=== PATIENT | male | born 1955 | race Caucasian/White ===

== ENCOUNTER 2017-10-30 14:24 | Emergency (ER) | payer MEDICAID, SELFPAY ==
[2017-10-30 14:25] VITALS: BP 147/99; PULSE 78; PULSE 83; RESP 16; TEMP 36.6; O2SAT 98; O2SAT 99; BMI 27.6
--- NOTE | 2017-10-30 14:42 | RAD_ITS ---
STUDY: X-RAY CHEST REASON FOR EXAM: Male, 62 years old. Palpitations TECHNIQUE: Single AP portable view of the chest. COMPARISON: June 13, 2013 FINDINGS: Pacemaker device on the left is stable The lungs are clear and hyper expanded. There is no demonstrated pleural abnormality. Normal size heart. Normal mediastinum and mady. Normal visualized pulmonary arteries. Normal visualized aortic arch and descending thoracic aorta. There are diffuse degenerative changes of the visualized thoracic spine. Normal visualized ribs, clavicles, and shoulders. There is no demonstrated abnormality of the visualized soft tissue structures of the upper abdomen. RAD/Chest 1 View (Portable) IMPRESSION: Degenerative changes, as described above. No demonstrated acute cardiopulmonary process. Electronically Signed: Rodriguez Damon MD at 15:33 EST , Service support ,
--- NOTE | 2017-10-30 14:42 | EKG12_ITS ---
Test Reason : PACER Blood Pressure : / mmHG Vent. Rate : 079 BPM Atrial Rate : 079 BPM P-R Int : 166 ms QRS Dur : 106 ms QT Int : 368 ms P-R-T Axes : 068 043 013 degrees QTc Int : 421 ms Normal sinus rhythm Normal ECG Confirmed by GISSLELE JEFFERSON, VALERIE ([id number]), newspaper or periodical editor YING PAULINO ([id number]) on 11/05/2017 3:58:20 PM Referred By: Luis Nielson Confirmed By:VALERIE PITTS MD
[2017-10-30] MEDS: 0.9% Normal Saline 1,000 ML 150 ML IV (15:00)
--- NOTE | 2017-10-30 15:00 | ED.RN ---
ICD BEING INTERROGATED CURRENTLY. 1500 Fany SUNG RN
[2017-10-30 15:08] LABS: Absolute Lymphocyte Count 1.31 X10^3/ul (0.83-4.51); Absolute Neutrophil Count 4.6 X10^3/uL (2.0-7.7); Basophil# 0.01 X10^3/uL; Basophil% 0.2 % (0-1); Eosinophil# 0.08 X10^3/uL; Eosinophils% 1.2 % (0-5); Hematocrit 47.5 % (40-54); Hemoglobin 16.9 g/dl (13.0-16.5); Lymphocyte # 1.31 X10^3/ul (4.0); Lymphocyte % 19.7 % (19-41); Mean Corp Hgb Conc 35.6 g/gl (32-36); Mean Corpuscular Hgb 34.4 pg (27.0-32.0); Mean Corpuscular Volume 96.7 fL (80-94); Mean Platelet Vol. 10.5 fl (6.2-12.0); Monocyte# 0.69 X10^3/uL; Monocyte% 10.4 % (0-10); Neutrophil # 4.56 X10^3/uL (2.7-7.7); Neutrophil % 68.3 % (47-70); POSITIVE COUNT NO; POSITIVE DIFFERENTIAL NO; POSITIVE MORPHOLOGY NO; Platelet Count 163 K/mm3 (150-450); RBC Distribution Width CV 13.8 % (11.6-14.6); Red Blood Count 4.91 M/mm3 (4.6-6.2); White Blood Count 6.7 K/mm3 (4.4-11.0)
[2017-10-30 15:23] LABS: Anion Gap 9 (5-15); BUN 17 mg/dL (7-18); BUN/Creat Ratio 20.2 RATIO (10-20); Chloride 104 mmol/L (98-107); Creatinine, Serum 0.84 mg/dL (0.70-1.30); EST Glomerular Filtration Rate 98 mL/min (>60); Est Glom Filt Rate - Afr Amer 119 mL/min (>60); Estimated Creatinine Clearance 107.37 ml/min; Glucose 123 mg/dL (70-110); Potassium 3.9 mmol/L (3.5-5.1); Sodium Level 138 mmol/L (136-145)
[2017-10-30 15:47] VITALS: BP 135/94; PULSE 87; RESP 16; O2SAT 98
--- NOTE | 2017-10-30 15:51 | ED.VISSUMM ---
- ER Visit Summary Date of Service: 10/30/17 Chief Complaint: [Fibrillator discharge] History of Present Illness: The patient is a 62 M [presents to the emergency department with complaint of his defibrillator discharging. Patient states he had his first episode 3 days ago on . Patient has had about 4 5 episodes of being shocked since noon today. Patient states that prior to going to bed last night he heard a buzzing sound from his pacer/defibrillator as is typical when the battery is low. Patient is not sure what kind of pacer defibrillator he has. Patient did not bring his card with him. Patient denies any chest pain or shortness of breath. He denies any recent illness.] Physical Examination: [HEENT-PERRLA, EOMI. Cranial nerves II through XII grossly intact. TMs clear. Mucous membranes moist. No adenopathy. Cardiovascular-regular rate and rhythm without murmur or ectopy Lungs-clear to auscultation, chest wall stable without crepitus or subcu emphysema Abdomen-normoactive bowel sounds, soft, nontender, no rebound or rigidity, no peritoneal signs. Extremities-intact ?4, normal range of motion, normal pulses, atraumatic] Test Results: [EKG obtained on arrival shows sinus rhythm with a ventricular rate of 79 bpm with no acute ST segment changes. CBC with differential was normal. Chemistries unremarkable. Troponin was less than 0.02. Chest x-ray showed nothing acute. Emergency Department Course and Treatment: [After initial evaluation the patient I immediately spoke with Dr. Glynn was covering for Dr. Nielson. Dr. Glynn sent a nurse down to interrogate the patient's pacer defibrillator. I was told to have the patient transferred to another facility where they have career development counselor available to further evaluate and treat patient. I was asked to start patient on an amiodarone bolus and drip.] Treatment Plan: [I discussed initially case with [facility] who stated that they did not have any ICU beds available and they had 9 patients waiting for a bed there therefore they would not be able to help me. Patient requested to go to [facility]. I discussed case with Dr. Weaver who accepted transfer patient.] Disposition: [Transfer to [facility]] Impression: [Ventricular tachycardia] This note was generated with [employer] dictation software. It may contain incorrect words, spelling, and punctuation that were not noted in review of the chart prior to signing ED Disposition - Plan for ED Patient: Chief Complaint: Chest Other Referrals: Shay Del Rosario III, MD [Primary Care Provider] -
--- NOTE | 2017-10-30 15:54 | ED.DCSUM_ITS ---
- ER Visit Summary Date of Service: 10/30/17 Chief Complaint: [Fibrillator discharge] History of Present Illness: The patient is a 62 M [presents to the emergency department with complaint of his defibrillator discharging. Patient states he had his first episode 3 days ago on . Patient has had about 4 5 episodes of being shocked since noon today. Patient states that prior to going to bed last night he heard a buzzing sound from his pacer/defibrillator as is typical when the battery is low. Patient is not sure what kind of pacer defibrillator he has. Patient did not bring his card with him. Patient denies any chest pain or shortness of breath. He denies any recent illness.] Physical Examination: [HEENT-PERRLA, EOMI. Cranial nerves II through XII grossly intact. TMs clear. Mucous membranes moist. No adenopathy. Cardiovascular-regular rate and rhythm without murmur or ectopy Lungs-clear to auscultation, chest wall stable without crepitus or subcu emphysema Abdomen-normoactive bowel sounds, soft, nontender, no rebound or rigidity, no peritoneal signs. Extremities-intact ?4, normal range of motion, normal pulses, atraumatic] Test Results: [EKG obtained on arrival shows sinus rhythm with a ventricular rate of 79 bpm with no acute ST segment changes. CBC with differential was normal. Chemistries unremarkable. Troponin was less than 0.02. Chest x-ray showed nothing acute. Emergency Department Course and Treatment: [After initial evaluation the patient I immediately spoke with Dr. Glynn was covering for Dr. Nielson. Dr. Glynn sent a nurse down to interrogate the patient's pacer defibrillator. I was told to have the patient transferred to another facility where they have supervisor spinning available to further evaluate and treat patient. I was asked to start patient on an amiodarone bolus and drip.] Treatment Plan: [I discussed initially case with [facility] who stated that they did not have any ICU beds available and they had 9 patients waiting for a bed there therefore they would not be able to help me. Patient requested to go to [facility]. I discussed case with Dr. Weaver who accepted transfer patient.] Disposition: [Transfer to [facility]] Impression: [Ventricular tachycardia] This note was generated with [employer] dictation software. It may contain incorrect words, spelling, and punctuation that were not noted in review of the chart prior to signing ED Disposition - Plan for ED Patient: Chief Complaint: Chest Other Referrals: Shay Del Rosario III, MD [Primary Care Provider] -
[2017-10-30 16:03] VITALS: BP 136/69; PULSE 79; RESP 13; O2SAT 98
[2017-10-30 16:27] VITALS: BP 132/86; PULSE 83; RESP 22; O2SAT 97
== END 2017-10-30 16:35 | disposition short-term general hospital (02) ==
PROVIDERS: Emergency Provider Emergency Medicine; Family Provider Family Medicine; PCP Family Medicine
DX: I47.2 Ventricular tachycardia (principal); Z95.810 Presence of automatic (implantable) cardiac defibrillator; I25.10 Atherosclerotic heart disease of native coronary artery without angina pectoris; I10 Essential (primary) hypertension; E78.00 Pure hypercholesterolemia, unspecified; I25.5 Ischemic cardiomyopathy; Z95.5 Presence of coronary angioplasty implant and graft; Z79.82 Long term (current) use of aspirin; Z79.899 Other long term (current) drug therapy; Z72.0 Tobacco use
CPT/HCPCS: 71010; 80048; 83735; 84484; 85025; 93005; 96374; 99285; J7030; A4216

== ENCOUNTER 2017-11-07 17:15 | Emergency (ER) | payer MEDICAID, SELFPAY ==
[2017-11-07 17:16] VITALS: BP 145/89; PULSE 66; RESP 19; TEMP 36.7; O2SAT 99; BMI 27.1
--- NOTE | 2017-11-07 17:27 | RAD_ITS ---
STUDY: X-RAY CHEST REASON FOR EXAM: Male, 62 years old. Recently replaced pacemaker/defibrillator firing with increased heart rate. TECHNIQUE: AP portable view of the chest on 2 films. COMPARISON: AP portable upright chest x-ray on 2 films October 30, 2017. FINDINGS: A new generator for the single lead cardiac pacemaker/AICD is seen in the left infraclavicular tissues. Grossly the lead is continuous, again extending to the right heart. The lungs are clear and deeply expanded. There is no demonstrated pleural abnormality. Normal size heart. Normal mediastinum and mady. Normal visualized pulmonary arteries. There is stable mild atherosclerotic calcification of the aortic arch. There are stable degenerative changes of the visualized thoracic spine. 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 There is no demonstrated abnormality of the visualized soft tissue structures of the upper abdomen. RAD/Chest 1 View (Portable) IMPRESSION: New cardiac pacer/AICD generator in the left infraclavicular tissues appears connected to the uninterrupted lead that again extends to the right heart. No acute infiltrate or CHF. Electronically Signed: Derrick Masterson MD at 18:17 EST , Service support ,
--- NOTE | 2017-11-07 17:27 | EKG12_ITS ---
Test Reason : Blood Pressure : / mmHG Vent. Rate : 065 BPM Atrial Rate : 065 BPM P-R Int : 196 ms QRS Dur : 108 ms QT Int : 414 ms P-R-T Axes : 071 057 022 degrees QTc Int : 430 ms Normal sinus rhythm Normal ECG Confirmed by LINDA JEFFERSON, BELLA ([id number]), editor school photograph YING PAULINO ([id number]) on 11/10/2017 2:42:48 PM Referred By: ZO/TREASURE Confirmed By:BELLA MCKEON MD
[2017-11-07 17:44] LABS: Absolute Lymphocyte Count 1.61 X10^3/ul (0.83-4.51); Absolute Neutrophil Count 5.7 X10^3/uL (2.0-7.7); Basophil# 0.02 X10^3/uL; Basophil% 0.2 % (0-1); Eosinophil# 0.04 X10^3/uL; Eosinophils% 0.5 % (0-5); Hematocrit 48.2 % (40-54); Hemoglobin 16.8 g/dl (13.0-16.5); Lymphocyte # 1.61 X10^3/ul (4.0); Lymphocyte % 18.3 % (19-41); Mean Corp Hgb Conc 34.9 g/gl (32-36); Mean Corpuscular Hgb 34.3 pg (27.0-32.0); Mean Corpuscular Volume 98.4 fL (80-94); Monocyte# 1.36 X10^3/uL; Monocyte% 15.5 % (0-10); Neutrophil # 5.74 X10^3/uL (2.7-7.7); Neutrophil % 65.2 % (47-70); Platelet Count 238 K/mm3 (150-450); RBC Distribution Width CV 13.8 % (11.6-14.6); RBC Distribution Width SD 49.4 fl (35.1-43.9); White Blood Count 8.8 K/mm3 (4.4-11.0)
[2017-11-07 17:47] LABS: POSITIVE COUNT NO; POSITIVE DIFFERENTIAL NO; POSITIVE MORPHOLOGY NO
[2017-11-07] MEDS: 0.9% Normal Saline 1,000 ML 150 ML IV (17:56)
[2017-11-07 18:10] LABS: Anion Gap 8 (5-15); BUN 16 mg/dL (7-18); BUN/Creat Ratio 16.6 RATIO (10-20); Calcium,Total 9.2 mg/dL (8.5-10.1); Chloride 104 mmol/L (98-107); Creatinine, Serum 0.96 mg/dL (0.70-1.30); EST Glomerular Filtration Rate 84 mL/min (>60); Est Glom Filt Rate - Afr Amer 102 mL/min (>60); Estimated Creatinine Clearance 93.95 ml/min; Glucose 118 mg/dL (70-110); Magnesium 2.4 mg/dL (1.8-2.4); Potassium 3.8 mmol/L (3.5-5.1); Sodium Level 139 mmol/L (136-145)
--- NOTE | 2017-11-07 18:14 | ED.VISSUMM ---
- ER Visit Summary Date of Service: 11/07/17 Chief Complaint: Defibrillator firing History of Present Illness: The patient is a 62 M who was seen on October 30 for his defibrillator firing. At that time evaluation revealed that he was at the end of battery life and was having runs of V. tach. He was sent [facility]. Patient states his entire pacemaker was changed out and he was sent home on November 01. He states he had a pacer override his tachycardia on November 01. He then was shocked on November 03 and multiple times on November 04. He states he has been shocked multiple times today. Patient was supposed to see Dr. Nielson in the office today but had to cancel. He is scheduled to see him next week. Physical Examination: Vital signs are unremarkable. Head neck examination is normal. Heart is regular rate and rhythm. Lungs are clear. He has bruising to the left upper chest from his recent pacemaker change. Abdomen is soft nontender. Test Results: EKG is sinus at 65 with no sign of acute ischemia. CBC reveals a hemoglobin of 16.8, but otherwise normal. Chemistry studies are normal. Magnesium is normal. Troponin is negative. Portable chest x-ray reveals pacer line to be intact. Lungs are clear. Emergency Department Course and Treatment: Patient was ordered for an annual bolus and drip here. He is remained in sinus rhythm. I spoke with Dr. Arellano, on-call for Dr. Neilson. He advised the patient needs to go back to [facility] where the EP doctor is available. [place] is on page at this time. Treatment Plan: [] Disposition: Transfer Impression: 1. Defibrillator firing This note was generated with [employer] dictation software. It may contain incorrect words, spelling, and punctuation that were not noted in review of the chart prior to signing ED Disposition - Plan for ED Patient: Chief Complaint: Chest Other Referrals: Shay Del Rosario III, MD [Primary Care Provider] -
[2017-11-07 18:15] VITALS: BP 122/74; PULSE 78; RESP 20; O2SAT 98
[2017-11-07 18:18] LABS: International Normalized Ratio 1.1
[2017-11-07 18:19] LABS: Partial Thromboplast Time 28.8 Seconds (24.1-36.2)
[2017-11-07 19:00] VITALS: BP 120/69; PULSE 66; RESP 15; O2SAT 96
[2017-11-07 19:51] VITALS: BP 125/83; PULSE 69; RESP 18; O2SAT 96
[2017-11-07 20:06] VITALS: BP 118/74; PULSE 70; RESP 18; O2SAT 94
--- NOTE | 2017-11-07 20:06 | ED.RN ---
REPORT TO [facility]. PT SKIN P/W/D, RESP EVEN AND UNLABORED, PT A&O X 3, NO DISTRESS NOTED.
--- NOTE | 2017-11-07 20:07 | ED.RN ---
Addendum entered by oLida Chapa 11/07/17 20:08: HIREN OCCURRED AT 1935 Original Note: PT HAD 13 BEAT RUN OF HIREN, DR. PATHAK AWARE AND STATES TO INCREASE AMIODARONE TO 1 MG/MIN.
== END 2017-11-07 20:21 | disposition short-term general hospital (02) ==
PROVIDERS: Emergency Provider Emergency Medicine; Family Provider Family Medicine; PCP Family Medicine
DX: Z45.02 Encounter for adjustment and management of automatic implantable cardiac defibrillator (principal); I25.10 Atherosclerotic heart disease of native coronary artery without angina pectoris; I10 Essential (primary) hypertension; E78.00 Pure hypercholesterolemia, unspecified; I47.2 Ventricular tachycardia; I25.5 Ischemic cardiomyopathy; Z79.899 Other long term (current) drug therapy; Z72.0 Tobacco use
CPT/HCPCS: 71045; 80048; 83735; 84484; 85025; 85610; 85730; 93005; 96361; 96365; 96374; 96376; 99285; A4216

== ENCOUNTER → 2018-02-19 12:27 | Outpatient (CLI) | payer MEDICAID, SELFPAY ==
[2018-02-19 13:17] LABS: AST(SGOT) 27 U/L (15-37); Alanine Aminotransfer ALT/SGPT 28 U/L (16-61); Albumin, Serum 3.6 g/dL (3.2-5.0); Alkaline Phosphatase 95 U/L (45-117); Bilirubin, Direct 0.11 mg/dL (0.00-0.30); Cholesterol 180 mg/dL (200); Globulin 3.8 g/dL (2.2-4.2); High Density Lipoprotein 54 mg/dL; Protein, Total 7.4 g/dL (6.4-8.2); Triglycerides 106 mg/dL; Very Low Density Lipoprotein 21 mg/dL (5-40)
== END ==
PROVIDERS: Family Provider Family Medicine; PCP Family Medicine; Visit Provider Internal Medicine Cardiovascular Disease
DX: E78.5 Hyperlipidemia, unspecified (principal)
CPT/HCPCS: 36415; 80061; 80076

== ENCOUNTER → 2018-12-22 12:26 | Outpatient (CLI) | payer MEDICAID, SELFPAY ==
[2018-12-22 13:16] LABS: AST(SGOT) 77 U/L (15-37); Alanine Aminotransfer ALT/SGPT 123 U/L (16-61); Albumin, Serum 3.9 g/dL (3.2-5.0); Alkaline Phosphatase 87 U/L (45-117); Bilirubin, Direct 0.17 mg/dL (0.00-0.30); Cholesterol 148 mg/dL (200); Globulin 3.5 g/dL (2.2-4.2); High Density Lipoprotein 45 mg/dL; Protein, Total 7.4 g/dL (6.4-8.2); Triglycerides 99 mg/dL; Very Low Density Lipoprotein 20 mg/dL (5-40)
== END ==
PROVIDERS: Nurse Practitioner Family; Family Provider Family Medicine; PCP Family Medicine; Referring Provider Internal Medicine Cardiovascular Disease; Visit Provider Internal Medicine Cardiovascular Disease
DX: E78.5 Hyperlipidemia, unspecified (principal)
CPT/HCPCS: 36415; 80061; 80076

== ENCOUNTER → 2019-01-07 12:48 | Outpatient (CLI) | payer MEDICAID, SELFPAY ==
[2018-12-31 13:34] VITALS: BMI 29.2
--- NOTE | 2019-01-08 11:44 | PFT ---
INTRODUCTION: The patient is a 63-year-old male that presents for pulmonary function studies secondary to a diagnosis of amiodarone use. Respiratory therapy reports good patient effort. Bronchodilators were used during testing. INTERPRETATION: Forced expiration spirometry demonstrates the presence of a mild large airways obstructive ventilatory defect. There was no significant response to aerosolized bronchodilators, based upon strict ATS criteria. Spirograms are of fair quality and do not plateau indicating slow emptying of the lungs. Body plethysmography was performed and reveals an elevated RV to 135% of predicted, indicative of underlying air trapping. Diffusing capacity by single breath CO is within normal limits at 79% of predicted. IMPRESSION: Irreversible mild large airways obstructive ventilatory defect with associated air trapping.
== END ==
PROVIDERS: Family Provider Family Medicine; PCP Family Medicine; Referring Provider Internal Medicine Cardiovascular Disease; Visit Provider Internal Medicine Cardiovascular Disease
DX: I25.10 Atherosclerotic heart disease of native coronary artery without angina pectoris (principal); I25.5 Ischemic cardiomyopathy; I47.2 Ventricular tachycardia; Z95.810 Presence of automatic (implantable) cardiac defibrillator
CPT/HCPCS: 94060; 94726; 94729

== ENCOUNTER → 2019-01-20 12:08 | Outpatient (CLI) | payer MEDICAID, SELFPAY ==
[2018-12-31 13:34] VITALS: BMI 29.2
--- NOTE | 2019-01-20 12:09 | STEWCON_ITS ---
Reason For Study: CAD Stress Results Protocol: Dobutamine Stress Echo Maximum Predicted HR: 158 bpm Target HR: 134 bpm % Maximum Predicted HR: 83 % DurationHeart Rate Stage (mm:ss) (bpm) BP Comment Baseline 65 140/80No Chest Pain; Definity 0.7 ML Given DSE 10 MCG 3:17 71 133/89No Chest Pain DSE 20 MCG 3:00 93 142/64No Chest Pain DSE 30 MCG 3:00 102 132/61No Chest Pain; Atropine 0.25 MG IVP DSE 40 MCG 4:28 131 105/55No Chest Pain; Atropine 0.75 MG IVP Recovery 82 119/63No Chest Pain Stress Duration: 13:45 mm:ss Maximum Stress HR: 131 bpm METS: 1 Baseline Echocardiogram Findings The estimated ejection fraction is 45 %. Stress Echo Wall motion Data Resting WM Intermediate WM Stress WM Resting Wall Motion Wall Motion Stress Basal inferoseptal: Severely Anterio-Basal: Severely Hypokinetic. hypokinetic. Mid-Posterior: Severely Basal anteroseptal: Severely Hypokinetic. Hypokinetic. EKG Data Normal intervals are noted. The patient was titrated from 10 mcg to a maximum of 40 mcg of dobutamine during the stress. The maximum heart rate attained was 134 beats per minute. This was 84% of maximum predicted heart rate. During dobutamine infusion, there were no ST or T wave changes noted to suggest ischemia. No clinical angina was noted. Interpretation Summary The estimated ejection fraction is 45 %. Abnormal, adequate, dobutamine echocardiogram. Positive for ischemia by echocardiographic criteria. Patient had baseline inferior posterior hypokinesis which gave way to significant anterior and anteroseptal hypokinesis at peak infusion. No anginal symptoms noted. Rare PVCs noted. Appropriate blood pressure response to dobutamine. Final LVEF of 35%. Poor echo windows requiring Definity agent may make interpretation suboptimal. Test terminated due to the attainment of target heart rate. No complications. The study was technically difficult. Contrast injection was performed. Ordering Physician: Luis Nielson Referring Physician: Shay Del Rosario III Performed By: Caron Casper, OMER, RVT
--- NOTE | 2019-01-20 14:07 | RAD_ITS ---
STUDY: X-RAY CHEST REASON FOR EXAM: Male, 63 years old. Coronary artery disease TECHNIQUE: PA and lateral views of the chest. COMPARISON: 11/07/2017 chest x-ray FINDINGS: There is a left-sided pacer with the lead overlying the heart. The lungs are clear and expanded. There is no demonstrated pleural abnormality. Normal size heart. Normal mediastinum and mady. Normal visualized pulmonary arteries. Normal visualized aortic arch and descending thoracic aorta. There are diffuse degenerative changes of the visualized thoracic spine. Normal visualized ribs, clavicles, and shoulders. There is no demonstrated abnormality of the visualized soft tissue structures of the upper abdomen. RAD/Chest PA and Lateral IMPRESSION: Degenerative changes, as described above. No demonstrated acute cardiopulmonary process. Left-sided pacer defibrillator. Electronically Signed: Reanna Mullins MD at 15:03 EDT Tel , Service support ,
[2019-01-20 14:56] LABS: Hematocrit 48.5 % (40-54); Hemoglobin 16.6 g/dl (13.0-16.5); Mean Corp Hgb Conc 34.2 g/gl (32-36); Mean Corpuscular Hgb 34.7 pg (27.0-32.0); Mean Corpuscular Volume 101.5 fL (80-94); Mean Platelet Vol. 10.6 fl (6.2-12.0); Platelet Count 217 K/mm3 (150-450); RBC Distribution Width CV 13.3 % (11.6-14.6); RBC Distribution Width SD 49.2 fl (35.1-43.9); Red Blood Count 4.78 M/mm3 (4.6-6.2); White Blood Count 7.8 K/mm3 (4.4-11.0)
[2019-01-20 14:57] LABS: International Normalized Ratio 1.2; Prothrombin Time (Protime)PT. 14.5 SECONDS (11.7-14.9)
[2019-01-20 14:58] LABS: Partial Thromboplast Time 29.6 Seconds (24.1-36.2)
[2019-01-20 15:09] LABS: Anion Gap 4 (5-15); BUN 22 mg/dL (7-18); BUN/Creat Ratio 24.2 RATIO (10-20); Calcium,Total 8.7 mg/dL (8.5-10.1); Chloride 107 mmol/L (98-107); Creatinine, Serum 0.91 mg/dL (0.70-1.30); EST Glomerular Filtration Rate 89 mL/min (>60); Est Glom Filt Rate - Afr Amer 108 mL/min (>60); Glucose 105 mg/dL (74-106); Potassium 3.9 mmol/L (3.5-5.1); Sodium Level 139 mmol/L (136-145)
[2019-01-20 15:11] LABS: Scan Indicated on CBC? Y/N NO
== END ==
PROVIDERS: Internal Medicine Cardiovascular Disease; Family Provider Family Medicine; PCP Family Medicine; Referring Provider Internal Medicine Cardiovascular Disease; Visit Provider Internal Medicine Cardiovascular Disease
DX: I25.10 Atherosclerotic heart disease of native coronary artery without angina pectoris (principal); I25.5 Ischemic cardiomyopathy; I47.2 Ventricular tachycardia; Z95.810 Presence of automatic (implantable) cardiac defibrillator; Z95.5 Presence of coronary angioplasty implant and graft
CPT/HCPCS: 36415; 71046; 80048; 85027; 85610; 85730; 93017; 93350; J7040; Q9957; A4216; C8928

== ENCOUNTER 2019-01-21 07:40 | Day surgery (SDC) | payer MEDICAID, SELFPAY ==
[2018-12-31 13:34] VITALS: BMI 29.2
[2019-01-20 15:47] VITALS: BMI 29.2
--- NOTE | 2019-01-21 10:27 | CL.D_ITS ---
Patient Name: FRANCIS MORTON Study Date: 01/21/2019 Performing: Luis Nielson MD Ht: 74.01 inches 188 cm : 1955 Wt: 227.08 lbs 103 kg Age: 63 Gender: male BSA: 2.29 PROCEDURE(S) PERFORMED [id number]/LV CLINICAL PROFILE AND INDICATIONS Indications: Stable Known CAD, LV Dysfunction Heart Failure: NYHA Class: 1, Newly Diagnosed: No, Heart Failure Type: Systolic Stress/Imaging Stress Echocardiogram: Yes Result: Positive Low RiskStress Echocardiogram: Positiv e Low Risk Angina Classification Anginal Classification w/in 2 Weeks: No symptoms CAD Presentations: No Sxs, no angina. Other: Dyspnea on exertion Comorbidities/Risk Factors: Hypertension Dyslipidemia Prior CHF Prior [place] Prior PCI CONCLUSIONS Double vessel CAD of the distal RCA ISR and mid LAD at bifurcation of large DIAG#1 branch. RECOMMENDATIONS Management as per referring Hay Farmer Will obtain old film from [place] from 2 years ago to see if LAD lesion has worsened. Apparently pt underwent FFR of this portion of LAD and was found to be 0.81 so no intervention was performed. He h as had no AICD discharges since his cath at [place]. Intervention of this lesion is at moderate risk of the stent covering over DIAG, as well as eccentric calcium in proximal LAD sequeing into mid LAD lesion. I believe we could place the stent at the os tium of the mid LAD with minimal encroachment into DIAG, but pt has no anginal symptoms or change in his exercise capacity. I will obtain old films from [place] to compare mid LAD stenosis; if it appears to be worse, then augusta l return for elective PCI of LAD with double wires. Manual sheath removal. Consier PCI of distal RCA for ISR. Continue lifelong asa/plavix. DESCRIPTION OF PROCEDURE The patient arrived to the procedure lab. The risks and benefits of the procedure as well as a full d escription of our services here and current unavailability of surgical backup were fully explained to the patient and/or their significant other prior to the catheterization. The Timeout was completed, verifying the correct patient and procedure. The patient's procedural site was prepped and draped in the usual fashion. Local anesthetic was given subcutaneously to right groin region with Lidocaine 2%. Using a modified Seldinger technique, arterial access was obtained via the right femoral artery, a 4 Fr sheath was inserted Left Coronary Artery selective angiography was performed in multiple views us ing a 4 Fr. JL5 catheter. Right Coronary Artery selective angiography was then performed in multiple views using a 4 Fr. 3DRC catheter. Left Ventriculography was performed in [place] projection using a 4 Fr . Pigtail catheter. LV to AO pullback pressures were then recorded.The arterial sheath was pulled and manual compression applied until hemostasis is achieved. CORONARY ANGIOGRAPHY DOMINANCE: Right Dominant LEFT HEART ASSESSMENT Left Ventricular Ejection Fraction: by LV Gram 45 % Inferior Basal Akinesis. Anterior Hypokinesis - Mild Depressed Left Ventricular systolic function LVEDP: 14 mmHg Elevated Left Ventricular End Diastolic Pressure LEFT MAIN: Angiographically normal LEFT ANTERIOR DECENDING ARTERY: PROX LAD: Moderate calcification MID LAD: 65 % Stenosis, 50 % Stenosis CIRCUMFLEX ARTERY: Mild luminal irregularities less than 30% MID CIRC: Moderate calcification RIGHT CORONARY ARTERY: PROX RCA: Mild luminal irregularities less than 30% DISTAL RCA: Instent restenosis 75 % COMPLICATIONS No Complications PROCEDURE MEDICATIONS Versed 1 mg IV Oxygen: 2 L/min via nasal cannula Benadryl 25 mg IV @ 01/21/2019 09:36:08 Solu-cortef 100 mg IV 01/21/2019 09:36:20 SUMMARY OF HEMODYNAMIC DATA Time AIR REST ECG 08:12:05 AO 154/78 (108) SA 09:48:09 LV 138/-2, 15 09:55:39 LV 141/-8, 15 09:55:46 LVp 139/-10, 14 09:55:56 AOp 138/69 (98) 09:56:01 Signed By Luis Nielson MD On 01/21/2019 10:26:15 Luis Nielson MD
[2019-01-21 11:06] LABS: AST(SGOT) 46 U/L (15-37); Alanine Aminotransfer ALT/SGPT 84 U/L (16-61); Albumin, Serum 3.6 g/dL (3.2-5.0); Alkaline Phosphatase 80 U/L (45-117); Cholesterol 147 mg/dL (200); Globulin 3.1 g/dL (2.2-4.2); High Density Lipoprotein 40 mg/dL; Protein, Total 6.7 g/dL (6.4-8.2); Triglycerides 82 mg/dL; Very Low Density Lipoprotein 16 mg/dL (5-40)
== END 2019-01-21 14:45 | disposition home or self-care (01) ==
LOC: CLSP 07:41
PROVIDERS: Family Provider Family Medicine; PCP Family Medicine; Referring Provider Internal Medicine Cardiovascular Disease; Visit Provider Internal Medicine Cardiovascular Disease
DX: T82.858A Stenosis of other vascular prosthetic devices, implants and grafts, initial encounter (principal); Y84.9 Medical procedure, unspecified as the cause of abnormal reaction of the patient, or of later complication, without mention of misadventure at the time of the procedure; I25.5 Ischemic cardiomyopathy; E78.5 Hyperlipidemia, unspecified; I47.2 Ventricular tachycardia; I25.10 Atherosclerotic heart disease of native coronary artery without angina pectoris; I25.2 Old myocardial infarction; F17.200 Nicotine dependence, unspecified, uncomplicated; Z79.899 Other long term (current) drug therapy; Z95.810 Presence of automatic (implantable) cardiac defibrillator; Z79.82 Long term (current) use of aspirin; Z95.5 Presence of coronary angioplasty implant and graft
CPT/HCPCS: 80061; 80076; 93458; 99152; 99153; J7040; Q9967; C1769; C1894

== ENCOUNTER → 2019-02-12 10:47 | Outpatient (CLI) | payer MEDICAID, SELFPAY ==
[2019-01-20 15:47] VITALS: BMI 29.2
[2019-02-12 12:16] LABS: AST(SGOT) 44 U/L (15-37); Alanine Aminotransfer ALT/SGPT 75 U/L (16-61); Albumin, Serum 3.6 g/dL (3.2-5.0); Alkaline Phosphatase 77 U/L (45-117); Globulin 3.6 g/dL (2.2-4.2); Protein, Total 7.2 g/dL (6.4-8.2)
== END ==
PROVIDERS: Family Provider Family Medicine; PCP Family Medicine; Referring Provider Internal Medicine Cardiovascular Disease; Visit Provider Internal Medicine Cardiovascular Disease
DX: R94.5 Abnormal results of liver function studies (principal)
CPT/HCPCS: 36415; 80076

== ENCOUNTER 2019-02-17 08:08 | Day surgery (SDC) | payer MEDICAID, SELFPAY ==
[2019-01-20 15:47] VITALS: BMI 29.2
[2019-02-16 09:36] VITALS: BMI 29.2
[2019-02-17] VITALS (41 sets, daily range): BP systolic 104–155; BP diastolic 39–86; PULSE 61–78; RESP 15–23; TEMP 36.4–36.6; O2SAT 91–97; BMI 30.8; BMI 29.2
--- NOTE | 2019-02-17 08:59 | PCM.HP.BLA ---
Problem List (1) Atherosclerotic heart disease of [place] coronary artery without angina pectoris Status: Chronic Qualifiers: [place] vs. transplanted heart: [place] heart Qualified Code(s): I25.10 - Atherosclerotic heart disease of [place] coronary artery without angina pectoris Comment: 12/28/1999 distal RCA was thrombectomized and stent placed; 04/01/2000 PTCA of distal RCA and ostium of the PDA for in-stent stenosis. [facility] 11/2005. (2) Benign hypertension Status: Chronic (3) History of coronary artery stent placement Status: Chronic Comment: 12/28/1999 distal RCA was thrombectomized and stent placed; 04/01/2000 PTCA of distal RCA and ostium of the PDA for in-stent stenosis. (4) Hyperlipidemia Status: Chronic (5) Ischemic cardiomyopathy Status: Chronic (6) Presence of automatic (implantable) cardiac defibrillator Status: Chronic Comment: ICD Implant: 11/2005; ICD generator replacement 08/23/2010 History and Physical Date of Admission: 02/17/19 Details: Details: Details: FRANCIS MORTON, is a 64 M who presents today to undergo stenting to his LAD. He was in our office in Dec Underwent a dobutamine stress echocardiogram which was Positive by ischemia per echocardiographic criteria. He underwent a heart catheterization on January 21, 2019 which demonstrated double vessel CAD of the right coronary ISR and mid LAD bifurcation of the diagonal [address] Nielson wanted to obtain his old heart catheterization films from [place] that was 2 years ago to see if his LAD lesion had worsened. Films were compared, he is scheduled to undergo stenting of his LAD today. Patient does have a history of coronary artery disease, ischemic cardiomyopathy, inducible ventricular tachycardia with recent VT storm and ICD placement, hypertension and hyperlipidemia. Patient was in the emergency room on October 30, 2017 for a VT storm. He was transferred to [facility] where he underwent heart catheterization and ICD placement. He was discharged home on amiodarone at 400 mg twice a day and has since decreased this to 200 mg twice a day. He was then readmitted to the hospital on November 07 for ICD firing. He was transferred again to [facility]. They did not make any changes in his medications. Patient does not have any chest discomfort. He does not have any worsening shortness of breath. He does occasionally have lightheadedness dizziness. He does not have any lower extremity edema. He has not had any discharges from his device. Intake Vital Signs See documentation from the heart catheterization. Allergies ezetimibe [From Zetia] Adverse Reaction (Severe, Verified 12/24/18 15:22) Myalgias Iodine and Iodide Containing Produc Adverse Reaction (Severe, Verified 12/24/18 15:22) Rash Guewbpj-Byn-Ttw Reductase Inhibitor Adverse Reaction (Severe, Verified 12/24/18 15:22) Elevated Liver Enzymes Medications aspirin 81 mg tablet,delayed release 81 mg PO QDAY 10/14/17 [History Confirmed 12/31/18] nitroglycerin 0.4 mg sublingual tablet 0.4 mg SUBLINGUAL Q5M PRN #25 tab 05/08/18 [Rx Confirmed 12/31/18] pravastatin 20 mg tablet 20 mg PO QHS #90 tab 08/10/18 [Rx Confirmed 12/31/18] metoprolol succinate ER 50 mg tablet,extended release 24 hr 50 mg PO ONCE #90 tab 11/11/18 [Rx Confirmed 12/31/18] amiodarone 200 mg tablet 200 mg PO DAILY #90 tab 11/26/18 [Rx Confirmed 12/31/18] lisinopril 20 mg tablet 20 mg PO QDAY #90 tab 12/31/18 [Rx Confirmed 12/31/18] REPLACED BY [facility] Medical History Hyperlipidemia (Chronic) Atherosclerotic heart disease of [place] coronary artery without angina pectoris (Chronic) Ischemic cardiomyopathy (Chronic) Ventricular tachycardia (Chronic) Premature heartbeats (Chronic) Benign hypertension (Chronic) Tobacco user (Chronic) History of alcoholism (Chronic) History of echocardiogram (Chronic 04/03/17) History of stress test (Chronic 02/16/10) Surgical History Presence of automatic (implantable) cardiac defibrillator (Chronic 10/31/17) History of coronary artery stent placement (Chronic) History of left heart catheterization (LHC) (Chronic) Hx of knee surgery (Chronic) Family History Grandmother Myocardial infarction Grandfather Myocardial infarction Social History Smoking Status: Current every day smoker how long ago did patient quit smokin11/2017 alcohol intake: current alcohol intake frequency: a few times a week Alcohol type: beer substance use type: does not use caffeine: No what type of physical activity do you participate in: bicycling frequency: 1-2 times per week duration: < 15 minutes/day seatbelt use: always do you feel safe at home: Yes ROS Const Const: Positive for other (Feels well. Liver enzymes are up again.); negative for fatigue, weakness, body ache, fever(s), headache(s), chills, frequent falls, night sweats, daytime sleepiness, difficulty sleeping, excessive sweating, weight gain, weight loss, increased appetite, poor appetite or anorexia Eyes Eyes: Negative for blind spots, loss of peripheral vision, transient loss of vision, blurry vision, change in vision, double vision, floaters, tunnel vision or other ENT ENT: Negative for headache(s), dizziness, hearing loss, tinnitus, Nosebleed/epistaxis, balance problems, post nasal drip, lip swelling, tongue swelling, bleeding gums, hoarseness, neck pain, dry mouth or other Cardio Chest Pain: No Palpitations: No Edema: None Muscle aches with walking: None Resp Respiratory: Negative for SOB with activity, SOB at rest, SOB orthopnea\SOB lying down, Cough, Coughing up blood/hemoptysis, chest congestion, pain on inspiration, snoring, stridor, wheezing, crackles, paroxysmal nocturnal dyspnea or other GI GI: Negative nausea, vomiting, heartburn, constipation, belching, bloating, cramping, vomiting blood/hematemesis, bright, red blood in stools, black,tarry stools, loose stools, Difficulty Swallowing or other : Negative for hematuria, frequent nighttime urination/ nocturia, erectile dysfunction or abnormal vaginal bleeding Musc Musc: Negative for muscle aches/ myalgia, muscle weakness, joint pain or balance problems Skin Skin: Negative redness, non-healing lesions, rash, unusual bruising, skin ulcer, wounds, jaundice or other Neuro Neuro: Negative for dizziness, lightheadedness, near syncope, syncope, orthostatic symptoms, frequent falls, headache(s), weakness, confusion, memory loss, restless legs, blurry vision, double vision, vertigo, seizures, lack of coordination or other Flaco Hematologic/Lymphatic: Negative for easy bleeding, easy bruising, enlarged lymph nodes or other Endo Endo: Negative for fatigue, cold intolerance, heat intolerance, excessive sweating, flushing, increased thirst/drinking, increased hunger, hair loss, hair growth or other Psych Psych: Negative for anxiety, depression, thoughts of harming anyone, thoughts of harming yourself, visual hallucinations, panic attacks or audible hallucinations Allergy Allergy/Immunology: Negative for throat swelling, Negative for tongue swelling, Negative for hives, Negative for rash, Negative for lip swelling Cardiology Exam Const Appearance: cooperative, healthy appearing and no acute distress Nutritional Appearance: well nourished Orientation: alert, oriented x3 and oriented to person Head Head: normal to inspection, normocephalic and atraumatic Nose: external nose normal Face and Sinus: face symmetric Mouth: oral mucosae normal Eyes General: appearance normal, both eyes and all related structures Eyelids: eyelids normal Conjunctivae: conjunctivae normal Pupils: PERRL and normal by confrontation EOM: EOM intact bilaterally Neck Neck: normal visual inspection and full ROM Carotids: normal carotid upstroke Chest Chest inspection: normal inspection of the chest Auscultation: Bilateral: Clear to Auscultation Cardio Palpation: normal PMI Rate: regular rate Rhythm: regular rhythm Heart sounds: S1 normal and S2 normal GI GI: normal to inspection, no hepatosplenomegaly and bowel sounds present Neuro General: alert, awake, oriented x3, CN's II-XI intact bilaterally and moves all extremities Skin Skin: no rashes or lesions noted Extremities Pulses: Normal: Right Femoral Pulse, Left Femoral Pulse, Right Dorsalis Pedis Pulse, Left Dorsalis Pedis Pulse, Right Posterior Tibial Pulse, Left Posterior Tibial Pulse, Right Radial Pulse, Left Radial Pulse Lower Extremity Edema: None: Bilateral Psych Psychological: normal affect Assessment & Plan 1. Coronary artery disease: Patient is in the process of undergoing a heart catheterization for stenting of his LAD today. To remain on aggressive medical management. He will need to remain on his Plavix. He will follow-up accordingly in the office after discharge from the hospital. 2. Ischemic cardiomyopathy: Patient does not have any symptoms of congestive heart failure. He will continue on his beta-lilliana, TANIYA inhibitor. We will continue to monitor by echocardiograms as deemed appropriate. 3. Ventricular tachycardia: Patient has not had any further discharges from his device. He will continue with his amiodarone. We will need to continue to monitor his thyroid, hepatic functions closely in addition to his pulmonary function test and chest x-rays. 4. ICD placement: Patient will continue to follow with regular ICD interrogations. 5. Hyperlipidemia: Patient will continue with current low-dose statin. His lipids will continue to be monitored.
--- NOTE | 2019-02-17 09:09 | HP.PCM_ITS ---
Problem List (1) Atherosclerotic heart disease of [place] coronary artery without angina pectoris Status: Chronic Qualifiers: [place] vs. transplanted heart: [place] heart Qualified Code(s): I25.10 - Atherosclerotic heart disease of [place] coronary artery without angina pectoris Comment: 12/28/1999 distal RCA was thrombectomized and stent placed; 04/01/2000 PTCA of distal RCA and ostium of the PDA for in-stent stenosis. [facility] 11/2005. (2) Benign hypertension Status: Chronic (3) History of coronary artery stent placement Status: Chronic Comment: 12/28/1999 distal RCA was thrombectomized and stent placed; 04/01/2000 PTCA of distal RCA and ostium of the PDA for in-stent stenosis. (4) Hyperlipidemia Status: Chronic (5) Ischemic cardiomyopathy Status: Chronic (6) Presence of automatic (implantable) cardiac defibrillator Status: Chronic Comment: ICD Implant: 11/2005; ICD generator replacement 08/23/2010 History and Physical Date of Admission: 02/17/19 Details: Details: Details: FRANCIS MORTON, is a 64 M who presents today to undergo stenting to his LAD. He was in our office in Dec Underwent a dobutamine stress echocardiogram which was Positive by ischemia per echocardiographic criteria. He underwent a heart catheterization on January 21, 2019 which demonstrated double vessel CAD of the right coronary ISR and mid LAD bifurcation of the diagonal [address] Nielson wanted to obtain his old heart catheterization films from [place] that was 2 years ago to see if his LAD lesion had worsened. Films were compared, he is scheduled to undergo stenting of his LAD today. Patient does have a history of coronary artery disease, ischemic cardiomyopathy, inducible ventricular tachycardia with recent VT storm and ICD placement, hypertension and hyperlipidemia. Patient was in the emergency room on October 30, 2017 for a VT storm. He was transferred to [facility] where he underwent heart catheterization and ICD placement. He was discharged home on amiodarone at 400 mg twice a day and has since decreased this to 200 mg twice a day. He was then readmitted to the hospital on November 07 for ICD firing. He was transferred again to [facility]. They did not make any changes in his medications. Patient does not have any chest discomfort. He does not have any worsening shortness of breath. He does occasionally have lightheadedness dizziness. He does not have any lower extremity edema. He has not had any discharges from his device. Intake Vital Signs See documentation from the heart catheterization. Allergies ezetimibe [From Zetia] Adverse Reaction (Severe, Verified 12/24/18 15:22) Myalgias Iodine and Iodide Containing Produc Adverse Reaction (Severe, Verified 12/24/18 15:22) Rash Yrjwput-Kyg-Ysq Reductase Inhibitor Adverse Reaction (Severe, Verified 12/24/18 15:22) Elevated Liver Enzymes Medications aspirin 81 mg tablet,delayed release 81 mg PO QDAY 10/14/17 [History Confirmed 12/31/18] nitroglycerin 0.4 mg sublingual tablet 0.4 mg SUBLINGUAL Q5M PRN #25 tab 05/08/18 [Rx Confirmed 12/31/18] pravastatin 20 mg tablet 20 mg PO QHS #90 tab 08/10/18 [Rx Confirmed 12/31/18] metoprolol succinate ER 50 mg tablet,extended release 24 hr 50 mg PO ONCE #90 tab 11/11/18 [Rx Confirmed 12/31/18] amiodarone 200 mg tablet 200 mg PO DAILY #90 tab 11/26/18 [Rx Confirmed 12/31/18] lisinopril 20 mg tablet 20 mg PO QDAY #90 tab 12/31/18 [Rx Confirmed 12/31/18] [facility] Medical History Hyperlipidemia (Chronic) Atherosclerotic heart disease of [place] coronary artery without angina pectoris (Chronic) Ischemic cardiomyopathy (Chronic) Ventricular tachycardia (Chronic) Premature heartbeats (Chronic) Benign hypertension (Chronic) Tobacco user (Chronic) History of alcoholism (Chronic) History of echocardiogram (Chronic 04/03/17) History of stress test (Chronic 02/16/10) Surgical History Presence of automatic (implantable) cardiac defibrillator (Chronic 10/31/17) History of coronary artery stent placement (Chronic) History of left heart catheterization (LHC) (Chronic) Hx of knee surgery (Chronic) Family History Grandmother Myocardial infarction Grandfather Myocardial infarction Social History Smoking Status: Current every day smoker how long ago did patient quit smokin11/2017 alcohol intake: current alcohol intake frequency: a few times a week Alcohol type: beer substance use type: does not use caffeine: No what type of physical activity do you participate in: bicycling frequency: 1-2 times per week duration: < 15 minutes/day seatbelt use: always do you feel safe at home: Yes ROS Const Const: Positive for other (Feels well. Liver enzymes are up again.); negative for fatigue, weakness, body ache, fever(s), headache(s), chills, frequent falls, night sweats, daytime sleepiness, difficulty sleeping, excessive sweating, weight gain, weight loss, increased appetite, poor appetite or anorexia Eyes Eyes: Negative for blind spots, loss of peripheral vision, transient loss of vision, blurry vision, change in vision, double vision, floaters, tunnel vision or other ENT ENT: Negative for headache(s), dizziness, hearing loss, tinnitus, Nosebleed/epistaxis, balance problems, post nasal drip, lip swelling, tongue swelling, bleeding gums, hoarseness, neck pain, dry mouth or other Cardio Chest Pain: No Palpitations: No Edema: None Muscle aches with walking: None Resp Respiratory: Negative for SOB with activity, SOB at rest, SOB orthopnea\SOB lying down, Cough, Coughing up blood/hemoptysis, chest congestion, pain on inspiration, snoring, stridor, wheezing, crackles, paroxysmal nocturnal dyspnea or other GI GI: Negative nausea, vomiting, heartburn, constipation, belching, bloating, cramping, vomiting blood/hematemesis, bright, red blood in stools, black,tarry stools, loose stools, Difficulty Swallowing or other : Negative for hematuria, frequent nighttime urination/ nocturia, erectile dysfunction or abnormal vaginal bleeding Musc Musc: Negative for muscle aches/ myalgia, muscle weakness, joint pain or balance problems Skin Skin: Negative redness, non-healing lesions, rash, unusual bruising, skin ulcer, wounds, jaundice or other Neuro Neuro: Negative for dizziness, lightheadedness, near syncope, syncope, orthostatic symptoms, frequent falls, headache(s), weakness, confusion, memory loss, restless legs, blurry vision, double vision, vertigo, seizures, lack of coordination or other Flaco Hematologic/Lymphatic: Negative for easy bleeding, easy bruising, enlarged lymph nodes or other Endo Endo: Negative for fatigue, cold intolerance, heat intolerance, excessive sweating, flushing, increased thirst/drinking, increased hunger, hair loss, hair growth or other Psych Psych: Negative for anxiety, depression, thoughts of harming anyone, thoughts of harming yourself, visual hallucinations, panic attacks or audible hallucinations Allergy Allergy/Immunology: Negative for throat swelling, Negative for tongue swelling, Negative for hives, Negative for rash, Negative for lip swelling Cardiology Exam Const Appearance: cooperative, healthy appearing and no acute distress Nutritional Appearance: well nourished Orientation: alert, oriented x3 and oriented to person Head Head: normal to inspection, normocephalic and atraumatic Nose: external nose normal Face and Sinus: face symmetric Mouth: oral mucosae normal Eyes General: appearance normal, both eyes and all related structures Eyelids: eyelids normal Conjunctivae: conjunctivae normal Pupils: PERRL and normal by confrontation EOM: EOM intact bilaterally Neck Neck: normal visual inspection and full ROM Carotids: normal carotid upstroke Chest Chest inspection: normal inspection of the chest Auscultation: Bilateral: Clear to Auscultation Cardio Palpation: normal PMI Rate: regular rate Rhythm: regular rhythm Heart sounds: S1 normal and S2 normal GI GI: normal to inspection, no hepatosplenomegaly and bowel sounds present Neuro General: alert, awake, oriented x3, CN's II-XI intact bilaterally and moves all extremities Skin Skin: no rashes or lesions noted Extremities Pulses: Normal: Right Femoral Pulse, Left Femoral Pulse, Right Dorsalis Pedis Pulse, Left Dorsalis Pedis Pulse, Right Posterior Tibial Pulse, Left Posterior Tibial Pulse, Right Radial Pulse, Left Radial Pulse Lower Extremity Edema: None: Bilateral Psych Psychological: normal affect Assessment & Plan 1. Coronary artery disease: Patient is in the process of undergoing a heart catheterization for stenting of his LAD today. To remain on aggressive medical management. He will need to remain on his Plavix. He will follow-up accordingly in the office after discharge from the hospital. 2. Ischemic cardiomyopathy: Patient does not have any symptoms of congestive heart failure. He will continue on his beta-lilliana, TANIYA inhibitor. We will continue to monitor by echocardiograms as deemed appropriate. 3. Ventricular tachycardia: Patient has not had any further discharges from his device. He will continue with his amiodarone. We will need to continue to monitor his thyroid, hepatic functions closely in addition to his pulmonary function test and chest x-rays. 4. ICD placement: Patient will continue to follow with regular ICD interrogati ons. 5. Hyperlipidemia: Patient will continue with current low-dose statin. His lipids will continue to be monitored.
--- NOTE | 2019-02-17 11:55 | CL.I_ITS ---
Patient Name: FRANCIS MORTON Study Date: 02/17/2019 Performing: Luis Nielson MD Ht: 74.01 inches 188 cm : 1955 Wt: 227.08 lbs 103 kg Age: 64 Gender: male BSA: 2.29 PROCEDURE(S) PERFORMED [id number] W OR WO PTCA, SINGLE CORONARY ARTERY [id number], EACH ADD'L CORONARY ART, SAME MAJOR CLINICAL PROFILE AND CO-MORBIDITIES Indications: Stable Known CAD, LV Dysfunction, Cardiomyopathy Heart Failure: NYHA Class: 2, Newly Diagnosed: No, Heart Failure Type: Systolic Stress/Imaging Date: 01/20/2019 Stress Echocardiogram: Positive Intermediate Risk Angina Classification Anginal Classification w/in 2 Weeks: CCS III CAD Presentations: Unstable angina. Other: Dyspnea on exertion. Comorbidities/Risk Factors: Hypertension Dyslipidemia Prior PR Prior PCI CONCLUSIONS Successful PTCA/DEMETRIO to Mid LAD with a 3.0 x 28 Promus Synergy, post dilated in middle stent with a 3. 0 x 12 NC Balloon; 75%-->0%, no dissection. Successful PTCA/DEMETRIO Mid LAD across bifurcation of DIAG#1 and telescoped into mid LAD stent with a 4.0 x 28 Promus Synergy, post dilated in the proximal LAD with a 4.0 x 8 and a 4.5 x 8 NC Balloon; 855-- >0%, no dissection. Successful PCI with PTCA to the ostial DIAG #1 through struts of LAD stent with a 2.5 x 8 Ballloon; 7 0%-->30%, no dissection. NO additional stenting needed or attempted. RECOMMENDATIONS Highly recommend quitting all tobacco products Follow up with primary personnel arbitrator Risk factor modification ASA Indefinitley Plavix for at least 12 months Routine post interventional care Refer for Outpatient Cardiac Rehab Manual sheath removal per protocol Follow up with Dr. Nielson Successful Mynx Closure of RFA. Increase Lisinopril to 20mg po bid. repeat echo after cardiac rehab. DESCRIPTION OF PROCEDURE The patient arrived to the procedure lab. The risks and benefits of the procedure as well as a full d escription of our services here and current unavailability of surgical backup were fully explained to the patient and/or their significant other prior to the catheterization. The Timeout was completed, verifying the correct patient and procedure. The patient's procedural site was prepped and draped in the usual fashion. Local anesthetic was given subcutaneously to right groin region with Lidocaine 2%. Using a modified Seldinger technique, arterial access was obtained via the right femoral artery, a 6 Fr sheath was inserted.. EBU 3.75 Guide catheter was inserted and engaged into the LCA. BMW Reddell (1) Guide wire was a dvanced to the LAD. BMW Reddell (2) Guide wire was advanced to the 1st Diagonal. Synergy 3.0 x 28 D rug Eluting stent was inserted. Drug Eluting stent was advanced across the lesion in the LAD, mid. An giogram performed post stent deployment. Synergy 4.0 x 28 Drug Eluting stent was inserted. Drug Eluti ng stent was advanced across the lesion in the LAD, mid. Angiogram performed pre stent deployment. An giogram performed post stent deployment. NC Emerge 4.0 x 8 Balloon catheter was inserted. Balloon cat heter was advanced across lesion in the LAD, mid. Angiogram performed post balloon dilatation. Angiog vicenta performed post balloon dilatation. Angiogram performed post balloon dilatation. NC Emerge 4.5 x 8 Balloon catheter was inserted. Balloon catheter was advanced across lesion in the LAD, mid. Angiogra m performed pre balloon dilatation. Angiogram performed post balloon dilatation. BMW Reddell Wire (1) Guide wire was repositioned to the 1st Diagonal BMW Reddell (2) Guide wire was r epositioned to the LAD Emerge 2.5 x 8 Balloon catheter was inserted. Balloon catheter was advanced ac ross lesion in the first diagonal, ostial. Angiogram performed pre balloon dilatation. PTCA balloon i nflated at 8 atms for 60 secs. Angiogram performed post balloon dilatation. NC Emerge 3.0 x 12 Balloo n catheter was inserted. Balloon catheter was advanced across lesion in the LAD, mid. Angiogram perfo rmed post balloon dilatation. Contrast was injected through the sheath and the Right Iliac and Femora l artery were assessed for possible closure device. The arterial sheath was pulled and a Mynx closure device was deployed for hemostasis INTERVENTION INFORMATION LESION SITE: LAD (Mid) Lesion Complexity: High/C, lesion at bifurcation: Yes, thrombus present: No, lesion length: 56 mm, cu lprit lesion: Yes Pre Stenosis: 85 % Pre intervention LIZBET flow: 3 PROCEDURE: Drug Eluting Stent with pre and post dilatation Post Stenosis: 0 % Post intervention LIZBET flow: 3 Lesion Devices: Bautista .014 BMW Reddell Straight 190cm Bautista .014 BMW Reddell Straight 190cm Medtronic 6 Fr EBU3.75 100cm Guide Catheter Diaz Sci Synergy MR DEMETRIO 3.00x28 Diaz Sci Synergy MR DEMETRIO 4.00x28 Diaz Sci NC EMERGE MR 4.00x08 BALLOON Diaz Sci NC EMERGE MR 4.50x08 BALLOON Diaz Sci NC EMERGE MR 3.00x12 BALLOON LESION SITE: 1st Diagonal (Ostial) Lesion Complexity: Non-High/Non-C, lesion at bifurcation: Yes, thrombus present: No, lesion length: 8 mm, culprit lesion: No Pre Stenosis: 70 % Pre intervention LIZBET flow: 3 PROCEDURE: Balloon Angioplasty Post Stenosis: 30 % Post intervention LIZBET flow: 3 Lesion Devices: Diaz Sci EMERGE MR 2.50x08 BALLOON COMPLICATIONS No Complications PROCEDURE MEDICATIONS Versed 1 mg IV Oxygen: 2 L/min via nasal cannula Benadryl 25 mg IV @ 02/17/2019 10:37:18 Heparin 6000 unit(s) IV 02/17/2019 10:48:28 Nitro 200 mcg IC 02/17/2019 10:51:09 Nitro 200 mcg IC 02/17/2019 10:51:09 Nitro 200 mcg IC 02/17/2019 11:11:03 Nitro 200 mcg IC 02/17/2019 11:17:04 Nitro glycerin 25mg / 250ml D5W @ 5 mcg/min IV started 02/17/2019 11:27:44 Nitro 300 mcg IC 02/17/2019 11:30:38 Solu-cortef 100 mg IV 02/17/2019 10:37:24 IV Bolus: .9 NaCl 900ml total 02/17/2019 10:51:51 SUMMARY OF HEMODYNAMIC DATA Time AIR REST ECG 08:48:23 AO 153/81 (109) SA 10:50:32 AO 173/81 (113) 11:29:29 AO 166/79 (110) 11:30:40 Signed By Luis Nielson MD On 02/17/2019 11:54:35 Luis Nielson MD
[2019-02-17 12:00] LABS: ACT Activated Clotting Time 175 sec (74-137)
[2019-02-17] MEDS: 0.9% Normal Saline 1,000 ML 150 ML IV (12:00)
--- NOTE | 2019-02-17 12:00 | EKG12_ITS ---
Test Reason : AM EKG Blood Pressure : / mmHG Vent. Rate : 059 BPM Atrial Rate : 059 BPM P-R Int : 192 ms QRS Dur : 116 ms QT Int : 468 ms P-R-T Axes : 059 044 060 degrees QTc Int : 463 ms Sinus bradycardia Otherwise normal ECG Confirmed by LINDA JEFFERSON, BELLA ([id number]), market editor SUSAN BLACKMAN ([id number]) on 02/22/2019 10:51:31 AM Referred By: Luis Nielson Confirmed By:BELLA MCKEON MD
[2019-02-17] MEDS: Nitroglycerin Infusion 250 ML 3 MG CONT INF (12:29)
[2019-02-17] MEDS: Clopidogrel Bisulfate 75 MG Tablet 300 MG PO (13:10)
--- NOTE | 2019-02-17 13:15 | CRPHASE1 ---
Patient Communication PHII Cardiac Rehab Discussed with Patient:: Yes Guide to Cardiac Rehab Given to Patient:: Yes Cardiac Rehab Facility Choice List Given to Patient:: Yes - [facility] Choice Program [facility] CR PHII:: Communication Given to CR, Refer to [facility] Choice Program Other:: Communication Given to CR, With permission faxed order and referral information Refer Phase II Cardiac Rehab:: Yes Sessions:: 36 sessions - 3 days/wk, 12 weeks Risk Factors/Lifestyle Smoking Status: Former smoker Hx Hypertension: Yes - on meds Hx Dyslipidemia: Yes Height: 1.88 m Weight:: 103.419 kg BMI: 29.2 ETOH: Yes Caffeine: Yes Substance Abuse: No Risk Factor for Sedentary Lifestyle: Lowest Risk Family History: Family History (Last Reviewed 12/31/18 @ 13:34 by Simona Whipple) Grandmother Myocardial infarction Grandfather Myocardial infarction Family History: Heart Disease Past Cardiac Illness: Arrhythmias - Vtach Issues Affecting Care:: None Knowledge of Condition:: Yes Hospital Course Pain Intensity: 0 Cardiac Cath Date:: 02/17/19 Medical/Surgical History ID:: No Angina:: No Pulmonary:: No Diabetes:: No Diabetes Type II:: No Hypertension:: Yes Dyslipidemia:: Yes Discharge/Home/Social Eval Discharge Disposition: Home Marital Status: Cardiac Rehabilitation Info Cardiac Rehabilitation Program Information: Cardiac Rehabilitation is important for patients like you who are recovering from a heart problem. Cardiac rehabilitation programs are recognized as integral to the continued care of the patient with coronary heart disease. The cardiac rehabilitation program is designed to optimize a patient's physical, psychological, and social functioning. Health healthcare corporate account director work in cardiac rehabilitation programs and assist you with getting the treatments you need to get stronger and healthier - like exercise, healthy eating habits, and medications. Cardiac rehabilitation has been show to help people with heart problems live longer and have better life enjoyment than people who do not go to cardiac rehabilitation. Please contact the Cardiac Rehabilitation Program at [facility] at in two weeks if you have not heard from them.
--- NOTE | 2019-02-17 13:19 | CRPHASE1_ITS ---
Patient Communication PHII Cardiac Rehab Discussed with Patient:: Yes Guide to Cardiac Rehab Given to Patient:: Yes Cardiac Rehab Facility Choice List Given to Patient:: Yes - [facility] Choice Program [facility] CR PHII:: Communication Given to CR, Refer to [facility] Choice Program Other:: Communication Given to CR, With permission faxed order and referral information Refer Phase II Cardiac Rehab:: Yes Sessions:: 36 sessions - 3 days/wk, 12 weeks Risk Factors/Lifestyle Smoking Status: Former smoker Hx Hypertension: Yes - on meds Hx Dyslipidemia: Yes Height: 1.88 m Weight:: 103.419 kg BMI: 29.2 ETOH: Yes Caffeine: Yes Substance Abuse: No Risk Factor for Sedentary Lifestyle: Lowest Risk Family History: Family History (Last Reviewed 12/31/18 @ 13:34 by Simona Whipple) Grandmother Myocardial infarction Grandfather Myocardial infarction Family History: Heart Disease Past Cardiac Illness: Arrhythmias - Vtach Issues Affecting Care:: None Knowledge of Condition:: Yes Hospital Course Pain Intensity: 0 Cardiac Cath Date:: 02/17/19 Medical/Surgical History HI:: No Angina:: No Pulmonary:: No Diabetes:: No Diabetes Type II:: No Hypertension:: Yes Dyslipidemia:: Yes Discharge/Home/Social Eval Discharge Disposition: Home Marital Status: Cardiac Rehabilitation Info Cardiac Rehabilitation Program Information: Cardiac Rehabilitation is important for patients like you who are recovering from a heart problem. Cardiac rehabilitation programs are recognized as integral to the continued care of the patient with coronary heart disease. The cardiac rehabilitation program is designed to optimize a patient's physical, psychological, and social functioning. Health healthcare science specialist work in cardiac rehabilitation programs and assist you with getting the treatments you need to get stronger and healthier - like exercise, healthy eating habits, and medications. Cardiac rehabilitation has been show to help people with heart problems live longer and have better life enjoyment than people who do not go to cardiac rehabilitation. Please contact the Cardiac Rehabilitation Program at [facility] at in two weeks if you have not heard from them.
--- NOTE | 2019-02-17 13:20 | CRPH1.INSTRU ---
General Education CAD and cardiac anatomy and function:: Patient communicates acknowledgment Explanation of diagnoses and procedures:: Patient communicates acknowledgment Antiplatelet therapy: Patient communicates acknowledgment Smoking Patient Nicotine/Smoking Risk Factors Are:: Non-smoker Dyslipidemia Recommendations Include:: Lipid profile not available Overweight/Obesity Patient Overweight/Obesity Risk Factors Are:: Overweight = 26-29 Hypertension Recommendations Include:: Maintain BP <130/85, Moderation of ETOH Hypertension:: Patient communicates acknowledgment Heart Disease Heart Disease Response Code:: Patient communicates acknowledgment Diabetes Patient Diabetes Risk Factors Are:: No documented hx of diabetes Metabolic Syndrome Recommendations Include:: Does not meet criteria Metabolic Syndrome Response Code:: Patient communicates acknowledgment Sedentary Recommendations Include:: Benefits of regular exercise Sedentary Response Code:: Patient communicates acknowledgment - a kayfer Stress Patient Stress Risk Factors Are:: Patient denies stress as a risk factor
[2019-02-17] MEDS: Lisinopril 20 MG Tablet PO (22:00)
[2019-02-17] MEDS: Pravastatin 20 MG Tablet PO (22:00)
[2019-02-18] VITALS (9 sets, daily range): BP systolic 129–163; BP diastolic 71–82; PULSE 60–79; RESP 13–19; TEMP 36.4–36.7; O2SAT 94–97
[2019-02-18 04:52] LABS: Hematocrit 41.3 % (40-54); Hemoglobin 14.3 g/dl (13.0-16.5); Mean Corp Hgb Conc 34.6 g/gl (32-36); Mean Corpuscular Hgb 33.8 pg (27.0-32.0); Mean Corpuscular Volume 97.6 fL (80-94); Mean Platelet Vol. 10.5 fl (6.2-12.0); Platelet Count 189 K/mm3 (150-450); RBC Distribution Width CV 13.5 % (11.6-14.6); RBC Distribution Width SD 47.1 fl (35.1-43.9); Red Blood Count 4.23 M/mm3 (4.6-6.2); White Blood Count 8.7 K/mm3 (4.4-11.0)
[2019-02-18 05:03] LABS: Anion Gap 6 (5-15); BUN 19 mg/dL (7-18); BUN/Creat Ratio 24.9 RATIO (10-20); Calcium,Total 8.1 mg/dL (8.5-10.1); Chloride 111 mmol/L (98-107); Creatinine, Serum 0.76 mg/dL (0.70-1.30); EST Glomerular Filtration Rate 110 mL/min (>60); Est Glom Filt Rate - Afr Amer 133 mL/min (>60); Estimated Creatinine Clearance 115.67 ml/min; Glucose 87 mg/dL (74-106); Potassium 3.7 mmol/L (3.5-5.1); Sodium Level 143 mmol/L (136-145)
[2019-02-18 05:06] LABS: Scan Indicated on CBC? Y/N NO
--- NOTE | 2019-02-18 06:49 | PCM.DC.CCA ---
Discharge Diet: Low fat/ Low Cholesterol Discharge Activity: Return to Normal Activity May shower in (days): 1 - No tub baths for 5 days May resume sexual activity in: 1-2 weeks Lifting Restrictions: Do not lift anything greater than 10 pounds for 3 days Call your doctor if your incision/area has: Continuous Slow Oozing, Sudden Increased Bleeding, Increased Pain/ Swelling, Increased Redness, Foul Smelling Discharge, Swelling at the incision site Call your doctor if you observe: Fever of 101 or Higher, Shortness of breath, Chest pain Remove Dressing in (days):: 1 Cleanse incision/area with: Soap & Water Additional Instructions: He will continue with aspirin therapy. He will remain on Plavix therapy for at least one year. If anyone asks you to stop your Plavix please call the [facility] Office first at [phone]. Your blood pressure medication, Lisinopril, has been increased to 20 mg p.o. twice daily. A prescription for the increased dosage has been sent to [facility] in [place]. You are scheduled for an office follow-up appointment on 03/05/2019 at 9:30 AM with Dayanna Physician Cupola Tapper. If you have any further questions or concerns please call the [place] [facility] Office at [phone]. Allergies/Adverse Reactions: Allergies ezetimibe [From Zetia] Adverse Reaction (Severe, Verified 12/24/18 15:22) Myalgias Iodine and Iodide Containing Produc Adverse Reaction (Severe, Verified 12/24/18 15:22) Rash Aiejaoh-Cge-Odj Reductase Inhibitor Adverse Reaction (Severe, Verified 12/24/18 15:22) Elevated Liver Enzymes Medications to take at Discharge aspirin 81 mg tablet,delayed release 81 mg PO QDAY 10/14/17 nitroglycerin 0.4 mg sublingual tablet 0.4 mg SUBLINGUAL Q5M PRN #25 tab 05/08/18 pravastatin 20 mg tablet 20 mg PO QHS #90 tab 08/10/18 metoprolol succinate ER 50 mg tablet,extended release 24 hr 50 mg PO ONCE #90 tab 11/11/18 amiodarone 200 mg tablet 200 mg PO DAILY #90 tab 11/26/18 clopidogrel 75 mg tablet 75 mg PO .COMPLEX #30 tab 01/20/19 lisinopril 20 mg tablet 20 mg PO BID #180 tab 02/18/19 Orders to be completed after discharge: Phase II, Outpatient Cardiac Rehab Location: None Selected Primary Care Physician: Shay Del Rosario III, MD [Primary Care Provider] - Test Results: Test results from this visit will be discussed in further detail at your follow-up appointment, if applicable. Cardiac Rehabilitation Info Cardiac Rehabilitation Program Information: Cardiac Rehabilitation is important for patients like you who are recovering from a heart problem. Cardiac rehabilitation programs are recognized as integral to the continued care of the patient with coronary heart disease. The cardiac rehabilitation program is designed to optimize a patient's physical, psychological, and social functioning. Health patient care assistant work in cardiac rehabilitation programs and assist you with getting the treatments you need to get stronger and healthier - like exercise, healthy eating habits, and medications. Cardiac rehabilitation has been show to help people with heart problems live longer and have better life enjoyment than people who do not go to cardiac rehabilitation. Please contact the Cardiac Rehabilitation Program at [facility] at in two weeks if you have not heard from them.
--- NOTE | 2019-02-18 06:54 | DCINST_ITS ---
Discharge Diet: Low fat/ Low Cholesterol Discharge Activity: Return to Normal Activity May shower in (days): 1 - No tub baths for 5 days May resume sexual activity in: 1-2 weeks Lifting Restrictions: Do not lift anything greater than 10 pounds for 3 days Call your doctor if your incision/area has: Continuous Slow Oozing, Sudden Increased Bleeding, Increased Pain/ Swelling, Increased Redness, Foul Smelling Discharge, Swelling at the incision site Call your doctor if you observe: Fever of 101 or Higher, Shortness of breath, Chest pain Remove Dressing in (days):: 1 Cleanse incision/area with: Soap & Water Additional Instructions: He will continue with aspirin therapy. He will remain on Plavix therapy for at least one year. If anyone asks you to stop your Plavix please call the [facility] Office first at [phone]. Your blood pressure medication, Lisinopril, has been increased to 20 mg p.o. twice daily. A prescription for the increased dosage has been sent to [facility] in [place]. You are scheduled for an office follow-up appointment on 03/05/2019 at 9:30 AM with Dayanna Physician Key Punch Operator. If you have any further questions or concerns please call the [place] [facility] Office at [phone]. Allergies/Adverse Reactions: Allergies ezetimibe [From Zetia] Adverse Reaction (Severe, Verified 12/24/18 15:22) Myalgias Iodine and Iodide Containing Produc Adverse Reaction (Severe, Verified 12/24/18 15:22) Rash Fralqlj-Ycn-Ycp Reductase Inhibitor Adverse Reaction (Severe, Verified 12/24/18 15:22) Elevated Liver Enzymes Medications to take at Discharge aspirin 81 mg tablet,delayed release 81 mg PO QDAY 10/14/17 nitroglycerin 0.4 mg sublingual tablet 0.4 mg SUBLINGUAL Q5M PRN #25 tab 05/08/18 pravastatin 20 mg tablet 20 mg PO QHS #90 tab 08/10/18 metoprolol succinate ER 50 mg tablet,extended release 24 hr 50 mg PO ONCE #90 ta b 11/11/18 amiodarone 200 mg tablet 200 mg PO DAILY #90 tab 11/26/18 clopidogrel 75 mg tablet 75 mg PO .COMPLEX #30 tab 01/20/19 lisinopril 20 mg tablet 20 mg PO BID #180 tab 02/18/19 Orders to be completed after discharge: Phase II, Outpatient Cardiac Rehab Location: None Selected Primary Care Physician: Shay Del Rosario III, MD [Primary Care Provider] - Test Results: Test results from this visit will be discussed in further detail at your follow- up appointment, if applicable. Cardiac Rehabilitation Info Cardiac Rehabilitation Program Information: Cardiac Rehabilitation is important for patients like you who are recovering from a heart problem. Cardiac rehabilitation programs are recognized as integral to the continued care of the patient with coronary heart disease. The cardiac rehabilitation program is designed to optimize a patient's physical, psychological, and social functioning. Health respiratory care specialist work in cardiac rehabilitation programs and assist you with getting the treatments you need to get stronger and healthier - like exercise, healthy eating habits, and medications. Cardiac rehabilitation has been show to help people with heart problems live longer and have better life enjoyment than people who do not go to cardiac rehabilitation. Please contact the Cardiac Rehabilitation Program at [facility] at in two weeks if you have not heard from them.
[2019-02-18] MEDS: Metoprolol(XL)Succ 50 MG Tablet PO (07:56)
[2019-02-18] MEDS: Clopidogrel Bisulfate 75 MG Tablet PO (07:56)
[2019-02-18] MEDS: Amiodarone 200 MG Tablet PO (07:56)
[2019-02-18] MEDS: Aspirin E.C. 81 MG Tablet PO (07:56)
[2019-02-18] MEDS: Lisinopril 20 MG Tablet PO (07:57)
--- NOTE | 2019-02-18 10:00 | EKG12_ITS ---
Test Reason : POST PCI Blood Pressure : / mmHG Vent. Rate : 062 BPM Atrial Rate : 062 BPM P-R Int : 206 ms QRS Dur : 116 ms QT Int : 456 ms P-R-T Axes : 066 060 083 degrees QTc Int : 462 ms Normal sinus rhythm Nonspecific T wave abnormality Prolonged QT Abnormal ECG Confirmed by LINDA JEFFERSON, BELLA ([id number]), map editor SUSAN BLACKMAN ([id number]) on 02/22/2019 10:53:08 AM Referred By: Luis Nielson Confirmed By:BELLA MCKEON MD
--- NOTE | 2019-02-18 10:15 | PCM.PN.CARD ---
Subjectve: Patient doing very well this morning, no 24-hour events. Did not sleep very well. Denies any chest pain. Right groin is clean/dry/intact, telemetry negative. EKG shows normal sinus rhythm, old inferior wall myocardial infarction, no acute changes. Objective: Vital Signs Temp Pulse Resp BP Pulse Ox 98.1 F 73 16 163/82 H 97 02/18/19 07:43 02/18/19 07:56 02/18/19 07:43 02/18/19 07:56 02/18/19 07:43 Oxygen Delivery Method Room Air Weight: 229 lb 11.547 oz Body Mass Index (BMI) 30.8 Intake and Output for Last 24 Hours 02/16/19 02/17/19 02/18/19 23:59 23:59 23:59 Intake Total 2614 / 2614 350 / 350 Output Total 900 / 900 425 / 425 Balance 1714 / 1714 -75 / -75 General: Awake, Alert, Oriented x 3 HEENT: PERRL, EOMI, Sclera Non Icteric Neck: Supple, Good ROM, No Lymph Node Enlargement Lungs: Clear to auscultation Cardiovascular: Regular Rhythm, Normal S1, Normal S2, No Murmurs, No Rubs, No Gallops Vascular: No Carotid Bruits, Normal Femoral Pulses, Normal Radial Pulses, Normal Dorsalis Pedal Pulse, Normal Posterior Tibial Pulses Abdomen: Bowel Sounds Present, Soft, Non Tender, No HSM, No Organomegaly Extremities: No Cyanosis, No Clubbing, No edema Neurological: No Focal Motor or Sensory Deficit 02/18/19 04:32: Sodium 143, Potassium 3.7, Chloride 111 H, Carbon Dioxide 26.0, Anion Gap 6, BUN 19 H, Creatinine 0.76, Est GFR (MDRD) Af Amer 133, Est GFR (MDRD) Non-Af 110, BUN/Creatinine Ratio 24.9 H, Glucose 87, Calcium 8.1 L 02/18/19 04:32: WBC 8.7, RBC 4.23 L, Hgb 14.3, Hct 41.3, MCV 97.6 H, MCH 33.8 H, MCHC 34.6, RDW 13.5, RDW Differential 47.1 H, Plt Count 189, MPV 10.5 Rhythm: EKG: ECHO: Stress Test: Cardiac Cath: PCI: CT Surgery: Holter monitor: EPS: PPM: CXR: Chest CT Scan: Medical Necessity - Tobacco Use Smoking Status: Former smoker Assessment/Plan 1. Coronary artery disease: No exertional anginal symptoms overnight. Telemetry negative. Episodes of hypertension will be addressed with increasing lisinopril to 20 mg p.o. twice daily. Patient will continue baby aspirin, Plavix, Toprol. He will be engaged in cardiac rehab once his groin is healed in 2 weeks time. He will follow up with Donnell in the office in 2 weeks followed by me in several weeks time. Once he is completed cardiac rehab we will reecho him to determine if his LV function has improved with a combination of coronary intervention, cardiac rehab, and antihypertensive medications. 2. Hyperlipidemia: Continue Pravachol therapy. 3. Patient will be discharged home today. Follow-up with Dr. Nielson. Code Visit Inpatient E&M: 76322 Subs Hosp L2
== END 2019-02-18 10:14 | disposition home or self-care (01) ==
LOC: CLSP 08:09 → ICU 12:00
PROVIDERS: Family Provider Family Medicine; PCP Family Medicine; Referring Provider Internal Medicine Cardiovascular Disease; Visit Provider Internal Medicine Cardiovascular Disease
DX: I25.10 Atherosclerotic heart disease of native coronary artery without angina pectoris (principal); I10 Essential (primary) hypertension; E78.5 Hyperlipidemia, unspecified; I25.5 Ischemic cardiomyopathy; I25.2 Old myocardial infarction; Z95.810 Presence of automatic (implantable) cardiac defibrillator; Z95.5 Presence of coronary angioplasty implant and graft; Z79.82 Long term (current) use of aspirin; Z79.899 Other long term (current) drug therapy; Z87.891 Personal history of nicotine dependence
CPT/HCPCS: 80048; 85027; 85347; 92921; 92928; 93005; 97802; 99152; 99153; C1760; J7030; J7040; Q9967; C1725; C1769; C1874; C1887; C9600

== ENCOUNTER → 2019-04-21 | Outpatient (CLI) | payer MEDICAID, SELFPAY ==
[2019-02-17 13:19] VITALS: BMI 29.2
[2019-04-21 09:11] VITALS: BMI 30.8
[2019-04-21 14:49] LABS: Anion Gap 9 (5-15); BUN 21 mg/dL (7-18); BUN/Creat Ratio 15.6 RATIO (10-20); Calcium,Total 8.9 mg/dL (8.5-10.1); Chloride 91 mmol/L (98-107); Creatinine, Serum 1.35 mg/dL (0.70-1.30); EST Glomerular Filtration Rate 57 mL/min (>60); Est Glom Filt Rate - Afr Amer 69 mL/min (>60); Glucose 109 mg/dL (74-106); Potassium 4.6 mmol/L (3.5-5.1); Sodium Level 128 mmol/L (136-145)
== END | disposition home or self-care (01) ==
PROVIDERS: Family Provider Family Medicine; PCP Family Medicine; Referring Provider Physician Assistant Medical; Visit Provider Physician Assistant Medical
DX: I10 Essential (primary) hypertension (principal)
CPT/HCPCS: 36415; 80048

== ENCOUNTER 2019-05-14 15:33 | Emergency (ER) | payer MEDICAID, SELFPAY ==
[2019-02-17 13:19] VITALS: BMI 29.2
[2019-04-21 14:14] VITALS: BMI 28.8
[2019-05-14 15:33] VITALS: BP 117/72; PULSE 85; RESP 16; TEMP 36.8; O2SAT 94; BMI 28.0
--- NOTE | 2019-05-14 15:36 | CT_ITS ---
STUDY: CT BRAIN WITHOUT CONTRAST REASON FOR EXAM: Male, 64 years old. Trauma RADIATION DOSAGE (If Supplied By Facility): CTDIvol = ( 60.81 ) mGy, DLP = ( 1112.69 ) mGycm TECHNIQUE: Transaxial CT imaging of the brain was performed without administration of intravenous contrast material. Individualized dose optimization techniques were used for this CT. COMPARISON: No relevant priors. FINDINGS: Brain parenchyma is without focal lesions, mass effect, acute intracranial hemorrhage, extra parenchymal fluid collections, hydrocephalus or herniation. The skull is intact. There is left supraorbital forehead facial laceration. Orbital contents are normal. Orbits are intact without fractures. CT/Brain/Head without Contrast IMPRESSION: 1. Normal CT brain. No intracranial trauma. 2. Left supraorbital laceration. Electronically Signed: Lilo Rodgers, at 16:19 EDT Tel , Service support ,
--- NOTE | 2019-05-14 15:55 | ED.DCSUM_ITS ---
- ER Visit Summary Date of Service: 05/14/19 Chief Complaint: Facial injury History of Present Illness: The patient is a 64 M who presents the emergency department following a fall in which he struck his face on concrete. He notes a left eyebrow laceration. He is on aspirin and Plavix for coronary artery disease/PCI therapy. There is no loss of consciousness. He denies other injury Physical Examination: Afebrile vital signs stable Gen: Well-nourished well-developed Head: Normocephalic he is able to wrinkle his forehead bilaterally. Sensation preserved. A 4 cm flap laceration to the left eyebrow region Eyes: Perrl EOMI. There is no hyphema. No subconjunctival hemorrhage. No eyelid injury. ENT: TMs clear no rhinorrhea moist mucous membranes Neck: Supple no lymphadenopathy no JVD nontender CVS: Regular rate rhythm no murmurs normal S1-S2 Respiratory: No distress clear to auscultation bilaterally chest nontender Abdomen: Soft nontender nondistended normal bowel sounds no masses Back: Nontender Extremity: Nontender no edema Skin: Normal color no rash Neuro: alert orientated ?3 CN II-XII intact normal strength sensation Psych: Normal affect normal mood Test Results: CT of the brain was obtained. Negative for intracranial hemorrhage or fracture Emergency Department Course and Treatment: Tetanus is updated with Adacel. Wound was locally anesthetized using 1% lidocaine. Wound edges split into m ultiple branches. Some form of JAREK and sent home off and a Y some of are filet- like and some are more deep orientated wound edges were approximated using a total of 7 simple interrupted 5-0 Ethilon sutures. Dressing will be applied. Stitches will need to be removed in 7 days. Impression: 1. 4 cm complex facial laceration with repair 2. Tetanus update This note was generated with [employer] dictation software. It may contain incorrect words, spelling, and punctuation that were not noted in review of the chart prior to signing ED Disposition - Plan for ED Patient: Disposition: Home or Assisted Living Instructions: LACERATION, Face (Suture or Tape) Referrals: Shay Del Rosario III, MD [Primary Care Provider] - 7 Days for suture removal
[2019-05-14] MEDS: Diphth,Pertuss(Acell),Tet Vac 0.5 ML Vial IM (16:36)
== END 2019-05-14 16:52 | disposition home or self-care (01) ==
PROVIDERS: Emergency Provider Emergency Medicine; Family Provider Family Medicine; PCP Family Medicine
DX: S01.112A Laceration without foreign body of left eyelid and periocular area, initial encounter (principal); R40.2410 Glasgow coma scale score 13-15, unspecified time; W19.XXXA Unspecified fall, initial encounter; Y93.9 Activity, unspecified; Y92.9 Unspecified place or not applicable; Z23 Encounter for immunization; I25.10 Atherosclerotic heart disease of native coronary artery without angina pectoris; J44.9 Chronic obstructive pulmonary disease, unspecified; I10 Essential (primary) hypertension; E78.00 Pure hypercholesterolemia, unspecified; Z79.82 Long term (current) use of aspirin; Z79.899 Other long term (current) drug therapy; Z72.0 Tobacco use
CPT/HCPCS: 12013; 70450; 90715; 99283

== ENCOUNTER → 2019-05-27 | Outpatient (CLI) | payer MEDICAID, SELFPAY ==
[2019-02-17 13:19] VITALS: BMI 29.2
[2019-04-21 14:14] VITALS: BMI 28.8
[2019-05-14 15:33] VITALS: BMI 28.0
--- NOTE | 2019-05-27 13:31 | CT_ITS ---
STUDY: LOW DOSE CT LUNG CANCER SCREENING REASON FOR EXAM: Male, 64 years old. Smoked one pack per day x39 years, quit 16 months ago RADIATION DOSAGE (If Supplied By Facility): CTDIvol = ( 4.02 ) mGy, DLP = ( 165.57 ) mGycm TECHNIQUE: No contrast was administered. Low dose technique was utilized (average mAS-38 and kVp 120). 1.25 mm axial source images with a slice interval of 1.25-mm were reconstructed in lung windows. 2.5 mm axial source images with a slice interval of 2.5-mm were reconstructed in lung windows. 5.0 mm axial source images with a slice interval of 5.0-mm were reconstructed in soft tissue windows. Nodule measured using lung windows on PACS and/or independent workstation with automated measurement of minimum and maximum diameter. Nodule measurement reported as average diameter rounded to the nearest whole number. Growth is defined as an increase ins size of greater than 1.5 mm. COMPARISON: None. NODULES: Lung windows show a 6 mm noncalcified nodule in the lateral aspect of the right middle lobe best seen on axial image 193. No other suspicious noncalcified mass or nodule noted. No organized infiltrate or effusion. There is underlying emphysema. Emphysema: Present Endobronchial lesion: None Aorta: No demonstrated aneurysm Pacer leads noted along the base of the heart Pulmonary artery: Unremarkable Mediastinal nodes: No suspicious adenopathy CT/Low Dose CT Lung Screening IMPRESSION: Lung-RADS category 4A - Screening at 3 months wiht LDCT or evaluation with PET/CT may be used. IMPORTANT NOTES FOR USE: ACR Lung-RADS Version 1.0 Assessment Categories Release Date: February 28, 2014 Category: Coded 0-4 bases on nodule(s) with highest degree of suspicion. Negative screen is defined as categories 1 and 2; a positive screen is defined as categories 3 and 4. Category 3 and 4A nodules that are unchanged on interval CT should be coded as category 2, and individuals returned to screening in 12 months. Category 4X: Category 3 or 4 nodules with additional imaging findings that increase the suspicion of lung cancer, such as spiculation, GGN that doubles in size in 1 year, enlarged lymph notes, etc. Category Modifiers: S (significant finding unrelated to lung cancer) and C (prior history of treated lung cancer) may be added to the 0-4 Lung-RADS Electronically Signed: Derrick Graham MD at 14:11 EDT , Service support ,
== END | disposition home or self-care (01) ==
LOC: CT 13:30
PROVIDERS: Family Provider Family Medicine; PCP Family Medicine; Referring Provider Nurse Practitioner Acute Care
DX: Z72.0 Tobacco use (principal)
CPT/HCPCS: G0297

== ENCOUNTER 2019-06-20 12:09 | Emergency (ER) | payer MEDICAID, SELFPAY ==
[2019-02-17 13:19] VITALS: BMI 29.2
[2019-06-20 12:16] VITALS: BP 100/58; PULSE 73; RESP 21; TEMP 36.9; O2SAT 95; BMI 29.1
--- NOTE | 2019-06-20 12:59 | EKG12_ITS ---
Test Reason : DYSRHYTHMIA Blood Pressure : / mmHG Vent. Rate : 074 BPM Atrial Rate : 074 BPM P-R Int : 186 ms QRS Dur : 118 ms QT Int : 468 ms P-R-T Axes : 050 039 088 degrees QTc Int : 519 ms Normal sinus rhythm Inferior infarct , age undetermined Prolonged QT Abnormal ECG Confirmed by GISSELLE JEFFERSON, VALERIE ([id number]), map editor SUSAN BLACKMAN ([id number]) on 06/22/2019 1:28:44 PM Referred By: Confirmed By:VALERIE PITTS MD
--- NOTE | 2019-06-20 13:02 | ED.VISSUMM ---
- ER Visit Summary Date of Service: 06/20/19 Chief Complaint: Weakness and near syncope History of Present Illness: The patient is a 64 M who presents the emergency department with weakness. Patient states that his are . The house is in her name. He has been staying there and she is in a [place] [facility]. The water was shut off. He has not been eating and drinking as he should. He was drinking alcohol last night. He woke up at 630 this morning felt fine to stay in bed. Lateral after 10 he went to get up and started feeling poorly. He felt lightheaded and weak. A friend came to get him to take him to her place to shower and on the up the stairs felt lightheaded and felt like he might pass out. EMS notes that the patient's blood pressure was low at 88/60. Blood sugar was 88. He was diaphoretic for EMS. Physical Examination: Afebrile vital signs are stable Gen: Well-nourished well-developed Head: Normocephalic atraumatic Eyes: Perrl EOMI ENT: TMs clear no rhinorrhea moist mucous membranes Neck: Supple no lymphadenopathy no JVD nontender CVS: Regular rate rhythm no murmurs normal S1-S2 Respiratory: No distress clear to auscultation bilaterally chest nontender Abdomen: Soft nontender nondistended normal bowel sounds no masses Back: Nontender Extremity: Nontender no edema Skin: Normal color no rash Neuro: alert orientated ?3 CN II-XII intact normal strength sensation reflexes gait cerebellar Psych: Normal affect normal mood Test Results: EKG sinus rhythm at a rate of 74. White count 10.6. Sodium 124. Troponin negative. Emergency Department Course and Treatment: After 2 L of IV fluids the patient is feeling better. His hypotension has resolved. His sodium of 124 is probably due to alcohol. The patient was encouraged to hydrate better. Unfortunately I do not have social work available to me today to help him with some of his suicidal issues. Impression: 1. Orthostatic hypotension 2. Dehydration 3. Hyponatremia This note was generated with [employer] dictation software. It may contain incorrect words, spelling, and punctuation that were not noted in review of the chart prior to signing ED Disposition - Plan for ED Patient: Disposition: Home or Assisted Living Instructions: DEHYDRATION (6y-Adult) Referrals: Shay Del Rosario III, MD [Primary Care Provider] - 3-5 Days
[2019-06-20 13:08] LABS: Absolute Neutrophil Count 8.5 X10^3/uL (2.0-7.7); Basophil# 0.03 X10^3/uL; Basophil% 0.3 % (0-1); Eosinophil# 0.08 X10^3/uL; Eosinophils% 0.8 % (0-5); Hematocrit 42.2 % (40-54); Hemoglobin 15.7 g/dL (13.0-16.5); Lymphocyte % 8.5 % (19-41); Mean Corp Hgb Conc 37.2 g/dL (32-36); Mean Corpuscular Hgb 36.8 pg (27.0-32.0); Mean Corpuscular Volume 98.8 fL (80-94); Mean Platelet Vol. 9.3 fl (6.2-12.0); Monocyte# 1.05 X10^3/uL; Monocyte% 9.9 % (0-10); NRBC Flagged by Analyzer 0 % (0-5); Neutrophil # 8.48 X10^3/uL (2.7-7.7); Platelet Count 231 K/mm3 (150-450); RBC Distribution Width CV 13.5 % (11.6-14.6); RBC Distribution Width SD 48.8 fl (35.1-43.9); Red Blood Count 4.27 M/mm3 (4.6-6.2); White Blood Count 10.6 K/mm3 (4.4-11.0)
[2019-06-20] MEDS: 0.9% Normal Saline 1,000 ML 1000 ML IV ×2 (13:18→13:33)
[2019-06-20 13:23] LABS: Anion Gap 15 (5-15); BUN 15 mg/dL (7-18); BUN/Creat Ratio 13.4 RATIO (10-20); Calcium,Total 8.7 mg/dL (8.5-10.1); Chloride 89 mmol/L (98-107); Creatinine, Serum 1.12 mg/dL (0.70-1.30); EST Glomerular Filtration Rate 70 mL/min (>60); Est Glom Filt Rate - Afr Amer 85 mL/min (>60); Estimated Creatinine Clearance 78.49 ml/min; Glucose 102 mg/dL (74-106); Potassium 3.7 mmol/L (3.5-5.1); Sodium Level 124 mmol/L (136-145)
[2019-06-20 13:47] VITALS: BP 115/73; BP 119/71; BP 139/78; PULSE 71; PULSE 77; PULSE 79
[2019-06-20 14:07] VITALS: BP 142/54; PULSE 84; RESP 18
== END 2019-06-20 14:22 | disposition home or self-care (01) ==
PROVIDERS: Emergency Provider Emergency Medicine; Family Provider Family Medicine; PCP Family Medicine
DX: I95.1 Orthostatic hypotension (principal); E86.0 Dehydration; E87.1 Hypo-osmolality and hyponatremia; I25.10 Atherosclerotic heart disease of native coronary artery without angina pectoris; J44.9 Chronic obstructive pulmonary disease, unspecified; I10 Essential (primary) hypertension; E78.00 Pure hypercholesterolemia, unspecified; Z95.810 Presence of automatic (implantable) cardiac defibrillator; Z79.82 Long term (current) use of aspirin; Z79.899 Other long term (current) drug therapy; F10.99 Alcohol use, unspecified with unspecified alcohol-induced disorder; Z72.0 Tobacco use
CPT/HCPCS: 80048; 84484; 85025; 93005; 96360; 99285; J7030

== ENCOUNTER 2019-07-23 14:41 | Emergency (ER) | payer MEDICAID, SELFPAY ==
[2019-02-17 13:19] VITALS: BMI 29.2
[2019-07-23 14:42] VITALS: BP 152/76; PULSE 80; RESP 16; TEMP 36.4; O2SAT 97; BMI 28.8
--- NOTE | 2019-07-23 15:46 | ED.VIS.GEN ---
History of Present Illness Chief Complaint: General Illness Narrative: Patient presenting for evaluation secondary to hiccups. Patient states that over the course of the last 36 hours he has had reasonably persistent hiccups. He states that they are not associated with any sort of abdominal pain, recent illness such as nausea vomiting diarrhea cough or sore throat. Patient states that he is tried multiple remedies at home that have not alleviated this. Patient states he is never had any prior similar episodes in the past. Patient's only medications are cardiovascular medications. Patient reports that he went to the urgent care and they recommended that he come to the emergency department. Past Medical History - Allergies and Home Meds Allergies/Adverse Reactions: Allergies ezetimibe [From Zetia] Adverse Reaction (Severe, Verified 07/23/19 14:42) Myalgias Iodine and Iodide Containing Produc Adverse Reaction (Severe, Verified 07/23/19 14:42) Rash Vnqkxcd-Oiw-Sss Reductase Inhibitor Adverse Reaction (Severe, Verified 07/23/19 14:42) Elevated Liver Enzymes Primary Care Physician: Shay Del Rosario III, MD [Primary Care Provider] - Past Medical History: - - Coronary artery disease, alcoholism Surgical History: angioplasty, pacemaker implantation Smoking Status: Former smoker Review of Systems All systems negative except as indicated Respiratory: Reports: - - Hiccups Physical Exam Vital Signs/Narrative: Vital Signs Temp Pulse Resp BP Pulse Ox 07/23/19 14:42 97.5 F L 80 16 152/76 H 97 General: Well nourished, Well developed, No Acute Distress Head: Normocephalic, Atraumatic Eyes: Perrl, EOMI ENT: - - Patient has evidence of oral thrush Neck: Supple, Nontender Cardiovascular: Regular rate, Regular rhythm, No murmurs Respiratory: No distress, CTA bilaterally, Chest nontender, - - Frequent hiccups Abdomen: Soft, Nontender, Nondistended, Normal bowel sounds Back: Nontender, Normal Inspection Extremities: Nontender, No edema Skin: Normal color, No rash Neurological: Alert, Oriented x3, Cranial nerves II-XII grossly intact, Normal Strength, Normal Sensation Psychological: Normal affect, Normal Mood Diagnostic/Tx/Re-eval Chest X-Ray - ED: 2 View, Read by ED Physician, - - Upright 2 view chest x-ray shows pacemaker in place, no evidence of discrete infiltrate, no evidence of air underneath the diaphragm. There is hyperinflation consistent with COPD. - Medical Decision Making Patient presented secondary to intractable hiccups. He has benign abdomen but I did consider the possibility of air under the diaphragm so x-ray was obtained which was found to be negative. Patient had evidence of some oral thrush on physical exam, he will be given nystatin. For the patient's hiccups will be given a course of Thorazine. He will follow-up with primary care. ED Disposition - Plan for ED Patient: Disposition: Home or Assisted Living Diagnosis: Intractable hiccups, Oral thrush Instructions: Hiccups, Oral Thrush Prescriptions: Chlorpromazine HCl 25 mg PO TID #15 tab Prescription Printed Nystatin 500,000U/5ML [Mycostatin] 2 ml PO 4X/DAY #100 ml Prescription Printed Referrals: Shay Del Rosario III, MD [Primary Care Provider] - 3-5 Days
--- NOTE | 2019-07-23 15:50 | RAD_ITS ---
STUDY: X-RAY CHEST REASON FOR EXAM: Male, 64 years old. Chest pain TECHNIQUE: Frontal view of the chest COMPARISON: X-ray chest January 20, 2019 FINDINGS: Left chest pacemaker is present. The lungs are clear. There are no pleural effusions. There is no pneumothorax. The heart is normal in size. The visualized osseous structures are within normal limits. RAD/Chest 1 View IMPRESSION: No acute thoracic pathology. Electronically Signed: Zhao Johnson, at 16:06 EDT Tel , Service support ,
[2019-07-23] MEDS: NYSTATIN 500,000 UNIT/5 ML UDC 500000 UNIT PO (16:14)
[2019-07-23] MEDS: ChlorproMAZINE 25 MG Tablet PO (16:14)
== END 2019-07-23 16:18 | disposition home or self-care (01) ==
PROVIDERS: Emergency Provider Emergency Medicine; Family Provider Family Medicine; PCP Family Medicine
DX: R06.6 Hiccough (principal); B37.0 Candidal stomatitis; I25.10 Atherosclerotic heart disease of native coronary artery without angina pectoris; Z95.0 Presence of cardiac pacemaker; Z79.82 Long term (current) use of aspirin; Z79.899 Other long term (current) drug therapy; F10.20 Alcohol dependence, uncomplicated; Z87.891 Personal history of nicotine dependence
CPT/HCPCS: 71045; 99283

== ENCOUNTER 2019-11-20 14:21 | Inpatient (IN) | payer MEDICAID, SELFPAY ==
[2019-02-17 13:19] VITALS: BMI 29.2
[2019-11-20] VITALS (8 sets, daily range): BP systolic 117–126; BP diastolic 60–82; PULSE 77–81; RESP 16–18; TEMP 35.9–36.4; O2SAT 93–95; BMI 26.5; BMI 25.9; BMI 26.6
--- NOTE | 2019-11-20 14:33 | EKG12_ITS ---
Test Reason : FALL Blood Pressure : / mmHG Vent. Rate : 078 BPM Atrial Rate : 078 BPM P-R Int : 204 ms QRS Dur : 128 ms QT Int : 464 ms P-R-T Axes : 072 063 090 degrees QTc Int : 528 ms Normal sinus rhythm Non-specific intra-ventricular conduction block Possible Inferior infarct (cited on or before 20-JUN-2019) Abnormal ECG Confirmed by GISSELLE JEFFERSON, VALERIE ([id number]), publishing editor ASPEN MARTI ([id number]) on 11/23/2019 9:59:00 AM Referred By: Shay Del Rosario Confirmed By:VALERIE PITTS MD
--- NOTE | 2019-11-20 14:33 | CT_ITS ---
STUDY: CT BRAIN WITHOUT CONTRAST REASON FOR EXAM: Male, 64 years old. Weakness, fell off couch. Hx hypertension. RADIATION DOSAGE (If Supplied By Facility): CTDIvol = ( 44.99 ) mGy, DLP = ( 880.47 ) mGycm TECHNIQUE: Transaxial CT imaging of the brain was performed without administration of intravenous contrast material. Individualized dose optimization techniques were used for this CT. COMPARISON: May 14, 2019 FINDINGS: Normal soft tissue structures. Normal calvarium. There is mild cerebral atrophy with widening of the extra-axial spaces and ventricular dilatation. Normal white matter tracts of the cerebral hemispheres. Normal basal ganglia and thalami. Normal brainstem. There is mild cerebellar atrophy. There is no intracranial hemorrhage. There are no findings of an acute ischemic infarction. There is trace opacification of the ethmoid, sphenoid and visualized left maxillary sinus consistent with a history of sinusitis. CT/Brain/Head without Contrast IMPRESSION: Chronic involutional changes of the brain. Electronically Signed: Aileen Hernandez MD at 15:51 EST Tel , Service support ,
[2019-11-20] MEDS: 0.9% Normal Saline 1,000 ML 1000 ML IV ×2 (14:58→15:59)
[2019-11-20 15:00] LABS: Hematocrit 48.8 % (40-54); Hemoglobin 17.9 g/dL (13.0-16.5); Mean Corp Hgb Conc 36.7 g/dL (32-36); Mean Corpuscular Hgb 37.7 pg (27.0-32.0); Mean Corpuscular Volume 102.7 fL (80-94); Mean Platelet Vol. 9.6 fl (6.2-12.0); POSITIVE COUNT YES; POSITIVE MORPHOLOGY YES; Platelet Count 269 K/mm3 (150-450); RBC Distribution Width CV 14.6 % (11.6-14.6); RBC Distribution Width SD 55.5 fl (35.1-43.9); Red Blood Count 4.75 M/mm3 (4.6-6.2); White Blood Count 11.9 K/mm3 (4.4-11.0)
[2019-11-20 15:00] LABS: Mucous, Urine 0 SEEN /hpf (<or=2+)
--- NOTE | 2019-11-20 15:02 | NURSING ---
NEEDS REDRAW PTPPT
[2019-11-20 15:04] LABS: Differential Indicated MANUAL DIFF
[2019-11-20 15:04] LABS: Color, Urine Yellow (Yellow); Glucose, Dipstick Normal (Normal); Ketone-Dipstick 5 mg/dl (Negative); Leukocyte Esterase-Dipstick 500 /ul (Negative); Nitrite-Dipstick Positive (Negative); Occult Blood-Urine 50 /ul (Negative); Protein-Dipstick 15 mg/dl (Negative); Specific Gravity, Urine 1.015 (1.002-1.030); Urine Bilirubin Dipstick Negative (Negative); Urine Clarity Sl. Cloudy (Clear); Urine Urobilinogen Normal (Normal)
[2019-11-20 15:13] LABS: ALB/GLOB Ratio 0.7 RATIO (0.9-2.4); AST(SGOT) 180 U/L (15-37); Alanine Aminotransfer ALT/SGPT 176 U/L (16-61); Albumin, Serum 3.4 g/dL (3.2-5.0); Alkaline Phosphatase 202 U/L (45-117); Anion Gap 11 (5-15); BUN 65 mg/dL (7-18); BUN/Creat Ratio 40.4 RATIO (10-20); Calcium,Total 10.2 mg/dL (8.5-10.1); Chloride 80 mmol/L (98-107); Creatinine, Serum 1.61 mg/dL (0.70-1.30); EST Glomerular Filtration Rate 46 mL/min (>60); Est Glom Filt Rate - Afr Amer 56 mL/min (>60); Globulin 4.8 g/dL (2.2-4.2); Glucose 121 mg/dL (74-106); Magnesium 3.3 mg/dL (1.6-2.6); Potassium 3.4 mmol/L (3.5-5.1); Protein, Total 8.2 g/dL (6.4-8.2); Sodium Level 122 mmol/L (136-145)
[2019-11-20 15:16] LABS: Alcohol, Blood (Medical)-Serum < 3.0 mg/dL
[2019-11-20 15:17] LABS: Bacteria 3+ /hpf (None Seen); Red Blood Cells-Urine 5-10 SEEN /hpf (0-5); Squamous Epithelial Cells - UA 0-5 SEEN /hpf (0-5); White Blood Cells 25-50 SEEN /hpf (0-5)
[2019-11-20 15:19] LABS: CPK Total, Creatine Kinase 290 U/L (39-308); Lymphocyte 17 % (19-41); Metamyelocyte 1 % (0-1); Monocyte 9 % (0-10); Neutrophil-Band 1 % (0-5); Neutrophil-Segmented 72 % (47-70); Total Cells Counted 100 (MANUAL DIFF)
[2019-11-20 15:20] LABS: Platelet Estimate ADEQUATE (ADEQ); Reactive Lymphocyte 1+; Red Cell Morphology NORM C+C NORMAL (NORM C&C)
[2019-11-20 15:21] LABS: Absolute Lymphocyte Count 2.02 X10^3/uL (0.83-4.51); Absolute Neutrophil Count 8.7 X10^3/uL (2.0-7.7)
--- NOTE | 2019-11-20 15:24 | ED.DCSUM_ITS ---
History of Present Illness Chief Complaint: Fall Narrative: Patient presenting secondary to generalized weakness. Patient states that 4 days ago he was sitting on the couch and slumped off of the couch on the floor. Patient states he did not injure himself with that happen, but states he was so weak that he could not get up. Patient reports that he has been laying on the floor for the last 4 days. He tells me that he would not allow his to call the ambulance because I am stubborn. Patient states that he is feeling generally weak and felt that he was just unable to move so he laid on the ground. Patient denies any preceding chest pain. He does endorse that he had a mild cough. Denies any fevers nausea or vomiting. He reports that he has been having 1 loose stool per day over the course of the last 4 days while laying on the floor. He denies any abdominal pain or urinary signs or symptoms. Past Medical History - Allergies and Home Meds Allergies/Adverse Reactions: Allergies ezetimibe [From Zetia] Adverse Reaction (Severe, Verified 11/20/19 14:47) Myalgias Iodine and Iodide Containing Produc Adverse Reaction (Severe, Verified 11/20/19 14:47) Rash Hdxdtss-Tcw-Qgm Reductase Inhibitor Adverse Reaction (Severe, Verified 11/20/19 14:47) Elevated Liver Enzymes Primary Care Physician: Shay Del Rosario III, MD [Primary Care Provider] - Past Medical History: - - Coronary artery disease Surgical History: angioplasty, pacemaker implantation Smoking Status: Former smoker - Family History Maternal Family History: Family History (Last Reviewed 09/27/19 @ 18:22 by Simona Whipple) Grandmother Myocardial infarction Grandfather Myocardial infarction Review of Systems All systems negative except as indicated General: Reports: Malaise Eyes: Denies: Visual changes - bilaterally, Diplopia ENT: Denies: Rhinorrhea, Sore throat Cardiovascular: Denies: Chest pain, Palpitations Respiratory: Denies: Dyspnea, Cough, Dyspnea on exertion Gastrointestinal: Reports: Diarrhea Genitourinary: Denies: Dysuria, Hematuria, Frequency Musculoskeletal: Denies: Back pain, Extremity Pain Skin: Denies: Rash, Wounds Neurological: Reports: Weakness Physical Exam Vital Signs/Narrative: Vital Signs Temp Pulse Resp BP Pulse Ox 11/20/19 14:34 96.7 F L 81 16 121/82 H 94 11/20/19 14:23 96.7 F L 81 16 121/82 H 94 Inital Vital Signs reviewed: Yes General: - - Well-developed male unkempt, smells of urine Head: Normocephalic, Atraumatic Eyes: Perrl, EOMI ENT: Dry mucous membranes Neck: Supple, Nontender Cardiovascular: Regular rate, Regular rhythm, No murmurs Respiratory: No distress, CTA bilaterally, Chest nontender Abdomen: Soft, Nontender, Nondistended, Normal bowel sounds Extremities: No edema, - - Bruising of the knees bilaterally with normal range of motion and minimal tenderness to palpation. Neurological: Alert, Oriented x3, - - 4 out of 5 strength of the lower extremities bilaterally with +1 patellar reflexes. Psychological: Normal affect Diagnostic/Tx/Re-eval - EKG Initial EKG Interpretation: - - Sinus rhythm at 78 with a prolonged AK interval of 208. Inferior Q waves are noted. Nonspecific intraventricular block is noted. No evidence of acute ischemia or arrhythmia. - Medical Decision Making Patient presented secondary to generalized weakness. Broad work-up was obtained. EKG demonstrates no signs of ischemia. CBC was not significantly remarkable. Chemistry shows evidence of the patient having dehydration, and evidence of his chronic hyponatremia with a sodium of 122. Mild transaminitis was noted. Patient's urine was noted to be infected, patient had a culture obtained and he was given Rocephin. He was given fluid resuscitation. CT of the brain demonstrates evidence of chronic involutional changes. Chest x-ray shows some mild rotation by my personal review, but no evidence of infiltrates. Given the fact that the patient has been in ambulatory for 4 days and laying in his own urine and has a UTI I believe he requires admission. Patient will be admitted under the hospitalist. ED Disposition - Plan for ED Patient: Disposition: [facility] Diagnosis: Urinary tract infection, Dehydration, Declining functional status
[2019-11-20 15:30] LABS: Lactic Acid 2.1 mmol/L (0.4-1.9)
--- NOTE | 2019-11-20 15:30 | RAD_ITS ---
STUDY: X-RAY CHEST REASON FOR EXAM: Male, 64 years old. PT FELL FOUR DAYS AGO AND HAS BEEN ON GROUND EVER SINCE, C/O WEAKNESS TECHNIQUE: 2 frontal images of the chest were obtained. COMPARISON: July 23, 2019 FINDINGS: There is no new focal consolidation. There is a grossly stable cardiac pacer device in place. Normal size heart. Normal mediastinum and mady. Normal visualized pulmonary arteries. Normal visualized aortic arch and descending thoracic aorta. Normal visualized thoracic spine. There is a stable right healed posterior rib fracture. There is no demonstrated abnormality of the visualized soft tissue structures of the upper abdomen. RAD/Chest 1 View (Portable) IMPRESSION: No acute cardiopulmonary process. Electronically Signed: Aileen Hernandez MD at 16:14 EST Tel , Service support ,
--- NOTE | 2019-11-20 15:49 | HP.PCM_ITS ---
History of Present Illness Date of Admission: 11/20/19 Chief Complaint: weakness, mechanical fall The patient is a 64 year old M with an extensive past medical history as outlined which includes CAD status post stents and chronic alcoholism. He was admitted through the ED on 11/20/2019 with a complaint of mechanical fall 4 days prior to admission. Patient states he was getting off the couch and his legs just gave way and he slid to the ground. He denies any lightheadedness or dizziness or loss of consciousness. He denies any palpitations, fever or chills, cough, chest pain, abdominal pain or vomiting or nausea. He did admit to diarrhea which he states occurred about once daily. Patient was unable to get off the ground and refused to allow his to call the squad to help him. He therefore lay on the ground for 4 days drinking only Gatorade and water water and by his until today he said he could not take it anymore so he asked his to call the squad. In the ED, vitals were stable with blood pressure of 121/82, temperature of 97.5 and pulse rate of 81 as well as respiratory rate of 16. He was saturating at 94% on room air. Labs were significant for sodium of 122 with potassium of 3.4 and chloride of 80. Creatinine was 1.61. BUN was 65 and lactic acid was elevated at 2.1 with mild elevation in calcium at 10.2. Total bilirubin was 1.4 with elevation of AST and ALT as well as ALP. Initial troponin was negative. CBC showed WBC of 11.9 with hemoglobin of 17.9 and plate lets of 269. CPK was not elevated and was only 290. CT of the brain without contrast showed chronic involutional changes of the brain. EKG showed normal sinus rhythm with no acute ST changes. UA showed 3+ bacteria he has been admitted to be managed for debility due to mechanical falls, lactic acidosis and UTI. [] Past Medical History Past Medical History (Chronic Problems): Chronic Problems (Last Reviewed 09/27/19 @ 18:21 by Simona Whipple) Dyspnea (Chronic) Stage 1 mild COPD by GOLD classification (Chronic) FEV1 87% of predicted History of left heart catheterization (LHC) (Chronic 01/21/19) Will obtain old film from [place] from 2 years ago to see if LAD lesion has worsened. Apparently pt underwent FFR of this portion of LAD and was found to be 0.81 so no intervention was performed. He has had no AICD discharges since his cath at [place]. Intervention of this lesion is at moderate risk of the stent covering over DIAG, as well as eccentric calcium in proximal LAD sequeing into mid LAD lesion. I believe we could place the stent at the ostium of the mid LAD with minimal encroachment into DIAG, but pt has no anginal symptoms or change in his exercise capacity. I will obtain old films from [place] to compare mid LAD stenosis; if it appears to be worse, then will return for elective PCI of LAD with double wires. Hyperlipidemia (Chronic) Atherosclerotic heart disease of [place] coronary artery without angina pectoris (Chronic) 12/28/1999 distal RCA was thrombectomized and stent placed; 04/01/2000 PTCA of distal RCA and ostium of the PDA for in-stent stenosis. [facility] 11/2005. Ischemic cardiomyopathy (Chronic) Ventricular tachycardia (Chronic) 10/30/17 tsfer to [facility] with [place] storm Premature heartbeats (Chronic) Presence of automatic (implantable) cardiac defibrillator (Chronic 10/31/17) ICD Implant: 11/2005; ICD generator replacement 08/23/2010 History of coronary artery stent placement (Chronic 02/17/19) 12/28/1999 distal RCA was thrombectomized and stent placed; 04/01/2000 PTCA of distal RCA and ostium of the PDA for in-stent stenosis. Successful PTCA/DEMETRIO to Mid LAD with a 3.0 x 28 Promus Synergy, post dilated in middle stent with a 3.0 x 12 NC Balloon; 75%-->0%, no dissection. Successful PTCA/DEMETRIO Mid LAD across bifurcation of DIAG#1 and telescoped into mid LAD stent with a 4.0 x 28 Promus Synergy, post dilated in the proximal LAD with a 4.0 x 8 and a 4.5 x 8 NC Balloon; 855-->0%, no dissection. 02/17/2019 Successful PCI with PTCA to the ostial DIAG #1 through struts of LAD stent with a 2.5 x 8 Ballloon; 70%-->30%, no dissection. NO additional stenting needed or attempted. Benign hypertension (Chronic) Tobacco user (Chronic) History of alcoholism (Chronic) Medical History: Medical History (Last Reviewed 09/27/19 @ 18:21 by Simona Whipple) Hyperlipidemia (Chronic) E78.5 Atherosclerotic heart disease of [place] coronary artery without angina pectoris (Chronic) I25.10 12/28/1999 distal RCA was thrombectomized and stent placed; 04/01/2000 PTCA of distal RCA and ostium of the PDA for in-stent stenosis. [facility] 11/2005. Ischemic cardiomyopathy (Chronic) I25.5 Ventricular tachycardia (Chronic) I47.2 10/30/17 tsfer to [facility] with [place] storm Premature heartbeats (Chronic) I49.40 Benign hypertension (Chronic) I10 Tobacco user (Chronic) Z72.0 History of alcoholism (Chronic) F10.21 History of echocardiogram Onset Date: 04/03/17 Z92.89 EF 40-45% History of stress test Onset Date: 02/16/10 Z92.89 Allergies ezetimibe [From Zetia] Adverse Reaction (Severe, Verified 11/20/19 14:47) Myalgias Iodine and Iodide Containing Produc Adverse Reaction (Severe, Verified 11/20/19 14:47) Rash Hclbmyv-Cvu-Kbr Reductase Inhibitor Adverse Reaction (Severe, Verified 11/20/19 14:47) Elevated Liver Enzymes Home Medications: Ambulatory Orders Medication Instructions Recorded aspirin 81 mg tablet,delayed 81 mg PO QDAY 10/14/17 release nitroglycerin 0.4 mg sublingual 0.4 mg SUBLINGUAL Q5M PRN #25 tab 05/08/18 tablet Amiodarone HCl 200 mg PO DAILY 11/20/19 Clopidogrel Bisulfate [Clopidogrel] 75 mg PO DAILY 11/20/19 Lisinopril 20 mg PO BID 11/20/19 Metoprolol Succinate [Toprol Xl] 50 mg PO ONCE 11/20/19 Surgical History: Surgical History (Last Reviewed 09/27/19 @ 18:22 by Simona Whipple) History of left heart catheterization (LHC) (Chronic) Onset Date: 01/21/19 Z98.890 Will obtain old film from [place] from 2 years ago to see if LAD lesion has worsened. Apparently pt underwent FFR of this portion of LAD and was found to be 0.81 so no intervention was performed. He has had no AICD discharges since his cath at [place]. Intervention of this lesion is at moderate risk of the stent covering over DIAG, as well as eccentric calcium in proximal LAD sequeing into mid LAD lesion. I believe we could place the stent at the ostium of the mid LAD with minimal encroachment into DIAG, but pt has no anginal symptoms or change in his exercise capacity. I will obtain old films from [place] to compare mid LAD stenosis; if it appears to be worse, then will return for elective PCI of LAD with double wires. Presence of automatic (implantable) cardiac defibrillator (Chronic) Onset Date: 10/31/17 Z95.810 ICD Implant: 11/2005; ICD generator replacement 08/23/2010 History of coronary artery stent placement (Chronic) Onset Date: 02/17/19 Z95.5 12/28/1999 distal RCA was thrombectomized and stent placed; 04/01/2000 PTCA of distal RCA and ostium of the PDA for in-stent stenosis. Successful PTCA/DEMETRIO to Mid LAD with a 3.0 x 28 Promus Synergy, post dilated in middle stent with a 3.0 x 12 NC Balloon; 75%-->0%, no dissection. Successful PTCA/DEMETRIO Mid LAD across bifurcation of DIAG#1 and telescoped into mid LAD stent with a 4.0 x 28 Promus Synergy, post dilated in the proximal LAD with a 4.0 x 8 and a 4.5 x 8 NC Balloon; 855-->0%, no dissection. 02/17/2019 Successful PCI with PTCA to the ostial DIAG #1 through struts of LAD stent with a 2.5 x 8 Ballloon; 70%-->30%, no dissection. NO additional stenting needed or attempted. Hx of knee surgery Z98.890 Surgical History: angioplasty, pacemaker implantation Lives: Spouse/ Significant Other Smoking Status: Former smoker Alcohol: Occasional - drinks ~ 5 beers when he does drink Drugs: None - *Family History Maternal Family History: Family History (Last Reviewed 09/27/19 @ 18:22 by Simona Whipple) Grandmother Myocardial infarction Grandfather Myocardial infarction Review of Systems Constitutional: Reports: Malaise, Weakness, Fatigue. Denies: Anorexia, Chills, Fever Eyes: Denies: Blurred vision HEENT: Denies: Head Aches, Sinus Congestion, Sinus Drainage Cardiovascular: Denies: Chest Pain, Chest Pressure, Chest Tightness, Heaviness, Light Headedness, Orthopnea, Palpitations Respiratory: Denies: Cough, Shortness of Breath, Shortness of breath at rest, Shortness of breath upon exertion, Sputum production Gastrointestinal: Denies: Abdominal Pain, Nausea, Vomiting Genitourinary: Reports: Frequency. Denies: Dysuria, Incontinence, Urgency Musculoskeletal: Denies: Joint Pain, Joint Tenderness Skin: Denies: Rash, Wounds Neurological: Denies: Numbness, Tingling, Focal weakness Psychiatric: Denies: Anxiety, Depression, Homicidal Ideations, Suicidal Ideations Hematologic/ Lymphatic: Denies: Easy Bruising, Easy Bleeding VTE Information - Inpt Only VTE Present on Admission: No VTE Pharm Prophylaxis ordered?: Yes Patient Problems: Active and Suspected Problems (Last Reviewed 09/27/19 @ 18:21 by Simona Whipple) Urinary tract infection (Acute) Dehydration (Acute) Declining functional status (Acute) - Physical Exam Vitals/I&O's: Vital Signs Temp Pulse Resp BP Pulse Ox 96.7 F L 81 16 121/82 H 94 11/20/19 14:34 11/20/19 14:34 11/20/19 14:34 11/20/19 14:34 11/20/19 14:34 Oxygen Delivery Method Room Air Weight: 206 lb 12.697 oz Body Mass Index (BMI) 26.5 General: Alert, Oriented x3, Cooperative, Lethargic HEENT: Atraumatic, PERRLA, EOMI, Normocephalic, - - mild tinge of jaundice on sclera Oral: Dry Mucosa Neck: Supple, No JVD, Negative Carotid Bruits Lungs: - - has coarse crackles in right mid and lower lung jacob, no wheezing. On room air Cardiovascular: Regular rate, Regular Rhythm, Normal S1, Normal S2, No murmurs Abdomen: Bowel Sounds Present, Soft, Non Tender, Non-Distended, No Hepato- splenomegaly Extremities: No clubbing, No cyanosis, No edema, Capillary Refill Less than 3 Seconds Skin: No rashes, No breakdown Musculoskeletal: No Tenderness to Palpation of Joints or Extremities Lymphatic: No Cervical, Supraclavicular, or Inguinal Adenopathy Neurological: Cranial nerves II-XII grossly intact, Neuro grossly intact, Motor Exam 5/5 strength throughout Psych/Mental Status: Flat Affect, Alert and oriented to time, place, person, mood and affect Laboratory Results 11/20/19 14:45: WBC 11.9 H, RBC 4.75, Hgb 17.9 H, Hct 48.8, MCV 102.7 H, MCH 37.7 H, MCHC 36.7 H, RDW Std Deviation 55.5 H, RDW Coeff of Yoli 14.6, Plt Count 269, MPV 9.6, Neut % (Auto) Not Reportable, Absolute Neuts (auto) 8.7 H, Absolute Lymphs (auto) 2.02, Total Counted 100, Neutrophils % (Manual) 72 H, Band Neutrophils % 1, Lymphocytes % (Manual) 17 L, Monocytes % (Manual) 9, Metamyelocytes % 1, Diff Path Review May foll, Reactive Lymphocytes 1+, Platelet Estimate ADEQUATE, RBC Morphology NORM C+C 11/20/19 14:45: PT Cancelled, INR Cancelled, APTT Cancelled 11/20/19 14:45: Sodium 122 L, Potassium 3.4 L, Chloride 80 L, Carbon Dioxide 31.0, Anion Gap 11, BUN 65 H, Creatinine 1.61 H, Estim Creat Clear Calc 54.60, Est GFR (MDRD) Af Amer 56 L, Est GFR (MDRD) Non-Af 46 L, BUN/Creatinine Ratio 40.4 H, Glucose 121 H, Calcium 10.2 H, Magnesium 3.3 H, Total Bilirubin 1.40 H, AST 180 H, ALT 176 H, Alkaline Phosphatase 202 H, Troponin I < 0.015, Total Protein 8.2, Albumin 3.4, Globulin 4.8 H, Albumin/Globulin Ratio 0.7 L 11/20/19 14:45: Ethyl Alcohol < 3.0 11/20/19 14:45: Lactic Acid 2.1 H* 11/20/19 14:45: Total Creatine Kinase 290 11/20/19 14:50: Urine Color Yellow, Urine Clarity Sl. Cloudy, Urine pH 6.0, Ur Specific Tyler 1.015, Urine Protein 15 H, Urine Glucose (UA) Normal, Urine Ketones 5 H, Urine Occult Blood 50 H, Urine Nitrite Positive H, Urine Bilirubin Negative, Urine Urobilinogen Normal, Ur Leukocyte Esterase 500 H, Urine RBC 5-10 SEEN, Urine WBC 25-50 SEEN, Ur Squamous Epith Cells 0-5 SEEN, Urine Bacteria 3+, Urine Mucus 0 SEEN 11/20/19 15:26: PT Pending, INR Pending, APTT Pending Diagnostic Data Brain CT 11/20/19 14:33 IMPRESSION: Chronic involutional changes of the brain. Electronically Signed: Aileen Hernandez MD at 15:51 EST Tel , Service support , Current Medications Sodium Chloride () 1,000 mls @ 1,000 mls/hr IV .Q1H JENNIFER Stop: 11/20/19 16:34 Ceftriaxone Sodium (Rocephin) 1 gm in 50 mls @ 100 mls/hr IV X1 ONE Stop: 11/20/19 15:51 Assessment/Plan All Active Problems (Last Reviewed 09/27/19 @ 18:21 by Simona Whipple) Urinary tract infection (Acute) Dehydration (Acute) Declining functional status (Acute) 4-year-old male admitted with a complaint of mechanical fall. 1. Debility due to UTI and mechanical falls * Admit to PCU with telemetry. * UA shows 3+ bacteria. CBC shows WBC of 11.9. * Lactic acid is 2.1 which is likely due to dehydration. * Order urine cultures and blood cultures * he had a few crackles in right mid and lower lung jacob, but CXR showed no acute cardiopulmonary process. * I independently reviewed CXR and saw no evidence of infiltrate or any acute cardiopulmonary process. Crackles may be due to atelectasis from lying down for so long * Started on IV ceftriaxone in the ED. Will continue. * Hydrated with IV fluid normal saline at 150 cc/h. * PT OT consult. * Fall precautions. * 2. Mechanical falls * Likely due to UTI. Also dehydrated. Fall precautions. PT OT consults. * 3. Lactic acidosis: likely due to dehydration from decreased intake. lactic acid is 2.1. Will hydrate and monitor 4. UTI: as under 1. 5. Raoul on CKD: Cr is 1.61,baseline is ~ 0.76. Likely pre-renal, from decreased intake. hydrate and monitor 6. Acute on chronic hyponatremia * Sodium is 122. Sodium in April 2019 was 128 in June 2019 was 124. This is likely due to chronic alcohol use. Will hydrate very gently hydrate 30. * 7. Hypokalemia: Potassium is 3.4. Will replace and monitor. 8. Elevated liver enzymes: * Total bilirubin is 1.4 with AST/ALT of 184/1 7 6 and ALP of 202. * This is acute. * Likely due to chronic alcohol disease though dehydration may also play a role. Will trend and monitor. 9. CAD s/p stents: On aspirin, Plavix and statin as well as metoprolol. 10. A. fib: Rate and rhythm controlled. On amiodarone and metoprolol. 11. Hypertension: On metoprolol and lisinopril. 12. Ischemic cardiomyopathy * s/p ICD in place due to history of ventricular tachycardia * stable * DVT prophylaxis: SCDs. CODE STATUS: Full code * Patient counseled extensively about different types of CODE STATUS including full code, DNR CCA and DNR CCA. Patient elects to be full code. Total [id number]-bj-[id number] time 17 minutes. * Code Visit Inpatient E&M: 99521 Init Hosp L3 Procedures: 78227 Advncd Care Plan 30 Min
--- NOTE | 2019-11-20 15:50 | NURSING ---
DR NORBERTO SHANE
--- NOTE | 2019-11-20 15:55 | NURSING ---
PCU UTI, DEHYDRATION, LACTIC ACIDOSIS KORAM
[2019-11-20] MEDS: Ceftriaxone 1 GM/50 ML BAG IV ×2 (15:57→21:59)
[2019-11-20 15:59] LABS: International Normalized Ratio 1.1; Prothrombin Time (Protime)PT. 14.4 SECONDS (11.7-14.9)
[2019-11-20] MEDS: 0.9% Normal Saline 1,000 ML 150 ML IV (17:37)
[2019-11-20] MEDS: Enoxaparin 40 MG/0.4 ML Syringe SC (17:49)
[2019-11-20 18:51] LABS: Reflex Lactate? Y
[2019-11-20 20:03] LABS: Lactic Acid 1.9 mmol/L (0.4-1.9)
[2019-11-20] MEDS: Acetaminophen 325 MG Tablet 650 MG PO (20:04)
[2019-11-20 20:44] LABS: Phosphorus 4.4 mg/dL (2.5-4.9)
--- NOTE | 2019-11-20 21:57 | NURSING ---
Pt. states it has been a couple weeks since he drank beer. Pt. states he drinks 4-5 beers at a time when he drinks.Pt. states he does not drink alcohol.
[2019-11-20] MEDS: MELATONIN 3 MG TABLET PO (21:59)
[2019-11-21] VITALS (10 sets, daily range): BP systolic 123–130; BP diastolic 67–75; PULSE 76–93; RESP 16–18; TEMP 36.3–36.6; O2SAT 95–97
[2019-11-21] MEDS: 0.9% Normal Saline 1,000 ML 150 ML IV (00:18)
[2019-11-21] MEDS: Enoxaparin 40 MG/0.4 ML Syringe SC (06:15)
[2019-11-21 07:18] LABS: Hematocrit 38.9 % (40-54); Hemoglobin 14.4 g/dL (13.0-16.5); Mean Corpuscular Hgb 38.7 pg (27.0-32.0); Mean Corpuscular Volume 104.6 fL (80-94); Mean Platelet Vol. 9.2 fl (6.2-12.0); POSITIVE COUNT YES; POSITIVE MORPHOLOGY YES; Platelet Count 223 K/mm3 (150-450); RBC Distribution Width CV 14.6 % (11.6-14.6); Red Blood Count 3.72 M/mm3 (4.6-6.2); White Blood Count 10.7 K/mm3 (4.4-11.0)
[2019-11-21 07:40] LABS: Differential Indicated MANUAL DIFF
[2019-11-21 07:46] LABS: ALB/GLOB Ratio 0.7 RATIO (0.9-2.4); AST(SGOT) 106 U/L (15-37); Alanine Aminotransfer ALT/SGPT 110 U/L (16-61); Albumin, Serum 2.4 g/dL (3.2-5.0); Alkaline Phosphatase 138 U/L (45-117); Anion Gap 9 (5-15); BUN 40 mg/dL (7-18); BUN/Creat Ratio 44.1 RATIO (10-20); Calcium,Total 8.5 mg/dL (8.5-10.1); Chloride 95 mmol/L (98-107); Creatinine, Serum 0.91 mg/dL (0.70-1.30); EST Glomerular Filtration Rate 90 mL/min (>60); Est Glom Filt Rate - Afr Amer 108 mL/min (>60); Globulin 3.4 g/dL (2.2-4.2); Glucose 116 mg/dL (74-106); Potassium 3.3 mmol/L (3.5-5.1); Protein, Total 5.8 g/dL (6.4-8.2); Sodium Level 131 mmol/L (136-145)
[2019-11-21 07:58] LABS: Eosinophil 1 % (0-5); Lymphocyte 9 % (19-41); Monocyte 10 % (0-10); Neutrophil-Band 1 % (0-5); Neutrophil-Segmented 79 % (47-70); Total Cells Counted 100 (MANUAL DIFF)
[2019-11-21 07:59] LABS: Platelet Estimate ADEQUATE (ADEQ); Red Cell Morphology NORM C+C NORMAL (NORM C&C)
[2019-11-21 08:00] LABS: Absolute Lymphocyte Count 0.96 X10^3/uL (0.83-4.51); Absolute Neutrophil Count 8.6 X10^3/uL (2.0-7.7)
--- NOTE | 2019-11-21 08:01 | PN_ITS ---
Patient Problems: Active and Suspected Problems (Last Reviewed 09/27/19 @ 18:21 by Simona Whipple) Urinary tract infection (Acute) Dehydration (Acute) Declining functional status (Acute) Reason for Visit: The patient was admitted after a fall that happened 4 days prior to admission. Patient has generalized weakness, lethargy and UTI Vitals/I&O's: Vital Signs Temp Pulse Resp BP Pulse Ox 97.3 F L 78 18 123/68 H 96 11/21/19 03:55 11/21/19 06:51 11/21/19 03:55 11/21/19 03:55 11/21/19 03:55 Oxygen Delivery Method Room Air Weight: 202 lb 9.677 oz Body Mass Index (BMI) 25.9 Intake and Output for Last 24 Hours 11/19/19 11/20/19 11/21/19 23:59 23:59 23:59 Intake Total 2530 / 2530 2049 / 2049 Output Total 425 / 425 100 / 100 Balance 2104 / 2104 1949 / 1949 General: Oriented x3, Cooperative, Lethargic HEENT: Atraumatic, PERRLA, EOMI, Normocephalic Neck: Supple, No JVD, Negative Carotid Bruits Lungs: Clear to auscultation, No rhonchi, No wheeze, No rales, Diminished - Patient does not have deep inspiratory effort. Cardiovascular: Regular rate, Regular Rhythm, Normal S1, Normal S2, No murmurs, - - Telemetry reviewed. Patient was bradycardic last night heart rate between 45 to 55/min. Multiple PVCs. Currently in 68/min, sinus rhythm Abdomen: Bowel Sounds Present, Soft, Non Tender, Non-Distended, - - Chronic urinary incontinence Extremities: No edema, Capillary Refill Less than 3 Seconds Skin: - - Mild bruise over lower extremity Musculoskeletal: No Tenderness to Palpation of Joints or Extremities, Arthritic Changes Neurological: Cranial nerves II-XII grossly intact Psych/Mental Status: Normal Affect, Appropriate Laboratory Results 11/20/19 14:45: WBC 11.9 H, RBC 4.75, Hgb 17.9 H, Hct 48.8, MCV 102.7 H, MCH 37.7 H, MCHC 36.7 H, RDW Std Deviation 55.5 H, RDW Coeff of Yoli 14.6, Plt Count 269, MPV 9.6, Neut % (Auto) Not Reportable, Absolute Neuts (auto) 8.7 H, Absolute Lymphs (auto) 2.02, Total Counted 100, Neutrophils % (Manual) 72 H, Band Neutrophils % 1, Lymphocytes % (Manual) 17 L, Monocytes % (Manual) 9, Metamyelocytes % 1, Diff Path Review May foll, Reactive Lymphocytes 1+, Platelet Estimate ADEQUATE, RBC Morphology NORM C+C 11/20/19 14:45: PT Cancelled, INR Cancelled, APTT Cancelled 11/20/19 14:45: Sodium 122 L, Potassium 3.4 L, Chloride 80 L, Carbon Dioxide 31.0, Anion Gap 11, BUN 65 H, Creatinine 1.61 H, Estim Creat Clear Calc 54.60, Est GFR (MDRD) Af Amer 56 L, Est GFR (MDRD) Non-Af 46 L, BUN/Creatinine Ratio 40.4 H, Glucose 121 H, Calcium 10.2 H, Magnesium 3.3 H, Total Bilirubin 1.40 H, AST 180 H, ALT 176 H, Alkaline Phosphatase 202 H, Troponin I < 0.015, Total Protein 8.2, Albumin 3.4, Globulin 4.8 H, Albumin/Globulin Ratio 0.7 L 11/20/19 14:45: Ethyl Alcohol < 3.0 11/20/19 14:45: Lactic Acid 2.1 H* 11/20/19 14:45: Total Creatine Kinase 290 11/20/19 14:50: Urine Color Yellow, Urine Clarity Sl. Cloudy, Urine pH 6.0, Ur Specific [place] 1.015, Urine Protein 15 H, Urine Glucose (UA) Normal, Urine Ketones 5 H, Urine Occult Blood 50 H, Urine Nitrite Positive H, Urine Bilirubin Negative, Urine Urobilinogen Normal, Ur Leukocyte Esterase 500 H, Urine RBC 5-10 SEEN, Urine WBC 25-50 SEEN, Ur Squamous Epith Cells 0-5 SEEN, Urine Bacteria 3+, Urine Mucus 0 SEEN 11/20/19 14:51: Phosphorus 4.4 11/20/19 15:26: PT 14.4, INR 1.1, APTT 26.0 11/20/19 19:30: Lactic Acid 1.9 11/21/19 05:50: WBC Cancelled, Corrected WBC Cancelled, RBC Cancelled, Hgb Cancelled, Hct Cancelled, MCV Cancelled, MCH Cancelled, MCHC Cancelled, RDW Std Deviation Cancelled, RDW Coeff of Yoli Cancelled, Plt Count Cancelled, MPV Cancelled, Immature Gran % (Auto) Cancelled, Neut % (Auto) Cancelled, Lymph % (Auto) Cancelled, [place] % (Auto) Cancelled, Eos % (Auto) Cancelled, Baso % (Auto) Cancelled, Absolute Neuts (auto) Cancelled, Absolute Lymphs (auto) Cancelled, Total Counted Cancelled, Neutrophils % (Manual) Cancelled, Band Neutrophils % Cancelled, Lymphocytes % (Manual) Cancelled, Monocytes % (Manual) Cancelled, Eosinophils % (Manual) Cancelled, Basophils % (Manual) Cancelled, Metamyelocytes % Cancelled, Myelocytes % Cancelled, Promyelocytes % Cancelled, Blast Cells % Cancelled, Plasma Cell % (Manual) Cancelled, Other Cells % Cancelled, Nucleated RBC % Cancelled, Nucleated RBCs/100 WBC Cancelled, Differential Comment Cancelled, Diff Path Review Cancelled, Hypersegmented Neuts Cancelled, Atypical Lymphocytes Cancelled, Reactive Lymphocytes Cancelled, Smudge Cells Cancelled, Toxic Granulation Cancelled, Toxic Vacuolation Cancelled, Dohle Bodies Cancelled, Dalia Rods Cancelled, Platelet Estimate Cancelled, Plt Morphology Comment Cancelled, RBC Morphology Cancelled, Polychromasia Cancelled, Hypochromasia Cancelled, Poikilocytosis Cancelled, Basophilic Stippling Cancelled, Anisocytosis Cancelled, Microcytosis Cancelled, Macrocytosis Cancelled, Spherocytes Cancelled, Sickle Cells Cancelled, Target Cells Cancelled, Tear Drop Cells Cancelled, Ovalocytes Cancelled, Stomatocytes Cancelled, Roy-[place] Bodies Cancelled, Ronak Cells Cancelled, Bite Cells Cancelled, Crenated Cell Cancelled, Acanthocytes (Spur) Cancelled, Rouleaux C ancelled, Schistocytes Cancelled 11/21/19 05:50: Sodium Cancelled, Potassium Cancelled, Chloride Cancelled, Carbon Dioxide Cancelled, Anion Gap Cancelled, BUN Cancelled, Creatinine Cancelled, Estim Creat Clear Calc Cancelled, Est GFR (MDRD) Af Amer Cancelled, Est GFR (MDRD) Non-Af Cancelled, BUN/Creatinine Ratio Cancelled, Glucose Cancelled, Calcium Cancelled, Total Bilirubin Cancelled, AST Cancelled, ALT Cancelled, Alkaline Phosphatase Cancelled, Total Protein Cancelled, Albumin Cancelled, Globulin Cancelled, Albumin/Globulin Ratio Cancelled 11/21/19 07:10: Sodium 131 L, Potassium 3.3 L, Chloride 95 L, Carbon Dioxide 27.0, Anion Gap 9, BUN 40 H, Creatinine 0.91, Estim Creat Clear Calc 96.60, Est GFR (MDRD) Af Amer 108, Est GFR (MDRD) Non-Af 90, BUN/Creatinine Ratio 44.1 H, Glucose 116 H, Calcium 8.5, Total Bilirubin 0.90, AST 106 H, ALT 110 H, Alkaline Phosphatase 138 H, Total Protein 5.8 L, Albumin 2.4 L, Globulin 3.4, Albumin/Globulin Ratio 0.7 L 11/21/19 07:10: WBC 10.7, RBC 3.72 L, Hgb 14.4, Hct 38.9 L, MCV 104.6 H, MCH 38.7 H, MCHC 37.0 H, RDW Std Deviation 56.0 H, RDW Coeff of Yoli 14.6, Plt Count 223, MPV 9.2, Neut % (Auto) Not Reportable, Absolute Neuts (auto) 8.6 H, Absolute Lymphs (auto) 0.96, Total Counted 100, Neutrophils % (Manual) 79 H, Band Neutrophils % 1, Lymphocytes % (Manual) 9 L, Monocytes % (Manual) 10, Eosinophils % (Manual) 1, Diff Path Review March, Platelet Estimate ADEQUATE, RBC Morphology NORM C+C Current Medications Acetaminophen (Tylenol) 650 mg PO Q6H PRN PRN PRN Reason: Pain Score 1-3/Temp > 100.7 F Last Admin: 11/20/19 20:04 Dose: 650 mg Documented by: Calamine/Phenol (Calmoseptine Ointment) 1 applic TOPICAL 4X/DAY [facility]; Protocol Last Admin: 11/20/19 21:59 Dose: Not Given Documented by: Enoxaparin Sodium (Lovenox) 40 mg SC DAILY@0600 [facility] Last Admin: 11/21/19 06:15 Dose: 40 mg Documented by: Folic Acid (Folic Acid) 1 mg PO DAILY@0800 [facility] Stop: 11/23/19 08:01 Glucagon () 1 mg IM .X1 PRN PRN Reason: Hypoglycemia Ceftriaxone Sodium (Rocephin) 1 gm in 50 mls @ 100 mls/hr IV Q12 [facility] Last Infusion: 11/20/19 22:49 Dose: Infused Documented by: Dextrose (Dextrose 10%-Water) 250 mls @ 999 mls/hr IV .Q16M PRN; Protocol PRN Reason: HYPOGLYCEMIA Sodium Chloride () 250 mls @ 15 mls/hr IV .[id number] PRN PRN Reason: Saline Flush Sodium Chloride () 250 mls @ 15 mls/hr IV .[id number] PRN PRN Reason: Additional IVPB Infusion Lorazepam (Ativan) 2 mg PO Q2H PRN PRN; Protocol PRN Reason: CIWA score > 8 but <15 Lorazepam (Ativan) 2 mg PO UD PRN; Protocol PRN Reason: CIWA score >/=15. Lorazepam (Ativan) 2 mg IV Q2H PRN PRN; Protocol PRN Reason: CIWA score > 8 but <15 Lorazepam (Ativan) 2 mg IV UD PRN; Protocol PRN Reason: CIWA score >/=15. Melatonin (Melatonin) 3 mg PO QHS [facility] Last Admin: 11/20/19 21:59 Dose: 3 mg Documented by: Nutritional Formula (Lactose Free) (Ensure Enlive) 120 ml PO 4X/DAY [facility] Last Admin: 11/20/19 20:05 Dose: 120 ml Documented by: Sodium Chloride () 10 - 40 ml IV UD PRN PRN Reason: SALINE FLUSH Thiamine HCl (Vitamin B1) 100 mg PO BIDCM [facility] Stop: 11/23/19 17:01 STROKE Vital Signs/Narrative: Vital Signs Pulse 11/21/19 06:51 78 Medical Necessity - Tobacco Use Smoking Status: Former smoker Assessment/Plan All Active Problems (Last Reviewed 09/27/19 @ 18:21 by Simona Whipple) Urinary tract infection (Acute) Dehydration (Acute) Declining functional status (Acute) This is a 64-year-old male admitted with a complaint of generalized weakness and mechanical fall, 4 days prior to admission. The patient has history of coronary artery disease status post stents, chronic alcoholism. EKG showed normal sinus rhythm with no acute ST-T changes. CPK 290. CT brain no acute change. 1. Severe sepsis (leukocytosis about 12,000 with lactic acid 2.1) sec secondary to UTI: Patient is being admitted on PCU. UA is positive of 3+ bacteria, WBC 25-50, LE 500, positive nitrite. Presumed in urine culture shows E. coli more than 100,000 colonies. On IV Rocephin. Lactic acid 2.1. Repeat lactic acid 1.1. Blood cultures pending. I independently reviewed chest x-ray and it does not show acute cardiopulmonary process. 2. Generalized weakness and mechanical falls: CK 290. No rhabdomyolysis. * Likely due to UTI. Also dehydrated. Fall precautions. PT OT consults. Continue IV fluid as patient is still dehydrated. 3. Lactic acidosis: likely due to dehydration from decreased intake. lactic acid is 2.1. Lactic acidosis resolved. 4. Ermias on CKD: Cr is 1.61,baseline is ~ 0.76. Likely pre-renal, from decreased intake and hypovolemia. ERMIAS resolved. Repeat creatinine 0.9. BUN is still high 40 suggestive of dehydration. Continue holding lisinopril. 5. Acute on chronic hyponatremia * Sodium is 122. Sodium in April 2019 was 128 in June 2019 was 124. This is likely due to chronic alcohol use. * Mild hypokalemia: K3.3. 6 Acute on chronic alcoholic hepatitis: * Total bilirubin is 1.4 with AST/ALT of 184/17 6 and ALP of 202. * Repeat LFTs shows improvement in ALT and AST. Alkaline phosphatase 138. Total bilirubin normal. 7. CAD s/p stents: On aspirin, Plavix and statin as well as metoprolol. 8. A. fib: Rate and rhythm controlled. On amiodarone and metoprolol. Patient had bradycardia on 11/20 which resolved. 9. Hypertension: On metoprolol and lisinopril. 10. Double vessel coronary artery disease with chronic systolic heart failure suggestive of ischemic cardiomyopathy * s/p ICD in place due to history of ventricular tachycardia * stable * Patient had a stress echo in December 2018. Reported final LVEF 35%. It was positive for ischemia by echocardiographic criteria subsequently had cardiac cath and reported as double vessel coronary artery disease of distal RCA and mid LAD at bifurcation of large diagonal 1 branch. At that time, FFR of LAD was 0.81 and no intervention performed with patient did not had active angina symptoms and it was technically difficult because of anatomy. EF by LV gram 45% DVT prophylaxis: On Lovenox 40 mg subcu daily Total time of the visit including total time spent in counseling or coordination of care, (more than 50% of the total time, spent in obtaining medical information from nurses and other ancillary care providers), medical records including stress test and cardiac cath, review of labs and imaging is 40 minutes Code Visit Inpatient E&M: [id number] [facility] Hosp L3
[2019-11-21] MEDS: Thiamine Hydrochloride 100 MG Tablet PO ×2 (09:04→17:18)
[2019-11-21] MEDS: Folic Acid 1 MG Tablet PO (09:04)
[2019-11-21] MEDS: Ceftriaxone 1 GM/50 ML BAG IV ×2 (09:04→21:24)
[2019-11-21] MEDS: Menthol/Lanolin/Calamine/Znox 113 GM Tube 1 APPLIC TOPICAL ×4 (09:05→22:25)
[2019-11-21] MEDS: Aspirin E.C. 81 MG Tablet PO (10:28)
[2019-11-21] MEDS: Metoprolol(XL)Succ 50 MG Tablet PO (10:28)
[2019-11-21] MEDS: Clopidogrel Bisulfate 75 MG Tablet PO (10:29)
[2019-11-21] MEDS: Amiodarone 200 MG Tablet PO (10:29)
[2019-11-21] MEDS: 0.9% Normal Saline 1,000 ML 100 ML IV (11:23)
[2019-11-21] MEDS: Acetaminophen 325 MG Tablet 650 MG PO (15:08)
[2019-11-21] MEDS: MELATONIN 3 MG TABLET PO (22:26)
[2019-11-22] VITALS (10 sets, daily range): BP systolic 116–140; BP diastolic 69–82; PULSE 77–94; RESP 14–18; TEMP 36.3–36.6; O2SAT 94–97
[2019-11-22] MEDS: Enoxaparin 40 MG/0.4 ML Syringe SC (06:37)
[2019-11-22] MEDS: Acetaminophen 325 MG Tablet 650 MG PO (06:40)
[2019-11-22] MEDS: Clopidogrel Bisulfate 75 MG Tablet PO (08:56)
[2019-11-22] MEDS: Folic Acid 1 MG Tablet PO (08:56)
[2019-11-22] MEDS: Aspirin E.C. 81 MG Tablet PO (08:57)
[2019-11-22] MEDS: Amiodarone 200 MG Tablet PO (08:57)
[2019-11-22] MEDS: Thiamine Hydrochloride 100 MG Tablet PO ×2 (08:57→17:04)
[2019-11-22] MEDS: Metoprolol(XL)Succ 50 MG Tablet PO (08:57)
[2019-11-22] MEDS: Nitrofurantoin Macrocrystals 100 MG Capsule PO ×2 (10:22→21:23)
[2019-11-22] MEDS: Menthol/Lanolin/Calamine/Znox 113 GM Tube 1 APPLIC TOPICAL ×4 (10:22→21:23)
--- NOTE | 2019-11-22 12:58 | CASEMGMT ---
ROLANDO met with patient, introduced self and role at [facility]. ROLANDO explained it is being recommended that he go to a [facility] facility for rehab. ROLANDO told him SW has been told he is his 's primary caregiver. SW asked if she is able to do anything for herself. At first he said no, then as the conversation went on she is able to go to the bathroom on her own, take her meds on her own, and get a soda out of the refrigerator. He said she uses a rollator. She can do all of this as long as her legs are working, sometimes her legs give out on her. ROLANDO asked if he has any family that is able to assist. He said he does not have a good relationship with his brother. Patient is not on good terms with her sister anymore. ROLANDO asked if they have any services coming into the home through [employer]. He said they do not as his does not want anyone in the house as it is messy. ROLANDO told him ROLANDO could call Adult Protective Services and ask them to check on her. He said he does not want SW to do this. He said she is aware he will need to go to a alf and she told him to go and get better so he can come home. ROLANDO gave him the list of facilities that are in network with his insurance. [facility] was his first choice and [facility] is his second choice. ROLANDO told him ROLANDO will work on this referral and let him know as soon as ROLANDO hears back from [facility]. ROLANDO faxed referral to [facility] and also left a message with referral. Plan: SNF pending accepting facility and insurance approval. Sylvie ROSARIO MSW
[2019-11-22 14:08] LABS: Pathologist Review Reviewed
[2019-11-22 14:17] LABS: Pathologist Review Reviewed
--- NOTE | 2019-11-22 14:18 | CASEMGMT ---
Addendum entered by Sylvie Holm 11/22/19 14:38: ROLANDO notified patient that [facility] can take him and that we will just need to wait on insurance to approve. He thanked SW. Sylvie HAMILTON Original Note: SW received a message from [facility] and they are not able to take patient as they do not have any Medicaid beds. ROLANDO notified patient and he asked that SW make a referral to [facility]. ROLANDO faxed referral to [facility]. Short time later ROLANDO received a call from [facility] and they can accept patient. [facility] will start pre-cert request. ROLANDO will notify patient. Sylvie HAMILTON
--- NOTE | 2019-11-22 16:01 | PCM.PN.HOSP ---
Patient Problems: Active and Suspected Problems (Last Reviewed 09/27/19 @ 18:21 by Simona Whipple) Urinary tract infection (Acute) Dehydration (Acute) Declining functional status (Acute) Reason for Visit: FTT Subjective: Feels weak. Unable to get up for 4 days, so laid on the floor during this time until he allowed his to call EMS. States that he is seeing this. Last drink of alcohol was 2 weeks ago and prior to that was drinking 2-4 beers per day--no other alcohol. Vitals/I&O's: Vital Signs Temp Pulse Resp BP Pulse Ox 36.6 C 79 14 140/82 H 97 11/22/19 15:28 11/22/19 15:28 11/22/19 15:28 11/22/19 15:28 11/22/19 15:28 Oxygen Delivery Method Room Air Weight: 91.9 kg Body Mass Index (BMI) 25.9 Intake and Output for Last 24 Hours 11/20/19 11/21/19 11/22/19 23:59 23:59 23:59 Intake Total 2530 / 2530 4676.25 / 4676.25 1040 / 1040 Output Total 425 / 425 100 / 100 Balance 2105 / 2105 4576.25 / 4576.25 1040 / 1040 General: Alert, No apparent distress HEENT: Atraumatic, EOMI, Normocephalic Oral: Moist Mucosa, No Gingival or Mucosal Lesions/ Ulcerations Neck: No Nodes, Trachea Midline Lungs: Clear to auscultation, Normal air movement, No rhonchi, No wheeze, No rales Cardiovascular: Regular rate, Regular Rhythm, Normal S1, Normal S2, No murmurs Abdomen: Bowel Sounds Present, Soft, Non Tender, Non-Distended, No Hepato-splenomegaly Extremities: No edema, No Calf Tenderness Skin: No rashes, No breakdown Psych/Mental Status: Appropriate, Anxious Microbiology Past 72 Hours 11/20/19 14:50 Urine, Clean Catch Urine Culture - Final Presumptive E. coli Laboratory Results 11/20/19 14:45: Diff Path Review Reviewed 11/21/19 07:10: Diff Path Review Reviewed Current Medications Acetaminophen (Tylenol) 650 mg PO Q6H PRN PRN PRN Reason: Pain Score 1-3/Temp > 100.7 F Last Admin: 11/22/19 06:40 Dose: 650 mg Documented by: Amiodarone HCl (Cordarone) 200 mg PO DAILY@0800 [facility] Last Admin: 11/22/19 08:57 Dose: 200 mg Documented by: Aspirin (Ecotrin) 81 mg PO DAILY@0800 [facility] Last Admin: 11/22/19 08:57 Dose: 81 mg Documented by: Calamine/Phenol (Calmoseptine Ointment) 1 applic TOPICAL 4X/DAY [facility]; Protocol Last Admin: 11/22/19 15:34 Dose: 1 applicatio Documented by: Clopidogrel Bisulfate (Plavix) 75 mg PO DAILY [facility] Last Admin: 11/22/19 08:56 Dose: 75 mg Documented by: Enoxaparin Sodium (Lovenox) 40 mg SC DAILY@0600 [facility] Last Admin: 11/22/19 06:37 Dose: 40 mg Documented by: Folic Acid (Folic Acid) 1 mg PO DAILY@0800 [facility] Stop: 11/23/19 08:01 Last Admin: 11/22/19 08:56 Dose: 1 mg Documented by: Glucagon () 1 mg IM .X1 PRN PRN Reason: Hypoglycemia Dextrose (Dextrose 10%-Water) 250 mls @ 999 mls/hr IV .Q16M PRN; Protocol PRN Reason: HYPOGLYCEMIA Sodium Chloride () 250 mls @ 15 mls/hr IV .[id number] PRN PRN Reason: Saline Flush Last Infusion: 11/21/19 22:38 Dose: 0 mls/hr Documented by: Sodium Chloride () 250 mls @ 15 mls/hr IV .[id number] PRN PRN Reason: Additional IVPB Infusion Lorazepam (Ativan) 2 mg PO Q2H PRN PRN; Protocol PRN Reason: CIWA score > 8 but <15 Lorazepam (Ativan) 2 mg PO UD PRN; Protocol PRN Reason: CIWA score >/=15. Lorazepam (Ativan) 2 mg IV Q2H PRN PRN; Protocol PRN Reason: CIWA score > 8 but <15 Lorazepam (Ativan) 2 mg IV UD PRN; Protocol PRN Reason: CIWA score >/=15. Melatonin (Melatonin) 3 mg PO QHS [facility] Last Admin: 11/21/19 22:26 Dose: 3 mg Documented by: Metoprolol Succinate (Toprol Xl (Beta Sharona)) 50 mg PO DAILY [facility] Last Admin: 11/22/19 08:57 Dose: 50 mg Documented by: Nitrofurantoin Macrocrystals (Macrobid) 100 mg PO BID [facility] Stop: 11/26/19 22:01 Last Admin: 11/22/19 10:22 Dose: 100 mg Documented by: Nitroglycerin (Nitrostat) 0.4 mg SUBLINGUAL Q5M PRN PRN Reason: chest pain Nutritional Formula (Lactose Free) (Ensure Enlive) 120 ml PO 4X/DAY [facility] Last Admin: 11/22/19 15:34 Dose: 120 ml Documented by: Sodium Chloride () 10 - 40 ml IV UD PRN PRN Reason: SALINE FLUSH Thi[facility] ([facility]) [facility] Stop: 11/23/19 17:01 Last Admin: 11/22/19 08:57 Dose: 100 mg Documented by: STROKE Vital Signs/Narrative: Vital Signs Temp Pulse Resp BP Pulse Ox 11/22/19 15:28 36.6 C 79 14 140/82 H 97 Medical Necessity - Tobacco Use Smoking Status: Former smoker Assessment/Plan All Active Problems (Last Reviewed 09/27/19 @ 18:21 by Simona Whipple) Urinary tract infection (Acute) Dehydration (Acute) Declining functional status (Acute) 1. severe sepsis 2/2 UTI 2. E. coli UTI changed to macrobid 3. ERMIAS likely prerenal resolved 4. Debility/FTT seen by PT who recommends additional therapy. unsafe to return home at this time patient open to going to SNF 5. Transaminitis improving no alcohol for 2 weeks, per the patient. 6. VTE prophylaxis: enoxaparin Code Visit Inpatient E&M: 83643 Subs Hosp L2
[2019-11-22] MEDS: MELATONIN 3 MG TABLET PO (21:23)
[2019-11-23 03:03] VITALS: BP 132/78; PULSE 74; RESP 18; TEMP 36.3; O2SAT 95
[2019-11-23 03:10] VITALS: PULSE 76
[2019-11-23] MEDS: Enoxaparin 40 MG/0.4 ML Syringe SC (05:04)
[2019-11-23 06:34] LABS: ALB/GLOB Ratio 0.7 RATIO (0.9-2.4); AST(SGOT) 167 U/L (15-37); Alanine Aminotransfer ALT/SGPT 144 U/L (16-61); Albumin, Serum 2.4 g/dL (3.2-5.0); Alkaline Phosphatase 148 U/L (45-117); Anion Gap 7 (5-15); BUN 14 mg/dL (7-18); BUN/Creat Ratio 21.8 RATIO (10-20); Calcium,Total 8.6 mg/dL (8.5-10.1); Chloride 94 mmol/L (98-107); Creatinine, Serum 0.64 mg/dL (0.70-1.30); EST Glomerular Filtration Rate 134 mL/min (>60); Est Glom Filt Rate - Afr Amer 162 mL/min (>60); Estimated Creatinine Clearance 137.36 ml/min; Globulin 3.5 g/dL (2.2-4.2); Glucose 105 mg/dL (74-106); Potassium 3.3 mmol/L (3.5-5.1); Protein, Total 5.9 g/dL (6.4-8.2); Sodium Level 131 mmol/L (136-145)
[2019-11-23] MEDS: Folic Acid 1 MG Tablet PO (08:43)
[2019-11-23] MEDS: Amiodarone 200 MG Tablet PO (08:43)
[2019-11-23] MEDS: Aspirin E.C. 81 MG Tablet PO (08:43)
[2019-11-23 08:44] VITALS: PULSE 80
[2019-11-23] MEDS: Clopidogrel Bisulfate 75 MG Tablet PO (08:44)
[2019-11-23] MEDS: Thiamine Hydrochloride 100 MG Tablet PO (08:44)
[2019-11-23] MEDS: Menthol/Lanolin/Calamine/Znox 113 GM Tube 1 APPLIC TOPICAL ×2 (08:44→13:31)
[2019-11-23] MEDS: Nitrofurantoin Macrocrystals 100 MG Capsule PO (08:44)
[2019-11-23] MEDS: Metoprolol(XL)Succ 50 MG Tablet PO (08:44)
[2019-11-23 09:03] VITALS: BP 120/81; PULSE 89; RESP 18; TEMP 36.7; O2SAT 98
--- NOTE | 2019-11-23 12:48 | CHAPLAIN ---
Type of Pastoral Visit _x__ Initial Visit ___ Follow-up Visit ___ On-call Visit ___ General Patient Visit ___ Spiritual Assessment ___ Family Conference ___ Bereavement ___ Rapid Response ___ Code Blue ___ Other (describe below) Pastoral Care Referral From _x__ Patient ___ Family ___ Nurse ___ Physician ___ U.[place]. 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
--- NOTE | 2019-11-23 14:06 | PCM.PN.HOSP ---
Patient Problems: Active and Suspected Problems (Last Reviewed 09/27/19 @ 18:21 by Simona Whipple) Urinary tract infection (Acute) Dehydration (Acute) Declining functional status (Acute) Reason for Visit: FTT Subjective: Coughing since admission, non-productive. Vitals/I&O's: Vital Signs Temp Pulse Resp BP Pulse Ox 36.7 C 89 18 120/81 H 98 11/23/19 09:03 11/23/19 09:03 11/23/19 09:03 11/23/19 09:03 11/23/19 09:03 Oxygen Delivery Method Room Air Weight: 91.9 kg Body Mass Index (BMI) 25.9 Intake and Output for Last 24 Hours 11/21/19 11/22/19 11/23/19 23:59 23:59 23:59 Intake Total 4676.25 / 4676.25 1959 920 / 920 Output Total 100 / 100 100 / 100 Balance 4576.25 / 4576.25 1959 820 / 820 General: Alert, No apparent distress HEENT: Atraumatic, Normocephalic Oral: Moist Mucosa, No Gingival or Mucosal Lesions/ Ulcerations Neck: No Nodes, Trachea Midline Lungs: Clear to auscultation, Normal air movement, No rhonchi, No wheeze, No rales Cardiovascular: Regular rate, Regular Rhythm, Normal S1, Normal S2, No murmurs Abdomen: Bowel Sounds Present, Soft, Non Tender, Non-Distended Extremities: No edema, No Calf Tenderness Skin: No rashes, No breakdown Musculoskeletal: No Tenderness to Palpation of Joints or Extremities, No Muscle Wasting Psych/Mental Status: Normal Affect, Appropriate Microbiology Past 72 Hours 11/20/19 14:50 Urine, Clean Catch Urine Culture - Final Presumptive E. coli Laboratory Results 11/20/19 14:45: Diff Path Review Reviewed 11/21/19 07:10: Diff Path Review Reviewed 11/23/19 05:40: Sodium 131 L, Potassium 3.3 L, Chloride 94 L, Carbon Dioxide 30.0, Anion Gap 7, BUN 14, Creatinine 0.64 L, Estim Creat Clear Calc 137.36, Est GFR (MDRD) Af Amer 162, Est GFR (MDRD) Non-Af 134, BUN/Creatinine Ratio 21.8 H, Glucose 105, Calcium 8.6, Total Bilirubin 0.80, AST 167 H, ALT 144 H, Alkaline Phosphatase 148 H, Total Protein 5.9 L, Albumin 2.4 L, Globulin 3.5, Albumin/Globulin Ratio 0.7 L Current Medications Acetaminophen (Tylenol) 650 mg PO Q6H PRN PRN PRN Reason: Pain Score 1-3/Temp > 100.7 F Last Admin: 11/22/19 06:40 Dose: 650 mg Documented by: Amiodarone HCl (Cordarone) 200 mg PO DAILY@0800 [facility] Last Admin: 11/23/19 08:43 Dose: 200 mg Documented by: Aspirin (Ecotrin) 81 mg PO DAILY@0800 [facility] Last Admin: 11/23/19 08:43 Dose: 81 mg Documented by: Calamine/Phenol (Calmoseptine Ointment) 1 applic TOPICAL 4X/DAY [facility]; Protocol Last Admin: 11/23/19 13:31 Dose: 1 applicatio Documented by: Clopidogrel Bisulfate (Plavix) 75 mg PO DAILY [facility] Last Admin: 11/23/19 08:44 Dose: 75 mg Documented by: Enoxaparin Sodium (Lovenox) 40 mg SC DAILY@0600 [facility] Last Admin: 11/23/19 05:04 Dose: 40 mg Documented by: Glucagon () 1 mg IM .X1 PRN PRN Reason: Hypoglycemia Sodium Chloride () 250 mls @ 15 mls/hr IV .[id number] PRN PRN Reason: Saline Flush Last Infusion: 11/21/19 22:38 Dose: 0 mls/hr Documented by: Sodium Chloride () 250 mls @ 15 mls/hr IV .[id number] PRN PRN Reason: Additional IVPB Infusion Melatonin (Melatonin) 3 mg PO QHS [facility] Last Admin: 11/22/19 21:23 Dose: 3 mg Documented by: Metoprolol Succinate (Toprol Xl (Beta Sharona)) 50 mg PO DAILY [facility] Last Admin: 11/23/19 08:44 Dose: 50 mg Documented by: Nitrofurantoin Macrocrystals (Macrobid) 100 mg PO BID [facility] Stop: 11/26/19 22:01 Last Admin: 11/23/19 08:44 Dose: 100 mg Documented by: Nitroglycerin (Nitrostat) 0.4 mg SUBLINGUAL Q5M PRN PRN Reason: chest pain Nutritional Formula (Lactose Free) (Ensure Enlive) 120 ml PO 4X/DAY [facility] Last Admin: 11/23/19 13:31 Dose: Not Given Documented by: Sodium Chloride () 10 - 40 ml IV UD PRN PRN Reason: SALINE FLUSH Thiamine HCl (Vitamin B1) 100 mg PO BIDCM [facility] Stop: 11/23/19 17:01 Last Admin: 11/23/19 08:44 Dose: 100 mg Documented by: Medical Necessity - Tobacco Use Smoking Status: Former smoker Assessment/Plan All Active Problems (Last Reviewed 09/27/19 @ 18:21 by Simona Whipple) Urinary tract infection (Acute) Dehydration (Acute) Declining functional status (Acute) 1. severe sepsis 2/2 UTI 2. E. coli UTI changed to macrobid and treat through 11/26/2019 3. ERMIAS likely prerenal resolved 4. Debility/FTT seen by PT who recommends additional therapy. unsafe to return home at this time patient open to going to SNF 5. Transaminitis improving no alcohol for 2 weeks, per the patient. 6. VTE prophylaxis: enoxaparin 7. Cough: non-productive. guaf DM 8. Disposition: pending insurance approval. Code Visit Inpatient E&M: 69569 Subs Hosp L2
--- NOTE | 2019-11-23 14:15 | CASEMGMT ---
ROLANDO received call from Nikkie at [facility] and patient was approved. ROLANDO notified weigher and charger to notify physician. Sylvie HAMILTON
--- NOTE | 2019-11-23 14:29 | PCM.TXEXTCAR ---
- Diet 11/20/19 16:49 Diet: Cardiac/Low Cholesterol Food consistency:: Regular Liquid Consistency:: Regular/Thin - Routine Orders/Code Status Code Status: Full Code - Wound(s) BLE Wound Type: Abrasion R forearm Wound Type: scabbed area R ball of foot Wound Type: Laceration - Therapies Physical Therapy: Eval and Treat Occupational Therapy: Eval and Treat - Allergies/Procedures Done in Hospital Allergies/Adverse Reactions: Allergies ezetimibe [From Zetia] Adverse Reaction (Severe, Verified 11/20/19 14:47) Myalgias Iodine and Iodide Containing Produc Adverse Reaction (Severe, Verified 11/20/19 14:47) Rash Tjdegdc-Ajm-Fpy Reductase Inhibitor Adverse Reaction (Severe, Verified 11/20/19 14:47) Elevated Liver Enzymes Procedures: None - Type of Care/Length of Stay Estimated LOS: Convalescent Care Less Than 30 days Type of Care Needed: Skilled Rehab Potential: Fair Prognosis: Good - Additional Orders/Day of Discharge Day of Discharge: 11/23/19 - Dietary and Speech Recommendations Dietitian Recommendations/Changes: May benefit from diet change to regular if PO at meals does not improve. Continue ONS w/ medpass until adequate PO intake at meals is established. - Follow Up Care Primary Care Physician: Shay Del Rosario III, MD [Primary Care Provider] - Within 2 Weeks Please Follow Up With: Jaylene Hernandez When: scheduled appt for 02/16/2020
--- NOTE | 2019-11-23 14:34 | DS.PCM_ITS ---
Discharge Date and Diagnosis - Problem List Patient Problems: Active and Suspected Problems (Last Reviewed 09/27/19 @ 18:21 by Simona Whipple) Urinary tract infection (Acute) Dehydration (Acute) Declining functional status (Acute) Date of Admission: 11/20/19 Date of Discharge: 11/23/19 - Primary Discharge Diagnosis Active and Suspected Problems (Last Reviewed 09/27/19 @ 18:21 by Simona Whipple) 1. severe sepsis * 2/2 UTI 2. E. coli UTI * changed to macrobid and treat through 11/26/2019 3. ERMIAS * likely prerenal * resolved 4. Debility/FTT * seen by PT who recommends additional therapy. * unsafe to return home at this time * patient open to going to SNF 5. Transaminitis * improving * no alcohol for 2 weeks, per the patient. - Secondary Discharge Diagnosis Chronic Problems (Last Reviewed 09/27/19 @ 18:21 by Simona Whipple) Dyspnea (Chronic) Stage 1 mild COPD by GOLD classification (Chronic) FEV1 87% of predicted History of left heart catheterization (LHC) (Chronic 01/21/19) Will obtain old film from [facility] from 2 years ago to see if LAD lesion has worsened. Apparently pt underwent FFR of this portion of LAD and was found to be 0.81 so no intervention was performed. He has had no AICD discharges since his cath at [facility]. Intervention of this lesion is at moderate risk of the stent covering over DIAG, as well as eccentric calcium in proximal LAD sequeing into mid LAD lesion. I believe we could place the stent at the ostium of the mid LAD with minimal encroachment into DIAG, but pt has no anginal symptoms or change in his exercise capacity. I will obtain old films from [facility] to compare mid LAD stenosis; if it appears to be worse, then will return for elective PCI of LAD with double wires. Hyperlipidemia (Chronic) Atherosclerotic heart disease of [place] coronary artery without angina pectoris (Chronic) 12/28/1999 distal RCA was thrombectomized and stent placed; 04/01/2000 PTCA of distal RCA and ostium of the PDA for in-stent stenosis. [facility] 11/2005. Ischemic cardiomyopathy (Chronic) Ventricular tachycardia (Chronic) 10/30/17 tsfer to [facility] with VT storm Premature heartbeats (Chronic) Presence of automatic (implantable) cardiac defibrillator (Chronic 10/31/17) ICD Implant: 11/2005; ICD generator replacement 08/23/2010 History of coronary artery stent placement (Chronic 02/17/19) 12/28/1999 distal RCA was thrombectomized and stent placed; 04/01/2000 PTCA of distal RCA and ostium of the PDA for in-stent stenosis. Successful PTCA/DEMETRIO to Mid LAD with a 3.0 x 28 Promus Synergy, post dilated in middle stent with a 3.0 x 12 NC Balloon; 75%-->0%, no dissection. Successful PTCA/DEMETRIO Mid LAD across bifurcation of DIAG#1 and telescoped into mid LAD stent with a 4.0 x 28 Promus Synergy, post dilated in the proximal LAD with a 4.0 x 8 and a 4.5 x 8 NC Balloon; 855-->0%, no dissection. 02/17/2019 Successful PCI with PTCA to the ostial DIAG #1 through struts of LAD stent with a 2.5 x 8 Ballloon; 70%-->30%, no dissection. NO additional stenting needed or attempted. Benign hypertension (Chronic) Tobacco user (Chronic) History of alcoholism (Chronic) Hospital Course and Treatment Imaging Results: Clinical Impression(s) from Imaging Studies Brain CT 11/20/19 14:33 IMPRESSION: Chronic involutional changes of the brain. Electronically Signed: Aileen Hernandez MD at 15:51 EST Tel , Service support , Chest X-Ray 11/20/19 15:30 IMPRESSION: No acute cardiopulmonary process. Electronically Signed: Aileen Hernandez MD at 16:14 EST Tel , Service support , Operations: None Procedures: None Summary of Care Provided: The patient is a 64 year old M presents after being found down for 4 days. Patient was actually noted to be down for 4 days as his was present with him. She apparently want to call EMS but he declined until the fourth day. EMS arrived patient was brought to the hospital. Patient was found to be in severe sepsis fully found to have an E. coli UTI and also had acute kidney injury which is likely prerenal. So the urinary culture came back showing pansensitive E. coli so the patient was transitioned over to Macrobid, which she will treat through the . The acute kidney injury has resolved and then once again, this is likely prerenal due to dehydration. Patient was seen by therapy recommend additional therapy. Patient is obviously poor candidate to return home given his already demonstrated inability to care for himself at this time. Patient had some mild elevation in his liver test. This seems to be stable as can be followed up as outpatient. [] Patient Problems: Active and Suspected Problems (Last Reviewed 09/27/19 @ 18:21 by Simona Whipple) Urinary tract infection (Acute) Dehydration (Acute) Declining functional status (Acute) - Physical Exam Vitals/I&O's: Vital Signs Temp Pulse Resp BP Pulse Ox 36.7 C 89 18 120/81 H 98 11/23/19 09:03 11/23/19 09:03 11/23/19 09:03 11/23/19 09:03 11/23/19 09:03 Oxygen Delivery Method Room Air Weight: 91.9 kg Body Mass Index (BMI) 25.9 Intake and Output for Last 24 Hours 11/21/19 11/22/19 11/23/19 23:59 23:59 23:59 Intake Total 4676.25 / 4676.25 1959 920 / 920 Output Total 100 / 100 100 / 100 Balance 4576.25 / 4576.25 1959 820 / 820 Microbiology Past 72 Hours 11/20/19 14:50 Urine, Clean Catch Urine Culture - Final Presumptive E. coli Laboratory Results 11/23/19 05:40: Sodium 131 L, Potassium 3.3 L, Chloride 94 L, Carbon Dioxide 30.0, Anion Gap 7, BUN 14, Creatinine 0.64 L, Estim Creat Clear Calc 137.36, Est GFR (MDRD) Af Amer 162, Est GFR (MDRD) Non-Af 134, BUN/Creatinine Ratio 21.8 H, Glucose 105, Calcium 8.6, Total Bilirubin 0.80, AST 167 H, ALT 144 H, Alkaline Phosphatase 148 H, Total Protein 5.9 L, Albumin 2.4 L, Globulin 3.5, Albumin/Globulin Ratio 0.7 L Current Medications Acetaminophen (Tylenol) 650 mg PO Q6H PRN PRN PRN Reason: Pain Score 1-3/Temp > 100.7 F Last Admin: 11/22/19 06:40 Dose: 650 mg Documented by: Amiodarone HCl (Cordarone) 200 mg PO DAILY@0800 [facility] Last Admin: 11/23/19 08:43 Dose: 200 mg Documented by: Aspirin (Ecotrin) 81 mg PO DAILY@0800 [facility] Last Admin: 11/23/19 08:43 Dose: 81 mg Documented by: Calamine/Phenol (Calmoseptine Ointment) 1 applic TOPICAL 4X/DAY [facility]; Protocol Last Admin: 11/23/19 13:31 Dose: 1 applicatio Documented by: Clopidogrel Bisulfate (Plavix) 75 mg PO DAILY [facility] Last Admin: 11/23/19 08:44 Dose: 75 mg Documented by: Enoxaparin Sodium (Lovenox) 40 mg SC DAILY@0600 [facility] Last Admin: 11/23/19 05:04 Dose: 40 mg Documented by: Glucagon () 1 mg IM .X1 PRN PRN Reason: Hypoglycemia Guaifenesin (Robitussin Dm) 5 ml PO Q6H PRN PRN PRN Reason: coughing Sodium Chloride () 250 mls @ 15 mls/hr IV .[id number] PRN PRN Reason: Saline Flush Last Infusion: 11/21/19 22:38 Dose: 0 mls/hr Documented by: Sodium Chloride () 250 mls @ 15 mls/hr IV .[id number] PRN PRN Reason: Additional IVPB Infusion Melatonin (Melatonin) 3 mg PO QHS [facility] Last Admin: 11/22/19 21:23 Dose: 3 mg Documented by: Metoprolol Succinate (Toprol Xl (Beta Sharona)) 50 mg PO DAILY [facility] Last Admin: 11/23/19 08:44 Dose: 50 mg Documented by: Nitrofurantoin Macrocrystals (Macrobid) 100 mg PO BID [facility] Stop: 11/26/19 22:01 Last Admin: 11/23/19 08:44 Dose: 100 mg Documented by: Nitroglycerin (Nitrostat) 0.4 mg SUBLINGUAL Q5M PRN PRN Reason: chest pain Nutritional Formula (Lactose Free) (Ensure Enlive) 120 ml PO 4X/DAY [facility] Last Admin: 11/23/19 13:31 Dose: Not Given Documented by: Sodium Chloride () 10 - 40 ml IV UD PRN PRN Reason: SALINE FLUSH Thiamine HCl (Vitamin B1) 100 mg PO BIDCM [facility] Stop: 11/23/19 17:01 Last Admin: 11/23/19 08:44 Dose: 100 mg Documented by: Discharge Diet: No Restrictions Discharge Activity: - - activity as tolerated Home Medications: Medications to take at Discharge aspirin 81 mg tablet,delayed release 81 mg PO QDAY 10/14/17 nitroglycerin 0.4 mg sublingual tablet 0.4 mg SUBLINGUAL Q5M PRN #25 tab 05/08/18 Amiodarone HCl 200 mg PO DAILY 11/20/19 Clopidogrel Bisulfate [Clopidogrel] 75 mg PO DAILY 11/20/19 Lisinopril 20 mg PO BID 11/20/19 Metoprolol Succinate [Toprol Xl] 50 mg PO ONCE 11/20/19 Acetaminophen [Tylenol Tablet] 650 mg PO Q6H PRN PRN tablet 11/23/19 Guaifenesin Dm [Robitussin Dm] 5 ml PO Q6H PRN PRN udc 11/23/19 Multivitamin [Animal Chews] 1 each PO DAILY #1 tab.chew 11/23/19 Nitrofurantoin Macrocrystals [Macrobid] 100 mg PO BID capsule 11/23/19 Following Prescrptions Were Given to Patient: Multivitamin [Animal Chews] 1 each PO DAILY #1 tab.chew Primary Care Physician: Shay Del Rosario III, MD [Primary Care Provider] - Within 2 Weeks Please Follow Up With: Jaylene Hernandez When: scheduled appt for 02/16/2020 Disposition: Halfway facility Minutes spent on discharge:: 35 Patient Condition:: Good Medical Necessity - Tobacco Use Smoking Status: Former smoker Meaningful Use Info Meaningful Use Diagnoses (Choose all that apply): None applicable Code Visit Inpatient E&M: 12869 Disch Hosp
--- NOTE | 2019-11-23 14:44 | CASEMGMT ---
Patient is ready for discharge. Orders faxed to [facility]. Completed convalescent on [facility]ENS. Called [facility] and they can pick patient up. They will send someone right now. notified RN, area secretary, and CASKET COVERER who spoke with patient. Plan: d/c to [facility] under skilled level of care on a convalescent stay. [facility] transported him via van. Sylvie ROSARIO MSW
== END 2019-11-23 15:11 | disposition skilled nursing facility (03) | DRG 463 ==
LOC: ED 16:07 → PCU 16:21
PROVIDERS: Family Medicine; Admitting Provider Student in an Organized Health Care Education/Training Program; Emergency Provider Emergency Medicine; PCP Family Medicine; Referring Provider Family Medicine
DX: N39.0 Urinary tract infection, site not specified (principal); N17.9 Acute kidney failure, unspecified; E87.1 Hypo-osmolality and hyponatremia; E87.2 Acidosis; E86.0 Dehydration; I25.10 Atherosclerotic heart disease of native coronary artery without angina pectoris; E87.6 Hypokalemia; I48.91 Unspecified atrial fibrillation; I25.5 Ischemic cardiomyopathy; R62.7 Adult failure to thrive; R53.81 Other malaise; B96.20 Unspecified Escherichia coli [E. coli] as the cause of diseases classified elsewhere; Z79.02 Long term (current) use of antithrombotics/antiplatelets; Z95.5 Presence of coronary angioplasty implant and graft; Z95.810 Presence of automatic (implantable) cardiac defibrillator; Z79.82 Long term (current) use of aspirin; Z87.891 Personal history of nicotine dependence; R74.0 Nonspecific elevation of levels of transaminase and lactic acid dehydrogenase [LDH]
CPT/HCPCS: 36415; 70450; 71045; 80053; 80320; 81001; 82550; 83605; 83735; 84100; 84484; 85025; 85610; 85730; 87040; 87086; 87088; 87186; 93005; 97116; 97162; 97165; 97530; 97535; 97802; 99285; J7030; J7050; A4216; G0480

== ENCOUNTER 2019-12-13 13:14 | Observation (INO) | payer MEDICAID, SELFPAY ==
[2019-02-17 13:19] VITALS: BMI 29.2
[2019-11-20 17:14] VITALS: BMI 25.9
[2019-12-13] VITALS (9 sets, daily range): BP systolic 109–159; BP diastolic 68–98; PULSE 79–90; RESP 14–20; TEMP 36.4–36.8; O2SAT 97–98; BMI 27.3; BMI 26.9; BMI 27.0
--- NOTE | 2019-12-13 14:00 | RAD_ITS ---
STUDY: X-RAY - LEFT ELBOW REASON FOR EXAM: Male, 64 years old. LEFT ELBOW PAIN/REDNESS/CELLULITIS -- SINCE 12-11-19 -- TENDERNESS TO ELBOW SINCE 2 -- NKI TECHNIQUE: 3 view(s) of the elbow. COMPARISON: None. FINDINGS: Normal visualized humerus, radius and ulna. Normal radiocapitellar and ulnotrochlear articulations. Small joint effusion. Soft tissue swelling. RAD/Elbow min 3 Views IMPRESSION: Diffuse soft tissue swelling. Small joint effusion. Electronically Signed: Ozzy Brandon, at 14:31 EST , Service support ,
[2019-12-13 14:23] LABS: Absolute Lymphocyte Count 1.42 X10^3/uL (0.83-4.51); Absolute Neutrophil Count 7.7 X10^3/uL (2.0-7.7); Basophil# 0.02 X10^3/uL; Basophil% 0.2 % (0-1); Eosinophil# 0.12 X10^3/uL; Eosinophils% 1.2 % (0-5); Hematocrit 39.2 % (40-54); Hemoglobin 13.5 g/dL (13.0-16.5); Lymphocyte # 1.42 X10^3/ul (4.0); Lymphocyte % 13.7 % (19-41); Mean Corp Hgb Conc 34.4 g/dL (32-36); Mean Corpuscular Hgb 37.4 pg (27.0-32.0); Mean Corpuscular Volume 108.6 fL (80-94); Monocyte# 1.07 X10^3/uL; Monocyte% 10.3 % (0-10); NRBC Flagged by Analyzer 0 % (0-5); Neutrophil # 7.65 X10^3/uL (2.7-7.7); Neutrophil % 73.9 % (47-70); Platelet Count 306 K/mm3 (150-450); RBC Distribution Width CV 14.2 % (11.6-14.6); RBC Distribution Width SD 56.6 fl (35.1-43.9); Red Blood Count 3.61 M/mm3 (4.6-6.2); White Blood Count 10.4 K/mm3 (4.4-11.0)
[2019-12-13] MEDS: Morphine 4 MG/ML Syringe IV ×2 (14:23→16:37)
[2019-12-13] MEDS: Ondansetron 4 MG/2 ML Vial IV (14:23)
[2019-12-13 14:36] LABS: Anion Gap 4 (5-15); BUN 5 mg/dL (7-18); Calcium,Total 9.4 mg/dL (8.5-10.1); Chloride 106 mmol/L (98-107); Creatinine, Serum 0.71 mg/dL (0.70-1.30); EST Glomerular Filtration Rate 119 mL/min (>60); Est Glom Filt Rate - Afr Amer 144 mL/min (>60); Estimated Creatinine Clearance 123.81 ml/min; Glucose 101 mg/dL (74-106); Sodium Level 136 mmol/L (136-145)
--- NOTE | 2019-12-13 16:13 | HP.PCM_ITS ---
History of Present Illness The patient is a 64 year old M [] Past Medical History Past Medical History (Chronic Problems): Chronic Problems (Last Reviewed 09/27/19 @ 18:21 by Simona Whipple) Dyspnea (Chronic) Stage 1 mild COPD by GOLD classification (Chronic) FEV1 87% of predicted History of left heart catheterization (LHC) (Chronic 01/21/19) Will obtain old film from [place] from 2 years ago to see if LAD lesion has worsened. Apparently pt underwent FFR of this portion of LAD and was found to be 0.81 so no intervention was performed. He has had no AICD discharges since his cath at [place]. Intervention of this lesion is at moderate risk of the stent covering over DIAG, as well as eccentric calcium in proximal LAD sequeing into mid LAD lesion. I believe we could place the stent at the ostium of the mid LAD with minimal encroachment into DIAG, but pt has no anginal symptoms or change in his exercise capacity. I will obtain old films from [place] to compare mid LAD stenosis; if it appears to be worse, then will return for elective PCI of LAD with double wires. Hyperlipidemia (Chronic) Atherosclerotic heart disease of [place] coronary artery without angina pectoris (Chronic) 12/28/1999 distal RCA was thrombectomized and stent placed; 04/01/2000 PTCA of distal RCA and ostium of the PDA for in-stent stenosis. [facility] 11/2005. Ischemic cardiomyopathy (Chronic) Ventricular tachycardia (Chronic) 10/30/17 tsfer to [facility] with [place] storm Premature heartbeats (Chronic) Presence of automatic (implantable) cardiac defibrillator (Chronic 10/31/17) ICD Implant: 11/2005; ICD generator replacement 08/23/2010 History of coronary artery stent placement (Chronic 02/17/19) 12/28/1999 distal RCA was thrombectomized and stent placed; 04/01/2000 PTCA of distal RCA and ostium of the PDA for in-stent stenosis. Successful PTCA/DEMETRIO to Mid LAD with a 3.0 x 28 Promus Synergy, post dilated in middle stent with a 3.0 x 12 NC Balloon; 75%-->0%, no dissection. Successful PTCA/DEMETRIO Mid LAD across bifurcation of DIAG#1 and telescoped into mid LAD stent with a 4.0 x 28 Promus Synergy, post dilated in the proximal LAD with a 4.0 x 8 and a 4.5 x 8 NC Balloon; 855-->0%, no dissection. 02/17/2019 Successful PCI with PTCA to the ostial DIAG #1 through struts of LAD stent with a 2.5 x 8 Ballloon; 70%-->30%, no dissection. NO additional stenting needed or attempted. Benign hypertension (Chronic) Tobacco user (Chronic) History of alcoholism (Chronic) Medical History: Medical History (Last Reviewed 09/27/19 @ 18:21 by Simona Whipple) Hyperlipidemia (Chronic) E78.5 Atherosclerotic heart disease of [place] coronary artery without angina pectoris (Chronic) I25.10 12/28/1999 distal RCA was thrombectomized and stent placed; 04/01/2000 PTCA of distal RCA and ostium of the PDA for in-stent stenosis. [facility] 11/2005. Ischemic cardiomyopathy (Chronic) I25.5 Ventricular tachycardia (Chronic) I47.2 10/30/17 tsfer to [facility] with [place] storm Premature heartbeats (Chronic) I49.40 Benign hypertension (Chronic) I10 Tobacco user (Chronic) Z72.0 History of alcoholism (Chronic) F10.21 History of echocardiogram Onset Date: 04/03/17 Z92.89 EF 40-45% History of stress test Onset Date: 02/16/10 Z92.89 Allergies ezetimibe [From Zetia] Adverse Reaction (Severe, Verified 12/13/19 13:19) Myalgias Iodine and Iodide Containing Produc Adverse Reaction (Severe, Verified 12/13/19 13:19) Rash Dvyaoej-Dkx-Zac Reductase Inhibitor Adverse Reaction (Severe, Verified 12/13/19 13:19) Elevated Liver Enzymes Home Medications: Ambulatory Orders Medication Instructions Recorded aspirin 81 mg tablet,delayed 81 mg PO DAILY 10/14/17 release nitroglycerin 0.4 mg sublingual 0.4 mg SUBLINGUAL Q5M PRN #25 tab 05/08/18 tablet Amiodarone HCl 200 mg PO DAILY 11/20/19 Clopidogrel Bisulfate [Clopidogrel] 75 mg PO DAILY 11/20/19 Lisinopril 20 mg PO DAILY 11/20/19 Metoprolol Succinate [Toprol Xl] 50 mg PO DAILY 11/20/19 Multivit-Min/FA/Lycopen/Lutein 1 ea PO DAILY 12/13/19 [Centrum Silver Men Tablet] Surgical History: Surgical History (Last Reviewed 09/27/19 @ 18:22 by Simona Whipple) History of left heart catheterization (LHC) (Chronic) Onset Date: 01/21/19 Z98.890 Will obtain old film from [place] from 2 years ago to see if LAD lesion has worsened. Apparently pt underwent FFR of this portion of LAD and was found to be 0.81 so no intervention was performed. He has had no AICD discharges since his cath at [place]. Intervention of this lesion is at moderate risk of the stent covering over DIAG, as well as eccentric calcium in proximal LAD sequeing into mid LAD lesion. I believe we could place the stent at the ostium of the mid LAD with minimal encroachment into DIAG, but pt has no anginal symptoms or change in his exercise capacity. I will obtain old films from [place] to compare mid LAD stenosis; if it appears to be worse, then will return for elective PCI of LAD with double wires. Presence of automatic (implantable) cardiac defibrillator (Chronic) Onset Date: 10/31/17 Z95.810 ICD Implant: 11/2005; ICD generator replacement 08/23/2010 History of coronary artery stent placement (Chronic) Onset Date: 02/17/19 Z95.5 12/28/1999 distal RCA was thrombectomized and stent placed; 04/01/2000 PTCA of distal RCA and ostium of the PDA for in-stent stenosis. Successful PTCA/DEMETRIO to Mid LAD with a 3.0 x 28 Promus Synergy, post dilated in middle stent with a 3.0 x 12 NC Balloon; 75%-->0%, no dissection. Successful PTCA/DEMETRIO Mid LAD across bifurcation of DIAG#1 and telescoped into mid LAD stent with a 4.0 x 28 Promus Synergy, post dilated in the proximal LAD with a 4.0 x 8 and a 4.5 x 8 NC Balloon; 855-->0%, no dissection. 02/17/2019 Successful PCI with PTCA to the ostial DIAG #1 through struts of LAD stent with a 2.5 x 8 Ballloon; 70%-->30%, no dissection. NO additional stenting needed or attempted. Hx of knee surgery Z98.890 Surgical History: angioplasty, pacemaker implantation Smoking Status: Former smoker Tobacco Use: Non-smoker - Physical Exam Vitals/I&O's: Vital Signs Temp Pulse Resp BP Pulse Ox 97.6 F L 79 20 H 153/92 H 97 12/13/19 15:13 12/13/19 15:13 12/13/19 15:13 12/13/19 15:13 12/13/19 15:13 Oxygen Delivery Method Room Air Weight: 213 lb Body Mass Index (BMI) 27.3 Laboratory Results 12/13/19 14:05: WBC 10.4, RBC 3.61 L, Hgb 13.5, Hct 39.2 L, MCV 108.6 H, MCH 37.4 H, MCHC 34.4, RDW Std Deviation 56.6 H, RDW Coeff of [place] 14.2, Plt Count 306, MPV 9.0, Immature Gran % (Auto) 0.700, Neut % (Auto) 73.9 H, Lymph % (Auto) 13.7 L, [place] % (Auto) 10.3 H, Eos % (Auto) 1.2, Baso % (Auto) 0.2, Absolute Neuts (auto) 7.7, Absolute Lymphs (auto) 1.42, Nucleated RBC % 0 12/13/19 14:05: Sodium 136, Potassium 4.0, Chloride 106, Carbon Dioxide 26.0, Anion Gap 4 L, BUN 5 L, Creatinine 0.71, Estim Creat Clear Calc 123.81, Est GFR (MDRD) Af Amer 144, Est GFR (MDRD) Non-Af 119, BUN/Creatinine Ratio 7.0 L, Glucose 101, Calcium 9.4 Current Medications Vancomycin HCl 1,500 mg/ (Dextrose) 280 mls @ 250 mls/hr IV X1 ONE Stop: 12/13/19 17:19 Piperacillin Sod/Tazobactam (Sod 3.375 gm/ Sodium Chloride) 50 mls @ 100 mls/hr IV X1 ONE Stop: 12/13/19 16:41 Assessment/Plan All Active Problems (Last Reviewed 09/27/19 @ 18:21 by Simona Whipple) Urinary tract infection (Acute) Dehydration (Acute) Declining functional status (Acute)
--- NOTE | 2019-12-13 16:19 | ED.VISSUMM ---
- ER Visit Summary Date of Service: 12/13/19 Chief Complaint: Left upper extremity infection History of Present Illness: The patient is a 64 M presenting with redness to left upper extremity with swelling. He was seen by his primary care physician today and advised to come to the ED for further evaluation. Patient recently was [facility] from a senior living after being admitted to the hospital for sepsis/UTI. He is no longer on antibiotics. He started having swelling of his left forearm on Friday. He states this is progressively worsening. He denies fever. Denies injury. Denies other complaints. Physical Examination: Vitals are stable. Patient is afebrile. Alert no acute distress. HEENT exam is unremarkable. Neck is supple. Lungs are clear and equal bilaterally. Heart is regular rate and rhythm. Abdomen is soft nontender nondistended. Extremities distal elbow erythema with 4 cm area of fluctuance, surrounding erythema with streaking to upper arm. Neurovascularly intact distally. Active full range of motion of the elbow. Skin is warm and dry. No focal neurologic deficit. Remainder of exam is unremarkable. Emergency Department Course and Treatment: Patient was given morphine, Zofran IV. CBC, chemistries unremarkable. I&D was performed. Anesthetized with lidocaine. Incised with 11 blade. Large amount of pus was drained. Probed for loculations. Irrigated with saline. He was given Zosyn and Vancomycin IV. Discussed with the hospitalist for admission. Disposition: Admission Impression: Left upper extremity abscess and cellulitis, I&D This note was generated with [employer] dictation software. It may contain incorrect words, spelling, and punctuation that were not noted in review of the chart prior to signing ED Disposition - Plan for ED Patient: Referrals: Shay Del Rosario III, MD [Primary Care Provider] -
[2019-12-13] MEDS: LORazepam 0.5 MG Tablet PO (16:37)
--- NOTE | 2019-12-13 16:54 | PCM.HP.STD ---
<Nilo Holly - Last Filed: 12/13/19 17:01> Problem List (1) Cellulitis and abscess of upper extremity Status: Acute (2) Stage 1 mild COPD by GOLD classification Status: Chronic Comment: FEV1 87% of predicted (3) Hyperlipidemia Status: Chronic (4) Ischemic cardiomyopathy Status: Chronic (5) Presence of automatic (implantable) cardiac defibrillator Status: Chronic Comment: ICD Implant: 11/2005; ICD generator replacement 08/23/2010 (6) History of coronary artery stent placement Status: Chronic Comment: 12/28/1999 distal RCA was thrombectomized and stent placed; 04/01/2000 PTCA of distal RCA and ostium of the PDA for in-stent stenosis. Successful PTCA/DEMETRIO to Mid LAD with a 3.0 x 28 Promus Synergy, post dilated in middle stent with a 3.0 x 12 NC Balloon; 75%-->0%, no dissection. Successful PTCA/DEMETRIO Mid LAD across bifurcation of DIAG#1 and telescoped into mid LAD stent with a 4.0 x 28 Promus Synergy, post dilated in the proximal LAD with a 4.0 x 8 and a 4.5 x 8 NC Balloon; 855-->0%, no dissection. 02/17/2019 Successful PCI with PTCA to the ostial DIAG #1 through struts of LAD stent with a 2.5 x 8 Ballloon; 70%-->30%, no dissection. NO additional stenting needed or attempted. (7) Benign hypertension Status: Chronic (8) Tobacco user Status: Chronic (9) History of alcoholism Status: Chronic History of Present Illness Date of Admission: 12/13/19 Chief Complaint: left arm swelling The patient is a 64 year old M with pmhx of CAD with ischemic CM, Vtach, pacer and ICD in place, HTN, HLD, former alcoholic, former nicotine abuse, COPD, recently discharged from [facility] for debility following an admission for UTI, who presented to the ER with c/o left arm swelling. On friday he noticed the spontaneous formation of a dime sized soft erythematous area on his medial left forearm. It progressively enlarged with increasing redness, lymphatic stranding proximally toward the axillae, increasing warmth, and swelling. He denies fevers/chills/sweats. He has no nausea/vomiting/diarrhea. He denies a hx of inciting trauma. He has had mild pain, more severe after having I&D. He has mild swelling of the left elbow, he has no limitation on his ROM. He did not have any drainage until I&D was performed at bedside in the ER, with copious purulent drainage expressed. He has no hx of cellulitis or MRSA. He no longer smokes. He is not diabetic. He does not use chronic steroids. He appears non septic in the ER. He was given vanc/zosyn in the ER. [] Past Medical History Past Medical History (Chronic Problems): Chronic Problems (Last Reviewed 09/27/19 @ 18:21 by Simona Whipple) Dyspnea (Chronic) Stage 1 mild COPD by GOLD classification (Chronic) FEV1 87% of predicted History of left heart catheterization (LHC) (Chronic 01/21/19) Will obtain old film from [place] from 2 years ago to see if LAD lesion has worsened. Apparently pt underwent FFR of this portion of LAD and was found to be 0.81 so no intervention was performed. He has had no AICD discharges since his cath at [place]. Intervention of this lesion is at moderate risk of the stent covering over DIAG, as well as eccentric calcium in proximal LAD sequeing into mid LAD lesion. I believe we could place the stent at the ostium of the mid LAD with minimal encroachment into DIAG, but pt has no anginal symptoms or change in his exercise capacity. I will obtain old films from [place] to compare mid LAD stenosis; if it appears to be worse, then will return for elective PCI of LAD with double wires. Hyperlipidemia (Chronic) Atherosclerotic heart disease of [place] coronary artery without angina pectoris (Chronic) 12/28/1999 distal RCA was thrombectomized and stent placed; 04/01/2000 PTCA of distal RCA and ostium of the PDA for in-stent stenosis. [facility] 11/2005. Ischemic cardiomyopathy (Chronic) Ventricular tachycardia (Chronic) 10/30/17 tsfer to [facility] with [place] storm Premature heartbeats (Chronic) Presence of automatic (implantable) cardiac defibrillator (Chronic 10/31/17) ICD Implant: 11/2005; ICD generator replacement 08/23/2010 History of coronary artery stent placement (Chronic 02/17/19) 12/28/1999 distal RCA was thrombectomized and stent placed; 04/01/2000 PTCA of distal RCA and ostium of the PDA for in-stent stenosis. Successful PTCA/DEMETRIO to Mid LAD with a 3.0 x 28 Promus Synergy, post dilated in middle stent with a 3.0 x 12 NC Balloon; 75%-->0%, no dissection. Successful PTCA/DEMETRIO Mid LAD across bifurcation of DIAG#1 and telescoped into mid LAD stent with a 4.0 x 28 Promus Synergy, post dilated in the proximal LAD with a 4.0 x 8 and a 4.5 x 8 NC Balloon; 855-->0%, no dissection. 02/17/2019 Successful PCI with PTCA to the ostial DIAG #1 through struts of LAD stent with a 2.5 x 8 Ballloon; 70%-->30%, no dissection. NO additional stenting needed or attempted. Benign hypertension (Chronic) Tobacco user (Chronic) History of alcoholism (Chronic) Medical History: Medical History (Last Reviewed 09/27/19 @ 18:21 by Simona Whipple) Hyperlipidemia (Chronic) E78.5 Atherosclerotic heart disease of [place] coronary artery without angina pectoris (Chronic) I25.10 12/28/1999 distal RCA was thrombectomized and stent placed; 04/01/2000 PTCA of distal RCA and ostium of the PDA for in-stent stenosis. [facility] 11/2005. Ischemic cardiomyopathy (Chronic) I25.5 Ventricular tachycardia (Chronic) I47.2 10/30/17 tsfer to [facility] with [place] storm Premature heartbeats (Chronic) I49.40 Benign hypertension (Chronic) I10 Tobacco user (Chronic) Z72.0 History of alcoholism (Chronic) F10.21 History of echocardiogram Onset Date: 04/03/17 Z92.89 EF 40-45% History of stress test Onset Date: 02/16/10 Z92.89 Allergies ezetimibe [From Zetia] Adverse Reaction (Severe, Verified 12/13/19 13:19) Myalgias Iodine and Iodide Containing Produc Adverse Reaction (Severe, Verified 12/13/19 13:19) Rash Bmwkuvv-Cij-Gsc Reductase Inhibitor Adverse Reaction (Severe, Verified 12/13/19 13:19) Elevated Liver Enzymes Home Medications: Ambulatory Orders Medication Instructions Recorded aspirin 81 mg tablet,delayed 81 mg PO DAILY 10/14/17 release nitroglycerin 0.4 mg sublingual 0.4 mg SUBLINGUAL Q5M PRN #25 tab 05/08/18 tablet Amiodarone HCl 200 mg PO DAILY 11/20/19 Clopidogrel Bisulfate [Clopidogrel] 75 mg PO DAILY 11/20/19 Lisinopril 20 mg PO DAILY 11/20/19 Metoprolol Succinate [Toprol Xl] 50 mg PO DAILY 11/20/19 Multivit-Min/FA/Lycopen/Lutein 1 ea PO DAILY 12/13/19 [Centrum Silver Men Tablet] Surgical History: Surgical History (Last Reviewed 09/27/19 @ 18:22 by Simona Whipple) History of left heart catheterization (LHC) (Chronic) Onset Date: 01/21/19 Z98.890 Will obtain old film from [place] from 2 years ago to see if LAD lesion has worsened. Apparently pt underwent FFR of this portion of LAD and was found to be 0.81 so no intervention was performed. He has had no AICD discharges since his cath at [place]. Intervention of this lesion is at moderate risk of the stent covering over DIAG, as well as eccentric calcium in proximal LAD sequeing into mid LAD lesion. I believe we could place the stent at the ostium of the mid LAD with minimal encroachment into DIAG, but pt has no anginal symptoms or change in his exercise capacity. I will obtain old films from [place] to compare mid LAD stenosis; if it appears to be worse, then will return for elective PCI of LAD with double wires. Presence of automatic (implantable) cardiac defibrillator (Chronic) Onset Date: 10/31/17 Z95.810 ICD Implant: 11/2005; ICD generator replacement 08/23/2010 History of coronary artery stent placement (Chronic) Onset Date: 02/17/19 Z95.5 12/28/1999 distal RCA was thrombectomized and stent placed; 04/01/2000 PTCA of distal RCA and ostium of the PDA for in-stent stenosis. Successful PTCA/DEMETRIO to Mid LAD with a 3.0 x 28 Promus Synergy, post dilated in middle stent with a 3.0 x 12 NC Balloon; 75%-->0%, no dissection. Successful PTCA/DEMETRIO Mid LAD across bifurcation of DIAG#1 and telescoped into mid LAD stent with a 4.0 x 28 Promus Synergy, post dilated in the proximal LAD with a 4.0 x 8 and a 4.5 x 8 NC Balloon; 855-->0%, no dissection. 02/17/2019 Successful PCI with PTCA to the ostial DIAG #1 through struts of LAD stent with a 2.5 x 8 Ballloon; 70%-->30%, no dissection. NO additional stenting needed or attempted. Hx of knee surgery Z98.890 Surgical History: angioplasty, pacemaker implantation, - - right knee arthroscopy Psychiatric History: No pertinent psych hx Lives: Alone Smoking Status: Former smoker Tobacco Use: Non-smoker Alcohol: Sober Drugs: None Review of Systems Constitutional: Denies: Chills, Fever, Weight Change HEENT: Denies: Head Aches, Sinus Congestion, Sinus Drainage Cardiovascular: Denies: Chest Pain, Palpitations Respiratory: Denies: Cough, Shortness of breath at rest, Sputum production Gastrointestinal: Denies: Abdominal Pain, Nausea, Vomiting Genitourinary: Denies: Dysuria Musculoskeletal: Reports: Joint swelling. Denies: Joint Pain, Joint Tenderness Skin: Reports: Skin Changes, Wounds. Denies: Rash Neurological: Denies: Numbness, Tingling, Focal weakness Psychiatric: Denies: Anxiety, Depression, Homicidal Ideations, Suicidal Ideations Hematologic/ Lymphatic: Denies: Easy Bruising, Easy Bleeding VTE Information - Inpt Only VTE Present on Admission: No VTE Mechan Device Prophylaxis: None VTE Pharm Prophylaxis ordered?: Yes Patient Problems: Active and Suspected Problems (Last Reviewed 09/27/19 @ 18:21 by Simona Whipple) Cellulitis and abscess of upper extremity (Acute) - Physical Exam Vitals/I&O's: Vital Signs Temp Pulse Resp BP Pulse Ox 97.6 F L 90 18 159/98 H 97 12/13/19 15:13 12/13/19 16:47 12/13/19 16:47 12/13/19 16:17 12/13/19 16:47 Oxygen Delivery Method Room Air Weight: 213 lb Body Mass Index (BMI) 27.3 General: Alert, Oriented x3, Cooperative HEENT: Atraumatic, PERRLA, EOMI, Normocephalic Neck: Supple, No JVD, Negative Carotid Bruits Lungs: Clear to auscultation, Normal air movement Cardiovascular: Regular rate, No murmurs Abdomen: Bowel Sounds Present, Soft, Non Tender Extremities: No edema, Capillary Refill Less than 3 Seconds Skin: - - left forearm with I&D'd abcess, with ongoing significant swelling, erythema, warmth, lymphatic stranding proximally. Musculoskeletal: No Tenderness to Palpation of Joints or Extremities, - - left elbow has some swelling, tenderness to palp. ROM intact. Distal PMS intact. Neurological: Cranial nerves II-XII grossly intact Psych/Mental Status: Normal Affect, Appropriate, Alert and oriented to time, place, person, mood and affect Laboratory Results 12/13/19 14:05: WBC 10.4, RBC 3.61 L, Hgb 13.5, Hct 39.2 L, MCV 108.6 H, MCH 37.4 H, MCHC 34.4, RDW Std Deviation 56.6 H, RDW Coeff of [place] 14.2, Plt Count 306, MPV 9.0, Immature Gran % (Auto) 0.700, Neut % (Auto) 73.9 H, Lymph % (Auto) 13.7 L, [place] % (Auto) 10.3 H, Eos % (Auto) 1.2, Baso % (Auto) 0.2, Absolute Neuts (auto) 7.7, Absolute Lymphs (auto) 1.42, Nucleated RBC % 0 12/13/19 14:05: Sodium 136, Potassium 4.0, Chloride 106, Carbon Dioxide 26.0, Anion Gap 4 L, BUN 5 L, Creatinine 0.71, Estim Creat Clear Calc 123.81, Est GFR (MDRD) Af Amer 144, Est GFR (MDRD) Non-Af 119, BUN/Creatinine Ratio 7.0 L, Glucose 101, Calcium 9.4 Current Medications Vancomycin HCl 1,500 mg/ (Sodium Chloride) 530 mls @ 250 mls/hr IV X1 ONE Stop: 12/13/19 19:07 Sodium Chloride () 250 mls @ 15 mls/hr IV .[id number] PRN PRN Reason: Saline Flush Assessment/Plan All Active Problems (Last Reviewed 09/27/19 @ 18:21 by Simona Whipple) Urinary tract infection (Acute) Dehydration (Acute) Declining functional status (Acute) Cellulitis and abscess of upper extremity (Acute) 1. Cellulitis with abscess left forearm - on imaging soft tissue swelling and small joint effusion. I&D at bedside completed in ER. Vanc/zosyn started - will continue. No evidence of sepsis. No fever / leukocytosis. Obtain CT for further evaluation of left elbow. Obtain wound cultures, consult wound care nurse. 2. Hx CAD, prior stents, ischemic CM - has AICD. EF45%. Continue asa/plavix/toprol/lisinopril. allergic to statins 3. Hx Vtach - pacemaker in place, continue amio 4. COPD, former smoker - no complaints at this time. Follows Dr. Hendrickson. 5. HTN - somewhat elevated, will trend. 6. HLD - allergic to statins, zetia. 7. Debility - recently DCd from [facility]. supposed to have HHC services but states they have not seen him yet. DVT ppx: lovenox DC planning: resume HHC at [place]. PTOT evals here with ongoing debility and recent [facility] DC. This patient was seen by Nilo Holly PA-C under the supervision of Dr. Kathleen. <Sarah Kathleen - Last Filed: 12/13/19 17:40> History of Present Illness The patient is a 64 year old M [] Past Medical History Medical History: Medical History (Last Reviewed 09/27/19 @ 18:21 by Simona Whipple) Hyperlipidemia (Chronic) E78.5 Atherosclerotic heart disease of [place] coronary artery without angina pectoris (Chronic) I25.10 12/28/1999 distal RCA was thrombectomized and stent placed; 04/01/2000 PTCA of distal RCA and ostium of the PDA for in-stent stenosis. [facility] 11/2005. Ischemic cardiomyopathy (Chronic) I25.5 Ventricular tachycardia (Chronic) I47.2 10/30/17 tsfer to [facility] with [place] storm Premature heartbeats (Chronic) I49.40 Benign hypertension (Chronic) I10 Tobacco user (Chronic) Z72.0 History of alcoholism (Chronic) F10.21 History of echocardiogram Onset Date: 04/03/17 Z92.89 EF 40-45% History of stress test Onset Date: 02/16/10 Z92.89 Allergies ezetimibe [From Zetia] Adverse Reaction (Severe, Verified 12/13/19 13:19) Myalgias Iodine and Iodide Containing Produc Adverse Reaction (Severe, Verified 12/13/19 13:19) Rash Kjtovee-Zwj-Qxu Reductase Inhibitor Adverse Reaction (Severe, Verified 12/13/19 13:19) Elevated Liver Enzymes Surgical History: Surgical History (Last Reviewed 09/27/19 @ 18:22 by Simona Whipple) History of left heart catheterization (LHC) (Chronic) Onset Date: 01/21/19 Z98.890 Will obtain old film from [place] from 2 years ago to see if LAD lesion has worsened. Apparently pt underwent FFR of this portion of LAD and was found to be 0.81 so no intervention was performed. He has had no AICD discharges since his cath at [place]. Intervention of this lesion is at moderate risk of the stent covering over DIAG, as well as eccentric calcium in proximal LAD sequeing into mid LAD lesion. I believe we could place the stent at the ostium of the mid LAD with minimal encroachment into DIAG, but pt has no anginal symptoms or change in his exercise capacity. I will obtain old films from [place] to compare mid LAD stenosis; if it appears to be worse, then will return for elective PCI of LAD with double wires. Presence of automatic (implantable) cardiac defibrillator (Chronic) Onset Date: 10/31/17 Z95.810 ICD Implant: 11/2005; ICD generator replacement 08/23/2010 History of coronary artery stent placement (Chronic) Onset Date: 02/17/19 Z95.5 12/28/1999 distal RCA was thrombectomized and stent placed; 04/01/2000 PTCA of distal RCA and ostium of the PDA for in-stent stenosis. Successful PTCA/DEMETRIO to Mid LAD with a 3.0 x 28 Promus Synergy, post dilated in middle stent with a 3.0 x 12 NC Balloon; 75%-->0%, no dissection. Successful PTCA/DEMETRIO Mid LAD across bifurcation of DIAG#1 and telescoped into mid LAD stent with a 4.0 x 28 Promus Synergy, post dilated in the proximal LAD with a 4.0 x 8 and a 4.5 x 8 NC Balloon; 855-->0%, no dissection. 02/17/2019 Successful PCI with PTCA to the ostial DIAG #1 through struts of LAD stent with a 2.5 x 8 Ballloon; 70%-->30%, no dissection. NO additional stenting needed or attempted. Hx of knee surgery Z98.890 - Physical Exam Vitals/I&O's: Vital Signs Temp Pulse Resp BP Pulse Ox 97.6 F L 90 18 159/98 H 97 12/13/19 15:13 12/13/19 16:47 12/13/19 16:47 12/13/19 16:17 12/13/19 16:47 Oxygen Delivery Method Room Air Weight: 213 lb Body Mass Index (BMI) 27.3 Laboratory Results 12/13/19 14:05: WBC 10.4, RBC 3.61 L, Hgb 13.5, Hct 39.2 L, MCV 108.6 H, MCH 37.4 H, MCHC 34.4, RDW Std Deviation 56.6 H, RDW Coeff of [place] 14.2, Plt Count 306, MPV 9.0, Immature Gran % (Auto) 0.700, Neut % (Auto) 73.9 H, Lymph % (Auto) 13.7 L, [place] % (Auto) 10.3 H, Eos % (Auto) 1.2, Baso % (Auto) 0.2, Absolute Neuts (auto) 7.7, Absolute Lymphs (auto) 1.42, Nucleated RBC % 0 12/13/19 14:05: Sodium 136, Potassium 4.0, Chloride 106, Carbon Dioxide 26.0, Anion Gap 4 L, BUN 5 L, Creatinine 0.71, Estim Creat Clear Calc 123.81, Est GFR (MDRD) Af Amer 144, Est GFR (MDRD) Non-Af 119, BUN/Creatinine Ratio 7.0 L, Glucose 101, Calcium 9.4 Current Medications Acetaminophen (Tylenol) 650 mg PO Q6H PRN PRN PRN Reason: Pain or Fever Amiodarone HCl (Cordarone) 200 mg PO DAILY [facility] Aspirin (Ecotrin) 81 mg PO DAILY JENNIFER Clopidogrel Bisulfate (Plavix) 75 mg PO DAILY JENNIFER Enoxaparin Sodium (Lovenox) 40 mg SC DAILY@0600 JENNIFER Hydralazine HCl (Apresoline Iv) 5 mg IV Q6H PRN PRN PRN Reason: BLOOD PRESSURE Piperacillin Sod/Tazobactam (Sod 3.375 gm/ Sodium Chloride) 50 mls @ 12.5 mls/hr IV Q8 JENNIFER Lisinopril (Zestril) 20 mg PO DAILY [facility] Metoprolol Succinate (Toprol Xl (Beta Sharona)) 50 mg PO DAILY [facility] Morphine Sulfate () 4 mg IV Q3H PRN PRN PRN Reason: Pain Score 6-10/10 Ondansetron HCl (Zofran) 4 mg IV Q6H PRN PRN PRN Reason: NAUSEA Oxycodone HCl (Oxyir) 5 - 10 mg PO Q6H PRN PRN PRN Reason: Pain Score 6-10/10 Assessment/Plan Patient seen by Nilo Holly PA-C under my supervision Patient is a 64 y/o male admitted with a complaint of left arm swelling and pain. Symptoms have been going on for about a week, with associated redness. He denied any associated fever or chills. He went to see his PCP today, and was referred to the ED for further evaluation. He had I& D done on admission in ED. o/e: Vital Signs Height 6 ft 2 in Weight: 210 lb Weight in Pounds 210.0 lbs BMI 29.2 Pulse Ox 98 Temperature 98.2 F Pulse Rate 88 Respiratory Rate 16 Blood Pressure 142/83 Blood Pressure Position Semi-Fowlers General: Alert, Oriented x3, Cooperative HEENT: Atraumatic, PERRLA, EOMI, Normocephalic Neck: Supple, No JVD, Negative Carotid Bruits Lungs: Clear to auscultation, Normal air movement Cardiovascular: Regular rate, No murmurs Abdomen: Bowel Sounds Present, Soft, Non Tender Extremities: No edema, Capillary Refill Less than 3 Seconds Skin: - - left forearm has mild swelling, redness and differential warmth around elbow; dressing over site of I&D; has erythema streaking towards the left axilla. Musculoskeletal: no limited range of motion of left upper extremity at elbow. Neurological: Cranial nerves II-XII grossly intact Psych/Mental Status: Normal Affect, Appropriate, Alert and oriented to time, place, person, mood and affect Labs show no leukocytosis with WBC of 10.4. Patient has no positive SIRS criteria. X-ray of the elbow showed diffuse soft tissue swelling and small joint effusion. Will admit and managed for cellulitis of the left upper extremity with abscess formation. Will need culture of pus from abscess, on IV vancomycin and Zosyn, will continue. Will get blood cultures. Will get CT of the left upper extremity to further evaluate as he does have a small joint effusion. This will be done without contrast as he has an iodine allergy. Rest as per Nilo Holly PA-C's notes which I have reviewed and endorsed. Code Visit Inpatient E&M: 25735 Init Hosp L3
--- NOTE | 2019-12-13 17:11 | CT_ITS ---
STUDY: CT LEFT ELBOW WITHOUT CONTRAST REASON FOR EXAM: Male, 64 years old. LEFT ARM SWELLING -- ? INFECTION-JOINT EFFUSION RADIATION DOSAGE (If Supplied By Facility): CTDIvol = ( 13.48 ) mGy, DLP = ( 858.74 ) mGycm TECHNIQUE: Transaxial CT imaging of the elbow was performed. Sagittal and coronal images were reconstructed. Individualized dose optimization techniques were used for this CT. COMPARISON: None. FINDINGS: Normal visualized humerus, radius and ulna. Normal radiocapitellar and ulnotrochlear articulations. There is a contains edema noted more significant along the posterolateral medial aspect of the forearm. There is a possible small subcutaneous collection measuring 3 x 2.2 x 1 cm posterior to the olecranon. A small subcutaneous abscess cannot be excluded. No joint effusion at the elbow. CT/Extremity Upper without Contra IMPRESSION: Subcutaneous edema of the forearm more significant along the posteromedial aspect. No joint effusion of the elbow. Questionable subcutaneous abscess posterior to the olecranon. Electronically Signed: Atif Knox DO at 18:13 EST Tel [phone], Service support ,
--- NOTE | 2019-12-13 18:48 | PCM.RX.CS ---
Consult Pharmacy has been consulted to manage selected antiobiotic: Vancomycin Type of Consult: New start Prior Doses of Antibiotics Received/Current Regimen: Medications Vancomycin HCl 1,500 mg/ (Sodium Chloride) 530 mls @ 250 mls/hr IV X1 ONE Stop: 12/13/19 20:37 Last Admin: 12/13/19 18:39 Dose: 250 mls/hr Documented by: Labs: Sodium 136 mmol/L (136-145) 12/13/19 14:05 Potassium 4.0 mmol/L (3.5-5.1) 12/13/19 14:05 Chloride 106 mmol/L (98-107) 12/13/19 14:05 Carbon Dioxide 26.0 mmol/L (21.0-32.0) 12/13/19 14:05 Anion Gap 4 (5-15) L 12/13/19 14:05 BUN 5 mg/dL (7-18) L 12/13/19 14:05 Creatinine 0.71 mg/dL (0.70-1.30) 12/13/19 14:05 Est GFR (MDRD) Af Amer 144 mL/min (>60) 12/13/19 14:05 Est GFR (MDRD) Non-Af 119 mL/min (>60) 12/13/19 14:05 BUN/Creatinine Ratio 7.0 RATIO (10-20) L 12/13/19 14:05 Glucose 101 mg/dL (74-106) 12/13/19 14:05 Weight used for dosin kg Estimated Creatinine Clearance: > 100 Goal Trough: 15-20 mcg/mL Pharmacy Plan for Drug Dosing: Vancomycin 1500mg IV x1 ordered initially per Nilo, continue with 1250mg IV q8h per policy. Trough prior to 4th dose per policy. Pharmacy Service will continue to monitor and adjust dosing as required. Follow-Up Labs: Trough Vancomycin - 12/15 @ 0230
[2019-12-13 20:41] LABS: Probe Check PASS; Staph aureus DNA By PCR POSITIVE (Negative)
[2019-12-13 20:43] LABS: M R Staph aureus DNA By PCR POSITIVE (Negative)
[2019-12-14] VITALS (11 sets, daily range): BP systolic 123–137; BP diastolic 63–94; PULSE 75–90; RESP 16–20; TEMP 36–36.4; O2SAT 95–97
[2019-12-14 05:55] LABS: Absolute Lymphocyte Count 1.77 X10^3/uL (0.83-4.51); Basophil# 0.03 X10^3/uL; Basophil% 0.4 % (0-1); Eosinophils% 2.5 % (0-5); Hematocrit 33.4 % (40-54); Hemoglobin 11.5 g/dL (13.0-16.5); Lymphocyte # 1.77 X10^3/ul (4.0); Mean Corp Hgb Conc 34.4 g/dL (32-36); Mean Corpuscular Volume 107.4 fL (80-94); Mean Platelet Vol. 9.7 fl (6.2-12.0); Monocyte# 1.01 X10^3/uL; Monocyte% 12.6 % (0-10); NRBC Flagged by Analyzer 0 % (0-5); Neutrophil # 4.98 X10^3/uL (2.7-7.7); Neutrophil % 61.9 % (47-70); Platelet Count 241 K/mm3 (150-450); RBC Distribution Width CV 14.2 % (11.6-14.6); Red Blood Count 3.11 M/mm3 (4.6-6.2)
[2019-12-14 06:15] LABS: Anion Gap 5 (5-15); BUN 8 mg/dL (7-18); BUN/Creat Ratio 12.5 RATIO (10-20); Calcium,Total 8.6 mg/dL (8.5-10.1); Chloride 108 mmol/L (98-107); Creatinine, Serum 0.64 mg/dL (0.70-1.30); EST Glomerular Filtration Rate 134 mL/min (>60); Est Glom Filt Rate - Afr Amer 162 mL/min (>60); Estimated Creatinine Clearance 137.36 ml/min; Glucose 96 mg/dL (74-106); Potassium 4.5 mmol/L (3.5-5.1); Sodium Level 138 mmol/L (136-145)
[2019-12-14] MEDS: Enoxaparin 40 MG/0.4 ML Syringe SC (06:26)
[2019-12-14] MEDS: Metoprolol(XL)Succ 50 MG Tablet PO (08:51)
[2019-12-14] MEDS: Clopidogrel Bisulfate 75 MG Tablet PO (08:51)
[2019-12-14] MEDS: Lisinopril 20 MG Tablet PO (08:51)
[2019-12-14] MEDS: Aspirin E.C. 81 MG Tablet PO (08:52)
[2019-12-14] MEDS: Amiodarone 200 MG Tablet PO (08:52)
[2019-12-14 10:42] LABS: Uric Acid 3.9 mg/dL (3.5-7.2)
--- NOTE | 2019-12-14 11:44 | CASEMGMT ---
RN CM Assessment Introduced role of RN CM to patient.? Patient is alert, oriented and able?to participate in RN CM Assessment. ?Care providers, pharmacy, and demographics verified. Presentation: Lt arm swelling Admit Dx: Cellulitis Re-Admit: Yes, Admitted 11/20-11/23/2019 for UTI, Dehydration, Lactic Acidosis. Was DC'd to [facility] for Debility and DC'd from [facility] on 12/02/2019. Barriers/Issues: States was supposed to be Dc'd from [facility] with [facility] PT- not sure of agency CVA? [place] placed by Dr Del Rosario. States that the number that he has is different from the one that the [employer] [facility] has. States that the HHC was supposed to call Friday-yesterday and not sure if they did as he was at the Dr's office at 1100 yesterday and the [facility] was going to call for possible visit for today Friday. States that his Ex- used to live with him prior to being placed at [facility]- possible Senior Care if no improvement with her but patient states concern regarding situation and that the hopes were for her to regain strength and get better to return home with him. has been living alone since this. PCP: Shay Del Rosario III Specialists: Cardio- Dr Nielson Preferred Pharmacy: [facility] Insurance: [facility] Rx Benefit:?Yes ?LNOK: Brother Donnell Paulino LW/HPOA: None, patient states that he needs to do this admission but would like to think about some things first, declines offered information. Aware to notify staff upon readiness to complete on this admission. Living Arrangements:? Lives alone in a Split level home with 10 steps to enter home ADL?s: Prior was Independent with ambulation but has been getting PT at [facility] and supposed to have [facility] PT to start. Has been using a 2WW since illness. Independent with ADLs Transportation: Patient drives DME: 2WW, 4WW, Shower Chair HHC: None, supposed to be current with [facility]- (1151- S/w Opal at [facility] and confirmed referred to [facility] #[phone]) SNF: [facility]- Dc'd 12/02/2019 Goal: Home with [facility] PT. 1155- Called [facility], s/w Kristina and states that the [facility] area is closing and that she thought the [facility] area was supposed to still be servicing these patients. Provided this RNCM contact and primary RNCM Geno Bustamante contact and states that she will make a phone call to get some answers to return call to either this card writer hand or primary RNCM. DC PLAN: Home with HH PT. 1200- Return call from Nancy from [facility] and states patient was referred for HH PT, no additional services. States that his case was opened 12/10/2019 and first visit set up for tomorrow 12/15/2019 with all other subsequent visits set up through 12/30/2019. Aware patient is currently admitted and states that she will have to email Central intake dept - (head of intake) clinical coordinator Nasreen Day #[phone], whom is based out of [place] office to call primary RNDUANE Bustamante with needed process for referral as she states since patient is admitted it would close the previous referral out, requiring a new referral and not a JAY, states she does not know off hand the fax number to [facility]. This card writer hand will update primary RNCM with mauro. YI Srinivasan
--- NOTE | 2019-12-14 12:46 | NURSING ---
Student documentation reviewed.
--- NOTE | 2019-12-14 14:03 | PCM.PN.HOSP ---
<Nilo Holly - Last Filed: 12/14/19 14:03> Patient Problems: Active and Suspected Problems (Last Reviewed 09/27/19 @ 18:21 by Simona Whipple) Cellulitis and abscess of upper extremity (Acute) left elbow abscess Reason for Visit: left arm abscess Subjective: Pts CT showed possible abscess posterior to the olecranon, Dr. Tena is considering taking him to the OR for washout. The patient is very anxious regarding the possible need for surgery and is requesting something for anxiety. He has had significant improvement in pain since yesterday. cultures shows MRSA. he denies prior skin infections. no fever/chills. no numbness/tingling in the effected extremity. Vitals/I&O's: Vital Signs Temp Pulse Resp BP Pulse Ox 97.5 F L 85 20 H 129/71 H 96 12/14/19 11:11 12/14/19 11:14 12/14/19 11:14 12/14/19 11:11 12/14/19 11:14 Oxygen Delivery Method Room Air Weight: 209 lb 15.986 oz Body Mass Index (BMI) 26.9 Intake and Output for Last 24 Hours 12/12/19 12/13/19 12/14/19 23:59 23:59 23:59 Intake Total 580 / 900 1120 / 1120 Balance 580 / 900 1120 / 1120 General: Alert, Oriented x3, Cooperative HEENT: Atraumatic, PERRLA, EOMI, Normocephalic Neck: Supple, No JVD, Negative Carotid Bruits Lungs: Clear to auscultation, Normal air movement Cardiovascular: Regular rate, No murmurs Abdomen: Bowel Sounds Present, Soft, Non Tender Extremities: No edema, Capillary Refill Less than 3 Seconds, - - distal PMS intact. Skin: No rashes, No breakdown Musculoskeletal: No Tenderness to Palpation of Joints or Extremities, - - ROM intact. Neurological: Cranial nerves II-XII grossly intact Psych/Mental Status: Normal Affect, Appropriate, Alert and oriented to time, place, person, mood and affect Microbiology Past 72 Hours 12/13/19 18:25 Abs - Elbow Gram Stain - Final 12/13/19 18:25 Abs - Elbow Wound Culture - Preliminary Beta hemolytic organism Laboratory Results 12/13/19 14:05: WBC 10.4, RBC 3.61 L, Hgb 13.5, Hct 39.2 L, MCV 108.6 H, MCH 37.4 H, MCHC 34.4, RDW Std Deviation 56.6 H, RDW Coeff of Yoli 14.2, Plt Count 306, MPV 9.0, Immature Gran % (Auto) 0.700, Neut % (Auto) 73.9 H, Lymph % (Auto) 13.7 L, Karnes % (Auto) 10.3 H, Eos % (Auto) 1.2, Baso % (Auto) 0.2, Absolute Neuts (auto) 7.7, Absolute Lymphs (auto) 1.42, Nucleated RBC % 0 12/13/19 14:05: Sodium 136, Potassium 4.0, Chloride 106, Carbon Dioxide 26.0, Anion Gap 4 L, BUN 5 L, Creatinine 0.71, Estim Creat Clear Calc 123.81, Est GFR (MDRD) Af Amer 144, Est GFR (MDRD) Non-Af 119, BUN/Creatinine Ratio 7.0 L, Glucose 101, Calcium 9.4 12/13/19 18:25: S.aureus Protein A PCR POSITIVE H, MRSA (PCR) POSITIVE H 12/14/19 05:35: WBC 8.0, RBC 3.11 L, Hgb 11.5 L, Hct 33.4 L, MCV 107.4 H, MCH 37.0 H, MCHC 34.4, RDW Std Deviation 56.0 H, RDW Coeff of Yoli 14.2, Plt Count 241, MPV 9.7, Immature Gran % (Auto) 0.600, Neut % (Auto) 61.9, Lymph % (Auto) 22.0, Karnes % (Auto) 12.6 H, Eos % (Auto) 2.5, Baso % (Auto) 0.4, Absolute Neuts (auto) 5.0, Absolute Lymphs (auto) 1.77, Nucleated RBC % 0 12/14/19 05:35: Sodium 138, Potassium 4.5, Chloride 108 H, Carbon Dioxide 25.0, Anion Gap 5, BUN 8, Creatinine 0.64 L, Estim Creat Clear Calc 137.36, Est GFR (MDRD) Af Amer 162, Est GFR (MDRD) Non-Af 134, BUN/Creatinine Ratio 12.5, Glucose 96, Calcium 8.6 12/14/19 05:35: Uric Acid 3.9 Current Medications Acetaminophen (Tylenol) 650 mg PO Q6H PRN PRN PRN Reason: Pain or Fever Amiodarone HCl (Cordarone) 200 mg PO DAILY [facility] Last Admin: 12/14/19 08:52 Dose: 200 mg Documented by: Aspirin (Ecotrin) 81 mg PO DAILY [facility] Last Admin: 12/14/19 08:52 Dose: 81 mg Documented by: Clopidogrel Bisulfate (Plavix) 75 mg PO DAILY [facility] Last Admin: 12/14/19 08:51 Dose: 75 mg Documented by: Enoxaparin Sodium (Lovenox) 40 mg SC DAILY@0600 [facility] Last Admin: 12/14/19 06:26 Dose: 40 mg Documented by: Hydralazine HCl (Apresoline Iv) 5 mg IV Q6H PRN PRN PRN Reason: BLOOD PRESSURE Piperacillin Sod/Tazobactam (Sod 3.375 gm/ Sodium Chloride) 50 mls @ 12.5 mls/hr IV Q8 [facility] Last Admin: 12/14/19 13:33 Dose: 12.5 mls/hr Documented by: Vancomycin HCl 1,250 mg/ (Sodium Chloride) 275 mls @ 167 mls/hr IV Q8H [facility] Last Infusion: 12/14/19 12:45 Dose: Infused Documented by: Lisinopril (Zestril) 20 mg PO DAILY [facility] Last Admin: 12/14/19 08:51 Dose: 20 mg Documented by: Metoprolol Succinate (Toprol Xl (Beta Sharona)) 50 mg PO DAILY [facility] Last Admin: 12/14/19 08:51 Dose: 50 mg Documented by: Morphine Sulfate () 4 mg IV Q3H PRN PRN PRN Reason: Pain Score 6-10/10 Nutritional Formula (Lactose Free) (Ensure Enlive) 120 ml PO 4X/DAY [facility] Last Admin: 12/14/19 13:33 Dose: Not Given Documented by: Ondansetron HCl (Zofran) 4 mg IV Q6H PRN PRN PRN Reason: NAUSEA Oxycodone HCl (Oxyir) 5 - 10 mg PO Q6H PRN PRN PRN Reason: Pain Score 6-10/10 Sodium Chloride () 10 - 40 ml IV UD PRN PRN Reason: SALINE FLUSH STROKE Vital Signs/Narrative: Vital Signs Temp Pulse Resp BP Pulse Ox 12/14/19 11:14 85 20 H 96 12/14/19 11:11 97.5 F L 85 20 H 129/71 H 96 Medical Necessity - Tobacco Use Smoking Status: Former smoker Tobacco Use: Cigarettes Assessment/Plan All Active Problems (Last Reviewed 09/27/19 @ 18:21 by Simona Whipple) Urinary tract infection (Acute) Dehydration (Acute) Declining functional status (Acute) Cellulitis and abscess of upper extremity (Acute) 1. Cellulitis with abscess left forearm - ortho consulted regarding CT findings. may need washout. MRSA +. continue Vanco zosyn while cx pending. No evidence of sepsis. 2. Hx CAD, prior stents, ischemic CM - has AICD. EF45%. Continue asa/plavix/toprol/lisinopril. allergic to statins 3. Hx Vtach - pacemaker in place, continue amio 4. COPD, former smoker - no complaints at this time. Follows Dr. Hendrickson. 5. HTN - somewhat elevated, will trend. 6. HLD - allergic to statins, zetia. 7. Debility - recently DCd from [facility]. supposed to have HHC services but states they have not seen him yet. DVT ppx: lovenox DC planning[place]. PTOT evals here with ongoing debility and recent [facility] DC. This patient was seen by Nilo Holly PA-C under the supervision of Dr. Au <Adrian Au - Last Filed: 12/14/19 16:14> Vitals/I&O's: Vital Signs Temp Pulse Resp BP Pulse Ox 97.5 F L 85 20 H 129/71 H 96 12/14/19 11:11 12/14/19 11:14 12/14/19 11:14 12/14/19 11:11 12/14/19 11:14 Oxygen Delivery Method Room Air Weight: 209 lb 15.986 oz Body Mass Index (BMI) 26.9 Intake and Output for Last 24 Hours 12/12/19 12/13/19 12/14/19 23:59 23:59 23:59 Intake Total 580 / 900 1120 / 1120 Balance 580 / 900 1120 / 1120 Microbiology Past 72 Hours 12/13/19 18:25 Abs - Elbow Gram Stain - Final 12/13/19 18:25 Abs - Elbow Wound Culture - Preliminary Beta hemolytic organism Laboratory Results 12/13/19 18:25: S.aureus Protein A PCR POSITIVE H, MRSA (PCR) POSITIVE H 12/14/19 05:35: WBC 8.0, RBC 3.11 L, Hgb 11.5 L, Hct 33.4 L, MCV 107.4 H, MCH 37.0 H, MCHC 34.4, RDW Std Deviation 56.0 H, RDW Coeff of Yoli 14.2, Plt Count 241, MPV 9.7, Immature Gran % (Auto) 0.600, Neut % (Auto) 61.9, Lymph % (Auto) 22.0, Karnes % (Auto) 12.6 H, Eos % (Auto) 2.5, Baso % (Auto) 0.4, Absolute Neuts (auto) 5.0, Absolute Lymphs (auto) 1.77, Nucleated RBC % 0 12/14/19 05:35: Sodium 138, Potassium 4.5, Chloride 108 H, Carbon Dioxide 25.0, Anion Gap 5, BUN 8, Creatinine 0.64 L, Estim Creat Clear Calc 137.36, Est GFR (MDRD) Af Amer 162, Est GFR (MDRD) Non-Af 134, BUN/Creatinine Ratio 12.5, Glucose 96, Calcium 8.6 12/14/19 05:35: Uric Acid 3.9 Current Medications Acetaminophen (Tylenol) 650 mg PO Q6H PRN PRN PRN Reason: Pain or Fever Amiodarone HCl (Cordarone) 200 mg PO DAILY [facility] Last Admin: 12/14/19 08:52 Dose: 200 mg Documented by: Aspirin (Ecotrin) 81 mg PO DAILY [facility] Last Admin: 12/14/19 08:52 Dose: 81 mg Documented by: Clopidogrel Bisulfate (Plavix) 75 mg PO DAILY [facility] Last Admin: 12/14/19 08:51 Dose: 75 mg Documented by: Enoxaparin Sodium (Lovenox) 40 mg SC DAILY@0600 [facility] Last Admin: 12/14/19 06:26 Dose: 40 mg Documented by: Hydralazine HCl (Apresoline Iv) 5 mg IV Q6H PRN PRN PRN Reason: BLOOD PRESSURE Piperacillin Sod/Tazobactam (Sod 3.375 gm/ Sodium Chloride) 50 mls @ 12.5 mls/hr IV Q8 [facility] Last Admin: 12/14/19 13:33 Dose: 12.5 mls/hr Documented by: Vancomycin HCl 1,250 mg/ (Sodium Chloride) 275 mls @ 167 mls/hr IV Q8H [facility] Last Infusion: 12/14/19 12:45 Dose: Infused Documented by: Lisinopril (Zestril) 20 mg PO DAILY [facility] Last Admin: 12/14/19 08:51 Dose: 20 mg Documented by: Metoprolol Succinate (Toprol Xl (Beta Sharona)) 50 mg PO DAILY [facility] Last Admin: 12/14/19 08:51 Dose: 50 mg Documented by: Morphine Sulfate () 4 mg IV Q3H PRN PRN PRN Reason: Pain Score 6-10/10 Nutritional Formula (Lactose Free) (Ensure Enlive) 120 ml PO 4X/DAY [facility] Last Admin: 12/14/19 13:33 Dose: Not Given Documented by: Ondansetron HCl (Zofran) 4 mg IV Q6H PRN PRN PRN Reason: NAUSEA Oxycodone HCl (Oxyir) 5 - 10 mg PO Q6H PRN PRN PRN Reason: Pain Score 6-10/10 Sodium Chloride () 10 - 40 ml IV UD PRN PRN Reason: SALINE FLUSH Last Admin: 12/14/19 14:26 Dose: 10 ml Documented by: Code Visit Addendum: Dr. Au I personally examined the patient and reviewed the chart. I agree with the above. 64-year-old male presenting with left elbow cellulitis cellulitis and found to have an abscess on CT scan. There was an I&D done at bedside in the ER and wound culture showing very rare beta-hemolytic organism. He is currently on vancomycin and Zosyn and hopefully will be able to narrow down soon with sensitivities and identification of the organism. There is a possible OR washout today by orthopedic surgery based on the CT scan demonstrating the abscess. He is highly anxious for this procedure and will likely need anxiolytics throughout his stay. He is also refusing placement to a long term facility, and he is reticent about having home health as well. Inpatient E&M: [id number] [facility] L2
[2019-12-14] MEDS: 0.9% Saline Lock 10 ML Syringe IV ×2 (14:26→18:45)
[2019-12-14] MEDS: LORazepam 2 MG/ML Syringe 1 MG IV (14:26)
--- NOTE | 2019-12-14 14:33 | CASEMGMT ---
Social Work Note ROLANDO reviewed chart, pt has history of alcoholism. SW met with pt and introduced self and role at [facility]. Pt is alert and orientated x4. SW spoke with pt regarding his alcohol use. Pt states he stopped drinking alcohol 3 years ago but then states he will occasionally have a beer from time to time. Pt denied any current alcohol abuse. Pt states she also quit smoking 3 years ago. Pt states that he is feeling anxious right now as he doesn't know medically what is going on with him right now. Pt states that his mom last Friday, his dad has dementia and his is at a custodial and medically she has some things going on with her right now as well. SW offered support to pt. Pt states that he just feels overwhelmed. SW spoke with pt regarding feelings of being overwhelmed and normalized pt's feelings. SW offered to provide pt with counseling resources and pt denied. Pt denied additional needs or concerns at this time. Geno Dominguez PLEATER HAND, CELL RELINER
--- NOTE | 2019-12-14 16:03 | CONS.ORTHO ---
Problem List (1) Cellulitis and abscess of upper extremity Status: Acute Comment: left elbow abscess - Consult Date of Consult: 12/14/19 Patient was seen at bedside in no acute distress. Patient had a little bit of anxiety and was a little teary-eyed at first but after talking with him he calm down very easily. Inspection of the left elbow did show a small 1.5 cm horizontal incision site from procedure performed in the emergency department. There was some mild surrounding pink erythema. There was some minor sloughing skin around the incision site with a minor blistering appearance at the same time no active or evident discharge. Palpation of the elbow showed some mild induration around the same incision site sometimes no evident warmth. I was unable to produce any type of discharge from the incision site with manipulation of the wound as there was already closure of the wound. Patient has some minor tenderness on palpation he states approximately a 2 or a 3. Patient has intact sensation throughout the entire upper extremity and normal distal radial pulses and capillary refill. At this time patient has evident cellulitis with abscess on the left elbow that has shown market improvement with incision and drainage in the emergency department followed by appropriate antibiotics. There is however still some evidence of underlying fluid accumulation as the wound has closed already. We did discuss with his extensive medical history options at this time which include trying a another incision and drainage with some packing at the bedside with continued IV antibiotics versus proceeding with operative incision and drainage requiring general anesthesia. After discussion with patient he would really prefer not to have any type of anesthesia and therefore agreed to proceed with a small incision and drainage at the bedside with some iodoform gauze packing. Risks and benefits of the procedure were discussed with patient and consent was signed in the room today. The area was initially cleansed with alcohol pad as well as chlorehexadine prep stick. 5 cc of 1% lidocaine with epinephrine were then used to anesthetize the area superficially. The area was then cleansed again wiped with an alcohol pad. An 11 blade was then used to make a small superficial incision over the same incision performed to the emergency department. A hemostat was then used to gently open the wound a little bit. Once this was performed there was evident blood clots followed by some purulent material that was removed from the wound. I manipulated the wound to make sure that we get all of the discharge and clots out. The area was then cleansed more time and then packed with 1/4 inch iodoform gauze. Once packing was complete 4 x 4's and ABD dressing were applied and an overlying Abel wrap over the elbow area for some compression. We can leave the dressing in place for 24 hours and will take out the packing tomorrow and re-bandage. Can take the dressing down if needed for any concerns or complaints. Patient tolerated the procedure with minimal if any discomfort at all. - Reason for Consult Patient was consulted for left elbow abscess that was drained in the emergency department at the same time possibly requiring surgical incision and drainage Code Visit 10xxx: [id number] Drainage of skin abscess - Drainage of single abscess of left elbow with iodoform packing
--- NOTE | 2019-12-14 16:30 | CHAPLAIN ---
Type of Pastoral Visit _x__ Initial Visit ___ Follow-up Visit ___ On-call Visit ___ General Patient Visit ___ Spiritual Assessment ___ Family Conference ___ Bereavement ___ Rapid Response ___ Code Blue ___ Other (describe below) Pastoral Care Referral From _x__ Patient ___ Family ___ Nurse ___ Physician ___ Numerical Control Nesting Operator ___ [place] Utility Worker ___ Other (describe below) Sacrament/Intervention _x__ Active listening ___ Anointing ___ Sikh ___ Bereavement ___ Communion ___ Yissel exploration ___ _x__ Life review _x__ Prayer ___ Reconciliation ___ Sacrament of Sick ___ Wedding ___ Other (describe below) Pastoral Comments 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
[2019-12-14] MEDS: LORazepam 2 MG/ML Syringe 0.5 MG IV (18:44)
[2019-12-14] MEDS: Acetaminophen 325 MG Tablet 650 MG PO (21:05)
[2019-12-15 03:25] LABS: Vancomycin, Trough Level 24.5 ug/mL (5.0-15.0)
[2019-12-15] MEDS: guaiFENesin 10 ML UDC (200MG/10ML) PO ×2 (04:50→09:29)
[2019-12-15 05:45] VITALS: PULSE 69
[2019-12-15] MEDS: Enoxaparin 40 MG/0.4 ML Syringe SC (05:48)
[2019-12-15 08:11] VITALS: RESP 17; O2SAT 96
[2019-12-15 09:29] VITALS: PULSE 72
[2019-12-15] MEDS: Metoprolol(XL)Succ 50 MG Tablet PO (09:29)
[2019-12-15] MEDS: Aspirin E.C. 81 MG Tablet PO (09:29)
[2019-12-15] MEDS: Lisinopril 20 MG Tablet PO (09:29)
[2019-12-15] MEDS: Clopidogrel Bisulfate 75 MG Tablet PO (09:29)
[2019-12-15] MEDS: Amiodarone 200 MG Tablet PO (09:29)
[2019-12-15 09:45] VITALS: BP 135/70; PULSE 86; RESP 16; TEMP 36.4; O2SAT 96
[2019-12-15 10:21] VITALS: BP 135/73; PULSE 96; RESP 16; TEMP 37.1; O2SAT 96
--- NOTE | 2019-12-15 10:24 | PCM.PN.ORT ---
Patient Problems: Active and Suspected Problems (Last Reviewed 09/27/19 @ 18:21 by Simona Whipple) Cellulitis and abscess of upper extremity (Acute) left elbow abscess Subjective: Patient states that he feels he is doing well. He has no pain at this time in the elbow stating he really only had one sharp pain last night but has been fine since. He denies any numbness or tingling, swelling, weakness, or any other complaints. Objective: PAtient was resting comfortably in the bed upon arriving. His tee wrap had actually slid distally and was not really covering the wound. The wound looked very good this morning having no more erythema and there was minimal swelling. There was still some minor superficial sloughing with some purplish coloration around the blister area adjacent to the incision site which is similar to yesterday. There was still some minor induration noted on palpation at the same time was much less than yesterday. He did not have any tenderness on palpation this morning. The majority of packing actually had dislodged on the guaze as it slid distally and therefore I removed the remaining packing. I cleansed the area with saline irritation and re-dressed the area. Patient had no discomfort during any of this. - Physical Exam Vitals/I&O's: Vital Signs Temp Pulse Resp BP Pulse Ox 98.8 F 96 16 135/73 H 96 12/15/19 10:21 12/15/19 10:21 12/15/19 10:21 12/15/19 10:21 12/15/19 10:21 Oxygen Delivery Method Room Air Weight: 209 lb 15.986 oz Body Mass Index (BMI) 26.9 Intake and Output for Last 24 Hours 12/13/19 12/14/19 12/15/19 23:59 23:59 23:59 Intake Total 580 / 900 1695 / 1695 325.0 / 325.0 Output Total 100 / 500 1150 / 1150 Balance 580 / 900 1595 / 1195 -825.0 / -825.0 General: Alert, Oriented x3, Cooperative, No apparent distress Lungs: Normal air movement Extremities: Capillary Refill Less than 3 Seconds, Peripheral Pulses Normal - normal distal radial pulses Skin: No rashes, No breakdown, Incision - incision shows no surrounding erythema, no acute discharge, no warmth and no tenderness. Still some minor induration noted but improved from yesterday Microbiology Past 72 Hours 12/13/19 18:25 Abs - Elbow Gram Stain - Final 12/13/19 18:25 Abs - Elbow Wound Culture - Preliminary Beta hemolytic organism Laboratory Results 12/14/19 05:35: Uric Acid 3.9 12/15/19 02:35: Vancomycin Trough 24.5 H Current Medications Acetaminophen (Tylenol) 650 mg PO Q6H PRN PRN PRN Reason: Pain or Fever Last Admin: 12/14/19 21:05 Dose: 650 mg Documented by: Amiodarone HCl (Cordarone) 200 mg PO DAILY [facility] Last Admin: 12/15/19 09:29 Dose: 200 mg Documented by: Aspirin (Ecotrin) 81 mg PO DAILY [facility] Last Admin: 12/15/19 09:29 Dose: 81 mg Documented by: Clopidogrel Bisulfate (Plavix) 75 mg PO DAILY [facility] Last Admin: 12/15/19 09:29 Dose: 75 mg Documented by: Enoxaparin Sodium (Lovenox) 40 mg SC DAILY@0600 [facility] Last Admin: 12/15/19 05:48 Dose: 40 mg Documented by: Guaifenesin (Robitussin) 10 ml PO Q4H PRN PRN PRN Reason: COUGH Last Admin: 12/15/19 09:29 Dose: 10 ml Documented by: Hydralazine HCl (Apresoline Iv) 5 mg IV Q6H PRN PRN PRN Reason: BLOOD PRESSURE Piperacillin Sod/Tazobactam (Sod 3.375 gm/ Sodium Chloride) 50 mls @ 12.5 mls/hr IV Q8 [facility] Last Admin: 12/15/19 05:44 Dose: 12.5 mls/hr Documented by: Vancomycin HCl 1,250 mg/ (Sodium Chloride) 275 mls @ 167 mls/hr IV Q8H [facility] Last Infusion: 12/15/19 04:01 Dose: Infused Documented by: Lisinopril (Zestril) 20 mg PO DAILY [facility] Last Admin: 12/15/19 09:29 Dose: 20 mg Documented by: Lorazepam (Ativan) 0.5 mg IV Q6H PRN PRN PRN Reason: ANXIETY Last Admin: 12/14/19 18:44 Dose: 0.5 mg Documented by: Metoprolol Succinate (Toprol Xl (Beta Sharona)) 50 mg PO DAILY [facility] Last Admin: 12/15/19 09:29 Dose: 50 mg Documented by: Morphine Sulfate () 4 mg IV Q3H PRN PRN PRN Reason: Pain Score 6-10/10 Multi-Ingredient Cream (Eucerin) 1 applic TOPICAL BID PRN PRN; Protocol PRN Reason: DRY SKIN Last Admin: 12/15/19 09:38 Dose: 1 applic Documented by: Nutritional Formula (Lactose Free) (Ensure Enlive) 120 ml PO 4X/DAY [facility] Last Admin: 12/15/19 09:29 Dose: 120 ml Documented by: Ondansetron HCl (Zofran) 4 mg IV Q6H PRN PRN PRN Reason: NAUSEA Oxycodone HCl (Oxyir) 5 - 10 mg PO Q6H PRN PRN PRN Reason: Pain Score 6-10/10 Sodium Chloride () 10 - 40 ml IV UD PRN PRN Reason: SALINE FLUSH Last Admin: 12/14/19 18:45 Dose: 10 ml Documented by: Medical Necessity - Tobacco Use Smoking Status: Former smoker Tobacco Use: Cigarettes Assessment/Plan All Active Problems (Last Reviewed 09/27/19 @ 18:21 by Simona Whipple) Urinary tract infection (Acute) Dehydration (Acute) Declining functional status (Acute) Cellulitis and abscess of upper extremity (Acute) Patient seen status post incision and drainage of left abscess with packing at the bedside yesterday. Incision site looks very good today having no acute erythema, swelling, rashes, no active discharge, improved induration, and no tenderness. There was some minor superficial sloughing\peeling adjacent to the incision site. A lot of the packing had already come out and therefore removed the remaining packing. Patient had no pain at this time. Patient likely will be able to go home today with continued improvement. He will need to continue outpatient oral antibiotics as directed and will need to f/u with wound center for dressing changes, debridement, and wound care. Keep area clean and covered with non-adherent dressing / gauze and some minor compression (tee wrap). Monitor and notify of return of erythema, worsening discharge, warmth, increased pain, or any other complaints which could mean he would need more in depth surgical treatment.
--- NOTE | 2019-12-15 11:34 | DCINST_ITS ---
- Discharge Diagnoses Current Active Problems: Current Active and Chronic Problems (Last Reviewed 09/27/19 @ 18:21 by Simona Whipple) Cellulitis and abscess of upper extremity (Acute) left elbow abscess Additional Instructions: Apply to wound: continue dry dressing with gauze, tee wrap over this with firm pressure. Allergies/Adverse Reactions: Allergies Iodine and Iodide Containing Produc Allergy (Severe, Verified 12/13/19 17:37) Rash ezetimibe [From Zetia] Adverse Reaction (Severe, Verified 12/13/19 13:19) Myalgias Ksotxjn-Urv-Wof Reductase Inhibitor Adverse Reaction (Severe, Verified 12/13/19 13:19) Elevated Liver Enzymes Medications to take at Discharge aspirin 81 mg tablet,delayed release 81 mg PO DAILY 10/14/17 nitroglycerin 0.4 mg sublingual tablet 0.4 mg SUBLINGUAL Q5M PRN #25 tab 05/08/18 Amiodarone HCl 200 mg PO DAILY 11/20/19 Clopidogrel Bisulfate [Clopidogrel] 75 mg PO DAILY 11/20/19 Lisinopril 20 mg PO DAILY 11/20/19 Metoprolol Succinate [Toprol Xl] 50 mg PO DAILY 11/20/19 Multivit-Min/FA/Lycopen/Lutein [Centrum Silver Men Tablet] 1 ea PO DAILY 12/13/19 Acetaminophen [Tylenol Tablet] 650 mg PO Q6H PRN PRN tablet 12/15/19 Oxycodone [Oxyir] 5 mg PO Q6H PRN PRN 3 Days #12 tablet 12/15/19 Smz/Tmp Ds [Bactrim Ds] 1 tab PO BID #10 tab 12/15/19 The following prescriptions were given: Smz/Tmp Ds [Bactrim Ds] 1 tab PO BID #10 tab Transmission Status: Pending to [facility] Oxycodone [Oxyir] 5 mg PO Q6H PRN PRN 3 Days #12 tablet PRN Reason: Pain Score 6-10/10 Transmission Status: Sent to [facility] Primary Care Physician: Shay Del Rosario III, MD [Primary Care Provider] - Please follow up with your Primary Care Physician in: 1-2 weeks Test Results: Test results from this visit will be discussed in further detail at your follow- up appointment, if applicable. Please Follow Up With: Wound care center When: 1-2 weeks Proposed Discharge Date: 12/15/19
[2019-12-15 12:11] VITALS: PULSE 90
--- NOTE | 2019-12-15 12:12 | PCM.RX.CS ---
Consult Pharmacy has been consulted to manage selected antiobiotic: Vancomycin Type of Consult: Follow-up Suspected Infection: Skin/Soft tissue Prior Doses of Antibiotics Received/Current Regimen: 5 Labs: Sodium 138 mmol/L (136-145) 12/14/19 05:35 Potassium 4.5 mmol/L (3.5-5.1) 12/14/19 05:35 Chloride 108 mmol/L (98-107) H 12/14/19 05:35 Carbon Dioxide 25.0 mmol/L (21.0-32.0) 12/14/19 05:35 Anion Gap 5 (5-15) 12/14/19 05:35 BUN 8 mg/dL (7-18) 12/14/19 05:35 Creatinine 0.64 mg/dL (0.70-1.30) L 12/14/19 05:35 Est GFR (MDRD) Af Amer 162 mL/min (>60) 12/14/19 05:35 Est GFR (MDRD) Non-Af 134 mL/min (>60) 12/14/19 05:35 BUN/Creatinine Ratio 12.5 RATIO (10-20) 12/14/19 05:35 Glucose 96 mg/dL (74-106) 12/14/19 05:35 Vancomycin Trough 20.0 ug/mL (5.0-15.0) H 12/15/19 11:06 VANCO TROUGH ORDERED PRIOR TO 4TH NEW DOSE Microbiology: Microbiology 12/13/19 18:25 Abs - Elbow Gram Stain - Final 12/13/19 18:25 Abs - Elbow Wound Culture - Preliminary Staphylococcus aureus Weight used for dosin.25 kg Estimated Creatinine Clearance: 137 Goal Trough: 15-20 mcg/mL - DOSE CHANGE TO 1 GRAM Q8H BASED ON TROUGH LEVEL = 20 AT 8.75HRS Pharmacy Plan for Drug Dosing: Pharmacy Service will continue to monitor and adjust dosing as required.
--- NOTE | 2019-12-15 12:29 | NURSING ---
Student documentation reviewed.
[2019-12-15] MEDS: Vancomycin IV 1,000 MG/200 ML BAG 200 MG IV (12:30)
--- NOTE | 2019-12-15 13:14 | CASEMGMT ---
FRANSISCA ZEPEDA called Nasreen at [facility] and updated that patient will be discharging today. Discharge paperwork faxed to [facility].
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
--- NOTE | 2019-12-16 15:48 | CASEMGMT ---
FRANSISCA ZEPEDA Discharge Follow-up Phone Call: KOKI: Kiah Strata: 3 Call Date: 12/16/2019 Discharge Date: 12/15/2019 Time of Call: 1545 Duration: 1 min Admitting Diagnosis: Cellulitis RN DUANE attempted to complete follow-up phone call after recent hospitalization. No answer, voice message left with turn contact information. [facility]. Follow-up appts made prior to discharge for wound center and PCP. [facility] was setup with PATSY
== END 2019-12-15 15:10 | disposition home health service (06) | DRG 383 ==
LOC: ED 14:08 → MS3 12-14 07:02
PROVIDERS: Orthopaedic Surgery; Physician Assistant; Admitting Provider Student in an Organized Health Care Education/Training Program; Emergency Provider Emergency Medicine; PCP Family Medicine; Visit Provider Family Medicine
DX: L02.414 Cutaneous abscess of left upper limb (principal); L03.114 Cellulitis of left upper limb; B95.62 Methicillin resistant Staphylococcus aureus infection as the cause of diseases classified elsewhere; I10 Essential (primary) hypertension; E78.5 Hyperlipidemia, unspecified; J44.9 Chronic obstructive pulmonary disease, unspecified; I25.10 Atherosclerotic heart disease of native coronary artery without angina pectoris; F10.21 Alcohol dependence, in remission; I25.5 Ischemic cardiomyopathy; Z87.891 Personal history of nicotine dependence; Z95.810 Presence of automatic (implantable) cardiac defibrillator; Z79.82 Long term (current) use of aspirin; Z95.5 Presence of coronary angioplasty implant and graft; Z79.02 Long term (current) use of antithrombotics/antiplatelets; Z79.899 Other long term (current) drug therapy
CPT/HCPCS: 10060; 10061; 36415; 73080; 73200; 80048; 80202; 84550; 85025; 87070; 87077; 87186; 87205; 87640; 97116; 97162; 97166; 97530; 97802; 99218; 99285; J7040; J7050; A4216; G0378; J2405

== ENCOUNTER 2019-12-20 13:54 | Emergency (ER) | payer MEDICAID, SELFPAY ==
[2019-02-17 13:19] VITALS: BMI 29.2
[2019-12-13 17:29] VITALS: BMI 26.9
[2019-12-20 13:55] VITALS: BP 144/89; PULSE 81; RESP 16; TEMP 36.8; O2SAT 96; BMI 27.1
[2019-12-20 14:22] LABS: Bacteria 0 SEEN /hpf (None Seen); Mucous, Urine 0 SEEN /hpf (<or=2+); Red Blood Cells-Urine 0 SEEN /hpf (0-5); Squamous Epithelial Cells - UA 0 SEEN /hpf (0-5); White Blood Cells 0 SEEN /hpf (0-5)
[2019-12-20 14:24] LABS: Color, Urine Yellow (Yellow); Glucose, Dipstick Normal (Normal); Ketone-Dipstick Negative (Negative); Leukocyte Esterase-Dipstick Negative /ul (Negative); Nitrite-Dipstick Negative (Negative); Occult Blood-Urine Negative /ul (Negative); Protein-Dipstick 15 mg/dl (Negative); Specific Gravity, Urine 1.015 (1.002-1.030); Urine Bilirubin Dipstick Negative (Negative); Urine Clarity Sl. Cloudy (Clear); Urine Urobilinogen Normal (Normal)
[2019-12-20 14:45] LABS: Absolute Lymphocyte Count 1.42 X10^3/uL (0.83-4.51); Absolute Neutrophil Count 2.5 X10^3/uL (2.0-7.7); Basophil# 0.01 X10^3/uL; Basophil% 0.2 % (0-1); Eosinophil# 0.08 X10^3/uL; Eosinophils% 1.7 % (0-5); Hematocrit 37.3 % (40-54); Hemoglobin 12.7 g/dL (13.0-16.5); Lymphocyte # 1.42 X10^3/ul (4.0); Lymphocyte % 30.8 % (19-41); Mean Corpuscular Hgb 36.7 pg (27.0-32.0); Mean Corpuscular Volume 107.8 fL (80-94); Mean Platelet Vol. 9.8 fl (6.2-12.0); Monocyte# 0.58 X10^3/uL; Monocyte% 12.6 % (0-10); NRBC Flagged by Analyzer 0 % (0-5); Neutrophil % 54.3 % (47-70); POSITIVE MORPHOLOGY YES; Platelet Count 150 K/mm3 (150-450); RBC Distribution Width CV 14.4 % (11.6-14.6); Red Blood Count 3.46 M/mm3 (4.6-6.2); White Blood Count 4.6 K/mm3 (4.4-11.0)
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
[2019-12-20 14:57] LABS: Anion Gap 7 (5-15); BUN 9 mg/dL (7-18); Calcium,Total 8.4 mg/dL (8.5-10.1); Chloride 97 mmol/L (98-107); EST Glomerular Filtration Rate 90 mL/min (>60); Est Glom Filt Rate - Afr Amer 109 mL/min (>60); Estimated Creatinine Clearance 97.68 ml/min; Glucose 96 mg/dL (74-106); Potassium 4.1 mmol/L (3.5-5.1); Sodium Level 130 mmol/L (136-145)
[2019-12-20 15:14] LABS: Differential Indicated SCAN CRITERIA MET
[2019-12-20 15:15] LABS: Platelet Estimate ADEQUATE (ADEQ); Red Cell Morphology NORM C+C NORMAL (NORM C&C)
--- NOTE | 2019-12-20 15:30 | CM.ED ---
SOCIAL WORK INFORMANT: DR. LARSON REASON FOR REFERRAL: RESOURCES MET WITH PATIENT IN ROOM. INTRODUCED ROLE AND REASON FOR REFERRAL. PATIENT REPORTS WAS JUST ADMITTED ON [facility] LAST WEEK AND SPOKE WITH JACK. PATIENT STATES JACK ASSISTED WITH GETTING HOME HEALTH THERAPY. PATIENT REPORTS THERAPY HAS NOT YET STARTED. PATIENT INQUIRING ABOUT ADDITIONAL SERVICES IN THE HOME TO ASSIST WITH CLEANING. REVIEWED OPTIONS FOR PRIVATE DUTY SERVICES. ALL QUESTIONS ANSWERED. REVIEWED MEDICAL RECORD. [facility]. CALL TO [facility] TO DISCUSS PATIENT'S NEEDS. PER WORKER, WAITING ON ORDERS FROM DR. ALMEIDA AND WILL SEND THERAPY OUT ONCE ORDER RECEIVED. WORKER STATES INFORMED PATIENT THROUGH PHONE CALL ON 12/18/19. UPDATED PATIENT ON THE ABOVE. PATIENT STATED OH YEAH, I FORGOT ABOUT THAT. PATIENT DENIES ANY FURTHER NEEDS AT THIS TIME. UPDATED DR. LARSON ON THE ABOVE. PLAN: HOME, RESOURCES PROVIDED. PATIENT HAS ALREADY BEEN REFERRED TO [facility] FOR THERAPY DURING HOSPITALIZATION LAST WEEK. Jan LAWSON, HARDWARE SALES ASSISTANT, BALL WORKER
[2019-12-20 15:52] VITALS: BP 128/77; PULSE 84; RESP 16; O2SAT 95
== END 2019-12-20 15:52 | disposition home or self-care (01) ==
PROVIDERS: Emergency Provider Emergency Medicine; PCP Family Medicine
DX: R53.1 Weakness (principal); R05 Cough; R53.81 Other malaise; R06.09 Other forms of dyspnea; R11.0 Nausea; M79.10 Myalgia, unspecified site; F32.9 Major depressive disorder, single episode, unspecified; I10 Essential (primary) hypertension; I25.5 Ischemic cardiomyopathy; I49.40 Unspecified premature depolarization; I47.2 Ventricular tachycardia; J44.9 Chronic obstructive pulmonary disease, unspecified; Z87.440 Personal history of urinary (tract) infections; Z95.810 Presence of automatic (implantable) cardiac defibrillator; Z79.82 Long term (current) use of aspirin; Z79.02 Long term (current) use of antithrombotics/antiplatelets; Z79.899 Other long term (current) drug therapy; F17.200 Nicotine dependence, unspecified, uncomplicated
CPT/HCPCS: 80048; 81001; 85025; 99285; A4216

== ENCOUNTER 2020-03-29 16:23 | Emergency (ER) | payer MEDICAID, SELFPAY ==
[2019-02-17 13:19] VITALS: BMI 29.2
[2020-03-29 16:25] VITALS: BP 118/82; PULSE 115; RESP 18; TEMP 37.1; O2SAT 97; BMI 24.3
--- NOTE | 2020-03-29 17:14 | EKG12_ITS ---
Test Reason : PALPS Blood Pressure : / mmHG Vent. Rate : 108 BPM Atrial Rate : 108 BPM P-R Int : 150 ms QRS Dur : 100 ms QT Int : 350 ms P-R-T Axes : 058 044 112 degrees QTc Int : 469 ms Sinus tachycardia Cannot rule out Inferior infarct , age undetermined Abnormal ECG Confirmed by KRANTHI MARTIN ([id number]), news assignment editor YING PAULINO ([id number]) on 04/03/2020 11:31:34 AM Referred By: DAMON Confirmed By:KRANTHI MARTIN
--- NOTE | 2020-03-29 17:16 | ED.VISSUMM ---
- ER Visit Summary Date of Service: 03/29/20 Chief Complaint: Defibrillator fired History of Present Illness: The patient is a 65 M who presents after his defibrillator fired approximately 8-9 times today. Patient states that it seemed to go off after he went up some stairs. Patient states he was told that his heart was beating fast which is why it fired. Patient denies any feelings of his heart racing. Patient denies any chest pain or shortness of breath. Patient denies any nausea or vomiting. Currently, the patient denies any symptoms. Physical Examination: Vital signs are stable For mild tachycardia of 115. Patient is afebrile. Patient is in no acute distress. Oral mucosa is pink and moist. Neck is supple. Trachea is midline. There is no JVD noted. Heart was regular rate and rhythm. Lungs are clear and equal bilaterally. Abdomen is soft. Bowel sounds are normal. There is no tenderness. There is no rebound or guarding noted. Skin is warm dry. Cranial nerves II through XII are intact. There are no focal motor or sensory deficits noted. Extremities are intact. There is no calf tenderness or edema. Test Results: EKG showed sinus tachycardia with a rate of 108. There are no acute ST or T wave changes. CBC was within normal limits. Comprehensive metabolic profile showed a slightly elevated creatinine of 1.48. Troponin was slightly elevated at 0.056. Chest x-ray was obtained. There is no acute cardiopulmonary process. Emergency Department Course and Treatment: Patient was given IV fluids here. Patient was maintained on soda dispenser. Patient had no further episodes of defibrillation while here in the emergency department. Case was discussed with Dr. Nielson. He recommended increasing the patient's metoprolol to 50 mg twice daily from 50 mg daily. He recommended continuing the amiodarone. He will follow-up with the patient in the office tomorrow. Patient understood and was agreeable with the plan. All questions were answered. Disposition: Discharge home Impression: Defibrillator firing This note was generated with [employer] dictation software. It may contain incorrect words, spelling, and punctuation that were not noted in review of the chart prior to signing ED Disposition - Plan for ED Patient: Disposition: Home or Assisted Living Diagnosis: Defibrillator discharge Instructions: ED Palpitations Referrals: Shay Del Rosario III, MD [Primary Care Provider] - Luis Nielson MD [STAFF PHYSICIAN] - Keep Jyotsna appointment Additional Instructions: Increase your metoprolol to 50 mg twice daily.
--- NOTE | 2020-03-29 17:18 | RAD_ITS ---
STUDY: X-RAY CHEST REASON FOR EXAM: Male, 65 years old. PALPITATIONS, ARRYTHMIA TECHNIQUE: 2 frontal images of the chest were obtained. COMPARISON: November 20, 2019 FINDINGS: There is a cardiac pacer device in place. There is no new focal consolidation. Normal size heart. Normal mediastinum and mady. Normal visualized pulmonary arteries. Normal visualized aortic arch and descending thoracic aorta. Normal visualized thoracic spine. There are stable healed right rib fractures. There are healed left lateral rib fractures as well. There is no demonstrated abnormality of the visualized soft tissue structures of the upper abdomen. RAD/Chest 1 View (Portable) IMPRESSION: No acute cardiopulmonary process. Electronically Signed: Aileen Hernandez MD at 17:33 EDT Tel , Service support ,
[2020-03-29 17:22] LABS: Absolute Lymphocyte Count 1.11 X10^3/uL (0.83-4.51); Absolute Neutrophil Count 6.7 X10^3/uL (2.0-7.7); Basophil# 0.03 X10^3/uL; Basophil% 0.4 % (0-1); Eosinophil# 0.01 X10^3/uL; Eosinophils% 0.1 % (0-5); Hematocrit 41.8 % (40-54); Hemoglobin 14.3 g/dL (13.0-16.5); Lymphocyte # 1.11 X10^3/ul (4.0); Lymphocyte % 13.1 % (19-41); Mean Corp Hgb Conc 34.2 g/dL (32-36); Mean Corpuscular Hgb 37.7 pg (27.0-32.0); Mean Corpuscular Volume 110.3 fL (80-94); Mean Platelet Vol. 10.5 fl (6.2-12.0); Monocyte% 7.1 % (0-10); NRBC Flagged by Analyzer 0 % (0-5); Neutrophil % 78.9 % (47-70); POSITIVE MORPHOLOGY YES; Platelet Count 288 K/mm3 (150-450); RBC Distribution Width CV 17.6 % (11.6-14.6); RBC Distribution Width SD 72.5 fl (35.1-43.9); Red Blood Count 3.79 M/mm3 (4.6-6.2); White Blood Count 8.5 K/mm3 (4.4-11.0)
[2020-03-29 17:44] LABS: ALB/GLOB Ratio 0.8 RATIO (0.9-2.4); AST(SGOT) 101 U/L (15-37); Alanine Aminotransfer ALT/SGPT 47 U/L (16-61); Albumin, Serum 3.3 g/dL (3.2-5.0); Alkaline Phosphatase 134 U/L (45-117); Anion Gap 9 (5-15); BUN 18 mg/dL (7-18); BUN/Creat Ratio 12.2 RATIO (10-20); Calcium,Total 9.2 mg/dL (8.5-10.1); Chloride 107 mmol/L (98-107); Creatinine, Serum 1.48 mg/dL (0.70-1.30); EST Glomerular Filtration Rate 51 mL/min (>60); Est Glom Filt Rate - Afr Amer 62 mL/min (>60); Estimated Creatinine Clearance 58.63 ml/min; Glucose 173 mg/dL (74-106); Potassium 4.2 mmol/L (3.5-5.1); Protein, Total 7.3 g/dL (6.4-8.2); Sodium Level 141 mmol/L (136-145)
[2020-03-29 17:57] LABS: Differential Indicated SCAN CRITERIA MET
[2020-03-29 17:59] LABS: Anisocytosis 1+; Macrocytosis 1+; Platelet Estimate ADEQUATE (ADEQ); Red Cell Morphology N CHROM NORMAL (NORM C&C)
[2020-03-29 18:43] VITALS: BP 118/85; PULSE 90; RESP 17; O2SAT 97
[2020-03-29 19:01] VITALS: RESP 18
[2020-03-29] MEDS: 0.9% Normal Saline 1,000 ML 1000 ML IV (19:27)
[2020-03-29] MEDS: Metoprolol(XL)Succ 50 MG Tablet PO (19:40)
[2020-03-29 20:34] VITALS: BP 126/93
--- NOTE | 2020-03-29 20:35 | ED.RN ---
discussed med change with pt
== END 2020-03-29 20:35 | disposition home or self-care (01) ==
PROVIDERS: Emergency Provider Emergency Medicine; PCP Family Medicine
DX: Z45.02 Encounter for adjustment and management of automatic implantable cardiac defibrillator (principal); J34.89 Other specified disorders of nose and nasal sinuses; Z72.0 Tobacco use
CPT/HCPCS: 71045; 80053; 84484; 85025; 93005; 96360; 99285; A4216

== ENCOUNTER 2020-08-26 16:31 | Emergency (ER) | payer MEDICAID, SELFPAY ==
[2019-02-17 13:19] VITALS: BMI 29.2
[2020-03-30 14:20] VITALS: BMI 24.0
[2020-08-26 16:33] VITALS: BP 131/85; PULSE 85; RESP 16; TEMP 36.9; O2SAT 96; BMI 25.8
--- NOTE | 2020-08-26 16:36 | EKG12_ITS ---
Test Reason : MENTAL HEALTH Blood Pressure : / mmHG Vent. Rate : 078 BPM Atrial Rate : 078 BPM P-R Int : 186 ms QRS Dur : 110 ms QT Int : 454 ms P-R-T Axes : 056 052 078 degrees QTc Int : 517 ms Normal sinus rhythm Abnormal ECG Confirmed by GISSELLE JEFFERSON, VALERIE ([id number]), avid editor SUSAN BLACKMAN ([id number]) on 08/29/2020 10:23:48 AM Referred By: MARLENE Confirmed By:VALERIE PITTS MD
--- NOTE | 2020-08-26 16:36 | CT_ITS ---
STUDY: CT BRAIN WITHOUT CONTRAST REASON FOR EXAM: Male, 65 years old. CONFUSION RADIATION DOSAGE (If Supplied By Facility): CTDIvol = ( 44.99 ) mGy, DLP = ( 846.73 ) mGycm TECHNIQUE: Transaxial CT imaging of the brain was performed without administration of intravenous contrast material. Individualized dose optimization techniques were used for this CT. COMPARISON: Prior head CT exam of 11/20/2019 FINDINGS: Normal soft tissue structures. Normal calvarium. There is mild cerebral atrophy with widening of the extra-axial spaces and ventricular dilatation. Normal white matter tracts of the cerebral hemispheres. Normal basal ganglia and thalami. Normal brainstem. Normal cerebellum. There is no intracranial hemorrhage. There are no findings of an acute ischemic infarction. Normal visualized paranasal sinuses. CT/Brain/Head without Contrast IMPRESSION: No acute intracranial findings. Negative for hemorrhage, hematoma or extra-axial fluid collection. Negative for demarcation of a new nonhemorrhagic infarct zone. Mild involutional changes appropriate for age. Electronically Signed: Akiko Strauss MD at 17:11 EDT , Service support ,
[2020-08-26 16:37] VITALS: BP 131/85; PULSE 85; RESP 16; TEMP 36.9; O2SAT 96
--- NOTE | 2020-08-26 16:41 | ED.VIS.GEN ---
History of Present Illness Chief Complaint: Mental Health Informant: Patient Onset: Yesterday Context: Gradual Onset Timing: Intermittent Current Severity: Moderate Maximum Severity: Moderate Narrative: The patient is a 65-year-old gentleman with medical history significant for history of alcohol abuse, coronary vascular disease status post stents and defibrillator, the presents to the emergency department with hallucinations and confusion. The patient states that it started yesterday. He states he woke in his normal state of health. He states he was feeling generally weak. He states every time he would try to sleep, he was having visual hallucinations. He states he did have something similar when he had a urinary tract infection in the past. He denies fevers or chills. He states he is had a chronic cough for years and it is unchanged. He denies weight loss or night sweats. He denies being suicidal or homicidal. Prior similar symptoms: Yes Recent Illness/Hospitalization: No Past Medical History - Allergies and Home Meds Allergies/Adverse Reactions: Allergies Iodine and Iodide Containing Produc Allergy (Severe, Verified 03/30/20 14:22) Rash ezetimibe [From Zetia] Adverse Reaction (Severe, Verified 03/30/20 14:22) Myalgias Yrpvfya-Zrh-Qxr Reductase Inhibitor Adverse Reaction (Severe, Verified 03/30/20 14:22) Elevated Liver Enzymes Primary Care Physician: Shay Del Rosario III, MD [Primary Care Provider] - Prior records reviewed: Yes Past Medical History: - - CVD, alcohol history Surgical History: angioplasty, pacemaker implantation, - - right knee arthroscopy Review of Systems General: Denies: Chills, Fever, Sweats Eyes: Denies: Visual changes - bilaterally, Diplopia ENT: Denies: Rhinorrhea, Sore throat Cardiovascular: Denies: Chest pain, Palpitations Respiratory: Denies: Dyspnea, Cough, Dyspnea on exertion Gastrointestinal: Denies: Abdominal pain, Nausea, Vomiting, Diarrhea, Melena, Hematochezia Genitourinary: Denies: Dysuria, Hematuria, Frequency Musculoskeletal: Denies: Back pain, Extremity Pain Skin: Denies: Rash, Wounds Neurological: Denies: Headache, Weakness, Numbness Physical Exam Vital Signs/Narrative: Vital Signs Temp Pulse Resp BP Pulse Ox 08/26/20 16:37 98.5 F 85 16 131/85 H 96 08/26/20 16:33 98.5 F 85 16 131/85 H 96 Inital Vital Signs reviewed: Yes General: Well nourished, Well developed, No Acute Distress Head: Normocephalic, Atraumatic Eyes: Perrl, EOMI ENT: Moist mucous membranes, No rhinorrhea Neck: Supple, Nontender Cardiovascular: Regular rate, Regular rhythm, No murmurs Respiratory: No distress, CTA bilaterally, Chest nontender Abdomen: Soft, Nontender, Nondistended, Normal bowel sounds Back: Nontender, Normal Inspection Extremities: Nontender, No edema Skin: Normal color, No rash Neurological: Alert, Oriented x3, Cranial nerves II-XII grossly intact, Normal Strength, Normal Sensation Psychological: Normal affect, Normal Mood Diagnostic/Tx/Re-eval Clinical Impression(s) from Imaging Studies Brain CT 08/26/20 16:36 IMPRESSION: No acute intracranial findings. Negative for hemorrhage, hematoma or extra-axial fluid collection. Negative for demarcation of a new nonhemorrhagic infarct zone. Mild involutional changes appropriate for age. Electronically Signed: Akiko Strauss MD at 17:11 EDT , Service support , Abnormal Lab Results 08/26/20 08/26/20 08/26/20 16:45 16:45 16:45 WBC 9.2 RBC 4.85 Hgb 17.9 H Hct 51.3 MCV 105.8 H MCH 36.9 H MCHC 34.9 RDW Std Deviation 59.0 H RDW Coeff of [place]oli 15.3 H Plt Count 162 MPV 9.2 Immature Gran % (Auto) 0.500 Neut % (Auto) 70.9 H Lymph % (Auto) 18.8 L [place] % (Auto) 9.4 Eos % (Auto) 0.2 Baso % (Auto) 0.2 Absolute Neuts (auto) 6.5 Absolute Lymphs (auto) 1.72 Nucleated RBC % 0 Sodium 135 L Potassium 3.3 L Chloride 101 Carbon Dioxide 22.0 Anion Gap 12 BUN 14 Creatinine 0.94 Estim Creat Clear Calc 89.72 Est GFR (MDRD) Af Amer 104 Est GFR (MDRD) Non-Af 86 BUN/Creatinine Ratio 14.9 Glucose 101 Lactic Acid 3.6 H* Calcium 9.1 Total Bilirubin 1.20 H AST 96 H ALT 57 Alkaline Phosphatase 130 H Total Protein 7.6 Albumin 3.7 Globulin 3.9 Albumin/Globulin Ratio 0.9 Urine Color Urine Clarity Urine pH Ur Specific [place] Urine Protein Urine Glucose (UA) Urine Ketones Urine Occult Blood Urine Nitrite Urine Bilirubin Urine Urobilinogen Ur Leukocyte Esterase Urine RBC Urine WBC Ur Squamous Epith Cells Urine Bacteria Urine Mucus Ethyl Alcohol 08/26/20 08/26/20 16:45 18:05 WBC RBC Hgb Hct MCV MCH MCHC RDW Std Deviation RDW Coeff of Yoli Plt Count MPV Immature Gran % (Auto) Neut % (Auto) Lymph % (Auto) [place] % (Auto) Eos % (Auto) Baso % (Auto) Absolute Neuts (auto) Absolute Lymphs (auto) Nucleated RBC % Sodium Potassium Chloride Carbon Dioxide Anion Gap BUN Creatinine Estim Creat Clear Calc Est GFR (MDRD) Af Amer Est GFR (MDRD) Non-Af BUN/Creatinine Ratio Glucose Lactic Acid Calcium Total Bilirubin AST ALT Alkaline Phosphatase Total Protein Albumin Globulin Albumin/Globulin Ratio Urine Color [place] Urine Clarity Clear Urine pH 6.0 Ur Specific [place] 1.015 Urine Protein 30 H Urine Glucose (UA) Normal Urine Ketones 15 H Urine Occult Blood 10 H Urine Nitrite Negative Urine Bilirubin 1 H Urine Urobilinogen 4 H Ur Leukocyte Esterase 25 H Urine RBC 0 SEEN Urine WBC 0-5 SEEN Ur Squamous Epith Cells 0 SEEN Urine Bacteria RARE Urine Mucus 2+ Ethyl Alcohol 85.0 - Medical Decision Making The patient presents with transient hallucinations that have since resolved. He is awake and alert. He answers questions appropriately. He has a nonfocal neurologic examination. Noncontrast head CT was unremarkable. Screening labs were obtained. His lactic acid is mildly elevated, but he is not tachycardic, tachypneic, or has had any evidence of infection. I do suspect this is more likely secondary to his alcohol use. Patient was reevaluated. We did obtain urine. There is no evidence of infection. I discussed options with the patient including observation given his reported hallucinations which have resolved. He states that he feels improved and he would rather attempt outpatient therapy. I feel that this is reasonable. He is not suicidal or homicidal. He has no evidence of infectious process. He will be discharged home. Impression 1. Confusion-resolved ED Disposition - Plan for ED Patient: Instructions: ED Confusion Referrals: Shay Del Rosario III, MD [Primary Care Provider] -
[2020-08-26 16:58] LABS: Absolute Lymphocyte Count 1.72 X10^3/uL (0.83-4.51); Absolute Neutrophil Count 6.5 X10^3/uL (2.0-7.7); Basophil# 0.02 X10^3/uL; Basophil% 0.2 % (0-1); Eosinophil# 0.02 X10^3/uL; Eosinophils% 0.2 % (0-5); Hematocrit 51.3 % (40-54); Hemoglobin 17.9 g/dL (13.0-16.5); Lymphocyte # 1.72 X10^3/ul (4.0); Lymphocyte % 18.8 % (19-41); Mean Corp Hgb Conc 34.9 g/dL (32-36); Mean Corpuscular Hgb 36.9 pg (27.0-32.0); Mean Corpuscular Volume 105.8 fL (80-94); Mean Platelet Vol. 9.2 fl (6.2-12.0); Monocyte# 0.86 X10^3/uL; Monocyte% 9.4 % (0-10); NRBC Flagged by Analyzer 0 % (0-5); Neutrophil % 70.9 % (47-70); Platelet Count 162 K/mm3 (150-450); RBC Distribution Width CV 15.3 % (11.6-14.6); Red Blood Count 4.85 M/mm3 (4.6-6.2); White Blood Count 9.2 K/mm3 (4.4-11.0)
[2020-08-26 17:27] LABS: ALB/GLOB Ratio 0.9 RATIO (0.9-2.4); AST(SGOT) 96 U/L (15-37); Alanine Aminotransfer ALT/SGPT 57 U/L (16-61); Albumin, Serum 3.7 g/dL (3.2-5.0); Alkaline Phosphatase 130 U/L (45-117); Anion Gap 12 (5-15); BUN 14 mg/dL (7-18); BUN/Creat Ratio 14.9 RATIO (10-20); Calcium,Total 9.1 mg/dL (8.5-10.1); Chloride 101 mmol/L (98-107); Creatinine, Serum 0.94 mg/dL (0.70-1.30); EST Glomerular Filtration Rate 86 mL/min (>60); Est Glom Filt Rate - Afr Amer 104 mL/min (>60); Estimated Creatinine Clearance 89.72 ml/min; Globulin 3.9 g/dL (2.2-4.2); Glucose 101 mg/dL (74-106); Potassium 3.3 mmol/L (3.5-5.1); Protein, Total 7.6 g/dL (6.4-8.2); Sodium Level 135 mmol/L (136-145)
[2020-08-26 17:32] LABS: Lactic Acid 3.6 mmol/L (0.4-1.9)
[2020-08-26] MEDS: 0.9% Normal Saline 1,000 ML 999 ML IV (17:37)
[2020-08-26 17:45] VITALS: BP 140/84; PULSE 74; RESP 16; O2SAT 98
[2020-08-26 18:09] VITALS: BP 140/84; PULSE 72; RESP 16; O2SAT 96
[2020-08-26 18:12] LABS: Red Blood Cells-Urine 0 SEEN /hpf (0-5); Squamous Epithelial Cells - UA 0 SEEN /hpf (0-5)
[2020-08-26 18:14] LABS: Color, Urine Amber (Yellow); Glucose, Dipstick Normal (Normal); Ketone-Dipstick 15 mg/dl (Negative); Leukocyte Esterase-Dipstick 25 /ul (Negative); Nitrite-Dipstick Negative (Negative); Occult Blood-Urine 10 /ul (Negative); Protein-Dipstick 30 mg/dl (Negative); Specific Gravity, Urine 1.015 (1.002-1.030); Urine Clarity Clear (Clear); Urine Urobilinogen 4 mg/dl (Normal)
[2020-08-26 18:16] LABS: Urine Bilirubin Dipstick 1 mg/dL (Negative)
[2020-08-26 18:21] LABS: Mucous, Urine 2+ /hpf (<or=2+)
[2020-08-26 18:22] LABS: Bacteria RARE /hpf (None Seen); White Blood Cells 0-5 SEEN /hpf (0-5)
[2020-08-26 18:52] VITALS: BP 156/97; PULSE 75; RESP 17; O2SAT 98
[2020-08-26 20:55] LABS: Reflex Lactate? Y
[2020-08-26 22:00] LABS: Lactic Acid 1.5 mmol/L (0.4-1.9)
== END 2020-08-26 19:06 | disposition home or self-care (01) ==
PROVIDERS: Emergency Provider Emergency Medicine; PCP Family Medicine
DX: R41.0 Disorientation, unspecified (principal); R44.1 Visual hallucinations; F10.10 Alcohol abuse, uncomplicated; I25.10 Atherosclerotic heart disease of native coronary artery without angina pectoris; Z87.440 Personal history of urinary (tract) infections; Z95.810 Presence of automatic (implantable) cardiac defibrillator; Z79.82 Long term (current) use of aspirin; Z79.899 Other long term (current) drug therapy
CPT/HCPCS: 70450; 80053; 80320; 81001; 83605; 85025; 87086; 93005; 99285; J7030; A4216; G0480

== ENCOUNTER 2020-08-26 20:45 | Observation (INO) | payer MEDICAID, SELFPAY ==
[2019-02-17 13:19] VITALS: BMI 29.2
[2020-08-26 16:33] VITALS: BMI 25.8
[2020-08-26 20:47] VITALS: BP 158/96; PULSE 80; RESP 15; TEMP 36.4; O2SAT 96; BMI 25.4
[2020-08-26 21:48] LABS: Amphetamine Urine VISTA NEGATIVE (<1000 ng/mL); Barbiturate Urine VISTA NEGATIVE (< 200 ng/mL); Benzodiazepine Urine VISTA NEGATIVE (< 200 ng/mL); Cocaine Urine VISTA NEGATIVE (< 300 ng/mL); Ecstacy Urine VISTA NEGATIVE (< 500 ng/mL); Methadone Urine VISTA NEGATIVE (< 300 ng/mL); PCP Urine VISTA NEGATIVE (< 25 ng/mL); THC Urine VISTA NEGATIVE (< 50 ng/mL); Vista UDS pH Range 6
--- NOTE | 2020-08-26 22:10 | HP.PCM_ITS ---
Problem List (1) Encephalopathy acute Status: Acute (2) Dyspnea Status: Chronic (3) Stage 1 mild COPD by GOLD classification Status: Chronic Comment: FEV1 87% of predicted (4) History of left heart catheterization (LHC) Status: Chronic Comment: Will obtain old film from [place] from 2 years ago to see if LAD lesion has worsened. Apparently pt underwent FFR of this portion of LAD and was found to be 0.81 so no intervention was performed. He has had no AICD discharges since his cath at [place]. Intervention of this lesion is at moderate risk of the stent covering over DIAG, as well as eccentric calcium in proximal LAD sequeing into mid LAD lesion. I believe we could place the stent at the ostium of the mid LAD with minimal encroachment into DIAG, but pt has no anginal symptoms or change in his exercise capacity. I will obtain old films from [place] to compare mid LAD stenosis; if it appears to be worse, then will return for elective PCI of LAD with double wires. 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 transplanted heart: prairie band heart Qualified Code(s): I25.10 - Atherosclerotic heart disease of [place] coronary artery without angina pectoris Comment: 12/28/1999 distal RCA was thrombectomized and stent placed; 04/01/2000 PTCA of distal RCA and ostium of the PDA for in-stent stenosis. [facility] 11/2005. (7) Ischemic cardiomyopathy Status: Chronic (8) Ventricular tachycardia Status: Chronic Comment: 10/30/17 tsfer to [facility] with [place] storm (9) Premature heartbeats Status: Chronic (10) Presence of automatic (implantable) cardiac defibrillator Status: Chronic Comment: ICD Implant: 11/2005; ICD generator replacement 08/23/2010 (11) History of coronary artery stent placement Status: Chronic Comment: 12/28/1999 distal RCA was thrombectomized and stent placed; 04/01/2000 PTCA of distal RCA and ostium of the PDA for in-stent stenosis. Successful PTCA/DEMETRIO to Mid LAD with a 3.0 x 28 Promus Synergy, post dilated in middle stent with a 3.0 x 12 NC Balloon; 75%-->0%, no dissection. Successful PTCA/DEMETRIO Mid LAD across bifurcation of DIAG#1 and telescoped into mid LAD stent with a 4.0 x 28 Promus Synergy, post dilated in the proximal LAD with a 4.0 x 8 and a 4.5 x 8 NC Balloon; 855-->0%, no dissection. 02/17/2019 Successful PCI with PTCA to the ostial DIAG #1 through struts of LAD stent with a 2.5 x 8 Ballloon; 70%-->30%, no dissection. NO additional stenting needed or attempted. (12) Benign hypertension Status: Chronic (13) Tobacco user Status: Chronic (14) History of alcoholism Status: Chronic History of Present Illness Date of Admission: 08/26/20 Chief Complaint: visual hallucination The patient is a 65 year old M with a significant history of CAD s/p 3 stents; and alcoholism who presented to the emergency department with visual alonzo lucination that started the day before presentation. His visual hallucinations occurs when he closes his eyes. He reported he has not been unable to sleep for about 2 days. He reported that typically he drinks about 3 glasses of wine about 4 times in a week. Last time he drank was on the same day of presentation where he drank 3 glasses of wine while watching a football game. He denies being an alcoholic. This is patient's second visit to emergency department on the same day. On his initial visits his alcohol level was 85. On his initial visits reportedly a decision was made to admit patient but because he did not have anybody to take of his dog he went home. He returned after he has had someone to take of his dog and requested admission. Past Medical History Past Medical History (Chronic Problems): Chronic Problems (Last Reviewed 08/26/20 @ 23:[address] Luciano Murphy MD) Dyspnea (Chronic) Stage 1 mild COPD by GOLD classification (Chronic) FEV1 87% of predicted History of left heart catheterization (LHC) (Chronic 01/21/19) Will obtain old film from [place] from 2 years ago to see if LAD lesion has worsened. Apparently pt underwent FFR of this portion of LAD and was found to be 0.81 so no intervention was performed. He has had no AICD discharges since his cath at [place]. Intervention of this lesion is at moderate risk of the stent covering over DIAG, as well as eccentric calcium in proximal LAD sequeing into mid LAD lesion. I believe we could place the stent at the ostium of the mid LAD with minimal encroachment into DIAG, but pt has no anginal symptoms or change in his exercise capacity. I will obtain old films from [place] to compare mid LAD stenosis; if it appears to be worse, then will return for elective PCI of LAD with double wires. Hyperlipidemia (Chronic) Atherosclerotic heart disease of prairie band coronary artery without angina pectoris (Chronic) 12/28/1999 distal RCA was thrombectomized and stent placed; 04/01/2000 PTCA of distal RCA and ostium of the PDA for in-stent stenosis. [facility] 11/2005. Ischemic cardiomyopathy (Chronic) Ventricular tachycardia (Chronic) 10/30/17 tsfer to [facility] with [place] storm Premature heartbeats (Chronic) Presence of automatic (implantable) cardiac defibrillator (Chronic 10/31/17) ICD Implant: 11/2005; ICD generator replacement 08/23/2010 History of coronary artery stent placement (Chronic 02/17/19) 12/28/1999 distal RCA was thrombectomized and stent placed; 04/01/2000 PTCA of distal RCA and ostium of the PDA for in-stent stenosis. Successful PTCA/DEMETRIO to Mid LAD with a 3.0 x 28 Promus Synergy, post dilated in middle stent with a 3.0 x 12 NC Balloon; 75%-->0%, no dissection. Successful PTCA/DEMETRIO Mid LAD across bifurcation of DIAG#1 and telescoped into mid LAD stent with a 4.0 x 28 Promus Synergy, post dilated in the proximal LAD with a 4.0 x 8 and a 4.5 x 8 NC Balloon; 855-->0%, no dissection. 02/17/2019 Successful PCI with PTCA to the ostial DIAG #1 through struts of LAD stent with a 2.5 x 8 Ballloon; 70%-->30%, no dissection. NO additional stenting needed or attempted. Benign hypertension (Chronic) Tobacco user (Chronic) History of alcoholism (Chronic) Medical History: Medical History (Last Reviewed 08/27/20 @ 00:[address] 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 [facility] 11/2005. Ischemic cardiomyopathy (Chronic) I25.5 Ventricular tachycardia (Chronic) I47.2 10/30/17 tsfer to [facility] with [place] storm Premature heartbeats (Chronic) I49.40 Benign hypertension (Chronic) I10 Tobacco user (Chronic) Z72.0 History of alcoholism (Chronic) F10.21 History of echocardiogram Onset Date: 04/03/17 Z92.89 EF 40-45% History of stress test Onset Date: 02/16/10 Z92.89 Allergies Iodine and Iodide Containing Produc Allergy (Severe, Verified 08/26/20 20:45) Rash ezetimibe [From Zetia] Adverse Reaction (Severe, Verified 08/26/20 20:45) Myalgias Jlwtaya-Uyz-Gxo Reductase Inhibitor Adverse Reaction (Severe, Verified 08/26/20 20:45) Elevated Liver Enzymes Home Medications: Ambulatory Orders Medication Instructions Recorded nitroglycerin 0.4 mg sublingual 0.4 mg SUBLINGUAL Q5M PRN #25 tab 05/08/18 tablet Multivit-Min/FA/Lycopen/Lutein 1 ea PO QODAY 12/13/19 [Centrum Silver Men Tablet] aspirin 81 mg tablet,delayed 81 mg PO DAILY #90 tab 01/04/20 release metoprolol succinate 100 mg 100 mg PO DAILY #90 tab 03/30/20 tablet,extended release 24 hr amiodarone 200 mg tablet 200 mg PO BID #180 tab 06/15/20 Surgical History: Surgical History (Last Reviewed 08/27/20 @ 00:[address] Luciano Murphy MD) History of left heart catheterization (LHC) (Chronic) Onset Date: 01/21/19 Z98.890 Will obtain old film from [place] from 2 years ago to see if LAD lesion has worsened. Apparently pt underwent FFR of this portion of LAD and was found to be 0.81 so no intervention was performed. He has had no AICD discharges since his cath at [place]. Intervention of this lesion is at moderate risk of the stent covering over DIAG, as well as eccentric calcium in proximal LAD sequeing into mid LAD lesion. I believe we could place the stent at the ostium of the mid LAD with minimal encroachment into DIAG, but pt has no anginal symptoms or change in his exercise capacity. I will obtain old films from [place] to compare mid LAD stenosis; if it appears to be worse, then will return for elective PCI of LAD with double wires. Presence of automatic (implantable) cardiac defibrillator (Chronic) Onset Date: 10/31/17 Z95.810 ICD Implant: 11/2005; ICD generator replacement 08/23/2010 History of coronary artery stent placement (Chronic) Onset Date: 02/17/19 Z95.5 12/28/1999 distal RCA was thrombectomized and stent placed; 04/01/2000 PTCA of distal RCA and ostium of the PDA for in-stent stenosis. Successful PTCA/DEMETRIO to Mid LAD with a 3.0 x 28 Promus Synergy, post dilated in middle stent with a 3.0 x 12 NC Balloon; 75%-->0%, no dissection. Successful PTCA/DEMETRIO Mid LAD across bifurcation of DIAG#1 and telescoped into mid LAD stent with a 4.0 x 28 Promus Synergy, post dilated in the proximal LAD with a 4.0 x 8 and a 4.5 x 8 NC Balloon; 855-->0%, no dissection. 02/17/2019 Successful PCI with PTCA to the ostial DIAG #1 through struts of LAD stent with a 2.5 x 8 Ballloon; 70%-->30%, no dissection. NO additional stenting needed or attempted. Hx of knee surgery Z98.890 Surgical History: angioplasty, pacemaker implantation, - - right knee arthroscopy Psychiatric History: No pertinent psych hx Smoking Status: Current every day smoker Tobacco Use: Cigarettes - *Family History Maternal Family History: Family History (Last Reviewed 08/27/20 @ 00:[address] Luciano Murphy MD) Grandmother Myocardial infarction Grandfather Myocardial infarction Review of Systems Constitutional: Denies: Chills, Fever, Weight Change HEENT: Denies: Head Aches, Sinus Congestion, Sinus Drainage Cardiovascular: Denies: Chest Pain, Palpitations Respiratory: Denies: Cough, Shortness of breath at rest, Sputum production Gastrointestinal: Denies: Abdominal Pain, Nausea, Vomiting Genitourinary: Denies: Dysuria Musculoskeletal: Denies: Joint Pain, Joint Tenderness Skin: Denies: Rash, Wounds Neurological: Denies: Numbness, Tingling, Focal weakness Psychiatric: Denies: Anxiety, Depression, Homicidal Ideations, Suicidal Ideations Hematologic/ Lymphatic: Denies: Easy Bruising, Easy Bleeding VTE Information - Inpt Only VTE Present on Admission: No VTE Mechan Device Prophylaxis: None VTE Pharm Prophylaxis ordered?: Yes Patient Problems: Active and Suspected Problems (Last Reviewed 08/26/20 @ 23:[address] Luciano Murphy MD) Encephalopathy acute (Acute) - Physical Exam Vitals/I&O's: Vital Signs Temp Pulse Resp BP Pulse Ox 97.6 F L 80 15 158/96 H 96 08/26/20 20:47 08/26/20 20:47 08/26/20 20:47 08/26/20 20:47 08/26/20 20:47 Oxygen Delivery Method Room Air Weight: 90.1 kg Body Mass Index (BMI) 25.4 General: Alert, Oriented x3, Cooperative HEENT: Atraumatic, PERRLA, EOMI, Normocephalic Neck: Supple, No JVD, Negative Carotid Bruits Lungs: Clear to auscultation, Normal air movement Cardiovascular: Regular rate, Regular Rhythm, Normal S1, Normal S2, No murmurs Abdomen: Bowel Sounds Present, Soft, Non Tender Extremities: No edema, Capillary Refill Less than 3 Seconds Skin: No rashes, No breakdown Musculoskeletal: No Tenderness to Palpation of Joints or Extremities Neurological: Cranial nerves II-XII grossly intact Psych/Mental Status: Normal Affect, Appropriate Laboratory Results 08/26/20 21:18: Urine Opiates Screen NEGATIVE, Urine Methadone Screen NEGATIVE, Ur Barbiturates Screen NEGATIVE, Ur Phencyclidine Scrn NEGATIVE, Ur Amphetamines Screen NEGATIVE, U Methamphetamin-MDMA NEGATIVE, U Benzodiazepines Scrn NEGATIVE, Urine Cocaine Screen NEGATIVE, U Cannabinoids Screen NEGATIVE, Ur Drug Screen Comment 08/26/20 21:25: Ethyl Alcohol 6.0 08/26/20 21:25: Ammonia 21.0 Assessment/Plan All Active Problems (Last Reviewed 08/26/20 @ 23:[address] Luciano Murphy MD) Encephalopathy acute (Acute) The patient is a 65 year old M with a significant history of CAD s/p 3 stents; and alcoholism who presented to the emergency department with visual hallucination and insomnia. Acute encephalopathy Etiology is unclear. Unlikely alcoholism or metabolic We will check vitamin B12 and TSH CT head did not show any acute disease. MRI brain ordered. If MRI is unavailable on the weekend and patient is stable consider discharging home for pain to follow-up with PCP. Urinalysis on face presentation was unremarkable. Urine culture is pending. Deferential diagnosis include Adrien Bonnet syndrome. Consider ophthalmology referral on discharge. Alcoholism Review of old records show that on 06/13/2013 his alcohol level was 328. On first presentation to the emergency department his alcohol level was 85. On second presentation his alcohol level was 6. Patient does not think that he is an alcoholic. Will put on CIWA protocol with as needed Ativan. Folic acid and thiamine ordered. Counseled. Hypokalemia Receive replacement at first presentation to ED ON 08/26/2020 . Trend CMP Tobacco abuse Decline nicotine patch. Accepted as needed nicotine gum. Counselled Lactic acidosis Review of labs of first emergency department labs showed lactic acid of 3.6 Resolved per follow-up lab. Elevated liver biochemistry Review of Emergency department labs showed total bili of 1.2 ; AST of 96; alkaline phosphate of 130. Chronic. Likely secondary to alcoholic liver disease Trend CMP. DVT Prophylaxis Subcutaneous Lovenox. OBSV E&M: 56152 Initial observation care L2
--- NOTE | 2020-08-26 22:19 | ED.DCSUM_ITS ---
- ER Visit Summary Date of Service: 08/26/20 Chief Complaint: Hallucinations History of Present Illness: The patient is a 65 M presenting with visual hallucinations. Patient was seen in the ED earlier today for same complaint. At that time he was offered admission and declined because he needed to take ca re of his dog. He states that he found someone who could care for his dog and came back because he would like to be admitted for these symptoms. He states when he closes his eyes he sees women and animals being killed. He states he is unable to sleep because he has frequent visual hallucinations. He has mild shortness of breath and anxiety. He denies other complaints. He has a history of alcohol abuse. He states he last drank heavily Friday and drank a little bit today. No history of withdrawal seizures. Physical Examination: Vitals are stable. Patient is afebrile. Alert no acute distress. HEENT exam is unremarkable. Neck is supple. Lungs are clear and equal bilaterally. Heart is regular rate and rhythm. Abdomen is soft nontender nondistended. Extremities are unremarkable. Skin is warm and dry. No focal neurologic deficit. Remainder of exam is unremarkable. Emergency Department Course and Treatment: CT head from earlier today showed no acute process. Alcohol is negative. Tox is negative. Discussed with hospitalist for admission. Disposition: Admission Impression: Visual hallucinations This note was generated with [employer] dictation software. It may contain incorrect words, spelling, and punctuation that were not noted in review of the chart prior to signing ED Disposition - Plan for ED Patient: Referrals: Shay Del Rosario III, MD [Primary Care Provider] -
[2020-08-26 23:12] VITALS: BP 158/96; PULSE 80; RESP 16; TEMP 36.4; O2SAT 96
[2020-08-26 23:13] VITALS: BMI 24.6
[2020-08-26 23:20] VITALS: BP 148/79; PULSE 75; RESP 18; TEMP 36.4; O2SAT 98; BMI 24.7
[2020-08-27] VITALS (7 sets, daily range): BP systolic 125–138; BP diastolic 65–88; PULSE 73–82; RESP 16–18; TEMP 36.4–36.9; O2SAT 94–96
[2020-08-27] MEDS: Thiamine Hydrochloride 100 MG Tablet PO ×3 (00:11→18:07)
[2020-08-27] MEDS: Zolpidem Tartrate 5 MG Tablet PO ×2 (01:13→21:57)
[2020-08-27 06:06] LABS: Absolute Lymphocyte Count 1.95 X10^3/uL (0.83-4.51); Basophil# 0.02 X10^3/uL; Basophil% 0.2 % (0-1); Eosinophil# 0.04 X10^3/uL; Eosinophils% 0.5 % (0-5); Hematocrit 43.5 % (40-54); Hemoglobin 15.1 g/dL (13.0-16.5); Lymphocyte # 1.95 X10^3/ul (4.0); Lymphocyte % 24.3 % (19-41); Mean Corp Hgb Conc 34.7 g/dL (32-36); Mean Corpuscular Hgb 36.7 pg (27.0-32.0); Mean Corpuscular Volume 105.6 fL (80-94); Mean Platelet Vol. 9.9 fl (6.2-12.0); Monocyte% 12.5 % (0-10); NRBC Flagged by Analyzer 0 % (0-5); Neutrophil # 4.99 X10^3/uL (2.7-7.7); Neutrophil % 62.1 % (47-70); Platelet Count 134 K/mm3 (150-450); RBC Distribution Width CV 15.2 % (11.6-14.6); RBC Distribution Width SD 58.4 fl (35.1-43.9); Red Blood Count 4.12 M/mm3 (4.6-6.2)
[2020-08-27 06:43] LABS: ALB/GLOB Ratio 0.9 RATIO (0.9-2.4); AST(SGOT) 74 U/L (15-37); Alanine Aminotransfer ALT/SGPT 44 U/L (16-61); Albumin, Serum 2.8 g/dL (3.2-5.0); Alkaline Phosphatase 93 U/L (45-117); Anion Gap 7 (5-15); BUN 16 mg/dL (7-18); BUN/Creat Ratio 20.9 RATIO (10-20); Calcium,Total 8.1 mg/dL (8.5-10.1); Chloride 105 mmol/L (98-107); Creatinine, Serum 0.77 mg/dL (0.70-1.30); EST Glomerular Filtration Rate 108 mL/min (>60); Est Glom Filt Rate - Afr Amer 131 mL/min (>60); Estimated Creatinine Clearance 112.68 ml/min; Glucose 84 mg/dL (74-106); Magnesium 1.8 mg/dL (1.6-2.6); Potassium 3.7 mmol/L (3.5-5.1); Protein, Total 5.8 g/dL (6.4-8.2); Sodium Level 136 mmol/L (136-145); Thyroid Stim Hormone (TSH) 1.11 uIU/mL (0.358-3.74)
[2020-08-27] MEDS: Folic Acid 1 MG Tablet PO (07:43)
[2020-08-27] MEDS: Metoprolol(XL)Succ 100 MG Tablet PO (07:43)
[2020-08-27] MEDS: Multivitamins,Ther W-Minerals Tablet 1 TABLET PO (07:43)
[2020-08-27] MEDS: Aspirin E.C. 81 MG Tablet PO (07:44)
[2020-08-27] MEDS: Amiodarone 200 MG Tablet PO ×2 (07:44→18:07)
[2020-08-27] MEDS: Enoxaparin 40 MG/0.4 ML Syringe SC (07:44)
--- NOTE | 2020-08-27 11:29 | PCM.PN.HOSP ---
Patient Problems: Active and Suspected Problems (Last Reviewed 08/27/20 @ 00:[address] Luciano Murphy MD) Encephalopathy acute (Acute) Subjective: States he still having hallucinations though he is alert and oriented Vitals/I&O's: Vital Signs Temp Pulse Resp BP Pulse Ox 98.2 F 77 16 138/88 H 96 08/27/20 07:52 08/27/20 07:52 08/27/20 07:52 08/27/20 07:52 08/27/20 08:33 Oxygen Delivery Method Room Air Weight: 192 lb 0.362 oz Body Mass Index (BMI) 24.6 General: Alert, Oriented x3, Cooperative, No apparent distress HEENT: Atraumatic, PERRLA, EOMI, Normocephalic Oral: Moist Mucosa Neck: Supple, No JVD Lungs: Clear to auscultation, Normal air movement, No rhonchi, No wheeze, No rales, Diminished Cardiovascular: Regular rate, Regular Rhythm, Normal S1, Normal S2, No murmurs Abdomen: Soft, Non Tender, Non-Distended, No Hepato-splenomegaly Extremities: No edema, Capillary Refill Less than 3 Seconds Skin: No rashes, No breakdown Neurological: Neuro grossly intact, Sensory exam intact to light touch and pain, - - Hand tremor bilaterally Psych/Mental Status: Normal Affect, Appropriate Laboratory Results 08/26/20 21:18: Urine Opiates Screen NEGATIVE, Urine Methadone Screen NEGATIVE, Ur Barbiturates Screen NEGATIVE, Ur Phencyclidine Scrn NEGATIVE, Ur Amphetamines Screen NEGATIVE, U Methamphetamin-MDMA NEGATIVE, U Benzodiazepines Scrn NEGATIVE, Urine Cocaine Screen NEGATIVE, U Cannabinoids Screen NEGATIVE, Ur Drug Screen Comment 08/26/20 21:25: Ethyl Alcohol 6.0 08/26/20 21:25: Ammonia 21.0 08/26/20 21:25: Vitamin B12 Pending 08/27/20 04:35: WBC 8.0, RBC 4.12 L, Hgb 15.1, Hct 43.5, MCV 105.6 H, MCH 36.7 H, MCHC 34.7, RDW Std Deviation 58.4 H, RDW Coeff of Yoli 15.2 H, Plt Count 134 L, MPV 9.9, Immature Gran % (Auto) 0.400, Neut % (Auto) 62.1, Lymph % (Auto) 24.3, [place] % (Auto) 12.5 H, Eos % (Auto) 0.5, Baso % (Auto) 0.2, Absolute Neuts (auto) 5.0, Absolute Lymphs (auto) 1.95, Nucleated RBC % 0 08/27/20 04:35: Sodium 136, Potassium 3.7, Chloride 105, Carbon Dioxide 24.0, Anion Gap 7, BUN 16, Creatinine 0.77, Estim Creat Clear Calc 112.68, Est GFR (MDRD) Af Amer 131, Est GFR (MDRD) Non-Af 108, BUN/Creatinine Ratio 20.9 H, Glucose 84, Calcium 8.1 L, Magnesium 1.8, Total Bilirubin 1.10 H, AST 74 H, ALT 44, Alkaline Phosphatase 93, Total Protein 5.8 L, Albumin 2.8 L, Globulin 3.0, Albumin/Globulin Ratio 0.9, TSH 1.11 Current Medications Amiodarone HCl (Amiodarone 200 Mg Tablet) 200 mg PO BID [facility] Last Admin: 08/27/20 07:44 Dose: 200 mg Documented by: Aspirin (Aspirin E.C. 81 Mg Tablet) 81 mg PO DAILY [facility] Last Admin: 08/27/20 07:44 Dose: 81 mg Documented by: Enoxaparin Sodium (Enoxaparin 40 Mg/0.4 Ml Syringe) 40 mg SC DAILY [facility] Last Admin: 08/27/20 07:44 Dose: 40 mg Documented by: Folic Acid (Folic Acid 1 Mg Tablet) 1 mg PO DAILY@0800 [facility] Stop: 08/29/20 08:01 Last Admin: 08/27/20 07:43 Dose: 1 mg Documented by: Sodium Chloride () 250 mls @ 15 mls/hr IV .[id number] PRN PRN Reason: Saline Flush Sodium Chloride () 250 mls @ 15 mls/hr IV .[id number] PRN PRN Reason: Additional IVPB Infusion Lorazepam (Lorazepam 1 Mg Tablet) 2 mg PO Q2H PRN PRN; Protocol PRN Reason: CIWA score > 8 but <15 Lorazepam (Lorazepam 1 Mg Tablet) 2 mg PO UD PRN; Protocol PRN Reason: CIWA score >/=15. Lorazepam (Lorazepam 2 Mg/Ml Syringe) 2 mg IV Q2H PRN PRN; Protocol PRN Reason: CIWA score > 8 but <15 Lorazepam (Lorazepam 2 Mg/Ml Syringe) 2 mg IV UD PRN; Protocol PRN Reason: CIWA score >/=15. Metoprolol Succinate (Metoprolol(Xl)Succ 100 Mg Tablet) 100 mg PO DAILY [facility] Last Admin: 08/27/20 07:43 Dose: 100 mg Documented by: Multivitamins/Minerals (Multivitamins,Ther W-Minerals Tablet) 1 tablet PO DAILY@0800 [facility] Last Admin: 08/27/20 07:43 Dose: 1 tablet Documented by: Nicotine Polacrilex (Nicotine Polacrilex 2 Mg Gum) 2 mg PO Q2H PRN PRN PRN Reason: nicotine cravings Ondansetron HCl (Ondansetron 4 Mg/2 Ml Vial) 4 mg IV Q8H PRN PRN PRN Reason: NAUSEA/VOMITING Sodium Chloride (0.9% Saline Lock 10 Ml Syringe) 10 - 40 ml IV UD PRN PRN Reason: SALINE FLUSH Thiamine HCl (Thiamine Hydrochloride 100 Mg Tablet) 100 mg PO BIDCM [facility] Stop: 08/29/20 08:01 Last Admin: 08/27/20 07:43 Dose: 100 mg Documented by: Zolpidem Tartrate (Zolpidem Tartrate 5 Mg Tablet) 5 mg PO QHS PRN PRN PRN Reason: INSOMNIA Last Admin: 08/27/20 01:13 Dose: 5 mg Documented by: STROKE Vital Signs/Narrative: Vital Signs Temp Pulse Resp BP Pulse Ox 08/27/20 08:33 96 08/27/20 07:52 98.2 F 77 16 138/88 H 96 08/27/20 07:43 77 Medical Necessity - Tobacco Use Smoking Status: Current every day smoker Tobacco Use: Cigarettes Assessment/Plan All Active Problems (Last Reviewed 08/27/20 @ 00:[address] Luciano Murphy MD) Encephalopathy acute (Acute) 1. Acute encephalopathy/alcoholism -He states that he is nonalcoholic however he also agrees that he got significantly impaired and intoxicated on Friday and then states that he did not have another drink since Friday however when he first presented to the ER on 08/26/2020 his blood alcohol level was 85. -TSH was normal, vitamin B12 is pending -MRI is pending -There is a little bit of suspicious timing to all of this as he is supposed to be a probate court on Friday for drug charges -Ammonia was unremarkable as was other lab work. 2. CAD status post stent/ventricular tachycardia status post ICD/ischemic cardiomyopathy/HTN/HLD -We will continue with amiodarone as well as aspirin, metoprolol -Blood pressure is stable -He is allergic to statins and apparently Zetia 3. COPD -None current exacerbation -Not on any inhalers -Follows with pulmonology DVT: Lovenox OBSV E&M: [id number] Subsequent observation care L2
--- NOTE | 2020-08-27 14:12 | NS ---
Pt would benefit from MOW or alternative meal delivery service as pt reports no longer has car and inability to purchase food d/t financial status. Margoth Florez RDN, LD
[2020-08-27] MEDS: Ondansetron 4 MG/2 ML Vial IV (14:23)
[2020-08-28] VITALS (8 sets, daily range): BP systolic 106–142; BP diastolic 63–84; PULSE 63–81; RESP 16–18; TEMP 36.1–37.2; O2SAT 92–97
[2020-08-28 06:24] LABS: Absolute Lymphocyte Count 1.78 X10^3/uL (0.83-4.51); Absolute Neutrophil Count 3.7 X10^3/uL (2.0-7.7); Basophil# 0.02 X10^3/uL; Basophil% 0.3 % (0-1); Eosinophil# 0.09 X10^3/uL; Eosinophils% 1.4 % (0-5); Hematocrit 43.5 % (40-54); Hemoglobin 14.9 g/dL (13.0-16.5); Lymphocyte # 1.78 X10^3/ul (4.0); Lymphocyte % 27.3 % (19-41); Mean Corp Hgb Conc 34.3 g/dL (32-36); Mean Corpuscular Hgb 36.4 pg (27.0-32.0); Mean Corpuscular Volume 106.4 fL (80-94); Monocyte# 0.88 X10^3/uL; Monocyte% 13.5 % (0-10); NRBC Flagged by Analyzer 0 % (0-5); Neutrophil % 56.9 % (47-70); Platelet Count 124 K/mm3 (150-450); RBC Distribution Width CV 15.1 % (11.6-14.6); RBC Distribution Width SD 58.6 fl (35.1-43.9); Red Blood Count 4.09 M/mm3 (4.6-6.2); White Blood Count 6.5 K/mm3 (4.4-11.0)
[2020-08-28 06:38] LABS: ALB/GLOB Ratio 0.9 RATIO (0.9-2.4); AST(SGOT) 52 U/L (15-37); Alanine Aminotransfer ALT/SGPT 39 U/L (16-61); Albumin, Serum 2.7 g/dL (3.2-5.0); Alkaline Phosphatase 88 U/L (45-117); Anion Gap 9 (5-15); BUN 13 mg/dL (7-18); BUN/Creat Ratio 17.9 RATIO (10-20); Calcium,Total 8.2 mg/dL (8.5-10.1); Chloride 108 mmol/L (98-107); Creatinine, Serum 0.73 mg/dL (0.70-1.30); EST Glomerular Filtration Rate 116 mL/min (>60); Est Glom Filt Rate - Afr Amer 140 mL/min (>60); Estimated Creatinine Clearance 118.86 ml/min; Globulin 3.1 g/dL (2.2-4.2); Glucose 87 mg/dL (74-106); Potassium 3.6 mmol/L (3.5-5.1); Protein, Total 5.8 g/dL (6.4-8.2); Sodium Level 140 mmol/L (136-145)
[2020-08-28] MEDS: Aspirin E.C. 81 MG Tablet PO (08:50)
[2020-08-28] MEDS: Metoprolol(XL)Succ 100 MG Tablet PO (08:51)
[2020-08-28] MEDS: Multivitamins,Ther W-Minerals Tablet 1 TABLET PO (08:51)
[2020-08-28] MEDS: Folic Acid 1 MG Tablet PO (08:51)
[2020-08-28] MEDS: Amiodarone 200 MG Tablet PO ×2 (08:51→20:58)
[2020-08-28] MEDS: Thiamine Hydrochloride 100 MG Tablet PO ×2 (08:51→17:52)
[2020-08-28] MEDS: Enoxaparin 40 MG/0.4 ML Syringe SC (08:57)
--- NOTE | 2020-08-28 11:30 | MRI_ITS ---
STUDY: MRI BRAIN WITHOUT CONTRAST REASON FOR EXAM: Male, 65 years old. acute encephalopathy, hallucinations,fatigue TECHNIQUE: Standardized multiplanar fat and water weighted pulse sequences were obtained. COMPARISON: CT 08/26/2020 FINDINGS: There is moderate cerebral atrophy with widening of the extra-axial spaces and ventricular dilatation. There are a limited number of small white matter hyperintensities, distributed throughout the deep white matter tracts of the cerebral hemispheres, consistent with mild chronic white matter ischemic changes. There is no evidence for recent intracranial ischemia or other cause of cytotoxic edema on diffusion weighted imaging (DWI). Normal T2* images of the brain without demonstrated susceptibility artifact. There is no demonstrated hemosiderin stain. Normal bilateral basal ganglia. Normal thalami. There is no extra-axial fluid accumulation. Normal flow voids within the major intracranial circulation suggesting patency by spin echo criteria. Normal sella turcica, pituitary gland, infundibular stalk, optic chiasm and hypothalamus. Normal tectal plate and pineal gland. Normal midbrain, ramírez and medulla. Normal cerebellum. Normal basal cisterns. Normal bilateral temporal bones. Normal bilateral internal auditory canals. No demonstrated orbital abnormality, within the constraints of a routine brain study. Normal visualized paranasal sinuses. Normal calvarium and skull base. Normal visualized soft tissue structures. Normal visualized upper cervical spine. MRI/Brain without Contrast IMPRESSION: Involutional changes of the brain, as described above. No acute infarct. Electronically Signed: Nikhil Layne MD at 13:15 EDT Tel , Service support ,
--- NOTE | 2020-08-28 12:00 | CASEMGMT ---
Social Work Note SW reviewed pt's chart. Pt has history of alcoholism and presented to [facility] for visual hallucinations. Dietary had also mentioned possibly MOW for pt. SW spoke with physician, physician agreeable to Crisis consult for possible [facility]. SW attempted to meet with pt. Pt currently off floor. SW placed a call to [facility] and spoke with Jacques Wakefield and provided referral. SW faxed referral. SW will attempt to meet with pt again. Geno Dominguez GROUT MACHINE TENDER, WOOD POLE TREATER
--- NOTE | 2020-08-28 12:32 | NURSING ---
mri completed. Pacemaker RN, Angela, to Mri to put patient's pacer back in regular mode.
[2020-08-28] MEDS: 0.9% Saline Lock 10 ML Syringe IV (14:19)
--- NOTE | 2020-08-28 14:23 | PCM.PN.HOSP ---
Patient Problems: Active and Suspected Problems (Last Reviewed 08/27/20 @ 00:[address] Luciano Murphy MD) Encephalopathy acute (Acute) Subjective: Slept well, but continues to have hallucinations. He describes his hallucinations as violent with occasional nudity Vitals/I&O's: Vital Signs Temp Pulse Resp BP Pulse Ox 97.7 F L 80 16 127/76 H 95 08/28/20 08:50 08/28/20 12:31 08/28/20 12:31 08/28/20 12:31 08/28/20 12:31 Oxygen Delivery Method Room Air Weight: 192 lb 0.362 oz Body Mass Index (BMI) 24.6 Intake and Output for Last 24 Hours 08/26/20 08/27/20 08/28/20 23:59 23:59 23:59 Intake Total 1050 / 1050 600 / 600 Output Total 1100 / 1100 Balance 1050 / 1050 -500 / -500 General: Alert, Oriented x3, Cooperative, No apparent distress HEENT: Atraumatic, PERRLA, EOMI, Normocephalic Oral: Moist Mucosa Neck: Supple, No JVD Lungs: Clear to auscultation, Normal air movement, No rhonchi, No wheeze, No rales, Diminished Cardiovascular: Regular rate, Regular Rhythm, Normal S1, Normal S2, No murmurs Abdomen: Soft, Non Tender, Non-Distended, No Hepato-splenomegaly Extremities: No edema, Capillary Refill Less than 3 Seconds Skin: No rashes, No breakdown Neurological: Neuro grossly intact, Sensory exam intact to light touch and pain, - - Hand tremor bilaterally Psych/Mental Status: Normal Affect, Appropriate Laboratory Results 08/28/20 05:12: WBC 6.5, RBC 4.09 L, Hgb 14.9, Hct 43.5, MCV 106.4 H, MCH 36.4 H, MCHC 34.3, RDW Std Deviation 58.6 H, RDW Coeff of Yoli 15.1 H, Plt Count 124 L, MPV 10.0, Immature Gran % (Auto) 0.600, Neut % (Auto) 56.9, Lymph % (Auto) 27.3, [place] % (Auto) 13.5 H, Eos % (Auto) 1.4, Baso % (Auto) 0.3, Absolute Neuts (auto) 3.7, Absolute Lymphs (auto) 1.78, Nucleated RBC % 0 08/28/20 05:12: Sodium 140, Potassium 3.6, Chloride 108 H, Carbon Dioxide 23.0, Anion Gap 9, BUN 13, Creatinine 0.73, Estim Creat Clear Calc 118.86, Est GFR (MDRD) Af Amer 140, Est GFR (MDRD) Non-Af 116, BUN/Creatinine Ratio 17.9, Glucose 87, Calcium 8.2 L, Total Bilirubin 0.90, AST 52 H, ALT 39, Alkaline Phosphatase 88, Total Protein 5.8 L, Albumin 2.7 L, Globulin 3.1, Albumin/Globulin Ratio 0.9 Current Medications Amiodarone HCl (Amiodarone 200 Mg Tablet) 200 mg PO BID [facility] Last Admin: 08/28/20 08:51 Dose: 200 mg Documented by: Aspirin (Aspirin E.C. 81 Mg Tablet) 81 mg PO DAILY [facility] Last Admin: 08/28/20 08:50 Dose: 81 mg Documented by: Enoxaparin Sodium (Enoxaparin 40 Mg/0.4 Ml Syringe) 40 mg SC DAILY [facility] Last Admin: 08/28/20 08:57 Dose: 40 mg Documented by: Folic Acid (Folic Acid 1 Mg Tablet) 1 mg PO DAILY@0800 [facility] Stop: 08/29/20 08:01 Last Admin: 08/28/20 08:51 Dose: 1 mg Documented by: Sodium Chloride () 250 mls @ 15 mls/hr IV .[id number] PRN PRN Reason: Saline Flush Sodium Chloride () 250 mls @ 15 mls/hr IV .[id number] PRN PRN Reason: Additional IVPB Infusion Lorazepam (Lorazepam 1 Mg Tablet) 2 mg PO Q2H PRN PRN; Protocol PRN Reason: CIWA score > 8 but <15 Lorazepam (Lorazepam 1 Mg Tablet) 2 mg PO UD PRN; Protocol PRN Reason: CIWA score >/=15. Lorazepam (Lorazepam 2 Mg/Ml Syringe) 2 mg IV Q2H PRN PRN; Protocol PRN Reason: CIWA score > 8 but <15 Lorazepam (Lorazepam 2 Mg/Ml Syringe) 2 mg IV UD PRN; Protocol PRN Reason: CIWA score >/=15. Metoprolol Succinate (Metoprolol(Xl)Succ 100 Mg Tablet) 100 mg PO DAILY [facility] Last Admin: 08/28/20 08:51 Dose: 100 mg Documented by: Multivitamins/Minerals (Multivitamins,Ther W-Minerals Tablet) 1 tablet PO DAILY@0800 [facility] Last Admin: 08/28/20 08:51 Dose: 1 tablet Documented by: Nicotine Polacrilex (Nicotine Polacrilex 2 Mg Gum) 2 mg PO Q2H PRN PRN PRN Reason: nicotine cravings Ondansetron HCl (Ondansetron 4 Mg/2 Ml Vial) 4 mg IV Q8H PRN PRN PRN Reason: NAUSEA/VOMITING Last Admin: 08/27/20 14:23 Dose: 4 mg Documented by: Sodium Chloride (0.9% Saline Lock 10 Ml Syringe) 10 - 40 ml IV UD PRN PRN Reason: SALINE FLUSH Thiamine HCl (Thiamine Hydrochloride 100 Mg Tablet) 100 mg PO BIDCM [facility] Stop: 08/29/20 08:01 Last Admin: 08/28/20 08:51 Dose: 100 mg Documented by: Zolpidem Tartrate (Zolpidem Tartrate 5 Mg Tablet) 5 mg PO QHS PRN PRN PRN Reason: INSOMNIA Last Admin: 08/27/20 21:57 Dose: 5 mg Documented by: STROKE Vital Signs/Narrative: Vital Signs Pulse Resp BP Pulse Ox 08/28/20 12:31 80 16 127/76 H 95 08/28/20 12:05 81 16 124/72 H 94 Medical Necessity - Tobacco Use Smoking Status: Current every day smoker Tobacco Use: Cigarettes Assessment/Plan All Active Problems (Last Reviewed 08/27/20 @ 00:[address] Luciano Murphy MD) Encephalopathy acute (Acute) 1. Acute encephalopathy/alcoholism -He states that he is nonalcoholic however he also agrees that he got significantly impaired and intoxicated on Friday and then states that he did not have another drink since Friday however when he first presented to the ER on 08/26/2020 his blood alcohol level was 85. -TSH was normal, vitamin B12 is pending -MRI is unremarkable -There is a little bit of suspicious timing to all of this as he is supposed to be a probate court on Friday for drug charges -We will have him evaluated by [facility] and depending what they recommend we will further discuss dispo planning with him. -Ammonia was unremarkable as was other lab work. 2. CAD status post stent/ventricular tachycardia status post ICD/ischemic cardiomyopathy/HTN/HLD -We will continue with amiodarone as well as aspirin, metoprolol -Blood pressure is stable -He is allergic to statins and apparently Zetia 3. COPD -None current exacerbation -Not on any inhalers -Follows with pulmonology DVT: Lovenox Inpatient E&M: 70259 Subs Hosp L2
--- NOTE | 2020-08-28 15:01 | CASEMGMT ---
Social Work Note ROLANDO met with pt. ROLANDO introduced self and role at [facility]. Pt is alert and orientated x3. Pt states that he lives alone in a two story bi level home. Pt states from the front door there are 6 steps to enter and from the garage there are 12 steps to enter. PCP is Dr. Del Rosario and Pharmacy is [facility]. Pt states that he has a walker at home and a walker with four wheels. Pt states that he's been having increased difficulty getting around his home and difficulty taking care of himself. Pt states he used to have HHC coming in the home but his insurance only approved 8 therapy visits for pt so he no longer has help in the home. Pt states that his December 24 and his mother December 15. ROLANDO offered support to pt. Pt states that his 's brother filed Probate against pt and pt only has his social security ($1268) a month to live off of. Pt states that before his passed, his gave permission to get a car but since the Probate has been filed pt is not able to use the car. Pt states that he has to use a taxi for transportation. Pt states that his dad is still living but he has dementia. Pt states that his brother Donnell assists with taking care of their father and Donnell hired [employer] to also assist with taking care of his father. Pt states his father has 24/7 care between Eileen and Donnell. Pt states that he has an alright relationship with his brother Donnell. Pt states he doesn't really have a relationship with his sister Aleisha. Pt states he has a good relationship with his business attorney (for the Probate Court) and they've been friends for a while. Pt identifies his friend/business attorney has good support for him. Pt states that he has been to [facility] in the past. Substance Abuse Hx: Pt states he started smoking cigarettes again. Initially pt denied any substance abuse. SW specifically asked pt about ETOH use. Per pt's chart, pt drinks three glasses of wine about 4x a week. Pt states that he drinks every now and again. Pt states that during the week he will drink a glass or two of wine in a six inch wine glass. Pt states on the weekend though during football games he states he will drink 5-6 glasses of wine. Pt denied wanting any substance abuse resources. Mental Health Hx: Pt presents to [facility] with visual hallucinations. Pt denied any auditory hallucinations. Pt states he's never had visual hallucinations before and he only gets them when he closes his eyes. Pt states last night was the first night he's had a decent night sleep. Pt states his hallucinations are mixture of things. Pt states his hallucinations could be people, items, animals, vegetation, forest, etc. Pt states also some history of anxiety, denied history of depression. Pt denied any history of suicidal thoughts/plans/ideations. Pt denied any current suicidal thoughts/plans/ideations. Pt states he was asked before he had any thoughts of hurting anyway and at first pt stated well my 's brother for causing all this stress on me and putting me through all this. SW explored this with pt. Pt states I am just kidding though, I would never actually hurt him. Pt states I just need to vent sometimes to people about it. Pt states that he is able to vent to his friend/business attorney any time he feels the need to. Pt denied any homicidal thoughts/plans/ideations. SW spoke with pt regarding help in the home. Pt agreeable to Meals on Wheels and [facility]erral. Pt also mentioned possibly some HHC again for PT/OT. SW asked pt if he felt like he needed to return to [facility] or different SNF for therapy and pt denied. Pt states I will be returning home at discharge. Pt denied additional needs or concerns at this time. SW also provided pt with additional community resources including Food Pantries, [employer], [facility] People, [facility], and MOW information. ROLANDO made MOW and [facility] referral. ROLANDO updated FRANSISCA Caldwell that pt mentioned HHC at discharge. Plan: Home Geno Dominguez GUN FITTER, OFFICE COMMUNICATION PROFESSOR
[2020-08-28 17:27] LABS: Vitamin B12 485 pg/mL (211-911)
[2020-08-28] MEDS: Zolpidem Tartrate 5 MG Tablet PO (20:58)
[2020-08-29 03:00] VITALS: BP 98/58; PULSE 64; RESP 16; TEMP 36.9; O2SAT 98
[2020-08-29] MEDS: Acetaminophen 325 MG Tablet 650 MG PO (05:54)
[2020-08-29 08:29] VITALS: PULSE 71
[2020-08-29] MEDS: Multivitamins,Ther W-Minerals Tablet 1 TABLET PO (08:29)
[2020-08-29] MEDS: Folic Acid 1 MG Tablet PO (08:29)
[2020-08-29] MEDS: Amiodarone 200 MG Tablet PO (08:29)
[2020-08-29] MEDS: Thiamine Hydrochloride 100 MG Tablet PO (08:29)
[2020-08-29] MEDS: Metoprolol(XL)Succ 100 MG Tablet PO (08:29)
[2020-08-29] MEDS: Aspirin E.C. 81 MG Tablet PO (08:30)
[2020-08-29 08:35] VITALS: BP 123/66; PULSE 73; RESP 16; TEMP 36.8; O2SAT 99
--- NOTE | 2020-08-29 10:04 | CASEMGMT ---
Addendum entered by Oralia Herrera 08/29/20 11:19: [facility] eval faxed to [facility] at this time, as well as [facility] order, which has been electronically signed by Dr Au. Addendum entered by Oralia Herrera 08/29/20 11:02: Lita @ [facility] states they are able to accept pt. Pt made aware and provided with 's contact information and he was made aware they would call him to set up start of care appt. Pt inquired about Meals on Wheels and an aide to help him in the home. He was made a referrals were made by SW yesterday and that they will contact him. He is aware SW will be available through [facility] to assist with any further needs. Pt states he has a taxi service he uses for transportation and he will call them once he is ready for discharge. He is aware of [facility] Van transportation but wish to use this taxi service instead. Addendum entered by Oralia Herrera 08/29/20 10:18: Call placed to Orquidea @ [facility] and referral made. She will review referral packet and contact this RN CM. Awaiting review/acceptance. Original Note: RN CM NOTE: To room to discuss discharge planning. Pt states he does want [facility] for therapy. He states he does not feel he needs/wants a nurse through [facility]. Given list of local [facility] agencies. Pt has no preference. Referral packet faxed to [facility]/ at this time for PT/OT and SW. Rodney MANN RN CM
--- NOTE | 2020-08-29 10:33 | DCINST_ITS ---
- Discharge Diagnoses Current Active Problems: Current Active and Chronic Problems (Last Reviewed 08/27/20 @ 00:[address] Luciano Murphy MD) Encephalopathy acute (Acute) Dyspnea (Chronic) Stage 1 mild COPD by GOLD classification (Chronic) FEV1 87% of predicted History of left heart catheterization (LHC) (Chronic 01/21/19) Will obtain old film from [place] from 2 years ago to see if LAD lesion has worsened. Apparently pt underwent FFR of this portion of LAD and was found to be 0.81 so no intervention was performed. He has had no AICD discharges since his cath at [place]. Intervention of this lesion is at moderate risk of the stent covering over DIAG, as well as eccentric calcium in proximal LAD sequeing into mid LAD lesion. I believe we could place the stent at the ostium of the mid LAD with minimal encroachment into DIAG, but pt has no anginal symptoms or change in his exercise capacity. I will obtain old films from [place] to compare mid LAD stenosis; if it appears to be worse, then will return for elective PCI of LAD with double wires. Hyperlipidemia (Chronic) Atherosclerotic heart disease of [place] coronary artery without angina pectoris (Chronic) 12/28/1999 distal RCA was thrombectomized and stent placed; 04/01/2000 PTCA of distal RCA and ostium of the PDA for in-stent stenosis. [facility] 11/2005. Ischemic cardiomyopathy (Chronic) Ventricular tachycardia (Chronic) 10/30/17 tsfer to [facility] with [place] storm Premature heartbeats (Chronic) Presence of automatic (implantable) cardiac defibrillator (Chronic 10/31/17) ICD Implant: 11/2005; ICD generator replacement 08/23/2010 History of coronary artery stent placement (Chronic 02/17/19) 12/28/1999 distal RCA was thrombectomized and stent placed; 04/01/2000 PTCA of distal RCA and ostium of the PDA for in-stent stenosis. Successful PTCA/DEMETRIO to Mid LAD with a 3.0 x 28 Promus Synergy, post dilated in middle stent with a 3.0 x 12 NC Balloon; 75%-->0%, no dissection. Successful PTCA/DEMETRIO Mid LAD across bifurcation of DIAG#1 and telescoped into mid LAD stent with a 4.0 x 28 Promus Synergy, post dilated in the proximal LAD with a 4.0 x 8 and a 4.5 x 8 NC Balloon; 855-->0%, no dissection. 02/17/2019 Successful PCI with PTCA to the ostial DIAG #1 through struts of LAD stent with a 2.5 x 8 Ballloon; 70%-->30%, no dissection. NO additional stenting needed or attempted. Benign hypertension (Chronic) Tobacco user (Chronic) History of alcoholism (Chronic) You will use the following diet at home:: Cardiac Your food should be the consistency of: Regular Your liquids should be the consistency of: Regular/Thin Discharge Activity: Return to Normal Activity Call your doctor if you observe: Fever of 101 or Higher, Shortness of breath, Dizziness, Fainting spells, Swelling in the ankles, Chest pain, Increased palpitations (irregular heartbeat) Allergies/Adverse Reactions: Allergies Iodine and Iodide Containing Produc Allergy (Severe, Verified 08/26/20 20:45) Rash ezetimibe [From Zetia] Adverse Reaction (Severe, Verified 08/26/20 20:45) Myalgias Xltlxjt-Ymt-Uhr Reductase Inhibitor Adverse Reaction (Severe, Verified 08/26/20 20:45) Elevated Liver Enzymes Medications to take at Discharge nitroglycerin 0.4 mg sublingual tablet 0.4 mg SUBLINGUAL Q5M PRN #25 tab 05/08/18 Multivit-Min/FA/Lycopen/Lutein [Centrum Silver Men Tablet] 1 ea PO QODAY 12/13/19 aspirin 81 mg tablet,delayed release 81 mg PO DAILY #90 tab 01/04/20 metoprolol succinate 100 mg tablet,extended release 24 hr 100 mg PO DAILY #90 tab 03/30/20 amiodarone 200 mg tablet 200 mg PO BID #180 tab 06/15/20 Primary Care Physician: Shay Del Rosario III, MD [Primary Care Provider] - Please follow up with your Primary Care Physician in: 3-5 days Test Results: Test results from this visit will be discussed in further detail at your follow- up appointment, if applicable.
[2020-08-29 11:45] VITALS: BP 137/85; PULSE 67; RESP 18; TEMP 36.5; O2SAT 98
--- NOTE | 2020-08-29 14:00 | DS.PCM_ITS ---
Discharge Date and Diagnosis - Problem List Patient Problems: Active and Suspected Problems (Last Reviewed 08/27/20 @ 00:[address] Luciano Murphy MD) Encephalopathy acute (Acute) Date of Admission: 08/26/20 Date of Discharge: 08/29/20 - Primary Discharge Diagnosis Acute Problems: Active Problems (Last Reviewed 08/27/20 @ 00:[address] Luciano Murphy MD) Encephalopathy acute (Acute) - Secondary Discharge Diagnosis Chronic Problems: Chronic Problems (Last Reviewed 08/27/20 @ 00:[address] Luciano Murphy MD) Dyspnea (Chronic) Stage 1 mild COPD by GOLD classification (Chronic) FEV1 87% of predicted History of left heart catheterization (LHC) (Chronic 01/21/19) Will obtain old film from [place] from 2 years ago to see if LAD lesion has worsened. Apparently pt underwent FFR of this portion of LAD and was found to be 0.81 so no intervention was performed. He has had no AICD discharges since his cath at [place]. Intervention of this lesion is at moderate risk of the stent covering over DIAG, as well as eccentric calcium in proximal LAD sequeing into mid LAD lesion. I believe we could place the stent at the ostium of the mid LAD with minimal encroachment into DIAG, but pt has no anginal symptoms or change in his exercise capacity. I will obtain old films from [place] to compare mid LAD stenosis; if it appears to be worse, then will return for elective PCI of LAD with double wires. Hyperlipidemia (Chronic) Atherosclerotic heart disease of [place] coronary artery without angina pectoris (Chronic) 12/28/1999 distal RCA was thrombectomized and stent placed; 04/01/2000 PTCA of distal RCA and ostium of the PDA for in-stent stenosis. [facility] 11/2005. Ischemic cardiomyopathy (Chronic) Ventricular tachycardia (Chronic) 10/30/17 tsfer to [facility] with [place] storm Premature heartbeats (Chronic) Presence of automatic (implantable) cardiac defibrillator (Chronic 10/31/17) ICD Implant: 11/2005; ICD generator replacement 08/23/2010 History of coronary artery stent placement (Chronic 02/17/19) 12/28/1999 distal RCA was thrombectomized and stent placed; 04/01/2000 PTCA of distal RCA and ostium of the PDA for in-stent stenosis. Successful PTCA/DEMETRIO to Mid LAD with a 3.0 x 28 Promus Synergy, post dilated in middle stent with a 3.0 x 12 NC Balloon; 75%-->0%, no dissection. Successful PTCA/DEMETRIO Mid LAD across bifurcation of DIAG#1 and telescoped into mid LAD stent with a 4.0 x 28 Promus Synergy, post dilated in the proximal LAD with a 4.0 x 8 and a 4.5 x 8 NC Balloon; 855-->0%, no dissection. 02/17/2019 Successful PCI with PTCA to the ostial DIAG #1 through struts of LAD stent with a 2.5 x 8 Ballloon; 70%-->30%, no dissection. NO additional stenting needed or attempted. Benign hypertension (Chronic) Tobacco user (Chronic) History of alcoholism (Chronic) Hospital Course and Treatment Imaging Results: Clinical Impression(s) from Imaging Studies Brain MRI 08/28/20 11:30 IMPRESSION: Involutional changes of the brain, as described above. No acute infarct. Electronically Signed: Nikhil Layne MD at 13:15 EDT Tel , Service support , Consults: None Operations: None Procedures: None Summary of Care Provided: Per HPI: The patient is a 65 year old M with a significant history of CAD s/p 3 stents; and alcoholism who presented to the emergency department with visual hallucination that started the day before presentation. His visual hallucinations occurs when he closes his eyes. He reported he has not been unable to sleep for about 2 days. He reported that typically he drinks about 3 glasses of wine about 4 times in a week. Last time he drank was on the same day of presentation where he drank 3 glasses of wine while watching a football game. He denies being an alcoholic. This is patient's second visit to emergency department on the same day. On his initial visits his alcohol level was 85. On his initial visits reportedly a decision was made to admit patient but because he did not have anybody to take of his dog he went home. He returned after he has had someone to take of his dog and requested admission. Hospital Course: 1. Acute encephalopathy/alcoholism -He states that he is nonalcoholic however he also agrees that he got significantly impaired and intoxicated on Friday and then states that he did not have another drink since Friday however when he first presented to the ER on 08/26/2020 his blood alcohol level was 85. -TSH was normal, vitamin B12 is pending -MRI is unremarkable -There is a little bit of suspicious timing to all of this as he is supposed to be a probate court on Friday for drug charges -He was evaluated by [facility] who did not feel like he needed inpatient placement -Ammonia was unremarkable as was other lab work. -On the day of discharge he slept well and denied having any hallucinations. He was okay with discharge today. He expressed understanding of the risks and benefits of going home and would still like to go home today. 2. CAD status post stent/ventricular tachycardia status post ICD/ischemic cardiomyopathy/HTN/HLD -We will continue with amiodarone as well as aspirin, metoprolol -Blood pressure is stable -He is allergic to statins and apparently Zetia 3. COPD -None current exacerbation -Not on any inhalers -Follows with pulmonology Patient Problems: Active and Suspected Problems (Last Reviewed 08/27/20 @ 00:[address] Luciano Murphy MD) Encephalopathy acute (Acute) - Physical Exam Vitals/I&O's: Vital Signs Temp Pulse Resp BP Pulse Ox 97.7 F L 67 18 137/85 H 98 08/29/20 11:45 08/29/20 11:45 08/29/20 11:45 08/29/20 11:45 08/29/20 11:45 Oxygen Delivery Method Room Air Weight: 192 lb 0.362 oz Body Mass Index (BMI) 24.6 Intake and Output for Last 24 Hours 08/27/20 08/28/20 08/29/20 23:59 23:59 23:59 Intake Total 1050 / 1050 1800 / 2800 1240 / 1240 Output Total 1100 / 1100 Balance 1050 / 1050 700 / 1700 1240 / 1240 General: Alert, Oriented x3, Cooperative, No apparent distress HEENT: Atraumatic, PERRLA, EOMI, Normocephalic Oral: Moist Mucosa Neck: Supple, No JVD Lungs: Clear to auscultation, Normal air movement, No rhonchi, No wheeze, No rales, Diminished Cardiovascular: Regular rate, Regular Rhythm, Normal S1, Normal S2, No murmurs Abdomen: Soft, Non Tender, Non-Distended, No Hepato-splenomegaly Extremities: No edema, Capillary Refill Less than 3 Seconds Skin: No rashes, No breakdown Neurological: Neuro grossly intact, Sensory exam intact to light touch and pain, - - Hand tremor bilaterally Psych/Mental Status: Normal Affect, Appropriate Laboratory Results 08/26/20 21:25: Vitamin B12 485 Discharge Activity: Return to Normal Activity Call your doctor if you observe: Fever of 101 or Higher, Shortness of breath, Dizziness, Fainting spells, Swelling in the ankles, Chest pain, Increased palpitations (irregular heartbeat) Home Medications: Medications to take at Discharge nitroglycerin 0.4 mg sublingual tablet 0.4 mg SUBLINGUAL Q5M PRN #25 tab 05/08/18 Multivit-Min/FA/Lycopen/Lutein [Centrum Silver Men Tablet] 1 ea PO QODAY 12/13/19 aspirin 81 mg tablet,delayed release 81 mg PO DAILY #90 tab 01/04/20 metoprolol succinate 100 mg tablet,extended release 24 hr 100 mg PO DAILY #90 tab 03/30/20 amiodarone 200 mg tablet 200 mg PO BID #180 tab 06/15/20 Primary Care Physician: Shay Del Rosario III, MD [Primary Care Provider] - Please follow up with your Primary Care Physician in: 3-5 days Disposition: Home Minutes spent on discharge:: 35 Patient Condition:: Stable Medical Necessity - Tobacco Use Smoking Status: Current every day smoker Tobacco Use: Cigarettes Meaningful Use Info Meaningful Use Diagnoses (Choose all that apply): None applicable OBSV E&M: 60327 Observation care discharge
--- NOTE | 2020-08-29 14:23 | CASEMGMT ---
Social Work Note SW received update that pt had called in asking about [facility]. SW placed a call to pt. SW updated pt that this worker made [facility] referral and that [facility] will be in contact with him to get meals arranged. Pt asked about HHC. SW explained that C will also call pt to arrange a time to complete initial assessment with pt. SW informed pt that C was arranged for PT/OT and SW. SW informed pt that the [facility] SW will also be able to assist pt with further community resources and information. SW also updated pt that a referral was also made to [facility] and they will be following up with pt as well. Pt asked about Counseling services. Pt was provided list of counseling agencies before pt left the hospital. SW informed pt that pt can call any of those agencies to get an assessment completed and informed pt that [facility] was the agency that he had talked to yesterday. Pt asked about [facility] counseling services. SW explained that [facility] does have behavioral health services and that pt would need to call to make an appointment to get an assessment completed. SW provided pt with [facility] Behavior Health Services number. Pt thanked this worker, denied additional needs or concerns. Geno Dominguez CEMENT MASON HELPER, SENIOR ACCOUNTING ASSOCIATE
--- NOTE | 2020-09-04 17:22 | CASEMGMT ---
Received call from patient with concerns regarding [facility] set-up. Pt states he has not heard from them. Explained to patient that they can take a week or more before contacting patient to review enrollment. Phone number provided to patient for him to call and enquire about the status of his referral. Pt states he discussed getting additional help with his PCP this afternoon. Explained that there was an order placed for a SW from the [facility] to evaluate and assist him with further needs. Pt states he has had a visit from the physical therapist who is going to be visiting tomorrow also. Pt states he will ask him about the SW visit. Pt denied any further needs, questions, or concerns. Dom Buckley RN CM
== END 2020-08-29 12:00 | disposition home health service (06) ==
LOC: ED 21:21 → MS3 22:43
PROVIDERS: Admitting Provider Hospitalist; Emergency Provider Emergency Medicine; PCP Family Medicine; Visit Provider Family Medicine
DX: F10.20 Alcohol dependence, uncomplicated (principal); R44.1 Visual hallucinations; J44.9 Chronic obstructive pulmonary disease, unspecified; G93.40 Encephalopathy, unspecified; E78.5 Hyperlipidemia, unspecified; I25.5 Ischemic cardiomyopathy; I25.10 Atherosclerotic heart disease of native coronary artery without angina pectoris; I47.2 Ventricular tachycardia; Z79.899 Other long term (current) drug therapy; Z79.82 Long term (current) use of aspirin; Z95.5 Presence of coronary angioplasty implant and graft; I10 Essential (primary) hypertension; F17.210 Nicotine dependence, cigarettes, uncomplicated; E87.6 Hypokalemia; E87.2 Acidosis; R41.0 Disorientation, unspecified; Z87.440 Personal history of urinary (tract) infections; Z95.810 Presence of automatic (implantable) cardiac defibrillator
CPT/HCPCS: 36415; 70450; 70551; 80053; 80307; 80320; 81001; 82140; 82607; 83605; 83735; 84443; 85025; 87086; 87088; 93005; 96372; 96374; 97802; 99218; 99283; 99285; 99406; J7030; A4216; G0378; G0480; J2405

== ENCOUNTER 2020-11-15 03:19 | Inpatient (IN) | payer MEDICAID, SELFPAY ==
[2019-02-17 13:19] VITALS: BMI 29.2
[2020-11-15] VITALS (14 sets, daily range): BP systolic 103–143; BP diastolic 60–76; PULSE 66–81; RESP 15–18; TEMP 35.8–37.1; O2SAT 91–98; BMI 28.1; BMI 27.3
--- NOTE | 2020-11-15 03:27 | CT_ITS ---
STUDY: CT BRAIN WITHOUT CONTRAST REASON FOR EXAM: Male, 65 years old. FALL -- HX:HTN,A-FIB,CHF RADIATION DOSAGE (If Supplied By Facility): CTDIvol = ( 44.99 ) mGy, DLP = ( 846.73 ) mGycm TECHNIQUE: Transaxial CT imaging of the brain was performed without administration of intravenous contrast material. Individualized dose optimization techniques were used for this CT. COMPARISON: August 28, 2020 MRI brain FINDINGS: Normal soft tissue structures. Normal calvarium. There is moderate cerebral atrophy with widening of the extra-axial spaces and ventricular dilatation. There are areas of decreased attenuation within the white matter tracts of the supratentorial brain, consistent with microvascular disease changes. Normal basal ganglia and thalami. Normal brainstem. There is moderate cerebellar atrophy. There is no intracranial hemorrhage. There are no findings of an acute ischemic infarction. Normal visualized paranasal sinuses. CT/Brain/Head without Contrast IMPRESSION: Moderate atrophy no evidence of acute hemorrhage infarct or edema. Findings similar to the prior study. Electronically Signed: Reanna Mullins MD at 4:11 EST Tel , Service support ,
--- NOTE | 2020-11-15 03:27 | RAD_ITS ---
STUDY: X-RAY - PELVIS AND LEFT HIP REASON FOR EXAM: Male, 65 years old. S/p fall -- c/o lt hip pain TECHNIQUE: 3 views of the pelvis and hip. COMPARISON: None. FINDINGS: There is a non-specific bowel gas pattern. Normal visualized soft tissue structures. There is narrowing with cortical sclerosis and osteophyte formation of the sacroiliac joint consistent with degenerative osteoarthritic changes. Normal bilateral superior and inferior pubic rami. There are degenerative changes of the pubic symphysis with articular narrowing and sclerosis. Normal bilateral ischial tuberosities. There is a acute left subcapital femoral neck fracture. The visualized degenerative change in the lower lumbar spine. There is mild degenerative change in both hip joints. There is a soft tissue calcification adjacent to the right hip. RAD/HIP, UNI W/ Pelvis 2-3 Views IMPRESSION: Left subcapital femoral neck fracture. Electronically Signed: Reanna Mullins MD at 4:06 EST Tel , Service support ,
--- NOTE | 2020-11-15 03:29 | ED.DCSUM_ITS ---
- ER Visit Summary Date of Service: 11/15/20 Chief Complaint: Fall, left hip pain History of Present Illness: The patient is a 65 M who presents after a fall. He states that his right leg gave out on him. He states that this happens quite frequently and is a chronic issue. He fell onto his left hand side onto his left hip. He states he is unable to get up due to the pain. He did not hit his head. He admits to drinking about a half a bottle of wine tonight. He took nothing for this at home. Denies any previous surgeries to the left hip. Physical Examination: Vital signs are reviewed. HEENT exam shows no evidence of trauma. His cervical spine is nontender. His back is nontender. Left hip there is tenderness to the greater trochanter. He is holding it in flexion. There is no shortening. He has limited pain to range of motion secondary to pain. He has a left forearm abrasion with no tenderness to the forearm, wrist or elbow. His GCS is 15. He has normal strength and sensation bilaterally. Test Results: CAT scan of the head reveals chronic changes. Left hip x-ray reveals a left femoral neck fracture. Emergency Department Course and Treatment: Patient was initially given Tylenol for pain and then given morphine IV. X-rays do show the left femoral neck fracture. His pulses are intact distally. 2+ DP pulses are felt in the bilateral feet. His sensation is intact as well. Patient was discussed with with orthopedics who states that he will see the patient in consultation. Initially he stated he wanted to do surgery on but called back and said he would like to do it today, Friday, if possible. The patient's last dose of Plavix and aspirin were at 5 PM on Friday. Patient was discussed with the hospitalist for admission Treatment Plan: [] Disposition: Admit Impression: Left femoral neck fracture This note was generated with [employer] dictation software. It may contain incorrect words, spelling, and punctuation that were not noted in review of the chart prior to signing ED Disposition - Plan for ED Patient: Referrals: Shay Del Rosario III, MD [Primary Care Provider] -
[2020-11-15] MEDS: Acetaminophen 325 MG Tablet 650 MG PO ×2 (03:31→20:09)
--- NOTE | 2020-11-15 03:56 | RAD_ITS ---
STUDY: X-RAY CHEST REASON FOR EXAM: Male, 65 years old. Pre op -- s/p fall -- c/o lt hip pain TECHNIQUE: Single AP portable view extends to of the chest. COMPARISON: March 29, 2020 chest x-ray FINDINGS: There is a left side defibrillator leads overlying the heart. The lungs are clear and expanded. There is no demonstrated pleural abnormality. Normal size heart. Normal mediastinum and mady. Normal visualized pulmonary arteries. Normal visualized aortic arch and descending thoracic aorta. There are diffuse degenerative changes of the visualized thoracic spine. There is an old rib fracture left rib 9. There is an old rib fracture right rib 7. Probable prior fracture right rib 3. There is no demonstrated abnormality of the visualized soft tissue structures of the upper abdomen. RAD/Chest 1 View (Portable) IMPRESSION: No Visualized acute focal infiltrate. Defibrillator. Mild cardiomegaly. Prior bilateral rib fractures. Electronically Signed: Reanna Mullins MD at 4:10 EST Tel , Service support ,
[2020-11-15] MEDS: Morphine 4 MG/ML Syringe IV ×5 (04:12→21:20)
[2020-11-15 04:23] LABS: Absolute Lymphocyte Count 1.18 X10^3/uL (0.83-4.51); Absolute Neutrophil Count 13.5 X10^3/uL (2.0-7.7); Basophil# 0.03 X10^3/uL; Basophil% 0.2 % (0-1); Eosinophil# 0.03 X10^3/uL; Eosinophils% 0.2 % (0-5); Hematocrit 43.3 % (40-54); Hemoglobin 15.6 g/dL (13.0-16.5); Lymphocyte # 1.18 X10^3/ul (4.0); Lymphocyte % 7.3 % (19-41); Mean Corpuscular Hgb 35.5 pg (27.0-32.0); Mean Corpuscular Volume 98.6 fL (80-94); Mean Platelet Vol. 9.4 fl (6.2-12.0); Monocyte# 1.43 X10^3/uL; Monocyte% 8.8 % (0-10); NRBC Flagged by Analyzer 0 % (0-5); Neutrophil # 13.46 X10^3/uL (2.7-7.7); Neutrophil % 82.8 % (47-70); Platelet Count 234 K/mm3 (150-450); RBC Distribution Width CV 13.4 % (11.6-14.6); RBC Distribution Width SD 49.2 fl (35.1-43.9); Red Blood Count 4.39 M/mm3 (4.6-6.2); White Blood Count 16.3 K/mm3 (4.4-11.0)
[2020-11-15 04:31] LABS: International Normalized Ratio 1.1; Prothrombin Time (Protime)PT. 13.2 SECONDS (11.7-14.9)
[2020-11-15 04:36] LABS: Anion Gap 8 (5-15); BUN 7 mg/dL (7-18); BUN/Creat Ratio 8.6 RATIO (10-20); Calcium,Total 8.5 mg/dL (8.5-10.1); Chloride 94 mmol/L (98-107); Creatinine, Serum 0.81 mg/dL (0.70-1.30); EST Glomerular Filtration Rate 101 mL/min (>60); Est Glom Filt Rate - Afr Amer 122 mL/min (>60); Estimated Creatinine Clearance 104.12 ml/min; Glucose 128 mg/dL (74-106); Potassium 4.4 mmol/L (3.5-5.1); Sodium Level 124 mmol/L (136-145)
--- NOTE | 2020-11-15 04:57 | PCM.HP.STD ---
Problem List (1) Femoral neck fracture Status: Acute (2) Dyspnea Status: Chronic (3) Stage 1 mild COPD by GOLD classification Status: Chronic Comment: FEV1 87% of predicted (4) History of left heart catheterization (LHC) Status: Chronic Comment: Will obtain old film from [place] from 2 years ago to see if LAD lesion has worsened. Apparently pt underwent FFR of this portion of LAD and was found to be 0.81 so no intervention was performed. He has had no AICD discharges since his cath at [place]. Intervention of this lesion is at moderate risk of the stent covering over DIAG, as well as eccentric calcium in proximal LAD sequeing into mid LAD lesion. I believe we could place the stent at the ostium of the mid LAD with minimal encroachment into DIAG, but pt has no anginal symptoms or change in his exercise capacity. I will obtain old films from [place] to compare mid LAD stenosis; if it appears to be worse, then will return for elective PCI of LAD with double wires. (5) Hyperlipidemia Status: Chronic (6) Atherosclerotic heart disease of [place] coronary artery without angina pectoris Status: Chronic Qualifiers: Circle vs. transplanted heart: [place] heart Qualified Code(s): I25.10 - Atherosclerotic heart disease of [place] coronary artery without angina pectoris Comment: 12/28/1999 distal RCA was thrombectomized and stent placed; 04/01/2000 PTCA of distal RCA and ostium of the PDA for in-stent stenosis. [facility] 11/2005. (7) Ischemic cardiomyopathy Status: Chronic (8) Ventricular tachycardia Status: Chronic Comment: 10/30/17 tsfer to [facility] with [place] storm (9) Premature heartbeats Status: Chronic (10) Presence of automatic (implantable) cardiac defibrillator Status: Chronic Comment: ICD Implant: 11/2005; ICD generator replacement 08/23/2010 (11) History of coronary artery stent placement Status: Chronic Comment: 12/28/1999 distal RCA was thrombectomized and stent placed; 04/01/2000 PTCA of distal RCA and ostium of the PDA for in-stent stenosis. Successful PTCA/DEMETRIO to Mid LAD with a 3.0 x 28 Promus Synergy, post dilated in middle stent with a 3.0 x 12 NC Balloon; 75%-->0%, no dissection. Successful PTCA/DEMETRIO Mid LAD across bifurcation of DIAG#1 and telescoped into mid LAD stent with a 4.0 x 28 Promus Synergy, post dilated in the proximal LAD with a 4.0 x 8 and a 4.5 x 8 NC Balloon; 855-->0%, no dissection. 02/17/2019 Successful PCI with PTCA to the ostial DIAG #1 through struts of LAD stent with a 2.5 x 8 Ballloon; 70%-->30%, no dissection. NO additional stenting needed or attempted. (12) Benign hypertension Status: Chronic (13) Tobacco user Status: Chronic (14) History of alcoholism Status: Chronic History of Present Illness Date of Admission: 11/15/20 Chief Complaint: Fall with left hip pain The patient is a 65 year old M with a significant history of CAD status post 3 coronary stent; ventricular tachycardia; COPD stage I and tobacco abuse who presents emergency department with a fall. His right hip gives out sporadically when he gets up quickly. Few hours before presentation his right hip gave up and he fell on the same right hip. Subsequently he had excruciating pain of his right hip. The pain worsens with movement of the right hip and the pain improved with lying still. The pain is episodic. Morphine given at emergency department helped with the pain. Following the fall he also had a laceration of his left forearm. He denies hitting his head. Hip and pelvis x-ray showed left subcapital femoral neck fracture. Prior to him falling he had drank about half a bottle of wine. Past Medical History Past Medical History (Chronic Problems): Chronic Problems (Last Reviewed 11/15/20 @ 05:[address] Lcuiano Murphy MD) Dyspnea (Chronic) Stage 1 mild COPD by GOLD classification (Chronic) FEV1 87% of predicted History of left heart catheterization (LHC) (Chronic 01/21/19) Will obtain old film from [place] from 2 years ago to see if LAD lesion has worsened. Apparently pt underwent FFR of this portion of LAD and was found to be 0.81 so no intervention was performed. He has had no AICD discharges since his cath at [place]. Intervention of this lesion is at moderate risk of the stent covering over DIAG, as well as eccentric calcium in proximal LAD sequeing into mid LAD lesion. I believe we could place the stent at the ostium of the mid LAD with minimal encroachment into DIAG, but pt has no anginal symptoms or change in his exercise capacity. I will obtain old films from [place] to compare mid LAD stenosis; if it appears to be worse, then will return for elective PCI of LAD with double wires. Hyperlipidemia (Chronic) Atherosclerotic heart disease of [place] coronary artery without angina pectoris (Chronic) 12/28/1999 distal RCA was thrombectomized and stent placed; 04/01/2000 PTCA of distal RCA and ostium of the PDA for in-stent stenosis. [facility] 11/2005. Ischemic cardiomyopathy (Chronic) Ventricular tachycardia (Chronic) 10/30/17 tsfer to [facility] with [place] storm Premature heartbeats (Chronic) Presence of automatic (implantable) cardiac defibrillator (Chronic 10/31/17) ICD Implant: 11/2005; ICD generator replacement 08/23/2010 History of coronary artery stent placement (Chronic 02/17/19) 12/28/1999 distal RCA was thrombectomized and stent placed; 04/01/2000 PTCA of distal RCA and ostium of the PDA for in-stent stenosis. Successful PTCA/DEMETRIO to Mid LAD with a 3.0 x 28 Promus Synergy, post dilated in middle stent with a 3.0 x 12 NC Balloon; 75%-->0%, no dissection. Successful PTCA/DEMETRIO Mid LAD across bifurcation of DIAG#1 and telescoped into mid LAD stent with a 4.0 x 28 Promus Synergy, post dilated in the proximal LAD with a 4.0 x 8 and a 4.5 x 8 NC Balloon; 855-->0%, no dissection. 02/17/2019 Successful PCI with PTCA to the ostial DIAG #1 through struts of LAD stent with a 2.5 x 8 Ballloon; 70%-->30%, no dissection. NO additional stenting needed or attempted. Benign hypertension (Chronic) Tobacco user (Chronic) History of alcoholism (Chronic) Medical History: Medical History (Last Reviewed 11/15/20 @ 05:[address] Luciano Murphy MD) Urinary tract infection (Inactive) N39.0 Dehydration (Inactive) E86.0 Declining functional status (Inactive) R53.81 Cellulitis and abscess of upper extremity (Inactive) L03.119, L02.419 left elbow abscess Dyspnea (Chronic) R06.00 Stage 1 mild COPD by GOLD classification (Chronic) J44.9 FEV1 87% of predicted Hyperlipidemia (Chronic) E78.5 Atherosclerotic heart disease of [place] coronary artery without angina pectoris (Chronic) I25.10 12/28/1999 distal RCA was thrombectomized and stent placed; 04/01/2000 PTCA of distal RCA and ostium of the PDA for in-stent stenosis. [facility] 11/2005. Ischemic cardiomyopathy (Chronic) I25.5 Ventricular tachycardia (Chronic) I47.2 10/30/17 tsfer to [facility] with [place] storm Premature heartbeats (Chronic) I49.40 Benign hypertension (Chronic) I10 Tobacco user (Chronic) Z72.0 History of alcoholism (Chronic) F10.21 History of echocardiogram Onset Date: 04/03/17 Z92.89 EF 40-45% History of stress test Onset Date: 02/16/10 Z92.89 Allergies Iodine and Iodide Containing Produc Allergy (Severe, Verified 11/15/20 03:28) Rash ezetimibe [From Zetia] Adverse Reaction (Severe, Verified 11/15/20 03:28) Myalgias Svvqtgj-Nkv-Vut Reductase Inhibitor Adverse Reaction (Severe, Verified 11/15/20 03:28) Elevated Liver Enzymes Home Medications: Ambulatory Orders Medication Instructions Recorded nitroglycerin 0.4 mg sublingual 0.4 mg SUBLINGUAL Q5M PRN #25 tab 05/08/18 tablet Multivit-Min/FA/Lycopen/Lutein 1 ea PO QODAY 12/13/19 [Centrum Silver Men Tablet] aspirin 81 mg tablet,delayed 81 mg PO DAILY #90 tab 01/04/20 release amiodarone 200 mg tablet 200 mg PO BID #180 tab 06/15/20 clopidogrel 75 mg tablet 75 mg PO DAILY 09/15/20 buspirone 10 mg tablet 10 mg PO TID 10/03/20 metoprolol succinate 100 mg 100 mg PO DAILY #90 tab 11/02/20 tablet,extended release 24 hr Duloxetine HCl 30 mg PO DAILY 11/15/20 Surgical History: Surgical History (Last Reviewed 11/15/20 @ 05:[address] Luciano Murphy MD) History of left heart catheterization (LHC) (Chronic) Onset Date: 01/21/19 Z98.890 Will obtain old film from [place] from 2 years ago to see if LAD lesion has worsened. Apparently pt underwent FFR of this portion of LAD and was found to be 0.81 so no intervention was performed. He has had no AICD discharges since his cath at [place]. Intervention of this lesion is at moderate risk of the stent covering over DIAG, as well as eccentric calcium in proximal LAD sequeing into mid LAD lesion. I believe we could place the stent at the ostium of the mid LAD with minimal encroachment into DIAG, but pt has no anginal symptoms or change in his exercise capacity. I will obtain old films from [place] to compare mid LAD stenosis; if it appears to be worse, then will return for elective PCI of LAD with double wires. Presence of automatic (implantable) cardiac defibrillator (Chronic) Onset Date: 10/31/17 Z95.810 ICD Implant: 11/2005; ICD generator replacement 08/23/2010 History of coronary artery stent placement (Chronic) Onset Date: 02/17/19 Z95.5 12/28/1999 distal RCA was thrombectomized and stent placed; 04/01/2000 PTCA of distal RCA and ostium of the PDA for in-stent stenosis. Successful PTCA/DEMETRIO to Mid LAD with a 3.0 x 28 Promus Synergy, post dilated in middle stent with a 3.0 x 12 NC Balloon; 75%-->0%, no dissection. Successful PTCA/DEMETRIO Mid LAD across bifurcation of DIAG#1 and telescoped into mid LAD stent with a 4.0 x 28 Promus Synergy, post dilated in the proximal LAD with a 4.0 x 8 and a 4.5 x 8 NC Balloon; 855-->0%, no dissection. 02/17/2019 Successful PCI with PTCA to the ostial DIAG #1 through struts of LAD stent with a 2.5 x 8 Ballloon; 70%-->30%, no dissection. NO additional stenting needed or attempted. Hx of knee surgery Z98.890 Surgical History: angioplasty, pacemaker implantation, - - right knee arthroscopy Psychiatric History: No pertinent psych hx Smoking Status: Current every day smoker Tobacco Use: Cigarettes Alcohol: Heavy - *Family History Maternal Family History: Family History (Last Reviewed 11/15/20 @ 05:[address] Luciano Murphy MD) Grandmother Myocardial infarction Grandfather Myocardial infarction Review of Systems Constitutional: Denies: Chills, Fever, Weight Change HEENT: Denies: Head Aches, Sinus Congestion, Sinus Drainage Cardiovascular: Denies: Chest Pain, Palpitations Respiratory: Denies: Cough, Shortness of breath at rest, Sputum production Gastrointestinal: Denies: Abdominal Pain, Nausea, Vomiting Genitourinary: Denies: Dysuria Musculoskeletal: Reports: Joint Pain - R hip pain, Joint Tenderness - R hip pain Skin: Reports: Wounds - Right forearm laceration. Denies: Rash Neurological: Denies: Numbness, Tingling, Focal weakness Psychiatric: Denies: Anxiety, Depression, Homicidal Ideations, Suicidal Ideations Hematologic/ Lymphatic: Denies: Easy Bruising, Easy Bleeding VTE Information - Inpt Only VTE Present on Admission: No VTE Mechan Device Prophylaxis: SCD's VTE Pharm Prophylaxis ordered?: No Patient Problems: Active and Suspected Problems (Last Reviewed 11/15/20 @ 05:[address] Luciano Murphy MD) Femoral neck fracture (Acute) - Physical Exam Vitals/I&O's: Vital Signs Temp Pulse Resp BP Pulse Ox 98.1 F 70 16 116/76 98 11/15/20 03:21 11/15/20 03:21 11/15/20 03:21 11/15/20 03:21 11/15/20 03:21 Oxygen Delivery Method Room Air Weight: 96.8 kg Body Mass Index (BMI) 28.1 General: Alert, Oriented x3, Cooperative HEENT: Atraumatic, PERRLA, EOMI, Normocephalic Neck: Supple, No JVD, Negative Carotid Bruits Lungs: Clear to auscultation, Normal air movement Cardiovascular: Regular rate, Normal S1, Normal S2, No murmurs Abdomen: Bowel Sounds Present, Soft, Non Tender Extremities: No edema, Capillary Refill Less than 3 Seconds, - - Right hip, mildly tender Skin: No rashes, No breakdown, - - Laceration of right forearm Musculoskeletal: Tenderness - Right hip mildly tender Neurological: Cranial nerves II-XII grossly intact Psych/Mental Status: Normal Affect, Appropriate Laboratory Results 11/15/20 04:15: WBC 16.3 H, RBC 4.39 L, Hgb 15.6, Hct 43.3, MCV 98.6 H, MCH 35.5 H, MCHC 36.0, RDW Std Deviation 49.2 H, RDW Coeff of Yoli 13.4, Plt Count 234, MPV 9.4, Immature Gran % (Auto) 0.700, Neut % (Auto) 82.8 H, Lymph % (Auto) 7.3 L, Nuckolls % (Auto) 8.8, Eos % (Auto) 0.2, Baso % (Auto) 0.2, Absolute Neuts (auto) 13.5 H, Absolute Lymphs (auto) 1.18, Nucleated RBC % 0 11/15/20 04:15: PT 13.2, INR 1.1 11/15/20 04:15: Sodium 124 L, Potassium 4.4, Chloride 94 L, Carbon Dioxide 22.0, Anion Gap 8, BUN 7, Creatinine 0.81, Estim Creat Clear Calc 104.12, Est GFR (MDRD) Af Amer 122, Est GFR (MDRD) Non-Af 101, BUN/Creatinine Ratio 8.6 L, Glucose 128 H, Calcium 8.5 Assessment/Plan All Active Problems (Last Reviewed 11/15/20 @ 05:[address] Luciano Murphy MD) Femoral neck fracture (Acute) The patient is a 65 year old M with a significant history of CAD status post 3 coronary stent; ventricular tachycardia; COPD stage I and tobacco abuse who presents to the emergency department with a fall and found to have a left subcapital femoral neck fracture. Acute left subcapital femoral neck fracture Radiologist impression of hip/pelvis x-ray: Left subcapital femoral neck fracture. Hip/pelvic x-ray was independently reviewed. I agree radiologist interpretation. ACS NSQIP surgical risk calculator: Patient reports history of about 7 dysrhythmia requiring his ICD to deliver shocks. His ASA Classification will be adjudged severe systemic disease/constant threat to life. With this ASA Classification his cardiac complication is still below average risk per ACS NSQIP surgical risk calculator. However serious complication risk and any complication risk as well as readmission and return to the OR is above average risk. His risk of sepsis is also above average risk. With his history of dysrhythmia requiring ICD shocks will adjudge his surgical risk cardiac risk as high and will discuss with cardiology. Baseline preoperative EKG ordered. Hold patient aspirin and Plavix. Metoprolol continued. Morphine IV as needed for pain. Antiemetics and bowel protocol in place. Alcohol abuse Report that he can stay off alcohol for about 3 days and will not withdraw. Reports drinking 3-5 beers per day. Will put on CIWA protocol with thiamine; multivitamin and folic acid. Ativan as needed per CIWA protocol. Tobacco abuse Report that after his spouse he became depressed and went back smoking. Declined nicotine patch. Counselled. Ischemic cardiomyopathy CAD requiring 3 coronary stents. Review of cardiology notes on 03/30/2020 showed that patient had an inappropriate shock from his ICD on 03/29/2020. History of ventricular tachycardia storm with ICD placement. Echocardiogram on 04/07/2017 showed mildly dilated right ventricle with an estimated ejection fraction of 40 to 45%. Stage I diastolic dysfunction. Left and right atrium was mildly enlarged. Patient reports that after stents placed his congestive heart failure resolved Metoprolol continued. Aspirin and Plavix held as above. Hypertension Controlled on metoprolol. Metoprolol continued Trend blood pressures. Depression/anxiety Duloxetine continued Buspirone continued History of ventricular tachycardia Amiodarone continued DVT prophylaxis No chemical thromboprophylaxis secondary to possible surgical intervention. SCD ordered. Inpatient E&M: 03937 Init Hosp L3
--- NOTE | 2020-11-15 05:31 | PCS.PANDOC ---
PANDEMIC DOCUMENTATION INITIATED: Date: 11/15/2020 Time: 0510
--- NOTE | 2020-11-15 05:55 | EKG12_ITS ---
Test Reason : AM EKG Blood Pressure : / mmHG Vent. Rate : 068 BPM Atrial Rate : 068 BPM P-R Int : 218 ms QRS Dur : 114 ms QT Int : 448 ms P-R-T Axes : 069 077 079 degrees QTc Int : 476 ms Sinus rhythm with 1st degree A-V block Nonspecific T wave abnormality Prolonged QT Abnormal ECG Confirmed by LINDA JEFFERSON, BELLA ([id number]), news copy editor ASPEN MARTI ([id number]) on 11/16/2020 11:38:04 AM Referred By: MIRNA Confirmed By:BELLA MCKEON MD
[2020-11-15] MEDS: busPIRone 5 MG Tablet 10 MG PO ×3 (07:23→20:10)
--- NOTE | 2020-11-15 07:47 | ECHOCS_ITS ---
Reason For Study: CAD/ASHD Procedure This was a 2D Doppler, Color Flow transthoracic echocardiogram. Technically difficult study. Patient scanned supine due to left hip fracture. Contrast injection performed. Exam performed portable in patient room. Left Ventricle Normal LV size. The estimated ejection fraction is 45 %. Mild to moderate global left ventricular systolic dysfunction. There is mild global hypokinesis of the left ventricle. Right Ventricle Normal RV size. Normal systolic function. Atria Normal left atrium. Normal right atrium. Mitral Valve Mitral valve not well visualized. Tricuspid Valve Normal tricuspid valve. Aortic Valve The aortic valve is not well visualized. Pulmonic Valve The pulmonic valve is not well visualized. Great Vessels Normal aortic root. Pericardium/Pleural No pericardial effusion. Medication Diluted definity 6ml given slow IV push to enhance endocardial definition. MMode/2D Measurements & Calculations LVIDd: 6.3 cm IVSd: 1.0 cm LAV(MOD-bp): 52.0 ml LVIDs: 4.6 cm LVPWd: 1.6 cm FS: 26.6 % LAV(MOD-bp) Indexed: 24.1 ml/m2 LAV(MOD-sp2): 37.4 ml LAV(MOD-sp4): 66.7 ml LA A4 area: 22.1 cm2 Time Measurements MV dec time: 0.34 sec Doppler Measurements & Calculations MV E max mazin: 48.5 cm/sec Lat Peak E' Mazin: 8.3 cm/sec Med Peak E' Mazin: 7.9 cm/sec MV A max amzin: 93.2 cm/sec E/E' lat: 5.8 E/E' med: 6.1 MV E/A: 0.52 MV V2 max: 99.5 cm/sec MV P1/2t max mazin: 60.4 cm/sec Ao V2 max: 124.6 cm/sec MV max P.0 mmHg MV P1/2t: 114.3 msec Ao max P.2 mmHg MV V2 mean: 49.0 cm/sec MV mean P.2 mmHg MV dec slope: 154.6 cm/sec2 MV V2 VTI: 25.2 cm MVA(P1/2t): 1.9 cm2 LV V1 max: 99.0 cm/sec PA V2 max: 76.4 cm/sec LV V1 max P.9 mmHg Interpretation Summary Normal LV size. The estimated ejection fraction is 45 %. Mild to moderate global left ventricular systolic dysfunction. There is mild global hypokinesis of the left ventricle. Ordering Physician: Patricio Glynn Referring Physician: SHARDA Del Rosario M.D. Performed By: Ronnell Casarez RCS
--- NOTE | 2020-11-15 07:49 | CON.PCM_ITS ---
Reason for Consult Date of Consultation: 11/15/20 Reason for Consultation: Cardiac evaluation History of Present Illness: The patient is a 65 year old M with a history of coronary artery disease status post angioplasty and stenting of the right coronary artery, right posterior descending artery, and LAD with moderate disease for which he had an FFR evaluation which was noted to be 0.81. He has a history of ischemic cardiomyopathy inducible ventricular tachycardia with VT storm and status post ICD placement. He also has a history of hypertension and hyperlipidemia. He was seen in the emergency room in March 2020 with a history of ICD shocks. He had his medications adjusted after he had undergone a cardiac catheterization which demonstrated patency of his vessels, he was placed on amiodarone as well as an increased dose of his beta-lilliana. He apparently has done well. He says that yesterday he was going to get food from his kitchen twisted his foot and then landed on it and was brought to the emergency room after he had sustained a fracture of his left femoral head. He denies any chest pain or shortness of breath or paroxysmal nocturnal dyspnea or pedal edema he denies any defibrillator discharge. Cardiology was called to evaluate him because of his history. [] Past Medical History Allergies/Adverse Reactions: Allergies Iodine and Iodide Containing Produc Allergy (Severe, Verified 11/15/20 03:28) Rash ezetimibe [From Zetia] Adverse Reaction (Severe, Verified 11/15/20 03:28) Myalgias Dbdsdqa-Hvy-Ytk Reductase Inhibitor Adverse Reaction (Severe, Verified 11/15/20 03:28) Elevated Liver Enzymes Home Medications: Ambulatory Orders Medication Instructions Recorded nitroglycerin 0.4 mg sublingual 0.4 mg SUBLINGUAL Q5M PRN #25 tab 05/08/18 tablet Multivit-Min/FA/Lycopen/Lutein 1 ea PO QODAY 12/13/19 [Centrum Silver Men Tablet] aspirin 81 mg tablet,delayed 81 mg PO DAILY #90 tab 01/04/20 release amiodarone 200 mg tablet 200 mg PO BID #180 tab 06/15/20 clopidogrel 75 mg tablet 75 mg PO DAILY 09/15/20 buspirone 10 mg tablet 10 mg PO TID 10/03/20 metoprolol succinate 100 mg 100 mg PO DAILY #90 tab 11/02/20 tablet,extended release 24 hr Duloxetine HCl 30 mg PO DAILY 11/15/20 Past Medical History (Chronic Problems): Chronic Problems (Last Reviewed 11/15/20 @ 05:[address] Luciano Murphy MD) Dyspnea (Chronic) Stage 1 mild COPD by GOLD classification (Chronic) FEV1 87% of predicted History of left heart catheterization (LHC) (Chronic 01/21/19) Will obtain old film from [place] from 2 years ago to see if LAD lesion has worsened. Apparently pt underwent FFR of this portion of LAD and was found to be 0.81 so no intervention was performed. He has had no AICD discharges since his cath at [place]. Intervention of this lesion is at moderate risk of the stent covering over DIAG, as well as eccentric calcium in proximal LAD sequeing into mid LAD lesion. I believe we could place the stent at the ostium of the mid LAD with minimal encroachment into DIAG, but pt has no anginal symptoms or change in his exercise capacity. I will obtain old films from [place] to compare mid LAD stenosis; if it appears to be worse, then will return for elective PCI of LAD with double wires. Hyperlipidemia (Chronic) Atherosclerotic heart disease of [place] coronary artery without angina pectoris (Chronic) 12/28/1999 distal RCA was thrombectomized and stent placed; 04/01/2000 PTCA of distal RCA and ostium of the PDA for in-stent stenosis. C 11/2005. Ischemic cardiomyopathy (Chronic) Ventricular tachycardia (Chronic) 10/30/17 tsfer to [facility] with VT storm Premature heartbeats (Chronic) Presence of automatic (implantable) cardiac defibrillator (Chronic 10/31/17) ICD Implant: 11/2005; ICD generator replacement 08/23/2010 History of coronary artery stent placement (Chronic 02/17/19) 12/28/1999 distal RCA was thrombectomized and stent placed; 04/01/2000 PTCA of distal RCA and ostium of the PDA for in-stent stenosis. Successful PTCA/DEMETRIO to Mid LAD with a 3.0 x 28 Promus Synergy, post dilated in middle stent with a 3.0 x 12 NC Balloon; 75%-->0%, no dissection. Successful PTCA/DEMETRIO Mid LAD across bifurcation of DIAG#1 and telescoped into mid LAD stent with a 4.0 x 28 Promus Synergy, post dilated in the proximal LAD with a 4.0 x 8 and a 4.5 x 8 NC Balloon; 855-->0%, no dissection. 02/17/2019 Successful PCI with PTCA to the ostial DIAG #1 through struts of LAD stent with a 2.5 x 8 Ballloon; 70%-->30%, no dissection. NO additional stenting needed or attempted. Benign hypertension (Chronic) Tobacco user (Chronic) History of alcoholism (Chronic) Surgical History: angioplasty, pacemaker implantation, - - right knee arthroscopy Psychiatric History: No pertinent psych hx - *Family History Maternal Family History: Family History (Last Reviewed 11/15/20 @ 05:[address] Luciano Murphy MD) Grandmother Myocardial infarction Grandfather Myocardial infarction Smoking Status: Current every day smoker Tobacco Use: Cigarettes Alcohol: Heavy Drugs: None Review of Systems - Review of Systems General: Denies: Fever, Night Sweats, Fatigue HEENT: Denies: Vision Change Cardiovascular: Denies: Chest Discomfort, Shortness of Breath, Orthopnea, PND, Peripheral Edema, Palpitations, Lightheadedness, Dizziness, Near Syncope, Syncope Respiratory: Denies: Cough, Sputum Production, Hemoptysis Gastrointestinal: Denies: Hematemesis, Hematochezia, Melena Genitourinary: Denies: Dysuria, Hematuria Muscoloskeletal: Denies: Myalgias Skin: Denies: Rash Neurological: Denies: Dizziness Psychiatric: Denies: Anxiety Endocrine: Denies: Unexplained Weight Loss Hematologic/ Lymphatic: Denies: Anemia Subjectve: Pleasant gentleman in no distress Objective: Vital Signs Temp Pulse Resp BP Pulse Ox 98.0 F 66 18 103/69 97 11/15/20 05:15 11/15/20 07:00 11/15/20 05:15 11/15/20 05:15 11/15/20 05:15 Oxygen Delivery Method Room Air Weight: 206 lb 12.697 oz Body Mass Index (BMI) 27.3 Intake and Output for Last 24 Hours 11/13/20 11/14/20 11/15/20 23:59 23:59 23:59 Intake Total 0 / 0 Output Total 0 / 0 Balance 0 / 0 General: Awake, Alert, Oriented x 3 HEENT: PERRL, EOMI, Sclera Non Icteric Neck: Supple, Good ROM, No Lymph Node Enlargement Lungs: Clear to auscultation Cardiovascular: Regular Rhythm, Normal S1, Normal S2, No Murmurs, No Rubs, No Gallops Vascular: No Carotid Bruits, Normal Femoral Pulses, Normal Radial Pulses, Normal Dorsalis Pedal Pulse, Normal Posterior Tibial Pulses Abdomen: Bowel Sounds Present, Soft, Non Tender, No HSM, No Organomegaly Extremities: No Cyanosis, No Clubbing, No edema Musculoskeletal: No Erythema Skin: No Rashes Lymphatic: No Lymph Node Enlargement Neurological: No Focal Motor or Sensory Deficit 11/15/20 04:15: WBC 16.3 H, RBC 4.39 L, Hgb 15.6, Hct 43.3, MCV 98.6 H, MCH 35.5 H, MCHC 36.0, Plt Count 234, MPV 9.4, Immature Gran % (Auto) 0.700, Neut % (Auto) 82.8 H, Lymph % (Auto) 7.3 L, Polk % (Auto) 8.8, Eos % (Auto) 0.2, Baso % (Auto) 0.2, Absolute Neuts (auto) 13.5 H, Nucleated RBC % 0 11/15/20 04:15: PT 13.2, INR 1.1 11/15/20 04:15: Sodium 124 L, Potassium 4.4, Chloride 94 L, Carbon Dioxide 22.0, Anion Gap 8, BUN 7, Creatinine 0.81, Est GFR (MDRD) Af Amer 122, Est GFR (MDRD) Non-Af 101, BUN/Creatinine Ratio 8.6 L, Glucose 128 H, Calcium 8.5 Rhythm: EKG: Normal sinus rhythm with no acute changes ECHO: Pending Stress Test: Cardiac Cath: PCI: CT Surgery: Holter monitor: EPS: PPM: CXR: Chest CT Scan: Assessment/Plan 1. Preoperative cardiac evaluation * In terms of his preoperative cardiac evaluation he appears to be stable. Like us to obtain an echocardiogram to assess his ventricular function and interrogate his ICD. His last ICD interrogation in October did not demonstrate any VT or VF episodes. He does have some electrolyte abnormalities and would like this to be evaluated. If both the above are noted to be stable then I would suggest that he can proceed with his surgery. His beta-lilliana should be continued this morning. * Hid ICD interrogation this morning was unremarkable. * Stable to go for surgery 2. Coronary artery disease * He does have evidence of coronary artery disease. He was last evaluated within the last 3 years with a cardiac catheterization which demonstrated patency of his LAD, left circumflex and his previously placed stents in his right coronary artery. At this time without any symptomatology I would not necessarily recommend any stress testing. * 3. Status post ICD implantation * His ICD is being interrogated this morning. Further recommendations will depend on the results of the above. * He will continue with his amiodarone at this time. * 4. Left ventricular systolic dysfunction * He has not had any heart failure symptomatology. At this time I would recommend that we continue to follow him on his current medications. * His echo EF is approximately 45 % * Thank you for allowing me to participate in the care of your patient. Please don't hesitate to call if any issues arise.
[2020-11-15 09:10] LABS: Vitamin D,25 Hydroxy 14.3 ng/mL
[2020-11-15] MEDS: Ondansetron 4 MG/2 ML Vial IV (09:19)
[2020-11-15] MEDS: 0.9% Saline Lock 10 ML Syringe IV ×4 (09:20→18:03)
[2020-11-15] MEDS: Thiamine Hydrochloride 100 MG Tablet PO ×2 (09:54→16:22)
[2020-11-15] MEDS: cycloBENZAPRine HCl 5 MG TABLET PO ×3 (09:54→20:09)
[2020-11-15] MEDS: Folic Acid 1 MG Tablet PO (09:54)
[2020-11-15] MEDS: Multivitamins,Ther W-Minerals Tablet 1 TABLET PO (09:54)
[2020-11-15] MEDS: Metoprolol(XL)Succ 100 MG Tablet PO (09:54)
[2020-11-15] MEDS: Amiodarone 200 MG Tablet PO ×2 (09:54→20:10)
[2020-11-15] MEDS: DULoxetine Hcl 30 MG Capsule PO (09:54)
--- NOTE | 2020-11-15 10:27 | CASEMGMT ---
Patient does not have a Healthcare Power of Bell Clerk or Healthcare Living Will on file at [facility]. SW will notify patient. Sylvie HAMILTON
--- NOTE | 2020-11-15 10:59 | CASEMGMT ---
Assessment- SW completed assessment with patient at bedside. SW also confirmed address and phone numbers. Living situation- Patient lives alone in a 2 story home with 6 steps to enter at one entrance and 12 at another entrance. PCP: Dr Del Rosario Specialists: None Pharmacy: [facility] DME: Extended tub bench, walker, and grab bars ADL's/IADL's: Prior to patient's fall he was independent with bathing, ambulating, dressing, toileting, house keeping, bills, and his medications. He also normally drives if he has a car. Past SNF/rehab: [facility] Past HH: [facility] LW: No. POA: No Plan: SW explained that generally patient's with hip fractures end up needing to go to intermediate facilities for rehab. Patient said he would prefer to go home at discharge and have home health come and see him. SW told him we can see how he does with therapy, but with him having 6-12 entry steps and living alone he will likely need a SNF. ROLANDO told him ROLANDO and RN DUANE will follow and assist. SW then asked patient about his alcohol consumption. He said he is doing fine. SW tried to pry a little more, then patient said he does not feel well and doesn't want to talk anymore. Sylvie ROSARIO MSW
--- NOTE | 2020-11-15 11:02 | CON.PCM_ITS ---
Reason for Consult Date of Consultation: 11/15/20 Reason for Consultation: Left hip pain History of Present Illness: The patient is a 65 year old M [fell on his left hip last evening suffering a displaced subcapital fracture. He was admitted via the ED by the hospitalist and orthopedic consultation was sought. At the time of my evaluation, he complained of left hip pain and nausea. He denied abdominal pain. He denied N/T/P. He has been cleared for surgery by cardiology. PMHx, PSHX, Family Hx, ROS, Allergies and Medications reviewed per the intake H& P.] Past Medical History Past Medical History (Chronic Problems): Chronic Problems (Last Reviewed 11/15/20 @ 05:[address] Luciano Murphy MD) Dyspnea (Chronic) Stage 1 mild COPD by GOLD classification (Chronic) FEV1 87% of predicted History of left heart catheterization (LHC) (Chronic 01/21/19) Will obtain old film from [place] from 2 years ago to see if LAD lesion has worsened. Apparently pt underwent FFR of this portion of LAD and was found to be 0.81 so no intervention was performed. He has had no AICD discharges since his cath at [place]. Intervention of this lesion is at moderate risk of the stent covering over DIAG, as well as eccentric calcium in proximal LAD sequeing into mid LAD lesion. I believe we could place the stent at the ostium of the mid LAD with minimal encroachment into DIAG, but pt has no anginal symptoms or change in his exercise capacity. I will obtain old films from [place] to compare mid LAD stenosis; if it appears to be worse, then will return for elective PCI of LAD with double wires. Hyperlipidemia (Chronic) Atherosclerotic heart disease of [place] coronary artery without angina pectoris (Chronic) 12/28/1999 distal RCA was thrombectomized and stent placed; 04/01/2000 PTCA of distal RCA and ostium of the PDA for in-stent stenosis. LHC 11/2005. Ischemic cardiomyopathy (Chronic) Ventricular tachycardia (Chronic) 10/30/17 tsfer to [facility] with [place] storm Premature heartbeats (Chronic) Presence of automatic (implantable) cardiac defibrillator (Chronic 10/31/17) ICD Implant: 11/2005; ICD generator replacement 08/23/2010 History of coronary artery stent placement (Chronic 02/17/19) 12/28/1999 distal RCA was thrombectomized and stent placed; 04/01/2000 PTCA of distal RCA and ostium of the PDA for in-stent stenosis. Successful PTCA/DEMETRIO to Mid LAD with a 3.0 x 28 Promus Synergy, post dilated in middle stent with a 3.0 x 12 NC Balloon; 75%-->0%, no dissection. Successful PTCA/DEMETRIO Mid LAD across bifurcation of DIAG#1 and telescoped into mid LAD stent with a 4.0 x 28 Promus Synergy, post dilated in the proximal LAD with a 4.0 x 8 and a 4.5 x 8 NC Balloon; 855-->0%, no dissection. 02/17/2019 Successful PCI with PTCA to the ostial DIAG #1 through struts of LAD stent with a 2.5 x 8 Ballloon; 70%-->30%, no dissection. NO additional stenting needed or attempted. Benign hypertension (Chronic) Tobacco user (Chronic) History of alcoholism (Chronic) Medical History: Medical History (Last Reviewed 11/15/20 @ 05:[address] Luciano Murphy MD) Urinary tract infection (Inactive) N39.0 Dehydration (Inactive) E86.0 Declining functional status (Inactive) R53.81 Cellulitis and abscess of upper extremity (Inactive) L03.119, L02.419 left elbow abscess Dyspnea (Chronic) R06.00 Stage 1 mild COPD by GOLD classification (Chronic) J44.9 FEV1 87% of predicted Hyperlipidemia (Chronic) E78.5 Atherosclerotic heart disease of [place] coronary artery without angina pectoris (Chronic) I25.10 12/28/1999 distal RCA was thrombectomized and stent placed; 04/01/2000 PTCA of distal RCA and ostium of the PDA for in-stent stenosis. [facility] 11/2005. Ischemic cardiomyopathy (Chronic) I25.5 Ventricular tachycardia (Chronic) I47.2 10/30/17 tsfer to [facility] with [place] storm Premature heartbeats (Chronic) I49.40 Benign hypertension (Chronic) I10 Tobacco user (Chronic) Z72.0 History of alcoholism (Chronic) F10.21 History of echocardiogram Onset Date: 04/03/17 Z92.89 EF 40-45% History of stress test Onset Date: 02/16/10 Z92.89 Allergies Iodine and Iodide Containing Produc Allergy (Severe, Verified 11/15/20 03:28) Rash ezetimibe [From Zetia] Adverse Reaction (Severe, Verified 11/15/20 03:28) Myalgias Afwhvyr-Sac-Uit Reductase Inhibitor Adverse Reaction (Severe, Verified 11/15/20 03:28) Elevated Liver Enzymes Home Medications: Ambulatory Orders Medication Instructions Recorded nitroglycerin 0.4 mg sublingual 0.4 mg SUBLINGUAL Q5M PRN #25 tab 05/08/18 tablet Multivit-Min/FA/Lycopen/Lutein 1 ea PO QODAY 12/13/19 [Centrum Silver Men Tablet] aspirin 81 mg tablet,delayed 81 mg PO DAILY #90 tab 01/04/20 release amiodarone 200 mg tablet 200 mg PO BID #180 tab 06/15/20 clopidogrel 75 mg tablet 75 mg PO DAILY 09/15/20 buspirone 10 mg tablet 10 mg PO TID 10/03/20 metoprolol succinate 100 mg 100 mg PO DAILY #90 tab 11/02/20 tablet,extended release 24 hr Duloxetine HCl 30 mg PO DAILY 11/15/20 Surgical History: Surgical History (Last Reviewed 11/15/20 @ 05:[address] Luciano Murphy MD) History of left heart catheterization (LHC) (Chronic) Onset Date: 01/21/19 Z98.890 Will obtain old film from [place] from 2 years ago to see if LAD lesion has worsened. Apparently pt underwent FFR of this portion of LAD and was found to be 0.81 so no intervention was performed. He has had no AICD discharges since his cath at [place]. Intervention of this lesion is at moderate risk of the stent covering over DIAG, as well as eccentric calcium in proximal LAD sequeing into mid LAD lesion. I believe we could place the stent at the ostium of the mid LAD with minimal encroachment into DIAG, but pt has no anginal symptoms or change in his exercise capacity. I will obtain old films from [place] to compare mid LAD stenosis; if it appears to be worse, then will return for elective PCI of LAD with double wires. Presence of automatic (implantable) cardiac defibrillator (Chronic) Onset Date: 10/31/17 Z95.810 ICD Implant: 11/2005; ICD generator replacement 08/23/2010 History of coronary artery stent placement (Chronic) Onset Date: 02/17/19 Z95.5 12/28/1999 distal RCA was thrombectomized and stent placed; 04/01/2000 PTCA of distal RCA and ostium of the PDA for in-stent stenosis. Successful PTCA/DEMETRIO to Mid LAD with a 3.0 x 28 Promus Synergy, post dilated in middle stent with a 3.0 x 12 NC Balloon; 75%-->0%, no dissection. Successful PTCA/DEMETRIO Mid LAD across bifurcation of DIAG#1 and telescoped into mid LAD stent with a 4.0 x 28 Promus Synergy, post dilated in the proximal LAD with a 4.0 x 8 and a 4.5 x 8 NC Balloon; 855-->0%, no dissection. 02/17/2019 Successful PCI with PTCA to the ostial DIAG #1 through struts of LAD stent with a 2.5 x 8 Ballloon; 70%-->30%, no dissection. NO additional stenting needed or attempted. Hx of knee surgery Z98.890 Surgical History: angioplasty, pacemaker implantation, - - right knee arthroscopy Psychiatric History: No pertinent psych hx Smoking Status: Current every day smoker Tobacco Use: Cigarettes Alcohol: Heavy Drugs: None - *Family History Maternal Family History: Family History (Last Reviewed 11/15/20 @ 05:[address] Luciano Murphy MD) Grandmother Myocardial infarction Grandfather Myocardial infarction Patient Problems: Active and Suspected Problems (Last Reviewed 11/15/20 @ 05:[address] Luciano Murphy MD) Femoral neck fracture (Acute) - Physical Exam Vitals/I&O's: Vital Signs Temp Pulse Resp BP Pulse Ox 97.8 F 81 18 125/61 H 97 11/15/20 09:20 11/15/20 09:54 11/15/20 09:20 11/15/20 09:54 11/15/20 09:20 Oxygen Delivery Method Room Air Weight: 206 lb 12.697 oz Body Mass Index (BMI) 27.3 Intake and Output for Last 24 Hours 11/13/20 11/14/20 11/15/20 23:59 23:59 23:59 Intake Total 0 / 0 Output Total 0 / 0 Balance 0 / 0 General: Alert, Oriented x3, Cooperative Abdomen: Soft, Non Tender, Non-Distended Extremities: No clubbing, No cyanosis, No edema, Capillary Refill Less than 3 Seconds, No Calf Tenderness, Tenderness - About the left hip with shortening and external rotation of the LLE. ROM not tested due to known fracture. Neurological: Neuro grossly intact Microbiology Past 72 Hours 11/15/20 04:17 Mucosa - Nose SARS-CoV-2 Antigen (Rapid) - Final Laboratory Results 11/15/20 04:00: Vitamin D 25-Hydroxy 14.3 11/15/20 04:15: WBC 16.3 H, RBC 4.39 L, Hgb 15.6, Hct 43.3, MCV 98.6 H, MCH 35.5 H, MCHC 36.0, RDW Std Deviation 49.2 H, RDW Coeff of [place] 13.4, Plt Count 234, MPV 9.4, Immature Gran % (Auto) 0.700, Neut % (Auto) 82.8 H, Lymph % (Auto) 7.3 L, [place] % (Auto) 8.8, Eos % (Auto) 0.2, Baso % (Auto) 0.2, Absolute Neuts (auto) 13.5 H, Absolute Lymphs (auto) 1.18, Nucleated RBC % 0 11/15/20 04:15: PT 13.2, INR 1.1 11/15/20 04:15: Sodium 124 L, Potassium 4.4, Chloride 94 L, Carbon Dioxide 22.0, Anion Gap 8, BUN 7, Creatinine 0.81, Estim Creat Clear Calc 104.12, Est GFR (MDRD) Af Amer 122, Est GFR (MDRD) Non-Af 101, BUN/Creatinine Ratio 8.6 L, Glucose 128 H, Calcium 8.5 Current Medications Acetaminophen (Acetaminophen 325 Mg Tablet) 650 mg PO Q6H PRN PRN PRN Reason: Pain Score 1-10/Temp > 100.7 F Amiodarone HCl (Amiodarone 200 Mg Tablet) 200 mg PO BID [facility] Last Admin: 11/15/20 09:54 Dose: 200 mg Documented by: Buspirone HCl (Buspirone 5 Mg Tablet) 10 mg PO TID [facility] Last Admin: 11/15/20 07:23 Dose: 10 mg Documented by: Cyclobenzaprine HCl (Cyclobenzaprine Hcl 5 Mg Tablet) 5 mg PO TID PRN PRN PRN Reason: MUSCLE SPASM Last Admin: 11/15/20 09:54 Dose: 5 mg Documented by: Duloxetine HCl (Duloxetine Hcl 30 Mg Capsule) 30 mg PO DAILY [facility] Last Admin: 11/15/20 09:54 Dose: 30 mg Documented by: Folic Acid (Folic Acid 1 Mg Tablet) 1 mg PO DAILY@0800 [facility] Stop: 11/17/20 08:01 Last Admin: 11/15/20 09:54 Dose: 1 mg Documented by: Cefazolin Sodium 2 gm/ Sodium (Chloride) 110 mls @ 150 mls/hr IV X1 ONE Stop: 11/15/20 14:43 Lorazepam (Lorazepam 1 Mg Tablet) 2 mg PO Q2H PRN PRN; Protocol PRN Reason: CIWA score > 8 but <15 Lorazepam (Lorazepam 1 Mg Tablet) 2 mg PO UD PRN; Protocol PRN Reason: CIWA score >/=15. Lorazepam (Lorazepam 2 Mg/Ml Syringe) 2 mg IV Q2H PRN PRN; Protocol PRN Reason: CIWA score > 8 but <15 Lorazepam (Lorazepam 2 Mg/Ml Syringe) 2 mg IV UD PRN; Protocol PRN Reason: CIWA score >/=15. Metoprolol Succinate (Metoprolol(Xl)Succ 100 Mg Tablet) 100 mg PO DAILY [facility] Last Admin: 11/15/20 09:54 Dose: 100 mg Documented by: Morphine Sulfate (Morphine 4 Mg/Ml Syringe) 4 mg IV Q3H PRN PRN PRN Reason: Pain Score 6-10 Last Admin: 11/15/20 09:55 Dose: 4 mg Documented by: Multivitamins/Minerals (Multivitamins,Ther W-Minerals Tablet) [facility] Last Admin: 11/15/20 09:54 Dose: 1 tablet Documented by: Nutritional Formula (Lactose Free) (Ensure Enlive 120 Ml Liquid) [facility] [place] Admin: 11/15/20 08:06 Dose: Not Given Documented by: Ondansetron HCl (Ondansetron 4 Mg/2 Ml Vial) 4 mg IV Q8H PRN PRN PRN Reason: NAUSEA/VOMITING Last Admin: 11/15/20 09:19 Dose: 4 mg Documented by: Senna/Docusate Sodium (Senna/Docusate Sodium 1 Tablet) 2 tablet PO BID PRN PRN PRN Reason: Constipation Sodium Chloride (0.9% Saline Lock 10 Ml Syringe) 10 - 40 ml IV UD PRN PRN Reason: SALINE FLUSH Last Admin: 11/15/20 09:55 Dose: 10 ml Documented by: Thiamine HCl (Thiamine Hydrochloride 100 Mg Tablet) 100 mg PO BIDCM JENNIFER Stop: 11/17/20 17:01 Last Admin: 11/15/20 09:54 Dose: 100 mg Documented by: Assessment/Plan All Active Problems (Last Reviewed 11/15/20 @ 05:[address] Luciano Murphy MD) Femoral neck fracture (Acute) Displaced, subcapital fracture left hip At this time, I have recommended a hemiarthroplasty of the left hip to treat this fracture. I reviewed the potential risks, benefits and complications of surgery. I reviewed both non-operative and operative treatment options. He does wish to proceed. Signed consent was obtained. Pre-operative antibiotic will be Ancef 2 gms IV given prison librarian to OR. Postoperatively, he will be on Lovenox 40 mg SQ x 14 days for DVT prophylaxis.
[2020-11-15] MEDS: Haloperidol Lactate 5 MG/ML Vial IV (11:42)
[2020-11-15 11:59] LABS: AST(SGOT) 63 U/L (15-37); Alanine Aminotransfer ALT/SGPT 80 U/L (16-61); Albumin, Serum 3.5 g/dL (3.2-5.0); Alkaline Phosphatase 80 U/L (45-117); Bilirubin, Direct 0.18 mg/dL (0.00-0.30); Globulin 3.4 g/dL (2.2-4.2); Protein, Total 6.9 g/dL (6.4-8.2)
--- NOTE | 2020-11-15 12:39 | PCM.HOSP.N ---
Hospitalist Note Patient admitted early this morning status post fall and right hip pain. X-rays in the emergency department confirmed left subcapital femoral neck fracture. Per the patient he had drank half a bottle of wine prior to his fall. Patient has a significant cardiac history and was seen by cardiology. Echo was performed and the patient was cleared by cardiology for surgery. He was seen by Dr. Merritt from orthopedic surgery and his recommendation was a left hemiarthroplasty which will be done this afternoon at 2:00. Problem list Acute displaced subcapital left hip fracture CAD status post angioplasty and stenting of the RCA, RPDA, LAD Ischemic cardiomyopathy [place] storm status post ICD placement Hypertension Hyperlipidemia Depression Alcoholism Tobacco abuse
[2020-11-15] MEDS: Lactated Ringers 1,000 ML 100 ML IV (13:30)
[2020-11-16] VITALS (11 sets, daily range): BP systolic 102–130; BP diastolic 49–74; PULSE 64–77; RESP 14–16; TEMP 36.9; O2SAT 93–98
[2020-11-16] MEDS: Morphine 4 MG/ML Syringe IV ×4 (01:12→21:21)
[2020-11-16 06:34] LABS: Absolute Lymphocyte Count 1.47 X10^3/uL (0.83-4.51); Absolute Neutrophil Count 7.5 X10^3/uL (2.0-7.7); Basophil# 0.04 X10^3/uL; Basophil% 0.4 % (0-1); Eosinophil# 0.09 X10^3/uL; Eosinophils% 0.8 % (0-5); Hematocrit 43.1 % (40-54); Hemoglobin 15.1 g/dL (13.0-16.5); Lymphocyte # 1.47 X10^3/ul (4.0); Lymphocyte % 13.6 % (19-41); Mean Corpuscular Hgb 35.3 pg (27.0-32.0); Mean Corpuscular Volume 100.7 fL (80-94); Mean Platelet Vol. 9.9 fl (6.2-12.0); Monocyte# 1.61 X10^3/uL; Monocyte% 14.9 % (0-10); NRBC Flagged by Analyzer 0 % (0-5); Neutrophil # 7.54 X10^3/uL (2.7-7.7); Neutrophil % 69.7 % (47-70); POSITIVE DIFFERENTIAL YES; Platelet Count 197 K/mm3 (150-450); RBC Distribution Width CV 13.9 % (11.6-14.6); RBC Distribution Width SD 51.7 fl (35.1-43.9); Red Blood Count 4.28 M/mm3 (4.6-6.2); White Blood Count 10.8 K/mm3 (4.4-11.0)
[2020-11-16 06:42] LABS: Differential Indicated SCAN CRITERIA MET
[2020-11-16] MEDS: busPIRone 5 MG Tablet 10 MG PO ×3 (06:57→21:20)
[2020-11-16 07:08] LABS: Anion Gap 4 (5-15); BUN 12 mg/dL (7-18); BUN/Creat Ratio 14.7 RATIO (10-20); Chloride 99 mmol/L (98-107); Creatinine, Serum 0.82 mg/dL (0.70-1.30); EST Glomerular Filtration Rate 100 mL/min (>60); Est Glom Filt Rate - Afr Amer 122 mL/min (>60); Estimated Creatinine Clearance 102.85 ml/min; Glucose 101 mg/dL (74-106); Potassium 4.4 mmol/L (3.5-5.1); Sodium Level 129 mmol/L (136-145)
[2020-11-16] MEDS: Folic Acid 1 MG Tablet PO (08:48)
[2020-11-16] MEDS: Multivitamins,Ther W-Minerals Tablet 1 TABLET PO (08:48)
[2020-11-16] MEDS: cycloBENZAPRine HCl 5 MG TABLET PO ×3 (08:48→21:19)
[2020-11-16] MEDS: Thiamine Hydrochloride 100 MG Tablet PO ×2 (08:49→17:49)
[2020-11-16] MEDS: DULoxetine Hcl 30 MG Capsule PO (08:49)
[2020-11-16] MEDS: Amiodarone 200 MG Tablet PO ×2 (08:49→21:20)
[2020-11-16] MEDS: Metoprolol(XL)Succ 100 MG Tablet PO (08:49)
--- NOTE | 2020-11-16 10:41 | PN_ITS ---
<Jesus Mariessica [employer] - Last Filed: 11/16/20 11:14> Patient Problems: Active and Suspected Problems (Last Reviewed 11/15/20 @ 05:[address] Luciano choi MD) Femoral neck fracture (Acute) Subjective: Patient seen and examined. Denies symptoms or complaints. Denies significant pain while at rest. Denies withdrawal symptoms. - Physical Exam Vitals/I&O's: Vital Signs Temp Pulse Resp BP Pulse Ox 98.4 F 76 14 125/74 H 93 11/16/20 08:45 11/16/20 08:49 11/16/20 08:45 11/16/20 08:49 11/16/20 08:45 Oxygen Delivery Method Room Air Weight: 206 lb 12.697 oz Body Mass Index (BMI) 27.3 Intake and Output for Last 24 Hours 11/14/20 11/15/20 11/16/20 23:59 23:59 23:59 Intake Total 640 / 1000 540 / 540 Output Total 1375 / 3100 2400 / 2400 Balance -735 / -2100 -1860 / -1860 General: Alert, Oriented x3, Cooperative HEENT: Atraumatic, PERRLA, EOMI, Normocephalic Neck: Supple, No JVD, Negative Carotid Bruits Lungs: Clear to auscultation, Normal air movement Cardiovascular: Regular rate, No murmurs Abdomen: Bowel Sounds Present, Soft, Non Tender, Non-Distended Extremities: No clubbing, No cyanosis, No edema Skin: No rashes, No breakdown Musculoskeletal: Tenderness - Left hip Neurological: Cranial nerves II-XII grossly intact, Neuro grossly intact Psych/Mental Status: Normal Affect, Appropriate Microbiology Past 72 Hours 11/15/20 04:17 Mucosa - Nose SARS-CoV-2 Antigen (Rapid) - Final Laboratory Results 11/15/20 11:33: Total Bilirubin 0.60, Direct Bilirubin 0.18, AST 63 H, ALT 80 H, Alkaline Phosphatase 80, Total Protein 6.9, Albumin 3.5, Globulin 3.4 11/15/20 11:33: Blood Type A POSITIVE, Antibody Screen NEGATIVE 11/16/20 05:40: WBC 10.8, RBC 4.28 L, Hgb 15.1, Hct 43.1, MCV 100.7 H, MCH 35.3 H, MCHC 35.0, RDW Std Deviation 51.7 H, RDW Coeff of Yoli 13.9, Plt Count 197, MPV 9.9, Immature Gran % (Auto) 0.600, Neut % (Auto) 69.7, Lymph % (Auto) 13.6 L , Yancey % (Auto) 14.9 H, Eos % (Auto) 0.8, Baso % (Auto) 0.4, Absolute Neuts (auto) 7.5, Absolute Lymphs (auto) 1.47, Nucleated RBC % 0 11/16/20 05:40: Sodium 129 L, Potassium 4.4, Chloride 99, Carbon Dioxide 26.0, Anion Gap 4 L, BUN 12, Creatinine 0.82, Estim Creat Clear Calc 102.85, Est GFR (MDRD) Af Amer 122, Est GFR (MDRD) Non-Af 100, BUN/Creatinine Ratio 14.7, Glucose 101, Calcium 9.0 Current Medications Acetaminophen (Acetaminophen 325 Mg Tablet) 650 mg PO Q6H PRN PRN PRN Reason: Pain Score 1-10/Temp > 100.7 F Last Admin: 11/15/20 20:09 Dose: 650 mg Documented by: Amiodarone HCl (Amiodarone 200 Mg Tablet) 200 mg PO BID [facility] Last Admin: 11/16/20 08:49 Dose: 200 mg Documented by: Buspirone HCl (Buspirone 5 Mg Tablet) 10 mg PO TID [facility] Last Admin: 11/16/20 06:57 Dose: 10 mg Documented by: Cyclobenzaprine HCl (Cyclobenzaprine Hcl 5 Mg Tablet) 5 mg PO TID PRN PRN PRN Reason: MUSCLE SPASM Last Admin: 11/16/20 08:48 Dose: 5 mg Documented by: Duloxetine HCl (Duloxetine Hcl 30 Mg Capsule) 30 mg PO DAILY [facility] Last Admin: 11/16/20 08:49 Dose: 30 mg Documented by: Folic Acid (Folic Acid 1 Mg Tablet) 1 mg PO DAILY@0800 [facility] Stop: 11/17/20 08:01 Last Admin: 11/16/20 08:48 Dose: 1 mg Documented by: Lorazepam (Lorazepam 1 Mg Tablet) 2 mg PO Q2H PRN PRN; Protocol PRN Reason: CIWA score > 8 but <15 Lorazepam (Lorazepam 1 Mg Tablet) 2 mg PO UD PRN; Protocol PRN Reason: CIWA score >/=15. Lorazepam (Lorazepam 2 Mg/Ml Syringe) 2 mg IV Q2H PRN PRN; Protocol PRN Reason: CIWA score > 8 but <15 Lorazepam (Lorazepam 2 Mg/Ml Syringe) 2 mg IV UD PRN; Protocol PRN Reason: CIWA score >/=15. Metoprolol Succinate (Metoprolol(Xl)Succ 100 Mg Tablet) 100 mg PO DAILY [facility] Last Admin: 11/16/20 08:49 Dose: 100 mg Documented by: Morphine Sulfate (Morphine 4 Mg/Ml Syringe) 4 mg IV Q3H PRN PRN PRN Reason: Pain Score 6-10 Last Admin: 11/16/20 06:56 Dose: 4 mg Documented by: Multivitamins/Minerals (Multivitamins,Ther W-Minerals Tablet) [facility] Last Admin: 11/16/20 08:48 Dose: 1 tablet Documented by: Nutritional Formula (Lactose Free) (Ensure Enlive 120 Ml Liquid) [facility] Last Admin: 11/16/20 08:52 Dose: 120 ml Documented by: Ondansetron HCl (Ondansetron 4 Mg/2 Ml Vial) 4 mg IV Q8H PRN PRN PRN Reason: NAUSEA/VOMITING Last Admin: 11/15/20 09:19 Dose: 4 mg Documented by: Senna/Docusate Sodium (Senna/Docusate Sodium 1 Tablet) 2 tablet PO BID PRN PRN PRN Reason: Constipation Sodium Chloride (0.9% Saline Lock 10 Ml Syringe) 10 - 40 ml IV UD PRN PRN Reason: SALINE FLUSH Last Admin: 11/15/20 18:03 Dose: 10 ml Documented by: Thiamine HCl (Thiamine Hydrochloride 100 Mg Tablet) [facility] Stop: 11/17/20 17:01 Last Admin: 11/16/20 08:49 Dose: 100 mg Documented by: Medical Necessity - Tobacco Use Smoking Status: Current every day smoker Tobacco Use: Cigarettes Assessment/Plan All Active Problems (Last Reviewed 11/15/20 @ 05:[address] Luciano Murphy MD) Femoral neck fracture (Acute) 1. Acute traumatic displaced subcapital fracture left hip, secondary to mechanical fall prior to admission-cleared for OR by cardiology. Orthopedic medicine consulted. Plan for OR 11/17/2020. As needed pain regimen. PT/OT. Plavix on hold. 2. Ischemic cardiomyopathy/CAD with history of stents-status post ICD. Echocardiogram demonstrates an EF of 45%. Continue metoprolol. Aspirin, Plavix on hold. Cardiology consulted. Follows with Dr. Glynn. 3. Alcohol dependence-[facility] protocol. Thiamine, folic acid, multivitamin supplementation. No current withdrawal symptoms. 4. Tobacco dependence-encouraged cessation. Declines nicotine replacement patch. 5. Hypertension-stable, continue metoprolol. 6. History of ventricular tachycardia-on amiodarone. Status post ICD. ICD interrogation completed and was unremarkable. 7. Anxiety/depression-on buspirone, duloxetine. 8. Hyponatremia-secondary to #3. Improved. DVT prophylaxis- SCDs This patient was seen by HI Dubose under the supervision of Dr. Turcios. <Danita Turcios - Last Filed: 11/16/20 15:22> Subjective: I agree with above and the following is a representation of my independent history and physical exam Patient only complains of some hip pain. His nausea has resolved. He denies any alcohol withdrawal symptoms. - Physical Exam Vitals/I&O's: Vital Signs Temp Pulse Resp BP Pulse Ox 98.5 F 68 14 125/67 H 94 11/16/20 14:54 11/16/20 14:54 11/16/20 14:54 11/16/20 14:54 11/16/20 14:54 Oxygen Delivery Method Room Air Weight: 93.8 kg Body Mass Index (BMI) 27.3 Intake and Output for Last 24 Hours 11/14/20 11/15/20 11/16/20 23:59 23:59 23:59 Intake Total 640 / 1000 1140 / 1140 Output Total 1375 / 3100 2800 / 2800 Balance -735 / -2100 -1660 / -1660 General: Alert, Oriented x3, Cooperative, No apparent distress, Well developed, Well nourished, - - Upper middle-aged white male lying in bed, drinking an Ensure, appears comfortable HEENT: Atraumatic, PERRLA, EOMI, Normocephalic, EAC Clear Oral: Moist Mucosa Neck: Supple, Trachea Midline Lungs: No rhonchi, No wheeze, No rales, Diminished Cardiovascular: Regular rate, Regular Rhythm, Normal S1, Normal S2, No Ectopic Activity, Murmur, No rub noted, No Gallop Abdomen: Bowel Sounds Present, Soft, Non Tender, Non-Distended Extremities: No clubbing, No cyanosis, No edema, Capillary Refill Less than 3 Seconds, Peripheral Pulses Normal Musculoskeletal: - - Left hip is externally rotated, shortened and flexed in the bed Neurological: Cranial nerves II-XII grossly intact, Neuro grossly intact Psych/Mental Status: Normal Affect, Appropriate Microbiology Past 72 Hours 11/15/20 04:17 Mucosa - Nose SARS-CoV-2 Antigen (Rapid) - Final Laboratory Results 11/16/20 05:40: WBC 10.8, RBC 4.28 L, Hgb 15.1, Hct 43.1, MCV 100.7 H, MCH 35.3 H, MCHC 35.0, RDW Std Deviation 51.7 H, RDW Coeff of Yoli 13.9, Plt Count 197, MPV 9.9, Immature Gran % (Auto) 0.600, Neut % (Auto) 69.7, Lymph % (Auto) 13.6 L , Yancey % (Auto) 14.9 H, Eos % (Auto) 0.8, Baso % (Auto) 0.4, Absolute Neuts (auto) 7.5, Absolute Lymphs (auto) 1.47, Nucleated RBC % 0 11/16/20 05:40: Sodium 129 L, Potassium 4.4, Chloride 99, Carbon Dioxide 26.0, Anion Gap 4 L, BUN 12, Creatinine 0.82, Estim Creat Clear Calc 102.85, Est GFR (MDRD) Af Amer 122, Est GFR (MDRD) Non-Af 100, BUN/Creatinine Ratio 14.7, Glucose 101, Calcium 9.0 Current Medications Acetaminophen (Acetaminophen 325 Mg Tablet) 650 mg PO Q6H PRN PRN PRN Reason: Pain Score 1-10/Temp > 100.7 F Last Admin: 11/15/20 20:09 Dose: 650 mg Documented by: Amiodarone HCl (Amiodarone 200 Mg Tablet) 200 mg PO BID [facility] Last Admin: 11/16/20 08:49 Dose: 200 mg Documented by: Buspirone HCl (Buspirone 5 Mg Tablet) 10 mg PO TID [facility] Last Admin: 11/16/20 13:25 Dose: 10 mg Documented by: Cyclobenzaprine HCl (Cyclobenzaprine Hcl 5 Mg Tablet) 5 mg PO TID PRN PRN PRN Reason: MUSCLE SPASM Last Admin: 11/16/20 15:00 Dose: 5 mg Documented by: Duloxetine HCl (Duloxetine Hcl 30 Mg Capsule) 30 mg PO DAILY [facility] Last Admin: 11/16/20 08:49 Dose: 30 mg Documented by: Folic Acid (Folic Acid 1 Mg Tablet) 1 mg PO DAILY@0800 [facility] Stop: 11/17/20 08:01 Last Admin: 11/16/20 08:48 Dose: 1 mg Documented by: Lorazepam (Lorazepam 1 Mg Tablet) 2 mg PO Q2H PRN PRN; Protocol PRN Reason: CIWA score > 8 but <15 Lorazepam (Lorazepam 1 Mg Tablet) 2 mg PO UD PRN; Protocol PRN Reason: CIWA score >/=15. Lorazepam (Lorazepam 2 Mg/Ml Syringe) 2 mg IV Q2H PRN PRN; Protocol PRN Reason: CIWA score > 8 but <15 Lorazepam (Lorazepam 2 Mg/Ml Syringe) 2 mg IV UD PRN; Protocol PRN Reason: CIWA score >/=15. Metoprolol Succinate (Metoprolol(Xl)Succ 100 Mg Tablet) 100 mg PO DAILY [facility] Last Admin: 11/16/20 08:49 Dose: 100 mg Documented by: Morphine Sulfate (Morphine 4 Mg/Ml Syringe) 4 mg IV Q3H PRN PRN PRN Reason: Pain Score 6-10 Last Admin: 11/16/20 06:56 Dose: 4 mg Documented by: Multivitamins/Minerals (Multivitamins,Ther W-Minerals Tablet) [facility] Last Admin: 11/16/20 08:48 Dose: 1 tablet Documented by: Nutritional Formula (Lactose Free) (Ensure Enlive 120 Ml Liquid) 120 ml PO TIDCM [facility] Last Admin: 11/16/20 13:25 Dose: 120 ml Documented by: Ondansetron HCl (Ondansetron 4 Mg/2 Ml Vial) 4 mg IV Q8H PRN PRN PRN Reason: NAUSEA/VOMITING Last Admin: 11/15/20 09:19 Dose: 4 mg Documented by: Senna/Docusate Sodium (Senna/Docusate Sodium 1 Tablet) 2 tablet PO BID PRN PRN PRN Reason: Constipation Sodium Chloride (0.9% Saline Lock 10 Ml Syringe) 10 - 40 ml IV UD PRN PRN Reason: SALINE FLUSH Last Admin: 11/15/20 18:03 Dose: 10 ml Documented by: Thiamine HCl (Thiamine Hydrochloride 100 Mg Tablet) 100 mg PO BIDCM [facility] Stop: 11/17/20 17:01 Last Admin: 11/16/20 08:49 Dose: 100 mg Documented by: Assessment/Plan ASSESSMENT Acute displaced subcapital left hip fracture CAD status post angioplasty and stenting of the RCA, RPDA, LAD Ischemic cardiomyopathy VT storm status post ICD placement Hypertension Hyperlipidemia Depression Alcoholism Tobacco abuse PLAN -Patient was cleared by cardiology to go to the OR -Initial intent was for hemiarthroplasty on 11/15/2020 but the patient had taken the Plavix the night before and therefore surgery was delayed -OR in a.m. tomorrow -Continue home medications -Monitor for signs of withdrawal Inpatient E&M: 21497 Subs Hosp L2
[2020-11-16] MEDS: 0.9% Saline Lock 10 ML Syringe IV ×2 (17:49→21:25)
[2020-11-17] VITALS (12 sets, daily range): BP systolic 92–148; BP diastolic 61–83; PULSE 64–95; RESP 16–18; TEMP 35.7–36.7; O2SAT 93–97; BMI 27.3
[2020-11-17] MEDS: Morphine 4 MG/ML Syringe IV ×3 (00:29→19:01)
[2020-11-17] MEDS: 0.9% Saline Lock 10 ML Syringe IV (00:41)
[2020-11-17] MEDS: cycloBENZAPRine HCl 5 MG TABLET PO ×2 (03:27→21:18)
[2020-11-17 05:58] LABS: Absolute Lymphocyte Count 1.65 X10^3/uL (0.83-4.51); Basophil# 0.04 X10^3/uL; Basophil% 0.4 % (0-1); Eosinophil# 0.19 X10^3/uL; Eosinophils% 1.8 % (0-5); Hemoglobin 13.7 g/dL (13.0-16.5); Lymphocyte # 1.65 X10^3/ul (4.0); Lymphocyte % 15.7 % (19-41); Mean Corp Hgb Conc 34.3 g/dL (32-36); Mean Corpuscular Hgb 34.9 pg (27.0-32.0); Mean Platelet Vol. 10.2 fl (6.2-12.0); Monocyte# 1.52 X10^3/uL; Monocyte% 14.5 % (0-10); NRBC Flagged by Analyzer 0 % (0-5); Neutrophil # 6.99 X10^3/uL (2.7-7.7); Neutrophil % 66.5 % (47-70); POSITIVE DIFFERENTIAL YES; Platelet Count 189 K/mm3 (150-450); RBC Distribution Width SD 52.9 fl (35.1-43.9); Red Blood Count 3.92 M/mm3 (4.6-6.2); White Blood Count 10.5 K/mm3 (4.4-11.0)
[2020-11-17 06:11] LABS: Differential Indicated SCAN CRITERIA MET
[2020-11-17 06:27] LABS: Differential Comment SCANNED
[2020-11-17 06:33] LABS: Anion Gap 4 (5-15); BUN 15 mg/dL (7-18); BUN/Creat Ratio 20.5 RATIO (10-20); Calcium,Total 8.8 mg/dL (8.5-10.1); Chloride 99 mmol/L (98-107); Creatinine, Serum 0.73 mg/dL (0.70-1.30); EST Glomerular Filtration Rate 114 mL/min (>60); Est Glom Filt Rate - Afr Amer 138 mL/min (>60); Estimated Creatinine Clearance 115.53 ml/min; Glucose 109 mg/dL (74-106); Potassium 4.2 mmol/L (3.5-5.1); Sodium Level 128 mmol/L (136-145)
[2020-11-17] MEDS: Metoprolol(XL)Succ 100 MG Tablet PO (08:55)
--- NOTE | 2020-11-17 13:00 | FEM_PTH ---
PATIENT: FRANCIS MORTON LOC: MS3 U#:[id number] AGE/SX: 65/M ROOM: GA311 RE11/15/[address]: Dr. Adrian Au MD : [id number] BED: 1 DIS: 11/22/2020 SPEC #: [id number] RECD: 11/20/20 08:55 STATUS: LOREN REQ #: [id number] ANICETO: 11/17/20 13:[address]: Phillip Merritt DEPT: SURGICAL PATHOLOGY RECD BY: Kate Martin ENTERED: 11/20/20 09:33 SP TYPE: FEM HEAD OTHR DR: MD Dr. Shay Chacon III, MD Dr. Joseph Agyepong, MD Dr. Michael Knapic, DO Dr. Nicholas F Kotsonis, MD Tissues: Femoral region, NOS Procedures: Decalcification bone/plaque Surgery Specimen Level V Comments: @ Ordering doctor for DEC edited from to @ by ZION at 11/20/20 140 @ Ordering doctor for SUV edited from to @ by ZION at 11/20/20 140 @ Submitting doctor edited from to @ by ZION at 11/20/20 1406 HEADER OPERATION: Hemiarthroplasty PRE-OP DIAGNOSIS: Displaced subcapital fracture left hip TISSUE SUBMITTED: Left femoral head MICROSCOPIC DIAGNOSIS Left femoral head, hemiarthroplasty: Femoral head and detached pieces of bone with focal area of hemorrhage, clinically displaced subcapital fracture left hip osteoarthritic changes. Fragments of fibroadipose tissue, fibroconnective tissue, skeletal tissue and mildly reactive synovial tissue. GABRIELE:mary 11/23/2020 MICROSCOPIC DESCRIPTION Slides are reviewed. GROSS DESCRIPTION Received is one container designated left femoral head. The specimen consists of a femoral head measuring 5 x 5 x 5.5 cm. Resection margin is irregular and hemorrhagic. The articular surface is smooth. Also present in the container are two detached pieces of bone measuring in aggregate 4 x 4 x 2 cm. Also present in the container are two detached pieces of soft tissue measuring in aggregate 4 x 3.5 x 1 cm. Outside [employer] sections are submitted in three cassettes as follows: 1 - soft tissue, 2 - detached pieces of bone, 3 - femoral head. Cassettes 2 & 3 are submitted after decalcification. / GABRIELE:mary 11/20/20 TC:5 CPT: 63651, [id number]
[2020-11-17] MEDS: Lactated Ringers 1,000 ML 100 ML IV ×3 (13:30→21:47)
--- NOTE | 2020-11-17 13:33 | PCM.PROGNOTE ---
Patient Problems: Active and Suspected Problems (Last Reviewed 11/15/20 @ 05:[address] Luciano Murphy MD) Femoral neck fracture (Acute) Subjective: Patient seen and examined. Reports pain is well controlled. Plan for OR this afternoon. Denies current symptoms or complaints. - Physical Exam Vitals/I&O's: Vital Signs Temp Pulse Resp BP Pulse Ox 97.3 F L 66 16 124/69 H 96 11/17/20 08:54 11/17/20 08:55 11/17/20 08:54 11/17/20 08:54 11/17/20 08:54 Oxygen Delivery Method Room Air Weight: 206 lb 12.697 oz Body Mass Index (BMI) 27.3 Intake and Output for Last 24 Hours 11/15/20 11/16/20 11/17/20 23:59 23:59 23:59 Intake Total 640 / 1000 1590 / 1590 0 / 0 Output Total 1375 / 3100 3325 / 3725 725 / 725 Balance -735 / -2100 -1735 / -2135 -725 / -725 General: Alert, Oriented x3, Cooperative HEENT: Atraumatic, PERRLA, EOMI, Normocephalic Neck: Supple, No JVD, Negative Carotid Bruits Lungs: Clear to auscultation, Normal air movement Cardiovascular: Regular rate, No murmurs Abdomen: Bowel Sounds Present, Soft, Non Tender, Non-Distended Extremities: No clubbing, No cyanosis, No edema, Capillary Refill Less than 3 Seconds Skin: No rashes, No breakdown Musculoskeletal: Tenderness - Left hip Neurological: Cranial nerves II-XII grossly intact, Neuro grossly intact Psych/Mental Status: Normal Affect, Appropriate Microbiology Past 72 Hours 11/15/20 04:17 Mucosa - Nose SARS-CoV-2 Antigen (Rapid) - Final Laboratory Results 11/17/20 05:10: WBC 10.5, RBC 3.92 L, Hgb 13.7, Hct 40.0, MCV 102.0 H, MCH 34.9 H, MCHC 34.3, RDW Std Deviation 52.9 H, RDW Coeff of Yoli 14.0, Plt Count 189, MPV 10.2, Immature Gran % (Auto) 1.100 H, Neut % (Auto) 66.5, Lymph % (Auto) 15.7 L, Brown % (Auto) 14.5 H, Eos % (Auto) 1.8, Baso % (Auto) 0.4, Absolute Neuts (auto) 7.0, Absolute Lymphs (auto) 1.65, Nucleated RBC % 0, Differential Comment SCANNED 11/17/20 05:10: Sodium 128 L, Potassium 4.2, Chloride 99, Carbon Dioxide 25.0, Anion Gap 4 L, BUN 15, Creatinine 0.73, Estim Creat Clear Calc 115.53, Est GFR (MDRD) Af Amer 138, Est GFR (MDRD) Non-Af 114, BUN/Creatinine Ratio 20.5 H, Glucose 109 H, Calcium 8.8 Current Medications Acetaminophen (Acetaminophen 325 Mg Tablet) 650 mg PO Q6H PRN PRN PRN Reason: Pain Score 1-10/Temp > 100.7 F Last Admin: 11/15/20 20:09 Dose: 650 mg Documented by: Amiodarone HCl (Amiodarone 200 Mg Tablet) 200 mg PO BID [facility] Last Admin: 11/16/20 21:20 Dose: 200 mg Documented by: Buspirone HCl (Buspirone 5 Mg Tablet) 10 mg PO TID [facility] Last Admin: 11/17/20 06:15 Dose: Not Given Documented by: Cyclobenzaprine HCl (Cyclobenzaprine Hcl 5 Mg Tablet) 5 mg PO TID PRN PRN PRN Reason: MUSCLE SPASM Last Admin: 11/17/20 03:27 Dose: 5 mg Documented by: Duloxetine HCl (Duloxetine Hcl 30 Mg Capsule) 30 mg PO DAILY [facility] Last Admin: 11/16/20 08:49 Dose: 30 mg Documented by: Cefazolin Sodium 2 gm/ Sodium (Chloride) 110 mls @ 150 mls/hr IV X1 ONE Stop: 11/17/20 13:41 Lorazepam (Lorazepam 1 Mg Tablet) 2 mg PO Q2H PRN PRN; Protocol PRN Reason: CIWA score > 8 but <15 Lorazepam (Lorazepam 1 Mg Tablet) 2 mg PO UD PRN; Protocol PRN Reason: CIWA score >/=15. Lorazepam (Lorazepam 2 Mg/Ml Syringe) 2 mg IV Q2H PRN PRN; Protocol PRN Reason: CIWA score > 8 but <15 Lorazepam (Lorazepam 2 Mg/Ml Syringe) 2 mg IV UD PRN; Protocol PRN Reason: CIWA score >/=15. Metoprolol Succinate (Metoprolol(Xl)Succ 100 Mg Tablet) 100 mg PO DAILY [facility] Last Admin: 11/17/20 08:55 Dose: 100 mg Documented by: Morphine Sulfate (Morphine 4 Mg/Ml Syringe) 4 mg IV Q3H PRN PRN PRN Reason: Pain Score 6-10 Last Admin: 11/17/20 08:50 Dose: 4 mg Documented by: Multivitamins/Minerals (Multivitamins,Ther W-Minerals Tablet) [facility] Last Admin: 11/16/20 08:48 Dose: 1 tablet Documented by: Nutritional Formula (Lactose Free) (Ensure Enlive 120 Ml Liquid) [facility] Last Admin: 11/17/20 08:55 Dose: Not Given Documented by: Ondansetron HCl (Ondansetron 4 Mg/2 Ml Vial) 4 mg IV Q8H PRN PRN PRN Reason: NAUSEA/VOMITING Last Admin: 11/15/20 09:19 Dose: 4 mg Documented by: Senna/Docusate Sodium (Senna/Docusate Sodium 1 Tablet) 2 tablet PO BID PRN PRN PRN Reason: Constipation Sodium Chloride (0.9% Saline Lock 10 Ml Syringe) 10 - 40 ml IV UD PRN PRN Reason: SALINE FLUSH Last Admin: 11/17/20 00:41 Dose: 10 ml Documented by: Thiamine HCl (Thiamine Hydrochloride 100 Mg Tablet) [facility] Stop: 11/17/20 17:01 Last Admin: 11/16/20 17:49 Dose: 100 mg Documented by: Medical Necessity - Tobacco Use Smoking Status: Current every day smoker Tobacco Use: Cigarettes Assessment/Plan All Active Problems (Last Reviewed 11/15/20 @ 05:[address] Luciano Murphy MD) Femoral neck fracture (Acute) 1. Acute traumatic displaced subcapital fracture left hip, secondary to mechanical fall prior to admission-cleared for OR by cardiology. Orthopedic medicine consulted. Left hip hemiarthroplasty 11/17/2020. As needed pain regimen. PT/OT. Plavix on hold. Resume when okay per surgery. 2. Ischemic cardiomyopathy/CAD with history of stents-status post ICD. Echocardiogram demonstrates an EF of 45%. Continue metoprolol. Aspirin, Plavix on hold. Cardiology consulted. Follows with Dr. Glynn. 3. Alcohol dependence-[facility] protocol. Thiamine, folic acid, multivitamin supplementation. No current withdrawal symptoms. 4. Tobacco dependence-encouraged cessation. Declines nicotine replacement patch. 5. Hypertension-stable, continue metoprolol. 6. History of ventricular tachycardia-on amiodarone. Status post ICD. ICD interrogation completed and was unremarkable. 7. Anxiety/depression-on buspirone, duloxetine. 8. Hyponatremia-secondary to #3. Improved. DVT prophylaxis- SCDs This patient was seen by HI Dubose under the supervision of Dr. Ames.
[2020-11-17] MEDS: Cefazolin 2 GM in 0.9% Normal Saline 100 ML IV (14:27)
--- NOTE | 2020-11-17 16:13 | OP.PCM_ITS ---
Report of Operation Date of Procedure: 11/17/20 Pre-Operative Diagnosis: Displaced subcapital fracture left hip Post-Operative Diagnosis: same Surgery/Procedure Performed:: Hemiarthroplasty left hip Description of Surgical Findings:: Primary Surgeon/Physician: Phillip Merritt booth manager: CHAYO Hale booth manager: Pre-Operative Diagnosis: Displaced subcapital fracture left hip Post-Operative Diagnosis: same Surgery/Procedure Performed: Hemiarthroplasty left hip Estimated Blood Loss: 150 cc Specimen's Removed: femoral head Type of Anesthesia: general ASA Class: 3 Implants: [[place] Accolade type 2 size 7 stem, 54 mm +0 bipolar femoral head ] Surgical Indications: Patient has fracture of the [left ] hip. Patient was monica ared from a medical standpoint. The risks of the surgery was discussed with the patient and family at length. Procedure Description: The patient was greeted in the preoperative area. The [left ] hip was marked with surgical marker and preoperative antibiotics administered. The patient was then taken to OR suite in stable condition. Once the patient was placed in the supine position on the operating room table and once adequate anesthesia was obtained the patient was then placed in the lateral decubitus position with the surgical hip facing the field. All bony pro minences were well-padded. A commercial hip position was utilized. The appropriate extremity was then prepped and draped in usual sterile fashion. Ioban was placed on the skin. Surgical timeout was performed and surgery was commenced. Standard posterolateral approach to the hip was then performed incision was planned and carried out with a #10 blade. Dissection was then carried length of the incision to the IT band which was split proximally and distally. A Charnley retractor was then placed for soft tissue retraction exposing the gluteus medius. The hip was then approached through a transgluteal approach and dislocated through a posterior capsulectomy. The incarcerated femoral head was removed and measured on the back table. Findings are consistent with a femoral neck fracture. A femoral osteotomy was then created approximately 1 fingerbreadth above the lesser trochanter. No significant abnormality of the acetabulum is identified. Any remaining tissue or bone was removed from the acetabulum Attention was then turned to the femoral preparation. The hip was placed in the 90/90 position and a lateralizing box osteotome was utilized. Femoral starting awl was used followed by sequential broaching to the appropriate size. Excellent purchase was obtained with the stem no stem subsidence and excellent rotational stability was confirmed. A calcar reamer was then used in the trial head neck was placed on the broach. The hip was then located and taken through full range of motion flexion internal and external rotation as well as extension. Excellent stability was noted no impingement was identified of the components and leg lengths appear to be appropriate. The hip was at this point dislocated and the trial femoral components were removed. The final femoral stem was then implanted and impacted to the appropriate depth. Again excellent purchase was obtained no stem subsidence or rotational instability was noted. The hip was once again trialed and confirmation of leg length and stability was performed. Soft tissue tension also appeared to be appropriate. At this point the hip was redislocated and the trunnion was cleaned and dried meticulously in the appropriate size femoral head was placed on the clean dry trunnion using a 12/14 Haas taper. The hip was once again relocated and again taken through full range of motion. Copious irrigation was performed. Anatomic closure of the gluteus medius and minimus was performed with #1 Vicryl [id number] type fashion followed by closure of the IT band with #1 Vicryl 0 Vicryl was utilized in subcutaneous tissue and surgical zoey were placed in the skin. A well- padded nonadherent dressing was applied. Patient was taken to PACU in stable condition. No complications were identified. Will follow standard postop protocol for hemiarthroplasty. Patient must use assistive device for ambulation for approximately 6 weeks of the gluteal musculature heals. booth manager: Andi Fuentes Type of Anesthesia:: General Anesthesiologist: Gumaro Aquino Specimen's removed: femoral head Estimated Blood Loss (mL): 150 cc - Admit VTE Documentation VTE Present on Admission: No VTE Mechan Device Prophylaxis: SCD's VTE Pharm Prophylaxis ordered?: Yes
--- NOTE | 2020-11-17 16:30 | RAD_ITS ---
STUDY: X-RAY - PELVIS AND LEFT HIP REASON FOR EXAM: Male, 65 years old. POST OP LEFT HIP TECHNIQUE: 2 views of the pelvis and hip. COMPARISON: Pelvic x-ray dated November 15, 2020 FINDINGS: Interval surgical resection of the left femoral head and neck. New acetabular and left femoral shaft prosthetic components have been placed imaging and good bony contact and alignment. Expected postoperative gas and swelling seen in the overlying soft tissues. The remaining bony structures are unremarkable. RAD/Hip Min 2 Views (Portable) IMPRESSION: Status post total left hip arthroplasty. Electronically Signed: Romero Real MD at 17:49 EST , Service support ,
[2020-11-17] MEDS: Thiamine Hydrochloride 100 MG Tablet PO (17:21)
[2020-11-17] MEDS: DULoxetine Hcl 30 MG Capsule PO (17:21)
[2020-11-17] MEDS: Amiodarone 200 MG Tablet PO (17:21)
[2020-11-17] MEDS: oxyCODONE 5 MG Tablet PO (17:21)
[2020-11-17] MEDS: Multivitamins,Ther W-Minerals Tablet 1 TABLET PO (17:21)
[2020-11-17] MEDS: Acetaminophen 500 MG Tablet 1000 MG PO (21:18)
[2020-11-17] MEDS: Senna/Docusate Sodium 1 Tablet 2 TABLET PO (21:18)
[2020-11-17] MEDS: Cefazolin 1 GM/50 ML BAG IV (21:47)
[2020-11-17] MEDS: busPIRone 5 MG Tablet 10 MG PO (21:47)
[2020-11-18] VITALS (8 sets, daily range): BP systolic 104–127; BP diastolic 61–70; PULSE 70–80; RESP 12–18; TEMP 36.5–37.4; O2SAT 91–98; BMI 27.3
[2020-11-18] MEDS: oxyCODONE 5 MG Tablet PO ×4 (01:01→21:11)
[2020-11-18] MEDS: cycloBENZAPRine HCl 5 MG TABLET PO ×2 (01:01→21:11)
[2020-11-18] MEDS: Acetaminophen 500 MG Tablet 1000 MG PO ×3 (06:24→21:11)
[2020-11-18] MEDS: busPIRone 5 MG Tablet 10 MG PO ×3 (06:24→21:11)
[2020-11-18] MEDS: Cefazolin 1 GM/50 ML BAG IV (06:25)
[2020-11-18 07:08] LABS: Hematocrit 36.2 % (40-54); Hemoglobin 12.2 g/dL (13.0-16.5); Mean Corp Hgb Conc 33.7 g/dL (32-36); Mean Corpuscular Hgb 34.9 pg (27.0-32.0); Mean Corpuscular Volume 103.4 fL (80-94); Mean Platelet Vol. 10.2 fl (6.2-12.0); Platelet Count 176 K/mm3 (150-450); RBC Distribution Width CV 13.9 % (11.6-14.6); RBC Distribution Width SD 53.1 fl (35.1-43.9); White Blood Count 11.2 K/mm3 (4.4-11.0)
[2020-11-18 07:32] LABS: Anion Gap 5 (5-15); BUN 18 mg/dL (7-18); BUN/Creat Ratio 22.6 RATIO (10-20); Calcium,Total 8.5 mg/dL (8.5-10.1); Chloride 102 mmol/L (98-107); EST Glomerular Filtration Rate 104 mL/min (>60); Est Glom Filt Rate - Afr Amer 126 mL/min (>60); Estimated Creatinine Clearance 105.42 ml/min; Glucose 132 mg/dL (74-106); Potassium 4.4 mmol/L (3.5-5.1); Sodium Level 134 mmol/L (136-145)
[2020-11-18] MEDS: Lactated Ringers 1,000 ML 100 ML IV (07:52)
[2020-11-18] MEDS: Amiodarone 200 MG Tablet PO ×2 (08:03→21:11)
[2020-11-18] MEDS: Multivitamins,Ther W-Minerals Tablet 1 TABLET PO (08:03)
[2020-11-18] MEDS: Senna/Docusate Sodium 1 Tablet 2 TABLET PO ×2 (08:03→21:11)
[2020-11-18] MEDS: DULoxetine Hcl 30 MG Capsule PO (08:04)
[2020-11-18] MEDS: Metoprolol(XL)Succ 100 MG Tablet PO (08:04)
--- NOTE | 2020-11-18 13:07 | PN_ITS ---
Patient Problems: Active and Suspected Problems (Last Reviewed 11/15/20 @ 05:[address] Luciano Murphy MD) Femoral neck fracture (Acute) Subjective: Patient seen and examined. Postop day #1. Denies significant pain. States he has not yet been out of bed today. Patient states he is hoping to return home at discharge however he wants to see how he does. - Physical Exam Vitals/I&O's: Vital Signs Temp Pulse Resp BP Pulse Ox 99.4 F H 70 18 118/63 97 11/18/20 07:57 11/18/20 10:22 11/18/20 07:57 11/18/20 07:57 11/18/20 07:57 Oxygen Delivery Method Room Air Weight: 206 lb 12.697 oz Body Mass Index (BMI) 27.3 Intake and Output for Last 24 Hours 11/16/20 11/17/20 11/18/20 23:59 23:59 23:59 Intake Total 1590 / 1590 2028.33 / 2028.33 2450 / 2450 Output Total 3325 / 3725 725 / 725 700 / 700 Balance -1735 / -2135 1303.33 / 1303.33 1750 / 1750 General: Alert, Oriented x3, Cooperative HEENT: Atraumatic, PERRLA, EOMI, Normocephalic Neck: Supple, No JVD, Negative Carotid Bruits Lungs: Clear to auscultation, Normal air movement Cardiovascular: Regular rate, No murmurs Abdomen: Bowel Sounds Present, Soft, Non Tender, Non-Distended Extremities: No clubbing, No cyanosis, No edema, Capillary Refill Less than 3 Seconds Skin: No rashes, No breakdown, - - Left hip dressing intact Musculoskeletal: No Tenderness to Palpation of Joints or Extremities Neurological: Cranial nerves II-XII grossly intact, Neuro grossly intact Psych/Mental Status: Flat Affect Laboratory Results 11/18/20 06:30: WBC 11.2 H, RBC 3.50 L, Hgb 12.2 L, Hct 36.2 L, MCV 103.4 H, MCH 34.9 H, MCHC 33.7, RDW Std Deviation 53.1 H, RDW Coeff of Yoli 13.9, Plt Count 176, MPV 10.2 11/18/20 06:30: Sodium 134 L, Potassium 4.4, Chloride 102, Carbon Dioxide 27.0, Anion Gap 5, BUN 18, Creatinine 0.80, Estim Creat Clear Calc 105.42, Est GFR (MDRD) Af Amer 126, Est GFR (MDRD) Non-Af 104, BUN/Creatinine Ratio 22.6 H, Glucose 132 H, Calcium 8.5 Current Medications Acetaminophen (Acetaminophen 325 Mg Tablet) 650 mg PO Q6H PRN PRN PRN Reason: Pain Score 1-10/Temp > 100.7 F Last Admin: 11/15/20 20:09 Dose: 650 mg Documented by: Acetaminophen (Acetaminophen 500 Mg Tablet) 1,000 mg PO Q8 [facility] Last Admin: 11/18/20 06:24 Dose: 1,000 mg Documented by: Amiodarone HCl (Amiodarone 200 Mg Tablet) 200 mg PO BID [facility] Last Admin: 11/18/20 08:03 Dose: 200 mg Documented by: Buspirone HCl (Buspirone 5 Mg Tablet) 10 mg PO TID [facility] Last Admin: 11/18/20 06:24 Dose: 10 mg Documented by: Cyclobenzaprine HCl (Cyclobenzaprine Hcl 5 Mg Tablet) 5 mg PO TID PRN PRN PRN Reason: MUSCLE SPASM Last Admin: 11/18/20 01:01 Dose: 5 mg Documented by: Duloxetine HCl (Duloxetine Hcl 30 Mg Capsule) 30 mg PO DAILY [facility] Last Admin: 11/18/20 08:04 Dose: 30 mg Documented by: Lactated Ringer's () 1,000 mls @ 100 mls/hr IV .Q10H [facility] Last Admin: 11/18/20 07:52 Dose: 100 mls/hr Documented by: Lorazepam (Lorazepam 1 Mg Tablet) 2 mg PO Q2H PRN PRN; Protocol PRN Reason: CIWA score > 8 but <15 Lorazepam (Lorazepam 1 Mg Tablet) 2 mg PO UD PRN; Protocol PRN Reason: CIWA score >/=15. Lorazepam (Lorazepam 2 Mg/Ml Syringe) 2 mg IV Q2H PRN PRN; Protocol PRN Reason: CIWA score > 8 but <15 Lorazepam (Lorazepam 2 Mg/Ml Syringe) 2 mg IV UD PRN; Protocol PRN Reason: CIWA score >/=15. Metoprolol Succinate (Metoprolol(Xl)Succ 100 Mg Tablet) 100 mg PO DAILY [facility] Last Admin: 11/18/20 08:04 Dose: 100 mg Documented by: Morphine Sulfate (Morphine 4 Mg/Ml Syringe) 4 mg IV Q3H PRN PRN PRN Reason: Pain Score 6-10 Last Admin: 11/17/20 19:01 Dose: 4 mg Documented by: Multivitamins/Minerals (Multivitamins,Ther W-Minerals Tablet) [facility] Last Admin: 11/18/20 08:03 Dose: 1 tablet Documented by: Ondansetron HCl (Ondansetron 4 Mg/2 Ml Vial) 4 mg IV Q8H PRN PRN PRN Reason: NAUSEA Oxycodone HCl (Oxycodone 5 Mg Tablet) 5 - 10 mg PO Q4H PRN PRN PRN Reason: Pain Score 4-10 Last Admin: 11/18/20 08:03 Dose: 10 mg Documented by: Promethazine HCl (Promethazine 25 Mg/Ml Syringe) 12.5 mg IM Q6H PRN PRN; Protocol PRN Reason: NAUSEA/VOMITING Senna/Docusate Sodium (Senna/Docusate Sodium 1 Tablet) 2 tablet PO BID [facility] Last Admin: 11/18/20 08:03 Dose: 2 tablet Documented by: Sodium Chloride (0.9% Saline Lock 10 Ml Syringe) 10 - 40 ml IV UD PRN PRN Reason: SALINE FLUSH Last Admin: 11/17/20 00:41 Dose: 10 ml Documented by: Medical Necessity - Tobacco Use Smoking Status: Current every day smoker Tobacco Use: Cigarettes Assessment/Plan All Active Problems (Last Reviewed 11/15/20 @ 05:[address] Luciano Murphy MD) Femoral neck fracture (Acute) 1. Acute traumatic displaced subcapital fracture left hip, secondary to mechanical fall prior to admission-Left hip hemiarthroplasty 11/17/2020. As needed pain regimen. PT/OT. Plavix on hold. Resume when okay per surgery. Aw aiting PT eval and Ortho follow-up for discharge planning. 2. Ischemic cardiomyopathy/CAD with history of stents-status post ICD. Echocardiogram demonstrates an EF of 45%. Continue metoprolol. Aspirin, Plavix on hold. Cardiology consulted. Follows with Dr. Glynn. 3. Alcohol dependence-CIWA protocol. Thiamine, folic acid, multivitamin supplementation. No current withdrawal symptoms. 4. Tobacco dependence-encouraged cessation. Declines nicotine replacement patch. 5. Hypertension-stable, continue metoprolol. 6. History of ventricular tachycardia-on amiodarone. Status post ICD. ICD interrogation completed and was unremarkable. 7. Anxiety/depression-on buspirone, duloxetine. 8. Hyponatremia-secondary to #3. Improved. DVT prophylaxis- SCDs Discharge planning: Await PT and Ortho recommendations regarding discharge. This patient was seen by HI Dubose under the supervision of Dr. Ames.
--- NOTE | 2020-11-18 13:55 | PN.ORTHO_ITS ---
Patient Problems: Active and Suspected Problems (Last Reviewed 11/15/20 @ 05:[address] Luciano Murphy MD) Femoral neck fracture (Acute) Subjective: Pt. reports pain in left hip with walking (expected). Otherwise he denies N/T/P or other areas of concern. - Physical Exam Vitals/I&O's: Vital Signs Temp Pulse Resp BP Pulse Ox 99.4 F H 70 18 118/63 97 11/18/20 07:57 11/18/20 10:22 11/18/20 07:57 11/18/20 07:57 11/18/20 07:57 Oxygen Delivery Method Room Air Weight: 206 lb 12.697 oz Body Mass Index (BMI) 27.3 Intake and Output for Last 24 Hours 11/16/20 11/17/20 11/18/20 23:59 23:59 23:59 Intake Total 1590 / 1590 2028.33 / 2028.33 2450 / 2450 Output Total 3325 / 3725 725 / 725 700 / 700 Balance -1735 / -2135 1303.33 / 1303.33 1750 / 1750 General: Alert, Oriented x3, Cooperative, No apparent distress Extremities: No clubbing, No cyanosis, No edema, Capillary Refill Less than 3 Seconds, No Calf Tenderness Skin: Incision - stable Laboratory Results 11/18/20 06:30: WBC 11.2 H, RBC 3.50 L, Hgb 12.2 L, Hct 36.2 L, MCV 103.4 H, MCH 34.9 H, MCHC 33.7, RDW Std Deviation 53.1 H, RDW Coeff of Yoli 13.9, Plt Count 176, MPV 10.2 11/18/20 06:30: Sodium 134 L, Potassium 4.4, Chloride 102, Carbon Dioxide 27.0, Anion Gap 5, BUN 18, Creatinine 0.80, Estim Creat Clear Calc 105.42, Est GFR (MDRD) Af Amer 126, Est GFR (MDRD) Non-Af 104, BUN/Creatinine Ratio 22.6 H, Glucose 132 H, Calcium 8.5 Current Medications Acetaminophen (Acetaminophen 325 Mg Tablet) 650 mg PO Q6H PRN PRN PRN Reason: Pain Score 1-10/Temp > 100.7 F Last Admin: 11/15/20 20:09 Dose: 650 mg Documented by: Acetaminophen (Acetaminophen 500 Mg Tablet) 1,000 mg PO Q8 [facility] Last Admin: 11/18/20 06:24 Dose: 1,000 mg Documented by: Amiodarone HCl (Amiodarone 200 Mg Tablet) 200 mg PO BID [facility] Last Admin: 11/18/20 08:03 Dose: 200 mg Documented by: Buspirone HCl (Buspirone 5 Mg Tablet) 10 mg PO TID [facility] Last Admin: 11/18/20 06:24 Dose: 10 mg Documented by: Cyclobenzaprine HCl (Cyclobenzaprine Hcl 5 Mg Tablet) 5 mg PO TID PRN PRN PRN Reason: MUSCLE SPASM Last Admin: 11/18/20 01:01 Dose: 5 mg Documented by: Duloxetine HCl (Duloxetine Hcl 30 Mg Capsule) 30 mg PO DAILY [facility] Last Admin: 11/18/20 08:04 Dose: 30 mg Documented by: Lorazepam (Lorazepam 1 Mg Tablet) 2 mg PO Q2H PRN PRN; Protocol PRN Reason: CIWA score > 8 but <15 Lorazepam (Lorazepam 1 Mg Tablet) 2 mg PO UD PRN; Protocol PRN Reason: CIWA score >/=15. Lorazepam (Lorazepam 2 Mg/Ml Syringe) 2 mg IV Q2H PRN PRN; Protocol PRN Reason: CIWA score > 8 but <15 Lorazepam (Lorazepam 2 Mg/Ml Syringe) 2 mg IV UD PRN; Protocol PRN Reason: CIWA score >/=15. Metoprolol Succinate (Metoprolol(Xl)Succ 100 Mg Tablet) 100 mg PO DAILY [facility] Last Admin: 11/18/20 08:04 Dose: 100 mg Documented by: Morphine Sulfate (Morphine 4 Mg/Ml Syringe) 4 mg IV Q3H PRN PRN PRN Reason: Pain Score 6-10 Last Admin: 11/17/20 19:01 Dose: 4 mg Documented by: Multivitamins/Minerals (Multivitamins,Ther W-Minerals Tablet) [facility] Last Admin: 11/18/20 08:03 Dose: 1 tablet Documented by: Ondansetron HCl (Ondansetron 4 Mg/2 Ml Vial) 4 mg IV Q8H PRN PRN PRN Reason: NAUSEA Oxycodone HCl (Oxycodone 5 Mg Tablet) 5 - 10 mg PO Q4H PRN PRN PRN Reason: Pain Score 4-10 Last Admin: 11/18/20 08:03 Dose: 10 mg Documented by: Promethazine HCl (Promethazine 25 Mg/Ml Syringe) 12.5 mg IM Q6H PRN PRN; Protocol PRN Reason: NAUSEA/VOMITING Senna/Docusate Sodium (Senna/Docusate Sodium 1 Tablet) 2 tablet PO BID [facility] Last Admin: 11/18/20 08:03 Dose: 2 tablet Documented by: Sodium Chloride (0.9% Saline Lock 10 Ml Syringe) 10 - 40 ml IV UD PRN PRN Reason: SALINE FLUSH Last Admin: 11/17/20 00:41 Dose: 10 ml Documented by: Medical Necessity - Tobacco Use Smoking Status: Current every day smoker Tobacco Use: Cigarettes Assessment/Plan All Active Problems (Last Reviewed 11/15/20 @ 05:[address] Luciano Murphy MD) Femoral neck fracture (Acute) s/p Hemiarthroplasty left hip Continue PT with [facility]. OK to resume Plavix Follow up with me in office in 2 weeks. Ortho off case for now, will re-evaluate at your request.
[2020-11-18] MEDS: 0.9% Saline Lock 10 ML Syringe IV ×2 (13:58→21:11)
[2020-11-18] MEDS: Clopidogrel Bisulfate 75 MG Tablet PO (18:50)
[2020-11-19 02:35] VITALS: BP 124/68; PULSE 83; RESP 16; TEMP 36.4; O2SAT 95
[2020-11-19] MEDS: oxyCODONE 5 MG Tablet PO ×4 (05:41→20:35)
[2020-11-19] MEDS: Acetaminophen 500 MG Tablet 1000 MG PO ×3 (05:41→21:08)
[2020-11-19] MEDS: busPIRone 5 MG Tablet 10 MG PO ×3 (05:41→21:09)
[2020-11-19] MEDS: cycloBENZAPRine HCl 5 MG TABLET PO ×2 (06:59→21:09)
[2020-11-19 09:15] VITALS: PULSE 80
[2020-11-19] MEDS: Senna/Docusate Sodium 1 Tablet 2 TABLET PO ×2 (09:24→21:09)
[2020-11-19 09:27] VITALS: PULSE 80
[2020-11-19] MEDS: DULoxetine Hcl 30 MG Capsule PO (09:27)
[2020-11-19] MEDS: Multivitamins,Ther W-Minerals Tablet 1 TABLET PO (09:27)
[2020-11-19] MEDS: Metoprolol(XL)Succ 100 MG Tablet PO (09:27)
[2020-11-19] MEDS: Amiodarone 200 MG Tablet PO ×2 (09:27→21:08)
[2020-11-19 10:34] VITALS: O2SAT 92
--- NOTE | 2020-11-19 11:23 | PCM.PROGNOTE ---
Patient Problems: Active and Suspected Problems (Last Reviewed 11/15/20 @ 05:[address] Luciano Murphy MD) Femoral neck fracture (Acute) Subjective: Patient seen and examined. Initially refusing rehab due to concern for paying his bills at home. However following further discussion, patient amendable to rehab unit at discharge pending insurance approval/acceptance. - Physical Exam Vitals/I&O's: Vital Signs Temp Pulse Resp BP Pulse Ox 97.6 F L 80 16 124/68 H 92 11/19/20 02:35 11/19/20 09:27 11/19/20 02:35 11/19/20 02:35 11/19/20 10:34 Oxygen Delivery Method Room Air Weight: 206 lb 12.697 oz Body Mass Index (BMI) 27.3 Intake and Output for Last 24 Hours 11/17/20 11/18/20 11/19/20 23:59 23:59 23:59 Intake Total 2028.33 / 2028.33 3058.33 / 3058.33 Output Total 725 / 725 700 / 1175 725 / 725 Balance 1303.33 / 1303.33 2358.33 / 1883.33 -725 / -725 General: Alert, Oriented x3, Cooperative HEENT: Atraumatic, PERRLA, EOMI, Normocephalic Neck: Supple, No JVD, Negative Carotid Bruits Lungs: Clear to auscultation, Normal air movement Cardiovascular: Regular rate, No murmurs Abdomen: Bowel Sounds Present, Soft, Non Tender, Non-Distended Extremities: No clubbing, No cyanosis, No edema, Capillary Refill Less than 3 Seconds Skin: No rashes, No breakdown, - - Left hip dressing intact Musculoskeletal: No Tenderness to Palpation of Joints or Extremities Neurological: Cranial nerves II-XII grossly intact, Neuro grossly intact Psych/Mental Status: Flat Affect Current Medications Acetaminophen (Acetaminophen 325 Mg Tablet) 650 mg PO Q6H PRN PRN PRN Reason: Pain Score 1-10/Temp > 100.7 F Last Admin: 11/15/20 20:09 Dose: 650 mg Documented by: Acetaminophen (Acetaminophen 500 Mg Tablet) 1,000 mg PO Q8 [facility] Last Admin: 11/19/20 05:41 Dose: 1,000 mg Documented by: Amiodarone HCl (Amiodarone 200 Mg Tablet) 200 mg PO BID [facility] Last Admin: 11/19/20 09:27 Dose: 200 mg Documented by: Buspirone HCl (Buspirone 5 Mg Tablet) 10 mg PO TID [facility] Last Admin: 11/19/20 05:41 Dose: 10 mg Documented by: Clopidogrel Bisulfate (Clopidogrel Bisulfate 75 Mg Tablet) 75 mg PO DAILY [facility] Cyclobenzaprine HCl (Cyclobenzaprine Hcl 5 Mg Tablet) 5 mg PO TID PRN PRN PRN Reason: MUSCLE SPASM Last Admin: 11/19/20 06:59 Dose: 5 mg Documented by: Duloxetine HCl (Duloxetine Hcl 30 Mg Capsule) 30 mg PO DAILY [facility] Last Admin: 11/19/20 09:27 Dose: 30 mg Documented by: Lorazepam (Lorazepam 1 Mg Tablet) 2 mg PO Q2H PRN PRN; Protocol PRN Reason: CIWA score > 8 but <15 Lorazepam (Lorazepam 1 Mg Tablet) 2 mg PO UD PRN; Protocol PRN Reason: CIWA score >/=15. Lorazepam (Lorazepam 2 Mg/Ml Syringe) 2 mg IV Q2H PRN PRN; Protocol PRN Reason: CIWA score > 8 but <15 Lorazepam (Lorazepam 2 Mg/Ml Syringe) 2 mg IV UD PRN; Protocol PRN Reason: CIWA score >/=15. Metoprolol Succinate (Metoprolol(Xl)Succ 100 Mg Tablet) 100 mg PO DAILY [facility] Last Admin: 11/19/20 09:27 Dose: 100 mg Documented by: Morphine Sulfate (Morphine 4 Mg/Ml Syringe) 4 mg IV Q3H PRN PRN PRN Reason: Pain Score 6-10 Last Admin: 11/17/20 19:01 Dose: 4 mg Documented by: Multivitamins/Minerals (Multivitamins,Ther W-Minerals Tablet) [facility] Last Admin: 11/19/20 09:27 Dose: 1 tablet Documented by: Ondansetron HCl (Ondansetron 4 Mg/2 Ml Vial) 4 mg IV Q8H PRN PRN PRN Reason: NAUSEA Oxycodone HCl (Oxycodone 5 Mg Tablet) 5 - 10 mg PO Q4H PRN PRN PRN Reason: Pain Score 4-10 Last Admin: 11/19/20 10:00 Dose: 10 mg Documented by: Promethazine HCl (Promethazine 25 Mg/Ml Syringe) 12.5 mg IM Q6H PRN PRN; Protocol PRN Reason: NAUSEA/VOMITING Senna/Docusate Sodium (Senna/Docusate Sodium 1 Tablet) 2 tablet PO BID [facility] Last Admin: 11/19/20 09:24 Dose: 2 tablet Documented by: Sodium Chloride (0.9% Saline Lock 10 Ml Syringe) 10 - 40 ml IV UD PRN PRN Reason: SALINE FLUSH Last Admin: 11/18/20 21:11 Dose: 10 ml Documented by: Medical Necessity - Tobacco Use Smoking Status: Current every day smoker Tobacco Use: Cigarettes Assessment/Plan All Active Problems (Last Reviewed 11/15/20 @ 05:[address] Luciano Murphy MD) Femoral neck fracture (Acute) 1. Acute traumatic displaced subcapital fracture left hip, secondary to mechanical fall prior to admission-Left hip hemiarthroplasty 11/17/2020. As needed pain regimen. PT/OT. Plan for rehab unit pending acceptance/insurance approval. 2. Ischemic cardiomyopathy/CAD with history of stents-status post ICD. Echocardiogram demonstrates an EF of 45%. Continue metoprolol, aspirin, Plavix. Cardiology consulted for surgery clearance-signed off. Follows with Dr. Glynn. 3. Alcohol dependence-CIWA protocol. Thiamine, folic acid, multivitamin supplementation. No current withdrawal symptoms. 4. Tobacco dependence-encouraged cessation. Declines nicotine replacement patch. 5. Hypertension-stable, continue metoprolol. 6. History of ventricular tachycardia-on amiodarone. Status post ICD. ICD interrogation completed and was unremarkable. 7. Anxiety/depression-on buspirone, duloxetine. 8. Hyponatremia-secondary to #3. Improved. DVT prophylaxis- Lovenox sc Discharge planning: Patient amendable to rehab unit pending insurance approval/acceptance. This patient was seen by HI Dubose under the supervision of Dr. Ames.
[2020-11-19] MEDS: Clopidogrel Bisulfate 75 MG Tablet PO (12:12)
[2020-11-19 16:25] VITALS: BP 97/47; PULSE 74; RESP 18; TEMP 36.7; O2SAT 95
[2020-11-19 20:35] VITALS: BP 117/54; PULSE 73; RESP 16; TEMP 37.1; O2SAT 95
[2020-11-19] MEDS: 0.9% Saline Lock 10 ML Syringe IV (20:35)
[2020-11-20] MEDS: oxyCODONE 5 MG Tablet PO ×5 (00:49→22:08)
[2020-11-20 02:20] VITALS: BP 115/48; PULSE 83; RESP 18; TEMP 36.6; O2SAT 94
[2020-11-20] MEDS: Acetaminophen 500 MG Tablet 1000 MG PO ×3 (05:44→22:10)
[2020-11-20] MEDS: busPIRone 5 MG Tablet 10 MG PO ×3 (05:44→22:10)
[2020-11-20] MEDS: cycloBENZAPRine HCl 5 MG TABLET PO (05:44)
[2020-11-20 08:27] VITALS: O2SAT 92
[2020-11-20 09:12] VITALS: BP 122/64; PULSE 72; RESP 16; TEMP 36.6; O2SAT 94
[2020-11-20] MEDS: Amiodarone 200 MG Tablet PO ×2 (09:20→22:10)
[2020-11-20] MEDS: Aspirin E.C. 81 MG Tablet PO (09:20)
[2020-11-20 09:21] VITALS: PULSE 72
[2020-11-20] MEDS: Enoxaparin 40 MG/0.4 ML Syringe SC (09:21)
[2020-11-20] MEDS: Senna/Docusate Sodium 1 Tablet 2 TABLET PO ×2 (09:21→22:09)
[2020-11-20] MEDS: Multivitamins,Ther W-Minerals Tablet 1 TABLET PO (09:21)
[2020-11-20] MEDS: Metoprolol(XL)Succ 100 MG Tablet PO (09:21)
[2020-11-20] MEDS: Clopidogrel Bisulfate 75 MG Tablet PO (09:21)
[2020-11-20] MEDS: DULoxetine Hcl 30 MG Capsule PO (09:21)
--- NOTE | 2020-11-20 09:44 | CASEMGMT ---
Addendum entered by Geno Dominguez 11/20/20 09:56: SW received call from Amanda with [facility], pt's insurance is closed today. Amanda will submit for pre-cert tomorrow. SW in to speak with pt. SW introduced self and role at [facility]. Pt is alert and orientated. SW updated pt on [facility] vs T[facility]. SW explained that [facility] takes pt's insurance and pt would likely benefit more from [facility]. Pt agreeable to [facility]. Pt also states he has [employer], states he thinks his agency is [employer] [facility]. SW informed pt that this worker will call [employer] to let them know pt is at [facility]. Pt states understanding. SW placed a call to [employer] [facility], per voicemail, their office is closed today. SW left message. Plan: [facility] pending pre-cert Original Note: Social Work Note Per handoff communication, pt was considering rehab and pt was spoke to regarding TCU vs [facility]. TCU doesn't take pt's insurance. ROLANDO placed a call to Amanda in [facility]. Amanda states she was called over the weekend regarding pt, confirms [facility] does accept pt's insurance. Amanda states [facility] physician will need to review referral and then will let this worker know. Pt will need pre-cert. Plan: [facility] pending acceptance and pre-cert Geno Dominguez [employer], MANUFACTURING PLANNER
--- NOTE | 2020-11-20 10:38 | PCM.PN.HOSP ---
Patient Problems: Active and Suspected Problems (Last Reviewed 11/15/20 @ 05:[address] Luciano Murphy MD) Femoral neck fracture (Acute) Subjective: Doing well, pain is much improved since surgery. No issues overnight Vitals/I&O's: Vital Signs Temp Pulse Resp BP Pulse Ox 97.9 F 72 16 122/64 H 94 11/20/20 09:12 11/20/20 09:21 11/20/20 09:12 11/20/20 09:12 11/20/20 09:12 Oxygen Delivery Method Room Air Weight: 206 lb 12.697 oz Body Mass Index (BMI) 27.3 Intake and Output for Last 24 Hours 11/18/20 11/19/20 11/20/20 23:59 23:59 23:59 Intake Total 3058.33 / 3058.33 Output Total 700 / 1175 725 / 975 750 / 750 Balance 2358.33 / 1883.33 -725 / -975 -750 / -750 General: Alert, Oriented x3, Cooperative, No apparent distress HEENT: Atraumatic, PERRLA, EOMI, Normocephalic Oral: Moist Mucosa Neck: Supple, No JVD Lungs: Clear to auscultation, Normal air movement, No rhonchi, No wheeze, No rales Cardiovascular: Regular rate, Regular Rhythm, Normal S1, Normal S2, No murmurs Abdomen: Soft, Non Tender, Non-Distended, No Hepato-splenomegaly Extremities: No edema, Capillary Refill Less than 3 Seconds Skin: No rashes, No breakdown, Incision - Dressing clean dry and intact Neurological: Neuro grossly intact, Sensory exam intact to light touch and pain Psych/Mental Status: Normal Affect, Appropriate Current Medications Acetaminophen (Acetaminophen 325 Mg Tablet) 650 mg PO Q6H PRN PRN PRN Reason: Pain Score 1-10/Temp > 100.7 F Last Admin: 11/15/20 20:09 Dose: 650 mg Documented by: Acetaminophen (Acetaminophen 500 Mg Tablet) 1,000 mg PO Q8 [facility] Last Admin: 11/20/20 05:44 Dose: 1,000 mg Documented by: Amiodarone HCl (Amiodarone 200 Mg Tablet) 200 mg PO BID [facility] Last Admin: 11/20/20 09:20 Dose: 200 mg Documented by: Aspirin (Aspirin E.C. 81 Mg Tablet) 81 mg PO DAILY@0800 [facility] Last Admin: 11/20/20 09:20 Dose: 81 mg Documented by: Buspirone HCl (Buspirone 5 Mg Tablet) 10 mg PO TID [facility] Last Admin: 11/20/20 05:44 Dose: 10 mg Documented by: Clopidogrel Bisulfate (Clopidogrel Bisulfate 75 Mg Tablet) 75 mg PO DAILY [facility] Last Admin: 11/20/20 09:21 Dose: 75 mg Documented by: Cyclobenzaprine HCl (Cyclobenzaprine Hcl 5 Mg Tablet) 5 mg PO TID PRN PRN PRN Reason: MUSCLE SPASM Last Admin: 11/20/20 05:44 Dose: 5 mg Documented by: Duloxetine HCl (Duloxetine Hcl 30 Mg Capsule) 30 mg PO DAILY [facility] Last Admin: 11/20/20 09:21 Dose: 30 mg Documented by: Enoxaparin Sodium (Enoxaparin 40 Mg/0.4 Ml Syringe) 40 mg SC DAILY [facility] Last Admin: 11/20/20 09:21 Dose: 40 mg Documented by: Lorazepam (Lorazepam 1 Mg Tablet) 2 mg PO Q2H PRN PRN; Protocol PRN Reason: CIWA score > 8 but <15 Lorazepam (Lorazepam 1 Mg Tablet) 2 mg PO UD PRN; Protocol PRN Reason: CIWA score >/=15. Lorazepam (Lorazepam 2 Mg/Ml Syringe) 2 mg IV Q2H PRN PRN; Protocol PRN Reason: CIWA score > 8 but <15 Lorazepam (Lorazepam 2 Mg/Ml Syringe) 2 mg IV UD PRN; Protocol PRN Reason: CIWA score >/=15. Metoprolol Succinate (Metoprolol(Xl)Succ 100 Mg Tablet) 100 mg PO DAILY [facility] Last Admin: 11/20/20 09:21 Dose: 100 mg Documented by: Morphine Sulfate (Morphine 4 Mg/Ml Syringe) 4 mg IV Q3H PRN PRN PRN Reason: Pain Score 6-10 Last Admin: 11/17/20 19:01 Dose: 4 mg Documented by: Multivitamins/Minerals (Multivitamins,Ther W-Minerals Tablet) [facility] Last Admin: 11/20/20 09:21 Dose: 1 tablet Documented by: Ondansetron HCl (Ondansetron 4 Mg/2 Ml Vial) 4 mg IV Q8H PRN PRN PRN Reason: NAUSEA Oxycodone HCl (Oxycodone 5 Mg Tablet) 5 - 10 mg PO Q4H PRN PRN PRN Reason: Pain Score 4-10 Last Admin: 11/20/20 09:43 Dose: 10 mg Documented by: Promethazine HCl (Promethazine 25 Mg/Ml Syringe) 12.5 mg IM Q6H PRN PRN; Protocol PRN Reason: NAUSEA/VOMITING Senna/Docusate Sodium (Senna/Docusate Sodium 1 Tablet) 2 tablet PO BID [facility] Last Admin: 11/20/20 09:21 Dose: 2 tablet Documented by: Sodium Chloride (0.9% Saline Lock 10 Ml Syringe) 10 - 40 ml IV UD PRN PRN Reason: SALINE FLUSH Last Admin: 11/19/20 20:35 Dose: 10 ml Documented by: STROKE Vital Signs/Narrative: Vital Signs Temp Pulse Resp BP Pulse Ox 11/20/20 09:21 72 11/20/20 09:12 97.9 F 72 16 122/64 H 94 11/20/20 08:27 92 Medical Necessity - Tobacco Use Smoking Status: Current every day smoker Tobacco Use: Cigarettes Assessment/Plan All Active Problems (Last Reviewed 11/15/20 @ 05:[address] Luciano Murphy MD) Femoral neck fracture (Acute) 1. Acute traumatic displaced subcapital fracture of the left hip secondary to mechanical fall status post repair 11/17/2020 -Continue with PT/OT as well as pain meds -We will evaluate for possible placement in rehab unit, he is refusing SNF 2. CAD status post stents/HTN/HLD/history of V. tach status post ICD -Blood pressure is stable -Recent echo with an EF of 45% -Continue with metoprolol, aspirin, Plavix -ICD was interrogated and normal, continue with amiodarone 3. Alcohol dependence/tobacco dependence/anxiety/depression -Currently not in withdrawal, continue with CIWA -Did not want a nicotine patch, encouraged cessation -Continue with BuSpar and Cymbalta DVT: Lovenox Inpatient E&M: 97134 Subs Hosp L2
[2020-11-20 14:04] VITALS: BP 111/77; PULSE 69; RESP 16; TEMP 36.4; O2SAT 95
[2020-11-20 20:04] VITALS: BP 132/67; PULSE 68; RESP 18; TEMP 35.9; O2SAT 95
[2020-11-21 02:04] VITALS: BP 99/44; PULSE 73; RESP 18; TEMP 36.6; O2SAT 97
[2020-11-21] MEDS: oxyCODONE 5 MG Tablet PO ×3 (02:13→21:06)
[2020-11-21 05:53] LABS: Absolute Lymphocyte Count 1.43 X10^3/uL (0.83-4.51); Absolute Neutrophil Count 5.3 X10^3/uL (2.0-7.7); Basophil# 0.04 X10^3/uL; Basophil% 0.5 % (0-1); Eosinophils% 5.9 % (0-5); Hematocrit 33.2 % (40-54); Hemoglobin 11.5 g/dL (13.0-16.5); Lymphocyte # 1.43 X10^3/ul (4.0); Lymphocyte % 16.9 % (19-41); Mean Corp Hgb Conc 34.6 g/dL (32-36); Mean Corpuscular Hgb 35.2 pg (27.0-32.0); Mean Corpuscular Volume 101.5 fL (80-94); Mean Platelet Vol. 9.4 fl (6.2-12.0); Monocyte# 1.09 X10^3/uL; Monocyte% 12.9 % (0-10); NRBC Flagged by Analyzer 0 % (0-5); Neutrophil # 5.27 X10^3/uL (2.7-7.7); Neutrophil % 62.4 % (47-70); Platelet Count 292 K/mm3 (150-450); RBC Distribution Width CV 13.4 % (11.6-14.6); RBC Distribution Width SD 49.9 fl (35.1-43.9); Red Blood Count 3.27 M/mm3 (4.6-6.2); White Blood Count 8.5 K/mm3 (4.4-11.0)
[2020-11-21] MEDS: cycloBENZAPRine HCl 5 MG TABLET PO (05:55)
[2020-11-21] MEDS: busPIRone 5 MG Tablet 10 MG PO ×3 (05:55→20:57)
[2020-11-21] MEDS: Acetaminophen 500 MG Tablet 1000 MG PO ×3 (05:55→20:58)
[2020-11-21 06:14] LABS: Anion Gap 4 (5-15); BUN 18 mg/dL (7-18); BUN/Creat Ratio 25.8 RATIO (10-20); Calcium,Total 8.3 mg/dL (8.5-10.1); Chloride 101 mmol/L (98-107); EST Glomerular Filtration Rate 121 mL/min (>60); Est Glom Filt Rate - Afr Amer 146 mL/min (>60); Estimated Creatinine Clearance 120.48 ml/min; Glucose 104 mg/dL (74-106); Potassium 3.9 mmol/L (3.5-5.1); Sodium Level 133 mmol/L (136-145)
[2020-11-21 07:53] VITALS: BP 121/71; PULSE 68; RESP 16; TEMP 36.7; O2SAT 96
[2020-11-21] MEDS: Senna/Docusate Sodium 1 Tablet 2 TABLET PO ×2 (08:02→20:57)
[2020-11-21] MEDS: DULoxetine Hcl 30 MG Capsule PO (08:03)
[2020-11-21] MEDS: Clopidogrel Bisulfate 75 MG Tablet PO (08:03)
[2020-11-21] MEDS: Amiodarone 200 MG Tablet PO ×2 (08:03→20:58)
[2020-11-21] MEDS: Aspirin E.C. 81 MG Tablet PO (08:03)
[2020-11-21 08:04] VITALS: BP 121/71; PULSE 68; RESP 16; TEMP 36.7; O2SAT 96
[2020-11-21] MEDS: Multivitamins,Ther W-Minerals Tablet 1 TABLET PO (08:04)
[2020-11-21] MEDS: Metoprolol(XL)Succ 100 MG Tablet PO (08:04)
[2020-11-21] MEDS: Enoxaparin 40 MG/0.4 ML Syringe SC (08:04)
[2020-11-21] MEDS: LORazepam 1 MG Tablet 2 MG PO (08:08)
--- NOTE | 2020-11-21 08:50 | CASEMGMT ---
Social Work Note SW spoke with Amanda with [facility], pre-cert has been submitted. Plan: [facility] pending pre-cert Geno Dominguez CARDIAC NURSE SPECIALIST, [employer]EDGE CAPTAIN
--- NOTE | 2020-11-21 11:57 | PN_ITS ---
Patient Problems: Active and Suspected Problems (Last Reviewed 11/15/20 @ 05:[address] Luciano Murphy MD) Femoral neck fracture (Acute) Subjective: Doing well, pain is manageable and feels little bit better today. Vitals/I&O's: Vital Signs Temp Pulse Resp BP Pulse Ox 98.0 F 68 16 121/71 H 96 11/21/20 08:04 11/21/20 08:04 11/21/20 08:04 11/21/20 08:04 11/21/20 08:04 Oxygen Delivery Method Room Air Weight: 206 lb 12.697 oz Body Mass Index (BMI) 27.3 Intake and Output for Last 24 Hours 11/19/20 11/20/20 11/21/20 23:59 23:59 23:59 Intake Total 1000 / 1000 Output Total 725 / 975 1225 / 1625 1050 / 1050 Balance -725 / -975 -225 / -625 -1050 / -1050 General: Alert, Oriented x3, Cooperative, No apparent distress HEENT: Atraumatic, PERRLA, EOMI, Normocephalic Oral: Moist Mucosa Neck: Supple, No JVD Lungs: Clear to auscultation, Normal air movement, No rhonchi, No wheeze, No rales Cardiovascular: Regular rate, Regular Rhythm, Normal S1, Normal S2, No murmurs Abdomen: Soft, Non Tender, Non-Distended, No Hepato-splenomegaly Extremities: No edema, Capillary Refill Less than 3 Seconds Skin: No rashes, No breakdown, Incision - Dressing clean dry and intact Neurological: Neuro grossly intact, Sensory exam intact to light touch and pain Psych/Mental Status: Normal Affect, Appropriate Laboratory Results 11/21/20 05:42: WBC 8.5, RBC 3.27 L, Hgb 11.5 L, Hct 33.2 L, MCV 101.5 H, MCH 35.2 H, MCHC 34.6, RDW Std Deviation 49.9 H, RDW Coeff of Yoli 13.4, Plt Count 292, MPV 9.4, Immature Gran % (Auto) 1.400 H, Neut % (Auto) 62.4, Lymph % (Auto) 16.9 L, Jenkins % (Auto) 12.9 H, Eos % (Auto) 5.9 H, Baso % (Auto) 0.5, Absolute Neuts (auto) 5.3, Absolute Lymphs (auto) 1.43, Nucleated RBC % 0 11/21/20 05:42: Sodium 133 L, Potassium 3.9, Chloride 101, Carbon Dioxide 28.0, Anion Gap 4 L, BUN 18, Creatinine 0.70, Estim Creat Clear Calc 120.48, Est GFR (MDRD) Af Amer 146, Est GFR (MDRD) Non-Af 121, BUN/Creatinine Ratio 25.8 H, Glucose 104, Calcium 8.3 L Current Medications Acetaminophen (Acetaminophen 325 Mg Tablet) 650 mg PO Q6H PRN PRN PRN Reason: Pain Score 1-10/Temp > 100.7 F Last Admin: 11/15/20 20:09 Dose: 650 mg Documented by: Acetaminophen (Acetaminophen 500 Mg Tablet) 1,000 mg PO Q8 [facility] Last Admin: 11/21/20 05:55 Dose: 1,000 mg Documented by: Amiodarone HCl (Amiodarone 200 Mg Tablet) 200 mg PO BID [facility] Last Admin: 11/21/20 08:03 Dose: 200 mg Documented by: Aspirin (Aspirin E.C. 81 Mg Tablet) 81 mg PO DAILY@0800 [facility] Last Admin: 11/21/20 08:03 Dose: 81 mg Documented by: Buspirone HCl (Buspirone 5 Mg Tablet) 10 mg PO TID [facility] Last Admin: 11/21/20 05:55 Dose: 10 mg Documented by: Clopidogrel Bisulfate (Clopidogrel Bisulfate 75 Mg Tablet) 75 mg PO DAILY [facility] Last Admin: 11/21/20 08:03 Dose: 75 mg Documented by: Cyclobenzaprine HCl (Cyclobenzaprine Hcl 5 Mg Tablet) 5 mg PO TID PRN PRN PRN Reason: MUSCLE SPASM Last Admin: 11/21/20 05:55 Dose: 5 mg Documented by: Duloxetine HCl (Duloxetine Hcl 30 Mg Capsule) 30 mg PO DAILY [facility] Last Admin: 11/21/20 08:03 Dose: 30 mg Documented by: Enoxaparin Sodium (Enoxaparin 40 Mg/0.4 Ml Syringe) 40 mg SC DAILY [facility] Last Admin: 11/21/20 08:04 Dose: 40 mg Documented by: Lorazepam (Lorazepam 1 Mg Tablet) 2 mg PO Q2H PRN PRN; Protocol PRN Reason: CIWA score > 8 but <15 Last Admin: 11/21/20 08:08 Dose: 2 mg Documented by: Lorazepam (Lorazepam 1 Mg Tablet) 2 mg PO UD PRN; Protocol PRN Reason: CIWA score >/=15. Lorazepam (Lorazepam 2 Mg/Ml Syringe) 2 mg IV Q2H PRN PRN; Protocol PRN Reason: CIWA score > 8 but <15 Lorazepam (Lorazepam 2 Mg/Ml Syringe) 2 mg IV UD PRN; Protocol PRN Reason: CIWA score >/=15. Metoprolol Succinate (Metoprolol(Xl)Succ 100 Mg Tablet) 100 mg PO DAILY [facility] Last Admin: 11/21/20 08:04 Dose: 100 mg Documented by: Morphine Sulfate (Morphine 4 Mg/Ml Syringe) 4 mg IV Q3H PRN PRN PRN Reason: Pain Score 6-10 Last Admin: 11/17/20 19:01 Dose: 4 mg Documented by: Multivitamins/Minerals (Multivitamins,Ther W-Minerals Tablet) [facility] Last Admin: 11/21/20 08:04 Dose: 1 tablet Documented by: Ondansetron HCl (Ondansetron 4 Mg/2 Ml Vial) 4 mg IV Q8H PRN PRN PRN Reason: NAUSEA Oxycodone HCl (Oxycodone 5 Mg Tablet) 5 - 10 mg PO Q4H PRN PRN PRN Reason: Pain Score 4-10 Last Admin: 11/21/20 08:08 Dose: 10 mg Documented by: Promethazine HCl (Promethazine 25 Mg/Ml Syringe) 12.5 mg IM Q6H PRN PRN; Protocol PRN Reason: NAUSEA/VOMITING Senna/Docusate Sodium (Senna/Docusate Sodium 1 Tablet) 2 tablet PO BID [facility] Last Admin: 11/21/20 08:02 Dose: 1 tablet Documented by: Sodium Chloride (0.9% Saline Lock 10 Ml Syringe) 10 - 40 ml IV UD PRN PRN Reason: SALINE FLUSH Last Admin: 11/19/20 20:35 Dose: 10 ml Documented by: STROKE Vital Signs/Narrative: Vital Signs Temp Pulse Resp BP Pulse Ox 11/21/20 08:04 98.0 F 68 16 121/71 H 96 Medical Necessity - Tobacco Use Smoking Status: Current every day smoker Tobacco Use: Cigarettes Assessment/Plan All Active Problems (Last Reviewed 11/15/20 @ 05:[address] Luciano Murphy MD) Femoral neck fracture (Acute) 1. Acute traumatic displaced subcapital fracture of the left hip secondary to mechanical fall status post repair 11/17/2020 -Continue with PT/OT as well as pain meds -We will evaluate for possible placement in rehab unit, he is refusing SNF 2. CAD status post stents/HTN/HLD/history of V. tach status post ICD -Blood pressure is stable -Recent echo with an EF of 45% -Continue with metoprolol, aspirin, Plavix -ICD was interrogated and normal, continue with amiodarone 3. Alcohol dependence/tobacco dependence/anxiety/depression -Currently not in withdrawal, continue with CIWA -Did not want a nicotine patch, encouraged cessation -Continue with BuSpar and Cymbalta DVT: Lovenox Inpatient E&M: 62667 Subs Hosp L2
[2020-11-21 16:00] VITALS: BP 124/68; PULSE 70; RESP 16; TEMP 36.7; O2SAT 96
[2020-11-21 22:00] VITALS: BP 110/71; PULSE 62; RESP 18; TEMP 36.7; O2SAT 99
[2020-11-22] MEDS: oxyCODONE 5 MG Tablet PO ×3 (02:49→09:56)
[2020-11-22 04:00] VITALS: BP 126/66; PULSE 75; RESP 18; TEMP 37; O2SAT 98
[2020-11-22] MEDS: busPIRone 5 MG Tablet 10 MG PO ×2 (05:25→13:20)
[2020-11-22] MEDS: cycloBENZAPRine HCl 5 MG TABLET PO (05:25)
[2020-11-22] MEDS: Acetaminophen 500 MG Tablet 1000 MG PO ×2 (05:25→13:20)
[2020-11-22 07:00] VITALS: BP 105/68; PULSE 79; RESP 18; TEMP 36.6; O2SAT 97
--- NOTE | 2020-11-22 08:51 | CASEMGMT ---
Addendum entered by Geno Dominguez 11/22/20 10:11: SW updated pt on approval to [facility] and that pt will discharge to [facility] today. Pt states understanding. Plan: [facility] Today Original Note: Social Work Note SW received message from Amanda with [facility] stating pt has been approved for [facility], pt can admit today. Geno Dominguez PARTS SALES ASSOCIATE, LASER OPERATOR
[2020-11-22 09:48] VITALS: BP 105/68; PULSE 79; RESP 18; TEMP 37.1; O2SAT 97
--- NOTE | 2020-11-22 09:50 | TREXTCAR_ITS ---
- Diet 11/19/20 11:44 Diet: Cardiac - Heart Healthy Is pt able to select menu?: Yes Diet Comments: Except meds with sips - Routine Orders/Code Status Code Status: Full Code - Wound(s) Left forearm Wound Type: Multiple abrasions from a fall left hip Wound Type: Surgical Incision - Therapies Weight Bearing: Weight bearing as tolerated Extremity Affected:: Left Lower Physical Therapy: Eval and Treat Occupational Therapy: Eval and Treat - Allergies/Procedures Done in Hospital Allergies/Adverse Reactions: Allergies Iodine and Iodide Containing Produc Allergy (Severe, Verified 11/15/20 03:28) Rash ezetimibe [From Zetia] Adverse Reaction (Severe, Verified 11/15/20 03:28) Myalgias Rogufsw-Hvt-Pfb Reductase Inhibitor Adverse Reaction (Severe, Verified 11/15/20 03:28) Elevated Liver Enzymes - Type of Care/Length of Stay Estimated LOS: Convalescent Care Less Than 30 days Type of Care Needed: Skilled Rehab Potential: Good Prognosis: Good - Additional Orders/Day of Discharge Day of Discharge: 11/22/20 - Dietary and Speech Recommendations Dietitian Recommendations/Changes: Will change diet to cardiac and d/c ensure enlive w/ medpass since pt is refusing it. - Follow Up Care Primary Care Physician: Shay Del Rosario III, MD [Primary Care Provider] - Please Follow Up With: Luis Branch NP, MERCHANDISING DIRECTOR-C Please Follow Up With: Phillip Merritt DO When: 2 weeks
[2020-11-22] MEDS: Multivitamins,Ther W-Minerals Tablet 1 TABLET PO (09:53)
[2020-11-22] MEDS: Amiodarone 200 MG Tablet PO (09:53)
[2020-11-22] MEDS: Clopidogrel Bisulfate 75 MG Tablet PO (09:53)
[2020-11-22] MEDS: Aspirin E.C. 81 MG Tablet PO (09:53)
[2020-11-22] MEDS: DULoxetine Hcl 30 MG Capsule PO (09:53)
[2020-11-22] MEDS: Senna/Docusate Sodium 1 Tablet 2 TABLET PO (09:54)
[2020-11-22] MEDS: Enoxaparin 40 MG/0.4 ML Syringe SC (09:54)
[2020-11-22 09:56] VITALS: PULSE 79
[2020-11-22] MEDS: Metoprolol(XL)Succ 100 MG Tablet PO (09:56)
[2020-11-22] MEDS: LORazepam 1 MG Tablet 2 MG PO (10:00)
--- NOTE | 2020-11-22 11:08 | PHA.DC.MR ---
Pharmacy Service has performed discharge medication reconciliation for this patient. The patient's discharge medication list was reviewed for discrepancies and discrepancies were resolved. Home Medications nitroglycerin 0.4 mg sublingual tablet 0.4 mg SUBLINGUAL Q5M PRN #25 tab 05/08/18 Multivit-Min/FA/Lycopen/Lutein [Centrum Silver Men Tablet] 1 ea PO QODAY 12/13/19 aspirin 81 mg tablet,delayed release 81 mg PO DAILY #90 tab 01/04/20 amiodarone 200 mg tablet 200 mg PO BID #180 tab 06/15/20 clopidogrel 75 mg tablet 75 mg PO DAILY 09/15/20 buspirone 10 mg tablet 10 mg PO TID 10/03/20 metoprolol succinate 100 mg tablet,extended release 24 hr 100 mg PO DAILY #90 tab 11/02/20 Duloxetine HCl 30 mg PO DAILY 11/15/20 Oxycodone [Oxyir] 5 - 10 mg PO Q4H PRN PRN 5 Days tab 11/22/20
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
== END 2020-11-22 13:40 | DRG 323 ==
LOC: ED 04:04 → PCU 04:40 → MS3 11-18 07:32
PROVIDERS: Anesthesiology; Internal Medicine; Nurse Practitioner Family; Orthopaedic Surgery; Admitting Provider Hospitalist; Emergency Provider Emergency Medicine; PCP Family Medicine; Visit Provider Family Medicine
PROC: 0SRS0JZ Replacement of Left Hip Joint, Femoral Surface with Synthetic Substitute, Open Approach (ICD-10-PCS; CPT 27125; principal; 2020-11-17 12:40)
DX: S72.012A Unspecified intracapsular fracture of left femur, initial encounter for closed fracture (principal); S51.812A Laceration without foreign body of left forearm, initial encounter; Z95.810 Presence of automatic (implantable) cardiac defibrillator; W18.30XA Fall on same level, unspecified, initial encounter; Y93.9 Activity, unspecified; Y92.9 Unspecified place or not applicable; F41.9 Anxiety disorder, unspecified; F32.9 Major depressive disorder, single episode, unspecified; I25.10 Atherosclerotic heart disease of native coronary artery without angina pectoris; I25.5 Ischemic cardiomyopathy; I47.2 Ventricular tachycardia; J44.9 Chronic obstructive pulmonary disease, unspecified; I10 Essential (primary) hypertension; G25.81 Restless legs syndrome; E78.5 Hyperlipidemia, unspecified; I25.2 Old myocardial infarction; E78.00 Pure hypercholesterolemia, unspecified; F17.210 Nicotine dependence, cigarettes, uncomplicated; F10.20 Alcohol dependence, uncomplicated; Z79.82 Long term (current) use of aspirin; Z79.02 Long term (current) use of antithrombotics/antiplatelets; Z79.899 Other long term (current) drug therapy
CPT/HCPCS: 36415; 70450; 71045; 73502; 80048; 80076; 82306; 85025; 85027; 85610; 86850; 86900; 86901; 87426; 88307; 88311; 93005; 93306; 97110; 97116; 97163; 97166; 97530; 97535; 99251; 99285; 99406; C1776; J7120; Q9957; A4216; C8929; G0463; J2405

== ENCOUNTER 2020-11-22 13:49 | Inpatient (IN) | payer MEDICAID, SELFPAY ==
[2019-02-17 13:19] VITALS: BMI 29.2
[2020-11-17 11:08] VITALS: BMI 27.3
[2020-11-22 13:57] VITALS: BP 142/89; PULSE 79; RESP 18; TEMP 36.5; O2SAT 97; BMI 26.5
[2020-11-22 19:35] VITALS: BP 103/57; PULSE 79; RESP 18; TEMP 37.2; O2SAT 94
[2020-11-22 21:05] VITALS: BMI 26.6
[2020-11-22] MEDS: oxyCODONE 5 MG Tablet PO (21:47)
[2020-11-22] MEDS: Amiodarone 200 MG Tablet PO (21:58)
[2020-11-22] MEDS: busPIRone 5 MG Tablet 10 MG PO (21:58)
[2020-11-22] MEDS: Senna/Docusate Sodium 1 Tablet 2 TABLET PO (21:58)
[2020-11-22 22:00] VITALS: PULSE 79; RESP 16; O2SAT 94
--- NOTE | 2020-11-23 02:41 | NURSING ---
Staff in room with pt for repositioning from recliner back to bed once again. Pain meds prn provided. Pt states she can't get comfortable. DRILL OPERATOR AUTOMATIC ambulated in robbins for about 50 feet. Continuing to monitor.
[2020-11-23] MEDS: oxyCODONE 5 MG Tablet PO ×4 (03:20→22:19)
--- NOTE | 2020-11-23 03:26 | NURSING ---
PRN pain meds provided for 5/10 pain. Pt reports that he has been awake for awhile with pain but failed to alert staff as he states he was told he could not have more pain meds till a.m. This staff did not tell pt when pain med could be available next. Pt states he is uncomfortable in bed. Pillows and repositioning provided. Pt informed to alert staff when painful and needs assistance. After using urinal, pt reports feeling like he always has to go to the bathroom but when bladder scanned 43mL remains and pt denies pain with urination.
[2020-11-23] MEDS: busPIRone 5 MG Tablet 10 MG PO ×3 (05:08→22:20)
[2020-11-23] MEDS: Clopidogrel Bisulfate 75 MG Tablet PO (07:56)
[2020-11-23] MEDS: Aspirin E.C. 81 MG Tablet PO (07:56)
[2020-11-23] MEDS: DULoxetine Hcl 30 MG Capsule PO (07:56)
[2020-11-23] MEDS: Amiodarone 200 MG Tablet PO ×2 (07:56→22:20)
[2020-11-23 07:57] VITALS: PULSE 76
[2020-11-23] MEDS: Senna/Docusate Sodium 1 Tablet 2 TABLET PO (07:57)
[2020-11-23] MEDS: Metoprolol(XL)Succ 100 MG Tablet PO (07:57)
[2020-11-23] MEDS: Menthol/Lanolin/Calamine/Znox 113 GM Tube 1 APPLIC TOPICAL ×2 (08:10→22:22)
[2020-11-23 08:56] VITALS: BP 107/54; PULSE 76; RESP 18; TEMP 37; O2SAT 91
--- NOTE | 2020-11-23 12:24 | REHABEVAL_ITS ---
Admission Information Primary Diagnosis:: debility due to recent L femur fracture - and subsequent hemiarthroplasty on 11/17/20 Actual Problem List:: Falls, Skin Intergrity, Pain, ALteration in Cmfrt, Depression, Mobility Impaired, Self Care Deficit, BP, Hypertension, Alteration- Leisure Activ. Potential Problem List:: DVT, Bleeding, Infection, UTI, Aspiration, Falls, Skin Integrity, Depression Risk of Complications DVT: PARMINDER Vinson, - - Aspirin 81 mg twice daily Bleeding: Monitor Lab Values, Nursing to Teach Precautions for anti-coagulation therapy., Wound, if applicable, to be assessed every shift., Stroke patients assessed for lethargy or change in status. Infection: Clinical Staff to Monitor for S/S of infection:, S/S of infection include fever, redness, warmth, etc. Urinary Tract Infection: Monitor for frequency, burning, discomfort, or incontinence., Nursing will obtain urine sample for urinalysis and C&S when ordered. Aspiration: Clinical staff will monitor for coughing, drooling, congestion., Speech will evaluate swallowing and dsyphasia., Nursing will monitor patient swallowing during meals. Falls: Patient will be evaluated for Fall Precautions, Patient will be placed on Fall Precautions as indicated per protocol. Skin Breakdown: Nursing will assess skin daily using assessment tool., Nursing will place on Skin Breakdown Precautions as indicated. Pain: Clinical staff will assess patient's pain level per protocol., Medications will be given, if needed, and the pain level reassessed., Other methods: Massage, distraction, decrease stimulus, etc. used PRN. Plan of Care Patient requires physician specializing in physical medicine and rehab oversight to provide close medical supervision of rehab issues including: Pain Management, Sleep Problems, Bowel and Bladder, Medical and co-morbidity Management, DVT prophylaxis, Rehabilitation Leadership, Coordination of treatment team Patient needs Physical Therapy: For a minimum of 1 hour, At least 5 out of 7 days Patient needs Physical Therapy to improve:: Mobility, Mobility, Mobility, Strengthening, Transfers, Stretching, ROM, Endurance, Stairs, Gait, Balance Patient needs Occupational Therapy: For a minimum of 1 hour, At least 5 out of 7 days Patient needs Occupational Therapy to improve ADL's incl.: Eating, Grooming, Bathing, Dressing, Toileting, Toilet transfers, Community Reintegration, Higher functioning activities, Household tasks, Adaptive Equipment, Splinting, Other activities as determined Patient requires 24/7 Rehabilitation Nursing for: Pain Issues, Identifying and preventing risk factors, Monitoring and reporting current medical conditions, Assisting with ambulation, transfer, and all ADL's, Teaching patients about di sease process and medications, Family teaching, Providing safe environment, Bowel and Bladder Issues, Skin integrity, Medication Management Patient needs Principal Cloud Architect/ Case Management for: Discharge Planning, Arranging Home Equipment or Services, Family Interventions Patient needs Dietary and Nutrition Services for: Adequate Nutrition, Nutrition al Supplements, Nutritional Education Goals Patient will remain: free from falls, or injury at time of discharge. Patient will perform bed mobility at: MOD I level of assist. Patient will complete transfers from bed to chair at: MOD I level of assist. Patient will ambulate: with MOD I assist, with LRD, - - 500 feet Patient will propel wheelchair: - - Not applicable Patient will complete upper body dressing at: MOD I level of assist. Patient will complete lower body dressing at: MOD I level of assist. Patient will complete toileting at: MOD I level of assist. Patient will perform bathing at: MOD I level of assist. Patient will complete grooming at: MOD I level of assist. Patient will complete home management skills at: MOD I level of assist. Patient will achieve: 12 stairs, at MOD I assist Patient will have pain level of: of 3 or less Patient's skin will: remain intact, free from infection. Patient will receive: adequate nutrition. Discharge Planning Pt Prognosis for Sig. Practical Improv. w/in Reasonable Time: Good Estimated Length of stay (days): 14 Anticipated D/C Destination: Home with Outpt Therapy Was Preadmission Assessment Accurate?: Yes
--- NOTE | 2020-11-23 12:24 | PCM.HP.STD ---
Problem List (1) Femoral neck fracture Status: Acute (2) Dyspnea Status: Chronic (3) Stage 1 mild COPD by GOLD classification Status: Chronic Comment: FEV1 87% of predicted (4) History of left heart catheterization (LHC) Status: Chronic Comment: Will obtain old film from [place] from 2 years ago to see if LAD lesion has worsened. Apparently pt underwent FFR of this portion of LAD and was found to be 0.81 so no intervention was performed. He has had no AICD discharges since his cath at [place]. Intervention of this lesion is at moderate risk of the stent covering over DIAG, as well as eccentric calcium in proximal LAD sequeing into mid LAD lesion. I believe we could place the stent at the ostium of the mid LAD with minimal encroachment into DIAG, but pt has no anginal symptoms or change in his exercise capacity. I will obtain old films from [place] to compare mid LAD stenosis; if it appears to be worse, then will return for elective PCI of LAD with double wires. (5) Hyperlipidemia Status: Chronic (6) Atherosclerotic heart disease of [place] coronary artery without angina pectoris Status: Chronic Qualifiers: Comment: 12/28/1999 distal RCA was thrombectomized and stent placed; 04/01/2000 PTCA of distal RCA and ostium of the PDA for in-stent stenosis. LHC 11/2005. (7) Ischemic cardiomyopathy Status: Chronic (8) Ventricular tachycardia Status: Chronic Comment: 10/30/17 tsfer to [facility] with [place] storm (9) Premature heartbeats Status: Chronic (10) Presence of automatic (implantable) cardiac defibrillator Status: Chronic Comment: ICD Implant: 11/2005; ICD generator replacement 08/23/2010 (11) History of coronary artery stent placement Status: Chronic Comment: 12/28/1999 distal RCA was thrombectomized and stent placed; 04/01/2000 PTCA of distal RCA and ostium of the PDA for in-stent stenosis. Successful PTCA/DEMETRIO to Mid LAD with a 3.0 x 28 Promus Synergy, post dilated in middle stent with a 3.0 x 12 NC Balloon; 75%-->0%, no dissection. Successful PTCA/DEMETRIO Mid LAD across bifurcation of DIAG#1 and telescoped into mid LAD stent with a 4.0 x 28 Promus Synergy, post dilated in the proximal LAD with a 4.0 x 8 and a 4.5 x 8 NC Balloon; 855-->0%, no dissection. 02/17/2019 Successful PCI with PTCA to the ostial DIAG #1 through struts of LAD stent with a 2.5 x 8 Ballloon; 70%-->30%, no dissection. NO additional stenting needed or attempted. (12) Benign hypertension Status: Chronic (13) Tobacco user Status: Chronic (14) History of alcoholism Status: Chronic (15) Physical debility Status: Acute Comment: Due to recent femur fracture and ORIF and also to chronic debility due to chronic alcoholism and non-compliance. (16) Acute blood loss anemia Status: Acute (17) Hyponatremia Status: Acute (18) Abnormal LFTs Status: Acute History of Present Illness Date of Admission: 11/22/20 Chief Complaint: Debility due to displaced subcapital Left hip fracture with subsequent hemiarthroplasty of the left hip on 11/17/[address] Phillip Merritt. Mr. Paulino is a 65 year old M with a PMH of CAD, tobacco dependence, alcoholism, [place], stage I mild COPD by gold classification, hyperlipidemia, mutiple PTCA/stents (to the RCA,ostium, LAD, ostial diag #1), Ischemic cardiomyopathy ( +/- CM due to ETOH ), hx of AICD and HTN who presented to the ED at [facility] on 11/15/20 after a fall. He sustained a subcapital fracture of the Left hip and a left elbow laceration. He had a cemented hemiarthroplasty of the Left hip on 11/17/[address] Merritt. He was transferred to the inpatient rehab unit on 11/22/20 for > 3 hours of therapy daily to restore him at or near his prior level of function. He has no support and home and at this time he is not able to care for himself. Prior to coming to the ED for the severe hip pain he drank a half bottle of wine. Sodium at presentation to the emergency room was 124. Random blood sugar was elevated at 128. Vitamin D level was low at 14.3. PT/INR was normal. Hemoglobin was 15.6 with macrocytic indices and the platelets were within normal limits. AST and ALT were elevated at 63 and 80 respectively. Echocardiogram done on November 15, 2020 showed a decreased ejection fraction at 45% with mild to moderate global left ventricular systolic dysfunction. He has denied being an alcoholic and states he drinks 3 glasses of wine about 4 days a week in August when he was to be admitted to the hospital for acute encephalopathy with visual hallucinations but, he left because he had to take his dog out. His ETOH level was 85 on the first visit. He made a second visit to the ED that day and was admitted for acute encephalopathy. Interestingly enough he was to be in probate court on 08/26 which was 3 days after his admission. He required no specific tx in the hospital and was seen by Catalina who said he did not need admitted to psych. Overall he has had 4 admissions to the hospital in the past year. He is already requesting Ativan. He has been to rehab for alcohol in the past. His in December of 2019 due to complications from chronic lung disease. His mother later that month. He has started smoking again and he has also been drinking large amounts of beer. He does not have a car and he has been isolated in his residence. Most of his friends have moved away. He retired 3 or 4 years ago and is on SS. His was on hospice and Thanh has been taking advantage of the counselling services offered by hospice and he has been talking with ROLANDO Case on the phone frequently. He was started on on duloxetine and BuSpar by Dr. Shay Del Rosario in May and he thinks they have helped. He did not have DT's in the hospital but the sodium was only 124 at presentation to the hospital due to beer potomania and he admitted to drinking at least 1/2 bottle of wince prior to coming to the ED. He has no plan for what to do if he starts drinking again when he leaves rehab. He has not talked with his son in or his sister in 3 years. His son has been in nursing home a few times and blames his problems on his mother and father. He does sometimes talk with his brother on the phone. He tells me that he can not go to [facility] for alcohol addiction because he has to take a cab and he does not have money for that. His [id number] is contesting Thanh's wifes will and it will have to go to probate court and this is also causing him a lot a anxiety for which he self medicates with ETOH to control. Past Medical History Past Medical History (Chronic Problems): Chronic Problems (Last Reviewed 11/15/20 @ 05:[address] Luciano Murphy MD) Dyspnea (Chronic) Stage 1 mild COPD by GOLD classification (Chronic) FEV1 87% of predicted History of left heart catheterization (LHC) (Chronic 01/21/19) Will obtain old film from [place] from 2 years ago to see if LAD lesion has worsened. Apparently pt underwent FFR of this portion of LAD and was found to be 0.81 so no intervention was performed. He has had no AICD discharges since his cath at [place]. Intervention of this lesion is at moderate risk of the stent covering over DIAG, as well as eccentric calcium in proximal LAD sequeing into mid LAD lesion. I believe we could place the stent at the ostium of the mid LAD with minimal encroachment into DIAG, but pt has no anginal symptoms or change in his exercise capacity. I will obtain old films from [place] to compare mid LAD stenosis; if it appears to be worse, then will return for elective PCI of LAD with double wires. Hyperlipidemia (Chronic) Atherosclerotic heart disease of [place] coronary artery without angina pectoris (Chronic) 12/28/1999 distal RCA was thrombectomized and stent placed; 04/01/2000 PTCA of distal RCA and ostium of the PDA for in-stent stenosis. [facility] 11/2005. Ischemic cardiomyopathy (Chronic) Ventricular tachycardia (Chronic) 10/30/17 tsfer to [facility] with [place] storm Premature heartbeats (Chronic) Presence of automatic (implantable) cardiac defibrillator (Chronic 10/31/17) ICD Implant: 11/2005; ICD generator replacement 08/23/2010 History of coronary artery stent placement (Chronic 02/17/19) 12/28/1999 distal RCA was thrombectomized and stent placed; 04/01/2000 PTCA of distal RCA and ostium of the PDA for in-stent stenosis. Successful PTCA/DEMETRIO to Mid LAD with a 3.0 x 28 Promus Synergy, post dilated in middle stent with a 3.0 x 12 NC Balloon; 75%-->0%, no dissection. Successful PTCA/DEMETRIO Mid LAD across bifurcation of DIAG#1 and telescoped into mid LAD stent with a 4.0 x 28 Promus Synergy, post dilated in the proximal LAD with a 4.0 x 8 and a 4.5 x 8 NC Balloon; 855-->0%, no dissection. 02/17/2019 Successful PCI with PTCA to the ostial DIAG #1 through struts of LAD stent with a 2.5 x 8 Ballloon; 70%-->30%, no dissection. NO additional stenting needed or attempted. Benign hypertension (Chronic) Tobacco user (Chronic) History of alcoholism (Chronic) Medical History: Medical History (Last Reviewed 11/24/20 @ 17:[address] Kristina Zaragoza, DO) Urinary tract infection (Inactive) N39.0 Dehydration (Inactive) E86.0 Declining functional status (Inactive) R53.81 Cellulitis and abscess of upper extremity (Inactive) L03.119, L02.419 left elbow abscess Dyspnea (Chronic) R06.00 Stage 1 mild COPD by GOLD classification (Chronic) J44.9 FEV1 87% of predicted Hyperlipidemia (Chronic) E78.5 Atherosclerotic heart disease of [place] coronary artery without angina pectoris (Chronic) I25.10 12/28/1999 distal RCA was thrombectomized and stent placed; 04/01/2000 PTCA of distal RCA and ostium of the PDA for in-stent stenosis. [facility] 11/2005. Ischemic cardiomyopathy (Chronic) I25.5 Ventricular tachycardia (Chronic) I47.2 10/30/17 tsfer to [facility] with [place] storm Premature heartbeats (Chronic) I49.40 Benign hypertension (Chronic) I10 Tobacco user (Chronic) Z72.0 History of alcoholism (Chronic) F10.21 History of echocardiogram Onset Date: 04/03/17 Z92.89 EF 40-45% History of stress test Onset Date: 02/16/10 Z92.89 Allergies Iodine and Iodide Containing Produc Allergy (Severe, Verified 11/15/20 03:28) Rash ezetimibe [From Zetia] Adverse Reaction (Severe, Verified 11/15/20 03:28) Myalgias Neyvjdt-Opv-Uxb Reductase Inhibitor Adverse Reaction (Severe, Verified 11/15/20 03:28) Elevated Liver Enzymes Home Medications: Ambulatory Orders Medication Instructions Recorded nitroglycerin 0.4 mg sublingual 0.4 mg SUBLINGUAL Q5M PRN #25 tab 05/08/18 tablet Multivit-Min/FA/Lycopen/Lutein 1 ea PO QODAY 12/13/19 [Centrum Silver Men Tablet] aspirin 81 mg tablet,delayed 81 mg PO DAILY #90 tab 01/04/20 release amiodarone 200 mg tablet 200 mg PO BID #180 tab 06/15/20 clopidogrel 75 mg tablet 75 mg PO DAILY 09/15/20 buspirone 10 mg tablet 10 mg PO TID 10/03/20 Duloxetine HCl 30 mg PO DAILY 11/15/20 Metoprolol Succinate [Toprol Xl] 100 mg PO DAILY 11/22/20 Oxycodone [Oxyir] 5 - 10 mg PO Q4H PRN PRN 5 Days 11/22/20 tab Surgical History: Surgical History (Last Reviewed 11/24/20 @ 17:[address] Kristina Zaragoza, ) History of left heart catheterization (LHC) (Chronic) Onset Date: 01/21/19 Z98.890 Will obtain old film from [place] from 2 years ago to see if LAD lesion has worsened. Apparently pt underwent FFR of this portion of LAD and was found to be 0.81 so no intervention was performed. He has had no AICD discharges since his cath at [place]. Intervention of this lesion is at moderate risk of the stent covering over DIAG, as well as eccentric calcium in proximal LAD sequeing into mid LAD lesion. I believe we could place the stent at the ostium of the mid LAD with minimal encroachment into DIAG, but pt has no anginal symptoms or change in his exercise capacity. I will obtain old films from [place] to compare mid LAD stenosis; if it appears to be worse, then will return for elective PCI of LAD with double wires. Presence of automatic (implantable) cardiac defibrillator (Chronic) Onset Date: 10/31/17 Z95.810 ICD Implant: 11/2005; ICD generator replacement 08/23/2010 History of coronary artery stent placement (Chronic) Onset Date: 02/17/19 Z95.5 12/28/1999 distal RCA was thrombectomized and stent placed; 04/01/2000 PTCA of distal RCA and ostium of the PDA for in-stent stenosis. Successful PTCA/DEMETRIO to Mid LAD with a 3.0 x 28 Promus Synergy, post dilated in middle stent with a 3.0 x 12 NC Balloon; 75%-->0%, no dissection. Successful PTCA/DEMETRIO Mid LAD across bifurcation of DIAG#1 and telescoped into mid LAD stent with a 4.0 x 28 Promus Synergy, post dilated in the proximal LAD with a 4.0 x 8 and a 4.5 x 8 NC Balloon; 855-->0%, no dissection. 02/17/2019 Successful PCI with PTCA to the ostial DIAG #1 through struts of LAD stent with a 2.5 x 8 Ballloon; 70%-->30%, no dissection. NO additional stenting needed or attempted. Hx of knee surgery Z98.890 Surgical History: angioplasty, pacemaker implantation - PM/AICD for [place], - - right knee arthroscopy Psychiatric History: Anxiety, Depression Lives: Alone - his in December of 2019 Smoking Status: Current every day smoker Tobacco Use: Cigarettes - usually about a pack a day Alcohol: Heavy Drugs: None - *Family History Maternal Family History: Family History (Last Reviewed 11/24/20 @ 17:[address] Kristina Zaragoza, DO) Grandmother Myocardial infarction Grandfather Myocardial infarction Review of Systems Constitutional: Denies: Anorexia, Chills, Fever, Weight Change Eyes: Denies: Vision Change HEENT: Denies: Difficulty Hearing, Difficulty Swallowing, Head Aches, Nasal Congestion, Sinus Congestion, Sinus Drainage, Sore Throat, Visual Changes Cardiovascular: Denies: Chest Pain, Claudication, Chest Pressure, Chest Tightness, Edema, Light Headedness, Orthopnea, Palpitations, Paroxysmal Noc. Dyspnea, Syncope Respiratory: Denies: Cough, Shortness of Breath, Shortness of breath at rest, Sputum production Gastrointestinal: Denies: Abdominal Pain, Constipation, Diarrhea, Dyspepsia, Nausea, Vomiting Genitourinary: Denies: Dysuria, Incontinence, Retention, Urgency Musculoskeletal: Reports: Leg Pain - from the fracture and the surgery to repair. Denies: Joint Pain, Joint Tenderness Skin: Reports: Wounds - incision for the hip repair. Denies: Jaundice, Pruritis, Rash Neurological: Denies: Change in Speech, Slurred speech, Confusion, Difficulty swallowing, Focal weakness, Headaches, Numbness, Tingling, Tremor, Seizures Psychiatric: Denies: Anxiety, Depression, Homicidal Ideations, Suicidal Ideations Endocrine: Denies: Change in Body Habitus, Heat/ Cold Intolerance, Hx of Thyroiditis Hematologic/ Lymphatic: Reports: Easy Bruising. Denies: Easy Bleeding, Hx of blood clot VTE Information - Inpt Only VTE Present on Admission: No VTE Mechan Device Prophylaxis: Knee High PARMINDER Hose VTE Pharm Prophylaxis ordered?: Yes Patient Problems: Active and Suspected Problems (Last Reviewed 11/15/20 @ 05:[address] Luciano Murphy MD) Femoral neck fracture (Acute) Physical debility (Acute) Due to recent femur fracture and ORIF and also to chronic debility due to chronic alcoholism and non-compliance. Acute blood loss anemia (Acute) Hyponatremia (Acute) Abnormal LFTs (Acute) - Physical Exam Vitals/I&O's: Vital Signs Temp Pulse Resp BP Pulse Ox 98.6 F 76 18 107/54 L 91 11/23/20 08:56 11/23/20 08:56 11/23/20 08:56 11/23/20 08:56 11/23/20 08:56 Oxygen Delivery Method Room Air Weight: 206 lb 12.697 oz Body Mass Index (BMI) 26.5 Intake and Output for Last 24 Hours 11/21/20 11/22/20 11/23/20 23:59 23:59 23:59 Intake Total 640 / 640 560 / 560 Output Total 500 / 500 600 / 600 Balance 140 / 140 -40 / -40 General: Alert, Oriented x3, Cooperative, No apparent distress, Well developed, Well nourished HEENT: Atraumatic, PERRLA, EOMI, Normocephalic Oral: Moist Mucosa, No Gingival or Mucosal Lesions/ Ulcerations, - - poor dentition Neck: Supple, No JVD, Negative Carotid Bruits, No Nodes, Trachea Midline Lungs: Clear to auscultation, No rhonchi, No wheeze, No rales, Diminished Cardiovascular: Regular rate, Regular Rhythm, Normal S1, Normal S2, No murmurs, No Gallop, - - the heart sounds are distant Abdomen: Bowel Sounds Present, Soft, Non Tender, Non-Distended Extremities: No clubbing, No cyanosis, No edema, Capillary Refill Less than 3 Seconds, No Calf Tenderness, Peripheral Pulses Normal Skin: No rashes, No breakdown, Incision - left hip - intact and no redness or DC Musculoskeletal: No Tenderness to Palpation of Joints or Extremities, No Muscle Wasting Neurological: Cranial nerves II-XII grossly intact, Neuro grossly intact Psych/Mental Status: Normal Affect, Appropriate Current Medications Amiodarone HCl (Amiodarone 200 Mg Tablet) 200 mg PO BID [facility] Last Admin: 11/23/20 07:56 Dose: 200 mg Documented by: Aspirin (Aspirin E.C. 81 Mg Tablet) [facility] Last Admin: 11/23/20 07:56 Dose: 81 mg Documented by: Bisacodyl (Bisacodyl 10 Mg Suppository) 10 mg RECTAL .PRN X 1 PRN PRN Reason: Constipation Buspirone HCl (Buspirone 5 Mg Tablet) 10 mg PO TID [facility] Last Admin: 11/23/20 05:08 Dose: 10 mg Documented by: Calamine/Phenol (Menthol/Lanolin/Calamine/Znox 113 Gm Tube) 1 applic TOPICAL BID [facility]; Protocol Last Admin: 11/23/20 08:10 Dose: 1 applicatio Documented by: Clopidogrel Bisulfate (Clopidogrel Bisulfate 75 Mg Tablet) 75 mg PO DAILY [facility] Last Admin: 11/23/20 07:56 Dose: 75 mg Documented by: Duloxetine HCl (Duloxetine Hcl 30 Mg Capsule) 30 mg PO DAILY [facility] Last Admin: 11/23/20 07:56 Dose: 30 mg Documented by: Magnesium Hydroxide (Magnesium Hydroxide 30 Ml Udc) 30 ml PO .PRN X 1 PRN PRN Reason: Constipation Metoprolol Succinate (Metoprolol(Xl)Succ 100 Mg Tablet) 100 mg PO DAILY [facility] Last Admin: 11/23/20 07:57 Dose: 100 mg Documented by: Multivitamins/Minerals (Multivitamins,Ther W-Minerals Tablet) 1 tablet PO QODAY@0800 [facility] Nitroglycerin (Nitroglycerin (Inpatient Use) 0.4 Mg Tab.Subl) 0.4 mg SUBLINGUAL Q5M PRN PRN Reason: Angina Oxycodone HCl (Oxycodone 5 Mg Tablet) 5 - 10 mg PO Q4H PRN PRN PRN Reason: Pain Score 4-10 Last Admin: 11/23/20 11:54 Dose: 10 mg Documented by: Senna/Docusate Sodium (Senna/Docusate Sodium 1 Tablet) 2 tablet PO BID [facility] Last Admin: 11/23/20 07:57 Dose: 2 tablet Documented by: Assessment/Plan All Active Problems (Last Reviewed 11/15/20 @ 05:[address] Luciano Murphy MD) Femoral neck fracture (Acute) Physical debility (Acute) Acute blood loss anemia (Acute) Hyponatremia (Acute) Abnormal LFTs (Acute) Impressions 1. Debility secondary to recent fall resulting in a left hip fracture requiring hemiarthroplasty on 11/17/[address] Phillip Merritt. 2. Severe hyponatremia at admission to the hospital due to beer Potomania-the last sodium was 133 3. Macrocytic anemia -due to acute blood loss 4. Abnormal LFTs 5. Hypocalcemia 6. Vitamin D deficiency 7. History of MRSA infection in December 2019 8. History of anxiety/depression 9. History of alcoholism-has been to rehab in the past more than once 10. Tobacco dependence 11. Hypertension 12. Hyperlipidemia 13. Coronary artery disease - multiple stents in the past 14. Cardiomyopathy with recent echo showing a 45% EF with global left ventricular dysfunction 15. History of ventricular tachycardia 16. History of pacemaker/AICD PLAN PT for gait stability OT for ADL's Analgesics as needed Bowel protocol Fall precautions Assess for Anxiety/Depression GI prophylaxis not needed - he has no N/V/epigastric pain and no hx of PUD DVT prophylaxis with PARMINDER hose and ASA 81 mg BID Follow up with Dr. Merritt, Dr. Del Rosario and Manpreet the with hospice for counselling. following DC from Rehab Smoking cessation counselling given. Nicotine patch ordered. I have asked him to make a plan for what he is going to do if when he is discharged he feels the urge to start drinking. program may be an option for him because the hospital van could transport him......will get a consult with prior to DC IF the pt is willing. Increase the Cymbalta to 60 mg Continue the Buspar. No Benzo's - he did not have DT's and he is through the withdrawal period and I do not want to substitute one addictive substance for another. Inpatient E&M: 56449 Init Hosp L3
[2020-11-23] MEDS: Acetaminophen 500 MG Tablet 1000 MG PO ×2 (14:15→22:20)
[2020-11-23] MEDS: Mag Hydrox/Al Hydrox/Simeth 30 ML UDC 15 ML PO (17:44)
[2020-11-23 19:38] VITALS: BP 112/58; PULSE 72; RESP 16; TEMP 36.2; O2SAT 96
[2020-11-23] MEDS: MELATONIN 3 MG TABLET PO (22:20)
[2020-11-24] MEDS: Acetaminophen 500 MG Tablet 1000 MG PO ×3 (05:30→22:07)
[2020-11-24] MEDS: busPIRone 5 MG Tablet 10 MG PO ×3 (05:31→22:05)
[2020-11-24] MEDS: oxyCODONE 5 MG Tablet PO ×4 (05:33→19:44)
[2020-11-24 07:48] VITALS: BP 135/71; PULSE 68; RESP 16; TEMP 36.2; O2SAT 95
[2020-11-24 08:00] VITALS: PULSE 68
[2020-11-24] MEDS: Metoprolol(XL)Succ 100 MG Tablet PO (08:00)
[2020-11-24] MEDS: DULoxetine Hcl 30 MG Capsule PO (08:00)
[2020-11-24] MEDS: Amiodarone 200 MG Tablet PO ×2 (08:01→20:35)
[2020-11-24] MEDS: Multivitamins,Ther W-Minerals Tablet 1 TABLET PO (08:01)
[2020-11-24] MEDS: Clopidogrel Bisulfate 75 MG Tablet PO (08:01)
[2020-11-24] MEDS: Aspirin E.C. 81 MG Tablet PO ×2 (08:01→22:07)
[2020-11-24] MEDS: Menthol/Lanolin/Calamine/Znox 113 GM Tube 1 APPLIC TOPICAL ×2 (08:10→22:06)
--- NOTE | 2020-11-24 13:26 | CASEMGMT ---
Social Work Met with patient for initial assessment. Discussed code status. Pt confirmed full code. Pt states he has a LW and HCPOA - his senior trial attorney, Manpreet Mcintyre, is his POA. Pt states he has no other family/friends. Brother is listed truly as an emergency contact - not for medical updates or to call for Team meetings. Pt states he lives at home alone and uses transportation resources to get around the community/to dr's appts. Offered [employer] resources - pt declined. Explained [facility] insurance with [employer]D 11/29 and continued stay is not guaranteed. See SW assessment for further specifics. SW to continue to follow.
[2020-11-24 22:00] VITALS: BP 127/66; PULSE 65; RESP 16; TEMP 36.7; O2SAT 99
[2020-11-24] MEDS: MELATONIN 3 MG TABLET PO (22:07)
[2020-11-24] MEDS: Senna/Docusate Sodium 1 Tablet 2 TABLET PO (22:08)
[2020-11-25] MEDS: oxyCODONE 5 MG Tablet PO ×6 (00:01→22:56)
[2020-11-25] MEDS: Acetaminophen 500 MG Tablet 1000 MG PO ×3 (05:08→21:23)
[2020-11-25] MEDS: busPIRone 5 MG Tablet 10 MG PO ×3 (05:09→21:20)
[2020-11-25 06:37] LABS: Hematocrit 34.7 % (40-54); Hemoglobin 11.7 g/dL (13.0-16.5); Mean Corp Hgb Conc 33.7 g/dL (32-36); Mean Corpuscular Hgb 34.6 pg (27.0-32.0); Mean Corpuscular Volume 102.7 fL (80-94); Mean Platelet Vol. 9.2 fl (6.2-12.0); Platelet Count 433 K/mm3 (150-450); RBC Distribution Width CV 13.6 % (11.6-14.6); Red Blood Count 3.38 M/mm3 (4.6-6.2); White Blood Count 7.3 K/mm3 (4.4-11.0)
[2020-11-25 07:09] LABS: Anion Gap 4 (5-15); BUN 13 mg/dL (7-18); BUN/Creat Ratio 17.4 RATIO (10-20); Calcium,Total 8.7 mg/dL (8.5-10.1); Chloride 104 mmol/L (98-107); Creatinine, Serum 0.75 mg/dL (0.70-1.30); EST Glomerular Filtration Rate 112 mL/min (>60); Est Glom Filt Rate - Afr Amer 135 mL/min (>60); Estimated Creatinine Clearance 115.69 ml/min; Glucose 91 mg/dL (74-106); Magnesium 2.2 mg/dL (1.6-2.6); Phosphorus 3.6 mg/dL (2.5-4.9); Potassium 4.2 mmol/L (3.5-5.1); Sodium Level 136 mmol/L (136-145)
[2020-11-25 08:10] VITALS: BP 127/67; PULSE 60
[2020-11-25] MEDS: DULoxetine Hcl 60 MG Capsule PO (08:10)
[2020-11-25] MEDS: Aspirin E.C. 81 MG Tablet PO ×2 (08:10→17:17)
[2020-11-25] MEDS: Metoprolol(XL)Succ 100 MG Tablet PO (08:10)
[2020-11-25] MEDS: Clopidogrel Bisulfate 75 MG Tablet PO (08:10)
[2020-11-25] MEDS: Amiodarone 200 MG Tablet PO ×2 (08:10→21:21)
[2020-11-25] MEDS: Calcium Carb/Vitamin D 1 TABLET Tablet PO ×2 (08:10→17:17)
[2020-11-25] MEDS: Menthol/Lanolin/Calamine/Znox 113 GM Tube 1 APPLIC TOPICAL ×2 (08:13→21:20)
[2020-11-25 08:18] VITALS: BP 127/67; PULSE 60; RESP 18; TEMP 36; O2SAT 94
[2020-11-25 19:32] VITALS: BP 112/69; PULSE 63; RESP 18; TEMP 36.2; O2SAT 96
[2020-11-25] MEDS: MELATONIN 3 MG TABLET 6 MG PO (21:21)
[2020-11-25] MEDS: Senna/Docusate Sodium 1 Tablet 2 TABLET PO (21:22)
--- NOTE | 2020-11-26 03:55 | NURSING ---
REVIEWED AND AGREE WITH UTILITY MECHANIC'S FUNCTIONAL ASSESSMENT AND HANDOFF CHARTING.
[2020-11-26] MEDS: Acetaminophen 500 MG Tablet 1000 MG PO ×3 (05:16→21:23)
[2020-11-26] MEDS: busPIRone 5 MG Tablet 10 MG PO ×3 (05:17→21:21)
[2020-11-26] MEDS: oxyCODONE 5 MG Tablet PO ×5 (05:23→21:25)
[2020-11-26 07:41] VITALS: BP 125/63; PULSE 63; RESP 18; TEMP 35.9; O2SAT 97
[2020-11-26] MEDS: Calcium Carb/Vitamin D 1 TABLET Tablet PO ×2 (08:56→17:28)
[2020-11-26] MEDS: Amiodarone 200 MG Tablet PO ×2 (08:56→21:22)
[2020-11-26 08:57] VITALS: BP 125/63; PULSE 63
[2020-11-26] MEDS: DULoxetine Hcl 60 MG Capsule PO (08:57)
[2020-11-26] MEDS: Clopidogrel Bisulfate 75 MG Tablet PO (08:57)
[2020-11-26] MEDS: Metoprolol(XL)Succ 100 MG Tablet PO (08:57)
[2020-11-26] MEDS: Multivitamins,Ther W-Minerals Tablet 1 TABLET PO (08:57)
[2020-11-26] MEDS: Aspirin E.C. 81 MG Tablet PO ×2 (08:57→17:28)
[2020-11-26] MEDS: Menthol/Lanolin/Calamine/Znox 113 GM Tube 1 APPLIC TOPICAL ×2 (08:58→21:22)
--- NOTE | 2020-11-26 12:35 | NURSING ---
up and ambulated around halls with walker and standby assist. tolerated well.
--- NOTE | 2020-11-26 15:14 | NURSING ---
up and ambulated around halls with standby assist, tolerated well
[2020-11-26 19:17] VITALS: BP 129/69; PULSE 71; RESP 16; TEMP 36.3; O2SAT 97
[2020-11-26] MEDS: MELATONIN 3 MG TABLET 6 MG PO (21:22)
[2020-11-27] MEDS: oxyCODONE 5 MG Tablet PO ×4 (02:50→22:04)
[2020-11-27] MEDS: busPIRone 5 MG Tablet 10 MG PO ×3 (06:37→21:11)
[2020-11-27] MEDS: Acetaminophen 500 MG Tablet 1000 MG PO (06:37)
[2020-11-27 07:21] VITALS: BP 137/72; PULSE 65; RESP 16; TEMP 35.7; O2SAT 96
[2020-11-27 07:27] VITALS: PULSE 65
[2020-11-27] MEDS: Clopidogrel Bisulfate 75 MG Tablet PO (07:27)
[2020-11-27] MEDS: Amiodarone 200 MG Tablet PO ×2 (07:27→21:11)
[2020-11-27] MEDS: Calcium Carb/Vitamin D 1 TABLET Tablet PO ×2 (07:27→16:04)
[2020-11-27] MEDS: Aspirin E.C. 81 MG Tablet PO ×2 (07:27→16:04)
[2020-11-27] MEDS: DULoxetine Hcl 60 MG Capsule PO (07:27)
[2020-11-27] MEDS: Metoprolol(XL)Succ 100 MG Tablet PO (07:27)
[2020-11-27] MEDS: Menthol/Lanolin/Calamine/Znox 113 GM Tube 1 APPLIC TOPICAL ×2 (07:28→21:13)
--- NOTE | 2020-11-27 09:31 | CASEMGMT ---
Social Work IDT met with patient for Team meeting. Discussed patient's progress in therapy and nursing. See notes for details. Explained [facility] [employer] insurance with [employer]D 11/29 and continued stay is not guaranteed. Pt is progressing well and may not get approved additional days by insurance. Pt ready to DC home. IDT agreeable for DC 11/29. Pt agreeable to C PT/OT. No DME needs. Pt states he has [facility] and has not contacted them to stop meals while he was in the hospital and gets them every Friday. SW contact [employer] to pause meals and restart 11/30. Pt requesting DC transport. Scheduled [facility] van for 11/29 at 3pm. SW searching for accepting HHC. Will continue to follow. Plan: DC home 11/29 with HHC PT/OT, no DME ALFONSO FuentesW
--- NOTE | 2020-11-27 10:50 | PN_ITS ---
Progress Note Thanh was seen on TEAM rounds today and no family or friends participated. Afebrile VSS Maintaining appropriate oxygen saturation on RA Oral intake is fair to good Discussed with nursing - no problems that need addressed. They report that he takes the Oxycodone to go to sleep. Reviewed the PT/OT notes. He refused ADL's with OT on Friday. He is ambulating 300 ft. Medication list reviewed. He has been taking the Oxycodone as often as he can get it.....every 4 hours. He made a point with the that he will have control over what day [facility] comes to his house. He has mild tremors of his hands. He is alert and oriented X 3, He is lying in bed and appears in NAD He is not wearing PARMINDER hose and the nurses report that he refuses. He does not want the nicotine patch. Lungs - diminished but CTA HRRR - no tachycardia abd - soft and NT no rashes Impressions 1. Debility secondary to recent fall resulting in a left hip fracture requiring hemiarthroplasty on 11/17/[address] Phillip Merritt 2. Hyponatremia-resolved. He had severe hyponatremia at admission secondary to beer Potomania. 3. Alcoholism - has no plan for how he will stay off ETOH once he is discharged. 4. anemia due to acute blood loss with macrocytosis due to alcoholism and suspected chronic liver disease 5. elevated transaminases 6. CAD 7. tobacco dependence His insurance review date in 11/29 and since he is ambulating 300 ft they are not likely to renew. We set DC date for 11/29 and he will go home with [facility]. I encouraged him NOT to refuse any therapy sessions since he is still having some trouble dressing and with ADL's. Continue with the increased dose of Cymbalta at [place] [facility] Vital Signs/Narrative: Vital Signs Temp Pulse Resp BP Pulse Ox 11/27/20 07:27 65 11/27/20 07:21 96.3 F L 65 16 137/72 H 96 Inpatient E&M: [id number] Subs Hosp L2
[2020-11-27] MEDS: Ibuprofen 600 MG Tablet PO ×2 (13:43→21:15)
[2020-11-27] MEDS: Mag Hydrox/Al Hydrox/Simeth 30 ML UDC 15 ML PO (18:24)
[2020-11-27 19:14] VITALS: BP 116/68; PULSE 65; RESP 18; TEMP 36.6; O2SAT 97
[2020-11-27] MEDS: MELATONIN 3 MG TABLET 6 MG PO (21:15)
[2020-11-27 22:00] VITALS: PULSE 66; RESP 16; O2SAT 97
--- NOTE | 2020-11-27 22:06 | NURSING ---
Oxyir prn provided when assessed for pain after Ibuprofen and pain level at 5/10. Will continue to monitor
[2020-11-28] MEDS: Ibuprofen 600 MG Tablet PO ×3 (05:23→21:03)
[2020-11-28] MEDS: busPIRone 5 MG Tablet 10 MG PO ×3 (05:23→21:03)
[2020-11-28 07:30] VITALS: BP 119/67; PULSE 66; RESP 16; TEMP 36.6; O2SAT 98
[2020-11-28] MEDS: Calcium Carb/Vitamin D 1 TABLET Tablet PO ×2 (07:45→17:22)
[2020-11-28] MEDS: Aspirin E.C. 81 MG Tablet PO ×2 (07:45→17:22)
[2020-11-28] MEDS: Multivitamins,Ther W-Minerals Tablet 1 TABLET PO (07:45)
[2020-11-28 07:46] VITALS: BP 119/67; PULSE 66
[2020-11-28] MEDS: Clopidogrel Bisulfate 75 MG Tablet PO (07:46)
[2020-11-28] MEDS: Metoprolol(XL)Succ 100 MG Tablet PO (07:46)
[2020-11-28] MEDS: Amiodarone 200 MG Tablet PO ×2 (07:46→21:03)
[2020-11-28] MEDS: DULoxetine Hcl 60 MG Capsule PO (07:46)
[2020-11-28] MEDS: Menthol/Lanolin/Calamine/Znox 113 GM Tube 1 APPLIC TOPICAL ×2 (07:51→21:03)
[2020-11-28] MEDS: oxyCODONE 5 MG Tablet PO ×2 (14:16→21:02)
--- NOTE | 2020-11-28 15:58 | CASEMGMT ---
Addendum entered by Mally Baca 11/29/20 14:53: Dr. Zaragoza requested a behavioral health referral for the pt since [facility] does not have . Referral made. to follow up with patient. Original Note: Social Work A list of home health providers was provided to the patient. Patient states he does not have a preference in provider. This SW contacted the list of 25 home health providers who were unable to accept patient for their not being in the requested geographic area, unable to staff or out of network with patient's insurance. Pending Sale To [facility] can accept pt for PT/OT. Notified pt and pt agreeable. Mally Baca, ALFONSO LEYVAW
[2020-11-28 19:23] VITALS: BP 134/68; PULSE 65; RESP 16; TEMP 36.7; O2SAT 94
[2020-11-28] MEDS: MELATONIN 3 MG TABLET 6 MG PO (21:03)
[2020-11-28 21:58] VITALS: PULSE 65; RESP 16; O2SAT 94
[2020-11-29] MEDS: busPIRone 5 MG Tablet 10 MG PO ×2 (06:36→13:38)
[2020-11-29] MEDS: Aspirin E.C. 81 MG Tablet PO (08:23)
[2020-11-29 08:24] VITALS: PULSE 61
[2020-11-29] MEDS: Metoprolol(XL)Succ 100 MG Tablet PO (08:24)
[2020-11-29] MEDS: Clopidogrel Bisulfate 75 MG Tablet PO (08:24)
[2020-11-29] MEDS: Amiodarone 200 MG Tablet PO (08:24)
[2020-11-29] MEDS: DULoxetine Hcl 60 MG Capsule PO (08:25)
[2020-11-29] MEDS: Menthol/Lanolin/Calamine/Znox 113 GM Tube 1 APPLIC TOPICAL (08:26)
[2020-11-29 08:33] VITALS: BP 141/73; PULSE 61; RESP 16; TEMP 36.6; O2SAT 98
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
[2020-11-29] MEDS: oxyCODONE 5 MG Tablet PO (12:45)
[2020-11-29] MEDS: Ibuprofen 600 MG Tablet PO (13:38)
--- NOTE | 2020-11-29 14:37 | CHAPLAIN ---
Type of Pastoral Visit _x__ Initial Visit ___ Follow-up Visit ___ On-call Visit ___ General Patient Visit ___ Spiritual Assessment ___ Family Conference ___ Bereavement ___ Rapid Response ___ Code Blue ___ Other (describe below) Pastoral Care Referral From _x__ Patient ___ Family ___ Nurse ___ Physician ___ Landscape Designer ___ Career And Guidance Counselor ___ Other (describe below) Sacrament/Intervention _x__ Active listening ___ Anointing ___ Protestant ___ Bereavement ___ Communion _x__ Yissel exploration ___ _x__ Life review _x__ Prayer ___ Reconciliation ___ Sacrament of Sick _x__ Supportive presence ___ Wedding ___ Other (describe below) Pastoral Comments
--- NOTE | 2020-11-29 14:55 | NURSING ---
discharge instructions given at this time, pt denies questions or concerns. pt being transported home by [facility] transport van.
[2020-11-29 14:56] VITALS: BP 141/73; PULSE 61; RESP 16; TEMP 36.6; O2SAT 98
== END 2020-11-29 14:58 | disposition home health service (06) | DRG 862 ==
LOC: RU 13:51
PROVIDERS: Admitting Provider Internal Medicine; PCP Family Medicine; Visit Provider Internal Medicine
DX: S72.012D Unspecified intracapsular fracture of left femur, subsequent encounter for closed fracture with routine healing (principal); W19.XXXD Unspecified fall, subsequent encounter; J44.9 Chronic obstructive pulmonary disease, unspecified; E78.5 Hyperlipidemia, unspecified; I25.5 Ischemic cardiomyopathy; I25.10 Atherosclerotic heart disease of native coronary artery without angina pectoris; Z95.810 Presence of automatic (implantable) cardiac defibrillator; I10 Essential (primary) hypertension; F10.20 Alcohol dependence, uncomplicated; F17.210 Nicotine dependence, cigarettes, uncomplicated; I47.2 Ventricular tachycardia; S51.012D Laceration without foreign body of left elbow, subsequent encounter; Z91.19 Patient's noncompliance with other medical treatment and regimen
CPT/HCPCS: 36415; 80048; 83735; 84100; 85027; 97110; 97116; 97162; 97166; 97530; 97535; 97802; 99251; 99406; G0463

== ENCOUNTER 2021-03-17 09:04 | Inpatient (IN) | payer MEDICARE, MEDICAID, SELFPAY ==
[2019-02-17 13:19] VITALS: BMI 29.2
[2021-03-17] VITALS (8 sets, daily range): BP systolic 114–123; BP diastolic 64–82; PULSE 64–75; RESP 16–19; TEMP 35.8–36.8; O2SAT 97–100; BMI 24.1; BMI 24.2
--- NOTE | 2021-03-17 09:11 | RAD_ITS ---
STUDY: X-RAY - LEFT KNEE REASON FOR EXAM: Male, 66 years old. pain TECHNIQUE: 4 view(s) of the knee. COMPARISON: None. FINDINGS: Normal visualized distal femur. Normal visualized proximal tibia and fibula. Normal proximal tibiofibular articulation. Normal medial femorotibial compartment. Normal lateral femorotibial compartment. Normal patellofemoral articulation. The soft tissue structures are unremarkable. RAD/Knee 4 or More Views IMPRESSION: Normal x-ray examination of the knee. Electronically Signed: Nikhil Layne MD at 10:12 EDT Tel , Service support ,
--- NOTE | 2021-03-17 09:14 | EDS_ITS ---
HPI History of Present Illness Chief Complaint: Lower Extremity Injury Informant: patient Onset/Context/Timing Onset: Days Context: Gradual Onset Timing: Continuous Current Severity: Moderate Maximum Severity: Moderate Narrative Narrative: The patient is a 66-year-old male with medical history significant for coronary vascular disease, hyperlipidemia, COPD who presents to the emergency department with generalized weakness. The patient states that for the past few days, he has had difficulty with ambulation. He states he just feels like he cannot control his lower extremities. He states if he walks any distance, his legs get weak in his knees will go out. He states he cannot stand for prolonged period of time because he will feel lightheaded and his legs will get weak. He did have a fall about 2 days ago. He did not strike his head. He states someone helped him get back up. He was concerned because he did have hip fracture surgery earlier this year and seemed to be recovering very well. He denies any fevers or chills. He denies any cough or chest pain. He denies any urinary symptoms or change in bowel habits. Prior similar symptoms: No Recent Illness/Hospitalization: No PFSH PFSH Medical History Atherosclerotic heart disease of [place] coronary artery without angina pectoris Benign hypertension Cellulitis and abscess of upper extremity Declining functional status Dehydration Dyspnea History of alcoholism History of echocardiogram (04/03/17) History of stress test (02/16/10) Hyperlipidemia Ischemic cardiomyopathy Premature heartbeats Stage 1 mild COPD by GOLD classification Tobacco user Urinary tract infection Ventricular tachycardia Home Medications nitroglycerin 0.4 mg sublingual tablet 0.4 mg SUBLINGUAL Q5M PRN #25 tab 05/08/18 [Rx Last Taken Unknown] wfoqntqa-jla-UX-lycopen-lutein 1 ea PO QODAY 12/13/19 [History Last Taken 11/13/20] aspirin 81 mg tablet,delayed release 81 mg PO DAILY #90 tab 01/04/20 [Rx Last Taken 11/14/20 09:00] amiodarone 200 mg tablet 200 mg PO BID #180 tab 06/15/20 [Rx Last Taken 11/14/20 17:30] clopidogrel 75 mg tablet 75 mg PO DAILY 09/15/20 [History Last Taken 11/14/20 17:30] buspirone 10 mg tablet 10 mg PO TID 10/03/20 [History Last Taken 11/14/20 17:30] metoprolol succinate 100 mg PO DAILY 11/22/20 [History Last Taken Unknown] acetaminophen 1,000 mg PO Q8H PRN PRN tab 11/29/20 [Rx Last Taken Unknown] duloxetine 60 mg PO DAILY #30 cap 11/29/20 [Rx Last Taken Unknown] calcium carbonate-vitamin D3 1 tablet PO DAILY 03/17/21 [History Last Taken Unknown] Allergy/AdvReac Type Severity Reaction Status Date / Time Iodine and Iodide Containing Allergy Severe Rash Verified 11/15/20 03:28 Produc ezetimibe [From Zetia] AdvReac Severe Myalgias Verified 11/15/20 03:28 Ktnrwvi-Syv-Xft Reductase AdvReac Severe Elevated Verified 11/15/20 03:28 Inhibitor Liver Enzymes Family History Grandmother Myocardial infarction Grandfather Myocardial infarction Surgical History History of coronary artery stent placement (02/17/19) History of left heart catheterization (LHC) (01/21/19) Hx of knee surgery Presence of automatic (implantable) cardiac defibrillator (10/31/17) Social History Smoking Status: Current every day smoker how long ago did patient quit smokin11/2017 alcohol intake: current alcohol intake frequency: a few times a week Alcohol type: beer substance use type: does not use caffeine: No what type of physical activity do you participate in: bicycling frequency: 1-2 times per week duration: < 15 minutes/day seatbelt use: always do you feel safe at home: Yes ROS ROS ED Constitutional Constitutional ED: Denies chills or fever(s) Eyes Eyes: Denies blurry vision or change in vision ENT ENT ED: Denies ear pain or sore throat Cardiovascular Cardiovascular: Denies chest pain or palpitations Respiratory/Chest Respiratory/Chest: Denies cough, dyspnea or dyspnea on exertion Gastrointestinal Gastrointestinal: Reports nausea; Denies abdominal pain or vomiting Genitourinary Genitourinary ED: Denies dysuria or urinary frequency Musculoskeletal Musculoskeletal: Reports arthralgias and myalgias Integumentary Denies rash Neurologic Neurologic: Reports weakness; Denies headache(s) or paresthesias Psychiatric Psychiatric: Denies anxiety or depression Endocrine Endocrinology: Denies polydipsia or polyuria Allergic/Immunologic Allergic/Immunologic ED: Denies urticaria EXAM Physical Exam Const Vital Signs: 03/17/21 09:05 03/17/21 10:05 Temperature 97.5 F L Temperature Source Temporal Pulse Rate 70 64 Respiratory Rate 16 16 Blood Pressure 115/81 H 122/76 H Blood Pressure Mean 92 91 Pulse Ox 99 Oxygen Delivery Method Room Air Positive well nourished and well developed General Appearance ED: well developed HEENT Reports normocephalic, head/scalp atraumatic and moist mucous membranes Eyes PERRL and EOMs intact bilaterally Neck no lymphadenopathy and supple General: Negative for tenderness Chest Wall inspection of chest normal Resp normal respiratory effort and clear to auscultation bilaterally Cardio regular rate, regular rhythm and no murmurs GI normal to inspection, nondistended, normoactive bowel sounds Palpation: Negative for tender, guarding or rebound tenderness present Back/Spine no CVA tenderness Cervical Spine: Negative for cervical spine tenderness Thoracic Spine / Upper Back: Negative for thoracic spinal tenderness Extremity normal to inspection General Extremety ED: Negative for tenderness Neuro oriented x3 and CN's II-XII intact bilaterally Neuro Narrative: No focal deficits appreciated. Sensorium / Orientation: alert Psych mental status grossly normal Skin no rashes or lesions noted, no wounds and skin turgor normal MDM MDM MDM Narrative Medical decision making narrative: Patient presents with generalized weakness. He does have a history of alcohol abuse, but states he is not been drinking for the past week. He also has a history of hyponatremia and states this feels the same as when his sodium was low. I did obtain x-rays of the patient's knees. These were reviewed by both myself and the radiologist. There are some arthritic change, but no fracture or dislocation. Screening labs do demonstrate some volume contraction and a sodium of 120. I do feel that the patient's hyponatremia is likely causing his symptoms. My suspicion of this is secondary to his longstanding history of alcohol abuse. Patient was discussed with the hospitalist and will be admitted. Impression 1. Hyponatremia Lab Data Attestation: I reviewed the patient's lab results. Labs: Laboratory Results - last 24 hr 03/17/21 03/17/21 09:23 09:23 WBC 7.4 RBC 4.76 Hgb 17.4 H Hct 46.8 MCV 98.3 H MCH 36.6 H MCHC 37.2 H RDW Std Deviation 48.8 H RDW Coeff of Yoli 13.4 Plt Count 229 MPV 8.9 Immature Gran % (Auto) 0.800 Neut % (Auto) 68.8 Lymph % (Auto) 15.1 L [place] % (Auto) 10.9 H Eos % (Auto) 3.9 Baso % (Auto) 0.5 Absolute Neuts (auto) 5.1 Absolute Lymphs (auto) 1.12 Nucleated RBC % 0 Sodium 120 L Potassium 3.2 L Chloride 82 L Carbon Dioxide 30.0 Anion Gap 8 BUN 8 Creatinine 0.87 Estim Creat Clear Calc 98.42 Est GFR (MDRD) Af Amer 114 Est GFR (MDRD) Non-Af 94 BUN/Creatinine Ratio 9.2 L Glucose 110 H Calcium 9.3 Total Bilirubin 0.60 AST 159 H ALT 121 H Alkaline Phosphatase 137 H Total Protein 7.1 Albumin 3.5 Globulin 3.6 Albumin/Globulin Ratio 1.0 Radiography Diagnostic Testing: Radiology Impression Knee X-Ray 03/17/21 09:11 IMPRESSION: Normal x-ray examination of the knee. Electronically Signed: Nikhil Layne MD at 10:12 EDT Tel , Service support , Knee X-Ray 03/17/21 09:17 IMPRESSION: Degenerative arthrosis. Electronically Signed: Nikhil Layne MD at 10:14 EDT Tel , Service support , Discharge Plan Triage Chief Complaint: Lower Extremity Injury ED Provider: Phillip Hope Dx/Rx/DC Orders Prescriptions: No Action nitroglycerin 0.4 mg tablet, sublingual 0.4 mg SUBLINGUAL Q5M PRN (Reason: Angina) Qty: 25 RF: 3 lnitusmr-umg-YT-lycopen-lutein 1 EACH tablet 1 ea PO QODAY RF: 0 metoprolol succinate 100 MG tablet extended release 24 hr 100 mg PO DAILY RF: 0 acetaminophen 500 MG tablet 1,000 mg PO Q8H PRN PRN (Reason: Pain 1-10 Or Fever) RF: 0 duloxetine 60 MG capsule 60 mg PO DAILY Qty: 30 RF: 0 calcium carbonate-vitamin D3 1 TABLET tablet 1 tablet PO DAILY RF: 0 aspirin 81 mg tablet,delayed release (DR/EC) 81 mg PO DAILY Qty: 90 RF: 3 amiodarone 200 mg tablet 200 mg PO BID Qty: 180 RF: 3 clopidogrel 75 mg tablet 75 mg PO DAILY RF: 0 buspirone 10 mg tablet 10 mg PO TID RF: 0 Primary Care Provider: Shay Del Rosario III
--- NOTE | 2021-03-17 09:17 | RAD_ITS ---
STUDY: X-RAY - RIGHT KNEE REASON FOR EXAM: Male, 66 years old. PAIN TECHNIQUE: 4 view(s) of the knee. COMPARISON: None. FINDINGS: Normal visualized distal femur. Normal visualized proximal tibia and fibula. Normal proximal tibiofibular articulation. There is severe degenerative arthrosis of the medial femorotibial compartment with severe joint space narrowing. There is mild degenerative arthrosis of the lateral femorotibial compartment. There is mild degenerative arthrosis of the patellofemoral articulation. The soft tissue structures are unremarkable. RAD/Knee 4 or More Views IMPRESSION: Degenerative arthrosis. Electronically Signed: Nikhil Layne MD at 10:14 EDT Tel , Service support ,
[2021-03-17 09:31] LABS: Absolute Lymphocyte Count 1.12 X10^3/uL (0.83-4.51); Absolute Neutrophil Count 5.1 X10^3/uL (2.0-7.7); Basophil# 0.04 X10^3/uL; Basophil% 0.5 % (0-1); Eosinophil# 0.29 X10^3/uL; Eosinophils% 3.9 % (0-5); Hematocrit 46.8 % (40-54); Hemoglobin 17.4 g/dL (13.0-16.5); Lymphocyte # 1.12 X10^3/ul (0.83-4.51); Lymphocyte % 15.1 % (19-41); Mean Corp Hgb Conc 37.2 g/dL (32-36); Mean Corpuscular Hgb 36.6 pg (27.0-32.0); Mean Corpuscular Volume 98.3 fL (80-94); Mean Platelet Vol. 8.9 fl (6.2-12.0); Monocyte# 0.81 X10^3/uL; Monocyte% 10.9 % (0-10); NRBC Flagged by Analyzer 0 % (0-5); Neutrophil # 5.12 X10^3/uL (2.7-7.7); Neutrophil % 68.8 % (47-70); Platelet Count 229 K/mm3 (150-450); RBC Distribution Width CV 13.4 % (11.6-14.6); RBC Distribution Width SD 48.8 fl (35.1-43.9); Red Blood Count 4.76 M/mm3 (4.6-6.2); White Blood Count 7.4 K/mm3 (4.4-11.0)
[2021-03-17 09:54] LABS: AST(SGOT) 159 U/L (15-37); Alanine Aminotransfer ALT/SGPT 121 U/L (16-61); Albumin, Serum 3.5 g/dL (3.2-5.0); Alkaline Phosphatase 137 U/L (45-117); Anion Gap 8 (5-15); BUN 8 mg/dL (7-18); BUN/Creat Ratio 9.2 RATIO (10-20); Calcium,Total 9.3 mg/dL (8.5-10.1); Chloride 82 mmol/L (98-107); Creatinine, Serum 0.87 mg/dL (0.70-1.30); EST Glomerular Filtration Rate 94 mL/min (>60); Est Glom Filt Rate - Afr Amer 114 mL/min (>60); Estimated Creatinine Clearance 98.42 ml/min; Globulin 3.6 g/dL (2.2-4.2); Glucose 110 mg/dL (74-106); Potassium 3.2 mmol/L (3.5-5.1); Protein, Total 7.1 g/dL (6.4-8.2); Sodium Level 120 mmol/L (136-145)
--- NOTE | 2021-03-17 10:25 | HP.PCM.HOS_ITS ---
[facility] - General General Date of Admission: 03/17/21 Chief Complaint: Fall, generalized weakness, inability to walk HPI Narrative FRANCIS MORTON, is a 66 M who presents with inability to walk after a fall. Patient stated that he fell 3 days ago and has since not been able to move around because his knees hurt so much to move. Patient stated that he has had progressive weakness for about 1 week. He admits to feeling lightheaded. Patient admits to drinking alcohol and last drank alcohol 6 days ago. He denied any chest pain or palpitations. No recent illness. [facility] Medical History Atherosclerotic heart disease of [place] coronary artery without angina pectoris Benign hypertension Cellulitis and abscess of upper extremity Declining functional status Dehydration Dyspnea History of alcoholism History of echocardiogram (04/03/17) History of stress test (02/16/10) Hyperlipidemia Ischemic cardiomyopathy Premature heartbeats Stage 1 mild COPD by GOLD classification Tobacco user Urinary tract infection Ventricular tachycardia Home Medications nitroglycerin 0.4 mg sublingual tablet 0.4 mg SUBLINGUAL Q5M PRN #25 tab 05/08/18 [Rx Last Taken Unknown] ylscvqjw-umv-MR-lycopen-lutein 1 ea PO QODAY 12/13/19 [History Last Taken 11/13/20] aspirin 81 mg tablet,delayed release 81 mg PO DAILY #90 tab 01/04/20 [Rx Last Taken 11/14/20 09:00] amiodarone 200 mg tablet 200 mg PO BID #180 tab 06/15/20 [Rx Last Taken 11/14/20 17:30] clopidogrel 75 mg tablet 75 mg PO DAILY 09/15/20 [History Last Taken 11/14/20 17:30] buspirone 10 mg tablet 10 mg PO TID 10/03/20 [History Last Taken 11/14/20 17:30] metoprolol succinate 100 mg PO DAILY 11/22/20 [History Last Taken Unknown] acetaminophen 1,000 mg PO Q8H PRN PRN tab 11/29/20 [Rx Last Taken Unknown] duloxetine 60 mg PO DAILY #30 cap 11/29/20 [Rx Last Taken Unknown] calcium carbonate-vitamin D3 1 tablet PO DAILY 03/17/21 [History Last Taken Unknown] Allergy/AdvReac Type Severity Reaction Status Date / Time Iodine and Iodide Containing Allergy Severe Rash Verified 11/15/20 03:28 Produc ezetimibe [From Zetia] AdvReac Severe Myalgias Verified 11/15/20 03:28 Gmwtdcq-Phx-Vim Reductase AdvReac Severe Elevated Verified 11/15/20 03:28 Inhibitor Liver Enzymes Family History Grandmother Myocardial infarction Grandfather Myocardial infarction Surgical History History of coronary artery stent placement (02/17/19) History of left heart catheterization (LHC) (01/21/19) Hx of knee surgery Presence of automatic (implantable) cardiac defibrillator (10/31/17) Social History Smoking Status: Current every day smoker how long ago did patient quit smokin11/2017 alcohol intake: current alcohol intake frequency: a few times a week Alcohol type: beer substance use type: does not use caffeine: No what type of physical activity do you participate in: bicycling frequency: 1-2 times per week duration: < 15 minutes/day seatbelt use: always do you feel safe at home: Yes ROS ROS Narrative Constitutional: Reports: Malaise, Weakness, Fatigue. Denies: Anorexia, Chills, Fever, Night Sweats, Weight Change Eyes: Denies: Blurred vision, Cataracts, Conjunctivae Inflammation, Pain, Redness, Vision Change HEENT: Denies: Difficulty Hearing, Difficulty Swallowing, Head Aches, Hearing Changes, Sinus Congestion, Sinus Drainage Cardiovascular: Denies: Chest Pain, Orthopnea, Palpitations Respiratory: Denies: Cough, Shortness of breath at rest, Sputum production Gastrointestinal: Denies: Abdominal Pain, Nausea, Vomiting Genitourinary: Denies: Dysuria Musculoskeletal: Admits to bilateral knee pain Denies: Joint stiffness, Joint swelling Skin: Denies: Rash, Wounds Neurological: Denies: Numbness, Tingling, Focal weakness Vital Signs Vital Signs Vital Signs: 03/17/21 09:05 03/17/21 10:05 Temperature 97.5 F L Temperature Source Temporal Pulse Rate 70 64 Respiratory Rate 16 16 Blood Pressure 115/81 H 122/76 H Blood Pressure Mean 92 91 Pulse Ox 99 Oxygen Delivery Method Room Air Physical Exam Narrative Physical exam: General: Alert, Oriented x3, Cooperative, No apparent distress, Well developed HEENT: Atraumatic Oral: Moist Mucosa Neck: Supple Lungs: Clear to auscultation Cardiovascular: HS I+II, regular, no murmurs Abdomen: Bowel Sounds Present, Soft, Non Tender Extremities: No edema Skin: No rashes, No breakdown Neurological: Grossly intact Psych/Mental Status: Appropriate Lab / Micro Data Result Diagrams: 03/17/21 09:23 03/17/21 13:15 Labs: Laboratory Results - last 24 hr 03/17/21 03/17/21 09:23 09:23 WBC 7.4 RBC 4.76 Hgb 17.4 H Hct 46.8 MCV 98.3 H MCH 36.6 H MCHC 37.2 H RDW Std Deviation 48.8 H RDW Coeff of Yoli 13.4 Plt Count 229 MPV 8.9 Immature Gran % (Auto) 0.800 Neut % (Auto) 68.8 Lymph % (Auto) 15.1 L [place] % (Auto) 10.9 H Eos % (Auto) 3.9 Baso % (Auto) 0.5 Absolute Neuts (auto) 5.1 Absolute Lymphs (auto) 1.12 Nucleated RBC % 0 Sodium 120 L Potassium 3.2 L Chloride 82 L Carbon Dioxide 30.0 Anion Gap 8 BUN 8 Creatinine 0.87 Estim Creat Clear Calc 98.42 Est GFR (MDRD) Af Amer 114 Est GFR (MDRD) Non-Af 94 BUN/Creatinine Ratio 9.2 L Glucose 110 H Calcium 9.3 Total Bilirubin 0.60 AST 159 H ALT 121 H Alkaline Phosphatase 137 H Total Protein 7.1 Albumin 3.5 Globulin 3.6 Albumin/Globulin Ratio 1.0 Radiology Impression Knee X-Ray 03/17/21 09:11 IMPRESSION: Normal x-ray examination of the knee. Electronically Signed: Nikhil Layne MD at 10:12 EDT Tel , Service support , Knee X-Ray 03/17/21 09:17 IMPRESSION: Degenerative arthrosis. Electronically Signed: Nikhil Layne MD at 10:14 EDT Tel , Service support , Assessment & Plan Assessment/Plan (1) Hyponatremia: (2) Abnormal LFTs: (3) Tobacco user: (4) Fall: QUALIFIERS: Encounter type: initial encounter Qualified Code(s): W19.XXXA - Unspecified fall, initial encounter (5) Hypokalemia: (6) Hypomagnesemia: PLAN: 1. Acute hyponatremia likely related to chronic alcohol use Patient last had alcohol 6 days ago. We will continue gentle IV fluids, repeat BMP every 4h We will check TSH, serum osmolality, urine osmolality, urine sodium If hyponatremia persists, will consult nephrology 2. Debility/fall related to acute hyponatremia PT/OT to evaluate and treat 3. Hypokalemia, replaced, check magnesium level; if low, replace 4. Elevated liver enzymes likely secondary to chronic alcohol use, will trend 5. Chronic alcohol abuse, advised to quit, will monitor on [facility] withdrawal protocol with the start of phenobarbital as patient has his last drink more than 6 days ago 6. Nicotine dependence, advised to quit, patient declines replacement (7) Chronic alcohol abuse: Visit Charges Inpatient E&M: 63241 Init Hosp L3
--- NOTE | 2021-03-17 10:31 | NURSING ---
PCU NAUMAH HYPONATREMIA
[2021-03-17 12:15] LABS: Magnesium 1.7 mg/dL (1.6-2.6); Thyroid Stim Hormone (TSH) 2.69 uIU/mL (0.358-3.74)
--- NOTE | 2021-03-17 12:30 | CASEMGMT ---
RN DUANE Face to Face with patient for initial transition planning/care coordination assessment. RN CM introduced self and role at [facility]. Patient lying in bed, alert and oriented. Patient willing to participate in assessment and is able to answer all questions appropriately. Care providers, pharmacy, and demographics verified. Patient wishes to discharge home with HHC if he is able to go home, if not is willing to go to SNF, will monitor progress with therapy. Patient states he has no further needs or concerns at this time. CM to follow for discharge planning needs that may arise. PCP: Carin Specialists: none Preferred Pharm[facility]: [facility] Pres[facility] Benefit: yes Living Will/HPOA: yes brother Donnell Paulino LNOK: brother Living Arrangements: Patient lives alone in split level home with 5 steps and railing between levels. Patient states he was independent at home prior to hospitalization. Transportation: public transportation DME/HHC: Patient states he has shower chair, raised toielt and walker at home. Patient states he has previously been to [facility] and has had HHC. Patient provided with list of HHC and SNFs with quality measures. Disposition Plan: HHC vs SNF course of treatment and progress with therapy. Geno MANN, RN, CM
--- NOTE | 2021-03-17 12:47 | EKG12_ITS ---
Test Reason : Blood Pressure : / mmHG Vent. Rate : 067 BPM Atrial Rate : 067 BPM P-R Int : 288 ms QRS Dur : 132 ms QT Int : 508 ms P-R-T Axes : 074 076 081 degrees QTc Int : 536 ms Sinus rhythm with 1st degree A-V block Non-specific intra-ventricular conduction block Abnormal ECG Confirmed by GISSELLE JEFFERSON, VALERIE ([id number]), editor newspaper SUSAN BLACKMAN ([id number]) on 03/20/2021 9:41:47 AM Referred By: PRADEEP Confirmed By:VALERIE PITTS MD
[2021-03-17] MEDS: 0.9% Normal Saline 1,000 ML 100 ML IV (13:18)
[2021-03-17] MEDS: busPIRone 5 MG Tablet 10 MG PO ×2 (13:19→20:58)
[2021-03-17] MEDS: Ondansetron 4 MG/2 ML Vial IV (13:19)
[2021-03-17] MEDS: Potassium Chloride Oral Tablet 20 MEQ 60 MEQ PO (13:19)
[2021-03-17] MEDS: Heparin Injection (Vial) 5,000 UNIT/ML VIAL 5000 UNIT SC ×2 (13:20→20:59)
[2021-03-17 13:56] LABS: Anion Gap 8 (5-15); BUN 8 mg/dL (7-18); BUN/Creat Ratio 9.8 RATIO (10-20); Calcium,Total 8.5 mg/dL (8.5-10.1); Chloride 85 mmol/L (98-107); Creatinine, Serum 0.81 mg/dL (0.70-1.30); EST Glomerular Filtration Rate 101 mL/min (>60); Est Glom Filt Rate - Afr Amer 122 mL/min (>60); Estimated Creatinine Clearance 102.75 ml/min; Glucose 116 mg/dL (74-106); Potassium 3.3 mmol/L (3.5-5.1); Sodium Level 122 mmol/L (136-145)
[2021-03-17 16:13] LABS: Osmolality, Serum 251 mOsm/KG (280-301)
[2021-03-17 18:18] LABS: Anion Gap 6 (5-15); BUN 9 mg/dL (7-18); BUN/Creat Ratio 11.6 RATIO (10-20); Calcium,Total 8.7 mg/dL (8.5-10.1); Chloride 88 mmol/L (98-107); Creatinine, Serum 0.77 mg/dL (0.70-1.30); EST Glomerular Filtration Rate 107 mL/min (>60); Est Glom Filt Rate - Afr Amer 130 mL/min (>60); Estimated Creatinine Clearance 108.09 ml/min; Glucose 114 mg/dL (74-106); Potassium 3.7 mmol/L (3.5-5.1); Sodium Level 120 mmol/L (136-145)
[2021-03-17 20:26] LABS: Urine Sodium 18 mmol/L (Not Establ.)
[2021-03-17 20:33] LABS: Osmolality, Urine 319 mOsm/KG
[2021-03-17] MEDS: Menthol/Lanolin/Calamine/Znox 113 GM Tube 1 APPLIC TOPICAL (20:59)
[2021-03-17] MEDS: Nystatin Powder 15gm Bottle 1 APPLIC TOPICAL (20:59)
[2021-03-17] MEDS: Amiodarone 200 MG Tablet PO (20:59)
[2021-03-18] VITALS (11 sets, daily range): BP systolic 72–139; BP diastolic 44–81; PULSE 67–97; RESP 16–18; TEMP 36.3–36.7; O2SAT 96–98
--- NOTE | 2021-03-18 00:07 | PCM.PN.BLA ---
Progress Note Per nurse patient has been having diarrhea for about 3 months. Nurse requested for C. difficile test. C. difficile showed a positive antigen but negative toxins. We will put patient on contact precautions. Will not initiate treatment for C. difficile at this time.
[2021-03-18 00:10] LABS: Anion Gap 7 (5-15); BUN 7 mg/dL (7-18); BUN/Creat Ratio 9.6 RATIO (10-20); Calcium,Total 8.4 mg/dL (8.5-10.1); Chloride 91 mmol/L (98-107); Creatinine, Serum 0.73 mg/dL (0.70-1.30); EST Glomerular Filtration Rate 115 mL/min (>60); Est Glom Filt Rate - Afr Amer 140 mL/min (>60); Estimated Creatinine Clearance 114.01 ml/min; Glucose 94 mg/dL (74-106); Potassium 3.6 mmol/L (3.5-5.1); Sodium Level 123 mmol/L (136-145)
[2021-03-18] MEDS: MELATONIN 3 MG TABLET PO ×2 (00:20→21:30)
[2021-03-18] MEDS: 0.9% Normal Saline 1,000 ML 100 ML IV ×3 (00:21→19:00)
[2021-03-18] MEDS: 0.9% Saline Lock 10 ML Syringe IV (05:24)
[2021-03-18] MEDS: busPIRone 5 MG Tablet 10 MG PO ×3 (05:28→21:26)
[2021-03-18] MEDS: Heparin Injection (Vial) 5,000 UNIT/ML VIAL 5000 UNIT SC ×3 (05:28→21:26)
[2021-03-18 06:08] LABS: Absolute Lymphocyte Count 1.09 X10^3/uL (0.83-4.51); Absolute Neutrophil Count 3.6 X10^3/uL (2.0-7.7); Basophil# 0.03 X10^3/uL; Basophil% 0.5 % (0-1); Eosinophil# 0.27 X10^3/uL; Eosinophils% 4.7 % (0-5); Lymphocyte # 1.09 X10^3/ul (0.83-4.51); Lymphocyte % 19.2 % (19-41); Mean Corp Hgb Conc 35.7 g/dL (32-36); Mean Corpuscular Hgb 36.1 pg (27.0-32.0); Mean Corpuscular Volume 101.2 fL (80-94); Monocyte# 0.65 X10^3/uL; Monocyte% 11.4 % (0-10); NRBC Flagged by Analyzer 0 % (0-5); Neutrophil # 3.62 X10^3/uL (2.7-7.7); Neutrophil % 63.7 % (47-70); Platelet Count 175 K/mm3 (150-450); RBC Distribution Width CV 13.4 % (11.6-14.6); RBC Distribution Width SD 50.3 fl (35.1-43.9); Red Blood Count 4.15 M/mm3 (4.6-6.2); White Blood Count 5.7 K/mm3 (4.4-11.0)
[2021-03-18 06:36] LABS: ALB/GLOB Ratio 0.9 RATIO (0.9-2.4); AST(SGOT) 115 U/L (15-37); Alanine Aminotransfer ALT/SGPT 90 U/L (16-61); Albumin, Serum 2.8 g/dL (3.2-5.0); Alkaline Phosphatase 106 U/L (45-117); Anion Gap 7 (5-15); BUN 7 mg/dL (7-18); BUN/Creat Ratio 10.2 RATIO (10-20); Calcium,Total 8.1 mg/dL (8.5-10.1); Chloride 95 mmol/L (98-107); Creatinine, Serum 0.68 mg/dL (0.70-1.30); EST Glomerular Filtration Rate 123 mL/min (>60); Est Glom Filt Rate - Afr Amer 149 mL/min (>60); Glucose 99 mg/dL (74-106); Potassium 3.6 mmol/L (3.5-5.1); Protein, Total 5.8 g/dL (6.4-8.2); Sodium Level 125 mmol/L (136-145)
[2021-03-18 08:43] LABS: Magnesium 1.9 mg/dL (1.6-2.6)
[2021-03-18] MEDS: Metoprolol(XL)Succ 100 MG Tablet PO (09:35)
[2021-03-18] MEDS: Clopidogrel Bisulfate 75 MG Tablet PO (09:35)
[2021-03-18] MEDS: Calcium Carb/Vitamin D 1 TABLET Tablet PO (09:35)
[2021-03-18] MEDS: Amiodarone 200 MG Tablet PO ×2 (09:36→21:26)
[2021-03-18] MEDS: Aspirin E.C. 81 MG Tablet PO (09:37)
[2021-03-18] MEDS: DULoxetine Hcl 60 MG Capsule PO (09:37)
[2021-03-18] MEDS: Nystatin Powder 15gm Bottle 1 APPLIC TOPICAL ×2 (09:38→21:26)
[2021-03-18] MEDS: Menthol/Lanolin/Calamine/Znox 113 GM Tube 1 APPLIC TOPICAL ×2 (09:38→21:26)
[2021-03-18] MEDS: Folic Acid 1 MG Tablet PO (09:43)
[2021-03-18] MEDS: Thiamine Hydrochloride 100 MG Tablet PO (12:06)
--- NOTE | 2021-03-18 15:20 | PCM.PN.HOSP ---
Subjective Subjective Patient was seen and examined. He has had 2 episodes of loose stools. Stool for C. difficile antigen was positive but a PCR was negative. He denied any dizziness or palpitations Objective Data Objective Data Vital Signs: Vital Signs Temp Pulse Resp BP Pulse Ox 98.1 F 74 16 135/76 H 97 03/18/21 15:03 03/18/21 15:03 03/18/21 15:03 03/18/21 15:03 03/18/21 15:03 Oxygen Delivery Method Room Air Weight: 83.3 kg Body Mass Index (BMI) 24.2 Orthostatic Vital Signs Start: 03/18/21 02:36 Freq: 0600 Status: Active Protocol: Activity Type Activity Date Activity User E-Sign Co-Sign Detail Recorded Client Recorded Date Recorded By Document 03/18/21 05:30 TM [id number] 03/18/21 05:35 TM 03/18/21 05:30 Orthostatic Vitals Standing -Blood Pressure (90/60-120/80) 72/44 L -Extremity Use Left Arm -Pulse Rate (60-100) 97 Sitting -Blood Pressure (90/60-120/80) 99/62 -Extremity Use Left Arm -Pulse Rate (60-100) 83 Lying -Blood Pressure (90/60-120/80) 124/73 H -Extremity Use Left Arm -Pulse Rate (60-100) 76 Intake & Output: Intake and Output for Last 24 Hours 03/16/21 03/17/21 03/18/21 23:59 23:59 23:59 Intake Total 784 / 904 2530 / 2530 Balance 784 / 904 2530 / 2530 Lab / Micro Data Result Diagrams: 03/18/21 05:38 03/18/21 05:38 Labs: Laboratory Results - last 24 hr 03/17/21 03/17/21 03/17/21 15:12 17:32 19:40 WBC RBC Hgb Hct MCV MCH MCHC RDW Std Deviation RDW Coeff of Yoli Plt Count MPV Immature Gran % (Auto) Neut % (Auto) Lymph % (Auto) [place] % (Auto) Eos % (Auto) Baso % (Auto) Absolute Neuts (auto) Absolute Lymphs (auto) Nucleated RBC % Sodium 120 L Potassium 3.7 Chloride 88 L Carbon Dioxide 26.0 Anion Gap 6 BUN 9 Creatinine 0.77 Estim Creat Clear Calc 108.09 Est GFR (MDRD) Af Amer 130 Est GFR (MDRD) Non-Af 107 BUN/Creatinine Ratio 11.6 Glucose 114 H Serum Osmolality 251 L Calcium 8.7 Magnesium Total Bilirubin AST ALT Alkaline Phosphatase Total Protein Albumin Globulin Albumin/Globulin Ratio Urine Osmolality 319 Ur Random Sodium 03/17/21 03/17/21 03/18/21 19:40 23:30 05:38 WBC 5.7 RBC 4.15 L Hgb 15.0 Hct 42.0 MCV 101.2 H MCH 36.1 H MCHC 35.7 RDW Std Deviation 50.3 H RDW Coeff of [place]oli 13.4 Plt Count 175 MPV 9.0 Immature Gran % (Auto) 0.500 Neut % (Auto) 63.7 Lymph % (Auto) 19.2 [place] % (Auto) 11.4 H Eos % (Auto) 4.7 Baso % (Auto) 0.5 Absolute Neuts (auto) 3.6 Absolute Lymphs (auto) 1.09 Nucleated RBC % 0 Sodium 123 L Potassium 3.6 Chloride 91 L Carbon Dioxide 25.0 Anion Gap 7 BUN 7 Creatinine 0.73 Estim Creat Clear Calc 114.01 Est GFR (MDRD) Af Amer 140 Est GFR (MDRD) Non-Af 115 BUN/Creatinine Ratio 9.6 L Glucose 94 Serum Osmolality Calcium 8.4 L Magnesium Total Bilirubin AST ALT Alkaline Phosphatase Total Protein Albumin Globulin Albumin/Globulin Ratio Urine Osmolality Ur Random Sodium 18 03/18/21 03/18/21 05:38 05:38 WBC RBC Hgb Hct MCV MCH MCHC RDW Std Deviation RDW Coeff of Yoli Plt Count MPV Immature Gran % (Auto) Neut % (Auto) Lymph % (Auto) [place] % (Auto) Eos % (Auto) Baso % (Auto) Absolute Neuts (auto) Absolute Lymphs (auto) Nucleated RBC % Sodium 125 L Potassium 3.6 Chloride 95 L Carbon Dioxide 23.0 Anion Gap 7 BUN 7 Creatinine 0.68 L Estim Creat Clear Calc 122.40 Est GFR (MDRD) Af Amer 149 Est GFR (MDRD) Non-Af 123 BUN/Creatinine Ratio 10.2 Glucose 99 Serum Osmolality Calcium 8.1 L Magnesium 1.9 Total Bilirubin 0.50 AST 115 H ALT 90 H Alkaline Phosphatase 106 Total Protein 5.8 L Albumin 2.8 L Globulin 3.0 Albumin/Globulin Ratio 0.9 Urine Osmolality Ur Random Sodium Micro: Microbiology 03/17/21 20:00 Stool C. difficile GDH Antigen & Toxins - Final 03/17/21 20:00 Stool C. difficile DNA Amplification - Final Physical Exam Narrative Physical exam: General: Alert, Oriented x3, Cooperative, No apparent distress, Well developed HEENT: Atraumatic Oral: Moist Mucosa Neck: Supple Lungs: Clear to auscultation Cardiovascular: HS I+II, regular, no murmurs Abdomen: Bowel Sounds Present, Soft, Non Tender Extremities: No edema Skin: No rashes, No breakdown Neurological: Grossly intact Psych/Mental Status: Appropriate Assessment & Plan Assessment/Plan (1) Hyponatremia: (2) Abnormal LFTs: (3) Tobacco user: (4) Fall: QUALIFIERS: Encounter type: initial encounter Qualified Code(s): W19.XXXA - Unspecified fall, initial encounter (5) Hypokalemia: (6) Hypomagnesemia: PLAN: 1. Acute hypotonic hyponatremia likely related to chronic alcohol use,slightly improved Patient last had alcohol 6 days ago. TSH is 2.69, serum osmolality is 251, urine osmolality is 319, urine sodium is 18 Will continue on IV fluids 2. Debility/fall related to acute hyponatremia PT/OT to evaluate and treat 3. Hypomagnesemia, replaced, recheck in am 4. Elevated liver enzymes likely secondary to chronic alcohol use, improving Repeat blood work in am 5. Chronic alcohol abuse, advised to quit, will monitor on CIWA withdrawal protocol Will start phenobarbital if he starts to actively withdrawal 6. Nicotine dependence, advised to quit, patient declines replacement (7) Chronic alcohol abuse: Visit Charges Inpatient E&M: 88940 Subs Hosp L2
[2021-03-19] VITALS (10 sets, daily range): BP systolic 60–138; BP diastolic 37–75; PULSE 67–86; RESP 16–18; TEMP 36.1–36.8; O2SAT 94–97
[2021-03-19] MEDS: Psyllium 1 PACKET PO ×3 (02:42→21:12)
[2021-03-19] MEDS: 0.9% Normal Saline 1,000 ML 100 ML IV ×3 (05:00→23:43)
[2021-03-19] MEDS: Heparin Injection (Vial) 5,000 UNIT/ML VIAL 5000 UNIT SC ×3 (05:21→21:12)
[2021-03-19] MEDS: busPIRone 5 MG Tablet 10 MG PO ×3 (05:22→21:13)
[2021-03-19] MEDS: 0.9% Normal Saline 1,000 ML 999 ML IV (05:25)
[2021-03-19 06:30] LABS: Absolute Lymphocyte Count 0.93 X10^3/uL (0.83-4.51); Absolute Neutrophil Count 4.7 X10^3/uL (2.0-7.7); Basophil# 0.03 X10^3/uL; Basophil% 0.4 % (0-1); Eosinophil# 0.41 X10^3/uL; Eosinophils% 5.9 % (0-5); Hematocrit 40.8 % (40-54); Hemoglobin 14.6 g/dL (13.0-16.5); Lymphocyte # 0.93 X10^3/ul (0.83-4.51); Lymphocyte % 13.4 % (19-41); Mean Corp Hgb Conc 35.8 g/dL (32-36); Mean Corpuscular Hgb 36.2 pg (27.0-32.0); Mean Corpuscular Volume 101.2 fL (80-94); Mean Platelet Vol. 8.7 fl (6.2-12.0); Monocyte# 0.81 X10^3/uL; Monocyte% 11.7 % (0-10); NRBC Flagged by Analyzer 0 % (0-5); Neutrophil # 4.73 X10^3/uL (2.7-7.7); Neutrophil % 68.2 % (47-70); Platelet Count 168 K/mm3 (150-450); RBC Distribution Width CV 13.8 % (11.6-14.6); RBC Distribution Width SD 51.8 fl (35.1-43.9); Red Blood Count 4.03 M/mm3 (4.6-6.2); White Blood Count 6.9 K/mm3 (4.4-11.0)
[2021-03-19 06:55] LABS: ALB/GLOB Ratio 0.9 RATIO (0.9-2.4); AST(SGOT) 91 U/L (15-37); Alanine Aminotransfer ALT/SGPT 78 U/L (16-61); Albumin, Serum 2.5 g/dL (3.2-5.0); Alkaline Phosphatase 104 U/L (45-117); Anion Gap 6 (5-15); BUN 7 mg/dL (7-18); BUN/Creat Ratio 12.4 RATIO (10-20); Calcium,Total 7.7 mg/dL (8.5-10.1); Chloride 97 mmol/L (98-107); Creatinine, Serum 0.56 mg/dL (0.70-1.30); EST Glomerular Filtration Rate 155 mL/min (>60); Est Glom Filt Rate - Afr Amer 187 mL/min (>60); Estimated Creatinine Clearance 148.62 ml/min; Globulin 2.9 g/dL (2.2-4.2); Glucose 90 mg/dL (74-106); Potassium 3.1 mmol/L (3.5-5.1); Protein, Total 5.4 g/dL (6.4-8.2); Sodium Level 128 mmol/L (136-145)
[2021-03-19] MEDS: DULoxetine Hcl 60 MG Capsule PO (08:37)
[2021-03-19] MEDS: Calcium Carb/Vitamin D 1 TABLET Tablet PO (08:37)
[2021-03-19] MEDS: Aspirin E.C. 81 MG Tablet PO (08:37)
[2021-03-19] MEDS: Amiodarone 200 MG Tablet PO ×2 (08:37→21:13)
[2021-03-19] MEDS: Clopidogrel Bisulfate 75 MG Tablet PO (08:38)
[2021-03-19] MEDS: Menthol/Lanolin/Calamine/Znox 113 GM Tube 1 APPLIC TOPICAL ×2 (08:39→21:12)
[2021-03-19] MEDS: Nystatin Powder 15gm Bottle 1 APPLIC TOPICAL ×2 (08:39→21:12)
[2021-03-19] MEDS: Folic Acid 1 MG Tablet PO (08:44)
[2021-03-19] MEDS: Thiamine Hydrochloride 100 MG Tablet PO (08:44)
[2021-03-19] MEDS: Metoprolol(XL)Succ 100 MG Tablet PO (08:44)
--- NOTE | 2021-03-19 09:57 | CASEMGMT ---
SW met with patient, introduced self and role at [facility]. Patient said he would like to stay here for his therapy. He said he has been on the 4th floor before. SW told him SW can check to see if they would be able to take him. SW told him SW will let him know if there are any problems. SW did provide patient with a list of SNF providers including quality and resource use data and consistent with the patient?s preferred geographic region, medical needs, and insurance network. ROLANDO told patient that if Inpatient Rehab does not work out he would need to consider other options. ROLANDO called Amanda on referral line. As soon as patient has therapy they will review his chart for inpatient rehab. Sylvie Holm INFORMATION SECURITY ASSOCIATE MARLENE
--- NOTE | 2021-03-19 11:13 | PCM.PN.HOSP ---
Subjective Subjective Patient is a 66-year-old gentleman admitted with progressive generalized weakness and falls. He was found to be hyponatremic. Hospital stay complicated by diarrhea stool for C. difficile came back positive currently on appropriate therapy Objective Data Objective Data Vital Signs: Vital Signs Temp Pulse Resp BP Pulse Ox 97.0 F L 71 18 138/74 H 94 03/19/21 08:46 03/19/21 08:46 03/19/21 08:46 03/19/21 08:46 03/19/21 08:46 Oxygen Delivery Method Room Air Weight: 83.7 kg Body Mass Index (BMI) 24.2 Orthostatic Vital Signs Start: 03/18/21 02:36 Freq: 0600 Status: Active Protocol: Activity Type Activity Date Activity User E-Sign Co-Sign Detail Recorded Client Recorded Date Recorded By Document 03/19/21 05:10 TM [id number] 03/19/21 05:11 TM 03/19/21 05:10 Orthostatic Vitals Standing -Blood Pressure (90/60-120/80) 127/75 H -Extremity Use Left Arm -Pulse Rate (60-100) 69 Sitting -Blood Pressure (90/60-120/80) 94/60 -Extremity Use Left Arm -Pulse Rate (60-100) 85 Lying -Blood Pressure (90/60-120/80) 60/37 L -Extremity Use Left Arm -Pulse Rate (60-100) 86 Intake & Output: Intake and Output for Last 24 Hours 03/17/21 03/18/21 03/19/21 23:59 23:59 23:59 Intake Total 784 / 904 4273.33 / 4273.33 2161.67 / 2161.67 Balance 784 / 904 4273.33 / 4273.33 2161.67 / 2161.67 Lab / Micro Data Result Diagrams: 03/19/21 06:16 03/19/21 06:16 Labs: Laboratory Results - last 24 hr 03/19/21 03/19/21 06:16 06:16 WBC 6.9 RBC 4.03 L Hgb 14.6 Hct 40.8 MCV 101.2 H MCH 36.2 H MCHC 35.8 RDW Std Deviation 51.8 H RDW Coeff of Yoli 13.8 Plt Count 168 MPV 8.7 Immature Gran % (Auto) 0.400 Neut % (Auto) 68.2 Lymph % (Auto) 13.4 L [place] % (Auto) 11.7 H Eos % (Auto) 5.9 H Baso % (Auto) 0.4 Absolute Neuts (auto) 4.7 Absolute Lymphs (auto) 0.93 Nucleated RBC % 0 Sodium 128 L Potassium 3.1 L Chloride 97 L Carbon Dioxide 25.0 Anion Gap 6 BUN 7 Creatinine 0.56 L Estim Creat Clear Calc 148.62 Est GFR (MDRD) Af Amer 187 Est GFR (MDRD) Non-Af 155 BUN/Creatinine Ratio 12.4 Glucose 90 Calcium 7.7 L Total Bilirubin 0.40 AST 91 H ALT 78 H Alkaline Phosphatase 104 Total Protein 5.4 L Albumin 2.5 L Globulin 2.9 Albumin/Globulin Ratio 0.9 Micro: Microbiology 03/17/21 20:00 Stool C. difficile GDH Antigen & Toxins - Final 03/17/21 20:00 Stool C. difficile DNA Amplification - Final Physical Exam Narrative GENERAL: cooperative HEENT: Atraumatic; EYES; Anicteric, Normal Conjunctiva NECK; supple, normal thyroid, RESPIRATORY: Diminished to auscultation CARDIOVASCULAR: Regular S1 S2, GI: soft, normoactive bowel sounds, : No Renal angle tenderness; EXTREMITIES: No edema, no clubbing, MUSCULOSKELETAL: no muscle waisting NEURO: Awake; no lateralizing signs. SKIN: No Rash PSYCH; Flat affect Assessment & Plan Assessment/Plan (1) Hyponatremia: (2) Physical debility: (3) C. difficile colitis: PLAN: Patient is a 66-year-old gentleman admitted with progressive generalized weakness and falls. He was found to be hyponatremic. Hospital stay complicated by diarrhea stool for C. difficile came back positive currently on appropriate therapy 1. Physical deconditioning with recurrent falls -Patient has recent fall with LEFT hemiarthroplasty. Presented with progressive generalized weakness and repeated falls. Admitted to monitored bed requested for PT OT eval and web content & social media manager to assist with discharge planning 2. Hyponatremia ?Secondary to beer put to arian patient admits to chronic alcohol use. Admitted to a monitored bed where he is currently being evaluated with serial BMPs and fluids sodium levels trending up 3. Hypomagnesemia -Corrected for protocol 4. Acute C. difficile colitis ?Patient is on p.o. vancomycin 5. Chronic alcohol abuse ?Patient on phenobarb taper. Counseled on cessation 6. Elevated liver enzymes ?Secondary to chronic alcohol use monitoring LFTs 7. Tobacco dependence - Counseled on cessation, offered nicotine patch for tobacco cravings 8. Hypertension - Blood pressure controlled, home medications continued with dose adjustment as needed 9. History of p ventricular tachycardia ?Patient has undergone previous AICD placement currently on amiodarone discontinued 10. History of depression with anxiety -Patient is on buspirone as well as duloxetine did continue 11. DVT prophylaxis ?SC heparin Visit Charges Inpatient E&M: 09868 Subs Hosp L2
[2021-03-19 11:55] LABS: Urine Sodium 115 mmol/L (Not Establ.)
[2021-03-19 11:59] LABS: Osmolality, Urine 323 mOsm/KG
--- NOTE | 2021-03-19 13:12 | CON.PCM.RE_ITS ---
Assessment & Plan Assessment/Plan (1) Hyponatremia: PLAN: Sodium is 128 continue normal saline as the patient still has diarrhea. Rate of correction is appropriate. Replace potassium. (2) C. difficile colitis: PLAN: On p.o. vancomycin per primary (3) Benign hypertension: PLAN: Controlled continue current medications HPI Consult Data Date of Consult: 03/19/21 HPI Narrative HPI Narrative: FRANCIS MORTON, is a 66 M who presented with inability to walk after he fell. The patient had a fall 3 days prior to admission with subsequent bilateral knee pain. He also had progressive weakness for about a week. He also was lightheaded but denies syncope. His last drink was 6 days prior to admission. He denies chest pain palpitations fever chills. His sodium was 120 on admission he was started on normal saline and today the sodium is 128. Renal was consulted for hyponatremia. He also had diarrhea for about a week prior to admission 6-8 bowel movements a day watery nonbloody. He continues to have diarrhea in the hospital. He denies abdominal pain nausea vomiting. Review of systems is otherwise negative unless noted in HPI. He denies chest pain dysuria hematuria shortness of breath cough fever chills. [facility] Medical History Atherosclerotic heart disease of [place] coronary artery without angina pectoris Benign hypertension Cellulitis and abscess of upper extremity Declining functional status Dehydration Dyspnea History of alcoholism History of echocardiogram (04/03/17) History of stress test (02/16/10) Hyperlipidemia Ischemic cardiomyopathy Premature heartbeats Stage 1 mild COPD by GOLD classification Tobacco user Urinary tract infection Ventricular tachycardia Home Medications nitroglycerin 0.4 mg sublingual tablet 0.4 mg SUBLINGUAL Q5M PRN #25 tab 05/08/18 [Rx Last Taken Unknown] msjfirwy-nti-YE-lycopen-lutein 1 ea PO QODAY 12/13/19 [History Last Taken 11/13/20] aspirin 81 mg tablet,delayed release 81 mg PO DAILY #90 tab 01/04/20 [Rx Last Taken 11/14/20 09:00] amiodarone 200 mg tablet 200 mg PO BID #180 tab 06/15/20 [Rx Last Taken 11/14/20 17:30] clopidogrel 75 mg tablet 75 mg PO DAILY 09/15/20 [History Last Taken 11/14/20 17:30] buspirone 10 mg tablet 10 mg PO TID 10/03/20 [History Last Taken 11/14/20 17:30] metoprolol succinate 100 mg PO DAILY 11/22/20 [History Last Taken Unknown] acetaminophen 1,000 mg PO Q8H PRN PRN tab 11/29/20 [Rx Last Taken Unknown] duloxetine 60 mg PO DAILY #30 cap 11/29/20 [Rx Last Taken Unknown] calcium carbonate-vitamin D3 1 tablet PO DAILY 03/17/21 [History Last Taken Unknown] Allergy/AdvReac Type Severity Reaction Status Date / Time Iodine and Iodide Containing Allergy Severe Rash Verified 11/15/20 03:28 Produc ezetimibe [From Zetia] AdvReac Severe Myalgias Verified 11/15/20 03:28 Vgpsism-Vbb-Lgf Reductase AdvReac Severe Elevated Verified 11/15/20 03:28 Inhibitor Liver Enzymes Family History Grandmother Myocardial infarction Grandfather Myocardial infarction Surgical History History of coronary artery stent placement (02/17/19) History of left heart catheterization (LHC) (01/21/19) Hx of knee surgery Presence of automatic (implantable) cardiac defibrillator (10/31/17) Social History Smoking Status: Current every day smoker how long ago did patient quit smokin11/2017 alcohol intake: current alcohol intake frequency: a few times a week Alcohol type: beer substance use type: does not use caffeine: No what type of physical activity do you participate in: bicycling frequency: 1-2 times per week duration: < 15 minutes/day seatbelt use: always do you feel safe at home: Yes Lab / Micro Data Result Diagrams: 03/19/21 06:16 03/19/21 06:16 Labs: Laboratory Results - last 24 hr 03/19/21 03/19/21 03/19/21 06:16 06:16 11:40 WBC 6.9 RBC 4.03 L Hgb 14.6 Hct 40.8 MCV 101.2 H MCH 36.2 H MCHC 35.8 RDW Std Deviation 51.8 H RDW Coeff of Yoli 13.8 Plt Count 168 MPV 8.7 Immature Gran % (Auto) 0.400 Neut % (Auto) 68.2 Lymph % (Auto) 13.4 L [place] % (Auto) 11.7 H Eos % (Auto) 5.9 H Baso % (Auto) 0.4 Absolute Neuts (auto) 4.7 Absolute Lymphs (auto) 0.93 Nucleated RBC % 0 Sodium 128 L Potassium 3.1 L Chloride 97 L Carbon Dioxide 25.0 Anion Gap 6 BUN 7 Creatinine 0.56 L Estim Creat Clear Calc 148.62 Est GFR (MDRD) Af Amer 187 Est GFR (MDRD) Non-Af 155 BUN/Creatinine Ratio 12.4 Glucose 90 Calcium 7.7 L Total Bilirubin 0.40 AST 91 H ALT 78 H Alkaline Phosphatase 104 Total Protein 5.4 L Albumin 2.5 L Globulin 2.9 Albumin/Globulin Ratio 0.9 Urine Osmolality Ur Random Sodium 115 05// 11:40 WBC RBC Hgb Hct MCV MCH MCHC RDW Std Deviation RDW Coeff of Yoli Plt Count MPV Immature Gran % (Auto) Neut % (Auto) Lymph % (Auto) [place] % (Auto) Eos % (Auto) Baso % (Auto) Absolute Neuts (auto) Absolute Lymphs (auto) Nucleated RBC % Sodium Potassium Chloride Carbon Dioxide Anion Gap BUN Creatinine Estim Creat Clear Calc Est GFR (MDRD) Af Amer Est GFR (MDRD) Non-Af BUN/Creatinine Ratio Glucose Calcium Total Bilirubin AST ALT Alkaline Phosphatase Total Protein Albumin Globulin Albumin/Globulin Ratio Urine Osmolality 323 Ur Random Sodium
[2021-03-19] MEDS: Potassium Chloride Oral Tablet 20 MEQ 40 MEQ PO (14:24)
--- NOTE | 2021-03-19 15:29 | CASEMGMT ---
Pt screened with [facility] Palliative Care Screening Tool due to Strata 3, pt did not meet criteria.
--- NOTE | 2021-03-19 15:39 | NURSING ---
This RN called and gave report to MS FRANSISCA Hall.
--- NOTE | 2021-03-19 15:52 | CASEMGMT ---
ROLANDO spoke with Amanda and Inpatient Rehab can accept patient when he is ready. Patient will be moving to the 3rd floor so SW will pass along this information to the MS3 SW. Plan: d/c to Inpatient Rehab when ready Sylvie ROSARIO
[2021-03-19] MEDS: MELATONIN 3 MG TABLET PO (21:13)
[2021-03-20] VITALS (7 sets, daily range): BP systolic 96–130; BP diastolic 60–74; PULSE 63–83; RESP 16–17; TEMP 36.3–36.9; O2SAT 95–97
[2021-03-20] MEDS: Heparin Injection (Vial) 5,000 UNIT/ML VIAL 5000 UNIT SC ×2 (05:56→22:06)
[2021-03-20] MEDS: busPIRone 5 MG Tablet 10 MG PO ×3 (05:58→22:08)
[2021-03-20 06:42] LABS: Absolute Neutrophil Count 6.2 X10^3/uL (2.0-7.7); Basophil# 0.06 X10^3/uL; Basophil% 0.6 % (0-1); Eosinophil# 0.71 X10^3/uL; Eosinophils% 7.4 % (0-5); Hematocrit 41.8 % (40-54); Hemoglobin 14.8 g/dL (13.0-16.5); Lymphocyte % 16.7 % (19-41); Mean Corp Hgb Conc 35.4 g/dL (32-36); Mean Corpuscular Hgb 36.5 pg (27.0-32.0); Mean Platelet Vol. 8.9 fl (6.2-12.0); Monocyte# 1.02 X10^3/uL; Monocyte% 10.6 % (0-10); NRBC Flagged by Analyzer 0 % (0-5); Neutrophil # 6.16 X10^3/uL (2.7-7.7); Neutrophil % 64.2 % (47-70); Platelet Count 172 K/mm3 (150-450); RBC Distribution Width CV 13.8 % (11.6-14.6); RBC Distribution Width SD 52.7 fl (35.1-43.9); Red Blood Count 4.06 M/mm3 (4.6-6.2); White Blood Count 9.6 K/mm3 (4.4-11.0)
[2021-03-20] MEDS: 0.9% Normal Saline 1,000 ML 999 ML IV (06:47)
[2021-03-20 07:08] LABS: Anion Gap 9 (5-15); BUN 5 mg/dL (7-18); BUN/Creat Ratio 11.3 RATIO (10-20); Calcium,Total 8.1 mg/dL (8.5-10.1); Chloride 96 mmol/L (98-107); Creatinine, Serum 0.44 mg/dL (0.70-1.30); EST Glomerular Filtration Rate 205 mL/min (>60); Est Glom Filt Rate - Afr Amer 248 mL/min (>60); Estimated Creatinine Clearance 189.16 ml/min; Glucose 85 mg/dL (74-106); Magnesium 1.5 mg/dL (1.6-2.6); Potassium 3.5 mmol/L (3.5-5.1); Sodium Level 129 mmol/L (136-145)
--- NOTE | 2021-03-20 07:23 | PN.HOSP_ITS ---
Subjective Subjective Patient was [facility]. Still continues to experience loose bowel movement. Diagnostic data significant for sodium level of 129 magnesium of 1.5 Objective Data Objective Data Vital Signs: Vital Signs Temp Pulse Resp BP Pulse Ox 98.5 F 68 17 124/72 H 96 03/20/21 03:52 03/20/21 06:18 03/20/21 03:52 03/20/21 06:18 03/20/21 03:52 Oxygen Delivery Method Room Air Weight: 86.137 kg Body Mass Index (BMI) 24.2 Orthostatic Vital Signs Start: 03/18/21 02:36 Freq: 0600 Status: Active Protocol: Activity Type Activity Date Activity User E-Sign Co-Sign Detail Recorded Client Recorded Date Recorded By Document 03/20/21 06:18 EF [id number] 03/20/21 06:19 EF 03/20/21 06:18 Orthostatic Vitals Standing -Blood Pressure (90/60-120/80 mm Hg) 96/60 -Extremity Use Left Arm -Pulse Rate (60-100 beats/min) 83 Sitting -Blood Pressure (90/60-120/80 mm Hg) 113/64 -Extremity Use Left Arm -Pulse Rate (60-100 beats/min) 78 Lying -Blood Pressure (90/60-120/80 mm Hg) 124/72 H -Extremity Use Left Arm -Pulse Rate (60-100 beats/min) 68 Intake & Output: Intake and Output for Last 24 Hours 03/18/21 03/19/21 03/20/21 23:59 23:59 23:59 Intake Total 4273.33 / 4273.33 4740.00 / 5400.00 1766.67 / 1766.67 Output Total 400 / 700 300 / 300 Balance 4273.33 / 4273.33 4340.00 / 4700.00 1466.67 / 1466.67 Lab / Micro Data Result Diagrams: 03/20/21 06:30 03/20/21 06:30 Micro: Microbiology 03/18/21 21:50 Stool Enteric Bacteriology - Final 03/17/21 20:00 Stool C. difficile GDH Antigen & Toxins - Final 03/17/21 20:00 Stool C. difficile DNA Amplification - Final Physical Exam Narrative GENERAL: cooperative HEENT: Atraumatic; EYES; Anicteric, Normal Conjunctiva NECK; supple, normal thyroid, RESPIRATORY: Diminished to auscultation CARDIOVASCULAR: Regular S1 S2, GI: soft, normoactive bowel sounds, : No Renal angle tenderness; EXTREMITIES: No edema, no clubbing, MUSCULOSKELETAL: no muscle waisting NEURO: Awake; no lateralizing signs. SKIN: No Rash PSYCH; Flat affect Assessment & Plan Assessment/Plan (1) Hyponatremia: (2) Physical debility: (3) C. difficile colitis: PLAN: Patient is a 66-year-old gentleman admitted with progressive generalized weakness and falls. He was found to be hyponatremic. Hospital stay complicated by diarrhea stool for C. difficile came back positive currently on appropriate therapy 1. Physical deconditioning with recurrent falls -Patient has recent fall with LEFT hemiarthroplasty. Presented with progressive generalized weakness and repeated falls. Admitted to monitored bed requested for PT OT eval and social work therapist to assist with discharge planning 03/20/2021; plan for patient to be discharged to rehab once diarrhea resolves 2. Hyponatremia ?Secondary to beer put to arian patient admits to chronic alcohol use. Admitted to a monitored bed where he is currently being evaluated with serial BMPs and fluids sodium levels trending up 03/20/2021; sodium levels up to 129 3. Hypomagnesemia -Corrected for protocol -03/20/2021 magnesium level 1.5 additional magnesium given 4. Acute C. difficile colitis ?Patient is on p.o. vancomycin ?03/20/2021; patient continues to experience loose bowel movement 5. Chronic alcohol abuse ?Patient on phenobarb taper. Counseled on cessation 6. Elevated liver enzymes ?Secondary to chronic alcohol use monitoring LFTs 7. Tobacco dependence - Counseled on cessation, offered nicotine patch for tobacco cravings 8. Hypertension - Blood pressure controlled, home medications continued with dose adjustment as needed 9. History of p ventricular tachycardia ?Patient has undergone previous AICD placement currently on amiodarone discontinued 10. History of depression with anxiety -Patient is on buspirone as well as duloxetine did continue 11. DVT prophylaxis ?SC heparin Visit Charges Inpatient E&M: 58509 Subs Hosp L2
[2021-03-20] MEDS: Metoprolol(XL)Succ 100 MG Tablet PO (08:56)
[2021-03-20] MEDS: DULoxetine Hcl 60 MG Capsule PO (08:56)
[2021-03-20] MEDS: Calcium Carb/Vitamin D 1 TABLET Tablet PO (08:56)
[2021-03-20] MEDS: Clopidogrel Bisulfate 75 MG Tablet PO (08:56)
[2021-03-20] MEDS: Amiodarone 200 MG Tablet PO ×2 (08:57→22:08)
[2021-03-20] MEDS: Magnesium Chloride 64 MG Delay Rel.Tablet 128 MG PO ×2 (08:57→22:08)
[2021-03-20] MEDS: Aspirin E.C. 81 MG Tablet PO (08:57)
[2021-03-20] MEDS: Folic Acid 1 MG Tablet PO (08:57)
[2021-03-20] MEDS: Nystatin Powder 15gm Bottle 1 APPLIC TOPICAL ×2 (08:57→22:09)
[2021-03-20] MEDS: Thiamine Hydrochloride 100 MG Tablet PO (08:57)
[2021-03-20] MEDS: Menthol/Lanolin/Calamine/Znox 113 GM Tube 1 APPLIC TOPICAL ×2 (09:00→22:09)
[2021-03-20] MEDS: 0.9% Normal Saline 1,000 ML 100 ML IV ×2 (11:00→22:10)
--- NOTE | 2021-03-20 11:25 | CASEMGMT ---
Social Work Note SW updated pt on acceptance to [facility] when medically cleared. Pt asked for papers that he received the other day for HHC and aide services. SW provided pt with HHC, Private Duty Aides and SNF list. Plan: [facility] when medically cleared Geno Dominguez MSW, CUSTOMER SERVICE ADVISOR
[2021-03-20] MEDS: Ondansetron 4 MG/2 ML Vial IV (13:55)
--- NOTE | 2021-03-20 15:42 | PN_ITS ---
Subjective Subjective Still diarrhea although a little better no abdominal pain no other complaints Objective Data Objective Data Vital Signs: Vital Signs Temp Pulse Resp BP Pulse Ox 97.4 F L 66 16 128/73 H 96 03/20/21 14:23 03/20/21 14:23 03/20/21 14:23 03/20/21 14:23 03/20/21 14:23 Oxygen Delivery Method Room Air Weight: 86.137 kg Body Mass Index (BMI) 24.2 Orthostatic Vital Signs Start: 03/18/21 02:36 Freq: 0600 Status: Active Protocol: Activity Type Activity Date Activity User E-Sign Co-Sign Detail Recorded Client Recorded Date Recorded By Document 03/20/21 06:18 EF [id number] 03/20/21 06:19 EF 03/20/21 06:18 Orthostatic Vitals Standing -Blood Pressure (90/60-120/80) 96/60 -Extremity Use Left Arm -Pulse Rate (60-100) 83 Sitting -Blood Pressure (90/60-120/80) 113/64 -Extremity Use Left Arm -Pulse Rate (60-100) 78 Lying -Blood Pressure (90/60-120/80) 124/72 H -Extremity Use Left Arm -Pulse Rate (60-100) 68 Intake & Output: Intake and Output for Last 24 Hours 03/18/21 03/19/21 03/20/21 23:59 23:59 23:59 Intake Total 4273.33 / 4273.33 4740.00 / 5400.00 3510.00 / 3510.00 Output Total 400 / 700 300 / 300 Balance 4273.33 / 4273.33 4340.00 / 4700.00 3210.00 / 3210.00 Lab / Micro Data Result Diagrams: 03/20/21 06:30 03/20/21 06:30 Labs: Laboratory Results - last 24 hr 03/20/21 03/20/21 06:30 06:30 WBC 9.6 RBC 4.06 L Hgb 14.8 Hct 41.8 MCV 103.0 H MCH 36.5 H MCHC 35.4 RDW Std Deviation 52.7 H RDW Coeff of Yoli 13.8 Plt Count 172 MPV 8.9 Immature Gran % (Auto) 0.500 Neut % (Auto) 64.2 Lymph % (Auto) 16.7 L [place] % (Auto) 10.6 H Eos % (Auto) 7.4 H Baso % (Auto) 0.6 Absolute Neuts (auto) 6.2 Absolute Lymphs (auto) 1.60 Nucleated RBC % 0 Sodium 129 L Potassium 3.5 Chloride 96 L Carbon Dioxide 24.0 Anion Gap 9 BUN 5 L Creatinine 0.44 L Estim Creat Clear Calc 189.16 Est GFR (MDRD) Af Amer 248 Est GFR (MDRD) Non-Af 205 BUN/Creatinine Ratio 11.3 Glucose 85 Calcium 8.1 L Magnesium 1.5 L Micro: Microbiology 03/18/21 21:50 Stool Enteric Bacteriology - Final 03/17/21 20:00 Stool C. difficile GDH Antigen & Toxins - Final 03/17/21 20:00 Stool C. difficile DNA Amplification - Final Physical Exam Const alert and no apparent distress General Appearance: comfortable HEENT normocephalic HEENT Narrative: atraumatic Neck General: normal visual inspection and trachea midline Resp normal respiratory effort and clear to auscultation bilaterally Cardio regular rate, regular rhythm, S1 normal heart sound and S2 normal heart sound GI soft to palpation and non-tender Extremity no clubbing, cyanosis or edema Neuro Sensorium / Orientation: awake and alert Assessment & Plan Assessment/Plan (1) Hyponatremia: PLAN: Sodium is 129 continue normal saline as the patient still has diar alverto. Rate of correction is appropriate. Replace potassium prn. (2) C. difficile colitis: PLAN: On p.o. vancomycin per primary (3) Benign hypertension: PLAN: Controlled continue current medications
[2021-03-20] MEDS: Loperamide 2 MG Capsule PO (20:12)
[2021-03-20] MEDS: MELATONIN 3 MG TABLET PO (22:08)
[2021-03-20] MEDS: Psyllium 1 PACKET PO (22:09)
[2021-03-21] VITALS (7 sets, daily range): BP systolic 80–128; BP diastolic 42–72; PULSE 61–75; RESP 15–16; TEMP 36.1–36.9; O2SAT 94–96
[2021-03-21] MEDS: busPIRone 5 MG Tablet 10 MG PO ×3 (06:00→20:55)
[2021-03-21] MEDS: Heparin Injection (Vial) 5,000 UNIT/ML VIAL 5000 UNIT SC ×3 (06:00→20:53)
[2021-03-21] MEDS: 0.9% Normal Saline 1,000 ML 100 ML IV ×2 (06:24→15:58)
[2021-03-21 06:55] LABS: Absolute Lymphocyte Count 1.38 X10^3/uL (0.83-4.51); Absolute Neutrophil Count 4.7 X10^3/uL (2.0-7.7); Basophil# 0.05 X10^3/uL; Basophil% 0.6 % (0-1); Eosinophil# 0.68 X10^3/uL; Eosinophils% 8.8 % (0-5); Hematocrit 40.3 % (40-54); Hemoglobin 14.3 g/dL (13.0-16.5); Lymphocyte # 1.38 X10^3/ul (0.83-4.51); Lymphocyte % 17.8 % (19-41); Mean Corp Hgb Conc 35.5 g/dL (32-36); Mean Corpuscular Volume 101.5 fL (80-94); Mean Platelet Vol. 8.8 fl (6.2-12.0); Monocyte# 0.88 X10^3/uL; Monocyte% 11.4 % (0-10); NRBC Flagged by Analyzer 0 % (0-5); Neutrophil # 4.73 X10^3/uL (2.7-7.7); Platelet Count 191 K/mm3 (150-450); RBC Distribution Width CV 13.6 % (11.6-14.6); RBC Distribution Width SD 51.3 fl (35.1-43.9); Red Blood Count 3.97 M/mm3 (4.6-6.2); White Blood Count 7.8 K/mm3 (4.4-11.0)
[2021-03-21 07:14] LABS: Anion Gap 7 (5-15); BUN 6 mg/dL (7-18); BUN/Creat Ratio 10.9 RATIO (10-20); Calcium,Total 8.2 mg/dL (8.5-10.1); Chloride 98 mmol/L (98-107); Creatinine, Serum 0.55 mg/dL (0.70-1.30); EST Glomerular Filtration Rate 159 mL/min (>60); Est Glom Filt Rate - Afr Amer 193 mL/min (>60); Estimated Creatinine Clearance 151.33 ml/min; Glucose 91 mg/dL (74-106); Potassium 3.4 mmol/L (3.5-5.1); Sodium Level 130 mmol/L (136-145)
--- NOTE | 2021-03-21 07:58 | PCM.PN.HOSP ---
Subjective Subjective Patient seen, states his diarrhea appears to be subsiding however patient still remains orthostatic. Adjusted patient antihypertensive regimen Objective Data Objective Data Vital Signs: Vital Signs Temp Pulse Resp BP Pulse Ox 97.8 F 61 16 124/70 H 95 03/21/21 02:25 03/21/21 06:00 03/21/21 02:25 03/21/21 06:00 03/21/21 02:25 Oxygen Delivery Method Room Air Weight: 86.4 kg Body Mass Index (BMI) 24.2 Orthostatic Vital Signs Start: 03/18/21 02:36 Freq: 0600 Status: Active Protocol: Activity Type Activity Date Activity User E-Sign Co-Sign Detail Recorded Client Recorded Date Recorded By Document 03/21/21 06:00 [facility] [id number] 03/21/21 06:15 [facility] 03/21/21 06:00 Orthostatic Vitals Standing -Blood Pressure (90/60-120/80) 80/42 L -Extremity Use Left Arm -Pulse Rate (60-100) 75 Sitting -Blood Pressure (90/60-120/80) 101/67 -Extremity Use Left Arm -Pulse Rate (60-100) 67 Lying -Blood Pressure (90/60-120/80) 124/70 H -Extremity Use Left Arm -Pulse Rate (60-100) 61 Intake & Output: Intake and Output for Last 24 Hours 03/19/21 03/20/21 03/21/21 23:59 23:59 23:59 Intake Total 4740.00 / 5400.00 4810.00 / 4810.00 1823.33 / 1823.33 Output Total 400 / 700 300 / 300 Balance 4340.00 / 4700.00 4510.00 / 4510.00 1823.33 / 1823.33 Lab / Micro Data Result Diagrams: 03/21/21 06:44 03/21/21 06:44 Labs: Laboratory Results - last 24 hr 03/21/21 03/21/21 06:44 06:44 WBC 7.8 RBC 3.97 L Hgb 14.3 Hct 40.3 MCV 101.5 H MCH 36.0 H MCHC 35.5 RDW Std Deviation 51.3 H RDW Coeff of Yoli 13.6 Plt Count 191 MPV 8.8 Immature Gran % (Auto) 0.400 Neut % (Auto) 61.0 Lymph % (Auto) 17.8 L [place] % (Auto) 11.4 H Eos % (Auto) 8.8 H Baso % (Auto) 0.6 Absolute Neuts (auto) 4.7 Absolute Lymphs (auto) 1.38 Nucleated RBC % 0 Sodium 130 L Potassium 3.4 L Chloride 98 Carbon Dioxide 25.0 Anion Gap 7 BUN 6 L Creatinine 0.55 L Estim Creat Clear Calc 151.33 Est GFR (MDRD) Af Amer 193 Est GFR (MDRD) Non-Af 159 BUN/Creatinine Ratio 10.9 Glucose 91 Calcium 8.2 L Micro: Microbiology 03/18/21 21:50 Stool Enteric Bacteriology - Final 03/17/21 20:00 Stool C. difficile GDH Antigen & Toxins - Final 03/17/21 20:00 Stool C. difficile DNA Amplification - Final Physical Exam Narrative GENERAL: cooperative HEENT: Atraumatic; EYES; Anicteric, Normal Conjunctiva NECK; supple, normal thyroid, RESPIRATORY: Diminished to auscultation CARDIOVASCULAR: Regular S1 S2, GI: soft, normoactive bowel sounds, : No Renal angle tenderness; EXTREMITIES: No edema, no clubbing, MUSCULOSKELETAL: no muscle waisting NEURO: Awake; no lateralizing signs. SKIN: No Rash PSYCH; Flat affect Assessment & Plan Assessment/Plan (1) Hyponatremia: (2) Physical debility: (3) C. difficile colitis: PLAN: Patient is a 66-year-old gentleman admitted with progressive generalized weakness and falls. He was found to be hyponatremic. Hospital stay complicated by diarrhea stool for C. difficile came back positive currently on appropriate therapy 1. Physical deconditioning with recurrent falls -Patient has recent fall with LEFT hemiarthroplasty. Presented with progressive generalized weakness and repeated falls. Admitted to monitored bed requested for PT OT eval and social security assessor to assist with discharge planning 03/20/2021; plan for patient to be discharged to rehab once diarrhea resolves 2. Hyponatremia ?Secondary to beer put to arian patient admits to chronic alcohol use. Admitted to a monitored bed where he is currently being evaluated with serial BMPs and fluids sodium levels trending up 03/20/2021; sodium levels up to 129 -03/21/2021; patient sodium levels continue to improve seen in consultation by nephrology notes recommendations reviewed 3. Hypomagnesemia -Corrected for protocol -03/20/2021 magnesium level 1.5 additional magnesium given 4. Acute C. difficile colitis ?Patient is on p.o. vancomycin ?03/20/2021; patient continues to experience loose bowel movement -03/21/2021; patient experiencing less loose bowel movement compared to previous day 5. Chronic alcohol abuse ?Patient on phenobarb taper. Counseled on cessation 6. Elevated liver enzymes ?Secondary to chronic alcohol use monitoring LFTs 7. Tobacco dependence - Counseled on cessation, offered nicotine patch for tobacco cravings 8. Hypertension - Blood pressure controlled, home medications continued with dose adjustment as needed -03/21/2021; patient is orthostatic adjusted home meds 9. History of p ventricular tachycardia ?Patient has undergone previous AICD placement currently on amiodarone discontinued 10. History of depression with anxiety -Patient is on buspirone as well as duloxetine did continue 11. DVT prophylaxis ?SC heparin
[2021-03-21] MEDS: Thiamine Hydrochloride 100 MG Tablet PO (08:47)
[2021-03-21] MEDS: Metoprolol(XL)Succ 100 MG Tablet PO (08:47)
[2021-03-21] MEDS: Calcium Carb/Vitamin D 1 TABLET Tablet PO (08:47)
[2021-03-21] MEDS: Amiodarone 200 MG Tablet PO ×2 (08:47→20:54)
[2021-03-21] MEDS: DULoxetine Hcl 60 MG Capsule PO (08:47)
[2021-03-21] MEDS: Folic Acid 1 MG Tablet PO (08:47)
[2021-03-21] MEDS: Aspirin E.C. 81 MG Tablet PO (08:48)
[2021-03-21] MEDS: Magnesium Chloride 64 MG Delay Rel.Tablet 128 MG PO ×2 (08:48→20:54)
[2021-03-21] MEDS: Psyllium 1 PACKET PO ×2 (08:48→20:53)
[2021-03-21] MEDS: Clopidogrel Bisulfate 75 MG Tablet PO (08:48)
[2021-03-21] MEDS: Nystatin Powder 15gm Bottle 1 APPLIC TOPICAL ×2 (08:57→20:56)
[2021-03-21] MEDS: Menthol/Lanolin/Calamine/Znox 113 GM Tube 1 APPLIC TOPICAL ×2 (08:57→20:55)
--- NOTE | 2021-03-21 11:29 | PN.RENAL_ITS ---
Subjective Subjective Diarrhea continues to improve no other complaints Objective Data Objective Data Vital Signs: Vital Signs Temp Pulse Resp BP Pulse Ox 97.3 F L 61 16 128/72 H 95 03/21/21 08:45 03/21/21 08:47 03/21/21 08:45 03/21/21 08:45 03/21/21 08:45 Oxygen Delivery Method Room Air Weight: 86.4 kg Body Mass Index (BMI) 24.2 Orthostatic Vital Signs Start: 03/18/21 02:36 Freq: 0600 Status: Active Protocol: Activity Type Activity Date Activity User E-Sign Co-Sign Detail Recorded Client Recorded Date Recorded By Document 03/21/21 06:00 AMH [id number] 03/21/21 06:15 AMH 03/21/21 06:00 Orthostatic Vitals Standing -Blood Pressure (90/60-120/80) 80/42 L -Extremity Use Left Arm -Pulse Rate (60-100) 75 Sitting -Blood Pressure (90/60-120/80) 101/67 -Extremity Use Left Arm -Pulse Rate (60-100) 67 Lying -Blood Pressure (90/60-120/80) 124/70 H -Extremity Use Left Arm -Pulse Rate (60-100) 61 Intake & Output: Intake and Output for Last 24 Hours 03/19/21 03/20/21 03/21/21 23:59 23:59 23:59 Intake Total 4740.00 / 5400.00 4810.00 / 4810.00 1823.33 / 1823.33 Output Total 400 / 700 300 / 300 Balance 4340.00 / 4700.00 4510.00 / 4510.00 1823.33 / 1823.33 Lab / Micro Data Result Diagrams: 03/21/21 06:44 03/21/21 06:44 Labs: Laboratory Results - last 24 hr 03/21/21 03/21/21 06:44 06:44 WBC 7.8 RBC 3.97 L Hgb 14.3 Hct 40.3 MCV 101.5 H MCH 36.0 H MCHC 35.5 RDW Std Deviation 51.3 H RDW Coeff of [place] 13.6 Plt Count 191 MPV 8.8 Immature Gran % (Auto) 0.400 Neut % (Auto) 61.0 Lymph % (Auto) 17.8 L [place] % (Auto) 11.4 H Eos % (Auto) 8.8 H Baso % (Auto) 0.6 Absolute Neuts (auto) 4.7 Absolute Lymphs (auto) 1.38 Nucleated RBC % 0 Sodium 130 L Potassium 3.4 L Chloride 98 Carbon Dioxide 25.0 Anion Gap 7 BUN 6 L Creatinine 0.55 L Estim Creat Clear Calc 151.33 Est GFR (MDRD) Af Amer 193 Est GFR (MDRD) Non-Af 159 BUN/Creatinine Ratio 10.9 Glucose 91 Calcium 8.2 L Micro: Microbiology 03/18/21 21:50 Stool Enteric Bacteriology - Final 03/17/21 20:00 Stool C. difficile GDH Antigen & Toxins - Final 03/17/21 20:00 Stool C. difficile DNA Amplification - Final Physical Exam Const alert and no apparent distress General Appearance: comfortable HEENT normocephalic Neck General: normal visual inspection and trachea midline Resp normal respiratory effort and clear to auscultation bilaterally Cardio regular rate, regular rhythm, S1 normal heart sound and S2 normal heart sound GI soft to palpation and non-tender Extremity no clubbing, cyanosis or edema Neuro Sensorium / Orientation: awake and alert Assessment & Plan Assessment/Plan (1) Hyponatremia: PLAN: Sodium is 130 better continue normal saline as the patient still has diarrhea. Rate of correction is appropriate. Replace potassium prn. (2) C. difficile colitis: PLAN: On p.o. vancomycin per primary (3) Benign hypertension: PLAN: Controlled continue current medications
--- NOTE | 2021-03-21 11:35 | CASEMGMT ---
Social Work Note Pt is not medically ready for discharge today. SW placed a call to Amanda with [facility] and updated her. Pt will need to be at [facility] before 7:00pm tomorrow () or before 11:00am (Friday). Plan: [facility] when medically cleared Geno Dominguez MSW, DIGITAL PROJECT COORDINATOR
[2021-03-21] MEDS: Ondansetron 4 MG/2 ML Vial IV ×2 (11:57→20:37)
[2021-03-21] MEDS: 0.9% Saline Lock 10 ML Syringe IV (11:57)
[2021-03-21] MEDS: Dicyclomine 10 MG Capsule 20 MG PO ×2 (16:00→23:53)
[2021-03-21] MEDS: MELATONIN 3 MG TABLET PO (20:54)
[2021-03-22] MEDS: 0.9% Normal Saline 1,000 ML 100 ML IV ×3 (01:59→21:55)
[2021-03-22 02:04] VITALS: BP 121/69; PULSE 60; RESP 16; TEMP 36.5; O2SAT 93
[2021-03-22 05:46] LABS: Absolute Lymphocyte Count 1.35 X10^3/uL (0.83-4.51); Absolute Neutrophil Count 4.1 X10^3/uL (2.0-7.7); Basophil# 0.05 X10^3/uL; Basophil% 0.7 % (0-1); Eosinophil# 0.64 X10^3/uL; Eosinophils% 9.2 % (0-5); Hematocrit 37.5 % (40-54); Hemoglobin 13.6 g/dL (13.0-16.5); Lymphocyte # 1.35 X10^3/ul (0.83-4.51); Lymphocyte % 19.3 % (19-41); Mean Corp Hgb Conc 36.3 g/dL (32-36); Mean Corpuscular Hgb 36.1 pg (27.0-32.0); Mean Corpuscular Volume 99.5 fL (80-94); Mean Platelet Vol. 9.1 fl (6.2-12.0); Monocyte# 0.85 X10^3/uL; Monocyte% 12.2 % (0-10); NRBC Flagged by Analyzer 0 % (0-5); Neutrophil # 4.06 X10^3/uL (2.7-7.7); Neutrophil % 58.2 % (47-70); Platelet Count 196 K/mm3 (150-450); RBC Distribution Width CV 13.9 % (11.6-14.6); RBC Distribution Width SD 51.1 fl (35.1-43.9); Red Blood Count 3.77 M/mm3 (4.6-6.2)
[2021-03-22 06:00] VITALS: BP 116/65; BP 122/72; BP 83/42; PULSE 63; PULSE 79
[2021-03-22 06:11] LABS: Anion Gap 8 (5-15); BUN 6 mg/dL (7-18); BUN/Creat Ratio 13.8 RATIO (10-20); Calcium,Total 8.1 mg/dL (8.5-10.1); Chloride 96 mmol/L (98-107); Creatinine, Serum 0.44 mg/dL (0.70-1.30); EST Glomerular Filtration Rate 208 mL/min (>60); Est Glom Filt Rate - Afr Amer 252 mL/min (>60); Estimated Creatinine Clearance 189.16 ml/min; Glucose 98 mg/dL (74-106); Potassium 3.7 mmol/L (3.5-5.1); Sodium Level 130 mmol/L (136-145)
[2021-03-22] MEDS: busPIRone 5 MG Tablet 10 MG PO ×3 (06:13→21:56)
[2021-03-22] MEDS: Heparin Injection (Vial) 5,000 UNIT/ML VIAL 5000 UNIT SC ×3 (06:14→21:56)
--- NOTE | 2021-03-22 07:20 | PCM.PN.HOSP ---
Subjective Subjective Patient seen admit to having formed stools he however remains significantly orthostatic. Adjusted the dose of his metoprolol and added bilateral compression stockings Objective Data Objective Data Vital Signs: Vital Signs Temp Pulse Resp BP Pulse Ox 97.7 F L 63 16 122/72 H 93 03/22/21 02:04 03/22/21 06:00 03/22/21 02:04 03/22/21 06:00 03/22/21 02:04 Oxygen Delivery Method Room Air Weight: 83.915 kg Body Mass Index (BMI) 24.2 Orthostatic Vital Signs Start: 03/18/21 02:36 Freq: 0600 Status: Active Protocol: Activity Type Activity Date Activity User E-Sign Co-Sign Detail Recorded Client Recorded Date Recorded By Document 03/22/21 06:00 EF [id number] 03/22/21 06:23 EF 03/22/21 06:00 Orthostatic Vitals Standing -Blood Pressure (90/60-120/80) 83/42 L -Extremity Use Left Arm -Pulse Rate (60-100) 79 Sitting -Blood Pressure (90/60-120/80) 116/65 -Extremity Use Left Arm -Pulse Rate (60-100) 79 Lying -Blood Pressure (90/60-120/80) 122/72 H -Extremity Use Left Arm -Pulse Rate (60-100) 63 Intake & Output: Intake and Output for Last 24 Hours 03/20/21 03/21/21 03/22/21 23:59 23:59 23:59 Intake Total 4810.00 / 4810.00 3380.00 / 4030.00 2430 / 2430 Output Total 300 / 300 Balance 4510.00 / 4510.00 3380.00 / 4030.00 2430 / 2430 Lab / Micro Data Result Diagrams: 03/22/21 05:28 03/22/21 05:28 Labs: Laboratory Results - last 24 hr 03/22/21 03/22/21 05:28 05:28 WBC 7.0 RBC 3.77 L Hgb 13.6 Hct 37.5 L MCV 99.5 H MCH 36.1 H MCHC 36.3 H RDW Std Deviation 51.1 H RDW Coeff of [place] 13.9 Plt Count 196 MPV 9.1 Immature Gran % (Auto) 0.400 Neut % (Auto) 58.2 Lymph % (Auto) 19.3 [place] % (Auto) 12.2 H Eos % (Auto) 9.2 H Baso % (Auto) 0.7 Absolute Neuts (auto) 4.1 Absolute Lymphs (auto) 1.35 Nucleated RBC % 0 Sodium 130 L Potassium 3.7 Chloride 96 L Carbon Dioxide 26.0 Anion Gap 8 BUN 6 L Creatinine 0.44 L Estim Creat Clear Calc 189.16 Est GFR (MDRD) Af Amer 252 Est GFR (MDRD) Non-Af 208 BUN/Creatinine Ratio 13.8 Glucose 98 Calcium 8.1 L Micro: Microbiology 03/18/21 21:50 Stool Enteric Bacteriology - Final 03/17/21 20:00 Stool C. difficile GDH Antigen & Toxins - Final 03/17/21 20:00 Stool C. difficile DNA Amplification - Final Physical Exam Narrative GENERAL: cooperative HEENT: Atraumatic; EYES; Anicteric, Normal Conjunctiva NECK; supple, normal thyroid, RESPIRATORY: Diminished to auscultation CARDIOVASCULAR:? Regular S1 S2, GI:? soft, normoactive bowel sounds, : No Renal angle tenderness; EXTREMITIES:? No edema, no clubbing, MUSCULOSKELETAL:? no muscle waisting NEURO:? Awake;? no lateralizing signs. SKIN:? No Rash PSYCH; Flat? affect Assessment & Plan Assessment/Plan (1) Hyponatremia: (2) Physical debility: (3) C. difficile colitis: PLAN: Patient is a 66-year-old gentleman admitted with progressive generalized weakness and falls. He was found to be hyponatremic. Hospital stay complicated by diarrhea stool for C. difficile came back positive currently on appropriate therapy 1. Physical deconditioning with recurrent falls -Patient has recent fall with LEFT hemiarthroplasty. Presented with progressive generalized weakness and repeated falls. Admitted to monitored bed requested for PT OT eval and executive secretary social welfare to assist with discharge planning 03/20/2021; plan for patient to be discharged to rehab once diarrhea resolves ?03/22/2021. Plan is for patient to be discharged to the rehab unit once his orthostasis improves 2. Hyponatremia ?Secondary to beer put to arian patient admits to chronic alcohol use. Admitted to a monitored bed where he is currently being evaluated with serial BMPs and fluids sodium levels trending up 03/20/2021; sodium levels up to 129 -03/21/2021; patient sodium levels continue to improve seen in consultation by nephrology notes recommendations reviewed 3. Hypomagnesemia -Corrected for protocol -03/20/2021 magnesium level 1.5 additional magnesium given 4. Acute C. difficile colitis ?Patient is on p.o. vancomycin ?03/20/2021; patient continues to experience loose bowel movement -03/21/2021; patient experiencing less loose bowel movement compared to previous day 5. Orthostatic hypotension ?Patient was on high-dose metoprolol 100 mg daily this was decreased to 25 mg daily. In addition did request for use of bilateral compression stockings. 5. Chronic alcohol abuse ?Patient on phenobarb taper. Counseled on cessation 6. Elevated liver enzymes ?Secondary to chronic alcohol use monitoring LFTs 7. Tobacco dependence - Counseled on cessation, offered nicotine patch for tobacco cravings 8. Hypertension - Blood pressure controlled, home medications continued with dose adjustment as needed -03/21/2021; patient is orthostatic adjusted home meds 9. History of p ventricular tachycardia ?Patient has undergone previous AICD placement currently on amiodarone discontinued 10. History of depression with anxiety -Patient is on buspirone as well as duloxetine did continue 11. DVT prophylaxis ?SC heparin Visit Charges Inpatient E&M: 45753 Subs Hosp L2
--- NOTE | 2021-03-22 08:59 | CASEMGMT ---
Social Work Note Pt is not medically ready for discharge. SW placed a call to Amanda with [facility]. If pt is medically ready for discharge tomorrow, pt will need to be at [facility] before 11:00am. If pt is not medically ready for discharge tomorrow, pt will not be able to admit to [facility] until Friday. Plan: [facility] when medically cleared Geno Dominguez BICYCLE MECHANIC, RECORD TESTER
[2021-03-22] MEDS: Ondansetron 4 MG/2 ML Vial IV ×3 (10:45→21:56)
[2021-03-22] MEDS: Dicyclomine 10 MG Capsule 20 MG PO ×3 (10:45→23:43)
[2021-03-22] MEDS: Folic Acid 1 MG Tablet PO (10:47)
[2021-03-22] MEDS: Calcium Carb/Vitamin D 1 TABLET Tablet PO (10:47)
[2021-03-22] MEDS: Thiamine Hydrochloride 100 MG Tablet PO (10:48)
[2021-03-22] MEDS: DULoxetine Hcl 60 MG Capsule PO (10:48)
[2021-03-22] MEDS: Magnesium Chloride 64 MG Delay Rel.Tablet 128 MG PO ×2 (10:48→21:56)
[2021-03-22] MEDS: Amiodarone 200 MG Tablet PO ×2 (10:48→21:56)
[2021-03-22 10:49] VITALS: BP 128/70; PULSE 64
[2021-03-22] MEDS: Aspirin E.C. 81 MG Tablet PO (10:49)
[2021-03-22] MEDS: Metoprolol(XL)Succ 25 MG Tablet PO (10:49)
[2021-03-22] MEDS: Clopidogrel Bisulfate 75 MG Tablet PO (10:50)
[2021-03-22] MEDS: Psyllium 1 PACKET PO (10:51)
[2021-03-22] MEDS: Menthol/Lanolin/Calamine/Znox 113 GM Tube 1 APPLIC TOPICAL ×2 (10:52→21:55)
[2021-03-22] MEDS: Nystatin Powder 15gm Bottle 1 APPLIC TOPICAL ×2 (10:55→21:55)
--- NOTE | 2021-03-22 13:28 | PN.RENAL_ITS ---
Subjective Subjective No more diarrhea NO SOB/CP Objective Data Objective Data Vital Signs: Vital Signs Temp Pulse Resp BP Pulse Ox 97.7 F L 64 16 128/70 H 93 03/22/21 02:04 03/22/21 10:49 03/22/21 02:04 03/22/21 10:49 03/22/21 02:04 Oxygen Delivery Method Room Air Weight: 83.915 kg Body Mass Index (BMI) 24.2 Orthostatic Vital Signs Start: 03/18/21 02:36 Freq: 0600 Status: Active Protocol: Activity Type Activity Date Activity User E-Sign Co-Sign Detail Recorded Client Recorded Date Recorded By Document 03/22/21 06:00 EF [id number] 03/22/21 06:23 EF 03/22/21 06:00 Orthostatic Vitals Standing -Blood Pressure (90/60-120/80) 83/42 L -Extremity Use Left Arm -Pulse Rate (60-100) 79 Sitting -Blood Pressure (90/60-120/80) 116/65 -Extremity Use Left Arm -Pulse Rate (60-100) 79 Lying -Blood Pressure (90/60-120/80) 122/72 H -Extremity Use Left Arm -Pulse Rate (60-100) 63 Intake & Output: Intake and Output for Last 24 Hours 03/20/21 03/21/21 03/22/21 23:59 23:59 23:59 Intake Total 4810.00 / 4810.00 3380.00 / 4030.00 3370 / 3370 Output Total 300 / 300 Balance 4510.00 / 4510.00 3380.00 / 4030.00 3370 / 3370 Lab / Micro Data Result Diagrams: 03/22/21 05:28 03/22/21 05:28 Labs: Laboratory Results - last 24 hr 03/22/21 03/22/21 05:28 05:28 WBC 7.0 RBC 3.77 L Hgb 13.6 Hct 37.5 L MCV 99.5 H MCH 36.1 H MCHC 36.3 H RDW Std Deviation 51.1 H RDW Coeff of [place] 13.9 Plt Count 196 MPV 9.1 Immature Gran % (Auto) 0.400 Neut % (Auto) 58.2 Lymph % (Auto) 19.3 [place] % (Auto) 12.2 H Eos % (Auto) 9.2 H Baso % (Auto) 0.7 Absolute Neuts (auto) 4.1 Absolute Lymphs (auto) 1.35 Nucleated RBC % 0 Sodium 130 L Potassium 3.7 Chloride 96 L Carbon Dioxide 26.0 Anion Gap 8 BUN 6 L Creatinine 0.44 L Estim Creat Clear Calc 189.16 Est GFR (MDRD) Af Amer 252 Est GFR (MDRD) Non-Af 208 BUN/Creatinine Ratio 13.8 Glucose 98 Calcium 8.1 L Micro: Microbiology 03/18/21 21:50 Stool Enteric Bacteriology - Final 03/17/21 20:00 Stool C. difficile GDH Antigen & Toxins - Final 03/17/21 20:00 Stool C. difficile DNA Amplification - Final Physical Exam Const alert and no apparent distress General Appearance: comfortable HEENT normocephalic Neck General: normal visual inspection and trachea midline Resp normal respiratory effort and clear to auscultation bilaterally Cardio regular rate, regular rhythm, S1 normal heart sound and S2 normal heart sound GI soft to palpation and non-tender Extremity no clubbing, cyanosis or edema Neuro Sensorium / Orientation: awake and alert Assessment & Plan Assessment/Plan (1) Hyponatremia: PLAN: Sodium is 130 stable continue normal saline as the patient still has diarrhea. Rate of correction is appropriate. Replace potassium prn. (2) C. difficile colitis: PLAN: On p.o. vancomycin per primary (3) Benign hypertension: PLAN: Controlled continue current medications
[2021-03-22] MEDS: Phenazopyridine 95 MG Tablet PO ×2 (15:22→21:56)
[2021-03-22] MEDS: 0.9% Saline Lock 10 ML Syringe IV (15:23)
[2021-03-22 15:30] VITALS: BP 123/76; PULSE 60; RESP 16; TEMP 36.6; O2SAT 94
[2021-03-22 15:31] VITALS: BP 128/70; PULSE 64; RESP 18; TEMP 35.9; O2SAT 96
[2021-03-22 21:51] VITALS: BP 120/72; PULSE 60; RESP 18; TEMP 36.4; O2SAT 94
[2021-03-22] MEDS: MELATONIN 3 MG TABLET PO (21:56)
[2021-03-23 03:43] VITALS: BP 129/76; PULSE 66; RESP 18; TEMP 36.9; O2SAT 94
[2021-03-23] MEDS: Heparin Injection (Vial) 5,000 UNIT/ML VIAL 5000 UNIT SC ×3 (06:40→22:52)
[2021-03-23] MEDS: Phenazopyridine 95 MG Tablet PO ×3 (06:40→22:53)
[2021-03-23] MEDS: busPIRone 5 MG Tablet 10 MG PO ×3 (06:40→22:49)
[2021-03-23 07:55] VITALS: BP 114/69; BP 139/78; BP 85/55; PULSE 130; PULSE 58; PULSE 89
[2021-03-23 08:06] VITALS: BP 139/78; PULSE 58; RESP 18; TEMP 35.6; O2SAT 95
[2021-03-23] MEDS: 0.9% Normal Saline 1,000 ML 100 ML IV (08:21)
[2021-03-23] MEDS: Menthol/Lanolin/Calamine/Znox 113 GM Tube 1 APPLIC TOPICAL ×2 (08:21→22:49)
[2021-03-23] MEDS: Nystatin Powder 15gm Bottle 1 APPLIC TOPICAL ×2 (08:21→22:48)
[2021-03-23] MEDS: Dicyclomine 10 MG Capsule 20 MG PO (08:25)
[2021-03-23] MEDS: Ondansetron 4 MG/2 ML Vial IV (08:25)
--- NOTE | 2021-03-23 08:34 | NURSING ---
This nurse performed orthostatic vitals and pt was dizzy with sitting and standing. Pt could only tolerate standing for 3 min. results of Orthos on the board. Dr. Phan came in while this nurse was still in the room and informed him of the VS on board and that pt was still dizzy. Pt did not order breakfast yet and wants to wait to take his morning pills until after he eats.
--- NOTE | 2021-03-23 09:51 | CASEMGMT ---
Social Work Note Pt is not medically ready for discharge today. Pt may be ready for discharge Friday/Friday. ROLANDO placed a call to Amanda with [facility]. Pt can only admit to [facility] Friday if pt is ready over the weekend. ROLANDO placed Green sheet on chart, wrote on chart that pt can only discharge to [facility] Friday. Plan: [facility] Friday Geno Dominguez FUEL OIL TRUCK DRIVER, POWER PRESS TENDER
--- NOTE | 2021-03-23 10:06 | PCM.PN.HOSP ---
Subjective Subjective Patient however remains significantly orthostatic with systolic blood pressure dropping from almost 1 45-80. Did decrease his metoprolol dose the day prior. Ordered bilateral PARMINDER hoses. Also requested for random cortisol level. Objective Data Objective Data Vital Signs: Vital Signs Temp Pulse Resp BP Pulse Ox 96.0 F L 58 L 18 139/78 H 95 03/23/21 08:06 03/23/21 08:06 03/23/21 08:06 03/23/21 08:06 03/23/21 08:06 Oxygen Delivery Method Room Air Weight: 83.5 kg Body Mass Index (BMI) 24.2 Orthostatic Vital Signs Start: 03/18/21 02:36 Freq: 0600 Status: Active Protocol: Activity Type Activity Date Activity User E-Sign Co-Sign Detail Recorded Client Recorded Date Recorded By Document 03/23/21 07:55 TC [id number] 03/23/21 08:04 TC 03/23/21 07:55 Orthostatic Vitals Standing -Blood Pressure (90/60-120/80) 85/55 L -Extremity Use Left Arm -Pulse Rate (60-100) 89 Sitting -Blood Pressure (90/60-120/80) 114/69 -Extremity Use Left Arm -Pulse Rate (60-100) 130 H Lying -Blood Pressure (90/60-120/80) 139/78 H -Extremity Use Left Arm -Pulse Rate (60-100) 58 L Intake & Output: Intake and Output for Last 24 Hours 03/21/21 03/22/21 03/23/21 23:59 23:59 23:59 Intake Total 3380.00 / 4030.00 4490 / 4490 1400 / 1400 Balance 3380.00 / 4030.00 4490 / 4490 1400 / 1400 Lab / Micro Data Result Diagrams: 03/22/21 05:28 03/22/21 05:28 Micro: Microbiology 03/18/21 21:50 Stool Enteric Bacteriology - Final 03/17/21 20:00 Stool C. difficile GDH Antigen & Toxins - Final 03/17/21 20:00 Stool C. difficile DNA Amplification - Final Physical Exam Narrative GENERAL: cooperative HEENT: Atraumatic; EYES; Anicteric, Normal Conjunctiva NECK; supple, normal thyroid, RESPIRATORY: Diminished to auscultation CARDIOVASCULAR:? Regular S1 S2, GI:? soft, normoactive bowel sounds, : No Renal angle tenderness; EXTREMITIES:? No edema, no clubbing, MUSCULOSKELETAL:? no muscle waisting NEURO:? Awake;? no lateralizing signs. SKIN:? No Rash PSYCH; Flat? affect Assessment & Plan Assessment/Plan (1) Hyponatremia: (2) Physical debility: (3) C. difficile colitis: PLAN: Patient is a 66-year-old gentleman admitted with progressive generalized weakness and falls. He was found to be hyponatremic. Hospital stay complicated by diarrhea stool for C. difficile came back positive currently on appropriate therapy 1. Physical deconditioning with recurrent falls -Patient has recent fall with LEFT hemiarthroplasty. Presented with progressive generalized weakness and repeated falls. Admitted to monitored bed requested for PT OT eval and administrator social welfare to assist with discharge planning 03/20/2021; plan for patient to be discharged to rehab once diarrhea resolves ?03/22/2021. Plan is for patient to be discharged to the rehab unit once his orthostasis improves 2. Orthostatic hypotension ?Patient was on high-dose metoprolol 100 mg daily this was decreased to 25 mg daily. In addition did request for use of bilateral compression stockings. -03/23/2021 Patient however remains significantly orthostatic with systolic blood pressure dropping from almost 1 45-80. Did decrease his metoprolol dose the day prior. Ordered bilateral PARMINDER hoses. Also requested for random cortisol level 3. Hyponatremia ?Secondary to beer put to arian patient admits to chronic alcohol use. Admitted to a monitored bed where he is currently being evaluated with serial BMPs and fluids sodium levels trending up 03/20/2021; sodium levels up to 129 -03/21/2021; patient sodium levels continue to improve seen in consultation by nephrology notes recommendations reviewed 4. Hypomagnesemia -Corrected for protocol -03/20/2021 magnesium level 1.5 additional magnesium given 5. Acute C. difficile colitis ?Patient is on p.o. vancomycin ?03/20/2021; patient continues to experience loose bowel movement -03/21/2021; patient experiencing less loose bowel movement compared to previous day 5. Chronic alcohol abuse ?Patient on phenobarb taper. Counseled on cessation 6. Elevated liver enzymes ?Secondary to chronic alcohol use monitoring LFTs 7. Tobacco dependence - Counseled on cessation, offered nicotine patch for tobacco cravings 8. Hypertension - Blood pressure controlled, home medications continued with dose adjustment as needed -03/21/2021; patient is orthostatic adjusted home meds 9. History of p ventricular tachycardia ?Patient has undergone previous AICD placement currently on amiodarone discontinued 10. History of depression with anxiety -Patient is on buspirone as well as duloxetine did continue 11. DVT prophylaxis ?SC heparin Visit Charges Inpatient E&M: 01236 Subs Hosp L2
[2021-03-23 11:17] LABS: Absolute Lymphocyte Count 1.47 X10^3/uL (0.83-4.51); Absolute Neutrophil Count 4.1 X10^3/uL (2.0-7.7); Basophil# 0.06 X10^3/uL; Basophil% 0.8 % (0-1); Eosinophil# 0.69 X10^3/uL; Eosinophils% 9.4 % (0-5); Hematocrit 38.7 % (40-54); Lymphocyte # 1.47 X10^3/ul (0.83-4.51); Lymphocyte % 20.1 % (19-41); Mean Corp Hgb Conc 36.2 g/dL (32-36); Mean Corpuscular Hgb 36.2 pg (27.0-32.0); Mean Platelet Vol. 8.9 fl (6.2-12.0); Monocyte# 0.92 X10^3/uL; Monocyte% 12.6 % (0-10); NRBC Flagged by Analyzer 0 % (0-5); Neutrophil # 4.14 X10^3/uL (2.7-7.7); Neutrophil % 56.7 % (47-70); Platelet Count 208 K/mm3 (150-450); RBC Distribution Width CV 13.7 % (11.6-14.6); RBC Distribution Width SD 50.3 fl (35.1-43.9); Red Blood Count 3.87 M/mm3 (4.6-6.2); White Blood Count 7.3 K/mm3 (4.4-11.0)
[2021-03-23 11:51] LABS: Anion Gap 8 (5-15); BUN 5 mg/dL (7-18); BUN/Creat Ratio 10.1 RATIO (10-20); Calcium,Total 8.2 mg/dL (8.5-10.1); Chloride 91 mmol/L (98-107); EST Glomerular Filtration Rate 179 mL/min (>60); Est Glom Filt Rate - Afr Amer 217 mL/min (>60); Estimated Creatinine Clearance 166.46 ml/min; Glucose 88 mg/dL (74-106); Magnesium 1.6 mg/dL (1.6-2.6); Potassium 3.6 mmol/L (3.5-5.1); Sodium Level 126 mmol/L (136-145)
[2021-03-23 13:37] VITALS: BP 126/79; PULSE 66
[2021-03-23] MEDS: Metoprolol(XL)Succ 25 MG Tablet PO (13:37)
[2021-03-23] MEDS: Magnesium Chloride 64 MG Delay Rel.Tablet 128 MG PO ×2 (13:37→22:49)
[2021-03-23] MEDS: DULoxetine Hcl 60 MG Capsule PO (13:38)
[2021-03-23] MEDS: Clopidogrel Bisulfate 75 MG Tablet PO (13:38)
[2021-03-23] MEDS: Amiodarone 200 MG Tablet PO ×2 (13:38→22:53)
[2021-03-23] MEDS: Folic Acid 1 MG Tablet PO (13:39)
[2021-03-23] MEDS: Calcium Carb/Vitamin D 1 TABLET Tablet PO (13:39)
[2021-03-23] MEDS: Aspirin E.C. 81 MG Tablet PO (13:39)
[2021-03-23] MEDS: Thiamine Hydrochloride 100 MG Tablet PO (13:39)
[2021-03-23 13:49] VITALS: BP 126/79; PULSE 66; RESP 20; TEMP 36.6; O2SAT 95
--- NOTE | 2021-03-23 17:44 | PCM.PN.REN ---
Subjective Subjective States diarrhea almost resolved denies abdominal pain has no other complaints Objective Data Objective Data Vital Signs: Vital Signs Temp Pulse Resp BP Pulse Ox 97.9 F 66 20 H 126/79 H 95 03/23/21 13:49 03/23/21 13:49 03/23/21 13:49 03/23/21 13:49 03/23/21 13:49 Oxygen Delivery Method Room Air Weight: 83.5 kg Body Mass Index (BMI) 24.2 Orthostatic Vital Signs Start: 03/18/21 02:36 Freq: 0600 Status: Active Protocol: Activity Type Activity Date Activity User E-Sign Co-Sign Detail Recorded Client Recorded Date Recorded By Document 03/23/21 07:55 TC [id number] 03/23/21 08:04 TC 03/23/21 07:55 Orthostatic Vitals Standing -Blood Pressure (90/60-120/80) 85/55 L -Extremity Use Left Arm -Pulse Rate (60-100) 89 Sitting -Blood Pressure (90/60-120/80) 114/69 -Extremity Use Left Arm -Pulse Rate (60-100) 130 H Lying -Blood Pressure (90/60-120/80) 139/78 H -Extremity Use Left Arm -Pulse Rate (60-100) 58 L Intake & Output: Intake and Output for Last 24 Hours 03/21/21 03/22/21 03/23/21 23:59 23:59 23:59 Intake Total 3380.00 / 4030.00 4490 / 4490 2100 / 2100 Balance 3380.00 / 4030.00 4490 / 4490 2100 / 2100 Lab / Micro Data Result Diagrams: 03/23/21 11:02 03/23/21 11:02 Labs: Laboratory Results - last 24 hr 03/23/21 03/23/21 03/23/21 11:02 11:02 11:02 WBC 7.3 RBC 3.87 L Hgb 14.0 Hct 38.7 L MCV 100.0 H MCH 36.2 H MCHC 36.2 H RDW Std Deviation 50.3 H RDW Coeff of [place] 13.7 Plt Count 208 MPV 8.9 Immature Gran % (Auto) 0.400 Neut % (Auto) 56.7 Lymph % (Auto) 20.1 [place] % (Auto) 12.6 H Eos % (Auto) 9.4 H Baso % (Auto) 0.8 Absolute Neuts (auto) 4.1 Absolute Lymphs (auto) 1.47 Nucleated RBC % 0 Sodium 126 L Potassium 3.6 Chloride 91 L Carbon Dioxide 27.0 Anion Gap 8 BUN 5 L Creatinine 0.50 L Estim Creat Clear Calc 166.46 Est GFR (MDRD) Af Amer 217 Est GFR (MDRD) Non-Af 179 BUN/Creatinine Ratio 10.1 Glucose 88 Calcium 8.2 L Magnesium 1.6 Cortisol 12.30 Micro: Microbiology 03/18/21 21:50 Stool Enteric Bacteriology - Final 03/17/21 20:00 Stool C. difficile GDH Antigen & Toxins - Final 03/17/21 20:00 Stool C. difficile DNA Amplification - Final Physical Exam Const alert and no apparent distress General Appearance: comfortable HEENT normocephalic Neck General: normal visual inspection and trachea midline Resp normal respiratory effort and clear to auscultation bilaterally Cardio regular rate, regular rhythm, S1 normal heart sound and S2 normal heart sound GI soft to palpation and non-tender Extremity no clubbing, cyanosis or edema Neuro Sensorium / Orientation: awake and alert Assessment & Plan Assessment/Plan (1) Hyponatremia: PLAN: Sodium is 126 reorder U Na osm and serum osmolality.Stop NS start NaCl tabs. (2) C. difficile colitis: PLAN: On p.o. vancomycin per primary (3) Benign hypertension: PLAN: Controlled continue current medications
[2021-03-23 18:18] LABS: Osmolality, Serum 257 mOsm/KG (280-301)
[2021-03-23 20:50] VITALS: BP 129/65; PULSE 67; RESP 18; TEMP 36.3; O2SAT 92
[2021-03-23 21:00] LABS: Urine Sodium 113 mmol/L (Not Establ.)
[2021-03-23 21:06] LABS: Osmolality, Urine 367 mOsm/KG
[2021-03-23] MEDS: MELATONIN 3 MG TABLET PO (22:52)
[2021-03-23] MEDS: Sodium Chloride 1 GM Tablet PO (22:52)
[2021-03-24 03:33] VITALS: BP 134/74; PULSE 66; RESP 18; TEMP 36.6; O2SAT 94
[2021-03-24] MEDS: Phenazopyridine 95 MG Tablet PO (06:48)
[2021-03-24] MEDS: Sodium Chloride 1 GM Tablet PO ×3 (06:48→21:24)
[2021-03-24] MEDS: Heparin Injection (Vial) 5,000 UNIT/ML VIAL 5000 UNIT SC ×3 (06:48→21:24)
[2021-03-24] MEDS: busPIRone 5 MG Tablet 10 MG PO ×3 (06:48→21:23)
[2021-03-24 06:50] VITALS: BP 111/80; BP 136/85; BP 79/47; PULSE 74; PULSE 90; PULSE 96
[2021-03-24 06:53] LABS: Hematocrit 38.7 % (40-54); Hemoglobin 14.1 g/dL (13.0-16.5); Mean Corp Hgb Conc 36.4 g/dL (32-36); Mean Corpuscular Hgb 36.2 pg (27.0-32.0); Mean Corpuscular Volume 99.2 fL (80-94); Mean Platelet Vol. 9.5 fl (6.2-12.0); Platelet Count 221 K/mm3 (150-450); RBC Distribution Width CV 13.8 % (11.6-14.6); White Blood Count 8.6 K/mm3 (4.4-11.0)
--- NOTE | 2021-03-24 07:13 | PN.HOSP_ITS ---
Subjective Subjective Patient seen still complains of feeling dizzy. His random cortisol level came back normal. Objective Data Objective Data Vital Signs: Vital Signs Temp Pulse Resp BP Pulse Ox 98 F 74 18 136/85 H 94 03/24/21 03:33 03/24/21 06:50 03/24/21 03:33 03/24/21 06:50 03/24/21 03:33 Oxygen Delivery Method Room Air Weight: 85 kg Body Mass Index (BMI) 24.2 Orthostatic Vital Signs Start: 03/18/21 02:36 Freq: 0600 Status: Active Protocol: Activity Type Activity Date Activity User E-Sign Co-Sign Detail Recorded Client Recorded Date Recorded By Document 03/24/21 06:50 [facility] [id number] 03/24/21 06:55 [facility] 03/24/21 06:50 Orthostatic Vitals Standing -Blood Pressure (90/60-120/80) 79/47 L -Extremity Use Left Arm -Pulse Rate (60-100) 96 Sitting -Blood Pressure (90/60-120/80) 111/80 -Extremity Use Left Arm -Pulse Rate (60-100) 90 Lying -Blood Pressure (90/60-120/80) 136/85 H -Extremity Use Left Arm -Pulse Rate (60-100) 74 Intake & Output: Intake and Output for Last 24 Hours 03/22/21 03/23/21 03/24/21 23:59 23:59 23:59 Intake Total 4490 / 4490 3520 / 4020 800 / 800 Output Total 100 / 100 Balance 4490 / 4490 3520 / 3920 700 / 700 Lab / Micro Data Result Diagrams: 03/24/21 05:23 03/24/21 05:23 Labs: Laboratory Results - last 24 hr 03/23/21 03/23/21 03/23/21 11:02 11:02 11:02 WBC 7.3 RBC 3.87 L Hgb 14.0 Hct 38.7 L MCV 100.0 H MCH 36.2 H MCHC 36.2 H RDW Std Deviation 50.3 H RDW Coeff of [place] 13.7 Plt Count 208 MPV 8.9 Immature Gran % (Auto) 0.400 Neut % (Auto) 56.7 Lymph % (Auto) 20.1 [place] % (Auto) 12.6 H Eos % (Auto) 9.4 H Baso % (Auto) 0.8 Absolute Neuts (auto) 4.1 Absolute Lymphs (auto) 1.47 Nucleated RBC % 0 Sodium 126 L Potassium 3.6 Chloride 91 L Carbon Dioxide 27.0 Anion Gap 8 BUN 5 L Creatinine 0.50 L Estim Creat Clear Calc 166.46 Est GFR (MDRD) Af Amer 217 Est GFR (MDRD) Non-Af 179 BUN/Creatinine Ratio 10.1 Glucose 88 Serum Osmolality Calcium 8.2 L Magnesium 1.6 Cortisol 12.30 Urine Osmolality Ur Random Sodium 03/23/21 03/23/21 03/24/21 11:02 20:40 05:23 WBC 8.6 RBC 3.90 L Hgb 14.1 Hct 38.7 L MCV 99.2 H MCH 36.2 H MCHC 36.4 H RDW Std Deviation 50.0 H RDW Coeff of [place] 13.8 Plt Count 221 MPV 9.5 Immature Gran % (Auto) Neut % (Auto) Lymph % (Auto) [place] % (Auto) Eos % (Auto) Baso % (Auto) Absolute Neuts (auto) Absolute Lymphs (auto) Nucleated RBC % Sodium Potassium Chloride Carbon Dioxide Anion Gap BUN Creatinine Estim Creat Clear Calc Est GFR (MDRD) Af Amer Est GFR (MDRD) Non-Af BUN/Creatinine Ratio Glucose Serum Osmolality 257 L Calcium Magnesium Cortisol Urine Osmolality 367 Ur Random Sodium 113 Micro: Microbiology 03/18/21 21:50 Stool Enteric Bacteriology - Final 03/17/21 20:00 Stool C. difficile GDH Antigen & Toxins - Final 03/17/21 20:00 Stool C. difficile DNA Amplification - Final Physical Exam Narrative GENERAL: cooperative HEENT: Atraumatic; EYES; Anicteric, Normal Conjunctiva NECK; supple, normal thyroid, RESPIRATORY: Diminished to auscultation CARDIOVASCULAR:? Regular S1 S2, GI:? soft, normoactive bowel sounds, : No Renal angle tenderness; EXTREMITIES:? No edema, no clubbing, MUSCULOSKELETAL:? no muscle waisting NEURO:? Awake;? no lateralizing signs. SKIN:? No Rash PSYCH; Flat? affect Assessment & Plan Assessment/Plan (1) Hyponatremia: (2) Physical debility: (3) C. difficile colitis: PLAN: Patient is a 66-year-old gentleman admitted with progressive generalized weakness and falls. He was found to be hyponatremic. Hospital stay complicated by diarrhea stool for C. difficile came back positive currently on appropriate therapy 1. Physical deconditioning with recurrent falls -Patient has recent fall with LEFT hemiarthroplasty. Presented with progressive generalized weakness and repeated falls. Admitted to monitored bed requested for PT OT eval and social media marketing specialist to assist with discharge planning 03/20/2021; plan for patient to be discharged to rehab once diarrhea resolves ?03/22/2021. Plan is for patient to be discharged to the rehab unit once his orthostasis improves 2. Orthostatic hypotension ?Patient was on high-dose metoprolol 100 mg daily this was decreased to 25 mg daily. In addition did request for use of bilateral compression stockings. -03/23/2021 Patient however remains significantly orthostatic with systolic blood pressure dropping from almost 1 45-80. Did decrease his metoprolol dose the day prior. Ordered bilateral PARMINDER hoses. Also requested for random cortisol level - Patient seen still complains of feeling dizzy. His random cortisol level came back normal. Patient however remains significantly orthostatic. Added midodrine 3. Hyponatremia ?Secondary to beer put to arian patient admits to chronic alcohol use. Admitted to a monitored bed where he is currently being evaluated with serial BMPs and fluids sodium levels trending up 03/20/2021; sodium levels up to 129 -03/21/2021; patient sodium levels continue to improve seen in consultation by nephrology notes recommendations reviewed -03/23/2021. Sodium level trending down. Patient started on fluid restriction 4. Hypomagnesemia -Corrected for protocol -03/20/2021 magnesium level 1.5 additional magnesium given 5. Acute C. difficile colitis ?Patient is on p.o. vancomycin ?03/20/2021; patient continues to experience loose bowel movement -03/21/2021; patient experiencing less loose bowel movement compared to previous day 5. Chronic alcohol abuse ?Patient on phenobarb taper. Counseled on cessation 6. Elevated liver enzymes ?Secondary to chronic alcohol use monitoring LFTs 7. Tobacco dependence - Counseled on cessation, offered nicotine patch for tobacco cravings 8. Hypertension - Blood pressure controlled, home medications continued with dose adjustment as needed -03/21/2021; patient is orthostatic adjusted home meds 9. History of p ventricular tachycardia ?Patient has undergone previous AICD placement currently on amiodarone discontinued 10. History of depression with anxiety -Patient is on buspirone as well as duloxetine did continue 11. DVT prophylaxis ?SC heparin Visit Charges Inpatient E&M: 61397 Subs Hosp L2
[2021-03-24 07:15] LABS: Anion Gap 10 (5-15); BUN 11 mg/dL (7-18); BUN/Creat Ratio 19.2 RATIO (10-20); Calcium,Total 8.6 mg/dL (8.5-10.1); Chloride 90 mmol/L (98-107); Creatinine, Serum 0.57 mg/dL (0.70-1.30); EST Glomerular Filtration Rate 151 mL/min (>60); Est Glom Filt Rate - Afr Amer 183 mL/min (>60); Estimated Creatinine Clearance 146.02 ml/min; Glucose 85 mg/dL (74-106); Potassium 3.9 mmol/L (3.5-5.1); Sodium Level 124 mmol/L (136-145)
[2021-03-24 09:36] VITALS: BP 122/74; PULSE 70; RESP 18; TEMP 36.6; O2SAT 96
[2021-03-24 09:41] VITALS: PULSE 70
[2021-03-24] MEDS: Calcium Carb/Vitamin D 1 TABLET Tablet PO (09:41)
[2021-03-24] MEDS: Metoprolol(XL)Succ 25 MG Tablet PO (09:41)
[2021-03-24] MEDS: Folic Acid 1 MG Tablet PO (09:41)
[2021-03-24] MEDS: Aspirin E.C. 81 MG Tablet PO (09:42)
[2021-03-24] MEDS: Thiamine Hydrochloride 100 MG Tablet PO (09:42)
[2021-03-24] MEDS: Menthol/Lanolin/Calamine/Znox 113 GM Tube 1 APPLIC TOPICAL ×2 (09:42→21:23)
[2021-03-24] MEDS: Amiodarone 200 MG Tablet PO ×2 (09:42→21:24)
[2021-03-24] MEDS: Clopidogrel Bisulfate 75 MG Tablet PO (09:42)
[2021-03-24] MEDS: DULoxetine Hcl 60 MG Capsule PO (09:42)
[2021-03-24] MEDS: Magnesium Chloride 64 MG Delay Rel.Tablet 128 MG PO ×2 (09:42→21:24)
[2021-03-24] MEDS: Nystatin Powder 15gm Bottle 1 APPLIC TOPICAL ×2 (09:42→21:23)
[2021-03-24] MEDS: Midodrine HCl 5 MG Tablet 10 MG PO ×2 (11:58→18:12)
[2021-03-24 15:23] VITALS: BP 145/80; PULSE 71; RESP 16; TEMP 36.9; O2SAT 96
[2021-03-24] MEDS: Dicyclomine 10 MG Capsule 20 MG PO (15:34)
--- NOTE | 2021-03-24 20:02 | PCM.PN.REN ---
Subjective Subjective Following for hyponatremia. The patient denies headaches. He had nausea and vomiting earlier this morning. There has been no recurrence since then. No diarrhea today. The patient is not confused. Objective Data Objective Data Vital Signs: Vital Signs Temp Pulse Resp BP Pulse Ox 98.4 F 71 16 145/80 H 96 03/24/21 15:23 03/24/21 15:23 03/24/21 15:23 03/24/21 15:23 03/24/21 15:23 Oxygen Delivery Method Room Air Weight: 85 kg Body Mass Index (BMI) 24.2 Orthostatic Vital Signs Start: 03/18/21 02:36 Freq: 0600 Status: Active Protocol: Activity Type Activity Date Activity User E-Sign Co-Sign Detail Recorded Client Recorded Date Recorded By Document 03/24/21 06:50 [facility] [id number] 03/24/21 06:55 [facility] 03/24/21 06:50 Orthostatic Vitals Standing -Blood Pressure (90/60-120/80) 79/47 L -Extremity Use Left Arm -Pulse Rate (60-100) 96 Sitting -Blood Pressure (90/60-120/80) 111/80 -Extremity Use Left Arm -Pulse Rate (60-100) 90 Lying -Blood Pressure (90/60-120/80) 136/85 H -Extremity Use Left Arm -Pulse Rate (60-100) 74 Intake & Output: Intake and Output for Last 24 Hours 03/22/21 03/23/21 03/24/21 23:59 23:59 23:59 Intake Total 4490 / 4490 3520 / 4020 1160 / 1160 Output Total 100 / 100 Balance 4490 / 4490 3520 / 3920 1060 / 1060 Lab / Micro Data Result Diagrams: 03/24/21 05:23 03/24/21 05:23 Labs: Laboratory Results - last 24 hr 03/23/21 03/24/21 03/24/21 20:40 05:23 05:23 WBC 8.6 RBC 3.90 L Hgb 14.1 Hct 38.7 L MCV 99.2 H MCH 36.2 H MCHC 36.4 H RDW Std Deviation 50.0 H RDW Coeff of [place] 13.8 Plt Count 221 MPV 9.5 Sodium 124 L Potassium 3.9 Chloride 90 L Carbon Dioxide 24.0 Anion Gap 10 BUN 11 Creatinine 0.57 L Estim Creat Clear Calc 146.02 Est GFR (MDRD) Af Amer 183 Est GFR (MDRD) Non-Af 151 BUN/Creatinine Ratio 19.2 Glucose 85 Calcium 8.6 Urine Osmolality 367 Ur Random Sodium 113 Micro: Microbiology 03/18/21 21:50 Stool Enteric Bacteriology - Final 03/17/21 20:00 Stool C. difficile GDH Antigen & Toxins - Final 03/17/21 20:00 Stool C. difficile DNA Amplification - Final Physical Exam Const alert and no apparent distress General Appearance: comfortable HEENT normocephalic Neck General: normal visual inspection and trachea midline Resp normal respiratory effort and clear to auscultation bilaterally Cardio regular rate, regular rhythm, S1 normal heart sound and S2 normal heart sound GI soft to palpation and non-tender Extremity no clubbing, cyanosis or edema Neuro Sensorium / Orientation: awake and alert Assessment & Plan Assessment/Plan (1) Hyponatremia: PLAN: Sodium is 124 mmol/L today. This is worse, but he is not symptomatic. 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 Urine sodium was greater than 30, and urine osmolality was greater than 100. Continue sodium chloride tablet. Restrict fluid intake to less than 1.2 L/day. If sodium level is not much better tomorrow, I will recheck urine sodium, osmolality and check urine potassium as well. The patient may need to come off of duloxetine if sodium continues to fall. (2) C. difficile colitis: PLAN: On p.o. vancomycin per primary. Diarrhea has resolved for now. (3) Benign hypertension: PLAN: The patient is on metoprolol. He is also on midodrine presumably for chronic hypotension.
[2021-03-24 20:10] VITALS: BP 117/73; PULSE 74; RESP 16; TEMP 36.6; O2SAT 94
[2021-03-24] MEDS: MELATONIN 3 MG TABLET PO (21:24)
[2021-03-25 02:10] VITALS: BP 135/85; PULSE 75; RESP 16; TEMP 36.5; O2SAT 94
[2021-03-25] MEDS: Dicyclomine 10 MG Capsule 20 MG PO ×3 (05:31→18:06)
[2021-03-25] MEDS: Sodium Chloride 1 GM Tablet PO ×3 (05:31→21:14)
[2021-03-25] MEDS: busPIRone 5 MG Tablet 10 MG PO ×3 (05:31→21:14)
[2021-03-25] MEDS: Heparin Injection (Vial) 5,000 UNIT/ML VIAL 5000 UNIT SC ×3 (05:31→21:14)
[2021-03-25 05:39] VITALS: BP 100/47; BP 125/66; BP 79/49; PULSE 72; PULSE 82; PULSE 90
[2021-03-25 06:48] LABS: Hematocrit 39.1 % (40-54); Hemoglobin 14.2 g/dL (13.0-16.5); Mean Corp Hgb Conc 36.3 g/dL (32-36); Mean Corpuscular Hgb 35.9 pg (27.0-32.0); Mean Corpuscular Volume 98.7 fL (80-94); Mean Platelet Vol. 9.2 fl (6.2-12.0); Platelet Count 250 K/mm3 (150-450); RBC Distribution Width CV 13.9 % (11.6-14.6); RBC Distribution Width SD 50.5 fl (35.1-43.9); Red Blood Count 3.96 M/mm3 (4.6-6.2); White Blood Count 8.8 K/mm3 (4.4-11.0)
--- NOTE | 2021-03-25 07:15 | PCM.PN.HOSP ---
Objective Data Objective Data Vital Signs: Vital Signs Temp Pulse Resp BP Pulse Ox 97.7 F L 72 16 125/66 H 94 03/25/21 02:10 03/25/21 05:39 03/25/21 02:10 03/25/21 05:39 03/25/21 02:10 Oxygen Delivery Method Room Air Weight: 87.8 kg Body Mass Index (BMI) 24.2 Orthostatic Vital Signs Start: 03/18/21 02:36 Freq: 0600 Status: Active Protocol: Activity Type Activity Date Activity User E-Sign Co-Sign Detail Recorded Client Recorded Date Recorded By Document 03/25/21 05:39 JN [id number] 03/25/21 05:45 JN 03/25/21 05:39 Orthostatic Vitals Standing -Blood Pressure (90/60-120/80) 79/49 L -Extremity Use Left Arm -Pulse Rate (60-100) 90 Sitting -Blood Pressure (90/60-120/80) 100/47 L -Extremity Use Left Arm -Pulse Rate (60-100) 82 Lying -Blood Pressure (90/60-120/80) 125/66 H -Extremity Use Left Arm -Pulse Rate (60-100) 72 Intake & Output: Intake and Output for Last 24 Hours 03/23/21 03/24/21 03/25/21 23:59 23:59 23:59 Intake Total 3520 / 4020 1160 / 1160 Output Total 100 / 100 Balance 3520 / 3920 1060 / 1060 Lab / Micro Data Result Diagrams: 03/25/21 05:35 03/24/21 05:23 Labs: Laboratory Results - last 24 hr 03/24/21 03/25/21 05:23 05:35 WBC 8.8 RBC 3.96 L Hgb 14.2 Hct 39.1 L MCV 98.7 H MCH 35.9 H MCHC 36.3 H RDW Std Deviation 50.5 H RDW Coeff of [place] 13.9 Plt Count 250 MPV 9.2 Sodium 124 L Potassium 3.9 Chloride 90 L Carbon Dioxide 24.0 Anion Gap 10 BUN 11 Creatinine 0.57 L Estim Creat Clear Calc 146.02 Est GFR (MDRD) Af Amer 183 Est GFR (MDRD) Non-Af 151 BUN/Creatinine Ratio 19.2 Glucose 85 Calcium 8.6 Micro: Microbiology 03/18/21 21:50 Stool Enteric Bacteriology - Final 03/17/21 20:00 Stool C. difficile GDH Antigen & Toxins - Final 03/17/21 20:00 Stool C. difficile DNA Amplification - Final Physical Exam Narrative GENERAL: cooperative HEENT: Atraumatic; EYES; Anicteric, Normal Conjunctiva NECK; supple, normal thyroid, RESPIRATORY: Diminished to auscultation CARDIOVASCULAR:? Regular S1 S2, GI:? soft, normoactive bowel sounds, : No Renal angle tenderness; EXTREMITIES:? No edema, no clubbing, MUSCULOSKELETAL:? no muscle waisting NEURO:? Awake;? no lateralizing signs. SKIN:? No Rash PSYCH; Flat? affect Assessment & Plan Assessment/Plan (1) Hyponatremia: (2) Physical debility: (3) C. difficile colitis: PLAN: Patient is a 66-year-old gentleman admitted with progressive generalized weakness and falls. He was found to be hyponatremic. Hospital stay complicated by diarrhea stool for C. difficile came back positive currently on appropriate therapy 1. Physical deconditioning with recurrent falls -Patient has recent fall with LEFT hemiarthroplasty. Presented with progressive generalized weakness and repeated falls. Admitted to monitored bed requested for PT OT eval and adoption social worker to assist with discharge planning 03/20/2021; plan for patient to be discharged to rehab once diarrhea resolves ?03/22/2021. Plan is for patient to be discharged to the rehab unit once his orthostasis improves 2. Orthostatic hypotension ?Patient was on high-dose metoprolol 100 mg daily this was decreased to 25 mg daily. In addition did request for use of bilateral compression stockings. -03/23/2021 Patient however remains significantly orthostatic with systolic blood pressure dropping from almost 1 45-80. Did decrease his metoprolol dose the day prior. Ordered bilateral PARMINDER hoses. Also requested for random cortisol level - Patient seen still complains of feeling dizzy. His random cortisol level came back normal. Patient however remains significantly orthostatic. Added midodrine 3. Hyponatremia ?Secondary to beer put to arian patient admits to chronic alcohol use. Admitted to a monitored bed where he is currently being evaluated with serial BMPs and fluids sodium levels trending up 03/20/2021; sodium levels up to 129 -03/21/2021; patient sodium levels continue to improve seen in consultation by nephrology notes recommendations reviewed -03/23/2021. Sodium level trending down. Patient started on fluid restriction 4. Hypomagnesemia -Corrected for protocol -03/20/2021 magnesium level 1.5 additional magnesium given 5. Acute C. difficile colitis ?Patient is on p.o. vancomycin ?03/20/2021; patient continues to experience loose bowel movement -03/21/2021; patient experiencing less loose bowel movement compared to previous day 5. Chronic alcohol abuse ?Patient on phenobarb taper. Counseled on cessation 6. Elevated liver enzymes ?Secondary to chronic alcohol use monitoring LFTs 7. Tobacco dependence - Counseled on cessation, offered nicotine patch for tobacco cravings 8. Hypertension - Blood pressure controlled, home medications continued with dose adjustment as needed -03/21/2021; patient is orthostatic adjusted home meds 9. History of p ventricular tachycardia ?Patient has undergone previous AICD placement currently on amiodarone discontinued 10. History of depression with anxiety -Patient is on buspirone as well as duloxetine did continue 11. DVT prophylaxis ?SC heparin
[2021-03-25 07:48] LABS: Anion Gap 9 (5-15); BUN 10 mg/dL (7-18); BUN/Creat Ratio 17.8 RATIO (10-20); Calcium,Total 8.7 mg/dL (8.5-10.1); Chloride 91 mmol/L (98-107); Creatinine, Serum 0.56 mg/dL (0.70-1.30); EST Glomerular Filtration Rate 155 mL/min (>60); Est Glom Filt Rate - Afr Amer 188 mL/min (>60); Estimated Creatinine Clearance 148.62 ml/min; Glucose 107 mg/dL (74-106); Potassium 3.7 mmol/L (3.5-5.1); Sodium Level 124 mmol/L (136-145)
[2021-03-25] MEDS: Thiamine Hydrochloride 100 MG Tablet PO (08:29)
[2021-03-25] MEDS: Midodrine HCl 5 MG Tablet 10 MG PO ×3 (08:30→18:00)
[2021-03-25] MEDS: Clopidogrel Bisulfate 75 MG Tablet PO (08:30)
[2021-03-25] MEDS: Magnesium Chloride 64 MG Delay Rel.Tablet 128 MG PO (08:30)
[2021-03-25] MEDS: Folic Acid 1 MG Tablet PO (08:30)
[2021-03-25] MEDS: Amiodarone 200 MG Tablet PO ×2 (08:30→21:15)
[2021-03-25] MEDS: Calcium Carb/Vitamin D 1 TABLET Tablet PO (08:30)
[2021-03-25] MEDS: Aspirin E.C. 81 MG Tablet PO (08:30)
[2021-03-25] MEDS: DULoxetine Hcl 60 MG Capsule PO (08:30)
[2021-03-25] MEDS: Nystatin Powder 15gm Bottle 1 APPLIC TOPICAL ×2 (08:31→21:14)
[2021-03-25] MEDS: Menthol/Lanolin/Calamine/Znox 113 GM Tube 1 APPLIC TOPICAL ×2 (08:31→21:13)
--- NOTE | 2021-03-25 08:33 | PCM.PN.HOSP ---
Subjective Subjective Patient seen still remains significantly orthostatic. Patient was started on bilateral compression stockings 3 days ago. Was also started on midodrine. Of note cortisol level was within normal limits. Patient not ready to be transferred to the inpatient rehab unit given his significant orthostasis Objective Data Objective Data Vital Signs: Vital Signs Temp Pulse Resp BP Pulse Ox 97.7 F L 72 16 125/66 H 94 03/25/21 02:10 03/25/21 05:39 03/25/21 02:10 03/25/21 05:39 03/25/21 02:10 Oxygen Delivery Method Room Air Weight: 87.8 kg Body Mass Index (BMI) 24.2 Orthostatic Vital Signs Start: 03/18/21 02:36 Freq: 0600 Status: Active Protocol: Activity Type Activity Date Activity User E-Sign Co-Sign Detail Recorded Client Recorded Date Recorded By Document 03/25/21 05:39 [facility] [id number] 03/25/21 05:45 [facility] 03/25/21 05:39 Orthostatic Vitals Standing -Blood Pressure (90/60-120/80) 79/49 L -Extremity Use Left Arm -Pulse Rate (60-100) 90 Sitting -Blood Pressure (90/60-120/80) 100/47 L -Extremity Use Left Arm -Pulse Rate (60-100) 82 Lying -Blood Pressure (90/60-120/80) 125/66 H -Extremity Use Left Arm -Pulse Rate (60-100) 72 Intake & Output: Intake and Output for Last 24 Hours 03/23/21 03/24/21 03/25/21 23:59 23:59 23:59 Intake Total 3520 / 4020 1160 / 1160 Output Total 100 / 100 Balance 3520 / 3920 1060 / 1060 Lab / Micro Data Result Diagrams: 03/25/21 05:35 03/25/21 05:35 Labs: Laboratory Results - last 24 hr 03/25/21 03/25/21 05:35 05:35 WBC 8.8 RBC 3.96 L Hgb 14.2 Hct 39.1 L MCV 98.7 H MCH 35.9 H MCHC 36.3 H RDW Std Deviation 50.5 H RDW Coeff of [place] 13.9 Plt Count 250 MPV 9.2 Sodium 124 L Potassium 3.7 Chloride 91 L Carbon Dioxide 24.0 Anion Gap 9 BUN 10 Creatinine 0.56 L Estim Creat Clear Calc 148.62 Est GFR (MDRD) Af Amer 188 Est GFR (MDRD) Non-Af 155 BUN/Creatinine Ratio 17.8 Glucose 107 H Calcium 8.7 Micro: Microbiology 03/18/21 21:50 Stool Enteric Bacteriology - Final 03/17/21 20:00 Stool C. difficile GDH Antigen & Toxins - Final 03/17/21 20:00 Stool C. difficile DNA Amplification - Final Physical Exam Narrative GENERAL: cooperative HEENT: Atraumatic; EYES; Anicteric, Normal Conjunctiva NECK; supple, normal thyroid, RESPIRATORY: Diminished to auscultation CARDIOVASCULAR:? Regular S1 S2, GI:? soft, normoactive bowel sounds, : No Renal angle tenderness; EXTREMITIES:? No edema, no clubbing, MUSCULOSKELETAL:? no muscle waisting NEURO:? Awake;? no lateralizing signs. SKIN:? No Rash PSYCH; Flat? affect Assessment & Plan Assessment/Plan (1) Hyponatremia: (2) Physical debility: (3) C. difficile colitis: PLAN: Patient is a 66-year-old gentleman admitted with progressive generalized weakness and falls. He was found to be hyponatremic. Hospital stay complicated by diarrhea stool for C. difficile came back positive currently on appropriate therapy 1. Physical deconditioning with recurrent falls -Patient has recent fall with LEFT hemiarthroplasty. Presented with progressive generalized weakness and repeated falls. Admitted to monitored bed requested for PT OT eval and secondary social studies teacher to assist with discharge planning 03/20/2021; plan for patient to be discharged to rehab once diarrhea resolves ?03/22/2021. Plan is for patient to be discharged to the rehab unit once his orthostasis improves 2. Orthostatic hypotension ?Patient was on high-dose metoprolol 100 mg daily this was decreased to 25 mg daily. In addition did request for use of bilateral compression stockings. -03/23/2021 Patient however remains significantly orthostatic with systolic blood pressure dropping from almost 1 45-80. Did decrease his metoprolol dose the day prior. Ordered bilateral PARMINDER hoses. Also requested for random cortisol level -03/24/2021 patient seen still complains of feeling dizzy. His random cortisol level came back normal. Patient however remains significantly orthostatic. Added midodrine -03/25/2021atient seen still remains significantly orthostatic. Patient was started on bilateral compression stockings 3 days ago. Was also started on midodrine. Of note cortisol level was within normal limits. Patient not ready to be transferred to the inpatient rehab unit given his significant orthostasis 3. Hyponatremia ?Secondary to beer put to arian patient admits to chronic alcohol use. Admitted to a monitored bed where he is currently being evaluated with serial BMPs and fluids sodium levels trending up 03/20/2021; sodium levels up to 129 -03/21/2021; patient sodium levels continue to improve seen in consultation by nephrology notes recommendations reviewed -03/23/2021. Sodium level trending down. Patient started on fluid restriction 4. Hypomagnesemia -Corrected for protocol -03/20/2021 magnesium level 1.5 additional magnesium given 5. Acute C. difficile colitis ?Patient is on p.o. vancomycin ?03/20/2021; patient continues to experience loose bowel movement -03/21/2021; patient experiencing less loose bowel movement compared to previous day 5. Chronic alcohol abuse ?Patient on phenobarb taper. Counseled on cessation 6. Elevated liver enzymes ?Secondary to chronic alcohol use monitoring LFTs 7. Tobacco dependence - Counseled on cessation, offered nicotine patch for tobacco cravings 8. Hypertension - Blood pressure controlled, home medications continued with dose adjustment as needed -03/21/2021; patient is orthostatic adjusted home meds 9. History of p ventricular tachycardia ?Patient has undergone previous AICD placement currently on amiodarone discontinued 10. History of depression with anxiety -Patient is on buspirone as well as duloxetine did continue 11. DVT prophylaxis ?SC heparin Visit Charges Inpatient E&M: 75589 Subs Hosp L2
[2021-03-25 10:21] VITALS: BP 126/69; PULSE 76; RESP 16; TEMP 37.1; O2SAT 94
[2021-03-25 10:23] VITALS: PULSE 76
[2021-03-25] MEDS: Metoprolol(XL)Succ 25 MG Tablet PO (10:23)
[2021-03-25 15:13] VITALS: BP 129/78; PULSE 69; RESP 16; TEMP 36.8; O2SAT 98
[2021-03-25] MEDS: 0.9% Saline Lock 10 ML Syringe IV (15:24)
[2021-03-25] MEDS: Ondansetron 4 MG/2 ML Vial IV (15:24)
[2021-03-25 15:49] LABS: Bacteria 0 SEEN /hpf (None Seen); Mucous, Urine 0 SEEN /hpf (<or=2+); Red Blood Cells-Urine 0 SEEN /hpf (0-5); Squamous Epithelial Cells - UA 0 SEEN /hpf (0-5); White Blood Cells 0 SEEN /hpf (0-5)
[2021-03-25 15:51] LABS: Color, Urine Yellow (Yellow); Glucose, Dipstick Normal (Normal); Ketone-Dipstick Negative (Negative); Leukocyte Esterase-Dipstick Negative /ul (Negative); Nitrite-Dipstick Negative (Negative); Occult Blood-Urine Negative /ul (Negative); Protein-Dipstick Negative (Negative); Specific Gravity, Urine 1.015 (1.002-1.030); Urine Bilirubin Dipstick Negative (Negative); Urine Clarity Clear (Clear); Urine Urobilinogen Normal (Normal)
--- NOTE | 2021-03-25 21:14 | PCM.PN.REN ---
Subjective Subjective Following for hyponatremia. The patient denies headaches, confusion, or current nausea. Appetite is still poor. Objective Data Objective Data Vital Signs: Vital Signs Temp Pulse Resp BP Pulse Ox 98.2 F 69 16 129/78 H 98 03/25/21 15:13 03/25/21 15:13 03/25/21 15:13 03/25/21 15:13 03/25/21 15:13 Oxygen Delivery Method Room Air Weight: 87.8 kg Body Mass Index (BMI) 24.2 Orthostatic Vital Signs Start: 03/18/21 02:36 Freq: 0600 Status: Active Protocol: Activity Type Activity Date Activity User E-Sign Co-Sign Detail Recorded Client Recorded Date Recorded By Document 03/25/21 05:39 [facility] [id number] 03/25/21 05:45 [facility] 03/25/21 05:39 Orthostatic Vitals Standing -Blood Pressure (90/60-120/80) 79/49 L -Extremity Use Left Arm -Pulse Rate (60-100) 90 Sitting -Blood Pressure (90/60-120/80) 100/47 L -Extremity Use Left Arm -Pulse Rate (60-100) 82 Lying -Blood Pressure (90/60-120/80) 125/66 H -Extremity Use Left Arm -Pulse Rate (60-100) 72 Intake & Output: Intake and Output for Last 24 Hours 03/23/21 03/24/21 03/25/21 23:59 23:59 23:59 Intake Total 3520 / 4020 1160 / 1160 Output Total 100 / 100 50 / 50 Balance 3520 / 3920 1060 / 1060 -50 / -50 Lab / Micro Data Result Diagrams: 03/25/21 05:35 03/25/21 05:35 Labs: Laboratory Results - last 24 hr 03/25/21 03/25/21 03/25/21 05:35 05:35 15:40 WBC 8.8 RBC 3.96 L Hgb 14.2 Hct 39.1 L MCV 98.7 H MCH 35.9 H MCHC 36.3 H RDW Std Deviation 50.5 H RDW Coeff of [place] 13.9 Plt Count 250 MPV 9.2 Sodium 124 L Potassium 3.7 Chloride 91 L Carbon Dioxide 24.0 Anion Gap 9 BUN 10 Creatinine 0.56 L Estim Creat Clear Calc 148.62 Est GFR (MDRD) Af Amer 188 Est GFR (MDRD) Non-Af 155 BUN/Creatinine Ratio 17.8 Glucose 107 H Calcium 8.7 Urine Color Yellow Urine Clarity Clear Urine pH 8.0 Ur Specific [place] 1.015 Urine Protein Negative Urine Glucose (UA) Normal Urine Ketones Negative Urine Occult Blood Negative Urine Nitrite Negative Urine Bilirubin Negative Urine Urobilinogen Normal Ur Leukocyte Esterase Negative Urine RBC 0 SEEN Urine WBC 0 SEEN Ur Squamous Epith Cells 0 SEEN Urine Bacteria 0 SEEN Urine Mucus 0 SEEN Micro: Microbiology 03/18/21 21:50 Stool Enteric Bacteriology - Final 03/17/21 20:00 Stool C. difficile GDH Antigen & Toxins - Final 03/17/21 20:00 Stool C. difficile DNA Amplification - Final Physical Exam Const alert and no apparent distress General Appearance: comfortable HEENT normocephalic Neck General: normal visual inspection and trachea midline Resp normal respiratory effort and clear to auscultation bilaterally Cardio regular rate, regular rhythm, S1 normal heart sound and S2 normal heart sound GI soft to palpation and non-tender Extremity no clubbing, cyanosis or edema Neuro Sensorium / Orientation: awake and alert Assessment & Plan Assessment/Plan (1) Hyponatremia: PLAN: Sodium is still at 124 mmol/L today. This is low but stable. The patient is not symptomatic. Repeat urine studies on 03/23/2021 were consistent with SIADH. Urine sodium was greater than 30, and urine osmolality was greater than 100. Continue sodium chloride tablet. Restrict fluid intake to less than 1.2 L/day. Encouraged the patient to increase solute intake, especially protein. If sodium level is lower tomorrow, I will recheck urine sodium, osmolality and check urine potassium as well. The patient may need to come off of duloxetine if sodium continues to fall. (2) C. difficile colitis: PLAN: On p.o. vancomycin per primary. Diarrhea has resolved for now. (3) Benign hypertension: PLAN: The patient is on metoprolol. He is also on midodrine presumably for chronic hypotension.
[2021-03-25 21:20] VITALS: BP 137/83; PULSE 72; RESP 16; TEMP 37.1; O2SAT 94
[2021-03-26] VITALS (8 sets, daily range): BP systolic 101–135; BP diastolic 69–82; PULSE 66–80; RESP 16–18; TEMP 36.4–36.7; O2SAT 92–98
[2021-03-26] MEDS: Sodium Chloride 1 GM Tablet PO ×2 (05:07→13:32)
[2021-03-26] MEDS: Heparin Injection (Vial) 5,000 UNIT/ML VIAL 5000 UNIT SC ×3 (05:07→21:36)
[2021-03-26] MEDS: busPIRone 5 MG Tablet 10 MG PO ×3 (05:07→21:36)
[2021-03-26 05:47] LABS: Hematocrit 41.2 % (40-54); Mean Corp Hgb Conc 36.4 g/dL (32-36); Mean Corpuscular Hgb 36.2 pg (27.0-32.0); Mean Corpuscular Volume 99.5 fL (80-94); Mean Platelet Vol. 9.1 fl (6.2-12.0); Platelet Count 274 K/mm3 (150-450); RBC Distribution Width CV 14.1 % (11.6-14.6); RBC Distribution Width SD 51.6 fl (35.1-43.9); Red Blood Count 4.14 M/mm3 (4.6-6.2); White Blood Count 10.4 K/mm3 (4.4-11.0)
[2021-03-26 06:04] LABS: Anion Gap 8 (5-15); BUN 9 mg/dL (7-18); BUN/Creat Ratio 16.2 RATIO (10-20); Calcium,Total 8.8 mg/dL (8.5-10.1); Chloride 89 mmol/L (98-107); Creatinine, Serum 0.56 mg/dL (0.70-1.30); EST Glomerular Filtration Rate 157 mL/min (>60); Est Glom Filt Rate - Afr Amer 189 mL/min (>60); Estimated Creatinine Clearance 148.62 ml/min; Glucose 99 mg/dL (74-106); Potassium 3.9 mmol/L (3.5-5.1); Sodium Level 124 mmol/L (136-145)
[2021-03-26] MEDS: Calcium Carb/Vitamin D 1 TABLET Tablet PO (09:39)
[2021-03-26] MEDS: Thiamine Hydrochloride 100 MG Tablet PO (09:39)
[2021-03-26] MEDS: Midodrine HCl 5 MG Tablet 10 MG PO ×3 (09:39→17:04)
[2021-03-26] MEDS: Dicyclomine 10 MG Capsule 20 MG PO ×2 (09:39→15:59)
[2021-03-26] MEDS: Nystatin Powder 15gm Bottle 1 APPLIC TOPICAL ×2 (09:40→21:37)
[2021-03-26] MEDS: Aspirin E.C. 81 MG Tablet PO (09:40)
[2021-03-26] MEDS: Folic Acid 1 MG Tablet PO (09:40)
[2021-03-26] MEDS: Menthol/Lanolin/Calamine/Znox 113 GM Tube 1 APPLIC TOPICAL ×2 (09:40→21:36)
--- NOTE | 2021-03-26 10:06 | CASEMGMT ---
Social Work Note Pt is not medically ready for discharge today, likely tomorrow. ROLANDO placed a call to Amanda with [facility] and updated her. Plan: [facility] when medically cleared Geno Dominguez TOW MOTOR DRIVER, ROTATIONAL MOULDING OPERATOR
[2021-03-26] MEDS: Amiodarone 200 MG Tablet PO ×2 (10:45→21:36)
[2021-03-26] MEDS: Clopidogrel Bisulfate 75 MG Tablet PO (10:45)
[2021-03-26] MEDS: Metoprolol(XL)Succ 25 MG Tablet PO (10:45)
[2021-03-26] MEDS: Ondansetron 4 MG/2 ML Vial IV (10:49)
[2021-03-26] MEDS: 0.9% Saline Lock 10 ML Syringe IV ×2 (10:49→17:04)
[2021-03-26] MEDS: DULoxetine Hcl 60 MG Capsule PO (12:16)
[2021-03-26] MEDS: Magnesium Chloride 64 MG Delay Rel.Tablet 128 MG PO ×2 (12:16→21:36)
[2021-03-26] MEDS: Mag Hydrox/Al Hydrox/Simeth 30 ML UDC PO (13:32)
--- NOTE | 2021-03-26 15:37 | PCM.PN.REN ---
Subjective Subjective no new complaints Objective Data Objective Data Vital Signs: Vital Signs Temp Pulse Resp BP Pulse Ox 97.6 F L 69 16 116/71 92 03/26/21 12:14 03/26/21 12:14 03/26/21 12:14 03/26/21 12:14 03/26/21 12:14 Oxygen Delivery Method Room Air Weight: 84.113 kg Body Mass Index (BMI) 24.2 Orthostatic Vital Signs Start: 03/18/21 02:36 Freq: 0600 Status: Active Protocol: Activity Type Activity Date Activity User E-Sign Co-Sign Detail Recorded Client Recorded Date Recorded By Document 03/26/21 05:11 [facility] [id number] 03/26/21 05:17 [facility] 03/26/21 05:11 Orthostatic Vitals Standing -Blood Pressure (90/60-120/80 mm Hg) 122/82 H -Extremity Use Left Arm -Pulse Rate (60-100 beats/min) 80 Sitting -Blood Pressure (90/60-120/80 mm Hg) 101/69 -Extremity Use Left Arm -Pulse Rate (60-100 beats/min) 71 Lying -Blood Pressure (90/60-120/80 mm Hg) 135/81 H -Extremity Use Left Arm -Pulse Rate (60-100 beats/min) 76 Intake & Output: Intake and Output for Last 24 Hours 03/24/21 03/25/21 03/26/21 23:59 23:59 23:59 Intake Total 1160 / 1160 500 / 500 Output Total 100 / 100 50 / 50 Balance 1060 / 1060 -50 / -50 500 / 500 Lab / Micro Data Result Diagrams: 03/26/21 05:28 03/26/21 05:28 Labs: Laboratory Results - last 24 hr 03/25/21 03/26/21 03/26/21 15:40 05:28 05:28 WBC 10.4 RBC 4.14 L Hgb 15.0 Hct 41.2 MCV 99.5 H MCH 36.2 H MCHC 36.4 H RDW Std Deviation 51.6 H RDW Coeff of Yoli 14.1 Plt Count 274 MPV 9.1 Sodium 124 L Potassium 3.9 Chloride 89 L Carbon Dioxide 27.0 Anion Gap 8 BUN 9 Creatinine 0.56 L Estim Creat Clear Calc 148.62 Est GFR (MDRD) Af Amer 189 Est GFR (MDRD) Non-Af 157 BUN/Creatinine Ratio 16.2 Glucose 99 Calcium 8.8 Urine Color Yellow Urine Clarity Clear Urine pH 8.0 Ur Specific [place] 1.015 Urine Protein Negative Urine Glucose (UA) Normal Urine Ketones Negative Urine Occult Blood Negative Urine Nitrite Negative Urine Bilirubin Negative Urine Urobilinogen Normal Ur Leukocyte Esterase Negative Urine RBC 0 SEEN Urine WBC 0 SEEN Ur Squamous Epith Cells 0 SEEN Urine Bacteria 0 SEEN Urine Mucus 0 SEEN Micro: Microbiology 03/25/21 15:40 Urine, Random Urine Culture - Preliminary Staphylococcus species 03/18/21 21:50 Stool Enteric Bacteriology - Final 03/17/21 20:00 Stool C. difficile GDH Antigen & Toxins - Final 03/17/21 20:00 Stool C. difficile DNA Amplification - Final Physical Exam Const alert and no apparent distress General Appearance: comfortable HEENT normocephalic Neck General: normal visual inspection and trachea midline Resp normal respiratory effort and clear to auscultation bilaterally Cardio regular rate, regular rhythm, S1 normal heart sound and S2 normal heart sound GI soft to palpation and non-tender Extremity no clubbing, cyanosis or edema Neuro Sensorium / Orientation: awake and alert Assessment & Plan Assessment/Plan (1) Hyponatremia: PLAN: Sodium is still at 124 mmol/L today. This is low but stable. The patient is not symptomatic. Repeat urine studies on were consistent with SIADH. Urine sodium is almost equal to serum sodium tolvaptan and Benavides not available. Vaptans will be contraindicated since his BP is low off antidepressants already will increase salt tablets and add florinef for today since BP is still low standing up (2) C. difficile colitis: PLAN: On p.o. vancomycin per primary. Diarrhea has resolved for now. (3) Benign hypertension: PLAN: has postural hypotension. serum cortisol is ok. add florinef for today. dont think will send him on this.
--- NOTE | 2021-03-26 16:55 | PN.HOSP_ITS ---
Subjective Subjective Patient states he still having intermittent lightheadedness. I discussed with him the possibility of utilizing thigh high PARMINDER hose and he is reluctant to do this and would like to see how his Midrin works first. He indicates that the lightheadedness improves with time but it is pretty significant initially. His orthostatic vitals were obtained today and were only positive from lying to sitting but sitting to standing they were within normal limits. Objective Data Objective Data Vital Signs: Vital Signs Temp Pulse Resp BP Pulse Ox 97.6 F L 69 16 116/71 92 03/26/21 12:14 03/26/21 12:14 03/26/21 12:14 03/26/21 12:14 03/26/21 12:14 Oxygen Delivery Method Room Air Weight: 84.113 kg Body Mass Index (BMI) 24.2 Orthostatic Vital Signs Start: 03/18/21 02:36 Freq: 0600 Status: Active Protocol: Activity Type Activity Date Activity User E-Sign Co-Sign Detail Recorded Client Recorded Date Recorded By Document 03/26/21 05:11 [facility] [id number] 03/26/21 05:17 [facility] 03/26/21 05:11 Orthostatic Vitals Standing -Blood Pressure (90/60-120/80) 122/82 H -Extremity Use Left Arm -Pulse Rate (60-100) 80 Sitting -Blood Pressure (90/60-120/80) 101/69 -Extremity Use Left Arm -Pulse Rate (60-100) 71 Lying -Blood Pressure (90/60-120/80) 135/81 H -Extremity Use Left Arm -Pulse Rate (60-100) 76 Intake & Output: Intake and Output for Last 24 Hours 03/24/21 03/25/21 03/26/21 23:59 23:59 23:59 Intake Total 1160 / 1160 500 / 500 Output Total 100 / 100 50 / 50 Balance 1060 / 1060 -50 / -50 500 / 500 Lab / Micro Data Result Diagrams: 03/26/21 05:28 03/26/21 05:28 Labs: Laboratory Results - last 24 hr 03/26/21 03/26/21 05:28 05:28 WBC 10.4 RBC 4.14 L Hgb 15.0 Hct 41.2 MCV 99.5 H MCH 36.2 H MCHC 36.4 H RDW Std Deviation 51.6 H RDW Coeff of Yoli 14.1 Plt Count 274 MPV 9.1 Sodium 124 L Potassium 3.9 Chloride 89 L Carbon Dioxide 27.0 Anion Gap 8 BUN 9 Creatinine 0.56 L Estim Creat Clear Calc 148.62 Est GFR (MDRD) Af Amer 189 Est GFR (MDRD) Non-Af 157 BUN/Creatinine Ratio 16.2 Glucose 99 Calcium 8.8 Micro: Microbiology 03/25/21 15:40 Urine, Random Urine Culture - Preliminary Staphylococcus species 03/18/21 21:50 Stool Enteric Bacteriology - Final 03/17/21 20:00 Stool C. difficile GDH Antigen & Toxins - Final 03/17/21 20:00 Stool C. difficile DNA Amplification - Final Physical Exam Const alert, oriented x3, no apparent distress and well nourished Exam Limitations: no limitations HEENT head/scalp atraumatic, moist oral mucous membranes and oropharynx normal Head and Scalp: normocephalic Eyes PERRL, EOMs intact bilaterally and conjunctivae normal Neck no lymphadenopathy, supple and no JVD Resp normal respiratory effort, no retractions, no use of accessory muscles and clear to auscultation bilaterally Resp Narrative: Diffusely diminished but clear Cardio regular rate, regular rhythm, S1 normal heart sound, S2 normal heart sound, no gallops and no clicks GI normal to inspection, nondistended, normoactive bowel sounds, soft to palpation, non-tender and non-distended Extremity normal to inspection, full ROM and no clubbing, cyanosis or edema Peripheral Pulses: Yes pulses 2+ throughout Skin no rashes or lesions noted, skin turgor normal, no jaundice, no petechiae and no mottling Skin Narrative: Pale skin Neuro oriented x3, CN's II-XII intact bilaterally, moves all extremities, no focal motor deficits and no sensory deficits noted Neuro Narrative: Patient appears to have some generalized weakness Sensorium / Orientation: awake, alert, oriented to person, oriented to place and oriented to time Speech: speech normal Psych Psych Narrative: Mild agitation with flat affect Assessment & Plan Assessment/Plan (1) C. difficile colitis: (2) Physical debility: (3) Hyponatremia: (4) Syndrome of inappropriate ADH (SIADH) secretion: PLAN: Physical deconditioning with recurrent falls -Continue PT and OT -Patient has recent fall with resultant left hemiarthroplasty -Plan is for rehab discharge once orthostasis improves -Possibly tomorrow Orthostatic hypotension -Orthostatic vitals were improved today -TSH and random cortisol level were within normal limits -Metoprolol dose has been decreased to 25 mg daily -Florinef added today by nephrology--> Per note patient will likely not be discharged on this medication -Continue midodrine -This may also be exacerbated by volume loss related to C. difficile prior to presentation C. difficile associated diarrhea -Continue p.o. vancomycin -We will need a 14-day course -This was started on 03/19/2021 -Diarrhea has improved Hyponatremia secondary to SIADH -Vaptans contraindicated secondary to hypotension -Avoid SSRIs/SNRIs -Florinef added today -Continue salt tablets--> dose was increased by nephrology -Continue 1200 cc fluid restriction -Repeat BMP in a.m. History of hypertension -Patient remains on beta-lilliana secondary to history of ventricular tachycardia but dose has been reduced -Patient is currently having issues with postural hypotension Transaminitis secondary to chronic alcohol use History of ventricular tachycardia -AICD in place -Continue low-dose metoprolol -No issues this hospitalization Chronic alcohol abuse -Continue thiamine folate -VAC hands Tobacco abuse -Nicotine patch as needed -Recommend cessation DVT prophylaxis -Subcu heparin Visit Charges Inpatient E&M: 21658 Subs Hosp L2
[2021-03-26] MEDS: Fludrocortisone Acetate 0.1 MG Tablet PO (17:04)
[2021-03-26] MEDS: Sodium Chloride 1 GM Tablet 2 GM PO ×2 (17:04→21:36)
[2021-03-26] MEDS: MELATONIN 3 MG TABLET PO (21:36)
[2021-03-27 03:36] VITALS: BP 116/72; PULSE 67; RESP 18; TEMP 36.6; O2SAT 96
[2021-03-27 05:45] VITALS: BP 112/73; BP 57/37; BP 80/51; PULSE 114; PULSE 71; PULSE 76
--- NOTE | 2021-03-27 06:03 | NURSING ---
pt refused to take all 0600 meds for this RN this morning. pt states they dont work. Just let me sleep. this RN educated pt the importance of taking these scheduled meds, pt raising voice at this RN and said I am not taking them
[2021-03-27 06:21] LABS: Anion Gap 9 (5-15); BUN 9 mg/dL (7-18); BUN/Creat Ratio 18.9 RATIO (10-20); Calcium,Total 8.7 mg/dL (8.5-10.1); Chloride 93 mmol/L (98-107); Creatinine, Serum 0.48 mg/dL (0.70-1.30); EST Glomerular Filtration Rate 188 mL/min (>60); Est Glom Filt Rate - Afr Amer 227 mL/min (>60); Estimated Creatinine Clearance 173.39 ml/min; Glucose 95 mg/dL (74-106); Potassium 3.9 mmol/L (3.5-5.1); Sodium Level 124 mmol/L (136-145)
[2021-03-27 10:26] VITALS: BP 111/69; PULSE 82; RESP 16; TEMP 36.7; O2SAT 99
[2021-03-27] MEDS: Aspirin E.C. 81 MG Tablet PO (10:33)
[2021-03-27] MEDS: Fludrocortisone Acetate 0.1 MG Tablet PO (10:33)
[2021-03-27] MEDS: Midodrine HCl 5 MG Tablet 10 MG PO ×3 (10:34→17:45)
[2021-03-27] MEDS: Calcium Carb/Vitamin D 1 TABLET Tablet PO (10:34)
[2021-03-27] MEDS: Folic Acid 1 MG Tablet PO (10:34)
[2021-03-27] MEDS: Thiamine Hydrochloride 100 MG Tablet PO (10:35)
[2021-03-27] MEDS: Clopidogrel Bisulfate 75 MG Tablet PO (10:58)
[2021-03-27 10:59] VITALS: PULSE 82
[2021-03-27] MEDS: Metoprolol(XL)Succ 25 MG Tablet PO (10:59)
[2021-03-27] MEDS: Amiodarone 200 MG Tablet PO ×2 (11:01→20:31)
[2021-03-27] MEDS: DULoxetine Hcl 60 MG Capsule PO (11:02)
--- NOTE | 2021-03-27 11:02 | CASEMGMT ---
Social Work Note Pt still not medically ready for discharge to , Orthostatics may be checked again later today. ROLANDO placed a call to Amanda with and updated her. Plan: when medically cleared Geno Dominguez NATURAL RESOURCE TECHNICIAN, EDUCATION DIRECTOR
[2021-03-27] MEDS: Menthol/Lanolin/Calamine/Znox 113 GM Tube 1 APPLIC TOPICAL ×2 (11:03→20:25)
[2021-03-27] MEDS: Nystatin Powder 15gm Bottle 1 APPLIC TOPICAL ×2 (11:04→20:24)
[2021-03-27] MEDS: Ondansetron 4 MG/2 ML Vial IV ×2 (11:10→18:06)
[2021-03-27] MEDS: 0.9% Saline Lock 10 ML Syringe IV (11:11)
[2021-03-27] MEDS: 0.9% Normal Saline 1,000 ML 75 ML IV (12:50)
[2021-03-27] MEDS: Magnesium Chloride 64 MG Delay Rel.Tablet 128 MG PO ×2 (12:51→20:25)
--- NOTE | 2021-03-27 14:00 | PN.HOSP_ITS ---
Subjective Subjective Patient refused his morning meds but upon questioning he states that he will take them he just would like to have some food first as he feels that making him nauseated. He was still symptomatic with his orthostatic vitals this morning which were markedly positive. He is now agreeable to trying some PARMINDER hose-thigh -high. Objective Data Objective Data Vital Signs: Vital Signs Temp Pulse Resp BP Pulse Ox 98.1 F 82 16 111/69 99 03/27/21 10:26 03/27/21 10:59 03/27/21 10:26 03/27/21 10:26 03/27/21 10:26 Oxygen Delivery Method Room Air Weight: 84.323 kg Body Mass Index (BMI) 24.2 Orthostatic Vital Signs Start: 03/18/21 02:36 Freq: 0600 Status: Active Protocol: Activity Type Activity Date Activity User E-Sign Co-Sign Detail Recorded Client Recorded Date Recorded By Document 03/27/21 05:45 JG [id number] 03/27/21 05:50 JG 03/27/21 05:45 Orthostatic Vitals Standing -Blood Pressure (90/60-120/80) 57/37 L -Extremity Use Left Arm -Pulse Rate (60-100) 114 H Sitting -Blood Pressure (90/60-120/80) 80/51 L -Extremity Use Left Arm -Pulse Rate (60-100) 71 Lying -Blood Pressure (90/60-120/80) 112/73 -Extremity Use Left Arm -Pulse Rate (60-100) 76 Intake & Output: Intake and Output for Last 24 Hours 03/25/21 03/26/21 03/27/21 23:59 23:59 23:59 Intake Total 1000 / 1000 250 / 250 Output Total 50 / 50 Balance -50 / -50 1000 / 1000 250 / 250 Lab / Micro Data Result Diagrams: 03/26/21 05:28 03/27/21 05:26 Labs: Laboratory Results - last 24 hr 03/27/21 05:26 Sodium 124 L Potassium 3.9 Chloride 93 L Carbon Dioxide 22.0 Anion Gap 9 BUN 9 Creatinine 0.48 L Estim Creat Clear Calc 173.39 Est GFR (MDRD) Af Amer 227 Est GFR (MDRD) Non-Af 188 BUN/Creatinine Ratio 18.9 Glucose 95 Calcium 8.7 Micro: Microbiology 03/25/21 15:40 Urine, Random Urine Culture - Preliminary Staphylococcus species Gram negative chris 03/18/21 21:50 Stool Enteric Bacteriology - Final 03/17/21 20:00 Stool C. difficile GDH Antigen & Toxins - Final 03/17/21 20:00 Stool C. difficile DNA Amplification - Final Physical Exam Const alert, oriented x3, no apparent distress and well nourished Constitutional Narrative: Upper middle-aged white male lying in bed, on the phone, appears comfortable, patient is lying flat Exam Limitations: no limitations HEENT head/scalp atraumatic, moist oral mucous membranes and oropharynx normal Head and Scalp: normocephalic Eyes PERRL, EOMs intact bilaterally and conjunctivae normal Neck supple Neck Narrative: Trachea midline Resp normal respiratory effort, no retractions, no use of accessory muscles and clear to auscultation bilaterally Resp Narrative: Diffusely diminished but clear Cardio regular rate, regular rhythm, S1 normal heart sound, S2 normal heart sound, no gallops and no clicks GI normal to inspection, nondistended, normoactive bowel sounds, soft to palpation, non-tender and non-distended Extremity normal to inspection, full ROM and no clubbing, cyanosis or edema Skin no rashes or lesions noted, skin turgor normal, no jaundice, no petechiae and no mottling Skin Narrative: Pale skin Neuro oriented x3, CN's II-XII intact bilaterally, moves all extremities, no focal motor deficits and no sensory deficits noted Neuro Narrative: Patient appears to have some generalized weakness Sensorium / Orientation: awake, alert, oriented to person, oriented to place and oriented to time Speech: speech normal Psych Psych Narrative: Calm with less agitation today Assessment & Plan Assessment/Plan (1) C. difficile colitis: (2) Physical debility: (3) Hyponatremia: (4) Syndrome of inappropriate ADH (SIADH) secretion: PLAN: Physical deconditioning with recurrent falls -Continue PT and OT -Patient has recent fall with resultant left hemiarthroplasty -Plan is for rehab discharge once orthostasis improves Orthostatic hypotension -Orthostatic vitals this morning were much worse than they were yesterday despite changes in medications -Will repeat this afternoon after the initiation of PARMINDER hose and some IV fluids -Add thigh-high PARMINDER hose-patient is agreeable today -Per discussion with nephrology will start some gentle hydration -TSH and random cortisol level were within normal limits -Metoprolol dose has been decreased to 25 mg daily--> continue -Continue Florinef -Continue midodrine -This may also be exacerbated by volume loss related to C. difficile prior to presentation C. difficile associated diarrhea -Continue p.o. vancomycin -We will need a 14-day course -This was started on 03/19/2021 -Diarrhea has almost resolved at this time Hyponatremia secondary to SIADH -Vaptans contraindicated secondary to hypotension -Avoid SSRIs/SNRIs -Florinef -Gentle hydration per discussion with nephrology -Continue salt tablets--> dose was increased by nephrology -Repeat BMP in a.m. History of hypertension -Patient remains on beta-lilliana secondary to history of ventricular tachycardia but dose has been reduced -Patient is currently having issues with postural hypotension Transaminitis secondary to chronic alcohol use History of ventricular tachycardia -AICD in place -Continue low-dose metoprolol -No issues this hospitalization Chronic alcohol abuse -Continue thiamine folate -VAC hands Tobacco abuse -Nicotine patch as needed -Recommend cessation DVT prophylaxis -Subcu heparin Dispo -Plan is for discharge to rehab once has issues with orthostatic hypotension have improved Visit Charges Inpatient E&M: 93405 Subs Hosp L2
[2021-03-27 14:26] VITALS: BP 112/77; BP 115/72; BP 81/54; PULSE 67; PULSE 76
[2021-03-27] MEDS: Sodium Chloride 1 GM Tablet 2 GM PO ×2 (14:39→20:24)
[2021-03-27] MEDS: busPIRone 5 MG Tablet 10 MG PO ×2 (14:39→20:23)
[2021-03-27] MEDS: Heparin Injection (Vial) 5,000 UNIT/ML VIAL 5000 UNIT SC ×2 (14:46→20:24)
[2021-03-27] MEDS: Dicyclomine 10 MG Capsule 20 MG PO (15:29)
--- NOTE | 2021-03-27 17:27 | PCM.PN.REN ---
Objective Data Objective Data Vital Signs: Vital Signs Temp Pulse Resp BP Pulse Ox 98.1 F 67 16 115/72 99 03/27/21 10:26 03/27/21 14:26 03/27/21 10:26 03/27/21 14:26 03/27/21 10:26 Oxygen Delivery Method Room Air Weight: 84.323 kg Body Mass Index (BMI) 24.2 Orthostatic Vital Signs Start: 03/18/21 02:36 Freq: 0600 Status: Active Protocol: Activity Type Activity Date Activity User E-Sign Co-Sign Detail Recorded Client Recorded Date Recorded By Document 03/27/21 14:26 ELLIS [id number] 03/27/21 14:35 ELLIS 03/27/21 14:26 Orthostatic Vitals Standing -Blood Pressure (90/60-120/80) 81/54 L -Extremity Use Left Arm Sitting -Blood Pressure (90/60-120/80) 112/77 -Extremity Use Left Arm -Pulse Rate (60-100) 76 Lying -Blood Pressure (90/60-120/80) 115/72 -Extremity Use Left Arm -Pulse Rate (60-100) 67 Intake & Output: Intake and Output for Last 24 Hours 03/25/21 03/26/21 03/27/21 23:59 23:59 23:59 Intake Total 1000 / 1000 250 / 250 Output Total 50 / 50 Balance -50 / -50 1000 / 1000 250 / 250 Lab / Micro Data Result Diagrams: 03/26/21 05:28 03/27/21 05:26 Labs: Laboratory Results - last 24 hr 03/27/21 05:26 Sodium 124 L Potassium 3.9 Chloride 93 L Carbon Dioxide 22.0 Anion Gap 9 BUN 9 Creatinine 0.48 L Estim Creat Clear Calc 173.39 Est GFR (MDRD) Af Amer 227 Est GFR (MDRD) Non-Af 188 BUN/Creatinine Ratio 18.9 Glucose 95 Calcium 8.7 Micro: Microbiology 03/25/21 15:40 Urine, Random Urine Culture - Preliminary Staphylococcus species Gram negative chris 03/18/21 21:50 Stool Enteric Bacteriology - Final 03/17/21 20:00 Stool C. difficile GDH Antigen & Toxins - Final 03/17/21 20:00 Stool C. difficile DNA Amplification - Final Physical Exam Const alert and no apparent distress General Appearance: comfortable HEENT normocephalic Neck General: normal visual inspection and trachea midline Resp normal respiratory effort and clear to auscultation bilaterally Cardio regular rate, regular rhythm, S1 normal heart sound and S2 normal heart sound GI soft to palpation and non-tender Extremity no clubbing, cyanosis or edema Neuro Sensorium / Orientation: awake and alert Assessment & Plan Assessment/Plan (1) Hyponatremia: PLAN: Sodium is still at 124 mmol/L today. This is low but stable. The patient is not symptomatic. Repeat urine studies on were consistent with SIADH. Urine sodium is almost equal to serum sodium tolvaptan and Benavides not available. Vaptans will be contraindicated since his BP is low off antidepressants already still has postural hypotension. try fluids today (2) C. difficile colitis: PLAN: On p.o. vancomycin per primary. Diarrhea has resolved for now. (3) Benign hypertension: PLAN: has postural hypotension. serum cortisol is ok. kamar Turcios
[2021-03-27] MEDS: MELATONIN 3 MG TABLET PO (20:23)
[2021-03-27] MEDS: Mag Hydrox/Al Hydrox/Simeth 30 ML UDC PO (20:31)
[2021-03-27 20:42] VITALS: BP 119/82; PULSE 101; RESP 16; TEMP 36.7; O2SAT 97
[2021-03-28] MEDS: 0.9% Normal Saline 1,000 ML 75 ML IV ×2 (00:34→13:56)
[2021-03-28 03:06] VITALS: BP 136/78; PULSE 67; RESP 16; TEMP 36.7; O2SAT 97
[2021-03-28] MEDS: Heparin Injection (Vial) 5,000 UNIT/ML VIAL 5000 UNIT SC ×3 (05:49→22:49)
[2021-03-28] MEDS: Sodium Chloride 1 GM Tablet 2 GM PO ×3 (05:50→22:47)
[2021-03-28] MEDS: Mag Hydrox/Al Hydrox/Simeth 30 ML UDC PO (05:56)
[2021-03-28] MEDS: Dicyclomine 10 MG Capsule 20 MG PO ×2 (05:56→12:15)
[2021-03-28] MEDS: busPIRone 5 MG Tablet 10 MG PO ×2 (05:56→14:01)
[2021-03-28 07:22] LABS: Anion Gap 5 (5-15); BUN 9 mg/dL (7-18); BUN/Creat Ratio 18.3 RATIO (10-20); Calcium,Total 8.6 mg/dL (8.5-10.1); Chloride 96 mmol/L (98-107); Creatinine, Serum 0.49 mg/dL (0.70-1.30); EST Glomerular Filtration Rate 181 mL/min (>60); Est Glom Filt Rate - Afr Amer 219 mL/min (>60); Estimated Creatinine Clearance 169.86 ml/min; Glucose 89 mg/dL (74-106); Potassium 3.6 mmol/L (3.5-5.1); Sodium Level 125 mmol/L (136-145)
[2021-03-28 09:17] VITALS: BP 113/69; BP 117/73; PULSE 68; PULSE 80
--- NOTE | 2021-03-28 09:18 | NURSING ---
pt unable to tolerate standing for orthos/machine not reading. pt states he is feeling dizzy when up and gait unsteady/wobbly with use of walker. bp obtained after attempt to stand was 100/60 pulse of 87.
[2021-03-28 09:20] VITALS: BP 113/69; PULSE 68; RESP 18; TEMP 36.6; O2SAT 96
[2021-03-28] MEDS: Midodrine HCl 5 MG Tablet 10 MG PO ×3 (09:24→17:10)
[2021-03-28 09:25] VITALS: PULSE 68
[2021-03-28] MEDS: Folic Acid 1 MG Tablet PO (09:25)
[2021-03-28] MEDS: Metoprolol(XL)Succ 25 MG Tablet PO (09:25)
[2021-03-28] MEDS: Thiamine Hydrochloride 100 MG Tablet PO (09:26)
[2021-03-28] MEDS: Calcium Carb/Vitamin D 1 TABLET Tablet PO (09:26)
[2021-03-28] MEDS: Magnesium Chloride 64 MG Delay Rel.Tablet 128 MG PO ×2 (09:26→22:48)
[2021-03-28] MEDS: DULoxetine Hcl 60 MG Capsule PO (09:26)
[2021-03-28] MEDS: Fludrocortisone Acetate 0.1 MG Tablet PO (09:26)
[2021-03-28] MEDS: Clopidogrel Bisulfate 75 MG Tablet PO (09:26)
[2021-03-28] MEDS: Nystatin Powder 15gm Bottle 1 APPLIC TOPICAL ×2 (09:27→22:49)
[2021-03-28] MEDS: Menthol/Lanolin/Calamine/Znox 113 GM Tube 1 APPLIC TOPICAL ×2 (09:27→22:48)
[2021-03-28] MEDS: Amiodarone 200 MG Tablet PO ×2 (09:27→22:49)
[2021-03-28] MEDS: Aspirin E.C. 81 MG Tablet PO (09:27)
--- NOTE | 2021-03-28 10:16 | CASEMGMT ---
Social Work Note Pt is still not medically ready for discharge yet. ROLANDO placed a call to Amanda with [facility] and updated her. Plan: [facility] when medically cleared Geno Dominguez RUBBER AND POUNDER, GLAZIER APPRENTICE
[2021-03-28] MEDS: Ondansetron 4 MG/2 ML Vial IV (12:19)
[2021-03-28] MEDS: 0.9% Saline Lock 10 ML Syringe IV (12:20)
[2021-03-28 14:11] VITALS: BP 110/69; BP 119/64; BP 85/54; PULSE 67; PULSE 74; PULSE 86; RESP 18; TEMP 36.4; O2SAT 96
--- NOTE | 2021-03-28 15:12 | PN.HOSP_ITS ---
Subjective Subjective Patient reports that he still having some lightheadedness with positional changes. It also seems that he has some intermittent dizziness which sounds like true vertigo and is most likely not related to orthostasis. He had decreased stool production with only 3 bowel movements in the last 24 hours. His sodium was somewhat improved at 125 this morning. Objective Data Objective Data Vital Signs: Vital Signs Temp Pulse Resp BP Pulse Ox 97.6 F L 67 18 119/64 96 03/28/21 14:11 03/28/21 14:11 03/28/21 14:11 03/28/21 14:11 03/28/21 14:11 Oxygen Delivery Method Room Air Weight: 84.867 kg Body Mass Index (BMI) 24.2 Orthostatic Vital Signs Start: 03/18/21 02:36 Freq: Status: Active Protocol: Activity Type Activity Date Activity User E-Sign Co-Sign Detail Recorded Client Recorded Date Recorded By Document 03/28/21 14:11 [facility] [id number] 03/28/21 14:11 MATTHEW 03/28/21 14:11 Orthostatic Vitals Standing -Blood Pressure (90/60-120/80) 85/54 L -Extremity Use Left Arm -Pulse Rate (60-100) 86 Sitting -Blood Pressure (90/60-120/80) 110/69 -Extremity Use Left Arm -Pulse Rate (60-100) 74 Lying -Blood Pressure (90/60-120/80) 119/64 -Extremity Use Left Arm -Pulse Rate (60-100) 67 Intake & Output: Intake and Output for Last 24 Hours 03/26/21 03/27/21 03/28/21 23:59 23:59 23:59 Intake Total 1000 / 1000 250 / 250 2170 / 2170 Balance 1000 / 1000 250 / 250 2170 / 2170 Lab / Micro Data Result Diagrams: 03/26/21 05:28 03/28/21 06:14 Labs: Laboratory Results - last 24 hr 03/28/21 06:14 Sodium 125 L Potassium 3.6 Chloride 96 L Carbon Dioxide 24.0 Anion Gap 5 BUN 9 Creatinine 0.49 L Estim Creat Clear Calc 169.86 Est GFR (MDRD) Af Amer 219 Est GFR (MDRD) Non-Af 181 BUN/Creatinine Ratio 18.3 Glucose 89 Calcium 8.6 Micro: Microbiology 03/25/21 15:40 Urine, Random Urine Culture - Preliminary Staphylococcus species Klebsiella pneumoniae sp pneum 03/18/21 21:50 Stool Enteric Bacteriology - Final 03/17/21 20:00 Stool C. difficile GDH Antigen & Toxins - Final 03/17/21 20:00 Stool C. difficile DNA Amplification - Final Physical Exam Const alert, oriented x3, no apparent distress and well nourished Constitutional Narrative: Upper middle-aged white male lying in bed, nursing and a sima at bedside, patient is getting cleaned up and orthostatic vitals were just completed, appears comfortable, patient is lying flat currently and is complaining of some mild lightheadedness which is improving Exam Limitations: no limitations HEENT head/scalp atraumatic, moist oral mucous membranes and oropharynx normal Eyes PERRL, EOMs intact bilaterally and conjunctivae normal Neck supple Neck Narrative: Trachea midline Resp normal respiratory effort, no retractions, no use of accessory muscles and clear to auscultation bilaterally Resp Narrative: Diffusely diminished but clear Cardio regular rate, regular rhythm, S1 normal heart sound, S2 normal heart sound, no gallops and no clicks GI normal to inspection, nondistended, normoactive bowel sounds, soft to palpation, non-tender and non-distended Extremity normal to inspection, full ROM and no clubbing, cyanosis or edema Skin no rashes or lesions noted, skin turgor normal, no jaundice, no petechiae and no mottling Skin Narrative: Pale skin Neuro oriented x3, CN's II-XII intact bilaterally, moves all extremities, no focal motor deficits and no sensory deficits noted Neuro Narrative: Patient appears to have some generalized weakness Sensorium / Orientation: awake, alert, oriented to person, oriented to place and oriented to time Speech: speech normal Psych Psych Narrative: Calm with less agitation today Assessment & Plan Assessment/Plan (1) C. difficile colitis: (2) Physical debility: (3) Hyponatremia: (4) Syndrome of inappropriate ADH (SIADH) secretion: PLAN: Physical deconditioning with recurrent falls -Continue PT and OT -Patient has recent fall with resultant left hemiarthroplasty -Plan is for rehab discharge once orthostasis improves Orthostatic hypotension -Orthostatic vitals this morning were much worse than they were yesterday despite changes in medications -Will repeat this afternoon after the initiation of PARMINDER hose and some IV fluids -Continue thigh-high PARMINDER hose -Continue gentle hydration -TSH and random cortisol level were within normal limits -Discontinue metoprolol -Consult cardiology--> patient follows with Dr. Glynn -Continue Florinef -Continue midodrine -Patient recently had an echocardiogram done on 11/15/2020 which showed an EF of 45%, global hypokinesis and no valvular abnormalities--> do not think there is any benefit in repeating his echocardiogram at this time -We will stop Cymbalta and BuSpar as both of these medications are known to cause hyponatremia and potentially orthostatic hypotension C. difficile associated diarrhea -Continue p.o. vancomycin -We will need a 14-day course -This was started on 03/19/2021--> day 9 of 14 -Diarrhea has almost resolved at this time--> 3 BM in last 24 hrs Hyponatremia secondary to SIADH -Vaptans contraindicated secondary to hypotension -Avoid SSRIs/SNRIs -Florinef -Gentle hydration per discussion with nephrology-->NS @75cc/hr -Continue salt tablets--> dose was increased by nephrology -Repeat BMP in a.m. -Stop Cymbalta and BuSpar History of hypertension -Patient remains on beta-lilliana secondary to history of ventricular tachycardia but dose has been reduced -Patient is currently having issues with postural hypotension Transaminitis secondary to chronic alcohol use CAD/HFrEF-compensated -Ejection fraction is 45% -We will discontinue metoprolol at this point secondary to persistent hypoten fabiano -Continue aspirin/Plavix History of ventricular tachycardia -AICD in place -Hold metoprolol given persistent hypotension -No issues this hospitalization -Continue amiodarone--> question decreased from 200 mg twice daily to 200 mg daily -Await cardiology input Chronic alcohol abuse -Continue thiamine folate Tobacco abuse -Nicotine patch as needed -Recommend cessation DVT prophylaxis -Subcu heparin Dispo -Plan is for discharge to rehab once has issues with orthostatic hypotension have improved Visit Charges Inpatient E&M: 11481 Subs Hosp L2
--- NOTE | 2021-03-28 16:22 | PN.RENAL_ITS ---
Subjective Subjective no new complaints Objective Data Objective Data Vital Signs: Vital Signs Temp Pulse Resp BP Pulse Ox 97.6 F L 67 18 119/64 96 03/28/21 14:11 03/28/21 14:11 03/28/21 14:11 03/28/21 14:11 03/28/21 14:11 Oxygen Delivery Method Room Air Weight: 84.867 kg Body Mass Index (BMI) 24.2 Orthostatic Vital Signs Start: 03/18/21 02:36 Freq: Status: Active Protocol: Activity Type Activity Date Activity User E-Sign Co-Sign Detail Recorded Client Recorded Date Recorded By Document 03/28/21 14:11 MATTHEW [id number] 03/28/21 14:11 MATTHEW 03/28/21 14:11 Orthostatic Vitals Standing -Blood Pressure (90/60-120/80) 85/54 L -Extremity Use Left Arm -Pulse Rate (60-100) 86 Sitting -Blood Pressure (90/60-120/80) 110/69 -Extremity Use Left Arm -Pulse Rate (60-100) 74 Lying -Blood Pressure (90/60-120/80) 119/64 -Extremity Use Left Arm -Pulse Rate (60-100) 67 Intake & Output: Intake and Output for Last 24 Hours 03/26/21 03/27/21 03/28/21 23:59 23:59 23:59 Intake Total 1000 / 1000 250 / 250 2170 / 2170 Balance 1000 / 1000 250 / 250 2170 / 2170 Lab / Micro Data Result Diagrams: 03/26/21 05:28 03/28/21 06:14 Labs: Laboratory Results - last 24 hr 03/28/21 06:14 Sodium 125 L Potassium 3.6 Chloride 96 L Carbon Dioxide 24.0 Anion Gap 5 BUN 9 Creatinine 0.49 L Estim Creat Clear Calc 169.86 Est GFR (MDRD) Af Amer 219 Est GFR (MDRD) Non-Af 181 BUN/Creatinine Ratio 18.3 Glucose 89 Calcium 8.6 Micro: Microbiology 03/25/21 15:40 Urine, Random Urine Culture - Preliminary Staphylococcus species Klebsiella pneumoniae sp pneum 03/18/21 21:50 Stool Enteric Bacteriology - Final 03/17/21 20:00 Stool C. difficile GDH Antigen & Toxins - Final 03/17/21 20:00 Stool C. difficile DNA Amplification - Final Physical Exam Const alert and no apparent distress General Appearance: comfortable HEENT normocephalic Neck General: normal visual inspection and trachea midline Resp normal respiratory effort and clear to auscultation bilaterally Cardio regular rate, regular rhythm, S1 normal heart sound and S2 normal heart sound GI soft to palpation and non-tender Extremity no clubbing, cyanosis or edema Neuro Sensorium / Orientation: awake and alert Assessment & Plan Assessment/Plan (1) Hyponatremia: PLAN: Sodium is still at 125 mmol/L today. This is low but stable. The p atient is not symptomatic. Repeat urine studies on were consistent with SIADH. Urine sodium is almost equal to serum sodium tolvaptan and Benavides not available. Vaptans will be contraindicated since his BP is low still has postural hypotension. continue fluids today (2) C. difficile colitis: PLAN: On p.o. vancomycin per primary. Diarrhea has resolved for now. (3) Benign hypertension: PLAN: has postural hypotension. serum cortisol is ok. kamar Turcios
--- NOTE | 2021-03-28 17:14 | ECHOCS_ITS ---
Reason For Study: CAD Procedure This was a 2D Doppler, Color Flow transthoracic echocardiogram. Contrast injection was performed. The study was technically difficult. Exam performed portable in patient room. Left Ventricle Mildly dilated left ventricle. The estimated ejection fraction is 30 %. There is moderate to severe global hypokinesis of the left ventricle. Right Ventricle Normal RV size. ICD or pacer leads identified within the right ventricle. Normal systolic function. Atria Normal left atrium. Normal right atrium. Mitral Valve Normal mitral valve. Tricuspid Valve Normal tricuspid valve. Aortic Valve Normal aortic valve. Pulmonic Valve The pulmonic valve is not well visualized. Great Vessels Normal aortic root. Pericardium/Pleural No pericardial effusion. Medication Diluted definity 4ml given slow IV push to enhance endocardial definition. MMode/2D Measurements & Calculations LVIDd: 4.7 cm IVSd: 1.1 cm Ao root diam: 3.4 cm LVIDs: 4.0 cm LVPWd: 1.1 cm RVDd: 4.1 cm FS: 15.3 % LAV(MOD-bp): 85.7 ml LVAd ap4: 44.0 cm2 LVAd ap2: 43.3 cm2 LAV(MOD-bp) Indexed: 41.1 ml/m2 LVLd ap4: 9.1 cm LVLd ap2: 9.8 cm LAV(MOD-sp2): 81.7 ml EDV(MOD-sp4): 173.7 ml EDV(MOD-sp2): 165.7 ml LAV(MOD-sp4): 79.4 ml EDV(sp4-el): 180.2 ml EDV(sp2-el): 161.9 ml LVAs ap4: 35.2 cm2 LVAs ap2: 34.7 cm2 LVLs ap4: 8.3 cm LVLs ap2: 8.6 cm ESV(MOD-sp4): 126.0 ml ESV(MOD-sp2): 119.6 ml ESV(sp4-el): 127.1 ml ESV(sp2-el): 118.8 ml EF(MOD-sp4): 27.5 % EF(MOD-sp2): 27.8 % EF(sp4-el): 29.5 % SV(MOD-sp4): 47.7 ml SV(MOD-sp2): 46.0 ml SV(sp4-el): 53.1 ml LA A4 area: 24.5 cm2 LA dimension(2D): 4.0 cm RA A4 area: 20.1 cm2 Time Measurements MV dec time: 0.19 sec Doppler Measurements & Calculations MV E max mazin: 59.3 cm/sec Lat Peak E' Mazin: 5.7 cm/sec Med Peak E' Mazin: 3.9 cm/sec MV A max mazin: 94.5 cm/sec E/E' lat: 10.4 E/E' med: 15.3 MV E/A: 0.63 Ao V2 max: 113.9 cm/sec LV V1 max: 83.1 cm/sec PA V2 max: 83.6 cm/sec Ao max P.2 mmHg LV V1 max P.8 mmHg ECHO/Echo Complete W/ Contrast Interpretation Summary Mildly dilated left ventricle. The estimated ejection fraction is 30 %. There is moderate to severe global hypokinesis of the left ventricle. ICD or pacer leads identified within the right ventricle. Contrast injection was performed. Ordering Physician: Gautam Arellano Referring Physician: ELINA TORRESBUKeya Performed By: Samara Monreal, OMER, RVT
--- NOTE | 2021-03-28 17:15 | CON.PCM.CA_ITS ---
Assessment & Plan Assessment/Plan (1) Atherosclerotic heart disease of [place] coronary artery without angina pectoris: QUALIFIERS: [place] vs. transplanted heart: [place] heart Qualified Code(s): I25.10 - Atherosclerotic heart disease of [place] coronary artery w [facility] angina pectoris PLAN: The patient has a history of CAD. He has undergone revascularization therapy in the past. At the present time he does not appear to have ongoing symptoms of acute coronary syndrome. He should continue risk factor evaluation care as tolerated based upon his other comorbidities, etc. (2) History of coronary artery stent placement: PLAN: The patient has a history of previous PCI's. He has been reassessed noninvasively and invasively as noted above. At the moment he appears to have no ongoing acute coronary related symptoms. He should continue medical therapy as tolerated. (3) Ischemic cardiomyopathy: PLAN: The patient has a history of an underlying ischemic mediated cardiomyopathy. He does not appear to have any evidence at the moment of ongoing acute CHF. He has been treated medically for this. At the moment his medications are being adjusted based upon concerns of his hypotension. He unreasonable to repeat an echocardiogram to evaluate for any significant change/decline in his overall LV systolic function contribute to any of his symptoms, etc. (4) Ventricular tachycardia: PLAN: The patient has a history of VT storm. He has been treated medically with antiarrhythmic therapy as well as having an ICD in place. (5) Presence of automatic (implantable) cardiac defibrillator: PLAN: The patient does have an ICD in place. His most recent interrogation was in January of this year at which time his ICD appeared to be functioning appropriately. It may not be unreasonable to reassess his ICD in light of his ongoing symptoms to evaluate for any other obvious cardiac dysrhythmias that may be detected to assist in his diagnosis and care. (6) Hyperlipidemia: QUALIFIERS: Hyperlipidemia type: unspecified Qualified Code(s): E78.5 - Hyperlipidemia, unspecified PLAN: The patient should continue risk factor evaluation and care. (7) Benign hypertension: PLAN: The patient has a history of hypertension. At the present time he is hypotensive. Thus medications to lower his blood pressure been placed on hold. (8) Hyponatremia: PLAN: The patient has been found to have hyponatremia. He has been evaluated by internal medicine. He has been receiving medical therapy for such which has included increased sodium intake. He will continue evaluation care per internal medicine. (9) Orthostatic hypotension: PLAN: The patient continues with orthostatic changes. He has been receiving and tolerating IV fluids thus far. He has been placed on additional medication to assist with blood pressure such as fludrocortisone and midodrine. The doses of these medicine occasions can be advanced as tolerated. Other medications that may have a negative effect on his blood pressure have been removed. If he continues with orthostatic changes and symptoms concerning for vertigo that he may need to be further evaluated by neurology for any other additional input that may assist in his ongoing evaluation and care. (10) History of alcoholism: PLAN: He states he is refraining from alcohol intake. Addt'l Comments The above was discussed and reviewed with the patient. HPI Consult Data Date of Consult: 03/28/21 HPI Narrative HPI Narrative: FRANCIS MORTON, is a 66 white male who presents for cardiovascular consultation based upon concerns of orthostasis with associated dizziness and vertigo superimposed upon a history of underlying CAD, PCI, ischemic mediated cardiomyopathy, VT storm, status post ICD placement, hyperlipidemia, hypertension, and a history of alcohol use. The patient was admitted on 03-17-2021 status post a fall and inability to ambulate. He has been hospitalized since that time. At that time it appeared he was found to be hyponatremic with a sodium level of 120. He has been evaluated and cared for by internal medicine. Over time his sodium level has recuperated to as high as 130 but has declined to 125. During this time the patient has complained of symptoms of positional dizziness and vertigo. Orthostatic blood pressures have been obtained which have been reported as positive. He has been treated by withdrawing medications that would lower his blood pressure and adding medications to assist in maintaining his blood pressure such as fludrocortisone and midodrine. However, he continues with his orthostatic changes and associated symptoms. During his hospitalization there is been no report of symptoms of angina pectoris. He has had no episodes of obvious acute CHF or pulmonary edema. There is been no ongoing lower extremity peripheral pitting edema. He states he has not noted any obvious palpitations and there is been no report of syncope. He had an ECG on admission. He was in sinus rhythm with the appearance of a nonspecific IVCD. It does not appear he is undergone any further cardiovascular evaluation. [facility] Medical History Atherosclerotic heart disease of [place] coronary artery without angina pectoris Benign hypertension Cellulitis and abscess of upper extremity Declining functional status Dehydration Dyspnea History of alcoholism History of echocardiogram (04/03/17) History of stress test (02/16/10) Hyperlipidemia Ischemic cardiomyopathy Premature heartbeats Stage 1 mild COPD by GOLD classification Tobacco user Urinary tract infection Ventricular tachycardia Home Medications nitroglycerin 0.4 mg sublingual tablet 0.4 mg SUBLINGUAL Q5M PRN #25 tab 05/08/18 [Rx Last Taken Unknown] etpketqw-fru-MW-lycopen-lutein 1 ea PO QODAY 12/13/19 [History Last Taken 11/13/20] aspirin 81 mg tablet,delayed release 81 mg PO DAILY #90 tab 01/04/20 [Rx Last Taken 11/14/20 09:00] amiodarone 200 mg tablet 200 mg PO BID #180 tab 06/15/20 [Rx Last Taken 11/14/20 17:30] clopidogrel 75 mg tablet 75 mg PO DAILY 09/15/20 [History Last Taken 11/14/20 17:30] buspirone 10 mg tablet 10 mg PO TID 10/03/20 [History Last Taken 11/14/20 17:30] metoprolol succinate 100 mg PO DAILY 11/22/20 [History Last Taken Unknown] acetaminophen 1,000 mg PO Q8H PRN PRN tab 11/29/20 [Rx Last Taken Unknown] duloxetine 60 mg PO DAILY #30 cap 11/29/20 [Rx Last Taken Unknown] calcium carbonate-vitamin D3 1 tablet PO DAILY 03/17/21 [History Last Taken Unknown] Allergy/AdvReac Type Severity Reaction Status Date / Time Iodine and Iodide Containing Allergy Severe Rash Verified 11/15/20 03:28 Produc ezetimibe [From Zetia] AdvReac Severe Myalgias Verified 11/15/20 03:28 Tigvycg-Qrx-Mxt Reductase AdvReac Severe Elevated Verified 11/15/20 03:28 Inhibitor Liver Enzymes Family History Grandmother Myocardial infarction Grandfather Myocardial infarction Surgical History History of coronary artery stent placement (04/17/19) History of left heart catheterization (LHC) (01/21/19) Hx of knee surgery Presence of automatic (implantable) cardiac defibrillator (10/31/17) Social History Smoking Status: Current every day smoker how long ago did patient quit smokin11/2017 alcohol intake: current alcohol intake frequency: a few times a week Alcohol type: beer substance use type: does not use caffeine: No what type of physical activity do you participate in: bicycling frequency: 1-2 times per week duration: < 15 minutes/day seatbelt use: always do you feel safe at home: Yes ROS Constitutional Constitutional: Reports weakness Eyes Eyes: Reports as per HPI ENT HEENT: Reports as per HPI Cardiovascular Cardiovascular: Reports as per HPI Respiratory/Chest Respiratory/Chest: Reports as per HPI Gastrointestinal Gastrointestinal: Reports as per HPI Genitourinary Genitourinary: Reports as per HPI Musculoskeletal Musculoskeletal: Reports as per HPI Integumentary Integumentary: Reports as per HPI Neurologic Neurologic: Reports dizziness and vertigo Physical Exam Const alert and oriented x3 Orientation / Consciousness: awake HEENT normocephalic, head/scalp atraumatic and hearing grossly normal bilaterally Eyes PERRL, EOMs intact bilaterally, conjunctivae normal and no scleral icterus Neck full ROM and supple Chest inspection of chest normal Resp normal respiratory effort and clear to auscultation bilaterally Cardio regular rate, regular rhythm, S1 normal heart sound and S2 normal heart sound GI normal to inspection, nondistended, normoactive bowel sounds Extremity no pedal edema Skin General Skin Exam: ecchymosis Neuro oriented x3 and moves all extremities Psych mental status grossly normal Procedure Criteria Type of Procedure Procedure Type: Elective Elective Risks - COVID COVID Risk Discussion: The surgeon/proceduralist and patient have discussed in detail the risk of exposure to and/or potential harm posed by the COVID-19 virus with having a surgery/procedure at this time versus the risk of delaying the surgery/procedure. It is not possible to know either the risk of delaying the surgery or procedure or chance of getting an infection with perfect accuracy, but a joint decision was made between the patient and the surgeon/proceduralist to proceed at this time with the scheduled surgery/procedure as indicated on the consent form.
[2021-03-28] MEDS: proMETHazine 25 MG/ML Syringe IM (17:18)
[2021-03-28] MEDS: MELATONIN 3 MG TABLET PO (22:49)
[2021-03-28 22:50] VITALS: BP 122/69; PULSE 66; RESP 16; TEMP 36.6; O2SAT 97
[2021-03-29] MEDS: 0.9% Normal Saline 1,000 ML 75 ML IV (02:14)
[2021-03-29 02:17] VITALS: BP 118/65; PULSE 67; RESP 16; TEMP 36.6; O2SAT 95
[2021-03-29] MEDS: Sodium Chloride 1 GM Tablet 2 GM PO (05:19)
[2021-03-29] MEDS: Heparin Injection (Vial) 5,000 UNIT/ML VIAL 5000 UNIT SC (05:20)
[2021-03-29 05:54] LABS: Anion Gap 6 (5-15); BUN 8 mg/dL (7-18); BUN/Creat Ratio 16.5 RATIO (10-20); Calcium,Total 8.4 mg/dL (8.5-10.1); Chloride 100 mmol/L (98-107); Creatinine, Serum 0.49 mg/dL (0.70-1.30); EST Glomerular Filtration Rate 183 mL/min (>60); Est Glom Filt Rate - Afr Amer 222 mL/min (>60); Estimated Creatinine Clearance 169.86 ml/min; Glucose 97 mg/dL (74-106); Potassium 3.8 mmol/L (3.5-5.1); Sodium Level 132 mmol/L (136-145)
[2021-03-29 08:51] VITALS: BP 140/82; PULSE 81; RESP 18; TEMP 37.1; O2SAT 95
[2021-03-29 08:58] VITALS: BP 125/77; BP 140/82; BP 145/86; PULSE 118; PULSE 81; PULSE 95
--- NOTE | 2021-03-29 09:10 | NURSING ---
pt states a little lightheaded gait much steadier than yesterday, pt able to ambulate into bathroom with use of walker, voided and had small bm.
[2021-03-29] MEDS: Clopidogrel Bisulfate 75 MG Tablet PO (09:17)
[2021-03-29] MEDS: Thiamine Hydrochloride 100 MG Tablet PO (09:17)
[2021-03-29] MEDS: Midodrine HCl 5 MG Tablet 10 MG PO ×2 (09:17→11:47)
[2021-03-29] MEDS: Aspirin E.C. 81 MG Tablet PO (09:17)
[2021-03-29] MEDS: Calcium Carb/Vitamin D 1 TABLET Tablet PO (09:17)
[2021-03-29] MEDS: Magnesium Chloride 64 MG Delay Rel.Tablet 128 MG PO (09:18)
[2021-03-29] MEDS: Nystatin Powder 15gm Bottle 1 APPLIC TOPICAL (09:18)
[2021-03-29] MEDS: Amiodarone 200 MG Tablet PO (09:18)
[2021-03-29] MEDS: Menthol/Lanolin/Calamine/Znox 113 GM Tube 1 APPLIC TOPICAL (09:18)
[2021-03-29] MEDS: Fludrocortisone Acetate 0.1 MG Tablet PO (09:19)
[2021-03-29] MEDS: Folic Acid 1 MG Tablet PO (09:19)
--- NOTE | 2021-03-29 09:47 | CASEMGMT ---
Social Work Note Pt may be medically ready for discharge today. ROLANDO placed a call to Amanda with [facility] and updated her. Plan: RU when medically cleared Geno Dominguez LOGISTICS ADMINISTRATOR, [employer]
--- NOTE | 2021-03-29 10:50 | PCM.DC.SUM ---
Providers Date of Admission: 03/17/21 Primary Care Physician: Dr. Shay Del Rosario III, MD Consultations 03/17/21 21:57 Consult: Onc/Wound/neurodiagnostic technologist Routine Comment: Reason for Consult:: open areas to coccyx from home. 03/18/21 15:21 Consult: Nephrology Routine Consulting Provider: Tom Alegria Reason for Consult: Hyponatremia EMERGENT Consult: No MD Notified: Yes Date Notified:: 03/18/21 Time Notified: 15:50 Method of Notification: Answering Service 03/28/21 15:21 Consult: Cardiology Routine Consulting Provider: Gautam Arellano Reason for Consult: persistent orthostatic hypotension EMERGENT Consult: No MD Notified: Yes Date Notified:: 03/28/21 Time Notified: 16:30 Method of Notification: paged via bushing press operator Comments:: pt follows with Dr. Glynn Reason For Visit: ACUTE HYPONATREMIA Diagnosis Discharge Diagnosis (1) Atherosclerotic heart disease of [place] coronary artery without angina pectoris: Status: Chronic Code(s): I25.10 - Atherosclerotic heart disease of [place] coronary artery without angina pectoris Qualifiers: [place] vs. transplanted heart: [place] heart Qualified Code(s): I25.10 - Atherosclerotic heart disease of [place] coronary artery without angina pectoris (2) History of coronary artery stent placement: Status: Chronic Code(s): Z95.5 - Presence of coronary angioplasty implant and graft (3) Ischemic cardiomyopathy: Status: Chronic Code(s): I25.5 - Ischemic cardiomyopathy (4) Ventricular tachycardia: Status: Chronic Code(s): I47.2 - Ventricular tachycardia (5) Presence of automatic (implantable) cardiac defibrillator: Status: Chronic Code(s): Z95.810 - Presence of automatic (implantable) cardiac defibrillator (6) Hyperlipidemia: Status: Chronic Code(s): E78.5 - Hyperlipidemia, unspecified Qualifiers: Hyperlipidemia type: unspecified Qualified Code(s): E78.5 - Hyperlipidemia, unspecified (7) Benign hypertension: Status: Chronic Code(s): I10 - Essential (primary) hypertension (8) Hyponatremia: Status: Acute Code(s): E87.1 - Hypo-osmolality and hyponatremia (9) Orthostatic hypotension: Status: Acute Code(s): I95.1 - Orthostatic hypotension (10) History of alcoholism: Status: Chronic Code(s): F10.21 - Alcohol dependence, in remission Medications at Discharge Home Medications nitroglycerin 0.4 mg sublingual tablet 0.4 mg SUBLINGUAL Q5M PRN #25 tab 05/08/18 hehyfxxy-xes-CN-lycopen-lutein 1 ea PO QODAY 12/13/19 aspirin 81 mg tablet,delayed release 81 mg PO DAILY #90 tab 01/04/20 amiodarone 200 mg tablet 200 mg PO BID #180 tab 06/15/20 clopidogrel 75 mg tablet 75 mg PO DAILY 09/15/20 acetaminophen 1,000 mg PO Q8H PRN PRN tab 11/29/20 calcium carbonate-vitamin D3 1 tablet PO DAILY 03/17/21 acidophilus-pectin, citrus 2 tab PO TID #0 tab 03/29/21 alum-mag hydroxide-simeth [Mag-Al Plus Extra Strength] 30 ml PO Q6H PRN PRN #3000 ml 03/29/21 food supplemt, lactose-reduced [Ensure Enlive] 60 ml PO 4X/DAY #0 ml 03/29/21 heparin (porcine) 5,000 unit SUBCUT Q8 #0 ml 03/29/21 magnesium chloride [Mag 64] 128 mg PO BID #0 tab 03/29/21 melatonin 3 mg PO QHS #30 tab 03/29/21 menthol-zinc oxide [Calmoseptine] 1 applic TOPICAL BID #71 g 03/29/21 nystatin [Nyamyc] 1 applic TOPICAL BID #0 g 03/29/21 vancomycin [Firvanq] 125 mg PO Q6 #0 ml 03/29/21 Hospital Course Operations None Procedures 2-D Echocardiogram Summary of Care Provided Minutes Spent on Discharge: 43 Hospital Course: Mr. Paulino is a 66-year-old male who presented to the emergency department at [facility] on 03/17/2021 with the inability to walk after a fall. On admission he reported that he fell 3 days prior to admission and had not been able to move around because his knees hurt so much. He had complained that he had been experiencing progressive weakness for about a week prior to admission and reported that he felt lightheaded. He admits to drinking alcohol but his last drink was approximately 6 days prior to admission. On admission he was noted to be acutely hyponatremic with a sodium of 120. His TSH and cortisol levels were normal. His serum studies and urine studies were consistent with SIADH and nephrology was consulted. A urinalysis was performed and showed staph ornery and Klebsiella pneumonia but neither colony counts were significant enough to consider UTI as a diagnosis. He complained of diarrhea at admission and a C. difficile obtained and was found to be antigen positive but toxin negative. He was initiated on vancomycin on the although I suspect that he is likely a colonized carrier and this not be indicative of an acute infection. He is not currently having any diarrhea. He has 3 more days to complete a total 14-day course for vancomycin oral. A stool enteric panel was performed and was negative. He was also found to have markedly positive orthostatic vitals which continued to be an issue and a barrier to discharge. He was evaluated by nephrology due to his persistent orthostasis and hyponatremia. He was placed on salt tablets, a fluid restriction, and Florinef without any significant improvement. His metoprolol was also held. After close review of his hospital medications on 03/28/2021 I noted he was currently on Cymbalta and BuSpar both of which can cause hyponatremia secondary to SIADH and orthostatic hypotension. These medications were discontinued. On the a.m. of 03/29/2021 his sodium had improved from 125-131 and his orthostatic hypotension had improved dramatically. Orthostatic vitals on day of discharge were as follows lying blood pressure 140/82, sitting blood pressure 145/86 and standing blood pressure 125/77. Patient was only very mildly symptomatic with the transition from sitting to standing. His heart rates correlated well with a pulse of 81 with lying, 95 was sitting, and 118 was standing. If his blood pressures remain improved I would recommend restarting his metoprolol. His home dose was 100 mg daily of metoprolol succinate. I would repeat daily BMPs for the next few days to make sure that this remains stable. Cardiology did evaluate the patient during his hospitalization and a repeat echocardiogram was performed on the day of discharge. He had a recent echo done in November of this year and we will compare this at discharge but given that his symptoms are so dramatically better I do not think we need to continue to keep him in the acute care hospital until the results are obtained. And again we reiterated with the patient that discontinuing his utilization of alcohol at home would be quite beneficial. Both BuSpar and Cymbalta were placed as allergies due to orthostasis and hyponatremia. He was discharged to rehab in stable condition. Discharge diagnoses Orthostatic hypotension Hyponatremia secondary to SIADH CDAD Recurrent falls Debility CAD Hypertension Hyperlipidemia HFrEF secondary to ischemic cardiomyopathy-compensated COPD-stage I per Gold classification History of ventricular tachycardia History of alcohol abuse History of tobacco abuse Physical Exam Const alert, oriented x3, no apparent distress and well nourished Constitutional Narrative: Upper middle-aged white male lying in bed, appears comfortable, nontoxic General Appearance: cooperative, comfortable and well developed Exam Limitations: no limitations HEENT normocephalic, head/scalp atraumatic, moist oral mucous membranes and oropharynx normal Eyes PERRL, EOMs intact bilaterally and conjunctivae normal Neck no lymphadenopathy, supple and no JVD Neck Narrative: Trachea midline Resp normal respiratory effort, no retractions, no use of accessory muscles and clear to auscultation bilaterally Resp Narrative: Diffusely diminished but clear Cardio regular rate, regular rhythm, S1 normal heart sound, S2 normal heart sound, no gallops and no clicks GI normal to inspection, nondistended, normoactive bowel sounds, soft to palpation, non-tender and non-distended Extremity normal to inspection, full ROM and no clubbing, cyanosis or edema Skin no rashes or lesions noted, skin turgor normal, no jaundice, no petechiae and no mottling Skin Narrative: Pale skin Neuro oriented x3, CN's II-XII intact bilaterally, moves all extremities, no focal motor deficits and no sensory deficits noted Neuro Narrative: Patient appears to have some generalized weakness Sensorium / Orientation: awake, alert, oriented to person, oriented to place and oriented to time Speech: speech normal Psych Psych Narrative: Calm and appreciative of care ABG / Lab / Microbiology Data Result Diagrams: 03/26/21 05:28 03/29/21 05:21 Laboratory: Laboratory Results - last 24 hr 03/29/21 05:21 Sodium 132 L Potassium 3.8 Chloride 100 Carbon Dioxide 26.0 Anion Gap 6 BUN 8 Creatinine 0.49 L Estim Creat Clear Calc 169.86 Est GFR (MDRD) Af Amer 222 Est GFR (MDRD) Non-Af 183 BUN/Creatinine Ratio 16.5 Glucose 97 Calcium 8.4 L Microbiology: Microbiology 03/25/21 15:40 Urine Culture - Final Urine, Random Staphylococcus warneri Klebsiella pneumoniae sp pneum Microbiology 03/25/21 15:40 Urine, Random Urine Culture - Final Staphylococcus warneri Klebsiella pneumoniae sp pneum 03/18/21 21:50 Stool Enteric Bacteriology - Final 03/17/21 20:00 Stool C. difficile GDH Antigen & Toxins - Final 03/17/21 20:00 Stool C. difficile DNA Amplification - Final D/C Instructions Discharge Diet: Low fat / Low cholesterol Discharge Activity: Return to Normal Activity Meaningful Use Info Meaningful Use Diagnoses (Choose all that apply): None applicable Discharge Plan Admission Admit Date/Time: 03/17/21 10:24 Primary Reason for Your Visit: Hyponatremia/Orthostasis Attending Provider: Danita Turcios Primary Care Provider: Shay Del Rosario III Consulting Providers: Tom Alegria ; Gautam Arellano Discharge Orders/Prescriptions Prescriptions: New melatonin 3 mg Tablet 3 mg PO QHS Qty: 30 RF: 0 nystatin [Nyamyc] 100,000 unit/gram Powder 1 applic topical BID Qty: 0 RF: 0 heparin (porcine) 5,000 unit/mL Solution 5,000 unit subcut Q8 Qty: 0 RF: 0 alum-mag hydroxide-simeth [Mag-Al Plus Extra Strength] 400-400-40 mg/5 mL Suspension 30 ml PO Q6H PRN PRN (Reason: DYSPEPSIA/INDIGESTION) Qty: 3000 RF: 0 acidophilus-pectin, citrus 25 million cell -100 mg Tablet 2 tab PO TID Qty: 0 RF: 0 magnesium chloride [Mag 64] 64 mg Tablet,Delayed Release (Dr/Ec) 128 mg PO BID Qty: 0 RF: 0 Calmoseptine 0.44-20.6 % Ointment 1 applic topical BID Qty: 71 RF: 0 Ensure Enlive 0.08 gram-1.5 kcal/mL Liquid 60 ml PO 4X/DAY Qty: 0 RF: 0 Firvanq 25 mg/mL Recon Soln 125 mg PO Q6 Qty: 0 RF: 0 Continued nitroglycerin 0.4 mg tablet, sublingual 0.4 mg SUBLINGUAL Q5M PRN (Reason: Angina) Qty: 25 RF: 3 mpaohtzu-sai-LJ-lycopen-lutein 1 EACH tablet 1 ea PO QODAY RF: 0 acetaminophen 500 MG tablet 1,000 mg PO Q8H PRN PRN (Reason: Pain 1-10 Or Fever) RF: 0 calcium carbonate-vitamin D3 1 TABLET tablet 1 tablet PO DAILY RF: 0 aspirin 81 mg tablet,delayed release (DR/EC) 81 mg PO DAILY Qty: 90 RF: 3 amiodarone 200 mg tablet 200 mg PO BID Qty: 180 RF: 3 clopidogrel 75 mg tablet 75 mg PO DAILY RF: 0 Discontinued metoprolol succinate 100 MG tablet extended release 24 hr 100 mg PO DAILY RF: 0 duloxetine 60 MG capsule 60 mg PO DAILY Qty: 30 RF: 0 buspirone 10 mg tablet 10 mg PO TID RF: 0 Referrals / Follow Up: Shay Del Rosario III, MD [Primary Care Provider] - (1 to 2 weeks after discharge from rehab) Disposition Disposition (needs filled in before D/C Order can be placed): Inpatient rehab unit/facility Visit Charges Inpatient E&M: 99593 Disch Hosp
--- NOTE | 2021-03-29 11:13 | NURSING ---
spoke with [facility] floor rehab- states they will call when ready for report, anticipating it will be after lunch time.
--- NOTE | 2021-03-29 11:47 | PHA.DC.MR ---
Pharmacy Service has performed discharge medication reconciliation for this patient upon transfer to inpatient rehab. Home Medications nitroglycerin 0.4 mg sublingual tablet 0.4 mg SUBLINGUAL Q5M PRN #25 tab 05/08/18 ribtjsol-lvn-QL-lycopen-lutein 1 ea PO QODAY 12/13/19 aspirin 81 mg tablet,delayed release 81 mg PO DAILY #90 tab 01/04/20 amiodarone 200 mg tablet 200 mg PO BID #180 tab 06/15/20 clopidogrel 75 mg tablet 75 mg PO DAILY 09/15/20 acetaminophen 1,000 mg PO Q8H PRN PRN tab 11/29/20 calcium carbonate-vitamin D3 1 tablet PO DAILY 03/17/21 acidophilus-pectin, citrus 2 tab PO TID #0 tab 03/29/21 alum-mag hydroxide-simeth [Mag-Al Plus Extra Strength] 30 ml PO Q6H PRN PRN #3000 ml 03/29/21 food supplemt, lactose-reduced [Ensure Enlive] 60 ml PO 4X/DAY #0 ml 03/29/21 heparin (porcine) 5,000 unit SUBCUT Q8 #0 ml 03/29/21 magnesium chloride [Mag 64] 128 mg PO BID #0 tab 03/29/21 melatonin 3 mg PO QHS #30 tab 03/29/21 menthol-zinc oxide [Calmoseptine] 1 applic TOPICAL BID #71 g 03/29/21 nystatin [Nyamyc] 1 applic TOPICAL BID #0 g 03/29/21 vancomycin [Firvanq] 125 mg PO Q6 #0 ml 03/29/21 The patient's discharge medication list was reviewed for discrepancies and discrepancies were resolved.
--- NOTE | 2021-03-29 13:59 | PN.RENAL_ITS ---
Subjective Subjective no new complaints. sodium is now better. BP is better also. Objective Data Objective Data Vital Signs: Vital Signs Temp Pulse Resp BP Pulse Ox 98.7 F 81 18 140/82 H 95 03/29/21 08:51 03/29/21 08:58 03/29/21 08:51 03/29/21 08:58 03/29/21 08:51 Oxygen Delivery Method Room Air Weight: 84.776 kg Body Mass Index (BMI) 24.2 Orthostatic Vital Signs Start: 03/18/21 02:36 Freq: Status: Active Protocol: Activity Type Activity Date Activity User E-Sign Co-Sign Detail Recorded Client Recorded Date Recorded By Document 03/29/21 08:58 MATTHEW [id number] 03/29/21 08:58 MATTHEW 03/29/21 08:58 Orthostatic Vitals Standing -Blood Pressure (90/60-120/80) 125/77 H -Extremity Use Left Arm -Pulse Rate (60-100) 118 H Sitting -Blood Pressure (90/60-120/80) 145/86 H -Extremity Use Left Arm -Pulse Rate (60-100) 95 Lying -Blood Pressure (90/60-120/80) 140/82 H -Extremity Use Left Arm -Pulse Rate (60-100) 81 03/29/21 09:10 Nursing Note by Esthela Trejo pt states a little lightheaded gait much steadier than yesterday, pt able to ambulate into bathroom with use of walker, voided and had small bm. Initialized on 03/29/21 09:10 - END OF NOTE Intake & Output: Intake and Output for Last 24 Hours 03/27/21 03/28/21 03/29/21 23:59 23:59 23:59 Intake Total 250 / 250 2170 / 2170 1526.25 / 1526.25 Balance 250 / 250 2170 / 2170 1526.25 / 1526.25 Lab / Micro Data Result Diagrams: 03/26/21 05:28 03/29/21 05:21 Labs: Laboratory Results - last 24 hr 03/29/21 05:21 Sodium 132 L Potassium 3.8 Chloride 100 Carbon Dioxide 26.0 Anion Gap 6 BUN 8 Creatinine 0.49 L Estim Creat Clear Calc 169.86 Est GFR (MDRD) Af Amer 222 Est GFR (MDRD) Non-Af 183 BUN/Creatinine Ratio 16.5 Glucose 97 Calcium 8.4 L Micro: Microbiology 03/25/21 15:40 Urine, Random Urine Culture - Final Staphylococcus warneri Klebsiella pneumoniae sp pneum 03/18/21 21:50 Stool Enteric Bacteriology - Final 03/17/21 20:00 Stool C. difficile GDH Antigen & Toxins - Final 03/17/21 20:00 Stool C. difficile DNA Amplification - Final Radiography Diagnostic Testing: Radiology Impression Echocardiogram 03/28/21 17:14 Interpretation Summary Mildly dilated left ventricle. The estimated ejection fraction is 30 %. There is moderate to severe global hypokinesis of the left ventricle. ICD or pacer leads identified within the right ventricle. Contrast injection was performed. Ordering Physician: Gautam Arellano Referring Physician: ELINA Marrufo CEBUL Performed By: Samara Monreal, OMER, RVT Physical Exam Const alert and no apparent distress General Appearance: comfortable HEENT normocephalic Neck General: normal visual inspection and trachea midline Resp normal respiratory effort and clear to auscultation bilaterally Cardio regular rate, regular rhythm, S1 normal heart sound and S2 normal heart sound GI soft to palpation and non-tender Extremity no clubbing, cyanosis or edema Neuro Sensorium / Orientation: awake and alert Assessment & Plan Assessment/Plan (1) Hyponatremia: PLAN: sodium is now better. this is likely all related to his anti depressants. held now. BP is normal now. ok to dc midodrine and florinef along with salt tablets. will arrange follow up after dc (2) C. difficile colitis: PLAN: On p.o. vancomycin per primary. Diarrhea has resolved for now. (3) Benign hypertension: PLAN: had postural hypotension. serum cortisol is ok. kamar Turcios
== END 2021-03-29 14:19 | DRG 644 ==
LOC: ED 10:16 → PCU 10:45 → MS3 03-20 10:22
PROVIDERS: Internal Medicine; Admitting Provider Internal Medicine; Emergency Provider Emergency Medicine; PCP Family Medicine; Visit Provider Internal Medicine
DX: E22.2 Syndrome of inappropriate secretion of antidiuretic hormone (principal); I47.2 Ventricular tachycardia; I50.32 Chronic diastolic (congestive) heart failure; F10.10 Alcohol abuse, uncomplicated; E78.5 Hyperlipidemia, unspecified; E83.42 Hypomagnesemia; M25.561 Pain in right knee; M25.562 Pain in left knee; W19.XXXA Unspecified fall, initial encounter; E87.6 Hypokalemia; E86.0 Dehydration; R29.6 Repeated falls; I11.0 Hypertensive heart disease with heart failure; J44.9 Chronic obstructive pulmonary disease, unspecified; I25.10 Atherosclerotic heart disease of native coronary artery without angina pectoris; F41.8 Other specified anxiety disorders; I25.5 Ischemic cardiomyopathy; I95.1 Orthostatic hypotension; M19.90 Unspecified osteoarthritis, unspecified site; Z95.5 Presence of coronary angioplasty implant and graft; Z95.810 Presence of automatic (implantable) cardiac defibrillator; Z87.440 Personal history of urinary (tract) infections; Z79.82 Long term (current) use of aspirin; Z79.02 Long term (current) use of antithrombotics/antiplatelets; Z79.899 Other long term (current) drug therapy; F17.200 Nicotine dependence, unspecified, uncomplicated; Z22.1 Carrier of other intestinal infectious diseases
CPT/HCPCS: 36415; 73564; 80048; 80053; 81001; 82533; 83735; 83930; 83935; 84300; 84443; 85025; 85027; 87077; 87086; 87088; 87186; 87493; 87506; 93005; 93306; 97110; 97162; 97166; 97530; 97535; 97802; 97803; 99251; 99285; J7030; J7040; Q9957; A4216; C8929; G0463; J2405; J3490

== ENCOUNTER 2021-03-29 14:28 | Inpatient (IN) | payer MEDICARE, MEDICAID, SELFPAY ==
[2019-02-17 13:19] VITALS: BMI 29.2
[2021-03-17 11:11] VITALS: BMI 24.2
[2021-03-29 14:34] VITALS: BP 96/72; PULSE 75; RESP 14; TEMP 37.4; O2SAT 97
[2021-03-29 19:41] VITALS: BP 141/83; PULSE 80; RESP 16; TEMP 36.8; O2SAT 95
[2021-03-29 20:51] VITALS: O2SAT 96
[2021-03-29] MEDS: Heparin Injection (Vial) 5,000 UNIT/ML VIAL 5000 UNIT SC (21:11)
[2021-03-29] MEDS: Amiodarone 200 MG Tablet PO (21:11)
[2021-03-29] MEDS: Magnesium Chloride 64 MG Delay Rel.Tablet 128 MG PO (21:12)
[2021-03-29] MEDS: MELATONIN 3 MG TABLET PO (21:12)
[2021-03-29] MEDS: Nystatin Powder 15gm Bottle 1 APPLIC TOPICAL (21:13)
[2021-03-29] MEDS: Menthol/Lanolin/Calamine/Znox 113 GM Tube 1 APPLIC TOPICAL (21:20)
[2021-03-29 22:00] VITALS: RESP 16; O2SAT 96
[2021-03-30] MEDS: Heparin Injection (Vial) 5,000 UNIT/ML VIAL 5000 UNIT SC ×3 (05:59→21:15)
[2021-03-30] MEDS: Menthol/Lanolin/Calamine/Znox 113 GM Tube 1 APPLIC TOPICAL ×2 (06:01→20:57)
[2021-03-30 07:00] VITALS: BP 131/74; BP 137/78; BP 86/58; PULSE 75; PULSE 88; PULSE 97
[2021-03-30 07:01] VITALS: O2SAT 91
[2021-03-30 07:23] VITALS: BP 126/74; PULSE 86; RESP 16; TEMP 36.5; O2SAT 93
[2021-03-30] MEDS: Magnesium Chloride 64 MG Delay Rel.Tablet 128 MG PO ×2 (08:37→20:55)
[2021-03-30] MEDS: Amiodarone 200 MG Tablet PO ×2 (08:38→20:59)
[2021-03-30] MEDS: Clopidogrel Bisulfate 75 MG Tablet PO (08:38)
[2021-03-30] MEDS: Aspirin E.C. 81 MG Tablet PO (08:38)
[2021-03-30] MEDS: Calcium Carb/Vitamin D 1 TABLET Tablet PO (08:38)
--- NOTE | 2021-03-30 09:45 | PCM.HP.STD ---
[facility] - General General Date of Admission: 03/29/21 Date of Service: 03/30/21 Chief Complaint: Debility secondary to generalized weakness with frequent falls due to longstanding alcoholism and poor nutrition. HPI Narrative FRANCIS MORTON, is a 66 M with a PMH of alcoholism (longstanding), CAD, tobacco dependence, ventricular tachycardia, stage I mild COPD by gold classification, hyperlipidemia, multiple PTCA/stents, ischemic cardiomyopathy versus EtOH induced cardiomyopathy, history of AICD placement, hypertension, recurrent hyponatremia and a hip fracture in November 2020 secondary to a fall. Thanh presented to the ED on 03/17/21 stating he fell 3 days prior to admission and had not been able to get around due to knee pain and generalized weakness. He told the admitting physician he drinks beer a few times a week and he quit smoking in November of 2017 but, when he was in rehab in November of 2020 he was smoking at that time. He also said he drank a few glasses of wine 3 times a week when he presented to the [facility] ED in November after a fall lead to a hip fracture and later revealed to me he drinks at least 15 beers a day. His sodium is chronically low. At presentation to the ED in November it was 124 and at the time of his most recent admission his sodium was 120. He remained hyponatremic and nephrology was consulted. He was diagnosed with SIADH and was placed on fluid restriction and salt tablets. He continued to be hyponatremic and Buspar and Cymbalta were stopped because they can both cause Hyponatremia and orthostatic hypotension. Sodium at admission to rehab is 132. TSH and cortisol are repeatedly normal. He was still mildly orthostatic but he had minimal sx. Left knee x-ray was normal in the emergency department and the right knee showed degenerative arthrosis which was severe in the medial femorotibial compartment. He had a repeat echocardiogram while in the hospital at this admission that showed an ejection fraction of 30% which is down from 45% in November of 2020 (I suspect he has an alcoholic CM as well as ischemic CM). There was moderate to severe global left ventricular systolic dysfunction and severe global hypokinesis of the left ventricle. During this admission he was placed on vancomycin for diarrhea. He was antibody positive but toxin negative and is likely a carrier. Enteric pathogen panel was negative. He was transferred to the rehab unit at [facility] on 03/29/21 for generalized weakness/ debility and will have > 3 hours of therapy daily to restore him at or near his prior level of function. He has not been truthful about his alcohol abuse in the past and he has not done anything to help himself and deal with his addiction. He has many excuses and and no motivation to get better. The CM is worsening and he has lost 20 lbs since November......likely he is drinking his calories and not consuming a healthy diet. If he is to return to his healthy baseline he is going to have to admit he is an addict and consider an inpt ETOH rehab program. If he does not address these issues he will continue to decline. He is now incontinent of both urine and stool. He needs encouragement to participate in therapy so I am not sure he can even do 3 hours a day....... if he is not able to do 3 hours a day by Friday will need to consider downgrading to a less level of care until he is able to do 3 hours. Therapy had to visit him twice yesterday to gain compliance with OOB. He is orthostatic today. Blood pressure lying was 137/78 with a heart rate of 75. The blood pressure standing was 86/58 with a heart rate of 97. [facility] Medical History Atherosclerotic heart disease of [place] coronary artery without angina pectoris Cellulitis and abscess of upper extremity Cerebellar atrophy Declining functional status Dehydration Femoral neck fracture History of alcoholism History of echocardiogram (04/03/17) History of stress test (02/16/10) HTN (hypertension) Hyperlipidemia Ischemic cardiomyopathy Macrocytosis Premature heartbeats Stage 1 mild COPD by GOLD classification Tobacco user Urinary tract infection Ventricular tachycardia Home Medications nitroglycerin 0.4 mg sublingual tablet 0.4 mg SUBLINGUAL Q5M PRN #25 tab 05/08/18 [Rx Last Taken Unknown] wroyhrrd-kdz-LC-lycopen-lutein 1 ea PO QODAY 12/13/19 [History Last Taken 11/13/20] amiodarone 200 mg tablet 200 mg PO BID #180 tab 06/15/20 [Rx Last Taken 11/14/20 17:30] clopidogrel 75 mg tablet 75 mg PO DAILY 09/15/20 [History Last Taken 11/14/20 17:30] acetaminophen 1,000 mg PO Q8H PRN PRN tab 11/29/20 [Rx Last Taken Unknown] calcium carbonate-vitamin D3 1 tablet PO DAILY 03/17/21 [History Last Taken Unknown] acidophilus-pectin, citrus 2 tab PO TID 03/29/21 [History Last Taken Unknown] alum-mag hydroxide-simeth [Mag-Al Plus Extra Strength] 30 ml PO Q6H PRN PRN #3000 ml 03/29/21 [Rx Last Taken Unknown] aspirin 81 mg PO DAILY 03/29/21 [History Last Taken Unknown] food supplemt, lactose-reduced [Ensure Enlive] 60 ml PO 4X/DAY 03/29/21 [History Last Taken Unknown] heparin (porcine) 5,000 unit SUBCUT Q8 03/29/21 [History Last Taken Unknown] magnesium chloride [Mag 64] 128 mg PO BID 03/29/21 [History Last Taken Unknown] melatonin 3 mg PO QHS 03/29/21 [History Last Taken Unknown] menthol-zinc oxide [Calmoseptine] 1 applic TOPICAL BID 03/29/21 [History Last Taken Unknown] nystatin [Nyamyc] 1 applic TOPICAL BID 03/29/21 [History Last Taken Unknown] vancomycin [Firvanq] 125 mg PO Q6 03/29/21 [History Last Taken Unknown] Allergy/AdvReac Type Severity Reaction Status Date / Time Iodine and Iodide Containing Allergy Severe Rash Verified 11/15/20 03:28 Produc ezetimibe [From Zetia] AdvReac Severe Myalgias Verified 11/15/20 03:28 Hwaepnu-Ezf-Lkm Reductase AdvReac Severe Elevated Verified 11/15/20 03:28 Inhibitor Liver Enzymes buspirone [From BuSpar] AdvReac Orthostasis, Verified 03/29/21 11:02 hyponatremia duloxetine [From Cymbalta] AdvReac Orthostasis Verified 03/29/21 11:02 /hyponatrem ia Family History Grandmother Myocardial infarction Grandfather Myocardial infarction Surgical History History of coronary artery stent placement (02/17/19) History of left heart catheterization (LHC) (01/21/19) Hx of knee surgery Presence of automatic (implantable) cardiac defibrillator (10/31/17) Social History (Updated 03/30/21 @ 13:[address] Kristina Zaragoza, ) household members: family and other details: currently living with his father and his brother Donnell. housing: house number of children: 1 financial difficulty paying for basics: hard current occupational status: unemployed Smoking Status: Current every day smoker tobacco type: cigarettes how long ago did patient quit smokin11/2017 alcohol intake: current alcohol intake frequency: 3 or more drinks per day Alcohol type: wine substance use type: other details: Has abused RX Ativan in the past well-balanced diet: other details: says that he gets meals on wheels and they pile upin the refrigerator caffeine: No during the past year weight has: other details: decreased 20 lbs since November what type of physical activity do you participate in: none duration: < 15 minutes/day seatbelt use: always do you feel safe at home: Yes ROS Constitutional Constitutional: Reports change in weight, fatigue, frequent falls, lethargy and weight loss; Denies chills Eyes Eyes: Reports systems reviewed and no addt'l complaints, except as documented ENT HEENT: Reports dizziness Cardiovascular Cardiovascular: Reports dizziness, easily tiring during activity and hypertension Respiratory/Chest Respiratory/Chest: Reports systems reviewed and no addt'l complaints, except as documented Gastrointestinal Gastrointestinal: Reports diarrhea, dyspepsia and nausea Genitourinary Genitourinary: Reports nocturia, urinary incontinence and urinary urgency; Denies dysuria Musculoskeletal Musculoskeletal: Reports abnormal gait, atrophy, difficulty walking and muscle weakness Integumentary Integumentary: Reports systems reviewed and no addt'l complaints, except as documented Neurologic Neurologic: Reports abnormal gait, frequent falls and tremor(s); Denies sensory deficit Psychiatric Psychiatric: Reports anxiety, difficulty concentrating, suicidal ideation and other Details: He has suicidal ideation but does not have a plan ; Denies homicidal ideation or visual hallucinations Hematologic/Lymphatic Hematologic/Lymphatic: Reports easy bruising Allergic/Immunologic Allergic/Immunologic: Reports systems reviewed and no addt'l complaints, except as documented Vital Signs Vital Signs Vital Signs: 03/29/21 14:34 03/29/21 19:41 03/29/21 20:51 Temperature 99.3 F H 98.3 F Temperature Source Oral Oral Pulse Rate 75 80 Respiratory Rate 14 16 Respiratory Effort Respiratory Depth Respiratory Pattern Blood Pressure 96/72 141/83 H Blood Pressure Mean 80 102 Blood Pressure Source Monitor Monitor Blood Pressure Position Semi-Fowlers Semi-Fowlers Blood Pressure Location Right Arm Right Arm Pulse Ox 97 95 96 Oxygen Delivery Method Room Air Room Air Room Air 03/29/21 22:00 03/30/21 07:01 03/30/21 07:23 Temperature 97.7 F L Temperature Source Oral Pulse Rate 86 Respiratory Rate 16 16 Respiratory Effort Normal Non-Labored Respiratory Depth Normal Respiratory Pattern Normal Blood Pressure 126/74 H Blood Pressure Mean 91 Blood Pressure Source Monitor Blood Pressure Position Semi-Fowlers Blood Pressure Location Right Arm Pulse Ox 96 91 93 Oxygen Delivery Method Room Air Room Air Room Air Weight Weight: 186 lb 1.122 oz Body Mass Index (BMI) 24.2 Physical Exam Const alert, oriented x3 and no apparent distress General Appearance: other cooperative to a point.....initally not truthful about his drinking Nutritional Appearance: underweight HEENT normocephalic and head/scalp atraumatic HEENT Narrative: poor dentition Teeth and Gingiva: poor dentition and teeth discoloration Eyes PERRL and EOMs intact bilaterally Neck no lymphadenopathy, no JVD and no carotid bruits Chest Chest: symmetrical chest wall rise Resp normal respiratory effort, no use of accessory muscles and clear to auscultation bilaterally Auscultation: diminished lung sounds Cardio regular rate, regular rhythm, S1 normal heart sound, S2 normal heart sound and no gallops GI normal to inspection, nondistended, normoactive bowel sounds, soft to palpation and non-tender Narrative: has been incontinent of urine and stool and blames it on the nurses not getting there to help him. He does not use a urinal. Bladder / Kidney Exam: other PVR's are all less than 200 Extremity no clubbing, cyanosis or edema and no calf tenderness Skin no rashes or lesions noted Neuro oriented x3, CN's II-XII intact bilaterally, moves all extremities, no focal motor deficits and no sensory deficits noted Neuro Narrative: generalized weakness. Tremors of the hands. Meningeal Signs: no meningeal signs Gait (Neuro): shuffling, wide-based and other slow Psych Appearance: grossly normal and well kempt Attitude: evasive and agitated Activity / Motor Behavior: other He once again has many excuses on why he can not go to AA or inpt rehab. Once again tells me it is about his house in probate.....it was his 's house and her family contested his inheritance. He is living with his father and brother in the basement. Gave same excuse in November. Then told me he will never go to rehab again because it does not help him. He got agitated at being asked questions and then told me he did not know if he should be answering questions about his personal life. Got angry when I told him that his PE and lab told me that he is drinking way more than what he indicates....a few times a week. Tells one person he drinks wine and another he drinks beer. He is evasive and not truthful. Speech: normal speech Thought Process: confabulating Thought Content: other He has thought about suicide at times in his life but, he has never tried and he does not have a plan. Attention / Concentration: other I had to give him directions several times before he was able to hold his arms up for 10 secs. Memory / Cognition: cognition impaired Insight: poor Judgement: poor Assessment & Plan Assessment/Plan (1) Physical debility: (2) Declining functional status: (3) Frequent falls: (4) History of alcoholism: (5) Cerebellar atrophy: (6) Chronic alcohol abuse: (7) Orthostatic hypotension: (8) Hyponatremia: (9) Syndrome of inappropriate ADH (SIADH) secretion: (10) Hypomagnesemia: (11) C. difficile colitis: (12) Hypokalemia: (13) Abnormal LFTs: (14) Ischemic cardiomyopathy: (15) Alcoholic cardiomyopathy: (16) HTN (hypertension): QUALIFIERS: Hypertension type: essential hypertension Qualified Code(s): I10 - Essential (primary) hypertension (17) Stage 1 mild COPD by GOLD classification: (18) History of left heart catheterization (LHC): (19) Hyperlipidemia: QUALIFIERS: Hyperlipidemia type: unspecified Qualified Code(s): E78.5 - Hyperlipidemia, unspecified (20) Atherosclerotic heart disease of [place] coronary artery without angina pectoris: QUALIFIERS: [place] vs. transplanted heart: [place] heart Qualified Code(s): I25.10 - Atherosclerotic heart disease of [place] coronary artery without angina pectoris (21) Ventricular tachycardia: (22) Premature heartbeats: (23) Presence of automatic (implantable) cardiac defibrillator: (24) History of coronary artery stent placement: (25) Tobacco user: (26) Macrocytosis: PLAN: PLAN PT for gait stability OT for ADL's ST for evaluation of memory and cognitive dysfunction/processing Analgesics as needed - non-narcotic Bowel protocol Finish 14 days of Vancomycin but, he was toxin negative and antibody positive and likely does not have acute C. Diff colitis. Enteric pathogen panel negative. Suspect he may have multisystem atrophy with neurogenic orthostatic hypotengen due to alcohol abuse which has been long standing. Fall precautions Assess for Anxiety/Depression - Busapr and Cymbalta were discontinued due to hyponatremia and orthostatic hypotension GI prophylaxis with Pepcid 20 mg p.o. twice daily DVT prophylaxis with heparin subcu Follow up with PCP and neurology following DC from IP Rehab neurology to evaluate for neuropathy and cerebellar degeneration AM lab including CMP, CBC, Mag and Phos, CPK Visit Charges Inpatient E&M: 77720 Init Hosp L3
[2021-03-30] MEDS: Multivitamins,Ther W-Minerals Tablet 1 TABLET PO (10:01)
--- NOTE | 2021-03-30 14:01 | CASEMGMT ---
Social Work Met with patient for initial assessment. Discussed code status. Pt wishes to be DNR-CCA, no intubation. Notified nursing. Explained Medicare benefit. The goal is for pt to DC home alone to split level. Pt does have NNAMDI secondary. Pt denies wanting any counseling assistance for alcoholism, depression/anxiety. Brother does not want to be apart of Team meetings. SW to continue to follow. Mally Baca, CARD SORTER SUPERVISOR CELL ROOM
[2021-03-30 20:30] VITALS: BP 132/79; PULSE 82; RESP 16; TEMP 36.6; O2SAT 96
[2021-03-30] MEDS: MELATONIN 3 MG TABLET PO (20:55)
[2021-03-30] MEDS: Famotidine 20 MG Tablet PO (20:55)
[2021-03-30] MEDS: Nystatin Powder 15gm Bottle 1 APPLIC TOPICAL (20:57)
--- NOTE | 2021-03-31 00:19 | NURSING ---
midnight dose of antibiotic given and pt requesting to have more water, water given at pt request and then he asked for a glass of milk d/t he couldn't sleep. pt questioned why his pitcher wasn't filled and staff tried to explain the he was only allowed to have 750cc from the floor and i would be happy to let fela know in the am about him wanting water in his pitcher. pt became agitated and stated that he was told by the re etcher that after 0000 it started all over and he could have more to drink, and he wanted to talk to fela and then said never mind she was not here. staff offered to have the rn come in and talk to pt regarding the restriction and pt became tearful and stated ok. pt at 2030 was asking for more fluids then and stated that someone had told him that his sodium level was at 135 and he didn't need to be on a fluid restriction any more and would we let the kitchen know, labs were shown to pt and that his sodium was only at 132 and that he wouldn't want to ruin all his hard work and drop his sodium level again by drinking to much. pt requested to have ice chips and those were given to pt at 2100. pt was already given 120cc of ensure as per order. rn went back to see pt at 0030 and pt had his voiced raised when talking with her.
--- NOTE | 2021-03-31 02:00 | NURSING ---
Reviewed and agree with DIRECTOR OF RESOURCE DEVELOPMENT assessment and handoff.
[2021-03-31] MEDS: Heparin Injection (Vial) 5,000 UNIT/ML VIAL 5000 UNIT SC ×3 (04:44→21:19)
[2021-03-31] MEDS: Menthol/Lanolin/Calamine/Znox 113 GM Tube 1 APPLIC TOPICAL ×2 (06:25→21:19)
[2021-03-31] MEDS: Amiodarone 200 MG Tablet PO ×2 (07:26→21:19)
[2021-03-31] MEDS: Magnesium Chloride 64 MG Delay Rel.Tablet 128 MG PO ×2 (07:26→21:20)
[2021-03-31] MEDS: Multivitamins,Ther W-Minerals Tablet 1 TABLET PO (07:26)
[2021-03-31] MEDS: Clopidogrel Bisulfate 75 MG Tablet PO (07:27)
[2021-03-31] MEDS: Calcium Carb/Vitamin D 1 TABLET Tablet PO (07:27)
[2021-03-31] MEDS: Aspirin E.C. 81 MG Tablet PO (07:27)
[2021-03-31] MEDS: Famotidine 20 MG Tablet PO ×2 (07:27→21:20)
[2021-03-31] MEDS: Nystatin Powder 15gm Bottle 1 APPLIC TOPICAL ×2 (07:29→21:20)
[2021-03-31 08:00] VITALS: BP 130/83; PULSE 81; RESP 16; TEMP 36.7; O2SAT 93
[2021-03-31 09:01] LABS: ALB/GLOB Ratio 0.8 RATIO (0.9-2.4); AST(SGOT) 190 U/L (15-37); Alanine Aminotransfer ALT/SGPT 172 U/L (16-61); Albumin, Serum 2.7 g/dL (3.2-5.0); Alkaline Phosphatase 90 U/L (45-117); Anion Gap 8 (5-15); BUN 8 mg/dL (7-18); BUN/Creat Ratio 13.1 RATIO (10-20); CPK Total, Creatine Kinase 26 U/L (39-308); Calcium,Total 8.6 mg/dL (8.5-10.1); Chloride 99 mmol/L (98-107); Creatinine, Serum 0.61 mg/dL (0.70-1.30); EST Glomerular Filtration Rate 140 mL/min (>60); Est Glom Filt Rate - Afr Amer 170 mL/min (>60); Estimated Creatinine Clearance 136.44 ml/min; Globulin 3.3 g/dL (2.2-4.2); Glucose 109 mg/dL (74-106); Magnesium 1.9 mg/dL (1.6-2.6); Potassium 4.4 mmol/L (3.5-5.1); Sodium Level 129 mmol/L (136-145)
[2021-03-31 09:08] LABS: Phosphorus 3.1 mg/dL (2.5-4.9)
[2021-03-31] MEDS: Mag Hydrox/Al Hydrox/Simeth 30 ML UDC PO (11:46)
[2021-03-31 19:30] VITALS: BP 152/79; PULSE 81; RESP 16; TEMP 36.1; O2SAT 96
[2021-03-31] MEDS: Acetaminophen 500 MG Tablet 1000 MG PO (20:01)
[2021-03-31] MEDS: MELATONIN 3 MG TABLET PO (21:20)
[2021-04-01] MEDS: Menthol/Lanolin/Calamine/Znox 113 GM Tube 1 APPLIC TOPICAL ×2 (05:17→21:44)
[2021-04-01] MEDS: Heparin Injection (Vial) 5,000 UNIT/ML VIAL 5000 UNIT SC ×3 (05:18→21:42)
--- NOTE | 2021-04-01 07:10 | NURSING ---
REVIEWED AND AGREE WITH SUPERINTENDENT HORTICULTURE'S FUNCTIONAL ASSESSMENT AND HANDOFF CHARTING.
[2021-04-01] MEDS: Multivitamins,Ther W-Minerals Tablet 1 TABLET PO (07:40)
[2021-04-01] MEDS: Aspirin E.C. 81 MG Tablet PO (07:40)
[2021-04-01] MEDS: Magnesium Chloride 64 MG Delay Rel.Tablet 128 MG PO ×2 (07:40→21:42)
[2021-04-01] MEDS: Famotidine 20 MG Tablet PO ×2 (07:40→21:43)
[2021-04-01] MEDS: Calcium Carb/Vitamin D 1 TABLET Tablet PO (07:40)
[2021-04-01] MEDS: Clopidogrel Bisulfate 75 MG Tablet PO (07:40)
[2021-04-01] MEDS: Amiodarone 200 MG Tablet PO ×2 (07:40→21:41)
[2021-04-01 08:00] VITALS: BP 133/77; PULSE 76; RESP 16; TEMP 36.2; O2SAT 93
[2021-04-01] MEDS: Mag Hydrox/Al Hydrox/Simeth 30 ML UDC PO (11:07)
[2021-04-01 20:12] VITALS: BP 118/81; PULSE 81; RESP 18; TEMP 36.6; O2SAT 98
[2021-04-01] MEDS: MELATONIN 3 MG TABLET PO (21:43)
[2021-04-01] MEDS: Nystatin Powder 15gm Bottle 1 APPLIC TOPICAL (21:44)
--- NOTE | 2021-04-01 23:24 | NURSING ---
REVIEWED AND AGREE WITH CORE INSERTER'S FUNCTIONAL ASSESSMENT
[2021-04-02] MEDS: Heparin Injection (Vial) 5,000 UNIT/ML VIAL 5000 UNIT SC ×3 (05:45→21:27)
[2021-04-02] MEDS: Menthol/Lanolin/Calamine/Znox 113 GM Tube 1 APPLIC TOPICAL ×2 (05:51→21:30)
[2021-04-02 08:29] VITALS: BP 109/60; PULSE 85; RESP 16; TEMP 36.1; O2SAT 97
[2021-04-02] MEDS: Famotidine 20 MG Tablet PO ×2 (08:45→21:27)
[2021-04-02] MEDS: Calcium Carb/Vitamin D 1 TABLET Tablet PO (08:45)
[2021-04-02] MEDS: Amiodarone 200 MG Tablet PO ×2 (08:45→21:27)
[2021-04-02] MEDS: Magnesium Chloride 64 MG Delay Rel.Tablet 128 MG PO ×2 (08:45→21:27)
[2021-04-02] MEDS: Clopidogrel Bisulfate 75 MG Tablet PO (08:46)
[2021-04-02] MEDS: Aspirin E.C. 81 MG Tablet PO (08:46)
[2021-04-02] MEDS: Multivitamins,Ther W-Minerals Tablet 1 TABLET PO (08:46)
--- NOTE | 2021-04-02 12:22 | PN_ITS ---
Subjective Subjective Afebrile VSS Maintaining appropriate oxygen saturation on RA Oral intake is adequate. He is on a 1200 cc a day fluid restriction following a decrease in his sodium to 129 recently. Discussed with nursing - no problems that need addressed Reviewed the PT/OT/ST notes. Speech therapy evaluation revealed impaired c ognition and short-term memory, attention, safety awareness. He has been hesitant to complete tasks and engage. He told the speech therapist that he has frustration with healthcare discussing memory problems because he has a lot on his plate. I suspect he is hesitant to engage because he knows he has impaired memory and he does not want others to see this and possibly consult APS when he goes.....I do not feel that he is able to adequately care for himself. I think he may have [place] S. Due to chronic ETOH abuse with multiple admissions for encephalopathy/hyponatremia where he denied/lied about ETOH abuse and did not receive thiamine or folic acid at admission. Medication list reviewed. Sodium on Friday was 129, down from 132. Potassium is within normal limits. Creatinine is stable at 0.61 and the BUN is 9. AST and ALT are both elevated possibly due to fatty liver/cirrhosis. He gets agitated with me when I ask questions about how he cares for himself at home. He told the OT he lives in a house by himself. He told me he is living in his father's home in the basement. He can not keep his stories straight and I do not know what to believe. I know that he routinely lies about his drinking and I suspect he lies about other things as well He has some lightness when he first stands but this resolves shortly and he is able to ambulate. Objective Data Objective Data Vital Signs: Vital Signs Temp Pulse Resp BP Pulse Ox 96.9 F L 85 16 109/60 97 04/02/21 08:29 04/02/21 08:29 04/02/21 08:29 04/02/21 08:29 04/02/21 08:29 Oxygen Delivery Method Room Air Weight: 186 lb 1.122 oz Body Mass Index (BMI) 24.2 Orthostatic Vital Signs Start: 03/30/21 09:53 Freq: Status: Active Protocol: Activity Type Activity Date Activity User E-Sign Co-Sign Detail Recorded Client Recorded Date Recorded By Document 03/30/21 07:00 BL [id number] 03/30/21 09:55 BL 03/30/21 07:00 Orthostatic Vitals Standing -Blood Pressure (90/60-120/80) 86/58 L -Extremity Use Right Arm -Pulse Rate (60-100) 97 Sitting -Blood Pressure (90/60-120/80) 131/74 H -Extremity Use Right Arm -Pulse Rate (60-100) 88 Lying -Blood Pressure (90/60-120/80) 137/78 H -Extremity Use Right Arm -Pulse Rate (60-100) 75 Intake & Output: Intake and Output for Last 24 Hours 03/31/21 04/01/21 04/02/21 23:59 23:59 23:59 Intake Total 1165 / 1165 1200 / 1200 Balance 1165 / 1165 1200 / 1200 Lab / Micro Data Result Diagrams: 04/07/21 07:42 04/07/21 07:42 Physical Exam Const alert, oriented x3 and no apparent distress Constitutional Narrative: Gets defensive when I talk about memory loss and that I do not feel he can safely go home and be by himself. General Appearance: cooperative and other cooperative to a point.....initally not truthful about his drinking Nutritional Appearance: underweight HEENT normocephalic and head/scalp atraumatic Eyes PERRL and EOMs intact bilaterally Neck no lymphadenopathy, supple, no JVD and no carotid bruits Chest Chest: symmetrical chest wall rise Resp normal respiratory effort, no use of accessory muscles and clear to auscultation bilaterally Effort and Inspection: Negative for tachypneic or uses accessory muscles Auscultation: diminished lung sounds Cardio regular rate, regular rhythm, S1 normal heart sound, S2 normal heart sound, no rub and no gallops GI normal to inspection, nondistended, normoactive bowel sounds, soft to palpation and non-tender GI Narrative: multiple small bruises in various stages of healing due to Lovenox shots Bladder / Kidney Exam: other PVR's are all less than 200 Extremity no clubbing, cyanosis or edema and no calf tenderness General Extremity: Negative for edema Skin no rashes or lesions noted General Skin Exam: no breakdown Rashes: no rashes Neuro oriented x3, CN's II-XII intact bilaterally, moves all extremities, no focal motor deficits and no sensory deficits noted Neuro Narrative: Significant cognitive dysfunction/short term memory loss. Gait (Neuro): shuffling and wide-based Motor Exam: general weakness Psych Negative for denies homicidal ideation or denies suicidal ideation Appearance: grossly normal, appropriate and well kempt Attitude: evasive and agitated Activity / Motor Behavior: other Speech: normal speech Mood & Affect: anxious Thought Process: confabulating Thought Content: other He has thought about suicide at times in his life but, he has never tried and he does not have a plan. Attention / Concentration: other I had to give him directions several times before he was able to hold his arms up for 10 secs. Memory / Cognition: cognition impaired Insight: poor Judgement: poor Assessment & Plan Assessment/Plan (1) Hyponatremia: (2) Benzodiazepine abuse in remission: (3) Debility: (4) Alcoholic: (5) Abnormal LFTs: (6) Syndrome of inappropriate ADH (SIADH) secretion: (7) Orthostatic hypotension: (8) Declining functional status: (9) Pulmonary nodule: (10) Cerebellar atrophy: PLAN: Continue therapy. Continue to urge him to consider inpt ETOH rehab. If he goes home by himself will notify APS Charges/Coding Visit Charges Inpatient E&M: 86705 Subs Hosp L2
[2021-04-02] MEDS: Mag Hydrox/Al Hydrox/Simeth 30 ML UDC PO (14:28)
[2021-04-02 19:29] VITALS: BP 147/84; PULSE 89; RESP 16; TEMP 36.6; O2SAT 95
[2021-04-02 21:18] VITALS: RESP 16; O2SAT 96
[2021-04-02] MEDS: MELATONIN 3 MG TABLET PO (21:27)
[2021-04-02] MEDS: Nystatin Powder 15gm Bottle 1 APPLIC TOPICAL (21:31)
[2021-04-03 05:37] LABS: Sodium Level 130 mmol/L (136-145)
[2021-04-03 06:00] VITALS: BP 126/80; BP 141/85; BP 97/65; PULSE 84; PULSE 95; PULSE 99
[2021-04-03] MEDS: Menthol/Lanolin/Calamine/Znox 113 GM Tube 1 APPLIC TOPICAL ×2 (06:20→21:25)
[2021-04-03] MEDS: Heparin Injection (Vial) 5,000 UNIT/ML VIAL 5000 UNIT SC ×3 (06:20→21:23)
--- NOTE | 2021-04-03 06:39 | NURSING ---
While getting Orthos on pt, this RN noticed that the bed was wet. Pt was just going to crawl back into bed without alerting staff of incontinence. Attends was saturated as well. Bed change was performed and incontinence protocol performed, but pt refused to walk to br and try to empty bladder.
[2021-04-03 07:53] VITALS: BP 141/85; PULSE 84; RESP 16; TEMP 36.2; O2SAT 94
[2021-04-03] MEDS: Magnesium Chloride 64 MG Delay Rel.Tablet 128 MG PO ×2 (10:00→21:22)
[2021-04-03] MEDS: Famotidine 20 MG Tablet PO ×2 (10:00→21:25)
[2021-04-03] MEDS: Multivitamins,Ther W-Minerals Tablet 1 TABLET PO (10:01)
[2021-04-03] MEDS: Aspirin E.C. 81 MG Tablet PO (10:01)
[2021-04-03] MEDS: Calcium Carb/Vitamin D 1 TABLET Tablet PO (10:01)
[2021-04-03] MEDS: Amiodarone 200 MG Tablet PO ×2 (10:01→21:24)
[2021-04-03] MEDS: Nystatin Powder 15gm Bottle 1 APPLIC TOPICAL ×2 (10:05→21:25)
[2021-04-03] MEDS: Clopidogrel Bisulfate 75 MG Tablet PO (10:06)
--- NOTE | 2021-04-03 10:23 | CASEMGMT ---
Social Work IDT met with patient for Team meeting. Discussed patient's progress in therapy and nursing. Discussed with patient his goals for RU and to DC home alone. Pt would like to return to PLOF to be safe and independent. SW encouraged pt to work with all disciplines of therapy to work toward those goals, show therapy what he can and cannot do independently and to follow recommendations to improve. Encouraged pt to ask questions if he is unsure the purpose of the treatment to better understand the goal of the task. Pt expressed understanding and agreed to all of the above. Explained Medicare approved 11 days with DC date 04/09. IDT wants to ensure pt is safe at home alone or will recommend SNF. Pt not agreeable to SNF. SW to continue to follow for DC plans. Will not ReTeam. ALFONSO FuentesW
--- NOTE | 2021-04-03 11:17 | PN_ITS ---
Subjective Subjective Bill was seen on team rounds today. There was no family to participate by phone. Afebrile VSS-systolic blood pressure is a little high at times but only mildly so. Heart rate is well controlled. He is still orthostatic, but remains asymptomatic. Maintaining appropriate oxygen saturation on RA Oral intake -limited to 1200 cc daily due to cardiomyopathy and hyponatremia......I have doubt that he will stick to the fluid restriction once he returns home. I have explained to him several times why this is nece ssary......he is in denial. Discussed with nursing -still incontinent of urine. Reviewed the PT/OT/ST notes. He refuses to have therapy when scheduled because I am not a morning person. He refused to shower with OT at 0600. Not cooperating with ST....he is unaware of his cognitive and memory deficits. He tells the ST he does his meds at home. When I pointed out that he had not filled the Buspar and the Plavix in the past few months.....he got agitated and stated he has a lot on his mind. This is his stock answer when he can not recall something.....I have a lot on my mind. Medication list reviewed. sodium is stable at 130. He denies lightheadedness. No CP, SOB, calf pain. No diarrhea. Objective Data Objective Data Vital Signs: Vital Signs Temp Pulse Resp BP Pulse Ox 97.1 F L 84 16 141/85 H 94 04/03/21 07:53 04/03/21 07:53 04/03/21 07:53 04/03/21 07:53 04/03/21 07:53 Oxygen Delivery Method Room Air Weight: 186 lb 1.122 oz Body Mass Index (BMI) 24.2 Orthostatic Vital Signs Start: 03/30/21 09:53 Freq: 0600 Status: Active Protocol: Activity Type Activity Date Activity User E-Sign Co-Sign Detail Recorded Client Recorded Date Recorded By Document 04/03/21 06:00 AUTUMN [id number] 04/03/21 06:47 AUTUMN 04/03/21 06:00 Orthostatic Vitals Standing -Blood Pressure (90/60-120/80) 97/65 -Extremity Use Right Arm -Pulse Rate (60-100) 99 Sitting -Blood Pressure (90/60-120/80) 126/80 H -Extremity Use Right Arm -Pulse Rate (60-100) 95 Lying -Blood Pressure (90/60-120/80) 141/85 H -Extremity Use Right Arm -Pulse Rate (60-100) 84 Intake & Output: Intake and Output for Last 24 Hours 04/01/21 04/02/21 04/03/21 23:59 23:59 23:59 Intake Total 1200 / 1200 900 / 900 350 / 350 Output Total 150 / 150 100 / 100 Balance 1200 / 1200 750 / 750 250 / 250 Lab / Micro Data Result Diagrams: 04/07/21 07:42 04/07/21 07:42 Labs: Laboratory Results - last 24 hr 04/03/21 05:23 Sodium 130 L Physical Exam Const alert, oriented x3 and no apparent distress Constitutional Narrative: Gets defensive when I talk about memory loss and that I do not feel he can safely go home and be by himself. General Appearance: cooperative and other cooperative to a point.....initally not truthful about his drinking Nutritional Appearance: underweight HEENT normocephalic and head/scalp atraumatic Eyes PERRL and EOMs intact bilaterally Neck no lymphadenopathy, supple, no JVD and no carotid bruits Chest Chest: symmetrical chest wall rise Resp normal respiratory effort, no use of accessory muscles and clear to auscultation bilaterally Effort and Inspection: Negative for tachypneic or uses accessory muscles Auscultation: diminished lung sounds Cardio regular rate, regular rhythm, S1 normal heart sound, S2 normal heart sound, no rub and no gallops GI normal to inspection, nondistended, normoactive bowel sounds, soft to palpation and non-tender GI Narrative: multiple small bruises in various stages of healing due to Lovenox shots Bladder / Kidney Exam: other PVR's are all less than 200 Extremity no clubbing, cyanosis or edema and no calf tenderness General Extremity: Negative for edema Skin no rashes or lesions noted General Skin Exam: no breakdown Rashes: no rashes Neuro oriented x3, CN's II-XII intact bilaterally, moves all extremities, no focal motor deficits and no sensory deficits noted Neuro Narrative: Significant cognitive dysfunction/short term memory loss. Gait (Neuro): shuffling and wide-based Motor Exam: general weakness Psych Negative for denies homicidal ideation or denies suicidal ideation Appearance: grossly normal, appropriate and well kempt Attitude: evasive and agitated Activity / Motor Behavior: other He once again has many excuses on why he can not go to AA or inpt rehab. Once again tells me it is about his house in probate.....it was his 's house and her family contested his inheritance. He is living with his father and brother in the basement. Gave same excuse in November. Then told me he will never go to rehab again because it does not help him. He got agitated at being asked questions and then told me he did not know if he should be answering questions about his personal life. Got angry when I told him that his PE and lab told me that he is drinking way more than what he indicates....a few times a week. Tells one person he drinks wine and another he drinks beer. He is evasive and not truthful. Speech: normal speech Mood & Affect: anxious Thought Process: confabulating Thought Content: other He has thought about suicide at times in his life but, he has never tried and he does not have a plan. Attention / Concentration: other I had to give him directions several times before he was able to hold his arms up for 10 secs. Memory / Cognition: cognition impaired Insight: poor Judgement: poor Assessment & Plan Assessment/Plan (1) Physical debility: PLAN: Continue therapy. (2) Frequent falls: PLAN: Due to alcohol toxication combined with cerebellar degeneration (3) Cognitive dysfunction, alcohol-related: PLAN: I suspect he has Korsakoff's S. (4) Declining functional status: PLAN: I do not feel he is safe to live by himself. He is not able to care for himself and has very poor safety awareness. IF he chooses to go home by himself will notify APS. (5) Incontinence of urine: (6) Hyponatremia: PLAN: Continue the fluid restriction. (7) Orthostatic hypotension: PLAN: Asymptomatic at this time. (8) Chronic systolic congestive heart failure: PLAN: EF has declined significantly since November and this is more likely than not due to alcoholic CM in addition to ischemic CM. (9) Abnormal LFTs: PLAN: Due to fatty infiltration of the liver? or is he developing cirrhosis? (10) Tobacco abuse: (11) Alcoholic cardiomyopathy: PLAN: Advised him to quit drinking and offered him help finding a suitable alcohol rehab program. Charges/Coding Visit Charges Inpatient E&M: 09020 Subs Hosp L2
[2021-04-03 19:10] VITALS: BP 140/88; PULSE 83; RESP 16; TEMP 36.5; O2SAT 97
[2021-04-03] MEDS: MELATONIN 3 MG TABLET PO (21:23)
[2021-04-03 21:41] VITALS: PULSE 76; RESP 16; O2SAT 95
[2021-04-04] MEDS: Heparin Injection (Vial) 5,000 UNIT/ML VIAL 5000 UNIT SC ×3 (06:19→21:58)
[2021-04-04] MEDS: Menthol/Lanolin/Calamine/Znox 113 GM Tube 1 APPLIC TOPICAL ×2 (06:20→22:03)
[2021-04-04 07:24] VITALS: BP 125/75; PULSE 83; RESP 16; TEMP 36.4; O2SAT 97
[2021-04-04] MEDS: Magnesium Chloride 64 MG Delay Rel.Tablet 128 MG PO ×2 (08:24→21:58)
[2021-04-04] MEDS: Aspirin E.C. 81 MG Tablet PO (08:25)
[2021-04-04] MEDS: Calcium Carb/Vitamin D 1 TABLET Tablet PO (08:25)
[2021-04-04] MEDS: Clopidogrel Bisulfate 75 MG Tablet PO (08:25)
[2021-04-04] MEDS: Amiodarone 200 MG Tablet PO ×2 (08:25→22:04)
[2021-04-04] MEDS: Multivitamins,Ther W-Minerals Tablet 1 TABLET PO (08:25)
[2021-04-04] MEDS: Famotidine 20 MG Tablet PO ×2 (08:25→22:00)
[2021-04-04] MEDS: Nystatin Powder 15gm Bottle 1 APPLIC TOPICAL ×2 (08:28→22:12)
--- NOTE | 2021-04-04 09:02 | PCM.PROGNOTE ---
Subjective Subjective Afebrile Vital signs are stable Maintaining appropriate oxygen saturation on room air Oral intake is fair ST evaluated yesterday and he was only able to recall 5/18 details from a short story. A goal for him was set by speech therapy to complete functional money management tasks with 90% accuracy to increase ability to return to prior living environment and he was agreeable to this. Another goal was to recall and implement memory strategies to complete delayed memory recall tasks with 90% accuracy to increase ability to safely return to prior living environment and the patient did not agree with this goal. He is able to ambulate 160 feet with a wheeled walker on even surfaces. He walked 150 feet outside on various surfaces with a wheeled walker at contact-guard assist. He was able to walk 75 feet with 2 straight canes at contact-guard assist. He has been able to a send/descend 12 steps with 2 rails and standby assist. Nursing reports he has both fecal and urine incontinence at times. Review of the old records show he had a CT chest in May of 2019 that showed a 6 mm non-calcified nodule in the lateral RML. There has been no follow up chest CT at this institution. Radiologist recommended follow up imaging in 3 months and categorized the nodule as 4A. The CT also showed changes consistent with emphysema. He continues to smoke. He took a shower with OT today and was CGA. Denies SOB, CP, lightheadedness.....even in the shower. He tells me he thinks his memory is good and when I pointed out that yesterday he was only able to recall 5/18 things from a story he got agitated with me. I also pointed out that he was confused about dates yesterday with ST and then stated the ST must have misinterpreted him. He takes no responsibility for himself. When I asked him if he though he was an alcoholic he told me that sometimes he drinks to much. I pointed out that the EF has dropped from 45% in November to 30% currently and this is more likely than not due to ETOH......he told me that it is due to a build up of cartilage around his heart. He does not like the fluid and salt restriction and I do not expect that he will follow a low salt diet or a 1200 cc fluid restriction after DC. He told me that his patcher wood welder did not tell him he needed to be on a low salt diet. He has not been taking Plavix for the past couple months which we found out by contacting the pharmacy he routinely uses. Also was not taking Buspar so this obviously was not the cause of the hyponatremia. I also pointed out that he routinely mis-reports how much he drinks to all physician's and other medical staff. He also does not report that he is still smoking. Objective Data Objective Data Vital Signs: Vital Signs Temp Pulse Resp BP Pulse Ox 97.5 F L 83 16 125/75 H 97 04/04/21 07:24 04/04/21 07:24 04/04/21 07:24 04/04/21 07:24 04/04/21 07:24 Oxygen Delivery Method Room Air Weight: 186 lb 1.122 oz Body Mass Index (BMI) 24.2 Orthostatic Vital Signs Start: 03/30/21 09:53 Freq: Status: Active Protocol: Activity Type Activity Date Activity User E-Sign Co-Sign Detail Recorded Client Recorded Date Recorded By Document 04/03/21 06:00 [id number] 04/03/21 06:47 04/03/21 06:00 Orthostatic Vitals Standing -Blood Pressure (90/60-120/80) 97/65 -Extremity Use Right Arm -Pulse Rate (60-100) 99 Sitting -Blood Pressure (90/60-120/80) 126/80 H -Extremity Use Right Arm -Pulse Rate (60-100) 95 Lying -Blood Pressure (90/60-120/80) 141/85 H -Extremity Use Right Arm -Pulse Rate (60-100) 84 Intake & Output: Intake and Output for Last 24 Hours 04/02/21 04/03/21 04/04/21 23:59 23:59 23:59 Intake Total 900 / 900 1150 / 1150 300 / 300 Output Total 150 / 150 550 / 550 650 / 650 Balance 750 / 750 600 / 600 -350 / -350 Lab / Micro Data Result Diagrams: 04/03/21 05:23 Physical Exam Const alert and no apparent distress Constitutional Narrative: He confabulates and he gets agitated when you point out discrepancies in his reporting of information to different individuals. Resp normal respiratory effort and clear to auscultation bilaterally Effort and Inspection: Negative for tachypneic or uses accessory muscles Auscultation: diminished lung sounds Cardio regular rate, regular rhythm, S1 normal heart sound, S2 normal heart sound and no gallops GI normal to inspection, nondistended, normoactive bowel sounds, soft to palpation and non-tender Extremity General Extremity: Negative for edema Skin General Skin Exam: no breakdown Rashes: no rashes Neuro CN's II-XII intact bilaterally Neuro Narrative: Significant cognitive dysfunction/short term memory loss. Motor Exam: general weakness Psych Attitude: agitated Assessment & Plan Assessment/Plan (1) Physical debility: (2) Declining functional status: (3) History of alcoholism: (4) Frequent falls: (5) Orthostatic hypotension: (6) Hyponatremia: (7) Syndrome of inappropriate ADH (SIADH) secretion: (8) Cognitive dysfunction, alcohol-related: (9) Abnormal LFTs: (10) Alcoholic cardiomyopathy: (11) Ischemic cardiomyopathy: (12) Tobacco user: (13) Stage 1 mild COPD by GOLD classification: (14) Cerebellar atrophy: PLAN: 1. Continue therapy. HHC at DC 2. Recheck CMP and CBC prior to DC 3. I do not feel this gentleman is safe living by himself. He is unable to manage medications and has significant cognitive dysfunction and short memory impairment. He is unable to stick to a low salt, fluid restricted diet and has had multiple admissions for hyponatremia. He will not even acknowledge that he is an alcoholic and refuses to consider and ETOH rehab program. We will notify APS at the time of DC. Unfortunately I think he is going to continue his downward spiral. Capacity Capacity Assessment Tool Can the patient make a choice & communicate that choice?: Yes Can the patient understand benefits, risks and alternatives?: Unable to Determine Can the patient make a logical, rational choice?: Unable to Determine Is there an impending, emergent risk to the patient?: No Visit Charges Inpatient E&M: 74182 Subs Hosp L2
--- NOTE | 2021-04-04 10:44 | PCM.RU.PYE ---
Admission Information Primary Diagnosis:: Debility due to consequences of mcc alcohol abuse with recurrent hyponatremia, suspected neurogenic orthostatic hypotension, malnutrition with 20 lb weight loss since the beginning of the year, worsening CM, urinary and fecal incontinence, memory loss/cognitive dysfunction and falls. Status Changes from Prescreening?: No changes Identified Actual Problem List:: Falls, Cognitve Impr/Memory Loss, Mobility Impaired, Self Care Deficit, Ineffective Communication, Know.Dfct/Disease Process, Know.Dfct of Medicaitons, BP, Hypotension, Alteration/ Air Exchange and Alteration-Leisure Activ. Potential Problem List:: DVT, Bleeding, Infection, UTI, Aspiration, Falls, Skin Integrity and Depression Risk of Complications DVT: PARMINDER Hose and - (Heparin 5000 units subcu every 8 hours) Bleeding: Monitor Lab Values, Nursing to Teach Precautions for anti-coagulation therapy., Wound, if applicable, to be assessed every shift. and Stroke patients assessed for lethargy or change in status. Infection: Clinical Staff to Monitor for S/S of infection: and S/S of infection include fever, redness, warmth, etc. Urinary Tract Infection: Monitor for frequency, burning, discomfort, or incontinence. and Nursing will obtain urine sample for urinalysis and C&S when ordered. Aspiration: Clinical staff will monitor for coughing, drooling, congestion., Speech will evaluate swallowing and dsyphasia. and Nursing will monitor patient swallowing during meals. Falls: Patient will be evaluated for Fall Precautions and Patient will be placed on Fall Precautions as indicated per protocol. Skin Breakdown: Nursing will assess skin daily using assessment tool. and Nursing will place on Skin Breakdown Precautions as indicated. Pain: Clinical staff will assess patient's pain level per protocol., Medications will be given, if needed, and the pain level reassessed. and Other methods: Massage, distraction, decrease stimulus, etc. used PRN. Plan of Care Patient requires physician specializing in physical medicine and rehab oversight to provide close medical supervision of rehab issues including: Pain Management, Sleep Problems, Bowel and Bladder, Medical and co-morbidity Management, DVT prophylaxis, Rehabilitation Leadership and Coordination of treatment team Patient needs Physical Therapy: For a minimum of 1 hour and At least 5 out of 7 days Patient needs Physical Therapy to improve:: Mobility, Strengthening, Transfers, Stretching, ROM, Endurance, Stairs, Gait and Balance Patient needs Occupational Therapy: For a minimum of 1 hour and At least 5 out of 7 days Patient needs Occupational Therapy to improve ADL's incl.: Eating, Grooming, Bathing, Dressing, Toileting, Toilet transfers, Community Reintegration, Higher functioning activities, Household tasks, Adaptive Equipment, Splinting and Other activities as determined Patient requires speech therapy: For a minimum of 1 hour and At least 5 out of 7 days Patient requires speech therapy for: Swallowing, Cognition, Language Skills and Compensatory Strategies Patient requires 24/7 Rehabilitation Nursing for: Pain Issues, Identifying and preventing risk factors, Monitoring and reporting current medical conditions, Assisting with ambulation, transfer, and all ADL's, Teaching patients about disease process and medications, Family teaching, Providing safe environment, Bowel and Bladder Issues, Skin integrity and Medication Management Patient needs Steam Brush Operator/ Case Management for: Discharge Planning, Arranging Home Equipment or Services and Family Interventions Patient needs Dietary and Nutrition Services for: Adequate Nutrition, Nutritional Supplements and Nutritional Education Goals Patient will remain: free from falls and or injury at time of discharge. Patient will perform bed mobility at: MOD I level of assist. Patient will complete transfers from bed to chair at: MOD I level of assist. Patient will ambulate: with LRD and - (300 feet on various surfaces) Patient will complete upper body dressing at: MOD I level of assist. Patient will complete lower body dressing at: MOD I level of assist. Patient will complete toileting at: MOD I level of assist. Patient will perform bathing at: MOD I level of assist. Patient will complete grooming at: MOD I level of assist. Patient will complete home management skills at: MOD I level of assist. Patient will achieve: - (1 curb step, a send/descend 10 steps with 2 rails at standby assist to be able to enter his home) Patient will have pain level of: of 3 or less Patient's skin will: remain intact Patient will receive: adequate nutrition. Discharge Planning Pt Prognosis for Sig. Practical Improv. w/in Reasonable Time: Fair Estimated Length of stay (days): 10 Anticipated D/C Destination: Home with Home Health Was Preadmission Assessment Accurate?: Yes
[2021-04-04] MEDS: Acetaminophen 500 MG Tablet 1000 MG PO (15:18)
[2021-04-04 20:16] VITALS: BP 150/84; PULSE 89; RESP 19; TEMP 36.7; O2SAT 96
[2021-04-04] MEDS: MELATONIN 3 MG TABLET PO (22:05)
[2021-04-05] MEDS: Heparin Injection (Vial) 5,000 UNIT/ML VIAL 5000 UNIT SC ×3 (06:23→20:15)
[2021-04-05] MEDS: Menthol/Lanolin/Calamine/Znox 113 GM Tube 1 APPLIC TOPICAL ×2 (06:24→20:14)
[2021-04-05 08:05] VITALS: BP 122/80; PULSE 83; RESP 16; TEMP 36.4; O2SAT 96
[2021-04-05] MEDS: Aspirin E.C. 81 MG Tablet PO (08:50)
[2021-04-05] MEDS: Calcium Carb/Vitamin D 1 TABLET Tablet PO (08:51)
[2021-04-05] MEDS: Magnesium Chloride 64 MG Delay Rel.Tablet 128 MG PO ×2 (08:51→20:14)
[2021-04-05] MEDS: Multivitamins,Ther W-Minerals Tablet 1 TABLET PO (08:54)
[2021-04-05] MEDS: Clopidogrel Bisulfate 75 MG Tablet PO (08:55)
[2021-04-05] MEDS: Famotidine 20 MG Tablet PO ×2 (08:56→20:15)
[2021-04-05] MEDS: Nystatin Powder 15gm Bottle 1 APPLIC TOPICAL ×2 (08:56→20:13)
[2021-04-05] MEDS: Amiodarone 200 MG Tablet PO ×2 (08:56→20:15)
--- NOTE | 2021-04-05 09:40 | CASEMGMT ---
Addendum entered by Mally Baca 04/06/21 13:54: [facility] Pt states he does not want to ST. Cancelled ST and adjusted transport. Pt aware. Addendum entered by Mally Baca 04/06/21 10:50: Pt requesting cane. Referred to [facility] Addendum entered by Mally Baca 04/05/21 13:47: [facility] cannot accept pt. Spoke with pt and he would like to do outpatient therapy at [facility] Referral made for PT/OT/ST, and indicated to use [facility] Van for transport. Addendum entered by Mally Baca 04/05/21 09:49: Pt inquired about aide assistance - added [employer]ZE MAKER to order. Original Note: Social Work Spoke with pt to discuss DC plans. Pt states he would still like to go home. Offered for SNF placement for socialization and safety again, pt denied. Discussed HHC vs outpatient therapy. Pt does not have a car or support for transportation - would like [facility]. Pt believes he used [facility] prior - referral made for PT/OT/ST/SN/SW. Pt requesting transport home. Scheduled [facility] Van transport for 10 am. No DME needs. Plan: DC home alone 04/09, [facility] PT/OT/ST/SN/SW ALFONSO Fuentes
[2021-04-05] MEDS: Acetaminophen 500 MG Tablet 1000 MG PO (17:08)
[2021-04-05 20:10] VITALS: BP 133/78; PULSE 82; RESP 18; TEMP 36.8; O2SAT 94
[2021-04-05] MEDS: Senna/Docusate Sodium 1 Tablet 2 TABLET PO (20:21)
--- NOTE | 2021-04-06 03:08 | NURSING ---
REVIEWED AND AGREE WITH SUPERVISOR FELTING ASSESSMENT
[2021-04-06] MEDS: Heparin Injection (Vial) 5,000 UNIT/ML VIAL 5000 UNIT SC ×3 (05:49→22:36)
[2021-04-06] MEDS: Menthol/Lanolin/Calamine/Znox 113 GM Tube 1 APPLIC TOPICAL ×2 (05:50→22:29)
[2021-04-06 07:35] VITALS: BP 141/79; PULSE 79; RESP 18; TEMP 36.6; O2SAT 95
[2021-04-06] MEDS: Aspirin E.C. 81 MG Tablet PO (09:32)
[2021-04-06] MEDS: Calcium Carb/Vitamin D 1 TABLET Tablet PO (09:32)
[2021-04-06] MEDS: Multivitamins,Ther W-Minerals Tablet 1 TABLET PO (09:32)
[2021-04-06] MEDS: Amiodarone 200 MG Tablet PO ×2 (09:33→22:30)
[2021-04-06] MEDS: Magnesium Chloride 64 MG Delay Rel.Tablet 128 MG PO ×2 (09:33→22:30)
[2021-04-06] MEDS: Clopidogrel Bisulfate 75 MG Tablet PO (09:33)
[2021-04-06] MEDS: Famotidine 20 MG Tablet PO ×2 (09:33→22:31)
[2021-04-06] MEDS: Acetaminophen 500 MG Tablet 1000 MG PO ×2 (09:33→22:45)
[2021-04-06 19:34] VITALS: BP 128/80; PULSE 86; RESP 16; TEMP 36.2; O2SAT 93
[2021-04-06] MEDS: Nystatin Powder 15gm Bottle 1 APPLIC TOPICAL (22:31)
[2021-04-06] MEDS: MELATONIN 3 MG TABLET PO (22:32)
--- NOTE | 2021-04-07 03:06 | NURSING ---
REVIEWED AND AGREE WITH WINDOWS APPLICATION ADMINISTRATOR'S FUNCTIONAL ASSESSMENT AND HANDOFF CHARTING.
[2021-04-07] MEDS: Menthol/Lanolin/Calamine/Znox 113 GM Tube 1 APPLIC TOPICAL ×2 (05:54→21:59)
[2021-04-07] MEDS: Heparin Injection (Vial) 5,000 UNIT/ML VIAL 5000 UNIT SC ×3 (05:54→21:58)
[2021-04-07] MEDS: Amiodarone 200 MG Tablet PO ×2 (08:08→21:57)
[2021-04-07] MEDS: Aspirin E.C. 81 MG Tablet PO (08:08)
[2021-04-07] MEDS: Magnesium Chloride 64 MG Delay Rel.Tablet 128 MG PO ×2 (08:09→21:58)
[2021-04-07] MEDS: Clopidogrel Bisulfate 75 MG Tablet PO (08:09)
[2021-04-07] MEDS: Calcium Carb/Vitamin D 1 TABLET Tablet PO (08:09)
[2021-04-07] MEDS: Famotidine 20 MG Tablet PO ×2 (08:09→21:58)
[2021-04-07] MEDS: Multivitamins,Ther W-Minerals Tablet 1 TABLET PO (08:09)
[2021-04-07 08:12] VITALS: BP 148/82; PULSE 68; RESP 18; TEMP 35.9; O2SAT 98
[2021-04-07 08:20] LABS: ALB/GLOB Ratio 0.9 RATIO (0.9-2.4); AST(SGOT) 164 U/L (15-37); Alanine Aminotransfer ALT/SGPT 209 U/L (16-61); Albumin, Serum 2.9 g/dL (3.2-5.0); Alkaline Phosphatase 89 U/L (45-117); Anion Gap 6 (5-15); BUN 11 mg/dL (7-18); BUN/Creat Ratio 20.3 RATIO (10-20); Calcium,Total 9.1 mg/dL (8.5-10.1); Chloride 103 mmol/L (98-107); Creatinine, Serum 0.54 mg/dL (0.70-1.30); EST Glomerular Filtration Rate 162 mL/min (>60); Est Glom Filt Rate - Afr Amer 195 mL/min (>60); Estimated Creatinine Clearance 154.13 ml/min; Globulin 3.1 g/dL (2.2-4.2); Glucose 90 mg/dL (74-106); Potassium 4.3 mmol/L (3.5-5.1); Sodium Level 135 mmol/L (136-145)
[2021-04-07 19:15] VITALS: BP 139/80; PULSE 80; RESP 16; TEMP 36.6; O2SAT 98
[2021-04-07 20:17] VITALS: PULSE 84; RESP 16; O2SAT 98
[2021-04-07] MEDS: Senna/Docusate Sodium 1 Tablet 2 TABLET PO (21:57)
[2021-04-07] MEDS: MELATONIN 3 MG TABLET PO (21:58)
[2021-04-08] MEDS: Acetaminophen 500 MG Tablet 1000 MG PO ×2 (01:48→18:52)
[2021-04-08] MEDS: Heparin Injection (Vial) 5,000 UNIT/ML VIAL 5000 UNIT SC ×3 (06:25→21:48)
[2021-04-08] MEDS: Menthol/Lanolin/Calamine/Znox 113 GM Tube 1 APPLIC TOPICAL ×2 (06:25→22:18)
[2021-04-08] MEDS: Calcium Carb/Vitamin D 1 TABLET Tablet PO (07:50)
[2021-04-08] MEDS: Clopidogrel Bisulfate 75 MG Tablet PO (07:50)
[2021-04-08] MEDS: Famotidine 20 MG Tablet PO ×2 (07:50→21:47)
[2021-04-08] MEDS: Magnesium Chloride 64 MG Delay Rel.Tablet 128 MG PO ×2 (07:50→21:46)
[2021-04-08] MEDS: Amiodarone 200 MG Tablet PO ×2 (07:50→21:48)
[2021-04-08] MEDS: Multivitamins,Ther W-Minerals Tablet 1 TABLET PO (07:50)
[2021-04-08] MEDS: Aspirin E.C. 81 MG Tablet PO (07:50)
[2021-04-08 08:16] VITALS: BP 132/76; PULSE 79; RESP 18; TEMP 37; O2SAT 95
[2021-04-08] MEDS: Mag Hydrox/Al Hydrox/Simeth 30 ML UDC PO (13:44)
[2021-04-08 18:57] VITALS: BP 149/80; PULSE 79; RESP 16; TEMP 36.7; O2SAT 97
--- NOTE | 2021-04-08 21:27 | NURSING ---
Pr ambulating unit twice with one assist and wheeled walker.
[2021-04-08] MEDS: MELATONIN 3 MG TABLET PO (21:49)
[2021-04-08 22:00] VITALS: PULSE 78; RESP 16; O2SAT 97
[2021-04-08] MEDS: Senna/Docusate Sodium 1 Tablet 2 TABLET PO (22:12)
[2021-04-09] MEDS: Heparin Injection (Vial) 5,000 UNIT/ML VIAL 5000 UNIT SC (06:49)
[2021-04-09] MEDS: Menthol/Lanolin/Calamine/Znox 113 GM Tube 1 APPLIC TOPICAL (06:49)
[2021-04-09] MEDS: Aspirin E.C. 81 MG Tablet PO (07:34)
[2021-04-09] MEDS: Calcium Carb/Vitamin D 1 TABLET Tablet PO (07:34)
[2021-04-09] MEDS: Multivitamins,Ther W-Minerals Tablet 1 TABLET PO (07:34)
[2021-04-09] MEDS: Clopidogrel Bisulfate 75 MG Tablet PO (07:35)
[2021-04-09] MEDS: Amiodarone 200 MG Tablet PO (07:35)
[2021-04-09] MEDS: Famotidine 20 MG Tablet PO (07:35)
[2021-04-09] MEDS: Magnesium Chloride 64 MG Delay Rel.Tablet 128 MG PO (07:36)
--- NOTE | 2021-04-09 07:43 | DCINST_ITS ---
Discharge Instructions Diet Discharge Diet: Low fat / Low cholesterol and 4000 mg Sodium Diet Activity Discharge Activity: May Shower Weight Bearing Status: Full weight bearing Additional Activity Instructions:: Do the exercises given to you by the therapists twice a day Dressing / Incision Call your doctor if your incision/area has: - (N/A) Call your doctor if you observe: Fever of 101 or Higher, Shortness of breath, Fainting spells, Swelling in the ankles, Chest pain, Increased palpitations (irregular heartbeat) and Calf discomfort Follow Up Care Please Follow Up With: Luis Branch NP, CYBER DEFENSE FORENSICS ANALYST-C When: 5-7 days Test Results: Test results from this visit will be discussed in further detail at your follow-up appointment, if applicable. Pending Tests Upon Discharge: none Discharge Plan Admission Admit Date/Time: 03/29/21 14:28 Primary Reason for Your Visit: Debility/generalized weakness due to chronic alcoholism Attending Provider: Kristina Zaragoza Primary Care Provider: Shay Del Rosario III Instructions Patient Instructions: Low-Salt Choices, Chronic Lung Disease: Tips for Quitting Smoking Additional Instructions / Restrictions: 1. Your heart was weak on the ECHO of your heart in November. A normal heart pumps 55-65% of the blood out every time it squeezes and in November your heart pumped only 45% of the blood out. The ECHO you had in the hospital on the most recent admission showed a 15% decrease and it now only squeezes 30 % of the blood out every time it pumps. This is more likely than not due to chronic alcohol abuse. Alcohol is toxic to the heart as well as the liver. You are at high risk for developing heart failure or CHF now. Eating a lot of salt causes your body to retain water and when this happens the water can accumulate in the lungs and cause shortness of breath with exertion, Shortness of breath when lying down, fatigue, palpitations and swelling in the ankles. 2. Some of your liver tests are persistently elevated now. This may be due to fatty infiltration of the liver due to chronic alcohol abuse. Fatty in filtration is reversible but, it can progress to cirrhosis if you continue to drink. 3. It is important to stick to a 1200 cc fluid restriction daily. This will keep the sodium close to normal. When the sodium is low you will get confused and if it gets low enough you can have seizures. 4. You had a CT scan of the chest in May of 2019 that showed a nodule in the lateral aspect of the right middle lobe. This was considered suspicious by the radiologist and a repeat CT scan in 3 months. You should talk to your PCP about this. Since you are a smoker you are at higher risk for lung cancer. 5. I strongly recommend you seek help to stop drinking. If you would like help to find a suitable situation for you to get the assistance you need please call the hospital and you can be put in touch with a cut and cover line worker. 7. Your prescriptions were faxed to [facility]. Discharge Orders/Prescriptions Prescriptions: New famotidine 20 mg Tablet 20 mg PO BID Qty: 60 RF: 0 Continued clopidogrel 75 mg tablet 75 mg PO DAILY Qty: 30 RF: 0 aspirin 81 mg tablet,delayed release (DR/EC) 81 mg PO DAILY Qty: 30 RF: 0 acetaminophen 500 MG tablet 1,000 mg PO Q8H PRN PRN (Reason: Pain 1-10 Or Fever) Qty: 120 RF: 0 nitroglycerin 0.4 mg tablet, sublingual 0.4 mg SUBLINGUAL Q5M PRN (Reason: Angina) Qty: 25 RF: 0 magnesium chloride [Mag 64] 64 mg tablet,delayed release (DR/EC) 128 mg PO BID Qty: 120 RF: 0 amiodarone 200 mg tablet 200 mg PO BID Qty: 180 RF: 3 Changed acidophilus-pectin, citrus 25 million cell -100 mg tablet 2 tab PO BID Qty: 120 RF: 0 calcium carbonate-vitamin D3 1 TABLET tablet 1 tab PO DAILY Qty: 30 RF: 0 Discontinued eeqclxdi-eem-BH-lycopen-lutein 1 EACH tablet 1 ea PO QODAY RF: 0 alum-mag hydroxide-simeth [Mag-Al Plus Extra Strength] 400-400-40 mg/5 mL Suspension 30 ml PO Q6H PRN PRN (Reason: DYSPEPSIA/INDIGESTION) Qty: 3000 RF: 0 melatonin 3 mg tablet 3 mg PO QHS RF: 0 nystatin [Nyamyc] 100,000 unit/gram powder 1 applic topical BID RF: 0 heparin (porcine) 5,000 unit/mL solution 5,000 unit subcut Q8 RF: 0 Calmoseptine 0.44-20.6 % ointment 1 applic topical BID RF: 0 Ensure Enlive 0.08 gram-1.5 kcal/mL liquid 60 ml PO 4X/DAY RF: 0 Firvanq 25 mg/mL recon soln 125 mg PO Q6 RF: 0 Referrals / Follow Up: Shay Del Rosario III, MD [Primary Care Provider] - Disposition Disposition (needs filled in before D/C Order can be placed): Home, self care
--- NOTE | 2021-04-09 08:09 | PCM.DC.SUM ---
Providers Date of Admission: 03/29/21 Primary Care Physician: Dr. Shay Del Rosario III, MD Reason For Visit: DEBILITY Diagnosis Discharge Diagnosis (1) Physical debility: Status: Acute Code(s): R53.81 - Other malaise (2) Declining functional status: Status: Acute Code(s): R53.81 - Other malaise (3) History of alcoholism: Status: Chronic Code(s): F10.21 - Alcohol dependence, in remission (4) Frequent falls: Status: Acute Code(s): R29.6 - Repeated falls (5) Orthostatic hypotension: Status: Acute Code(s): I95.1 - Orthostatic hypotension (6) Hyponatremia: Status: Acute Code(s): E87.1 - Hypo-osmolality and hyponatremia (7) Syndrome of inappropriate ADH (SIADH) secretion: Status: Acute Code(s): E22.2 - Syndrome of inappropriate secretion of antidiuretic hormone (8) Cognitive dysfunction, alcohol-related: Status: Acute Code(s): F10.97 - Alcohol use, unspecified with alcohol-induced persisting dementia (9) Abnormal LFTs: Status: Chronic Code(s): R94.5 - Abnormal results of liver function studies (10) 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 difficile colitis: Status: Resolved Code(s): A04.72 - Enterocolitis due to Clostridium difficile, not specified as recurrent (17) Hypomagnesemia: Status: Acute Code(s): E83.42 - Hypomagnesemia (18) Ventricular tachycardia: Status: Chronic Code(s): I47.2 - Ventricular tachycardia (19) Presence of automatic (implantable) cardiac defibrillator: Status: Chronic Code(s): Z95.810 - Presence of automatic (implantable) cardiac defibrillator (20) History of coronary artery stent placement: Status: Chronic Code(s): Z95.5 - Presence of coronary angioplasty implant and graft (21) Unintentional weight loss: Status: Acute Code(s): R63.4 - Abnormal weight loss (22) Incontinence of urine: Status: Acute Code(s): R32 - Unspecified urinary incontinence (23) Incontinence of feces: Status: Acute Code(s): R15.9 - Full incontinence of feces Medications at Discharge Home Medications amiodarone 200 mg tablet 200 mg PO BID #180 tab 06/15/20 acetaminophen 1,000 mg PO Q8H PRN PRN #120 tab 04/09/21 acidophilus-pectin, citrus 2 tab PO BID #120 tab 04/09/21 aspirin 81 mg PO DAILY #30 tab 04/09/21 calcium carbonate-vitamin D3 1 tab PO DAILY #30 tab 04/09/21 clopidogrel 75 mg PO DAILY #30 tab 04/09/21 famotidine 20 mg PO BID #60 tab 04/09/21 magnesium chloride [Mag 64] 128 mg PO BID #120 tab 04/09/21 nitroglycerin 0.4 mg SUBLINGUAL Q5M PRN #25 tab 04/09/21 Hospital Course Operations None Procedures None Summary of Care Provided Minutes Spent on Discharge: 47 Hospital Course: FRANCIS MORTON, is a 66 M with a PMH of ongoing alcoholism (longstanding), CAD, ongoing tobacco dependence, ventricular tachycardia, stage I mild COPD by gold classification, hyperlipidemia, multiple PTCA/stents, ischemic cardiomyopathy versus EtOH induced cardiomyopathy (more likely than not multifactorial), history of AICD placement, hypertension, recurrent hyponatremia and a hip fracture in November 2020 secondary to a fall. Thanh presented to the ED on 03/17/21 stating he fell 3 days prior to admission and had not been able to get around due to knee pain and generalized weakness. X-ray of the left knee done in the ER was normal. X-ray of the right knee showed severe degenerative arthrosis of the medial femorotibial compartment with severe joint space narrowing. Sodium at presentation to the emergency department was low at 120. He was admitted to the hospital for hyponatremia. TSH and a.m. cortisol were normal. Patient was mildly orthostatic with minimal symptoms. While in the acute side of the hospital he had an echocardiogram that showed a 30% ejection fraction, down from 45% in November 2020. There was global hypokinesis of the left ventricle. Transaminases were elevated and stayed elevated throughout his course in rehab indicating he likely now has fatty infiltration of the liver secondary to chronic alcohol abuse or possibly early cirrhosis. He has lost 20 lbs since November and this is unintentional. He had diarrhea at presentation to the hospital and the C. difficile antibody was positive but the toxin was negative. Despite that he was treated with oral vancomycin and probiotics. Diarrhea has resolved. The enteric pathogen panel was negative. He was transferred to the inpatient rehab unit at [facility] on 03/29/2021 for generalized weakness/debility more likely than not due to chronic alcoholism, poor diet, lack of exercise, unintentional weight loss and generally not taking care of himself. At presentation to the rehab unit the sodium was 132 and he was on 1500 cc fluid restriction. Sodium on recheck was 130 and the fluid restriction was changed to 1200 cc/day. 2 days prior to DC the sodium was 135. Transaminases have been consistently elevated but, the bilirubin and the AP are WNL. PT was normal. He is mildly orthostatic, even off Metoprolol, but he is asymptomatic. I suspect he may have neuropathy (including autonomic neuropathy) due to long standing alcohol abuse. He has had a CT brain in the past showing cerebellar atrophy. He has cognitive difficulties which he tries to minimize. 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 He routinely is not truthful when asked about his alcohol use when he comes to the ED/[facility] and he had had admissions that have not included thiamine/folic acid because he underreports his alcohol use to the ED and the admitting hospitalist. He is not compliant with his medication and had not been taking Plavix or Buspar at admission........he failed to fill these prescriptions for the past 2-3 months [address] pharmacy[address] ST worked with him to develop strategies to help with memory. Prior to discharge he was able to ambulate 350 feet with a wheeled walker on various surfaces. He was able to walk 165 feet with a straight cane at contact-guard assist/standby assist. He had a ascended/descended 13 steps with 1 rail and a straight cane at standby assist and he was able to complete a curb step with a wheeled walker at contact-guard assist. He required minimal assistance with lower body dressing but was standby assist for all other ADLs. He was discharged from rehab on 04/09/21. The SW set him up for PT/OT at [facility]. He refused ST. DME at [facility] included a straight cane, he already has a WW at home. He was instructed to follow up with Dr. Del Rosario in 5-7 days and he will also follow up with cardiology. He had a CT Scan of the chest in May 2019 that showed a 6 mm nodule in the lateral right middle lobe that was categorized as suspicious by the radiologist who recommended follow-up in 3 months. Although he maintains that he quit smoking in 2018 he continues to smoke. If he has not had a CAT scan this would be a consideration for the near future. Transaminases are elevated and this may be due to fatty infiltration of the liver secondary to chronic alcohol abuse but with his smoking history and a pulmonary nodule cannot rule out metastatic lung cancer. Alcohol cessation counselling was given during his admission to rehab but, he told the RN 1 day prior to DC that he had no plans to stop drinking. Physical Exam Const alert and oriented x3 Constitutional Narrative: sems anxious and fidgety about leaving today. General Appearance: cooperative HEENT normocephalic Eyes PERRL and EOMs intact bilaterally Neck supple Resp normal respiratory effort and clear to auscultation bilaterally Auscultation: diminished lung sounds Cardio regular rate, regular rhythm, S1 normal heart sound, S2 normal heart sound, no rub and no gallops GI normal to inspection, nondistended, normoactive bowel sounds, soft to palpation and non-tender GI Narrative: multiple small bruises in various stages of healing due to Lovenox shots Extremity no calf tenderness General Extremity: Negative for edema Skin General Skin Exam: no breakdown Rashes: no rashes Neuro CN's II-XII intact bilaterally Motor Exam: general weakness Psych Negative for denies homicidal ideation or denies suicidal ideation Appearance: appropriate Mood & Affect: anxious ABG / Lab / Microbiology Data Result Diagrams: 04/07/21 07:42 04/07/21 07:42 D/C Instructions Discharge Diet: Low fat / Low cholesterol and 4000 mg Sodium Diet Weight Bearing Status: Full weight bearing Additional Activity Instructions: Do the exercises given to you by the therapists twice a day Call your doctor if your incision/area has: - (N/A) Call your doctor if you observe: Fever of 101 or Higher, Shortness of breath, Fainting spells, Swelling in the ankles, Chest pain, Increased palpitations (irregular heartbeat) and Calf discomfort Pending Tests Upon Discharge: none Please Follow Up With: Luis Branch NP, [employer]ACHINE SET UP OPERATOR-C When: 5-7 days Meaningful Use Info Meaningful Use Diagnoses (Choose all that apply): None applicable Discharge Plan Admission Admit Date/Time: 03/29/21 14:28 Primary Reason for Your Visit: Debility/generalized weakness due to chronic alcoholism Attending Provider: Kristina Zaragoza Primary Care Provider: Shay Del Rosario III Instructions Patient Instructions: Low-Salt Choices, Chronic Lung Disease: Tips for Quitting Smoking Additional Instructions / Restrictions: 1. Your heart was weak on the ECHO of your heart in November. A normal heart pumps 55-65% of the blood out every time it squeezes and in November your heart pumped only 45% of the blood out. The ECHO you had in the hospital on the most recent admission showed a 15% decrease and it now only squeezes 30 % of the blood out every time it pumps. This is more likely than not due to chronic alcohol abuse. Alcohol is toxic to the heart as well as the liver. You are at high risk for developing heart failure or CHF now. Eating a lot of salt causes your body to retain water and when this happens the water can accumulate in the lungs and cause shortness of breath with exertion, Shortness of breath when lying down, fatigue, palpitations and swelling in the ankles. 2. Some of your liver tests are persistently elevated now. This may be due to fatty infiltration of the liver due to chronic alcohol abuse. Fatty infiltration is reversible but, it can progress to cirrhosis if you continue to drink. 3. It is important to stick to a 1200 cc fluid restriction daily. This will keep the sodium close to normal. When the sodium is low you will get confused and if it gets low enough you can have seizures. 4. You had a CT scan of the chest in May of 2019 that showed a nodule in the lateral aspect of the right middle lobe. This was considered suspicious by the radiologist and a repeat CT scan in 3 months. You should talk to your PCP about this. Since you are a smoker you are at higher risk for lung cancer. 5. I strongly recommend you seek help to stop drinking. If you would like help to find a suitable situation for you to get the assistance you need please call the hospital and you can be put in touch with a janitorial maintenance worker. 7. Your prescriptions were faxed to [facility]. Discharge Orders/Prescriptions Prescriptions: New famotidine 20 mg Tablet 20 mg PO BID Qty: 60 RF: 0 Continued clopidogrel 75 mg tablet 75 mg PO DAILY Qty: 30 RF: 0 aspirin 81 mg tablet,delayed release (DR/EC) 81 mg PO DAILY Qty: 30 RF: 0 acetaminophen 500 MG tablet 1,000 mg PO Q8H PRN PRN (Reason: Pain 1-10 Or Fever) Qty: 120 RF: 0 nitroglycerin 0.4 mg tablet, sublingual 0.4 mg SUBLINGUAL Q5M PRN (Reason: Angina) Qty: 25 RF: 0 magnesium chloride [Mag 64] 64 mg tablet,delayed release (DR/EC) 128 mg PO BID Qty: 120 RF: 0 amiodarone 200 mg tablet 200 mg PO BID Qty: 180 RF: 3 Changed acidophilus-pectin, citrus 25 million cell -100 mg tablet 2 tab PO BID Qty: 120 RF: 0 calcium carbonate-vitamin D3 1 TABLET tablet 1 tab PO DAILY Qty: 30 RF: 0 Discontinued glwgrrzq-zad-DB-lycopen-lutein 1 EACH tablet 1 ea PO QODAY RF: 0 alum-mag hydroxide-simeth [Mag-Al Plus Extra Strength] 400-400-40 mg/5 mL Suspension 30 ml PO Q6H PRN PRN (Reason: DYSPEPSIA/INDIGESTION) Qty: 3000 RF: 0 melatonin 3 mg tablet 3 mg PO QHS RF: 0 nystatin [Nyamyc] 100,000 unit/gram powder 1 applic topical BID RF: 0 heparin (porcine) 5,000 unit/mL solution 5,000 unit subcut Q8 RF: 0 Calmoseptine 0.44-20.6 % ointment 1 applic topical BID RF: 0 Ensure Enlive 0.08 gram-1.5 kcal/mL liquid 60 ml PO 4X/DAY RF: 0 Firvanq 25 mg/mL recon soln 125 mg PO Q6 RF: 0 Referrals / Follow Up: Shay Del Rosario III, MD [Primary Care Provider] - Disposition Disposition (needs filled in before D/C Order can be placed): Home, self care
[2021-04-09 08:18] VITALS: BP 124/60; PULSE 83; RESP 16; TEMP 36.7; O2SAT 96
[2021-04-09 10:03] VITALS: BP 124/60; PULSE 83; RESP 16; TEMP 36.7; O2SAT 96
== END 2021-04-09 10:00 | disposition home or self-care (01) | DRG 644 ==
PROVIDERS: Admitting Provider Internal Medicine; PCP Family Medicine; Visit Provider Internal Medicine
DX: E22.2 Syndrome of inappropriate secretion of antidiuretic hormone (principal); I42.6 Alcoholic cardiomyopathy; F10.27 Alcohol dependence with alcohol-induced persisting dementia; I95.1 Orthostatic hypotension; R29.6 Repeated falls; J44.9 Chronic obstructive pulmonary disease, unspecified; I25.5 Ischemic cardiomyopathy; F17.210 Nicotine dependence, cigarettes, uncomplicated; R91.1 Solitary pulmonary nodule; R15.9 Full incontinence of feces; R32 Unspecified urinary incontinence; I25.10 Atherosclerotic heart disease of native coronary artery without angina pectoris; E78.5 Hyperlipidemia, unspecified; I10 Essential (primary) hypertension; Z79.899 Other long term (current) drug therapy; Z95.810 Presence of automatic (implantable) cardiac defibrillator; Z95.5 Presence of coronary angioplasty implant and graft; Z79.02 Long term (current) use of antithrombotics/antiplatelets; Z79.82 Long term (current) use of aspirin; Z79.01 Long term (current) use of anticoagulants; Z91.81 History of falling
CPT/HCPCS: 36415; 80053; 82550; 83735; 84100; 84295; 85610; 92507; 92523; 97110; 97116; 97162; 97166; 97530; 97535; 97802; 97803; 99251; G0463

== ENCOUNTER 2021-04-10 20:05 | Emergency (ER) | payer MEDICARE, MEDICAID, SELFPAY ==
[2019-02-17 13:19] VITALS: BMI 29.2
[2021-03-17 11:11] VITALS: BMI 24.2
[2021-04-10 20:08] VITALS: BP 118/71; PULSE 83; RESP 17; TEMP 37.3; O2SAT 95; BMI 24.3
[2021-04-10 20:12] VITALS: BP 118/71; PULSE 85; RESP 16; O2SAT 95
[2021-04-10 21:54] LABS: Amphetamine Urine VISTA NEGATIVE (<1000 ng/mL); Barbiturate Urine VISTA NEGATIVE (< 200 ng/mL); Benzodiazepine Urine VISTA NEGATIVE (< 200 ng/mL); Cocaine Urine VISTA NEGATIVE (< 300 ng/mL); Ecstacy Urine VISTA NEGATIVE (< 500 ng/mL); Methadone Urine VISTA NEGATIVE (< 300 ng/mL); PCP Urine VISTA NEGATIVE (< 25 ng/mL); THC Urine VISTA NEGATIVE (< 50 ng/mL); Vista UDS pH Range 5
[2021-04-10 22:00] LABS: Absolute Lymphocyte Count 2.73 X10^3/uL (0.83-4.51); Basophil# 0.03 X10^3/uL; Basophil% 0.3 % (0-1); Eosinophils% 21.5 % (0-5); Hematocrit 33.7 % (40-54); Hemoglobin 12.4 g/dL (13.0-16.5); Lymphocyte # 2.73 X10^3/ul (0.83-4.51); Lymphocyte % 28.1 % (19-41); Mean Corp Hgb Conc 36.8 g/dL (32-36); Mean Corpuscular Hgb 36.3 pg (27.0-32.0); Mean Corpuscular Volume 98.5 fL (80-94); Mean Platelet Vol. 8.9 fl (6.2-12.0); Monocyte# 0.81 X10^3/uL; Monocyte% 8.3 % (0-10); NRBC Flagged by Analyzer 0 % (0-5); Neutrophil # 3.98 X10^3/uL (2.7-7.7); Neutrophil % 40.9 % (47-70); POSITIVE DIFFERENTIAL YES; Platelet Count 361 K/mm3 (150-450); RBC Distribution Width CV 13.4 % (11.6-14.6); RBC Distribution Width SD 48.7 fl (35.1-43.9); Red Blood Count 3.42 M/mm3 (4.6-6.2); White Blood Count 9.7 K/mm3 (4.4-11.0)
[2021-04-10 22:13] LABS: Anion Gap 10 (5-15); BUN 5 mg/dL (7-18); BUN/Creat Ratio 11.5 RATIO (10-20); Calcium,Total 8.4 mg/dL (8.5-10.1); Chloride 91 mmol/L (98-107); Creatinine, Serum 0.44 mg/dL (0.70-1.30); EST Glomerular Filtration Rate 208 mL/min (>60); Est Glom Filt Rate - Afr Amer 252 mL/min (>60); Estimated Creatinine Clearance 189.16 ml/min; Glucose 99 mg/dL (74-106); Sodium Level 125 mmol/L (136-145)
--- NOTE | 2021-04-10 22:15 | EX.ED.DYSGE1 ---
HPI History of Present Illness Chief Complaint: Substance Abuse Detail of Chief Complaint: depression, etoh use Informant: patient and EMS Onset/Context/Timing Onset: Month(s) (1) Context: Gradual Onset Timing: Continuous Quality: depression w/ suicidal thoughts Current Severity: Moderate Maximum Severity: Moderate Worsened by: nothing Relieved by: nothing Associated Symptoms Associated Symptoms: denies Narrative Narrative: Patient was discharged from the hospital yesterday after a 1-2-week stay for C. difficile including short stay in rehab. He is better now. He has history of alcoholism. He was drinking prior to arrival. Apparently he has had a lot of stressors recently, his house is in probate, his and was in hospice, and he is having feelings of wanting to be , but he states he does not have suicidal ideation or intent. He states he called EMS to come here and talk to a counselor. He does not have a regular counselor that he sees. He was on an antidepressant but they took him off of it while in rehab/hospital. He denies any other substance use. He states physically his body is feeling a lot better than it was when he was ill in the hospital and he has no physical symptoms at this time. [facility] Medical History Atherosclerotic heart disease of [place] coronary artery without angina pectoris Cellulitis and abscess of upper extremity Cerebellar atrophy Declining functional status Dehydration Femoral neck fracture History of alcoholism History of echocardiogram (04/03/17) History of stress test (02/16/10) HTN (hypertension) Hyperlipidemia Ischemic cardiomyopathy Macrocytosis Physical debility Physical debility Premature heartbeats Pulmonary nodule Stage 1 mild COPD by GOLD classification Tobacco user Urinary tract infection Ventricular tachycardia Home Medications amiodarone 200 mg tablet 200 mg PO BID #180 tab 06/15/20 [Rx Last Taken 11/14/20 17:30] acetaminophen 1,000 mg PO Q8H PRN PRN #120 tab 04/09/21 [Rx Last Taken Unknown] acidophilus-pectin, citrus 2 tab PO BID #120 tab 04/09/21 [Rx Last Taken Unknown] aspirin 81 mg PO DAILY #30 tab 04/09/21 [Rx Last Taken Unknown] calcium carbonate-vitamin D3 1 tab PO DAILY #30 tab 04/09/21 [Rx Last Taken Unknown] clopidogrel 75 mg PO DAILY #30 tab 04/09/21 [Rx Last Taken Unknown] famotidine 20 mg PO BID #60 tab 04/09/21 [Rx Last Taken Unknown] magnesium chloride [Mag 64] 128 mg PO BID #120 tab 04/09/21 [Rx Last Taken Unknown] nitroglycerin 0.4 mg SUBLINGUAL Q5M PRN #25 tab 04/09/21 [Rx Last Taken Unknown] Allergy/AdvReac Type Severity Reaction Status Date / Time Iodine and Iodide Containing Allergy Severe Rash Verified 04/10/21 20:08 Produc ezetimibe [From Zetia] AdvReac Severe Myalgias Verified 04/10/21 20:08 Kovshrv-Ttv-Veu Reductase AdvReac Severe Elevated Verified 04/10/21 20:08 Inhibitor Liver Enzymes buspirone [From BuSpar] AdvReac Orthostasis, Verified 04/10/21 20:08 hyponatremia duloxetine [From Cymbalta] AdvReac Orthostasis Verified 04/10/21 20:08 /hyponatrem ia Family History Grandmother Myocardial infarction Grandfather Myocardial infarction Surgical History History of coronary artery stent placement (02/17/19) History of left heart catheterization (LHC) (01/21/19) Hx of knee surgery Presence of automatic (implantable) cardiac defibrillator (10/31/17) Social History household members: family and other details: currently living with his father and his brother Donnell. housing: house number of children: 1 current occupational status: unemployed Smoking Status: Current every day smoker tobacco type: cigarettes how long ago did patient quit smokin11/2017 alcohol intake: current alcohol intake frequency: 3 or more drinks per day Alcohol type: wine substance use type: other details: Has abused RX Ativan in the past well-balanced diet: other details: says that he gets meals on wheels and they pile upin the refrigerator caffeine: No during the past year weight has: other details: decreased 20 lbs since November what type of physical activity do you participate in: none duration: < 15 minutes/day seatbelt use: always do you feel safe at home: Yes ROS ROS ED Constitutional Constitutional ED: Denies chills or fever(s) Eyes Eyes: Denies change in vision or diplopia ENT ENT ED: Denies rhinorrhea or sore throat Cardiovascular Cardiovascular: Denies chest pain or palpitations Respiratory/Chest Respiratory/Chest: Denies cough or dyspnea Gastrointestinal Gastrointestinal: Denies abdominal pain, diarrhea, nausea or vomiting Genitourinary Genitourinary ED: Denies dysuria or hematuria Musculoskeletal Musculoskeletal: Denies back pain or neck pain Integumentary Denies abscess or rash Neurologic Neurologic: Denies headache(s), paresthesias or weakness Psychiatric Psychiatric: Reports as per HPI, depression, hopelessness and suicidal thoughts; Denies hallucinations, homicidal ideation or suicidal ideation EXAM Physical Exam Const Vital Signs: 04/10/21 20:08 04/10/21 20:12 04/10/21 22:53 Temperature 99.1 F Temperature Source Oral Pulse Rate 83 85 80 Respiratory Rate 17 16 17 Blood Pressure 118/71 118/71 98/60 Blood Pressure Mean 86 86 72 Pulse Ox 95 95 97 Oxygen Delivery Method Room Air Room Air Room Air 04/10/21 23:46 04/11/21 02:40 04/11/21 04:00 Temperature 97.7 F L Temperature Source Temporal Pulse Rate 80 Respiratory Rate 14 16 15 Blood Pressure 123/66 H Blood Pressure Mean 85 Pulse Ox 95 Oxygen Delivery Method Room Air Room Air 04/11/21 05:00 04/11/21 06:18 Temperature 97.7 F L Temperature Source Temporal Pulse Rate 64 Respiratory Rate 14 17 Blood Pressure Blood Pressure Mean Pulse Ox 98 Oxygen Delivery Method Positive well nourished and well developed General Appearance ED: well developed and NAD HEENT Reports moist mucous membranes normocephalic and atraumatic Eyes PERRL and EOMs intact bilaterally Neck full ROM and supple Resp normal respiratory effort and clear to auscultation bilaterally Cardio regular rate, regular rhythm and no murmurs GI non-tender and non-distended Auscultation: normoactive bowel sounds Palpation: soft Back/Spine no CVA tenderness General Back: other FROM Extremity normal to inspection General Extremety ED: Negative for edema, pulses abnormal or tenderness General Extremity: Negative for edema or pulses abnormal Neuro oriented x3, CN's II-XII intact bilaterally and no sensory deficits noted Sensorium / Orientation: awake and alert Motor Exam: strength 5/5 throughout Psych mental status grossly normal, thought process normal, cooperative, speech normal, activity/motor behavior normal, denies hallucinations, denies homicidal ideation and denies suicidal ideation Mood & Affect: depressed Insight: insight good Judgement: judgement good Skin no rashes or lesions noted and no wounds MDM MDM MDM Narrative Medical decision making narrative: Patient having suicidal thoughts and wanting to talk with crisis, however intoxicated. Labs were obtained, his sodium is 125 but he really is asymptomatic from it. He was a little lower than that when he was admitted and dehydrated with C. difficile. Other than an alcohol of 253, his work-up is negative and he is medically cleared. He was observed in the emergency department and treated with normal saline at a rate of 150 cc/h overnight. After 9 hours or so we repeated his sodium and alcohol levels prior to contacting crisis. His sodium is now normal at 132 and his alcohol is down in the 50s. I reevaluated him. He is clinically sober and conversive, pleasant, cooperative. He states he is not feeling suicidal, he apologizes, and states that I was just drunk. He occasionally drinks heavily like this, but he does not every day. He admits that he probably drinks more than he should. He states that he has no means to kill himself and does not intend on doing that and contracts for safety. He is amenable to following up with a counselor, he was seen 1 at the hospice center where his was before she . He is referred to the counseling center and discharged stable condition. Lab Data Attestation: I reviewed the patient's lab results. Labs: Laboratory Results - last 24 hr 04/10/21 04/10/21 04/10/21 21:00 21:45 21:45 WBC 9.7 RBC 3.42 L Hgb 12.4 L Hct 33.7 L MCV 98.5 H MCH 36.3 H MCHC 36.8 H RDW Std Deviation 48.7 H RDW Coeff of [place] 13.4 Plt Count 361 MPV 8.9 Immature Gran % (Auto) 0.900 Neut % (Auto) 40.9 L Lymph % (Auto) 28.1 [place] % (Auto) 8.3 Eos % (Auto) 21.5 H Baso % (Auto) 0.3 Absolute Neuts (auto) 4.0 Absolute Lymphs (auto) 2.73 Nucleated RBC % 0 Differential Comment SCANNED Diff Path Review May foll Sodium 125 L Potassium 4.0 Chloride 91 L Carbon Dioxide 24.0 Anion Gap 10 BUN 5 L Creatinine 0.44 L Estim Creat Clear Calc 189.16 Est GFR (MDRD) Af Amer 252 Est GFR (MDRD) Non-Af 208 BUN/Creatinine Ratio 11.5 Glucose 99 Calcium 8.4 L Urine Opiates Screen NEGATIVE Urine Methadone Screen NEGATIVE Ur Barbiturates Screen NEGATIVE Ur Phencyclidine Scrn NEGATIVE Ur Amphetamines Screen NEGATIVE U Methamphetamin-MDMA NEGATIVE U Benzodiazepines Scrn NEGATIVE Urine Cocaine Screen NEGATIVE U Cannabinoids Screen NEGATIVE Ur Drug Screen Comment Ethyl Alcohol 04/10/21 04/11/21 04/11/21 21:45 05:27 05:27 WBC RBC Hgb Hct MCV MCH MCHC RDW Std Deviation RDW Coeff of [place] Plt Count MPV Immature Gran % (Auto) Neut % (Auto) Lymph % (Auto) [place] % (Auto) Eos % (Auto) Baso % (Auto) Absolute Neuts (auto) Absolute Lymphs (auto) Nucleated RBC % Differential Comment Diff Path Review Sodium 132 L Potassium 4.3 Chloride 98 Carbon Dioxide 24.0 Anion Gap 10 BUN 3 L Creatinine 0.42 L Estim Creat Clear Calc 198.16 Est GFR (MDRD) Af Amer 262 Est GFR (MDRD) Non-Af 216 BUN/Creatinine Ratio 7.1 L Glucose 82 Calcium 8.6 Urine Opiates Screen Urine Methadone Screen Ur Barbiturates Screen Ur Phencyclidine Scrn Ur Amphetamines Screen U Methamphetamin-MDMA U Benzodiazepines Scrn Urine Cocaine Screen U Cannabinoids Screen Ur Drug Screen Comment Ethyl Alcohol 253.0 52.0 Discharge Plan Triage Chief Complaint: Substance Abuse ED Provider: Rodriguez Up Dx/Rx/DC Orders Clinical Impression: Suicidal thoughts, Alcohol intoxication, Depression Instructions: ED Depression, ED Alcohol Abuse Prescriptions: No Action famotidine 20 mg Tablet 20 mg PO BID Qty: 60 RF: 0 clopidogrel 75 mg tablet 75 mg PO DAILY Qty: 30 RF: 0 aspirin 81 mg tablet,delayed release (DR/EC) 81 mg PO DAILY Qty: 30 RF: 0 acetaminophen 500 MG tablet 1,000 mg PO Q8H PRN PRN (Reason: Pain 1-10 Or Fever) Qty: 120 RF: 0 nitroglycerin 0.4 mg tablet, sublingual 0.4 mg SUBLINGUAL Q5M PRN (Reason: Angina) Qty: 25 RF: 0 acidophilus-pectin, citrus 25 million cell -100 mg tablet 2 tab PO BID Qty: 120 RF: 0 calcium carbonate-vitamin D3 1 TABLET tablet 1 tab PO DAILY Qty: 30 RF: 0 magnesium chloride [Mag 64] 64 mg tablet,delayed release (DR/EC) 128 mg PO BID Qty: 120 RF: 0 amiodarone 200 mg tablet 200 mg PO BID Qty: 180 RF: 3 Primary Care Provider: Shay Del Rosario III Referrals: Counseling,Center [GROUP OF PHYSICIANS] - (Call for appointment) Shay Del Rosario III, MD [Primary Care Provider] - Disposition Disposition: Home, self care
[2021-04-10 22:34] LABS: Differential Comment SCANNED; Differential Indicated SCAN CRITERIA MET; Eosinophil# 2.09 X10^3/uL
[2021-04-10 22:53] VITALS: BP 98/60; PULSE 80; RESP 17; O2SAT 97
[2021-04-10 23:46] VITALS: RESP 14
[2021-04-11] MEDS: 0.9% Normal Saline 1,000 ML 150 ML IV (00:58)
[2021-04-11 02:40] VITALS: BP 123/66; PULSE 80; RESP 16; TEMP 36.5; O2SAT 95
[2021-04-11 04:00] VITALS: RESP 15
[2021-04-11 05:00] VITALS: RESP 14
[2021-04-11 05:55] LABS: Anion Gap 10 (5-15); BUN 3 mg/dL (7-18); BUN/Creat Ratio 7.1 RATIO (10-20); Calcium,Total 8.6 mg/dL (8.5-10.1); Chloride 98 mmol/L (98-107); Creatinine, Serum 0.42 mg/dL (0.70-1.30); EST Glomerular Filtration Rate 216 mL/min (>60); Est Glom Filt Rate - Afr Amer 262 mL/min (>60); Estimated Creatinine Clearance 198.16 ml/min; Glucose 82 mg/dL (74-106); Potassium 4.3 mmol/L (3.5-5.1); Sodium Level 132 mmol/L (136-145)
[2021-04-11 06:18] VITALS: PULSE 64; RESP 17; TEMP 36.5; O2SAT 98
--- NOTE | 2021-04-11 06:18 | ED.RN ---
CALLED CRISIS FOR THE PATIENT TO BE EVALUATED
--- NOTE | 2021-04-11 06:42 | NURSING ---
FAXED CHART TO CRISIS
[2021-04-11 07:08] VITALS: BP 123/77
[2021-04-11 07:22] VITALS: BP 137/88; PULSE 91; RESP 16; O2SAT 95
[2021-04-11 13:17] LABS: Pathologist Review Reviewed
== END 2021-04-11 07:23 | disposition home or self-care (01) ==
PROVIDERS: Emergency Provider Emergency Medicine; PCP Family Medicine
DX: F32.9 Major depressive disorder, single episode, unspecified (principal); R45.851 Suicidal ideations; F10.129 Alcohol abuse with intoxication, unspecified; Y90.8 Blood alcohol level of 240 mg/100 ml or more; I25.10 Atherosclerotic heart disease of native coronary artery without angina pectoris; I10 Essential (primary) hypertension; E78.5 Hyperlipidemia, unspecified; J44.9 Chronic obstructive pulmonary disease, unspecified; F17.210 Nicotine dependence, cigarettes, uncomplicated; Z79.899 Other long term (current) drug therapy
CPT/HCPCS: 80048; 80307; 82077; 85025; 96360; 96361; 99285; J7030; A4216

== ENCOUNTER 2021-04-15 00:07 | Inpatient (IN) | payer MEDICARE, MEDICAID, SELFPAY ==
[2019-02-17 13:19] VITALS: BMI 29.2
[2021-04-15] VITALS (9 sets, daily range): BP systolic 124–149; BP diastolic 63–75; PULSE 70–106; RESP 15–26; TEMP 35.6–37.1; O2SAT 93–98; BMI 28.0; BMI 24.0
--- NOTE | 2021-04-15 00:21 | CT_ITS ---
STUDY: CT BRAIN WITHOUT CONTRAST REASON FOR EXAM: Male, 66 years old. Weakness RADIATION DOSAGE (If Supplied By Facility): CTDIvol = ( 44.99 ) mGy, DLP = ( 829.85 ) mGycm TECHNIQUE: Transaxial CT imaging of the brain was performed without administration of intravenous contrast material. Individualized dose optimization techniques were used for this CT. COMPARISON: 11/15/2020 CT head FINDINGS: Normal soft tissue structures. Normal calvarium. There is mild cerebral atrophy with widening of the extra-axial spaces and ventricular dilatation. There are areas of decreased attenuation within the white matter tracts of the supratentorial brain, consistent with microvascular disease changes. Normal basal ganglia and thalami. Normal brainstem. There is mild cerebellar atrophy. There is no intracranial hemorrhage. There are no findings of an acute ischemic infarction. Normal visualized paranasal sinuses. CT/Brain/Head without Contrast IMPRESSION: Atrophy no evidence of acute hemorrhage infarct or edema. No significant change since the prior study. Electronically Signed: Reanna Mullins MD at 1:49 EDT Tel , Service support ,
--- NOTE | 2021-04-15 00:22 | EKG12_ITS ---
Test Reason : WEAKNESS Blood Pressure : / mmHG Vent. Rate : 091 BPM Atrial Rate : 091 BPM P-R Int : 186 ms QRS Dur : 104 ms QT Int : 392 ms P-R-T Axes : 074 079 095 degrees QTc Int : 482 ms Normal sinus rhythm Nonspecific T wave abnormality Abnormal ECG Confirmed by GISSELLE JEFFERSON, VALERIE ([id number]), content editor SUSAN BLACKMAN ([id number]) on 04/19/2021 9:26:59 AM Referred By: JAYCE Confirmed By:VALERIE PITTS MD
[2021-04-15 00:30] LABS: Absolute Lymphocyte Count 2.76 X10^3/uL (0.83-4.51); Absolute Neutrophil Count 6.4 X10^3/uL (2.0-7.7); Basophil# 0.06 X10^3/uL; Basophil% 0.6 % (0-1); Eosinophil# 0.05 X10^3/uL; Eosinophils% 0.5 % (0-5); Hematocrit 38.1 % (40-54); Hemoglobin 13.7 g/dL (13.0-16.5); Lymphocyte # 2.76 X10^3/ul (0.83-4.51); Mean Corpuscular Hgb 35.1 pg (27.0-32.0); Mean Corpuscular Volume 97.7 fL (80-94); Mean Platelet Vol. 8.7 fl (6.2-12.0); Monocyte# 1.29 X10^3/uL; Monocyte% 12.2 % (0-10); NRBC Flagged by Analyzer 0 % (0-5); Neutrophil % 60.2 % (47-70); Platelet Count 386 K/mm3 (150-450); RBC Distribution Width CV 14.1 % (11.6-14.6); RBC Distribution Width SD 50.7 fl (35.1-43.9); White Blood Count 10.6 K/mm3 (4.4-11.0)
[2021-04-15 00:39] LABS: Mucous, Urine 0 SEEN /hpf (<or=2+); Red Blood Cells-Urine 0 SEEN /hpf (0-5); Squamous Epithelial Cells - UA 0 SEEN /hpf (0-5); White Blood Cells 0 SEEN /hpf (0-5)
[2021-04-15 00:40] LABS: Color, Urine Yellow (Yellow); Glucose, Dipstick Normal (Normal); Ketone-Dipstick Negative (Negative); Leukocyte Esterase-Dipstick Negative /ul (Negative); Nitrite-Dipstick Negative (Negative); Occult Blood-Urine Negative /ul (Negative); Protein-Dipstick 15 mg/dl (Negative); Urine Bilirubin Dipstick Negative (Negative); Urine Clarity Clear (Clear); Urine Urobilinogen Normal (Normal); Urine pH 6.5 (5.0 - 8.0)
[2021-04-15 00:49] LABS: Bacteria RARE /hpf (None Seen)
[2021-04-15 00:56] LABS: Amphetamine Urine VISTA NEGATIVE (<1000 ng/mL); Barbiturate Urine VISTA NEGATIVE (< 200 ng/mL); Benzodiazepine Urine VISTA NEGATIVE (< 200 ng/mL); Cocaine Urine VISTA NEGATIVE (< 300 ng/mL); Ecstacy Urine VISTA NEGATIVE (< 500 ng/mL); Methadone Urine VISTA NEGATIVE (< 300 ng/mL); PCP Urine VISTA NEGATIVE (< 25 ng/mL); THC Urine VISTA NEGATIVE (< 50 ng/mL); Vista UDS pH Range 6
--- NOTE | 2021-04-15 01:00 | RAD_ITS ---
STUDY: X-RAY CHEST REASON FOR EXAM: Male, 66 years old. Sob TECHNIQUE: Single AP portable view x2 of the chest. COMPARISON: 11/15/2020 chest x-ray FINDINGS: There is a defibrillator overlying the left chest with lead overlying the heart. Stable since prior study. There is no demonstrated pleural abnormality. There is mild cardiac enlargement. Normal mediastinum and mady. Normal visualized pulmonary arteries. Normal visualized aortic arch and descending thoracic aorta. There are diffuse degenerative changes of the visualized thoracic spine. Normal visualized ribs, clavicles, and shoulders. There is no demonstrated abnormality of the visualized soft tissue structures of the upper abdomen. RAD/Chest 1 View (Portable) IMPRESSION: Degenerative changes, as described above. Stable appearance of the left-sided defibrillator. No demonstrated acute cardiopulmonary process. Electronically Signed: Reanna Mullins MD at 1:58 EDT Tel , Service support ,
[2021-04-15 01:02] LABS: Anion Gap 12 (5-15); BUN 2 mg/dL (7-18); BUN/Creat Ratio 3.3 RATIO (10-20); Calcium,Total 9.1 mg/dL (8.5-10.1); Chloride 96 mmol/L (98-107); Creatinine, Serum 0.61 mg/dL (0.70-1.30); EST Glomerular Filtration Rate 140 mL/min (>60); Est Glom Filt Rate - Afr Amer 169 mL/min (>60); Estimated Creatinine Clearance 120.73 ml/min; Glucose 99 mg/dL (74-106); Potassium 5.4 mmol/L (3.5-5.1); Sodium Level 132 mmol/L (136-145)
--- NOTE | 2021-04-15 01:03 | EX.ED.DYSGE1 ---
HPI History of Present Illness Chief Complaint: General Illness Narrative Narrative: 66-year-old male presenting stating that he does not feel well. He states he has a tingling sensation below his neck bilaterally. He states this has been coming and going since yesterday. He denies upper extremity weakness. Denies chest pain or shortness of breath. He states he recently was discharged from rehab. He states he was in rehab due to inability to ambulate. He states he has not been able to walk for the past day. He complains of insomnia. He admits to alcohol use tonight, denies drug use. [facility] Medical History Atherosclerotic heart disease of [place] coronary artery without angina pectoris Cellulitis and abscess of upper extremity Cerebellar atrophy Coronary artery disease Declining functional status Dehydration Femoral neck fracture History of alcoholism History of echocardiogram (04/03/17) History of stress test (02/16/10) HTN (hypertension) Hyperlipidemia Ischemic cardiomyopathy Macrocytosis Myocardial infarct Physical debility Physical debility Premature heartbeats Pulmonary nodule Stage 1 mild COPD by GOLD classification Tobacco user Urinary tract infection Ventricular tachycardia Home Medications amiodarone 200 mg tablet 200 mg PO BID #180 tab 06/15/20 [Rx Last Taken 11/14/20 17:30] acetaminophen 1,000 mg PO Q8H PRN PRN #120 tab 04/09/21 [Rx Last Taken Unknown] acidophilus-pectin, citrus 2 tab PO BID #120 tab 04/09/21 [Rx Last Taken Unknown] aspirin 81 mg PO DAILY #30 tab 04/09/21 [Rx Last Taken Unknown] calcium carbonate-vitamin D3 1 tab PO DAILY #30 tab 04/09/21 [Rx Last Taken Unknown] clopidogrel 75 mg PO DAILY #30 tab 04/09/21 [Rx Last Taken Unknown] famotidine 20 mg PO BID #60 tab 04/09/21 [Rx Last Taken Unknown] magnesium chloride [Mag 64] 128 mg PO BID #120 tab 04/09/21 [Rx Last Taken Unknown] nitroglycerin 0.4 mg SUBLINGUAL Q5M PRN #25 tab 04/09/21 [Rx Last Taken Unknown] Allergy/AdvReac Type Severity Reaction Status Date / Time Iodine and Iodide Containing Allergy Severe Rash Verified 04/15/21 00:16 Produc ezetimibe [From Zetia] AdvReac Severe Myalgias Verified 04/15/21 00:16 Qrcmnbl-Obn-Pkp Reductase AdvReac Severe Elevated Verified 04/15/21 00:16 Inhibitor Liver Enzymes buspirone [From BuSpar] AdvReac Orthostasis, Verified 04/15/21 00:16 hyponatremia duloxetine [From Cymbalta] AdvReac Orthostasis Verified 04/15/21 00:16 /hyponatrem ia Family History Grandmother Myocardial infarction Grandfather Myocardial infarction Surgical History History of coronary artery stent placement (02/17/19) History of left heart catheterization (LHC) (01/21/19) Hx of knee surgery Presence of automatic (implantable) cardiac defibrillator (10/31/17) Social History household members: family and other details: currently living with his father and his brother Donnell. housing: house number of children: 1 current occupational status: unemployed Smoking Status: Current every day smoker tobacco type: cigarettes how long ago did patient quit smokin11/2017 alcohol intake: current alcohol intake frequency: 3 or more drinks per day Alcohol type: wine substance use type: other details: Has abused RX Ativan in the past well-balanced diet: other details: says that he gets meals on wheels and they pile upin the refrigerator caffeine: No during the past year weight has: other details: decreased 20 lbs since November what type of physical activity do you participate in: none duration: < 15 minutes/day seatbelt use: always do you feel safe at home: Yes ROS ROS ED Constitutional Constitutional ED: Denies fever(s) Eyes Eyes: Denies change in vision ENT ENT ED: Denies rhinorrhea or sore throat Cardiovascular Cardiovascular: Denies chest pain or palpitations Respiratory/Chest Respiratory/Chest: Denies cough or dyspnea Gastrointestinal Gastrointestinal: Denies abdominal pain, diarrhea, nausea or vomiting Genitourinary Genitourinary ED: Denies dysuria Musculoskeletal Musculoskeletal: Denies myalgias Integumentary Denies rash Neurologic Neurologic: Denies headache(s) Psychiatric Psychiatric: Denies suicidal thoughts EXAM Physical Exam Const Vital Signs: 04/15/21 00:08 04/15/21 00:17 Temperature 96.0 F L Temperature Source Temporal Pulse Rate 92 Respiratory Rate 15 Respiratory Effort Normal Non-Labored Respiratory Pattern Normal Blood Pressure 129/75 H Blood Pressure Mean 93 Pulse Ox 98 Oxygen Delivery Method Room Air Positive well nourished and well developed General Appearance ED: well developed HEENT Reports normocephalic and head/scalp atraumatic Eyes PERRL and EOMs intact bilaterally Neck supple General: Negative for tenderness Chest Wall inspection of chest normal Resp normal respiratory effort and clear to auscultation bilaterally Cardio regular rate and regular rhythm GI non-tender and non-distended Palpation: soft; Negative for guarding or rebound tenderness present no CVA tenderness Extremity normal to inspection Neuro oriented x3 Neuro Narrative: bilateral lower extremity weakness Sensorium / Orientation: alert Psych mental status grossly normal MDM MDM MDM Narrative Medical decision making narrative: Labs are unremarkable other than alcohol level 348. CT head shows no acute abnormality. Patient states he is unable to care for himself at home. He has been unable to walk for the past 1 to 2 days. He states home health was supposed to arrange home care and this has not been done. He is agreeable to admission for possible placement. Discussed with hospitalist. Lab Data Attestation: I reviewed the patient's lab results. Labs: Laboratory Results - last 24 hr 04/15/21 04/15/21 04/15/21 00:21 00:21 00:21 WBC 10.6 RBC 3.90 L Hgb 13.7 Hct 38.1 L MCV 97.7 H MCH 35.1 H MCHC 36.0 RDW Std Deviation 50.7 H RDW Coeff of [place]oli 14.1 Plt Count 386 MPV 8.7 Immature Gran % (Auto) 0.500 Neut % (Auto) 60.2 Lymph % (Auto) 26.0 [place] % (Auto) 12.2 H Eos % (Auto) 0.5 Baso % (Auto) 0.6 Absolute Neuts (auto) 6.4 Absolute Lymphs (auto) 2.76 Nucleated RBC % 0 Sodium 132 L Potassium 5.4 H Chloride 96 L Carbon Dioxide 24.0 Anion Gap 12 BUN 2 L Creatinine 0.61 L Estim Creat Clear Calc 120.73 Est GFR (MDRD) Af Amer 169 Est GFR (MDRD) Non-Af 140 BUN/Creatinine Ratio 3.3 L Glucose 99 Calcium 9.1 Troponin I < 0.015 Urine Color Urine Clarity Urine pH Ur Specific [place] Urine Protein Urine Glucose (UA) Urine Ketones Urine Occult Blood Urine Nitrite Urine Bilirubin Urine Urobilinogen Ur Leukocyte Esterase Urine RBC Urine WBC Ur Squamous Epith Cells Urine Bacteria Urine Mucus Urine Opiates Screen Urine Methadone Screen Ur Barbiturates Screen Ur Phencyclidine Scrn Ur Amphetamines Screen U Methamphetamin-MDMA U Benzodiazepines Scrn Urine Cocaine Screen U Cannabinoids Screen Ur Drug Screen Comment Ethyl Alcohol 348.0 H* 04/15/21 04/15/21 00:35 00:35 WBC RBC Hgb Hct MCV MCH MCHC RDW Std Deviation RDW Coeff of [place]oli Plt Count MPV Immature Gran % (Auto) Neut % (Auto) Lymph % (Auto) [place] % (Auto) Eos % (Auto) Baso % (Auto) Absolute Neuts (auto) Absolute Lymphs (auto) Nucleated RBC % Sodium Potassium Chloride Carbon Dioxide Anion Gap BUN Creatinine Estim Creat Clear Calc Est GFR (MDRD) Af Amer Est GFR (MDRD) Non-Af BUN/Creatinine Ratio Glucose Calcium Troponin I Urine Color Yellow Urine Clarity Clear Urine pH 6.5 Ur Specific [place] 1.010 Urine Protein 15 H Urine Glucose (UA) Normal Urine Ketones Negative Urine Occult Blood Negative Urine Nitrite Negative Urine Bilirubin Negative Urine Urobilinogen Normal Ur Leukocyte Esterase Negative Urine RBC 0 SEEN Urine WBC 0 SEEN Ur Squamous Epith Cells 0 SEEN Urine Bacteria RARE Urine Mucus 0 SEEN Urine Opiates Screen NEGATIVE Urine Methadone Screen NEGATIVE Ur Barbiturates Screen NEGATIVE Ur Phencyclidine Scrn NEGATIVE Ur Amphetamines Screen NEGATIVE U Methamphetamin-MDMA NEGATIVE U Benzodiazepines Scrn NEGATIVE Urine Cocaine Screen NEGATIVE U Cannabinoids Screen NEGATIVE Ur Drug Screen Comment Ethyl Alcohol Radiography Chest X-Ray - ED: 1 View, Read by ED Physician, Read by Radiologist and No Acute Disease Diagnostic Testing: Radiology Impression Brain CT 04/15/21 00:21 IMPRESSION: Atrophy no evidence of acute hemorrhage infarct or edema. No significant change since the prior study. Electronically Signed: Reanna Mullins MD at 1:49 EDT Tel , Service support , Chest X-Ray 04/15/21 01:00 IMPRESSION: Degenerative changes, as described above. Stable appearance of the left-sided defibrillator. No demonstrated acute cardiopulmonary process. Electronically Signed: Reanna Mullins MD at 1:58 EDT Tel , Service support , EKG Initial EKG: Attestation: I personally reviewed and interpreted this EKG as follows: Interpretation: Sinus Rhythm and No Acute Injury Pattern Discharge Plan Triage Chief Complaint: General Illness ED Provider: Elizabeth Segovia Dx/Rx/DC Orders Clinical Impression: Declining functional status, Alcohol intoxication Prescriptions: No Action famotidine 20 mg Tablet 20 mg PO BID Qty: 60 RF: 0 clopidogrel 75 mg tablet 75 mg PO DAILY Qty: 30 RF: 0 aspirin 81 mg tablet,delayed release (DR/EC) 81 mg PO DAILY Qty: 30 RF: 0 acetaminophen 500 MG tablet 1,000 mg PO Q8H PRN PRN (Reason: Pain 1-10 Or Fever) Qty: 120 RF: 0 nitroglycerin 0.4 mg tablet, sublingual 0.4 mg SUBLINGUAL Q5M PRN (Reason: Angina) Qty: 25 RF: 0 acidophilus-pectin, citrus 25 million cell -100 mg tablet 2 tab PO BID Qty: 120 RF: 0 calcium carbonate-vitamin D3 1 TABLET tablet 1 tab PO DAILY Qty: 30 RF: 0 magnesium chloride [Mag 64] 64 mg tablet,delayed release (DR/EC) 128 mg PO BID Qty: 120 RF: 0 amiodarone 200 mg tablet 200 mg PO BID Qty: 180 RF: 3 Primary Care Provider: Care Physician,No Primary Referrals: Care Physician,No Primary [Primary Care Provider] - Disposition Disposition: Acute Care Hospital [facility]
--- NOTE | 2021-04-15 02:28 | PCM.HP.STD ---
HPI - General General Date of Admission: 04/15/21 HPI Narrative FRANCIS MORTON, is a 66 M with a significant history of heart failure with reduced ejection fraction; CAD status post stent and alcoholism who presents with tingling sensation at the upper part of his body. Reportedly his symptoms started about 2 days ago. He is unable to describe further. He reported he is unable to walk. He was recently discharged from the rehabilitation unit at a hospital ([facility]) with a plan to follow-up outpatient with physical therapy. He reported that once discharge from the rehabilitation unit he is unable to walk at home. He receives of food and falls. Is unable to take of himself. Further patient is is an alcoholic. Is unable to describe how much of alcohol he drinks per day. Patient was admitted to the acute care of [facility] on 03/17/2021 with inability to walk after the fall. He was diagnosed with debility. Patient was discharged 03/29/2021 2 rehabilitation unit. He was discharged from the rehabilitation unit on 04/09/2021. He presented to the emergency department on 04/10/2021 with suicidal thoughts and alcohol intoxication. [facility] Medical History Atherosclerotic heart disease of [place] coronary artery without angina pectoris Cellulitis and abscess of upper extremity Cerebellar atrophy Coronary artery disease Declining functional status Dehydration Femoral neck fracture History of alcoholism History of echocardiogram (04/03/17) History of stress test (02/16/10) HTN (hypertension) Hyperlipidemia Ischemic cardiomyopathy Macrocytosis Myocardial infarct Physical debility Physical debility Premature heartbeats Pulmonary nodule Stage 1 mild COPD by GOLD classification Tobacco user Urinary tract infection Ventricular tachycardia Home Medications amiodarone 200 mg tablet 200 mg PO BID #180 tab 06/15/20 [Rx Last Taken 11/14/20 17:30] acetaminophen 1,000 mg PO Q8H PRN PRN #120 tab 04/09/21 [Rx Last Taken Unknown] acidophilus-pectin, citrus 2 tab PO BID #120 tab 04/09/21 [Rx Last Taken Unknown] aspirin 81 mg PO DAILY #30 tab 04/09/21 [Rx Last Taken Unknown] calcium carbonate-vitamin D3 1 tab PO DAILY #30 tab 04/09/21 [Rx Last Taken Unknown] clopidogrel 75 mg PO DAILY #30 tab 06/07/21 [Rx Last Taken Unknown] famotidine 20 mg PO BID #60 tab 04/09/21 [Rx Last Taken Unknown] magnesium chloride [Mag 64] 128 mg PO BID #120 tab 04/09/21 [Rx Last Taken Unknown] nitroglycerin 0.4 mg SUBLINGUAL Q5M PRN #25 tab 04/09/21 [Rx Last Taken Unknown] Allergy/AdvReac Type Severity Reaction Status Date / Time Iodine and Iodide Containing Allergy Severe Rash Verified 04/15/21 00:16 Produc ezetimibe [From Zetia] AdvReac Severe Myalgias Verified 04/15/21 00:16 Yytpjgr-[id number]-Hkc Reductase AdvReac Severe Elevated Verified 04/15/21 00:16 Inhibitor Liver Enzymes buspirone [From BuSpar] AdvReac Orthostasis, Verified 04/15/21 00:16 hyponatremia duloxetine [From Cymbalta] AdvReac Orthostasis Verified 04/15/21 00:16 /hyponatrem ia Family History Grandmother Myocardial infarction Grandfather Myocardial infarction Surgical History History of coronary artery stent placement (02/17/19) History of left heart catheterization (LHC) (01/21/19) Hx of knee surgery Presence of automatic (implantable) cardiac defibrillator (10/31/17) Social History household members: family and other details: currently living with his father and his brother Donnell. housing: house number of children: 1 current occupational status: unemployed Smoking Status: Current every day smoker tobacco type: cigarettes how long ago did patient quit smokin11/2017 alcohol intake: current alcohol intake frequency: 3 or more drinks per day Alcohol type: wine substance use type: other details: Has abused RX Ativan in the past well-balanced diet: other details: says that he gets meals on wheels and they pile upin the refrigerator caffeine: No during the past year weight has: other details: decreased 20 lbs since November what type of physical activity do you participate in: none duration: < 15 minutes/day seatbelt use: always do you feel safe at home: Yes ROS ROS Narrative 12 point review of system is negative except as stated in HPI. Vital Signs Vital Signs Vital Signs: 04/15/21 00:08 04/15/21 00:17 Temperature 96.0 F L Temperature Source Temporal Pulse Rate 92 Respiratory Rate 15 Respiratory Effort Normal Non-Labored Respiratory Pattern Normal Blood Pressure 129/75 H Blood Pressure Mean 93 Pulse Ox 98 Oxygen Delivery Method Room Air Weight Weight: 86.1 kg Body Mass Index (BMI) 28.0 Physical Exam Narrative Alert and oriented x3. Patient smells of alcohol. Nontraumatic; normocephalic Lung clear to auscultate Heart sounds S1-S2. No murmur, gallop or rubs. Abdomen bowel sounds present soft, nontender nondistended Extremity without edema cyanosis or clubbing. Results Lab / Micro Data Result Diagrams: 04/15/21 00:21 04/15/21 00:21 Labs: Laboratory Results - last 24 hr 04/15/21 04/15/21 04/15/21 00:21 00:21 00:21 WBC 10.6 RBC 3.90 L Hgb 13.7 Hct 38.1 L MCV 97.7 H MCH 35.1 H MCHC 36.0 RDW Std Deviation 50.7 H RDW Coeff of Yoli 14.1 Plt Count 386 MPV 8.7 Immature Gran % (Auto) 0.500 Neut % (Auto) 60.2 Lymph % (Auto) 26.0 Henderson % (Auto) 12.2 H Eos % (Auto) 0.5 Baso % (Auto) 0.6 Absolute Neuts (auto) 6.4 Absolute Lymphs (auto) 2.76 Nucleated RBC % 0 Sodium 132 L Potassium 5.4 H Chloride 96 L Carbon Dioxide 24.0 Anion Gap 12 BUN 2 L Creatinine 0.61 L Estim Creat Clear Calc 120.73 Est GFR (MDRD) Af Amer 169 Est GFR (MDRD) Non-Af 140 BUN/Creatinine Ratio 3.3 L Glucose 99 Calcium 9.1 Troponin I < 0.015 Urine Color Urine Clarity Urine pH Ur Specific [place] Urine Protein Urine Glucose (UA) Urine Ketones Urine Occult Blood Urine Nitrite Urine Bilirubin Urine Urobilinogen Ur Leukocyte Esterase Urine RBC Urine WBC Ur Squamous Epith Cells Urine Bacteria Urine Mucus Urine Opiates Screen Urine Methadone Screen Ur Barbiturates Screen Ur Phencyclidine Scrn Ur Amphetamines Screen U Methamphetamin-MDMA U Benzodiazepines Scrn Urine Cocaine Screen U Cannabinoids Screen Ur Drug Screen Comment Ethyl Alcohol 348.0 H* 04/15/21 04/15/21 00:35 00:35 WBC RBC Hgb Hct MCV MCH MCHC RDW Std Deviation RDW Coeff of Yoli Plt Count MPV Immature Gran % (Auto) Neut % (Auto) Lymph % (Auto) Henderson % (Auto) Eos % (Auto) Baso % (Auto) Absolute Neuts (auto) Absolute Lymphs (auto) Nucleated RBC % Sodium Potassium Chloride Carbon Dioxide Anion Gap BUN Creatinine Estim Creat Clear Calc Est GFR (MDRD) Af Amer Est GFR (MDRD) Non-Af BUN/Creatinine Ratio Glucose Calcium Troponin I Urine Color Yellow Urine Clarity Clear Urine pH 6.5 Ur Specific [place] 1.010 Urine Protein 15 H Urine Glucose (UA) Normal Urine Ketones Negative Urine Occult Blood Negative Urine Nitrite Negative Urine Bilirubin Negative Urine Urobilinogen Normal Ur Leukocyte Esterase Negative Urine RBC 0 SEEN Urine WBC 0 SEEN Ur Squamous Epith Cells 0 SEEN Urine Bacteria RARE Urine Mucus 0 SEEN Urine Opiates Screen NEGATIVE Urine Methadone Screen NEGATIVE Ur Barbiturates Screen NEGATIVE Ur Phencyclidine Scrn NEGATIVE Ur Amphetamines Screen NEGATIVE U Methamphetamin-MDMA NEGATIVE U Benzodiazepines Scrn NEGATIVE Urine Cocaine Screen NEGATIVE U Cannabinoids Screen NEGATIVE Ur Drug Screen Comment Ethyl Alcohol Radiology Impression Brain CT 04/15/21 00:21 IMPRESSION: Atrophy no evidence of acute hemorrhage infarct or edema. No significant change since the prior study. Electronically Signed: Reanna Mullins MD at 1:49 EDT Tel , Service support , Chest X-Ray 04/15/21 01:00 IMPRESSION: Degenerative changes, as described above. Stable appearance of the left-sided defibrillator. No demonstrated acute cardiopulmonary process. Electronically Signed: Reanna Mullins MD at 1:58 EDT Tel , Service support , Assessment & Plan Assessment/Plan (1) Debility: (2) Alcoholic: PLAN: Debility PT and OT to work with patient and make recommendation. Case management consult for disposition. Alcoholism Patient with ethanol level of 348, high. We will put on CIWA protocol with thiamine, multivitamin, folate and as needed Ativan. Hyponatremia Emergency department labs showed a sodium of 132. Chronic. At baseline. Patient had a previous work-up. No further work-up at this time. History of heart failure with reduced ejection fraction Stable with no symptoms of decompensated heart failure Echocardiogram on 03/29/2021 was reviewed. Echocardiogram showed ejection fraction of 30%. Patient with ICD in place. Previously midodrine and Florinef for hypotension. Blood pressure is stable at this time. Will start on low-dose of metoprolol succinate. If patient can tolerate low-dose metoprolol succinate consider starting on low-dose metoprolol which should also help with withdrawal symptoms. If patient able to tolerate metoprolol and blood pressure is stable consider TANIYA inhibitor. Review of labs shows normal kidney function. Hyperkalemia Review of medical department labs showed potassium of 5.4. Trend BMP. Tobacco abuse Declined nicotine patch. Counseled. DVT prophylaxis Subcutaneous Lovenox. Charges/Coding Visit Charges OBSV E&M: 73408 Initial observation care L3
[2021-04-15] MEDS: Senna/Docusate Sodium 1 Tablet 2 TABLET PO (04:01)
[2021-04-15] MEDS: Thiamine Hydrochloride 100 MG Tablet PO ×2 (09:10→18:24)
[2021-04-15] MEDS: Folic Acid 1 MG Tablet PO (09:10)
[2021-04-15] MEDS: Aspirin E.C. 81 MG Tablet PO (09:11)
[2021-04-15] MEDS: Multivitamins,Ther W-Minerals Tablet 1 TABLET PO (09:11)
[2021-04-15] MEDS: Calcium Carb/Vitamin D 1 TABLET Tablet PO (09:11)
[2021-04-15] MEDS: Amiodarone 200 MG Tablet PO ×2 (09:11→18:23)
[2021-04-15] MEDS: Menthol/Lanolin/Calamine/Znox 113 GM Tube 1 APPLIC TOPICAL ×3 (09:12→21:11)
[2021-04-15] MEDS: Famotidine 20 MG Tablet PO ×2 (09:13→21:11)
[2021-04-15] MEDS: Magnesium Chloride 64 MG Delay Rel.Tablet 128 MG PO ×2 (09:13→21:11)
[2021-04-15] MEDS: Enoxaparin 40 MG/0.4 ML Syringe SC (09:13)
[2021-04-15] MEDS: Clopidogrel Bisulfate 75 MG Tablet PO (09:14)
[2021-04-15] MEDS: Metoprolol(XL)Succ 25 MG Tablet 12.5 MG PO (09:14)
[2021-04-15] MEDS: LORazepam 1 MG Tablet 2 MG PO ×2 (09:19→21:21)
[2021-04-15] MEDS: MELATONIN 3 MG TABLET PO (21:21)
[2021-04-16 02:44] VITALS: BP 130/68; PULSE 78; RESP 16; TEMP 37.2; O2SAT 96
--- NOTE | 2021-04-16 07:48 | PCM.PN.HOSP ---
Subjective Subjective Patient is a 66-year-old gentleman past medical history significant for chronic alcohol use, multiple admissions for falls recently discharged from the inpatient rehab unit presented to the ED with progressive generalized weakness Objective Data Objective Data Vital Signs: Vital Signs Temp Pulse Resp BP Pulse Ox 98.9 F 78 16 130/68 H 96 04/16/21 02:44 04/16/21 02:44 04/16/21 02:44 04/16/21 02:44 04/16/21 02:44 Oxygen Delivery Method Room Air Weight: 82.9 kg Body Mass Index (BMI) 24.0 Intake & Output: Intake and Output for Last 24 Hours 04/14/21 04/15/21 04/16/21 23:59 23:59 23:59 Intake Total 1600 / 1600 Balance 1600 / 1600 Lab / Micro Data Result Diagrams: 04/15/21 00:21 04/15/21 00:21 Micro: Microbiology 04/15/21 17:08 Stool C. difficile GDH Antigen & Toxins - Final 04/15/21 17:08 Stool C. difficile DNA Amplification - Final 04/15/21 17:08 Stool Enteric Bacteriology - Final Physical Exam Narrative GENERAL: Frail looking HEENT: Atraumatic; EYES; Anicteric, Normal Conjunctiva NECK; supple, normal thyroid, RESPIRATORY: Diminished to auscultation CARDIOVASCULAR: Regular S1 S2, GI: soft, normoactive bowel sounds, : No Renal angle tenderness; EXTREMITIES: No edema, no clubbing, MUSCULOSKELETAL: no muscle waisting NEURO: Awake; no lateralizing signs. SKIN: No Rash PSYCH; Flat affect Assessment & Plan Assessment/Plan (1) Debility: (2) Alcoholic: PLAN: Patient is a 66-year-old gentleman past medical history significant for chronic alcohol use, multiple admissions for falls recently discharged from the inpatient rehab unit presented to the ED with progressive generalized weakness 1. Physical deconditioning with recurrent falls - Presented with progressive generalized weakness and repeated falls. Including fall with left hip fracture with subsequent left hemiarthroplasty. Admitted to monitored bed requested for PT OT eval and social media marketing specialist to assist with discharge planning did discuss with patient about possibility of being transferred to penitentiary facility instead of rehab he is currently not in agreement. 2. Hyponatremia chronic ?Suspected to be secondary to beer potomania 3. Hyperkalemia ?Repeat potassium ordered for evaluation 4. Recent diagnosis of C. difficile colitis ?Patient completed treatment with vancomycin 5. Chronic alcohol abuse ?DT precautions 6. Tobacco dependence - Counseled on cessation, offered nicotine patch for tobacco cravings 7. Hypertension - Blood pressure controlled, home medications continued with dose adjustment as needed 8. History of p ventricular tachycardia ?Patient has undergone previous AICD placement currently on amiodarone discontinued 9. History of depression with anxiety -Stable 10. DVT prophylaxis ?Lovenox Charges/Coding Visit Charges OBSV E&M: 36741 Subsequent observation care L2
[2021-04-16 08:05] VITALS: O2SAT 95
[2021-04-16] MEDS: Thiamine Hydrochloride 100 MG Tablet PO ×2 (08:24→16:46)
[2021-04-16] MEDS: Calcium Carb/Vitamin D 1 TABLET Tablet PO (08:24)
[2021-04-16] MEDS: Multivitamins,Ther W-Minerals Tablet 1 TABLET PO (08:24)
[2021-04-16] MEDS: Folic Acid 1 MG Tablet PO (08:24)
[2021-04-16] MEDS: Aspirin E.C. 81 MG Tablet PO (08:24)
[2021-04-16] MEDS: Amiodarone 200 MG Tablet PO ×2 (08:24→16:48)
[2021-04-16 08:28] VITALS: BP 158/88; PULSE 98; RESP 18; TEMP 36.9; O2SAT 96
[2021-04-16 10:19] VITALS: PULSE 98
[2021-04-16] MEDS: Magnesium Chloride 64 MG Delay Rel.Tablet 128 MG PO ×2 (10:19→21:12)
[2021-04-16] MEDS: Clopidogrel Bisulfate 75 MG Tablet PO (10:19)
[2021-04-16] MEDS: Famotidine 20 MG Tablet PO ×2 (10:19→21:15)
[2021-04-16] MEDS: Metoprolol(XL)Succ 25 MG Tablet 12.5 MG PO (10:19)
[2021-04-16] MEDS: Enoxaparin 40 MG/0.4 ML Syringe SC (10:19)
[2021-04-16] MEDS: Menthol/Lanolin/Calamine/Znox 113 GM Tube 1 APPLIC TOPICAL ×2 (10:20→21:11)
--- NOTE | 2021-04-16 11:35 | CASEMGMT ---
SW met w/pt in room in regard to prior level of function and anticipated discharge plan. PCP: Dr. Sue, as pt refers to him, he is an DEL[employer] at [facility], though pt has not seen him yet. Specialists: None Insurance/Prescription coverage: Medicare/Medicaid Pharmacy: [facility]: brother Donnell LW/POA: brother Donnell, not on file here at [facility] Living arrangements: Pt lives home alone in a split level home with 5 steps and railing between levels. Patient states he was independent at home. Pt was here in March, went to rehab and discharged home on April 09. Transportation: Uses public transportation DME/HHC/SNF: Pt has been to [facility] in the past, to the hospital's inpt rehab recently. Pt had outpt PT set up at [facility] after his stay in [facility]. Pt has a shower chair, raised toilet seat and walker at home. He has had [facility]. History of Mental Health: Pt states has been diagnosed with anxiety and depression. Pt states when in rehab was taken off of antidepressants. Pt has not taken them since as he ran out and has not yet followed up w/the DELICATE [employer]ER at [facility]. (The DELICATE F[employer]ER is new to him, Dr. Del Rosario was his physician and he retired.) Pt talked about losing his in December of 2019, and his mom the same month. His father is alive but needs a lot of care as he has dementia. Pt discussed that the last year has been very difficult for him, states it crossed his mind at times to harm himself. He never had a plan however, never acted on these feelings. At this time, pt denies wanting to harm himself. Pt states was in counseling with [facility] for a time, but not recently. Substance abuse: Pt drinks beer, states does not know how much. He states has been drinking since his late 20's. There are times where he stayed sober for 5-6 years at a time. Pt explains that the last year has been difficult for him, and isolating due to COVID did not help anything. He states he will go a few days without drinking, and then will binge. Pt unclear with this SW at this time if he is planning to try to stop drinking, but does identify it as an issue for him. SW discussed discharge plan w/pt, he is open to SNF, list of facilities in his preferred geographic area, that take his insurance and can manage his care, and that includes quality and resource data provided to pt. Pt would like to go to [facility]. SW called TCU, they can take pt when medically ready. SW explained to pt his length of stay will be limited to 20 days, SW explained that 20 days is covered by Medicare, and [facility] does not take his secondary insurance so he would need to discharge by the 21st day. SW explained that the copay starts on day 21 and that this would not be covered by his Medicaid in [facility]. Pt states understanding, and does think he would be able to leave to go home after 20 days. Pt is also open to mental health referral at discharge for counseling. Pt also would like home health from [facility] at discharge if he qualifies. Pt has not been vaccinated, SW explained that pt will be quarantined for 14 days when he goes to [facility]. Pt states understanding. Plan: [facility]CU when ready. JORDAN Morataya
[2021-04-16 14:41] VITALS: BP 143/74; PULSE 86; RESP 18; TEMP 37; O2SAT 96
[2021-04-16] MEDS: Meloxicam 15 MG Tablet PO (16:45)
[2021-04-16 21:00] VITALS: BP 158/76; PULSE 86; RESP 18; TEMP 36.6; O2SAT 100
[2021-04-16] MEDS: LORazepam 1 MG Tablet 2 MG PO (21:11)
[2021-04-17] MEDS: Acetaminophen 325 MG Tablet 650 MG PO (02:21)
[2021-04-17 02:49] VITALS: BP 124/67; PULSE 81; RESP 18; TEMP 36.7; O2SAT 98
--- NOTE | 2021-04-17 04:22 | NURSING ---
Pt continues to call frequently to have attends change, will not even try to use his urinal. Offered the male cathleen, after agreeing to try it, he kept messing with it and eventual took it off. He gets defensive and argumentative when discussing him using his urinal. Will continue to education patient in regards to skin care and keeping his skin clean and dry. There is a pressure area on his left buttocks.
--- NOTE | 2021-04-17 07:37 | TREXTCAR_ITS ---
Diet 04/15/21 09:07 Diet: Regular - General Food consistency:: Regular Liquid Consistency:: Regular/Thin Type of Dietary Supplement:: Ensure Enlive Is pt able to select menu?: No Routine Orders/Code Status Code Status: Full Code Wound(s) coccyx: Wound Type: Pressure Injury Therapies Physical Therapy: Eval and Treat Occupational Therapy: Eval and Treat Problem/Diagnosis (1) Debility: Status: Acute (2) Alcoholic: Status: Acute Allergies/Procedures Done in Hospital Allergies Iodine and Iodide Containing Produc Allergy (Severe, Verified 04/15/21 00:16) Rash ezetimibe [From Zetia] Adverse Reaction (Severe, Verified 04/15/21 00:16) Myalgias Lfqqkug-Mnr-Eve Reductase Inhibitor Adverse Reaction (Severe, Verified 04/15/21 00:16) Elevated Liver Enzymes buspirone [From BuSpar] Adverse Reaction (Verified 04/15/21 00:16) Orthostasis, hyponatremia duloxetine [From Cymbalta] Adverse Reaction (Verified 04/15/21 00:16) Orthostasis/hyponatremia Type of Care/Length of Stay Estimated LOS: Convalescent Care Less Than 30 days Type of Care Needed: Skilled Rehab Potential: Fair Prognosis: Fair Additional Orders/Day of Discharge Day of Discharge: 04/17/21 Dietary and Speech Recommendations Dietitian Recommendations/Changes: continue regular diet, ensure enlive w/ medpass. Discharge Plan Admission Admit Date/Time: 04/16/21 15:57 Primary Reason for Your Visit: Recurrent falls Attending Provider: Rodrigo Phan Primary Care Provider: Care Physician,No Primary Discharge Orders/Prescriptions Prescriptions: New meloxicam 15 mg Tablet 15 mg PO DAILY Qty: 0 RF: 0 sennosides-docusate sodium [Stool Softener-Stimulant Laxat] 8.6-50 mg Tablet 2 tab PO BID PRN PRN (Reason: Constipation) Qty: 0 RF: 0 thiamine HCl (vitamin B1) [Vitamin B-1] 100 mg Tablet 100 mg PO BIDCM Qty: 0 RF: 0 melatonin 3 mg Tablet 3 mg PO QHS PRN PRN (Reason: Insomnia) Qty: 0 RF: 0 folic acid 1 mg Tablet 1 mg PO BREAKFAST Qty: 0 RF: 0 metoprolol succinate 25 mg Tablet Extended Release 24 Hr 12.5 mg PO DAILY Qty: 0 RF: 0 Calmoseptine 0.44-20.6 % Ointment 1 applic topical BID Qty: 0 RF: 0 Ensure Enlive 0.08 gram-1.5 kcal/mL Liquid 120 ml PO 4X/DAY Qty: 0 RF: 0 Multivitamins,Ther W-Minerals [Multivitamin With Minerals (Bkc)] 1 tab PO BREAKFAST Qty: 0 RF: 0 Continued famotidine 20 mg Tablet 20 mg PO BID Qty: 60 RF: 0 clopidogrel 75 mg tablet 75 mg PO DAILY Qty: 30 RF: 0 aspirin 81 mg tablet,delayed release (DR/EC) 81 mg PO DAILY Qty: 30 RF: 0 acetaminophen 500 MG tablet 1,000 mg PO Q8H PRN PRN (Reason: Pain 1-10 Or Fever) Qty: 120 RF: 0 nitroglycerin 0.4 mg tablet, sublingual 0.4 mg SUBLINGUAL Q5M PRN (Reason: Angina) Qty: 25 RF: 0 acidophilus-pectin, citrus 25 million cell -100 mg tablet 2 tab PO BID Qty: 120 RF: 0 calcium carbonate-vitamin D3 1 TABLET tablet 1 tab PO DAILY Qty: 30 RF: 0 magnesium chloride [Mag 64] 64 mg tablet,delayed release (DR/EC) 128 mg PO BID Qty: 120 RF: 0 amiodarone 200 mg tablet 200 mg PO BID Qty: 180 RF: 3 Referrals / Follow Up: Care Physician,No Primary [Primary Care Provider] - Disposition Disposition (needs filled in before D/C Order can be placed): [facility] Facility
--- NOTE | 2021-04-17 07:45 | PCM.DC.SUM ---
Providers Date of Admission: 04/16/21 Primary Care Physician: Kitty Primary Care Phys Reason For Visit: DEBILITY Diagnosis Discharge Diagnosis (1) Debility: Status: Acute Code(s): R53.81 - Other malaise (2) Alcoholic: Status: Acute Code(s): F10.20 - Alcohol dependence, uncomplicated Medications at Discharge Home Medications amiodarone 200 mg tablet 200 mg PO BID #180 tab 06/15/20 acetaminophen 1,000 mg PO Q8H PRN PRN #120 tab 04/09/21 acidophilus-pectin, citrus 2 tab PO BID #120 tab 04/09/21 aspirin 81 mg PO DAILY #30 tab 04/09/21 calcium carbonate-vitamin D3 1 tab PO DAILY #30 tab 04/09/21 clopidogrel 75 mg PO DAILY #30 tab 04/09/21 famotidine 20 mg PO BID #60 tab 04/09/21 magnesium chloride [Mag 64] 128 mg PO BID #120 tab 04/09/21 nitroglycerin 0.4 mg SUBLINGUAL Q5M PRN #25 tab 04/09/21 Multivitamins,Ther W-Minerals [Multivitamin With Minerals (BKC)] 1 tab PO BREAKFAST #0 04/17/21 folic acid 1 mg PO BREAKFAST #0 tab 04/17/21 food supplemt, lactose-reduced [Ensure Enlive] 120 ml PO 4X/DAY #0 ml 04/17/21 melatonin 3 mg PO QHS PRN PRN #0 tab 04/17/21 meloxicam 15 mg PO DAILY #0 tab 04/17/21 menthol-zinc oxide [Calmoseptine] 1 applic TOPICAL BID #0 g 04/17/21 metoprolol succinate 12.5 mg PO DAILY #0 tab 04/17/21 sennosides-docusate sodium [Stool Softener-Stimulant Laxat] 2 tab PO BID PRN PRN #0 tab 04/17/21 thiamine HCl (vitamin B1) [Vitamin B-1] 100 mg PO BIDCM #0 tab 04/17/21 Hospital Course Summary of Care Provided Minutes Spent on Discharge: 45 Hospital Course: Patient is a 66-year-old gentleman past medical history significant for chronic alcohol use, multiple admissions for falls recently discharged from the inpatient rehab unit presented to the ED with progressive generalized weakness 1. Physical deconditioning with recurrent falls - Presented with progressive generalized weakness and repeated falls. Including fall with left hip fracture with subsequent left hemiarthroplasty. Admitted to monitored bed requested for PT OT eval and pediatric social worker to assist with discharge planning did discuss with patient about possibility of being transferred to correction facility instead of rehab he is currently not in agreement. -04/17/2021. Patient did agree to go to transitional care unit consult placed to case management to assist with disposition 2. Hyponatremia chronic ?Suspected to be secondary to beer potomania 3. Hyperkalemia ?Repeat potassium ordered for evaluation 4. Recent diagnosis of C. difficile colitis ?Patient completed treatment with vancomycin 5. Chronic alcohol abuse ?DT precautions 6. Tobacco dependence - Counseled on cessation, offered nicotine patch for tobacco cravings 7. Hypertension - Blood pressure controlled, home medications continued with dose adjustment as needed 8. History of p ventricular tachycardia ?Patient has undergone previous AICD placement currently on amiodarone discontinued 9. History of depression with anxiety -Stable 10. DVT prophylaxis ?Lovenox Physical Exam Narrative GENERAL: Frail looking HEENT: Atraumatic; EYES; Anicteric, Normal Conjunctiva NECK; supple, normal thyroid, RESPIRATORY: Diminished to auscultation CARDIOVASCULAR: Regular S1 S2, GI: soft, normoactive bowel sounds, : No Renal angle tenderness; EXTREMITIES: No edema, no clubbing, MUSCULOSKELETAL: no muscle waisting NEURO: Awake; no lateralizing signs. SKIN: No Rash PSYCH; Flat affect Weight / BMI Weight Weight: 82.9 kg Body Mass Index (BMI) 24.0 ABG / Lab / Microbiology Data Result Diagrams: 04/15/21 00:21 04/17/21 10:30 Microbiology: Microbiology 04/15/21 17:08 C. difficile GDH Antigen & Toxins - Final Stool C. difficile DNA Amplification - Final Microbiology 04/15/21 17:08 Stool C. difficile GDH Antigen & Toxins - Final 04/15/21 17:08 Stool C. difficile DNA Amplification - Final 04/15/21 17:08 Stool Enteric Bacteriology - Final D/C Instructions Discharge Diet: No restrictions Discharge Activity: Return to Normal Activity Call your doctor if you observe: Fever of 101 or Higher, Shortness of breath, Fainting spells and Chest pain Meaningful Use Info Meaningful Use Diagnoses (Choose all that apply): None applicable Discharge Plan Admission Admit Date/Time: 04/16/21 15:57 Primary Reason for Your Visit: Recurrent falls Attending Provider: Rodrigo Phan Primary Care Provider: Care Physician,No Primary Discharge Orders/Prescriptions Prescriptions: New meloxicam 15 mg Tablet 15 mg PO DAILY Qty: 0 RF: 0 sennosides-docusate sodium [Stool Softener-Stimulant Laxat] 8.6-50 mg Tablet 2 tab PO BID PRN PRN (Reason: Constipation) Qty: 0 RF: 0 thiamine HCl (vitamin B1) [Vitamin B-1] 100 mg Tablet 100 mg PO BIDCM Qty: 0 RF: 0 melatonin 3 mg Tablet 3 mg PO QHS PRN PRN (Reason: Insomnia) Qty: 0 RF: 0 folic acid 1 mg Tablet 1 mg PO BREAKFAST Qty: 0 RF: 0 metoprolol succinate 25 mg Tablet Extended Release 24 Hr 12.5 mg PO DAILY Qty: 0 RF: 0 Calmoseptine 0.44-20.6 % Ointment 1 applic topical BID Qty: 0 RF: 0 Ensure Enlive 0.08 gram-1.5 kcal/mL Liquid 120 ml PO 4X/DAY Qty: 0 RF: 0 Multivitamins,Ther W-Minerals [Multivitamin With Minerals (Bkc)] 1 tab PO BREAKFAST Qty: 0 RF: 0 Continued famotidine 20 mg Tablet 20 mg PO BID Qty: 60 RF: 0 clopidogrel 75 mg tablet 75 mg PO DAILY Qty: 30 RF: 0 aspirin 81 mg tablet,delayed release (DR/EC) 81 mg PO DAILY Qty: 30 RF: 0 acetaminophen 500 MG tablet 1,000 mg PO Q8H PRN PRN (Reason: Pain 1-10 Or Fever) Qty: 120 RF: 0 nitroglycerin 0.4 mg tablet, sublingual 0.4 mg SUBLINGUAL Q5M PRN (Reason: Angina) Qty: 25 RF: 0 acidophilus-pectin, citrus 25 million cell -100 mg tablet 2 tab PO BID Qty: 120 RF: 0 calcium carbonate-vitamin D3 1 TABLET tablet 1 tab PO DAILY Qty: 30 RF: 0 magnesium chloride [Mag 64] 64 mg tablet,delayed release (DR/EC) 128 mg PO BID Qty: 120 RF: 0 amiodarone 200 mg tablet 200 mg PO BID Qty: 180 RF: 3 Referrals / Follow Up: Care Physician,No Primary [Primary Care Provider] - Disposition Disposition (needs filled in before D/C Order can be placed): [facility] Facility Charges/Coding Visit Charges Inpatient E&M: 95902 Disch Hosp
[2021-04-17] MEDS: Folic Acid 1 MG Tablet PO (07:57)
[2021-04-17] MEDS: Amiodarone 200 MG Tablet PO (07:57)
[2021-04-17] MEDS: Multivitamins,Ther W-Minerals Tablet 1 TABLET PO (07:57)
[2021-04-17] MEDS: Calcium Carb/Vitamin D 1 TABLET Tablet PO (07:57)
[2021-04-17] MEDS: Aspirin E.C. 81 MG Tablet PO (07:57)
[2021-04-17] MEDS: Thiamine Hydrochloride 100 MG Tablet PO (07:58)
[2021-04-17 09:34] VITALS: BP 138/71; PULSE 85; RESP 18; TEMP 36.6; O2SAT 98
[2021-04-17] MEDS: Enoxaparin 40 MG/0.4 ML Syringe SC (09:38)
[2021-04-17] MEDS: Menthol/Lanolin/Calamine/Znox 113 GM Tube 1 APPLIC TOPICAL (09:38)
[2021-04-17 09:39] VITALS: PULSE 85
[2021-04-17] MEDS: Famotidine 20 MG Tablet PO (09:39)
[2021-04-17] MEDS: Meloxicam 15 MG Tablet PO (09:39)
[2021-04-17] MEDS: Magnesium Chloride 64 MG Delay Rel.Tablet 128 MG PO (09:39)
[2021-04-17] MEDS: Clopidogrel Bisulfate 75 MG Tablet PO (09:39)
[2021-04-17] MEDS: Metoprolol(XL)Succ 25 MG Tablet 12.5 MG PO (09:39)
--- NOTE | 2021-04-17 09:49 | NURSING ---
Addendum entered and electronically signed by Geno Mckeon 04/17/21 10:44: Dr Phan aware patient met Palliative Referral Criteria and would like referral sent. Referral sent to [facility] at this time. Patient to DC to TCU. YI Srinivasan Original Note: RNDUANE Note: Palliative Screening Tool per [facility] guidelines was completed by RNDUANE on 03/19/21 and did not meet criteria at that time. Palliative Screening Tool completed by this bond writer at this time d/t Lace 3 and does meet criteria- however DCO in- Patient to plan to DC SNF? will notify primary RNDUANE Bustamante to discuss. Patient with admissions on 11/15/20, 03/17/21- 03/29/21 d/t inability to walk s/p fall and Dx with Debility, was Dc'd to and Dc'd from there on 04/09/21- Seen in ER 04/10/21 and re-admitted 04/16/21 d/t inability to walk. H/o HF with reduced EF- 30% on 03/29/21, CAD, NE s/p Stent, ICD, Ischemic CM, HLD, HTN, Vtach, Stage 1 COPD not on home O2, Tobacco smoker, alcoholism with functional decline. H/o weight loss, Albumin 2.9 on 04/07/21. YI Srinivasan
--- NOTE | 2021-04-17 10:27 | CASEMGMT ---
All discharge instructions faxed to TCU, COVID test back negative. Pt can go to TCU today. SW spoke w/pt, confirmed w/pt he will go to TCU today. Bedside RN aware pt going today. SW let TCU SW know pt may need follow up regarding both mental health and alcohol abuse. No further needs, pt to TCU today. JORDAN Morataya
[2021-04-17 10:58] LABS: Anion Gap 9 (5-15); BUN 10 mg/dL (7-18); BUN/Creat Ratio 19.5 RATIO (10-20); Calcium,Total 8.4 mg/dL (8.5-10.1); Chloride 102 mmol/L (98-107); Creatinine, Serum 0.51 mg/dL (0.70-1.30); EST Glomerular Filtration Rate 172 mL/min (>60); Est Glom Filt Rate - Afr Amer 208 mL/min (>60); Estimated Creatinine Clearance 163.19 ml/min; Glucose 106 mg/dL (74-106); Potassium 3.9 mmol/L (3.5-5.1); Sodium Level 135 mmol/L (136-145)
== END 2021-04-17 11:35 | disposition skilled nursing facility (03) | DRG 948 ==
LOC: ED 02:34 → MS3 03:56
PROVIDERS: Admitting Provider Hospitalist; Emergency Provider Emergency Medicine; Visit Provider Internal Medicine
DX: R53.1 Weakness (principal); E87.1 Hypo-osmolality and hyponatremia; I47.2 Ventricular tachycardia; I50.22 Chronic systolic (congestive) heart failure; R29.6 Repeated falls; E87.5 Hyperkalemia; Z86.19 Personal history of other infectious and parasitic diseases; Z95.810 Presence of automatic (implantable) cardiac defibrillator; F41.9 Anxiety disorder, unspecified; F32.9 Major depressive disorder, single episode, unspecified; F17.210 Nicotine dependence, cigarettes, uncomplicated; F10.229 Alcohol dependence with intoxication, unspecified; I11.0 Hypertensive heart disease with heart failure
CPT/HCPCS: 36415; 70450; 71045; 80048; 80307; 81001; 82077; 84484; 85025; 87426; 87493; 87506; 93005; 97162; 97166; 97530; 97802; 99285; 99406; J7040; A4216

== ENCOUNTER 2021-04-17 12:25 | Inpatient (IN) | payer MEDICARE, MEDICAID, SELFPAY ==
[2019-02-17 13:19] VITALS: BMI 29.2
[2021-04-15 03:14] VITALS: BMI 24.0
[2021-04-17 12:31] VITALS: BP 147/85; PULSE 79; RESP 18; TEMP 35.9; O2SAT 96
[2021-04-17 14:13] VITALS: BP 147/85; PULSE 79; RESP 18; TEMP 35.9; O2SAT 96
--- NOTE | 2021-04-17 14:31 | CON.PCM.PA_ITS ---
Assessment & Plan Assessment/Plan (1) Debility: (2) Anxiety: (3) Depression: QUALIFIERS: Active/Remission status: currently active Depression Type: major depressive disorder Major depression episode severity: unspecified Major depression recurrence: unspecified whether recurrent Qualified Code(s): F32.9 - Major depressive disorder, single episode, unspecified (4) Cerebellar atrophy: (5) Declining functional status: (6) Cognitive dysfunction, alcohol-related: (7) Benzodiazepine abuse in remission: (8) History of alcoholism: (9) Frequent falls: (10) History of coronary artery stent placement: (11) HTN (hypertension): QUALIFIERS: Hypertension type: essential hypertension Qualified Code(s): I10 - Essential (primary) hypertension (12) Hyperlipidemia: QUALIFIERS: Hyperlipidemia type: unspecified Qualified Code(s): E78.5 - Hyperlipidemia, unspecified (13) Hypomagnesemia: (14) Hypokalemia: (15) Hyponatremia: (16) Pulmonary nodule: (17) Stage 1 mild COPD by GOLD classification: (18) Tobacco user: (19) Unintentional weight loss: (20) Atherosclerotic heart disease of lummi coronary artery without angina pectoris: QUALIFIERS: [place] vs. transplanted heart: lummi heart Qualified Code(s): I25.10 - Atherosclerotic heart disease of lummi coronary artery without angina pectoris (21) Alcoholic cardiomyopathy: PLAN: 66-year-old male seen today for initial palliative care consultation secondary to debility and weakness, multiple falls, multiple presentations to the ED, and alcohol abuse. 1. Debility and weakness/falls: Likely related to malnutrition and alcoholism. Transferred to the TCU for further therapy. 2. Alcohol abuse and history of benzodiazepine abuse: Patient has had multiple recent stressors, including the of his who was on hospice. He is at high risk to be on any opioids or benzodiazepines, would not prescribe at this point. 3. Electrolyte imbalances/hyponatremia/pulmonary nodule/COPD/tobacco abuse/weight loss/CAD/alcoholic cardiomyopathy/hypertension/HLD: Complicates overall care, management, recovery, and prognosis. Defer management to primary care. Thank you for the opportunity to participate in this patient's care, please do not hesitate to contact [facility] with any further questions or concerns. Palliative direct line is [phone]. We will have our liaison come talk with the patient further about palliative services as he is a little overwhelmed right now. I will follow-up with him next week. Greater than 50% of F2F visit dedicated to education and counseling of palliative care services, medications, comorbid conditions and potential assistance with management, and plan of care moving forward. Palliative for this patient would be supportive care, care coordination, routine counseling, etc. He would have to establish with a primary care physician if we were to follow him as an outpatient. Start time: 1430 End time:1505 HPI Consult Data Date of Consult: 04/17/21 HPI Narrative HPI Narrative: OSCAR MORTON, is a 66 M, H as below, who presented to [facility] 04/15/2021 with significant weakness and falls. Palliative care consult requested secondary to multiple recent falls and admissions to the hospital. He had a left hip fracture s/p hemiarthroplasty. He was recently discharged from the inpatient rehab unit after hospital stay for C. difficile. Patient has had a lot of high stress lately, his recently on hospice and his house is now in probate court. He has previously denied any torres icidal ideations but does not feel he has much to live for. Has a history of anxiety and depression. He used to be on an antidepressant but apparently was discontinued when he was in rehab according to the patient. According to his medical record, when he was in the ER 04/10/2021 he called 911 because he wanted to come in and talk with somebody secondary to suicidal thoughts. He was intoxicated at the time. Patient has a history of recurrent alcohol abuse and has abused prescription Ativan in the past. He drinks daily, mostly beer and wine. Admits to about 20 pound weight loss in the last 5 or 6 months. He lives with his father and his brother Donnell and has one child. He is also a current smoker. Oscar reports he does not know what is up or down anymore. He just arrived to TCU and has met a lot of people, which makes him a little confused. His nurses at the bedside. We discussed briefly palliative services and offered a liaison to come talk to him more in depth later this week, he is in agreement and states he will be in TCU for at least 20 days. He does feel very weak and knows he is malnourished. No current tremors, nausea, vomiting, diarrhea, or pain. [facility] Medical History (Updated 04/17/21 @ 14:43 by Elyssa Montelongo NP-C) Atherosclerotic heart disease of lummi coronary artery without angina pectoris Cellulitis and abscess of upper extremity Cerebellar atrophy Coronary artery disease Dehydration Femoral neck fracture History of alcoholism History of echocardiogram (04/03/17) History of stress test (02/16/10) HTN (hypertension) Hyperlipidemia Ischemic cardiomyopathy Macrocytosis Myocardial infarct Physical debility Physical debility Premature heartbeats Pulmonary nodule Stage 1 mild COPD by GOLD classification Tobacco user Urinary tract infection Ventricular tachycardia Home Medications amiodarone 200 mg tablet 200 mg PO BID #180 tab 06/15/20 [Rx Last Taken 11/14/20 17:30] acetaminophen 1,000 mg PO Q8H PRN PRN #120 tab 04/09/21 [Rx Last Taken Unknown] acidophilus-pectin, citrus 2 tab PO BID #120 tab 04/09/21 [Rx Last Taken Unknown] calcium carbonate-vitamin D3 1 tab PO DAILY #30 tab 04/09/21 [Rx Last Taken Unknown] clopidogrel 75 mg PO DAILY #30 tab 04/09/21 [Rx Last Taken Unknown] magnesium chloride [Mag 64] 128 mg PO BID #120 tab 04/09/21 [Rx Last Taken Unknown] nitroglycerin 0.4 mg SUBLINGUAL Q5M PRN #25 tab 04/09/21 [Rx Last Taken Unknown] Multivitamins,Ther W-Minerals [Multivitamin With Minerals (BKC)] 1 tab PO BREAKFAST 04/17/21 [History Last Taken Unknown] aspirin 81 mg PO DAILY 04/17/21 [History Last Taken Unknown] famotidine 20 mg PO BID 04/17/21 [History Last Taken Unknown] folic acid 1 mg PO BREAKFAST 04/17/21 [History Last Taken Unknown] food supplemt, lactose-reduced [Ensure Enlive] 120 ml PO 4X/DAY 04/17/21 [History Last Taken Unknown] melatonin 3 mg PO QHS PRN PRN #0 tab 04/17/21 [Rx Last Taken Unknown] meloxicam 15 mg PO DAILY 04/17/21 [History Last Taken Unknown] menthol-zinc oxide [Calmoseptine] 1 applic TOPICAL BID 04/17/21 [History Last Taken Unknown] metoprolol succinate 12.5 mg PO DAILY 04/17/21 [History Last Taken Unknown] sennosides-docusate sodium [Stool Softener-Stimulant Laxat] 2 tab PO BID PRN PRN #0 tab 04/17/21 [Rx Last Taken Unknown] thiamine HCl (vitamin B1) [Vitamin B-1] 100 mg PO BIDCM 04/17/21 [History Last Taken Unknown] Allergy/AdvReac Type Severity Reaction Status Date / Time Iodine and Iodide Containing Allergy Severe Rash Verified 04/15/21 00:16 Produc ezetimibe [From Zetia] AdvReac Severe Myalgias Verified 04/15/21 00:16 Otsrybx-Pfe-Njb Reductase AdvReac Severe Elevated Verified 04/15/21 00:16 Inhibitor Liver Enzymes buspirone [From BuSpar] AdvReac Orthostasis, Verified 04/15/21 00:16 hyponatremia duloxetine [From Cymbalta] AdvReac Orthostasis Verified 04/15/21 00:16 /hyponatrem ia Family History Grandmother Myocardial infarction Grandfather Myocardial infarction Surgical History History of coronary artery stent placement (02/17/19) History of left heart catheterization (LHC) (01/21/19) Hx of knee surgery Presence of automatic (implantable) cardiac defibrillator (10/31/17) Social History household members: family and other details: currently living with his father and his brother Donnell. housing: house number of children: 1 current occupational status: unemployed Smoking Status: Current every day smoker tobacco type: cigarettes how long ago did patient quit smokin11/2017 alcohol intake: current alcohol intake frequency: 3 or more drinks per day Alcohol type: wine substance use type: other details: Has abused RX Ativan in the past well-balanced diet: other details: says that he gets meals on wheels and they pile upin the refrigerator caffeine: No during the past year weight has: other details: decreased 20 lbs since November what type of physical activity do you participate in: none duration: < 15 minutes/day seatbelt use: always do you feel safe at home: Yes ROS ROS Narrative Review of systems otherwise negative from a constitutional, HEENT, respiratory, cardiovascular, GI, genitourinary, musculoskeletal, skin, neurologic, psychiatric and hematologic system unless stated above. Physical Exam Const alert, oriented x3 and no apparent distress General Appearance: cooperative Exam Limitations: no limitations HEENT normocephalic and head/scalp atraumatic Eyes General Eye: normal appearance of both eyes Conjunctiva: conjunctiva normal Neck supple General: trachea midline Resp normal respiratory effort Effort and Inspection: able to speak in complete sentences Auscultation: clear to auscultation bilaterally Cardio regular rate, regular rhythm, S1 normal heart sound and S2 normal heart sound GI normal to inspection, nondistended, normoactive bowel sounds Extremity no clubbing, cyanosis or edema Skin no rashes or lesions noted Neuro CN's II-XII intact bilaterally Psych cooperative, affect normal and speech normal
[2021-04-17 14:58] VITALS: BMI 25.2
[2021-04-17] MEDS: Amiodarone 200 MG Tablet PO (16:33)
[2021-04-17] MEDS: Thiamine Hydrochloride 100 MG Tablet PO (16:33)
[2021-04-17 16:35] VITALS: PULSE 79; RESP 18; O2SAT 96
[2021-04-17] MEDS: Menthol/Lanolin/Calamine/Znox 113 GM Tube 1 APPLIC TOPICAL (17:44)
[2021-04-17] MEDS: Famotidine 20 MG Tablet PO (17:45)
[2021-04-17] MEDS: Magnesium Chloride 64 MG Delay Rel.Tablet 128 MG PO (17:45)
[2021-04-17] MEDS: 0.9% Saline Lock 10 ML Syringe IV (20:47)
[2021-04-17] MEDS: Senna/Docusate Sodium 1 Tablet 2 TABLET PO (20:56)
[2021-04-17] MEDS: Acetaminophen 500 MG Tablet 1000 MG PO (20:56)
[2021-04-17] MEDS: MELATONIN 3 MG TABLET PO (20:57)
--- NOTE | 2021-04-17 21:31 | HP.PCM_ITS ---
HPI - General General Date of Admission: 04/17/21 HPI Narrative 04/15/2021 FRANCIS MORTON, is a 66 Male who presents to [facility] Emergency Department with generalized illness. Malaise, tingling sensation below neck. Unable to walk, recent discharge from Inpatient Rehab Unit. Alcohol 348, CT head negative. Unable to care for self at home. 04/15/2021 Admit to Hospital. CIWA protocol, Thiamine, MVI, Folate, PRN Ativan, for alcohol intoxification. Sodium 132, monitor. Metoprolol for systolic congestive heart failure EF 30%. Trend BMP for potassium 5.4. 04/16/2021 [facility] for [facility]. Hyponatremia secondary to alcohol abuse. 04/17/2021 Admit to TCU with debility, here for rehabilitation, strengthening, prior to discharge home with family. On arrival, I asked resident if he wanted to live. He told me yes, I let him know if he has 1 more beer, he will . That if he wants to , I would refer him to hospice, and allow him to drink himself to . Resident admits he has been depressed, his recently, his mother recently, and the pandemic depressed him, and he has been self medicating with alcohol. I let him know I am here to help and if he accepts my help, I will do everything possible to assist him in quitting alcohol, and reengaging with his life. [facility] Medical History Atherosclerotic heart disease of [place] coronary artery without angina pectoris Cellulitis and abscess of upper extremity Cerebellar atrophy Coronary artery disease Dehydration Femoral neck fracture History of alcoholism History of echocardiogram (04/03/17) History of stress test (02/16/10) HTN (hypertension) Hyperlipidemia Ischemic cardiomyopathy Macrocytosis Myocardial infarct Physical debility Physical debility Premature heartbeats Pulmonary nodule Stage 1 mild COPD by GOLD classification Tobacco user Urinary tract infection Ventricular tachycardia Home Medications amiodarone 200 mg tablet 200 mg PO BID #180 tab 06/15/20 [Rx Last Taken 11/14/20 17:30] acetaminophen 1,000 mg PO Q8H PRN PRN #120 tab 04/09/21 [Rx Last Taken Unknown] acidophilus-pectin, citrus 2 tab PO BID #120 tab 04/09/21 [Rx Last Taken Unknown] calcium carbonate-vitamin D3 1 tab PO DAILY #30 tab 04/09/21 [Rx Last Taken Unknown] clopidogrel 75 mg PO DAILY #30 tab 04/09/21 [Rx Last Taken Unknown] magnesium chloride [Mag 64] 128 mg PO BID #120 tab 04/09/21 [Rx Last Taken Unknown] nitroglycerin 0.4 mg SUBLINGUAL Q5M PRN #25 tab 04/09/21 [Rx Last Taken Unknown] Multivitamins,Ther W-Minerals [Multivitamin With Minerals (BKC)] 1 tab PO BREAKFAST 04/17/21 [History Last Taken Unknown] aspirin 81 mg PO DAILY 04/17/21 [History Last Taken Unknown] famotidine 20 mg PO BID 04/17/21 [History Last Taken Unknown] folic acid 1 mg PO BREAKFAST 04/17/21 [History Last Taken Unknown] food supplemt, lactose-reduced [Ensure Enlive] 120 ml PO 4X/DAY 04/17/21 [History Last Taken Unknown] melatonin 3 mg PO QHS PRN PRN #0 tab 04/17/21 [Rx Last Taken Unknown] meloxicam 15 mg PO DAILY 04/17/21 [History Last Taken Unknown] menthol-zinc oxide [Calmoseptine] 1 applic TOPICAL BID 04/17/21 [History Last Taken Unknown] metoprolol succinate 12.5 mg PO DAILY 04/17/21 [History Last Taken Unknown] sennosides-docusate sodium [Stool Softener-Stimulant Laxat] 2 tab PO BID PRN PRN #0 tab 04/17/21 [Rx Last Taken Unknown] thiamine HCl (vitamin B1) [Vitamin B-1] 100 mg PO BIDCM 04/17/21 [History Last Taken Unknown] Allergy/AdvReac Type Severity Reaction Status Date / Time Iodine and Iodide Containing Allergy Severe Rash Verified 04/15/21 00:16 Produc ezetimibe [From Zetia] AdvReac Severe Myalgias Verified 04/15/21 00:16 Xrppfqu-Mws-Vcf Reductase AdvReac Severe Elevated Verified 04/15/21 00:16 Inhibitor Liver Enzymes buspirone [From BuSpar] AdvReac Orthostasis, Verified 04/15/21 00:16 hyponatremia duloxetine [From Cymbalta] AdvReac Orthostasis Verified 04/15/21 00:16 /hyponatrem ia Family History Grandmother Myocardial infarction Grandfather Myocardial infarction Surgical History History of coronary artery stent placement (02/17/19) History of left heart catheterization (LHC) (01/21/19) Hx of knee surgery Presence of automatic (implantable) cardiac defibrillator (10/31/17) Social History household members: family and other details: currently living with his father and his brother Donnell. housing: house number of children: 1 current occupational status: unemployed Smoking Status: Current every day smoker tobacco type: cigarettes how long ago did patient quit smokin11/2017 alcohol intake: current alcohol intake frequency: 3 or more drinks per day Alcohol type: wine substance use type: other details: Has abused RX Ativan in the past well-balanced diet: other details: says that he gets meals on wheels and they pile upin the refrigerator caffeine: No during the past year weight has: other details: decreased 20 lbs since November what type of physical activity do you participate in: none duration: < 15 minutes/day seatbelt use: always do you feel safe at home: Yes ROS Constitutional Constitutional: Denies chills, fever(s) or weight gain ENT HEENT: Denies headache(s), nasal congestion or nasal discharge Cardiovascular Cardiovascular: Denies chest pain or palpitations Respiratory/Chest Respiratory/Chest: Denies cough, excessive phlegm production or shortness of breath with exertion Gastrointestinal Gastrointestinal: Denies abdominal pain, nausea or vomiting Genitourinary Genitourinary: Denies dysuria Musculoskeletal Musculoskeletal: Denies joint pain or joint swelling Integumentary Integumentary: Denies rash or wounds Neurologic Neurologic: Denies focal weakness, numbness or tingling Psychiatric Psychiatric: Reports auditory hallucinations; Denies anxiety, depression, homicidal ideation or suicidal ideation Vital Signs Vital Signs Vital Signs: 04/17/21 12:31 04/17/21 14:13 04/17/21 16:35 Temperature 96.7 F L 96.7 F L Temperature Source Temporal Temporal Pulse Rate 79 79 79 Pulse Rhythm Regular Pulse Strength Normal (2+) Respiratory Rate 18 18 18 Respiratory Effort Normal Non-Labored Respiratory Depth Normal Respiratory Pattern Normal Blood Pressure 147/85 H 147/85 H Blood Pressure Mean 105 105 Blood Pressure Source Monitor Monitor Blood Pressure Position Semi-Fowlers Supine Blood Pressure Location Left Arm Left Arm Pulse Ox 96 96 96 Oxygen Delivery Method Room Air Room Air Room Air Weight Weight: 86.999 kg Body Mass Index (BMI) 25.2 Physical Exam Const alert and oriented x3 General Appearance: cooperative HEENT normocephalic Eyes PERRL and EOMs intact bilaterally Neck supple, no JVD and no carotid bruits Resp normal respiratory effort, normal air movement and clear to auscultation bilaterally Cardio regular rate and regular rhythm GI normal to inspection, nondistended, normoactive bowel sounds, non-tender and non-distended Extremity normal capillary refill General Extremity: Negative for edema Skin no rashes or lesions noted General Skin Exam: no breakdown Psych affect normal Appearance: appropriate Assessment & Plan Assessment/Plan (1) Debility: (2) Alcohol intoxication: (3) Depression: (4) Anxiety: (5) Chronic systolic congestive heart failure: (6) Hyponatremia: (7) Hyperkalemia: (8) Coronary artery disease: (9) Hypertension: (10) Hyperlipidemia: (11) Chronic obstructive pulmonary disease: (12) Ventricular tachycardia: (13) Tobacco abuse: PLAN: 66 year old male with below past medical history hospitalized for alcohol intoxication, complicated by hyponatremia, hyperkalemia, admitted to TCU with debility, here for rehabilitation, strengthening, prior to discharge home with family. * Debility - PT/OT. * Pain - Tylenol 1000MG Q6H PRN pain (1-10). * Bowel - Senna/colace 2 tablets twice daily PRN. * Adult immunization - Administer Prevnar 13, Pneumovax 23, Fluzone, COVID19 vaccine as appropriate. * DVT prophylaxis - Hold, on dual antiplatelet therapy. * Ventricular Tachycardia - Amiodarone 200MG twice daily. * Coronary artery disease - Metoprolol succinate 12.5MG daily, Plavix 75MG daily, Aspirin 81MG daily, NTG 0.4MG SL Q5M PRN. * Nutrition - Ensure 120ML 4x/day. * Skin irritation - Calmoseptine topical BID. * Chronic systolic congestive heart failure - Metoprolol 12.5MG daily, Entresto 24/26MG twice daily x 2 weeks, then 49/51MG twice daily x 2 weeks, then 97/103MG twice daily. * Depression/Anxiety - Celexa 10MG daily x 7 days, then 20MG daily. * Insomnia - Doxepin 25MG QHS. * Alcohol abuse - After discharge refer to 180 alcohol counseling, consider Naltrexone 50MG daily and/or Campral 333MG 2 capsules TID for alcohol abuse treatment.
[2021-04-17] MEDS: Doxepin Hcl 25 MG Capsule PO (22:54)
[2021-04-18 04:24] VITALS: BP 130/78; PULSE 78; RESP 16; TEMP 36.2; O2SAT 95
[2021-04-18] MEDS: Menthol/Lanolin/Calamine/Znox 113 GM Tube 1 APPLIC TOPICAL ×2 (04:27→16:40)
[2021-04-18 04:28] VITALS: PULSE 78
[2021-04-18] MEDS: Clopidogrel Bisulfate 75 MG Tablet PO (04:28)
[2021-04-18] MEDS: Metoprolol(XL)Succ 25 MG Tablet 12.5 MG PO (04:28)
[2021-04-18] MEDS: PARoxetine 10 MG Tablet PO (04:29)
[2021-04-18] MEDS: SACUBITRIL/VALSARTAN 24/26 MG TABLET 1 EACH PO ×2 (04:29→16:39)
[2021-04-18 05:52] LABS: Absolute Lymphocyte Count 1.76 X10^3/uL (0.83-4.51); Absolute Neutrophil Count 4.7 X10^3/uL (2.0-7.7); Basophil# 0.02 X10^3/uL; Basophil% 0.2 % (0-1); Eosinophil# 1.89 X10^3/uL; Eosinophils% 20.9 % (0-5); Hematocrit 36.3 % (40-54); Hemoglobin 12.4 g/dL (13.0-16.5); Lymphocyte # 1.76 X10^3/ul (0.83-4.51); Lymphocyte % 19.4 % (19-41); Mean Corp Hgb Conc 34.2 g/dL (32-36); Mean Corpuscular Hgb 35.4 pg (27.0-32.0); Mean Corpuscular Volume 103.7 fL (80-94); Mean Platelet Vol. 9.3 fl (6.2-12.0); Monocyte# 0.63 X10^3/uL; NRBC Flagged by Analyzer 0 % (0-5); Neutrophil % 51.9 % (47-70); Platelet Count 248 K/mm3 (150-450); RBC Distribution Width SD 53.2 fl (35.1-43.9); White Blood Count 9.1 K/mm3 (4.4-11.0)
[2021-04-18 06:06] LABS: Anion Gap 5 (5-15); BUN 7 mg/dL (7-18); BUN/Creat Ratio 13.2 RATIO (10-20); Calcium,Total 8.7 mg/dL (8.5-10.1); Chloride 103 mmol/L (98-107); Creatinine, Serum 0.53 mg/dL (0.70-1.30); EST Glomerular Filtration Rate 165 mL/min (>60); Est Glom Filt Rate - Afr Amer 200 mL/min (>60); Estimated Creatinine Clearance 157.04 ml/min; Glucose 90 mg/dL (74-106); Potassium 4.3 mmol/L (3.5-5.1); Sodium Level 136 mmol/L (136-145)
[2021-04-18] MEDS: Amiodarone 200 MG Tablet PO ×2 (08:56→16:39)
[2021-04-18] MEDS: Aspirin E.C. 81 MG Tablet PO (08:56)
[2021-04-18 08:58] VITALS: BP 138/75; PULSE 92
[2021-04-18 10:00] VITALS: PULSE 82; RESP 16; O2SAT 94
[2021-04-18] MEDS: Tuberculin,Purif.prot.deriv. 50 TU/ML Vial 0.1 ML ID (11:41)
[2021-04-18] MEDS: Acetaminophen 500 MG Tablet 1000 MG PO ×2 (13:28→21:37)
--- NOTE | 2021-04-18 14:51 | PHA.CONS_ITS ---
Progress Note - Pharmacy Subjective: TCU Admission Objective: Allergies Iodine and Iodide Containing Produc Allergy (Severe, Verified 04/15/21 00:16) Rash ezetimibe [From Zetia] Adverse Reaction (Severe, Verified 04/15/21 00:16) Myalgias Nqlunod-Vtj-Efs Reductase Inhibitor Adverse Reaction (Severe, Verified 04/15/21 00:16) Elevated Liver Enzymes buspirone [From BuSpar] Adverse Reaction (Verified 04/15/21 00:16) Orthostasis, hyponatremia duloxetine [From Cymbalta] Adverse Reaction (Verified 04/15/21 00:16) Orthostasis/hyponatremia Current Medications Generic Name Dose Route Start Last Admin Trade Name Freq PRN Reason Stop Dose Admin Acetaminophen 1,000 mg 04/17/21 12:53 04/18/21 13:28 Acetaminophen 500 Mg Tablet PO 1,000 mg Q8H PRN PRN Administration Pain 1-10 Or Fever Amiodarone HCl 200 mg 04/17/21 17:00 04/18/21 08:56 Amiodarone 200 Mg Tablet PO 200 mg BIDCM JENNIFER Administration Aspirin 81 mg 04/18/21 08:00 04/18/21 08:56 Aspirin E.C. 81 Mg Tablet PO 81 mg BREAKFAST JENNIFER Administration Calamine/Phenol 1 applic 04/17/21 18:00 04/18/21 04:27 Menthol/Lanolin/Calamine/Znox 113 Gm Tube TOPICAL 1 applic BID JENNIFER Administration Protocol Clopidogrel Bisulfate 75 mg 04/18/21 06:00 04/18/21 04:28 Clopidogrel Bisulfate 75 Mg Tablet PO 75 mg DAILY JENNIFER Administration Doxepin HCl 25 mg 04/17/21 22:00 04/17/21 22:54 Doxepin Hcl 25 Mg Capsule PO 25 mg QHS JENNIFER Administration Metoprolol Succinate 12.5 mg 04/18/21 06:00 04/18/21 04:28 Metoprolol(Xl)Succ 25 Mg Tablet PO 12.5 mg DAILY JENNIFER Administration Nitroglycerin 0.4 mg 04/17/21 13:10 Nitroglycerin (Inpatient Use) 0.4 Mg Tab.Subl SL Q5M PRN Angina Nutritional Formula (Lactose Free) 120 ml 04/17/21 17:00 04/18/21 11:40 Ensure Enlive 120 Ml Liquid PO Not Given 4X/DAY JENNIFER Nystatin 1 applic 04/18/21 18:00 Nystatin Powder 15gm Bottle TOPICAL BID ON LICENSE OF [facility] Protocol Paroxetine HCl 10 mg 04/18/21 06:00 04/18/21 04:29 Paroxetine 10 Mg Tablet PO 04/25/21 06:01 10 mg DAILY JENNIFER Administration Paroxetine HCl 20 mg 04/26/21 06:00 Paroxetine 20 Mg Tablet PO DAILY JENNIFER Sacubitril/Valsartan 1 each 04/18/21 06:00 04/18/21 04:29 Sacubitril/Valsartan 24/26 Mg Tablet PO 05/02/21 18:00 1 each BID JENNIFER Administration Sacubitril/Valsartan 1 each 05/03/21 06:00 Sacubitril/Valsartan 49-51 Mg Tablet PO 05/17/21 18:00 BID JENNIFER Sacubitril/Valsartan 1 each 05/18/21 06:00 Sacubitril/Valsartan 97-103 Mg Tablet PO BID JENNIFER Senna/Docusate Sodium 2 tablet 04/17/21 12:53 04/17/21 20:56 Senna/Docusate Sodium 1 Tablet PO 2 tablet BID PRN PRN Administration Constipation Sodium Chloride 10 - 40 ml 04/17/21 14:57 04/17/21 20:47 0.9% Saline Lock 10 Ml Syringe IV 10 ml UD PRN Administration SALINE FLUSH Tuberculin PPD 0.1 ml 04/25/21 10:00 Tuberculin,Purif.Prot.Deriv. 50 Tu/Ml Vial ID 04/25/21 10:01 X1 ONE Problem List (Last Reviewed 04/17/21 @ 21:[address] Tam Silver MD) Tobacco abuse (Acute) Ventricular tachycardia (Acute) Chronic obstructive pulmonary disease (Chronic) Hyperlipidemia (Acute) Hypertension (Chronic) Coronary artery disease (Acute) Hyperkalemia (Acute) Hyponatremia (Acute) Chronic systolic congestive heart failure (Chronic) Anxiety (Acute) Depression (Acute) Alcohol intoxication (Acute) Debility (Acute) Benzodiazepine abuse in remission (Acute) Anxiety (Acute) Debility (Acute) Hypokalemia (Acute) Hypomagnesemia (Acute) Hyponatremia (Acute) Frequent falls (Acute) Alcoholic cardiomyopathy (Suspected) Cognitive dysfunction, alcohol-related (Acute) Unintentional weight loss (Acute) Depression (Acute) Declining functional status (Acute) Pulmonary nodule (Acute) Cerebellar atrophy (Acute) HTN (hypertension) (Chronic) Stage 1 mild COPD by GOLD classification (Chronic) Hyperlipidemia (Chronic) Atherosclerotic heart disease of [place] coronary artery without angina pectoris (Chronic) History of coronary artery stent placement (Chronic 02/17/19) Tobacco user (Chronic) History of alcoholism (Chronic) Vital Signs Temp Pulse Resp BP Pulse Ox 97.1 F L 92 16 138/75 H 95 04/18/21 04:24 04/18/21 08:58 04/18/21 04:24 04/18/21 08:58 04/18/21 04:24 Oxygen Delivery Method Room Air Weight: 86.999 kg Body Mass Index (BMI) 25.2 Sodium 136 mmol/L (136-145) 04/18/21 05:28 Potassium 4.3 mmol/L (3.5-5.1) 04/18/21 05:28 Chloride 103 mmol/L (98-107) 04/18/21 05:28 Carbon Dioxide 28.0 mmol/L (21.0-32.0) 04/18/21 05:28 Anion Gap 5 (5-15) 04/18/21 05:28 BUN 7 mg/dL (7-18) 04/18/21 05:28 Creatinine 0.53 mg/dL (0.70-1.30) L 04/18/21 05:28 Est GFR (MDRD) Af Amer 200 mL/min (>60) 04/18/21 05:28 Est GFR (MDRD) Non-Af 165 mL/min (>60) 04/18/21 05:28 BUN/Creatinine Ratio 13.2 RATIO (10-20) 04/18/21 05:28 Glucose 90 mg/dL (74-106) 04/18/21 05:28 Assessment/Plan: 1. Pain: acetaminophen 1000mg PO Q6H PRN pain 1-08/12. Please continue to monitor for increased pain and PRN usage. 2. Ventricular tachycardia: amiodarone 200mg PO BID. Please continue to monitor potassium (last 4.3mmol/L) and BP (last 138/75). 3. CAD/CHF: metoprolol succinate 12.5mg PO daily, clopidogrel 75mg PO daily, aspirin 81mg PO daily breakfast, nitroglycerin 0.4mg SL Q5M PRN angina, Entresto 24/26mg PO BID x 2 weeks, then 49/51mg PO BID x 2 weeks, then 97/103mg BID thereafter. Please continue to monitor BP (last 138/75), HR (last 92), S/S of bleeding, hemoglobin (last 12.4g/dL), angina, and cough. Psychotropic Medications: 1. Depression/anxiety: paroxetine 10mg PO daily for 1 week, then 20mg PO daily. This is a new start, GDR not appropriate. Please continue to monitor for GI side effects and suicidal ideation. 2. Insomnia: doxepin 25mg PO QHS. Please continue to monitor for insomnia, urinary retention, and constipation. New medication, GDR not appropriate. Unnecessary Medications: None Bowel Regimen: senna/docusate 2T PO BID PRN constipation. Please continue to monitor for constipation and PRN usage. Date of Note:: 04/18/21
[2021-04-18 16:00] VITALS: BP 131/69; PULSE 83; RESP 19; TEMP 36.5; O2SAT 97
[2021-04-18] MEDS: Nystatin Powder 15gm Bottle 1 APPLIC TOPICAL (16:40)
--- NOTE | 2021-04-18 16:43 | NURSING ---
This nurse Called to pt's room IV had fallen out applied pressure with scant amount of bleeding applied 2x2.
[2021-04-18] MEDS: Meloxicam 15 MG Tablet PO (20:07)
[2021-04-18] MEDS: Doxepin Hcl 25 MG Capsule PO (21:38)
[2021-04-19 06:47] VITALS: PULSE 72
[2021-04-19] MEDS: Clopidogrel Bisulfate 75 MG Tablet PO (06:47)
[2021-04-19] MEDS: Metoprolol(XL)Succ 25 MG Tablet 12.5 MG PO (06:47)
[2021-04-19] MEDS: Menthol/Lanolin/Calamine/Znox 113 GM Tube 1 APPLIC TOPICAL ×2 (06:48→18:03)
[2021-04-19] MEDS: Meloxicam 15 MG Tablet PO (06:48)
[2021-04-19] MEDS: SACUBITRIL/VALSARTAN 24/26 MG TABLET 1 EACH PO ×2 (06:48→18:03)
[2021-04-19] MEDS: Nystatin Powder 15gm Bottle 1 APPLIC TOPICAL ×2 (06:49→18:04)
[2021-04-19] MEDS: PARoxetine 10 MG Tablet PO (06:49)
[2021-04-19] MEDS: Acetaminophen 500 MG Tablet 1000 MG PO ×3 (06:50→22:36)
[2021-04-19] MEDS: Aspirin E.C. 81 MG Tablet PO (08:00)
[2021-04-19] MEDS: Amiodarone 200 MG Tablet PO ×2 (08:01→18:02)
[2021-04-19 09:31] VITALS: PULSE 78; RESP 18; O2SAT 96
[2021-04-19] MEDS: Senna/Docusate Sodium 1 Tablet 2 TABLET PO (13:19)
[2021-04-19 16:00] VITALS: BP 130/79; PULSE 90; RESP 16; TEMP 36.6; O2SAT 96
[2021-04-19] MEDS: Baclofen 10 MG Tablet PO (22:35)
[2021-04-19] MEDS: DOXEPIN HCL 50 MG CAPSULE 100 MG PO (22:35)
[2021-04-20 05:45] VITALS: BP 137/66; PULSE 81; RESP 14; TEMP 36.4; O2SAT 93
[2021-04-20 05:50] VITALS: BP 137/66; PULSE 81
[2021-04-20] MEDS: Acetaminophen 500 MG Tablet 1000 MG PO ×3 (05:50→19:46)
[2021-04-20] MEDS: PARoxetine 10 MG Tablet PO (05:50)
[2021-04-20] MEDS: Metoprolol(XL)Succ 25 MG Tablet 12.5 MG PO (05:50)
[2021-04-20] MEDS: Clopidogrel Bisulfate 75 MG Tablet PO (05:50)
[2021-04-20] MEDS: Baclofen 10 MG Tablet PO ×3 (05:51→19:50)
[2021-04-20] MEDS: SACUBITRIL/VALSARTAN 24/26 MG TABLET 1 EACH PO ×2 (05:51→17:37)
[2021-04-20] MEDS: Meloxicam 15 MG Tablet PO (05:51)
[2021-04-20] MEDS: Menthol/Lanolin/Calamine/Znox 113 GM Tube 1 APPLIC TOPICAL ×2 (05:53→17:37)
[2021-04-20] MEDS: Nystatin Powder 15gm Bottle 1 APPLIC TOPICAL ×2 (05:53→17:40)
--- NOTE | 2021-04-20 11:34 | NURSING ---
Pt sleeping during medication pass so 8 am medications were given later that morning, okay per pharmacist.
[2021-04-20] MEDS: Aspirin E.C. 81 MG Tablet PO (11:37)
[2021-04-20] MEDS: Amiodarone 200 MG Tablet PO ×2 (11:38→17:37)
--- NOTE | 2021-04-20 12:08 | CASEMGMT ---
Social Work Pt requesting to speak with SW. Pt requesting to get Covid vaccine and frustrated with quarantine in room. Pt inquiring about insurance coverage and discharge information. SW notified Anna Joseph, director of pt desire to be vaccinated and pt will be placed on list for next week's vaccine schedule. Pt updated and appreciative. SW explained the quarantine policy that has been set forth. Pt frustrated and feeling claustrophobic in his room. SW offered emotional support and explained any SNF would be held under the same quarantine guidelines. Pt notified that quarantine will end 05/01. SW offered to bring things to pt room to help pass time such as books, puzzles ect. Pt requesting deck of cards and SW provided to pt. SW explained Medicare coverage and that pt liability for copay would begin on 05/07. Pt expresses understanding and states he will not be staying that long. SW encouraged pt to speak to SW if he decides to discharge and SW can assist in setting up a discharge plan. Pt expresses understanding. SW to continue to follow for support and discharge planning. Soledad LINDA
[2021-04-20 15:03] VITALS: BP 106/58; PULSE 88; RESP 18; TEMP 36.3; O2SAT 96
[2021-04-20 17:34] VITALS: BP 125/68; PULSE 84
[2021-04-20] MEDS: DOXEPIN HCL 50 MG CAPSULE 100 MG PO (19:48)
--- NOTE | 2021-04-21 00:48 | NURSING ---
Addendum entered by Kate Florez 04/21/21 00:59: Pt then stood in doorway of room with mask and is to be in quarantine. Instructed pt he in not permitted to complete transfers and ambulation without assistance. Also instructed he is to wear a rossi Original Note: Pt completed unassisted transfer in room. Sto
--- NOTE | 2021-04-21 01:02 | NURSING ---
Pt completed an unassisted transfer and in doorway of room with wheeled walker. Asking for Tylenol but acknowledges he is not due to receive any medication. Instructed pt he is to call for staff assist w/ transfers and ambulation. Also instructed if he is to leave the room he will need to wear a mask as he is in quarantine status. Gait steady w/ supervised ambulation.
[2021-04-21 05:00] VITALS: BP 114/67; RESP 16; TEMP 36.9; O2SAT 93
[2021-04-21 05:02] VITALS: BP 114/67; PULSE 73
[2021-04-21] MEDS: PARoxetine 10 MG Tablet PO (05:02)
[2021-04-21] MEDS: Metoprolol(XL)Succ 25 MG Tablet 12.5 MG PO (05:02)
[2021-04-21] MEDS: Clopidogrel Bisulfate 75 MG Tablet PO (05:02)
[2021-04-21] MEDS: Baclofen 10 MG Tablet PO ×3 (05:03→22:25)
[2021-04-21] MEDS: Meloxicam 15 MG Tablet PO (05:03)
[2021-04-21] MEDS: Acetaminophen 500 MG Tablet 1000 MG PO ×2 (05:04→13:28)
[2021-04-21] MEDS: SACUBITRIL/VALSARTAN 24/26 MG TABLET 1 EACH PO ×2 (05:05→17:41)
[2021-04-21] MEDS: Menthol/Lanolin/Calamine/Znox 113 GM Tube 1 APPLIC TOPICAL ×2 (05:07→17:41)
[2021-04-21] MEDS: Nystatin Powder 15gm Bottle 1 APPLIC TOPICAL ×2 (05:07→17:42)
[2021-04-21] MEDS: Amiodarone 200 MG Tablet PO ×2 (08:13→17:40)
[2021-04-21] MEDS: Aspirin E.C. 81 MG Tablet PO (08:14)
[2021-04-21 15:44] VITALS: BP 113/71; PULSE 82; RESP 16; TEMP 36.6; O2SAT 94
--- NOTE | 2021-04-21 21:20 | NURSING ---
Pt c\o having indigestion, states he already tried crackers and sprite, requesting Mylanta as that is what he takes at home, Dr. Silver notified and new order for Mylanta obtained.
[2021-04-21] MEDS: Mag Hydrox/Al Hydrox/Simeth 30 ML UDC 15 ML PO (21:53)
[2021-04-21] MEDS: DOXEPIN HCL 50 MG CAPSULE 100 MG PO (22:27)
[2021-04-22 06:08] VITALS: BP 105/57; PULSE 74; RESP 16; TEMP 36.5; O2SAT 94
[2021-04-22 06:10] VITALS: BP 105/57; PULSE 74
[2021-04-22] MEDS: Baclofen 10 MG Tablet PO ×3 (06:10→20:58)
[2021-04-22] MEDS: Metoprolol(XL)Succ 25 MG Tablet 12.5 MG PO (06:10)
[2021-04-22] MEDS: PARoxetine 10 MG Tablet PO (06:11)
[2021-04-22] MEDS: Clopidogrel Bisulfate 75 MG Tablet PO (06:11)
[2021-04-22] MEDS: Meloxicam 15 MG Tablet PO (06:11)
[2021-04-22] MEDS: SACUBITRIL/VALSARTAN 24/26 MG TABLET 1 EACH PO ×2 (06:12→17:32)
[2021-04-22] MEDS: Menthol/Lanolin/Calamine/Znox 113 GM Tube 1 APPLIC TOPICAL ×2 (06:13→17:33)
[2021-04-22] MEDS: Nystatin Powder 15gm Bottle 1 APPLIC TOPICAL ×2 (06:13→17:33)
[2021-04-22] MEDS: Amiodarone 200 MG Tablet PO ×2 (08:11→17:32)
[2021-04-22] MEDS: Aspirin E.C. 81 MG Tablet PO (08:12)
[2021-04-22] MEDS: Mag Hydrox/Al Hydrox/Simeth 30 ML UDC 15 ML PO ×2 (12:32→20:48)
[2021-04-22] MEDS: Acetaminophen 500 MG Tablet 1000 MG PO ×2 (13:42→20:59)
[2021-04-22 13:52] VITALS: PULSE 81; RESP 14; O2SAT 96
[2021-04-22 16:05] VITALS: BP 132/52; PULSE 81; RESP 14; TEMP 36.8; O2SAT 96
[2021-04-22] MEDS: DOXEPIN HCL 50 MG CAPSULE 100 MG PO (20:58)
[2021-04-23] MEDS: Acetaminophen 500 MG Tablet 1000 MG PO ×3 (07:05→21:48)
[2021-04-23 07:06] VITALS: BP 113/68; PULSE 68
[2021-04-23] MEDS: Nystatin Powder 15gm Bottle 1 APPLIC TOPICAL (07:06)
[2021-04-23] MEDS: PARoxetine 10 MG Tablet PO (07:06)
[2021-04-23] MEDS: Metoprolol(XL)Succ 25 MG Tablet 12.5 MG PO (07:06)
[2021-04-23] MEDS: Baclofen 10 MG Tablet PO (07:06)
[2021-04-23] MEDS: SACUBITRIL/VALSARTAN 24/26 MG TABLET 1 EACH PO ×2 (07:07→17:58)
[2021-04-23] MEDS: Meloxicam 15 MG Tablet PO (07:07)
[2021-04-23] MEDS: Clopidogrel Bisulfate 75 MG Tablet PO (07:08)
[2021-04-23] MEDS: Menthol/Lanolin/Calamine/Znox 113 GM Tube 1 APPLIC TOPICAL (07:08)
[2021-04-23] MEDS: Amiodarone 200 MG Tablet PO ×2 (08:18→17:57)
[2021-04-23] MEDS: Aspirin E.C. 81 MG Tablet PO (08:18)
[2021-04-23 10:00] VITALS: PULSE 74; RESP 16; O2SAT 96
--- NOTE | 2021-04-23 12:41 | CASEMGMT ---
Social Work Notified by nursing staff that patient brother, Donnell request to speak with a clinical social worker. Telephone call to Donnell, no answer. Voicemail box not set up and unable to leave a message. Will continue to follow. Margarita HAMILTON, JORDAN
[2021-04-23 15:38] VITALS: BP 121/63; PULSE 74; RESP 17; TEMP 36.8; O2SAT 96
--- NOTE | 2021-04-23 15:43 | CASEMGMT ---
Social Work Brief interview for mental status (BIMS) and resident mood assessment (PHQ-9) completed on this day. Margarita HAMILTON, BEENAS
[2021-04-23] MEDS: DOXEPIN HCL 50 MG CAPSULE 100 MG PO (21:48)
[2021-04-24 05:00] VITALS: BP 111/52; PULSE 69; RESP 16; TEMP 36.2; O2SAT 95
[2021-04-24] MEDS: Menthol/Lanolin/Calamine/Znox 113 GM Tube 1 APPLIC TOPICAL ×2 (06:49→17:11)
[2021-04-24 06:50] VITALS: PULSE 69
[2021-04-24] MEDS: Acetaminophen 500 MG Tablet 1000 MG PO ×2 (06:50→15:00)
[2021-04-24] MEDS: PARoxetine 10 MG Tablet PO (06:50)
[2021-04-24] MEDS: Clopidogrel Bisulfate 75 MG Tablet PO (06:50)
[2021-04-24] MEDS: Metoprolol(XL)Succ 25 MG Tablet 12.5 MG PO (06:50)
[2021-04-24] MEDS: Nystatin Powder 15gm Bottle 1 APPLIC TOPICAL ×2 (06:51→17:11)
[2021-04-24] MEDS: SACUBITRIL/VALSARTAN 24/26 MG TABLET 1 EACH PO ×2 (06:51→17:10)
[2021-04-24] MEDS: Amiodarone 200 MG Tablet PO ×2 (09:23→17:10)
[2021-04-24] MEDS: Aspirin E.C. 81 MG Tablet PO (09:24)
[2021-04-24 15:41] VITALS: BP 124/80; PULSE 74; RESP 16; TEMP 36.7; O2SAT 95
--- NOTE | 2021-04-24 16:59 | NURSING ---
Resident notified of resident testing positive for COVID, brother does not have voicemail.
[2021-04-24] MEDS: Doxepin Hcl 25 MG Capsule 75 MG PO (21:50)
[2021-04-25 05:00] VITALS: BP 116/50; PULSE 66; RESP 16; TEMP 36.2; O2SAT 96
[2021-04-25 05:44] LABS: Absolute Lymphocyte Count 1.74 X10^3/uL (0.83-4.51); Absolute Neutrophil Count 2.5 X10^3/uL (2.0-7.7); Basophil# 0.05 X10^3/uL; Basophil% 0.7 % (0-1); Eosinophil# 1.78 X10^3/uL; Eosinophils% 24.7 % (0-5); Hematocrit 34.2 % (40-54); Hemoglobin 11.6 g/dL (13.0-16.5); Lymphocyte # 1.74 X10^3/ul (0.83-4.51); Lymphocyte % 24.2 % (19-41); Mean Corp Hgb Conc 33.9 g/dL (32-36); Mean Corpuscular Hgb 36.1 pg (27.0-32.0); Mean Corpuscular Volume 106.5 fL (80-94); Mean Platelet Vol. 9.4 fl (6.2-12.0); Monocyte# 1.13 X10^3/uL; Monocyte% 15.7 % (0-10); NRBC Flagged by Analyzer 0 % (0-5); Neutrophil # 2.45 X10^3/uL (2.7-7.7); Platelet Count 288 K/mm3 (150-450); RBC Distribution Width CV 15.3 % (11.6-14.6); RBC Distribution Width SD 60.2 fl (35.1-43.9); Red Blood Count 3.21 M/mm3 (4.6-6.2); White Blood Count 7.2 K/mm3 (4.4-11.0)
[2021-04-25 05:58] LABS: Anion Gap 3 (5-15); BUN 14 mg/dL (7-18); BUN/Creat Ratio 19.9 RATIO (10-20); Calcium,Total 8.7 mg/dL (8.5-10.1); Chloride 108 mmol/L (98-107); EST Glomerular Filtration Rate 120 mL/min (>60); Est Glom Filt Rate - Afr Amer 145 mL/min (>60); Glucose 92 mg/dL (74-106); Potassium 4.5 mmol/L (3.5-5.1); Sodium Level 138 mmol/L (136-145)
[2021-04-25 06:00] VITALS: PULSE 66
[2021-04-25] MEDS: Metoprolol(XL)Succ 25 MG Tablet 12.5 MG PO (06:00)
[2021-04-25] MEDS: Acetaminophen 500 MG Tablet 1000 MG PO ×3 (06:00→22:31)
[2021-04-25] MEDS: Clopidogrel Bisulfate 75 MG Tablet PO (06:00)
[2021-04-25] MEDS: SACUBITRIL/VALSARTAN 24/26 MG TABLET 1 EACH PO ×2 (06:00→18:20)
[2021-04-25] MEDS: Meloxicam 15 MG Tablet PO (06:00)
[2021-04-25] MEDS: Menthol/Lanolin/Calamine/Znox 113 GM Tube 1 APPLIC TOPICAL ×2 (06:01→18:19)
[2021-04-25] MEDS: PARoxetine 10 MG Tablet PO (06:01)
[2021-04-25] MEDS: Nystatin Powder 15gm Bottle 1 APPLIC TOPICAL ×2 (06:01→18:19)
[2021-04-25] MEDS: Aspirin E.C. 81 MG Tablet PO (09:08)
[2021-04-25] MEDS: Amiodarone 200 MG Tablet PO ×2 (09:10→18:18)
--- NOTE | 2021-04-25 10:32 | CASEMGMT ---
Plan of Care meeting held with pt present. Pt is participating in PT/OT and progressing well. Pt lives at home alone and plans to return home alone at time of discharge. No discharge date has been set at this time as pt is continuing to benefit from stay in TCU. Pt would like outpatient PT at [facility] at time of discharge and is requesting the [facility] Van be used for transportation. SW will make arrangements for the start of care and transportation at [facility]. Continue with treatment plan at this time. ALEXEI Solis
[2021-04-25] MEDS: Tuberculin,Purif.prot.deriv. 50 TU/ML Vial 0.1 ML ID (11:41)
[2021-04-25 17:00] VITALS: BP 115/73; PULSE 84; RESP 14; TEMP 36.7; O2SAT 97
[2021-04-25 18:22] VITALS: BP 134/78; PULSE 68
[2021-04-25] MEDS: Doxepin Hcl 25 MG Capsule 75 MG PO (22:29)
[2021-04-25 23:57] VITALS: PULSE 82; RESP 12
[2021-04-26 05:00] VITALS: BP 123/76; PULSE 70; RESP 18; TEMP 36.7; O2SAT 96
[2021-04-26 06:20] VITALS: BP 123/76; PULSE 70
[2021-04-26] MEDS: Metoprolol(XL)Succ 25 MG Tablet 12.5 MG PO (06:20)
[2021-04-26] MEDS: Paroxetine 20 MG Tablet PO (06:20)
[2021-04-26] MEDS: Meloxicam 15 MG Tablet PO (06:20)
[2021-04-26] MEDS: Menthol/Lanolin/Calamine/Znox 113 GM Tube 1 APPLIC TOPICAL ×2 (06:20→17:38)
[2021-04-26] MEDS: Clopidogrel Bisulfate 75 MG Tablet PO (06:21)
[2021-04-26] MEDS: Acetaminophen 500 MG Tablet 1000 MG PO ×3 (06:21→22:07)
[2021-04-26] MEDS: Nystatin Powder 15gm Bottle 1 APPLIC TOPICAL ×2 (06:22→17:39)
[2021-04-26] MEDS: SACUBITRIL/VALSARTAN 24/26 MG TABLET 1 EACH PO ×2 (06:22→17:37)
[2021-04-26] MEDS: Aspirin E.C. 81 MG Tablet PO (07:54)
[2021-04-26] MEDS: Amiodarone 200 MG Tablet PO ×2 (07:54→17:37)
[2021-04-26 10:00] VITALS: PULSE 79; RESP 16; O2SAT 97
[2021-04-26 14:24] VITALS: BP 130/54; PULSE 76; RESP 16; TEMP 36.9; O2SAT 94
[2021-04-26] MEDS: Doxepin Hcl 25 MG Capsule 75 MG PO (22:07)
[2021-04-27] MEDS: Acetaminophen 500 MG Tablet 1000 MG PO ×3 (06:31→21:03)
[2021-04-27] MEDS: Paroxetine 20 MG Tablet PO (06:31)
[2021-04-27] MEDS: Clopidogrel Bisulfate 75 MG Tablet PO (06:32)
[2021-04-27] MEDS: Meloxicam 15 MG Tablet PO (06:32)
[2021-04-27] MEDS: Nystatin Powder 15gm Bottle 1 APPLIC TOPICAL ×2 (06:32→17:00)
[2021-04-27 06:33] VITALS: BP 118/54; PULSE 71
[2021-04-27] MEDS: SACUBITRIL/VALSARTAN 24/26 MG TABLET 1 EACH PO ×2 (06:33→17:02)
[2021-04-27] MEDS: Metoprolol(XL)Succ 25 MG Tablet 12.5 MG PO (06:33)
[2021-04-27] MEDS: Menthol/Lanolin/Calamine/Znox 113 GM Tube 1 APPLIC TOPICAL ×2 (06:33→17:00)
[2021-04-27 06:36] VITALS: BP 118/54; PULSE 71; RESP 16; TEMP 36.5; O2SAT 96
[2021-04-27] MEDS: Amiodarone 200 MG Tablet PO ×2 (07:55→17:02)
[2021-04-27] MEDS: Aspirin E.C. 81 MG Tablet PO (07:55)
--- NOTE | 2021-04-27 13:30 | CASEMGMT ---
Social Work Pt requesting Van transportation home at time of discharge which will be the end of next week. SW spoke with [facility] and they are able to take pt home on 05/04/21 at 2pm. IDT team aware and feel pt can d/c at this time. Pt notified and agreeable to discharge on this date. Outpatient PT/OT set with at [facility] on 05/09/21 with [facility] to transport at 0930. Pt aware and agreeable. Order faxed to [email or web address]. ROLANDO to follow for further discharge planning. Discharge Date: 05/04/21 Discharge Disposition: Home alone, outpatient therapy at [facility] ALEXEI Solis
[2021-04-27 15:08] VITALS: BP 107/55; PULSE 75; RESP 14; TEMP 36.6; O2SAT 95
[2021-04-27] MEDS: Doxepin Hcl 25 MG Capsule 75 MG PO (21:03)
[2021-04-27 22:53] VITALS: PULSE 74; RESP 14; O2SAT 93
[2021-04-28 06:29] VITALS: BP 117/54; PULSE 63; RESP 16; TEMP 36.3; O2SAT 95
[2021-04-28] MEDS: Menthol/Lanolin/Calamine/Znox 113 GM Tube 1 APPLIC TOPICAL ×2 (06:30→16:50)
[2021-04-28] MEDS: SACUBITRIL/VALSARTAN 24/26 MG TABLET 1 EACH PO ×2 (06:31→16:52)
[2021-04-28] MEDS: Meloxicam 15 MG Tablet PO (06:31)
[2021-04-28] MEDS: Nystatin Powder 15gm Bottle 1 APPLIC TOPICAL ×2 (06:31→16:50)
[2021-04-28] MEDS: Clopidogrel Bisulfate 75 MG Tablet PO (06:31)
[2021-04-28 06:32] VITALS: BP 117/54; PULSE 63
[2021-04-28] MEDS: Metoprolol(XL)Succ 25 MG Tablet 12.5 MG PO (06:32)
[2021-04-28] MEDS: Paroxetine 20 MG Tablet PO (06:33)
[2021-04-28] MEDS: Acetaminophen 500 MG Tablet 1000 MG PO ×3 (06:34→21:39)
[2021-04-28] MEDS: Amiodarone 200 MG Tablet PO ×2 (09:22→16:52)
[2021-04-28] MEDS: Aspirin E.C. 81 MG Tablet PO (09:22)
[2021-04-28 13:07] VITALS: PULSE 77; RESP 14; O2SAT 92
[2021-04-28 16:14] VITALS: BP 95/75; PULSE 77; RESP 16; TEMP 36.3; O2SAT 92
[2021-04-28] MEDS: Doxepin Hcl 25 MG Capsule 75 MG PO (21:38)
[2021-04-29 05:00] VITALS: BP 104/62; PULSE 67; RESP 16; TEMP 36.6; O2SAT 94
[2021-04-29 05:42] VITALS: PULSE 67
[2021-04-29] MEDS: Menthol/Lanolin/Calamine/Znox 113 GM Tube 1 APPLIC TOPICAL ×2 (05:42→17:33)
[2021-04-29] MEDS: Metoprolol(XL)Succ 25 MG Tablet 12.5 MG PO (05:42)
[2021-04-29] MEDS: Paroxetine 20 MG Tablet PO (05:42)
[2021-04-29] MEDS: SACUBITRIL/VALSARTAN 24/26 MG TABLET 1 EACH PO ×2 (05:42→17:33)
[2021-04-29] MEDS: Clopidogrel Bisulfate 75 MG Tablet PO (05:43)
[2021-04-29] MEDS: Acetaminophen 500 MG Tablet 1000 MG PO ×3 (05:43→22:27)
[2021-04-29] MEDS: Meloxicam 15 MG Tablet PO (05:43)
[2021-04-29] MEDS: Nystatin Powder 15gm Bottle 1 APPLIC TOPICAL ×2 (05:44→17:33)
[2021-04-29] MEDS: Amiodarone 200 MG Tablet PO ×2 (08:19→17:32)
[2021-04-29] MEDS: Aspirin E.C. 81 MG Tablet PO (08:19)
[2021-04-29 08:22] VITALS: BP 107/42; PULSE 42
[2021-04-29 18:34] VITALS: BP 134/69; PULSE 68; RESP 16; TEMP 37; O2SAT 95
[2021-04-29] MEDS: Doxepin Hcl 25 MG Capsule 75 MG PO (22:28)
[2021-04-29 22:44] VITALS: PULSE 86; RESP 16; O2SAT 96
[2021-04-30 05:00] VITALS: BP 102/58; PULSE 68; RESP 16; TEMP 36.1; O2SAT 93
[2021-04-30 06:50] VITALS: PULSE 68
[2021-04-30] MEDS: Metoprolol(XL)Succ 25 MG Tablet 12.5 MG PO (06:50)
[2021-04-30] MEDS: Meloxicam 15 MG Tablet PO (06:51)
[2021-04-30] MEDS: Acetaminophen 500 MG Tablet 1000 MG PO ×3 (06:51→22:22)
[2021-04-30] MEDS: SACUBITRIL/VALSARTAN 24/26 MG TABLET 1 EACH PO ×2 (06:51→17:25)
[2021-04-30] MEDS: Paroxetine 20 MG Tablet PO (06:51)
[2021-04-30] MEDS: Clopidogrel Bisulfate 75 MG Tablet PO (06:51)
[2021-04-30] MEDS: Amiodarone 200 MG Tablet PO ×2 (07:48→17:26)
[2021-04-30] MEDS: Aspirin E.C. 81 MG Tablet PO (07:48)
--- NOTE | 2021-04-30 09:33 | MDS.RN ---
Information for the mds was obtained from review of the clinical record, interview of resident, staff, and direct observation of resident's care.
[2021-04-30 10:00] VITALS: PULSE 70; RESP 16; O2SAT 96
[2021-04-30 14:09] VITALS: BP 129/74; PULSE 84; RESP 18; TEMP 36.1; O2SAT 96
[2021-04-30] MEDS: Menthol/Lanolin/Calamine/Znox 113 GM Tube 1 APPLIC TOPICAL (17:26)
[2021-04-30] MEDS: Nystatin Powder 15gm Bottle 1 APPLIC TOPICAL (17:26)
[2021-04-30] MEDS: Doxepin Hcl 25 MG Capsule 75 MG PO (22:22)
[2021-05-01] MEDS: Menthol/Lanolin/Calamine/Znox 113 GM Tube 1 APPLIC TOPICAL ×2 (06:43→17:15)
[2021-05-01 06:45] VITALS: BP 97/52; PULSE 71
[2021-05-01] MEDS: SACUBITRIL/VALSARTAN 24/26 MG TABLET 1 EACH PO ×2 (06:45→17:15)
[2021-05-01] MEDS: Nystatin Powder 15gm Bottle 1 APPLIC TOPICAL ×2 (06:45→17:15)
[2021-05-01] MEDS: Meloxicam 15 MG Tablet PO (06:45)
[2021-05-01] MEDS: Paroxetine 20 MG Tablet PO (06:45)
[2021-05-01] MEDS: Clopidogrel Bisulfate 75 MG Tablet PO (06:45)
[2021-05-01] MEDS: Acetaminophen 500 MG Tablet 1000 MG PO ×3 (06:47→22:00)
[2021-05-01 07:07] VITALS: BP 97/52; PULSE 71; RESP 12; TEMP 36.9
[2021-05-01] MEDS: Amiodarone 200 MG Tablet PO ×2 (08:02→17:15)
[2021-05-01] MEDS: Aspirin E.C. 81 MG Tablet PO (08:02)
--- NOTE | 2021-05-01 13:09 | CASEMGMT ---
Social Work Met with patient in room. Patient reports concerns of having housing at time of discharge. Patient reports that patient home is being sold. This social research assistant inquired if patient has other living arrangement options. Patient reports plan to contact patient brother, Donnell. Patient currently declines any assistance from this social research assistant but is agreeable to this social research assistant following up with patient about status of housing and to assist with a safe discharge plan. This social research assistant also addressed option of counseling services for patient. Patient is currently not open to counseling but is open to this social research assistant providing patient with information on local counseling agencies. Support provided throughout conversation. Patient does appear to be anxious about current situation. Proposed discharge date: 05/04/2021. Disposition: Home to community with outpatient therapy through [facility]. Patient provided with appointment reminder for [facility]. Will continue to follow. Margarita HAMILTON, JORDAN
--- NOTE | 2021-05-01 13:24 | NURSING ---
PT VERY ANXIOUS REGARDING DC HOME ON FRIDAY. [employer] TECHNICIAN SPOKE WITH HIM THIS AM AND PT ANXIOUS THEN WELL. DR OCONNELL UPDATED, NEW ORDER FOR XANAX 1MG X1 NOW.
[2021-05-01] MEDS: ALPRAZolam 0.5 MG Tablet 1 MG PO (13:36)
[2021-05-01 16:09] VITALS: BP 111/93; PULSE 77; RESP 18; TEMP 36.6; O2SAT 95
--- NOTE | 2021-05-01 19:33 | DS.PCM_ITS ---
Providers Date of Admission: 04/17/21 Primary Care Physician: No Primary Care Phys Reason For Visit: DEBILITY Diagnosis Discharge Diagnosis (1) Debility: Status: Acute Code(s): R53.81 - Other malaise (2) Alcohol intoxication: Status: Acute Code(s): F10.929 - Alcohol use, unspecified with intoxication, unspecified (3) Depression: Status: Acute Code(s): F32.9 - Major depressive disorder, single episode, unspecified (4) Anxiety: Status: Acute Code(s): F41.9 - Anxiety disorder, unspecified (5) Chronic systolic congestive heart failure: Status: Chronic Code(s): I50.22 - Chronic systolic (congestive) heart failure (6) Hyponatremia: Status: Acute Code(s): E87.1 - Hypo-osmolality and hyponatremia (7) Hyperkalemia: Status: Acute Code(s): E87.5 - Hyperkalemia (8) Coronary artery disease: Status: Acute Code(s): I25.10 - Atherosclerotic heart disease of [place] coronary artery without angina pectoris (9) Hypertension: Status: Chronic Code(s): I10 - Essential (primary) hypertension (10) Hyperlipidemia: Status: Acute Code(s): E78.5 - Hyperlipidemia, unspecified (11) Chronic obstructive pulmonary disease: Status: Chronic Code(s): J44.9 - Chronic obstructive pulmonary disease, unspecified (12) Ventricular tachycardia: Status: Acute Code(s): I47.2 - Ventricular tachycardia (13) Tobacco abuse: Status: Acute Code(s): Z72.0 - Tobacco use Medications at Discharge Home Medications amiodarone 200 mg tablet 200 mg PO BID #180 tab 06/15/20 clopidogrel 75 mg PO DAILY #30 tab 04/09/21 nitroglycerin 0.4 mg SUBLINGUAL Q5M PRN #25 tab 04/09/21 aspirin 81 mg PO DAILY 04/17/21 famotidine 20 mg PO BID 04/17/21 meloxicam 15 mg PO DAILY 04/17/21 doxepin 75 mg PO QHS 30 Days #90 cap 05/01/21 metoprolol succinate 12.5 mg PO DAILY 30 Days #15 tab 05/01/21 paroxetine HCl 20 mg PO DAILY 30 Days #30 tab 06/29/21 sacubitril-valsartan [Entresto] 1 tab PO BID 30 Days #60 tab 05/01/21 Hospital Course Operations None Procedures None Summary of Care Provided Minutes Spent on Discharge: 35 Hospital Course: 66 year old male with below past medical history hospitalized for alcohol intoxication, complicated by hyponatremia, hyperkalemia, admitted to TCU with debility, here for rehabilitation, strengthening, prior to discharge home with family. I told him 1 more drink, and he will . Discharge home alone 05/04/2021, [employer] PT/OT. Physical Exam Const alert and oriented x3 General Appearance: cooperative HEENT normocephalic Eyes PERRL and EOMs intact bilaterally Neck supple, no JVD and no carotid bruits Resp normal respiratory effort, normal air movement and clear to auscultation bilaterally Cardio regular rate and regular rhythm GI normal to inspection, nondistended, normoactive bowel sounds, non-tender and non-distended Extremity normal capillary refill General Extremity: Negative for edema Skin no rashes or lesions noted General Skin Exam: no breakdown Psych affect normal Appearance: appropriate Weight / BMI Weight Weight: 90.747 kg Body Mass Index (BMI) 25.2 ABG / Lab / Microbiology Data Result Diagrams: 04/25/21 05:20 04/25/21 05:20 Microbiology: Microbiology 05/01/21 14:00 SARS-CoV-2 Antigen (Rapid) - Final Nasal Secretion Microbiology 05/01/21 14:00 Nasal Secretion SARS-CoV-2 Antigen (Rapid) - Final 04/25/21 11:25 Interface Orders SARS-CoV-2 Antigen (Rapid) - Final 04/18/21 Unknown Nasal Secretion SARS-CoV-2 Antigen (Rapid) - Final D/C Instructions Discharge Diet: No restrictions Discharge Activity: Return to Normal Activity, May Shower and Use Walker Weight Bearing Status: Weight bearing as tolerated Call your doctor if you observe: Fever of 101 or Higher, Inability to urinate, Inability to have a bowel movement, Shortness of breath, Fainting spells, Chest pain, Increased palpitations (irregular heartbeat) and Uncontrolled pain Additional Instructions: Discharge home alone 05/04/2021, [employer] PT/OT. Please Follow Up With: Tam Silver Chi, MD When: 1 week. Meaningful Use Info Meaningful Use Diagnoses (Choose all that apply): None applicable Discharge Plan Admission Admit Date/Time: 04/17/21 12:25 Primary Reason for Your Visit: Debility Attending Provider: Tam Silver Chi Primary Care Provider: Care Physician,No Primary Instructions Additional Instructions / Restrictions: Discharge home alone 05/04/2021, [employer] PT/OT. Discharge Orders/Prescriptions Prescriptions: New doxepin 25 mg Capsule 75 mg PO QHS 30 Days Qty: 90 RF: 0 paroxetine HCl 20 mg Tablet 20 mg PO DAILY 30 Days Qty: 30 RF: 0 Entresto 49-51 mg Tablet 1 tab PO BID 30 Days Qty: 60 RF: 0 Continued clopidogrel 75 mg tablet 75 mg PO DAILY Qty: 30 RF: 0 nitroglycerin 0.4 mg tablet, sublingual 0.4 mg SUBLINGUAL Q5M PRN (Reason: Angina) Qty: 25 RF: 0 meloxicam 15 mg tablet 15 mg PO DAILY RF: 0 aspirin 81 mg tablet,delayed release (DR/EC) 81 mg PO DAILY RF: 0 famotidine 20 mg tablet 20 mg PO BID RF: 0 metoprolol succinate 25 mg tablet extended release 24 hr 12.5 mg PO DAILY 30 Days Qty: 15 RF: 0 amiodarone 200 mg tablet 200 mg PO BID Qty: 180 RF: 3 Discontinued acetaminophen 500 MG tablet 1,000 mg PO Q8H PRN PRN (Reason: Pain 1-10 Or Fever) Qty: 120 RF: 0 acidophilus-pectin, citrus 25 million cell -100 mg tablet 2 tab PO BID Qty: 120 RF: 0 calcium carbonate-vitamin D3 1 TABLET tablet 1 tab PO DAILY Qty: 30 RF: 0 magnesium chloride [Mag 64] 64 mg tablet,delayed release (DR/EC) 128 mg PO BID Qty: 120 RF: 0 sennosides-docusate sodium [Stool Softener-Stimulant Laxat] 8.6-50 mg Tablet 2 tab PO BID PRN PRN (Reason: Constipation) Qty: 0 RF: 0 melatonin 3 mg Tablet 3 mg PO QHS PRN PRN (Reason: Insomnia) Qty: 0 RF: 0 thiamine HCl (vitamin B1) [Vitamin B-1] 100 mg tablet 100 mg PO BIDCM RF: 0 folic acid 1 mg tablet 1 mg PO BREAKFAST RF: 0 Calmoseptine 0.44-20.6 % ointment 1 applic topical BID RF: 0 Ensure Enlive 0.08 gram-1.5 kcal/mL liquid 120 ml PO 4X/DAY RF: 0 Multivitamins,Ther W-Minerals [Multivitamin With Minerals (BKC)] 1 tab PO BREAKFAST RF: 0 Referrals / Follow Up: Tam Silver Chi, MD [COURTESY STAFF PHYSICIAN] - In 1 Week Disposition Disposition (needs filled in before D/C Order can be placed): Home, Self Care
[2021-05-01] MEDS: Doxepin Hcl 25 MG Capsule 75 MG PO (22:00)
[2021-05-01 22:40] VITALS: PULSE 72; RESP 14; O2SAT 98
[2021-05-02 05:52] LABS: Hematocrit 35.7 % (40-54); Hemoglobin 11.9 g/dL (13.0-16.5); Mean Corp Hgb Conc 33.3 g/dL (32-36); Mean Corpuscular Hgb 35.6 pg (27.0-32.0); Mean Corpuscular Volume 106.9 fL (80-94); Mean Platelet Vol. 9.4 fl (6.2-12.0); POSITIVE DIFFERENTIAL YES; Platelet Count 313 K/mm3 (150-450); RBC Distribution Width SD 59.1 fl (35.1-43.9); Red Blood Count 3.34 M/mm3 (4.6-6.2); White Blood Count 9.1 K/mm3 (4.4-11.0)
[2021-05-02 05:57] LABS: Differential Indicated MANUAL DIFF
[2021-05-02 06:18] LABS: Absolute Neutrophil Count 6.3 X10^3/uL (2.0-7.7); Eosinophil 3 % (0-5); Lymphocyte 21 % (19-41); Monocyte 6 % (0-10); Neutrophil-Segmented 70 % (47-70); Platelet Estimate ADEQUATE (ADEQ); Red Cell Morphology NORM C+C NORMAL (NORM C&C); Total Cells Counted 100 (MANUAL DIFF)
[2021-05-02 06:22] LABS: Anion Gap 4 (5-15); BUN 17 mg/dL (7-18); BUN/Creat Ratio 20.1 RATIO (10-20); Calcium,Total 8.7 mg/dL (8.5-10.1); Chloride 106 mmol/L (98-107); Creatinine, Serum 0.85 mg/dL (0.70-1.30); EST Glomerular Filtration Rate 97 mL/min (>60); Est Glom Filt Rate - Afr Amer 117 mL/min (>60); Estimated Creatinine Clearance 97.92 ml/min; Glucose 96 mg/dL (74-106); Potassium 4.5 mmol/L (3.5-5.1); Sodium Level 138 mmol/L (136-145)
[2021-05-02] MEDS: Acetaminophen 500 MG Tablet 1000 MG PO ×3 (06:30→21:31)
[2021-05-02 06:31] VITALS: BP 126/57; PULSE 74
[2021-05-02] MEDS: Metoprolol(XL)Succ 25 MG Tablet 12.5 MG PO (06:31)
[2021-05-02] MEDS: Clopidogrel Bisulfate 75 MG Tablet PO (06:31)
[2021-05-02] MEDS: Meloxicam 15 MG Tablet PO (06:31)
[2021-05-02] MEDS: Paroxetine 20 MG Tablet PO (06:32)
[2021-05-02] MEDS: SACUBITRIL/VALSARTAN 24/26 MG TABLET 1 EACH PO ×2 (06:32→17:56)
[2021-05-02] MEDS: Nystatin Powder 15gm Bottle 1 APPLIC TOPICAL ×2 (06:34→17:56)
[2021-05-02] MEDS: Menthol/Lanolin/Calamine/Znox 113 GM Tube 1 APPLIC TOPICAL ×2 (06:34→17:56)
[2021-05-02 06:35] VITALS: BP 126/57; PULSE 74; RESP 16; TEMP 37; O2SAT 97
[2021-05-02] MEDS: Amiodarone 200 MG Tablet PO ×2 (08:44→17:56)
[2021-05-02] MEDS: Aspirin E.C. 81 MG Tablet PO (08:44)
--- NOTE | 2021-05-02 15:19 | CASEMGMT ---
Social Work Met with patient in room. Patient reports to now be able to return to patient own home on Friday, day of discharge. Patient with no concerns or questions on discharge to home. Patient active with Palliative Care, discharge information faxed to Palliative Care to update on patient discharge date/plan. Margarita HAMILTON, BEENAS
[2021-05-02 15:50] VITALS: BP 124/58; PULSE 76; RESP 16; TEMP 36.4; O2SAT 95
[2021-05-02 15:53] VITALS: PULSE 76; RESP 16; O2SAT 95
[2021-05-02] MEDS: Doxepin Hcl 25 MG Capsule 75 MG PO (21:31)
[2021-05-03 03:09] VITALS: BP 114/67; PULSE 71; RESP 16; TEMP 36.4; O2SAT 96
[2021-05-03] MEDS: Menthol/Lanolin/Calamine/Znox 113 GM Tube 1 APPLIC TOPICAL ×2 (05:20→17:09)
[2021-05-03] MEDS: Acetaminophen 500 MG Tablet 1000 MG PO ×3 (05:21→21:08)
[2021-05-03 05:22] VITALS: PULSE 71
[2021-05-03] MEDS: Metoprolol(XL)Succ 25 MG Tablet 12.5 MG PO (05:22)
[2021-05-03] MEDS: Meloxicam 15 MG Tablet PO (05:22)
[2021-05-03] MEDS: Clopidogrel Bisulfate 75 MG Tablet PO (05:22)
[2021-05-03] MEDS: Paroxetine 20 MG Tablet PO (05:22)
[2021-05-03] MEDS: SACUBITRIL/VALSARTAN 49-51 MG TABLET 1 EACH PO ×2 (06:41→17:09)
[2021-05-03] MEDS: Nystatin Powder 15gm Bottle 1 APPLIC TOPICAL ×2 (06:42→17:09)
[2021-05-03] MEDS: Aspirin E.C. 81 MG Tablet PO (08:54)
[2021-05-03] MEDS: Amiodarone 200 MG Tablet PO ×2 (08:54→17:09)
[2021-05-03 14:30] VITALS: BP 117/78; PULSE 76; RESP 18; TEMP 36.4; O2SAT 93
[2021-05-03] MEDS: Doxepin Hcl 25 MG Capsule 75 MG PO (21:08)
[2021-05-04 05:00] VITALS: BP 119/73; PULSE 75; RESP 16; TEMP 36.8; O2SAT 95
[2021-05-04 07:00] VITALS: PULSE 75
[2021-05-04] MEDS: Acetaminophen 500 MG Tablet 1000 MG PO (07:00)
[2021-05-04] MEDS: Metoprolol(XL)Succ 25 MG Tablet 12.5 MG PO (07:00)
[2021-05-04] MEDS: Paroxetine 20 MG Tablet PO (07:00)
[2021-05-04] MEDS: SACUBITRIL/VALSARTAN 49-51 MG TABLET 1 EACH PO (07:00)
[2021-05-04] MEDS: Clopidogrel Bisulfate 75 MG Tablet PO (07:00)
[2021-05-04] MEDS: Meloxicam 15 MG Tablet PO (07:01)
[2021-05-04] MEDS: Aspirin E.C. 81 MG Tablet PO (09:04)
[2021-05-04] MEDS: Amiodarone 200 MG Tablet PO (09:04)
[2021-05-04 09:05] VITALS: PULSE 81; RESP 16; O2SAT 97
--- NOTE | 2021-05-04 11:44 | NURSING ---
pt aware of 2nd covid vaccine due on 05/17 here at [facility].,
== END 2021-05-04 14:00 | disposition home or self-care (01) | DRG 897 ==
PROVIDERS: Admitting Provider Family Medicine Geriatric Medicine; Visit Provider Family Medicine Geriatric Medicine
DX: F10.20 Alcohol dependence, uncomplicated (principal); I50.22 Chronic systolic (congestive) heart failure; I47.2 Ventricular tachycardia; I25.10 Atherosclerotic heart disease of native coronary artery without angina pectoris; F32.9 Major depressive disorder, single episode, unspecified; F41.9 Anxiety disorder, unspecified; I11.0 Hypertensive heart disease with heart failure; E78.5 Hyperlipidemia, unspecified; J44.9 Chronic obstructive pulmonary disease, unspecified; I25.5 Ischemic cardiomyopathy; F17.210 Nicotine dependence, cigarettes, uncomplicated; I25.2 Old myocardial infarction; Z79.899 Other long term (current) drug therapy; Z79.02 Long term (current) use of antithrombotics/antiplatelets; Z79.82 Long term (current) use of aspirin
CPT/HCPCS: 36415; 80048; 85025; 87426; 97110; 97116; 97150; 97162; 97166; 97530; 97535; 97802; 99406; A4216

== ENCOUNTER 2021-04-26 14:20 | Outpatient (RCR) | payer MEDICARE, MEDICAID, SELFPAY ==
[2019-02-17 13:19] VITALS: BMI 29.2
== END 2021-05-31 23:59 ==
LOC: IMMUN 14:20
PROVIDERS: PCP Family Medicine Geriatric Medicine; Visit Provider Family Medicine
DX: Z23 Encounter for immunization (principal)

== ENCOUNTER 2022-05-25 18:48 | Inpatient (IN) | payer MEDICARE, MEDICAID, SELFPAY ==
[2019-02-17 13:19] VITALS: BMI 29.2
[2022-05-25] VITALS (9 sets, daily range): BP systolic 101–162; BP diastolic 64–85; PULSE 68–95; RESP 13–25; TEMP 36.8–36.9; O2SAT 89–94; BMI 23.6
--- NOTE | 2022-05-25 19:04 | EKG12_ITS ---
Test Reason : dizzy Blood Pressure : / mmHG Vent. Rate : 083 BPM Atrial Rate : 083 BPM P-R Int : 186 ms QRS Dur : 120 ms QT Int : 398 ms P-R-T Axes : 072 067 258 degrees QTc Int : 467 ms Normal sinus rhythm Possible Left atrial enlargement Possible Inferior infarct , age undetermined ST & T wave abnormality, consider lateral ischemia Abnormal ECG Confirmed by GISSELLE JEFFERSON, VALERIE ([id number]), pictures editor SUSAN BLACKMAN ([id number]) on 05/28/2022 9:06:03 AM Referred By: Confirmed By:VALERIE PITTS MD
--- NOTE | 2022-05-25 19:06 | EDS_ITS ---
HPI History of Present Illness Chief Complaint: Dizziness Informant: patient Narrative Narrative: 67-year-old male history of COPD, alcoholism, coronary artery disease and congestive heart failure presents to the emergency department with 1 week of lightheadedness with standing. Nothing has changed in his symptomology other than he is tired of experiencing it. He did not contact anybody last week while this was going on because he did not get a phone until a couple days ago. He states he has been drinking a lot of water with the occasional milk and his brother brings him food sometimes once a night. He reports that he just left a crisis center where he is resided for about a year. He does not wear oxygen at home. He describes his lightheadedness as the room spinning but only when he stands. If he lays down or sits he does not experience it. He states his urine has been very dark. He is still having bowel movements. No vomiting or fevers. He denies any significant cough. [facility] Medical History Abnormal LFTs Acute blood loss anemia Alcohol intoxication Alcoholic Anxiety Atherosclerotic heart disease of [place] coronary artery without angina pectoris Benzodiazepine abuse in remission C. difficile colitis Cellulitis and abscess of upper extremity Cerebellar atrophy Chronic obstructive pulmonary disease Debility Declining functional status Dehydration Depression Essential hypertension Femoral neck fracture Frequent falls History of alcoholism Hyperkalemia Hyperlipidemia Hypomagnesemia Hyponatremia Incontinence of feces Incontinence of urine Ischemic cardiomyopathy Macrocytosis Physical debility Premature heartbeats Pulmonary nodule Pulmonary nodule Stage 1 mild COPD by GOLD classification Suicidal thoughts Syndrome of inappropriate ADH (SIADH) secretion Tobacco abuse Tobacco user Unintentional weight loss Urinary tract infection Ventricular tachycardia Ventricular tachycardia Home Medications aspirin 81 mg tablet,delayed release 81 mg PO DAILY Heart Health 04/17/21 [History Last Taken Unknown] amiodarone 200 mg tablet 200 mg PO BID HEART RHYTHM 05/25/22 [History Last Taken Unknown] clopidogrel 75 mg tablet 75 mg PO DAILY 05/25/22 [History Last Taken Unknown] metoprolol succinate 25 mg tablet,extended release 24 hr 12.5 mg PO DAILY BP 05/25/22 [History Last Taken Unknown] paroxetine HCl 20 mg tablet 30 mg PO DAILY 05/25/22 [History Last Taken Unknown] Allergy/AdvReac Type Severity Reaction Status Date / Time Iodine and Iodide Containing Allergy Severe Rash Verified 05/25/22 18:54 Produc ezetimibe [From Zetia] AdvReac Severe Myalgias Verified 05/25/22 18:54 Zrgzujr-LXT-FzG Reductase AdvReac Severe Elevated Verified 05/25/22 18:54 Inhibitor Liver [Lydjmvd-Pug-Cfk Reductase Enzymes Inhibitor] duloxetine [From Cymbalta] AdvReac Orthostasis Verified 05/25/22 18:54 /hyponatrem ia Family History Grandmother Myocardial infarction Grandfather Myocardial infarction Surgical History History of coronary artery stent placement (02/17/19) History of implantable cardiac defibrillator (ICD) (10/31/17) History of left heart catheterization (LHC) (01/21/19) Hx of knee surgery Hx of total hip arthroplasty Social History household members: family and other details: currently living with his father and his brother Donnell. housing: house number of children: 1 current occupational status: unemployed Smoking Status: Current every day smoker tobacco type: cigarettes how long ago did patient quit smokin11/2017 alcohol intake: current alcohol intake frequency: 3 or more drinks per day Alcohol type: wine substance use type: other details: Has abused RX Ativan in the past well-balanced diet: other details: says that he gets meals on wheels and they pile upin the refrigerator caffeine: No during the past year weight has: other details: decreased 20 lbs since November what type of physical activity do you participate in: none duration: < 15 minutes/day seatbelt use: always do you feel safe at home: Yes ROS ROS ED Constitutional Constitutional ED: Denies chills, fever(s) or weight loss Eyes Eyes: Denies change in vision or diplopia ENT ENT ED: Denies ear pain, rhinorrhea or sore throat Cardiovascular Cardiovascular: Denies chest pain, orthopnea, palpitations or racing heartbeat Respiratory/Chest Respiratory/Chest: Denies cough, dyspnea or orthopnea Gastrointestinal Gastrointestinal: Denies abdominal pain, diarrhea, nausea or vomiting Genitourinary Genitourinary ED: Denies dysuria, hematuria or urinary frequency Musculoskeletal Musculoskeletal: Denies arthralgias or myalgias Integumentary Denies abscess or rash Neurologic Neurologic: Reports other Details: Lightheadedness ; Denies headache(s) or weakness Psychiatric Psychiatric: Denies anxiety, depression, suicidal ideation or suicidal thoughts Endocrine Endocrinology: Denies polydipsia, polyphagia or polyuria Allergic/Immunologic Allergic/Immunologic ED: Denies mouth swelling, tongue swelling or urticaria EXAM Physical Exam Const Vital Signs: 05/25/22 18:49 05/25/22 19:30 05/25/22 20:44 Temperature 98.5 F Temperature Source Temporal Pulse Rate 87 Pulse Rate [Lying] 68 Pulse Rate [Sitting (for 1 minute prior to obtaining)] 75 Pulse Rate [Standing (for 1 minute prior to obtaining)] 89 Respiratory Rate 21 H Respiratory Effort Normal Non-Labored Respiratory Pattern Normal Blood Pressure 135/85 H Blood Pressure [Lying] 162/81 H Blood Pressure [Sitting (for 1 minute prior to obtaining)] 144/84 H Blood Pressure [Standing (for 1 minute prior to obtaining)] 108/70 Blood Pressure Mean 101 Blood Pressure Mean [Lying] 108 Blood Pressure Mean [Sitting (for 1 minute prior to obtaining)] 104 Blood Pressure Mean [Standing (for 1 minute prior to obtaining)] 82 Pulse Ox 89 Oxygen Delivery Method Room Air Oxygen Flow Rate (L/min) 05/25/22 20:45 Temperature Temperature Source Pulse Rate 79 Pulse Rate [Lying] Pulse Rate [Sitting (for 1 minute prior to obtaining)] Pulse Rate [Standing (for 1 minute prior to obtaining)] Respiratory Rate 25 H Respiratory Effort Respiratory Pattern Blood Pressure 133/75 H Blood Pressure [Lying] Blood Pressure [Sitting (for 1 minute prior to obtaining)] Blood Pressure [Standing (for 1 minute prior to obtaining)] Blood Pressure Mean 94 Blood Pressure Mean [Lying] Blood Pressure Mean [Sitting (for 1 minute prior to obtaining)] Blood Pressure Mean [Standing (for 1 minute prior to obtaining)] Pulse Ox 90 Oxygen Delivery Method Nasal Cannula Oxygen Flow Rate (L/min) 4 Positive well nourished and well developed General Appearance ED: well developed HEENT Reports normocephalic, head/scalp atraumatic and dry mucous membranes HEENT Narrative: No nystagmus. Mouth ED: Yes dry mucous membranes Mouth: dry mucous membranes Eyes PERRL and EOMs intact bilaterally Neck no lymphadenopathy, supple and no JVD Resp normal respiratory effort and clear to auscultation bilaterally Cardio regular rate, regular rhythm and no murmurs GI normal to inspection, nondistended, normoactive bowel sounds and non-tender Palpation: soft Back/Spine no CVA tenderness and normal ROM Extremity normal to inspection General Extremety ED: Negative for edema General Extremity: Negative for edema Neuro oriented x3, CN's II-XII intact bilaterally and no sensory deficits noted Neuro Narrative: Negative Kevin-Hallpike Sensorium / Orientation: alert Motor Exam: strength 5/5 throughout Psych mental status grossly normal Mood & Affect: Negative for depressed or tearful Skin no rashes or lesions noted and no wounds MDM MDM MDM Narrative Medical decision making narrative: IV was established patient received IV fluids. He is orthostatic positive. White count elevated 14.1 hemoglobin 16.9. Lactic acid is normal at 1.9. Slight elevation in AST and ALT. Troponin is 18. Alcohol is negative. The COVID is negative. My interpretation of the chest x-ray is multifocal infiltrates bilaterally. CT the brain negative noncontrasted chest CT is consistent wit infiltrates throughout both lung jacob. Blood cultures were obtained and the patient received Rocephin and azithromycin. He is hypoxic at 88% at rest. He is currently on 4 L nasal cannula satting at 90%. Plan will be admission into hospital. Lab Data Attestation: I reviewed the patient's lab results. Labs: Laboratory Results - last 24 hr 05/25/22 05/25/22 05/25/22 19:15 19:15 19:15 WBC 14.1 H RBC 5.09 Hgb 16.9 H Hct 50.1 MCV 98.4 H MCH 33.2 H MCHC 33.7 RDW Std Deviation 50.1 H RDW Coeff of [place] 13.8 Plt Count 332 MPV 10.9 Immature Gran % (Auto) 0.600 Neut % (Auto) 72.9 H Lymph % (Auto) 9.6 L [place] % (Auto) 7.3 Eos % (Auto) 9.3 H Baso % (Auto) 0.3 Absolute Neuts (auto) 10.3 H Absolute Lymphs (auto) 1.36 Nucleated RBC % 0 PT 15.8 H INR 1.3 APTT 29.0 Sodium 139 Potassium 3.6 Chloride 107 Carbon Dioxide 25.0 Anion Gap 7 BUN 29 H Creatinine 0.99 Estim Creat Clear Calc 85.34 Est GFR (MDRD) Af Amer 97 Est GFR (MDRD) Non-Af 81 BUN/Creatinine Ratio 29.4 H Glucose 129 H Lactic Acid Calcium 8.7 Total Bilirubin 0.60 AST 180 H ALT 217 H Alkaline Phosphatase 117 Troponin I High Sens 18 B-Natriuretic Peptide Total Protein 6.7 Albumin 2.5 L Globulin 4.2 Albumin/Globulin Ratio 0.6 L Lipase 27 L Ethyl Alcohol 05/25/22 05/25/22 05/25/22 19:15 19:15 19:15 WBC RBC Hgb Hct MCV MCH MCHC RDW Std Deviation RDW Coeff of [place] Plt Count MPV Immature Gran % (Auto) Neut % (Auto) Lymph % (Auto) [place] % (Auto) Eos % (Auto) Baso % (Auto) Absolute Neuts (auto) Absolute Lymphs (auto) Nucleated RBC % PT INR APTT Sodium Potassium Chloride Carbon Dioxide Anion Gap BUN Creatinine Estim Creat Clear Calc Est GFR (MDRD) Af Amer Est GFR (MDRD) Non-Af BUN/Creatinine Ratio Glucose Lactic Acid 1.9 Calcium Total Bilirubin AST ALT Alkaline Phosphatase Troponin I High Sens B-Natriuretic Peptide 53.0 Total Protein Albumin Globulin Albumin/Globulin Ratio Lipase Ethyl Alcohol < 3.0 Radiography Diagnostic Testing: Clinical Impression(s) from Imaging Studies Chest X-Ray 05/25/22 19:32 IMPRESSION: There is bilateral infiltrate. Electronically Signed: Neo Martin MD at 19:55 EDT , Brain CT 05/25/22 20:20 IMPRESSION: There are no acute intracranial findings. Electronically Signed: Neo Martin MD at 20:38 EDT , Chest CT 05/25/22 20:20 IMPRESSION: Diffuse irregular infiltrates throughout both lung jacob. This is worse in the right lower lobe. Consider atypical pneumonia. Electronically Signed: Neo Martin MD at 20:40 EDT , EKG Initial EKG: Attestation: I personally reviewed and interpreted this EKG as follows: Comments: Normal sinus rhythm with a ventricular rate of 83 bpm. Discharge Plan Dx/Rx/DC Orders Clinical Impression: Stage 1 mild COPD by GOLD classification, Dizziness, Bilateral pneumonia, Acute hypoxemic respiratory failure, Orthostatic hypotension Disposition Disposition: Acute Care Hospital [facility]
[2022-05-25] MEDS: 0.9% Normal Saline 1,000 ML 1000 ML IV (19:21)
--- NOTE | 2022-05-25 19:32 | RAD_ITS ---
STUDY: X-RAY CHEST REASON FOR EXAM: Male, 67 years old. SOB / SOA hypoxia TECHNIQUE: XR Chest 1 View COMPARISON: 04/15/2021 FINDINGS: There is no demonstrated pleural abnormality. There is a left sided pacemaker batterypack. There is bilateral infiltrate / atelectasis. Normal size heart. Normal mediastinum and mady. Normal visualized pulmonary arteries. There is atherosclerotic calcification of the aortic arch with tortuosity. There are diffuse degenerative changes of the visualized thoracic spine. There is degenerative osteoarthritis of the bilateral shoulders. There is no demonstrated abnormality of the visualized soft tissue structures of the upper abdomen. RAD/Chest 1 View (Portable) IMPRESSION: There is bilateral infiltrate. Electronically Signed: Neo Martin MD at 19:55 EDT ,
[2022-05-25 19:43] LABS: Absolute Lymphocyte Count 1.36 X10^3/uL (0.83-4.51); Absolute Neutrophil Count 10.3 X10^3/uL (2.0-7.7); Basophil# 0.04 X10^3/uL; Basophil% 0.3 % (0-1); Eosinophil# 1.31 X10^3/uL; Eosinophils% 9.3 % (0-5); Hematocrit 50.1 % (40-54); Hemoglobin 16.9 g/dL (13.0-16.5); Lymphocyte # 1.36 X10^3/ul (0.83-4.51); Lymphocyte % 9.6 % (19-41); Mean Corp Hgb Conc 33.7 g/dL (32-36); Mean Corpuscular Hgb 33.2 pg (27.0-32.0); Mean Corpuscular Volume 98.4 fL (80-94); Mean Platelet Vol. 10.9 fl (6.2-12.0); Monocyte# 1.03 X10^3/uL; Monocyte% 7.3 % (0-10); NRBC Flagged by Analyzer 0 % (0-5); Neutrophil # 10.29 X10^3/uL (2.7-7.7); Neutrophil % 72.9 % (47-70); Platelet Count 332 K/mm3 (150-450); RBC Distribution Width CV 13.8 % (11.6-14.6); RBC Distribution Width SD 50.1 fl (35.1-43.9); Red Blood Count 5.09 M/mm3 (4.6-6.2); White Blood Count 14.1 K/mm3 (4.4-11.0)
[2022-05-25 19:56] LABS: International Normalized Ratio 1.3; Prothrombin Time (Protime)PT. 15.8 SECONDS (11.7-14.9)
[2022-05-25 20:05] LABS: ALB/GLOB Ratio 0.6 RATIO (0.9-2.4); AST(SGOT) 180 U/L (15-37); Alanine Aminotransfer ALT/SGPT 217 U/L (16-61); Albumin, Serum 2.5 g/dL (3.2-5.0); Alkaline Phosphatase 117 U/L (45-117); Anion Gap 7 (5-15); BUN 29 mg/dL (7-18); BUN/Creat Ratio 29.4 RATIO (10-20); Calcium,Total 8.7 mg/dL (8.5-10.1); Chloride 107 mmol/L (98-107); Creatinine, Serum 0.99 mg/dL (0.70-1.30); EST Glomerular Filtration Rate 81 mL/min (>60); Est Glom Filt Rate - Afr Amer 97 mL/min (>60); Estimated Creatinine Clearance 85.34 ml/min; Globulin 4.2 g/dL (2.2-4.2); Glucose 129 mg/dL (74-106); Lipase 27 U/L (73-393); Potassium 3.6 mmol/L (3.5-5.1); Protein, Total 6.7 g/dL (6.4-8.2); Sodium Level 139 mmol/L (136-145); Troponin-I HS 18 pg/mL (3.0-78.0)
[2022-05-25 20:14] LABS: Lactic Acid 1.9 mmol/L (0.4-1.9)
--- NOTE | 2022-05-25 20:20 | CT_ITS ---
STUDY: CT BRAIN WITHOUT CONTRAST REASON FOR EXAM: Male, 67 years old. DIZZINESS ataxia TECHNIQUE: Transaxial CT imaging of the brain was performed without administration of intravenous contrast material. Individualized dose optimization techniques were used for this CT. COMPARISON: 04/15/2021 FINDINGS: Normal calvarium. Normal soft tissues. Normal size ventricles and extra-axial spaces for the patient''s age. Normal white matter tracts of the cerebral hemispheres. Normal basal ganglia and thalami. Normal brainstem. Normal cerebellum. There is no intracranial hemorrhage. There are no findings of an acute ischemic infarction. There are calcifications around the carotid artery. These are noted in the cavernous carotid arteries. Normal visualized paranasal sinuses. ASPECTS 10 CT/Brain/Head without Contrast IMPRESSION: There are no acute intracranial findings. Electronically Signed: Neo Martin MD at 20:38 EDT ,
--- NOTE | 2022-05-25 20:20 | CT_ITS ---
STUDY: CT Chest W/O Contrast Injection 05/25/2022 8:38 PM REASON FOR EXAM: Male, 67 years old. abnormal chest xray PNEUMONIA Individualized dose optimization techniques were used for this CT. TECHNIQUE: Transaxial imaging was performed withoutIV contrast material. COMPARISON : 05/27/2019 FINDINGS: There are degenerative changes of the shoulders. There is no pneumothorax. Diffuse irregular infiltrates throughout both lung jacob. This is worse in the right lower lobe. There is a left sided pacemaker battery pack. There are calcifications of the coronary arteries. There are multiple small lymph nodes within the mediastinum, which are normal in size and morphology most compatible with reactive lymph hyperplasia. Normal hilar regions. Normal pulmonary arteries. There is atherosclerotic calcification of the aortic arch with tortuosity and elongation of the aortic arch and descending thoracic aorta. There are multi-level degenerative changes of the thoracic spine. There are no acute findings of the upper abdomen. CT/Chest without Contrast IMPRESSION: Diffuse irregular infiltrates throughout both lung jacob. This is worse in the right lower lobe. Consider atypical pneumonia. Electronically Signed: Neo Martin MD at 20:40 EDT ,
[2022-05-25 20:24] LABS: Alcohol, Blood (Medical)-Serum < 3.0 mg/dL
[2022-05-25] MEDS: Ceftriaxone 1 GM/50 ML BAG IV (20:44)
[2022-05-25] MEDS: Acetaminophen 500 MG Tablet 1000 MG PO (21:16)
[2022-05-25 21:22] LABS: Bacteria 0 SEEN /hpf (None Seen); Squamous Epithelial Cells - UA 0 SEEN /hpf (0-5)
[2022-05-25] MEDS: Ipratropium/Albuterol Sulfate 3 ML AMPUL.NEB INHALATION (21:31)
--- NOTE | 2022-05-25 21:35 | HP.PCM.HOS_ITS ---
HPI - General General Date of Admission: 05/25/22 Date of Service: 05/25/22 Chief Complaint: Vertigo HPI Narrative FRANCIS MORTON, is a 67 M with a significant history of alcoholism now sober; tobacco abuse; ICD who presents to the emergency department with 1 week history of persistent Vertigo. Also patient felt like he was going to pass out. He reports shortness of breath. Reportedly his knees could not hold him up and he could not walk. He reports chills. He denies fever. 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 difficile colitis Cellulitis and abscess of upper extremity Cerebellar atrophy Chronic obstructive pulmonary disease Debility Declining functional status Dehydration Depression Essential hypertension Femoral neck fracture Frequent falls History of alcoholism Hyperkalemia Hyperlipidemia Hypomagnesemia Hyponatremia Incontinence of feces Incontinence of urine Ischemic cardiomyopathy Macrocytosis Physical debility Premature heartbeats Pulmonary nodule Pulmonary nodule Stage 1 mild COPD by GOLD classification Suicidal thoughts Syndrome of inappropriate ADH (SIADH) secretion Tobacco abuse Tobacco user Unintentional weight loss Urinary tract infection Ventricular tachycardia Ventricular tachycardia Home Medications aspirin 81 mg tablet,delayed release 81 mg PO DAILY Heart Health 04/17/21 [History Last Taken Unknown] amiodarone 200 mg tablet 200 mg PO BID HEART RHYTHM 05/25/22 [History Last Taken Unknown] clopidogrel 75 mg tablet 75 mg PO DAILY 05/25/22 [History Last Taken Unknown] metoprolol succinate 25 mg tablet,extended release 24 hr 12.5 mg PO DAILY BP 05/25/22 [History Last Taken Unknown] paroxetine HCl 20 mg tablet 30 mg PO DAILY 05/25/22 [History Last Taken Unknown] Allergy/AdvReac Type Severity Reaction Status Date / Time Iodine and Iodide Containing Allergy Severe Rash Verified 05/25/22 18:54 Produc ezetimibe [From Zetia] AdvReac Severe Myalgias Verified 05/25/22 18:54 Xoeazmm-LBH-VtN Reductase AdvReac Severe Elevated Verified 05/25/22 18:54 Inhibitor Liver [Ovxbqss-Tmd-Zej Reductase Enzymes Inhibitor] duloxetine [From Cymbalta] AdvReac Orthostasis Verified 05/25/22 18:54 /hyponatrem ia Family History Grandmother Myocardial infarction Grandfather Myocardial infarction Surgical History History of coronary artery stent placement (02/17/19) History of implantable cardiac defibrillator (ICD) (10/31/17) History of left heart catheterization (LHC) (01/21/19) Hx of knee surgery Hx of total hip arthroplasty Social History household members: family and other details: currently living with his father and his brother Donnell. housing: house number of children: 1 current occupational status: unemployed Smoking Status: Current every day smoker tobacco type: cigarettes how long ago did patient quit smokin11/2017 alcohol intake: current alcohol intake frequency: 3 or more drinks per day Alcohol type: wine substance use type: other details: Has abused RX Ativan in the past well-balanced diet: other details: says that he gets meals on wheels and they pile upin the refrigerator caffeine: No during the past year weight has: other details: decreased 20 lbs since November what type of physical activity do you participate in: none duration: < 15 minutes/day seatbelt use: always do you feel safe at home: Yes ROS ROS Narrative Pertinent positives and pertinent negatives as noted in HPI. All other systems were reviewed and are negative. Vital Signs Vital Signs Vital Signs: 05/25/22 18:49 05/25/22 19:30 05/25/22 20:44 Temperature 98.5 F Temperature Source Temporal Pulse Rate 87 Pulse Rate [Lying] 68 Pulse Rate [Sitting (for 1 minute prior to obtaining)] 75 Pulse Rate [Standing (for 1 minute prior to obtaining)] 89 Respiratory Rate 21 H Respiratory Effort Normal Non-Labored Respiratory Pattern Normal Blood Pressure 135/85 H Blood Pressure [Lying] 162/81 H Blood Pressure [Sitting (for 1 minute prior to obtaining)] 144/84 H Blood Pressure [Standing (for 1 minute prior to obtaining)] 108/70 Blood Pressure Mean 101 Blood Pressure Mean [Lying] 108 Blood Pressure Mean [Sitting (for 1 minute prior to obtaining)] 104 Blood Pressure Mean [Standing (for 1 minute prior to obtaining)] 82 Pulse Ox 89 Oxygen Delivery Method Room Air Oxygen Flow Rate (L/min) 05/25/22 20:45 05/25/22 21:33 Temperature Temperature Source Pulse Rate 79 74 Pulse Rate [Lying] Pulse Rate [Sitting (for 1 minute prior to obtaining)] Pulse Rate [Standing (for 1 minute prior to obtaining)] Respiratory Rate 25 H 20 H Respiratory Effort Respiratory Pattern Normal Blood Pressure 133/75 H Blood Pressure [Lying] Blood Pressure [Sitting (for 1 minute prior to obtaining)] Blood Pressure [Standing (for 1 minute prior to obtaining)] Blood Pressure Mean 94 Blood Pressure Mean [Lying] Blood Pressure Mean [Sitting (for 1 minute prior to obtaining)] Blood Pressure Mean [Standing (for 1 minute prior to obtaining)] Pulse Ox 90 Oxygen Delivery Method Nasal Cannula Oxygen Flow Rate (L/min) 4 Weight Weight: 83.4 kg Body Mass Index (BMI) 23.6 Physical Exam Narrative Physical exam: General: Well-nourished, well-developed. Head: Normocephalic, atraumatic, no tenderness Eyes: Vision is grossly intact. EOMI ENT, no trauma, moist mucous membranes, no rhinorrhea Neck: Nontender, full range of motion. CVS: Regular rate and rhythm. S1-S2 present. Respiratory : Rales, chest wall nontender, no wheezing Abdomen: Soft, nontender, nondistended, normal bowel sounds, no masses : Deferred Back: Nontender, no CVA tenderness. Extremities: Nontender full range of motion, no trauma Skin: Normal color, no trauma, abrasions Neuro: Alert, oriented, cranial nerves II through XII grossly intact. Psychiatry: Normal mood. Normal affect. Not depressed. Not anxious. Results Lab / Micro Data Result Diagrams: 05/26/22 05:20 05/26/22 05:20 Labs: Laboratory Results - last 24 hr 05/25/22 19:15: WBC 14.1 H, RBC 5.09, Hgb 16.9 H, Hct 50.1, MCV 98.4 H, MCH 33.2 H, MCHC 33.7, RDW Std Deviation 50.1 H, RDW Coeff of [place] 13.8, Plt Count 332, MPV 10.9, Immature Gran % (Auto) 0.600, Neut % (Auto) 72.9 H, Lymph % (Auto) 9.6 L, [place] % (Auto) 7.3, Eos % (Auto) 9.3 H, Baso % (Auto) 0.3, Absolute Neuts (auto) 10.3 H, Absolute Lymphs (auto) 1.36, Nucleated RBC % 0 05/25/22 19:15: PT 15.8 H, INR 1.3, APTT 29.0 05/25/22 19:15: Sodium 139, Potassium 3.6, Chloride 107, Carbon Dioxide 25.0, Anion Gap 7, BUN 29 H, Creatinine 0.99, Estim Creat Clear Calc 85.34, Est GFR (MDRD) Af Amer 97, Est GFR (MDRD) Non-Af 81, BUN/Creatinine Ratio 29.4 H, Glucose 129 H, Calcium 8.7, Total Bilirubin 0.60, AST 180 H, ALT 217 H, Alkaline Phosphatase 117, Troponin I High Sens 18, Total Protein 6.7, Albumin 2.5 L, Globulin 4.2, Albumin/Globulin Ratio 0.6 L, Lipase 27 L 05/25/22 19:15: Ethyl Alcohol < 3.0 05/25/22 19:15: Lactic Acid 1.9 05/25/22 19:15: B-Natriuretic Peptide 53.0 Micro: Microbiology 05/25/22 19:20 Nasal Secretion SARS-CoV-2 Antigen (Rapid) - Final Radiology Impression Chest X-Ray 05/25/22 19:32 IMPRESSION: There is bilateral infiltrate. Electronically Signed: Neo Martin MD at 19:55 EDT , Brain CT 05/25/22 20:20 IMPRESSION: There are no acute intracranial findings. Electronically Signed: Neo Martin MD at 20:38 EDT , Chest CT 05/25/22 20:20 IMPRESSION: Diffuse irregular infiltrates throughout both lung jacob. This is worse in the right lower lobe. Consider atypical pneumonia. Electronically Signed: Neo Martin MD at 20:40 EDT , Assessment & Plan Assessment/Plan (1) Bilateral pneumonia: (2) Hypoxia: (3) Vertigo: (4) Leg weakness: (5) Pre-syncope: PLAN: Plan Bilateral pneumonia with hypoxia CT chest showed bilateral pneumonia. CT chest was visualized independently. I agree with radiologist interpretation. CBC showed a white count of 13.2; trend. Ceftriaxone and azithromycin ordered emergency department and continued. SARS COVID at emergency department was negative. Legionella and strep coccus antigen ordered. Acute respiratory failure ruled out since patient requires maximum of 4 L of nasal cannula oxygen. Continue oxygen supplementation as necessary. Leg weakness. PT and OT to work with patient. Presyncope/Vertigo Brain CT with no acute abnormalities. PT and OT to work with patient. Meclizine as needed for vertigo. Charges/Coding Visit Charges Inpatient E&M: 04406 Init Hosp L3
[2022-05-25 21:36] LABS: Color, Urine Amber (Yellow); Glucose, Dipstick Normal (Normal); Ketone-Dipstick 5 mg/dl (Negative); Leukocyte Esterase-Dipstick 25 /ul (Negative); Nitrite-Dipstick Negative (Negative); Occult Blood-Urine 10 /ul (Negative); Protein-Dipstick 15 mg/dl (Negative); Urine Clarity Clear (Clear); Urine Urobilinogen 1 mg/dl (Normal)
[2022-05-25 21:39] LABS: Urine Bilirubin Dipstick 1 mg/dL (Negative)
[2022-05-25 21:44] LABS: Mucous, Urine 1+ /hpf (<or=2+); Red Blood Cells-Urine 0-5 SEEN /hpf (0-5); White Blood Cells 0-5 SEEN /hpf (0-5)
--- NOTE | 2022-05-25 23:38 | ECHOD_ITS ---
Reason For Study: Syncope Procedure This was a 2D Doppler, Color Flow transthoracic echocardiogram. Exam performed portable in patient room. Left Ventricle Mildly dilated left ventricle. The estimated ejection fraction is 35 %. Stage 1 diastolic dysfunction. Mid-Inferior: Akinetic. Infero-Basal: Akinetic. Mid-inferoseptal : Akinetic. The rest of the wall segments are hypokinetic. Right Ventricle Normal RV size. ICD or pacer leads identified within the right ventricle. Normal systolic function. Atria The left atrium is mildly enlarged. Normal right atrium. Mitral Valve Normal mitral valve. Tricuspid Valve Normal tricuspid valve. Aortic Valve Trisinus/trileaflet aortic valve. Pulmonic Valve Normal pulmonic valve. Great Vessels Normal aortic root. The pulmonary artery is normal size. Normal inferior vena cava. Pericardium/Pleural No pericardial effusion. MMode/2D Measurements & Calculations LVIDd: 6.1 cm IVSd: 1.2 cm LAV(MOD-bp): 68.0 ml LVIDs: 5.0 cm LVPWd: 0.96 cm LAV(MOD-bp) Indexed: 32.5 ml/m2 RVDd: 4.0 cm FS: 17.6 % LAV(MOD-sp2): 59.2 ml LAV(MOD-sp4): 69.5 ml SV(MOD-sp4): 83.1 ml LVAd ap4: 46.7 cm2 LVAd ap2: 44.0 cm2 LVLd ap4: 10.1 cm LVLd ap2: 9.7 cm EDV(MOD-sp4): 177.6 ml EDV(MOD-sp2): 169.6 ml EDV(sp4-el): 183.1 ml EDV(sp2-el): 168.7 ml LVAs ap4: 32.3 cm2 LVAs ap2: 34.7 cm2 LVLs ap4: 9.2 cm LVLs ap2: 8.6 cm ESV(MOD-sp4): 94.5 ml ESV(MOD-sp2): 121.6 ml ESV(sp4-el): 96.1 ml ESV(sp2-el): 119.6 ml EF(MOD-sp4): 46.8 % EF(MOD-sp2): 28.3 % EF(sp4-el): 47.5 % SV(MOD-sp2): 48.1 ml SV(sp4-el): 87.0 ml LA A4 area: 23.1 cm2 LA dimension(2D): 4.2 cm RA A4 area: 17.7 cm2 Doppler Measurements & Calculations MV E max mazin: 49.7 cm/sec Lat Peak E' Mazin: 6.5 cm/sec Med Peak E' Mazin: 5.5 cm/sec MV A max mazin: 91.3 cm/sec E/E' lat: 7.7 E/E' med: 9.1 MV E/A: 0.54 Ao V2 max: 130.7 cm/sec LV V1 max: 104.9 cm/sec PA V2 max: 102.6 cm/sec Ao max P.8 mmHg LV V1 max P.4 mmHg PA V2 mean: 71.7 cm/sec Ao V2 mean: 93.3 cm/sec LV V1 mean P.6 mmHg Ao mean P.0 mmHg LV V1 mean: 74.8 cm/sec Ao V2 VTI: 25.6 cm LV V1 VTI: 19.0 cm ECHO/Echo Complete Interpretation Summary Mildly dilated left ventricle. The estimated ejection fraction is 35 %. Stage 1 diastolic dysfunction. The left atrium is mildly enlarged. Ordering Physician: Luciano Murphy Performed By: Selene Shelton RDCS
[2022-05-26] VITALS (13 sets, daily range): BP systolic 126–145; BP diastolic 66–75; PULSE 60–75; RESP 16–19; TEMP 36.2–37.1; O2SAT 91–94
[2022-05-26] MEDS: 0.9% Normal Saline 1,000 ML 100 ML IV ×3 (00:18→20:23)
[2022-05-26] MEDS: Amiodarone 200 MG Tablet PO ×3 (00:20→16:39)
[2022-05-26] MEDS: guaiFENesin 1,200 MG Tablet 1200 MG PO ×3 (00:22→21:42)
[2022-05-26] MEDS: 0.9% Saline Lock 10 ML Syringe IV (03:24)
[2022-05-26] MEDS: Ondansetron 4 MG/2 ML Vial IV (03:24)
[2022-05-26 05:39] LABS: Absolute Lymphocyte Count 1.26 X10^3/uL (0.83-4.51); Absolute Neutrophil Count 9.7 X10^3/uL (2.0-7.7); Basophil# 0.05 X10^3/uL; Basophil% 0.4 % (0-1); Eosinophil# 1.61 X10^3/uL; Eosinophils% 12.2 % (0-5); Hematocrit 42.9 % (40-54); Hemoglobin 14.5 g/dL (13.0-16.5); Lymphocyte # 1.26 X10^3/ul (0.83-4.51); Lymphocyte % 9.5 % (19-41); Mean Corp Hgb Conc 33.8 g/dL (32-36); Mean Corpuscular Hgb 33.2 pg (27.0-32.0); Mean Corpuscular Volume 98.2 fL (80-94); Mean Platelet Vol. 10.5 fl (6.2-12.0); Monocyte# 0.56 X10^3/uL; Monocyte% 4.2 % (0-10); NRBC Flagged by Analyzer 0 % (0-5); Neutrophil # 9.67 X10^3/uL (2.7-7.7); Platelet Count 262 K/mm3 (150-450); RBC Distribution Width CV 13.5 % (11.6-14.6); RBC Distribution Width SD 49.2 fl (35.1-43.9); Red Blood Count 4.37 M/mm3 (4.6-6.2); White Blood Count 13.2 K/mm3 (4.4-11.0)
[2022-05-26 05:57] LABS: Anion Gap 7 (5-15); BUN 23 mg/dL (7-18); BUN/Creat Ratio 31.2 RATIO (10-20); Calcium,Total 7.9 mg/dL (8.5-10.1); Chloride 109 mmol/L (98-107); Creatinine, Serum 0.74 mg/dL (0.70-1.30); EST Glomerular Filtration Rate 113 mL/min (>60); Est Glom Filt Rate - Afr Amer 136 mL/min (>60); Estimated Creatinine Clearance 84.48 ml/min; Glucose 134 mg/dL (74-106); Potassium 3.4 mmol/L (3.5-5.1); Sodium Level 139 mmol/L (136-145)
[2022-05-26] MEDS: Metoprolol(XL)Succ 25 MG Tablet 12.5 MG PO (10:06)
[2022-05-26] MEDS: Aspirin E.C. 81 MG Tablet PO (10:06)
[2022-05-26] MEDS: Clopidogrel Bisulfate 75 MG Tablet PO (10:06)
[2022-05-26] MEDS: Enoxaparin 40 MG/0.4 ML Syringe SC (10:06)
[2022-05-26] MEDS: PARoxetine 10 MG Tablet 30 MG PO (10:07)
--- NOTE | 2022-05-26 11:29 | PCM.PN.HOSP ---
Documented by User: Melly Rosado [employer] SUPER[employer]-C 05/26/22 11:45 Subjective Subjective Patient seen and examined. Patient sitting in bed, no distress noted. Currently on 4L n/c, not on oxygen at baseline. Objective Data Objective Data Vital Signs: Vital Signs Temp Pulse Resp BP Pulse Ox O2 Del Method O2 Flow Rate 97.2 F L 65 18 126/72 H 93 Nasal Cannula 4 05/26/22 10:02 05/26/22 10:06 05/26/22 10:02 05/26/22 10:06 05/26/22 10:02 05/26/22 10:10 05/26/22 10:10 Oxygen Flow Rate (L/min) 4 Oxygen Delivery Method Nasal Cannula Weight: 183 lb 12.8 oz Body Mass Index (BMI) 23.6 Intake & Output: Intake and Output for Last 24 Hours 05/24/22 05/25/22 05/26/22 23:59 23:59 23:59 Intake Total 1305 / 1305 993.33 / 993.33 Balance 1305 / 1305 993.33 / 993.33 Lab / Micro Data Result Diagrams: 05/26/22 05:20 05/26/22 05:20 Labs: Laboratory Results - last 24 hr 05/25/22 19:15: WBC 14.1 H, RBC 5.09, Hgb 16.9 H, Hct 50.1, MCV 98.4 H, MCH 33.2 H, MCHC 33.7, RDW Std Deviation 50.1 H, RDW Coeff of [place] 13.8, Plt Count 332, MPV 10.9, Immature Gran % (Auto) 0.600, Neut % (Auto) 72.9 H, Lymph % (Auto) 9.6 L, [place] % (Auto) 7.3, Eos % (Auto) 9.3 H, Baso % (Auto) 0.3, Absolute Neuts (auto) 10.3 H, Absolute Lymphs (auto) 1.36, Nucleated RBC % 0 05/25/22 19:15: PT 15.8 H, INR 1.3, APTT 29.0 05/25/22 19:15: Sodium 139, Potassium 3.6, Chloride 107, Carbon Dioxide 25.0, Anion Gap 7, BUN 29 H, Creatinine 0.99, Estim Creat Clear Calc 85.34, Est GFR (MDRD) Af Amer 97, Est GFR (MDRD) Non-Af 81, BUN/Creatinine Ratio 29.4 H, Glucose 129 H, Calcium 8.7, Total Bilirubin 0.60, AST 180 H, ALT 217 H, Alkaline Phosphatase 117, Troponin I High Sens 18, Total Protein 6.7, Albumin 2.5 L, Globulin 4.2, Albumin/Globulin Ratio 0.6 L, Lipase 27 L 05/25/22 19:15: Ethyl Alcohol < 3.0 05/25/22 19:15: Lactic Acid 1.9 05/25/22 19:15: B-Natriuretic Peptide 53.0 05/25/22 21:15: Urine Color [place], Urine Clarity Clear, Urine pH 6.0, Ur Specific [place] 1.020, Urine Protein 15 H, Urine Glucose (UA) Normal, Urine Ketones 5 H, Urine Occult Blood 10 H, Urine Nitrite Negative, Urine Bilirubin 1 H, Urine Urobilinogen 1 H, Ur Leukocyte Esterase 25 H, Urine RBC 0-5 SEEN, Urine WBC 0-5 SEEN, Ur Squamous Epith Cells 0 SEEN, Urine Bacteria 0 SEEN, Urine Mucus 1+ 05/26/22 05:20: WBC 13.2 H, RBC 4.37 L, Hgb 14.5, Hct 42.9, MCV 98.2 H, MCH 33.2 H, MCHC 33.8, RDW Std Deviation 49.2 H, RDW Coeff of [place] 13.5, Plt Count 262, MPV 10.5, Immature Gran % (Auto) 0.700, Neut % (Auto) 73.0 H, Lymph % (Auto) 9.5 L, [place] % (Auto) 4.2, Eos % (Auto) 12.2 H, Baso % (Auto) 0.4, Absolute Neuts (auto) 9.7 H, Absolute Lymphs (auto) 1.26, Nucleated RBC % 0 05/26/22 05:20: Sodium 139, Potassium 3.4 L, Chloride 109 H, Carbon Dioxide 23.0, Anion Gap 7, BUN 23 H, Creatinine 0.74, Estim Creat Clear Calc 84.48, Est GFR (MDRD) Af Amer 136, Est GFR (MDRD) Non-Af 113, BUN/Creatinine Ratio 31.2 H, Glucose 134 H, Calcium 7.9 L Micro: Microbiology 05/25/22 21:15 Urine Catheter - Catheter Legionella Antigen - Final 05/25/22 21:15 Urine Catheter - Catheter Streptococcus pneumoniae Antigen (M - Final 05/25/22 19:20 Nasal Secretion SARS-CoV-2 Antigen (Rapid) - Final Radiography Diagnostic Testing: Radiology Impression Chest X-Ray 05/25/22 19:32 IMPRESSION: There is bilateral infiltrate. Electronically Signed: Neo Martin MD at 19:55 EDT , Brain CT 05/25/22 20:20 IMPRESSION: There are no acute intracranial findings. Electronically Signed: Neo Martin MD at 20:38 EDT , Chest CT 05/25/22 20:20 IMPRESSION: Diffuse irregular infiltrates throughout both lung jacob. This is worse in the right lower lobe. Consider atypical pneumonia. Electronically Signed: Neo Martin MD at 20:40 EDT , Physical Exam Const alert, oriented x3 and no apparent distress HEENT head/scalp atraumatic and moist oral mucous membranes Head and Scalp: normocephalic Eyes conjunctivae normal and no scleral icterus Neck no lymphadenopathy and supple Resp normal respiratory effort Auscultation: crackles bilateral base Cardio regular rate, regular rhythm, S1 normal heart sound and S2 normal heart sound GI normal to inspection, nondistended, normoactive bowel sounds, soft to palpation and non-tender Extremity normal to inspection, full ROM and no clubbing, cyanosis or edema Neuro oriented x3, moves all extremities, no focal motor deficits and no sensory deficits noted Sensorium / Orientation: awake and alert Psych affect normal Assessment & Plan Assessment/Plan (1) Bilateral pneumonia: PLAN: Plan 1. Bilateral pneumonia -Continue ceftriaxone and azithromycin -Continue breathing treatments -Patient currently on 4 L nasal cannula continue to wean as tolerated -Legionella and strep pneumoniae urine negative, respiratory panel pending 2. Generalized weakness -PT and OT following 3. Vertigo and presyncope -Brain CT negative -Meclizine ordered as needed for vertigo -Patient has positive orthostatic vital signs 4. Hypokalemia -Potassium 3.4 -Potassium chloride 40 mEq x 1 ordered -BMP daily 5. CAD -Continue aspirin and Plavix 6. Presence of ICD -Implanted 10/31/2017 7. Hypertension -Continue metoprolol -Vital signs per protocol, currently stable DVT prophylaxis-subcu Lovenox This patient was seen by Melly Rosado NP-C under the supervision of Dr. Au. 13 minutes spent in clinical coordination of patient's plan of care. Documented by User: Dr. Adrian Au MD 05/26/22 13:11 Objective Data Lab / Micro Data Result Diagrams: 05/26/22 05:20 05/26/22 05:20 Assessment & Plan Assessment/Plan (1) Bilateral pneumonia: Charges/Coding Addendum Addendum: Addendum: Dr. Au I personally examined the patient and reviewed the chart. I agree with the above. 67-year-old male presented to the hospital with shortness of breath and dizziness. He says that the vertigo has started for about a week. CT scan of his chest demonstrated bilateral pneumonia, COVID was negative as was his viral respiratory panel. We will continue with Rocephin and azithromycin and continue to monitor. He does have a past history of alcoholism but he states that he has not drank for quite a while now. Clinical time spent in all aspects of patient care: 20 minutes Visit Charges Inpatient E&M: 50541 Subs Hosp L2
[2022-05-26] MEDS: Potassium Chloride Oral Tablet 20 MEQ 40 MEQ PO (12:47)
[2022-05-26] MEDS: Acetaminophen 325 MG Tablet 650 MG PO (20:25)
[2022-05-26] MEDS: Ceftriaxone 1 GM/50 ML BAG IV (21:22)
[2022-05-27] VITALS (14 sets, daily range): BP systolic 126–150; BP diastolic 65–83; PULSE 65–85; RESP 16–20; TEMP 36.6–37.2; O2SAT 85–93
[2022-05-27] MEDS: 0.9% Normal Saline 1,000 ML 100 ML IV ×3 (06:10→23:32)
[2022-05-27 06:32] LABS: Absolute Lymphocyte Count 0.99 X10^3/uL (0.83-4.51); Absolute Neutrophil Count 10.4 X10^3/uL (2.0-7.7); Basophil# 0.03 X10^3/uL; Basophil% 0.2 % (0-1); Eosinophils% 15.2 % (0-5); Hematocrit 42.9 % (40-54); Hemoglobin 14.9 g/dL (13.0-16.5); Lymphocyte # 0.99 X10^3/ul (0.83-4.51); Lymphocyte % 6.8 % (19-41); Mean Corp Hgb Conc 34.7 g/dL (32-36); Mean Corpuscular Hgb 34.1 pg (27.0-32.0); Mean Corpuscular Volume 98.2 fL (80-94); Mean Platelet Vol. 11.1 fl (6.2-12.0); Monocyte# 0.92 X10^3/uL; Monocyte% 6.3 % (0-10); NRBC Flagged by Analyzer 0 % (0-5); Neutrophil # 10.38 X10^3/uL (2.7-7.7); Neutrophil % 70.8 % (47-70); POSITIVE DIFFERENTIAL YES; Platelet Count 261 K/mm3 (150-450); RBC Distribution Width CV 13.7 % (11.6-14.6); RBC Distribution Width SD 49.6 fl (35.1-43.9); Red Blood Count 4.37 M/mm3 (4.6-6.2); White Blood Count 14.7 K/mm3 (4.4-11.0)
[2022-05-27 07:00] LABS: Eosinophil# 2.23 X10^3/uL
[2022-05-27 07:01] LABS: Differential Indicated SCAN CRITERIA MET; Macrocytosis 1+
[2022-05-27 07:02] LABS: Anion Gap 6 (5-15); BUN 13 mg/dL (7-18); BUN/Creat Ratio 21.2 RATIO (10-20); Chloride 110 mmol/L (98-107); Creatinine, Serum 0.61 mg/dL (0.70-1.30); EST Glomerular Filtration Rate 139 mL/min (>60); Est Glom Filt Rate - Afr Amer 169 mL/min (>60); Estimated Creatinine Clearance 84.48 ml/min; Glucose 108 mg/dL (74-106); Potassium 4.3 mmol/L (3.5-5.1); Sodium Level 137 mmol/L (136-145)
[2022-05-27] MEDS: Clopidogrel Bisulfate 75 MG Tablet PO (09:35)
[2022-05-27] MEDS: Amiodarone 200 MG Tablet PO ×2 (09:35→17:15)
[2022-05-27] MEDS: Aspirin E.C. 81 MG Tablet PO (09:35)
[2022-05-27] MEDS: guaiFENesin 1,200 MG Tablet 1200 MG PO ×2 (09:35→20:43)
[2022-05-27] MEDS: PARoxetine 10 MG Tablet 30 MG PO (09:35)
[2022-05-27] MEDS: Enoxaparin 40 MG/0.4 ML Syringe SC (09:35)
[2022-05-27] MEDS: Metoprolol(XL)Succ 25 MG Tablet 12.5 MG PO (09:35)
--- NOTE | 2022-05-27 10:05 | CASEMGMT ---
RN CM Face to Face with patient for initial transition planning/care coordination assessment. RN CM introduced self and role at [facility]. Patient lying in bed, alert and oriented. Patient willing to participate in assessment and is able to answer all questions appropriately. Care providers, pharmacy, and demographics verified. Patient is unsure of disposition at discharge and will monitor progress with therapy. RN CM called PT and requested be placed at top of list to be seen today. Patient states he has no further needs or concerns at this time. CM to follow for discharge planning needs that may arise. PCP: Luis Branch QUILL FIXER Specialists: Gretta, spot facer; René, ortho Preferred Pharmacy: [facility], [facility] retail at discharge. Insurance: [employer] Prescription Benefit: yes Living Will/HPOA: none LNOK: brother Living Arrangements: Patient states he recent moved quickly into his new living arrangements. Patient is in a ranch style home with no steps to enter. Patient states he was independent at home. Transportation: [facility] Van, public transportation, brother at time if enough notice is given. DME/HHC: Patient states he has walker, raised toielt, and grab bars. Patient had shower chair but is not sure what happened to it in the move. Patient has previously had HHC. Patient has been to [facility], [facility], and [facility]CU in the past. Disposition Plan: TBD by progress with therapy, anticipate HHC vs SNF. Geno MANN, RN, CM
--- NOTE | 2022-05-27 11:57 | PN.HOSP_ITS ---
Documented by User: HI Morales 05/27/22 12:02 Subjective Subjective Patient seen and examined. Patient lying in bed without oxygen, oxygen placed back on patient. Homegoing oxygen qualification ordered Objective Data Objective Data Vital Signs: Vital Signs Temp Pulse Resp BP Pulse Ox O2 Del Method O2 Flow Rate 98.4 F 75 18 150/75 H 86 Nasal Cannula 0 05/27/22 09:30 05/27/22 09:35 05/27/22 09:30 05/27/22 09:35 05/27/22 11:52 05/27/22 09:30 05/27/22 11:52 Oxygen Flow Rate (L/min) [ 7 AMBULATING with Oxygen #3] Oxygen Flow Rate (L/min) [ 5 AMBULATING with Oxygen #2] Oxygen Flow Rate (L/min) [ 4 AMBULATING with Oxygen #1] Oxygen Flow Rate (L/min) [At 4 REST with Oxygen] Oxygen Flow Rate (L/min) [At 0 REST on Room Air] Oxygen Flow Rate (L/min) 3 Oxygen Delivery Method Nasal Cannula Weight: 183 lb 12.8 oz Body Mass Index (BMI) 23.6 Intake & Output: Intake and Output for Last 24 Hours 05/25/22 05/26/22 05/27/22 23:59 23:59 23:59 Intake Total 1305 / 1305 2818.33 / 3018.33 1178.33 / 1178.33 Output Total 600 / 1100 1075 / 1075 Balance 1305 / 1305 2218.33 / 1918.33 103.33 / 103.33 Lab / Micro Data Result Diagrams: 05/27/22 05:14 05/27/22 05:14 Labs: Laboratory Results - last 24 hr 05/26/22 07:44: COVID-19 (NIKOLAS) Cancelled 05/26/22 13:11: COVID-19 (NIKOLAS) Not Detected 05/27/22 05:14: WBC 14.7 H, RBC 4.37 L, Hgb 14.9, Hct 42.9, MCV 98.2 H, MCH 34.1 H, MCHC 34.7, RDW Std Deviation 49.6 H, RDW Coeff of [place]oli 13.7, Plt Count 261, MPV 11.1, Immature Gran % (Auto) 0.700, Neut % (Auto) 70.8 H, Lymph % (Auto) 6.8 L, [place] % (Auto) 6.3, Eos % (Auto) 15.2 H, Baso % (Auto) 0.2, Absolute Neuts (auto) 10.4 H, Absolute Lymphs (auto) 0.99, Nucleated RBC % 0, Macrocytosis 1+ 05/27/22 05:14: Sodium 137, Potassium 4.3, Chloride 110 H, Carbon Dioxide 21.0, Anion Gap 6, BUN 13, Creatinine 0.61 L, Estim Creat Clear Calc 84.48, Est GFR (MDRD) Af Amer 169, Est GFR (MDRD) Non-Af 139, BUN/Creatinine Ratio 21.2 H, Glucose 108 H, Calcium 8.0 L Micro: Microbiology 05/26/22 07:44 Mucosa - Nasopharyngeal Respiratory Panel (PCR) - Final 05/25/22 21:15 Urine Catheter - Catheter Legionella Antigen - Final 05/25/22 21:15 Urine Catheter - Catheter Streptococcus pneumoniae Antigen (M - Final 05/25/22 19:20 Nasal Secretion SARS-CoV-2 Antigen (Rapid) - Final Physical Exam Const alert, oriented x3 and no apparent distress HEENT head/scalp atraumatic and moist oral mucous membranes Eyes conjunctivae normal and no scleral icterus Neck no lymphadenopathy and supple Resp normal respiratory effort Effort and Inspection: able to speak in complete sentences and symmetric chest movement Auscultation: wheezes expiratory wheezes, anterior, posterior and throughout Cardio regular rate, regular rhythm, S1 normal heart sound and S2 normal heart sound GI normal to inspection, nondistended, normoactive bowel sounds, soft to palpation and non-tender Extremity normal to inspection, full ROM and no clubbing, cyanosis or edema Neuro oriented x3, moves all extremities, no focal motor deficits and no sensory deficits noted Sensorium / Orientation: awake and alert Psych affect normal Assessment & Plan Assessment/Plan (1) Bilateral pneumonia: PLAN: Plan 1. Bilateral pneumonia -Continue ceftriaxone and azithromycin -Continue breathing treatments -Patient currently on 4 L nasal cannula continue to wean as tolerated -Legionella and strep pneumoniae urine negative, respiratory panel pending 2. Generalized weakness -PT and OT following 3. Vertigo and presyncope -Brain CT negative -Meclizine ordered as needed for vertigo -Patient has positive orthostatic vital signs 4. Hypokalemia -Potassium 4.3 -BMP daily 5. CAD -Continue aspirin and Plavix 6. Presence of ICD -Implanted 10/31/2017 7. Hypertension -Continue metoprolol -Vital signs per protocol, currently stable DVT prophylaxis-subcu Lovenox This patient was seen by HI Morales under the supervision of Dr. Phan. 11 minutes spent in clinical coordination of patient's plan of care. Documented by User: Dr. Rodrigo Phan MD 05/27/22 12:24 Objective Data Lab / Micro Data Result Diagrams: 05/27/22 05:14 05/27/22 05:14 Assessment & Plan Assessment/Plan (1) Bilateral pneumonia: PLAN: Plan 1. Bilateral pneumonia -Continue ceftriaxone and azithromycin -Continue breathing treatments -Patient currently on 4 L nasal cannula continue to wean as tolerated -Legionella and strep pneumoniae urine negative, respiratory panel pending 2. Generalized weakness -PT and OT following 3. Vertigo and presyncope -Brain CT negative -Meclizine ordered as needed for vertigo -Patient has positive orthostatic vital signs 4. Hypokalemia -Potassium 4.3 -BMP daily 5. CAD -Continue aspirin and Plavix 6. Presence of ICD -Implanted 10/31/2017 7. Hypertension -Continue metoprolol -Vital signs per protocol, currently stable DVT prophylaxis-subcu Lovenox This patient was seen by HI Morales under the supervision of Dr. Phan. Addt'l Comments This patient was seen in conjunction with HI Morales . I have independently interviewed and examined the patient and reviewed pertinent historical, laboratory, and other data. Please refer to HI Morales note for details of this patient's presentation, findings, and recommendations. I have reviewed HI Morales note and concur with documented findings. In brief, patient is a 67-year-old gentleman who presented with shortness of breath. CT of the chest obtained on admission demonstrated diffuse irregular infiltrates throughout both lung jacob.? This is worse in the right lower lobe.? Admitted to regular nursing floor where patient is currently being managed 05/27/2022; seen remains significantly dyspneic requiring 7 L with ambulation Physical Examination: GENERAL: cooperative but dyspneic at rest HEENT: Atraumatic; EYES; Anicteric, Normal Conjunctiva NECK; supple, normal thyroid, RESPIRATORY: Diminished to auscultation CARDIOVASCULAR: Regular S1 S2, GI: soft, normoactive bowel sounds, : No Renal angle tenderness; EXTREMITIES: No edema, no clubbing, MUSCULOSKELETAL: no muscle wasting NEURO: Awake; no lateralizing signs. SKIN: No Rash PSYCH; Flat affect Assessment: 1. Acute hypoxia 2. Community-acquired pneumonia 3. Coronary artery disease with previous stent placement 4. Hypokalemia 5. Essential hypertension 6. Tobacco dependence 7. Depression with anxiety 8. History of paroxysmal ventricular tachycardia status post AICD placement patient is on amiodarone 9. Physical deconditioning Recommendations: 1. I have discussed the results of my overview and impressions with the patient 2. Options for management were reviewed Total time spent by myself and the advanced practice practitioner evaluating patient, reviewing labs, subsequent management decisions, discussion with patient as well as other providers 45 minutes ( 25 of which was spent by myself) Charges/Coding Visit Charges Inpatient E&M: 27253 [facility] Hosp L3
[2022-05-27] MEDS: Acetaminophen 325 MG Tablet 650 MG PO (14:38)
[2022-05-27] MEDS: Ceftriaxone 1 GM/50 ML BAG IV (20:39)
[2022-05-28] VITALS (12 sets, daily range): BP systolic 127–141; BP diastolic 70–75; PULSE 63–79; RESP 16–20; TEMP 36.5–36.9; O2SAT 90–93
--- NOTE | 2022-05-28 03:50 | NURSING ---
RT contacted d/t Pt requiring 6 L 02 via NC. PRN aerosol provided, IS provided. pt noted with non productive cough. will monitor.
[2022-05-28] MEDS: Albuterol 2.5 MG/3 ML VIAL.NEB. INHALATION (04:07)
[2022-05-28] MEDS: 0.9% Saline Lock 10 ML Syringe IV (05:10)
[2022-05-28 05:41] LABS: Absolute Lymphocyte Count 1.35 X10^3/uL (0.83-4.51); Absolute Neutrophil Count 12.3 X10^3/uL (2.0-7.7); Basophil# 0.04 X10^3/uL; Basophil% 0.3 % (0-1); Eosinophil# 1.17 X10^3/uL; Eosinophils% 7.4 % (0-5); Hematocrit 42.9 % (40-54); Hemoglobin 14.9 g/dL (13.0-16.5); Lymphocyte # 1.35 X10^3/ul (0.83-4.51); Lymphocyte % 8.6 % (19-41); Mean Corp Hgb Conc 34.7 g/dL (32-36); Mean Corpuscular Hgb 33.9 pg (27.0-32.0); Mean Corpuscular Volume 97.5 fL (80-94); Mean Platelet Vol. 11.4 fl (6.2-12.0); Monocyte# 0.78 X10^3/uL; NRBC Flagged by Analyzer 0 % (0-5); Neutrophil # 12.31 X10^3/uL (2.7-7.7); Neutrophil % 78.1 % (47-70); Platelet Count 240 K/mm3 (150-450); RBC Distribution Width CV 13.6 % (11.6-14.6); RBC Distribution Width SD 48.5 fl (35.1-43.9); White Blood Count 15.7 K/mm3 (4.4-11.0)
[2022-05-28 06:09] LABS: Anion Gap 5 (5-15); BUN 10 mg/dL (7-18); BUN/Creat Ratio 16.9 RATIO (10-20); Chloride 106 mmol/L (98-107); Creatinine, Serum 0.59 mg/dL (0.70-1.30); EST Glomerular Filtration Rate 146 mL/min (>60); Est Glom Filt Rate - Afr Amer 177 mL/min (>60); Estimated Creatinine Clearance 84.48 ml/min; Glucose 114 mg/dL (74-106); Sodium Level 136 mmol/L (136-145)
[2022-05-28] MEDS: Amiodarone 200 MG Tablet PO ×2 (08:13→16:28)
[2022-05-28] MEDS: guaiFENesin 1,200 MG Tablet 1200 MG PO ×2 (08:13→20:41)
[2022-05-28] MEDS: Metoprolol(XL)Succ 25 MG Tablet 12.5 MG PO (08:13)
[2022-05-28] MEDS: Aspirin E.C. 81 MG Tablet PO (08:13)
[2022-05-28] MEDS: Enoxaparin 40 MG/0.4 ML Syringe SC (08:13)
[2022-05-28] MEDS: PARoxetine 10 MG Tablet 30 MG PO (08:14)
[2022-05-28] MEDS: Clopidogrel Bisulfate 75 MG Tablet PO (08:14)
[2022-05-28] MEDS: 0.9% Normal Saline 1,000 ML 100 ML IV ×2 (08:58→17:39)
--- NOTE | 2022-05-28 10:29 | PCM.PN.HOSP ---
Documented by User: HI Morales 05/28/22 10:30 Subjective Subjective Patient seen and examined. Patient sitting in bed no distress noted. Patient encouraged to ambulate in the room and use incentive spirometry. Objective Data Objective Data Vital Signs: Vital Signs Temp Pulse Resp BP Pulse Ox O2 Del Method O2 Flow Rate 97.7 F L 68 18 139/75 H 93 Nasal Cannula 4 05/28/22 08:10 05/28/22 08:13 05/28/22 08:10 05/28/22 08:13 05/28/22 08:10 05/28/22 08:10 05/28/22 08:10 Oxygen Flow Rate (L/min) [ 7 AMBULATING with Oxygen #3] Oxygen Flow Rate (L/min) [ 5 AMBULATING with Oxygen #2] Oxygen Flow Rate (L/min) [ 4 AMBULATING with Oxygen #1] Oxygen Flow Rate (L/min) [At 4 REST with Oxygen] Oxygen Flow Rate (L/min) [At 0 REST on Room Air] Oxygen Flow Rate (L/min) 4 Oxygen Delivery Method Nasal Cannula Weight: 183 lb 12.8 oz Body Mass Index (BMI) 23.6 Intake & Output: Intake and Output for Last 24 Hours 05/26/22 05/27/22 05/28/22 23:59 23:59 23:59 Intake Total 2818.33 / 3018.33 4520.00 / 4520.00 993.33 / 993.33 Output Total 600 / 1100 3300 / 3300 800 / 800 Balance 2218.33 / 1918.33 1220.00 / 1220.00 193.33 / 193.33 Lab / Micro Data Result Diagrams: 05/28/22 04:25 05/28/22 04:25 Labs: Laboratory Results - last 24 hr 05/28/22 04:25: WBC 15.7 H, RBC 4.40 L, Hgb 14.9, Hct 42.9, MCV 97.5 H, MCH 33.9 H, MCHC 34.7, RDW Std Deviation 48.5 H, RDW Coeff of Yoli 13.6, Plt Count 240, MPV 11.4, Immature Gran % (Auto) 0.600, Neut % (Auto) 78.1 H, Lymph % (Auto) 8.6 L, [place] % (Auto) 5.0, Eos % (Auto) 7.4 H, Baso % (Auto) 0.3, Absolute Neuts (auto) 12.3 H, Absolute Lymphs (auto) 1.35, Nucleated RBC % 0 05/28/22 04:25: Sodium 136, Potassium 4.0, Chloride 106, Carbon Dioxide 25.0, Anion Gap 5, BUN 10, Creatinine 0.59 L, Estim Creat Clear Calc 84.48, Est GFR (MDRD) Af Amer 177, Est GFR (MDRD) Non-Af 146, BUN/Creatinine Ratio 16.9, Glucose 114 H, Calcium 8.0 L Micro: Microbiology 05/26/22 07:44 Mucosa - Nasopharyngeal Respiratory Panel (PCR) - Final 05/25/22 21:15 Urine Catheter - Catheter Legionella Antigen - Final 05/25/22 21:15 Urine Catheter - Catheter Streptococcus pneumoniae Antigen (M - Final 05/25/22 19:20 Nasal Secretion SARS-CoV-2 Antigen (Rapid) - Final Radiography Diagnostic Testing: Radiology Impression Echocardiogram 05/25/22 23:38 Interpretation Summary Mildly dilated left ventricle. The estimated ejection fraction is 35 %. Stage 1 diastolic dysfunction. The left atrium is mildly enlarged. Ordering Physician: Luciano Murphy Performed By: Selene Shelton RDCS Physical Exam Const alert, oriented x3 and no apparent distress HEENT head/scalp atraumatic and moist oral mucous membranes Eyes conjunctivae normal and no scleral icterus Neck no lymphadenopathy and supple Resp normal respiratory effort Effort and Inspection: able to speak in complete sentences and symmetric chest movement Auscultation: crackles bilateral base and wheezes expiratory wheezes, anterior, posterior and throughout Cardio regular rate, regular rhythm, S1 normal heart sound and S2 normal heart sound GI normal to inspection, nondistended, normoactive bowel sounds, soft to palpation and non-tender Extremity normal to inspection, full ROM and no clubbing, cyanosis or edema Neuro oriented x3, moves all extremities, no focal motor deficits and no sensory deficits noted Sensorium / Orientation: awake and alert Psych affect normal Assessment & Plan Assessment/Plan (1) Bilateral pneumonia: PLAN: Plan 1. Bilateral pneumonia -Continue ceftriaxone and azithromycin -Continue breathing treatments -Patient currently on 4 L nasal cannula continue to wean as tolerated, patient needed 7 L when ambulating yesterday. -Legionella and strep pneumoniae urine negative, respiratory panel pending 2. Generalized weakness -PT and OT following 3. Vertigo and presyncope -Brain CT negative -Meclizine ordered as needed for vertigo -Patient has positive orthostatic vital signs 4. Hypokalemia -Potassium 4.0 -BMP daily 5. CAD -Continue aspirin and Plavix 6. Presence of ICD -Implanted 10/31/2017 7. Hypertension -Continue metoprolol -Vital signs per protocol, currently stable DVT prophylaxis-subcu Lovenox This patient was seen by HI Morales under the supervision of Dr. Phan. Documented by User: Dr. Rodrigo Phan MD 05/28/22 11:53 Objective Data Lab / Micro Data Result Diagrams: 05/28/22 04:25 05/28/22 04:25 Assessment & Plan Assessment/Plan (1) Bilateral pneumonia: Addt'l Comments This patient was seen in conjunction with HI Morales .? I have independently interviewed and examined the patient and reviewed pertinent historical, laboratory, and other data.? Please refer to HI Morales? note for details of this patient's presentation, findings, and recommendations.? I have reviewed? HI Morales note and concur? with documented findings. In brief, patient is a 67-year-old gentleman who presented with shortness of breath.? CT of the chest obtained on admission demonstrated diffuse irregular infiltrates throughout both lung jacob.? This is worse in the right lower lobe.? Admitted to regular nursing floor where patient is currently being managed 05/27/2022; seen remains significantly dyspneic requiring 7 L with ambulation 05/28/2022; patient still still requiring significant amount of supplemental oxygen currently on 4 L at at rest Physical Examination: GENERAL: cooperative but dyspneic at rest HEENT: Atraumatic; EYES; Anicteric, Normal Conjunctiva NECK; supple, normal thyroid, RESPIRATORY: Diminished to auscultation CARDIOVASCULAR:? Regular S1 S2, GI:? soft, normoactive bowel sounds, : No Renal angle tenderness; EXTREMITIES:? No edema, no clubbing, MUSCULOSKELETAL:? no muscle wasting NEURO:? Awake;? no lateralizing signs. SKIN:? No Rash PSYCH; Flat? affect ? Assessment:? 1.? Acute hypoxia 2.? Community-acquired pneumonia 3.? Coronary artery disease with previous stent placement 4.? Hypokalemia 5.? Essential hypertension 6.? Tobacco dependence 7.? Depression with anxiety 8.? History of paroxysmal ventricular tachycardia status post AICD placement patient is on amiodarone 9.? Physical deconditioning Recommendations: 1.? I have discussed the results of my overview and impressions with the patient 2.? Options for management were reviewed Total time spent by myself and the advanced practice practitioner evaluating patient, reviewing labs, subsequent management decisions, discussion with patient as well as other providers 45 minutes ( 25 of which was spent by myself) Charges/Coding Visit Charges Inpatient E&M: 24820 Subs Hosp L2
[2022-05-28] MEDS: Ceftriaxone 1 GM/50 ML BAG IV (20:41)
[2022-05-29] VITALS (17 sets, daily range): BP systolic 128–146; BP diastolic 60–70; PULSE 66–74; RESP 18–20; TEMP 36.4–36.8; O2SAT 90–93
[2022-05-29] MEDS: 0.9% Normal Saline 1,000 ML 100 ML IV (05:09)
[2022-05-29 05:39] LABS: Absolute Lymphocyte Count 1.27 X10^3/uL (0.83-4.51); Absolute Neutrophil Count 12.4 X10^3/uL (2.0-7.7); Basophil# 0.03 X10^3/uL; Basophil% 0.2 % (0-1); Eosinophil# 0.26 X10^3/uL; Eosinophils% 1.7 % (0-5); Hematocrit 42.6 % (40-54); Hemoglobin 14.5 g/dL (13.0-16.5); Lymphocyte # 1.27 X10^3/ul (0.83-4.51); Lymphocyte % 8.5 % (19-41); Mean Corpuscular Hgb 33.2 pg (27.0-32.0); Mean Corpuscular Volume 97.5 fL (80-94); Mean Platelet Vol. 10.8 fl (6.2-12.0); Monocyte# 0.92 X10^3/uL; Monocyte% 6.1 % (0-10); NRBC Flagged by Analyzer 0 % (0-5); Neutrophil # 12.42 X10^3/uL (2.7-7.7); Neutrophil % 82.8 % (47-70); Platelet Count 293 K/mm3 (150-450); RBC Distribution Width CV 13.5 % (11.6-14.6); RBC Distribution Width SD 48.9 fl (35.1-43.9); Red Blood Count 4.37 M/mm3 (4.6-6.2)
[2022-05-29 06:02] LABS: Anion Gap 5 (5-15); BUN 19 mg/dL (7-18); BUN/Creat Ratio 30.9 RATIO (10-20); Calcium,Total 8.2 mg/dL (8.5-10.1); Chloride 108 mmol/L (98-107); Creatinine, Serum 0.61 mg/dL (0.70-1.30); EST Glomerular Filtration Rate 139 mL/min (>60); Est Glom Filt Rate - Afr Amer 169 mL/min (>60); Estimated Creatinine Clearance 84.48 ml/min; Glucose 119 mg/dL (74-106); Potassium 3.9 mmol/L (3.5-5.1); Sodium Level 137 mmol/L (136-145)
[2022-05-29] MEDS: PARoxetine 10 MG Tablet 30 MG PO (08:17)
[2022-05-29] MEDS: guaiFENesin 1,200 MG Tablet 1200 MG PO ×2 (08:17→21:25)
[2022-05-29] MEDS: Enoxaparin 40 MG/0.4 ML Syringe SC (08:17)
[2022-05-29] MEDS: Clopidogrel Bisulfate 75 MG Tablet PO (08:18)
[2022-05-29] MEDS: Metoprolol(XL)Succ 25 MG Tablet 12.5 MG PO (08:18)
[2022-05-29] MEDS: Aspirin E.C. 81 MG Tablet PO (08:18)
[2022-05-29] MEDS: Amiodarone 200 MG Tablet PO ×2 (08:18→17:13)
--- NOTE | 2022-05-29 10:18 | PN.HOSP_ITS ---
Documented by User: HI Morales 05/29/22 10:21 Subjective Subjective Patient seen and examined. Patient lying in bed no distress noted. Patient continues to need 4 L nasal cannula at rest and up to 6 L nasal cannula oxygen with exertion. Objective Data Objective Data Vital Signs: Vital Signs Temp Pulse Resp BP Pulse Ox O2 Del Method O2 Flow Rate 97.6 F L 70 18 134/66 H 90 Nasal Cannula 4 05/29/22 08:20 05/29/22 08:20 05/29/22 08:20 05/29/22 08:20 05/29/22 08:20 05/29/22 08:20 05/29/22 08:20 Oxygen Flow Rate (L/min) [ 7 AMBULATING with Oxygen #3] Oxygen Flow Rate (L/min) [ 5 AMBULATING with Oxygen #2] Oxygen Flow Rate (L/min) [ 4 AMBULATING with Oxygen #1] Oxygen Flow Rate (L/min) [At 4 REST with Oxygen] Oxygen Flow Rate (L/min) [At 0 REST on Room Air] Oxygen Flow Rate (L/min) 4 Oxygen Delivery Method Nasal Cannula Weight: 183 lb 12.8 oz Body Mass Index (BMI) 23.6 Intake & Output: Intake and Output for Last 24 Hours 05/27/22 05/28/22 05/29/22 23:59 23:59 23:59 Intake Total 4520.00 / 4520.00 3116.66 / 3116.66 1000 / 1000 Output Total 3300 / 3300 2925 / 2925 150 / 150 Balance 1220.00 / 1220.00 191.66 / 191.66 850 / 850 Lab / Micro Data Result Diagrams: 05/29/22 05:10 05/29/22 05:10 Labs: Laboratory Results - last 24 hr 05/29/22 05:10: WBC 15.0 H, RBC 4.37 L, Hgb 14.5, Hct 42.6, MCV 97.5 H, MCH 33.2 H, MCHC 34.0, RDW Std Deviation 48.9 H, RDW Coeff of Yoli 13.5, Plt Count 293, MPV 10.8, Immature Gran % (Auto) 0.700, Neut % (Auto) 82.8 H, Lymph % (Auto) 8.5 L, [place] % (Auto) 6.1, Eos % (Auto) 1.7, Baso % (Auto) 0.2, Absolute Neuts (auto) 12.4 H, Absolute Lymphs (auto) 1.27, Nucleated RBC % 0 05/29/22 05:10: Sodium 137, Potassium 3.9, Chloride 108 H, Carbon Dioxide 24.0, Anion Gap 5, BUN 19 H, Creatinine 0.61 L, Estim Creat Clear Calc 84.48, Est GFR (MDRD) Af Amer 169, Est GFR (MDRD) Non-Af 139, BUN/Creatinine Ratio 30.9 H, Glu cose 119 H, Calcium 8.2 L Micro: Microbiology 05/26/22 07:44 Mucosa - Nasopharyngeal Respiratory Panel (PCR) - Final 05/25/22 21:15 Urine Catheter - Catheter Legionella Antigen - Final 05/25/22 21:15 Urine Catheter - Catheter Streptococcus pneumoniae Antigen (M - Final 05/25/22 19:20 Nasal Secretion SARS-CoV-2 Antigen (Rapid) - Final Physical Exam Const alert, oriented x3 and no apparent distress HEENT head/scalp atraumatic and moist oral mucous membranes Eyes conjunctivae normal and no scleral icterus Neck no lymphadenopathy and supple Resp normal respiratory effort Effort and Inspection: able to speak in complete sentences and symmetric chest movement Auscultation: crackles bilateral base and wheezes expiratory wheezes, anterior, posterior and throughout Cardio regular rate, regular rhythm, S1 normal heart sound and S2 normal heart sound GI normal to inspection, nondistended, normoactive bowel sounds, soft to palpation and non-tender Extremity normal to inspection, full ROM and no clubbing, cyanosis or edema Neuro oriented x3, moves all extremities, no focal motor deficits and no sensory deficits noted Sensorium / Orientation: awake and alert Psych affect normal Assessment & Plan Assessment/Plan (1) Bilateral pneumonia: PLAN: Plan 1. Bilateral pneumonia -Continue ceftriaxone and azithromycin -Continue breathing treatments -Patient currently on 4 L nasal cannula continue to wean as tolerated, patient needed 6 L when ambulating yesterday. -Legionella and strep pneumoniae urine negative, respiratory panel pending 2. Generalized weakness -PT and OT following 3. Vertigo and presyncope -Brain CT negative -Meclizine ordered as needed for vertigo -Patient has positive orthostatic vital signs 4. Hypokalemia -Potassium 3.9 -BMP daily 5. CAD -Continue aspirin and Plavix 6. Presence of ICD -Implanted 10/31/2017 7. Hypertension -Continue metoprolol -Vital signs per protocol, currently stable DVT prophylaxis-subcu Lovenox This patient was seen by HI Morales under the supervision of Dr. Linder. Documented by User: Dr. Sunny Linder MD 05/29/22 16:46 Subjective Subjective Patient seen and examined. Patient lying in bed no distress noted. Patient continues to need 4 L nasal cannula at rest and up to 6 L nasal cannula oxygen with exertion. Follow-up for acute hypoxic respiratory failure due to bilateral pneumonia with history of coronary artery disease, chronic heart failure status post AICD. P atient not on home oxygen Objective Data Lab / Micro Data Result Diagrams: 05/29/22 05:10 05/29/22 05:10 Physical Exam Narrative Physical exam General: Alert, Oriented x3, Cooperative HEENT: Atraumatic, PERRLA, EOMI, Normocephalic Oral: No Gingival or Mucosal Lesions/ Ulcerations Neck: Supple, No JVD, Negative Carotid Bruits Lungs: Air entry diminished in bilateral lung bases. No crepitation/rhonchi, on 6 L of oxygen Cardiovascular: Regular rate, Regular Rhythm, Normal S1, Normal S2, No murmurs, left subclavicular AICD Abdomen: Bowel Sounds Present, Soft, Non Tender, Non-Distended : No renal angle tenderness. No suprapubic tenderness. Extremities: No edema, Capillary Refill Less than 3 Seconds Skin: No rashes, No breakdown Musculoskeletal: No Tenderness to Palpation of Joints or Extremities Neurological: Cranial nerves II-XII grossly intact, DTR 2+/4 and Symmetrical, Neuro grossly intact Psych/Mental Status: Normal Affect, Appropriate. Assessment & Plan Assessment/Plan (1) Bilateral pneumonia: PLAN: Plan 1. bilateral pneumonia -Continue ceftriaxone and azithromycin -Continue breathing treatments -Patient currently on 4 L nasal cannula continue to wean as tolerated, patient n eeded 6 L when ambulating yesterday. -Legionella and strep pneumoniae urine negative, respiratory panel pending 2. Generalized weakness -PT and OT following 3. Vertigo and presyncope -Brain CT negative -Meclizine ordered as needed for vertigo -Patient has positive orthostatic vital signs 4. Hypokalemia -Potassium 3.9 -BMP daily 5. CAD -Continue aspirin and Plavix 6. Presence of ICD -Implanted 10/31/2017 7. Hypertension -Continue metoprolol -Vital signs per protocol, currently stable DVT prophylaxis-subcu Lovenox This patient was seen by MAHAMED MoralesC under the supervision of Dr. Linder. This patient was seen in conjunction with NICHOLE Pickard. I have independently interviewed and examined the patient and reviewed pertinent history, examination findings, laboratory and plan of management. I have reviewed the note and agree with the documented findings with the few additional points. In brief, patient is 67-year-old male with history of coronary artery disease, CHF status post AICD in October 2017 admitted with shortness of breath. Patient still short of breath, denies chest tightness pressure or pain. On [address] chest individually reviewed and shows bilateral peripheral infiltrates worse in right lower lung lobe. Echo shows EF 35% stage I diastolic dysfunction. Initially, patient was started on IV ceftriaxone and Zithromax but patient started having expected resolution of hypoxia therefore started on broad-spectrum antibiotic, Zosyn. Patient has history of heart failure and will order opacities and therefore empirically started on Lasix and repeat chest x- ray tomorrow AM. Patient had vertigo and near syncope and positive orthostatic signs. CT head negative. Rest of the comorbidities as mentioned above I have discussed my assessment with NICHOLE Pickard and orders have been reviewed. Total time of the shared visit including total time spent in counseling or coordination of care, (more than 50% of the total time, spent in obtaining medical information from nurses and other ancillary care providers,explaining to the patient about labs, imaging, diagnosis and management), review of labs and imaging is 40 minutes. I spent 25 minutes and NICHOLE Elizabeth spent 15 minutes Clinical Impression(s) from Imaging Studies Chest X-Ray 05/25/22 19:32 IMPRESSION: There is bilateral infiltrate. Electronically Signed: Neo Martin MD at 19:55 EDT , Brain CT 05/25/22 20:20 IMPRESSION: There are no acute intracranial findings. Electronically Signed: Neo Martin MD at 20:38 EDT , Chest CT 05/25/22 20:20 IMPRESSION: Diffuse irregular infiltrates throughout both lung jacob. This is worse in the right lower lobe. Consider atypical pneumonia. Echocardiogram 05/25/22 23:38 Interpretation Summary Mildly dilated left ventricle. The estimated ejection fraction is 35 %. Stage 1 diastolic dysfunction. The left atrium is mildly enlarged. Charges/Coding Visit Charges Inpatient E&M: 99052 Subs Hosp L2
[2022-05-29] MEDS: Furosemide 40 MG/4 ML Vial IV (14:21)
[2022-05-29] MEDS: 0.9% Saline Lock 10 ML Syringe IV ×2 (14:22→17:13)
[2022-05-29] MEDS: Acetaminophen 325 MG Tablet 650 MG PO (21:25)
[2022-05-30] VITALS (11 sets, daily range): BP systolic 82–138; BP diastolic 53–69; PULSE 63–71; RESP 16–20; TEMP 36.5–37; O2SAT 91–94
[2022-05-30 04:14] LABS: Absolute Lymphocyte Count 1.27 X10^3/uL (0.83-4.51); Absolute Neutrophil Count 9.5 X10^3/uL (2.0-7.7); Basophil# 0.04 X10^3/uL; Basophil% 0.3 % (0-1); Eosinophils% 9.9 % (0-5); Hematocrit 41.8 % (40-54); Hemoglobin 14.8 g/dL (13.0-16.5); Lymphocyte # 1.27 X10^3/ul (0.83-4.51); Lymphocyte % 9.7 % (19-41); Mean Corp Hgb Conc 35.4 g/dL (32-36); Mean Corpuscular Hgb 34.5 pg (27.0-32.0); Mean Corpuscular Volume 97.4 fL (80-94); Mean Platelet Vol. 10.3 fl (6.2-12.0); Monocyte# 0.91 X10^3/uL; Monocyte% 6.9 % (0-10); NRBC Flagged by Analyzer 0 % (0-5); Neutrophil % 72.4 % (47-70); Platelet Count 309 K/mm3 (150-450); RBC Distribution Width CV 13.9 % (11.6-14.6); RBC Distribution Width SD 49.9 fl (35.1-43.9); Red Blood Count 4.29 M/mm3 (4.6-6.2); White Blood Count 13.1 K/mm3 (4.4-11.0)
[2022-05-30 04:41] LABS: ALB/GLOB Ratio 0.5 RATIO (0.9-2.4); AST(SGOT) 141 U/L (15-37); Alanine Aminotransfer ALT/SGPT 166 U/L (16-61); Albumin, Serum 1.9 g/dL (3.2-5.0); Alkaline Phosphatase 100 U/L (45-117); Anion Gap 5 (5-15); BUN 17 mg/dL (7-18); BUN/Creat Ratio 26.9 RATIO (10-20); Calcium,Total 8.1 mg/dL (8.5-10.1); Chloride 105 mmol/L (98-107); Creatinine, Serum 0.63 mg/dL (0.70-1.30); EST Glomerular Filtration Rate 135 mL/min (>60); Est Glom Filt Rate - Afr Amer 163 mL/min (>60); Estimated Creatinine Clearance 84.48 ml/min; Globulin 3.6 g/dL (2.2-4.2); Glucose 113 mg/dL (74-106); Potassium 3.8 mmol/L (3.5-5.1); Protein, Total 5.5 g/dL (6.4-8.2); Sodium Level 137 mmol/L (136-145)
--- NOTE | 2022-05-30 05:55 | RAD_ITS ---
STUDY: X-RAY CHEST REASON FOR EXAM: Male, 67 years old. Severe hypoxia. Pulm edema? TECHNIQUE: Single AP portable view of the chest. COMPARISON: Comparison is made with prior study dated 05/25/2022. FINDINGS: EKG electrodes are seen. Persistent infiltration in the right hemithorax. This is essentially unchanged. Patchy infiltrate in the left midlung. There has been some improvement. There is no demonstrated pleural abnormality. A left-sided unipolar pacemaker is seen. Normal mediastinum and mady. Normal visualized pulmonary arteries. Normal visualized aortic arch and descending thoracic aorta. Normal visualized thoracic spine. Normal visualized ribs, clavicles, and shoulders. There is no demonstrated abnormality of the visualized soft tissue structures of the upper abdomen. RAD/Chest 1 View (Portable) IMPRESSION: Persistent infiltrate in the right hemithorax. This is unchanged. Improved aeration of the left lung with residual left midlung infiltrate. Electronically Signed: Ozzy Brandon MD at 10:09 EDT ,
[2022-05-30] MEDS: Ondansetron 4 MG/2 ML Vial IV (09:52)
[2022-05-30] MEDS: Furosemide 40 MG/4 ML Vial IV (09:52)
[2022-05-30] MEDS: Enoxaparin 40 MG/0.4 ML Syringe SC (09:53)
[2022-05-30] MEDS: 0.9% Saline Lock 10 ML Syringe IV ×3 (09:53→15:41)
[2022-05-30] MEDS: Amiodarone 200 MG Tablet PO ×2 (09:59→17:02)
[2022-05-30] MEDS: Metoprolol(XL)Succ 25 MG Tablet 12.5 MG PO (09:59)
[2022-05-30] MEDS: Aspirin E.C. 81 MG Tablet PO (09:59)
[2022-05-30] MEDS: Clopidogrel Bisulfate 75 MG Tablet PO (09:59)
[2022-05-30] MEDS: guaiFENesin 1,200 MG Tablet 1200 MG PO ×2 (09:59→21:29)
[2022-05-30] MEDS: PARoxetine 10 MG Tablet 30 MG PO (10:00)
--- NOTE | 2022-05-30 10:17 | CASEMGMT ---
Social Work SW met with pt to discuss discharge plans. Pt stated he feels he still has a long time before he will discharge and doesn't feel up to making any decisions now. ?SW provided a list of?SNF?providers including quality and resource use data that is consistent with the patient?s preferred geographic region, medical needs, and insurance network. The patient does not have a preferred choice at this time, however he stated he has heard of [facility] and it might be an option for him once he has some time to look over the list. SW explained to pt that SNF placements can take some time, pt voiced his understanding. He stated he would ask for a SW to return once he makes a decision. ALEXEI Charles
[2022-05-30] MEDS: Senna/Docusate Sodium 1 Tablet 2 TABLET PO (10:44)
[2022-05-30] MEDS: Meclizine 12.5 MG Tablet PO (10:44)
--- NOTE | 2022-05-30 12:02 | PN.HOSP_ITS ---
Documented by User: Rosa Marie NP, CARDIOLOGIST-C 05/30/22 12:32 Subjective Subjective Patient seen and examined. Reports he continues to feel short of breath. Feels like his chest is loosening up. Intermittent productive cough. Denies fever, chills. On 6 L nasal cannula. Objective Data Objective Data Vital Signs: Vital Signs Temp Pulse Resp BP Pulse Ox O2 Del Method O2 Flow Rate 98.6 F 66 18 138/69 H 94 Nasal Cannula 6 05/30/22 09:10 05/30/22 09:59 05/30/22 09:10 05/30/22 09:10 05/30/22 09:10 05/30/22 09:10 05/30/22 09:10 Oxygen Flow Rate (L/min) [ 7 AMBULATING with Oxygen #3] Oxygen Flow Rate (L/min) [ 5 AMBULATING with Oxygen #2] Oxygen Flow Rate (L/min) [ 4 AMBULATING with Oxygen #1] Oxygen Flow Rate (L/min) [At 4 REST with Oxygen] Oxygen Flow Rate (L/min) [At 0 REST on Room Air] Oxygen Flow Rate (L/min) 6 Oxygen Delivery Method Nasal Cannula Weight: 183 lb 12.79 oz Body Mass Index (BMI) 23.6 Intake & Output: Intake and Output for Last 24 Hours 05/28/22 05/29/22 05/30/22 23:59 23:59 23:59 Intake Total 3116.66 / 3116.66 3555 / 3555 100 / 100 Output Total 2925 / 2925 3225 / 3225 550 / 550 Balance 191.66 / 191.66 330 / 330 -450 / -450 Lab / Micro Data Result Diagrams: 05/30/22 03:53 05/30/22 03:53 Labs: Laboratory Results - last 24 hr 05/30/22 03:53: WBC 13.1 H, RBC 4.29 L, Hgb 14.8, Hct 41.8, MCV 97.4 H, MCH 34.5 H, MCHC 35.4, RDW Std Deviation 49.9 H, RDW Coeff of [place] 13.9, Plt Count 309, MPV 10.3, Immature Gran % (Auto) 0.800, Neut % (Auto) 72.4 H, Lymph % (Auto) 9.7 L, [place] % (Auto) 6.9, Eos % (Auto) 9.9 H, Baso % (Auto) 0.3, Absolute Neuts (au to) 9.5 H, Absolute Lymphs (auto) 1.27, Nucleated RBC % 0 05/30/22 03:53: Sodium 137, Potassium 3.8, Chloride 105, Carbon Dioxide 27.0, Anion Gap 5, BUN 17, Creatinine 0.63 L, Estim Creat Clear Calc 84.48, Est GFR (MDRD) Af Amer 163, Est GFR (MDRD) Non-Af 135, BUN/Creatinine Ratio 26.9 H, Glucose 113 H, Calcium 8.1 L, Total Bilirubin 0.70, AST 141 H, ALT 166 H, Alkaline Phosphatase 100, Total Protein 5.5 L, Albumin 1.9 L, Globulin 3.6, Albumin/Globulin Ratio 0.5 L Micro: Microbiology 05/26/22 07:44 Mucosa - Nasopharyngeal Respiratory Panel (PCR) - Final 05/25/22 21:15 Urine Catheter - Catheter Legionella Antigen - Final 05/25/22 21:15 Urine Catheter - Catheter Streptococcus pneumoniae Antigen (M - Final 05/25/22 19:20 Nasal Secretion SARS-CoV-2 Antigen (Rapid) - Final Radiography Diagnostic Testing: Radiology Impression Chest X-Ray 05/30/22 05:55 IMPRESSION: Persistent infiltrate in the right hemithorax. This is unchanged. Improved aeration of the left lung with residual left midlung infiltrate. Electronically Signed: Ozzy Brandon MD at 10:09 EDT , Physical Exam Const alert and oriented x3 HEENT normocephalic and moist oral mucous membranes Eyes PERRL, EOMs intact bilaterally and conjunctivae normal Neck no lymphadenopathy Resp Auscultation: crackles and wheezes Cardio regular rate, regular rhythm and no murmurs Peripheral Pulses: pulses 2+ throughout GI normal to inspection, nondistended, normoactive bowel sounds, non-tender and non-distended Extremity normal to inspection Skin no rashes or lesions noted Lesions: no lesions Rashes: no rashes Trauma: no lacerations or abrasions Neuro CN's II-XII intact bilaterally, no focal motor deficits, no sensory deficits noted and deep tendon reflexes 2+ bilaterally Psych mental status grossly normal and affect normal Assessment & Plan Assessment/Plan (1) Bilateral pneumonia: PLAN: Plan 1. Acute hypoxic respiratory failure secondary to bilateral community-acquired pneumonia-IV Zosyn. Add Vanc. Albuterol and DuoNeb aerosols. Urine for strep and Legionella negative. Continues to require 6 L nasal cannula. Pulmonary med icine consulted. Repeat CXR demonstrates persistent infiltrate right hemithorax. CT pending. Will need referral to pulmonary medicine at discharge for PFTs/outpatient follow-up given extensive smoking history. 2. Generalized weakness- PT/OT. Possible SNF. Social work following. 3. Vertigo with presyncope-brain CT negative. As needed meclizine. Echo with EF 35%, stage I diastolic dysfunction. Previous orthostatic vitals positive, will repeat. 4. Hypertension-stable, continue metoprolol. 5. Hypokalemia-resolved. 6. CAD-continue aspirin, Plavix, metoprolol. Allergy to statin. 7. Ischemic cardiomyopathy/history of paroxysmal ventricular tachycardia status post AICD-on amiodarone. 8. Depression/anxiety-paroxetine. 9. Tobacco dependence-encouraged cessation. 10. History of alcoholism-denies recent use. DVT prophylaxis-Lovenox sc This patient was seen by HI Dubose under the supervision of Dr. Linder. Time spent examining patient, reviewing data and subsequent management of care: 15 minutes Documented by User: Dr. Sunny Linder MD 05/30/22 16:39 Subjective Subjective Patient seen and examined. Reports he continues to feel short of breath. Feels like his chest is loosening up. Intermittent productive cough. Denies fever, chills. On 6 L nasal cannula. Seen and examined. Patient still has shortness of breath and dyspnea. He feels someone is standing on the chest. Discussed with the lodge sales associate. Chest CTA ordered Objective Data Lab / Micro Data Result Diagrams: 05/30/22 03:53 07/28/22 03:53 Physical Exam Narrative Physical exam General: Alert, Oriented x3, Cooperative HEENT: Atraumatic, PERRLA, EOMI, Normocephalic Oral: No Gingival or Mucosal Lesions/ Ulcerations Neck: Supple, No JVD, Negative Carotid Bruits Lungs: Air entry diminished in bilateral lung bases. Dyspnea at rest. No crepitation/rhonchi, on 6 L of oxygen Cardiovascular: Regular rate, Regular Rhythm, Normal S1, Normal S2, No murmurs, left subclavicular AICD Abdomen: Bowel Sounds Present, Soft, Non Tender, Non-Distended : No renal angle tenderness. No suprapubic tenderness. Extremities: No edema, Capillary Refill Less than 3 Seconds Skin: No rashes, No breakdown Musculoskeletal: No Tenderness to Palpation of Joints or Extremities Neurological: Cranial nerves II-XII grossly intact, DTR 2+/4 and Symmetrical, Neuro grossly intact Psych/Mental Status: Normal Affect, Appropriate. Assessment & Plan Assessment/Plan (1) Bilateral pneumonia: PLAN: Plan 1. Acute hypoxic respiratory failure secondary to bilateral community-acquired pneumonia-IV Zosyn. Add Vanc. Albuterol and DuoNeb aerosols. Urine for strep and Legionella negative. Continues to require 6 L nasal cannula. Pulmonary medicine consulted. Repeat CXR demonstrates persistent infiltrate right hemithorax. CT pending. Will need referral to pulmonary medicine at discharge for PFTs/outpatient follow-up given extensive smoking history. 2. Generalized weakness- PT/OT. Possible SNF. Social work following. 3. Vertigo with presyncope-brain CT negative. As needed meclizine. Echo with EF 35%, stage I diastolic dysfunction. Previous orthostatic vitals positive, will repeat. 4. Hypertension-stable, continue metoprolol. 5. Hypokalemia-resolved. 6. CAD-continue aspirin, Plavix, metoprolol. Allergy to statin. 7. Ischemic cardiomyopathy/history of paroxysmal ventricular tachycardia status post AICD-on amiodarone. 8. Depression/anxiety-paroxetine. 9. Tobacco dependence-encouraged cessation. 10. History of alcoholism-denies recent use. DVT prophylaxis-Lovenox sc This patient was seen by HI Dubose under the supervision of Dr. Linder. Time spent examining patient, reviewing data and subsequent management of care: 15 minutes This patient was seen in conjunction with CARDIOLOGISTRosa. I have independently interviewed and examined the patient and reviewed pertinent history, examination findings, laboratory and plan of management. I have reviewed the note and agree with the documented findings with the few additional points. In brief, patient is 67-year-old male with history of coronary artery disease, CHF status post AICD in October 2017 admitted with shortness of breath.? Patient still short of breath, dyspnea at rest. Complain of chest heaviness/pressure. On [address] of oxygen.? CT chest individually reviewed and shows bilateral peripheral infiltrates worse in right lower lung lobe.? Echo shows EF 35% stage I diastolic dysfunction.? Initially, patient was started on IV ceftriaxone and Zithromax but patient started having expected resolution of hypoxia therefore started on broad-spectrum antibiotic, Zosyn.? 05/30: [place] Can Worker consult requested and appreciated. CTA does not show PE but bilateral multiple pulmonary infiltrates. Vancomycin added. Patient has allergy with iodine therefore premedicated with Solu-Medrol and Benadryl. Agreed with diuresis Coronary artery disease with ischemic cardiomyopathy, CHF class III status post AICD: Patient on amiodarone. Empirically Lasix. BNP elevated. I still do not think patient has acute heart failure but chronic heart failure. Patient had vertigo and near syncope and positive orthostatic signs.? CT head negative. Rest of the comorbidities as mentioned above I have discussed my assessment with Rosa VARELA and orders have been reviewed. Total time of the shared visit including total time spent in counseling or coordination of care, (more than 50% of the total time, spent in obtaining medical information from nurses and other ancillary care providers,explaining to the patient about labs, imaging, diagnosis and management), discussion with immigration consultant, review of labs and imaging is? 40 minutes.? I spent 25 minutes and NICHOLE Lee spent 15 minutes Charges/Coding Visit Charges Inpatient E&M: 04034 Subs Hosp L3
[2022-05-30 12:33] LABS: Procalcitonin 0.21 ng/mL (0.00-0.09)
[2022-05-30] MEDS: DiphenhydrAMINE 50 MG/ML Syringe IV (12:37)
--- NOTE | 2022-05-30 13:00 | CT_ITS ---
STUDY: CTA CHEST REASON FOR EXAM: Male, 67 years old. Concern for PE RADIATION DOSAGE (If Supplied By Facility): CTDIvol = ( 18.13 ) mGy, DLP = ( 540.14 ) mGycm TECHNIQUE: The examination was performed with the intravenous administration of IV 100mL Isovue-370. Post-processing of the angiographic images was performed, with multiplanar reformation and 3D reconstruction. Individualized dose optimization techniques were used for this CT. COMPARISON: Comparison is made with prior CT scan of thorax dated 05/25/2022. FINDINGS: Normal enhancement of the main pulmonary artery and right and left pulmonary arteries. Normal enhancement of the bilateral peripheral pulmonary arteries. There is no demonstrated pulmonary embolism. Normal thoracic aorta and visualized great vessels. There is no demonstrated aortic dissection. A left-sided unipolar pacemaker is seen. There are calcifications of the coronary arteries. There are visualized mediastinal lymph nodes, which are within normal size limits, and with normal morphology. Normal hilar regions. Normal visualized trachea and bronchi. Mild volume loss in the right hemithorax. There is a groundglass appearance in the right upper lobe as well as in the posterior aspect of the left upper lobe. Infiltrates are seen in the peripheral aspect of the right upper lobe as well as in the right middle lobe and right lower lobe. Patchy infiltrates are also seen in the left upper and left lower lobes although to a lesser extent. Normal pleura. Normal chest wall structures. There are degenerative changes of thoracic spine. There is a 2.7 cm cyst in the upper pole of the right kidney. CT/CTA Chest W/WO Contrast IMPRESSION: No evidence of pulmonary emboli. Bilateral pulmonary infiltrates worse in the right hemithorax. Electronically Signed: Ozzy Brandon MD at 14:29 EDT ,
--- NOTE | 2022-05-30 13:05 | EX.PCM.CONCC ---
Assessment & Plan Assessment/Plan (1) Acute hypoxemic respiratory failure: PLAN: Plan RECOMMENDATIONS: 1. Wean oxygen as tolerated for saturations greater than 90%. 2. Add vancomycin to current antibiotic treatment regimen. 3. Recheck MRSA screen. 4. Obtain and send sputum for culture. 5. Start scheduled bronchodilators. 6. Continue diuresis as tolerated by hemodynamics and renal function. 7. CTA chest to evaluate for pulmonary embolism. IMPRESSIONS: 1. Multifocal pneumonia with hypoxemia The patient's chest radiographs demonstrate bilateral pneumonia, right greater than left. He has been on Zosyn now during his hospitalization. However, in 2019, the patient screened positive for MRSA. Therefore, I would recommend that vancomycin be added to his antibiotic treatment regimen as well, in light of his worsening oxygenation status. In addition, CTA chest is currently ordered to evaluate for pulmonary embolism. The patient did have mild obstructive lung disease noted on prior PFT several years ago. Therefore, I am going to place him on scheduled bronchodilators. 2. History of coronary artery disease/ischemic cardiomyopathy/depression/history of tobacco and alcohol dependency in remission Complicates care, management, recovery and prognosis. Continue home medications as indicated. This note was generated with [employer] dictation software. It may contain incorrect words, spelling, and punctuation that were not noted in checking the note before signing. HPI Consult Data Date of Consult: 05/30/22 HPI Narrative Reason for Consultation: Acute hypoxemic respiratory failure HPI Narrative: The patient is a 67-year-old male, with a history as outlined below, who presented to the emergency department via EMS on May 25 with vertigo and dyspnea. The patient has a prior tobacco and alcohol abuse history, currently in remission. He did complete pulmonary function studies in 2019 which revealed mild obstructive lung disease. The patient does not utilize supplemental oxygen at his baseline. He does have a cough that has only been mildly productive of sputum. On presentation to the emergency department, the patient was noted to be afebrile and hemodynamically stable. Initial laboratory evaluation revealed an elevated white blood cell count of 14,000. Chemistry profile was unrevealing. Lactate was within normal limits. Head CT was unremarkable. Chest CT demonstrated multifocal bilateral infiltrates, right greater than left. The patient was initially placed on ceftriaxone and azithromycin. He was admitted to the progressive care unit for further management. Over the course of his hospitalization, the patient has developed worsening hypoxemia and increasing need for supplemental oxygen. Of note, the patient did screen positive for MRSA in 2019. He has not been on any form of vancomycin during his hospitalization today. He is currently on Zosyn as monotherapy. Surface echocardiogram demonstrated a mildly dilated LV with an ejection fraction of 35% and stage I diastolic dysfunction. [facility] Medical History Abnormal LFTs Acute blood loss anemia Alcohol intoxication Alcoholic Anxiety Atherosclerotic heart disease of [place] coronary artery without angina pectoris Benzodiazepine abuse in remission C. difficile colitis Cellulitis and abscess of upper extremity Cerebellar atrophy Chronic obstructive pulmonary disease Debility Declining functional status Dehydration Depression Essential hypertension Femoral neck fracture Frequent falls History of alcoholism Hyperkalemia Hyperlipidemia Hypomagnesemia Hyponatremia Incontinence of feces Incontinence of urine Ischemic cardiomyopathy Macrocytosis Physical debility Premature heartbeats Pulmonary nodule Pulmonary nodule Stage 1 mild COPD by GOLD classification Suicidal thoughts Syndrome of inappropriate ADH (SIADH) secretion Tobacco abuse Tobacco user Unintentional weight loss Urinary tract infection Ventricular tachycardia Ventricular tachycardia Home Medications aspirin 81 mg tablet,delayed release 81 mg PO DAILY Heart Health 04/17/21 [History Last Taken Unknown] amiodarone 200 mg tablet 200 mg PO BID HEART RHYTHM 05/25/22 [History Last Taken Unknown] clopidogrel 75 mg tablet 75 mg PO DAILY 05/25/22 [History Last Taken Unknown] metoprolol succinate 25 mg tablet,extended release 24 hr 12.5 mg PO DAILY BP 05/25/22 [History Last Taken Unknown] paroxetine HCl 20 mg tablet 30 mg PO DAILY 05/25/22 [History Last Taken Unknown] Allergy/AdvReac Type Severity Reaction Status Date / Time Iodine and Iodide Containing Allergy Severe Rash Verified 05/25/22 18:54 Produc ezetimibe [From Zetia] AdvReac Severe Myalgias Verified 05/25/22 18:54 Ngmtxsp-BSC-JzW Reductase AdvReac Severe Elevated Verified 05/25/22 18:54 Inhibitor Liver [Kexotrq-Hvx-Oqx Reductase Enzymes Inhibitor] duloxetine [From Cymbalta] AdvReac Orthostasis Verified 05/25/22 18:54 /hyponatrem ia Family History Grandmother Myocardial infarction Grandfather Myocardial infarction Surgical History History of coronary artery stent placement (02/17/19) History of implantable cardiac defibrillator (ICD) (10/31/17) History of left heart catheterization (LHC) (01/21/19) Hx of knee surgery Hx of total hip arthroplasty Social History household members: family and other details: currently living with his father and his brother Donnell. housing: house number of children: 1 current occupational status: unemployed Smoking Status: Current every day smoker tobacco type: cigarettes how long ago did patient quit smokin11/2017 alcohol intake: current alcohol intake frequency: 3 or more drinks per day Alcohol type: wine substance use type: other details: Has abused RX Ativan in the past well-balanced diet: other details: says that he gets meals on wheels and they pile upin the refrigerator caffeine: No during the past year weight has: other details: decreased 20 lbs since November what type of physical activity do you participate in: none duration: < 15 minutes/day seatbelt use: always do you feel safe at home: Yes ROS Constitutional Constitutional: Denies chills, fatigue or fever(s) Eyes Eyes: Denies blurry vision or change in vision ENT HEENT: Reports dizziness; Denies headache(s) Cardiovascular Cardiovascular: Reports dizziness and dyspnea; Denies chest pain Respiratory/Chest Respiratory/Chest: Reports cough and dyspnea Gastrointestinal Gastrointestinal: Denies abdominal pain, diarrhea, nausea or vomiting Genitourinary Genitourinary: Denies difficulty urinating Musculoskeletal Musculoskeletal: Denies arthralgias, back pain or joint pain Integumentary Integumentary: Denies lesions, rash or skin ulcer Neurologic Neurologic: Denies abnormal gait Psychiatric Psychiatric: Denies anxiety or depression Endocrine Endocrinology: Denies fatigue Hematologic/Lymphatic Hematologic/Lymphatic: Denies easy bleeding or easy bruising Physical Exam Const alert, oriented x3 and no apparent distress General Appearance: cooperative HEENT normocephalic and head/scalp atraumatic Eyes PERRL, EOMs intact bilaterally and conjunctivae normal Neck supple General: trachea midline Chest inspection of chest normal Resp normal respiratory effort Auscultation: rales; Negative for rhonchi or wheezes Cardio regular rate and regular rhythm GI normal to inspection, nondistended, normoactive bowel sounds Extremity no clubbing, cyanosis or edema Skin no rashes or lesions noted Neuro CN's II-XII intact bilaterally, moves all extremities and no focal motor deficits Psych Mood & Affect: flat affect Lab / Micro Data Result Diagrams: 05/30/22 03:53 05/30/22 03:53 Labs: Laboratory Results - last 24 hr 05/30/22 03:53: WBC 13.1 H, RBC 4.29 L, Hgb 14.8, Hct 41.8, MCV 97.4 H, MCH 34.5 H, MCHC 35.4, RDW Std Deviation 49.9 H, RDW Coeff of [place] 13.9, Plt Count 309, MPV 10.3, Immature Gran % (Auto) 0.800, Neut % (Auto) 72.4 H, Lymph % (Auto) 9.7 L, [place] % (Auto) 6.9, Eos % (Auto) 9.9 H, Baso % (Auto) 0.3, Absolute Neuts (auto) 9.5 H, Absolute Lymphs (auto) 1.27, Nucleated RBC % 0 05/30/22 03:53: Sodium 137, Potassium 3.8, Chloride 105, Carbon Dioxide 27.0, Anion Gap 5, BUN 17, Creatinine 0.63 L, Estim Creat Clear Calc 84.48, Est GFR (MDRD) Af Amer 163, Est GFR (MDRD) Non-Af 135, BUN/Creatinine Ratio 26.9 H, Glucose 113 H, Calcium 8.1 L, Total Bilirubin 0.70, AST 141 H, ALT 166 H, Alkaline Phosphatase 100, Total Protein 5.5 L, Albumin 1.9 L, Globulin 3.6, Albumin/Globulin Ratio 0.5 L 05/30/22 03:53: B-Natriuretic Peptide 172.0 H 05/30/22 03:53: Procalcitonin 0.21 H Radiology Impression Chest X-Ray 05/30/22 05:55 IMPRESSION: Persistent infiltrate in the right hemithorax. This is unchanged. Improved aeration of the left lung with residual left midlung infiltrate. Electronically Signed: Ozzy Brandon MD at 10:09 EDT , Charges/Coding Visit Charges Inpatient E&M: 61672 Init Hosp L3
[2022-05-30 13:08] LABS: D-Dimer Quantitative (DVT/PE) 0.57 FEU/ug/m (0.27-0.49)
--- NOTE | 2022-05-30 15:06 | PCM.RX.CS ---
Consult Pharmacy has been consulted to manage selected antiobiotic: Vancomycin Suspected Infection: Pneumonia Prior Doses of Antibiotics Received/Current Regimen: 2000MG GIVEN 05/30/22 @ 1408 Labs: Sodium 137 mmol/L (136-145) 05/30/22 03:53 Potassium 3.8 mmol/L (3.5-5.1) 05/30/22 03:53 Chloride 105 mmol/L (98-107) 05/30/22 03:53 Carbon Dioxide 27.0 mmol/L (21.0-32.0) 05/30/22 03:53 Anion Gap 5 (5-15) 05/30/22 03:53 BUN 17 mg/dL (7-18) 05/30/22 03:53 Creatinine 0.63 mg/dL (0.70-1.30) L 05/30/22 03:53 Est GFR (MDRD) Af Amer 163 mL/min (>60) 05/30/22 03:53 Est GFR (MDRD) Non-Af 135 mL/min (>60) 05/30/22 03:53 BUN/Creatinine Ratio 26.9 RATIO (10-20) H 05/30/22 03:53 Glucose 113 mg/dL (74-106) H 05/30/22 03:53 Microbiology: Microbiology 05/26/22 07:44 Mucosa - Nasopharyngeal Respiratory Panel (PCR) - Final 05/25/22 21:15 Urine Catheter - Catheter Legionella Antigen - Final 05/25/22 21:15 Urine Catheter - Catheter Streptococcus pneumoniae Antigen (M - Final 05/25/22 19:20 Nasal Secretion SARS-CoV-2 Antigen (Rapid) - Final Weight used for dosin kg Estimated Creatinine Clearance: 85 Goal Trough: 15-20 mcg/mL Pharmacy Plan for Drug Dosing: START ON 05/31/22 @ 0200 1500mg of Vancomycin every 12 hours Pharmacy Service will continue to monitor and adjust dosing as required. Follow-Up Labs: Trough Vancomycin Labs to be done on [date and time ordered]: 06/01/22 @ 1330
[2022-05-30 15:45] LABS: M R Staph aureus DNA By PCR Negative (Negative); Probe Check PASS; Specimen Processing Control PASS
[2022-05-30] MEDS: Ipratropium/Albuterol Sulfate 3 ML AMPUL.NEB INHALATION (18:59)
[2022-05-31] VITALS (19 sets, daily range): BP systolic 96–131; BP diastolic 52–72; PULSE 60–110; RESP 16–22; TEMP 36.3–37.2; O2SAT 85–96
[2022-05-31] MEDS: Acetaminophen 325 MG Tablet 650 MG PO (05:14)
[2022-05-31 06:12] LABS: Absolute Lymphocyte Count 1.19 X10^3/uL (0.83-4.51); Basophil# 0.06 X10^3/uL; Basophil% 0.4 % (0-1); Eosinophil# 0.14 X10^3/uL; Eosinophils% 0.9 % (0-5); Hematocrit 42.1 % (40-54); Hemoglobin 14.7 g/dL (13.0-16.5); Lymphocyte # 1.19 X10^3/ul (0.83-4.51); Lymphocyte % 7.6 % (19-41); Mean Corp Hgb Conc 34.9 g/dL (32-36); Mean Corpuscular Hgb 33.9 pg (27.0-32.0); Mean Platelet Vol. 10.4 fl (6.2-12.0); Monocyte# 1.19 X10^3/uL; Monocyte% 7.6 % (0-10); NRBC Flagged by Analyzer 0 % (0-5); Neutrophil # 12.99 X10^3/uL (2.7-7.7); Neutrophil % 82.7 % (47-70); Platelet Count 377 K/mm3 (150-450); RBC Distribution Width CV 13.6 % (11.6-14.6); RBC Distribution Width SD 48.8 fl (35.1-43.9); Red Blood Count 4.34 M/mm3 (4.6-6.2); White Blood Count 15.7 K/mm3 (4.4-11.0)
--- NOTE | 2022-05-31 06:36 | PN.CC_ITS ---
Assessment & Plan Assessment/Plan (1) Acute hypoxemic respiratory failure: PLAN: Plan RECOMMENDATIONS: 1. Wean oxygen as tolerated for saturations greater than 90%. 2. Attempt a trial of BiPAP therapy. If unsuccessful, heated high flow oxygen can be used instead. 3. Continue broad-spectrum antimicrobials for now. 4. Continue scheduled bronchodilators. 5. Add IV Solu-Medrol 40 mg every 6 hours. 6. Continue diuresis as tolerated by hemodynamics and renal function. IMPRESSIONS: 1. Multifocal pneumonia with hypoxemia The patient's chest radiographs demonstrate bilateral pneumonia, right greater than left. He has been on Zosyn now during his hospitalization. However, in 2019, the patient screened positive for MRSA. Therefore, I would recommend that vancomycin be continued as well. CTA chest showed no evidence for pulmonary embolism. The patient did have mild obstructive lung disease noted on PFTs several years ago. Accordingly, the patient is going to be continued on scheduled bronchodilators. He is also going to be started on IV steroids today. Lastly, continue scheduled diuretics as tolerated by hemodynamics and renal function. 2. History of coronary artery disease/ischemic cardiomyo hillary/depression/history of tobacco and alcohol dependency in remission Complicates care, management, recovery and prognosis. Continue home medications as indicated. This note was generated with [employer] dictation software. It may contain incorrect words, spelling, and punctuation that were not noted in checking the note before signing. Subjective Subjective The patient was seen and examined at the bedside this morning. Events from the last 24 hours have been reviewed. The patient is currently afebrile, h emodynamically stable and maintaining appropriate oxygen saturations on 6 L/min via nasal cannula. The patient is documented to be overall net +3.7 L for the hospitalization. Lab work is stable this morning. Unfortunately, the patient continues to take off his oxygen periodically, resulting in worsening hypoxemia. Objective Data Objective Data The patient's most recent lab work, culture data and imaging studies have all been personally reviewed. Surface echocardiogram demonstrated stage I diastolic dysfunction with an ejection fraction of 35%. Respiratory viral panel was negative. Strep and urine Legionella antigens were negative. Rapid COVID testing was negative. Vital Signs: Vital Signs Temp Pulse Resp BP Pulse Ox O2 Del Method O2 Flow Rate 97.6 F L 60 16 131/67 H 92 Nasal Cannula 6 05/31/22 05:12 05/31/22 05:12 05/31/22 05:12 05/31/22 05:12 05/31/22 05:12 05/31/22 05:12 05/31/22 05:12 Oxygen Flow Rate (L/min) [ 7 AMBULATING with Oxygen #3] Oxygen Flow Rate (L/min) [ 5 AMBULATING with Oxygen #2] Oxygen Flow Rate (L/min) [ 4 AMBULATING with Oxygen #1] Oxygen Flow Rate (L/min) [At 4 REST with Oxygen] Oxygen Flow Rate (L/min) [At 0 REST on Room Air] Oxygen Flow Rate (L/min) 6 Oxygen Delivery Method Nasal Cannula Weight: 183 lb 12.79 oz Body Mass Index (BMI) 23.6 Intake & Output: Intake and Output for Last 24 Hours 05/29/22 05/30/22 05/31/22 23:59 23:59 23:59 Intake Total 3555 / 3555 2260 / 2260 820 / 820 Output Total 3225 / 3225 3900 / 3900 700 / 700 Balance 330 / 330 -1640 / -1640 120 / 120 Lab / Micro Data Attestation: I reviewed the patient's lab results. Result Diagrams: 05/31/22 05:25 05/31/22 05:25 Labs: Laboratory Results - last 24 hr 05/30/22 03:53: B-Natriuretic Peptide 172.0 H 05/30/22 03:53: Procalcitonin 0.21 H 05/30/22 12:40: D-Dimer Quant (PE/DVT) 0.57 H* 05/30/22 13:35: MRSA (PCR) Negative 05/31/22 05:25: WBC 15.7 H, RBC 4.34 L, Hgb 14.7, Hct 42.1, MCV 97.0 H, MCH 33.9 H, MCHC 34.9, RDW Std Deviation 48.8 H, RDW Coeff of [place] 13.6, Plt Count 377, MPV 10.4, Immature Gran % (Auto) 0.800, Neut % (Auto) 82.7 H, Lymph % (Auto) 7.6 L, [place] % (Auto) 7.6, Eos % (Auto) 0.9, Baso % (Auto) 0.4, Absolute Neuts (auto) 13.0 H, Absolute Lymphs (auto) 1.19, Nucleated RBC % 0 Micro: Microbiology 05/26/22 07:44 Mucosa - Nasopharyngeal Respiratory Panel (PCR) - Final 05/25/22 21:15 Urine Catheter - Catheter Legionella Antigen - Final 05/25/22 21:15 Urine Catheter - Catheter Streptococcus pneumoniae Antigen (M - Final 05/25/22 19:20 Nasal Secretion SARS-CoV-2 Antigen (Rapid) - Final Radiography Diagnostic Testing: Radiology Impression Chest X-Ray 05/30/22 05:55 IMPRESSION: Persistent infiltrate in the right hemithorax. This is unchanged. Improved aeration of the left lung with residual left midlung infiltrate. Electronically Signed: Ozzy Brandon MD at 10:09 EDT , Chest CTA 05/30/22 13:00 IMPRESSION: No evidence of pulmonary emboli. Bilateral pulmonary infiltrates worse in the right hemithorax. Electronically Signed: Ozzy Brandon MD at 14:29 EDT , Physical Exam Const alert, oriented x3 and no apparent distress General Appearance: cooperative HEENT normocephalic and head/scalp atraumatic Eyes PERRL, EOMs intact bilaterally and conjunctivae normal Neck supple General: trachea midline Chest inspection of chest normal Resp normal respiratory effort Auscultation: wheezes and diminished lung sounds; Negative for rales or rhonchi Cardio regular rate and regular rhythm GI normal to inspection, nondistended, normoactive bowel sounds Extremity no clubbing, cyanosis or edema Skin no rashes or lesions noted Neuro CN's II-XII intact bilaterally, moves all extremities and no focal motor deficits Psych Mood & Affect: flat affect Charges/Coding Visit Charges Inpatient E&M: 28846 Subs Hosp L3
[2022-05-31 06:37] LABS: ALB/GLOB Ratio 0.6 RATIO (0.9-2.4); AST(SGOT) 152 U/L (15-37); Alanine Aminotransfer ALT/SGPT 188 U/L (16-61); Albumin, Serum 2.1 g/dL (3.2-5.0); Alkaline Phosphatase 107 U/L (45-117); Anion Gap 5 (5-15); BUN 18 mg/dL (7-18); BUN/Creat Ratio 28.2 RATIO (10-20); Calcium,Total 8.2 mg/dL (8.5-10.1); Chloride 104 mmol/L (98-107); Creatinine, Serum 0.64 mg/dL (0.70-1.30); EST Glomerular Filtration Rate 133 mL/min (>60); Est Glom Filt Rate - Afr Amer 161 mL/min (>60); Estimated Creatinine Clearance 84.48 ml/min; Globulin 3.8 g/dL (2.2-4.2); Glucose 115 mg/dL (74-106); Protein, Total 5.9 g/dL (6.4-8.2); Sodium Level 135 mmol/L (136-145)
[2022-05-31] MEDS: guaiFENesin 1,200 MG Tablet 1200 MG PO ×2 (09:47→21:45)
[2022-05-31] MEDS: Aspirin E.C. 81 MG Tablet PO (09:47)
[2022-05-31] MEDS: Amiodarone 200 MG Tablet PO ×2 (09:47→16:05)
[2022-05-31] MEDS: Clopidogrel Bisulfate 75 MG Tablet PO (09:47)
[2022-05-31] MEDS: PARoxetine 10 MG Tablet 30 MG PO (09:47)
[2022-05-31] MEDS: Metoprolol(XL)Succ 25 MG Tablet 12.5 MG PO (09:47)
[2022-05-31] MEDS: Senna/Docusate Sodium 1 Tablet 2 TABLET PO (09:48)
[2022-05-31] MEDS: Enoxaparin 40 MG/0.4 ML Syringe SC (09:48)
[2022-05-31] MEDS: Furosemide 40 MG/4 ML Vial IV (09:53)
[2022-05-31] MEDS: 0.9% Saline Lock 10 ML Syringe IV ×3 (09:53→17:24)
[2022-05-31] MEDS: Ipratropium/Albuterol Sulfate 3 ML AMPUL.NEB INHALATION ×2 (10:40→14:09)
--- NOTE | 2022-05-31 10:57 | PCM.PN.HOSP ---
Documented by User: Rosa Marie NP, OUTDOOR EDUCATION TEACHER-C 05/31/22 11:14 Subjective Subjective Patient seen and examined. Subjectively feels improved with rest however requiring increased supplemental oxygen. Refusing BiPAP earlier this morning, now amendable. Denies fever, chills. Objective Data Objective Data Vital Signs: Vital Signs Temp Pulse Resp BP Pulse Ox O2 Del Method O2 Flow Rate 97.3 F L 68 16 125/67 H 93 Nasal Cannula 9 05/31/22 09:45 05/31/22 09:47 05/31/22 09:45 05/31/22 09:45 05/31/22 09:45 05/31/22 09:45 05/31/22 09:45 Oxygen Flow Rate (L/min) [ 7 AMBULATING with Oxygen #3] Oxygen Flow Rate (L/min) [ 5 AMBULATING with Oxygen #2] Oxygen Flow Rate (L/min) [ 4 AMBULATING with Oxygen #1] Oxygen Flow Rate (L/min) [At 4 REST with Oxygen] Oxygen Flow Rate (L/min) [At 0 REST on Room Air] Oxygen Flow Rate (L/min) 9 Oxygen Delivery Method Nasal Cannula Weight: 183 lb 12.79 oz Body Mass Index (BMI) 23.6 Intake & Output: Intake and Output for Last 24 Hours 05/29/22 05/30/22 05/31/22 23:59 23:59 23:59 Intake Total 3555 / 3555 2260 / 2260 870 / 870 Output Total 3225 / 3225 3900 / 3900 700 / 700 Balance 330 / 330 -1640 / -1640 170 / 170 Lab / Micro Data Result Diagrams: 05/31/22 05:25 05/31/22 05:25 Labs: Laboratory Results - last 24 hr 05/30/22 03:53: B-Natriuretic Peptide 172.0 H 05/30/22 03:53: Procalcitonin 0.21 H 05/30/22 12:40: D-Dimer Quant (PE/DVT) 0.57 H* 05/30/22 13:35: MRSA (PCR) Negative 05/31/22 05:25: WBC 15.7 H, RBC 4.34 L, Hgb 14.7, Hct 42.1, MCV 97.0 H, MCH 33.9 H, MCHC 34.9, RDW Std Deviation 48.8 H, RDW Coeff of [place] 13.6, Plt Count 377, MPV 10.4, Immature Gran % (Auto) 0.800, Neut % (Auto) 82.7 H, Lymph % (Auto) 7.6 L, [place] % (Auto) 7.6, Eos % (Auto) 0.9, Baso % (Auto) 0.4, Absolute Neuts (auto) 13.0 H, Absolute Lymphs (auto) 1.19, Nucleated RBC % 0 05/31/22 05:25: Sodium 135 L, Potassium 4.0, Chloride 104, Carbon Dioxide 26.0, Anion Gap 5, BUN 18, Creatinine 0.64 L, Estim Creat Clear Calc 84.48, Est GFR (MDRD) Af Amer 161, Est GFR (MDRD) Non-Af 133, BUN/Creatinine Ratio 28.2 H, Glucose 115 H, Calcium 8.2 L, Total Bilirubin 0.40, AST 152 H, ALT 188 H, Alkaline Phosphatase 107, Total Protein 5.9 L, Albumin 2.1 L, Globulin 3.8, Albumin/Globulin Ratio 0.6 L Micro: Microbiology 05/26/22 07:44 Mucosa - Nasopharyngeal Respiratory Panel (PCR) - Final 05/25/22 21:15 Urine Catheter - Catheter Legionella Antigen - Final 05/25/22 21:15 Urine Catheter - Catheter Streptococcus pneumoniae Antigen (M - Final 05/25/22 19:20 Nasal Secretion SARS-CoV-2 Antigen (Rapid) - Final Radiography Diagnostic Testing: Radiology Impression Chest CTA 05/30/22 13:00 IMPRESSION: No evidence of pulmonary emboli. Bilateral pulmonary infiltrates worse in the right hemithorax. Electronically Signed: Ozzy Brandon MD at 14:29 EDT , Physical Exam Const alert and oriented x3 HEENT normocephalic Mouth: dry mucous membranes Eyes PERRL, EOMs intact bilaterally and conjunctivae normal Neck no lymphadenopathy Resp Auscultation: crackles, wheezes and diminished lung sounds Cardio regular rate, regular rhythm and no murmurs Peripheral Pulses: pulses 2+ throughout GI normal to inspection, nondistended, normoactive bowel sounds, non-tender and non-distended Extremity normal to inspection Skin no rashes or lesions noted Lesions: no lesions Rashes: no rashes Trauma: no lacerations or abrasions Neuro CN's II-XII intact bilaterally, no focal motor deficits, no sensory deficits noted and deep tendon reflexes 2+ bilaterally Psych mental status grossly normal and affect normal Assessment & Plan Assessment/Plan (1) Acute hypoxemic respiratory failure: PLAN: Plan 1.? Acute hypoxic respiratory failure secondary to bilateral community-acquired pneumonia-IV Zosyn and IV Vanc. Albuterol and DuoNeb aerosols.? Urine for strep and Legionella negative.? Requiring high flow oxygen.? Pulmonary medicine consulted. Repeat CXR demonstrates persistent infiltrate right hemithorax. CTA without PE, bilateral pulmonary infiltrates.? Will need referral to pulmonary medicine at discharge for PFTs/outpatient follow-up given extensive smoking history. Initiated on IV steroids per pulmonary. 2. Generalized weakness- PT/OT.? Possible SNF.? Social work following. 3. Vertigo with presyncope-brain CT negative.? As needed meclizine.? Echo with EF 35%, stage I diastolic dysfunction.? Previous orthostatic vitals positive, repeat improved however still positive. Hold off on further fluids. PARMINDER hose ordered. 4. Hypertension-stable, continue metoprolol. 5. Hypokalemia-resolved. 6. CAD-continue aspirin, Plavix, metoprolol.? Allergy to statin. 7. Ischemic cardiomyopathy/history of paroxysmal ventricular tachycardia status post AICD-on amiodarone. 8. Depression/anxiety-paroxetine. 9. Tobacco dependence-encouraged cessation. 10. History of alcoholism-denies recent use. DVT prophylaxis-Lovenox sc This patient was seen by HI Dubose under the supervision of Dr. Linder. Time spent examining patient, reviewing data and subsequent management of care: 15 minutes Documented by User: Dr. Sunny Linder MD 05/31/22 15:45 Subjective Subjective Patient seen and examined. Subjectively feels improved with rest however requiring increased supplemental oxygen. Refusing BiPAP earlier this morning, now amendable. Denies fever, chills. Follow-up for acute hypoxic respiratory failure. Patient is still short of breath oxygen requirement 6 to 10 L. Gets easily dyspneic on minimal exertion and hypoxic. Refusing for BiPAP. Objective Data Lab / Micro Data Result Diagrams: 05/31/22 05:25 05/31/22 05:25 Labs: Laboratory Results - last 24 hr 05/30/22 03:53: B-Natriuretic Peptide 172.0 H 05/30/22 03:53: Procalcitonin 0.21 H 05/30/22 12:40: D-Dimer Quant (PE/DVT) 0.57 H* 05/30/22 13:35: MRSA (PCR) Negative 05/31/22 05:25: WBC 15.7 H, RBC 4.34 L, Hgb 14.7, Hct 42.1, MCV 97.0 H, MCH 33.9 H, MCHC 34.9, RDW Std Deviation 48.8 H, RDW Coeff of [place] 13.6, Plt Count 377, MPV 10.4, Immature Gran % (Auto) 0.800, Neut % (Auto) 82.7 H, Lymph % (Auto) 7.6 L, [place] % (Auto) 7.6, Eos % (Auto) 0.9, Baso % (Auto) 0.4, Absolute Neuts (auto) 13.0 H, Absolute Lymphs (auto) 1.19, Nucleated RBC % 0 05/31/22 05:25: Sodium 135 L, Potassium 4.0, Chloride 104, Carbon Dioxide 26.0, Anion Gap 5, BUN 18, Creatinine 0.64 L, Estim Creat Clear Calc 84.48, Est GFR (MDRD) Af Amer 161, Est GFR (MDRD) Non-Af 133, BUN/Creatinine Ratio 28.2 H, Glucose 115 H, Calcium 8.2 L, Total Bilirubin 0.40, AST 152 H, ALT 188 H, Alkaline Phosphatase 107, Total Protein 5.9 L, Albumin 2.1 L, Globulin 3.8, Albumin/Globulin Ratio 0.6 L Physical Exam Narrative Patient is stated he quit smoking a year ago. Prior to that started smoking in teenage, 1 pack lasting 3 days. Not heavy smoker. Physical exam General: Alert, Oriented x3, Cooperative HEENT: Atraumatic, PERRLA, EOMI, Normocephalic Oral: No Gingival or Mucosal Lesions/ Ulcerations Neck: Supple, No JVD, Negative Carotid Bruits Lungs: Air entry diminished in bilateral lung bases. Dyspnea at rest. No crepitation/rhonchi, 6 to 10 L of oxygen. Cardiovascular: Regular rate, Regular Rhythm, Normal S1, Normal S2, No murmurs, left subclavicular AICD Abdomen: Bowel Sounds Present, Soft, Non Tender, Non-Distended : No renal angle tenderness. No suprapubic tenderness. Extremities: No edema, Capillary Refill Less than 3 Seconds Skin: No rashes, No breakdown Musculoskeletal: No Tenderness to Palpation of Joints or Extremities Neurological: Cranial nerves II-XII grossly intact, DTR 2+/4 and Symmetrical, Neuro grossly intact Psych/Mental Status: Normal Affect, Appropriate. Assessment & Plan Assessment/Plan (1) Acute hypoxemic respiratory failure: PLAN: Plan 1.? Acute hypoxic respiratory failure secondary to bilateral community-acquired pneumonia-IV Zosyn and IV Vanc. Albuterol and DuoNeb aerosols.? Urine for strep and Legionella negative.? Requiring high flow oxygen.? Pulmonary medicine consulted. Repeat CXR demonstrates persistent infiltrate right hemithorax. CTA without PE, bilateral pulmonary infiltrates.? Will need referral to pulmonary medicine at discharge for PFTs/outpatient follow-up given extensive smoking history. Initiated on IV steroids per pulmonary. 2. Generalized weakness- PT/OT.? Possible SNF.? Social work following. 3. Vertigo with presyncope-brain CT negative.? As needed meclizine.? Echo with EF 35%, stage I diastolic dysfunction.? Previous orthostatic vitals positive, repeat improved however still positive. Hold off on further fluids. PARMINDER hurd ordered. 4. Hypertension-stable, continue metoprolol. 5. Hypokalemia-resolved. 6. CAD-continue aspirin, Plavix, metoprolol.? Allergy to statin. 7. Ischemic cardiomyopathy/history of paroxysmal ventricular tachycardia status post AICD-on amiodarone. 8. Depression/anxiety-paroxetine. 9. Tobacco dependence-encouraged cessation. 10. History of alcoholism-denies recent use. DVT prophylaxis-Lovenox sc This patient was seen by HI Dubose under the supervision of Dr. Linder. Time spent examining patient, reviewing data and subsequent management of care: 15 minutes This patient was seen in conjunction with Rosa VARELA.? I have independently interviewed and examined the patient and reviewed pertinent history, examination findings, laboratory and plan of management.? I have? reviewed the note and agree with the documented findings with the few? additional points. In brief, patient is 67-year-old male with history of coronary artery disease, CHF status post AICD in October 2017 admitted with shortness of breath.? Patient still short of breath, dyspnea at rest.? Complain of chest heaviness/pressure.? On 6 L of oxygen.? CT chest individually reviewed and shows bilateral peripheral infiltrates worse in right lower lung lobe.? Echo shows EF 35% stage I diastolic dysfunction.? Initially, patient was started on IV ceftriaxone and Zithromax but patient started having expected resolution of hypoxia therefore started on broad-spectrum antibiotic, Zosyn.? 05/30: Rail Maintenance Worker consult requested and appreciated.? CTA does not show PE but bilateral multiple pulmonary infiltrates.? Vancomycin added. Patient has allergy with iodine therefore premedicated with Solu-Medrol and Benadryl.? Agreed with diuresis 05/31: Solu-Medrol 40 mg every 8 hourly added. Patient refusing for BiPAP. Antibiotic to continue. Coronary artery disease with ischemic cardiomyopathy, CHF class III status post AICD: Patient on amiodarone.? Empirically Lasix.? BNP elevated.? I still do not think patient has acute heart failure but chronic heart failure. ?Patient had vertigo and near syncope and positive orthostatic signs.? CT head negative. Rest of the comorbidities as mentioned above I have discussed my assessment with Rosa VARELA and orders have been reviewed. Total time of the shared visit including total time spent in counseling or coordination of care, (more than 50% of the total time, spent in obtaining medical information from nurses and other ancillary care providers,explaining to the patient about labs, imaging, diagnosis and management), discussion with franchise consultant, review of labs and imaging is? 40 minutes.? I spent 25 minutes and NICHOLE Lee spent 15 minutes Charges/Coding Visit Charges Inpatient E&M: 69926 Subs Hosp L2
[2022-06-01] VITALS (15 sets, daily range): BP systolic 122–139; BP diastolic 65–74; PULSE 58–78; RESP 17–28; TEMP 36.5–36.7; O2SAT 92–94
[2022-06-01 01:21] LABS: Absolute Lymphocyte Count 0.59 X10^3/uL (0.83-4.51); Absolute Neutrophil Count 13.3 X10^3/uL (2.0-7.7); Basophil# 0.02 X10^3/uL; Basophil% 0.1 % (0-1); Hematocrit 40.6 % (40-54); Hemoglobin 13.8 g/dL (13.0-16.5); Lymphocyte # 0.59 X10^3/ul (0.83-4.51); Lymphocyte % 4.1 % (19-41); Mean Corpuscular Hgb 33.1 pg (27.0-32.0); Mean Corpuscular Volume 97.4 fL (80-94); Mean Platelet Vol. 10.1 fl (6.2-12.0); Monocyte# 0.47 X10^3/uL; Monocyte% 3.2 % (0-10); NRBC Flagged by Analyzer 0 % (0-5); Neutrophil # 13.26 X10^3/uL (2.7-7.7); Neutrophil % 91.6 % (47-70); POSITIVE DIFFERENTIAL YES; Platelet Count 394 K/mm3 (150-450); RBC Distribution Width CV 13.5 % (11.6-14.6); RBC Distribution Width SD 48.6 fl (35.1-43.9); Red Blood Count 4.17 M/mm3 (4.6-6.2); White Blood Count 14.5 K/mm3 (4.4-11.0)
[2022-06-01 01:53] LABS: Differential Indicated SCAN CRITERIA MET; Vancomycin, Trough Level 12.4 ug/mL (5.0-15.0)
[2022-06-01 01:54] LABS: ALB/GLOB Ratio 0.5 RATIO (0.9-2.4); AST(SGOT) 225 U/L (15-37); Alanine Aminotransfer ALT/SGPT 246 U/L (16-61); Albumin, Serum 1.9 g/dL (3.2-5.0); Alkaline Phosphatase 120 U/L (45-117); Anion Gap 6 (5-15); BUN 24 mg/dL (7-18); BUN/Creat Ratio 27.2 RATIO (10-20); Chloride 104 mmol/L (98-107); Creatinine, Serum 0.88 mg/dL (0.70-1.30); Differential Comment SCANNED; EST Glomerular Filtration Rate 92 mL/min (>60); Est Glom Filt Rate - Afr Amer 111 mL/min (>60); Globulin 3.7 g/dL (2.2-4.2); Glucose 217 mg/dL (74-106); Potassium 4.5 mmol/L (3.5-5.1); Protein, Total 5.6 g/dL (6.4-8.2); Sodium Level 136 mmol/L (136-145)
--- NOTE | 2022-06-01 02:59 | PCM.RX.CS ---
Consult Pharmacy has been consulted to manage selected antiobiotic: Vancomycin Type of Consult: Follow-up Suspected Infection: Pneumonia Labs: Sodium 136 mmol/L (136-145) 06/01/22 01:15 Potassium 4.5 mmol/L (3.5-5.1) 06/01/22 01:15 Chloride 104 mmol/L (98-107) 06/01/22 01:15 Carbon Dioxide 26.0 mmol/L (21.0-32.0) 06/01/22 01:15 Anion Gap 6 (5-15) 06/01/22 01:15 BUN 24 mg/dL (7-18) H 06/01/22 01:15 Creatinine 0.88 mg/dL (0.70-1.30) 06/01/22 01:15 Est GFR (MDRD) Af Amer 111 mL/min (>60) 06/01/22 01:15 Est GFR (MDRD) Non-Af 92 mL/min (>60) 06/01/22 01:15 BUN/Creatinine Ratio 27.2 RATIO (10-20) H 06/01/22 01:15 Glucose 217 mg/dL (74-106) H 06/01/22 01:15 Vancomycin Trough 12.4 ug/mL (5.0-15.0) 06/01/22 01:15 Microbiology: Microbiology 05/30/22 20:44 Sputum, Expectorated/Coughed Gram Stain - Final 05/26/22 07:44 Mucosa - Nasopharyngeal Respiratory Panel (PCR) - Final 05/25/22 21:15 Urine Catheter - Catheter Legionella Antigen - Final 05/25/22 21:15 Urine Catheter - Catheter Streptococcus pneumoniae Antigen (M - Final 05/25/22 19:20 Nasal Secretion SARS-CoV-2 Antigen (Rapid) - Final Goal Trough: 15-20 mcg/mL Pharmacy Plan for Drug Dosing: VANCOMYCIN LEVEL RECEIVED Current Vancomycin Dose: 1500mg IV Q12hr Number of Doses Received: 4 (3 prior to trough drawn) Vancomycin Level: 12.4 Hours Since Last Dose: 12hr Renal Function: 0.88 Renal Function Trend: stable Lab/Micro: SCx pending Vancomycin Plan/Comments: Patient had a trough drawn which resulted in a value of 12.4 (goal 15-20). Will increase dose slightly and start new dosing at time next dose due, as patient has already ad 0200 dose hung this evening. Will start patient on Vancomycin 1750mg IV Q12hr to start 06/02/22 @1400 Pending Level: 06/03/22 @0130, prior to 4th dose of new regimen per protocol Pharmacy Service will continue to monitor and adjust dosing as required.
--- NOTE | 2022-06-01 06:10 | PCM.PN.INT ---
Assessment & Plan Assessment/Plan (1) Acute hypoxemic respiratory failure: PLAN: Plan RECOMMENDATIONS: 1. Wean oxygen as tolerated for saturations greater than 90%. 2. Continue broad-spectrum antimicrobials, pending finalized culture results. 3. Continue scheduled bronchodilators and IV steroids. 4. Continue diuresis as tolerated by hemodynamics and renal function. 5. Encourage incentive spirometer use and mobilize patient as tolerated. IMPRESSIONS: 1. Multifocal pneumonia with hypoxemia The patient's chest radiographs demonstrate bilateral pneumonia, right greater than left. He has been on Zosyn now during his hospitalization. However, in 2019, the patient screened positive for MRSA. Therefore, I would recommend that vancomycin be continued as well. CTA chest showed no evidence for pulmonary embolism. The patient did have mild obstructive lung disease noted on PFTs several years ago. Accordingly, the patient is going to be continued on scheduled bronchodilators and IV steroids. Lastly, continue scheduled diuretics as tolerated by hemodynamics and renal function. 2. History of coronary artery disease/ischemic cardiomyopathy/depression/history of tobacco and alcohol dependency in remission Complicates care, management, recovery and prognosis. Continue home medications as indicated. This note was generated with [employer] dictation software. It may contain incorrect words, spelling, and punctuation that were not noted in checking the note before signing. Subjective Subjective The patient was seen and examined at the bedside this morning. Events from the last 24 hours have been reviewed. The patient is currently afebrile, hemodynamically stable and maintaining appropriate oxygen saturations on Airvo heated high flow with an FiO2 requirement of 60% and flow rate of 40 L/min. The patient was intolerant of BiPAP yesterday. He is currently documented to be overall net +3 L for the hospitalization. He remains on broad-spectrum antimicrobials, bronchodilators and steroids. Objective Data Objective Data The patient's most recent lab work, culture data and imaging studies have all been personally reviewed. Surface echocardiogram demonstrated stage I diastolic dysfunction with an ejection fraction of 35%. Respiratory viral panel was negative. Strep and urine Legionella antigens were negative. Rapid COVID testing was negative. Sputum gram stain demonstrated 2+ gram-positive cocci and 1+ gram-negative rods. Vital Signs: Vital Signs Temp Pulse Resp BP Pulse Ox O2 Del Method O2 Flow Rate 98.1 F 64 18 122/65 H 92 Airvo 40 06/01/22 03:30 06/01/22 03:52 06/01/22 03:52 06/01/22 03:30 06/01/22 03:52 06/01/22 03:30 06/01/22 03:30 FiO2 60 06/01/22 03:52 Oxygen Flow Rate (L/min) [ 7 AMBULATING with Oxygen #3] Oxygen Flow Rate (L/min) [ 5 AMBULATING with Oxygen #2] Oxygen Flow Rate (L/min) [ 4 AMBULATING with Oxygen #1] Oxygen Flow Rate (L/min) [At 4 REST with Oxygen] Oxygen Flow Rate (L/min) [At 0 REST on Room Air] Oxygen Flow Rate (L/min) 40 Oxygen Delivery Method Airvo Weight: 183 lb 12.79 oz Body Mass Index (BMI) 23.6 Intake & Output: Intake and Output for Last 24 Hours 05/30/22 05/31/22 06/01/22 23:59 23:59 23:59 Intake Total 2260 / 2260 2530 / 2880 930 / 930 Output Total 3900 / 3900 3350 / 3775 675 / 675 Balance -1640 / -1640 -820 / -895 255 / 255 Lab / Micro Data Attestation: I reviewed the patient's lab results. Result Diagrams: 06/01/22 01:15 06/01/22 01:15 Labs: Laboratory Results - last 24 hr 05/31/22 05:25: WBC 15.7 H, RBC 4.34 L, Hgb 14.7, Hct 42.1, MCV 97.0 H, MCH 33.9 H, MCHC 34.9, RDW Std Deviation 48.8 H, RDW Coeff of [place] 13.6, Plt Count 377, MPV 10.4, Immature Gran % (Auto) 0.800, Neut % (Auto) 82.7 H, Lymph % (Auto) 7.6 L, [place] % (Auto) 7.6, Eos % (Auto) 0.9, Baso % (Auto) 0.4, Absolute Neuts (auto) 13.0 H, Absolute Lymphs (auto) 1.19, Nucleated RBC % 0 05/31/22 05:25: Sodium 135 L, Potassium 4.0, Chloride 104, Carbon Dioxide 26.0, Anion Gap 5, BUN 18, Creatinine 0.64 L, Estim Creat Clear Calc 84.48, Est GFR (MDRD) Af Amer 161, Est GFR (MDRD) Non-Af 133, BUN/Creatinine Ratio 28.2 H, Glucose 115 H, Calcium 8.2 L, Total Bilirubin 0.40, AST 152 H, ALT 188 H, Alkaline Phosphatase 107, Total Protein 5.9 L, Albumin 2.1 L, Globulin 3.8, Albumin/Globulin Ratio 0.6 L 06/01/22 01:15: WBC 14.5 H, RBC 4.17 L, Hgb 13.8, Hct 40.6, MCV 97.4 H, MCH 33.1 H, MCHC 34.0, RDW Std Deviation 48.6 H, RDW Coeff of [place] 13.5, Plt Count 394, MPV 10.1, Immature Gran % (Auto) 1.000 H, Neut % (Auto) 91.6 H, Lymph % (Auto) 4.1 L, [place] % (Auto) 3.2, Eos % (Auto) 0.0, Baso % (Auto) 0.1, Absolute Neuts (auto) 13.3 H, Absolute Lymphs (auto) 0.59 L, Nucleated RBC % 0, Differential Comment SCANNED 06/01/22 01:15: Sodium 136, Potassium 4.5, Chloride 104, Carbon Dioxide 26.0, Anion Gap 6, BUN 24 H, Creatinine 0.88, Estim Creat Clear Calc 96.00, Est GFR (MDRD) Af Amer 111, Est GFR (MDRD) Non-Af 92, BUN/Creatinine Ratio 27.2 H, Glucose 217 H, Calcium 8.0 L, Total Bilirubin 0.30, AST 225 H, ALT 246 H, Alkaline Phosphatase 120 H, Total Protein 5.6 L, Albumin 1.9 L, Globulin 3.7, Albumin/Globulin Ratio 0.5 L 06/01/22 01:15: Vancomycin Trough 12.4 Micro: Microbiology 05/30/22 20:44 Sputum, Expectorated/Coughed Gram Stain - Final 05/26/22 07:44 Mucosa - Nasopharyngeal Respiratory Panel (PCR) - Final 05/25/22 21:15 Urine Catheter - Catheter Legionella Antigen - Final 05/25/22 21:15 Urine Catheter - Catheter Streptococcus pneumoniae Antigen (M - Final 05/25/22 19:20 Nasal Secretion SARS-CoV-2 Antigen (Rapid) - Final Radiography Diagnostic Testing: Radiology Impression Chest X-Ray 05/30/22 05:55 IMPRESSION: Persistent infiltrate in the right hemithorax. This is unchanged. Improved aeration of the left lung with residual left midlung infiltrate. Electronically Signed: Ozzy Brandon MD at 10:09 EDT , Chest CTA 05/30/22 13:00 IMPRESSION: No evidence of pulmonary emboli. Bilateral pulmonary infiltrates worse in the right hemithorax. Electronically Signed: Ozzy Brandon MD at 14:29 EDT , Physical Exam Const alert, oriented x3 and no apparent distress General Appearance: cooperative HEENT normocephalic and head/scalp atraumatic Eyes PERRL, EOMs intact bilaterally and conjunctivae normal Neck supple General: trachea midline Chest inspection of chest normal Resp normal respiratory effort Auscultation: diminished lung sounds; Negative for rales, rhonchi or wheezes Cardio regular rate and regular rhythm GI normal to inspection, nondistended, normoactive bowel sounds Extremity no clubbing, cyanosis or edema Skin no rashes or lesions noted Neuro CN's II-XII intact bilaterally, moves all extremities and no focal motor deficits Psych Mood & Affect: flat affect Charges/Coding Visit Charges Inpatient E&M: 94610 Subs Hosp L3
[2022-06-01] MEDS: Ipratropium/Albuterol Sulfate 3 ML AMPUL.NEB INHALATION ×3 (06:44→15:06)
[2022-06-01] MEDS: Amiodarone 200 MG Tablet PO ×2 (08:31→17:07)
[2022-06-01] MEDS: Furosemide 40 MG/4 ML Vial IV (08:32)
[2022-06-01] MEDS: Metoprolol(XL)Succ 25 MG Tablet 12.5 MG PO (08:32)
[2022-06-01] MEDS: guaiFENesin 1,200 MG Tablet 1200 MG PO ×2 (08:32→21:41)
[2022-06-01] MEDS: Aspirin E.C. 81 MG Tablet PO (08:32)
[2022-06-01] MEDS: Clopidogrel Bisulfate 75 MG Tablet PO (08:32)
[2022-06-01] MEDS: Enoxaparin 40 MG/0.4 ML Syringe SC (08:32)
[2022-06-01] MEDS: 0.9% Saline Lock 10 ML Syringe IV ×4 (08:33→17:07)
[2022-06-01] MEDS: PARoxetine 10 MG Tablet 30 MG PO (08:33)
--- NOTE | 2022-06-01 12:10 | PN.HOSP_ITS ---
Documented by User: Rosa Marie NP, NURSING HOME ADMISSIONS DIRECTOR-C 06/01/22 12:19 Subjective Subjective Patient seen and examined. Reports he feels the same. Denies fever, chills. States he gets short of breath with minimal activity. Encouraged patient to get up to chair/out of bed. Objective Data Objective Data Vital Signs: Vital Signs Temp Pulse Resp BP Pulse Ox O2 Del Method O2 Flow Rate 97.9 F 74 22 H 139/74 H 92 Airvo 40 06/01/22 09:30 06/01/22 10:43 06/01/22 10:43 06/01/22 09:30 06/01/22 09:30 06/01/22 09:30 06/01/22 09:30 FiO2 65 06/01/22 09:30 Oxygen Flow Rate (L/min) [ 7 AMBULATING with Oxygen #3] Oxygen Flow Rate (L/min) [ 5 AMBULATING with Oxygen #2] Oxygen Flow Rate (L/min) [ 4 AMBULATING with Oxygen #1] Oxygen Flow Rate (L/min) [At 4 REST with Oxygen] Oxygen Flow Rate (L/min) [At 0 REST on Room Air] Oxygen Flow Rate (L/min) 40 Oxygen Delivery Method Airvo Weight: 183 lb 12.79 oz Body Mass Index (BMI) 23.6 Intake & Output: Intake and Output for Last 24 Hours 05/30/22 05/31/22 06/01/22 23:59 23:59 23:59 Intake Total 2260 / 2260 2530 / 2880 1580 / 1580 Output Total 3900 / 3900 3350 / 3775 2024 / 2024 Balance -1640 / -1640 -820 / -895 -445 / -445 Lab / Micro Data Result Diagrams: 06/01/22 01:15 06/01/22 01:15 Labs: Laboratory Results - last 24 hr 06/01/22 01:15: WBC 14.5 H, RBC 4.17 L, Hgb 13.8, Hct 40.6, MCV 97.4 H, MCH 33.1 H, MCHC 34.0, RDW Std Deviation 48.6 H, RDW Coeff of [place] 13.5, Plt Count 394, MPV 10.1, Immature Gran % (Auto) 1.000 H, Neut % (Auto) 91.6 H, Lymph % (Auto) 4.1 L, [place] % (Auto) 3.2, Eos % (Auto) 0.0, Baso % (Auto) 0.1, Absolute Neuts (auto) 13.3 H, Absolute Lymphs (auto) 0.59 L, Nucleated RBC % 0, Differential Comment SCANNED 06/01/22 01:15: Sodium 136, Potassium 4.5, Chloride 104, Carbon Dioxide 26.0, Anion Gap 6, BUN 24 H, Creatinine 0.88, Estim Creat Clear Calc 96.00, Est GFR (MDRD) Af Amer 111, Est GFR (MDRD) Non-Af 92, BUN/Creatinine Ratio 27.2 H, Glucose 217 H, Calcium 8.0 L, Total Bilirubin 0.30, AST 225 H, ALT 246 H, Alkaline Phosphatase 120 H, Total Protein 5.6 L, Albumin 1.9 L, Globulin 3.7, Albumin/Globulin Ratio 0.5 L 06/01/22 01:15: Vancomycin Trough 12.4 Micro: Microbiology 05/30/22 20:44 Sputum, Expectorated/Coughed Gram Stain - Final 05/26/22 07:44 Mucosa - Nasopharyngeal Respiratory Panel (PCR) - Final 05/25/22 21:15 Urine Catheter - Catheter Legionella Antigen - Final 05/25/22 21:15 Urine Catheter - Catheter Streptococcus pneumoniae Antigen (M - Final 05/25/22 19:20 Nasal Secretion SARS-CoV-2 Antigen (Rapid) - Final Physical Exam Const alert and oriented x3 HEENT normocephalic and moist oral mucous membranes Eyes PERRL, EOMs intact bilaterally and conjunctivae normal Neck no lymphadenopathy Resp clear to auscultation bilaterally Auscultation: diminished lung sounds Cardio regular rate, regular rhythm and no murmurs Peripheral Pulses: pulses 2+ throughout GI normal to inspection, nondistended, normoactive bowel sounds, non-tender and non-distended Extremity normal to inspection Skin no rashes or lesions noted Lesions: no lesions Rashes: no rashes Trauma: no lacerations or abrasions Neuro CN's II-XII intact bilaterally, no focal motor deficits, no sensory deficits noted and deep tendon reflexes 2+ bilaterally Psych mental status grossly normal and affect normal Assessment & Plan Assessment/Plan (1) Acute hypoxemic respiratory failure: PLAN: Plan 1.? Acute hypoxic respiratory failure secondary to bilateral community-acquired pneumonia-IV Zosyn and IV Vanc. Albuterol and DuoNeb aerosols.? Urine for strep and Legionella negative.? Requiring high flow oxygen.? Pulmonary medicine consulted. Repeat CXR demonstrates persistent infiltrate right hemithorax.? CTA without PE, bilateral pulmonary infiltrates.? Will need referral to pulmonary medicine at discharge for PFTs/outpatient follow-up given extensive smoking history. Continue IV Solu-Medrol. 2. Generalized weakness- PT/OT.? Possible SNF.? Social work following. 3. Vertigo with presyncope-brain CT negative.? As needed meclizine.? Echo with EF 35%, stage I diastolic dysfunction.? Previous orthostatic vitals positive, repeat improved however still positive.? Hold off on further fluids.? PARMINDER hose ordered. 4. Hypertension-stable, continue metoprolol. 5. Hypokalemia-resolved. 6. CAD-continue aspirin, Plavix, metoprolol.? Allergy to statin. 7. Ischemic cardiomyopathy/history of paroxysmal ventricular tachycardia status post AICD-on amiodarone. Echocardiogram completed and demonstrates an EF of 35%, stage I diastolic dysfunction. 8. Depression/anxiety-paroxetine. 9. Tobacco dependence-encouraged cessation. 10. History of alcoholism-denies recent use. DVT prophylaxis-Lovenox sc This patient was seen by HI Dubose under the supervision of Dr. Linder. Time spent examining patient, reviewing data and subsequent management of care: 14 minutes Documented by User: Dr. Sunny Linder MD 06/01/22 14:06 Subjective Subjective Patient seen and examined. Reports he feels the same. Denies fever, chills. States he gets short of breath with minimal activity. Encouraged patient to get up to chair/out of bed. Seen and examined. Patient does not feel improvement in shortness of breath. He is comfortable at rest but gets winded, dizzy lightheaded on walking. Objective Data Lab / Micro Data Result Diagrams: 06/01/22 01:15 06/01/22 01:15 Physical Exam Narrative Seen and examined Physical exam General: Alert, Oriented x3, Cooperative HEENT: Atraumatic, PERRLA, EOMI, Normocephalic Oral: No Gingival or Mucosal Lesions/ Ulcerations Neck: Supple, No JVD, Negative Carotid Bruits Lungs: Air entry diminished in bilateral lung bases. Dyspnea on minimal exertion. No crepitation/rhonchi on AIRVO. Cardiovascular: Regular rate, Regular Rhythm, Normal S1, Normal S2, No murmurs, left subclavicular AICD Abdomen: Bowel Sounds Present, Soft, Non Tender, Non-Distended : No renal angle tenderness. No suprapubic tenderness. Extremities: No edema, Capillary Refill Less than 3 Seconds Skin: No rashes, No breakdown Musculoskeletal: No Tenderness to Palpation of Joints or Extremities Neurological: Cranial nerves II-XII grossly intact, DTR 2+/4 and Symmetrical, Neuro grossly intact Psych/Mental Status: Normal Affect, Appropriate. Assessment & Plan Assessment/Plan (1) Acute hypoxemic respiratory failure: PLAN: Plan 1.? Acute hypoxic respiratory failure secondary to bilateral community-acquired pneumonia-IV Zosyn and IV Vanc. Albuterol and DuoNeb aerosols.? Urine for strep and Legionella negative.? Requiring high flow oxygen.? Pulmonary medicine consulted. Repeat CXR demonstrates persistent infiltrate right hemithorax.? CTA without PE, bilateral pulmonary infiltrates.? Will need referral to pulmonary medicine at discharge for PFTs/outpatient follow-up given extensive smoking history. Continue IV Solu-Medrol. 2. Generalized weakness- PT/OT.? Possible SNF.? Social work following. 3. Vertigo with presyncope-brain CT negative.? As needed meclizine.? Echo with EF 35%, stage I diastolic dysfunction.? Previous orthostatic vitals positive, repeat improved however still positive.? Hold off on further fluids.? PARMINDER hurd ordered. 4. Hypertension-stable, continue metoprolol. 5. Hypokalemia-resolved. 6. CAD-continue aspirin, Plavix, metoprolol.? Allergy to statin. 7. Ischemic cardiomyopathy/history of paroxysmal ventricular tachycardia status post AICD-on amiodarone. Echocardiogram completed and demonstrates an EF of 35%, stage I diastolic dysfunction. 8. Depression/anxiety-paroxetine. 9. Tobacco dependence-encouraged cessation. 10. History of alcoholism-denies recent use. DVT prophylaxis-Lovenox sc This patient was seen by HI Dubose under the supervision of Dr. Linder. Time spent examining patient, reviewing data and subsequent management of care: 15 minutes This patient was seen in conjunction with Rosa VARELA.? I have independently interviewed and examined the patient and reviewed pertinent history, examination findings, laboratory and plan of management.? I have? reviewed the note and agree with the documented findings with the few? additional points. In brief, patient is 67-year-old male with history of coronary artery disease, CHF status post AICD in October 2017 admitted with shortness of breath.? Patient still short of breath, dyspnea at rest.? Complain of chest heaviness/pressure.? On 6 L of oxygen.? CT chest individually reviewed and shows bilateral peripheral infiltrates worse in right lower lung lobe.? Echo shows EF 35% stage I diastolic dysfunction.? Initially, patient was started on IV ceftriaxone and Zithromax but patient started having expected resolution of hypoxia therefore started on broad-spectrum antibiotic, Zosyn.? 05/30: Eyelet Cutter consult requested and appreciated.? CTA does not show PE but bilateral multiple pulmonary infiltrates.? Vancomycin added. Patient has allergy with iodine therefore premedicated with Solu-Medrol and Benadryl.? Agreed with diuresis 05/31: Solu-Medrol 40 mg every 8 hourly added.? Patient refusing for BiPAP.? Antibiotic to continue. 06/01: Mild improvement as patient is not short of breath or dyspneic at rest. Continue antibiotic treatment. Pulmonary follow-up reviewed Coronary artery disease with ischemic cardiomyopathy, CHF class III status post AICD: Patient on amiodarone.? Empirically Lasix.? BNP elevated.? I still do not think patient has acute heart failure but chronic heart failure. ?Patient had vertigo and near syncope and positive orthostatic signs.? CT head negative. Rest of the comorbidities as mentioned above I have discussed my assessment with Rosa VARELA and orders have been reviewed. Charges/Coding Visit Charges Inpatient E&M: 41291 [facility] Hosp L3
[2022-06-02] VITALS (17 sets, daily range): BP systolic 116–145; BP diastolic 70–90; PULSE 60–97; RESP 16–20; TEMP 36.6–36.9; O2SAT 90–97
--- NOTE | 2022-06-02 06:10 | PCM.PN.INT ---
Assessment & Plan Assessment/Plan (1) Acute hypoxemic respiratory failure: PLAN: Plan RECOMMENDATIONS: 1. Wean FiO2 for saturations greater than 90%. 2. Continue broad-spectrum antimicrobials, pending finalized culture results. 3. Continue scheduled bronchodilators and IV steroids. 4. Continue diuresis as tolerated by hemodynamics and renal function. 5. Encourage incentive spirometer use and mobilize patient as tolerated. IMPRESSIONS: 1. Multifocal pneumonia with hypoxemia The patient's chest radiographs demonstrate bilateral pneumonia, right greater than left. He has been on Zosyn now during his hospitalization. However, in 2019, the patient screened positive for MRSA. Therefore, I would recommend that vancomycin be continued as well. CTA chest showed no evidence for pulmonary embolism. The patient did have mild obstructive lung disease noted on PFTs several years ago. Accordingly, the patient is going to be continued on scheduled bronchodilators and IV steroids. Lastly, continue scheduled diuretics as tolerated by hemodynamics and renal function. 2. History of coronary artery disease/ischemic cardiomyopathy/depression/history of tobacco and alcohol dependency in remission Complicates care, management, recovery and prognosis. Continue home medications as indicated. This note was generated with [employer] dictation software. It may contain incorrect words, spelling, and punctuation that were not noted in checking the note before signing. Subjective Subjective The patient was seen and examined at the bedside this morning. Events from the last 24 hours have been reviewed. The patient is currently afebrile, hemodynamically stable and maintaining appropriate oxygen saturations on Airvo heated high flow with an FiO2 of 69% and flow rate of 40 L/min. The patient is documented to be overall net +2.3 L for the hospitalization. Objective Data Objective Data The patient's most recent lab work, culture data and imaging studies have all been personally reviewed. Surface echocardiogram demonstrated stage I diastolic dysfunction with an ejection fraction of 35%. Respiratory viral panel was negative. Strep and urine Legionella antigens were negative. Rapid COVID testing was negative. Sputum gram stain demonstrated 2+ gram-positive cocci and 1+ gram-negative rods. Vital Signs: Vital Signs Temp Pulse Resp BP Pulse Ox O2 Del Method O2 Flow Rate 97.8 F 61 18 132/71 H 92 Airvo 40 06/02/22 03:25 06/02/22 03:40 06/02/22 03:40 06/02/22 03:25 06/02/22 03:40 06/02/22 03:36 06/01/22 15:25 FiO2 68 06/02/22 03:40 Oxygen Flow Rate (L/min) [ 7 AMBULATING with Oxygen #3] Oxygen Flow Rate (L/min) [ 5 AMBULATING with Oxygen #2] Oxygen Flow Rate (L/min) [ 4 AMBULATING with Oxygen #1] Oxygen Flow Rate (L/min) [At 4 REST with Oxygen] Oxygen Flow Rate (L/min) [At 0 REST on Room Air] Oxygen Flow Rate (L/min) 40 Oxygen Delivery Method Airvo Weight: 183 lb 12.79 oz Body Mass Index (BMI) 23.6 Intake & Output: Intake and Output for Last 24 Hours 05/31/22 06/01/22 06/02/22 23:59 23:59 23:59 Intake Total 2530 / 2880 2715 / 2715 585 / 585 Output Total 3350 / 3775 3475 / 3475 325 / 325 Balance -820 / -895 -760 / -760 260 / 260 Lab / Micro Data Attestation: I reviewed the patient's lab results. Result Diagrams: 06/02/22 05:33 06/02/22 05:33 Labs: Laboratory Results - last 24 hr 05/31/22 05:25: WBC 15.7 H, RBC 4.34 L, Hgb 14.7, Hct 42.1, MCV 97.0 H, MCH 33.9 H, MCHC 34.9, RDW Std Deviation 48.8 H, RDW Coeff of [place] 13.6, Plt Count 377, MPV 10.4, Immature Gran % (Auto) 0.800, Neut % (Auto) 82.7 H, Lymph % (Auto) 7.6 L, [place] % (Auto) 7.6, Eos % (Auto) 0.9, Baso % (Auto) 0.4, Absolute Neuts (auto) 13.0 H, Absolute Lymphs (auto) 1.19, Nucleated RBC % 0 05/31/22 05:25: Sodium 135 L, Potassium 4.0, Chloride 104, Carbon Dioxide 26.0, Anion Gap 5, BUN 18, Creatinine 0.64 L, Estim Creat Clear Calc 84.48, Est GFR (MDRD) Af Amer 161, Est GFR (MDRD) Non-Af 133, BUN/Creatinine Ratio 28.2 H, Glucose 115 H, Calcium 8.2 L, Total Bilirubin 0.40, AST 152 H, ALT 188 H, Alkaline Phosphatase 107, Total Protein 5.9 L, Albumin 2.1 L, Globulin 3.8, Albumin/Globulin Ratio 0.6 L 06/01/22 01:15: WBC 14.5 H, RBC 4.17 L, Hgb 13.8, Hct 40.6, MCV 97.4 H, MCH 33.1 H, MCHC 34.0, RDW Std Deviation 48.6 H, RDW Coeff of [place] 13.5, Plt Count 394, MPV 10.1, Immature Gran % (Auto) 1.000 H, Neut % (Auto) 91.6 H, Lymph % (Auto) 4.1 L, [place] % (Auto) 3.2, Eos % (Auto) 0.0, Baso % (Auto) 0.1, Absolute Neuts (auto) 13.3 H, Absolute Lymphs (auto) 0.59 L, Nucleated RBC % 0, Differential Comment SCANNED 06/01/22 01:15: Sodium 136, Potassium 4.5, Chloride 104, Carbon Dioxide 26.0, Anion Gap 6, BUN 24 H, Creatinine 0.88, Estim Creat Clear Calc 96.00, Est GFR (MDRD) Af Amer 111, Est GFR (MDRD) Non-Af 92, BUN/Creatinine Ratio 27.2 H, Glucose 217 H, Calcium 8.0 L, Total Bilirubin 0.30, AST 225 H, ALT 246 H, Alkaline Phosphatase 120 H, Total Protein 5.6 L, Albumin 1.9 L, Globulin 3.7, Albumin/Globulin Ratio 0.5 L 06/01/22 01:15: Vancomycin Trough 12.4 Micro: Microbiology 05/30/22 20:44 Sputum, Expectorated/Coughed Gram Stain - Final 05/30/22 20:44 Sputum, Expectorated/Coughed Respiratory Culture - Preliminary Presumptive C albicans 05/26/22 07:44 Mucosa - Nasopharyngeal Respiratory Panel (PCR) - Final 05/25/22 21:15 Urine Catheter - Catheter Legionella Antigen - Final 05/25/22 21:15 Urine Catheter - Catheter Streptococcus pneumoniae Antigen (M - Final 05/25/22 19:20 Nasal Secretion SARS-CoV-2 Antigen (Rapid) - Final Radiography Diagnostic Testing: Radiology Impression Chest X-Ray 05/30/22 05:55 IMPRESSION: Persistent infiltrate in the right hemithorax. This is unchanged. Improved aeration of the left lung with residual left midlung infiltrate. Electronically Signed: Ozzy Brandon MD at 10:09 EDT , Chest CTA 05/30/22 13:00 IMPRESSION: No evidence of pulmonary emboli. Bilateral pulmonary infiltrates worse in the right hemithorax. Electronically Signed: Ozzy Brandon MD at 14:29 EDT , Physical Exam Const alert, oriented x3 and no apparent distress Constitutional Narrative: Airvo cannula in place. General Appearance: cooperative HEENT normocephalic and head/scalp atraumatic Eyes PERRL, EOMs intact bilaterally and conjunctivae normal Neck supple General: trachea midline Chest inspection of chest normal Resp normal respiratory effort Auscultation: diminished lung sounds; Negative for rales, rhonchi or wheezes Cardio regular rate and regular rhythm GI normal to inspection, nondistended, normoactive bowel sounds Extremity no clubbing, cyanosis or edema Skin no rashes or lesions noted Neuro CN's II-XII intact bilaterally, moves all extremities and no focal motor deficits Psych Mood & Affect: flat affect Charges/Coding Visit Charges Inpatient E&M: 23572 Subs Hosp L3
[2022-06-02 06:15] LABS: Absolute Lymphocyte Count 0.83 X10^3/uL (0.83-4.51); Absolute Neutrophil Count 20.3 X10^3/uL (2.0-7.7); Basophil# 0.04 X10^3/uL; Basophil% 0.2 % (0-1); Hematocrit 41.4 % (40-54); Lymphocyte # 0.83 X10^3/ul (0.83-4.51); Lymphocyte % 3.7 % (19-41); Mean Corp Hgb Conc 33.8 g/dL (32-36); Mean Corpuscular Volume 97.6 fL (80-94); Mean Platelet Vol. 10.1 fl (6.2-12.0); Monocyte# 1.11 X10^3/uL; Monocyte% 4.9 % (0-10); NRBC Flagged by Analyzer 0 % (0-5); Neutrophil # 20.26 X10^3/uL (2.7-7.7); Neutrophil % 89.7 % (47-70); POSITIVE DIFFERENTIAL YES; Platelet Count 475 K/mm3 (150-450); RBC Distribution Width CV 13.5 % (11.6-14.6); RBC Distribution Width SD 48.1 fl (35.1-43.9); Red Blood Count 4.24 M/mm3 (4.6-6.2); White Blood Count 22.6 K/mm3 (4.4-11.0)
[2022-06-02 06:25] LABS: Differential Indicated SCAN CRITERIA MET
[2022-06-02 06:46] LABS: Anisocytosis 1+; Macrocytosis 1+
[2022-06-02 06:49] LABS: Anion Gap 3 (5-15); BUN 29 mg/dL (7-18); BUN/Creat Ratio 40.5 RATIO (10-20); Calcium,Total 8.2 mg/dL (8.5-10.1); Chloride 107 mmol/L (98-107); Creatinine, Serum 0.72 mg/dL (0.70-1.30); EST Glomerular Filtration Rate 117 mL/min (>60); Est Glom Filt Rate - Afr Amer 141 mL/min (>60); Estimated Creatinine Clearance 84.48 ml/min; Glucose 161 mg/dL (74-106); Potassium 4.7 mmol/L (3.5-5.1); Sodium Level 137 mmol/L (136-145)
[2022-06-02] MEDS: Ipratropium/Albuterol Sulfate 3 ML AMPUL.NEB INHALATION ×4 (06:58→19:07)
[2022-06-02] MEDS: Enoxaparin 40 MG/0.4 ML Syringe SC (09:08)
[2022-06-02] MEDS: Furosemide 40 MG/4 ML Vial IV ×2 (09:09→22:48)
[2022-06-02] MEDS: PARoxetine 10 MG Tablet 30 MG PO (09:09)
[2022-06-02] MEDS: guaiFENesin 1,200 MG Tablet 1200 MG PO ×2 (09:09→22:48)
[2022-06-02] MEDS: Amiodarone 200 MG Tablet PO ×2 (09:10→17:58)
[2022-06-02] MEDS: Metoprolol(XL)Succ 25 MG Tablet 12.5 MG PO (09:10)
[2022-06-02] MEDS: Clopidogrel Bisulfate 75 MG Tablet PO (09:10)
[2022-06-02] MEDS: Aspirin E.C. 81 MG Tablet PO (09:10)
[2022-06-02] MEDS: Senna/Docusate Sodium 1 Tablet 2 TABLET PO (09:35)
--- NOTE | 2022-06-02 09:41 | PCM.PN.HOSP ---
Documented by User: Rosa Marie NP, NAILHEAD SETTER-C 06/02/22 09:58 Subjective Subjective Patient seen and examined. Feels breathing feels somewhat improved this morning. States he slept well overnight. In good spirits. Denies other symptoms or complaints. Remains on Airvo. Objective Data Objective Data Vital Signs: Vital Signs Temp Pulse Resp BP Pulse Ox O2 Del Method O2 Flow Rate 97.8 F 68 18 137/90 H 92 Airvo 40 06/02/22 09:04 06/02/22 09:10 06/02/22 09:04 06/02/22 09:10 06/02/22 09:28 06/02/22 09:28 06/02/22 09:28 FiO2 91 06/02/22 09:28 Oxygen Flow Rate (L/min) [ 7 AMBULATING with Oxygen #3] Oxygen Flow Rate (L/min) [ 5 AMBULATING with Oxygen #2] Oxygen Flow Rate (L/min) [ 4 AMBULATING with Oxygen #1] Oxygen Flow Rate (L/min) [At 4 REST with Oxygen] Oxygen Flow Rate (L/min) [At 0 REST on Room Air] Oxygen Flow Rate (L/min) 40 Oxygen Delivery Method Airvo Weight: 183 lb 12.79 oz Body Mass Index (BMI) 23.6 Intake & Output: Intake and Output for Last 24 Hours 05/31/22 06/01/22 06/02/22 23:59 23:59 23:59 Intake Total 2530 / 2880 2715 / 2715 635 / 635 Output Total 3350 / 3775 3475 / 3475 325 / 325 Balance -820 / -895 -760 / -760 310 / 310 Lab / Micro Data Result Diagrams: 06/02/22 05:33 06/02/22 05:33 Labs: Laboratory Results - last 24 hr 06/02/22 05:33: WBC 22.6 H, RBC 4.24 L, Hgb 14.0, Hct 41.4, MCV 97.6 H, MCH 33.0 H, MCHC 33.8, RDW Std Deviation 48.1 H, RDW Coeff of [place] 13.5, Plt Count 475 H, MPV 10.1, Immature Gran % (Auto) 1.500 H, Neut % (Auto) 89.7 H, Lymph % (Auto) 3.7 L, [place] % (Auto) 4.9, Eos % (Auto) 0.0, Baso % (Auto) 0.2, Absolute Neuts (auto) 20.3 H, Absolute Lymphs (auto) 0.83, Nucleated RBC % 0, Anisocytosis 1+, Macrocytosis 1+ 06/02/22 05:33: Sodium 137, Potassium 4.7, Chloride 107, Carbon Dioxide 27.0, Anion Gap 3 L, BUN 29 H, Creatinine 0.72, Estim Creat Clear Calc 84.48, Est GFR (MDRD) Af Amer 141, Est GFR (MDRD) Non-Af 117, BUN/Creatinine Ratio 40.5 H, Glucose 161 H, Calcium 8.2 L Micro: Microbiology 05/30/22 20:44 Sputum, Expectorated/Coughed Gram Stain - Final 05/30/22 20:44 Sputum, Expectorated/Coughed Respiratory Culture - Final Presumptive C albicans 05/26/22 07:44 Mucosa - Nasopharyngeal Respiratory Panel (PCR) - Final 05/25/22 21:15 Urine Catheter - Catheter Legionella Antigen - Final 05/25/22 21:15 Urine Catheter - Catheter Streptococcus pneumoniae Antigen (M - Final 05/25/22 19:20 Nasal Secretion SARS-CoV-2 Antigen (Rapid) - Final Physical Exam Const alert and oriented x3 HEENT normocephalic and moist oral mucous membranes Eyes PERRL, EOMs intact bilaterally and conjunctivae normal Neck no lymphadenopathy Resp clear to auscultation bilaterally Auscultation: diminished lung sounds Cardio regular rate, regular rhythm and no murmurs Peripheral Pulses: pulses 2+ throughout GI normal to inspection, nondistended, normoactive bowel sounds, non-tender and non-distended Extremity normal to inspection Skin no rashes or lesions noted Lesions: no lesions Rashes: no rashes Trauma: no lacerations or abrasions Neuro CN's II-XII intact bilaterally, no focal motor deficits, no sensory deficits noted and deep tendon reflexes 2+ bilaterally Psych mental status grossly normal and affect normal Assessment & Plan Assessment/Plan (1) Acute hypoxemic respiratory failure: PLAN: Plan 1.? Acute hypoxic respiratory failure secondary to bilateral community-acquired pneumonia and acute on chronic heart failure with reduced ejection fraction-IV Zosyn and IV Vanc. Albuterol and DuoNeb aerosols.? Urine for strep and Legionella negative.? Requiring high flow oxygen/Airvo.? Pulmonary medicine consulted. CTA without PE, bilateral pulmonary infiltrates.? Will need referral to pulmonary medicine at discharge for PFTs/outpatient follow-up given extensive smoking history.? Continue IV Solu-Medrol per pulmonary. Sputum culture pending. 2. Acute on chronic heart failure with reduced ejection fraction/ischemic cardiomyopathy- Echocardiogram completed and demonstrates an EF of 35%, stage I diastolic dysfunction. Continue IV Lasix. Strict I&O. Daily weight 3. History of paroxysmal ventricular tachycardia status post AICD-on amiodarone.? 4. Vertigo with presyncope-brain CT negative.? As needed meclizine.? Echo with EF 35%, stage I diastolic dysfunction.? Previous orthostatic vitals positive, repeat improved however still positive.? Hold off on further fluids.? PARMINDER hose ordered. 5. Hypertension-stable, continue metoprolol. 6. Hypokalemia-resolved. 7. CAD-continue aspirin, Plavix, metoprolol.? Allergy to statin. 8. Depression/anxiety-paroxetine. 9. Tobacco dependence-encouraged cessation. 10. History of alcoholism-denies recent use. 11. Generalized weakness- PT/OT.? Possible SNF.? Social work following. DVT prophylaxis-Lovenox sc This patient was seen by HI Dubose under the supervision of Dr. Linder. Time spent examining patient, reviewing data and subsequent management of care: 12 minutes Documented by User: Dr. Sunny Linder MD 06/02/22 13:10 Subjective Subjective Patient seen and examined. Feels breathing feels somewhat improved this morning. States he slept well overnight. In good spirits. Denies other symptoms or complaints. Remains on Airvo. Follow-up for acute hypoxic respiratory failure. Bilateral pneumonia. Patient subjectively feels better. Remains on Airvo. No dyspnea at rest. Objective Data Lab / Micro Data Result Diagrams: 06/02/22 05:33 07/31/22 05:33 Physical Exam Narrative Seen and examined Physical exam General: Alert, Oriented x3, Cooperative HEENT: Atraumatic, PERRLA, EOMI, Normocephalic Oral: No Gingival or Mucosal Lesions/ Ulcerations Neck: Supple, No JVD, Negative Carotid Bruits Lungs: Air entry diminished in bilateral lung bases. Dyspnea on exertion. No crepitation/rhonchi on AIRVO. Cardiovascular: Regular rate, Regular Rhythm, Normal S1, Normal S2, No murmurs, left subclavicular AICD Abdomen: Bowel Sounds Present, Soft, Non Tender, Non-Distended : No renal angle tenderness. No suprapubic tenderness. Extremities: No edema, Capillary Refill Less than 3 Seconds Skin: No rashes, No breakdown Musculoskeletal: No Tenderness to Palpation of Joints or Extremities Neurological: Cranial nerves II-XII grossly intact, DTR 2+/4 and Symmetrical, Neuro grossly intact Psych/Mental Status: Normal Affect, Appropriate. Assessment & Plan Assessment/Plan (1) Acute hypoxemic respiratory failure: PLAN: Plan 1.? Acute hypoxic respiratory failure secondary to bilateral community-acquired pneumonia and acute on chronic heart failure with reduced ejection fraction-IV Zosyn and IV Vanc. Albuterol and DuoNeb aerosols.? Urine for strep and Legionella negative.? Requiring high flow oxygen/Airvo.? Pulmonary medicine consulted. CTA without PE, bilateral pulmonary infiltrates.? Will need referral to pulmonary medicine at discharge for PFTs/outpatient follow-up given extensive smoking history.? Continue IV Solu-Medrol per pulmonary. Sputum culture pending. 2. Acute on chronic heart failure with reduced ejection fraction/ischemic cardiomyopathy- Echocardiogram completed and demonstrates an EF of 35%, stage I diastolic dysfunction. Continue IV Lasix. Strict I&O. Daily weight 3. History of paroxysmal ventricular tachycardia status post AICD-on amiodarone.? 4. Vertigo with presyncope-brain CT negative.? As needed meclizine.? Echo with EF 35%, stage I diastolic dysfunction.? Previous orthostatic vitals positive, repeat improved however still positive.? Hold off on further fluids.? PARMINDER hurd ordered. 5. Hypertension-stable, continue metoprolol. 6. Hypokalemia-resolved. 7. CAD-continue aspirin, Plavix, metoprolol.? Allergy to statin. 8. Depression/anxiety-paroxetine. 9. Tobacco dependence-encouraged cessation. 10. History of alcoholism-denies recent use. 11. Generalized weakness- PT/OT.? Possible SNF.? Social work following. DVT prophylaxis-Lovenox sc This patient was seen by HI Dubose under the supervision of Dr. Linder. Time spent examining patient, reviewing data and subsequent management of care: 12 minutes This patient was seen in conjunction with NAILHEAD SETTERRosa.? I have independently interviewed and examined the patient and reviewed pertinent history, examination findings, laboratory and plan of management.? I have? reviewed the note and agree with the documented findings with the few? additional points. In brief, patient is 67-year-old male with history of coronary artery disease, CHF status post AICD in October 2017 admitted with shortness of breath.? Patient still short of breath, dyspnea at rest.? Complain of chest heaviness/pressure.? On 6 L of oxygen.? CT chest individually reviewed and shows bilateral peripheral infiltrates worse in right lower lung lobe.? Echo shows EF 35% stage I diastolic dysfunction.? Initially, patient was started on IV ceftriaxone and Zithromax but patient started having expected resolution of hypoxia therefore started on broad-spectrum antibiotic, Zosyn.? 05/30: Nurse Supervisor consult requested and appreciated.? CTA does not show PE but bilateral multiple pulmonary infiltrates.? Vancomycin added. Patient has allergy with iodine therefore premedicated with Solu-Medrol and Benadryl.? Agreed with diuresis 05/31: Solu-Medrol 40 mg every 8 hourly added.? Patient refusing for BiPAP.? Antibiotic to continue. 06/01: Mild improvement as patient is not short of breath or dyspneic at rest.? Continue antibiotic treatment.? Pulmonary follow-up reviewed 06/02: Mild improvement in dyspnea. Continue high-dose IV Solu-Medrol, bronchodilator, antibiotic treatment, incentive spirometry. Coronary artery disease with ischemic cardiomyopathy, CHF class III status post AICD: Patient on amiodarone.? Empirically Lasix.? BNP elevated.? I still do not think patient has acute heart failure but chronic heart failure. ?Patient had vertigo and near syncope and positive orthostatic signs.? CT head negative. Rest of the comorbidities as mentioned above Total time of the visit including total time spent in counseling or coordination of care, (more than 50% of the total time, spent in obtaining medical information from nurses and other ancillary care providers,explaining to the patient about labs, imaging, diagnosis and management), pulmonary consult, review of labs and imaging is 30 minutes, I spent 18 minutes, NICHOLE Lee I spent 12 minutes I have discussed my assessment with NAILHEAD SETTERRosa and orders have been reviewed. Charges/Coding Visit Charges Inpatient E&M: 53184 Subs Hosp L2
[2022-06-02] MEDS: 0.9% Saline Lock 10 ML Syringe IV ×3 (17:59→23:02)
[2022-06-03] VITALS (22 sets, daily range): BP systolic 118–140; BP diastolic 62–69; PULSE 56–69; RESP 16–26; TEMP 36.4–36.8; O2SAT 82–96
[2022-06-03 02:50] LABS: Vancomycin, Trough Level 20.7 ug/mL (5.0-15.0)
--- NOTE | 2022-06-03 03:07 | PCM.RX.CS ---
Consult Pharmacy has been consulted to manage selected antiobiotic: Vancomycin Type of Consult: Follow-up Labs: Sodium 137 mmol/L (136-145) 06/02/22 05:33 Potassium 4.7 mmol/L (3.5-5.1) 06/02/22 05:33 Chloride 107 mmol/L (98-107) 06/02/22 05:33 Carbon Dioxide 27.0 mmol/L (21.0-32.0) 06/02/22 05:33 Anion Gap 3 (5-15) L 06/02/22 05:33 BUN 29 mg/dL (7-18) H 06/02/22 05:33 Creatinine 0.72 mg/dL (0.70-1.30) 06/02/22 05:33 Est GFR (MDRD) Af Amer 141 mL/min (>60) 06/02/22 05:33 Est GFR (MDRD) Non-Af 117 mL/min (>60) 06/02/22 05:33 BUN/Creatinine Ratio 40.5 RATIO (10-20) H 06/02/22 05:33 Glucose 161 mg/dL (74-106) H 06/02/22 05:33 Vancomycin Trough 20.7 ug/mL (5.0-15.0) H 06/03/22 01:35 Microbiology: Microbiology 05/30/22 20:44 Sputum, Expectorated/Coughed Gram Stain - Final 05/30/22 20:44 Sputum, Expectorated/Coughed Respiratory Culture - Final Presumptive C albicans 05/26/22 07:44 Mucosa - Nasopharyngeal Respiratory Panel (PCR) - Final 05/25/22 21:15 Urine Catheter - Catheter Legionella Antigen - Final 05/25/22 21:15 Urine Catheter - Catheter Streptococcus pneumoniae Antigen (M - Final 05/25/22 19:20 Nasal Secretion SARS-CoV-2 Antigen (Rapid) - Final Goal Trough: 15-20 mcg/mL Pharmacy Plan for Drug Dosing: VANCOMYCIN LEVEL RECEIVED Current Vancomycin Dose: 1750mg IV Q12hr Number of Doses Received: 3 (of new regimen) Vancomycin Level: 20.7 Hours Since Last Dose: 11hr Renal Function: 0.72 Renal Function Trend: stable Vancomycin Plan/Comments: Patient had a trough drawn which resulted in a value of 20.7 (goal 15-20). The patient's trough retuned slightly higher than goal. Will dc current dose (patient had not gotten 0100 dose yet) and resume vancomycin at a lower dose of 1500mg IV Q12hr to start 06/03/22 @1300 Pending Level: 06/05/22 @0030 Pharmacy Service will continue to monitor and adjust dosing as required.
[2022-06-03 05:48] LABS: Absolute Lymphocyte Count 0.83 X10^3/uL (0.83-4.51); Absolute Neutrophil Count 15.1 X10^3/uL (2.0-7.7); Basophil# 0.03 X10^3/uL; Basophil% 0.2 % (0-1); Hematocrit 39.3 % (40-54); Hemoglobin 13.6 g/dL (13.0-16.5); Lymphocyte # 0.83 X10^3/ul (0.83-4.51); Lymphocyte % 4.8 % (19-41); Mean Corp Hgb Conc 34.6 g/dL (32-36); Mean Corpuscular Hgb 33.3 pg (27.0-32.0); Mean Corpuscular Volume 96.3 fL (80-94); Mean Platelet Vol. 10.1 fl (6.2-12.0); Monocyte# 0.97 X10^3/uL; Monocyte% 5.6 % (0-10); NRBC Flagged by Analyzer 0 % (0-5); Neutrophil # 15.05 X10^3/uL (2.7-7.7); Neutrophil % 87.5 % (47-70); Platelet Count 451 K/mm3 (150-450); RBC Distribution Width CV 13.6 % (11.6-14.6); RBC Distribution Width SD 48.4 fl (35.1-43.9); Red Blood Count 4.08 M/mm3 (4.6-6.2); White Blood Count 17.2 K/mm3 (4.4-11.0)
[2022-06-03 06:12] LABS: Anion Gap 6 (5-15); BUN 39 mg/dL (7-18); BUN/Creat Ratio 48.9 RATIO (10-20); Calcium,Total 8.1 mg/dL (8.5-10.1); Chloride 100 mmol/L (98-107); EST Glomerular Filtration Rate 103 mL/min (>60); Est Glom Filt Rate - Afr Amer 125 mL/min (>60); Glucose 185 mg/dL (74-106); Potassium 4.3 mmol/L (3.5-5.1); Sodium Level 134 mmol/L (136-145)
[2022-06-03] MEDS: Ipratropium/Albuterol Sulfate 3 ML AMPUL.NEB INHALATION ×3 (06:46→15:26)
[2022-06-03] MEDS: Aspirin E.C. 81 MG Tablet PO (07:37)
[2022-06-03] MEDS: Amiodarone 200 MG Tablet PO ×2 (07:50→17:10)
--- NOTE | 2022-06-03 08:27 | PN.CC_ITS ---
Assessment & Plan Assessment/Plan (1) Acute hypoxemic respiratory failure: PLAN: Plan RECOMMENDATIONS: 1. Wean FiO2 for saturations greater than 90%. 2. Continue broad-spectrum antimicrobials, pending finalized culture results. 3. Continue scheduled bronchodilators and IV steroids. 4. Continue diuresis as tolerated by hemodynamics and renal function. 5. Encourage incentive spirometer use and mobilize patient as tolerated. IMPRESSIONS: 1. Multifocal pneumonia with hypoxemia The patient's chest radiographs demonstrate bilateral pneumonia, right greater than left. He has been on Zosyn now during his hospitalization. Patient on vancomycin as he has been positive for MRSA in the past. CTA chest showed no evidence for pulmonary embolism. The patient did have mild obstructive lung disease noted on PFTs several years ago. Accordingly, the patient is going to be continued on scheduled bronchodilators and IV steroids. We will hold on weaning IV steroids given oxygen requirements. Lastly, continue scheduled diuretics as tolerated by hemodynamics and renal function. Patient appears to be tolerating diuretics despite 2-1/2 L out. 2. History of coronary artery disease/ischemic cardiomy opathy/depression/history of tobacco and alcohol dependency in remission Complicates care, management, recovery and prognosis. Continue home medications as indicated. This note was generated with [employer] dictation software. It may contain incorrect words, spelling, and punctuation that were not noted in checking the note before signing. Subjective Subjective Patient did okay overnight. Patient denies any chest pain, abdominal pain, nausea or vomiting. Patient has had a productive cough. Patient has not had any epistaxis, but is requiring Airvo to maintain saturations. Objective Data Objective Data Vital Signs: Vital Signs Temp Pulse Resp BP Pulse Ox O2 Del Method O2 Flow Rate 36.6 C 57 L 26 H 125/62 H 94 Airvo 40 06/03/22 04:48 06/03/22 06:49 06/03/22 06:47 06/03/22 04:48 06/03/22 06:47 06/03/22 07:52 06/03/22 07:52 FiO2 64 06/03/22 06:47 Oxygen Flow Rate (L/min) [ 7 AMBULATING with Oxygen #3] Oxygen Flow Rate (L/min) [ 5 AMBULATING with Oxygen #2] Oxygen Flow Rate (L/min) [ 4 AMBULATING with Oxygen #1] Oxygen Flow Rate (L/min) [At 4 REST with Oxygen] Oxygen Flow Rate (L/min) [At 0 REST on Room Air] Oxygen Flow Rate (L/min) 40 Oxygen Delivery Method Airvo Weight: 83.37 kg Body Mass Index (BMI) 23.6 Intake & Output: Intake and Output for Last 24 Hours 06/01/22 06/02/22 06/03/22 23:59 23:59 23:59 Intake Total 2715 / 2715 2130 / 2130 50 / 50 Output Total 3475 / 3475 3375 / 3375 1100 / 1100 Balance -760 / -760 -1245 / -1245 -1050 / -1050 Lab / Micro Data Result Diagrams: 06/03/22 05:10 06/03/22 05:10 Labs: Laboratory Results - last 24 hr 06/03/22 01:35: Vancomycin Trough 20.7 H 06/03/22 05:10: WBC 17.2 H, RBC 4.08 L, Hgb 13.6, Hct 39.3 L, MCV 96.3 H, MCH 33.3 H, MCHC 34.6, RDW Std Deviation 48.4 H, RDW Coeff of [place] 13.6, Plt Count 451 H, MPV 10.1, Immature Gran % (Auto) 1.900 H, Neut % (Auto) 87.5 H, Lymph % (Auto) 4.8 L, [place] % (Auto) 5.6, Eos % (Auto) 0.0, Baso % (Auto) 0.2, Absolute Neuts (auto) 15.1 H, Absolute Lymphs (auto) 0.83, Nucleated RBC % 0 06/03/22 05:10: Sodium 134 L, Potassium 4.3, Chloride 100, Carbon Dioxide 28.0, Anion Gap 6, BUN 39 H, Creatinine 0.80, Estim Creat Clear Calc 105.60, Est GFR (MDRD) Af Amer 125, Est GFR (MDRD) Non-Af 103, BUN/Creatinine Ratio 48.9 H, Glucose 185 H, Calcium 8.1 L Micro: Microbiology 05/30/22 20:44 Sputum, Expectorated/Coughed Gram Stain - Final 05/30/22 20:44 Sputum, Expectorated/Coughed Respiratory Culture - Final Presumptive C albicans 05/26/22 07:44 Mucosa - Nasopharyngeal Respiratory Panel (PCR) - Final 05/25/22 21:15 Urine Catheter - Catheter Legionella Antigen - Final 05/25/22 21:15 Urine Catheter - Catheter Streptococcus pneumoniae Antigen (M - Final 05/25/22 19:20 Nasal Secretion SARS-CoV-2 Antigen (Rapid) - Final Physical Exam Const alert, oriented x3 and no apparent distress Constitutional Narrative: Airvo cannula in place. General Appearance: cooperative HEENT normocephalic and head/scalp atraumatic Eyes PERRL, EOMs intact bilaterally and conjunctivae normal Neck supple General: trachea midline Chest inspection of chest normal Resp normal respiratory effort Auscultation: diminished lung sounds; Negative for rales, rhonchi or wheezes Cardio regular rate and regular rhythm GI normal to inspection, nondistended, normoactive bowel sounds Extremity no clubbing, cyanosis or edema Skin no rashes or lesions noted Neuro CN's II-XII intact bilaterally, moves all extremities and no focal motor deficits Psych Mood & Affect: flat affect Charges/Coding Visit Charges Inpatient E&M: 46412 Subs Hosp L3
--- NOTE | 2022-06-03 09:53 | PCM.PN.HOSP ---
Documented by User: Rosa Marie NP, DECKHAND OYSTER DREDGE-C 06/03/22 10:00 Subjective Subjective Patient seen and examined. Requesting something at bedtime for sleep. Denies worsening shortness of breath. Denies fever, chills. Objective Data Objective Data Vital Signs: Vital Signs Temp Pulse Resp BP Pulse Ox O2 Del Method O2 Flow Rate 97.9 F 57 L 26 H 125/62 H 94 Airvo 40 06/03/22 04:48 06/03/22 06:49 06/03/22 06:47 06/03/22 04:48 06/03/22 06:47 06/03/22 07:52 06/03/22 07:52 FiO2 64 06/03/22 06:47 Oxygen Flow Rate (L/min) [ 7 AMBULATING with Oxygen #3] Oxygen Flow Rate (L/min) [ 5 AMBULATING with Oxygen #2] Oxygen Flow Rate (L/min) [ 4 AMBULATING with Oxygen #1] Oxygen Flow Rate (L/min) [At 4 REST with Oxygen] Oxygen Flow Rate (L/min) [At 0 REST on Room Air] Oxygen Flow Rate (L/min) 40 Oxygen Delivery Method Airvo Weight: 183 lb 12.79 oz Body Mass Index (BMI) 23.6 Intake & Output: Intake and Output for Last 24 Hours 06/01/22 06/02/22 06/03/22 23:59 23:59 23:59 Intake Total 2715 / 2715 2130 / 2130 50 / 50 Output Total 3475 / 3475 3375 / 3375 1100 / 1100 Balance -760 / -760 -1245 / -1245 -1050 / -1050 Lab / Micro Data Result Diagrams: 06/03/22 05:10 06/03/22 05:10 Labs: Laboratory Results - last 24 hr 06/03/22 01:35: Vancomycin Trough 20.7 H 06/03/22 05:10: WBC 17.2 H, RBC 4.08 L, Hgb 13.6, Hct 39.3 L, MCV 96.3 H, MCH 33.3 H, MCHC 34.6, RDW Std Deviation 48.4 H, RDW Coeff of Yoli 13.6, Plt Count 451 H, MPV 10.1, Immature Gran % (Auto) 1.900 H, Neut % (Auto) 87.5 H, Lymph % (Auto) 4.8 L, [place] % (Auto) 5.6, Eos % (Auto) 0.0, Baso % (Auto) 0.2, Absolute Neuts (auto) 15.1 H, Absolute Lymphs (auto) 0.83, Nucleated RBC % 0 06/03/22 05:10: Sodium 134 L, Potassium 4.3, Chloride 100, Carbon Dioxide 28.0, Anion Gap 6, BUN 39 H, Creatinine 0.80, Estim Creat Clear Calc 105.60, Est GFR (MDRD) Af Amer 125, Est GFR (MDRD) Non-Af 103, BUN/Creatinine Ratio 48.9 H, Glucose 185 H, Calcium 8.1 L Micro: Microbiology 05/30/22 20:44 Sputum, Expectorated/Coughed Gram Stain - Final 05/30/22 20:44 Sputum, Expectorated/Coughed Respiratory Culture - Final Presumptive C albicans 05/26/22 07:44 Mucosa - Nasopharyngeal Respiratory Panel (PCR) - Final 05/25/22 21:15 Urine Catheter - Catheter Legionella Antigen - Final 05/25/22 21:15 Urine Catheter - Catheter Streptococcus pneumoniae Antigen (M - Final 05/25/22 19:20 Nasal Secretion SARS-CoV-2 Antigen (Rapid) - Final Physical Exam Const alert and oriented x3 HEENT normocephalic and moist oral mucous membranes Eyes PERRL, EOMs intact bilaterally and conjunctivae normal Neck no lymphadenopathy Resp clear to auscultation bilaterally Auscultation: diminished lung sounds Cardio regular rate, regular rhythm and no murmurs Peripheral Pulses: pulses 2+ throughout GI normal to inspection, nondistended, normoactive bowel sounds, non-tender and non-distended Extremity normal to inspection Skin no rashes or lesions noted Lesions: no lesions Rashes: no rashes Trauma: no lacerations or abrasions Neuro CN's II-XII intact bilaterally, no focal motor deficits, no sensory deficits noted and deep tendon reflexes 2+ bilaterally Psych mental status grossly normal and affect normal Assessment & Plan Assessment/Plan (1) Acute hypoxemic respiratory failure: PLAN: Plan 1.? Acute hypoxic respiratory failure secondary to bilateral community-acquired pneumonia and acute on chronic heart failure with reduced ejection fraction-IV Zosyn and IV Vanc. Albuterol and DuoNeb aerosols.? Urine for strep and Legionella negative.? Requiring high flow oxygen/Airvo.? Pulmonary medicine consulted. CTA without PE, bilateral pulmonary infiltrates.? Will need referral to pulmonary medicine at discharge for PFTs/outpatient follow-up given extensive smoking history.? Continue IV Solu-Medrol per pulmonary.? Sputum culture from 05/30 grew rare presumptive albicans. 2.? Acute on chronic heart failure with reduced ejection fraction/ischemic cardiomyopathy- Echocardiogram completed and demonstrates an EF of 35%, stage I diastolic dysfunction.? Continue IV Lasix.? Strict I&O.? Daily weight 3. History of paroxysmal ventricular tachycardia status post AICD-on amiodarone.? 4. Vertigo with presyncope-brain CT negative.? As needed meclizine.? Echo with EF 35%, stage I diastolic dysfunction.? Previous orthostatic vitals positive, repeat improved however still positive.? Hold off on further fluids.? PARMINDER hose ordered. 5. Hypertension-stable, continue metoprolol. 6. Hypokalemia-resolved. 7. CAD-continue aspirin, Plavix, metoprolol.? Allergy to statin. 8. Depression/anxiety-paroxetine. 9. Tobacco dependence-encouraged cessation. 10. History of alcoholism-denies recent use. 11. Generalized weakness- PT/OT.? Likely SNF at [place].? Social work following. DVT prophylaxis-Lovenox sc This patient was seen by HI Dubose under the supervision of Dr. Linder. Time spent examining patient, reviewing data and subsequent management of care: 12 minutes Documented by User: Dr. Sunny Linder MD 06/03/22 16:10 Subjective Subjective Patient seen and examined. Requesting something at bedtime for sleep. Denies worsening shortness of breath. Denies fever, chills. Seen and examined. Patient on air Vo, 50% FiO2 transition to nasal cannula 7 L. Objective Data Lab / Micro Data Result Diagrams: 06/03/22 05:10 06/03/22 05:10 Labs: Laboratory Results - last 24 hr 06/03/22 01:35: Vancomycin Trough 20.7 H 06/03/22 05:10: WBC 17.2 H, RBC 4.08 L, Hgb 13.6, Hct 39.3 L, MCV 96.3 H, MCH 33.3 H, MCHC 34.6, RDW Std Deviation 48.4 H, RDW Coeff of Yoli 13.6, Plt Count 451 H, MPV 10.1, Immature Gran % (Auto) 1.900 H, Neut % (Auto) 87.5 H, Lymph % (Auto) 4.8 L, [place] % (Auto) 5.6, Eos % (Auto) 0.0, Baso % (Auto) 0.2, Absolute Neuts (auto) 15.1 H, Absolute Lymphs (auto) 0.83, Nucleated RBC % 0 06/03/22 05:10: Sodium 134 L, Potassium 4.3, Chloride 100, Carbon Dioxide 28.0, Anion Gap 6, BUN 39 H, Creatinine 0.80, Estim Creat Clear Calc 105.60, Est GFR (MDRD) Af Amer 125, Est GFR (MDRD) Non-Af 103, BUN/Creatinine Ratio 48.9 H, Glucose 185 H, Calcium 8.1 L Physical Exam Narrative Seen and examined Physical exam General: Alert, Oriented x3, Cooperative HEENT: Atraumatic, PERRLA, EOMI, Normocephalic Oral: No Gingival or Mucosal Lesions/ Ulcerations Neck: Supple, No JVD, Negative Carotid Bruits Lungs: Air entry diminished in bilateral lung bases. Dyspnea on exertion improving. No crepitation/rhonchi on O2 NC Cardiovascular: Regular rate, Regular Rhythm, Normal S1, Normal S2, No murmurs, left subclavicular AICD Abdomen: Bowel Sounds Present, Soft, Non Tender, Non-Distended : No renal angle tenderness. No suprapubic tenderness. Extremities: No edema, Capillary Refill Less than 3 Seconds Skin: No rashes, No breakdown Musculoskeletal: No Tenderness to Palpation of Joints or Extremities Neurological: Cranial nerves II-XII grossly intact, DTR 2+/4 and Symmetrical, Neuro grossly intact Psych/Mental Status: Normal Affect, Appropriate. Assessment & Plan Assessment/Plan (1) Acute hypoxemic respiratory failure: PLAN: Plan 1.? Acute hypoxic respiratory failure secondary to bilateral community-acquired pneumonia and acute on chronic heart failure with reduced ejection fraction-IV Zosyn and IV Vanc. Albuterol and DuoNeb aerosols.? Urine for strep and Legionella negative.? Requiring high flow oxygen/Airvo.? Pulmonary medicine consulted. CTA without PE, bilateral pulmonary infiltrates.? Will need referral to pulmonary medicine at discharge for PFTs/outpatient follow-up given extensive smoking history.? Continue IV Solu-Medrol per pulmonary.? Sputum culture from 05/30 grew rare presumptive albicans. 2.? Acute on chronic heart failure with reduced ejection fraction/ischemic cardiomyopathy- Echocardiogram completed and demonstrates an EF of 35%, stage I diastolic dysfunction.? Continue IV Lasix.? Strict I&O.? Daily weight 3. History of paroxysmal ventricular tachycardia status post AICD-on amiodarone.? 4. Vertigo with presyncope-brain CT negative.? As needed meclizine.? Echo with EF 35%, stage I diastolic dysfunction.? Previous orthostatic vitals positive, repeat improved however still positive.? Hold off on further fluids.? PARMINDER hose ordered. 5. Hypertension-stable, continue metoprolol. 6. Hypokalemia-resolved. 7. CAD-continue aspirin, Plavix, metoprolol.? Allergy to statin. 8. Depression/anxiety-paroxetine. 9. Tobacco dependence-encouraged cessation. 10. History of alcoholism-denies recent use. 11. Generalized weakness- PT/OT.? Likely SNF at [place].? Social work following. DVT prophylaxis-Lovenox sc This patient was seen by MAHAMED DuboseC under the supervision of Dr. Linder. Time spent examining patient, reviewing data and subsequent management of care: 12 minutes This patient was seen in conjunction with Rosa VARELA.? I have independently interviewed and examined the patient and reviewed pertinent history, examination findings, laboratory and plan of management.? I have? reviewed the note and agree with the documented findings with the few? additional points. In brief, patient is 67-year-old male with history of coronary artery disease, CHF status post AICD in October 2017 admitted with shortness of breath.? Patient still short of breath, dyspnea at rest.? Complain of chest heaviness/pressure.? On 6 L of oxygen.? CT chest individually reviewed and shows bilateral peripheral infiltrates worse in right lower lung lobe.? Echo shows EF 35% stage I diastolic dysfunction.? Initially, patient was started on IV ceftriaxone and Zithromax but patient started having expected resolution of hypoxia therefore started on broad-spectrum antibiotic, Zosyn.? 05/30: Feed House Supervisor consult requested and appreciated.? CTA does not show PE but bilateral multiple pulmonary infiltrates.? Vancomycin added. Patient has allergy with iodine therefore premedicated with Solu-Medrol and Benadryl.? Agreed with diuresis 05/31: Solu-Medrol 40 mg every 8 hourly added.? Patient refusing for BiPAP.? Antibiotic to continue. 06/01: Mild improvement as patient is not short of breath or dyspneic at rest.? Continue antibiotic treatment.? Pulmonary follow-up reviewed 06/02: Mild improvement in dyspnea.? Continue high-dose IV Solu-Medrol, bronchodilator, antibiotic treatment, incentive spirometry. 06/03: Patient on Airvo transitioned to nasal cannula. Continue antibiotic. Sputum culture shows presumptive Gissel albicans. Discussed about going to LTAC if patient requires continued Airvo or BiPAP. As patient now on nasal cannula therefore possible to SNF. Discussed with the correctional case records supervisor. Feed House Supervisor follow-up reviewed. Coronary artery disease with ischemic cardiomyopathy, CHF class III status post AICD: Patient on amiodarone.? Empirically Lasix.? BNP elevated.? I still do not think patient has acute heart failure but chronic heart failure. ?Patient had vertigo and near syncope and positive orthostatic signs.? CT head negative. Rest of the comorbidities as mentioned above Total time of the visit including total time spent in counseling or coordination of care, (more than 50% of the total time, spent in obtaining medical information from nurses and other ancillary care providers,explaining to the patient about labs, imaging, diagnosis and management), pulmonary consult, review of labs and imaging is 30 minutes, I spent 18 minutes, NICHOLE Lee I spent 12 minutes Charges/Coding Visit Charges Inpatient E&M: 67034 [facility] Hosp L2
[2022-06-03] MEDS: Clopidogrel Bisulfate 75 MG Tablet PO (10:23)
[2022-06-03] MEDS: PARoxetine 10 MG Tablet 30 MG PO (10:23)
[2022-06-03] MEDS: Enoxaparin 40 MG/0.4 ML Syringe SC (10:23)
[2022-06-03] MEDS: Furosemide 40 MG/4 ML Vial IV ×2 (10:23→21:28)
[2022-06-03] MEDS: Metoprolol(XL)Succ 25 MG Tablet 12.5 MG PO (10:23)
[2022-06-03] MEDS: 0.9% Saline Lock 10 ML Syringe IV ×4 (10:27→23:21)
--- NOTE | 2022-06-03 10:30 | CASEMGMT ---
Addendum entered by Geno Gross 06/03/22 14:20: This RN CM back to room and pt states Can I just have a couple more days? Pt aware of physician recommendations. Pt states has been trying to get sudheer of his brother as he would be the one that needs to take him home from LTACH at discharge. Pt states he would want [place] [facility] and is agreeable to referral being sent but is still hoping for several more days here at [facility]. Referral faxed to [facility]. CM to follow. Tristian GONGORA CM Original Note: This RN CM to room to discuss discharge plan as hospitalist is recommending LTACH as pt is now on airvo. Pt provided with list of LTACH providers including quality and resource use data and consistent with the pt's preferred geographic region, medical needs, and insurance network. CM to f/u. Tristian GONGORA CM
[2022-06-03] MEDS: guaiFENesin 1,200 MG Tablet 1200 MG PO ×2 (10:31→21:29)
--- NOTE | 2022-06-03 20:01 | NURSING ---
pt rang call light for pulse ox alarming. Pt was 82% on NC (oxygen was unpugged from wall). Pt denied feeling any SOB. Plugged in oxygen and bumped up to 10L high flow. pt 95% on 10L.
[2022-06-03] MEDS: DiphenhydrAMINE 25 MG Capsule 50 MG PO (23:21)
[2022-06-04] VITALS (16 sets, daily range): BP systolic 124–145; BP diastolic 58–72; PULSE 55–67; RESP 16–20; TEMP 36.2–36.5; O2SAT 84–99
[2022-06-04 06:28] LABS: Absolute Lymphocyte Count 0.77 X10^3/uL (0.83-4.51); Absolute Neutrophil Count 13.6 X10^3/uL (2.0-7.7); Basophil# 0.04 X10^3/uL; Basophil% 0.3 % (0-1); Hemoglobin 13.4 g/dL (13.0-16.5); Lymphocyte # 0.77 X10^3/ul (0.83-4.51); Lymphocyte % 4.9 % (19-41); Mean Corp Hgb Conc 34.4 g/dL (32-36); Mean Corpuscular Hgb 32.8 pg (27.0-32.0); Mean Corpuscular Volume 95.4 fL (80-94); Mean Platelet Vol. 10.2 fl (6.2-12.0); Monocyte# 0.82 X10^3/uL; Monocyte% 5.2 % (0-10); NRBC Flagged by Analyzer 0 % (0-5); Neutrophil # 13.56 X10^3/uL (2.7-7.7); Neutrophil % 86.4 % (47-70); Platelet Count 458 K/mm3 (150-450); RBC Distribution Width CV 13.5 % (11.6-14.6); RBC Distribution Width SD 47.2 fl (35.1-43.9); Red Blood Count 4.09 M/mm3 (4.6-6.2); White Blood Count 15.7 K/mm3 (4.4-11.0)
[2022-06-04 07:00] LABS: Anion Gap 4 (5-15); BUN 41 mg/dL (7-18); BUN/Creat Ratio 53.2 RATIO (10-20); Calcium,Total 8.1 mg/dL (8.5-10.1); Chloride 100 mmol/L (98-107); Creatinine, Serum 0.77 mg/dL (0.70-1.30); EST Glomerular Filtration Rate 107 mL/min (>60); Est Glom Filt Rate - Afr Amer 130 mL/min (>60); Estimated Creatinine Clearance 84.48 ml/min; Glucose 196 mg/dL (74-106); Potassium 4.2 mmol/L (3.5-5.1); Sodium Level 134 mmol/L (136-145)
[2022-06-04] MEDS: Ipratropium/Albuterol Sulfate 3 ML AMPUL.NEB INHALATION ×4 (07:25→19:07)
[2022-06-04] MEDS: guaiFENesin 1,200 MG Tablet 1200 MG PO ×2 (08:34→21:08)
[2022-06-04] MEDS: Aspirin E.C. 81 MG Tablet PO (08:34)
[2022-06-04] MEDS: Furosemide 40 MG/4 ML Vial IV (08:34)
[2022-06-04] MEDS: PARoxetine 10 MG Tablet 30 MG PO (08:34)
[2022-06-04] MEDS: Clopidogrel Bisulfate 75 MG Tablet PO (08:34)
[2022-06-04] MEDS: Amiodarone 200 MG Tablet PO ×2 (08:34→16:57)
[2022-06-04] MEDS: Metoprolol(XL)Succ 25 MG Tablet 12.5 MG PO (08:35)
[2022-06-04] MEDS: Enoxaparin 40 MG/0.4 ML Syringe SC (08:39)
--- NOTE | 2022-06-04 08:52 | PCM.PN.INT ---
Assessment & Plan Assessment/Plan (1) Acute hypoxemic respiratory failure: PLAN: Plan RECOMMENDATIONS: 1. Wean FiO2 for saturations greater than 90%. 2. Continue broad-spectrum antimicrobials, pending finalized culture results. No need to treat C albicans 3. Continue scheduled bronchodilators, but wean IV steroids. 4. Continue diuresis as tolerated by hemodynamics and renal function. 5. Encourage incentive spirometer use and mobilize patient as tolerated. IMPRESSIONS: 1. Multifocal pneumonia with hypoxemia Significantly improved compared to yesterday. The patient's chest radiographs demonstrate bilateral pneumonia, right greater than left. He has been on Zosyn now during his hospitalization. Patient on vancomycin as he has been positive for MRSA in the past. CTA chest showed no evidence for pulmonary embolism. The patient did have mild obstructive lung disease noted on PFTs several years ago. Accordingly, the patient is going to be continued on scheduled bronchodilators, but will wean IV steroids. Lastly, continue scheduled diuretics as tolerated by hemodynamics and renal function. Patient appears to be tolerating diuretics despite 1 L out. 2. History of coronary artery disease/ischemic cardiomyopathy/depression/history of tobacco and alcohol dependency in remission Complicates care, management, recovery and prognosis. Continue home medications as indicated. This note was generated with Torbit dictation software. It may contain incorrect words, spelling, and punctuation that were not noted in checking the note before signing. Subjective Subjective Patient overall feels subjectively improved compared to yesterday. Patient continues to have a cough and reports some production. Patient believes this is improving. Patient was able to make it to the chair yesterday and felt that this was helpful. Objective Data Objective Data Vital Signs: Vital Signs Temp Pulse Resp BP Pulse Ox O2 Del Method O2 Flow Rate 36.3 C L 65 20 H 130/72 H 93 High Flow 8 06/04/22 03:41 06/04/22 08:35 06/04/22 07:26 06/04/22 08:35 06/04/22 07:26 06/04/22 07:26 06/04/22 07:26 FiO2 40 06/03/22 16:10 Oxygen Flow Rate (L/min) [ 7 AMBULATING with Oxygen #3] Oxygen Flow Rate (L/min) [ 5 AMBULATING with Oxygen #2] Oxygen Flow Rate (L/min) [ 4 AMBULATING with Oxygen #1] Oxygen Flow Rate (L/min) [At 4 REST with Oxygen] Oxygen Flow Rate (L/min) [At 0 REST on Room Air] Oxygen Flow Rate (L/min) 8 Oxygen Delivery Method High Flow Weight: 83.37 kg Body Mass Index (BMI) 23.6 Intake & Output: Intake and Output for Last 24 Hours 06/02/22 06/03/22 06/04/22 23:59 23:59 23:59 Intake Total 2130 / 2130 1900 / 1900 580 / 580 Output Total 3375 / 3375 3625 / 3625 850 / 850 Balance -1245 / -1245 -1725 / -1725 -270 / -270 Lab / Micro Data Attestation: I reviewed the patient's lab results. Result Diagrams: 06/04/22 05:35 06/04/22 05:35 Labs: Laboratory Results - last 24 hr 06/04/22 05:35: WBC 15.7 H, RBC 4.09 L, Hgb 13.4, Hct 39.0 L, MCV 95.4 H, MCH 32.8 H, MCHC 34.4, RDW Std Deviation 47.2 H, RDW Coeff of Yoli 13.5, Plt Count 458 H, MPV 10.2, Immature Gran % (Auto) 3.200 H, Neut % (Auto) 86.4 H, Lymph % (Auto) 4.9 L, [place] % (Auto) 5.2, Eos % (Auto) 0.0, Baso % (Auto) 0.3, Absolute Neuts (auto) 13.6 H, Absolute Lymphs (auto) 0.77 L, Nucleated RBC % 0 06/04/22 05:35: Sodium 134 L, Potassium 4.2, Chloride 100, Carbon Dioxide 30.0, Anion Gap 4 L, BUN 41 H, Creatinine 0.77, Estim Creat Clear Calc 84.48, Est GFR (MDRD) Af Amer 130, Est GFR (MDRD) Non-Af 107, BUN/Creatinine Ratio 53.2 H, Glucose 196 H, Calcium 8.1 L Micro: Microbiology 05/30/22 20:44 Sputum, Expectorated/Coughed Gram Stain - Final 05/30/22 20:44 Sputum, Expectorated/Coughed Respiratory Culture - Final Presumptive C albicans 05/26/22 07:44 Mucosa - Nasopharyngeal Respiratory Panel (PCR) - Final 05/25/22 21:15 Urine Catheter - Catheter Legionella Antigen - Final 05/25/22 21:15 Urine Catheter - Catheter Streptococcus pneumoniae Antigen (M - Final 05/25/22 19:20 Nasal Secretion SARS-CoV-2 Antigen (Rapid) - Final Physical Exam Const alert, oriented x3 and no apparent distress Constitutional Narrative: Airvo cannula in place. General Appearance: cooperative HEENT normocephalic and head/scalp atraumatic Eyes PERRL, EOMs intact bilaterally and conjunctivae normal Neck supple General: trachea midline Chest inspection of chest normal Resp normal respiratory effort Auscultation: diminished lung sounds; Negative for rales, rhonchi or wheezes Cardio regular rate and regular rhythm GI normal to inspection, nondistended, normoactive bowel sounds Extremity no clubbing, cyanosis or edema Skin no rashes or lesions noted Neuro CN's II-XII intact bilaterally, moves all extremities and no focal motor deficits Psych Mood & Affect: flat affect Charges/Coding Visit Charges Inpatient E&M: 98001 Subs Hosp L3
--- NOTE | 2022-06-04 10:22 | CASEMGMT ---
Addendum entered by Geno Gross 06/04/22 10:57: Ruma GONGORA aware to do ambulatory pulse ox for SNF placement. Tristian GONGORA CM Original Note: Pt now down to 6-8L so hospitalist states no need for LTACH, pt can go to SNF. Call to Anna at [facility] to update, voices understanding. SW into room to speak with pt regarding SNF choices. Tristian GONGORA CM
--- NOTE | 2022-06-04 10:52 | CASEMGMT ---
Addendum entered by Geno Dominguez 06/04/22 11:14: SW received call from Kaci at [facility], they can accommodate up to 10 Liters. Original Note: Social Work Note SW in to speak with pt regarding SNF. Pt agreeable to SNF. SW reviewed SNF list with pt. Pt states that he would like to stay in [place]. Pt states that he would like to review list at lunch and request that this SW return later this afternoon. SW asked pt to have 2-3 options for SNF for this worker. Pt states that he has been to [facility] before and does not want to return there. SW called the SNF in [place] to inquire about Oxygen and what is the Max liters they an accommodate. SW did not provide any information to SNF regarding pt. [facility]: ROLANDO called and left message [place]: They can accommodate up to 10 liters Oxygen [facility]: Can accommodate up to 6 liters [facility]: SW called and left message. SW waiting for call back from the other two SNF facilities. SW also to check in with pt later this afternoon. Plan: SNF Geno Dominguez [employer], [employer]
--- NOTE | 2022-06-04 11:14 | PN.HOSP_ITS ---
Documented by User: Rosa Marie NP, FINISHED STOCK INSPECTOR-C 06/04/22 11:21 Subjective Subjective Patient seen and examined. Breathing improved to this morning. Oxygen decreased from Airvo to 6 L nasal cannula. Patient amenable to SNF at discharge. Objective Data Objective Data Vital Signs: Vital Signs Temp Pulse Resp BP Pulse Ox O2 Del Method O2 Flow Rate 97.1 F L 62 18 130/72 H 92 Nasal Cannula 6 06/04/22 09:45 06/04/22 09:45 06/04/22 09:45 06/04/22 09:45 06/04/22 09:45 06/04/22 09:45 06/04/22 09:45 FiO2 40 06/03/22 16:10 Oxygen Flow Rate (L/min) [ 7 AMBULATING with Oxygen #3] Oxygen Flow Rate (L/min) [ 5 AMBULATING with Oxygen #2] Oxygen Flow Rate (L/min) [ 4 AMBULATING with Oxygen #1] Oxygen Flow Rate (L/min) [At 4 REST with Oxygen] Oxygen Flow Rate (L/min) [At 0 REST on Room Air] Oxygen Flow Rate (L/min) 6 Oxygen Delivery Method Nasal Cannula Weight: 183 lb 12.79 oz Body Mass Index (BMI) 23.6 Intake & Output: Intake and Output for Last 24 Hours 06/02/22 06/03/22 06/04/22 23:59 23:59 23:59 Intake Total 2130 / 2130 1900 / 1900 630 / 630 Output Total 3375 / 3375 3625 / 3625 850 / 850 Balance -1245 / -1245 -1725 / -1725 -220 / -220 Lab / Micro Data Result Diagrams: 06/04/22 05:35 06/04/22 05:35 Labs: Laboratory Results - last 24 hr 06/04/22 05:35: WBC 15.7 H, RBC 4.09 L, Hgb 13.4, Hct 39.0 L, MCV 95.4 H, MCH 32.8 H, MCHC 34.4, RDW Std Deviation 47.2 H, RDW Coeff of Yoli 13.5, Plt Count 458 H, MPV 10.2, Immature Gran % (Auto) 3.200 H, Neut % (Auto) 86.4 H, Lymph % (Auto) 4.9 L, Harney % (Auto) 5.2, Eos % (Auto) 0.0, Baso % (Auto) 0.3, Absolute Neuts (auto) 13.6 H, Absolute Lymphs (auto) 0.77 L, Nucleated RBC % 0 06/04/22 05:35: Sodium 134 L, Potassium 4.2, Chloride 100, Carbon Dioxide 30.0, Anion Gap 4 L, BUN 41 H, Creatinine 0.77, Estim Creat Clear Calc 84.48, Est GFR (MDRD) Af Amer 130, Est GFR (MDRD) Non-Af 107, BUN/Creatinine Ratio 53.2 H, Glucose 196 H, Calcium 8.1 L Micro: Microbiology 06/03/22 17:15 Sputum, Expectorated/Coughed Gram Stain - Final 06/03/22 17:15 Sputum, Expectorated/Coughed Respiratory Culture - Pre liminary Alpha Hemolytic Streptococcus 05/30/22 20:44 Sputum, Expectorated/Coughed Gram Stain - Final 05/30/22 20:44 Sputum, Expectorated/Coughed Respiratory Culture - Final Presumptive C albicans 05/26/22 07:44 Mucosa - Nasopharyngeal Respiratory Panel (PCR) - Final 05/25/22 21:15 Urine Catheter - Catheter Legionella Antigen - Final 05/25/22 21:15 Urine Catheter - Catheter Streptococcus pneumoniae Antigen (M - Final 05/25/22 19:20 Nasal Secretion SARS-CoV-2 Antigen (Rapid) - Final Physical Exam Const alert and oriented x3 HEENT normocephalic and moist oral mucous membranes Eyes PERRL, EOMs intact bilaterally and conjunctivae normal Neck no lymphadenopathy Resp clear to auscultation bilaterally Auscultation: diminished lung sounds Cardio regular rate, regular rhythm and no murmurs Peripheral Pulses: pulses 2+ throughout GI normal to inspection, nondistended, normoactive bowel sounds, non-tender and non-distended Extremity normal to inspection Skin no rashes or lesions noted Lesions: no lesions Rashes: no rashes Trauma: no lacerations or abrasions Neuro CN's II-XII intact bilaterally, no focal motor deficits, no sensory deficits noted and deep tendon reflexes 2+ bilaterally Psych mental status grossly normal and affect normal Assessment & Plan Assessment/Plan (1) Acute hypoxemic respiratory failure: PLAN: Plan 1.? Acute hypoxic respiratory failure secondary to bilateral community-acquired pneumonia and acute on chronic heart failure with reduced ejection fraction-IV Zosyn and IV Vanc. Albuterol and DuoNeb aerosols.? Urine for strep and Legionella negative.? Pulmonary medicine consulted. CTA without PE, bilateral pulmonary infiltrates.? Will need referral to pulmonary medicine at discharge for PFTs/outpatient follow-up given extensive smoking history.? Continue IV So diann-Medrol per pulmonary.? Sputum culture from 05/30 grew rare presumptive albicans. Repeat sputum culture growing alpha hemolytic strep. Oxygen now stable on 6 L nasal cannula. Improved from prior. We will ambulate patient today and assess walking requirements. 2.? Acute on chronic heart failure with reduced ejection fraction/ischemic cardiomyopathy- Echocardiogram completed and demonstrates an EF of 35%, stage I diastolic dysfunction.? Continue IV Lasix.? Strict I&O.? Daily weight 3. History of paroxysmal ventricular tachycardia status post AICD-on amiodarone.? 4. Vertigo with presyncope-brain CT negative.? As needed meclizine.? Echo with EF 35%, stage I diastolic dysfunction.? Previous orthostatic vitals positive, repeat improved however still positive.? Hold off on further fluids.? PARMINDER hose ordered. 5. Hypertension-stable, continue metoprolol. 6. Hypokalemia-resolved. 7. CAD-continue aspirin, Plavix, metoprolol.? Allergy to statin. 8. Depression/anxiety-paroxetine. 9. Tobacco dependence-encouraged cessation. 10. History of alcoholism-denies recent use. 11. Generalized weakness- PT/OT.? Likely SNF at [place].? Social work following. DVT prophylaxis-Lovenox mt This patient was seen by HI Dubose under the supervision of Dr. Linder. Time spent examining patient, reviewing data and subsequent management of care: 12 minutes Documented by User: Dr. Sunny Linder MD 06/04/22 14:29 Subjective Subjective Patient seen and examined. Breathing improved to this morning. Oxygen dec reased from Airvo to 6 L nasal cannula. Patient amenable to SNF at discharge. Seen and examined. Patient oxygenation slightly improved on 6 L of oxygen. Otherwise no major change in respiratory status. Objective Data Lab / Micro Data Result Diagrams: 06/04/22 05:35 06/04/22 05:35 Labs: Laboratory Results - last 24 hr 06/04/22 05:35: WBC 15.7 H, RBC 4.09 L, Hgb 13.4, Hct 39.0 L, MCV 95.4 H, MCH 32.8 H, MCHC 34.4, RDW Std Deviation 47.2 H, RDW Coeff of Yoli 13.5, Plt Count 458 H, MPV 10.2, Immature Gran % (Auto) 3.200 H, Neut % (Auto) 86.4 H, Lymph % (Auto) 4.9 L, Harney % (Auto) 5.2, Eos % (Auto) 0.0, Baso % (Auto) 0.3, Absolute Neuts (auto) 13.6 H, Absolute Lymphs (auto) 0.77 L, Nucleated RBC % 0 06/04/22 05:35: Sodium 134 L, Potassium 4.2, Chloride 100, Carbon Dioxide 30.0, Anion Gap 4 L, BUN 41 H, Creatinine 0.77, Estim Creat Clear Calc 84.48, Est GFR (MDRD) Af Amer 130, Est GFR (MDRD) Non-Af 107, BUN/Creatinine Ratio 53.2 H, Glucose 196 H, Calcium 8.1 L Physical Exam Narrative Seen and examined Physical exam General: Alert, Oriented x3, Cooperative HEENT: Atraumatic, PERRLA, EOMI, Normocephalic Oral: No Gingival or Mucosal Lesions/ Ulcerations Neck: Supple, No JVD, Negative Carotid Bruits Lungs: Air entry diminished in bilateral lung bases. On 6 L of oxygen dyspnea on exertion improving. No crepitation/rhonchi on O2 NC Cardiovascular: Regular rate, Regular Rhythm, Normal S1, Normal S2, No murmurs, left subclavicular AICD Abdomen: Bowel Sounds Present, Soft, Non Tender, Non-Distended : No renal angle tenderness. No suprapubic tenderness. Extremities: No edema, Capillary Refill Less than 3 Seconds Skin: No rashes, No breakdown Musculoskeletal: No Tenderness to Palpation of Joints or Extremities Neurological: Cranial nerves II-XII grossly intact, DTR 2+/4 and Symmetrical, Neuro grossly intact Psych/Mental Status: Normal Affect, Appropriate. Assessment & Plan Assessment/Plan (1) Acute hypoxemic respiratory failure: PLAN: Plan 1.? Acute hypoxic respiratory failure secondary to bilateral community-acquired pneumonia and acute on chronic heart failure with reduced ejection fraction-IV Zosyn and IV Vanc. Albuterol and DuoNeb aerosols.? Urine for strep and Legionella negative.? Pulmonary medicine consulted. CTA without PE, bilateral pulmonary infiltrates.? Will need referral to pulmonary medicine at discharge for PFTs/outpatient follow-up given extensive smoking history.? Continue IV Solu-Medrol per pulmonary.? Sputum culture from 05/30 grew rare presumptive beatriz cans. Repeat sputum culture growing alpha hemolytic strep. Oxygen now stable on 6 L nasal cannula. Improved from prior. We will ambulate patient today and assess walking requirements. 2.? Acute on chronic heart failure with reduced ejection fraction/ischemic cardiomyopathy- Echocardiogram completed and demonstrates an EF of 35%, stage I diastolic dysfunction.? Continue IV Lasix.? Strict I&O.? Daily weight 3. History of paroxysmal ventricular tachycardia status post AICD-on amiodarone.? 4. Vertigo with presyncope-brain CT negative.? As needed meclizine.? Echo with EF 35%, stage I diastolic dysfunction.? Previous orthostatic vitals positive, repeat improved however still positive.? Hold off on further fluids.? PARMINDER hose ordered. 5. Hypertension-stable, continue metoprolol. 6. Hypokalemia-resolved. 7. CAD-continue aspirin, Plavix, metoprolol.? Allergy to statin. 8. Depression/anxiety-paroxetine. 9. Tobacco dependence-encouraged cessation. 10. History of alcoholism-denies recent use. 11. Generalized weakness- PT/OT.? Likely SNF at [place].? Social work following. DVT prophylaxis-Lovenox sc This patient was seen by HI Dubose under the supervision of Dr. Linder. Time spent examining patient, reviewing data and subsequent management of care: 12 minutes This patient was seen in conjunction with Rosa VARELA.? I have independently interviewed and examined the patient and reviewed pertinent history, examination findings, laboratory and plan of management.? I have? reviewed the note and agree with the documented findings with the few? additional points. In brief, patient is 67-year-old male with history of coronary artery disease, CHF status post AICD in October 2017 admitted with shortness of breath.? Patient still short of breath, dyspnea at rest.? Complain of chest heaviness/pressure.? On 6 L of oxygen.? CT chest individually reviewed and shows bilateral peripheral infiltrates worse in right lower lung lobe.? Echo shows EF 35% stage I diastolic dysfunction.? Initially, patient was started on IV ceftriaxone and Zithromax but patient started having expected resolution of hypoxia therefore started on broad-spectrum antibiotic, Zosyn.? 05/30: Medication Coordinator consult requested and appreciated.? CTA does not show PE but bilateral multiple pulmonary infiltrates.? Vancomycin added. Patient has allergy with iodine therefore premedicated with Solu-Medrol and Benadryl.? Agreed with diuresis 05/31: Solu-Medrol 40 mg every 8 hourly added.? Patient refusing for BiPAP.? Antibiotic to continue. 06/01: Mild improvement as patient is not short of breath or dyspneic at rest.? Continue antibiotic treatment.? Pulmonary follow-up reviewed 06/02: Mild improvement in dyspnea.? Continue high-dose IV Solu-Medrol, bronchodilator, antibiotic treatment, incentive spirometry. 06/03: Patient on Airvo transitioned to nasal cannula.? Continue antibiotic.? Sputum culture shows presumptive Gissel albicans.? Discussed about going to LTAC if patient requires continued Airvo or BiPAP.? As patient now on nasal cannula therefore possible to SNF.? Discussed with the shoe caser.? Medication Coordinator follow-up reviewed. 06/04: Patient on 6 L of oxygen persistent. Repeated sputum culture shows alphahemolytic strep group A. Patient on seventh day of IV antibiotic Zosyn. Had fourth day of vancomycin. Vancomycin discontinued. Last day of IV Zosyn. Patient agreeable for SNF discharge. Coronary artery disease with ischemic cardiomyopathy, CHF class III status post AICD: Patient on amiodarone.? Empirically Lasix.? BNP elevated.? I still do not think patient has acute heart failure but chronic heart failure. ?Patient had vertigo and near syncope and positive orthostatic signs.? CT head negative. Rest of the comorbidities as mentioned above Total time of the visit including total time spent in counseling or coordination of care, (more than 50% of the total time, spent in obtaining medical information from nurses and other ancillary care providers,explaining to the p atient about labs, imaging, diagnosis and management), pulmonary consult, review of labs and imaging is 30 minutes, I spent 18 minutes, NICHOLE Lee I spent 12 minutes Charges/Coding Visit Charges Inpatient E&M: 29630 Subs Hosp L2
[2022-06-04] MEDS: 0.9% Saline Lock 10 ML Syringe IV ×2 (14:26→21:09)
--- NOTE | 2022-06-04 14:55 | CASEMGMT ---
Social Work Note SW back in to speak with pt. SW also spoke with OT. Pt walked 3.5 minutes on 10 liters and dropped to 87%. Pt states to try [facility] and then [facility] second. Pt mentioned [facility] or [facility]. SW explained that pt may need longer than 20 days at SNF and if that is the case, he will need to go to a SNF that takes Medicaid as his secondary insurance is Medicaid. Pt again states to try [facility] and [facility]. SW reviewed chart and noticed that he has history of suicidal thoughts. Pt denied any current suicidal/homicidal thoughts/plans/ideations. Pt states none recently. Pt states sometimes towards my brother but thats brother love. Pt denied any current suicidal/homicidal thoughts/plans/ideations. SW informed pt that this worker will send referrals out to [facility] and [facility] and then let him know. Pt states understanding,. SW faxed referrals to both [facility] and [facility]. Geno Dominguez PATIENT SERVICES SPECIALIST, DOCUMENTATION ANALYST
--- NOTE | 2022-06-04 16:40 | CASEMGMT ---
Social Work Note SW received a call from Kaci at [facility] stating they can accept pt as long as pt's oxygen is stable and a little lower. Per previous notes, the highest [facility] can accommodate is 10 liters. Kaci states that they will also like another COVID test. Geno Dominguez PLASMA PROCESSING TECHNICIAN, BRANCH MECHANIC
[2022-06-04] MEDS: DiphenhydrAMINE 25 MG Capsule 50 MG PO (21:12)
[2022-06-05] VITALS (13 sets, daily range): BP systolic 121–138; BP diastolic 62–80; PULSE 56–87; RESP 16–20; TEMP 36.3–36.7; O2SAT 87–95
[2022-06-05 00:54] LABS: Vancomycin, Trough Level 18.9 ug/mL (5.0-15.0)
[2022-06-05 05:41] LABS: Absolute Lymphocyte Count 0.53 X10^3/uL (0.83-4.51); Absolute Neutrophil Count 12.4 X10^3/uL (2.0-7.7); Basophil# 0.04 X10^3/uL; Basophil% 0.3 % (0-1); Hematocrit 37.9 % (40-54); Hemoglobin 13.5 g/dL (13.0-16.5); Lymphocyte # 0.53 X10^3/ul (0.83-4.51); Lymphocyte % 3.7 % (19-41); Mean Corp Hgb Conc 35.6 g/dL (32-36); Mean Corpuscular Hgb 33.4 pg (27.0-32.0); Mean Corpuscular Volume 93.8 fL (80-94); Mean Platelet Vol. 10.1 fl (6.2-12.0); Monocyte# 0.94 X10^3/uL; Monocyte% 6.5 % (0-10); NRBC Flagged by Analyzer 0 % (0-5); Neutrophil # 12.41 X10^3/uL (2.7-7.7); POSITIVE DIFFERENTIAL YES; Platelet Count 403 K/mm3 (150-450); RBC Distribution Width CV 13.3 % (11.6-14.6); Red Blood Count 4.04 M/mm3 (4.6-6.2); White Blood Count 14.4 K/mm3 (4.4-11.0)
[2022-06-05 05:46] LABS: Differential Indicated SCAN CRITERIA MET
[2022-06-05 06:10] LABS: Anion Gap 5 (5-15); BUN 37 mg/dL (7-18); BUN/Creat Ratio 56.2 RATIO (10-20); Calcium,Total 7.9 mg/dL (8.5-10.1); Chloride 100 mmol/L (98-107); Creatinine, Serum 0.66 mg/dL (0.70-1.30); EST Glomerular Filtration Rate 129 mL/min (>60); Est Glom Filt Rate - Afr Amer 156 mL/min (>60); Estimated Creatinine Clearance 84.48 ml/min; Glucose 219 mg/dL (74-106); Potassium 4.2 mmol/L (3.5-5.1); Sodium Level 133 mmol/L (136-145)
[2022-06-05 06:25] LABS: Differential Comment SCANNED
--- NOTE | 2022-06-05 06:44 | PCM.PN.INT ---
Assessment & Plan Assessment/Plan (1) Acute hypoxemic respiratory failure: PLAN: Plan RECOMMENDATIONS: 1. Wean FiO2 for saturations greater than 90%. Check walking oximetry daily until discharge 2. Continue broad-spectrum antimicrobials, pending finalized culture results. No need to treat C albicans 3. Continue scheduled bronchodilators, but wean IV steroids. Anticipate transition to p.o. prednisone tomorrow 4. Continue diuresis as tolerated by hemodynamics and renal function. 5. Encourage incentive spirometer use and mobilize patient as tolerated. IMPRESSIONS: 1. Multifocal pneumonia with hypoxemia Significantly improved compared to yesterday. The patient's chest radiographs demonstrate bilateral pneumonia, right greater than left. He has been on Zosyn now during his hospitalization. Patient on vancomycin as he has been positive for MRSA in the past. CTA chest showed no evidence for pulmonary embolism. The patient did have mild obstructive lung disease noted on PFTs several years ago. Accordingly, the patient is going to be continued on scheduled bronchodilators, but will wean IV steroids. Possibly able to transition to p.o. prednisone tomorrow and wean over the next 12 to 14 days. Lastly, continue scheduled diuretics as tolerated by hemodynamics and renal function. Patient appears to be tolerating diuretics despite ~1 L out. 2. History of coronary artery disease/ischemic cardiomyopathy/depression/history of tobacco and alcohol dependency in remission Complicates care, management, recovery and prognosis. Continue home medications as indicated. This note was generated with [employer] dictation software. It may contain incorrect words, spelling, and punctuation that were not noted in checking the note before signing. Subjective Subjective Patient continues to improve. Patient states he was able to get out of bed yesterday. Oxygen requirements have improved. Patient is reporting using incentive spirometer. Patient continues to have a cough, but also feels this is improving. Patient is anticipating transfer to TCU for recovery as he continues to feel weak. Objective Data Objective Data Vital Signs: Vital Signs Temp Pulse Resp BP Pulse Ox O2 Del Method O2 Flow Rate 36.6 C 61 20 H 134/70 H 94 Nasal Cannula 5 06/05/22 03:06 06/05/22 03:06 06/05/22 03:06 06/05/22 03:06 06/05/22 03:06 06/05/22 03:31 06/05/22 03:31 FiO2 40 06/03/22 16:10 Oxygen Flow Rate (L/min) [ 8 AMBULATING with Oxygen #3] Oxygen Flow Rate (L/min) [ 7 AMBULATING with Oxygen #2] Oxygen Flow Rate (L/min) [ 6 AMBULATING with Oxygen #1] Oxygen Flow Rate (L/min) [At 5 REST with Oxygen] Oxygen Flow Rate (L/min) [At 0 REST on Room Air] Oxygen Flow Rate (L/min) 5 Oxygen Delivery Method Nasal Cannula Weight: 83.37 kg Body Mass Index (BMI) 23.6 Intake & Output: Intake and Output for Last 24 Hours 06/03/22 06/04/22 06/05/22 23:59 23:59 23:59 Intake Total 1900 / 1900 2600 / 2600 50 / 50 Output Total 3625 / 3625 3275 / 3275 Balance -1725 / -1725 -675 / -675 50 / 50 Lab / Micro Data Attestation: I reviewed the patient's lab results. Result Diagrams: 06/05/22 04:35 06/05/22 04:35 Labs: Laboratory Results - last 24 hr 06/04/22 05:35: Sodium 134 L, Potassium 4.2, Chloride 100, Carbon Dioxide 30.0, Anion Gap 4 L, BUN 41 H, Creatinine 0.77, Estim Creat Clear Calc 84.48, Est GFR (MDRD) Af Amer 130, Est GFR (MDRD) Non-Af 107, BUN/Creatinine Ratio 53.2 H, Glucose 196 H, Calcium 8.1 L 06/05/22 00:30: Vancomycin Trough 18.9 H 06/05/22 04:35: WBC 14.4 H, RBC 4.04 L, Hgb 13.5, Hct 37.9 L, MCV 93.8, MCH 33.4 H, MCHC 35.6, RDW Std Deviation 46.0 H, RDW Coeff of Yoli 13.3, Plt Count 403, MPV 10.1, Immature Gran % (Auto) 3.500 H, Neut % (Auto) 86.0 H, Lymph % (Auto) 3.7 L, [place] % (Auto) 6.5, Eos % (Auto) 0.0, Baso % (Auto) 0.3, Absolute Neuts (auto) 12.4 H, Absolute Lymphs (auto) 0.53 L, Nucleated RBC % 0, Differential Comment SCANNED 06/05/22 04:35: Sodium 133 L, Potassium 4.2, Chloride 100, Carbon Dioxide 28.0, Anion Gap 5, BUN 37 H, Creatinine 0.66 L, Estim Creat Clear Calc 84.48, Est GFR (MDRD) Af Amer 156, Est GFR (MDRD) Non-Af 129, BUN/Creatinine Ratio 56.2 H, Glucose 219 H, Calcium 7.9 L Micro: Microbiology 06/03/22 17:15 Sputum, Expectorated/Coughed Gram Stain - Final 06/03/22 17:15 Sputum, Expectorated/Coughed Respiratory Culture - Preliminary Alpha Hemolytic Streptococcus 05/30/22 20:44 Sputum, Expectorated/Coughed Gram Stain - Final 05/30/22 20:44 Sputum, Expectorated/Coughed Respiratory Culture - Final Presumptive C albicans 05/26/22 07:44 Mucosa - Nasopharyngeal Respiratory Panel (PCR) - Final 05/25/22 21:15 Urine Catheter - Catheter Legionella Antigen - Final 05/25/22 21:15 Urine Catheter - Catheter Streptococcus pneumoniae Antigen (M - Final 05/25/22 19:20 Nasal Secretion SARS-CoV-2 Antigen (Rapid) - Final Physical Exam Const alert, oriented x3 and no apparent distress General Appearance: cooperative HEENT normocephalic and head/scalp atraumatic Eyes PERRL, EOMs intact bilaterally and conjunctivae normal Neck supple General: trachea midline Chest inspection of chest normal Resp normal respiratory effort Auscultation: diminished lung sounds; Negative for rales, rhonchi or wheezes Cardio regular rate and regular rhythm GI normal to inspection, nondistended, normoactive bowel sounds Extremity no clubbing, cyanosis or edema Skin no rashes or lesions noted Neuro CN's II-XII intact bilaterally, moves all extremities and no focal motor deficits Psych Mood & Affect: flat affect Charges/Coding Visit Charges Inpatient E&M: 21131 Subs Hosp L2
[2022-06-05] MEDS: Ipratropium/Albuterol Sulfate 3 ML AMPUL.NEB INHALATION ×3 (07:13→18:55)
[2022-06-05] MEDS: Aspirin E.C. 81 MG Tablet PO (08:17)
--- NOTE | 2022-06-05 09:22 | CASEMGMT ---
Addendum entered by Geno Dominguez 06/05/22 09:30: ROLANDO also placed a call to Sridevi at [facility] earlier today and left message regarding referral. Original Note: Social Work Note ROLANDO placed a call to Kaci at [facility]. Kaci states that they have a concentrator that goes up to 10 liters oxygen. Kaci states that comfortable they would like pt at 7-8 Liters Oxygen while ambulating. Kaci states that since their concentrator only goes up to 10, they want to make sure pt will not need more than 10 liters so they do not have to send pt back to [facility]. ROLANDO informed Kaci that this worker will update her on pt's oxygen with ambulation today. Kaci states understanding. SW to continue to follow. Geno Dominguez TOP COATER, RIB STIFFENER AND HEEL DIPPER
[2022-06-05] MEDS: PARoxetine 10 MG Tablet 30 MG PO (09:57)
[2022-06-05] MEDS: Furosemide 40 MG/4 ML Vial IV (09:57)
[2022-06-05] MEDS: guaiFENesin 1,200 MG Tablet 1200 MG PO ×2 (09:57→21:55)
[2022-06-05] MEDS: Enoxaparin 40 MG/0.4 ML Syringe SC (09:57)
[2022-06-05] MEDS: Clopidogrel Bisulfate 75 MG Tablet PO (09:57)
[2022-06-05] MEDS: 0.9% Saline Lock 10 ML Syringe IV ×2 (09:59→21:55)
--- NOTE | 2022-06-05 10:10 | PCM.PN.HOSP ---
Documented by User: Rosa Marie NP, FOLDING RULES PRINTING MACHINE OPERATOR-C 06/05/22 10:20 Subjective Subjective Patient seen and examined. Breathing remains improved. Remains on 6 L nasal cannula. We will repeat ambulatory pulse ox testing today. Objective Data Objective Data Vital Signs: Vital Signs Temp Pulse Resp BP Pulse Ox O2 Del Method O2 Flow Rate 97.7 F L 58 L 18 138/80 H 93 Nasal Cannula 6 06/05/22 09:50 06/05/22 09:50 06/05/22 09:50 06/05/22 09:50 06/05/22 09:50 06/05/22 09:50 06/05/22 09:50 FiO2 40 06/03/22 16:10 Oxygen Flow Rate (L/min) [ 8 AMBULATING with Oxygen #3] Oxygen Flow Rate (L/min) [ 7 AMBULATING with Oxygen #2] Oxygen Flow Rate (L/min) [ 6 AMBULATING with Oxygen #1] Oxygen Flow Rate (L/min) [At 5 REST with Oxygen] Oxygen Flow Rate (L/min) [At 0 REST on Room Air] Oxygen Flow Rate (L/min) 6 Oxygen Delivery Method Nasal Cannula Weight: 183 lb 12.79 oz Body Mass Index (BMI) 23.6 Intake & Output: Intake and Output for Last 24 Hours 06/03/22 06/04/22 06/05/22 23:59 23:59 23:59 Intake Total 1900 / 1900 2600 / 2600 50 / 50 Output Total 3625 / 3625 3275 / 3275 900 / 900 Balance -1725 / -1725 -675 / -675 -850 / -850 Lab / Micro Data Result Diagrams: 06/05/22 04:35 06/05/22 04:35 Labs: Laboratory Results - last 24 hr 06/05/22 00:30: Vancomycin Trough 18.9 H 06/05/22 04:35: WBC 14.4 H, RBC 4.04 L, Hgb 13.5, Hct 37.9 L, MCV 93.8, MCH 33.4 H, MCHC 35.6, RDW Std Deviation 46.0 H, RDW Coeff of Yoli 13.3, Plt Count 403, MPV 10.1, Immature Gran % (Auto) 3.500 H, Neut % (Auto) 86.0 H, Lymph % (Auto) 3.7 L, Cavalier % (Auto) 6.5, Eos % (Auto) 0.0, Baso % (Auto) 0.3, Absolute Neuts (auto) 12.4 H, Absolute Lymphs (auto) 0.53 L, Nucleated RBC % 0, Differential Comment SCANNED 06/05/22 04:35: Sodium 133 L, Potassium 4.2, Chloride 100, Carbon Dioxide 28.0, Anion Gap 5, BUN 37 H, Creatinine 0.66 L, Estim Creat Clear Calc 84.48, Est GFR (MDRD) Af Amer 156, Est GFR (MDRD) Non-Af 129, BUN/Creatinine Ratio 56.2 H, Glucose 219 H, Calcium 7.9 L Micro: Microbiology 06/03/22 17:15 Sputum, Expectorated/Coughed Gram Stain - Final 06/03/22 17:15 Sputum, Expectorated/Coughed Respiratory Culture - Final Presumptive C albicans Mixed Erin 05/30/22 20:44 Sputum, Expectorated/Coughed Gram Stain - Final 05/30/22 20:44 Sputum, Expectorated/Coughed Respiratory Culture - Final Presumptive C albicans 05/26/22 07:44 Mucosa - Nasopharyngeal Respiratory Panel (PCR) - Final 05/25/22 21:15 Urine Catheter - Catheter Legionella Antigen - Final 05/25/22 21:15 Urine Catheter - Catheter Streptococcus pneumoniae Antigen (M - Final 05/25/22 19:20 Nasal Secretion SARS-CoV-2 Antigen (Rapid) - Final Physical Exam Const alert and oriented x3 HEENT normocephalic and moist oral mucous membranes Eyes PERRL, EOMs intact bilaterally and conjunctivae normal Neck no lymphadenopathy Resp clear to auscultation bilaterally Auscultation: diminished lung sounds Cardio regular rate, regular rhythm and no murmurs Peripheral Pulses: pulses 2+ throughout GI normal to inspection, nondistended, normoactive bowel sounds, non-tender and non-distended Extremity normal to inspection Skin no rashes or lesions noted Lesions: no lesions Rashes: no rashes Trauma: no lacerations or abrasions Neuro CN's II-XII intact bilaterally, no focal motor deficits, no sensory deficits noted and deep tendon reflexes 2+ bilaterally Psych mental status grossly normal and affect normal Assessment & Plan Assessment/Plan (1) Acute hypoxemic respiratory failure: PLAN: Plan 1.? Acute hypoxic respiratory failure secondary to bilateral community-acquired pneumonia and acute on chronic heart failure with reduced ejection fraction-IV Zosyn and IV Vanc. Albuterol and DuoNeb aerosols.? Urine for strep and Legionella negative.? Pulmonary medicine consulted. CTA without PE, bilateral pulmonary infiltrates.? Will need referral to pulmonary medicine at discharge for PFTs/outpatient follow-up given extensive smoking history.? Continue IV Solu-Medrol per pulmonary.? Sputum culture from 05/30 grew rare presumptive albicans. Repeat sputum culture growing alpha hemolytic strep.? Oxygen now stable on 6 L nasal cannula.? Improved from prior.? We will ambulate patient today and assess walking requirements. Likely transition to oral Lasix and oral prednisone tomorrow. 2.? Acute on chronic heart failure with reduced ejection fraction/ischemic cardiomyopathy- Echocardiogram completed and demonstrates an EF of 35%, stage I diastolic dysfunction.? Continue IV Lasix.? Strict I&O.? Daily weight 3. History of paroxysmal ventricular tachycardia status post AICD-on amiodarone.? 4. Vertigo with presyncope-brain CT negative.? As needed meclizine.? Echo with EF 35%, stage I diastolic dysfunction.? Previous orthostatic vitals positive, repeat improved however still positive.? Hold off on further fluids.? PARMINDER hose ordered. 5. Hypertension-stable, continue metoprolol. 6. Hypokalemia-resolved. 7. CAD-continue aspirin, Plavix, metoprolol.? Allergy to statin. 8. Depression/anxiety-paroxetine. 9. Tobacco dependence-encouraged cessation. 10. History of alcoholism-denies recent use. 11. Generalized weakness- PT/OT.? SN[place]. DVT prophylaxis-Lovenox wy This patient was seen by HI Dubose under the supervision of Dr. Linder. Discharge planning: SNF when medically stable. Repeat ambulatory oxygen testing pending. Time spent examining patient, reviewing data and subsequent management of care: 12 minutes Documented by User: Dr. Sunny Linder MD 06/05/22 17:33 Subjective Subjective Patient seen and examined. Breathing remains improved. Remains on 6 L nasal cannula. We will repeat ambulatory pulse ox testing today. Follow-up for acute hypoxic respiratory failure. Patient currently on 5 to 6 L of oxygen, FiO2 40%. Objective Data Lab / Micro Data Result Diagrams: 06/05/22 04:35 06/05/22 04:35 Physical Exam Narrative Seen and examined Physical exam General: Alert, Oriented x3, Cooperative HEENT: Atraumatic, PERRLA, EOMI, Normocephalic Oral: No Gingival or Mucosal Lesions/ Ulcerations Neck: Supple, No JVD, Negative Carotid Bruits Lungs: Air entry diminished in bilateral lung bases. On 6 L of oxygen dyspnea on exertion improving. No crepitation. Cardiovascular: Regular rate, Regular Rhythm, Normal S1, Normal S2, No murmurs, left subclavicular AICD Abdomen: Bowel Sounds Present, Soft, Non Tender, Non-Distended : No renal angle tenderness. No suprapubic tenderness. Extremities: No edema, Capillary Refill Less than 3 Seconds Skin: No rashes, No breakdown Musculoskeletal: No Tenderness to Palpation of Joints or Extremities Neurological: Cranial nerves II-XII grossly intact, DTR 2+/4 and Symmetrical, Neuro grossly intact Psych/Mental Status: Normal Affect, Appropriate. Assessment & Plan Assessment/Plan (1) Acute hypoxemic respiratory failure: PLAN: Plan 1.? Acute hypoxic respiratory failure secondary to bilateral community-acquired pneumonia and acute on chronic heart failure with reduced ejection fraction-IV Zosyn and IV Vanc. Albuterol and DuoNeb aerosols.? Urine for strep and Legionella negative.? Pulmonary medicine consulted. CTA without PE, bilateral pulmonary infiltrates.? Will need referral to pulmonary medicine at discharge for PFTs/outpatient follow-up given extensive smoking history.? Continue IV Solu-Medrol per pulmonary.? Sputum culture from 05/30 grew rare presumptive albicans. Repeat sputum culture growing alpha hemolytic strep.? Oxygen now stable on 6 L nasal cannula.? Improved from prior.? We will ambulate patient today and assess walking requirements. Likely transition to oral Lasix and oral prednisone tomorrow. 2.? Acute on chronic heart failure with reduced ejection fraction/ischemic cardiomyopathy- Echocardiogram completed and demonstrates an EF of 35%, stage I diastolic dysfunction.? Continue IV Lasix.? Strict I&O.? Daily weight 3. History of paroxysmal ventricular tachycardia status post AICD-on amiodarone.? 4. Vertigo with presyncope-brain CT negative.? As needed meclizine.? Echo with EF 35%, stage I diastolic dysfunction.? Previous orthostatic vitals positive, repeat improved however still positive.? Hold off on further fluids.? PARMINDER hose ordered. 5. Hypertension-stable, continue metoprolol. 6. Hypokalemia-resolved. 7. CAD-continue aspirin, Plavix, metoprolol.? Allergy to statin. 8. Depression/anxiety-paroxetine. 9. Tobacco dependence-encouraged cessation. 10. History of alcoholism-denies recent use. 11. Generalized weakness- PT/OT.? SN[place] at [place]. DVT prophylaxis-Lovenox sc This patient was seen by MAHAMED DuboseC under the supervision of Dr. Linder. Discharge planning: SNF when medically stable. Repeat ambulatory oxygen testing pending. Time spent examining patient, reviewing data and subsequent management of care: 12 minutes This patient was seen in conjunction with Rosa VARELA.? I have independently interviewed and examined the patient and reviewed pertinent history, examination findings, laboratory and plan of management.? I have? reviewed the note and agree with the documented findings with the few? additional points. In brief, patient is 67-year-old male with history of coronary artery disease, CHF status post AICD in October 2017 admitted with shortness of breath.? Patient still short of breath, dyspnea at rest.? Complain of chest heaviness/pressure.? On 6 L of oxygen.? CT chest individually reviewed and shows bilateral peripheral infiltrates worse in right lower lung lobe.? Echo shows EF 35% stage I diastolic dysfunction.? Initially, patient was started on IV ceftriaxone and Zithromax but patient started having expected resolution of hypoxia therefore started on broad-spectrum antibiotic, Zosyn.? 05/30: Transmitter Chief consult requested and appreciated.? CTA does not show PE but bilateral multiple pulmonary infiltrates.? Vancomycin added. Patient has allergy with iodine therefore premedicated with Solu-Medrol and Benadryl.? Agreed with diuresis 05/31: Solu-Medrol 40 mg every 8 hourly added.? Patient refusing for BiPAP.? Antibiotic to continue. 06/01: Mild improvement as patient is not short of breath or dyspneic at rest.? Continue antibiotic treatment.? Pulmonary follow-up reviewed 06/02: Mild improvement in dyspnea.? Continue high-dose IV Solu-Medrol, bronchodilator, antibiotic treatment, incentive spirometry. 06/03: Patient on Airvo transitioned to nasal cannula.? Continue antibiotic.? Sputum culture shows presumptive Gissel albicans.? Discussed about going to LTAC if patient requires continued Airvo or BiPAP.? As patient now on nasal cannula therefore possible to SNF.? Discussed with the case repairer.? Transmitter Chief follow-up reviewed. 06/04: Patient on 6 L of oxygen persistent.? Repeated sputum culture shows alphahemolytic strep group A.? Patient on seventh day of IV antibiotic Zosyn.? Had fourth day of vancomycin.? Vancomycin discontinued.? Last day of IV Zosyn.? Patient agreeable for SNF discharge. 06/05: Patient is still on 6 L of oxygen. Patient completed 7 days of antibiotic. Patient is stated he wants to stay for further 2 to 3 days but denies any already had 11 days of hospital stay, needs to go to SNF. Coronary artery disease with ischemic cardiomyopathy, CHF class III status post AICD: Patient on amiodarone.? Empirically Lasix.? BNP elevated.? I still do not think patient has acute heart failure but chronic heart failure. ?Patient had vertigo and near syncope and positive orthostatic signs.? CT head negative. Rest of the comorbidities as mentioned above Total time of the visit including total time spent in counseling or coordination of care, (more than 50% of the total time, spent in obtaining medical information from nurses and other ancillary care providers,explaining to the patient about labs, imaging, diagnosis and management), pulmonary consult, review of labs and imaging is 30 minutes, I spent 18 minutes, NICHOLE Lee I spent 12 minutes Charges/Coding Visit Charges Inpatient E&M: 23525 Subs Hosp L2
--- NOTE | 2022-06-05 12:00 | CASEMGMT ---
Social Work Note ROLANDO placed a call to Sridevi at [facility] to inquire about referral. Sridevi states that at this time, they are going to deny pt as they feel pt is not medically stable. ROLANDO asked Sridevi if that in regards to his Oxygen and Sridevi states it is. Sridevi states pt was still dropping in the 80s with 10 liters oxygen. ROLANDO informed Sridevi that [facility] will test pt today to determine his oxygen levels and asked if they will reconsider if pt's oxygen levels are better. Sridevi states they might and to fax over updated Oxygen levels when completed. Geno Dominguez RENEWABLE ENERGY TRADER, NEWS CAMERA OPERATOR
--- NOTE | 2022-06-05 15:45 | CASEMGMT ---
Social Work Note SW reviewed pt's oxygen test today, pt still requiring 10 liters with ambulation. ROLANDO placed a call to Kaci at [facility] and updated her. Kaci states they will review pt's oxygen test tomorrow. ROLANDO faxed oxygen requirements to both [facility] and [facility]. SW in to speak with pt. SW updated pt that [facility] is able to accept but would like to see pt's oxygen below 10 Liters. SW informed pt that [facility] would like to continue to review pt's oxygen levels and then make a decision. Pt states understanding. Pt states that he is thinking [facility] and going to a SNF that he can stay at longer than the 20 days. SW informed pt that most SNF require pt to be under 10 liters so he will continue to get tested. ROLANDO spoke with pt about [facility] in [place] may be able to accommodate pt's oxygen levels as they can go up to 16 liters. SW did inform pt that [employer] is only 2 stars. Pt states that scares me. Pt states that he would like to see if his oxygen levels get low enough that he can go to a SNF. Pt states if no, someone spoke to him about going to [place] and he would rather go there. SW to continue to follow. Plan: SNF pending pt's oxygen levels eGno Dominguez PRACTICE OR STUDENT TEACHER, DOCK SUPERVISOR
[2022-06-05] MEDS: Amiodarone 200 MG Tablet PO (17:47)
[2022-06-05] MEDS: DiphenhydrAMINE 25 MG Capsule 50 MG PO (21:55)
[2022-06-06] VITALS (10 sets, daily range): BP systolic 128–135; BP diastolic 59–86; PULSE 59–77; RESP 16–20; TEMP 36.1–37; O2SAT 87–96
[2022-06-06 06:34] LABS: Absolute Lymphocyte Count 0.69 X10^3/uL (0.83-4.51); Absolute Neutrophil Count 15.9 X10^3/uL (2.0-7.7); Basophil# 0.09 X10^3/uL; Basophil% 0.5 % (0-1); Hematocrit 39.8 % (40-54); Hemoglobin 13.9 g/dL (13.0-16.5); Lymphocyte # 0.69 X10^3/ul (0.83-4.51); Lymphocyte % 3.8 % (19-41); Mean Corp Hgb Conc 34.9 g/dL (32-36); Mean Corpuscular Hgb 32.9 pg (27.0-32.0); Mean Corpuscular Volume 94.3 fL (80-94); Mean Platelet Vol. 9.8 fl (6.2-12.0); Monocyte# 0.73 X10^3/uL; NRBC Flagged by Analyzer 0 % (0-5); Neutrophil # 15.89 X10^3/uL (2.7-7.7); Neutrophil % 87.2 % (47-70); Platelet Count 434 K/mm3 (150-450); RBC Distribution Width CV 13.6 % (11.6-14.6); Red Blood Count 4.22 M/mm3 (4.6-6.2); White Blood Count 18.2 K/mm3 (4.4-11.0)
[2022-06-06 06:45] LABS: Anion Gap 4 (5-15); BUN 35 mg/dL (7-18); BUN/Creat Ratio 45.7 RATIO (10-20); Calcium,Total 7.7 mg/dL (8.5-10.1); Chloride 101 mmol/L (98-107); Creatinine, Serum 0.77 mg/dL (0.70-1.30); EST Glomerular Filtration Rate 108 mL/min (>60); Est Glom Filt Rate - Afr Amer 131 mL/min (>60); Estimated Creatinine Clearance 84.48 ml/min; Glucose 236 mg/dL (74-106); Potassium 4.8 mmol/L (3.5-5.1); Sodium Level 133 mmol/L (136-145)
[2022-06-06] MEDS: Ipratropium/Albuterol Sulfate 3 ML AMPUL.NEB INHALATION ×3 (06:55→14:31)
--- NOTE | 2022-06-06 07:37 | PCM.PN.INT ---
Assessment & Plan Assessment/Plan (1) Acute hypoxemic respiratory failure: PLAN: Plan RECOMMENDATIONS: 1. Wean FiO2 for saturations greater than 90%. Check walking oximetry daily until discharge 2. Likely okay to narrow antibiotic spectrum given finalized culture results. No need to treat C albicans 3. Continue scheduled bronchodilators, but wean IV steroids. Anticipate transition to p.o. prednisone tomorrow 4. Continue diuresis as tolerated by hemodynamics and renal function. 5. Encourage incentive spirometer use and mobilize patient as tolerated. IMPRESSIONS: 1. Multifocal pneumonia with hypoxemia Significantly improved compared to yesterday. The patient's chest radiographs demonstrate bilateral pneumonia, right greater than left. He has been on Zosyn now during his hospitalization. Patient on vancomycin as he has been positive for MRSA in the past. CTA chest showed no evidence for pulmonary embolism. The patient did have mild obstructive lung disease noted on PFTs several years ago. Accordingly, the patient is going to be continued on scheduled bronchodilators. Transition to p.o. prednisone and wean over the next 12 to 14 days. Lastly, continue scheduled diuretics as tolerated by hemodynamics and renal function. Patient appears to be tolerating diuretics despite ~2.5 L out. 2. History of coronary artery disease/ischemic cardiomyopathy/depression/history of tobacco and alcohol dependency in remission Complicates care, management, recovery and prognosis. Continue home medications as indicated. This note was generated with Hipster dictation software. It may contain incorrect words, spelling, and punctuation that were not noted in checking the note before signing. Subjective Subjective Patient did well overnight. No acute issues were reported. Patient states he was able to ambulate with nursing around a small [place] and si[place], but did require 10 L nasal cannula to maintain saturations. Patient thought this went relatively well. Objective Data Objective Data Vital Signs: Vital Signs Temp Pulse Resp BP Pulse Ox O2 Del Method O2 Flow Rate 36.1 C L 59 L 18 133/68 H 93 Nasal Cannula 5 06/06/22 03:50 06/06/22 07:00 06/06/22 03:50 06/06/22 03:50 06/06/22 03:50 06/06/22 03:50 06/06/22 03:50 FiO2 40 06/03/22 16:10 Oxygen Flow Rate (L/min) [ 8 AMBULATING with Oxygen #3] Oxygen Flow Rate (L/min) [ 10 AMBULATING with Oxygen #2] Oxygen Flow Rate (L/min) [ 6 AMBULATING with Oxygen #1] Oxygen Flow Rate (L/min) [At 6 REST with Oxygen] Oxygen Flow Rate (L/min) [At 0 REST on Room Air] Oxygen Flow Rate (L/min) 5 Oxygen Delivery Method Nasal Cannula Weight: 83.37 kg Body Mass Index (BMI) 23.6 Intake & Output: Intake and Output for Last 24 Hours 06/04/22 06/05/22 06/06/22 23:59 23:59 23:59 Intake Total 2600 / 2600 1050 / 1050 Output Total 3275 / 3275 3500 / 3500 750 / 750 Balance -675 / -675 -2450 / -2450 -750 / -750 Lab / Micro Data Attestation: I reviewed the patient's lab results. Result Diagrams: 06/06/22 05:50 06/06/22 05:50 Labs: Laboratory Results - last 24 hr 06/06/22 05:50: WBC 18.2 H, RBC 4.22 L, Hgb 13.9, Hct 39.8 L, MCV 94.3 H, MCH 32.9 H, MCHC 34.9, RDW Std Deviation 47.0 H, RDW Coeff of Yoli 13.6, Plt Count 434, MPV 9.8, Immature Gran % (Auto) 4.500 H, Neut % (Auto) 87.2 H, Lymph % (Auto) 3.8 L, Grady % (Auto) 4.0, Eos % (Auto) 0.0, Baso % (Auto) 0.5, Absolute Neuts (auto) 15.9 H, Absolute Lymphs (auto) 0.69 L, Nucleated RBC % 0 06/06/22 05:50: Sodium 133 L, Potassium 4.8, Chloride 101, Carbon Dioxide 28.0, Anion Gap 4 L, BUN 35 H, Creatinine 0.77, Estim Creat Clear Calc 84.48, Est GFR (MDRD) Af Amer 131, Est GFR (MDRD) Non-Af 108, BUN/Creatinine Ratio 45.7 H, Glucose 236 H, Calcium 7.7 L Micro: Microbiology 06/03/22 17:15 Sputum, Expectorated/Coughed Gram Stain - Final 06/03/22 17:15 Sputum, Expectorated/Coughed Respiratory Culture - Final Presumptive C albicans Mixed Erin 05/30/22 20:44 Sputum, Expectorated/Coughed Gram Stain - Final 05/30/22 20:44 Sputum, Expectorated/Coughed Respiratory Culture - Final Presumptive C albicans 05/26/22 07:44 Mucosa - Nasopharyngeal Respiratory Panel (PCR) - Final 05/25/22 21:15 Urine Catheter - Catheter Legionella Antigen - Final 05/25/22 21:15 Urine Catheter - Catheter Streptococcus pneumoniae Antigen (M - Final 05/25/22 19:20 Nasal Secretion SARS-CoV-2 Antigen (Rapid) - Final Physical Exam Const alert, oriented x3 and no apparent distress Constitutional Narrative: Nasal cannula in place. General Appearance: cooperative HEENT normocephalic and head/scalp atraumatic Eyes PERRL, EOMs intact bilaterally and conjunctivae normal Neck supple General: trachea midline Chest inspection of chest normal Resp normal respiratory effort Auscultation: diminished lung sounds; Negative for rales, rhonchi or wheezes Cardio regular rate and regular rhythm GI normal to inspection, nondistended, normoactive bowel sounds Extremity no clubbing, cyanosis or edema Skin no rashes or lesions noted Neuro CN's II-XII intact bilaterally, moves all extremities and no focal motor deficits Psych Mood & Affect: flat affect Charges/Coding Visit Charges Inpatient E&M: 44931 Subs Hosp L2
[2022-06-06] MEDS: Amiodarone 200 MG Tablet PO (09:05)
[2022-06-06] MEDS: guaiFENesin 1,200 MG Tablet 1200 MG PO (09:06)
[2022-06-06] MEDS: predniSONE 20 MG Tablet 40 MG PO (09:06)
[2022-06-06] MEDS: Aspirin E.C. 81 MG Tablet PO (09:06)
[2022-06-06] MEDS: Enoxaparin 40 MG/0.4 ML Syringe SC (09:06)
[2022-06-06] MEDS: Furosemide 40 MG/4 ML Vial IV (09:06)
[2022-06-06] MEDS: Clopidogrel Bisulfate 75 MG Tablet PO (09:07)
[2022-06-06] MEDS: Metoprolol(XL)Succ 25 MG Tablet 12.5 MG PO (09:07)
[2022-06-06] MEDS: 0.9% Saline Lock 10 ML Syringe IV (09:10)
--- NOTE | 2022-06-06 09:29 | CASEMGMT ---
Addendum entered by Geno Dominguez 06/06/22 12:10: ROLANDO placed a call to Kaci at [facility] and they can accept pt today with pt's current oxygen requirements. SW in to speak with pt. ROLANDO updated pt that his oxygen is improves from yesterday and [facility] is able to accept today. ROLANDO informed pt that [facility] has not provided an answer yet. Pt agreeable to [facility]. ROLANDO then received message from Sridevi at [facility] stating they still cannot accept pt due to pt's fluctuating with Oxygen. ROLANDO updated PA, pt can discharge to [facility] today. Plan: [facility] skilled today Original Note: Social Work Note SW updated that pt was able to ambulate today on 7 liters. ROLANDO placed a call to Kaci at [facility]. Kaci states to fax over the oxygen test from today and she will update, but states they should be able to accept pt today. ROLANDO placed a call to Sridevi at [facility] and updated her on pt's oxygen today. Sridevi states to also fax over the updated oxygen and she will review it. Geno Dominguez CORPORATE WEBMASTER, CUSTOM HARVESTER
--- NOTE | 2022-06-06 10:54 | PCM.TXEXTCAR ---
Documented by User: Melly Rosado NP-C 06/06/22 12:23 Diet Diet Order/Speech Therapy: 05/25/22 23:38 Diet: Cardiac - Heart Healthy Food consistency:: Regular Liquid Consistency:: Regular/Thin Dietary Modifications:: Sodium Restricted Routine Orders/Code Status O2 Liters per Minute: 5-7 O2 Frequency: Continuous Routine Lab Work: CBC and BMP Code Status: DNRCC-A (No intubation) Suggestions for Active Care Change Position every (hours): 2 Times a day to sit in chair: 3 Therapies Physical Therapy: Eval and Treat Occupational Therapy: Eval and Treat Problem/Diagnosis (1) Acute hypoxemic respiratory failure: Status: Acute Code(s): J96.01 - Acute respiratory failure with hypoxia Allergies/Procedures Done in Hospital Allergies Iodine and Iodide Containing Produc Allergy (Severe, Verified 05/25/22 18:54) Rash ezetimibe [From Zetia] Adverse Reaction (Severe, Verified 05/25/22 18:54) Myalgias Wxqikub-QUL-BcT Reductase Inhibitor [Rsyeoxx-Szo-Oau Reductase Inhibitor] Adverse Reaction (Severe, Verified 05/25/22 18:54) Elevated Liver Enzymes duloxetine [From Cymbalta] Adverse Reaction (Verified 05/25/22 18:54) Orthostasis/hyponatremia Procedures: 2-D Echocardiogram Type of Care/Length of Stay Estimated LOS: Convalescent Care Less Than 30 days Type of Care Needed: Skilled Rehab Potential: Fair Prognosis: Fair Additional Orders/Day of Discharge Day of Discharge: 06/06/22 Dietary and Speech Recommendations Dietitian Recommendations/Changes: Continue Cardiac/sodium-restricted diet and monitor need to restrict carbohydrates due to elevated blood glucose levels. Continue Ensure Enlive 4x/day with medpass (120mL); change to glucerna shake as needed. Trend weight as available to better assess intake adequacy. Discharge Plan Admission Admit Date/Time: 05/25/22 21:22 Primary Reason for Your Visit: CHF, PNA Attending Provider: Sunny Linder Primary Care Provider: Care Physician,No Primary Consulting Providers: Luciano Murphy ; Adrian Au ; Rodrigo Phan ; Michael Hendrickson ; Travis Villagran ; Sneha Garcia DETECTIVE Instructions Additional Instructions / Restrictions: Follow-up BMP in 3 days as patient is on diuretic Discharge Orders/Prescriptions Prescriptions: New albuterol sulfate 2.5 mg /3 mL (0.083 %) Solution For Nebulization 2.5 mg inhalation Q2H PRN PRN (Reason: Shortness of Breath/Wheezing) Qty: 0 0RF Mucus Relief ER 1,200 mg Tablet Extended Release 12hr 1,200 mg PO BID Qty: 0 0RF furosemide [Lasix] 40 mg tablet 40 mg PO BID Qty: 60 0RF prednisone 10 mg tablet See Taper PO DAILY Qty: 30 0RF Taper: Prednisone Taper 40 mg WITH BREAKFAST for 3 Days and 0 Hour 30 mg WITH BREAKFAST for 3 Days and 0 Hour 20 mg WITH BREAKFAST for 3 Days and 0 Hour 10 mg WITH BREAKFAST for 3 Days and 0 Hour Continued aspirin 81 mg tablet,delayed release (DR/EC) 81 mg PO DAILY amiodarone 200 mg tablet 200 mg PO BID clopidogrel 75 mg tablet 75 mg PO DAILY paroxetine HCl 20 mg tablet 30 mg PO DAILY metoprolol succinate 25 mg tablet extended release 24 hr 12.5 mg PO DAILY Referrals / Follow Up: Tam Silver Chi, MD [Med Staff - Active Staff] - Care Physician,No Primary [Primary Care Provider] - Disposition Disposition (needs filled in before D/C Order can be placed): [facility] Documented by User: Dr. Sunny Linder MD 06/06/22 14:13 Routine Orders/Code Status Suppository Type: Dulcolax 10mg Suppository Frequency: Daily PRN Therapies Weight Bearing: Weight bearing as tolerated Extremity Affected:: Bilateral Lower Problem/Diagnosis (1) Acute hypoxemic respiratory failure: Status: Acute Code(s): J96.01 - Acute respiratory failure with hypoxia Allergies/Procedures Done in Hospital Allergies Iodine and Iodide Containing Produc Allergy (Severe, Verified 05/25/22 18:54) Rash ezetimibe [From Zetia] Adverse Reaction (Severe, Verified 05/25/22 18:54) Myalgias Snybiso-VZU-XcC Reductase Inhibitor [Ffkayoy-Zgr-Fuo Reductase Inhibitor] Adverse Reaction (Severe, Verified 05/25/22 18:54) Elevated Liver Enzymes duloxetine [From Cymbalta] Adverse Reaction (Verified 05/25/22 18:54) Orthostasis/hyponatremia Discharge Plan Admission Admit Date/Time: 05/25/22 21:22 Primary Reason for Your Visit: CHF, PNA Attending Provider: Sunny Linder Primary Care Provider: Care Physician,No Primary Consulting Providers: Luciano Murphy ; Adrian Au ; Rodrigo Phan ; Michael Hendrickson ; Travis Villagran ; Sneha Garcia DETECTIVE Instructions Additional Instructions / Restrictions: Follow-up BMP in 3 days as patient is on diuretic Discharge Orders/Prescriptions Prescriptions: New albuterol sulfate 2.5 mg /3 mL (0.083 %) Solution For Nebulization 2.5 mg inhalation Q2H PRN PRN (Reason: Shortness of Breath/Wheezing) Qty: 0 0RF Mucus Relief ER 1,200 mg Tablet Extended Release 12hr 1,200 mg PO BID Qty: 0 0RF furosemide [Lasix] 40 mg tablet 40 mg PO BID Qty: 60 0RF prednisone 10 mg tablet See Taper PO DAILY Qty: 30 0RF Taper: Prednisone Taper 40 mg WITH BREAKFAST for 3 Days and 0 Hour 30 mg WITH BREAKFAST for 3 Days and 0 Hour 20 mg WITH BREAKFAST for 3 Days and 0 Hour 10 mg WITH BREAKFAST for 3 Days and 0 Hour Continued aspirin 81 mg tablet,delayed release (DR/EC) 81 mg PO DAILY amiodarone 200 mg tablet 200 mg PO BID clopidogrel 75 mg tablet 75 mg PO DAILY paroxetine HCl 20 mg tablet 30 mg PO DAILY metoprolol succinate 25 mg tablet extended release 24 hr 12.5 mg PO DAILY Referrals / Follow Up: Tam Silver Chi, MD [Med Staff - Active Staff] - Care Physician,No Primary [Primary Care Provider] - Disposition Disposition (needs filled in before D/C Order can be placed): [facility]
--- NOTE | 2022-06-06 11:01 | PCM.DC.SUM ---
Documented by User: HI Morales 06/06/22 12:24 Providers Date of Admission: 05/25/22 Date of Discharge: 06/06/22 Primary Care Physician: Kitty Primary Care Phys Consultations 05/30/22 11:40 Consult: Treating Plant Operator / Pulmonary Medicine Routine Consulting Provider: Pulmonary Medicine aysha [place] Reason for Consult: severe acute hypoxic resp failure EMERGENT Consult: No MD Notified: Yes Date Notified: 05/30/22 Time Notified: 11:40 Method of Notification: Verbal Reason For Visit: PNEUMONIA; ORTHOSTATIC POSITIVE Diagnosis Discharge Diagnosis (1) Acute hypoxemic respiratory failure: Status: Acute Code(s): J96.01 - Acute respiratory failure with hypoxia Plan 1. Bilateral pneumonia -Continue ceftriaxone and azithromycin -Continue breathing treatments -Patient currently on 4 L nasal cannula continue to wean as tolerated, patient needed 6 L when ambulating yesterday. -Legionella and strep pneumoniae urine negative, respiratory panel pending 2. Generalized weakness -PT and OT following 3. Vertigo and presyncope -Brain CT negative -Meclizine ordered as needed for vertigo -Patient has positive orthostatic vital signs 4. Hypokalemia -Potassium 3.9 -BMP daily 5. CAD -Continue aspirin and Plavix 6. Presence of ICD -Implanted 10/31/2017 7. Hypertension -Continue metoprolol -Vital signs per protocol, currently stable DVT prophylaxis-subcu Lovenox This patient was seen by Melly Rosado NP-C under the supervision of Dr. Linder. Medications at Discharge Home Medications aspirin 81 mg tablet,delayed release 81 mg PO DAILY [facility] 04/17/21 amiodarone 200 mg tablet 200 mg PO BID HEART RHYTHM 05/25/22 clopidogrel 75 mg tablet 75 mg PO DAILY 05/25/22 metoprolol succinate 25 mg tablet,extended release 24 hr 12.5 mg PO DAILY BP 05/25/22 paroxetine HCl 20 mg tablet 30 mg PO DAILY 05/25/22 albuterol sulfate 2.5 mg/3 mL (0.083 %) solution for nebulization 2.5 mg (3 mL) inhalation Q2H PRN PRN Shortness of Breath/Wheezing #0 mL 06/06/22 furosemide 40 mg tablet (Lasix) 40 mg PO BID #60 tabs 06/06/22 guaifenesin 1,200 mg tablet, extended release 12 hr (Mucus Relief ER) 1,200 mg PO BID #0 tabs 06/06/22 prednisone 10 mg tablet See Taper PO DAILY #30 tabs 06/06/22 Hospital Course Operations None Procedures 2-D Echocardiogram Summary of Care Provided Minutes Spent on Discharge: 35 Hospital Course: Patient is a 67-year-old male who initially presented to the ER with shortness of breath, leg weakness and presyncope. Patient was noted to have bilateral pneumonia for which patient was treated throughout the course of the stay with IV Zosyn which patient completed. Patient also received inhaled and IV steroids during admission. Patient was also noted to CHF and an echocardiogram was completed which demonstrated an EF of 35%. Patient will initiated on IV Lasix which has improved patient's shortness of breath. Patient currently on 5 to 7 L nasal cannula oxygen, 5 L at rest, 7 during ambulation. Patient was not on oxygen prior to this admission. Patient will need to follow-up outpatient with pulmonology for PFTs and evaluation for COPD as patient has an extensive smoking history. Physical Exam Const alert, oriented x3 and no apparent distress General Appearance: cooperative HEENT normocephalic and head/scalp atraumatic Eyes conjunctivae normal and no scleral icterus Neck no lymphadenopathy and supple General: trachea midline Lymph Lymphatic: no lymphadenopathy noted Resp normal respiratory effort Auscultation: wheezes scattered wheezes Cardio regular rate, regular rhythm, S1 normal heart sound, S2 normal heart sound and peripheral pulses 2+ throughout GI normal to inspection, nondistended, normoactive bowel sounds, soft to palpation and non-tender Extremity normal capillary refill and no clubbing, cyanosis or edema Skin skin turgor normal Neuro no focal motor deficits and no sensory deficits noted Motor Exam: general weakness Psych affect normal Weight / BMI Weight Weight: 183 lb 12.79 oz Body Mass Index (BMI) 23.6 ABG / Lab / Microbiology Data Result Diagrams: 06/06/22 05:50 06/06/22 05:50 Laboratory: Laboratory Results - last 24 hr 06/06/22 05:50: WBC 18.2 H, RBC 4.22 L, Hgb 13.9, Hct 39.8 L, MCV 94.3 H, MCH 32.9 H, MCHC 34.9, RDW Std Deviation 47.0 H, RDW Coeff of Yoli 13.6, Plt Count 434, MPV 9.8, Immature Gran % (Auto) 4.500 H, Neut % (Auto) 87.2 H, Lymph % (Auto) 3.8 L, Dickey % (Auto) 4.0, Eos % (Auto) 0.0, Baso % (Auto) 0.5, Absolute Neuts (auto) 15.9 H, Absolute Lymphs (auto) 0.69 L, Nucleated RBC % 0 06/06/22 05:50: Sodium 133 L, Potassium 4.8, Chloride 101, Carbon Dioxide 28.0, Anion Gap 4 L, BUN 35 H, Creatinine 0.77, Estim Creat Clear Calc 84.48, Est GFR (MDRD) Af Amer 131, Est GFR (MDRD) Non-Af 108, BUN/Creatinine Ratio 45.7 H, Glucose 236 H, Calcium 7.7 L Microbiology: Microbiology 06/03/22 17:15 Sputum, Expectorated/Coughed Gram Stain - Final 06/03/22 17:15 Sputum, Expectorated/Coughed Respiratory Culture - Final Presumptive C albicans Mixed Erin 05/30/22 20:44 Sputum, Expectorated/Coughed Gram Stain - Final 05/30/22 20:44 Sputum, Expectorated/Coughed Respiratory Culture - Final Presumptive C albicans 05/26/22 07:44 Mucosa - Nasopharyngeal Respiratory Panel (PCR) - Final 05/25/22 21:15 Urine Catheter - Catheter Legionella Antigen - Final 05/25/22 21:15 Urine Catheter - Catheter Streptococcus pneumoniae Antigen (M - Final 05/25/22 19:20 Nasal Secretion SARS-CoV-2 Antigen (Rapid) - Final D/C Instructions Discharge Diet: Low fat / Low cholesterol and 8 Cup Fluid Restriction Discharge Activity: Use Walker Call your doctor if you observe: Fever of 101 or Higher, Shortness of breath, Dizziness, Swelling in the ankles, Chest pain and Increased palpitations (irregular heartbeat) Meaningful Use Info Meaningful Use Diagnoses (Choose all that apply): None applicable Discharge Plan Admission Admit Date/Time: 05/25/22 21:22 Primary Reason for Your Visit: CHF, PNA Attending Provider: Sunny Linder Primary Care Provider: Care Physician,No Primary Consulting Providers: Luciano Murphy ; Adrian Au ; Rodrigo Phan ; Michael Hendrickson ; Travis Villagran ; Sneha Garcia INVESTIGATIVE SHOPPER Instructions Additional Instructions / Restrictions: Follow-up BMP in 3 days as patient is on diuretic Discharge Orders/Prescriptions Prescriptions: New albuterol sulfate 2.5 mg /3 mL (0.083 %) Solution For Nebulization 2.5 mg inhalation Q2H PRN PRN (Reason: Shortness of Breath/Wheezing) Qty: 0 0RF Mucus Relief ER 1,200 mg Tablet Extended Release 12hr 1,200 mg PO BID Qty: 0 0RF furosemide [Lasix] 40 mg tablet 40 mg PO BID Qty: 60 0RF prednisone 10 mg tablet See Taper PO DAILY Qty: 30 0RF Taper: Prednisone Taper 40 mg WITH BREAKFAST for 3 Days and 0 Hour 30 mg WITH BREAKFAST for 3 Days and 0 Hour 20 mg WITH BREAKFAST for 3 Days and 0 Hour 10 mg WITH BREAKFAST for 3 Days and 0 Hour Continued aspirin 81 mg tablet,delayed release (DR/EC) 81 mg PO DAILY amiodarone 200 mg tablet 200 mg PO BID clopidogrel 75 mg tablet 75 mg PO DAILY paroxetine HCl 20 mg tablet 30 mg PO DAILY metoprolol succinate 25 mg tablet extended release 24 hr 12.5 mg PO DAILY Referrals / Follow Up: Tam Silver Chi, MD [Med Staff - Active Staff] - Care Physician,No Primary [Primary Care Provider] - Disposition Disposition (needs filled in before D/C Order can be placed): Care Home Facility Documented by User: Dr. Sunny Linder MD 06/06/22 14:17 Providers Date of Admission: 05/25/22 Reason For Visit: PNEUMONIA; ORTHOSTATIC POSITIVE Diagnosis Discharge Diagnosis (1) Acute hypoxemic respiratory failure: Status: Acute Code(s): J96.01 - Acute respiratory failure with hypoxia Medications at Discharge Home Medications aspirin 81 mg tablet,delayed release 81 mg PO DAILY [facility] 04/17/21 amiodarone 200 mg tablet 200 mg PO BID HEART RHYTHM 05/25/22 clopidogrel 75 mg tablet 75 mg PO DAILY 05/25/22 metoprolol succinate 25 mg tablet,extended release 24 hr 12.5 mg PO DAILY BP 05/25/22 paroxetine HCl 20 mg tablet 30 mg PO DAILY 05/25/22 albuterol sulfate 2.5 mg/3 mL (0.083 %) solution for nebulization 2.5 mg (3 mL) inhalation Q2H PRN PRN Shortness of Breath/Wheezing #0 mL 06/06/22 furosemide 40 mg tablet (Lasix) 40 mg PO BID #60 tabs 06/06/22 guaifenesin 1,200 mg tablet, extended release 12 hr (Mucus Relief ER) 1,200 mg PO BID #0 tabs 06/06/22 prednisone 10 mg tablet See Taper PO DAILY #30 tabs 06/06/22 Hospital Course Summary of Care Provided Hospital Course: Patient is a 67-year-old male who initially presented to the ER with shortness of breath, leg weakness and presyncope. Patient was noted to have bilateral pneumonia for which patient was treated throughout the course of the stay with IV Zosyn which patient completed. Patient also received inhaled and IV steroids during admission. Patient was also noted to CHF and an echocardiogram was completed which demonstrated an EF of 35%. Patient will initiated on IV Lasix which has improved patient's shortness of breath. Patient currently on 5 to 7 L nasal cannula oxygen, 5 L at rest, 7 during ambulation. Patient was not on oxygen prior to this admission. Patient will need to follow-up outpatient with pulmonology for PFTs and evaluation for COPD as patient has an extensive smoking history. This patient was seen in conjunction with NICHOLE Pickard. I have independently interviewed and examined the patient and reviewed pertinent history, examination findings, laboratory and plan of management. I have reviewed the note and agree with the documented findings with the few additional points. n brief, patient is 67-year-old male with history of coronary artery disease, CHF status post AICD in October 2017 admitted with shortness of breath.? Patient still short of breath, dyspnea at rest.? Complain of chest heaviness/pressure.? On 6 L of oxygen.? CT chest individually reviewed and shows bilateral peripheral infiltrates worse in right lower lung lobe.? Echo shows EF 35% stage I diastolic dysfunction.? Initially, patient was started on IV ceftriaxone and Zithromax but patient started having expected resolution of hypoxia therefore started on broad-spectrum antibiotic, Zosyn.? Computer Help Desk Representative consult requested and appreciated.? CTA does not show PE but bilateral multiple pulmonary infiltrates.? Vancomycin added. Patient has allergy with iodine therefore premedicated with Solu-Medrol and Benadryl. On IV diuresis, furosemide. Solu-Medrol 40 mg every 8 hourly. Patient refused for BiPAP. Initially patient on Airvo transition to nasal cannula. Patient be discharged to SNF. Coronary artery disease with ischemic cardiomyopathy, chronic HFrEF CHF class III status post AICD: Patient on amiodarone.? BNP elevated.? Lasix 40 mg IV daily changed to oral 40 mg p.o. twice daily. Check BMP in 3 days. I still do not think patient has acute heart failure but chronic heart failure. ?Patient had vertigo and near syncope and positive orthostatic signs.? CT head negative. Discharge medication reconciliation done. Discharge follow-up instructions completed. Discharge process discussed with the patient and all questions were answered to patient's satisfaction. Total time spent, exact 35 minutes on discharge meds reconciliation, examination, coordination of care with nurses and ancillary staff, review of imaging and blood test and discussion with the patient on follow-up instructions. I have discussed my assessment with NICHOLE Pickard and orders have been reviewed. Physical Exam Narrative Seen and examined on the day of discharge Physical exam General: Alert, Oriented x3, Cooperative HEENT: Atraumatic, PERRLA, EOMI, Normocephalic Oral: No Gingival or Mucosal Lesions/ Ulcerations Neck: Supple, No JVD, Negative Carotid Bruits Lungs: Air entry diminished in bilateral lung bases. On 5 L of oxygen dyspnea on exertion improving. No crepitation. Cardiovascular: Regular rate, Regular Rhythm, Normal S1, Normal S2, No murmurs, left subclavicular AICD Abdomen: Bowel Sounds Present, Soft, Non Tender, Non-Distended : No renal angle tenderness. No suprapubic tenderness. Extremities: No edema, Capillary Refill Less than 3 Seconds Skin: No rashes, No breakdown Musculoskeletal: No Tenderness to Palpation of Joints or Extremities Neurological: Cranial nerves II-XII grossly intact, DTR 2+/4 and Symmetrical, Neuro grossly intact Psych/Mental Status: Normal Affect, Appropriate. ABG / Lab / Microbiology Data Result Diagrams: 06/06/22 05:50 06/06/22 05:50 Discharge Plan Admission Admit Date/Time: 05/25/22 21:22 Primary Reason for Your Visit: CHF, PNA Attending Provider: Sunny Linder Primary Care Provider: Care Physician,No Primary Consulting Providers: Luciano Murphy ; Adrian Au ; Rodrigo Phan ; Michael Hendrickson ; Travis Villagran ; Sneha Garcia INVESTIGATIVE SHOPPER Instructions Additional Instructions / Restrictions: Follow-up BMP in 3 days as patient is on diuretic Discharge Orders/Prescriptions Prescriptions: New albuterol sulfate 2.5 mg /3 mL (0.083 %) Solution For Nebulization 2.5 mg inhalation Q2H PRN PRN (Reason: Shortness of Breath/Wheezing) Qty: 0 0RF Mucus Relief ER 1,200 mg Tablet Extended Release 12hr 1,200 mg PO BID Qty: 0 0RF furosemide [Lasix] 40 mg tablet 40 mg PO BID Qty: 60 0RF prednisone 10 mg tablet See Taper PO DAILY Qty: 30 0RF Taper: Prednisone Taper 40 mg WITH BREAKFAST for 3 Days and 0 Hour 30 mg WITH BREAKFAST for 3 Days and 0 Hour 20 mg WITH BREAKFAST for 3 Days and 0 Hour 10 mg WITH BREAKFAST for 3 Days and 0 Hour Continued aspirin 81 mg tablet,delayed release (DR/EC) 81 mg PO DAILY amiodarone 200 mg tablet 200 mg PO BID clopidogrel 75 mg tablet 75 mg PO DAILY paroxetine HCl 20 mg tablet 30 mg PO DAILY metoprolol succinate 25 mg tablet extended release 24 hr 12.5 mg PO DAILY Referrals / Follow Up: Tam Silver Chi, MD [Med Staff - Active Staff] - Care Physician,No Primary [Primary Care Provider] - Disposition Disposition (needs filled in before D/C Order can be placed): Care Home Facility Charges/Coding Visit Charges Inpatient E&M: 34261 Disch Hosp
[2022-06-06] MEDS: PARoxetine 10 MG Tablet 30 MG PO (11:27)
--- NOTE | 2022-06-06 14:30 | CASEMGMT ---
Social Work Note SW completed [facility]valescent [facility] in [facility]. SW faxed completed discharge paperwork to [facility] including transfer to extended care facility, signed medication list, any scripts, COVID test/tool, and Con[facility]. Original in SNF folder and copy on pt's chart. SW spoke with RN, pt to transport via wheelchair van. SW accessed trip assist and arranged transportation via wheelchair van for 3:30pm. Transportation form completed and placed on SNF folder and copy on pt's chart. SW updated RN on transportation time. SW placed a call to Kaci at [facility] and updated her on transportation time. SW in to speak with pt and updated him on discharge and transportation time to [facility]. Pt states understanding. Plan: [facility] skilled today with Physician's transporting pt via wheelchair van at 3:30pm Geno HAMILTON, MOTORCYCLE DELIVERER
--- NOTE | 2022-06-06 15:14 | NURSING ---
Addendum entered by Rosa See 06/06/22 15:31: Report given to [facility] nurse Brenda. Original Note: Attempted to call report to [facility]. Placed on hold for 6 minutes, no option to leave call back number.
== END 2022-06-06 15:52 | DRG 193 ==
LOC: ED 20:49 → PCU 22:12
PROVIDERS: Family Medicine; Internal Medicine Critical Care Medicine; Nurse Practitioner Family; Admitting Provider Hospitalist; Emergency Provider Emergency Medicine; Visit Provider Internal Medicine
DX: J18.9 Pneumonia, unspecified organism (principal); J96.01 Acute respiratory failure with hypoxia; I50.23 Acute on chronic systolic (congestive) heart failure; E22.2 Syndrome of inappropriate secretion of antidiuretic hormone; J44.0 Chronic obstructive pulmonary disease with (acute) lower respiratory infection; I11.0 Hypertensive heart disease with heart failure; F10.21 Alcohol dependence, in remission; E78.5 Hyperlipidemia, unspecified; I25.10 Atherosclerotic heart disease of native coronary artery without angina pectoris; I25.5 Ischemic cardiomyopathy; E83.42 Hypomagnesemia; F41.8 Other specified anxiety disorders; F17.210 Nicotine dependence, cigarettes, uncomplicated; I95.1 Orthostatic hypotension; E87.6 Hypokalemia; Z87.19 Personal history of other diseases of the digestive system; Z87.440 Personal history of urinary (tract) infections; Z79.82 Long term (current) use of aspirin; Z79.02 Long term (current) use of antithrombotics/antiplatelets; Z79.899 Other long term (current) drug therapy; Z95.810 Presence of automatic (implantable) cardiac defibrillator; Z86.14 Personal history of Methicillin resistant Staphylococcus aureus infection; B96.89 Other specified bacterial agents as the cause of diseases classified elsewhere
CPT/HCPCS: 36415; 70450; 71045; 71250; 71275; 80048; 80053; 80202; 81001; 82077; 83605; 83690; 83880; 84145; 84484; 85025; 85379; 85610; 85730; 87070; 87205; 87426; 87449; 87633; 87635; 87641; 87811; 93005; 93306; 94002; 94003; 94640; 94660; 94667; 94668; 94762; 97110; 97116; 97162; 97166; 97530; 97535; 97802; 99285; 99406; J7030; J7040; J7050; Q9967; A4216; J1940; J2405; U0003; U0005

== ENCOUNTER → 2022-07-03 | Outpatient (CLI) | payer MEDICARE, MEDICAID, SELFPAY ==
[2019-02-17 13:19] VITALS: BMI 29.2
[2022-07-03 15:50] LABS: Vitamin D,25 Hydroxy 17.8 ng/mL
[2022-07-03 16:05] LABS: Anion Gap 7 (5-15); BUN 22 mg/dL (7-18); BUN/Creat Ratio 26.8 RATIO (10-20); Calcium,Total 9.2 mg/dL (8.5-10.1); Chloride 106 mmol/L (98-107); Cholesterol 242 mg/dL (200); Creatinine, Serum 0.82 mg/dL (0.70-1.30); EST Glomerular Filtration Rate 100 mL/min (>60); Est Glom Filt Rate - Afr Amer 120 mL/min (>60); Glucose 107 mg/dL (74-106); High Density Lipoprotein 42 mg/dL; PSA,Total - Annual Screen 0.59 ng/mL (0.00-4.00); Potassium 4.5 mmol/L (3.5-5.1); Sodium Level 137 mmol/L (136-145); Thyroid Stim Hormone (TSH) 2.29 uIU/mL (0.358-3.74); Triglycerides 130 mg/dL; Very Low Density Lipoprotein 26 mg/dL (5-40)
== END | disposition home or self-care (01) ==
PROVIDERS: Family Medicine; Visit Provider Family Medicine
DX: Z00.00 Encounter for general adult medical examination without abnormal findings (principal); I48.91 Unspecified atrial fibrillation; I25.10 Atherosclerotic heart disease of native coronary artery without angina pectoris; E55.9 Vitamin D deficiency, unspecified; Z12.5 Encounter for screening for malignant neoplasm of prostate
CPT/HCPCS: 36415; 80048; 80061; 82306; 84153; 84443; G0103

== ENCOUNTER → 2023-07-10 | Outpatient (CLI) | payer MEDICARE, MEDICAID, SELFPAY ==
[2019-02-17 13:19] VITALS: BMI 29.2
--- NOTE | 2023-07-10 11:46 | RAD_ITS ---
STUDY: X-RAY - LEFT KNEE REASON FOR EXAM: Male, 68 years old. PAIN TECHNIQUE: 3 view(s) of the knee. COMPARISON: 03/17/2021. FINDINGS: Diffuse osteopenia with diffuse lucencies which may be associated with advanced osteoporosis. Otherwise normal distal femur. Mild osteophyte at the intercondylar eminence of tibia and upper patella. Otherwise normal visualized proximal tibia and fibula. There is mild arthrosis of the proximal tibiofibular articulation. There is no demonstrated fracture. Normal medial femorotibial compartment. Normal lateral femorotibial compartment. There is mild degenerative arthrosis of the patellofemoral articulation. There is minimal joint effusion. There are atherosclerotic calcifications. RAD/Knee 3 Views IMPRESSION: Minimal degenerative disease with no acute fracture or subluxation. Minimal joint effusion. Likely osteoporosis with diffuse lucencies as described. Difficult to exclude superimposed lytic lesions. If there is history of known neoplasm, recommend dedicated follow-up with bone scan. Electronically Signed: Aminah Schilling MD at 22:08 EDT ,
--- NOTE | 2023-07-10 11:50 | RAD_ITS ---
STUDY: X-RAY - RIGHT KNEE REASON FOR EXAM: Male, 68 years old. PAIN TECHNIQUE: 3 view(s) of the knee. COMPARISON: None. FINDINGS: Osteopenia, more so in the periarticular region. Osteophyte formation of the distal femur and proximal tibia, more so medially and intercondylar eminence of the tibia. Otherwise normal distal femur. Normal visualized proximal tibia and fibula. There is arthrosis of the proximal tibiofibular articulation. There is moderate to severe degenerative arthrosis of the medial femorotibial compartment with moderate joint space narrowing. There is mild degenerative arthrosis of the lateral femorotibial compartment. There is moderate degenerative arthrosis of the patellofemoral articulation. Trace joint fluid. There are atherosclerotic calcifications. RAD/Knee 3 Views IMPRESSION: Degenerative disease, most severely involving the medial joint compartment. No acute fracture or subluxation. Electronically Signed: Aminah Schilling MD at 22:05 EDT ,
[2023-07-10 15:32] LABS: Absolute Lymphocyte Count 1.52 X10^3/uL (0.83-4.51); Absolute Neutrophil Count 5.9 X10^3/uL (2.0-7.7); Basophil# 0.03 X10^3/uL; Basophil% 0.4 % (0-1); Eosinophil# 0.39 X10^3/uL; Eosinophils% 4.6 % (0-5); Hematocrit 41.8 % (40-54); Hemoglobin 14.5 g/dL (13.0-16.5); Lymphocyte # 1.52 X10^3/ul (0.83-4.51); Mean Corp Hgb Conc 34.7 g/dL (32-36); Mean Corpuscular Hgb 34.8 pg (27.0-32.0); Mean Corpuscular Volume 100.2 fL (80-94); Monocyte# 0.57 X10^3/uL; Monocyte% 6.8 % (0-10); NRBC Flagged by Analyzer 0 % (0-5); Neutrophil # 5.89 X10^3/uL (2.7-7.7); Neutrophil % 69.8 % (47-70); Platelet Count 273 K/mm3 (150-450); RBC Distribution Width CV 13.6 % (11.6-14.6); RBC Distribution Width SD 50.7 fl (35.1-43.9); Red Blood Count 4.17 M/mm3 (4.6-6.2); White Blood Count 8.4 K/mm3 (4.4-11.0)
[2023-07-10 15:41] LABS: ALB/GLOB Ratio 0.7 RATIO (0.9-2.4); AST(SGOT) 68 U/L (15-37); Alanine Aminotransfer ALT/SGPT 64 U/L (16-61); Albumin, Serum 2.9 g/dL (3.2-5.0); Alkaline Phosphatase 95 U/L (45-117); Anion Gap 7 (5-15); BUN 10 mg/dL (7-18); BUN/Creat Ratio 21.2 RATIO (10-20); Chloride 97 mmol/L (98-107); Creatinine, Serum 0.47 mg/dL (0.70-1.30); EST Glomerular Filtration Rate 188 mL/min (>60); Est Glom Filt Rate - Afr Amer 228 mL/min (>60); Glucose 110 mg/dL (74-106); Potassium 4.1 mmol/L (3.5-5.1); Protein, Total 6.9 g/dL (6.4-8.2); Sodium Level 129 mmol/L (136-145)
== END | disposition home or self-care (01) ==
LOC: MTLAB 11:42
PROVIDERS: PCP Family Medicine; Visit Provider Family Medicine
DX: R19.7 Diarrhea, unspecified (principal); M25.561 Pain in right knee
CPT/HCPCS: 36415; 73562; 80053; 85025

== ENCOUNTER 2023-08-19 13:46 | Observation (INO) | payer MEDICARE, MEDICAID, SELFPAY ==
[2019-02-17 13:19] VITALS: BMI 29.2
[2023-08-19 13:47] VITALS: TEMP 36.6
[2023-08-19 13:50] VITALS: BP 125/74; PULSE 65; RESP 18; O2SAT 93
[2023-08-19] MEDS: 0.9% Normal Saline (1000mL) 1,000 ML 150 ML IV (14:34)
[2023-08-19 14:42] VITALS: BP 120/68; PULSE 60; RESP 18; O2SAT 95
[2023-08-19 14:46] LABS: Absolute Lymphocyte Count 1.44 X10^3/uL (0.83-4.51); Absolute Neutrophil Count 5.3 X10^3/uL (2.0-7.7); Basophil# 0.02 X10^3/uL; Basophil% 0.3 % (0-1); Eosinophils% 5.1 % (0-5); Hematocrit 38.2 % (40-54); Hemoglobin 13.4 g/dL (13.0-16.5); Lymphocyte # 1.44 X10^3/ul (0.83-4.51); Lymphocyte % 18.5 % (19-41); Mean Corp Hgb Conc 35.1 g/dL (32-36); Mean Corpuscular Hgb 34.4 pg (27.0-32.0); Mean Corpuscular Volume 98.2 fL (80-94); Monocyte# 0.58 X10^3/uL; Monocyte% 7.5 % (0-10); NRBC Flagged by Analyzer 0 % (0-5); Neutrophil % 68.1 % (47-70); Platelet Count 237 K/mm3 (150-450); RBC Distribution Width CV 14.7 % (11.6-14.6); RBC Distribution Width SD 53.5 fl (35.1-43.9); Red Blood Count 3.89 M/mm3 (4.6-6.2); White Blood Count 7.8 K/mm3 (4.4-11.0)
[2023-08-19 15:16] LABS: AST(SGOT) 136 U/L (15-37); Alanine Aminotransfer ALT/SGPT 118 U/L (16-61); Albumin, Serum 2.5 g/dL (3.2-5.0); Alkaline Phosphatase 109 U/L (45-117); Anion Gap 4 (5-15); BUN 12 mg/dL (7-18); BUN/Creat Ratio 23.7 RATIO (10-20); Bilirubin, Direct 0.13 mg/dL (0.00-0.30); Calcium,Total 8.4 mg/dL (8.5-10.1); Chloride 104 mmol/L (98-107); Creatinine, Serum 0.51 mg/dL (0.70-1.30); EST Glomerular Filtration Rate 173 mL/min (>60); Est Glom Filt Rate - Afr Amer 210 mL/min (>60); Globulin 3.7 g/dL (2.2-4.2); Glucose 107 mg/dL (74-106); Potassium 3.9 mmol/L (3.5-5.1); Protein, Total 6.2 g/dL (6.4-8.2); Sodium Level 134 mmol/L (136-145)
--- NOTE | 2023-08-19 15:27 | EDS_ITS ---
HPI History of Present Illness Chief Complaint: Weakness Detail of Chief Complaint: Unable to care for self Informant: patient Narrative Narrative: Patient presents via EMS secondary to inability to care for himself. He states he has been lying in his recliner since November or December. He states anytime he tries to get up his legs give out on him. He wears a depends. He has a refrigerator next to his chair that he can put lunchmeat in. He states his neighbor comes over after work and brings him food and changes his depends for him. PCP and [facility] reportedly worked together today to realize patient cannot care for himself and sent him in for placement. 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 difficile colitis Cellulitis and abscess of upper extremity Cerebellar atrophy Chronic obstructive pulmonary disease Debility Declining functional status Dehydration Depression Essential hypertension Femoral neck fracture Frequent falls History of alcoholism Hyperkalemia Hyperlipidemia Hypomagnesemia Hyponatremia Incontinence of feces Incontinence of urine Ischemic cardiomyopathy Macrocytosis Physical debility Premature heartbeats Pulmonary nodule Pulmonary nodule Stage 1 mild COPD by GOLD classification Suicidal thoughts Syndrome of inappropriate ADH (SIADH) secretion Tobacco abuse Tobacco user Unintentional weight loss Urinary tract infection Ventricular tachycardia Ventricular tachycardia Home Medications amiodarone 200 mg tablet 200 mg PO BID HEART RHYTHM 05/25/22 [History Last Taken Unknown] clopidogrel 75 mg tablet 75 mg PO DAILY 05/25/22 [History Last Taken Unknown] metoprolol succinate 25 mg tablet,extended release 24 hr 12.5 mg PO DAILY BP 05/25/22 [History Last Taken Unknown] paroxetine HCl 20 mg tablet 30 mg PO DAILY 05/25/22 [History Last Taken Unknown] albuterol sulfate 2.5 mg/3 mL (0.083 %) solution for nebulization 2.5 mg (3 mL) inhalation Q2H PRN PRN Shortness of Breath/Wheezing #0 mL 06/06/22 [Rx Last Taken Unknown] loperamide 2 mg capsule 2 mg PO Q6H PRN loose stool 08/19/23 [History Last Taken Unknown] meloxicam 15 mg tablet 15 mg PO DAILY 08/19/23 [History Last Taken Unknown] trazodone 100 mg tablet 100 mg PO QHS 10/17/23 [History Last Taken Unknown] Allergy/AdvReac Type Severity Reaction Status Date / Time Iodine and Iodide Containing Allergy Severe Rash Verified 08/19/23 13:47 Produc ezetimibe [From Zetia] AdvReac Severe Myalgias Verified 08/19/23 13:47 Tvbouto-WPV-AxL Reductase AdvReac Severe Elevated Verified 08/19/23 13:47 Inhibitor Liver [Rriolrl-Jor-Hmn Reductase Enzymes Inhibitor] duloxetine [From Cymbalta] AdvReac Orthostasis Verified 08/19/23 13:47 /hyponatrem ia Family History Grandmother Myocardial infarction Grandfather Myocardial infarction Surgical History History of coronary artery stent placement (02/17/19) History of implantable cardiac defibrillator (ICD) (10/31/17) History of left heart catheterization (LHC) (01/21/19) Hx of knee surgery Hx of total hip arthroplasty Social History household members: family and other details: currently living with his father and his brother Donnell. housing: house number of children: 1 current occupational status: unemployed Smoking Status: Current every day smoker tobacco type: cigarettes how long ago did patient quit smokin11/2017 alcohol intake: current alcohol intake frequency: 3 or more drinks per day Alcohol type: wine substance use type: other details: Has abused RX Ativan in the past well-balanced diet: other details: says that he gets meals on wheels and they pile upin the refrigerator caffeine: No during the past year weight has: other details: decreased 20 lbs since November what type of physical activity do you participate in: none duration: < 15 minutes/day seatbelt use: always do you feel safe at home: Yes ROS ROS ED Constitutional Constitutional ED: Denies chills or fever(s) Eyes Eyes: Denies discharge from eye(s) ENT ENT ED: Denies discharge from eye(s), rhinorrhea or sore throat Cardiovascular Cardiovascular: Denies chest pain or palpitations Respiratory/Chest Respiratory/Chest: Denies cough or dyspnea Gastrointestinal Gastrointestinal: Reports diarrhea; Denies abdominal pain, nausea or vomiting Genitourinary Genitourinary ED: Denies dysuria Musculoskeletal Musculoskeletal: Denies back pain or extremity pain Integumentary Denies Abrasions or rash Neurologic Neurologic: Reports weakness; Denies headache(s) Psychiatric Psychiatric: Denies anxiety or depression Allergic/Immunologic Allergic/Immunologic ED: Denies lip swelling or urticaria EXAM Physical Exam Const Vital Signs: 08/19/23 13:47 08/19/23 13:50 08/19/23 13:51 Temperature 98 F Temperature Source Oral Pulse Rate 65 Respiratory Rate 18 Respiratory Effort Normal Non-Labored Respiratory Pattern Normal Blood Pressure 125/74 H Blood Pressure Mean 91 Pulse Ox 93 Oxygen Delivery Method Room Air 08/19/23 14:42 Temperature Temperature Source Pulse Rate 60 Respiratory Rate 18 Respiratory Effort Respiratory Pattern Blood Pressure 120/68 Blood Pressure Mean 85 Pulse Ox 95 Oxygen Delivery Method Room Air Positive well nourished and well developed General Appearance ED: well developed Eyes EOMs intact bilaterally Chest Wall inspection of chest normal and palpation of chest normal Resp normal respiratory effort and clear to auscultation bilaterally Cardio regular rate and regular rhythm GI non-tender Auscultation: normoactive bowel sounds Palpation: soft Narrative: Patient rolled to evaluate for any pressure sores. He has very slight erythema over the sacrum with only 2 small areas of very superficial skin breakdown. He does have a soft tissue growth noted that is nontender. Extremity Extremity Narrative: 1+ bilateral lower extremity edema. Palpable distal pulses. Neuro oriented x3 Neuro Narrative: Able to move extremities when lying in bed. MDM MDM MDM Narrative Medical decision making narrative: Patient will require placement for care and/or rehab. Labwork obtained to stephanie emanuel for leukocytosis, anemia, and electrolyte derangement. History & Record Review Discussion w/independent historian: Patient Lab Data Attestation: I reviewed the patient's lab results. Labs: Laboratory Results - last 24 hr 08/19/23 14:30 WBC 7.8 RBC 3.89 L Hgb 13.4 Hct 38.2 L MCV 98.2 H MCH 34.4 H MCHC 35.1 RDW Std Deviation 53.5 H RDW Coeff of Yoli 14.7 H Plt Count 237 MPV 10.0 Immature Gran % (Auto) 0.500 Neut % (Auto) 68.1 Lymph % (Auto) 18.5 L [place] % (Auto) 7.5 Eos % (Auto) 5.1 H Baso % (Auto) 0.3 Absolute Neuts (auto) 5.3 Absolute Lymphs (auto) 1.44 Nucleated RBC % 0 Sodium 134 L Potassium 3.9 Chloride 104 Carbon Dioxide 26.0 Anion Gap 4 L BUN 12 Creatinine 0.51 L Est GFR (MDRD) Af Amer 210 Est GFR (MDRD) Non-Af 173 BUN/Creatinine Ratio 23.7 H Glucose 107 H Calcium 8.4 L Total Bilirubin 0.40 Direct Bilirubin 0.13 AST 136 H ALT 118 H Alkaline Phosphatase 109 Total Protein 6.2 L Albumin 2.5 L Globulin 3.7 Treatment and Re-Evaluation :: CBC was normal white count 7.8 with a hemoglobin of 13.4. Chemistry studies unremarkable. Glucose is 107. AST is 136 and ALT is 118. Given the patient's unable to care for himself or ambulate, I will speak with hospitalist regarding admission for therapy evaluation and placement. Discharge Plan Triage Chief Complaint: Weakness ED Provider: Cris Villafana Dx/Rx/DC Orders Clinical Impression: Unable to ambulate, Adult failure to thrive Prescriptions: No Action amiodarone 200 mg tablet 200 mg PO BID clopidogrel 75 mg tablet 75 mg PO DAILY paroxetine HCl 20 mg tablet 30 mg PO DAILY metoprolol succinate 25 mg tablet extended release 24 hr 12.5 mg PO DAILY albuterol sulfate 2.5 mg /3 mL (0.083 %) Solution For Nebulization 2.5 mg inhalation Q2H PRN PRN (Reason: Shortness of Breath/Wheezing) Qty: 0 0RF loperamide 2 mg capsule 2 mg PO Q6H PRN (Reason: loose stool) Patient Comments: TAKE 1 CAPSULE BY MOUTH ATFER EACH LOOSE STOOL NEEDED, NO MORE THAN FOUR CAPSULES IN 24 HOURS meloxicam 15 mg tablet 15 mg PO DAILY Patient Comments: TAKE 1 TABLET BY MOUTH DAILY trazodone 100 mg tablet 100 mg PO QHS Patient Comments: Take 1 tablet by mouth at bedtime Primary Care Provider: Gautam Deleon Referrals: Gautam Deleon MD [Primary Care Provider] - Disposition Disposition: [facility]
--- NOTE | 2023-08-19 15:31 | CM.ED ---
Social Work SW spoke with [facility] nurse regarding patient. Pt has been living independently and PCP Dr. Deleon had referred patient for [facility] program due to needs. Pt has reportedly been chair bound and does not leave his chair. Pt is incontinent and has a mini fridge next to his chair. Pt's neighbor reportedly brings food and will come assist him with needs in the evening. Reportedly the neighbor has been giving patient care and changing depends in the evening as patient has no assistance. Pt's brother reportedly takes pt to the doctor a few times a year. Pt has had debility and nurse reports general failure to thrive. Nurse reports there is no food in the home and pt is likely malnourished. Pt does not qualify for passport program and aides would need to be private duty. Pt has previously not been agreeable to assistance or SNF but pt is now recognizing his need for therapy. [facility] and Dr. Deleon feel SNF is in the patient's best interest and nurse reports ED can call Dr. Deleon with questions/concern. SW will follow for patient needs and status as patient is still under medical review. Edith Jaimes BLUEPRINT PROCESSOR, INSTRUCTIONAL FACILITATOR
--- NOTE | 2023-08-19 15:49 | ED.RN ---
no open areas noted to buttocks
--- NOTE | 2023-08-19 15:56 | PCM.HP.STD ---
HPI - General General Date of Admission: 08/19/23 Date of Service: 08/19/23 Chief Complaint: Adult FTT, unable to safely care for self. HPI Narrative The patient is a 68 y/o M w/ PMHx: EtOH abuse with chronic alcoholic hepatitis/transaminitis/BZD abuse history in remission, COPD, CAD, Anxiety and Depression, Tobacco use, Hx SIADH, Hx VT, HTN, HLD, Chronic gait debility with known cerebellar atrophy, CAD s/p PCI, Ischemic cardiomyopathy s/p AICD who presents to the [facility] ED on 08/19/23 with history of significant debility and inability to safely care for himself nearly spending his days day-to-day in a recliner since November wearing depends requiring a refrigerator next to his chair to even be able to access his food with assistance from his neighbor as well as the community care network however given his significant decline prompted ED referral for placement. Work-up in the ED included T98, heart rate 65, BP 125/74, respiratory rate 18, 93% on room air, CBC with WBC 7.8, hemoglobin 13.4, platelet 237 without marked shift, CMP with sodium 134, BUN/creatinine 12/0.51, glucose 107, hepatic profile with AST/ALT 136/118, alk phos 109, direct bilirubin 0.13, total bilirubin 0.40 with previous history of LFT elevations. In the ED patient ministered maintenance IV fluids. [facility] Medical History (Updated 08/19/23 @ 16:[address] 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 difficile colitis Cerebellar atrophy Chronic obstructive pulmonary disease Essential hypertension Femoral neck fracture Former tobacco use Frequent falls History of alcoholism Hyperlipidemia Hyponatremia Incontinence of feces Incontinence of urine Ischemic cardiomyopathy Physical debility Pulmonary nodule Stage 1 mild COPD by GOLD classification Syndrome of inappropriate ADH (SIADH) secretion Ventricular tachycardia Home Medications amiodarone 200 mg tablet 200 mg PO BID HEART RHYTHM 05/25/22 [History Last Taken Unknown] clopidogrel 75 mg tablet 75 mg PO DAILY 05/25/22 [History Last Taken Unknown] metoprolol succinate 25 mg tablet,extended release 24 hr 12.5 mg PO DAILY BP 05/25/22 [History Last Taken Unknown] paroxetine HCl 20 mg tablet 30 mg PO DAILY 05/25/22 [History Last Taken Unknown] albuterol sulfate 2.5 mg/3 mL (0.083 %) solution for nebulization 2.5 mg (3 mL) inhalation Q2H PRN PRN Shortness of Breath/Wheezing #0 mL 06/06/22 [Rx Last Taken Unknown] loperamide 2 mg capsule 2 mg PO Q6H PRN loose stool 08/19/23 [History Last Taken Unknown] meloxicam 15 mg tablet 15 mg PO DAILY 08/19/23 [History Last Taken Unknown] trazodone 100 mg tablet 100 mg PO QHS 08/19/23 [History Last Taken Unknown] Allergy/AdvReac Type Severity Reaction Status Date / Time Iodine and Iodide Containing Allergy Severe Rash Verified 08/19/23 13:47 Produc ezetimibe [From Zetia] AdvReac Severe Myalgias Verified 08/19/23 13:47 Dvullna-JRZ-WyQ Reductase AdvReac Severe Elevated Verified 08/19/23 13:47 Inhibitor Liver [Klpcjem-Yar-Brk Reductase Enzymes Inhibitor] duloxetine [From Cymbalta] AdvReac Orthostasis Verified 08/19/23 13:47 /hyponatrem ia Family History Grandmother Myocardial infarction Grandfather Myocardial infarction Surgical History History of coronary artery stent placement (02/17/19) History of implantable cardiac defibrillator (ICD) (10/31/17) History of left heart catheterization (LHC) (01/21/19) Hx of knee surgery Hx of total hip arthroplasty Social History (Updated 08/19/23 @ 16:[address] Cami Paredes MD) household members: family and other details: Currently living with his father and his brother Donnell. housing: house number of children: 1 current occupational status: unemployed Smoking Status: Light Smoker (<10/day) how long ago did patient quit smoking: Smokes 2.5 packs per week. alcohol intake: former year quit: 2012 details: Sober 13-14 months. substance use type: other details: Has abused RX Ativan in the past, remains clean. well-balanced diet: other details: says that he gets meals on wheels and they pile upin the refrigerator caffeine: No during the past year weight has: other details: decreased 20 lbs since November what type of physical activity do you participate in: none duration: < 15 minutes/day seatbelt use: always do you feel safe at home: Yes ROS ROS Narrative Admission Review of Systems: CONSTITUTIONAL: No weight loss, fever, chills, + weakness or fatigue. HEENT: Eyes: No visual loss, blurred vision, double vision or yellow sclerae. Ears, Nose, Throat: No hearing loss, sneezing, congestion, runny nose or sore throat. SKIN: No rash or itching, lesions, wounds. CARDIOVASCULAR: No chest pain, chest pressure or chest discomfort, palpitations, edema, orthopnea, syncopal events. RESPIRATORY: No shortness of breath, cough or sputum, wheezing, hemoptysis. GASTROINTESTINAL: No anorexia, nausea, vomiting or diarrhea, abdominal pain, melena, BRBPR. GENITOURINARY: No dysuria, frequency, urgency or retention. NEUROLOGICAL: + Chronic gait debility with cerebellar atrophy, chronic BL LE weakness, Chronic orthostasis. No headache, paralysis, change in bowel or bladder control, seizure. MUSCULOSKELETAL: + muscle, back pain, joint pain or stiffness. HEMATOLOGIC: + anemia, easy bleeding or bruising. LYMPHATICS: No enlarged nodes. No history of splenectomy. PSYCHIATRIC: + history of depression or anxiety. ENDOCRINOLOGIC: No reports of sweating, cold or heat intolerance. No polyuria or polydipsia. ALLERGIES: No history of asthma, hives, eczema or rhinitis. Vital Signs Vital Signs Vital Signs: 08/19/23 13:47 08/19/23 13:50 08/19/23 13:51 Temperature 98 F Temperature Source Oral Pulse Rate 65 Respiratory Rate 18 Respiratory Effort Normal Non-Labored Respiratory Pattern Normal Blood Pressure 125/74 H Blood Pressure Mean 91 Pulse Ox 93 Oxygen Delivery Method Room Air 08/19/23 14:42 Temperature Temperature Source Pulse Rate 60 Respiratory Rate 18 Respiratory Effort Respiratory Pattern Blood Pressure 120/68 Blood Pressure Mean 85 Pulse Ox 95 Oxygen Delivery Method Room Air Physical Exam Narrative Physical Examination: General: Awake, alert, oriented x 3 and cooperative, seated upright in the ED bed in no apparent distress. Skin: Normal color, normal turgor, no icterus, no cyanosis except occasional staged ecchymoses. HEENT: AT/NC, EOMI, PERRLA, MMM, no carotid bruits or JVD noted. Lungs: Mildly diminished, greater bases, proper effort no rales, ronchi or wheezing. Heart: Regular rate and rhythm; no gallop, rub audible. Abdomen: Soft, NTTP, ND, mildly hyperactive BS, + HM. Extremities: No cyanosis, clubbing, or edema. Neurological: Patient awake, alert, oriented as noted, cognitive function intact; pupils equally reactive to light and accommodation, cranial nerves II-XII grossly normal, moving all 4 extremities, no focal deficits, strength moderately globally decreased, he notes it is worse when he attempts to ambulate. Psychiatric: Affect appears mildly flat otherwise normal, no acute evidence of depressive or anxiety feelings but does have underlying history. Results Lab / Micro Data 08/19/23 14:30 08/19/23 14:30 Labs: Laboratory Results - last 24 hr 08/19/23 14:30: WBC 7.8, RBC 3.89 L, Hgb 13.4, Hct 38.2 L, MCV 98.2 H, MCH 34.4 H, MCHC 35.1, RDW Std Deviation 53.5 H, RDW Coeff of Yoli 14.7 H, Plt Count 237, MPV 10.0, Immature Gran % (Auto) 0.500, Neut % (Auto) 68.1, Lymph % (Auto) 18.5 L, [place] % (Auto) 7.5, Eos % (Auto) 5.1 H, Baso % (Auto) 0.3, Absolute Neuts (auto) 5.3, Absolute Lymphs (auto) 1.44, Nucleated RBC % 0, Sodium 134 L, Potassium 3.9, Chloride 104, Carbon Dioxide 26.0, Anion Gap 4 L, BUN 12, Creatinine 0.51 L, Est GFR (MDRD) Af Amer 210, Est GFR (MDRD) Non-Af 173, BUN/Creatinine Ratio 23.7 H, Glucose 107 H, Calcium 8.4 L, Total Bilirubin 0.40, Direct Bilirubin 0.13, AST 136 H, ALT 118 H, Alkaline Phosphatase 109, Total Protein 6.2 L, Albumin 2.5 L, Globulin 3.7 Assessment & Plan Assessment/Plan (1) Adult failure to thrive: PLAN: Plan The patient is a 68 y/o M w/ PMHx: EtOH abuse with chronic alcoholic hepatitis/transaminitis/BZD abuse history in remission, COPD, CAD, Anxiety and Depression, Tobacco use, Hx SIADH, Hx VT, HTN, HLD, Chronic gait debility with known cerebellar atrophy, CAD s/p PCI, Ischemic cardiomyopathy s/p AICD who presents to the [facility] ED on 08/19/23 with history of significant debility and inability to safely care for himself nearly spending his days day-to-day in a recliner since November wearing depends requiring a refrigerator next to his chair to even be able to access his food with assistance from his neighbor as well as the community care network however given his significant decline prompted ED referral for placement. #1. Adult FTT with progressively worsening debility: Will admit to [facility], will maintain on fall precautions, no obvious infection, labs with no acute findings and stable elevated LFTs, already judiciously hydrated in the ED thus will defer continued, PT/OT/case management consultation for discharge planning but from description patient would benefit from at least assisted living if not skilled facility placement. #2. Former EtOH abuse with chronic alcoholic hepatitis/transaminitis: Admission CMP with AST/LT 136/118, alk phos 109, D bili 0.13, T. bili 0.40, similar to previous and has vacillated, will repeat CMP in AM, sober x 13-14 months. #3. CAD/ischemic cardiomyopathy: Status post AICD and PCI placement, will continue Plavix, metoprolol, statin allergy with significantly elevated liver enzymes associated and myalgias. #4. Hypertension: Continue home regimen including metoprolol, PRN hydralazine. #5. Hyperlipidemia: Not on statin therapy with history of elevated LFTs and myalgias. #6. Hx VT: s/p AICD placement, will continue patient home metoprolol and amiodarone regimen, not chronically anticoagulated secondary to alcohol abuse and fall risk. #7. Chronic COPD: We will maintain on ATC budesonide therapy, PRN albuterol, HOB, IS parameters. #8. Chronic gait debility with known cerebellar atrophy: Complicates presentation, increases fall risk, PT/OT/case management consulted for placement evaluation as noted. #9. Anxiety and depression: We will continue patient on paroxetine regimen. #10. Tobacco Abuse: Encouraged cessation, inpatient consultation per RT, NR if desired. #11. BZD abuse history: Patient notes in remission. #12. DVT prophylaxis: Lovenox. #13. CODE status: Patient RUBEN is his brother and living will is currently in place. Discussed CODE status at length including difference between FULL code, DNR-CCA and DNR-CC status. Following discussions about the differences in these status, requested Full Code status. Advanced Care Planning Face to Face Time: 16 minutes. Charges/Coding Visit Charges Inpatient E&M: 97205 Init Hosp L2 Procedures Hospitalists Procedures: 57620 Advncd Care Plan 30 Min
[2023-08-19 15:59] LABS: Bacteria 0 SEEN /hpf (None Seen); Mucous, Urine 0 SEEN /hpf (<or=2+); Red Blood Cells-Urine 0 SEEN /hpf (0-5); Squamous Epithelial Cells - UA 0 SEEN /hpf (0-5)
[2023-08-19 16:00] LABS: Color, Urine Yellow (Yellow); Glucose, Dipstick Normal (Normal); Ketone-Dipstick Negative (Negative); Leukocyte Esterase-Dipstick 25 /ul (Negative); Nitrite-Dipstick Negative (Negative); Occult Blood-Urine Negative /ul (Negative); Protein-Dipstick Negative (Negative); Urine Bilirubin Dipstick Negative (Negative); Urine Clarity Clear (Clear); Urine Urobilinogen 1 mg/dl (Normal)
[2023-08-19 16:14] VITALS: BP 120/68; PULSE 60; RESP 18; TEMP 36.6; O2SAT 95
[2023-08-19 16:19] LABS: White Blood Cells 0-5 SEEN /hpf (0-5)
[2023-08-19 16:35] LABS: Magnesium 1.9 mg/dL (1.6-2.6); Phosphorus 3.5 mg/dL (2.5-4.9)
[2023-08-19 17:17] VITALS: BMI 20.9
[2023-08-19 17:18] VITALS: BP 144/75; PULSE 59; RESP 18; TEMP 36.5; O2SAT 98
[2023-08-19 21:05] VITALS: BP 117/68; PULSE 59; RESP 18; TEMP 36.6; O2SAT 96
[2023-08-19] MEDS: Menthol/Lanolin/Calamine/Znox 113 GM Tube 1 APPLIC TOPICAL (21:12)
[2023-08-19] MEDS: traZODone 100 MG Tablet PO (21:12)
[2023-08-19] MEDS: Loperamide 2 MG Capsule PO (21:55)
[2023-08-20 03:54] VITALS: BP 135/76; PULSE 62; RESP 18; TEMP 36.6; O2SAT 92
[2023-08-20 06:00] VITALS: BMI 20.9
[2023-08-20 06:51] LABS: Absolute Lymphocyte Count 1.99 X10^3/uL (0.83-4.51); Absolute Neutrophil Count 5.3 X10^3/uL (2.0-7.7); Basophil# 0.04 X10^3/uL; Basophil% 0.5 % (0-1); Eosinophil# 0.61 X10^3/uL; Hematocrit 38.1 % (40-54); Lymphocyte # 1.99 X10^3/ul (0.83-4.51); Mean Corp Hgb Conc 34.1 g/dL (32-36); Mean Corpuscular Hgb 33.5 pg (27.0-32.0); Mean Corpuscular Volume 98.2 fL (80-94); Mean Platelet Vol. 10.7 fl (6.2-12.0); Monocyte# 0.73 X10^3/uL; Monocyte% 8.4 % (0-10); NRBC Flagged by Analyzer 0 % (0-5); Neutrophil # 5.25 X10^3/uL (2.7-7.7); Neutrophil % 60.6 % (47-70); Platelet Count 236 K/mm3 (150-450); RBC Distribution Width CV 14.6 % (11.6-14.6); RBC Distribution Width SD 53.1 fl (35.1-43.9); Red Blood Count 3.88 M/mm3 (4.6-6.2); White Blood Count 8.7 K/mm3 (4.4-11.0)
[2023-08-20 07:42] LABS: ALB/GLOB Ratio 0.6 RATIO (0.9-2.4); AST(SGOT) 119 U/L (15-37); Alanine Aminotransfer ALT/SGPT 110 U/L (16-61); Albumin, Serum 2.2 g/dL (3.2-5.0); Alkaline Phosphatase 103 U/L (45-117); Anion Gap 5 (5-15); BUN 14 mg/dL (7-18); Calcium,Total 8.1 mg/dL (8.5-10.1); Chloride 108 mmol/L (98-107); Creatinine, Serum 0.48 mg/dL (0.70-1.30); EST Glomerular Filtration Rate 184 mL/min (>60); Est Glom Filt Rate - Afr Amer 222 mL/min (>60); Estimated Creatinine Clearance 75.03 ml/min; Globulin 3.4 g/dL (2.2-4.2); Glucose 101 mg/dL (74-106); Potassium 3.8 mmol/L (3.5-5.1); Protein, Total 5.6 g/dL (6.4-8.2); Sodium Level 138 mmol/L (136-145); Thyroid Stim Hormone (TSH) 3.01 uIU/mL (0.358-3.74)
[2023-08-20 08:12] LABS: Vitamin B12 479 pg/mL (211-911)
[2023-08-20 09:00] VITALS: BP 132/86; PULSE 61; RESP 18; TEMP 36.8; O2SAT 94
[2023-08-20] MEDS: Menthol/Lanolin/Calamine/Znox 113 GM Tube 1 APPLIC TOPICAL ×2 (09:03→21:01)
[2023-08-20 09:06] VITALS: PULSE 61
[2023-08-20] MEDS: Paroxetine 20 MG Tablet 30 MG PO (09:06)
[2023-08-20] MEDS: Amiodarone 200 MG Tablet PO ×2 (09:06→17:04)
[2023-08-20] MEDS: Metoprolol(XL)Succ 25 MG Tablet 12.5 MG PO (09:06)
[2023-08-20] MEDS: Enoxaparin 40 MG/0.4 ML Syringe SC (09:06)
[2023-08-20] MEDS: Clopidogrel Bisulfate 75 MG Tablet PO (09:06)
[2023-08-20] MEDS: Meloxicam 15 MG Tablet PO (09:06)
--- NOTE | 2023-08-20 09:12 | CASEMGMT ---
Discharge Planning A list of?SNF?providers including quality and resource use data and consistent with the patient's preferred geographic region, medical needs, and insurance network was created in [facility] Guide.? This list was provided to the SW. Simona Chandra, Discharge Planning Asst.
--- NOTE | 2023-08-20 12:15 | CASEMGMT ---
Social Work SW met with pt and introduced self and role of SW. Discharge plan discussed. Pt lives in a one story apartment with a ramped entrance. Pt states that he is not able to leave his recliner. Cannot transfer to wheelchair or bedside commode. Pt stays in the recliner and uses depends, although he is continent. Pt baths using wipes. Pt has a neighbor Augusta who gets pt's groceries, cooks meals and assists with IADLS. Pt is current with [facility]. Pt denies financial concerns but is realistic that he needs rehab to try to get stronger prior to returning home. A list of SNF providers including quality and resource use data and consistent with the patient?s preferred geographic region, medical needs, and insurance network were provided from the [facility] Guide. Pt's preferred provider is [facility]. Referral sent to TCU. SW will await determination of acceptance. ALEXEI Solis
--- NOTE | 2023-08-20 13:25 | PN_ITS ---
Subjective Subjective Patient seen and examined. He had no active complaints. He had an uneventful night. He was admitted and is being managed for failure to thrive. PT OT on board. He has otherwise remained hemodynamically stable. Objective Data Objective Data Vital Signs: Vital Signs Temp Pulse Resp BP Pulse Ox O2 Del Method 98.3 F 61 18 132/86 H 94 Room Air 08/20/23 09:00 08/20/23 09:06 08/20/23 09:00 08/20/23 09:00 08/20/23 09:00 08/20/23 09:00 Oxygen Delivery Method Room Air Weight: 163 lb 2.273 oz Body Mass Index (BMI) 20.9 Intake & Output: Intake and Output for Last 24 Hours 08/18/23 08/19/23 08/20/23 23:59 23:59 23:59 Intake Total 1020 / 1020 300 / 300 Output Total 500 / 500 500 / 500 Balance 520 / 520 -200 / -200 Lab / Micro Data 08/20/23 05:45 08/20/23 05:45 Labs: Laboratory Results - last 24 hr 08/19/23 14:30: WBC 7.8, RBC 3.89 L, Hgb 13.4, Hct 38.2 L, MCV 98.2 H, MCH 34.4 H, MCHC 35.1, RDW Std Deviation 53.5 H, RDW Coeff of [place] 14.7 H, Plt Count 237, MPV 10.0, Immature Gran % (Auto) 0.500, Neut % (Auto) 68.1, Lymph % (Auto) 18.5 L, [place] % (Auto) 7.5, Eos % (Auto) 5.1 H, Baso % (Auto) 0.3, Absolute Neuts (auto) 5.3, Absolute Lymphs (auto) 1.44, Nucleated RBC % 0, Sodium 134 L, Potassium 3.9, Chloride 104, Carbon Dioxide 26.0, Anion Gap 4 L, BUN 12, Creatinine 0.51 L, Est GFR (MDRD) Af Amer 210, Est GFR (MDRD) Non-Af 173, BUN/Creatinine Ratio 23.7 H, Glucose 107 H, Calcium 8.4 L, Phosphorus 3.5, Magnesium 1.9, Total Bilirubin 0.40, Direct Bilirubin 0.13, AST 136 H, ALT 118 H , Alkaline Phosphatase 109, Total Protein 6.2 L, Albumin 2.5 L, Globulin 3.7 08/19/23 15:51: Urine Color Yellow, Urine Clarity Clear, Urine pH 6.0, Ur Specific [place] 1.010, Urine Protein Negative, Urine Glucose (UA) Normal, Urine Ketones Negative, Urine Occult Blood Negative, Urine Nitrite Negative, Urine Randal irubin Negative, Urine Urobilinogen 1 H, Ur Leukocyte Esterase 25 H, Urine RBC 0 SEEN, Urine WBC 0-5 SEEN, Ur Squamous Epith Cells 0 SEEN, Urine Bacteria 0 SEEN, Urine Mucus 0 SEEN 08/20/23 05:45: WBC 8.7, RBC 3.88 L, Hgb 13.0, Hct 38.1 L, MCV 98.2 H, MCH 33.5 H, MCHC 34.1, RDW Std Deviation 53.1 H, RDW Coeff of [place] 14.6, Plt Count 236, MPV 10.7, Immature Gran % (Auto) 0.500, Neut % (Auto) 60.6, Lymph % (Auto) 23.0, [place] % (Auto) 8.4, Eos % (Auto) 7.0 H, Baso % (Auto) 0.5, Absolute Neuts (auto) 5.3, Absolute Lymphs (auto) 1.99, Nucleated RBC % 0, Sodium 138, Potassium 3.8, Chloride 108 H, Carbon Dioxide 25.0, Anion Gap 5, BUN 14, Creatinine 0.48 L, Estim Creat Clear Calc 75.03, Est GFR (MDRD) Af Amer 222, Est GFR (MDRD) Non-Af 184, BUN/Creatinine Ratio 29.0 H, Glucose 101, Calcium 8.1 L, Total Bilirubin 0.20, AST 119 H, ALT 110 H, Alkaline Phosphatase 103, Total Protein 5.6 L, Albumin 2.2 L, Globulin 3.4, Albumin/Globulin Ratio 0.6 L, Vitamin B12 479, Folate 5.00, TSH 3.01 Physical Exam Const alert, oriented x3 and no apparent distress Constitutional Narrative: frail General Appearance: cooperative and well developed HEENT normocephalic, head/scalp atraumatic, moist oral mucous membranes and oropharynx normal Eyes EOMs intact bilaterally Neck no lymphadenopathy, supple and no JVD Lymph Lymphatic: no lymphadenopathy noted and no lymphedema noted Resp normal respiratory effort, normal air movement and clear to auscultation bilaterally Cardio regular rate, regular rhythm, S1 normal heart sound, S2 normal heart sound and no murmurs GI normal to inspection, nondistended, normoactive bowel sounds, soft to palpation, non-tender and non-distended Extremity normal capillary refill, no clubbing, cyanosis or edema and no calf tenderness Skin General Skin Exam: no breakdown Neuro CN's II-XII intact bilaterally, no focal motor deficits and no sensory deficits noted Motor Exam: strength 5/5 throughout and general weakness Psych thought process normal and cooperative Appearance: appropriate Assessment & Plan Assessment/Plan (1) Adult failure to thrive: PLAN: Plan #Debility with failure to thrive * PT/OT on board * fall precautions * will benefit from placement * #CAD: s/p ICD and stents. n metoprolol and plavix. Not on statins due to history of myopathy #HypertensioN; on metoprolol #History of ventricular tachycardia: s/p ICD. On metoprolol and amiodarone #COPD: Not in exacerbation. On breathing treatments bronchodilators. #Anxiety and depression: On paroxetine. #Nicotine dependence: Counseled to quit. Nicotine patch as needed. #History of cerebellar atrophy: * Due to chronic alcohol abuse. has known gait instability. PT OT on board. For precautions. DVT prophylaxis: Lovenox Disposition: For placement Charges/Coding Visit Charges Inpatient E&M: 81246 Subs Hosp L2
[2023-08-20 14:06] VITALS: BP 149/76; PULSE 63; RESP 18; TEMP 36.6; O2SAT 93
--- NOTE | 2023-08-20 15:14 | ART_ITS ---
Reason For Study: LE Ulcers Procedure A bilateral lower extremity continuous wave Doppler with analog waveform analysis,segmental pressures,and ankle brachial indexes without exercise. Left Segmental Pressures Left brachial= 131mmHg. Left posterior tibial artery = 166mmHg. Left dorsalis pedis artery = 162mmHg. Left digit = 135 mmHg. The left posterior tibial artery waveforms are triphasic. The left dorsalis pedis waveforms are triphasic. Right Segmental Pressures Right posterior tibial artery = 158mmHg. Right dorsalis pedis artery = 166mmHg. Right digit = 138 mmHg. The right posterior tibial artery waveforms are triphasic. The right dorsalis pedis waveforms are triphasic. Indices The right ankle brachial index by the posterior tibial artery is 1.21. The right ankle brachial index by the dorsalis pedis is 1.27. The right digital-brachial index is 1.05. The left ankle brachial index by the posterior tibial artery is 1.27. The left ankle brachial index by the dorsalis pedis is 1.24. The left digital-brachial index is 1.03. VL/Lower Ext Art Exam w/o Exercis Interpretation Summary Right HIGINIO 1.27, normal. TBI anf Doppler/PVR waveforms of the right leg normal a t rest. Left HIGINIO 1.27, normal. TBI and Doppler/PVR waveforms of the left leg normal at rest. Ordering Physician: Luis Long Referring Physician: Gautam Deleon Performed By: Patric Mendoza RVT
--- NOTE | 2023-08-20 15:17 | CON.PCM_ITS ---
Assessment & Plan Assessment/Plan (1) Cellulitis of right lower limb: PLAN: Exam performed Vital signs stable No leukocytosis Right foot x-rays ordered Noninvasive arterial studies ordered Right foot wound excisionally debrided down to and including level of subcutaneous tissue of all nonviable tissue using #15 blade without incident. No anesthesia used. Hemostasis obtained with light compression. Patient tolerated procedure well. Wound was cultured Patient can transfer in surgical shoe on right, if patient is able to transfer Ordered eggcrate to offload heels bilaterally Recommend Augmentin for localized cellulitis to right foot, will await culture results We will follow-up tomorrow for nail care. (2) Non-pressure chronic ulcer of other part of right foot with fat layer exposed: HPI Consult Data Date of Consult: 08/20/23 HPI Narrative HPI Narrative: FRANCIS MORTON, is a 68 M who presents debility. Pain denies ambulating when at home. States he has not ambulated in some time. Patient has a right lateral foot wound at the level of the fifth metatarsal base present for 3 months. Patient feels that is likely related from the pressure on the site based on the way he positions his foot and external rotation. Patient denies any constitutional symptoms. Patient has pain to the site with manipulation of the wound. No other complaints. [facility] Medical History Abnormal LFTs Anxiety and depression Atherosclerotic heart disease of [place] coronary artery without angina pectoris Benzodiazepine abuse in remission C. difficile colitis Cerebellar atrophy Chronic obstructive pulmonary disease Essential hypertension Femoral neck fracture Former tobacco use Frequent falls History of alcoholism Hyperlipidemia Hyponatremia Incontinence of feces Incontinence of urine Ischemic cardiomyopathy Physical debility Pulmonary nodule Stage 1 mild COPD by GOLD classification Syndrome of inappropriate ADH (SIADH) secretion Ventricular tachycardia Home Medications amiodarone 200 mg tablet 200 mg PO BID HEART RHYTHM 05/25/22 [History Last Taken Unknown] clopidogrel 75 mg tablet 75 mg PO DAILY 05/25/22 [History Last Taken Unknown] metoprolol succinate 25 mg tablet,extended release 24 hr 12.5 mg PO DAILY BP 05/25/22 [History Last Taken Unknown] paroxetine HCl 20 mg tablet 30 mg PO DAILY 05/25/22 [History Last Taken Unknown] albuterol sulfate 2.5 mg/3 mL (0.083 %) solution for nebulization 2.5 mg (3 mL) inhalation Q2H PRN PRN Shortness of Breath/Wheezing #0 mL 06/06/22 [Rx Last Taken Unknown] loperamide 2 mg capsule 2 mg PO Q6H PRN loose stool 08/19/23 [History Last Taken Unknown] meloxicam 15 mg tablet 15 mg PO DAILY 08/19/23 [History Last Taken Unknown] trazodone 100 mg tablet 100 mg PO QHS 08/19/23 [History Last Taken Unknown] Allergy/AdvReac Type Severity Reaction Status Date / Time Iodine and Iodide Containing Allergy Severe Rash Verified 08/19/23 13:47 Produc ezetimibe [From Zetia] AdvReac Severe Myalgias Verified 08/19/23 13:47 Uechnup-HJT-YkT Reductase AdvReac Severe Elevated Verified 08/19/23 13:47 Inhibitor Liver [Uilikvd-Prz-Uol Reductase Enzymes Inhibitor] duloxetine [From Cymbalta] AdvReac Orthostasis Verified 08/19/23 13:47 /hyponatrem ia Family History Grandmother Myocardial infarction Grandfather Myocardial infarction Surgical History History of coronary artery stent placement (02/17/19) History of implantable cardiac defibrillator (ICD) (10/31/17) History of left heart catheterization (LHC) (01/21/19) Hx of knee surgery Hx of total hip arthroplasty Social History household members: family and other details: Currently living with his father and his brother Donnell. housing: house number of children: 1 current occupational status: unemployed Smoking Status: Light Smoker (<10/day) how long ago did patient quit smoking: Smokes 2.5 packs per week. alcohol intake: former year quit: 2012 details: Sober 13-14 months. substance use type: other details: Has abused RX Ativan in the past, remains clean. well-balanced diet: other details: says that he gets meals on wheels and they pile upin the refrigerator caffeine: No during the past year weight has: other details: decreased 20 lbs since November what type of physical activity do you participate in: none duration: < 15 minutes/day seatbelt use: always do you feel safe at home: Yes ROS Constitutional Constitutional: Denies change in weight, chills or headache(s) Eyes Eyes: Denies acute decrease in peripheral vision, change in eye color or change in vision ENT HEENT: Denies bleeding gums, change in voice or dental pain Cardiovascular Cardiovascular: Reports erythema on extremities; Denies dyspnea or dyspnea at rest Respiratory/Chest Respiratory/Chest: Denies chest congestion, dusky skin or dyspnea Gastrointestinal Gastrointestinal: Denies anorexia, belching or bloating Physical Exam Narrative Vascular: Dorsalis pedis posterior tibial pulses palpable 1 out of 4 to bilateral lower extremity. Some atrophic skin changes noted such as shiny taut appearance. Absent digital hair growth noted to bilateral lower extremity. Neurologic: Light touch protective sensation intact to bilateral feet. Dermatologic: Full-thickness wound noted to the lateral fifth metatarsal base measuring 0.5 x 0.5 x 0.3 cm predebridement. Postdebridement the wound was 1.0 x 1.0 x 0.5 cm with a clean granular base. Wound is limited to subcutaneous tissue down does not demonstrate a deep probing or undermining. There is mild periwound edema and erythema. Musculoskeletal: No gross deformity. Muscular strength diminished bilateral lower extremity. Const alert and oriented x3 Lab / Micro Data 08/20/23 05:45 08/20/23 05:45 Labs: Laboratory Results - last 24 hr 08/19/23 14:30: Phosphorus 3.5, Magnesium 1.9 08/19/23 15:51: Urine Color Yellow, Urine Clarity Clear, Urine pH 6.0, Ur Specific [place] 1.010, Urine Protein Negative, Urine Glucose (UA) Normal, Urine Ketones Negative, Urine Occult Blood Negative, Urine Nitrite Negative, Urine Bilirubin Negative, Urine Urobilinogen 1 H, Ur Leukocyte Esterase 25 H, Urine RBC 0 SEEN, Urine WBC 0-5 SEEN, Ur Squamous Epith Cells 0 SEEN, Urine Bacteria 0 SEEN, Urine Mucus 0 SEEN 08/20/23 05:45: WBC 8.7, RBC 3.88 L, Hgb 13.0, Hct 38.1 L, MCV 98.2 H, MCH 33.5 H, MCHC 34.1, RDW Std Deviation 53.1 H, RDW Coeff of [place] 14.6, Plt Count 236, MPV 10.7, Immature Gran % (Auto) 0.500, Neut % (Auto) 60.6, Lymph % (Auto) 23.0, [place] % (Auto) 8.4, Eos % (Auto) 7.0 H, Baso % (Auto) 0.5, Absolute Neuts (auto) 5.3, Absolute Lymphs (auto) 1.99, Nucleated RBC % 0, Sodium 138, Potassium 3.8, Chloride 108 H, Carbon Dioxide 25.0, Anion Gap 5, BUN 14, Creatinine 0.48 L, Estim Creat Clear Calc 75.03, Est GFR (MDRD) Af Amer 222, Est GFR (MDRD) Non-Af 184, BUN/Creatinine Ratio 29.0 H, Glucose 101, Calcium 8.1 L, Total Bilirubin 0.20, AST 119 H, ALT 110 H, Alkaline Phosphatase 103, Total Protein 5.6 L, Albumin 2.2 L, Globulin 3.4, Albumin/Globulin Ratio 0.6 L, Vitamin B12 479, Folate 5.00, TSH 3.01
--- NOTE | 2023-08-20 15:25 | RAD_ITS ---
STUDY: X-RAY - RIGHT FOOT CLINICAL: Male, 68 years old. right foot wound TECHNIQUE: 3 view(s) of the foot. COMPARISON: None. FINDINGS: Normal talus,, and tarsal bones. Moderate-sized plantar calcaneal spur and tiny posterior enthesophyte Normal visualized subtalar,, calcaneocuboid, tarsal and tarsometatarsal articulations. Talonavicular spurring. Normal metatarsi. Normal metatarsophalangeal joint of the great toe. Normal tibial and fibular sesamoid bones. Normal interphalangeal joint of the great toe. Normal phalanges of the great toe. Normal second through fifth metatarsophalangeal joints. Normal phalanges of the lesser toes. Degenerative changes of the DIP joints The soft tissue structures are unremarkable. RAD/Foot min 3 Views IMPRESSION: Degenerative changes. No acute fracture or other significant bony pathology No definitive radiographic evidence for acute osteomyelitis however this may be further assessed with MRI if clinically warranted Electronically Signed: Zhao Mcallister MD at 22:53 EDT ,
--- NOTE | 2023-08-20 16:11 | CASEMGMT ---
Met with patient to complete STILL form. STILL form explained to patient who voiced understanding and signed form. Original form placed in pt?s chart and copy provided to patient. Simona Chandra, Discharge Planning Asst.
--- NOTE | 2023-08-20 16:45 | CASEMGMT ---
Social Work [facility] is unable to accept pt. SW met with pt and updated. Pt frustrated but this news. SW provided support and reassurance and discussed need for SNF. SW assisted pt in reviewing SNF list. [facility]. Referrals to be sent. SW will continue to follow for SNF placement. ALEXEI Solis
[2023-08-20] MEDS: Ensure Plus High Protein 120 ML LIQUID PO ×2 (17:04→21:01)
[2023-08-20 20:58] VITALS: BP 141/82; PULSE 67; RESP 16; TEMP 36.8; O2SAT 92
[2023-08-20] MEDS: Mag Hydrox/Al Hydrox/Simeth 30 ML UDC PO (21:02)
[2023-08-20] MEDS: Amox/Clavulanate 875 MG Tablet PO (21:02)
[2023-08-21] VITALS (7 sets, daily range): BP systolic 121–140; BP diastolic 70–81; PULSE 59–67; RESP 16; TEMP 36.7–37.1; O2SAT 90–94
[2023-08-21] MEDS: traZODone 100 MG Tablet PO ×2 (00:15→21:47)
[2023-08-21] MEDS: Clopidogrel Bisulfate 75 MG Tablet PO (07:45)
[2023-08-21] MEDS: Metoprolol(XL)Succ 25 MG Tablet 12.5 MG PO (07:45)
[2023-08-21] MEDS: Mag Hydrox/Al Hydrox/Simeth 30 ML UDC PO ×2 (07:45→20:01)
[2023-08-21] MEDS: Paroxetine 20 MG Tablet 30 MG PO (07:46)
[2023-08-21] MEDS: Amiodarone 200 MG Tablet PO ×2 (07:46→17:04)
[2023-08-21] MEDS: Enoxaparin 40 MG/0.4 ML Syringe SC (07:47)
[2023-08-21] MEDS: Ensure Plus High Protein 120 ML LIQUID PO ×3 (07:50→17:05)
[2023-08-21] MEDS: Menthol/Lanolin/Calamine/Znox 113 GM Tube 1 APPLIC TOPICAL ×4 (07:54→21:47)
--- NOTE | 2023-08-21 07:56 | WOUNDNOTE ---
wound photo: right lateral foot
[2023-08-21 08:25] LABS: Absolute Lymphocyte Count 1.42 X10^3/uL (0.83-4.51); Basophil# 0.03 X10^3/uL; Basophil% 0.2 % (0-1); Hematocrit 41.4 % (40-54); Hemoglobin 14.2 g/dL (13.0-16.5); Lymphocyte # 1.42 X10^3/ul (0.83-4.51); Lymphocyte % 9.6 % (19-41); Mean Corp Hgb Conc 34.3 g/dL (32-36); Mean Corpuscular Hgb 33.7 pg (27.0-32.0); Mean Corpuscular Volume 98.3 fL (80-94); Mean Platelet Vol. 10.3 fl (6.2-12.0); Monocyte# 0.97 X10^3/uL; Monocyte% 6.6 % (0-10); NRBC Flagged by Analyzer 0 % (0-5); Neutrophil # 11.98 X10^3/uL (2.7-7.7); Neutrophil % 81.1 % (47-70); Platelet Count 220 K/mm3 (150-450); RBC Distribution Width CV 14.7 % (11.6-14.6); RBC Distribution Width SD 53.3 fl (35.1-43.9); Red Blood Count 4.21 M/mm3 (4.6-6.2); White Blood Count 14.8 K/mm3 (4.4-11.0)
--- NOTE | 2023-08-21 08:30 | PN_ITS ---
Subjective Subjective No changes overnight, denies constitutional symptoms or pain Objective Data Objective Data Vital Signs: Vital Signs Temp Pulse Resp BP Pulse Ox O2 Del Method 98.1 F 67 16 135/75 H 90 Room Air 08/21/23 03:37 08/21/23 07:45 08/21/23 03:37 08/21/23 03:37 08/21/23 07:00 08/21/23 07:00 Oxygen Delivery Method Room Air Weight: 74 kg Body Mass Index (BMI) 20.9 Intake & Output: Intake and Output for Last 24 Hours 08/19/23 08/20/23 08/21/23 23:59 23:59 23:59 Intake Total 1020 / 1020 300 / 300 800 / 800 Output Total 500 / 500 1400 / 1400 900 / 900 Balance 520 / 520 -1100 / -1100 -100 / -100 Lab / Micro Data 08/21/23 08:10 08/20/23 05:45 Labs: Laboratory Results - last 24 hr 08/21/23 08:10: WBC 14.8 H, RBC 4.21 L, Hgb 14.2, Hct 41.4, MCV 98.3 H, MCH 33.7 H, MCHC 34.3, RDW Std Deviation 53.3 H, RDW Coeff of [place] 14.7 H, Plt Count 220, MPV 10.3, Immature Gran % (Auto) 0.500, Neut % (Auto) 81.1 H, Lymph % (Auto) 9.6 L, [place] % (Auto) 6.6, Eos % (Auto) 2.0, Baso % (Auto) 0.2, Absolute Neuts (auto) 12.0 H, Absolute Lymphs (auto) 1.42, Nucleated RBC % 0 Micro: Microbiology 08/20/23 15:05 Wound - Right Foot Gram Stain - Final Radiography Diagnostic Testing: Radiology Impression Foot X-Ray 08/20/23 15:25 IMPRESSION: Degenerative changes. No acute fracture or other significant bony pathology No definitive radiographic evidence for acute osteomyelitis however this may be further assessed with MRI if clinically warranted Electronically Signed: Zhao Mcallister MD at 22:53 EDT , Physical Exam Narrative Neurovascular status unchanged Full-thickness wound significantly improved stable granular base resolved periwound erythema No gross deformity or sign DVT Assessment & Plan Assessment/Plan (1) Non-pressure chronic ulcer of other part of right foot with fat layer exposed: PLAN: Exam performed Resolving cellulitis right foot, recommend p.o. antibiotics for 1 week pending C&S Offload for surgical shoe right foot for transfer if patient is able to transfer [place] wound with Betadine dry sterile dressing and Abel today We will reevaluate patient 1 more time tomorrow (2) Cellulitis of right lower limb:
[2023-08-21 08:54] LABS: Anion Gap 5 (5-15); BUN 12 mg/dL (7-18); BUN/Creat Ratio 29.3 RATIO (10-20); Calcium,Total 8.4 mg/dL (8.5-10.1); Chloride 106 mmol/L (98-107); Creatinine, Serum 0.41 mg/dL (0.70-1.30); EST Glomerular Filtration Rate 222 mL/min (>60); Est Glom Filt Rate - Afr Amer 269 mL/min (>60); Estimated Creatinine Clearance 75.03 ml/min; Glucose 116 mg/dL (74-106); Potassium 3.9 mmol/L (3.5-5.1); Sodium Level 136 mmol/L (136-145)
--- NOTE | 2023-08-21 09:13 | CASEMGMT ---
Discharge Planning Referrals sent to [facility] at [facility] and [facility] via [facility]. [facility] declined d/t not bed availability. SW updated. Simona Chandra, Discharge Planning Asst.
[2023-08-21] MEDS: Amox/Clavulanate 875 MG Tablet PO ×2 (10:31→21:47)
[2023-08-21] MEDS: Meloxicam 15 MG Tablet PO (10:31)
--- NOTE | 2023-08-21 10:40 | CASEMGMT ---
Social Work SW met with pt and updated that [facility] no beds available and [facility] is considering. Pt confirms he stopped drinking 14-15 months ago. [facility] to be updated. Pt voicing understanding. Active listening and support provided to pt as he discussed his hospital stay and need for SNF placement. SW will await determination of acceptance from [facility]. Plan: [facility], pending acceptance and precALEXEI Kemp
--- NOTE | 2023-08-21 11:04 | PN_ITS ---
Subjective Subjective Patient seen and examined. He had no complaints and had an uneventful night. Review of systems is otherwise negative. He is awaiting placement. Objective Data Objective Data Vital Signs: Vital Signs Temp Pulse Resp BP Pulse Ox O2 Del Method 98.8 F 67 16 140/76 H 92 Room Air 08/21/23 08:55 08/21/23 08:55 08/21/23 08:55 08/21/23 08:55 08/21/23 08:55 08/21/23 08:55 Oxygen Delivery Method Room Air Weight: 163 lb 2.273 oz Body Mass Index (BMI) 20.9 Intake & Output: Intake and Output for Last 24 Hours 08/19/23 08/20/23 08/21/23 23:59 23:59 23:59 Intake Total 1020 / 1020 300 / 300 800 / 800 Output Total 500 / 500 1400 / 1400 900 / 900 Balance 520 / 520 -1100 / -1100 -100 / -100 Lab / Micro Data 08/21/23 08:10 08/21/23 08:10 Labs: Laboratory Results - last 24 hr 08/21/23 08:10: WBC 14.8 H, RBC 4.21 L, Hgb 14.2, Hct 41.4, MCV 98.3 H, MCH 33.7 H, MCHC 34.3, RDW Std Deviation 53.3 H, RDW Coeff of [place] 14.7 H, Plt Count 220, MPV 10.3, Immature Gran % (Auto) 0.500, Neut % (Auto) 81.1 H, Lymph % (Auto) 9.6 L, [place] % (Auto) 6.6, Eos % (Auto) 2.0, Baso % (Auto) 0.2, Absolute Neuts (auto) 12.0 H, Absolute Lymphs (auto) 1.42, Nucleated RBC % 0, Sodium 136, Potassium 3.9, Chloride 106, Carbon Dioxide 25.0, Anion Gap 5, BUN 12, Creatinine 0.41 L, Estim Creat Clear Calc 75.03, Est GFR (MDRD) Af Amer 269, Est GFR (MDRD) Non-Af 222, BUN/Creatinine Ratio 29.3 H, Glucose 116 H, Calcium 8.4 L Micro: Microbiology 08/20/23 15:05 Wound - Right Foot Gram Stain - Final 08/20/23 15:05 Wound - Right Foot Wound Culture - Preliminary Staphylococcus aureus Radiography Diagnostic Testing: Radiology Impression Foot X-Ray 08/20/23 15:25 IMPRESSION: Degenerative changes. No acute fracture or other significant bony pathology No definitive radiographic evidence for acute osteomyelitis however this may be further assessed with MRI if clinically warranted Electronically Signed: Zhao Mcallister MD at 22:53 EDT Reading Location ID and State: [facility] / [place] Tel , Service support , Physical Exam Const alert, oriented x3 and no apparent distress Constitutional Narrative: frail General Appearance: cooperative and well developed HEENT normocephalic, head/scalp atraumatic, moist oral mucous membranes and oropharynx normal Eyes PERRL and EOMs intact bilaterally Neck no lymphadenopathy, supple and no JVD Lymph Lymphatic: no lymphadenopathy noted and no lymphedema noted Resp normal respiratory effort, normal air movement and clear to auscultation bilaterally Cardio regular rate, regular rhythm, S1 normal heart sound, S2 normal heart sound and no murmurs GI normal to inspection, nondistended, normoactive bowel sounds, soft to palpation, non-tender and non-distended Extremity normal capillary refill, no clubbing, cyanosis or edema and no calf tenderness Skin Skin Narrative: Right foot has a callus over the lateral aspect of the right foot. Right foot bandaged. Neuro CN's II-XII intact bilaterally, no focal motor deficits and no sensory deficits noted Motor Exam: strength 5/5 throughout and general weakness Psych thought process normal and cooperative Appearance: appropriate Assessment & Plan Assessment/Plan (1) Adult failure to thrive: PLAN: Plan #Debility with failure to thrive * PT/OT on board * fall precautions * will benefit from placement * #CAD: s/p ICD and stents. On metoprolol and plavix. Not on statins due to histo ry of myopathy #Cellulitis of the right foot * podiatry on board. Had bedside debridement done yesterday by podiatry * right foot noninvasive arterial studies ordered * wound cultures ordered * #Hypertension: on metoprolol #History of ventricular tachycardia: s/p ICD. On metoprolol and amiodarone #COPD: Not in exacerbation. On breathing treatments bronchodilators. #Anxiety and depression: On paroxetine. #Nicotine dependence: Counseled to quit. Nicotine patch as needed. #History of cerebellar atrophy: * Due to chronic alcohol abuse. has known gait instability. PT OT on board. For precautions. DVT prophylaxis: Lovenox Disposition: For placement Charges/Coding Visit Charges Inpatient E&M: 97199 Subs Hosp L2
--- NOTE | 2023-08-21 11:52 | CASEMGMT ---
Discharge Planning Patient has been accepted by [facility]. SW updated. Simona Chandra, Discharge Planning Asst.
--- NOTE | 2023-08-21 11:54 | CASEMGMT ---
Discharge Planning W to submit for precert today. Simona Chandra, Discharge Planning Asst.
--- NOTE | 2023-08-21 12:14 | CHAPLAIN ---
Type of Pastoral Visit _x__ Initial Visit ___ Follow-up Visit ___ On-call Visit ___ General Patient Visit ___ Spiritual Assessment ___ Family Conference ___ Bereavement ___ Rapid Response ___ Code Blue ___ Other (describe below) Pastoral Care Referral From _x__ Patient ___ Family ___ Nurse ___ Physician ___ High School Math Teacher ___ Hospital Orderly ___ Other (describe below) Sacrament/Intervention ___ Active listening ___ Anointing ___ Mormon ___ Bereavement ___ Communion ___ Yissel exploration ___ ___ Life review ___ Prayer ___ Reconciliation ___ Sacrament of Sick _x__ Supportive presence ___ Wedding ___ Other (describe below) Pastoral Comments introduced self and role to patient who is lying down in bed and awake; pt states that he is fine, does not want anything except to sleep
--- NOTE | 2023-08-21 13:32 | CASEMGMT ---
[facility] pt. Precert to be started. SW met with pt and updated and pt is agreeable to dc plan. Plan: [facility], pending precert ALEXEI Solis
[2023-08-21] MEDS: MELATONIN 3 MG TABLET PO (21:47)
[2023-08-22 05:57] VITALS: BP 137/75; PULSE 60; RESP 16; TEMP 36.6; O2SAT 94
[2023-08-22 05:58] VITALS: BMI 20.6
[2023-08-22 07:58] VITALS: PULSE 62
[2023-08-22] MEDS: Metoprolol(XL)Succ 25 MG Tablet 12.5 MG PO (07:58)
[2023-08-22] MEDS: Amiodarone 200 MG Tablet PO ×2 (07:58→17:00)
[2023-08-22] MEDS: Meloxicam 15 MG Tablet PO (07:58)
[2023-08-22] MEDS: Clopidogrel Bisulfate 75 MG Tablet PO (07:58)
[2023-08-22] MEDS: Paroxetine 20 MG Tablet 30 MG PO (08:00)
[2023-08-22] MEDS: Amox/Clavulanate 875 MG Tablet PO (08:01)
[2023-08-22] MEDS: Enoxaparin 40 MG/0.4 ML Syringe SC (08:01)
[2023-08-22] MEDS: Ensure Plus High Protein 120 ML LIQUID PO ×3 (08:05→17:03)
[2023-08-22] MEDS: Menthol/Lanolin/Calamine/Znox 113 GM Tube 1 APPLIC TOPICAL ×3 (08:11→17:00)
[2023-08-22 08:56] VITALS: BP 136/83; PULSE 62; RESP 16; TEMP 36.8; O2SAT 92
[2023-08-22 11:18] VITALS: BP 136/75; PULSE 62; RESP 16; TEMP 36.8; O2SAT 94
--- NOTE | 2023-08-22 12:18 | PN_ITS ---
Subjective Subjective Patient seen and examined. He had no complaints. He feels well and had an uneventful night. Review of systems otherwise negative. He is awaiting placement. Objective Data Objective Data Vital Signs: Vital Signs Temp Pulse Resp BP Pulse Ox O2 Del Method 98.2 F 62 16 136/75 H 94 Room Air 08/22/23 11:18 08/22/23 11:18 08/22/23 11:18 08/22/23 11:18 08/22/23 11:18 08/22/23 11:18 Oxygen Delivery Method Room Air Weight: 160 lb 14.4 oz Body Mass Index (BMI) 20.6 Intake & Output: Intake and Output for Last 24 Hours 08/20/23 08/21/23 08/22/23 23:59 23:59 23:59 Intake Total 300 / 300 1050 / 1050 250 / 250 Output Total 1400 / 1400 1300 / 1300 700 / 700 Balance -1100 / -1100 -250 / -250 -450 / -450 Lab / Micro Data 08/21/23 08:10 08/21/23 08:10 Micro: Microbiology 08/20/23 15:05 Wound - Right Foot Gram Stain - Final 08/20/23 15:05 Wound - Right Foot Wound Culture - Final Meth. resistant Staph. aureus 08/20/23 15:05 Wound - Right Foot Anaerobic Culture - Preliminary Checking for anaerobes, further studies to follow. Radiography Diagnostic Testing: Radiology Impression Extremity Arterial Study 08/20/23 15:14 Interpretation Summary Right HIGINIO 1.27, normal. TBI anf Doppler/PVR waveforms of the right leg normal at rest. Left HIGINIO 1.27, normal. TBI and Doppler/PVR waveforms of the left leg normal at rest. Ordering Physician: Luis Long Referring Physician: Gautam Deleon Performed By: Patric Mendoza RVT Physical Exam Const alert, oriented x3 and no apparent distress Constitutional Narrative: frail General Appearance: cooperative and well developed HEENT normocephalic, head/scalp atraumatic, moist oral mucous membranes and oropharynx normal Eyes PERRL and EOMs intact bilaterally Neck no lymphadenopathy, supple and no JVD Lymph Lymphatic: no lymphadenopathy noted and no lymphedema noted Resp normal respiratory effort, normal air movement and clear to auscultation bilaterally Cardio regular rate, regular rhythm, S1 normal heart sound, S2 normal heart sound and no murmurs GI normal to inspection, nondistended, normoactive bowel sounds, soft to palpation, non-tender and non-distended Extremity normal capillary refill, no clubbing, cyanosis or edema and no calf tenderness Skin Skin Narrative: Right foot bandaged. General Skin Exam: no breakdown Neuro CN's II-XII intact bilaterally, no focal motor deficits and no sensory deficits noted Motor Exam: strength 5/5 throughout and general weakness Psych thought process normal and cooperative Appearance: appropriate Assessment & Plan Assessment/Plan (1) Adult failure to thrive: PLAN: Plan #Debility with failure to thrive * PT/OT on board * fall precautions * will benefit from placement * #CAD: s/p ICD and stents. On metoprolol and plavix. Not on statins due to history of myopathy #Cellulitis of the right foot * podiatry on board. Had bedside debridement done yesterday by podiatry * right foot noninvasive arterial studies showed right lower extremity ankle- brachial index of 1.27 which was normal and left HIGINIO was also 1.27 it was normal. * wound cultures ordered * #Hypertension: on metoprolol #History of ventricular tachycardia: s/p ICD. On metoprolol and amiodarone #COPD: Not in exacerbation. On breathing treatments bronchodilators. #Anxiety and depression: On paroxetine. #Nicotine dependence: Counseled to quit. Nicotine patch as needed. #History of cerebellar atrophy: * Due to chronic alcohol abuse. has known gait instability. PT OT on board. For precautions. DVT prophylaxis: Lovenox Disposition: awaiting placement Charges/Coding Visit Charges Inpatient E&M: 29654 Subs Hosp L2
--- NOTE | 2023-08-22 14:02 | PCM.PROGNOTE ---
Subjective Subjective No changes overnight, just denies constitutional symptoms, pain well controlled. Objective Data Objective Data Vital Signs: Vital Signs Temp Pulse Resp BP Pulse Ox O2 Del Method 98.2 F 62 16 136/75 H 94 Room Air 08/22/23 11:18 08/22/23 11:18 08/22/23 11:18 08/22/23 11:18 08/22/23 11:18 08/22/23 13:42 Oxygen Delivery Method Room Air Weight: 72.983 kg Body Mass Index (BMI) 20.6 Intake & Output: Intake and Output for Last 24 Hours 08/20/23 08/21/23 08/22/23 23:59 23:59 23:59 Intake Total 300 / 300 1050 / 1050 250 / 250 Output Total 1400 / 1400 1300 / 1300 700 / 700 Balance -1100 / -1100 -250 / -250 -450 / -450 Lab / Micro Data 08/21/23 08:10 08/21/23 08:10 Micro: Microbiology 08/20/23 15:05 Wound - Right Foot Gram Stain - Final 08/20/23 15:05 Wound - Right Foot Wound Culture - Final Meth. resistant Staph. aureus 08/20/23 15:05 Wound - Right Foot Anaerobic Culture - Preliminary Checking for anaerobes, further studies to follow. Radiography Diagnostic Testing: Radiology Impression Extremity Arterial Study 08/20/23 15:14 Interpretation Summary Right HIGINIO 1.27, normal. TBI anf Doppler/PVR waveforms of the right leg normal at rest. Left HIGINIO 1.27, normal. TBI and Doppler/PVR waveforms of the left leg normal at rest. Ordering Physician: Luis Long Referring Physician: Gautam Deleon Performed By: Patric Mendoza RVT Physical Exam Narrative Neurovascular status unchanged Full-thickness wound significantly improved stable granular base resolved periwound erythema. Toenails x5 on right and x5 on left elongated thickened with subungual debris. Pain upon palpation noted. No gross deformity or sign DVT Const alert and oriented x3 Assessment & Plan Assessment/Plan (1) Non-pressure chronic ulcer of other part of right foot with fat layer exposed: PLAN: Exam performed Seen as positive for MRSA, antibiotics changed to doxycycline 100 mg twice daily Offload for surgical shoe right foot for transfer if patient is able to transfer Redress wound with Betadine dry sterile dressing and Abel today Toenails x10 were debrided mechanically in length and thickness without incident We will recheck wound on 08/24/2023 if patient is still in house otherwise patient is stable for discharge with p.o. antibiotics for 10 days total (2) Cellulitis of right lower limb: (3) Tinea unguium: (4) Pain in right toe(s): (5) Pain in left toe(s):
[2023-08-22 15:21] VITALS: BP 121/97; PULSE 62; RESP 16; TEMP 36.9; O2SAT 95
--- NOTE | 2023-08-22 15:59 | CASEMGMT ---
Discharge Planning [facility] has received auth. SW updated. Simona Chandra, Discharge Planning Asst.
--- NOTE | 2023-08-22 16:15 | DS.PCM_ITS ---
Providers Date of Admission: 08/19/23 Date of Discharge: 08/22/23 Primary Care Physician: Dr. Gautam Deleon MD Consultations 08/20/23 14:31 Consult: Podiatry Routine Consulting Provider: Luis Long Reason for Consult: right foot calloused/wound area EMERGENT Consult: No MD Notified: Yes Date Notified: 08/20/23 Time Notified: 14:31 Method of Notification: Verbal 08/20/23 15:59 Consult: Onc/Wound/tire servicer Routine Comment: Reason for Consult:: right outer foot wound Reason For Visit: ADULT FTT Diagnosis Discharge Diagnosis (1) Non-pressure chronic ulcer of other part of right foot with fat layer exposed: Status: Chronic Code(s): L97.512 - Non-pressure chronic ulcer of other part of right foot with fat layer exposed (2) Cellulitis of right lower limb: Status: Acute Code(s): L03.115 - Cellulitis of right lower limb (3) Tinea unguium: Status: Acute Code(s): B35.1 - Tinea unguium (4) Pain in right toe(s): Status: Acute Code(s): M79.674 - Pain in right toe(s) (5) Pain in left toe(s): Status: Acute Code(s): M79.675 - Pain in left toe(s) Plan #Debility with failure to thrive * PT/OT on board * fall precautions * will benefit from placement * #CAD: s/p ICD and stents. On metoprolol and plavix. Not on statins due to history of myopathy #Cellulitis of the right foot * podiatry on board. Had bedside debridement done yesterday by podiatry * right foot noninvasive arterial studies showed right lower extremity ankle- brachial index of 1.27 which was normal and left HIGINIO was also 1.27 it was normal. * wound cultures ordered * #Hypertension: on metoprolol #History of ventricular tachycardia: s/p ICD. On metoprolol and amiodarone #COPD: Not in exacerbation. On breathing treatments bronchodilators. #Anxiety and depression: On paroxetine. #Nicotine dependence: Counseled to quit. Nicotine patch as needed. #History of cerebellar atrophy: * Due to chronic alcohol abuse. has known gait instability. PT OT on board. For precautions. DVT prophylaxis: Lovenox Disposition: awaiting placement Medications at Discharge Home Medications amiodarone 200 mg tablet 200 mg PO BID HEART RHYTHM 05/25/22 clopidogrel 75 mg tablet 75 mg PO DAILY 05/25/22 metoprolol succinate 25 mg tablet,extended release 24 hr 12.5 mg PO DAILY BP 05/25/22 paroxetine HCl 20 mg tablet 30 mg PO DAILY 05/25/22 albuterol sulfate 2.5 mg/3 mL (0.083 %) solution for nebulization 2.5 mg (3 mL) inhalation Q2H PRN PRN Shortness of Breath/Wheezing #0 mL 06/06/22 loperamide 2 mg capsule 2 mg PO Q6H PRN loose stool 08/19/23 meloxicam 15 mg tablet 15 mg PO DAILY 08/19/23 trazodone 100 mg tablet 100 mg PO QHS 08/19/23 doxycycline hyclate 100 mg tablet 100 mg PO BID #20 tabs 08/22/23 Hospital Course Operations None Procedures None Summary of Care Provided Minutes Spent on Discharge: 55 Hospital Course: Patient is a 68-year-old male with an extensive past medical history as outlined. He was admitted through the ED on 08/19/2023 with a complaint of debility and inability to care for himself. Since November he had just been sitting in recliner completely unable to take care of himself. His neighbors had been assisting with his care as well as the community care network but he had recently declined significantly so he was brought into the ED for placement. On admission labs were essentially unremarkable. He was hydrated with fluids and admitted and managed for debility with adult failure to thrive. Case management was consulted for placement. Podiatry was consulted on account of calluses on his right foot. He had bedside debridement done and the foot was bandaged. Wound cultures grew MRSA. He was therefore placed on p.o. doxycycline 100 mg twice daily to complete a 10-day course and was given a prescription for this at discharge. His hospital course was otherwise un complicated. He was discharged to care home facility after obtaining pre- CERT on 08/22/2023. He is to follow-up with his primary care doctor and follow- up with podiatry on outpatient basis. Patient was seen and examined prior to discharge. He felt well and had no complaints. He had an uneventful night. Review of systems otherwise negative. Labs and vitals reviewed. Home meds reviewed and reconciled. Physical Exam Const alert, oriented x3 and no apparent distress Constitutional Narrative: frail General Appearance: cooperative, comfortable, well kempt and well developed HEENT normocephalic, head/scalp atraumatic, hearing grossly normal bilaterally, moist oral mucous membranes and oropharynx normal Mouth: oral and palatal mucosa normal Eyes PERRL and EOMs intact bilaterally Neck no lymphadenopathy, supple and no JVD Lymph Lymphatic: no lymphadenopathy noted and no lymphedema noted Resp normal respiratory effort, normal air movement, no use of accessory muscles and clear to auscultation bilaterally Cardio regular rate, regular rhythm, S1 normal heart sound, S2 normal heart sound and no murmurs GI normal to inspection, nondistended, normoactive bowel sounds, soft to palpation, non-tender and non-distended Extremity normal to inspection, full ROM, normal capillary refill, no clubbing, cyanosis or edema and no calf tenderness Skin Skin Narrative: Right foot bandaged. General Skin Exam: no breakdown Neuro CN's II-XII intact bilaterally, moves all extremities, no focal motor deficits and no sensory deficits noted Sensorium / Orientation: awake and alert Motor Exam: strength 5/5 throughout and general weakness Psych thought process normal and cooperative Appearance: appropriate Weight / BMI Weight Weight: 160 lb 14.4 oz Body Mass Index (BMI) 20.6 ABG / Lab / Microbiology Data 08/21/23 08:10 08/21/23 08:10 Microbiology: Microbiology 08/20/23 15:05 Wound - Right Foot Gram Stain - Final 08/20/23 15:05 Wound - Right Foot Wound Culture - Final Meth. resistant Staph. aureus 08/20/23 15:05 Wound - Right Foot Anaerobic Culture - Preliminary Checking for anaerobes, further studies to follow. D/C Instructions Discharge Diet: Low fat / Low cholesterol Discharge Activity: Return to Normal Activity Weight Bearing Status: Weight bearing as tolerated Call your doctor if you observe: Fever of 101 or Higher, Shortness of breath, Dizziness, Swelling in the ankles and Chest pain Meaningful Use Info Meaningful Use Diagnoses (Choose all that apply): None applicable Discharge Plan Admission Admit Date/Time: 08/19/23 16:12 Primary Reason for Your Visit: failure to thrive Attending Provider: Sarah Kathleen Primary Care Provider: Gautam Deleon Consulting Providers: Cami Paredes; Luis Long Instructions Patient Instructions: ED Weakness (Uncertain Cause) Additional Instructions / Restrictions: Offload for surgical shoe right foot for transfer if patient is able to transfer Discharge Orders/Prescriptions Prescriptions: New doxycycline hyclate 100 mg tablet 100 mg PO BID Qty: 20 0RF Continued amiodarone 200 mg tablet 200 mg PO BID clopidogrel 75 mg tablet 75 mg PO DAILY paroxetine HCl 20 mg tablet 30 mg PO DAILY metoprolol succinate 25 mg tablet extended release 24 hr 12.5 mg PO DAILY albuterol sulfate 2.5 mg /3 mL (0.083 %) Solution For Nebulization 2.5 mg inhalation Q2H PRN PRN (Reason: Shortness of Breath/Wheezing) Qty: 0 0 RF loperamide 2 mg capsule 2 mg PO Q6H PRN (Reason: loose stool) Patient Comments: TAKE 1 CAPSULE BY MOUTH ATFER EACH LOOSE STOOL NEEDED, NO MORE THAN FOUR CAPSULES IN 24 HOURS meloxicam 15 mg tablet 15 mg PO DAILY Patient Comments: TAKE 1 TABLET BY MOUTH DAILY trazodone 100 mg tablet 100 mg PO QHS Patient Comments: Take 1 tablet by mouth at bedtime Referrals / Follow Up: Luis Long DPM [Med Staff - Active Staff] - Within 1 Week Gautam Deleon MD [Primary Care Provider] - Within 2 Weeks Disposition Disposition (needs filled in before D/C Order can be placed): [facility] Charges/Coding Visit Charges Inpatient E&M: 80523 Disch Hosp >30min
--- NOTE | 2023-08-22 16:52 | CASEMGMT ---
Discharge Planning Green sheet and transport form placed in chart. Simona Chandra, Discharge Planning Asst.
[2023-08-22] MEDS: Mag Hydrox/Al Hydrox/Simeth 30 ML UDC PO (16:58)
--- NOTE | 2023-08-22 17:03 | CASEMGMT ---
Social Work Precert has been obtained for pt to go to [facility] today. Physician updated and pt is ready for discharge today. Pt updated and agreeable to discharge plan. PASRR completed in [facility]. Pt requesting his brother Donnell be notified. Disposition: [facility], skilled level of care ALEXEI Solis
--- NOTE | 2023-08-22 17:20 | CASEMGMT ---
Discharge Planning Signed med list and transport time sent to [facility] via [facility] and fax. [facility] will transport patient by cot at 6p. Nursing, SW, patient, and his brother updated.
--- NOTE | 2023-08-22 17:56 | TREXTCAR_ITS ---
Diet Diet Order/Speech Therapy: 08/19/23 17:17 Diet: Regular - General Food consistency:: Regular Liquid Consistency:: Regular/Thin Routine Orders/Code Status Enema Type: Fleetz Enema Frequency: Daily PRN Suppository Type: Dulcolax 10mg Suppository Frequency: Daily PRN O2 Frequency: PRN Keep PO Greater than or Equal to (%): 90 Wound(s) right outer foot- calloused/dry: Wound Type: Pressure Injury right lateral foot: Wound Type: Pressure Injury Therapies Physical Therapy: Eval and Treat Occupational Therapy: Eval and Treat Problem/Diagnosis (1) Non-pressure chronic ulcer of other part of right foot with fat layer exposed: Status: Chronic Code(s): L97.512 - Non-pressure chronic ulcer of other part of right foot with fat layer exposed (2) Cellulitis of right lower limb: Status: Acute Code(s): L03.115 - Cellulitis of right lower limb (3) Tinea unguium: Status: Acute Code(s): B35.1 - Tinea unguium (4) Pain in right toe(s): Status: Acute Code(s): M79.674 - Pain in right toe(s) (5) Pain in left toe(s): Status: Acute Code(s): M79.675 - Pain in left toe(s) Plan #Debility with failure to thrive * PT/OT on board * fall precautions * will benefit from placement * #CAD: s/p ICD and stents. On metoprolol and plavix. Not on statins due to history of myopathy #Cellulitis of the right foot * podiatry on board. Had bedside debridement done yesterday by podiatry * right foot noninvasive arterial studies showed right lower extremity ankle- brachial index of 1.27 which was normal and left HIGINIO was also 1.27 it was normal. * wound cultures ordered * #Hypertension: on metoprolol #History of ventricular tachycardia: s/p ICD. On metoprolol and amiodarone #COPD: Not in exacerbation. On breathing treatments bronchodilators. #Anxiety and depression: On paroxetine. #Nicotine dependence: Counseled to quit. Nicotine patch as needed. #History of cerebellar atrophy: * Due to chronic alcohol abuse. has known gait instability. PT OT on board. For precautions. DVT prophylaxis: Lovenox Disposition: awaiting placement Allergies/Procedures Done in Hospital Allergies Iodine and Iodide Containing Produc Allergy (Severe, Verified 08/19/23 13:47) Rash ezetimibe [From Zetia] Adverse Reaction (Severe, Verified 08/19/23 13:47) Myalgias Ekgoavo-SGE-HnB Reductase Inhibitor [Feedvdx-Gyk-Dqk Reductase Inhibitor] Adverse Reaction (Severe, Verified 08/19/23 13:47) Elevated Liver Enzymes duloxetine [From Cymbalta] Adverse Reaction (Verified 08/19/23 13:47) Orthostasis/hyponatremia Type of Care/Length of Stay Estimated LOS: Convalescent Care Less Than 30 days Type of Care Needed: Skilled Rehab Potential: Fair Prognosis: Fair Additional Orders/Day of Discharge Day of Discharge: 08/22/23 Dietary and Speech Recommendations Dietitian Recommendations/Changes: Continue Regular diet to optimize oral intakes. RD will order 120mL EPHP 4x daily with medpass to provide supplemental energy. Discharge Plan Admission Admit Date/Time: 08/19/23 16:12 Primary Reason for Your Visit: failure to thrive Attending Provider: Sarah Kathleen Primary Care Provider: Gautam Deleon Consulting Providers: Cami Paredes; Luis Long Instructions Patient Instructions: ED Weakness (Uncertain Cause) Additional Instructions / Restrictions: Offload for surgical shoe right foot for transfer if patient is able to transfer Discharge Orders/Prescriptions Prescriptions: New doxycycline hyclate 100 mg tablet 100 mg PO BID Qty: 20 0RF Continued amiodarone 200 mg tablet 200 mg PO BID clopidogrel 75 mg tablet 75 mg PO DAILY paroxetine HCl 20 mg tablet 30 mg PO DAILY metoprolol succinate 25 mg tablet extended release 24 hr 12.5 mg PO DAILY albuterol sulfate 2.5 mg /3 mL (0.083 %) Solution For Nebulization 2.5 mg inhalation Q2H PRN PRN (Reason: Shortness of Breath/Wheezing) Qty: 0 0RF loperamide 2 mg capsule 2 mg PO Q6H PRN (Reason: loose stool) Patient Comments: TAKE 1 CAPSULE BY MOUTH ATFER EACH LOOSE STOOL NEEDED, NO MORE THAN FOUR CAPSULES IN 24 HOURS meloxicam 15 mg tablet 15 mg PO DAILY Patient Comments: TAKE 1 TABLET BY MOUTH DAILY trazodone 100 mg tablet 100 mg PO QHS Patient Comments: Take 1 tablet by mouth at bedtime Referrals / Follow Up: Luis Long DPM [Med Staff - Active Staff] - Within 1 Week Gautam Deleon MD [Primary Care Provider] - Within 2 Weeks Disposition Disposition (needs filled in before D/C Order can be placed): Detention Facility
== END 2023-08-22 19:30 | disposition skilled nursing facility (03) ==
LOC: ED 16:24 → MS3 17:11
PROVIDERS: Admitting Provider Family Medicine; Emergency Provider Emergency Medicine; PCP Family Medicine; Visit Provider Student in an Organized Health Care Education/Training Program
DX: L03.115 Cellulitis of right lower limb (principal); L97.512 Non-pressure chronic ulcer of other part of right foot with fat layer exposed; F13.11 Sedative, hypnotic or anxiolytic abuse, in remission; B95.62 Methicillin resistant Staphylococcus aureus infection as the cause of diseases classified elsewhere; R62.7 Adult failure to thrive; I25.10 Atherosclerotic heart disease of native coronary artery without angina pectoris; R53.1 Weakness; J44.89 Other specified chronic obstructive pulmonary disease; R53.81 Other malaise; E78.5 Hyperlipidemia, unspecified; M79.674 Pain in right toe(s); I10 Essential (primary) hypertension; M79.675 Pain in left toe(s); F17.200 Nicotine dependence, unspecified, uncomplicated; I25.5 Ischemic cardiomyopathy; B35.1 Tinea unguium; F41.9 Anxiety disorder, unspecified; Z95.810 Presence of automatic (implantable) cardiac defibrillator; Z79.899 Other long term (current) drug therapy; Z79.02 Long term (current) use of antithrombotics/antiplatelets; F32.A Depression, unspecified; K70.10 Alcoholic hepatitis without ascites; F10.11 Alcohol abuse, in remission
CPT/HCPCS: 11042; 36415; 73630; 80048; 80053; 80076; 81001; 82607; 82746; 83735; 84100; 84443; 85025; 87070; 87075; 87077; 87186; 87205; 93923; 94668; 96360; 96361; 96372; 97110; 97162; 97166; 97530; 97535; 97802; 99221; 99252; 99285; 99406; J7030; A4216; G0378; G0463

== ENCOUNTER → 2023-09-16 | Outpatient (REF) | payer MEDICARE, MEDICAID, SELFPAY ==
[2023-09-01 14:43] VITALS: BMI 29.2
[2023-09-16 09:52] LABS: Absolute Lymphocyte Count 2.17 X10^3/uL (0.83-4.51); Absolute Neutrophil Count 4.6 X10^3/uL (2.0-7.7); Basophil# 0.02 X10^3/uL; Basophil% 0.2 % (0-1); Eosinophil# 0.67 X10^3/uL; Eosinophils% 8.2 % (0-5); Hematocrit 39.8 % (40-54); Lymphocyte # 2.17 X10^3/ul (0.83-4.51); Lymphocyte % 26.6 % (19-41); Mean Corp Hgb Conc 35.2 g/dL (32-36); Mean Corpuscular Hgb 33.8 pg (27.0-32.0); Mean Corpuscular Volume 96.1 fL (80-94); Mean Platelet Vol. 10.6 fl (6.2-12.0); Monocyte# 0.71 X10^3/uL; Monocyte% 8.7 % (0-10); NRBC Flagged by Analyzer 0 % (0-5); Neutrophil # 4.56 X10^3/uL (2.7-7.7); Neutrophil % 55.8 % (47-70); Platelet Count 253 K/mm3 (150-450); RBC Distribution Width CV 13.5 % (11.6-14.6); RBC Distribution Width SD 48.2 fl (35.1-43.9); Red Blood Count 4.14 M/mm3 (4.6-6.2); White Blood Count 8.2 K/mm3 (4.4-11.0)
[2023-09-16 10:06] LABS: ALB/GLOB Ratio 0.7 RATIO (0.9-2.4); AST(SGOT) 133 U/L (15-37); Alanine Aminotransfer ALT/SGPT 133 U/L (16-61); Albumin, Serum 2.6 g/dL (3.2-5.0); Alkaline Phosphatase 109 U/L (45-117); Anion Gap 7 (5-15); BUN 10 mg/dL (7-18); BUN/Creat Ratio 23.3 RATIO (10-20); Calcium,Total 8.3 mg/dL (8.5-10.1); Chloride 94 mmol/L (98-107); Creatinine, Serum 0.43 mg/dL (0.70-1.30); EST Glomerular Filtration Rate 209 mL/min (>60); Est Glom Filt Rate - Afr Amer 253 mL/min (>60); Globulin 3.6 g/dL (2.2-4.2); Glucose 96 mg/dL (74-106); Potassium 4.6 mmol/L (3.5-5.1); Protein, Total 6.2 g/dL (6.4-8.2); Sodium Level 127 mmol/L (136-145)
== END ==
LOC: OLS.WHLTCC 05:00
PROVIDERS: PCP Family Medicine; Visit Provider Internal Medicine
DX: I10 Essential (primary) hypertension (principal); L97.512 Non-pressure chronic ulcer of other part of right foot with fat layer exposed; R62.7 Adult failure to thrive; L03.115 Cellulitis of right lower limb; J44.9 Chronic obstructive pulmonary disease, unspecified; K70.10 Alcoholic hepatitis without ascites
CPT/HCPCS: 36415; 80053; 82140; 85025

== ENCOUNTER → 2023-09-23 | Outpatient (REF) | payer MEDICARE, MEDICAID, SELFPAY ==
[2023-09-01 14:43] VITALS: BMI 29.2
[2023-09-23 09:12] LABS: Basophil# 0.04 X10^3/uL; Basophil% 0.3 % (0-1); Eosinophil# 0.77 X10^3/uL; Eosinophils% 6.5 % (0-5); Hematocrit 38.9 % (40-54); Hemoglobin 13.2 g/dL (13.0-16.5); Mean Corp Hgb Conc 33.9 g/dL (32-36); Mean Corpuscular Hgb 33.2 pg (27.0-32.0); Mean Corpuscular Volume 97.7 fL (80-94); Mean Platelet Vol. 10.6 fl (6.2-12.0); Monocyte# 1.04 X10^3/uL; Monocyte% 8.8 % (0-10); NRBC Flagged by Analyzer 0 % (0-5); Neutrophil # 8.03 X10^3/uL (2.7-7.7); Neutrophil % 67.9 % (47-70); Platelet Count 311 K/mm3 (150-450); RBC Distribution Width CV 13.6 % (11.6-14.6); RBC Distribution Width SD 48.6 fl (35.1-43.9); Red Blood Count 3.98 M/mm3 (4.6-6.2); White Blood Count 11.8 K/mm3 (4.4-11.0)
[2023-09-23 09:27] LABS: ALB/GLOB Ratio 0.7 RATIO (0.9-2.4); AST(SGOT) 159 U/L (15-37); Alanine Aminotransfer ALT/SGPT 190 U/L (16-61); Albumin, Serum 2.5 g/dL (3.2-5.0); Alkaline Phosphatase 116 U/L (45-117); Anion Gap 3 (5-15); BUN 11 mg/dL (7-18); BUN/Creat Ratio 27.8 RATIO (10-20); Calcium,Total 8.4 mg/dL (8.5-10.1); Chloride 99 mmol/L (98-107); EST Glomerular Filtration Rate 231 mL/min (>60); Est Glom Filt Rate - Afr Amer 279 mL/min (>60); Globulin 3.5 g/dL (2.2-4.2); Glucose 95 mg/dL (74-106); Potassium 4.3 mmol/L (3.5-5.1); Sodium Level 132 mmol/L (136-145)
== END ==
LOC: OLS.WHLTCC 05:00
PROVIDERS: PCP Family Medicine; Visit Provider Internal Medicine
DX: K70.10 Alcoholic hepatitis without ascites (principal); L97.512 Non-pressure chronic ulcer of other part of right foot with fat layer exposed; L03.115 Cellulitis of right lower limb; M62.561 Muscle wasting and atrophy, not elsewhere classified, right lower leg
CPT/HCPCS: 36415; 80053; 82140; 85025

== ENCOUNTER → 2023-09-30 | Outpatient (REF) | payer MEDICARE, MEDICAID, SELFPAY ==
[2023-09-01 14:43] VITALS: BMI 29.2
[2023-09-30 09:30] LABS: Absolute Lymphocyte Count 2.52 X10^3/uL (0.83-4.51); Basophil# 0.06 X10^3/uL; Basophil% 0.6 % (0-1); Eosinophil# 1.04 X10^3/uL; Eosinophils% 10.9 % (0-5); Hematocrit 37.9 % (40-54); Hemoglobin 12.5 g/dL (13.0-16.5); Lymphocyte # 2.52 X10^3/ul (0.83-4.51); Lymphocyte % 26.5 % (19-41); Mean Corpuscular Hgb 32.5 pg (27.0-32.0); Mean Corpuscular Volume 98.4 fL (80-94); Mean Platelet Vol. 11.4 fl (6.2-12.0); Monocyte# 0.92 X10^3/uL; Monocyte% 9.7 % (0-10); NRBC Flagged by Analyzer 0 % (0-5); Neutrophil # 4.95 X10^3/uL (2.7-7.7); Platelet Count 292 K/mm3 (150-450); RBC Distribution Width SD 50.7 fl (35.1-43.9); Red Blood Count 3.85 M/mm3 (4.6-6.2); White Blood Count 9.5 K/mm3 (4.4-11.0)
[2023-09-30 09:57] LABS: ALB/GLOB Ratio 0.7 RATIO (0.9-2.4); AST(SGOT) 152 U/L (15-37); Alanine Aminotransfer ALT/SGPT 156 U/L (16-61); Albumin, Serum 2.5 g/dL (3.2-5.0); Alkaline Phosphatase 129 U/L (45-117); Anion Gap 5 (5-15); BUN 12 mg/dL (7-18); BUN/Creat Ratio 25.9 RATIO (10-20); Calcium,Total 8.4 mg/dL (8.5-10.1); Chloride 100 mmol/L (98-107); Creatinine, Serum 0.46 mg/dL (0.70-1.30); EST Glomerular Filtration Rate 192 mL/min (>60); Est Glom Filt Rate - Afr Amer 232 mL/min (>60); Globulin 3.8 g/dL (2.2-4.2); Glucose 83 mg/dL (74-106); Potassium 4.2 mmol/L (3.5-5.1); Protein, Total 6.3 g/dL (6.4-8.2); Sodium Level 132 mmol/L (136-145)
== END ==
LOC: OLS.WHLTCC 07:30
PROVIDERS: PCP Family Medicine; Visit Provider Internal Medicine
DX: K70.10 Alcoholic hepatitis without ascites (principal); L97.512 Non-pressure chronic ulcer of other part of right foot with fat layer exposed; M62.561 Muscle wasting and atrophy, not elsewhere classified, right lower leg
CPT/HCPCS: 36415; 80053; 82140; 85025

== ENCOUNTER 2023-10-04 21:50 | Emergency (ER) | payer MEDICARE, MEDICAID, SELFPAY ==
[2023-09-01 14:43] VITALS: BMI 29.2
[2023-10-04 21:51] VITALS: BP 147/92; PULSE 89; RESP 24; TEMP 36.7; O2SAT 89
[2023-10-04 22:05] VITALS: O2SAT 88
--- NOTE | 2023-10-04 22:05 | EKG12_ITS ---
Test Reason : CP Blood Pressure : / mmHG Vent. Rate : 089 BPM Atrial Rate : 089 BPM P-R Int : 196 ms QRS Dur : 124 ms QT Int : 416 ms P-R-T Axes : 050 073 188 degrees QTc Int : 506 ms Normal sinus rhythm Possible Left atrial enlargement Non-specific intra-ventricular conduction delay ST & T wave abnormality, consider inferior ischemia Abnormal ECG Confirmed by VALERIE PITTS MD ([id number]), market editor SHERRI BROWN ([id number]) on 10/06/2023 9:47:32 AM Referred By: MARC Confirmed By:VALERIE PITTS MD
--- NOTE | 2023-10-04 22:06 | ED.VIS.CHEST ---
HPI History of Present Illness Chief Complaint: Chest Pain Informant: patient and EMS Narrative Narrative: Patient is in [facility] facility for [facility]-term rehab, states she has been having midsternal chest pressure nonpleuritic for the past 3 days, it has been off-and-on but today it has been present steady for the last 8 hours. He denies any dyspnea, palpitations, syncope, or injury but states that he has been engaging in therapy at the detention recently with arms and legs, and today he had to stop and put some muscle rub on because his left arm and his neck were hurting, and the muscle rub helped. He is not clear if the chest discomfort was exertional. He also states that for weeks or more he has been having intermittent contractions somewhere in his abdomen, which he has as he is moaning in discomfort here in emergency department and then suddenly stops after less than a minute. His abdomen is benign. He is a poor historian. 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 difficile colitis Cellulitis of right lower limb Cerebellar atrophy Chronic obstructive pulmonary disease Essential hypertension Femoral neck fracture Former tobacco use Frequent falls History of alcoholism Hyperlipidemia Hyponatremia Incontinence of feces Incontinence of urine Ischemic cardiomyopathy Non-pressure chronic ulcer of other part of right foot with fat layer exposed Physical debility Pulmonary nodule Stage 1 mild COPD by GOLD classification Syndrome of inappropriate ADH (SIADH) secretion Tinea unguium Unable to ambulate Ventricular tachycardia Home Medications amiodarone 200 mg tablet 200 mg PO BID HEART RHYTHM 05/25/22 [History Last Taken Unknown] clopidogrel 75 mg tablet 75 mg PO DAILY 05/25/22 [History Last Taken Unknown] metoprolol succinate 25 mg tablet,extended release 24 hr 12.5 mg PO DAILY BP 05/25/22 [History Last Taken Unknown] paroxetine HCl 20 mg tablet 30 mg PO DAILY 05/25/22 [History Last Taken Unknown] albuterol sulfate 2.5 mg/3 mL (0.083 %) solution for nebulization 2.5 mg (3 mL) inhalation Q2H PRN PRN Shortness of Breath/Wheezing #0 mL 06/06/22 [Rx Last Taken Unknown] loperamide 2 mg capsule 2 mg PO Q6H PRN loose stool 08/19/23 [History Last Taken Unknown] meloxicam 15 mg tablet 15 mg PO DAILY 08/19/23 [History Last Taken Unknown] trazodone 100 mg tablet 125 mg PO QHS 08/19/23 [History Last Taken Unknown] Lactobacillus acidophilus 10 billion cell capsule (Probiotic) 10,000 mmu cells PO DAILY #10 caps 10/05/23 [Rx Last Taken Unknown] acetaminophen 325 mg tablet 650 mg PO Q4H pain 10/05/23 [History Last Taken Unknown] doxycycline monohydrate 100 mg capsule 100 mg PO BID #14 CAPSULES 10/05/23 [Rx Last Taken Unknown] lactulose 10 gram/15 mL oral solution 15 ml PO BID 10/05/23 [History Last Taken Unknown] sodium chloride 1,000 mg soluble tablet 1,000 mg PO DAILY 10/05/23 [History Last Taken Unknown] Allergy/AdvReac Type Severity Reaction Status Date / Time Iodine and Iodide Containing Allergy Severe Rash Verified 10/04/23 22:09 Produc ezetimibe [From Zetia] AdvReac Severe Myalgias Verified 10/04/23 22:09 [id number] Reductase AdvReac Severe Elevated Verified 10/04/23 22:09 Inhibitor Liver [Otogqjr-Cye-Pep Reductase Enzymes Inhibitor] duloxetine [From Cymbalta] AdvReac Orthostasis Verified 10/04/23 22:09 /hyponatrem ia Family History Grandmother Myocardial infarction Grandfather Myocardial infarction Surgical History History of coronary artery stent placement (02/17/19) History of implantable cardiac defibrillator (ICD) (10/31/17) History of left heart catheterization (LHC) (01/21/19) Hx of knee surgery Hx of total hip arthroplasty Social History (Updated 10/04/23 @ 22:[address] Rodriguez Up MD) housing: detention number of children: 1 current occupational status: unemployed Smoking Status: Light Smoker (<10/day) how long ago did patient quit smoking: Smokes 2.5 packs per week. alcohol intake: former year quit: 2012 details: Sober 13-14 months. substance use type: other details: Has abused RX Ativan in the past, remains clean. well-balanced diet: other details: says that he gets meals on wheels and they pile upin the refrigerator caffeine: No during the past year weight has: other details: decreased 20 lbs since November what type of physical activity do you participate in: none duration: < 15 minutes/day seatbelt use: always do you feel safe at home: Yes ROS ROS ED Constitutional Constitutional ED: Denies chills or fever(s) Eyes Eyes: Denies change in vision or diplopia ENT ENT ED: Denies rhinorrhea or sore throat Cardiovascular Cardiovascular: Reports chest pain; Denies palpitations Respiratory/Chest Respiratory/Chest: Denies cough or dyspnea Gastrointestinal Gastrointestinal: Reports abdominal pain and diarrhea; Denies hematochezia, melena, nausea or vomiting Genitourinary Genitourinary ED: Denies dysuria or hematuria Musculoskeletal Musculoskeletal: Reports extremity pain; Denies back pain or neck pain Integumentary Denies abscess or rash Neurologic Neurologic: Denies headache(s), paresthesias or weakness Psychiatric Psychiatric: Denies anxiety or suicidal thoughts EXAM Physical Exam Const Vital Signs: 10/04/23 21:51 10/04/23 21:55 10/04/23 22:05 Temperature 98.0 F Temperature Source Temporal Pulse Rate 89 Respiratory Rate 24 H Blood Pressure 147/92 H Blood Pressure Mean 110 Pulse Ox 89 88 Oxygen Delivery Method Room Air Nasal Cannula Room Air Oxygen Flow Rate (L/min) 2 10/04/23 23:11 10/05/23 00:02 10/05/23 00:02 Temperature Temperature Source Pulse Rate 86 Respiratory Rate 24 H Blood Pressure 142/88 H Blood Pressure Mean 106 Pulse Ox 92 87 90 Oxygen Delivery Method Room Air Room Air Nasal Cannula Oxygen Flow Rate (L/min) 2 Positive well nourished and well developed General Appearance ED: well developed and NAD HEENT Reports moist mucous membranes normocephalic and atraumatic Eyes PERRL and EOMs intact bilaterally Neck full ROM and supple Chest Wall inspection of chest normal and palpation of chest normal Resp normal respiratory effort and clear to auscultation bilaterally Cardio regular rate, regular rhythm and no murmurs GI non-tender and non-distended Auscultation: normoactive bowel sounds Palpation: soft Back/Spine no CVA tenderness General Back: other FROM Extremity normal to inspection General Extremety ED: Negative for edema, pulses abnormal or tenderness General Extremity: Negative for edema or pulses abnormal Neuro oriented x3, CN's II-XII intact bilaterally and no sensory deficits noted Sensorium / Orientation: awake and alert Motor Exam: strength 5/5 throughout Skin no rashes or lesions noted and no wounds Heart Score History: Moderately Suspicious ECG: Nonspecific Repolarization Age: >/= 65 years Risk Factors: >/= 3 Risk Factors or History of CAD Troponin: </= Normal Limit Score: 6 MDM MDM MDM Narrative Medical decision making narrative: Patient has an abnormal EKG but it is stable compared with his prior, he does have a history of an ischemic cardiomyopathy which is likely the reason. His workup shows a leukocytosis, normal troponin, and 1 view chest x-ray shows patchy infiltrates bilaterally. Radiology in agreement. In discussing again with the patient he does confirm that he very rarely has cough, and he has not felt out of breath lately, he is on no home oxygen for his COPD, but requiring it here since he dipped down to 89% while resting on room air. He states it is hard to tell if he has been feeling weak lately because he just got over C. difficile which wiped him out which certainly is understandable. He states this was a couple weeks ago, and ever since then he has had may be 2-4 loose stools per day, certainly improved compared with when he had C. difficile. Certainly with acute hypoxia and patchy pneumonia, he is going to need antibiotics and he understands that he is at risk for getting C. difficile again but at this time I think the benefits of antibiotics outweigh the potential risks. Patient's second troponin came back identical to the first one. He was given morphine and dicyclomine for his chest discomfort and abdominal discomfort. His abdominal contractions did not recur and that was better but the chest discomfort was persistent. He states it was mid lower sternum/epigastrium, given a dose of Mylanta did not help. He resting comfortably, only complaining of discomfort when we ask him about it or wake him up. We turned his oxygen off and he did desaturate to 87% on room air. He is good on a 2 L nasal cannula well into the low 90s. He is not dyspneic. This chest discomfort could still be GI, it could be pulmonary but I do not think he is a PE or needs to have further workup at this time, and although his EKG is abnormal it always is, and it is no different with 2 negative troponins this essentially rules out acute coronary syndrome here and since he is doing so well clinically uncomfortable with him being treated back at the detention with 2 L of oxygen and finishing the rest of Levaquin and going on a probiotic to help prevent C. difficile recurrence. Initially I gave him a dose of Levaquin 750 mg IV here. There was not an alert by the system, but upon discharging him on this, I was alerted to the fact that he is on amiodarone, so I checked the patient's EKG and he does appear to have a borderline QTc. Therefore in order to avoid risk of torsades and other dysrhythmias, instead of prescribing him Levaquin I am prescribing him doxycycline since this is what appears to be an atypical pneumonia and not a lobar pneumonia. Also prescribed probiotic caplets in order to help him prevent development of C. difficile colitis. Lab Data Attestation: I reviewed the patient's lab results. Labs: Laboratory Results - last 24 hr 10/04/23 10/05/23 22:12 00:15 WBC 17.9 H RBC 3.93 L Hgb 13.0 Hct 37.6 L MCV 95.7 H MCH 33.1 H MCHC 34.6 RDW Std Deviation 51.2 H RDW Coeff of Yoli 14.5 Plt Count 296 MPV 10.0 Immature Gran % (Auto) 0.400 Neut % (Auto) 78.6 H Lymph % (Auto) 8.2 L Blair % (Auto) 11.4 H Eos % (Auto) 1.2 Baso % (Auto) 0.2 Absolute Neuts (auto) 14.1 H Absolute Lymphs (auto) 1.47 Nucleated RBC % 0 Differential Comment SCANNED Diff Path Review May foll Sodium 131 L Potassium 4.2 Chloride 99 Carbon Dioxide 27.0 Anion Gap 5 BUN 15 Creatinine 0.48 L Est GFR (MDRD) Af Amer 221 Est GFR (MDRD) Non-Af 183 BUN/Creatinine Ratio 31.0 H Glucose 148 H Calcium 8.6 Troponin I High Sens 23 23 Radiography Diagnostic Testing: Clinical Impression(s) from Imaging Studies Chest X-Ray 10/04/23 22:30 IMPRESSION: Patchy airspace opacities, right greater than left concerning for pneumonia, with mild interstitial edema Left chest AICD Electronically Signed: Gianluca Magdaleno MD at 23:09 EST , Rhythm Strip Rhythm Strip: Sinus Rhythm Rate: 90 Ectopy: None EKG Initial EKG: Attestation: I personally reviewed and interpreted this EKG as follows: Interpretation: Sinus Rhythm, No Acute Injury Pattern and Non-Specific ST Changes Prior EKG tracings: available for review Prior: Unchanged Discharge Plan Triage Chief Complaint: Chest Pain ED Provider: Rodriguez Up Dx/Rx/DC Orders Clinical Impression: Chest pain, Pneumonia Instructions: ED Chest Pain, Noncardiac Prescriptions: New doxycycline monohydrate 100 mg capsule 100 mg PO BID Qty: 14 0RF Probiotic 10 billion cell capsule 10,000 mmu cells PO DAILY Qty: 10 0RF No Action amiodarone 200 mg tablet 200 mg PO BID clopidogrel 75 mg tablet 75 mg PO DAILY paroxetine HCl 20 mg tablet 30 mg PO DAILY metoprolol succinate 25 mg tablet extended release 24 hr 12.5 mg PO DAILY albuterol sulfate 2.5 mg /3 mL (0.083 %) Solution For Nebulization 2.5 mg inhalation Q2H PRN PRN (Reason: Shortness of Breath/Wheezing) Qty: 0 0RF loperamide 2 mg capsule 2 mg PO Q6H PRN (Reason: loose stool) Patient Comments: TAKE 1 CAPSULE BY MOUTH ATFER EACH LOOSE STOOL NEEDED, NO MORE THAN FOUR CAPSULES IN 24 HOURS meloxicam 15 mg tablet 15 mg PO DAILY Patient Comments: TAKE 1 TABLET BY MOUTH DAILY trazodone 100 mg tablet 125 mg PO QHS Patient Comments: Take 1 tablet by mouth at bedtime acetaminophen 325 mg tablet 650 mg PO Q4H sodium chloride 1,000 mg tablet,soluble 1,000 mg PO DAILY lactulose 10 gram/15 mL solution 15 ml PO BID Primary Care Provider: Rashard Gandhi Referrals: Rashard Gandhi MD [Primary Care Provider] - 2 Days Disposition Disposition: Home, Self Care
[2023-10-04] MEDS: Ondansetron 4 MG/2 ML Vial IV (22:13)
[2023-10-04] MEDS: Dicyclomine 10 MG Capsule 20 MG PO (22:14)
[2023-10-04] MEDS: Morphine 4 MG/ML Syringe IV (22:16)
[2023-10-04 22:18] LABS: Absolute Lymphocyte Count 1.47 X10^3/uL (0.83-4.51); Absolute Neutrophil Count 14.1 X10^3/uL (2.0-7.7); Basophil# 0.04 X10^3/uL; Basophil% 0.2 % (0-1); Eosinophil# 0.21 X10^3/uL; Eosinophils% 1.2 % (0-5); Hematocrit 37.6 % (40-54); Lymphocyte # 1.47 X10^3/ul (0.83-4.51); Lymphocyte % 8.2 % (19-41); Mean Corp Hgb Conc 34.6 g/dL (32-36); Mean Corpuscular Hgb 33.1 pg (27.0-32.0); Mean Corpuscular Volume 95.7 fL (80-94); Monocyte# 2.04 X10^3/uL; Monocyte% 11.4 % (0-10); NRBC Flagged by Analyzer 0 % (0-5); Neutrophil % 78.6 % (47-70); POSITIVE DIFFERENTIAL YES; Platelet Count 296 K/mm3 (150-450); RBC Distribution Width CV 14.5 % (11.6-14.6); RBC Distribution Width SD 51.2 fl (35.1-43.9); Red Blood Count 3.93 M/mm3 (4.6-6.2); White Blood Count 17.9 K/mm3 (4.4-11.0)
[2023-10-04 22:26] LABS: Differential Indicated SCAN CRITERIA MET
--- NOTE | 2023-10-04 22:30 | RAD_ITS ---
INDICATION: chest pain EXAMINATION/TECHNIQUE: X-RAY - XR Chest 1 View COMPARISON: May 30, 2022. FINDINGS: LINES/DEVICES: Single lead left chest AICD. LUNGS: Patchy bilateral hazy airspace opacities, most prominent on the right. Mild diffuse interstitial thickening. No effusion. No pneumothorax. MEDIASTINUM AND CARDIOVASCULAR STRUCTURES: Cardiac silhouette not enlarged. BONES AND SOFT TISSUES: Unremarkable. RAD/Chest 1 View (Portable) IMPRESSION: Patchy airspace opacities, right greater than left concerning for pneumonia, with mild interstitial edema Left chest AICD Electronically Signed: Gianluca Magdaleno MD at 23:09 EST ,
[2023-10-04 22:39] LABS: Differential Comment SCANNED
[2023-10-04 22:40] LABS: Anion Gap 5 (5-15); BUN 15 mg/dL (7-18); Calcium,Total 8.6 mg/dL (8.5-10.1); Chloride 99 mmol/L (98-107); Creatinine, Serum 0.48 mg/dL (0.70-1.30); EST Glomerular Filtration Rate 183 mL/min (>60); Est Glom Filt Rate - Afr Amer 221 mL/min (>60); Glucose 148 mg/dL (74-106); Potassium 4.2 mmol/L (3.5-5.1); Sodium Level 131 mmol/L (136-145); Troponin-I HS (w/2H Reflex) 23 pg/mL (3.0-78.0)
[2023-10-04 23:11] VITALS: BP 142/88; PULSE 86; RESP 24; O2SAT 92
[2023-10-04] MEDS: Mag Hydrox/Al Hydrox/Simeth 30 ML UDC PO (23:49)
[2023-10-04] MEDS: levoFLOXacin IV 750 MG/150 ML BAG 100 MG IV (23:49)
[2023-10-05 00:02] VITALS: O2SAT 87; O2SAT 90
[2023-10-05 00:16] LABS: Reflex Troponin-HS? (from REC) Y
[2023-10-05 00:41] LABS: Troponin-I HS 23 pg/mL (3.0-78.0)
[2023-10-05 01:17] VITALS: BP 137/87; PULSE 79; RESP 22; TEMP 36.7; O2SAT 96
[2023-10-05 01:28] VITALS: BP 137/87; PULSE 78; RESP 24; O2SAT 94
--- NOTE | 2023-10-05 02:56 | ED.RN ---
REPORT CALLED TO CADY GONGORA.
[2023-10-06 13:32] LABS: Pathologist Review Reviewed
== END 2023-10-05 05:28 | disposition home or self-care (01) ==
PROVIDERS: Emergency Provider Emergency Medicine; PCP Internal Medicine; Visit Provider Emergency Medicine
DX: R07.9 Chest pain, unspecified (principal); J44.9 Chronic obstructive pulmonary disease, unspecified; J18.9 Pneumonia, unspecified organism; E78.5 Hyperlipidemia, unspecified; Z87.891 Personal history of nicotine dependence; I25.10 Atherosclerotic heart disease of native coronary artery without angina pectoris; I10 Essential (primary) hypertension; Z79.899 Other long term (current) drug therapy; Z79.02 Long term (current) use of antithrombotics/antiplatelets; F41.8 Other specified anxiety disorders; Z95.5 Presence of coronary angioplasty implant and graft
CPT/HCPCS: 71045; 80048; 84484; 85025; 93005; 96365; 96375; 99285; A4216; J2405

== ENCOUNTER → 2023-10-07 | Outpatient (REF) | payer MEDICARE, MEDICAID, SELFPAY ==
[2023-09-01 14:43] VITALS: BMI 29.2
[2023-10-07 09:46] LABS: Absolute Lymphocyte Count 1.79 X10^3/uL (0.83-4.51); Absolute Neutrophil Count 7.5 X10^3/uL (2.0-7.7); Basophil# 0.06 X10^3/uL; Basophil% 0.5 % (0-1); Eosinophil# 0.71 X10^3/uL; Eosinophils% 6.4 % (0-5); Hematocrit 36.7 % (40-54); Hemoglobin 12.5 g/dL (13.0-16.5); Lymphocyte # 1.79 X10^3/ul (0.83-4.51); Lymphocyte % 16.1 % (19-41); Mean Corp Hgb Conc 34.1 g/dL (32-36); Mean Corpuscular Hgb 33.5 pg (27.0-32.0); Mean Corpuscular Volume 98.4 fL (80-94); Mean Platelet Vol. 11.1 fl (6.2-12.0); Monocyte# 0.97 X10^3/uL; Monocyte% 8.7 % (0-10); NRBC Flagged by Analyzer 0 % (0-5); Neutrophil # 7.51 X10^3/uL (2.7-7.7); Neutrophil % 67.8 % (47-70); Platelet Count 293 K/mm3 (150-450); RBC Distribution Width CV 14.6 % (11.6-14.6); RBC Distribution Width SD 53.3 fl (35.1-43.9); Red Blood Count 3.73 M/mm3 (4.6-6.2); White Blood Count 11.1 K/mm3 (4.4-11.0)
[2023-10-07 09:53] LABS: ALB/GLOB Ratio 0.6 RATIO (0.9-2.4); AST(SGOT) 128 U/L (15-37); Alanine Aminotransfer ALT/SGPT 156 U/L (16-61); Albumin, Serum 2.5 g/dL (3.2-5.0); Alkaline Phosphatase 122 U/L (45-117); Anion Gap 6 (5-15); BUN 10 mg/dL (7-18); Calcium,Total 8.4 mg/dL (8.5-10.1); Chloride 100 mmol/L (98-107); EST Glomerular Filtration Rate 176 mL/min (>60); Est Glom Filt Rate - Afr Amer 212 mL/min (>60); Glucose 100 mg/dL (74-106); Protein, Total 6.5 g/dL (6.4-8.2); Sodium Level 132 mmol/L (136-145)
== END ==
LOC: OLS.WHLTCC 05:00
PROVIDERS: PCP Internal Medicine; Visit Provider Internal Medicine
DX: K70.10 Alcoholic hepatitis without ascites (principal); L97.512 Non-pressure chronic ulcer of other part of right foot with fat layer exposed; R62.7 Adult failure to thrive; L03.115 Cellulitis of right lower limb; M62.561 Muscle wasting and atrophy, not elsewhere classified, right lower leg
CPT/HCPCS: 36415; 80053; 82140; 85025

== ENCOUNTER → 2023-10-14 | Outpatient (REF) | payer MEDICARE, MEDICAID, SELFPAY ==
[2023-09-01 14:43] VITALS: BMI 29.2
[2023-10-14 09:02] LABS: Absolute Lymphocyte Count 2.41 X10^3/uL (0.83-4.51); Absolute Neutrophil Count 4.5 X10^3/uL (2.0-7.7); Basophil# 0.06 X10^3/uL; Basophil% 0.7 % (0-1); Eosinophil# 1.12 X10^3/uL; Eosinophils% 12.6 % (0-5); Hematocrit 36.4 % (40-54); Hemoglobin 12.3 g/dL (13.0-16.5); Lymphocyte # 2.41 X10^3/ul (0.83-4.51); Lymphocyte % 27.1 % (19-41); Mean Corp Hgb Conc 33.8 g/dL (32-36); Mean Corpuscular Hgb 33.2 pg (27.0-32.0); Mean Corpuscular Volume 98.1 fL (80-94); Mean Platelet Vol. 10.1 fl (6.2-12.0); Monocyte# 0.75 X10^3/uL; Monocyte% 8.4 % (0-10); NRBC Flagged by Analyzer 0 % (0-5); Neutrophil # 4.52 X10^3/uL (2.7-7.7); Neutrophil % 50.9 % (47-70); Platelet Count 335 K/mm3 (150-450); RBC Distribution Width CV 14.5 % (11.6-14.6); RBC Distribution Width SD 52.4 fl (35.1-43.9); Red Blood Count 3.71 M/mm3 (4.6-6.2); White Blood Count 8.9 K/mm3 (4.4-11.0)
[2023-10-14 09:53] LABS: ALB/GLOB Ratio 0.6 RATIO (0.9-2.4); AST(SGOT) 118 U/L (15-37); Alanine Aminotransfer ALT/SGPT 121 U/L (16-61); Albumin, Serum 2.4 g/dL (3.2-5.0); Alkaline Phosphatase 118 U/L (45-117); Anion Gap 6 (5-15); BUN 9 mg/dL (7-18); BUN/Creat Ratio 16.4 RATIO (10-20); Calcium,Total 8.6 mg/dL (8.5-10.1); Chloride 105 mmol/L (98-107); Creatinine, Serum 0.55 mg/dL (0.70-1.30); EST Glomerular Filtration Rate 158 mL/min (>60); Est Glom Filt Rate - Afr Amer 192 mL/min (>60); Globulin 3.7 g/dL (2.2-4.2); Glucose 92 mg/dL (74-106); Potassium 4.3 mmol/L (3.5-5.1); Protein, Total 6.1 g/dL (6.4-8.2); Sodium Level 136 mmol/L (136-145)
== END ==
LOC: OLS.WHLEAS 05:00
PROVIDERS: PCP Internal Medicine; Visit Provider Internal Medicine
DX: K70.10 Alcoholic hepatitis without ascites (principal); L97.512 Non-pressure chronic ulcer of other part of right foot with fat layer exposed; L03.115 Cellulitis of right lower limb; M62.561 Muscle wasting and atrophy, not elsewhere classified, right lower leg
CPT/HCPCS: 36415; 80053; 82140; 85025

== ENCOUNTER → 2023-10-21 | Outpatient (REF) | payer MEDICARE, MEDICAID, SELFPAY ==
[2023-09-01 14:43] VITALS: BMI 29.2
--- OUTSIDE RECORDS SUMMARY | 2023-10-21 04:54 | XMS RPT_ITS | CCD ---
Author Name Unknown Address [address] [place] [address] Organization [facility] Care Team Providers Care Taxation Consultant Name Role Phone MD Naga, Luis Augustin Unavailable Sole GONGORA, Simona Marrufo Unavailable Unavailable FRANSISCA River, Nena Keen Unavailable Unavailandrew River RN, Nena Keen Unavailable Unavailandrew River RN, Nena Keen Unavailable UnavailRAMON Peres Unavailable Unavailable RAMON POTTS Unavailable Unavailable JUAN PABLO SHAY A III Unavailable Unavailable FRANCISCO MARTIN Unavailable Unavailable YAYA BUNDY Unavailable Unavailable KIKA BAL Unavailable Unavailabl DOLORES Shankar Unavailable Unavailable JUAN PABLO, SHAY A III Unavailable Unavailable DOLORES WANG Unavailable Unavailable RAMON POTTS Unavailable Unavailable FRANCISCO MARTIN Unavailable Unavailable FATEMEH NAJERA Unavailable Unavailable JIM PARHMAMAN Unavailable Unavailable FRANSISCA Hernandez, Angela M Unavailable Unavailable FRANSISCA Hernandez, Angela M Unavailable Unavailable FRANSISCA Hernandez, Angela M Unavailable Unavailable Brandi Hope Y Unavailable Unavailable FRANSISCA River, Nena Keen Unavailable Unavailabl e Nirubul, Shay A Unavailable Tommy Horn Unavailable Unavailabl e Moomaw, Cy I Unavailable Unavailable Nirubul, Shay A Unavailable Allergies Allergy Classification Reported Allergen(s) Allergy Type Date of Onset Reaction(s) Facility HMG-CoA Reductase Inhibitors (statins) (2 sources) Hmg-Coa Reductase Inhibitors (Statins) Drug Allergy Unknown [facility] (7 sources) ezetimibe drug allergy 04-23-2017 myalgia's [facility] Work Phone: (12 sources) Hmg-Coa Reductase Inhibitors (Statins) drug allergy 01-13-2014 Elevated Liver Enzymes [facility] Work Phone: (12 sources) iodine drug allergy 05-24-2011 Rash [facility] Work Phone: Medications Current Medications Medication Drug Class(es) Dates Sig (Normalized) Sig (Original) amiodarone hydrochloride 100 mg oral tablet (2 sources) Antiarrhythmic take 1 tablet by mouth twice daily amiodarone 100 mg oral tablet ; 1 tab(s) orally 2 times a day Quantity: 0 Refills: 0 Ordered: 24-May-2021 Sebastian Forman Generic Substitution Allowed clopidogrel 75 mg oral tablet (2 sources) [id number] Platelet Inhibitor take 1 tablet by mouth once daily Plavix 75 mg oral tablet ; 1 tab(s) orally once a day Quantity: 0 Refills: 0 Ordered: 23-May-2021 Paige Ricketts Generic Substitution Allowed Completed/Discontinued Medications Medication Drug Class(es) Dates Sig (Normalized) Sig (Original) amLODIPine 5 mg oral tablet (20 sources) Dihydropyridine Calcium Channel [facility] Start: 11-30-2012 take 0.5 tablet by mouth twice daily NORVASC 10 MG TABS 1/2 tablet by mouth twice daily AMLODIPINE BESYLATE [id number] Luis Martin MD Problems Active Problems Problem Classification Problem Date Documented Date Episodic/Chronic Cardiac dysrhythmias (20 sources) Ventricular tachycardia; Translations: [Premature beats] Onset: 05-24-2011 05-24-2011 Chronic Coronary atherosclerosis and other heart disease (20 sources) Atherosclerotic heart disease of [place] coronary artery without angina pectoris; Translations: [Coronary arteriosclerosis] Onset: 05-24-2011 Resolved: 04-22-2017 04-22-2017 Chronic Disorders of lipid metabolism (12 sources) Hyperlipidemia; Translations: [Hyperlipidemia, unspecified] Onset: 05-24-2011 05-24-2011 Chronic Essential hypertension (12 sources) Hypertensive disorder; Translations: [Essential (primary) hypertension] Onset: 05-24-2011 05-24-2011 Chronic Nonspecific chest pain (4 sources) Chest pain; Translations: [Chest pain, unspecified] 05-24-2021 Episodic Past or Other Problems Problem Classification Problem Date Documented Da te Episodic/Chronic Coronary atherosclerosis and other heart disease (12 sources) Coronary angioplasty status; Translations: [Coronary angioplasty status] Onset: 05-24-2011 05-24-2011 Episodic Other aftercare (14 sources) 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; Translations: [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] Onset: 05-24-2011 05-24-2011 Episodic Other nutritional; endocrine; and metabolic disorders (12 sources) Body mass index (BMI) 27.0-27.9, adult; Translations: [Body mass index (BMI) 27.0-27.9, adult] Onset: 01-23-2017 01-23-2017 Episodic Results Test Name Value Interpretation Reference Range Facil ity Vital Signs Date Time Vital Sign Value Performing Clinician Facility 05-27-2021 14:37-0400 Diastolic blood pressure 68 mm[Hg] Shay Cebul Other Phone: [facility] 05-27-2021 14:37-0400 Heart rate 73 /min Shay Cebul Other Phone: [facility] 05-27-2021 14:37-0400 Respiratory rate 18 /min Shay Cebul Other Phone: [facility] 05-27-2021 14:37-0400 Systolic blood pressure 124 mm[Hg] Shay Cebul Other Phone: [facility] 05-27-2021 13:30-0400 SaO2% (BldA) [Mass fraction] 97 % Shay Cebul Other Phone: [facility] 05-27-2021 12:08-0400 Body height 187.9 cm Shay Cebul Other Phone: [facility] 05-27-2021 12:08-0400 Body temperature 99.14 [degF] Shay Cebul Other Phone: [facility] 05-27-2021 12:08-0400 Body weight 90.9 kg Shay Cebul Other Phone: [facility] 05-24-2021 05:30-0400 Diastolic blood pressure 78 mm[Hg] Shay Cebul Other Phone: [facility] 05-24-2021 05:30-0400 Heart rate 90 /min Shay Cebul Other Phone: [facility] 05-24-2021 05:30-0400 Respiratory rate 18 /min Shay Cebul Other Phone: [facility] 05-24-2021 05:30-0400 SaO2% (BldA) [Mass fraction] 95 % Shay Cebul Other Phone: [facility] 05-24-2021 05:30-0400 Systolic blood pressure 130 mm[Hg] Shay Cebul Other Phone: [facility] 08-05-2017 15:22-0400 BMI (Body Mass Index) 27.47 kg/m2 FRANSISCA [facility] Work Phone: 08-05-2017 15:22-0400 BP Diastolic 70 mm[Hg] FRANSISCA [facility] Work Phone: 08-05-2017 15:22-0400 BP Systolic 122 mm[Hg] Angela Hernandez RN [facility] Work Phone: 08-05-2017 15:22-0400 Height 187.96 cm Angela Hernandez RN [facility] Work Phone: 08-05-2017 15:22-0400 Pulse (Heart Rate) 68 /min FRANSISCA [facility] Work Phone: 08-05-2017 15:22-0400 Respiratory Rate 18 /min FRANSISCA [facility] Work Phone: 08-05-2017 15:22-0400 Weight 97.07 kg Angela Hernandez RN [facility] Work Phone: 01-23-2017 14:36-0400 Heart rate 107 /min Harumi Faribais [facility] Work Phone: 01-23-2017 14:07-0400 BMI (Body Mass Index) 27.47 kg/m2 FRANSISCA [facility] Work Phone: 01-23-2017 14:07-0400 BP Diastolic 60 mm[Hg] FRANSISCA [facility] Work Phone: 01-23-2017 14:07-0400 BP Systolic 114 mm[Hg] FRANSISCA [facility] Work Phone: 01-23-2017 14:07-0400 Height 187.96 cm FRANSISCA [facility] Work Phone: 01-23-2017 14:07-0400 Pulse (Heart Rate) 106 /min FRANSIS[facility] Work Phone: 01-23-2017 14:07-0400 Respiratory Rate 18 /min [facility] Work Phone: 01-23-2017 14:07-0400 Weight 97.07 kg FRANSISCA [facility] Work Phone: 04-20-2012 15:42-0400 Heart rate 412 ms Brandi Hope [facility] Work Phone: Encounters Encounter Date Encounter Type Care Provider Facility Start: 03-04-2022 Chart Update Shay Del Rosario Work Phone: [facility] Work Phone: Start: 02-14-2022 Chart Update Shay Del Rosario Work Phone: [facility] Work Phone: Start: 05-27-2021 End: 05-27-2021 Emergency department patient visit Cy Watkinstelma [facility] Emergency 16 Start: 05-24-2021 End: 05-24-2021 Emergency department patient visit Tommy Horn [facility] Emergency 16 Start: 11-08-2017 End: 11-11-2017 Evaluation and management of inpatient DOLORES FrancoisIvan WANG Facility:A Start: 10-30-2017 End: 11-01-2017 Evaluation and management of inpatient RAMON POTTS Facility:A Procedures Date Procedure Procedure Detail Performing Clinician Start: 05-27-2021 End: 05-27-2021 EKG impression Yaya Herrera Start: 05-24-2021 End: 05-24-2021 EKG impression Tommy Horn Start: 08-05-2017 End: 08-05-2017 DJN Luis Martin MD Work Phone: Start: 08-05-2017 End: 08-05-2017 Follow Up Appt 6 months Luis Martin MD Work Phone: Start: 08-05-2017 End: 08-05-2017 Follow Up BP Check Luis Martin MD Work Phone: Start: 08-05-2017 End: 08-05-2017 Prgrmng dev eval implantable in persn 1 ld dfb Luis Martin MD Work Phone: Start: 07-08-2017 End: 08-04-2017 *Hepatic Function Panel Luis Martin MD Work Phone: Start: 07-08-2017 End: 08-04-2017 Lipid 1996 panel - Serum or Plasma Luis Martin MD Work Phone: Start: 07-08-2017 End: 08-04-2017 *Hepatic Function Panel Luis Martin MD Work Phone: Start: 07-08-2017 End: 08-04-2017 Lipid panel [AGGREGATE] Luis Martin MD Work Phone: Start: 03-10-2017 End: 04-03-2017 *Hepatic Function Panel Luis Martin MD Work Phone: Start: 03-10-2017 End: 04-03-2017 Lipid 1996 panel - Serum or Plasma Luis Martin MD Work Phone: Start: 03-10-2017 End: 04-03-2017 *Hepatic Function Panel Luis Martin MD Work Phone: Start: 03-10-2017 End: 04-03-2017 Lipid panel [AGGREGATE] Luis Martin MD Work Phone: Start: 01-23-2017 End: 01-23-2017 GERALD Martin MD Work Phone: Start: 01-23-2017 End: 01-23-2017 Ecg routine ecg w/least 12 lds w/i&r Luis Martin MD Work Phone: Start: 01-23-2017 End: 04-07-2017 Echocardiography Luis Martin MD Work Phone: Start: 01-23-2017 End: 03-13-2017 Follow Up Appt 6 months Luis Martin MD Work Phone: Start: 01-23-2017 End: 01-23-2017 Follow Up BP Check Luis Martin MD Work Phone: Start: 01-23-2017 End: 03-13-2017 Pac[facility] Clinic Luis Martin MD Work Phone: Start: 01-23-2017 End: 01-23-2017 Prgrmng dev eval implantable in persn 1 ld dfb Luis Martin MD Work Phone: Start: 01-23-2017 End: 01-23-2017 GERALD Martin MD Work Phone: Start: 01-23-2017 End: 04-07-2017 Echocardiography Luis Martin MD Work Phone: Start: 01-23-2017 End: 01-23-2017 Electrocardiogram, complete Luis samano MD Work Phone: Start: 01-23-2017 End: 03-13-2017 Follow Up Appt 6 months Luis Martin MD Work Phone: Start: 01-23-2017 End: 01-23-2017 Follow Up BP Check Luis Martin MD Work Phone: Start: 01-23-2017 End: 01-23-2017 Icd device prog eval, 1 sngl Luis Martin MD Work Phone: Start: 01-23-2017 End: 03-13-2017 Pacer Clinic Luis Martin MD Work Phone: Start: 12-16-2016 End: 01-22-2017 *Hepatic Function Panel Luis Martin MD Work Phone: Start: 12-16-2016 End: 01-22-2017 Lipid 1996 panel - Serum or Plasma Luis Martin MD Work Phone: Start: 12-16-2016 End: 01-22-2017 *Hepatic Function Panel Luis Martin MD Work Phone: Start: 12-16-2016 End: 01-22-2017 Lipid panel [AGGREGATE] Luis Martin MD Work Phone: Start: 11-27-2015 End: 12-16-2016 *Hepatic Function Panel Luis Martin MD Work Phone: Start: 11-27-2015 End: 12-16-2016 Lipid 1996 panel - Serum or Plasma Luis Martin MD Work Phone: Start: 11-27-2015 End: 12-16-2016 *Hepatic Function Panel Luis Martin MD Work Phone: Start: 11-27-2015 End: 12-16-2016 Lipid panel [AGGREGATE] Luis Martin MD Work Phone: Start: 01-09-2015 End: 02-16-2015 Follow Up Appt 3 months Dayanna fernández PA-C Work Phone: Start: 01-09-2015 End: 02-16-2015 Pacer Clinic Dayanna Mercedes PA-C Work Phone: Start: 01-09-2015 End: 01-10-2015 Prgrmng dev eval implantable in persn 1 ld dfb Dayanna Mercedes PA-C Work Phone: Start: 01-09-2015 End: 02-16-2015 Follow Up Appt 3 months Dayanna fernández PA-C Work Phone: Start: 01-09-2015 End: 01-10-2015 Icd device prog eval, 1 sngl Dayanna M Mercedes, PA-C Work Phone: Start: 01-09-2015 End: 02-16-2015 Pac[facility] Clinic Dayanna Mercedes PA-C Work Phone: Start: 09-27-2014 End: 01-04-2015 Follow Up Appt 3 months Dayanna fernández PA-C Work Phone: Start: 09-27-2014 End: 01-04-2015 [facility] Dayanna Mercedes PA-C Work Phone: Start: 09-27-2014 End: 09-27-2014 Prgrmng dev eval implantable in persn 1 ld dfb Dayanna Mercedes PA-C Work Phone: Start: 09-27-2014 End: 01-04-2015 Follow Up Appt 3 months Dayanna fernández PA-C Work Phone: Start: 09-27-2014 End: 09-27-2014 Icd device prog eval, 1 sngl Dayanna Mercedes PA-C Work Phone: Start: 09-27-2014 End: 01-04-2015 [facility] Dayanna Mercedes PA-C Work Phone: Start: 06-01-2014 End: 01-04-2015 Follow Up Appt 3 months Dayanna fernández PA-C Work Phone: Start: 06-01-2014 End: 01-04-2015 [facility] Dayanna Mercedes PA-C Work Phone: Start: 06-01-2014 End: 06-01-2014 Prgrmng dev eval implantable in persn 1 ld dfb Dayanna Mercedes PA-C Work Phone: Start: 06-01-2014 End: 01-04-2015 Follow Up Appt 3 months Dayanna fernández PA-C Work Phone: Start: 06-01-2014 End: 06-01-2014 Icd device prog eval, 1 sngl Dayanna Mercedes PA-C Work Phone: Start: 06-01-2014 End: 01-04-2015 Pac[facility] Clinic Dayanna Mercedes PA-C Work Phone: Start: 01-13-2014 End: 03-07-2014 *Hepatic Function Panel Luis Martin MD Work Phone: Start: 01-13-2014 End: 01-13-2014 GERALD Martin MD Work Phone: Start: 01-13-2014 End: 01-13-2014 Follow Up Appt 1 year Osmani Valentine Work Phone: Start: 01-13-2014 End: 03-07-2014 Lipid 1996 panel - Serum or Plasma Luis Martin MD Work Phone: Start: 01-13-2014 End: 01-13-2014 Prgrmng dev eval implantable in persn 1 ld dfb Luis Martin MD Work Phone: Start: 01-13-2014 End: 03-07-2014 *Hepatic Function Panel Luis Martin MD Work Phone: Start: 01-13-2014 End: 01-13-2014 GERALD Martin MD Work Phone: Start: 01-13-2014 End: 01-13-2014 Follow Up Appt 1 year Osmani Valentine Work Phone: Start: 01-13-2014 End: 01-13-2014 Follow Up Appt 3 months Luis Martin MD Work Phone: Start: 01-13-2014 End: 01-13-2014 Icd device prog eval, 1 sngl Luis Martin MD Work Phone: Start: 01-13-2014 End: 03-07-2014 Lipid panel [AGGREGATE] Luis Martin MD Work Phone: Start: 01-13-2014 End: 01-13-2014 Pacer Clinic Luis Martin MD Work Phone: Start: 12-02-2013 End: 12-29-2013 *Hepatic Function Panel Gautam Arellano MD Start: 12-02-2013 End: 12-29-2013 Lipid 1996 panel - Serum or Plasma Gautam Arellano MD Start: 12-02-2013 End: 12-29-2013 *Hepatic Function Panel Gautam Arellano MD Start: 12-02-2013 End: 12-29-2013 Lipid panel [AGGREGATE] Gautam Arellano MD Start: 07-16-2013 End: 12-29-2013 *Hepatic Function Panel Gautam Arellano MD Start: 07-16-2013 End: 12-29-2013 Lipid 1996 panel - Serum or Plasma Gautam Arellano MD Start: 07-16-2013 End: 12-29-2013 *Hepatic Function Panel Gautam Arellano MD Start: 07-16-2013 End: 12-29-2013 Lipid panel [AGGREGATE] Gautam Arellano MD Start: 05-21-2013 End: 12-29-2013 Follow Up Appt 3 months Osmani Nur Start: 05-21-2013 End: 12-29-2013 Prgrmng dev eval implantable in persn 1 ld dfb Patricio Glynn MD Start: 05-21-2013 End: 12-29-2013 Follow Up Appt 3 months Osmani Nur Start: 05-21-2013 End: 12-29-2013 Icd device prog eval, 1 sngl Patricio Glynn MD Start: 05-21-2013 End: 12-29-2013 Pac[facility] Clinic Patricio Glynn MD Start: 02-17-2013 End: 12-29-2013 Follow Up Appt 3 months Gautam Arellano MD Start: 02-17-2013 End: 12-29-2013 Pacer Clinic Gautam Arellano MD Start: 02-17-2013 End: 02-17-2013 Prgrmng dev eval implantable in persn 1 ld dfb Gautam Arellano MD Start: 02-17-2013 End: 12-29-2013 Follow Up Appt 3 months Gautam Arellano MD Start: 02-17-2013 End: 02-17-2013 Icd device prog eval, 1 sngl Gautam Arellano MD Start: 02-17-2013 End: 12-29-2013 Pacer Clinic Gautam Arellano MD Start: 01-12-2013 End: 01-12-2013 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 eval remote 90 d 1/2/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 washer ld dfmanda Ramos MD Start: 01-12-2013 End: 01-12-2013 Icd device interrogat remote Yevgeniy Ramos MD Start: 10-13-2012 End: 10-13-2012 Prgrmng dev eval implantable in persn 1 ld elie Ramos MD Start: 10-13-2012 End: 10-13-2012 Follow Up Appt 6 months Yevgeniy Ramos MD Start: 04-20-2012 End: 04-28-2012 *BMP Yevgeniy Ramos MD Start: 04-20-2012 End: 09-22-2012 *Hepatic Function Panel Yevgeniy Ramos MD Start: 04-20-2012 End: 04-20-2012 Follow Up Appt 6 months Yevgeniy Ramos MD Start: 04-20-2012 End: 04-28-2012 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 eval remote 90 d 1/2/wool washer ld dfb Yevgeniy Raoms MD Start: 04-20-2012 End: 10-13-2012 Lipid 1996 panel - Serum or Plasma Yevgeniy Ramos MD Start: 04-20-2012 End: 10-13-2012 Magnesium [Mass/volume] in Serum or Plasma Yevgeniy Ramos MD Start: 04-20-2012 End: 04-28-2012 *BMP Yevgeniy Ramos MD Start: 04-20-2012 End: 04-28-2012 *CBC with Differential Yevgeniy Ramos MD Start: 04-20-2012 End: 09-22-2012 *Hepatic Function Panel Yevgeniy Ramos MD Start: 04-20-2012 End: 04-20-2012 Follow Up Appt 6 months Yevgeniy Ramos MD Start: 04-20-2012 End: 10-13-2012 Lipid panel [AGGREGATE] Yevgeniy Ramos MD Start: 04-20-2012 End: 10-13-2012 Magnesium Yevgeniy Ramos MD Start: 05-24-2011 Implantation of automatic cardiac defibrillator IMPLANTATION OF DEFIBRILLATOR, HX OF Angela Hernandez RN Start: 05-24-2011 Placement of stent in coronary artery Status post cardiac stent placement Angela Hernandez RN Start: 05-24-2011 Implantation of automatic cardiac defibrillator IMPLANTATION OF DEFIBRILLATOR, HX OF Brandi Hope Start: 05-24-2011 Placement of stent in coronary artery Status post cardiac stent placement Nena River RN Plan of Treatment Date Care Activity Detail Author Start: 02-12-2018 End: 02-12-2018 Appointment Appointment [facility] Work Phone: Start: 09-16-2017 End: 08-05-2017 *Hepatic Function Panel *Hepatic Function Panel [facility] Work Phone: Start: 09-16-2017 End: 08-05-2017 Lipid 1996 panel *Lipid Profile CC PCP [facility] Work Phone: Start: 08-26-2017 End: 08-26-2017 Appointment Appointment [facility] Work Phone: Start: 08-05-2017 End: 08-05-2017 Appointment Appointment [facility] Work Phone: Start: 08-05-2017 End: 08-05-2017 GERALD DUARTE [facility] Work Phone: Start: 08-05-2017 End: 08-05-2017 Follow Up Appt 6 months Follow Up Appt 6 months [facility] Work Phone: Start: 08-05-2017 End: 08-05-2017 Follow Up BP Check Follow Up BP Check [facility] Work Phone: Start: 08-05-2017 End: 08-05-2017 Pacer Clinic [facility] Work Phone: Start: 07-28-2017 End: 07-28-2017 Appointment Appointment [facility] Work Phone: Start: 07-28-2017 End: 07-28-2017 Appointment Appointment [facility] Work Phone: Start: 07-08-2017 End: 07-28-2017 *Hepatic Function Panel *Hepatic Function Panel [facility] Work Phone: Start: 07-08-2017 End: 07-28-2017 Lipid 1996 panel *Lipid Profile CC PCP [facility] Work Phone: Start: 07-08-2017 End: 07-28-2017 *Hepatic Function Panel *Hepatic Function Panel [facility] Work Phone: Start: 07-08-2017 End: 07-28-2017 Lipid panel [AGGREGATE] *Lipid Profile CC PCP [facility] Work Phone: Start: 03-10-2017 End: 04-03-2017 *Hepatic Function Panel *Hepatic Function Panel [facility] Work Phone: Start: 03-10-2017 End: 04-03-2017 Lipid 1996 panel *Lipid Profile CC PCP [facility] Work Phone: Start: 03-10-2017 End: 04-03-2017 *Hepatic Function Panel *Hepatic Function Panel [facility] Work Phone: Start: 03-10-2017 End: 04-03-2017 Lipid panel [AGGREGATE] *Lipid Profile CC PCP [facility] Work Phone: Start: 01-23-2017 End: 01-23-2017 GERALD DUARTE [facility] Work Phone: Start: 01-23-2017 End: 01-23-2017 Ecg routine ecg w/least 12 lds w/i&r EKG (In office) [facility] Work Phone: Start: 01-23-2017 End: 01-23-2017 Echocardiography Echocardiogram (complete) [facility] Work Phone: Start: 01-23-2017 End: 03-13-2017 Follow Up Appt 6 months Follow Up Appt 6 months [facility] Work Phone: Start: 01-23-2017 End: 01-23-2017 Follow Up BP Check Follow Up BP Check [facility] Work Phone: Start: 01-23-2017 End: 03-13-2017 Pacer Clinic [facility] Work Phone: Start: 01-23-2017 End: 01-23-2017 GERALD DUARTE [facility] Work Phone: Start: 01-23-2017 End: 03-13-2017 Echocardiography Echocardiogram (complete) [facility] Work Phone: Start: 01-23-2017 End: 01-23-2017 Electrocardiogram, complete EKG (In office) [facility] Work Phone: Start: 01-23-2017 End: 03-13-2017 Follow Up Appt 6 months Follow Up Appt 6 months [facility] Work Phone: Start: 01-23-2017 End: 01-23-2017 Follow Up BP Check Follow Up BP Check [facility] Work Phone: Start: 01-23-2017 End: 03-13-2017 Pacer Clinic Pacer Clinic [facility] Work Phone: Start: 12-16-2016 End: 01-22-2017 *Hepatic Function Panel *Hepatic Function Panel [facility] Work Phone: Start: 12-16-2016 End: 01-22-2017 Lipid 1996 panel *Lipid Profile CC PCP [facility] Work Phone: Start: 12-16-2016 End: 01-22-2017 *Hepatic Function Panel *Hepatic Function Panel [facility] Work Phone: Start: 12-16-2016 End: 01-22-2017 Lipid panel [AGGREGATE] *Lipid Profile CC PCP [facility] Work Phone: Start: 11-27-2015 End: 12-16-2016 *Hepatic Function Panel *Hepatic Function Panel [facility] Work Phone: Start: 11-27-2015 End: 12-16-2016 Lipid 1996 panel *Lipid Profile CC PCP [facility] Work Phone: Start: 11-27-2015 End: 12-16-2016 *Hepatic Function Panel *Hepatic Function Panel [facility] Work Phone: Start: 11-27-2015 End: 12-16-2016 Lipid panel [AGGREGATE] *Lipid Profile CC PCP [facility] Work Phone: Start: 01-09-2015 End: 02-16-2015 Follow Up Appt 3 months Follow Up Appt 3 months [facility] Work Phone: Start: 01-09-2015 End: 02-16-2015 Pacer Clinic Pac[facility] Clinic [facility] Work Phone: Start: 01-09-2015 End: 02-16-2015 Follow Up Appt 3 months Follow Up Appt 3 months [facility] Work Phone: Start: 01-09-2015 End: 02-16-2015 Pacer Clinic [facility] Clinic [facility] Work Phone: Start: 09-27-2014 End: 01-04-2015 Follow Up Appt 3 months Follow Up Appt 3 months [facility] Work Phone: Start: 09-27-2014 End: 01-04-2015 Pacer Clinic Pacer Clinic [facility] Work Phone: Start: 09-27-2014 End: 01-04-2015 Follow Up Appt 3 months Follow Up Appt 3 months [facility] Work Phone: Start: 09-27-2014 End: 01-04-2015 Pacer Clinic Pac[facility] Clinic [facility] Work Phone: Start: 06-01-2014 End: 01-04-2015 Follow Up Appt 3 months Follow Up Appt 3 months [facility] Work Phone: Start: 06-01-2014 End: 01-04-2015 Pacer Clinic Pacer Clinic [facility] Work Phone: Start: 06-01-2014 End: 01-04-2015 Follow Up Appt 3 months Follow Up Appt 3 months [facility] Work Phone: Start: 06-01-2014 End: 01-04-2015 Pacer Clinic [facility] Clinic [facility] Work Phone: Start: 01-13-2014 End: 03-07-2014 *Hepatic Function Panel *Hepatic Function Panel [facility] Work Phone: Start: 01-13-2014 End: 01-13-2014 DJN DJN [facility] Work Phone: Start: 01-13-2014 End: 01-13-2014 Follow Up Appt 1 year Follow Up Appt 1 year [facility] Work Phone: Start: 01-13-2014 End: 01-13-2014 Follow Up Appt 3 months Follow Up Appt 3 months [facility] Work Phone: Start: 01-13-2014 End: 03-07-2014 Lipid 1996 panel *Lipid Profile CC PCP [facility] Work Phone: Start: 01-13-2014 End: 01-13-2014 Pacer Clinic Pacer Clinic [facility] Work Phone: Start: 01-13-2014 End: 03-07-2014 *Hepatic Function Panel *Hepatic Function Panel [facility] Work Phone: Start: 01-13-2014 End: 01-13-2014 DJN DJN [facility] Work Phone: Start: 01-13-2014 End: 01-13-2014 Follow Up Appt 1 year Follow Up Appt 1 year [facility] Work Phone: Start: 01-13-2014 End: 01-13-2014 Follow Up Appt 3 months Follow Up Appt 3 months [facility] Work Phone: Start: 01-13-2014 End: 03-07-2014 Lipid panel [AGGREGATE] *Lipid Profile CC PCP [facility] Work Phone: Start: 01-13-2014 End: 01-13-2014 Pacer Clinic [facility] Work Phone: Start: 12-02-2013 End: 12-29-2013 *Hepatic Function Panel *Hepatic Function Panel [facility] Work Phone: Start: 12-02-2013 End: 12-29-2013 Lipid 1996 panel *Lipid Profile CC PCP [facility] Work Phone: Start: 12-02-2013 End: 12-29-2013 *Hepatic Function Panel *Hepatic Function Panel [facility] Work Phone: Start: 12-02-2013 End: 12-29-2013 Lipid panel [AGGREGATE] *Lipid Profile CC PCP [facility] Work Phone: Start: 07-16-2013 End: 12-29-2013 *Hepatic Function Panel *Hepatic Function Panel [facility] Work Phone: Start: 07-16-2013 End: 12-29-2013 Lipid 1996 panel *Lipid Profile CC PCP [facility] Work Phone: Start: 07-16-2013 End: 12-29-2013 *Hepatic Function Panel *Hepatic Function Panel [facility] Work Phone: Start: 07-16-2013 End: 12-29-2013 Lipid panel [AGGREGATE] *Lipid Profile CC PCP [facility] Work Phone: Start: 05-21-2013 End: 12-29-2013 Follow Up Appt 3 months Follow Up Appt 3 months [facility] Work Phone: Start: 05-21-2013 End: 12-29-2013 Pacer Clinic [facility] Work Phone: Start: 05-21-2013 End: 12-29-2013 Follow Up Appt 3 months Follow Up Appt 3 months [facility] Work Phone: Start: 05-21-2013 End: 12-29-2013 Pacer Clinic [facility] Work Phone: Start: 02-17-2013 End: 12-29-2013 Follow Up Appt 3 months Follow Up Appt 3 months [facility] Work Phone: Start: 02-17-2013 End: 12-29-2013 Pacer Clinic Pacer Clinic [facility] Work Phone: Start: 02-17-2013 End: 12-29-2013 Follow Up Appt 3 months Follow Up Appt 3 months [facility] Work Phone: Start: 02-17-2013 End: 12-29-2013 Pacer Clinic Pacer Clinic [facility] Work Phone: Start: 10-13-2012 End: 10-13-2012 Follow Up Appt 6 months Follow Up Appt 6 months [facility] Work Phone: Start: 10-13-2012 End: 10-13-2012 Follow Up Appt 6 months Follow Up Appt 6 months [facility] Work Phone: Start: 04-20-2012 End: 04-28-2012 *BMP *BMP [facility] Work Phone: Start: 04-20-2012 End: 04-28-2012 *CBC with Differential *CBC with Differential [facility] Work Phone: Start: 04-20-2012 End: 09-22-2012 *Hepatic Function Panel *Hepatic Function Panel [facility] Work Phone: Start: 04-20-2012 End: 04-20-2012 Follow Up Appt 6 months Follow Up Appt 6 months [facility] Work Phone: Start: 04-20-2012 End: 10-13-2012 Lipid 1996 panel *Lipid Profile [facility] Work Phone: Start: 04-20-2012 End: 10-13-2012 Magnesium mass conc *Magnesium [facility] Work Phone: Start: 04-20-2012 End: 04-28-2012 *BMP *BMP [facility] Work Phone: Start: 04-20-2012 End: 04-28-2012 *CBC with Differential *CBC with Differential [facility] Work Phone: Start: 04-20-2012 End: 09-22-2012 *Hepatic Function Panel *Hepatic Function Panel [facility] Work Phone: Start: 04-20-2012 End: 04-20-2012 Follow Up Appt 6 months Follow Up Appt 6 months [facility] Work Phone: Start: 04-20-2012 End: 10-13-2012 Lipid panel [AGGREGATE] *Lipid Profile [facility] Work Phone: Start: 04-20-2012 End: 10-13-2012 Magnesium *Magnesium [facility] Work Phone: Patient Education HEART%20HEALTHY%20DIET [facility] Work Phone: Payers Date Payer Category Payer Unknown [id number] Unknown Social History Date Type Detail Facility [facility] Tobacco smoking consumption unknown [facility] Clinical Note 04-10-2021 Note Date & Type Note Facility 04-10-2021 Note Patient Outreach (IN TMMN) FRANCIS MORTON ([id number]) 1955 M Date Time Provider Department 04/10/21 SHAY DEL ROSARIO III During your visit today, we recorded the following information about you: Allergies As of Date: 04/10/2021 Noted Allergy Reaction IODINE (CONTRAST DYE) 04/13/2007 2 - Rash OXYCONTIN (OXYCODONE HCL) 01/22/2006 PRAVACHOL (PRAVASTATIN SODIUM) 06/14/2010 Comments: elevated liver function tests ZETIA (EZETIMIBE) 06/14/2010 Comments: elevated liver function tests Date Reviewed: 09/04/2020 Reviewed by: Ngozi ([facility]) AINSLEY Patrick - Fully Assessed Visit Diagnoses:Medication management [Z79.899] Hyperlipidemia LDL goal <100 [E78.5] Order(s):BASIC METABOLIC PNL [SQBMP] Order #: [id number] FUTURE LIPID PANEL BASIC [SQLIPB] Order #: [id number] FUTURE TSH BLD [SQTSH] Order #: [id number] FUTURE CBC [SQCBC] Order #: [id number] FUTURE AST/SGOT BLD [SQAST] Order #: [id number] FUTURE ALT/SGPT [SQALT] Order #: [id number] FUTURE MAGNESIUM BLD [SQMG1] Order #: [id number] FUTURE Prescriptions as of 04/10/2021 Sig: MELOXICAM 15 MG TABLET Take 1 tablet by mouth once d* DULOXETINE 30 MG CAPSULE,TAYLOR* Take 1 capsule by mouth once * BUSPIRONE 10 MG TABLET Take 1 tablet by mouth three * CLOPIDOGREL 75 MG TABLET Take 75 mg by mouth every mor* AMIODARONE 200 MG TABLET Take 400 mg by mouth twice da* LISINOPRIL 2.5 MG TABLET Take 2.5 mg by mouth once consuelo* LORAZEPAM 0.5 MG TABLET Take by mouth twice daily. Fo* PRAVASTATIN 20 MG TABLET Take 20 mg by mouth daily at * METOPROLOL SUCCINATE ER 50 MG* Take 1 tablet by mouth once d* Patient taking differently: Take 100 mg by mouth once consuelo* * NITROGLYCERIN 0.4 MG SUBLINGU* Place one(1) tablet on tongue* * ASPIRIN 81 MG TABLET Take one(1) tablet daily. 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] 01/23/2006 TOX DIF GOITER NO CRISIS [E05.00] 06/25/2006 ROTATOR CUFF SYND NOS [M71.9, M67.919] 04/13/2007 Elevated Liver Function Tests 06/14/2010 Hepatitis, alcoholic [K70.10] 12/27/2010 Abnormal liver function tests [R94.5] 04/02/2011 ASHD (arteriosclerotic heart disease) [I25.10] 04/02/2011 Diarrhea [R19.7] 07/05/2011 Collagenous colitis [K52.831] 07/25/2011 Alcohol abuse [F10.10] 10/16/2012 06/23/2013 Alcoholism /alcohol abuse [[id number]] 06/23/2013 Tobacco abuse [Z72.0] 10/31/2014 Paroxysmal atrial fibrillation (HCC) [I48.0] 11/13/2017 Hyperlipidemia LDL goal <100 [E78.5] 11/13/2017 Physical debility [R53.81] 12/17/2019 Situational depression [F43.21] 12/17/2019 Generalized anxiety disorder with panic attacks*09/04/2020 Dysfunctional grieving [F43.21] 09/04/2020 Encounter Status:Closed by JANNETH CHACON on 04/13/21 [facility] Summary Purpose Family History No Family History Records FoundNo Family History Records FoundNo Family History Records Found Advance Directives No Advanced Directives Records FoundNo Advanced Directives Records FoundNo Advanced Directives Records Found Additional Source Comments (unrecognized sect ion and content) No Status Records FoundNo Status Records FoundNo Status Records Found INFORMATION SOURCE (unrecogn ized section and content) DATE CREATED AUTHOR AUTHOR'S ORGANIZ ATION 12/18/2021 [facility] DATE CREATED AUTHOR AUTHOR'S ORGANIZ ATION 05/15/2022 [facility] <item><item> Privacy Markings (unrecogniz ed section and content) Section Author: Nancy Torres PROHIBITION ON REDISCLOSURE OF CONFIDENTIAL INFORMATION This notice accompanies a disclosure of information concerning a client made to you with the consent of such client. Section Author: Nancy Torres PROHIBITION ON REDISCLOSURE OF CONFIDENTIAL INFORMATION This notice accompanies a disclosure of information concerning a client made to you with the consent of such client. FOR RECORDS PERTAINING TO PATIENTS WHO ARE OR HAVE BEEN ENROLLED IN A CHEMICAL DEPENDENCY/SUBSTANCEABUSE PROGRAM, SOME INFORMATION MAY BE OMITTED. This clinical summary was aggregated from multiple sources. Caution should be exercised in using it in the provision of clinical care. This summary normalizes information from multiple sources, and as a consequence, information in this document may materially change the coding, format and clinical context of patient data. In addition, data may be omitted in some cases. CLINICAL DECISIONS SHOULD BE BASED ON THE PRIMARY CLINICAL RECORDS. [facility]. provides no warranty or guarantee of the accuracy or completeness of information in this document.
[2023-10-21 09:19] LABS: Absolute Lymphocyte Count 1.57 X10^3/uL (0.83-4.51); Absolute Neutrophil Count 8.3 X10^3/uL (2.0-7.7); Basophil# 0.04 X10^3/uL; Basophil% 0.4 % (0-1); Eosinophil# 0.54 X10^3/uL; Eosinophils% 4.7 % (0-5); Hematocrit 36.2 % (40-54); Hemoglobin 12.1 g/dL (13.0-16.5); Lymphocyte # 1.57 X10^3/ul (0.83-4.51); Lymphocyte % 13.7 % (19-41); Mean Corp Hgb Conc 33.4 g/dL (32-36); Mean Corpuscular Hgb 32.7 pg (27.0-32.0); Mean Corpuscular Volume 97.8 fL (80-94); Mean Platelet Vol. 11.3 fl (6.2-12.0); Monocyte# 0.95 X10^3/uL; Monocyte% 8.3 % (0-10); NRBC Flagged by Analyzer 0 % (0-5); Neutrophil # 8.26 X10^3/uL (2.7-7.7); Neutrophil % 72.4 % (47-70); Platelet Count 279 K/mm3 (150-450); RBC Distribution Width CV 14.2 % (11.6-14.6); RBC Distribution Width SD 51.6 fl (35.1-43.9); White Blood Count 11.4 K/mm3 (4.4-11.0)
[2023-10-21 09:23] LABS: ALB/GLOB Ratio 0.7 RATIO (0.9-2.4); AST(SGOT) 77 U/L (15-37); Alanine Aminotransfer ALT/SGPT 75 U/L (16-61); Albumin, Serum 2.8 g/dL (3.2-5.0); Alkaline Phosphatase 114 U/L (45-117); Anion Gap 7 (5-15); BUN 9 mg/dL (7-18); BUN/Creat Ratio 19.3 RATIO (10-20); Chloride 98 mmol/L (98-107); Creatinine, Serum 0.47 mg/dL (0.70-1.30); EST Glomerular Filtration Rate 191 mL/min (>60); Est Glom Filt Rate - Afr Amer 231 mL/min (>60); Glucose 102 mg/dL (74-106); Potassium 4.3 mmol/L (3.5-5.1); Protein, Total 6.8 g/dL (6.4-8.2); Sodium Level 128 mmol/L (136-145)
== END ==
LOC: OLS.WHLEAS 05:00
PROVIDERS: PCP Internal Medicine; Visit Provider Internal Medicine
DX: K70.10 Alcoholic hepatitis without ascites (principal); L97.512 Non-pressure chronic ulcer of other part of right foot with fat layer exposed; L03.115 Cellulitis of right lower limb
CPT/HCPCS: 36415; 80053; 82140; 85025

== ENCOUNTER → 2023-10-28 | Outpatient (REF) | payer MEDICARE, MEDICAID, SELFPAY ==
[2023-09-01 14:43] VITALS: BMI 29.2
[2023-10-28 08:05] LABS: Hematocrit 39.6 % (40-54); Hemoglobin 13.2 g/dL (13.0-16.5); Mean Corp Hgb Conc 33.3 g/dL (32-36); Mean Corpuscular Hgb 33.1 pg (27.0-32.0); Mean Corpuscular Volume 99.2 fL (80-94); Mean Platelet Vol. 10.7 fl (6.2-12.0); Platelet Count 271 K/mm3 (150-450); RBC Distribution Width CV 14.4 % (11.6-14.6); Red Blood Count 3.99 M/mm3 (4.6-6.2); White Blood Count 8.8 K/mm3 (4.4-11.0)
[2023-10-28 08:08] LABS: ALB/GLOB Ratio 0.7 RATIO (0.9-2.4); AST(SGOT) 94 U/L (15-37); Alanine Aminotransfer ALT/SGPT 80 U/L (16-61); Albumin, Serum 2.6 g/dL (3.2-5.0); Alkaline Phosphatase 109 U/L (45-117); Anion Gap 3 (5-15); BUN 12 mg/dL (7-18); BUN/Creat Ratio 20.8 RATIO (10-20); Calcium,Total 8.8 mg/dL (8.5-10.1); Chloride 102 mmol/L (98-107); Creatinine, Serum 0.58 mg/dL (0.70-1.30); EST Glomerular Filtration Rate 149 mL/min (>60); Est Glom Filt Rate - Afr Amer 180 mL/min (>60); Globulin 3.7 g/dL (2.2-4.2); Glucose 91 mg/dL (74-106); Potassium 4.1 mmol/L (3.5-5.1); Protein, Total 6.3 g/dL (6.4-8.2); Sodium Level 134 mmol/L (136-145)
--- OUTSIDE RECORDS SUMMARY | 2023-10-29 18:59 | XMS RPT_ITS | CCD ---
Author Name Unknown Address [address] [place] [address] Organization [facility] Care Team Providers [facility] [place] [facility] Name Role Phone MD Naga, Luis Augustin Unavailable [phone] GONGORA, Simona Marrufo Unavailable Unavailable FRANSISCA [...] Unavailable Unavailable FATEMEH NAJERA Unavailable Unavailable JIM PARHAMMAN Unavailable Unavailable FRANSISCA Hernandez, Angela M Unavailable [...] Hmg-Coa Reductase Inhibitors (Statins) Drug Allergy Unknown [facility] (7 sources) ezetimibe drug allergy 04-23-2017 myalgia's [facility] Work Phone: (12 sources) Hmg-Coa Reductase Inhibitors (Statins) drug allergy 01-13-2014 Elevated Liver Enzymes [facility] Work Phone: (12 sources) iodine drug allergy 05-24-2011 Rash [facility] Work Phone: Medications Current Medications Medication Drug [...] tablet by mouth twice daily AMLODIPINE BESYLATE [id number] Luis Martin MD Problems Active Problems Problem Classification Problem Date Documented Date Episodic/Chronic Cardiac dysrhythmias (20 sources) Ventricular tachycardia; Translations: [Premature beats] Onset: 05-24-2011 05-24-2011 Chronic Coronary atherosclerosis and other heart disease (20 sources) 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; Translations: [Coronary [...] 05-24-2011 Episodic Other aftercare (14 sources) Other supervisor intermediates (current) drug therapy; Translations: [Other supervisor intermediates (current) drug therapy] Onset: 05-24-2011 05-24-2011 Episodic Other nutritional; endocrine; and metabolic disorders (12 sources) Body mass index (BMI) 27.0-27.9, adult; Translations: [Body mass index (BMI) 27.0-27.9, adult] Onset: 01-23-2017 01-23-2017 Episodic Results Test Name Value Interpretation Reference Range Facil ity Vital Signs Date Time Vital Sign Value Performing Clinician Facility 05-27-2021 14:37-0400 Diastolic blood pressure 68 mm[Hg] Sahy Cebul Other Phone: [facility] 05-27-2021 14:37-0400 Heart rate 73 /min Shay Cebul Other Phone: [facility] 05-27-2021 14:37-0400 Respiratory rate 18 /min Shay Cebul Other Phone: [facility] 05-27-2021 14:37-0400 Systolic blood pressure 124 mm[Hg] Shay Cebul Other Phone: [facility] 05-27-2021 13:30-0400 SaO2% (BldA) [Mass fraction] 97 % Shay Cebul Other Phone: [facility] 05-27-2021 12:08-0400 Body height 187.9 cm Shay Cebul Other Phone: [facility] 05-27-2021 12:08-0400 Body temperature 99.14 [degF] Shay Cebul Other Phone: [facility] 05-27-2021 12:08-0400 Body weight 90.9 kg Shay Cebul Other Phone: [facility] 05-24-2021 05:30-0400 Diastolic blood pressure 78 mm[Hg] Shay Cebul Other Phone: [facility] 05-24-2021 05:30-0400 Heart rate 90 /min Shay Cebul Other Phone: [facility] 05-24-2021 05:30-0400 Respiratory rate 18 /min Shay Cebul Other Phone: [facility] 05-24-2021 05:30-0400 SaO2% (BldA) [Mass fraction] 95 % Shay Cebul Other Phone: [facility] 05-24-2021 05:30-0400 Systolic blood pressure 130 mm[Hg] Shay Cebul Other Phone: [facility] 08-05-2017 15:22-0400 BMI (Body Mass Index) 27.47 kg/m2 FRANSIS[facility] Work Phone: 08-05-2017 15:22-0400 BP Diastolic 70 mm[Hg] FRANSISCA [facility] Work Phone: 08-05-2017 15:22-0400 BP Systolic 122 mm[Hg] Angela Hernandez RN [facility] Work Phone: 08-05-2017 15:22-0400 Height 187.96 cm Angela Hernandez RN [facility] Work Phone: 08-05-2017 15:22-0400 Pulse [...] Chart Update Shay Del Rosario Work Phone: [facility] [facility] Work Phone: Start: 02-14-2022 Chart Update Shay Del Rosario Work Phone: [facility] [facility] Work Phone: Start: 05-27-2021 End: 05-27-2021 Emergency department patient visit Cy Watkinstelma [facility] Emergency 16 Start: 05-24-2021 End: 05-24-2021 Emergency department patient visit Tommy Horn [facility] Emergency 16 Start: 11-08-2017 End: 11-11-2017 Evaluation [...] PA-C Work Phone: Start: 09-27-2014 End: 01-04-2015 [place] [facility] Dayanna Mercedes PA-C Work Phone: Start: 09-27-2014 End: 09-27-2014 Prgrmng dev eval implantable in persn 1 ld dfb Dayanna Mercedes PA-C Work Phone: Start: 09-27-2014 End: 01-04-2015 Follow Up Appt 3 months Dayanna fernández PA-C Work Phone: Start: 09-27-2014 End: 09-27-2014 Icd device prog eval, 1 sngl Dayanna Mercedes PA-C Work Phone: Start: 09-27-2014 End: 01-04-2015 [place] [facility] Dayanna Mercedes PA-C Work Phone: Start: 06-01-2014 End: 01-04-2015 Follow Up Appt 3 months Dayanna fernández PA-C Work Phone: Start: 06-01-2014 End: 01-04-2015 [place] Dayanna Mercedes PA-C Work Phone: Start: [...] End: 01-12-2013 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 eval remote 90 d 1/2/counselling psychologist ld dfmanda Ramos MD Start: 01-12-2013 End: [...] End: 04-28-2012 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 eval remote 90 d 1/2/counselling psychologist ld dfb Yevgeniy Ramos MD Start: 04-20-2012 End: 10-13-2012 Lipid 1996 [...] 6 months Follow Up Appt 6 months [facility] Work Phone: Start: 08-05-2017 End: 08-05-2017 Follow Up BP Check Follow Up BP Check [facility] Work Phone: Start: 08-05-2017 End: 08-05-2017 Pacer Clinic [facility] Work Phone: Start: 07-28-2017 End: 07-28-2017 Appointment Appointment [facility] Work Phone: Start: 07-28-2017 End: 07-28-2017 Appointment Appointment [facility] Work Phone: Start: 07-08-2017 End: 07-28-2017 *Hepatic Function Panel *Hepatic Function Panel [facility] Work Phone: Start: 07-08-2017 End: 07-28-2017 Lipid 1996 panel *Lipid Profile CC PCP [facility] Work Phone: Start: 07-08-2017 End: 07-28-2017 *Hepatic Function Panel *Hepatic Function Panel [facility] Work Phone: Start: 07-08-2017 End: 07-28-2017 Lipid panel [AGGREGATE] *Lipid Profile CC PCP [facility] Work Phone: Start: 03-10-2017 End: 04-03-2017 *Hepatic Function Panel *Hepatic Function Panel [facility] Work Phone: Start: 03-10-2017 End: 04-03-2017 Lipid 1996 panel *Lipid Profile CC PCP [facility] Work Phone: Start: 03-10-2017 End: 04-03-2017 *Hepatic Function Panel *Hepatic Function Panel [facility] Work Phone: Start: 03-10-2017 End: 04-03-2017 Lipid panel [AGGREGATE] *Lipid Profile CC PCP [facility] Work Phone: Start: 01-23-2017 End: 01-23-2017 GERALD DUARTE [facility] Work Phone: Start: 01-23-2017 End: 01-23-2017 Ecg routine ecg w/least 12 lds w/i&r EKG (In office) [facility] Work Phone: Start: 01-23-2017 End: 01-23-2017 Echocardiography Echocardiogram (complete) [facility] Work Phone: Start: 01-23-2017 End: 03-13-2017 Follow Up Appt 6 months Follow Up Appt 6 months [facility] Work Phone: Start: 01-23-2017 End: 01-23-2017 Follow Up BP Check Follow Up BP Check [facility] Work Phone: Start: 01-23-2017 End: 03-13-2017 Pacer Clinic [facility] Work Phone: Start: 01-23-2017 End: 01-23-2017 GERALD DUARTE [facility] Work Phone: Start: 01-23-2017 End: 03-13-2017 Echocardiography Echocardiogram (complete) [facility] Work Phone: Start: 01-23-2017 End: 01-23-2017 Electrocardiogram, complete EKG (In office) [facility] Work Phone: Start: 01-23-2017 End: 03-13-2017 Follow Up Appt 6 months Follow Up Appt 6 months [facility] Work Phone: Start: 01-23-2017 End: 01-23-2017 Follow Up BP Check Follow Up BP Check [facility] Work Phone: Start: 01-23-2017 End: 03-13-2017 Pacer Clinic Pacer Clinic [facility] Work Phone: Start: 12-16-2016 End: 01-22-2017 *Hepatic Function Panel *Hepatic Function Panel [facility] Work Phone: Start: 12-16-2016 End: 01-22-2017 Lipid 1996 panel *Lipid Profile CC PCP [facility] Work Phone: Start: 12-16-2016 End: 01-22-2017 *Hepatic Function Panel *Hepatic Function Panel [facility] Work Phone: Start: 12-16-2016 End: 01-22-2017 Lipid panel [AGGREGATE] *Lipid Profile CC PCP [facility] Work Phone: Start: 11-27-2015 End: 12-16-2016 *Hepatic Function Panel *Hepatic Function Panel [facility] Work Phone: Start: 11-27-2015 [...] 3 months Follow Up Appt 3 months [facility] Work Phone: Start: 01-09-2015 End: 02-16-2015 Pacer Clinic Pac[facility] Clinic [facility] Work Phone: Start: 01-09-2015 End: 02-16-2015 Follow Up Appt 3 months Follow Up Appt 3 months [facility] Work Phone: Start: 01-09-2015 End: 02-16-2015 Pacer Clinic Pacer Clinic [facility] Work Phone: Start: 09-27-2014 End: 01-04-2015 Follow Up Appt 3 months Follow Up Appt 3 months [facility] Work Phone: Start: 09-27-2014 End: 01-04-2015 Pacer Clinic Pac[facility] Clinic [facility] Work Phone: Start: 09-27-2014 End: 01-04-2015 Follow Up Appt 3 months Follow Up Appt 3 months [facility] Work Phone: Start: 09-27-2014 End: 01-04-2015 Pacer Clinic [facility] Clinic [facility] Work Phone: Start: 06-01-2014 End: 01-04-2015 Follow Up Appt 3 months Follow Up Appt 3 months [facility] Work Phone: Start: 06-01-2014 End: 01-04-2015 Pacer Clinic Pacer Clinic [facility] Work Phone: Start: 06-01-2014 End: 01-04-2015 Follow Up Appt 3 months Follow Up Appt 3 months [facility] Work Phone: Start: 06-01-2014 End: 01-04-2015 Pacer Clinic [facility] Clinic [facility] Work Phone: Start: 01-13-2014 End: 03-07-2014 *Hepatic Function Panel *Hepatic Function Panel [facility] Work Phone: Start: 01-13-2014 End: 01-13-2014 DJN DJN [facility] Work Phone: Start: 01-13-2014 End: 01-13-2014 Follow Up Appt 1 year Follow Up Appt 1 year [facility] Work Phone: Start: 01-13-2014 End: 01-13-2014 Follow Up Appt 3 months Follow Up Appt 3 months [facility] Work Phone: Start: 01-13-2014 End: 03-07-2014 Lipid 1996 panel *Lipid Profile CC PCP [facility] Work Phone: Start: 01-13-2014 End: 01-13-2014 Pacer Clinic Pacer Clinic [facility] Work Phone: Start: 01-13-2014 End: 03-07-2014 *Hepatic Function Panel *Hepatic Function Panel [facility] Work Phone: Start: 01-13-2014 End: 01-13-2014 DJN DJN [facility] Work Phone: Start: 01-13-2014 End: 01-13-2014 Follow Up Appt 1 year Follow Up Appt 1 year [facility] Work Phone: Start: 01-13-2014 End: 01-13-2014 Follow Up Appt 3 months Follow Up Appt 3 months [facility] Work Phone: Start: 01-13-2014 End: 03-07-2014 Lipid panel [AGGREGATE] *Lipid Profile CC PCP [facility] Work Phone: Start: 01-13-2014 End: 01-13-2014 Pacer Clinic Pacer Clinic [facility] Work Phone: Start: 12-02-2013 End: 12-29-2013 *Hepatic Function Panel *Hepatic Function Panel [facility] Work Phone: Start: 12-02-2013 End: 12-29-2013 Lipid 1996 panel *Lipid Profile CC PCP [facility] Work Phone: Start: 12-02-2013 End: 12-29-2013 *Hepatic Function Panel *Hepatic Function Panel [facility] Work Phone: Start: 12-02-2013 [...] Lipid panel [AGGREGATE] *Lipid Profile CC PCP [facility] Work Phone: Start: 05-21-2013 End: 12-29-2013 Follow Up Appt 3 months Follow Up Appt 3 months [facility] Work Phone: Start: 05-21-2013 End: 12-29-2013 Pacer Clinic Pacer Clinic [facility] Work Phone: Start: 05-21-2013 End: [...] 02-17-2013 End: 12-29-2013 Pacer Clinic Pacer Clinic [facility] Work Phone: Start: 02-17-2013 End: 12-29-2013 Follow Up Appt 3 months Follow Up Appt 3 months [facility] Work Phone: Start: 02-17-2013 End: 12-29-2013 Pacer Clinic Pacer Clinic [facility] Work Phone: Start: 10-13-2012 End: 10-13-2012 Follow Up Appt 6 months Follow Up Appt 6 months [facility] Work Phone: Start: 10-13-2012 End: 10-13-2012 Follow Up Appt 6 months Follow Up Appt 6 months [facility] Work Phone: Start: 04-20-2012 End: 04-28-2012 *BMP *BMP [facility] Work Phone: Start: 04-20-2012 End: 04-28-2012 *CBC with Differential *CBC with Differential [facility] Work Phone: Start: 04-20-2012 End: 09-22-2012 *Hepatic Function Panel *Hepatic Function Panel [facility] Work Phone: Start: 04-20-2012 End: 04-20-2012 Follow Up Appt 6 months Follow Up Appt 6 months [facility] Work Phone: Start: 04-20-2012 End: 10-13-2012 Lipid 1996 panel *Lipid Profile [facility] Work Phone: Start: 04-20-2012 End: 10-13-2012 Magnesium mass conc *Magnesium [facility] Work Phone: Start: 04-20-2012 End: 04-28-2012 *BMP *BMP [facility] Work Phone: Start: 04-20-2012 End: [...] End: 10-13-2012 Lipid panel [AGGREGATE] *Lipid Profile [facility] Work Phone: Start: 04-20-2012 End: 10-13-2012 Magnesium *Magnesium [facility] Work Phone: Patient Education HEART%20HEALTHY%20DIET [facility] Work Phone: Payers Date Payer Category Payer Unknown [id number] Unknown Social History Date Type Detail Facility [facility] Tobacco smoking consumption unknown [facility] Clinical Note 04-10-2021 Note Date & Type Note Facility 04-10-2021 Note Patient Outreach (IN TMMN) FRANCIS MORTON ([id number]) 1955 M Date Time Provider Department 04/10/21 [...] tests Date Reviewed: 09/04/2020 Reviewed by: Ngozi ([facility]) AINSLEY Patrick - Fully Assessed Visit Diagnoses:Medication management [Z79.899] Hyperlipidemia LDL goal <100 [E78.5] Order(s):BASIC METABOLIC PNL [SQBMP] Order #: [id number] FUTURE LIPID PANEL BASIC [SQLIPB] Order #: [id number] FUTURE TSH BLD [SQTSH] Order #: [id number] FUTURE CBC [SQCBC] Order #: [id number] FUTURE AST/SGOT BLD [SQAST] Order #: [id number] FUTURE ALT/SGPT [SQALT] Order #: [id number] FUTURE MAGNESIUM BLD [SQMG1] Order #: [id number] FUTURE Prescriptions as of 04/10/2021 Sig: MELOXICAM [...] abuse [F10.10] 10/16/2012 06/23/2013 Alcoholism /alcohol abuse [[id number]] 06/23/2013 Tobacco abuse [Z72.0] 10/31/2014 Paroxysmal atrial fibrillation (HCC) [I48.0] 11/13/2017 Hyperlipidemia LDL goal <100 [E78.5] 11/13/2017 Physical debility [R53.81] 12/17/2019 Situational depression [F43.21] 12/17/2019 Generalized anxiety disorder with panic attacks*09/04/2020 Dysfunctional grieving [F43.21] 09/04/2020 Encounter Status:Closed by JANNETH CHACON on 04/13/21 [facility] Summary Purpose Family History No Family History [...] DATE CREATED AUTHOR AUTHOR'S ORGANIZ ATION 12/18/2021 [facility] DATE CREATED AUTHOR AUTHOR'S ORGANIZ ATION 05/15/2022 [facility] <item><item> Privacy Markings (unrecogniz ed section [...] BE BASED ON THE PRIMARY CLINICAL RECORDS. [facility]. provides no warranty or guarantee of the accuracy or completeness of information in this document.
== END ==
LOC: OLS.WHLEAS 05:00
PROVIDERS: PCP Internal Medicine; Visit Provider Internal Medicine
DX: K70.10 Alcoholic hepatitis without ascites (principal); L97.512 Non-pressure chronic ulcer of other part of right foot with fat layer exposed; L03.115 Cellulitis of right lower limb; M62.561 Muscle wasting and atrophy, not elsewhere classified, right lower leg; I10 Essential (primary) hypertension
CPT/HCPCS: 36415; 80053; 82140; 85027

== ENCOUNTER → 2023-11-04 | Outpatient (REF) | payer MEDICARE, MEDICAID, SELFPAY ==
[2023-09-01 14:43] VITALS: BMI 29.2
--- OUTSIDE RECORDS SUMMARY | 2023-11-04 04:30 | XMS RPT_ITS | CCD ---
Author Name Unknown Address [address] [place] [address] Organization [facility] Care Team Providers Care Driver Service Technician Name Role Phone MD Naga, Luis Augustin Unavailable Sole GONGORA, Simona Marrufo Unavailable Unavailable FRANSISCA River, Nena Keen Unavailable Unavailandrew River RN, Nena Keen Unavailable Unavailandrew River RN, Nena Keen Unavailable UnavailRAMON Peres Unavailable Unavailable RAMON POTTS Unavailable Unavailable JUAN PABLO SHAY A III Unavailable Unavailable FRANCISCO MARTIN Unavailable Unavailable YAYA BUNDY Unavailable Unavailable KIKA BAL Unavailable Unavailabl DOLORES Shankar Unavailable Unavailable JUAN PABLO SHAY A III Unavailable Unavailable DOLORES WANG Unavailable Unavailable RAMON POTTS Unavailable Unavailable FRANCISCO MARTIN Unavailable Unavailable FATEMEH NAJERA Unavailable Unavailable JIM PARHAMMAN Unavailable Unavailable FRANSISCA Hernandez, Angela M Unavailable Unavailable FRANSISCA Hernanedz, Angela M Unavailable Unavailable FRANSISCA Hernandez, Angela [...] Hmg-Coa Reductase Inhibitors (Statins) Drug Allergy Unknown [facility] (7 sources) ezetimibe drug allergy 04-23-2017 myalgia's [facility] Work Phone: (12 sources) Hmg-Coa Reductase Inhibitors (Statins) drug allergy 01-13-2014 Elevated Liver Enzymes [facility] Work Phone: (12 sources) iodine drug allergy 05-24-2011 Rash [place] [employer] [employer] Work Phone: Medications Current Medications Medication Drug [...] tablet by mouth twice daily AMLODIPINE BESYLATE [id number] Luis Martin MD Problems Active Problems Problem Classification Problem Date Documented Date Episodic/Chronic Cardiac dysrhythmias (20 sources) Ventricular tachycardia; Translations: [Premature beats] Onset: 05-24-2011 05-24-2011 Chronic Coronary atherosclerosis and other heart disease (20 sources) Atherosclerotic heart disease of campo coronary artery without angina pectoris; Translations: [Coronary [...] 05-24-2011 Episodic Other aftercare (14 sources) Other senior care (current) drug therapy; Translations: [Other senior care (current) drug therapy] Onset: 05-24-2011 05-24-2011 Episodic Other nutritional; endocrine; and metabolic disorders (12 sources) Body mass index (BMI) 27.0-27.9, adult; Translations: [Body mass index (BMI) 27.0-27.9, adult] Onset: 01-23-2017 01-23-2017 Episodic Results Test Name Value Interpretation Reference Range Facil ity Vital Signs Date Time Vital Sign Value Performing Clinician Facility 05-27-2021 14:37-0400 Diastolic blood pressure 68 mm[Hg] Shay Cebul Other Phone: [facility] 05-27-2021 14:37-0400 Heart rate 73 /min Shay Cebul Other Phone: [facility] 05-27-2021 14:37-0400 Respiratory rate 18 /min Shay Cebul Other Phone: [facility] 05-27-2021 14:37-0400 Systolic blood pressure 124 mm[Hg] Shay Cebul Other Phone: [facility] 05-27-2021 13:30-0400 SaO2% (BldA) [Mass fraction] 97 % Shay Cebul Other Phone: [facility] 05-27-2021 12:08-0400 Body height 187.9 cm Shay Cebul Other Phone: [facility] 05-27-2021 12:08-0400 Body temperature 99.14 [degF] Shay Cebul Other Phone: [facility] 05-27-2021 12:08-0400 Body weight 90.9 kg Shay Cebul Other Phone: [facility] 05-24-2021 05:30-0400 Diastolic blood pressure 78 mm[Hg] Shay Cebul Other Phone: [facility] 05-24-2021 05:30-0400 Heart rate 90 /min Shay Cebul Other Phone: [facility] 05-24-2021 05:30-0400 Respiratory rate 18 /min Shay Cebul Other Phone: [facility] 05-24-2021 05:30-0400 SaO2% (BldA) [Mass fraction] 95 % Shay Cebul Other Phone: [facility] 05-24-2021 05:30-0400 Systolic blood pressure 130 mm[Hg] Shay Cebul Other Phone: [facility] 08-05-2017 15:22-0400 BMI (Body Mass Index) 27.47 kg/m2 FRANSISCA [facility] Work Phone: 08-05-2017 15:22-0400 BP Diastolic 70 mm[Hg] FRANSISCA [facility] Work Phone: 08-05-2017 15:22-0400 BP Systolic 122 mm[Hg] Angela Hernandez RN [facility] Work Phone: 08-05-2017 15:22-0400 Height 187.96 cm Angela Hernandez RN [facility] Work Phone: 08-05-2017 15:22-0400 Pulse (Heart Rate) 68 /min FRANSISCA [facility] Work Phone: 08-05-2017 15:22-0400 Respiratory Rate 18 /min FRANSISCA [facility] Work Phone: 08-05-2017 15:22-0400 Weight 97.07 kg Angela Hernandez RN [facility] Work Phone: 01-23-2017 14:36-0400 Heart rate 107 /min Harumi Faribais [facility] Work Phone: 01-23-2017 14:07-0400 BMI [...] Chart Update Shay Del Rosario Work Phone: [employer] Work Phone: Start: 02-14-2022 Chart Update Shay Del Rosario Work Phone: [employer] [facility] Work Phone: Start: 05-27-2021 End: 05-27-2021 Emergency department patient visit Cy Watkinstelma [facility] Emergency 16 Start: 05-24-2021 End: 05-24-2021 Emergency department patient visit Tommy Horn [facility] Emergency 16 Start: 11-08-2017 End: 11-11-2017 [...] End: 08-05-2017 Follow Up BP Check Luis Maritn MD Work Phone: Start: 08-05-2017 End: 08-05-2017 [...] PA-C Work Phone: Start: 09-27-2014 End: 01-04-[address] [facility] Dayanna Mercedse PA-C Work Phone: Start: 09-27-2014 End: 09-27-2014 Prgrmng dev eval implantable in persn 1 ld dfb Dayanna Mercedes PA-C Work Phone: Start: 09-27-2014 End: 01-04-2015 Follow Up Appt 3 months Dayanna fernández PA-C Work Phone: Start: 09-27-2014 End: 09-27-2014 Icd device prog eval, 1 sngl Dayanna Mercedes PA-C Work Phone: Start: 09-27-2014 End: 01-04-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 operator ld dfmanda Ramos MD Start: 01-12-2013 End: [...] End: 04-28-2012 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 eval remote 90 d 1/2/explosives operator ld dfb eYvgeniy Ramos MD Start: 04-20-2012 End: 10-13-2012 Lipid [...] Author Start: 02-12-2018 End: 02-12-2018 Appointment Appointment [facility] Work Phone: Start: 09-16-2017 End: 08-05-2017 *Hepatic Function Panel *Hepatic Function Panel [facility] Work Phone: Start: 09-16-2017 End: 08-05-2017 Lipid 1996 panel *Lipid Profile CC PCP [facility] Work Phone: Start: 08-26-2017 End: 08-26-2017 Appointment Appointment [facility] Work Phone: Start: 08-05-2017 End: 08-05-2017 Appointment Appointment [facility] Work Phone: Start: 08-05-2017 End: 08-05-2017 GERALD DUARTE [facility] Work Phone: Start: 08-05-2017 End: 08-05-2017 Follow Up Appt 6 months Follow Up Appt 6 months [facility] Work Phone: Start: 08-05-2017 End: 08-05-2017 Follow Up BP Check Follow Up BP Check [facility] Work Phone: Start: 08-05-2017 End: 08-05-2017 Pacer Clinic [facility] Work Phone: Start: 07-28-2017 End: 07-28-2017 Appointment Appointment [facility] Work Phone: Start: 07-28-2017 End: 07-28-2017 Appointment Appointment [facility] Work Phone: Start: 07-08-2017 End: 07-28-2017 *Hepatic Function Panel *Hepatic Function Panel [facility] Work Phone: Start: 07-08-2017 End: 07-28-2017 Lipid 1996 panel *Lipid Profile CC PCP [facility] Work Phone: Start: 07-08-2017 End: 07-28-2017 *Hepatic Function Panel *Hepatic Function Panel [facility] Work Phone: Start: 07-08-2017 End: 07-28-2017 Lipid panel [AGGREGATE] *Lipid Profile CC PCP [facility] Work Phone: Start: 03-10-2017 End: 04-03-2017 *Hepatic Function Panel *Hepatic Function Panel [facility] Work Phone: Start: 03-10-2017 End: 04-03-2017 Lipid 1996 panel *Lipid Profile CC PCP [facility] Work Phone: Start: 03-10-2017 End: 04-03-2017 *Hepatic Function Panel *Hepatic Function Panel [place] [employer] Work Phone: Start: 03-10-2017 End: 04-03-2017 Lipid panel [AGGREGATE] *Lipid Profile CC PCP [facility] Work Phone: Start: 01-23-2017 End: 01-23-2017 GERALD DUARTE [facility] Work Phone: Start: 01-23-2017 End: 01-23-2017 Ecg routine ecg w/least 12 lds w/i&r EKG (In office) [facility] Work Phone: Start: 01-23-2017 End: 01-23-2017 Echocardiography Echocardiogram (complete) [facility] Work Phone: Start: 01-23-2017 End: 03-13-2017 Follow Up Appt 6 months Follow Up Appt 6 months [facility] Work Phone: Start: 01-23-2017 End: 01-23-2017 Follow Up BP Check Follow Up BP Check [facility] Work Phone: Start: 01-23-2017 End: 03-13-2017 Pacer Clinic Pac[facility] Clinic [facility] Work Phone: Start: 01-23-2017 End: 01-23-2017 GERALD DUARTE [facility] Work Phone: Start: 01-23-2017 End: 03-13-2017 Echocardiography Echocardiogram (complete) [facility] Work Phone: Start: 01-23-2017 End: 01-23-2017 Electrocardiogram, complete EKG (In office) [facility] Work Phone: Start: 01-23-2017 End: 03-13-2017 Follow Up Appt 6 months Follow Up Appt 6 months [facility] Work Phone: Start: 01-23-2017 End: 01-23-2017 Follow Up BP Check Follow Up BP Check [facility] Work Phone: Start: 01-23-2017 End: 03-13-2017 Pacer Clinic Pac[facility] Clinic [facility] Work Phone: Start: 12-16-2016 End: 01-22-2017 *Hepatic Function Panel *Hepatic Function Panel [facility] Work Phone: Start: 12-16-2016 End: 01-22-2017 Lipid 1996 panel *Lipid Profile CC PCP [facility] Work Phone: Start: 12-16-2016 End: 01-22-2017 *Hepatic Function Panel *Hepatic Function Panel [facility] Work Phone: Start: 12-16-2016 End: 01-22-2017 Lipid panel [AGGREGATE] *Lipid Profile CC PCP [facility] Work Phone: Start: 11-27-2015 End: 12-16-2016 *Hepatic Function Panel *Hepatic Function Panel [facility] Work Phone: Start: 11-27-2015 End: 12-16-2016 Lipid 1996 panel *Lipid Profile CC PCP [facility] Work Phone: Start: 11-27-2015 End: 12-16-2016 *Hepatic Function Panel *Hepatic Function Panel [facility] Work Phone: Start: 11-27-2015 End: 12-16-2016 Lipid panel [AGGREGATE] *Lipid Profile CC PCP [facility] Work Phone: Start: 01-09-2015 End: 02-16-2015 Follow Up Appt 3 months Follow Up Appt 3 months [facility] Work Phone: Start: 01-09-2015 End: 02-16-2015 Pacer Clinic Pacer Clinic [facility] Work Phone: Start: 01-09-2015 End: 02-16-2015 Follow Up Appt 3 months Follow Up Appt 3 months [facility] Work Phone: Start: 01-09-2015 End: 02-16-2015 Pacer Clinic Pacer Clinic [facility] Work Phone: Start: 09-27-2014 End: 01-04-2015 Follow Up Appt 3 months Follow Up Appt 3 months [facility] Work Phone: Start: 09-27-2014 End: 01-04-2015 Pacer Clinic Pac[facility] Clinic [facility] Work Phone: Start: 09-27-2014 End: 01-04-2015 Follow Up Appt 3 months Follow Up Appt 3 months [facility] Work Phone: Start: 09-27-2014 End: 01-04-2015 Pacer Clinic Pac[facility] Clinic [facility] Work Phone: Start: 06-01-2014 End: 01-04-2015 Follow Up Appt 3 months Follow Up Appt 3 months [facility] Work Phone: Start: 06-01-2014 End: 01-04-2015 Pacer Clinic Pacer Clinic [facility] Work Phone: Start: 06-01-2014 End: 01-04-2015 Follow Up Appt 3 months Follow Up Appt 3 months [facility] Work Phone: Start: 06-01-2014 End: 01-04-2015 Pacer Clinic [facility] Clinic [facility] Work Phone: Start: 01-13-2014 End: 03-07-2014 *Hepatic Function Panel *Hepatic Function Panel [facility] Work Phone: Start: 01-13-2014 End: 01-13-2014 DJN DJN [facility] Work Phone: Start: 01-13-2014 End: 01-13-2014 Follow Up Appt 1 year Follow Up Appt 1 year [facility] Work Phone: Start: 01-13-2014 End: 01-13-2014 Follow Up Appt 3 months Follow Up Appt 3 months [facility] Work Phone: Start: 01-13-2014 End: 03-07-2014 Lipid 1996 panel *Lipid Profile CC PCP [facility] Work Phone: Start: 01-13-2014 End: 01-13-2014 Pacer Clinic Pacer Clinic [facility] Work Phone: Start: 01-13-2014 End: 03-07-2014 *Hepatic Function Panel *Hepatic Function Panel [facility] Work Phone: Start: 01-13-2014 End: 01-13-2014 DJN DJN [facility] Work Phone: Start: 01-13-2014 End: 01-13-2014 Follow Up Appt 1 year Follow Up Appt 1 year [facility] Work Phone: Start: 01-13-2014 End: 01-13-2014 Follow Up Appt 3 months Follow Up Appt 3 months [facility] Work Phone: Start: 01-13-2014 End: 03-07-2014 Lipid panel [AGGREGATE] *Lipid Profile CC PCP [facility] Work Phone: Start: 01-13-2014 End: 01-13-2014 Pacer Clinic Pacer Clinic [facility] Work Phone: Start: 12-02-2013 End: 12-29-2013 *Hepatic Function Panel *Hepatic Function Panel [facility] Work Phone: Start: 12-02-2013 End: 12-29-2013 Lipid 1996 panel *Lipid Profile CC PCP [facility] Work Phone: Start: 12-02-2013 End: 12-29-2013 *Hepatic Function Panel *Hepatic Function Panel [facility] Work Phone: Start: 12-02-2013 End: 12-29-2013 Lipid panel [AGGREGATE] *Lipid Profile CC PCP [facility] Work Phone: Start: 07-16-2013 End: 12-29-2013 *Hepatic Function Panel *Hepatic Function Panel [facility] Work Phone: Start: 07-16-2013 End: 12-29-2013 Lipid 1996 panel *Lipid Profile CC PCP [facility] Work Phone: Start: 07-16-2013 End: 12-29-2013 *Hepatic Function Panel *Hepatic Function Panel [facility] Work Phone: Start: 07-16-2013 End: 12-29-2013 Lipid panel [AGGREGATE] *Lipid Profile CC PCP [facility] Work Phone: Start: 05-21-2013 End: 12-29-2013 Follow Up Appt 3 months Follow Up Appt 3 months [facility] Work Phone: Start: 05-21-2013 End: 12-29-2013 Pacer Clinic Pacer Clinic [facility] Work Phone: Start: 05-21-2013 End: 12-29-2013 Follow Up Appt 3 months Follow Up Appt 3 months [facility] Work Phone: Start: 05-21-2013 End: 12-29-2013 Pacer Clinic Pacer Clinic [facility] Work Phone: Start: 02-17-2013 End: 12-29-2013 Follow Up Appt 3 months Follow Up Appt 3 months [facility] Work Phone: Start: 02-17-2013 End: 12-29-2013 Pacer Clinic Pacer Clinic [facility] Work Phone: Start: 02-17-2013 End: 12-29-2013 Follow Up Appt 3 months Follow Up Appt 3 months [facility] Work Phone: Start: 02-17-2013 End: 12-29-2013 Pacer Clinic Pacer Clinic [facility] Work Phone: Start: 10-13-2012 End: 10-13-2012 Follow Up Appt 6 months Follow Up Appt 6 months [facility] Work Phone: Start: 10-13-2012 End: 10-13-2012 Follow Up Appt 6 months Follow Up Appt 6 months [facility] Work Phone: Start: 04-20-2012 End: 04-28-2012 *BMP *BMP [facility] Work Phone: Start: 04-20-2012 End: 04-28-2012 *CBC with Differential *CBC with Differential [facility] Work Phone: Start: 04-20-2012 End: 09-22-2012 *Hepatic Function Panel *Hepatic Function Panel [facility] Work Phone: Start: 04-20-2012 End: 04-20-2012 Follow Up Appt 6 months Follow Up Appt 6 months [facility] Work Phone: Start: 04-20-2012 End: 10-13-2012 Lipid 1996 panel *Lipid Profile [facility] Work Phone: Start: 04-20-2012 End: 10-13-2012 Magnesium mass conc *Magnesium [facility] Work Phone: Start: 04-20-2012 End: 04-28-2012 *BMP *BMP [facility] Work Phone: Start: 04-20-2012 End: 04-28-2012 *CBC with Differential *CBC with Differential [facility] Work Phone: Start: 04-20-2012 End: 09-22-2012 *Hepatic Function Panel *Hepatic Function Panel [facility] Work Phone: Start: 04-20-2012 End: 04-20-2012 Follow Up Appt 6 months Follow Up Appt 6 months [facility] Work Phone: Start: 04-20-2012 End: 10-13-2012 Lipid panel [AGGREGATE] *Lipid Profile [facility] Work Phone: Start: 04-20-2012 End: 10-13-2012 Magnesium *Magnesium [facility] Work Phone: Patient Education HEART%20HEALTHY%20DIET [facility] Work Phone: Payers Date Payer Category Payer Unknown [id number] Unknown Social History Date Type Detail Facility [facility] Tobacco smoking consumption unknown [facility] Clinical Note 04-10-2021 Note Date & Type Note Facility 04-10-2021 Note Patient Outreach ([place] [facility]) FRANCIS MORTON ([id number]) 1955 M Date Time Provider Department 04/10/21 [...] tests Date Reviewed: 09/04/2020 Reviewed by: Ngozi ([facility] [address]) AINSLEY Patrick - Fully Assessed Visit Diagnoses:Medication management [Z79.899] Hyperlipidemia LDL goal <100 [E78.5] Order(s):BASIC METABOLIC PNL [SQBMP] Order #: [id number] FUTURE LIPID PANEL BASIC [SQLIPB] Order #: [id number] FUTURE TSH BLD [SQTSH] Order #: [id number] FUTURE CBC [SQCBC] Order #: [id number] FUTURE AST/SGOT BLD [SQAST] Order #: [id number] FUTURE ALT/SGPT [SQALT] Order #: [id number] FUTURE MAGNESIUM BLD [SQMG1] Order #: [id number] FUTURE Prescriptions as of 04/10/2021 Sig: MELOXICAM [...] abuse [F10.10] 10/16/2012 06/23/2013 Alcoholism /alcohol abuse [DIV8695] 06/23/2013 Tobacco abuse [Z72.0] 10/31/2014 Paroxysmal atrial fibrillation (HCC) [I48.0] 11/13/2017 Hyperlipidemia LDL goal <100 [E78.5] 11/13/2017 Physical debility [R53.81] 12/17/2019 Situational depression [F43.21] 12/17/2019 Generalized anxiety disorder with panic attacks*09/04/2020 Dysfunctional grieving [F43.21] 09/04/2020 Encounter Status:Closed by JANNETH CHACON on 04/13/21 [facility] Summary Purpose Family History No Family [...] DATE CREATED AUTHOR AUTHOR'S ORGANIZ ATION 12/18/2021 [facility] DATE CREATED AUTHOR AUTHOR'S ORGANIZ ATION 05/15/2022 [facility] <item><item> Privacy Markings (unrecogniz ed section [...] BE BASED ON THE PRIMARY CLINICAL RECORDS. [facility] [employer] [facility]. provides no warranty or guarantee of the accuracy or completeness of information in this document.
[2023-11-04 07:14] LABS: Absolute Lymphocyte Count 2.39 X10^3/uL (0.83-4.51); Absolute Neutrophil Count 5.1 X10^3/uL (2.0-7.7); Basophil# 0.04 X10^3/uL; Basophil% 0.4 % (0-1); Eosinophil# 0.72 X10^3/uL; Hematocrit 38.5 % (40-54); Lymphocyte # 2.39 X10^3/ul (0.83-4.51); Lymphocyte % 26.4 % (19-41); Mean Corp Hgb Conc 33.8 g/dL (32-36); Mean Corpuscular Hgb 32.9 pg (27.0-32.0); Mean Corpuscular Volume 97.5 fL (80-94); Mean Platelet Vol. 11.1 fl (6.2-12.0); Monocyte# 0.78 X10^3/uL; Monocyte% 8.6 % (0-10); NRBC Flagged by Analyzer 0 % (0-5); Neutrophil # 5.08 X10^3/uL (2.7-7.7); Neutrophil % 56.3 % (47-70); Platelet Count 213 K/mm3 (150-450); RBC Distribution Width SD 50.5 fl (35.1-43.9); Red Blood Count 3.95 M/mm3 (4.6-6.2)
[2023-11-04 07:33] LABS: ALB/GLOB Ratio 0.7 RATIO (0.9-2.4); AST(SGOT) 69 U/L (15-37); Alanine Aminotransfer ALT/SGPT 70 U/L (16-61); Albumin, Serum 2.8 g/dL (3.2-5.0); Alkaline Phosphatase 100 U/L (45-117); Anion Gap 5 (5-15); BUN 16 mg/dL (7-18); BUN/Creat Ratio 26.4 RATIO (10-20); Calcium,Total 8.8 mg/dL (8.5-10.1); Chloride 101 mmol/L (98-107); Creatinine, Serum 0.61 mg/dL (0.70-1.30); EST Glomerular Filtration Rate 141 mL/min (>60); Est Glom Filt Rate - Afr Amer 170 mL/min (>60); Globulin 3.8 g/dL (2.2-4.2); Glucose 104 mg/dL (74-106); Potassium 4.4 mmol/L (3.5-5.1); Protein, Total 6.6 g/dL (6.4-8.2); Sodium Level 132 mmol/L (136-145)
== END ==
LOC: OLS.WHLEAS 04:00
PROVIDERS: PCP Internal Medicine; Referring Provider Internal Medicine; Visit Provider Internal Medicine
DX: K70.10 Alcoholic hepatitis without ascites (principal); L97.512 Non-pressure chronic ulcer of other part of right foot with fat layer exposed; L03.115 Cellulitis of right lower limb; M62.561 Muscle wasting and atrophy, not elsewhere classified, right lower leg
CPT/HCPCS: 36415; 80053; 82140; 85025

== ENCOUNTER → 2023-11-11 | Outpatient (REF) | payer MEDICARE, MEDICAID, SELFPAY ==
[2023-09-01 14:43] VITALS: BMI 29.2
[2023-11-11 08:54] LABS: Absolute Neutrophil Count 10.3 X10^3/uL (2.0-7.7); Basophil# 0.04 X10^3/uL; Basophil% 0.3 % (0-1); Eosinophil# 0.27 X10^3/uL; Hematocrit 38.7 % (40-54); Hemoglobin 13.3 g/dL (13.0-16.5); Lymphocyte % 12.9 % (19-41); Mean Corp Hgb Conc 34.4 g/dL (32-36); Mean Corpuscular Hgb 33.2 pg (27.0-32.0); Mean Corpuscular Volume 96.5 fL (80-94); Mean Platelet Vol. 11.8 fl (6.2-12.0); Monocyte# 0.87 X10^3/uL; Monocyte% 6.6 % (0-10); NRBC Flagged by Analyzer 0 % (0-5); Neutrophil # 10.26 X10^3/uL (2.7-7.7); Neutrophil % 77.8 % (47-70); Platelet Count 285 K/mm3 (150-450); RBC Distribution Width CV 14.5 % (11.6-14.6); RBC Distribution Width SD 51.5 fl (35.1-43.9); Red Blood Count 4.01 M/mm3 (4.6-6.2); White Blood Count 13.2 K/mm3 (4.4-11.0)
[2023-11-11 09:18] LABS: ALB/GLOB Ratio 0.8 RATIO (0.9-2.4); AST(SGOT) 53 U/L (15-37); Alanine Aminotransfer ALT/SGPT 46 U/L (16-61); Albumin, Serum 2.9 g/dL (3.2-5.0); Alkaline Phosphatase 106 U/L (45-117); Anion Gap 8 (5-15); BUN 11 mg/dL (7-18); BUN/Creat Ratio 19.7 RATIO (10-20); Calcium,Total 8.9 mg/dL (8.5-10.1); Chloride 102 mmol/L (98-107); Creatinine, Serum 0.56 mg/dL (0.70-1.30); EST Glomerular Filtration Rate 155 mL/min (>60); Est Glom Filt Rate - Afr Amer 188 mL/min (>60); Globulin 3.8 g/dL (2.2-4.2); Glucose 110 mg/dL (74-106); Potassium 4.1 mmol/L (3.5-5.1); Protein, Total 6.7 g/dL (6.4-8.2); Sodium Level 133 mmol/L (136-145)
== END ==
LOC: OLS.WHLEAS 05:00
PROVIDERS: PCP Internal Medicine; Visit Provider Internal Medicine
DX: K70.10 Alcoholic hepatitis without ascites (principal); L97.512 Non-pressure chronic ulcer of other part of right foot with fat layer exposed; L03.115 Cellulitis of right lower limb
CPT/HCPCS: 36415; 80053; 82140; 85025

== ENCOUNTER → 2023-11-18 | Outpatient (REF) | payer MEDICARE, MEDICAID, SELFPAY ==
[2023-09-01 14:43] VITALS: BMI 29.2
[2023-11-18 09:19] LABS: Absolute Lymphocyte Count 2.47 X10^3/uL (0.83-4.51); Absolute Neutrophil Count 8.5 X10^3/uL (2.0-7.7); Basophil# 0.05 X10^3/uL; Basophil% 0.4 % (0-1); Eosinophil# 0.36 X10^3/uL; Eosinophils% 2.9 % (0-5); Hematocrit 38.9 % (40-54); Hemoglobin 13.4 g/dL (13.0-16.5); Lymphocyte # 2.47 X10^3/ul (0.83-4.51); Lymphocyte % 19.7 % (19-41); Mean Corp Hgb Conc 34.4 g/dL (32-36); Mean Corpuscular Hgb 33.2 pg (27.0-32.0); Mean Corpuscular Volume 96.3 fL (80-94); Mean Platelet Vol. 10.8 fl (6.2-12.0); Monocyte# 1.04 X10^3/uL; Monocyte% 8.3 % (0-10); NRBC Flagged by Analyzer 0 % (0-5); Neutrophil # 8.52 X10^3/uL (2.7-7.7); Neutrophil % 68.1 % (47-70); Platelet Count 342 K/mm3 (150-450); RBC Distribution Width CV 14.2 % (11.6-14.6); RBC Distribution Width SD 49.8 fl (35.1-43.9); Red Blood Count 4.04 M/mm3 (4.6-6.2); White Blood Count 12.5 K/mm3 (4.4-11.0)
[2023-11-18 09:38] LABS: ALB/GLOB Ratio 0.7 RATIO (0.9-2.4); AST(SGOT) 74 U/L (15-37); Alanine Aminotransfer ALT/SGPT 55 U/L (16-61); Albumin, Serum 2.9 g/dL (3.2-5.0); Alkaline Phosphatase 127 U/L (45-117); Anion Gap 7 (5-15); BUN 16 mg/dL (7-18); BUN/Creat Ratio 25.3 RATIO (10-20); Calcium,Total 9.4 mg/dL (8.5-10.1); Chloride 101 mmol/L (98-107); Creatinine, Serum 0.63 mg/dL (0.70-1.30); EST Glomerular Filtration Rate 134 mL/min (>60); Est Glom Filt Rate - Afr Amer 162 mL/min (>60); Globulin 3.9 g/dL (2.2-4.2); Glucose 110 mg/dL (74-106); Potassium 4.4 mmol/L (3.5-5.1); Protein, Total 6.8 g/dL (6.4-8.2); Sodium Level 133 mmol/L (136-145)
== END ==
LOC: OLS.WHLEAS 05:00
PROVIDERS: PCP Internal Medicine; Visit Provider Internal Medicine
DX: K70.10 Alcoholic hepatitis without ascites (principal); L97.512 Non-pressure chronic ulcer of other part of right foot with fat layer exposed; L03.115 Cellulitis of right lower limb; M62.561 Muscle wasting and atrophy, not elsewhere classified, right lower leg
CPT/HCPCS: 36415; 80053; 82140; 85025

== ENCOUNTER → 2023-11-25 | Outpatient (REF) | payer MEDICARE, MEDICAID, SELFPAY ==
[2023-09-01 14:43] VITALS: BMI 29.2
--- OUTSIDE RECORDS SUMMARY | 2023-11-25 04:31 | XMS RPT_ITS | CCD ---
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'S Tennis Coach Name Role Phone MD Naga, Luis Augustin [...] Hmg-Coa Reductase Inhibitors (Statins) Drug Allergy Unknown [facility] (7 sources) ezetimibe drug allergy 04-23-2017 myalgia's [facility] Work Phone: (12 sources) Hmg-Coa Reductase Inhibitors (Statins) drug allergy 01-13-2014 Elevated Liver Enzymes [facility] Work Phone: (12 sources) iodine drug allergy 05-24-2011 Rash [facility] [facility] Work Phone: Medications Current Medications Medication Drug [...] tablet by mouth twice daily AMLODIPINE BESYLATE [id number] Luis Martin MD Problems Active Problems Problem Classification Problem Date Documented Date Episodic/Chronic Cardiac dysrhythmias (20 sources) Ventricular tachycardia; Translations: [Premature beats] Onset: 05-24-2011 05-24-2011 Chronic Coronary atherosclerosis and other heart disease (20 sources) Atherosclerotic heart disease of [place] coronary artery without angina pectoris; Translations: [Coronary [...] 05-24-2011 Episodic Other aftercare (14 sources) Other long filler cigar roller machine (current) drug therapy; Translations: [Other assisted (current) drug therapy] Onset: 05-24-2011 05-24-2011 Episodic Other nutritional; endocrine; and metabolic disorders (12 sources) Body mass index (BMI) 27.0-27.9, adult; Translations: [Body mass index (BMI) 27.0-27.9, adult] Onset: 01-23-2017 01-23-2017 Episodic Results Test Name Value Interpretation Reference Range Facil ity Vital Signs Date Time Vital Sign Value Performing Clinician Facility 05-27-2021 14:37-0400 Diastolic blood pressure 68 mm[Hg] Shay Cebul Other Phone: [facility] 05-27-2021 14:37-0400 Heart rate 73 /min Shay Cebul Other Phone: [facility] 05-27-2021 14:37-0400 Respiratory rate 18 /min Shay Cebul Other Phone: [facility] 05-27-2021 14:37-0400 Systolic blood pressure 124 mm[Hg] Shay Cebul Other Phone: [facility] 05-27-2021 13:30-0400 SaO2% (BldA) [Mass fraction] 97 % Shay Cebul Other Phone: [facility] 05-27-2021 12:08-0400 Body height 187.9 cm Shay Cebul Other Phone: [facility] 05-27-2021 12:08-0400 Body temperature 99.14 [degF] Shay Cebul Other Phone: [facility] 05-27-2021 12:08-0400 Body weight 90.9 kg Shay Cebul Other Phone: [facility] 05-24-2021 05:30-0400 Diastolic blood pressure 78 mm[Hg] Shay Cebul Other Phone: [facility] 05-24-2021 05:30-0400 Heart rate 90 /min Shay Cebul Other Phone: [facility] 05-24-2021 05:30-0400 Respiratory rate 18 /min Shay Cebul Other Phone: [facility] 05-24-2021 05:30-0400 SaO2% (BldA) [Mass fraction] 95 % Shay Cebul Other Phone: [facility] 05-24-2021 05:30-0400 Systolic blood pressure 130 mm[Hg] Shay Cebul Other Phone: [facility] 08-05-2017 15:22-0400 BMI (Body Mass Index) 27.47 [...] 15:22-0400 Weight 97.07 kg Angela Hernandez RN [facility] Work Phone: 01-23-2017 14:36-0400 Heart [...] 15:42-0400 Heart rate 412 ms Brandi Hope [facility] Work Phone: Encounters Encounter Date Encounter Type Care Provider Facility Start: 03-04-2022 Chart Update Shay Del Rosario Work Phone: [facility] Work Phone: Start: 02-14-2022 Chart Update Shay Del Rosario Work Phone: [facility] Work Phone: Start: 05-27-2021 End: 05-27-2021 Emergency department patient visit Cy Watkinstelma [facility] Emergency 16 Start: 05-24-2021 End: 05-24-2021 Emergency department patient visit Tommy Horn [facility] Emergency 16 Start: 11-08-2017 End: 11-11-2017 Evaluation [...] End: 03-13-2017 Follow Up Appt 6 months Lius Martin MD Work Phone: Start: 01-23-2017 End: [...] PA-C Work Phone: Start: 09-27-2014 End: 01-04-2015 [facility] Dayanna Mercedes PA-C Work Phone: Start: 09-27-2014 End: 09-27-2014 Prgrmng dev eval implantable in persn 1 ld dfb Dayanna Mercedes PA-C Work Phone: Start: 09-27-2014 End: 01-04-2015 Follow Up Appt 3 months Dayanna fernández PA-C Work Phone: Start: 09-27-2014 End: 09-27-2014 Icd device prog eval, 1 sngl Dayanna Mercedes PA-C Work Phone: Start: 09-27-2014 End: 01-04-2015 [facility] Dayanna Mercedes PA-C Work Phone: Start: 06-01-2014 End: 01-04-2015 Follow Up Appt 3 months Dayanna fernández PA-C Work Phone: Start: 06-01-2014 End: 01-04-2015 [facility] Dayanna Mercedes PA-C Work Phone: Start: [...] End: 01-12-2013 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 eval remote 90 d 1/2/elastic tape inserter ld dfmanda Ramos MD Start: 01-12-2013 End: [...] End: 04-28-2012 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 eval remote 90 d 1/2/elastic tape inserter ld dfb Yevgeniy Ramos MD Start: 04-20-2012 [...] Author Start: 02-12-2018 End: 02-12-2018 Appointment Appointment [facility] Work Phone: Start: 09-16-2017 End: 08-05-2017 *Hepatic Function Panel *Hepatic Function Panel [facility] Work Phone: Start: 09-16-2017 End: 08-05-2017 Lipid 1996 panel *Lipid Profile CC PCP [facility] Work Phone: Start: 08-26-2017 End: 08-26-2017 Appointment Appointment [facility] Work Phone: Start: 08-05-2017 End: 08-05-2017 Appointment Appointment [facility] Work Phone: Start: 08-05-2017 End: 08-05-2017 GERALD DUARTE [facility] Work Phone: Start: 08-05-2017 End: 08-05-2017 Follow Up Appt 6 months Follow Up Appt 6 months [facility] Work Phone: Start: 08-05-2017 End: 08-05-2017 Follow Up BP Check Follow Up BP Check [facility] Work Phone: Start: 08-05-2017 End: 08-05-2017 Pacer Clinic [facility] Work Phone: Start: 07-28-2017 End: 07-28-2017 Appointment Appointment [facility] Work Phone: Start: 07-28-2017 End: 07-28-2017 Appointment Appointment [facility] Work Phone: Start: 07-08-2017 End: 07-28-2017 *Hepatic Function Panel *Hepatic Function Panel [facility] Work Phone: Start: 07-08-2017 End: 07-28-2017 Lipid 1996 panel *Lipid Profile CC PCP [facility] Work Phone: Start: 07-08-2017 End: 07-28-2017 *Hepatic Function Panel *Hepatic Function Panel [facility] Work Phone: Start: 07-08-2017 End: 07-28-2017 Lipid panel [AGGREGATE] *Lipid Profile CC PCP [facility] Work Phone: Start: 03-10-2017 End: 04-03-2017 *Hepatic Function Panel *Hepatic Function Panel [facility] Work Phone: Start: 03-10-2017 End: 04-03-2017 Lipid 1996 panel *Lipid Profile CC PCP [facility] Work Phone: Start: 03-10-2017 End: 04-03-2017 *Hepatic Function Panel *Hepatic Function Panel [facility] Work Phone: Start: 03-10-2017 End: 04-03-2017 Lipid panel [AGGREGATE] *Lipid Profile CC PCP [facility] Work Phone: Start: 01-23-2017 End: 01-23-2017 GERALD DUARTE [facility] Work Phone: Start: 01-23-2017 End: 01-23-2017 Ecg routine ecg w/least 12 lds w/i&r EKG (In office) [facility] Work Phone: Start: 01-23-2017 End: 01-23-2017 Echocardiography Echocardiogram (complete) [facility] Work Phone: Start: 01-23-2017 End: 03-13-2017 Follow Up Appt 6 months Follow Up Appt 6 months [facility] Work Phone: Start: 01-23-2017 End: 01-23-2017 Follow Up BP Check Follow Up BP Check [facility] Work Phone: Start: 01-23-2017 End: 03-13-2017 Pac[facility] Clinic [facility] Work Phone: Start: 01-23-2017 End: 01-23-2017 GERALD DUARTE [facility] Work Phone: Start: 01-23-2017 End: 03-13-2017 Echocardiography Echocardiogram (complete) [facility] Work Phone: Start: 01-23-2017 End: 01-23-2017 Electrocardiogram, complete EKG (In office) [facility] Work Phone: Start: 01-23-2017 End: 03-13-2017 Follow Up Appt 6 months Follow Up Appt 6 months [facility] Work Phone: Start: 01-23-2017 End: 01-23-2017 Follow Up BP Check Follow Up BP Check [facility] Work Phone: Start: 01-23-2017 End: 03-13-2017 Pacer Clinic [facility] Clinic [facility] Work Phone: Start: 12-16-2016 End: 01-22-2017 *Hepatic Function Panel *Hepatic Function Panel [facility] Work Phone: Start: 12-16-2016 End: 01-22-2017 Lipid 1996 panel *Lipid Profile CC PCP [facility] Work Phone: Start: 12-16-2016 End: 01-22-2017 *Hepatic Function Panel *Hepatic Function Panel [facility] Work Phone: Start: 12-16-2016 End: 01-22-2017 Lipid panel [AGGREGATE] *Lipid Profile CC PCP [facility] Work Phone: Start: 11-27-2015 End: 12-16-2016 *Hepatic Function Panel *Hepatic Function Panel [facility] Work Phone: Start: 11-27-2015 End: 12-16-2016 Lipid 1996 panel *Lipid Profile CC PCP [facility] Work Phone: Start: 11-27-2015 End: 12-16-2016 *Hepatic Function Panel *Hepatic Function Panel [facility] Work Phone: Start: 11-27-2015 End: 12-16-2016 Lipid panel [AGGREGATE] *Lipid Profile CC PCP [facility] Work Phone: Start: 01-09-2015 End: [...] 01-09-2015 End: 02-16-2015 Pacer Clinic Pac[facility] Clinic [facility] Work Phone: Start: 09-27-2014 End: 01-04-2015 Follow Up Appt 3 months Follow Up Appt 3 months [facility] Work Phone: Start: 09-27-2014 End: 01-04-2015 Pacer Clinic [facility] Clinic [facility] Work Phone: Start: 09-27-2014 End: 01-04-2015 Follow Up Appt 3 months Follow Up Appt 3 months [facility] Work Phone: Start: 09-27-2014 End: 01-04-2015 Pacer Clinic [facility] Clinic [facility] Work Phone: Start: 06-01-2014 End: 01-04-2015 Follow Up Appt 3 months Follow Up Appt 3 months [facility] Work Phone: Start: 06-01-2014 End: 01-04-2015 Pacer Clinic [facility] Clinic [facility] Work Phone: Start: 06-01-2014 End: 01-04-2015 Follow Up Appt 3 months Follow Up Appt 3 months [facility] Work Phone: Start: 06-01-2014 End: 01-04-2015 Pacer Clinic [facility] Clinic [facility] Work Phone: Start: 01-13-2014 End: 03-07-2014 *Hepatic Function Panel *Hepatic Function Panel [facility] Work Phone: Start: 01-13-2014 End: 01-13-2014 DJN DJN [facility] Work Phone: Start: 01-13-2014 End: 01-13-2014 Follow Up Appt 1 year Follow Up Appt 1 year [facility] Work Phone: Start: 01-13-2014 End: 01-13-2014 Follow Up Appt 3 months Follow Up Appt 3 months [facility] Work Phone: Start: 01-13-2014 [...] 1 year Follow Up Appt 1 year [facility] Work Phone: Start: 01-13-2014 End: [...] PCP [facility] Work Phone: Start: 12-02-2013 [...] Lipid panel [AGGREGATE] *Lipid Profile CC PCP [facility] Work Phone: Start: 05-21-2013 End: 12-29-2013 Follow Up Appt 3 months Follow Up Appt 3 months [facility] Work Phone: Start: 05-21-2013 End: 12-29-2013 Pacer Clinic Pacer Clinic [facility] Work Phone: Start: 05-21-2013 End: 12-29-2013 Follow Up Appt 3 months Follow Up Appt 3 months [facility] Work Phone: Start: 05-21-2013 End: 12-29-2013 Pacer Clinic Pacer Clinic [facility] Work Phone: Start: 02-17-2013 End: 12-29-2013 Follow Up Appt 3 months Follow Up Appt 3 months [facility] Work Phone: Start: 02-17-2013 End: 12-29-2013 Pacer Clinic Pacer Clinic [facility] Work Phone: Start: 02-17-2013 End: 12-29-2013 Follow Up Appt 3 months Follow Up Appt 3 months [facility] Work Phone: Start: 02-17-2013 End: 12-29-2013 Pacer Clinic Pacer Clinic [facility] Work Phone: Start: 10-13-2012 End: 10-13-2012 Follow Up Appt 6 months Follow Up Appt 6 months [facility] Work Phone: Start: 10-13-2012 End: 10-13-2012 Follow Up Appt 6 months Follow Up Appt 6 months [facility] Work Phone: Start: 04-20-2012 End: 04-28-2012 *BMP *BMP [facility] Work Phone: Start: 04-20-2012 End: 04-28-2012 *CBC with Differential *CBC with Differential [facility] Work Phone: Start: 04-20-2012 End: 09-22-2012 *Hepatic Function Panel *Hepatic Function Panel [facility] Work Phone: Start: 04-20-2012 End: 04-20-2012 Follow Up Appt 6 months Follow Up Appt 6 months [facility] Work Phone: Start: 04-20-2012 End: 10-13-2012 Lipid 1996 panel *Lipid Profile [facility] Work Phone: Start: 04-20-2012 End: 10-13-2012 Magnesium mass conc *Magnesium [facility] Work Phone: Start: 04-20-2012 End: 04-28-2012 *BMP *BMP [facility] Work Phone: Start: 04-20-2012 End: 04-28-2012 *CBC with Differential *CBC with Differential [facility] Work Phone: Start: 04-20-2012 End: 09-22-2012 *Hepatic Function Panel *Hepatic Function Panel [facility] Work Phone: Start: 04-20-2012 End: 04-20-2012 Follow Up Appt 6 months Follow Up Appt 6 months [facility] Work Phone: Start: 04-20-2012 End: 10-13-2012 Lipid panel [AGGREGATE] *Lipid Profile [facility] Work Phone: Start: 04-20-2012 End: 10-13-2012 Magnesium *Magnesium [facility] Work Phone: Patient Education [email or web address] [facility] Work Phone: Payers Date Payer Category Payer Unknown [id number] Unknown Social History Date Type Detail Facility [facility] Tobacco smoking consumption unknown [facility] Clinical Note 04-10-2021 Note Date & Type Note Facility 04-10-2021 Note Patient Outreach ([facility]) FRANCIS MORTON ([id number]) 1955 M Date Time Provider Department 04/10/21 [...] tests Date Reviewed: 09/04/2020 Reviewed by: Ngozi ([facility]) AINSLEY Patrick - Fully Assessed Visit Diagnoses:Medication management [Z79.899] Hyperlipidemia LDL goal <100 [E78.5] Order(s):BASIC METABOLIC PNL [SQBMP] Order #: [id number] FUTURE LIPID PANEL BASIC [SQLIPB] Order #: [id number] FUTURE TSH BLD [SQTSH] Order #: [id number] FUTURE CBC [SQCBC] Order #: [id number] FUTURE AST/SGOT BLD [SQAST] Order #: [id number] FUTURE ALT/SGPT [SQALT] Order #: [id number] FUTURE MAGNESIUM BLD [SQMG1] Order #: [id number] FUTURE Prescriptions as of 04/10/2021 Sig: MELOXICAM [...] TABLET Take 2.5 mg by mouth once consuleo* LORAZEPAM 0.5 MG TABLET Take by mouth [...] abuse [F10.10] 10/16/2012 06/23/2013 Alcoholism /alcohol abuse [FQK1369] 06/23/2013 Tobacco abuse [Z72.0] 10/31/2014 Paroxysmal atrial fibrillation (HCC) [I48.0] 11/13/2017 Hyperlipidemia LDL goal <100 [E78.5] 11/13/2017 Physical debility [R53.81] 12/17/2019 Situational depression [F43.21] 12/17/2019 Generalized anxiety disorder with panic attacks*09/04/2020 Dysfunctional 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 [facility] [employer] [facility]. provides no warranty or guarantee of the accuracy or completeness of information in this document.
[2023-11-25 09:15] LABS: Absolute Lymphocyte Count 1.56 X10^3/uL (0.83-4.51); Absolute Neutrophil Count 8.8 X10^3/uL (2.0-7.7); Basophil# 0.04 X10^3/uL; Basophil% 0.3 % (0-1); Eosinophil# 0.31 X10^3/uL; Eosinophils% 2.7 % (0-5); Hematocrit 37.8 % (40-54); Hemoglobin 12.8 g/dL (13.0-16.5); Lymphocyte # 1.56 X10^3/ul (0.83-4.51); Lymphocyte % 13.6 % (19-41); Mean Corp Hgb Conc 33.9 g/dL (32-36); Mean Corpuscular Hgb 32.4 pg (27.0-32.0); Mean Corpuscular Volume 95.7 fL (80-94); Mean Platelet Vol. 10.6 fl (6.2-12.0); Monocyte# 0.74 X10^3/uL; Monocyte% 6.4 % (0-10); NRBC Flagged by Analyzer 0 % (0-5); Neutrophil % 76.6 % (47-70); Platelet Count 324 K/mm3 (150-450); RBC Distribution Width CV 14.2 % (11.6-14.6); RBC Distribution Width SD 49.1 fl (35.1-43.9); Red Blood Count 3.95 M/mm3 (4.6-6.2); White Blood Count 11.5 K/mm3 (4.4-11.0)
[2023-11-25 09:35] LABS: ALB/GLOB Ratio 0.7 RATIO (0.9-2.4); AST(SGOT) 100 U/L (15-37); Alanine Aminotransfer ALT/SGPT 64 U/L (16-61); Albumin, Serum 2.6 g/dL (3.2-5.0); Alkaline Phosphatase 134 U/L (45-117); Anion Gap 3 (5-15); BUN 14 mg/dL (7-18); BUN/Creat Ratio 25.1 RATIO (10-20); Calcium,Total 8.9 mg/dL (8.5-10.1); Chloride 102 mmol/L (98-107); Creatinine, Serum 0.56 mg/dL (0.70-1.30); EST Glomerular Filtration Rate 155 mL/min (>60); Est Glom Filt Rate - Afr Amer 188 mL/min (>60); Globulin 3.5 g/dL (2.2-4.2); Glucose 104 mg/dL (74-106); Potassium 3.7 mmol/L (3.5-5.1); Protein, Total 6.1 g/dL (6.4-8.2); Sodium Level 133 mmol/L (136-145)
== END ==
LOC: OLS.WHLEAS 05:00
PROVIDERS: PCP Internal Medicine; Visit Provider Internal Medicine
DX: K70.10 Alcoholic hepatitis without ascites (principal); I10 Essential (primary) hypertension; L97.512 Non-pressure chronic ulcer of other part of right foot with fat layer exposed; L03.115 Cellulitis of right lower limb; J44.9 Chronic obstructive pulmonary disease, unspecified
CPT/HCPCS: 36415; 80053; 82140; 85025

== ENCOUNTER → 2023-12-02 | Outpatient (REF) | payer MEDICARE, MEDICAID, SELFPAY ==
[2023-09-01 14:43] VITALS: BMI 29.2
--- OUTSIDE RECORDS SUMMARY | 2023-12-02 06:28 | XMS RPT_ITS | CCD ---
Author Name Unknown Address [address] [place] [address] Organization [facility] Care Team Providers Care Plastics Scientist Name Role Phone MD Naga, Luis Augustin [...] Hmg-Coa Reductase Inhibitors (Statins) Drug Allergy Unknown [facility] (7 sources) ezetimibe drug allergy 04-23-2017 myalgia's [facility] Work Phone: (12 sources) Hmg-Coa Reductase Inhibitors (Statins) drug allergy 01-13-2014 Elevated Liver Enzymes [facility] Work Phone: (12 sources) iodine drug allergy 05-24-2011 Rash [email or web address] Work Phone: Medications Current Medications Medication Drug [...] tablet by mouth twice daily AMLODIPINE BESYLATE [id number] Luis Martin MD Problems Active Problems Problem Classification Problem Date Documented Date Episodic/Chronic Cardiac dysrhythmias (20 sources) Ventricular tachycardia; Translations: [Premature beats] Onset: 05-24-2011 05-24-2011 Chronic Coronary atherosclerosis and other heart disease (20 sources) 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; Translations: [Coronary [...] 05-24-2011 Episodic Other aftercare (14 sources) 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; Translations: [Other custodial (current) drug therapy] Onset: 05-24-2011 05-24-2011 Episodic Other nutritional; endocrine; and metabolic disorders (12 sources) Body mass index (BMI) 27.0-27.9, adult; Translations: [Body mass index (BMI) 27.0-27.9, adult] Onset: 01-23-2017 01-23-2017 Episodic Results Test Name Value Interpretation Reference Range Facil ity Vital Signs Date Time Vital Sign Value Performing Clinician Facility 05-27-2021 14:37-0400 Diastolic blood pressure 68 mm[Hg] Shay Cebul Other Phone: [facility] 05-27-2021 14:37-0400 Heart rate 73 /min Shay Cebul Other Phone: [facility] 05-27-2021 14:37-0400 Respiratory rate 18 /min Shay Cebul Other Phone: [facility] 05-27-2021 14:37-0400 Systolic blood pressure 124 mm[Hg] Shay Cebul Other Phone: [facility] 05-27-2021 13:30-0400 SaO2% (BldA) [Mass fraction] 97 % Shay Cebul Other Phone: [facility] 05-27-2021 12:08-0400 Body height 187.9 cm Shay Cebul Other Phone: [facility] 05-27-2021 12:08-0400 Body temperature 99.14 [degF] Shay Cebul Other Phone: [facility] 05-27-2021 12:08-0400 Body weight 90.9 kg Shay Cebul Other Phone: [facility] 05-24-2021 05:30-0400 Diastolic blood pressure 78 mm[Hg] Shay Cebul Other Phone: [facility] 05-24-2021 05:30-0400 Heart rate 90 /min Shay Cebul Other Phone: [facility] 05-24-2021 05:30-0400 Respiratory rate 18 /min Shay Cebul Other Phone: [facility] 05-24-2021 05:30-0400 SaO2% (BldA) [Mass fraction] 95 % Shay Cebul Other Phone: [facility] 05-24-2021 05:30-0400 Systolic blood pressure 130 mm[Hg] Shay Cebul Other Phone: [facility] 08-05-2017 15:22-0400 BMI (Body Mass Index) [...] 15:22-0400 Weight 97.07 kg Angela Hernandez RN [facility] Work Phone: 01-23-2017 14:36-0400 Heart [...] Chart Update Shay Del Rosario Work Phone: [facility] [facility] Work Phone: Start: 02-14-2022 Chart Update Shay Del Rosario Work Phone: [facility] [facility] Work Phone: Start: 05-27-2021 End: 05-27-2021 Emergency department patient visit Cy Watkinstelma [facility] Emergency 16 Start: 05-24-2021 End: 05-24-2021 Emergency department patient visit Tommy Horn [facility] Emergency 16 Start: 11-08-2017 End: 11-11-2017 [...] 07-08-2017 End: 08-04-2017 Lipid panel [AGGREGATE] Luis aMrtin MD Work Phone: Start: 03-10-2017 End: 04-03-2017 [...] PA-C Work Phone: Start: 09-27-2014 End: 01-04-2015 [facility] Dayanna Mercedes PA-C Work Phone: Start: 09-27-2014 End: 09-27-2014 Prgrmng dev eval implantable in persn 1 ld dfb Dayanna Mercedes PA-C Work Phone: Start: 09-27-2014 End: 01-04-2015 Follow Up Appt 3 months Dayanna fernández PA-C Work Phone: Start: 09-27-2014 End: 09-27-2014 Icd device prog eval, 1 sngl Dayanna Mercedes PA-C Work Phone: Start: 09-27-2014 End: 01-04-2015 [facility] Dayanna Mercedes PA-C Work Phone: Start: 06-01-2014 End: 01-04-2015 Follow Up Appt 3 months Dayanna fernández PA-C Work Phone: Start: 06-01-2014 End: 01-04-2015 [facility] Dayanna Mercedes PA-C Work Phone: Start: [...] End: 01-12-2013 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 eval remote 90 d 1/2/saw man ld dfmanda Ramos MD Start: 01-12-2013 End: [...] End: 04-28-2012 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 eval remote 90 d 1/2/saw man ld dfb Yevgeniy Ramos MD Start: 04-20-2012 [...] Author Start: 02-12-2018 End: 02-12-2018 Appointment Appointment [facility] Work Phone: Start: 09-16-2017 End: 08-05-2017 *Hepatic Function Panel *Hepatic Function Panel [facility] Work Phone: Start: 09-16-2017 End: 08-05-2017 Lipid 1996 panel *Lipid Profile CC PCP [facility] Work Phone: Start: 08-26-2017 End: 08-26-2017 Appointment Appointment [facility] Work Phone: Start: 08-05-2017 End: 08-05-2017 Appointment Appointment [facility] Work Phone: Start: 08-05-2017 End: 08-05-2017 GERALD DUARTE [facility] Work Phone: Start: 08-05-2017 End: 08-05-2017 Follow Up Appt 6 months Follow Up Appt 6 months [facility] Work Phone: Start: 08-05-2017 End: 08-05-2017 Follow Up BP Check Follow Up BP Check [facility] Work Phone: Start: 08-05-2017 End: 08-05-2017 Pacer Clinic [facility] Work Phone: Start: 07-28-2017 End: 07-28-2017 Appointment Appointment [facility] Work Phone: Start: 07-28-2017 End: 07-28-2017 Appointment Appointment [facility] Work Phone: Start: 07-08-2017 End: 07-28-2017 *Hepatic Function Panel *Hepatic Function Panel [facility] Work Phone: Start: 07-08-2017 End: 07-28-2017 Lipid 1996 panel *Lipid Profile CC PCP [facility] Work Phone: Start: 07-08-2017 End: 07-28-2017 *Hepatic Function Panel *Hepatic Function Panel [facility] Work Phone: Start: 07-08-2017 End: 07-28-2017 Lipid panel [AGGREGATE] *Lipid Profile CC PCP [facility] Work Phone: Start: 03-10-2017 End: 04-03-2017 *Hepatic Function Panel *Hepatic Function Panel [facility] Work Phone: Start: 03-10-2017 End: 04-03-2017 Lipid 1996 panel *Lipid Profile CC PCP [facility] Work Phone: Start: 03-10-2017 End: 04-03-2017 *Hepatic Function Panel *Hepatic Function Panel [facility] Work Phone: Start: 03-10-2017 End: 04-03-2017 Lipid panel [AGGREGATE] *Lipid Profile CC PCP [facility] Work Phone: Start: 01-23-2017 End: 01-23-2017 GERALD DUARTE [facility] Work Phone: Start: 01-23-2017 End: 01-23-2017 Ecg routine ecg w/least 12 lds w/i&r EKG (In office) [facility] Work Phone: Start: 01-23-2017 End: 01-23-2017 Echocardiography Echocardiogram (complete) [facility] Work Phone: Start: 01-23-2017 End: 03-13-2017 Follow Up Appt 6 months Follow Up Appt 6 months [facility] Work Phone: Start: 01-23-2017 End: 01-23-2017 Follow Up BP Check Follow Up BP Check [facility] Work Phone: Start: 01-23-2017 End: 03-13-2017 Pacer Clinic [facility] Work Phone: Start: 01-23-2017 End: 01-23-2017 GERALD DUARTE [facility] Work Phone: Start: 01-23-2017 End: 03-13-2017 Echocardiography Echocardiogram (complete) [facility] Work Phone: Start: 01-23-2017 End: 01-23-2017 Electrocardiogram, complete EKG (In office) [facility] Work Phone: Start: 01-23-2017 End: 03-13-2017 Follow Up Appt 6 months Follow Up Appt 6 months [facility] Work Phone: Start: 01-23-2017 End: 01-23-2017 Follow Up BP Check Follow Up BP Check [facility] Work Phone: Start: 01-23-2017 End: 03-13-2017 Pacer Clinic Pacer Clinic [facility] Work Phone: Start: 12-16-2016 End: 01-22-2017 *Hepatic Function Panel *Hepatic Function Panel [facility] Work Phone: Start: 12-16-2016 End: 01-22-2017 Lipid 1996 panel *Lipid Profile CC PCP [facility] Work Phone: Start: 12-16-2016 End: 01-22-2017 *Hepatic Function Panel *Hepatic Function Panel [facility] Work Phone: Start: 12-16-2016 End: 01-22-2017 Lipid panel [AGGREGATE] *Lipid Profile CC PCP [facility] Work Phone: Start: 11-27-2015 End: 12-16-2016 *Hepatic Function Panel *Hepatic Function Panel [facility] Work Phone: Start: 11-27-2015 End: 12-16-2016 Lipid 1996 panel *Lipid Profile CC PCP [facility] Work Phone: Start: 11-27-2015 End: 12-16-2016 *Hepatic Function Panel *Hepatic Function Panel [facility] Work Phone: Start: 11-27-2015 End: 12-16-2016 Lipid panel [AGGREGATE] *Lipid Profile CC PCP [facility] Work Phone: Start: 01-09-2015 End: [...] 01-09-2015 End: 02-16-2015 Pacer Clinic Pacer Clinic [facility] Work Phone: Start: 09-27-2014 End: 01-04-2015 Follow Up Appt 3 months Follow Up Appt 3 months [facility] Work Phone: Start: 09-27-2014 End: 01-04-2015 Pacer Clinic Pacer Clinic [facility] Work Phone: Start: 09-27-2014 End: 01-04-2015 Follow Up Appt 3 months Follow Up Appt 3 months [facility] Work Phone: Start: 09-27-2014 End: 01-04-2015 Pacer Clinic Pac[facility] Clinic [facility] Work Phone: Start: 06-01-2014 End: 01-04-2015 Follow Up Appt 3 months Follow Up Appt 3 months [facility] Work Phone: Start: 06-01-2014 End: 01-04-2015 Pacer Clinic Pac[facility] Clinic [facility] Work Phone: Start: 06-01-2014 End: 01-04-2015 Follow Up Appt 3 months Follow Up Appt 3 months [facility] Work Phone: Start: 06-01-2014 End: 01-04-2015 Pacer Clinic [facility] Clinic [facility] Work Phone: Start: 01-13-2014 End: 03-07-2014 *Hepatic Function Panel *Hepatic Function Panel [facility] Work Phone: Start: 01-13-2014 End: 01-13-2014 DJN DJN [facility] Work Phone: Start: 01-13-2014 End: 01-13-2014 Follow Up Appt 1 year Follow Up Appt 1 year [facility] Work Phone: Start: 01-13-2014 End: 01-13-2014 Follow Up Appt 3 months Follow Up Appt 3 months [facility] Work Phone: Start: 01-13-2014 [...] 1 year Follow Up Appt 1 year [facility] Work Phone: Start: 01-13-2014 End: [...] Lipid panel [AGGREGATE] *Lipid Profile CC PCP [facility] Work Phone: Start: 05-21-2013 End: 12-29-2013 Follow Up Appt 3 months Follow Up Appt 3 months [facility] Work Phone: Start: 05-21-2013 End: 12-29-2013 Pacer Clinic Pacer Clinic [facility] Work Phone: Start: 05-21-2013 End: 12-29-2013 Follow Up Appt 3 months Follow Up Appt 3 months [facility] Work Phone: Start: 05-21-2013 End: 12-29-2013 Pacer Clinic Pacer Clinic [facility] Work Phone: Start: 02-17-2013 End: 12-29-2013 Follow Up Appt 3 months Follow Up Appt 3 months [facility] Work Phone: Start: 02-17-2013 End: 12-29-2013 Pacer Clinic Pacer Clinic [facility] Work Phone: Start: 02-17-2013 End: 12-29-2013 Follow Up Appt 3 months Follow Up Appt 3 months [facility] Work Phone: Start: 02-17-2013 End: 12-29-2013 Pacer Clinic Pacer Clinic [facility] Work Phone: Start: 10-13-2012 End: 10-13-2012 Follow Up Appt 6 months Follow Up Appt 6 months [facility] Work Phone: Start: 10-13-2012 End: 10-13-2012 Follow Up Appt 6 months Follow Up Appt 6 months [facility] Work Phone: Start: 04-20-2012 End: 04-28-2012 *BMP *BMP [facility] Work Phone: Start: 04-20-2012 End: 04-28-2012 *CBC with Differential *CBC with Differential [facility] Work Phone: Start: 04-20-2012 End: 09-22-2012 *Hepatic Function Panel *Hepatic Function Panel [facility] Work Phone: Start: 04-20-2012 End: 04-20-2012 Follow Up Appt 6 months Follow Up Appt 6 months [facility] Work Phone: Start: 04-20-2012 End: 10-13-2012 Lipid 1996 panel *Lipid Profile [facility] Work Phone: Start: 04-20-2012 End: 10-13-2012 Magnesium mass conc *Magnesium [facility] Work Phone: Start: 04-20-2012 End: 04-28-2012 *BMP *BMP [facility] Work Phone: Start: 04-20-2012 End: 04-28-2012 *CBC with Differential *CBC with Differential [facility] Work Phone: Start: 04-20-2012 End: 09-22-2012 *Hepatic Function Panel *Hepatic Function Panel [facility] Work Phone: Start: 04-20-2012 End: 04-20-2012 Follow Up Appt 6 months Follow Up Appt 6 months [facility] Work Phone: Start: 04-20-2012 End: 10-13-2012 Lipid panel [AGGREGATE] *Lipid Profile [facility] Work Phone: Start: 04-20-2012 End: 10-13-2012 Magnesium *Magnesium [facility] Work Phone: Patient Education [email or web address]%20DIET [facility] Work Phone: Payers Date Payer Category Payer Unknown [id number] Unknown Social History Date Type Detail Facility [facility] Tobacco smoking consumption unknown [facility] Clinical Note 04-10-2021 Note Date & Type Note Facility 04-10-2021 Note Patient Outreach ([place] [facility]) FRANCIS MORTON ([id number]) 1955 M Date Time Provider Department 04/10/21 [...] tests Date Reviewed: 09/04/2020 Reviewed by: Ngozi ([facility]) AINSLEY Patrick - Fully Assessed Visit Diagnoses:Medication management [Z79.899] Hyperlipidemia LDL goal <100 [E78.5] Order(s):BASIC METABOLIC PNL [SQBMP] Order #: [id number] FUTURE LIPID PANEL BASIC [SQLIPB] Order #: [id number] FUTURE TSH BLD [SQTSH] Order #: [id number] FUTURE CBC [SQCBC] Order #: [id number] FUTURE AST/SGOT BLD [SQAST] Order #: [id number] FUTURE ALT/SGPT [SQALT] Order #: [id number] FUTURE MAGNESIUM BLD [SQMG1] Order #: [id number] FUTURE Prescriptions as of 04/10/2021 Sig: MELOXICAM [...] abuse [F10.10] 10/16/2012 06/23/2013 Alcoholism /alcohol abuse [GPC1016] 06/23/2013 Tobacco abuse [Z72.0] 10/31/2014 Paroxysmal atrial fibrillation (HCC) [I48.0] 11/13/2017 Hyperlipidemia LDL goal <100 [E78.5] 11/13/2017 Physical debility [R53.81] 12/17/2019 Situational depression [F43.21] 12/17/2019 Generalized anxiety disorder with panic attacks*09/04/2020 Dysfunctional grieving [F43.21] 09/04/2020 Encounter Status:Closed by JANNETH CHACON on 04/13/21 [facility] Summary Purpose Family History No [...] DATE CREATED AUTHOR AUTHOR'S ORGANIZ ATION 12/18/2021 [facility] DATE CREATED AUTHOR AUTHOR'S ORGANIZ ATION 05/15/2022 [facility] <item><item> Privacy Markings (unrecogniz ed section and [...] BE BASED ON THE PRIMARY CLINICAL RECORDS. [facility] provides no warranty or guarantee of the accuracy or completeness of information in this document.
[2023-12-02 06:33] LABS: Absolute Lymphocyte Count 0.72 X10^3/uL (0.83-4.51); Absolute Neutrophil Count 7.2 X10^3/uL (2.0-7.7); Basophil# 0.01 X10^3/uL; Basophil% 0.1 % (0-1); Hematocrit 41.4 % (40-54); Hemoglobin 14.1 g/dL (13.0-16.5); Lymphocyte # 0.72 X10^3/ul (0.83-4.51); Lymphocyte % 8.9 % (19-41); Mean Corp Hgb Conc 34.1 g/dL (32-36); Mean Corpuscular Hgb 32.3 pg (27.0-32.0); Mean Corpuscular Volume 94.7 fL (80-94); Mean Platelet Vol. 10.2 fl (6.2-12.0); Monocyte# 0.08 X10^3/uL; NRBC Flagged by Analyzer 0 % (0-5); Neutrophil # 7.24 X10^3/uL (2.7-7.7); Neutrophil % 89.4 % (47-70); Platelet Count 309 K/mm3 (150-450); RBC Distribution Width CV 14.5 % (11.6-14.6); RBC Distribution Width SD 50.1 fl (35.1-43.9); Red Blood Count 4.37 M/mm3 (4.6-6.2); White Blood Count 8.1 K/mm3 (4.4-11.0)
[2023-12-02 07:16] LABS: ALB/GLOB Ratio 0.7 RATIO (0.9-2.4); AST(SGOT) 78 U/L (15-37); Alanine Aminotransfer ALT/SGPT 54 U/L (16-61); Albumin, Serum 2.8 g/dL (3.2-5.0); Alkaline Phosphatase 122 U/L (45-117); Anion Gap 7 (5-15); BUN 14 mg/dL (7-18); BUN/Creat Ratio 27.3 RATIO (10-20); Calcium,Total 8.9 mg/dL (8.5-10.1); Chloride 101 mmol/L (98-107); Creatinine, Serum 0.51 mg/dL (0.70-1.30); EST Glomerular Filtration Rate 171 mL/min (>60); Est Glom Filt Rate - Afr Amer 207 mL/min (>60); Globulin 3.8 g/dL (2.2-4.2); Glucose 153 mg/dL (74-106); Potassium 4.3 mmol/L (3.5-5.1); Protein, Total 6.6 g/dL (6.4-8.2); Sodium Level 133 mmol/L (136-145)
== END ==
LOC: OLS.WHLEAS 06:00
PROVIDERS: PCP Internal Medicine; Visit Provider Internal Medicine
DX: I10 Essential (primary) hypertension (principal); K70.10 Alcoholic hepatitis without ascites
CPT/HCPCS: 36415; 80053; 82140; 85025

== ENCOUNTER → 2023-12-09 | Outpatient (REF) | payer MEDICARE, MEDICAID, SELFPAY ==
[2023-09-01 14:43] VITALS: BMI 29.2
[2023-12-09 09:58] LABS: Absolute Lymphocyte Count 1.04 X10^3/uL (0.83-4.51); Absolute Neutrophil Count 16.2 X10^3/uL (2.0-7.7); Basophil# 0.02 X10^3/uL; Basophil% 0.1 % (0-1); Eosinophils% 0.5 % (0-5); Hematocrit 40.5 % (40-54); Lymphocyte # 1.04 X10^3/ul (0.83-4.51); Lymphocyte % 5.6 % (19-41); Mean Corp Hgb Conc 34.6 g/dL (32-36); Mean Corpuscular Hgb 32.6 pg (27.0-32.0); Mean Corpuscular Volume 94.2 fL (80-94); Monocyte% 6.4 % (0-10); NRBC Flagged by Analyzer 0 % (0-5); Neutrophil # 16.18 X10^3/uL (2.7-7.7); Neutrophil % 86.4 % (47-70); Platelet Count 233 K/mm3 (150-450); RBC Distribution Width CV 15.1 % (11.6-14.6); RBC Distribution Width SD 51.4 fl (35.1-43.9); White Blood Count 18.7 K/mm3 (4.4-11.0)
[2023-12-09 10:28] LABS: ALB/GLOB Ratio 0.7 RATIO (0.9-2.4); AST(SGOT) 68 U/L (15-37); Alanine Aminotransfer ALT/SGPT 51 U/L (16-61); Albumin, Serum 2.5 g/dL (3.2-5.0); Alkaline Phosphatase 121 U/L (45-117); Anion Gap 7 (5-15); BUN 21 mg/dL (7-18); BUN/Creat Ratio 54.3 RATIO (10-20); Calcium,Total 8.3 mg/dL (8.5-10.1); Chloride 103 mmol/L (98-107); Creatinine, Serum 0.39 mg/dL (0.70-1.30); EST Glomerular Filtration Rate 236 mL/min (>60); Est Glom Filt Rate - Afr Amer 286 mL/min (>60); Globulin 3.5 g/dL (2.2-4.2); Glucose 131 mg/dL (74-106); Potassium 3.2 mmol/L (3.5-5.1); Sodium Level 134 mmol/L (136-145)
== END ==
LOC: OLS.WHLEAS 05:00
PROVIDERS: PCP Internal Medicine; Visit Provider Internal Medicine
DX: K70.10 Alcoholic hepatitis without ascites (principal); L97.512 Non-pressure chronic ulcer of other part of right foot with fat layer exposed; L03.115 Cellulitis of right lower limb; M62.561 Muscle wasting and atrophy, not elsewhere classified, right lower leg
CPT/HCPCS: 36415; 80053; 82140; 85025

== ENCOUNTER → 2023-12-11 | Outpatient (REF) | payer MEDICARE, MEDICAID, SELFPAY ==
[2023-09-01 14:43] VITALS: BMI 29.2
[2023-12-11 08:48] LABS: Potassium 2.9 mmol/L (3.5-5.1)
== END ==
LOC: OLS.WHLEAS 05:00
PROVIDERS: PCP Internal Medicine; Visit Provider Internal Medicine
DX: K70.10 Alcoholic hepatitis without ascites (principal)
CPT/HCPCS: 36415; 84132

== ENCOUNTER → 2023-12-16 | Outpatient (REF) | payer MEDICARE, MEDICAID, SELFPAY ==
[2023-09-01 14:43] VITALS: BMI 29.2
--- OUTSIDE RECORDS SUMMARY | 2023-12-16 05:25 | XMS RPT_ITS | CCD ---
Author Name Unknown Address [address] [place] [address] Organization [facility] Care Team Providers Care Transmitter Operator Name Role Phone MD Naga, Luis Augustin [...] Hmg-Coa Reductase Inhibitors (Statins) Drug Allergy [facility] (7 sources) ezetimibe drug allergy 04-23-2017 myalgia's [facility] Work Phone: (12 sources) Hmg-Coa Reductase Inhibitors (Statins) drug allergy 01-13-2014 Elevated Liver Enzymes [facility] Work Phone: (12 sources) iodine drug allergy 05-24-2011 Rash [facility] Work Phone: Medications Current Medications Medication Drug [...] tablet by mouth twice daily AMLODIPINE BESYLATE [id number] Luis Martin MD Problems Active Problems Problem Classification Problem Date Documented Date Episodic/Chronic Cardiac dysrhythmias (20 sources) Ventricular tachycardia; Translations: [Premature beats] Onset: 05-24-2011 05-24-2011 Chronic Coronary atherosclerosis and other heart disease (20 sources) Atherosclerotic heart disease of [place] coronary artery without angina pectoris; Translations: [Coronary [...] 05-24-2011 Episodic Other aftercare (14 sources) Other buttermaker (current) drug therapy; Translations: [Other buttermaker (current) drug therapy] Onset: 05-24-2011 05-24-2011 Episodic Other nutritional; endocrine; and metabolic disorders (12 sources) Body mass index (BMI) 27.0-27.9, adult; Translations: [Body mass index (BMI) 27.0-27.9, adult] Onset: 01-23-2017 01-23-2017 Episodic Results Test Name Value Interpretation Reference Range Facil ity Vital Signs Date Time Vital Sign Value Performing Clinician Facility 05-27-2021 14:37-0400 Diastolic blood pressure 68 mm[Hg] Shay Cebul Other Phone: [facility] 05-27-2021 14:37-0400 Heart rate 73 /min Shay Cebul Other Phone: [facility] 05-27-2021 14:37-0400 Respiratory rate 18 /min Shay Cebul Other Phone: [facility] 05-27-2021 14:37-0400 Systolic blood pressure 124 mm[Hg] Shay Cebul Other Phone: [facility] 05-27-2021 13:30-0400 SaO2% (BldA) [Mass fraction] 97 % Shay Cebul Other Phone: [facility] 05-27-2021 12:08-0400 Body height 187.9 cm Shay Cebul Other Phone: [facility] 05-27-2021 12:08-0400 Body temperature 99.14 [degF] Shay Cebul Other Phone: [facility] 05-27-2021 12:08-0400 Body weight 90.9 kg Shay Cebul Other Phone: [facility] 05-24-2021 05:30-0400 Diastolic blood pressure 78 mm[Hg] Shay Cebul Other Phone: [facility] 05-24-2021 05:30-0400 Heart rate 90 /min Shay Cebul Other Phone: [facility] 05-24-2021 05:30-0400 Respiratory rate 18 /min Shay Cebul Other Phone: [facility] 05-24-2021 05:30-0400 SaO2% (BldA) [Mass fraction] 95 % Shay Cebul Other Phone: [facility] 05-24-2021 05:30-0400 Systolic blood pressure 130 mm[Hg] Shay Cebul Other Phone: [facility] 08-05-2017 15:22-0400 BMI (Body Mass Index) 27.47 kg/m2 [facility] Work Phone: 08-05-2017 15:22-0400 BP Diastolic 70 mm[Hg] [facility] Work Phone: 08-05-2017 15:22-0400 BP Systolic 122 mm[Hg] Angela Hernandez RN [facility] Work Phone: 08-05-2017 15:22-0400 Height 187.96 cm Angela Hernandez RN [facility] Work Phone: 08-05-2017 15:22-0400 Pulse [...] Chart Update Shay Del Rosario Work Phone: [employer] [facility] Work Phone: Start: 02-14-2022 Chart Update Shay Del Rosario Work Phone: [employer] [facility] Work Phone: Start: 05-27-2021 End: 05-27-2021 Emergency department patient visit Cy Watkinstelma [facility] Emergency 16 Start: 05-24-2021 End: 05-24-2021 Emergency department patient visit Tommy Horn [facility] Emergency 16 Start: 11-08-2017 End: 11-11-2017 Evaluation [...] PA-C Work Phone: Start: 09-27-2014 End: 01-04-2015 [facility] Dayanna Mercedes PA-C Work Phone: Start: 09-27-2014 End: 09-27-2014 Prgrmng dev eval implantable in persn 1 ld dfb Dayanna Mercedes PA-C Work Phone: Start: 09-27-2014 End: 01-04-2015 Follow Up Appt 3 months Dayanna fernández PA-C Work Phone: Start: 09-27-2014 End: 09-27-2014 Icd device prog eval, 1 sngl Dayanna Mercedes PA-C Work Phone: Start: 09-27-2014 End: 01-04-2015 [facility] Dayanna Mercedes PA-C Work Phone: Start: 06-01-2014 End: 01-04-2015 Follow Up Appt 3 months Dayanna fernández PA-C Work Phone: Start: 06-01-2014 End: 01-04-2015 [facility] Dayanna Mercedes PA-C Work Phone: Start: [...] End: 01-12-2013 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 ld dfmanda Ramos MD Start: 01-12-2013 End: [...] End: 04-28-2012 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 ld dfb Yevgeniy Ramos MD Start: 04-20-2012 [...] Work Phone: Start: 08-05-2017 End: 08-05-2017 GERALD DUATRE [facility] Work Phone: Start: 08-05-2017 End: 08-05-2017 Follow Up Appt 6 months Follow Up Appt 6 months [facility] Work Phone: Start: 08-05-2017 End: 08-05-2017 Follow Up BP Check Follow Up BP Check [facility] Work Phone: Start: 08-05-2017 End: 08-05-2017 [facility] Work Phone: Start: 07-28-2017 End: 07-28-2017 Appointment Appointment [facility] Work Phone: Start: 07-28-2017 End: 07-28-2017 Appointment Appointment [facility] Work Phone: Start: 07-08-2017 End: 07-28-2017 *Hepatic Function Panel *Hepatic Function Panel [facility] Work Phone: Start: 07-08-2017 End: 07-28-2017 Lipid 1996 panel *Lipid Profile CC PCP [facility] Work Phone: Start: 07-08-2017 End: 07-28-2017 *Hepatic Function Panel *Hepatic Function Panel [facility] Work Phone: Start: 07-08-2017 End: 07-28-2017 Lipid panel [AGGREGATE] *Lipid Profile CC PCP [facility] Work Phone: Start: 03-10-2017 End: 04-03-2017 *Hepatic Function Panel *Hepatic Function Panel [facility] Work Phone: Start: 03-10-2017 End: 04-03-2017 Lipid 1996 panel *Lipid Profile CC PCP [facility] Work Phone: Start: 03-10-2017 End: 04-03-2017 *Hepatic Function Panel *Hepatic Function Panel [facility] Work Phone: Start: 03-10-2017 End: 04-03-2017 Lipid panel [AGGREGATE] *Lipid Profile CC PCP [facility] Work Phone: Start: 01-23-2017 End: 01-23-2017 GERALD DUARTE [facility] Work Phone: Start: 01-23-2017 End: 01-23-2017 Ecg routine ecg w/least 12 lds w/i&r EKG (In office) [facility] Work Phone: Start: 01-23-2017 End: 01-23-2017 Echocardiography Echocardiogram (complete) [facility] Work Phone: Start: 01-23-2017 End: 03-13-2017 Follow Up Appt 6 months Follow Up Appt 6 months [facility] Work Phone: Start: 01-23-2017 End: 01-23-2017 Follow Up BP Check Follow Up BP Check [facility] Work Phone: Start: 01-23-2017 End: 03-13-2017 Pac[facility] Clinic [facility] Work Phone: Start: 01-23-2017 End: 01-23-2017 GERALD DUARTE [facility] Work Phone: Start: 01-23-2017 End: 03-13-2017 Echocardiography Echocardiogram (complete) [facility] Work Phone: Start: 01-23-2017 End: 01-23-2017 Electrocardiogram, complete EKG (In office) [facility] Work Phone: Start: 01-23-2017 End: 03-13-2017 Follow Up Appt 6 months Follow Up Appt 6 months [facility] Work Phone: Start: 01-23-2017 End: 01-23-2017 Follow Up BP Check Follow Up BP Check [facility] Work Phone: Start: 01-23-2017 End: 03-13-2017 Pacer Clinic [facility] Work Phone: Start: 12-16-2016 End: 01-22-2017 *Hepatic Function Panel *Hepatic Function Panel [facility] Work Phone: Start: 12-16-2016 End: 01-22-2017 Lipid 1996 panel *Lipid Profile CC PCP [facility] Work Phone: Start: 12-16-2016 End: 01-22-2017 *Hepatic Function Panel *Hepatic Function Panel [facility] Work Phone: Start: 12-16-2016 End: 01-22-2017 Lipid panel [AGGREGATE] *Lipid Profile CC PCP [facility] Work Phone: Start: 11-27-2015 End: 12-16-2016 *Hepatic Function Panel *Hepatic Function Panel [facility] Work Phone: Start: 11-27-2015 [...] 3 months Follow Up Appt 3 months [facility] Work Phone: Start: 01-09-2015 End: 02-16-2015 Pac[facility] Clinic [facility] Work Phone: Start: 01-09-2015 End: 02-16-2015 Follow Up Appt 3 months Follow Up Appt 3 months [facility] Work Phone: Start: 01-09-2015 End: 02-16-2015 Pacer Clinic [facility] Work Phone: Start: 09-27-2014 End: 01-04-2015 Follow Up Appt 3 months Follow Up Appt 3 months [facility] Work Phone: Start: 09-27-2014 End: 01-04-2015 Pacer Clinic [facility] Work Phone: Start: 09-27-2014 End: 01-04-2015 Follow Up Appt 3 months Follow Up Appt 3 months [facility] Work Phone: Start: 09-27-2014 End: 01-04-2015 Pacer Clinic [facility] Work Phone: Start: 06-01-2014 End: 01-04-2015 Follow Up Appt 3 months Follow Up Appt 3 months [facility] Work Phone: Start: 06-01-2014 End: 01-04-2015 Pacer Clinic [facility] Work Phone: Start: 06-01-2014 End: 01-04-2015 Follow Up Appt 3 months Follow Up Appt 3 months [facility] Work Phone: Start: 06-01-2014 End: 01-04-2015 Pacer Clinic [facility] Work Phone: Start: 01-13-2014 End: 03-07-2014 *Hepatic Function Panel *Hepatic Function Panel [facility] Work Phone: Start: 01-13-2014 End: 01-13-2014 DJN DJN [facility] Work Phone: Start: 01-13-2014 End: 01-13-2014 Follow Up Appt 1 year Follow Up Appt 1 year [facility] Work Phone: Start: 01-13-2014 End: 01-13-2014 Follow Up Appt 3 months Follow Up Appt 3 months [facility] Work Phone: Start: 01-13-2014 End: 03-07-2014 Lipid 1996 panel *Lipid Profile CC PCP [facility] Work Phone: Start: 01-13-2014 End: 01-13-2014 Pacer Clinic [facility] Work Phone: Start: 01-13-2014 End: 03-07-2014 *Hepatic Function Panel *Hepatic Function Panel [facility] Work Phone: Start: 01-13-2014 End: 01-13-2014 DJN DJN [facility] Work Phone: Start: 01-13-2014 End: 01-13-2014 Follow Up Appt 1 year Follow Up Appt 1 year [facility] Work Phone: Start: 01-13-2014 End: 01-13-2014 Follow Up Appt 3 months Follow Up Appt 3 months [facility] Work Phone: Start: 01-13-2014 End: 03-07-2014 Lipid panel [AGGREGATE] *Lipid Profile CC PCP [facility] Work Phone: Start: 01-13-2014 End: 01-13-2014 Pacer Clinic [facility] Work Phone: Start: 12-02-2013 End: 12-29-2013 *Hepatic Function Panel *Hepatic Function Panel [facility] Work Phone: Start: 12-02-2013 End: 12-29-2013 Lipid 1996 panel *Lipid Profile CC PCP [facility] Work Phone: Start: 12-02-2013 End: 12-29-2013 *Hepatic Function Panel *Hepatic Function Panel [facility] Work Phone: Start: 12-02-2013 [...] Lipid panel [AGGREGATE] *Lipid Profile CC PCP [facility] Work Phone: Start: 05-21-2013 End: 12-29-2013 Follow Up Appt 3 months Follow Up Appt 3 months [facility] Work Phone: Start: 05-21-2013 End: 12-29-2013 Pacer Clinic Pac[facility] Clinic [facility] Work Phone: Start: 05-21-2013 End: [...] 02-17-2013 End: 12-29-2013 Pacer Clinic [facility] Clinic [facility] Work Phone: Start: 02-17-2013 End: 12-29-2013 Follow Up Appt 3 months Follow Up Appt 3 months [facility] Work Phone: Start: 02-17-2013 End: 12-29-2013 Pacer Clinic [facility] Clinic [facility] Work Phone: Start: 10-13-2012 End: 10-13-2012 Follow Up Appt 6 months Follow Up Appt 6 months [facility] Work Phone: Start: 10-13-2012 End: 10-13-2012 Follow Up Appt 6 months Follow Up Appt 6 months [facility] Work Phone: Start: 04-20-2012 End: 04-28-2012 *BMP *BMP [facility] Work Phone: Start: 04-20-2012 End: 04-28-2012 *CBC with Differential *CBC with Differential [facility] Work Phone: Start: 04-20-2012 End: 09-22-2012 *Hepatic Function Panel *Hepatic Function Panel [facility] Work Phone: Start: 04-20-2012 End: 04-20-2012 Follow Up Appt 6 months Follow Up Appt 6 months [facility] Work Phone: Start: 04-20-2012 End: 10-13-2012 Lipid 1996 panel *Lipid Profile [facility] Work Phone: Start: 04-20-2012 End: 10-13-2012 Magnesium mass conc *Magnesium [facility] Work Phone: Start: 04-20-2012 End: 04-28-2012 *BMP *BMP [facility] Work Phone: Start: 04-20-2012 End: [...] End: 10-13-2012 Lipid panel [AGGREGATE] *Lipid Profile [facility] Work Phone: Start: 04-20-2012 End: 10-13-2012 Magnesium *Magnesium [facility] Work Phone: Patient Education HEART%20HEALTHY%20DIET [facility] Work Phone: Payers Date Payer Category Payer Unknown [id number] Unknown Social History Date Type Detail Facility [facility] Tobacco smoking consumption unknown [facility] Clinical Note 04-10-2021 Note Date & Type Note Facility 04-10-2021 Note Patient Outreach ([place] [facility]) FRANCIS MORTON ([id number]) 1955 M Date Time Provider Department 04/10/21 [...] tests Date Reviewed: 09/04/2020 Reviewed by: Ngozi ([facility]) AINSLEY Patrick - Fully Assessed Visit Diagnoses:Medication management [Z79.899] Hyperlipidemia LDL goal <100 [E78.5] Order(s):BASIC METABOLIC PNL [SQBMP] Order #: [id number] FUTURE LIPID PANEL BASIC [SQLIPB] Order #: [id number] FUTURE TSH BLD [SQTSH] Order #: [id number] FUTURE CBC [SQCBC] Order #: [id number] FUTURE AST/SGOT BLD [SQAST] Order #: [id number] FUTURE ALT/SGPT [SQALT] Order #: [id number] FUTURE MAGNESIUM BLD [SQMG1] Order #: [id number] FUTURE Prescriptions as of 04/10/2021 Sig: MELOXICAM [...] abuse [F10.10] 10/16/2012 06/23/2013 Alcoholism /alcohol abuse [MWN1205] 06/23/2013 Tobacco abuse [Z72.0] 10/31/2014 Paroxysmal atrial fibrillation (HCC) [I48.0] 11/13/2017 Hyperlipidemia LDL goal <100 [E78.5] 11/13/2017 Physical debility [R53.81] 12/17/2019 Situational depression [F43.21] 12/17/2019 Generalized anxiety disorder with panic attacks*09/04/2020 Dysfunctional grieving [F43.21] 09/04/2020 Encounter Status:Closed by JANNETH CHACON on 04/13/21 [facility] Summary Purpose Family History No Family [...] DATE CREATED AUTHOR AUTHOR'S ORGANIZ ATION 12/18/2021 [facility] DATE CREATED AUTHOR AUTHOR'S ORGANIZ ATION 05/15/2022 [facility] <item><item> Privacy Markings (unrecogniz ed section [...] BE BASED ON THE PRIMARY CLINICAL RECORDS. [facility] [employer] [facility]. provides no warranty or guarantee of the accuracy or completeness of information in this document.
[2023-12-16 09:20] LABS: Absolute Lymphocyte Count 1.62 X10^3/uL (0.83-4.51); Absolute Neutrophil Count 9.5 X10^3/uL (2.0-7.7); Basophil# 0.05 X10^3/uL; Basophil% 0.4 % (0-1); Eosinophil# 0.32 X10^3/uL; Eosinophils% 2.6 % (0-5); Hematocrit 40.2 % (40-54); Hemoglobin 14.1 g/dL (13.0-16.5); Lymphocyte # 1.62 X10^3/ul (0.83-4.51); Mean Corp Hgb Conc 35.1 g/dL (32-36); Mean Corpuscular Volume 91.2 fL (80-94); Mean Platelet Vol. 10.3 fl (6.2-12.0); Monocyte# 0.83 X10^3/uL; Monocyte% 6.7 % (0-10); NRBC Flagged by Analyzer 0 % (0-5); Neutrophil # 9.53 X10^3/uL (2.7-7.7); Neutrophil % 76.7 % (47-70); Platelet Count 235 K/mm3 (150-450); RBC Distribution Width CV 14.8 % (11.6-14.6); RBC Distribution Width SD 49.5 fl (35.1-43.9); Red Blood Count 4.41 M/mm3 (4.6-6.2); White Blood Count 12.4 K/mm3 (4.4-11.0)
[2023-12-16 09:54] LABS: ALB/GLOB Ratio 0.7 RATIO (0.9-2.4); AST(SGOT) 105 U/L (15-37); Alanine Aminotransfer ALT/SGPT 65 U/L (16-61); Alkaline Phosphatase 161 U/L (45-117); Anion Gap 7 (5-15); BUN 18 mg/dL (7-18); BUN/Creat Ratio 62.5 RATIO (10-20); Calcium,Total 8.1 mg/dL (8.5-10.1); Chloride 111 mmol/L (98-107); Creatinine, Serum 0.29 mg/dL (0.70-1.30); EST Glomerular Filtration Rate 332 mL/min (>60); Est Glom Filt Rate - Afr Amer 402 mL/min (>60); Glucose 80 mg/dL (74-106); Potassium 3.1 mmol/L (3.5-5.1); Sodium Level 144 mmol/L (136-145)
== END ==
LOC: OLS.WHLEAS 05:00
PROVIDERS: PCP Internal Medicine; Visit Provider Internal Medicine
DX: I10 Essential (primary) hypertension (principal); J44.9 Chronic obstructive pulmonary disease, unspecified; K70.10 Alcoholic hepatitis without ascites
CPT/HCPCS: 36415; 80053; 82140; 85025

== ENCOUNTER → 2023-12-18 | Outpatient (REF) | payer MEDICARE, MEDICAID, SELFPAY ==
[2023-09-01 14:43] VITALS: BMI 29.2
[2023-12-18 08:43] LABS: Potassium 3.5 mmol/L (3.5-5.1)
== END ==
LOC: OLS.WHLEAS 04:00
PROVIDERS: PCP Internal Medicine; Referring Provider Internal Medicine; Visit Provider Internal Medicine
DX: E87.6 Hypokalemia (principal)
CPT/HCPCS: 36415; 84132

== ENCOUNTER 2023-12-22 16:47 | Inpatient (IN) | payer MEDICARE, MEDICAID, SELFPAY ==
[2023-09-01 14:43] VITALS: BMI 29.2
[2023-12-22 16:50] VITALS: BP 122/80; PULSE 82; RESP 18; TEMP 36.2; O2SAT 96; BMI 21.0
--- NOTE | 2023-12-22 17:40 | EKG12_ITS ---
Test Reason : WEAKNESS Blood Pressure : / mmHG Vent. Rate : 084 BPM Atrial Rate : 084 BPM P-R Int : 182 ms QRS Dur : 120 ms QT Int : 418 ms P-R-T Axes : 040 048 225 degrees QTc Int : 493 ms Normal sinus rhythm Cannot rule out Inferior infarct , age undetermined ST & T wave abnormality, consider lateral ischemia Abnormal ECG Confirmed by GISSELLE JEFFERSON, VALERIE ([id number]), editorial specialist SUSAN BLACKMAN ([id number]) on 12/23/2023 9:44:57 AM Referred By: Confirmed By:VALERIE PITTS MD
--- NOTE | 2023-12-22 17:48 | EDS_ITS ---
HPI History of Present Illness Chief Complaint: Weakness Narrative Narrative: 68-year-old male who is a very poor informant presenting with weakness. He is unable to give me much history due to being a poor informant but also he is very hard to understand when he speaks. It is unknown how long his speech has been like this. His mouth appears very dry. He does point to his lower abdomen on the left and states he has abdominal pain. He is indicated to me that he is not eating and drinking very much. While interviewing him he keeps falling asleep. He did state that he had not had a fever. He had not been throwing up. He has recent history of constipation and he believes he was given something for this. [facility] Medical History (Updated 12/22/23 @ 20:[address] 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 Essential hypertension Femoral neck fracture Former tobacco use Frequent falls History of alcoholism Hyperlipidemia Hyponatremia Incontinence of feces Incontinence of urine Ischemic cardiomyopathy Non-pressure chronic ulcer of other part of right foot with fat layer exposed Physical debility Pulmonary nodule Stage 1 mild COPD by GOLD classification Syndrome of inappropriate ADH (SIADH) secretion Tinea unguium Unable to ambulate Ventricular tachycardia Home Medications amiodarone 200 mg tablet 200 mg PO BID HEART RHYTHM 05/25/22 [History Last Taken Unknown] clopidogrel 75 mg tablet 75 mg PO DAILY 05/25/22 [History Last Taken Unknown] metoprolol succinate 25 mg tablet,extended release 24 hr 12.5 mg PO DAILY BP 05/25/22 [History Last Taken Unknown] paroxetine HCl 20 mg tablet 30 mg PO QHS 05/25/22 [History Last Taken Unknown] albuterol sulfate 2.5 mg/3 mL (0.083 %) solution for nebulization 2.5 mg (3 mL) inhalation Q2H PRN PRN Shortness of Breath/Wheezing #0 mL 06/06/22 [Rx Last Taken Unknown] loperamide 2 mg capsule 2 mg PO Q6H PRN loose stool 08/19/23 [History Last Taken Unknown] meloxicam 15 mg tablet 15 mg PO DAILY 08/19/23 [History Last Taken Unknown] trazodone 100 mg tablet 150 mg PO QHS 08/19/23 [History Last Taken Unknown] Lactobacillus acidophilus 10 billion cell capsule (Probiotic) 10,000 mmu cells PO DAILY #10 caps 10/05/23 [Rx Last Taken Unknown] acetaminophen 325 mg tablet 650 mg PO Q4H pain 10/05/23 [History Last Taken Unknown] doxycycline monohydrate 100 mg capsule 100 mg PO BID #14 CAPSULES 10/05/23 [Rx Last Taken Unknown] lactulose 10 gram/15 mL oral solution 15 ml PO BID 10/05/23 [History Last Taken Unknown] sodium chloride 1,000 mg soluble tablet 1,000 mg PO DAILY 10/05/23 [History Last Taken Unknown] Allergy/AdvReac Type Severity Reaction Status Date / Time Iodine and Iodide Containing Allergy Severe Rash Verified 12/22/23 16:55 Produc ezetimibe [From Zetia] AdvReac Severe Myalgias Verified 12/22/23 16:55 [id number]-[id number] Reductase AdvReac Severe Elevated Verified 12/22/23 16:55 Inhibitor Liver [[id number]-Fga Reductase Enzymes Inhibitor] duloxetine [From Cymbalta] AdvReac Orthostasis Verified 12/22/23 16:55 /hyponatrem ia Family History Grandmother Myocardial infarction Grandfather Myocardial infarction Surgical History History of coronary artery stent placement (02/17/19) History of implantable cardiac defibrillator (ICD) (10/31/17) History of left heart catheterization (LHC) (01/21/19) Hx of knee surgery Hx of total hip arthroplasty Social History housing: prison number of children: 1 current occupational status: unemployed Smoking Status: Light Smoker (<10/day) how long ago did patient quit smoking: Smokes 2.5 packs per week. alcohol intake: former year quit: 2012 details: Sober 13-14 months. substance use type: other details: Has abused RX Ativan in the past, remains clean. well-balanced diet: other details: says that he gets meals on wheels and they pile upin the refrigerator caffeine: No during the past year weight has: other details: decreased 20 lbs since November what type of physical activity do you participate in: none duration: < 15 minutes/day seatbelt use: always do you feel safe at home: Yes ROS ROS ED Constitutional Constitutional ED: Denies chills or fever(s) Eyes Eyes: Denies change in vision or diplopia ENT ENT ED: Denies rhinorrhea or sore throat Cardiovascular Cardiovascular: Denies chest pain or palpitations Respiratory/Chest Respiratory/Chest: Denies cough or dyspnea Gastrointestinal Gastrointestinal: Reports abdominal pain, constipation and other Details: Decreased p.o. intake Genitourinary Genitourinary ED: Denies dysuria or hematuria Musculoskeletal Musculoskeletal: Denies arthralgias Integumentary Denies abscess or Abrasions Neurologic Neurologic: Denies headache(s) Psychiatric Psychiatric: Denies anxiety or depression EXAM Physical Exam Const Vital Signs: 12/22/23 16:50 12/22/23 17:30 12/22/23 18:17 Temperature 97.2 F L Temperature Source Temporal Pulse Rate 82 84 Respiratory Rate 18 17 Respiratory Effort Normal Non-Labored Respiratory Pattern Normal Blood Pressure 122/80 H 120/77 Blood Pressure Mean 94 91 Pulse Ox 96 99 12/22/23 19:00 Temperature Temperature Source Pulse Rate 86 Respiratory Rate 20 H Respiratory Effort Respiratory Pattern Blood Pressure 124/84 H Blood Pressure Mean 97 Pulse Ox Positive well nourished General Appearance ED: NAD HEENT Reports moist mucous membranes Eyes PERRL and EOMs intact bilaterally General Eye ED: Yes pale conjunctiva Chest Wall inspection of chest normal Resp normal respiratory effort and clear to auscultation bilaterally Auscultation: Negative for rales, rhonchi or wheezes Cardio regular rate and regular rhythm GI Palpation: tender LLQ Back/Spine no CVA tenderness Extremity normal to inspection Neuro Sensorium / Orientation: alert and orientation impaired Motor Exam: general weakness Psych Psych Narrative: Confused MDM MDM MDM Narrative Medical decision making narrative: Patient presenting with generalized weakness. He does look dehydrated. It is difficult to get history from him due to debility. Denies any history of falls. Differential includes ACS, dehydration, anemia, [place] imbalance, pneumonia, COVID, influenza, UTI, colitis, diverticulitis, pyelonephritis, hyperammonemia,. Patient does admit to abdominal pain left lower quadrant. CBC to obtain white blood cell count, hemoglobin, platelets. CMP to assess liver function, renal function electrolytes, glucose. High-sensitivity troponin EKG to assess for ischemia/dysrhythmia. Urinalysis to assess for UTI. Chest x-ray to rule out pneumonia. Ammonia level to assess for hyperammonemia. CT brain will be obtained to rule out acute intracranial process. CBC shows white blood cell count of 16.0. Hemoglobin 15.2. Platelets of 238. Renal function electrolytes within normal limits. Glucose 123. LFTs slightly elevated with AST 110, ALT 64, alkaline phosphatase 21. Ammonia level is less than 10. High-sensitivity opponent is 15. EKG on my interpretation shows a normal sinus rhythm with a ventricular rate of 84 bpm without signs of ST elevation or depression. Chest x-ray shows left-sided rib fractures which include eighth and ninth ribs on my interpretation. Radiologist services and agrees. No pneumothorax. CT of the abdomen pelvis shows thickening of the descending and sigmoid colon which could be present with colitis. He also has a lot of ascites. Given the patient's stability, white blood cell count, abdominal pain I started the patient on ciprofloxacin and Flagyl. Patient will be admitted to the hospitalist. CT brain was negative and was obtained since the patient had rib fractures with no history of falls. Impression: 1. Debility 2. 8 and ninth rib fractures 3. Colitis 4. Ascites Lab Data Attestation: I reviewed the patient's lab results. Labs: Laboratory Results - last 24 hr 12/22/23 12/22/23 17:30 18:15 WBC 16.0 H RBC 4.92 Hgb 15.2 Hct 45.3 MCV 92.1 MCH 30.9 MCHC 33.6 RDW Std Deviation 51.1 H RDW Coeff of [place] 15.3 H Plt Count 338 MPV 10.9 Immature Gran % (Auto) 0.700 Neut % (Auto) 70.2 H Lymph % (Auto) 16.8 L [place] % (Auto) 9.7 Eos % (Auto) 2.1 Baso % (Auto) 0.5 Absolute Neuts (auto) 11.3 H Absolute Lymphs (auto) 2.69 Nucleated RBC % 0 Differential Comment SCANNED Sodium 142 Potassium 3.5 Chloride 111 H Carbon Dioxide 27.0 Anion Gap 4 L BUN 16 Creatinine 0.47 L Estim Creat Clear Calc 94.29 Est GFR (MDRD) Af Amer 230 Est GFR (MDRD) Non-Af 190 BUN/Creatinine Ratio 34.2 H Glucose 123 H Calcium 8.4 L Total Bilirubin 1.00 AST 110 H ALT 64 H Alkaline Phosphatase 181 H Ammonia < 10.0 L Troponin I High Sens 15 Total Protein 5.5 L Albumin 2.2 L Globulin 3.3 Albumin/Globulin Ratio 0.7 L Urine Color [place] Urine Clarity Clear Urine pH 5.0 Ur Specific [place] 1.015 Urine Protein 30 H Urine Glucose (UA) Normal Urine Ketones 5 H Urine Occult Blood 10 H Urine Nitrite Negative Urine Bilirubin 3 H Urine Urobilinogen 4 H Ur Leukocyte Esterase 25 H Urine RBC 0 SEEN Urine WBC 0-5 SEEN Ur Squamous Epith Cells 0 SEEN Urine Bacteria 0 SEEN Urine Mucus RARE Radiography Diagnostic Testing: Clinical Impression(s) from Imaging Studies Chest X-Ray 12/22/23 17:57 IMPRESSION: Mildly displaced fractures of the eighth and ninth ribs..Possible tiny left pleural effusion Electronically Signed: Zhao Mcallister MD at 18:21 EST Reading Location ID and State: [address] [place] [address] Tel [phone], Service support , Abdomen/Pelvis CT 12/22/23 18:24 IMPRESSION: Mildly prominent liver and spleen Massive abdominopelvic ascites possibly due to hepatocellular disease. Multifocal thickening of the chandler of the distal descending and sigmoid colon possibly representing colitis however clinical correlation is recommended. There is relatively hypoattenuated appearance to the head of the pancreas possibly representing focal pancreatitis Other findings as above Electronically Signed: Zhao Mcallister MD at 19:22 EST Reading Location ID and State: [address] [place] [address] Tel [phone], Service support , Brain CT 12/22/23 18:24 IMPRESSION: Atrophy and periventricular white matter ischemic change. No acute bleed. If concern for acute infarct MRI recommended. Electronically Signed: Zhao Mcallister MD at 19:00 EST , Discharge Plan Triage Chief Complaint: Weakness ED Provider: Hussain Wakefield Dx/Rx/DC Orders Prescriptions: No Action amiodarone 200 mg tablet 200 mg PO BID clopidogrel 75 mg tablet 75 mg PO DAILY paroxetine HCl 20 mg tablet 30 mg PO DAILY metoprolol succinate 25 mg tablet extended release 24 hr 12.5 mg PO DAILY albuterol sulfate 2.5 mg /3 mL (0.083 %) Solution For Nebulization 2.5 mg inhalation Q2H PRN PRN (Reason: Shortness of Breath/Wheezing) Qty: 0 0RF loperamide 2 mg capsule 2 mg PO Q6H PRN (Reason: loose stool) Patient Comments: TAKE 1 CAPSULE BY MOUTH ATFER EACH LOOSE STOOL NEEDED, NO MORE THAN FOUR CAPSULES IN 24 HOURS meloxicam 15 mg tablet 15 mg PO DAILY Patient Comments: TAKE 1 TABLET BY MOUTH DAILY trazodone 100 mg tablet 125 mg PO QHS Patient Comments: Take 1 tablet by mouth at bedtime acetaminophen 325 mg tablet 650 mg PO Q4H sodium chloride 1,000 mg tablet,soluble 1,000 mg PO DAILY lactulose 10 gram/15 mL solution 15 ml PO BID doxycycline monohydrate 100 mg capsule 100 mg PO BID Qty: 14 0RF Probiotic 10 billion cell capsule 10,000 mmu cells PO DAILY Qty: 10 0RF Primary Care Provider: Rashard Gandhi Referrals: Rashard Gandhi MD [Primary Care Provider] -
[2023-12-22 17:50] LABS: Absolute Lymphocyte Count 2.69 X10^3/uL (0.83-4.51); Absolute Neutrophil Count 11.3 X10^3/uL (2.0-7.7); Basophil# 0.08 X10^3/uL; Basophil% 0.5 % (0-1); Eosinophil# 0.33 X10^3/uL; Eosinophils% 2.1 % (0-5); Hematocrit 45.3 % (40-54); Hemoglobin 15.2 g/dL (13.0-16.5); Lymphocyte # 2.69 X10^3/ul (0.83-4.51); Lymphocyte % 16.8 % (19-41); Mean Corp Hgb Conc 33.6 g/dL (32-36); Mean Corpuscular Hgb 30.9 pg (27.0-32.0); Mean Corpuscular Volume 92.1 fL (80-94); Mean Platelet Vol. 10.9 fl (6.2-12.0); Monocyte# 1.56 X10^3/uL; Monocyte% 9.7 % (0-10); NRBC Flagged by Analyzer 0 % (0-5); Neutrophil # 11.27 X10^3/uL (2.7-7.7); Neutrophil % 70.2 % (47-70); POSITIVE DIFFERENTIAL YES; Platelet Count 338 K/mm3 (150-450); RBC Distribution Width CV 15.3 % (11.6-14.6); RBC Distribution Width SD 51.1 fl (35.1-43.9); Red Blood Count 4.92 M/mm3 (4.6-6.2)
[2023-12-22 17:52] LABS: Differential Indicated SCAN CRITERIA MET
--- NOTE | 2023-12-22 17:57 | RAD_ITS ---
STUDY: X-RAY CHEST REASON FOR EXAM: Male, 68 years old. weakness TECHNIQUE: AP portable COMPARISON: May 23, 2021 FINDINGS: The lungs are clear and expanded. Blunted left costophrenic angle possibly representing tiny effusion AICD noted on the left with electrode in the right atrium Heart is enlarged. Normal mediastinum and mady. Normal visualized pulmonary arteries. Normal visualized aortic arch and descending thoracic aorta. Dorsal spine demonstrates mild degenerative change. Normal visualized, clavicles, and shoulders. Mildly displaced fractures of the eighth and ninth ribs There is no demonstrated abnormality of the visualized soft tissue structures of the upper abdomen. RAD/Chest 1 View (Portable) IMPRESSION: Mildly displaced fractures of the eighth and ninth ribs..Possible tiny left pleural effusion Electronically Signed: Zhao Mcallister MD at 18:21 EST ,
[2023-12-22 18:10] LABS: ALB/GLOB Ratio 0.7 RATIO (0.9-2.4); AST(SGOT) 110 U/L (15-37); Alanine Aminotransfer ALT/SGPT 64 U/L (16-61); Albumin, Serum 2.2 g/dL (3.2-5.0); Alkaline Phosphatase 181 U/L (45-117); Anion Gap 4 (5-15); BUN 16 mg/dL (7-18); BUN/Creat Ratio 34.2 RATIO (10-20); Calcium,Total 8.4 mg/dL (8.5-10.1); Chloride 111 mmol/L (98-107); Creatinine, Serum 0.47 mg/dL (0.70-1.30); Differential Comment SCANNED; EST Glomerular Filtration Rate 190 mL/min (>60); Est Glom Filt Rate - Afr Amer 230 mL/min (>60); Estimated Creatinine Clearance 94.29 ml/min; Globulin 3.3 g/dL (2.2-4.2); Glucose 123 mg/dL (74-106); Potassium 3.5 mmol/L (3.5-5.1); Protein, Total 5.5 g/dL (6.4-8.2); Sodium Level 142 mmol/L (136-145); Troponin-I HS 15 pg/mL (3.0-78.0)
[2023-12-22] MEDS: 0.9% Normal Saline (1000mL) 1,000 ML 999 ML IV (18:14)
[2023-12-22 18:17] VITALS: BP 120/77; PULSE 84; RESP 17; O2SAT 99
[2023-12-22 18:20] LABS: Bacteria 0 SEEN /hpf (None Seen); Red Blood Cells-Urine 0 SEEN /hpf (0-5); Squamous Epithelial Cells - UA 0 SEEN /hpf (0-5)
--- NOTE | 2023-12-22 18:24 | CT_ITS ---
STUDY: CT BRAIN WITHOUT CONTRAST REASON FOR EXAM: Male, 68 years old. ams RADIATION DOSAGE (If Supplied By Facility): CTDIvol = ( 44.99 ) mGy, DLP = ( 880.47 ) mGycm TECHNIQUE: Transaxial CT imaging of the brain was performed without administration of intravenous contrast material. Individualized dose optimization techniques were used for this CT. COMPARISON: May 25, 2022. FINDINGS: Normal soft tissue structures. Normal calvarium. Atrophy and periventricular white matter ischemic changes . Normal basal ganglia and thalami. Normal brainstem. Normal cerebellum. There is no intracranial hemorrhage. There are no findings of an acute ischemic infarction. Normal visualized paranasal sinuses. CT/Brain/Head without Contrast IMPRESSION: Atrophy and periventricular white matter ischemic change. No acute bleed. If concern for acute infarct MRI recommended. Electronically Signed: Zhao Mcallister MD at 19:00 EST ,
--- NOTE | 2023-12-22 18:24 | CT_ITS ---
STUDY: CT ABDOMEN AND PELVIS WITHOUT CONTRAST REASON FOR EXAM: Male, 68 years old. llq abdominal pain RADIATION DOSAGE (If Supplied By Facility): CTDIvol = ( 11.85 ) mGy, DLP = ( 698.58 ) mGycm TECHNIQUE: Transaxial images were obtained from the dome of the diaphragm to the symphysis pubis without oral contrast, and without intravenous contrast. Sagittal and coronal images were reconstructed. Individualized dose optimization techniques were used for this CT. COMPARISON: None. FINDINGS: There are large bilateral pleural effusions and bibasilar atelectasis.. Heart is enlarged and there is multivessel coronary artery disease Mildly enlarged liver which appears homogeneous without mass or bile duct dilatation.. Normal gallbladder and extrahepatic biliary system. Spleen is enlarged and homogeneous.. Pancreas is normal size however there appears to be edematous changes within the pancreatic head possibly representing mild focal pancreatitis. There is diffuse mesenteric edema and ascites throughout the abdomen and pelvis. Normal bilateral adrenal glands. Tiny nonobstructing right renal calculus.. Small simple cyst in the upper pole the right kidney. There is a tiny simple cyst in right kidney as well as a tiny hemorrhagic cyst. Normal visualized stomach. Mild nonspecific ileus. There is multifocal segmental thickening of the chandler of the colon and narrowing of the lumen in the descending and sigmoid colon of indeterminate etiology possibly representing colitis.. No evidence for acute appendicitis. Atherosclerotic changes of the aorta without evidence for aneurysm.. Normal inferior vena cava. Normal retroperitoneum. Concentric thickening of the chandler of bladder and mild nonspecific prominence of the prostate. Normal abdominal wall. Lumbar spine and sacroiliac joints demonstrates degenerative changes. [Left hip prosthesis is noted CT/Abdomen/Pelvis without Cont IMPRESSION: Mildly prominent liver and spleen Massive abdominopelvic ascites possibly due to hepatocellular disease. Multifocal thickening of the chandler of the distal descending and sigmoid colon possibly representing colitis however clinical correlation is recommended. There is relatively hypoattenuated appearance to the head of the pancreas possibly representing focal pancreatitis Other findings as above Electronically Signed: Zhao Mcallister MD at 19:22 EST ,
[2023-12-22 18:26] LABS: Color, Urine Amber (Yellow); Glucose, Dipstick Normal (Normal); Ketone-Dipstick 5 mg/dl (Negative); Leukocyte Esterase-Dipstick 25 /ul (Negative); Nitrite-Dipstick Negative (Negative); Occult Blood-Urine 10 /ul (Negative); Protein-Dipstick 30 mg/dl (Negative); Specific Gravity, Urine 1.015 (1.002-1.030); Urine Clarity Clear (Clear); Urine Urobilinogen 4 mg/dl (Normal)
[2023-12-22 18:31] LABS: Urine Bilirubin Dipstick 3 mg/dL (Negative)
[2023-12-22 18:38] LABS: Mucous, Urine RARE /hpf (<or=2+); White Blood Cells 0-5 SEEN /hpf (0-5)
[2023-12-22 18:44] LABS: Ammonia < 10.0 umol/L (11-32)
[2023-12-22 19:00] VITALS: BP 124/84; PULSE 86; RESP 20
--- OUTSIDE RECORDS SUMMARY | 2023-12-22 19:14 | XMS RPT_ITS | CCD ---
Author Name Unknown Address [address] [place] [address] Organization [facility] Care Team Providers Care Contract Accountant Name Role Phone MD Naga, Luis Augustin [...] JUAN PABLO, SHAY A III Unavailable Unavailable DOLORSE WANG Unavailable Unavailable RAMON POTTS Unavailable Unavailable [...] Hmg-Coa Reductase Inhibitors (Statins) Drug Allergy Unknown [facility] (7 sources) ezetimibe drug allergy 04-23-2017 myalgia's [facility] Work Phone: (12 sources) Hmg-Coa Reductase Inhibitors (Statins) drug allergy 01-13-2014 Elevated Liver Enzymes [facility] Work Phone: (12 sources) iodine drug allergy 05-24-2011 Rash [facility] Work Phone: Medications Current Medications Medication Drug [...] tablet by mouth twice daily AMLODIPINE BESYLATE [id number] Luis Martin MD Problems Active Problems Problem Classification Problem Date Documented Date Episodic/Chronic Cardiac dysrhythmias (20 sources) Ventricular tachycardia; Translations: [Premature beats] Onset: 05-24-2011 05-24-2011 Chronic Coronary atherosclerosis and other heart disease (20 sources) Atherosclerotic heart disease of zuni coronary artery without angina pectoris; Translations: [Coronary [...] Episodic Other aftercare (14 sources) Other 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 05-27-2021 14:37-0400 Heart rate 73 /min Shay Cebul Other Phone: [facility] 05-27-2021 14:37-0400 Respiratory rate 18 /min Shay Cebul Other Phone: [facility] 05-27-2021 14:37-0400 Systolic blood pressure 124 mm[Hg] Shay Cebul Other Phone: [facility] 05-27-2021 13:30-0400 SaO2% (BldA) [Mass fraction] 97 % Shay Cebul Other Phone: [facility] 05-27-2021 12:08-0400 Body height 187.9 cm Shay Cebul Other Phone: [facility] 05-27-2021 12:08-0400 Body temperature 99.14 [degF] Shay Cebul Other Phone: [facility] 05-27-2021 12:08-0400 Body weight 90.9 kg Shay Cebul Other Phone: [facility] 05-24-2021 05:30-0400 Diastolic blood pressure 78 mm[Hg] Shay Cebul Other Phone: [facility] 05-24-2021 05:30-0400 Heart rate 90 /min Shay Cebul Other Phone: [facility] 05-24-2021 05:30-0400 Respiratory rate 18 /min Shay Cebul Other Phone: [facility] 05-24-2021 05:30-0400 SaO2% (BldA) [Mass fraction] 95 % Shay Cebul Other Phone: [facility] 05-24-2021 05:30-0400 Systolic blood pressure 130 mm[Hg] Shay Cebul Other Phone: [facility] 08-05-2017 15:22-0400 BMI (Body Mass Index) 27.47 kg/m2 [facility] Work Phone: 08-05-2017 15:22-0400 BP Diastolic 70 mm[Hg] [facility] Work Phone: 08-05-2017 15:22-0400 BP Systolic 122 mm[Hg] Angela Hernandez RN [facility] Work Phone: 08-05-2017 15:22-0400 Height 187.96 cm Angela Hernandez RN [facility] Work Phone: 08-05-2017 15:22-0400 Pulse [...] Chart Update Shay Del Rosario Work Phone: [facility] Work Phone: Start: 02-14-2022 Chart Update Shay Del Rosario Work Phone: [facility] [facility] Work Phone: Start: 05-27-2021 End: 05-27-2021 Emergency department patient visit Cy Watkinstelma [facility] Emergency 16 Start: 05-24-2021 End: 05-24-2021 Emergency department patient visit Tommy Horn [facility] Emergency 16 Start: 11-08-2017 End: 11-11-2017 Evaluation and management of inpatient DOLORES FrancosiIvan WANG Facility:A Start: 10-30-2017 End: 11-01-2017 Evaluation [...] End: 03-13-2017 Follow Up Appt 6 months uLis Martin MD Work Phone: Start: 01-23-2017 End: [...] PA-C Work Phone: Start: 09-27-2014 End: 01-04-2015 [facility] Dayanna Mercedes PA-C Work Phone: Start: 09-27-2014 End: 09-27-2014 Prgrmng dev eval implantable in persn 1 ld dfb Dayanna Mercedes PA-C Work Phone: Start: 09-27-2014 End: 01-04-2015 Follow Up Appt 3 months Dayanna fernández PA-C Work Phone: Start: 09-27-2014 End: 09-27-2014 Icd device prog eval, 1 sngl Dayanna Mercedes PA-C Work Phone: Start: 09-27-2014 End: 01-04-2015 [facility] Dayanna Mercedes PA-C Work Phone: Start: 06-01-2014 End: 01-04-2015 Follow Up Appt 3 months Dayanna fernández PA-C Work Phone: Start: 06-01-2014 End: 01-04-2015 [facility] Dayanna Mercedes PA-C Work Phone: Start: [...] End: 01-12-2013 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 eval remote 90 d 1/2/phlebotomist associate ld dfmanda Ramos MD Start: 01-12-2013 End: [...] End: 04-28-2012 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 eval remote 90 d 1/2/phlebotomist associate ld dfb Yevgeniy Ramos MD Start: 04-20-2012 [...] 6 months Follow Up Appt 6 months [facility] Work Phone: Start: 08-05-2017 End: 08-05-2017 Follow Up BP Check Follow Up BP Check [facility] Work Phone: Start: 08-05-2017 End: 08-05-2017 Pacer Clinic [facility] Work Phone: Start: 07-28-2017 End: 07-28-2017 Appointment Appointment [facility] Work Phone: Start: 07-28-2017 End: 07-28-2017 Appointment Appointment [facility] Work Phone: Start: 07-08-2017 End: 07-28-2017 *Hepatic Function Panel *Hepatic Function Panel [facility] Work Phone: Start: 07-08-2017 End: 07-28-2017 Lipid 1996 panel *Lipid Profile CC PCP [facility] Work Phone: Start: 07-08-2017 End: 07-28-2017 *Hepatic Function Panel *Hepatic Function Panel [facility] Work Phone: Start: 07-08-2017 End: 07-28-2017 Lipid panel [AGGREGATE] *Lipid Profile CC PCP [facility] Work Phone: Start: 03-10-2017 End: 04-03-2017 *Hepatic Function Panel *Hepatic Function Panel [facility] Work Phone: Start: 03-10-2017 End: 04-03-2017 Lipid 1996 panel *Lipid Profile CC PCP [facility] Work Phone: Start: 03-10-2017 End: 04-03-2017 *Hepatic Function Panel *Hepatic Function Panel [facility] Work Phone: Start: 03-10-2017 End: 04-03-2017 Lipid panel [AGGREGATE] *Lipid Profile CC PCP [facility] Work Phone: Start: 01-23-2017 End: 01-23-2017 GERALD DUARTE [facility] Work Phone: Start: 01-23-2017 End: 01-23-2017 Ecg routine ecg w/least 12 lds w/i&r EKG (In office) [facility] Work Phone: Start: 01-23-2017 End: 01-23-2017 Echocardiography Echocardiogram (complete) [facility] Work Phone: Start: 01-23-2017 End: 03-13-2017 Follow Up Appt 6 months Follow Up Appt 6 months [facility] Work Phone: Start: 01-23-2017 End: 01-23-2017 Follow Up BP Check Follow Up BP Check [facility] Work Phone: Start: 01-23-2017 End: 03-13-2017 Pacer Clinic [facility] Work Phone: Start: 01-23-2017 End: 01-23-2017 GERALD DUARTE [facility] Work Phone: Start: 01-23-2017 End: 03-13-2017 Echocardiography Echocardiogram (complete) [facility] Work Phone: Start: 01-23-2017 End: 01-23-2017 Electrocardiogram, complete EKG (In office) [facility] Work Phone: Start: 01-23-2017 End: 03-13-2017 Follow Up Appt 6 months Follow Up Appt 6 months [facility] Work Phone: Start: 01-23-2017 End: 01-23-2017 Follow Up BP Check Follow Up BP Check [facility] Work Phone: Start: 01-23-2017 End: 03-13-2017 Pacer Clinic Pacer Clinic [facility] Work Phone: Start: 12-16-2016 End: 01-22-2017 *Hepatic Function Panel *Hepatic Function Panel [facility] Work Phone: Start: 12-16-2016 End: 01-22-2017 Lipid 1996 panel *Lipid Profile CC PCP [facility] Work Phone: Start: 12-16-2016 End: 01-22-2017 *Hepatic Function Panel *Hepatic Function Panel [facility] Work Phone: Start: 12-16-2016 End: 01-22-2017 Lipid panel [AGGREGATE] *Lipid Profile CC PCP [facility] Work Phone: Start: 11-27-2015 End: 12-16-2016 *Hepatic Function Panel *Hepatic Function Panel [facility] Work Phone: Start: 11-27-2015 [...] 3 months Follow Up Appt 3 months [facility] Work Phone: Start: 01-09-2015 End: 02-16-2015 Pacer Clinic Pac[facility] Clinic [facility] Work Phone: Start: 01-09-2015 End: 02-16-2015 Follow Up Appt 3 months Follow Up Appt 3 months [facility] Work Phone: Start: 01-09-2015 End: 02-16-2015 Pacer Clinic Pacer Clinic [facility] Work Phone: Start: 09-27-2014 End: 01-04-2015 Follow Up Appt 3 months Follow Up Appt 3 months [facility] Work Phone: Start: 09-27-2014 End: 01-04-2015 Pacer Clinic Pacer Clinic [facility] Work Phone: Start: 09-27-2014 End: 01-04-2015 Follow Up Appt 3 months Follow Up Appt 3 months [facility] Work Phone: Start: 09-27-2014 End: 01-04-2015 Pacer Clinic [facility] Clinic [facility] Work Phone: Start: 06-01-2014 End: 01-04-2015 Follow Up Appt 3 months Follow Up Appt 3 months [facility] Work Phone: Start: 06-01-2014 End: 01-04-2015 Pacer Clinic Pacer Clinic [facility] Work Phone: Start: 06-01-2014 End: 01-04-2015 Follow Up Appt 3 months Follow Up Appt 3 months [facility] Work Phone: Start: 06-01-2014 End: 01-04-2015 Pacer Clinic [facility] Clinic [facility] Work Phone: Start: 01-13-2014 End: 03-07-2014 *Hepatic Function Panel *Hepatic Function Panel [facility] Work Phone: Start: 01-13-2014 End: 01-13-2014 DJN DJN [facility] Work Phone: Start: 01-13-2014 End: 01-13-2014 Follow Up Appt 1 year Follow Up Appt 1 year [facility] Work Phone: Start: 01-13-2014 End: 01-13-2014 Follow Up Appt 3 months Follow Up Appt 3 months [facility] Work Phone: Start: 01-13-2014 End: 03-07-2014 Lipid 1996 panel *Lipid Profile CC PCP [facility] Work Phone: Start: 01-13-2014 End: 01-13-2014 Pacer Clinic Pacer Clinic [facility] Work Phone: Start: 01-13-2014 End: 03-07-2014 *Hepatic Function Panel *Hepatic Function Panel [facility] Work Phone: Start: 01-13-2014 End: 01-13-2014 DJN DJN [facility] Work Phone: Start: 01-13-2014 End: 01-13-2014 Follow Up Appt 1 year Follow Up Appt 1 year [facility] Work Phone: Start: 01-13-2014 End: 01-13-2014 Follow Up Appt 3 months Follow Up Appt 3 months [facility] Work Phone: Start: 01-13-2014 End: 03-07-2014 Lipid panel [AGGREGATE] *Lipid Profile CC PCP [facility] Work Phone: Start: 01-13-2014 End: 01-13-2014 Pacer Clinic Pac[facility] Clinic [facility] Work Phone: Start: 12-02-2013 End: 12-29-2013 *Hepatic Function Panel *Hepatic Function Panel [facility] Work Phone: Start: 12-02-2013 End: 12-29-2013 Lipid 1996 panel *Lipid Profile CC PCP [facility] Work Phone: Start: 12-02-2013 End: 12-29-2013 *Hepatic Function Panel *Hepatic Function Panel [facility] Work Phone: Start: 12-02-2013 [...] Lipid panel [AGGREGATE] *Lipid Profile CC PCP [facility] Work Phone: Start: 05-21-2013 End: 12-29-2013 Follow Up Appt 3 months Follow Up Appt 3 months [facility] Work Phone: Start: 05-21-2013 End: 12-29-2013 Pacer Clinic Pacer Clinic [facility] Work Phone: Start: 05-21-2013 End: [...] 02-17-2013 End: 12-29-2013 Pacer Clinic Pacer Clinic [facility] Work Phone: Start: 02-17-2013 End: 12-29-2013 Follow Up Appt 3 months Follow Up Appt 3 months [facility] Work Phone: Start: 02-17-2013 End: 12-29-2013 Pacer Clinic Pacer Clinic [facility] Work Phone: Start: 10-13-2012 End: 10-13-2012 Follow Up Appt 6 months Follow Up Appt 6 months [facility] Work Phone: Start: 10-13-2012 End: 10-13-2012 Follow Up Appt 6 months Follow Up Appt 6 months [facility] Work Phone: Start: 04-20-2012 End: 04-28-2012 *BMP *BMP [facility] Work Phone: Start: 04-20-2012 End: 04-28-2012 *CBC with Differential *CBC with Differential [facility] Work Phone: Start: 04-20-2012 End: 09-22-2012 *Hepatic Function Panel *Hepatic Function Panel [facility] Work Phone: Start: 04-20-2012 End: 04-20-2012 Follow Up Appt 6 months Follow Up Appt 6 months [facility] Work Phone: Start: 04-20-2012 End: 10-13-2012 Lipid 1996 panel *Lipid Profile [facility] Work Phone: Start: 04-20-2012 End: 10-13-2012 Magnesium mass conc *Magnesium [facility] Work Phone: Start: 04-20-2012 End: 04-28-2012 *BMP *BMP [facility] Work Phone: Start: 04-20-2012 End: [...] End: 10-13-2012 Lipid panel [AGGREGATE] *Lipid Profile [facility] Work Phone: Start: 04-20-2012 End: 10-13-2012 Magnesium *Magnesium [facility] Work Phone: Patient Education HEART%20HEALTHY%20DIET [facility] Work Phone: Payers Date Payer Category Payer Unknown [id number] Unknown Social History Date Type Detail Facility [facility] Tobacco smoking consumption unknown [facility] Clinical Note 04-10-2021 Note Date & Type Note Facility 04-10-2021 Note Patient Outreach ([place] [facility]) FRANCIS MORTON ([id number]) 1955 M Date Time Provider Department 04/10/21 [...] tests Date Reviewed: 09/04/2020 Reviewed by: Ngozi ([facility]) AINSLEY Patrick - Fully Assessed Visit Diagnoses:Medication management [Z79.899] Hyperlipidemia LDL goal <100 [E78.5] Order(s):BASIC METABOLIC PNL [SQBMP] Order #: [id number] FUTURE LIPID PANEL BASIC [SQLIPB] Order #: [id number] FUTURE TSH BLD [SQTSH] Order #: [id number] FUTURE CBC [SQCBC] Order #: [id number] FUTURE AST/SGOT BLD [SQAST] Order #: [id number] FUTURE ALT/SGPT [SQALT] Order #: [id number] FUTURE MAGNESIUM BLD [SQMG1] Order #: [id number] FUTURE Prescriptions as of 04/10/2021 Sig: MELOXICAM [...] abuse [F10.10] 10/16/2012 06/23/2013 Alcoholism /alcohol abuse [QHT9355] 06/23/2013 Tobacco abuse [Z72.0] 10/31/2014 Paroxysmal atrial fibrillation (HCC) [I48.0] 11/13/2017 Hyperlipidemia LDL goal <100 [E78.5] 11/13/2017 Physical debility [R53.81] 12/17/2019 Situational depression [F43.21] 12/17/2019 Generalized anxiety disorder with panic attacks*09/04/2020 Dysfunctional grieving [F43.21] 09/04/2020 Encounter Status:Closed by JANNETH CHACON on 04/13/21 [facility] Summary Purpose Family History No Family [...] DATE CREATED AUTHOR AUTHOR'S ORGANIZ ATION 12/18/2021 [facility] DATE CREATED AUTHOR AUTHOR'S ORGANIZ ATION 05/15/2022 [facility] <item><item> Privacy Markings (unrecogniz ed section [...] BE BASED ON THE PRIMARY CLINICAL RECORDS. [facility] [employer] [facility]. provides no warranty or guarantee of the accuracy or completeness of information in this document.
--- NOTE | 2023-12-22 20:44 | HP.PCM_ITS ---
[facility] - General General Date of Admission: 12/22/23 Date of Service: 12/22/23 Chief Complaint: Abdominal pain HPI Narrative FRANCIS MORTON, is a 68 M who presents with chief complaint of left lower quadrant abdominal pain. Patient is a poor historian sent in from a senior living facility and has difficulty speaking clearly and has a diagnosis of failure to thrive. CBC is remarkable for an elevated white blood cell count of 16,000, CT scan is positive for left lower quadrant colitis. The patient denies any chest pain, shortness of breath or fevers or chills at present time and states his abdominal pain has improved since arriving into the emergency room. It is questionable how reliable and informant the patient is. CT scan also revealed an area of the pancreas that may be consistent with pancreatitis therefore lipase was pending at the time of my evaluation. Patient will be admitted to general medical floor for observation with IV fluids and started on Cipro and Flagyl to treat colitis. PENDING SALE TO [facility] Medical History (Updated 12/22/23 @ 20:[address] 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 Essential hypertension Femoral neck fracture Former tobacco use Frequent falls History of alcoholism Hyperlipidemia Hyponatremia Incontinence of feces Incontinence of urine Ischemic cardiomyopathy Non-pressure chronic ulcer of other part of right foot with fat layer exposed Physical debility Pulmonary nodule Stage 1 mild COPD by GOLD classification Syndrome of inappropriate ADH (SIADH) secretion Tinea unguium Unable to ambulate Ventricular tachycardia Home Medications amiodarone 200 mg tablet 200 mg PO BID HEART RHYTHM 05/25/22 [History Last Taken Unknown] clopidogrel 75 mg tablet 75 mg PO DAILY 05/25/22 [History Last Taken Unknown] metoprolol succinate 25 mg tablet,extended release 24 hr 12.5 mg PO DAILY BP 0 05/25/22 [History Last Taken Unknown] paroxetine HCl 20 mg tablet 30 mg PO DAILY 05/25/22 [History Last Taken Unknown] albuterol sulfate 2.5 mg/3 mL (0.083 %) solution for nebulization 2.5 mg (3 mL) inhalation Q2H PRN PRN Shortness of Breath/Wheezing #0 mL 06/06/22 [Rx Last Taken Unknown] loperamide 2 mg capsule 2 mg PO Q6H PRN loose stool 08/19/23 [History Last Taken Unknown] meloxicam 15 mg tablet 15 mg PO DAILY 08/19/23 [History Last Taken Unknown] trazodone 100 mg tablet 125 mg PO QHS 08/19/23 [History Last Taken Unknown] Lactobacillus acidophilus 10 billion cell capsule (Probiotic) 10,000 mmu cells PO DAILY #10 caps 10/05/23 [Rx Last Taken Unknown] acetaminophen 325 mg tablet 650 mg PO Q4H pain 10/05/23 [History Last Taken Unknown] doxycycline monohydrate 100 mg capsule 100 mg PO BID #14 CAPSULES 10/05/23 [Rx Last Taken Unknown] lactulose 10 gram/15 mL oral solution 15 ml PO BID 10/05/23 [History Last Taken Unknown] sodium chloride 1,000 mg soluble tablet 1,000 mg PO DAILY 10/05/23 [History Last Taken Unknown] Allergy/AdvReac Type Severity Reaction Status Date / Time Iodine and Iodide Containing Allergy Severe Rash Verified 12/22/23 16:55 Produc ezetimibe [From Zetia] AdvReac Severe Myalgias Verified 12/22/23 16:55 [id number]-[id number] Reductase AdvReac Severe Elevated Verified 12/22/23 16:55 Inhibitor Liver [[id number]-[id number]-[id number] Reductase Enzymes Inhibitor] duloxetine [From Cymbalta] AdvReac Orthostasis Verified 12/22/23 16:55 /hyponatrem ia Family History Grandmother Myocardial infarction Grandfather Myocardial infarction Surgical History History of coronary artery stent placement (02/17/19) History of implantable cardiac defibrillator (ICD) (10/31/17) History of left heart catheterization (LHC) (01/21/19) Hx of knee surgery Hx of total hip arthroplasty Social History housing: senior living number of children: 1 current occupational status: unemployed Smoking Status: Light Smoker (<10/day) how long ago did patient quit smoking: Smokes 2.5 packs per week. alcohol intake: former year quit: 2012 details: Sober 13-14 months. substance use type: other details: Has abused RX Ativan in the past, remains clean. well-balanced diet: other details: says that he gets meals on wheels and they pile upin the refrigerator caffeine: No during the past year weight has: other details: decreased 20 lbs since November what type of physical activity do you participate in: none duration: < 15 minutes/day seatbelt use: always do you feel safe at home: Yes ROS Review of Systems ROS Unobtainable: other Details: Poor historian difficulty understanding his speech Constitutional Constitutional: Denies chills or fever(s) ENT HEENT: Denies abnormal hearing Cardiovascular Cardiovascular: Denies chest pain Respiratory/Chest Respiratory/Chest: Denies cough Gastrointestinal Gastrointestinal: Reports abdominal pain Genitourinary Genitourinary: Denies dysuria Musculoskeletal Musculoskeletal: Denies back pain Psychiatric Psychiatric: Denies anxiety Vital Signs Vital Signs Vital Signs: 12/22/23 16:50 12/22/23 17:30 12/22/23 18:17 Temperature 97.2 F L Temperature Source Temporal Pulse Rate 82 84 Respiratory Rate 18 17 Respiratory Effort Normal Non-Labored Respiratory Pattern Normal Blood Pressure 122/80 H 120/77 Blood Pressure Mean 94 91 Pulse Ox 96 99 12/22/23 19:00 Temperature Temperature Source Pulse Rate 86 Respiratory Rate 20 H Respiratory Effort Respiratory Pattern Blood Pressure 124/84 H Blood Pressure Mean 97 Pulse Ox Weight Weight: 164 lb 0.383 oz Body Mass Index (BMI) 21.0 Physical Exam Const alert General Appearance: cooperative HEENT normocephalic and head/scalp atraumatic Eyes PERRL Neck no lymphadenopathy Lymph Lymphatic: no lymphadenopathy noted Resp normal respiratory effort, normal air movement and clear to auscultation bilater ally Cardio regular rate, regular rhythm, S1 normal heart sound and S2 normal heart sound GI normal to inspection, nondistended, normoactive bowel sounds and soft to palpation GI Narrative: Mild left lower quadrant tenderness with no guarding Skin General Skin Exam: no breakdown Neuro Motor Exam: general weakness Psych cooperative Results Lab / Micro Data 12/22/23 17:30 12/22/23 17:30 Labs: Laboratory Results - last 24 hr 12/22/23 17:30: WBC 16.0 H, RBC 4.92, Hgb 15.2, Hct 45.3, MCV 92.1, MCH 30.9, MCHC 33.6, RDW Std Deviation 51.1 H, RDW Coeff of [place] 15.3 H, Plt Count 338, MPV 10.9, Immature Gran % (Auto) 0.700, Neut % (Auto) 70.2 H, Lymph % (Auto) 16.8 L, [place] % (Auto) 9.7, Eos % (Auto) 2.1, Baso % (Auto) 0.5, Absolute Neuts (auto) 11.3 H, Absolute Lymphs (auto) 2.69, Nucleated RBC % 0, Differential Comment SCANNED, Sodium 142, Potassium 3.5, Chloride 111 H, Carbon Dioxide 27.0, Anion Gap 4 L, BUN 16, Creatinine 0.47 L, Estim Creat Clear Calc 94.29, Est GFR (MDRD) Af Amer 230, Est GFR (MDRD) Non-Af 190, BUN/Creatinine Ratio 34.2 H, Glucose 123 H, Calcium 8.4 L, Total Bilirubin 1.00, AST 110 H, ALT 64 H, Alkaline Phosphatase 181 H, Troponin I High Sens 15, Total Protein 5.5 L, Albumin 2.2 L, Globulin 3.3, Albumin/Globulin Ratio 0.7 L 12/22/23 18:15: Ammonia < 10.0 L, Urine Color [place], Urine Clarity Clear, Urine pH 5.0, Ur Specific [place] 1.015, Urine Protein 30 H, Urine Glucose (UA) Normal, Urine Ketones 5 H, Urine Occult Blood 10 H, Urine Nitrite Negative, Urine Bilirubin 3 H, Urine Urobilinogen 4 H, Ur Leukocyte Esterase 25 H, Urine RBC 0 SEEN, Urine WBC 0-5 SEEN, Ur Squamous Epith Cells 0 SEEN, Urine Bacteria 0 SEEN, Urine Mucus RARE Micro: Microbiology 12/22/23 18:10 Mucosa - Nasopharyngeal SARS-CoV-2, Influenza & RSV (PCR) - Final Imaging Radiology Impression Chest X-Ray 12/22/23 17:57 IMPRESSION: Mildly displaced fractures of the eighth and ninth ribs..Possible tiny left pleural effusion Electronically Signed: Zhao Mcallister MD at 18:21 EST Reading Location ID and State: [facility] / [place] Tel , Service support , Abdomen/Pelvis CT 12/22/23 18:24 IMPRESSION: Mildly prominent liver and spleen Massive abdominopelvic ascites possibly due to hepatocellular disease. Multifocal thickening of the [place] of the distal descending and sigmoid colon possibly representing colitis however clinical correlation is recommended. There is relatively hypoattenuated appearance to the head of the pancreas possibly representing focal pancreatitis Other findings as above Electronically Signed: Zhao Mcallister MD at 19:22 EST , Brain CT 12/22/23 18:24 IMPRESSION: Atrophy and periventricular white matter ischemic change. No acute bleed. If concern for acute infarct MRI recommended. Electronically Signed: Zhao Mcallister MD at 19:00 EST , Assessment & Plan Assessment/Plan (1) Leg weakness: (2) Cognitive dysfunction, alcohol-related: (3) History of implantable cardiac defibrillator (ICD): (4) History of coronary artery stent placement: (5) Essential hypertension: (6) Hyperlipidemia: QUALIFIERS: Hyperlipidemia type: unspecified Qualified Code(s): E78.5 - Hyperlipidemia, unspecified (7) Colitis: PLAN: Plan 1 abdominal pain with colitis?admit patient to general medical floor for observation, IV normal saline at a rate of 100 cc/h, repeat CBC, CMP and lipase in a.m., continue Cipro and Flagyl initiated in the emergency room 2. Hypertension?continue routine home medications 3. Hyperlipidemia?continue statin 4. History of cognitive dysfunction secondary to alcohol abuse?patient is presumably at his baseline but is poor historian at best at this time 5. DVT prophylaxis?low molecular weight heparin Charges/Coding Visit Charges OBSV E&M: [id number] Observ/hosp same date L2
--- OUTSIDE RECORDS SUMMARY | 2023-12-22 21:16 | XMS RPT_ITS | CCD ---
Author Name Unknown Address [address] [place] [address] Organization [facility] Care Team Providers Care Gis Analyst Name Role Phone MD Naga, Luis Augustin Unavailable [phone] GONGORA, Simona Marrufo Unavailable Unavailable [...] III Unavailable Unavailable DOLORES WANG Unavailable Unavailable ARMON POTTS Unavailable Unavailable FRANCISCO MARTIN Unavailable Unavailable FATEMHE NAJERA Unavailable Unavailable JIM PARHAMMAN Unavailable Unavailable [...] Hmg-Coa Reductase Inhibitors (Statins) Drug Allergy Unknown [facility] (7 sources) ezetimibe drug allergy 04-23-2017 myalgia's [facility] Work Phone: (12 sources) Hmg-Coa Reductase Inhibitors (Statins) drug allergy 01-13-2014 Elevated Liver Enzymes [facility] Work Phone: (12 sources) iodine drug allergy 05-24-2011 Rash [facility] Work Phone: Medications Current Medications Medication Drug [...] tablet by mouth twice daily AMLODIPINE BESYLATE [id number] Luis Martin MD Problems Active Problems Problem Classification Problem Date Documented Date Episodic/Chronic Cardiac dysrhythmias (20 sources) Ventricular tachycardia; Translations: [Premature beats] Onset: 05-24-2011 05-24-2011 Chronic Coronary atherosclerosis and other heart disease (20 sources) Atherosclerotic heart disease of [place] coronary artery without angina pectoris; Translations: [Coronary [...] 05-24-2011 Episodic Other aftercare (14 sources) 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; Translations: [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] Onset: 05-24-2011 05-24-2011 Episodic Other nutritional; endocrine; and metabolic disorders (12 sources) Body mass index (BMI) 27.0-27.9, adult; Translations: [Body mass index (BMI) 27.0-27.9, adult] Onset: 01-23-2017 01-23-2017 Episodic Results Test Name Value Interpretation Reference Range Facil ity Vital Signs Date Time Vital Sign Value Performing Clinician Facility 05-27-2021 14:37-0400 Diastolic blood pressure 68 mm[Hg] Shay Cebul Other Phone: [facility] 05-27-2021 14:37-0400 Heart rate 73 /min Shay Cebul Other Phone: [facility] 05-27-2021 14:37-0400 Respiratory rate 18 /min Shay Cebul Other Phone: [facility] 05-27-2021 14:37-0400 Systolic blood pressure 124 mm[Hg] Shay Cebul Other Phone: [facility] 05-27-2021 13:30-0400 SaO2% (BldA) [Mass fraction] 97 % Shay Cebul Other Phone: [facility] 05-27-2021 12:08-0400 Body height 187.9 cm Shay Cebul Other Phone: [facility] 05-27-2021 12:08-0400 Body temperature 99.14 [degF] Shay Cebul Other Phone: [facility] 05-27-2021 12:08-0400 Body weight 90.9 kg Shay Cebul Other Phone: [facility] 05-24-2021 05:30-0400 Diastolic blood pressure 78 mm[Hg] Shay Cebul Other Phone: [facility] 05-24-2021 05:30-0400 Heart rate 90 /min Shay Cebul Other Phone: [facility] 05-24-2021 05:30-0400 Respiratory rate 18 /min Shay Cebul Other Phone: [facility] 05-24-2021 05:30-0400 SaO2% (BldA) [Mass fraction] 95 % Shay Cebul Other Phone: [facility] 05-24-2021 05:30-0400 Systolic blood pressure 130 mm[Hg] Shay Cebul Other Phone: [facility] 08-05-2017 15:22-0400 BMI (Body Mass Index) 27.47 kg/m2 [facility] Work Phone: 08-05-2017 15:22-0400 BP Diastolic 70 mm[Hg] [facility] Work Phone: 08-05-2017 15:22-0400 BP Systolic 122 mm[Hg] Angela Hernandez RN [facility] Work Phone: 08-05-2017 15:22-0400 Height 187.96 cm Angela Hernandez RN [facility] Work Phone: 08-05-2017 15:22-0400 Pulse [...] 01-23-2017 14:07-0400 BP Systolic 114 mm[Hg] [facility] Work Phone: 01-23-2017 14:07-0400 Height [...] Chart Update Shay Del Rosario Work Phone: [employer] [facility] Work Phone: Start: 02-14-2022 Chart Update Shay Del Rosario Work Phone: [employer] [facility] Work Phone: Start: 05-27-2021 End: 05-27-2021 Emergency department patient visit Cy Watkinstelma [facility] Emergency 16 Start: 05-24-2021 End: 05-24-2021 Emergency department patient visit Tommy Horn [facility] Emergency 16 Start: 11-08-2017 End: 11-11-2017 [...] PA-C Work Phone: Start: 09-27-2014 End: 01-04-2015 [facility] Dayanna Mercedes PA-C Work Phone: Start: 09-27-2014 End: 09-27-2014 Prgrmng dev eval implantable in persn 1 ld dfb Dayanna Mercedes PA-C Work Phone: Start: 09-27-2014 End: 01-04-2015 Follow Up Appt 3 months Dayanna fernández PA-C Work Phone: Start: 09-27-2014 End: 09-27-2014 Icd device prog eval, 1 sngl Dayanna Mercedes PA-C Work Phone: Start: 09-27-2014 End: 01-04-2015 [facility] Dayanna Mercedes PA-C Work Phone: Start: 06-01-2014 End: 01-04-2015 Follow Up Appt 3 months Dayanna fernández PA-C Work Phone: Start: 06-01-2014 End: 01-04-2015 [facility] Dayanna Mercedes PA-C Work Phone: Start: [...] Icd device prog eval, 1 sngl Patricio Gylnn MD Start: 05-21-2013 End: 12-29-2013 Pacer Clinic Patricoi Glynn MD Start: 02-17-2013 End: 12-29-2013 Follow [...] End: 01-12-2013 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 eval remote 90 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/2/computer installer ld dfmanda Ramos MD Start: 01-12-2013 End: [...] End: 04-28-2012 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 eval remote 90 d 1/2/computer installer ld dfb Yevgeniy Ramos MD Start: 04-20-2012 [...] 6 months Follow Up Appt 6 months [facility] Work Phone: Start: 08-05-2017 End: 08-05-2017 Follow Up BP Check Follow Up BP Check [facility] Work Phone: Start: 08-05-2017 End: 08-05-2017 Pac[facility] Clinic [facility] Work Phone: Start: 07-28-2017 End: 07-28-2017 Appointment Appointment [facility] Work Phone: Start: 07-28-2017 End: 07-28-2017 Appointment Appointment [facility] Work Phone: Start: 07-08-2017 End: 07-28-2017 *Hepatic Function Panel *Hepatic Function Panel [facility] Work Phone: Start: 07-08-2017 End: 07-28-2017 Lipid 1996 panel *Lipid Profile CC PCP [facility] Work Phone: Start: 07-08-2017 End: 07-28-2017 *Hepatic Function Panel *Hepatic Function Panel [facility] Work Phone: Start: 07-08-2017 End: 07-28-2017 Lipid panel [AGGREGATE] *Lipid Profile CC PCP [facility] Work Phone: Start: 03-10-2017 End: 04-03-2017 *Hepatic Function Panel *Hepatic Function Panel [facility] Work Phone: Start: 03-10-2017 End: 04-03-2017 Lipid 1996 panel *Lipid Profile CC PCP [facility] Work Phone: Start: 03-10-2017 End: 04-03-2017 *Hepatic Function Panel *Hepatic Function Panel [facility] Work Phone: Start: 03-10-2017 End: 04-03-2017 Lipid panel [AGGREGATE] *Lipid Profile CC PCP [facility] Work Phone: Start: 01-23-2017 End: 01-23-2017 GERALD DUARTE [facility] Work Phone: Start: 01-23-2017 End: 01-23-2017 Ecg routine ecg w/least 12 lds w/i&r EKG (In office) [facility] Work Phone: Start: 01-23-2017 End: 01-23-2017 Echocardiography Echocardiogram (complete) [employer] [facility] Work Phone: Start: 01-23-2017 End: 03-13-2017 Follow Up Appt 6 months Follow Up Appt 6 months [employer] [facility] Work Phone: Start: 01-23-2017 End: 01-23-2017 Follow Up BP Check Follow Up BP Check [facility] Work Phone: Start: 01-23-2017 End: 03-13-2017 Pac[facility] Clinic [facility] Work Phone: Start: 01-23-2017 End: 01-23-2017 GERALD DUARTE [employer] [facility] Work Phone: Start: 01-23-2017 End: 03-13-2017 Echocardiography Echocardiogram (complete) [facility] Work Phone: Start: 01-23-2017 End: 01-23-2017 Electrocardiogram, complete EKG (In office) [facility] Work Phone: Start: 01-23-2017 End: 03-13-2017 Follow Up Appt 6 months Follow Up Appt 6 months [facility] Work Phone: Start: 01-23-2017 End: 01-23-2017 Follow Up BP Check Follow Up BP Check [facility] Work Phone: Start: 01-23-2017 End: 03-13-2017 Pacer Clinic Pac[facility] Clinic [facility] Work Phone: Start: 12-16-2016 End: 01-22-2017 *Hepatic Function Panel *Hepatic Function Panel [facility] Work Phone: Start: 12-16-2016 End: 01-22-2017 Lipid 1996 panel *Lipid Profile CC PCP [facility] Work Phone: Start: 12-16-2016 End: 01-22-2017 *Hepatic Function Panel *Hepatic Function Panel [facility] Work Phone: Start: 12-16-2016 End: 01-22-2017 Lipid panel [AGGREGATE] *Lipid Profile CC PCP [facility] Work Phone: Start: 11-27-2015 End: 12-16-2016 *Hepatic Function Panel *Hepatic Function Panel [facility] Work Phone: Start: 11-27-2015 [...] 3 months Follow Up Appt 3 months [facility] Work Phone: Start: 01-09-2015 End: 02-16-2015 Pacer Clinic [facility] Work Phone: Start: 01-09-2015 End: 02-16-2015 Follow Up Appt 3 months Follow Up Appt 3 months [facility] Work Phone: Start: 01-09-2015 End: 02-16-2015 Pacer Clinic Pac[facility] Clinic [facility] Work Phone: Start: 09-27-2014 End: 01-04-2015 Follow Up Appt 3 months Follow Up Appt 3 months [facility] Work Phone: Start: 09-27-2014 End: 01-04-2015 Pacer Clinic Pac[facility] Clinic [facility] Work Phone: Start: 09-27-2014 End: 01-04-2015 Follow Up Appt 3 months Follow Up Appt 3 months [facility] Work Phone: Start: 09-27-2014 End: 01-04-2015 Pacer Clinic [facility] Work Phone: Start: 06-01-2014 End: 01-04-2015 Follow Up Appt 3 months Follow Up Appt 3 months [facility] Work Phone: Start: 06-01-2014 End: 01-04-2015 Pacer Clinic Pacer Clinic [facility] Work Phone: Start: 06-01-2014 End: 01-04-2015 Follow Up Appt 3 months Follow Up Appt 3 months [facility] Work Phone: Start: 06-01-2014 End: 01-04-2015 Pacer Clinic [facility] Clinic [facility] Work Phone: Start: 01-13-2014 End: 03-07-2014 *Hepatic Function Panel *Hepatic Function Panel [facility] Work Phone: Start: 01-13-2014 End: 01-13-2014 DJN DJN [facility] Work Phone: Start: 01-13-2014 End: 01-13-2014 Follow Up Appt 1 year Follow Up Appt 1 year [facility] Work Phone: Start: 01-13-2014 End: 01-13-2014 Follow Up Appt 3 months Follow Up Appt 3 months [facility] Work Phone: Start: 01-13-2014 End: 03-07-2014 Lipid 1996 panel *Lipid Profile CC PCP [facility] Work Phone: Start: 01-13-2014 End: 01-13-2014 Pacer Clinic Pacer Clinic [facility] Work Phone: Start: 01-13-2014 End: 03-07-2014 *Hepatic Function Panel *Hepatic Function Panel [facility] Work Phone: Start: 01-13-2014 End: 01-13-2014 DJN DJN [facility] Work Phone: Start: 01-13-2014 End: 01-13-2014 Follow Up Appt 1 year Follow Up Appt 1 year [facility] Work Phone: Start: 01-13-2014 End: 01-13-2014 Follow Up Appt 3 months Follow Up Appt 3 months [facility] Work Phone: Start: 01-13-2014 End: 03-07-2014 Lipid panel [AGGREGATE] *Lipid Profile CC PCP [facility] Work Phone: Start: 01-13-2014 End: 01-13-2014 Pacer Clinic [facility] Work Phone: Start: 12-02-2013 End: 12-29-2013 *Hepatic Function Panel *Hepatic Function Panel [facility] Work Phone: Start: 12-02-2013 End: 12-29-2013 Lipid 1996 panel *Lipid Profile CC PCP [facility] Work Phone: Start: 12-02-2013 End: 12-29-2013 *Hepatic Function Panel *Hepatic Function Panel [facility] Work Phone: Start: 12-02-2013 [...] Lipid panel [AGGREGATE] *Lipid Profile CC PCP [facility] Work Phone: Start: 05-21-2013 End: 12-29-2013 Follow Up Appt 3 months Follow Up Appt 3 months [facility] Work Phone: Start: 05-21-2013 End: 12-29-2013 Pacer Clinic Pacer Clinic [facility] Work Phone: Start: 05-21-2013 End: [...] 02-17-2013 End: 12-29-2013 Pacer Clinic Pacer Clinic [facility] Work Phone: Start: 02-17-2013 End: 12-29-2013 Follow Up Appt 3 months Follow Up Appt 3 months [facility] Work Phone: Start: 02-17-2013 End: 12-29-2013 Pacer Clinic Pacer Clinic [facility] Work Phone: Start: 10-13-2012 End: 10-13-2012 Follow Up Appt 6 months Follow Up Appt 6 months [facility] Work Phone: Start: 10-13-2012 End: 10-13-2012 Follow Up Appt 6 months Follow Up Appt 6 months [facility] Work Phone: Start: 04-20-2012 End: 04-28-2012 *BMP *BMP [facility] Work Phone: Start: 04-20-2012 End: 04-28-2012 *CBC with Differential *CBC with Differential [facility] Work Phone: Start: 04-20-2012 End: 09-22-2012 *Hepatic Function Panel *Hepatic Function Panel [facility] Work Phone: Start: 04-20-2012 End: 04-20-2012 Follow Up Appt 6 months Follow Up Appt 6 months [facility] Work Phone: Start: 04-20-2012 End: 10-13-2012 Lipid 1996 panel *Lipid Profile [facility] Work Phone: Start: 04-20-2012 End: 10-13-2012 Magnesium mass conc *Magnesium [facility] Work Phone: Start: 04-20-2012 End: 04-28-2012 *BMP *BMP [facility] Work Phone: Start: 04-20-2012 End: [...] End: 10-13-2012 Lipid panel [AGGREGATE] *Lipid Profile [facility] Work Phone: Start: 04-20-2012 End: 10-13-2012 Magnesium *Magnesium [facility] Work Phone: Patient Education HEART%20HEALTHY%20DIET [facility] Work Phone: Payers Date Payer Category Payer Unknown [id number] Unknown Social History Date Type Detail Facility [facility] Tobacco smoking consumption unknown [facility] Clinical Note 04-10-2021 Note Date & Type Note Facility 04-10-2021 Note Patient Outreach ([place] [facility]) FRANCIS MORTON ([id number]) 1955 M Date Time Provider Department 04/10/21 [...] tests Date Reviewed: 09/04/2020 Reviewed by: Ngozi ([facility]) AINSLEY Patrick - Fully Assessed Visit Diagnoses:Medication management [Z79.899] Hyperlipidemia LDL goal <100 [E78.5] Order(s):BASIC METABOLIC PNL [SQBMP] Order #: [id number] FUTURE LIPID PANEL BASIC [SQLIPB] Order #: [id number] FUTURE TSH BLD [SQTSH] Order #: [id number] FUTURE CBC [SQCBC] Order #: [id number] FUTURE AST/SGOT BLD [SQAST] Order #: [id number] FUTURE ALT/SGPT [SQALT] Order #: [id number] FUTURE MAGNESIUM BLD [SQMG1] Order #: [id number] FUTURE Prescriptions as of 04/10/2021 Sig: MELOXICAM [...] abuse [F10.10] 10/16/2012 06/23/2013 Alcoholism /alcohol abuse [[id number]] 06/23/2013 Tobacco abuse [Z72.0] 10/31/2014 Paroxysmal atrial fibrillation (HCC) [I48.0] 11/13/2017 Hyperlipidemia LDL goal <100 [E78.5] 11/13/2017 Physical debility [R53.81] 12/17/2019 Situational depression [F43.21] 12/17/2019 Generalized anxiety disorder with panic attacks*09/04/2020 Dysfunctional grieving [F43.21] 09/04/2020 Encounter Status:Closed by JANNETH CHACON on 04/13/21 [facility] Summary Purpose Family History No Family [...] AUTHOR AUTHOR'S ORGANIZ ATION 12/18/2021 [facility] DATE CREATED AUTHOR AUTHOR'S ORGANIZ ATION 05/15/2022 [facility] <item><item> Privacy Markings (unrecogniz ed section and [...] BASED ON THE PRIMARY CLINICAL RECORDS. [facility]. provides no warranty or guarantee of the accuracy or completeness of information in this document.
[2023-12-22 21:25] LABS: Lipase 878 U/L (13-75)
[2023-12-22 21:55] VITALS: BP 119/81; PULSE 89; RESP 16; TEMP 37.2; O2SAT 94
[2023-12-22 22:18] VITALS: BMI 20.9
[2023-12-22 22:19] VITALS: BP 118/67; PULSE 88; RESP 18; TEMP 36.7; O2SAT 95
[2023-12-22] MEDS: metroNIDAZOLE 500 MG/100 ML BAG 100 MG IV (22:54)
[2023-12-22] MEDS: 0.9% Normal Saline (1000mL) 1,000 ML 100 ML IV (22:55)
[2023-12-22] MEDS: Nystatin Powder 15gm Bottle 1 APPLIC TOPICAL (22:55)
[2023-12-22] MEDS: Menthol/Lanolin/Calamine/Znox 113 GM Tube 1 APPLIC TOPICAL (22:55)
[2023-12-22] MEDS: traZODone 50 MG Tablet 125 MG PO (23:10)
[2023-12-23] VITALS (8 sets, daily range): BP systolic 111–121; BP diastolic 68–73; PULSE 84–90; RESP 16–18; TEMP 36.5–36.6; O2SAT 93–100
[2023-12-23] MEDS: Ciprofloxacin 200 MG/100 ML BAG 100 MG IV ×3 (00:11→22:53)
[2023-12-23] MEDS: metroNIDAZOLE 500 MG/100 ML BAG 100 MG IV ×3 (05:28→21:49)
[2023-12-23 08:19] LABS: Absolute Lymphocyte Count 2.04 X10^3/uL (0.83-4.51); Absolute Neutrophil Count 10.7 X10^3/uL (2.0-7.7); Basophil# 0.05 X10^3/uL; Basophil% 0.3 % (0-1); Eosinophil# 0.29 X10^3/uL; Hematocrit 40.1 % (40-54); Hemoglobin 13.6 g/dL (13.0-16.5); Lymphocyte # 2.04 X10^3/ul (0.83-4.51); Mean Corp Hgb Conc 33.9 g/dL (32-36); Mean Corpuscular Hgb 31.1 pg (27.0-32.0); Mean Corpuscular Volume 91.8 fL (80-94); Mean Platelet Vol. 10.8 fl (6.2-12.0); Monocyte# 1.41 X10^3/uL; Monocyte% 9.7 % (0-10); NRBC Flagged by Analyzer 0 % (0-5); Neutrophil # 10.67 X10^3/uL (2.7-7.7); Neutrophil % 73.2 % (47-70); Platelet Count 330 K/mm3 (150-450); RBC Distribution Width CV 15.4 % (11.6-14.6); RBC Distribution Width SD 50.7 fl (35.1-43.9); Red Blood Count 4.37 M/mm3 (4.6-6.2); White Blood Count 14.6 K/mm3 (4.4-11.0)
--- NOTE | 2023-12-23 08:46 | WOUNDNOTE ---
wound photo: right medial ankle
--- NOTE | 2023-12-23 08:46 | WOUNDNOTE ---
wound photo: right lateral foot
--- NOTE | 2023-12-23 08:47 | WOUNDNOTE ---
wound photo: right elbow
--- NOTE | 2023-12-23 08:48 | WOUNDNOTE ---
wound photo: buttock/coccyx
[2023-12-23 09:13] LABS: ALB/GLOB Ratio 0.6 RATIO (0.9-2.4); AST(SGOT) 89 U/L (15-37); Alanine Aminotransfer ALT/SGPT 51 U/L (16-61); Albumin, Serum 1.9 g/dL (3.2-5.0); Alkaline Phosphatase 157 U/L (45-117); Anion Gap 5 (5-15); BUN 15 mg/dL (7-18); BUN/Creat Ratio 46.2 RATIO (10-20); Calcium,Total 7.9 mg/dL (8.5-10.1); Chloride 113 mmol/L (98-107); Creatinine, Serum 0.32 mg/dL (0.70-1.30); EST Glomerular Filtration Rate 289 mL/min (>60); Est Glom Filt Rate - Afr Amer 350 mL/min (>60); Estimated Creatinine Clearance 88.72 ml/min; Glucose 111 mg/dL (74-106); Potassium 3.4 mmol/L (3.5-5.1); Protein, Total 4.9 g/dL (6.4-8.2); Sodium Level 142 mmol/L (136-145)
--- NOTE | 2023-12-23 09:26 | CASEMGMT ---
Social Work SW called pt's brother Donnell in regard to discharge plan. He confirms is pt's healthcare POA. SW asked him to bring in the documents as able. Pt's brother Donnell confirms the plan would be for pt to return to [facility] at discharge. He would like for him to return under his Medicare so he can get therapy again to build up strength. He explains pt has been there under his Medicaid and has not been getting therapy. ROLANDO explained we will communicate w/[facility] about sending pt back under his Medicare so he can get therapy again. Donnell states understanding. ROLANDO will continue to follow, will ask the d/c surgeon's assistant Tony send updates and [facility] JORDAN [place]
--- NOTE | 2023-12-23 09:38 | PN.HOSP_ITS ---
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) Essential (primary) hypertension (12/22/23) Noninfective gastroenteritis and colitis, unspecified (12/22/23) Other symptoms and signs involving the musculoskeletal system (12/22/23) Presence of coronary angioplasty implant and graft (12/22/23) Presence of automatic (implantable) cardiac defibrillator (12/22/23) Objective Data Objective Data Vital Signs: Vital Signs Temp Pulse Resp BP Pulse Ox O2 Del Method 97.8 F 87 16 121/73 H 93 Room Air 12/23/23 05:32 12/23/23 05:32 12/23/23 05:32 12/23/23 05:32 12/23/23 07:24 12/23/23 07:24 Oxygen Delivery Method Room Air Weight: 154 lb 5.177 oz Body Mass Index (BMI) 20.9 Intake & Output: Intake and Output for Last 24 Hours 12/21/23 12/22/23 12/23/23 23:59 23:59 23:59 Intake Total 1100 / 1100 628.33 / 628.33 Balance 1100 / 1100 628.33 / 628.33 Lab / Micro Data 12/23/23 07:57 12/23/23 07:57 Labs: Laboratory Results - last 24 hr 12/22/23 17:30: WBC 16.0 H, RBC 4.92, Hgb 15.2, Hct 45.3, MCV 92.1, MCH 30.9, MCHC 33.6, RDW Std Deviation 51.1 H, RDW Coeff of Yoli 15.3 H, Plt Count 338, MPV 10.9, Immature Gran % (Auto) 0.700, Neut % (Auto) 70.2 H, Lymph % (Auto) 16.8 L, [place] % (Auto) 9.7, Eos % (Auto) 2.1, Baso % (Auto) 0.5, Absolute Neuts (auto) 11.3 H, Absolute Lymphs (auto) 2.69, Nucleated RBC % 0, Differential Comment SCA NNED, Sodium 142, Potassium 3.5, Chloride 111 H, Carbon Dioxide 27.0, Anion Gap 4 L, BUN 16, Creatinine 0.47 L, Estim Creat Clear Calc 94.29, Est GFR (MDRD) Af Amer 230, Est GFR (MDRD) Non-Af 190, BUN/Creatinine Ratio 34.2 H, Glucose 123 H, Calcium 8.4 L, Total Bilirubin 1.00, AST 110 H, ALT 64 H, Alkaline Phosphatase 181 H, Troponin I High Sens 15, Total Protein 5.5 L, Albumin 2.2 L, Globulin 3.3, Albumin/Globulin Ratio 0.7 L, Lipase 878 H 12/22/23 18:15: Ammonia < 10.0 L, Urine Color [place], Urine Clarity Clear, Urine pH 5.0, Ur Specific [place] 1.015, Urine Protein 30 H, Urine Glucose (UA) Normal, Urine Ketones 5 H, Urine Occult Blood 10 H, Urine Nitrite Negative, Urine Bilirubin 3 H, Urine Urobilinogen 4 H, Ur Leukocyte Esterase 25 H, Urine RBC 0 SEEN, Urine WBC 0-5 SEEN, Ur Squamous Epith Cells 0 SEEN, Urine Bacteria 0 SEEN, Urine Mucus RARE 12/23/23 07:57: WBC 14.6 H, RBC 4.37 L, Hgb 13.6, Hct 40.1, MCV 91.8, MCH 31.1, MCHC 33.9, RDW Std Deviation 50.7 H, RDW Coeff of Yoli 15.4 H, Plt Count 330, MPV 10.8, Immature Gran % (Auto) 0.800, Neut % (Auto) 73.2 H, Lymph % (Auto) 14.0 L, [place] % (Auto) 9.7, Eos % (Auto) 2.0, Baso % (Auto) 0.3, Absolute Neuts (auto) 10.7 H, Absolute Lymphs (auto) 2.04, Nucleated RBC % 0, Sodium 142, Potassium 3.4 L, Chloride 113 H, Carbon Dioxide 24.0, Anion Gap 5, BUN 15, Creatinine 0.32 L, Estim Creat Clear Calc 88.72, Est GFR (MDRD) Af Amer 350, Est GFR (MDRD) Non- Af 289, BUN/Creatinine Ratio 46.2 H, Glucose 111 H, Calcium 7.9 L, Total Biliru bin 0.80, AST 89 H, ALT 51, Alkaline Phosphatase 157 H, Total Protein 4.9 L, Albumin 1.9 L, Globulin 3.0, Albumin/Globulin Ratio 0.6 L Micro: Microbiology 12/22/23 18:10 Mucosa - Nasopharyngeal SARS-CoV-2, Influenza & RSV (PCR) - Final Radiography Diagnostic Testing: Radiology Impression Chest X-Ray 12/22/23 17:57 IMPRESSION: Mildly displaced fractures of the eighth and ninth ribs..Possible tiny left pleural effusion Electronically Signed: Zhao Mcallister MD at 18:21 EST Reading Location ID and State: [facility] / [place] Tel [phone], Service support , Abdomen/Pelvis CT 12/22/23 18:24 IMPRESSION: Mildly prominent liver and spleen Massive abdominopelvic ascites possibly due to hepatocellular disease. Multifocal thickening of the chandler of the distal descending and sigmoid colon possibly representing colitis however clinical correlation is recommended. There is relatively hypoattenuated appearance to the head of the pancreas possibly representing focal pancreatitis Other findings as above Electronically Signed: Zhao Mcallister MD at 19:22 EST Reading Location ID and State: [facility] / [place] Tel [phone], Service support , Brain CT 12/22/23 18:24 IMPRESSION: Atrophy and periventricular white matter ischemic change. No acute bleed. If concern for acute infarct MRI recommended. Electronically Signed: Zhao Mcallister MD at 19:00 EST , Physical Exam Narrative History hard to obtain as he does not remember well and also hard of hearing. History of recent constipation and stool softeners [facility] in the prison. General: Alert, Oriented x3, Cooperative HEENT: Atraumatic, PERRLA, EOMI, Normocephalic Oral: No Gingival or Mucosal Lesions/ Ulcerations Neck: Supple, No JVD, Negative Carotid Bruits Chest wall/Lungs: Air entry diminished in bilateral lung bases. No crepitation/rhonchi Cardiovascular: Regular rate, Regular Rhythm, Normal S1, Normal S2, No M/G/R Abdomen: Bowel Sounds Present, Soft, mild tenderness present in left lower quadrant. : No dysuria. No renal angle tenderness. No suprapubic tenderness. Extremities: No edema, Capillary Refill Less than 3 Seconds Skin: Redness, superficial ulcer buttock and coccyx region, stage II, and right elbow stage I. Decubitus ulcer right medial ankle, right lateral foot stage I near right heel. Musculoskeletal: No Tenderness to Palpation of Joints or Extremities Neurological: Cranial nerves II-XII grossly intact, DTR 2+/4. No acute focal neurological deficit. Psych/Mental Status: Flat affect. Cognitive deficit Assessment & Plan Assessment/Plan (1) Colitis: PLAN: Plan 68-year-old gentleman was brought to ED by paramedics for a complaint of altered mental status from prison with generalized weakness, not eating or drinking much. Patient also complained of left lower quadrant abdominal pain. No fever or vomiting. 1 acute distal descending and sigmoid colitis: Patient has left lower quadrant tenderness. Admitted to medical floor.?On IV fluid. IV antibiotic, Cipro and Flagyl. Monitor clinically. Monitor CBC. 2. Hypertension?continue routine home medications heart rate and blood pressure controlled. 3. Hyperlipidemia?continue statin 4. History of cognitive dysfunction secondary to alcohol abuse and alcohol-rela rosy weakness/neuropathy?patient is presumably at his baseline but is poor historian at best at this time 5. Decubitus ulcer of the coccyx region, right heel: Wound care nurse consulted. Position safe. 5. DVT prophylaxis?low molecular weight heparin Chronic comorbidities include history of ventricular tachycardia on amiodarone, Stage I mild COPD and past history of alcoholism, anxiety and depression and failure to thrive. Clinical Impression(s) from Imaging Studies Chest X-Ray 12/22/23 17:57 IMPRESSION: Mildly displaced fractures of the eighth and ninth ribs..Possible tiny left pleural effusion Abdomen/Pelvis CT 12/22/23 18:24 IMPRESSION: Mildly prominent liver and spleen Massive abdominopelvic ascites possibly due to hepatocellular disease. Multifocal thickening of the chandler of the distal descending and sigmoid colon possibly representing colitis however clinical correlation is recommended. There is relatively hypoattenuated appearance to the head of the pancreas possibly representing focal pancreatitis Other findings as above Brain CT 12/22/23 18:24 IMPRESSION: Atrophy and periventricular white matter ischemic change. No acute bleed. If concern for acute infarct MRI recommended. Electronically Signed: Zhao Mcallister MD at 19:00 EST , Charges/Coding Visit Charges Inpatient E&M: 45963 Subs Hosp L2
[2023-12-23] MEDS: Metoprolol(XL)Succ 25 MG Tablet 12.5 MG PO (09:47)
[2023-12-23] MEDS: Clopidogrel Bisulfate 75 MG Tablet PO (09:48)
[2023-12-23] MEDS: Enoxaparin 40 MG/0.4 ML Syringe SC (09:48)
[2023-12-23] MEDS: Amiodarone 200 MG Tablet PO (09:48)
[2023-12-23] MEDS: PARoxetine 10 MG Tablet 30 MG PO (09:49)
[2023-12-23] MEDS: Nystatin Powder 15gm Bottle 1 APPLIC TOPICAL ×2 (09:50→21:52)
[2023-12-23] MEDS: Menthol/Lanolin/Calamine/Znox 113 GM Tube 1 APPLIC TOPICAL ×2 (09:50→21:53)
[2023-12-23] MEDS: Ensure Plus High Protein 120 ML LIQUID PO ×3 (09:51→18:22)
--- NOTE | 2023-12-23 10:07 | CASEMGMT ---
[facility]. Simona Chandra, Discharge Planning Asst.
[2023-12-23] MEDS: 0.9% Normal Saline (1000mL) 1,000 ML 100 ML IV ×2 (10:21→21:53)
[2023-12-24 02:20] VITALS: BP 118/79; PULSE 89; RESP 16; TEMP 36.5; O2SAT 94
[2023-12-24] MEDS: metroNIDAZOLE 500 MG/100 ML BAG 100 MG IV ×3 (05:25→22:14)
[2023-12-24 08:16] VITALS: O2SAT 94
[2023-12-24 10:11] VITALS: BP 108/62; PULSE 87; RESP 16; TEMP 36.6; O2SAT 93
[2023-12-24] MEDS: Menthol/Lanolin/Calamine/Znox 113 GM Tube 1 APPLIC TOPICAL ×2 (10:30→20:45)
[2023-12-24] MEDS: Ciprofloxacin 200 MG/100 ML BAG 100 MG IV ×2 (10:31→20:48)
[2023-12-24] MEDS: Nystatin Powder 15gm Bottle 1 APPLIC TOPICAL ×2 (10:33→20:50)
[2023-12-24] MEDS: PARoxetine 10 MG Tablet 30 MG PO (10:33)
[2023-12-24] MEDS: Amiodarone 200 MG Tablet PO (10:34)
[2023-12-24] MEDS: Enoxaparin 40 MG/0.4 ML Syringe SC (10:35)
[2023-12-24 10:36] VITALS: PULSE 87
[2023-12-24] MEDS: Metoprolol(XL)Succ 25 MG Tablet 12.5 MG PO (10:36)
[2023-12-24] MEDS: Clopidogrel Bisulfate 75 MG Tablet PO (10:36)
--- NOTE | 2023-12-24 10:43 | CASEMGMT ---
Discharge Planning Updates sent via [facility] to [facility]. Requested precert be submitted. Simona Chandra, Discharge Planning Asst.
[2023-12-24] MEDS: 0.9% Normal Saline (1000mL) 1,000 ML 100 ML IV (13:12)
--- NOTE | 2023-12-24 13:35 | PCM.PN.HOSP ---
Reason for Visit Reason for Visit: Diagnoses Hyperlipidemia, unspecified (12/23/23) Alcohol use, unspecified with alcohol-induced persisting dementia (12/23/23) Essential (primary) hypertension (12/23/23) Noninfective gastroenteritis and colitis, unspecified (12/23/23) Other symptoms and signs involving the musculoskeletal system (12/23/23) Presence of coronary angioplasty implant and graft (12/23/23) Presence of automatic (implantable) cardiac defibrillator (12/23/23) Objective Data Objective Data Vital Signs: Vital Signs Temp Pulse Resp BP Pulse Ox O2 Del Method 97.8 F 87 16 108/62 93 Room Air 12/24/23 10:11 12/24/23 10:36 12/24/23 10:11 12/24/23 10:11 12/24/23 10:11 12/24/23 10:11 Oxygen Delivery Method Room Air Weight: 154 lb 5.177 oz Body Mass Index (BMI) 20.9 Intake & Output: Intake and Output for Last 24 Hours 12/22/23 12/23/23 12/24/23 23:59 23:59 23:59 Intake Total 1100 / 1100 2418.33 / 2418.33 761.67 / 761.67 Balance 1100 / 1100 2418.33 / 2418.33 761.67 / 761.67 Medical Nutrition Assessment Dietitian: Malnutrition Criteria Met Start: 12/23/23 12:12 Freq: Status: Active Protocol: Document 12/23/23 12:12 AG (Rec: 12/23/23 12:12 AG [id number]) Nutrition Malnutrition Evidence of Malnutrition Exists Yes Malnutrition (moderate): Acute Illness/Injury Evidenced By Suboptimal Energy Intake ( Moderate),Physical Changes ( Moderate) Clinical Problem Acute Disease or Injury Related Malnutrition Etiology moderate acute on likely chronic malnutrition related to inadequate energy intake Signs/Symptoms as evidenced by estimated PO intake meeting <75% of estimated energy needs > 1 week, moderate muscle wasting/ fat loss noted in orbital, clavicle, acromion, and temporal areas per physical exam Status Active Problem Recommendation Dietitian Recommendations/Changes Recommend advance diet as tolerated to regular, texture/ consistency modifications as appropriate (currently soft and bite sized), may need WARP [employer] involvement. Continue ensure and Angel as ordered given evidence of malnutrition Lab / Micro Data 12/23/23 07:57 12/23/23 07:57 Micro: Microbiology 12/22/23 18:10 Mucosa - Nasopharyngeal SARS-CoV-2, Influenza & RSV (PCR) - Final Physical Exam Narrative Patient laying on the bed, inattention although eyes open. On further asking, he is not sure about abdominal pain. He said he is moved with bowel yesterday on 12/23 History hard to obtain as he does not remember well and also hard of hearing. History of recent constipation and stool softeners given in the senior living. General: Awake disoriented to time and place. Lethargy cooperative HEENT: Atraumatic, PERRLA, EOMI, Normocephalic Oral: No Gingival or Mucosal Lesions/ Ulcerations Neck: Supple, No JVD, Negative Carotid Bruits Chest wall/Lungs: Air entry diminished in bilateral lung bases. No crepitation/rhonchi Cardiovascular: Regular rate, Regular Rhythm, Normal S1, Normal S2, No M/G/R Abdomen: Bowel Sounds Present, Soft, mild tenderness present in left lower quadrant. : No dysuria. No renal angle tenderness. No suprapubic tenderness. Extremities: No edema, Capillary Refill Less than 3 Seconds Skin: Redness, superficial ulcer buttock and coccyx region, stage II, and right elbow stage I. Decubitus ulcer right medial ankle, right lateral foot stage I near right heel. Musculoskeletal: No Tenderness to Palpation of Joints or Extremities Neurological: Cranial nerves II-XII grossly intact, DTR 2+/4. No acute focal neurological deficit. Psych/Mental Status: Flat affect. Cognitive deficit. Inattention Assessment & Plan Assessment/Plan (1) Colitis: PLAN: Plan 68-year-old gentleman was brought to ED by paramedics for a complaint of altered mental status from senior living with generalized weakness, not eating or drinking much. Patient also complained of left lower quadrant abdominal pain. No fever or vomiting. 1. Acute distal descending and sigmoid colitis: Patient has left lower quadrant tenderness. Admitted to medical floor.?On IV fluid. IV antibiotic, Cipro and Flagyl. Monitor clinically. 12/24: Continue IV antibiotics and fluid. Soft diet easy to chew. 2. Hypertension?continue routine home medications heart rate and blood pressure controlled. 12/24: Blood pressure is controlled. Afebrile. 3. Hyperlipidemia?continue statin 4. History of cognitive dysfunction secondary to alcohol abuse and alcohol-related weakness/neuropathy?patient is presumably at his baseline but is poor historian at best at this time 12/24: Patient is in assisted living. Needs pre-CERT. 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 Decubitus ulcer of the coccyx region, right heel: Wound care nurse consulted. Position safe. DVT prophylaxis?low molecular weight heparin Chronic comorbidities include history of ventricular tachycardia on amiodarone, Stage I mild COPD and past history of alcoholism, cognitive deficit/ anxiety and depression and failure to thrive. Clinical Impression(s) from Imaging Studies Chest X-Ray 12/22/23 17:57 IMPRESSION: Mildly displaced fractures of the eighth and ninth ribs..Possible tiny left pleural effusion Abdomen/Pelvis CT 12/22/23 18:24 IMPRESSION: Mildly prominent liver and spleen Massive abdominopelvic ascites possibly due to hepatocellular disease. Multifocal thickening of the chandler of the distal descending and sigmoid colon possibly representing colitis however clinical correlation is recommended. There is relatively hypoattenuated appearance to the head of the pancreas possibly representing focal pancreatitis Other findings as above Brain CT 12/22/23 18:24 IMPRESSION: Atrophy and periventricular white matter ischemic change. No acute bleed. If concern for acute infarct MRI recommended. Electronically Signed: Zhao Mcallister MD at 19:00 EST , Charges/Coding Visit Charges Inpatient E&M: 27982 Subs Hosp L2
[2023-12-24] MEDS: Ensure Plus High Protein 120 ML LIQUID PO ×3 (14:17→22:14)
[2023-12-24] MEDS: Thiamine Hydrochloride 100 MG Tablet PO (14:21)
[2023-12-24 20:00] VITALS: BP 115/68; PULSE 93; RESP 15; TEMP 36.7; O2SAT 93
[2023-12-24] MEDS: traZODone 50 MG Tablet 125 MG PO (20:45)
[2023-12-24 22:00] VITALS: RESP 15
[2023-12-25 04:00] VITALS: BP 105/50; PULSE 85; RESP 15; TEMP 36.8; O2SAT 96
[2023-12-25] MEDS: metroNIDAZOLE 500 MG/100 ML BAG 100 MG IV ×2 (05:54→14:18)
[2023-12-25 07:26] VITALS: O2SAT 91
[2023-12-25] MEDS: Thiamine Hydrochloride 100 MG Tablet PO (08:34)
[2023-12-25 09:49] VITALS: BP 91/55; PULSE 89; RESP 16; TEMP 36.6; O2SAT 92
[2023-12-25] MEDS: PARoxetine 10 MG Tablet 30 MG PO (10:01)
[2023-12-25] MEDS: Amiodarone 200 MG Tablet PO (10:02)
[2023-12-25] MEDS: Clopidogrel Bisulfate 75 MG Tablet PO (10:03)
[2023-12-25] MEDS: Nystatin Powder 15gm Bottle 1 APPLIC TOPICAL ×2 (10:04→22:29)
[2023-12-25] MEDS: Menthol/Lanolin/Calamine/Znox 113 GM Tube 1 APPLIC TOPICAL ×2 (10:04→22:29)
[2023-12-25] MEDS: Ensure Plus High Protein 120 ML LIQUID PO ×2 (10:13→14:23)
--- NOTE | 2023-12-25 10:21 | PN.HOSP_ITS ---
Reason for Visit Reason for Visit: Diagnoses Hyperlipidemia, unspecified (12/23/23) Alcohol use, unspecified with alcohol-induced persisting dementia (12/23/23) Essential (primary) hypertension (12/23/23) Noninfective gastroenteritis and colitis, unspecified (12/23/23) Other symptoms and signs involving the musculoskeletal system (12/23/23) Presence of coronary angioplasty implant and graft (12/23/23) Presence of automatic (implantable) cardiac defibrillator (12/23/23) Objective Data Objective Data Vital Signs: Vital Signs Temp Pulse Resp BP Pulse Ox O2 Del Method 97.9 F 89 16 91/55 L 92 Room Air 12/25/23 09:49 12/25/23 09:49 12/25/23 09:49 12/25/23 09:49 12/25/23 09:49 12/25/23 09:49 Oxygen Delivery Method Room Air Weight: 154 lb 5.177 oz Body Mass Index (BMI) 20.9 Intake & Output: Intake and Output for Last 24 Hours 12/23/23 12/24/23 12/25/23 23:59 23:59 23:59 Intake Total 2418.33 / 2418.33 1161.67 / 1261.67 300 / 300 Balance 2418.33 / 2418.33 1161.67 / 1261.67 300 / 300 Medical Nutrition Assessment Dietitian: Malnutrition Criteria Met Start: 12/23/23 12:12 Freq: Status: Active Protocol: Document 12/23/23 12:12 AG (Rec: 12/23/23 12:12 AG [id number]) Nutrition Malnutrition Evidence of Malnutrition Exists Yes Malnutrition (moderate): Acute Illness/Injury Evidenced By Suboptimal Energy Intake ( Moderate),Physical Changes ( Moderate) Clinical Problem Acute Disease or Injury Related Malnutrition Etiology moderate acute on likely chronic malnutrition related to inadequate energy intake Signs/Symptoms as evidenced by estimated PO intake meeting <75% of estimated energy needs > 1 week, moderate muscle wasting/ fat loss noted in orbital, clavicle, acromion, and temporal areas per physical exam Status Active Problem Recommendation Dietitian Recommendations/Changes Recommend advance diet as tolerated to regular, texture/ consistency modifications as appropriate (currently soft and bite sized), may need COMMANDING [employer] involvement. Continue ensure and Angel as ordered given evidence of malnutrition Lab / Micro Data 12/23/23 07:57 12/23/23 07:57 Micro: Microbiology 12/22/23 18:10 Mucosa - Nasopharyngeal SARS-CoV-2, Influenza & RSV (PCR) - Final Physical Exam Narrative Patient gets easily agitated, angry. Earlier he refused further labs and also medications. Today I cannot wait for the exam and he said he has still abdominal pain on left more than right lower quadrants. Patient is stated to not move bowel for 2 days although he does not remember well as he has anterograde amnesia/dementia. History hard to obtain as he does not remember well and also hard of hearing. Physical exam General: Awake disoriented to time and place. Does not remember well. HEENT: Atraumatic, PERRLA, EOMI, Normocephalic Oral: No Gingival or Mucosal Lesions/ Ulcerations Neck: Supple, No JVD, Negative Carotid Bruits Chest wall/Lungs: Air entry diminished in bilateral lung bases. No crepitation/rhonchi Cardiovascular: Regular rate, Regular Rhythm, Normal S1, Normal S2, No M/G/R Abdomen: Bowel Sounds Present, Soft, tenderness present on right and left lower quadrants. Mild to moderate distention mainly gas. : No dysuria. No renal angle tenderness. No suprapubic tenderness. Extremities: No edema, Capillary Refill Less than 3 Seconds Skin: Redness, superficial ulcer buttock and coccyx region, stage II, and right elbow stage I. Decubitus ulcer right medial ankle, right lateral foot stage I near right heel. Musculoskeletal: No Tenderness to Palpation of Joints or Extremities Neurological: Cranial nerves II-XII grossly intact, DTR 2+/4. No acute focal neurological deficit. Psych/Mental Status: Flat affect. Cognitive deficit. Inattention Assessment & Plan Assessment/Plan (1) Colitis: PLAN: Plan 68-year-old gentleman was brought to ED by paramedics for a complaint of altered mental status from alf with generalized weakness, not eating or drinking much. Patient also complained of left lower quadrant abdominal pain. No fever or vomiting. 1. Acute distal descending and sigmoid colitis: Patient has left lower quadrant tenderness. Admitted to medical floor.?On IV fluid. IV antibiotic, Cipro and Flagyl. Monitor clinically. 12/24: Continue IV antibiotics and fluid. Soft diet easy to chew. 12/25: Patient still has tenderness and distention. Continue IV antibiotics. Has not moved bowel for 2 days therefore lactulose frequency increased along with adding senna S. 2. Hypertension?continue routine home medications heart rate and blood pressure controlled. 12/24: Blood pressure is controlled. Afebrile. 12/25: Blood pressure on lower side 91/55, 105/50.Patient not on antihypertensive medication but on trazodone. Dose decreased to 100 mg daily. 3. Hyperlipidemia?continue statin 4. History of cognitive dysfunction secondary to alcohol abuse and alcohol- related weakness/neuropathy?patient is presumably at his baseline but is poor historian at best at this time 12/24: Patient is in assisted living. Needs pre-CERT. 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 Decubitus ulcer of the coccyx region, right heel: Wound care nurse consulted. Position safe. DVT prophylaxis?low molecular weight heparin Chronic comorbidities include history of ventricular tachycardia on amiodarone, Stage I mild COPD and past history of alcoholism, cognitive deficit/ anxiety and depression and failure to thrive. Clinical Impression(s) from Imaging Studies Chest X-Ray 12/22/23 17:57 IMPRESSION: Mildly displaced fractures of the eighth and ninth ribs..Possible tiny left pleural effusion Abdomen/Pelvis CT 12/22/23 18:24 IMPRESSION: Mildly prominent liver and spleen Massive abdominopelvic ascites possibly due to hepatocellular disease. Multifocal thickening of the chandler of the distal descending and sigmoid colon possibly representing colitis however clinical correlation is recommended. There is relatively hypoattenuated appearance to the head of the pancreas possibly representing focal pancreatitis Other findings as above Brain CT 12/22/23 18:24 IMPRESSION: Atrophy and periventricular white matter ischemic change. No acute bleed. If concern for acute infarct MRI recommended. Electronically Signed: Zhao Mcallister MD at 19:00 EST , Charges/Coding Visit Charges Inpatient E&M: 50864 Subs Hosp L2
[2023-12-25 10:59] LABS: Absolute Lymphocyte Count 3.06 X10^3/uL (0.83-4.51); Absolute Neutrophil Count 18.6 X10^3/uL (2.0-7.7); Basophil# 0.06 X10^3/uL; Basophil% 0.2 % (0-1); Eosinophil# 0.13 X10^3/uL; Eosinophils% 0.5 % (0-5); Hematocrit 37.7 % (40-54); Hemoglobin 13.3 g/dL (13.0-16.5); Lymphocyte # 3.06 X10^3/ul (0.83-4.51); Lymphocyte % 12.5 % (19-41); Mean Corp Hgb Conc 35.3 g/dL (32-36); Mean Corpuscular Volume 90.6 fL (80-94); Mean Platelet Vol. 11.1 fl (6.2-12.0); Monocyte# 2.46 X10^3/uL; NRBC Flagged by Analyzer 0 % (0-5); POSITIVE DIFFERENTIAL YES; Platelet Count 379 K/mm3 (150-450); RBC Distribution Width CV 15.6 % (11.6-14.6); RBC Distribution Width SD 50.8 fl (35.1-43.9); Red Blood Count 4.16 M/mm3 (4.6-6.2); White Blood Count 24.5 K/mm3 (4.4-11.0)
[2023-12-25 11:12] LABS: Differential Indicated SCAN CRITERIA MET
[2023-12-25 11:17] LABS: Phosphorus 1.2 mg/dL (2.5-4.9)
--- NOTE | 2023-12-25 11:25 | CASEMGMT ---
Social Work SW received a phone call from [facility] with questions regarding request for skilled stay. Questions answered and [facility] indicates pt's case will be sent to medical review. ALEXEI Solis
[2023-12-25 11:27] LABS: Anion Gap 5 (5-15); BUN 19 mg/dL (7-18); Calcium,Total 7.9 mg/dL (8.5-10.1); Chloride 110 mmol/L (98-107); Creatinine, Serum 0.42 mg/dL (0.70-1.30); EST Glomerular Filtration Rate 214 mL/min (>60); Est Glom Filt Rate - Afr Amer 259 mL/min (>60); Estimated Creatinine Clearance 88.72 ml/min; Glucose 113 mg/dL (74-106); Magnesium 1.8 mg/dL (1.6-2.6); Potassium 3.4 mmol/L (3.5-5.1); Sodium Level 137 mmol/L (136-145)
[2023-12-25 13:41] LABS: Differential Comment SCANNED
[2023-12-25 13:42] LABS: Target Cells 1+
[2023-12-25 14:30] VITALS: BP 105/62; PULSE 88; RESP 16; TEMP 36.6; O2SAT 92
[2023-12-25] MEDS: Ciprofloxacin 200 MG/100 ML BAG 100 MG IV ×2 (15:34→22:11)
--- NOTE | 2023-12-25 17:54 | CASEMGMT ---
FRANSISCA CM: Call received from [facility] stating pt's SNF LOC has been denied but a P2P option is being offered. Physician may call at any time but by noon on Friday, 12/26 to option #5. . Dr[address] Linder notified and provided number via Back[employer]. Dom Buckley RN AC
[2023-12-25 22:15] VITALS: BP 117/68; PULSE 81; RESP 20; TEMP 36.4; O2SAT 93
[2023-12-25] MEDS: Acetaminophen 325 MG Tablet 650 MG PO (22:25)
[2023-12-25] MEDS: traZODone 50 MG Tablet 100 MG PO (22:25)
[2023-12-26] VITALS (7 sets, daily range): BP systolic 105–126; BP diastolic 66–75; PULSE 78–88; RESP 18–20; TEMP 36.3–37.1; O2SAT 92–93
[2023-12-26] MEDS: metroNIDAZOLE 500 MG/100 ML BAG 100 MG IV ×4 (00:21→23:49)
[2023-12-26] MEDS: Acetaminophen 325 MG Tablet 650 MG PO (06:23)
--- NOTE | 2023-12-26 08:10 | PCM.PN.HOSP ---
Reason for Visit Reason for Visit: Diagnoses Hyperlipidemia, unspecified (12/23/23) Alcohol use, unspecified with alcohol-induced persisting dementia (12/23/23) Essential (primary) hypertension (12/23/23) Noninfective gastroenteritis and colitis, unspecified (12/23/23) Other symptoms and signs involving the musculoskeletal system (12/23/23) Presence of coronary angioplasty implant and graft (12/23/23) Presence of automatic (implantable) cardiac defibrillator (12/23/23) Subjective Subjective Patient is still complaining of abdominal pain. Objective Data Objective Data Vital Signs: Vital Signs Temp Pulse Resp BP Pulse Ox O2 Del Method 98.8 F 81 20 H 119/72 93 Room Air 12/26/23 06:04 12/26/23 06:04 12/26/23 06:04 12/26/23 06:04 12/26/23 06:04 12/26/23 06:04 Oxygen Delivery Method Room Air Weight: 154 lb 5.177 oz Body Mass Index (BMI) 20.9 Intake & Output: Intake and Output for Last 24 Hours 12/24/23 12/25/23 12/26/23 23:59 23:59 23:59 Intake Total 2161.67 / 2261.67 600 / 600 200 / 200 Balance 2161.67 / 2261.67 600 / 600 200 / 200 Medical Nutrition Assessment Dietitian: Malnutrition Criteria Met Start: 12/23/23 12:12 Freq: Status: Active Protocol: Document 12/23/23 12:12 AG (Rec: 12/23/23 12:12 AG [id number]) Nutrition Malnutrition Evidence of Malnutrition Exists Yes Malnutrition (moderate): Acute Illness/Injury Evidenced By Suboptimal Energy Intake ( Moderate),Physical Changes ( Moderate) Clinical Problem Acute Disease or Injury Related Malnutrition Etiology moderate acute on likely chronic malnutrition related to inadequate energy intake Signs/Symptoms as evidenced by estimated PO intake meeting <75% of estimated energy needs > 1 week, moderate muscle wasting/ fat loss noted in orbital, clavicle, acromion, and temporal areas per physical exam Status Active Problem Recommendation Dietitian Recommendations/Changes Recommend advance diet as tolerated to regular, texture/ consistency modifications as appropriate (currently soft and bite sized), may need CHICKEN HATCHERY HELPER involvement. Continue ensure and Angel as ordered given evidence of malnutrition Lab / Micro Data 12/25/23 10:25 12/25/23 10:25 Labs: Laboratory Results - last 24 hr 12/25/23 10:25: WBC 24.5 H, RBC 4.16 L, Hgb 13.3, Hct 37.7 L, MCV 90.6, MCH 32.0, MCHC 35.3, RDW Std Deviation 50.8 H, RDW Coeff of Yoli 15.6 H, Plt Count 379, MPV 11.1, Immature Gran % (Auto) 0.800, Neut % (Auto) 76.0 H, Lymph % (Auto) 12.5 L, Lasalle % (Auto) 10.0, Eos % (Auto) 0.5, Baso % (Auto) 0.2, Absolute Neuts (auto) 18.6 H, Absolute Lymphs (auto) 3.06, Nucleated RBC % 0, Differential Comment SCANNED, Diff Path Review March, Target Cells 1+, Sodium 137, Potassium 3.4 L, Chloride 110 H, Carbon Dioxide 22.0, Anion Gap 5, BUN 19 H, Creatinine 0.42 L, Estim Creat Clear Calc 88.72, Est GFR (MDRD) Af Amer 259, Est GFR (MDRD) Non-Af 214, BUN/Creatinine Ratio 45.0 H, Glucose 113 H, Calcium 7.9 L, Phosphorus 1.2 L, Magnesium 1.8 Micro: Microbiology 12/22/23 18:10 Mucosa - Nasopharyngeal SARS-CoV-2, Influenza & RSV (PCR) - Final Physical Exam Narrative Patient had large bowel movement yesterday. Initially patient was sleeping and stated and then I came back to examine him. Complain of abdominal pain over right lower quadrant and right upper quadrant. [place] as described below. Confused intermittently, oriented x 2. Physical exam General: Awake disoriented to time. Does not remember well. HEENT: Atraumatic, PERRLA, EOMI, Normocephalic Oral: No Gingival or Mucosal Lesions/ Ulcerations Neck: Supple, No JVD, Negative Carotid Bruits Chest wall/Lungs: Air entry diminished in bilateral lung bases. No crepitation/rhonchi Cardiovascular: Regular rate, Regular Rhythm, Normal S1, Normal S2, No M/G/R Abdomen: Bowel Sounds Present, Soft, tenderness present on right lower and upper quadrants. Mild to moderate distention mainly gas. : No dysuria. No renal angle tenderness. No suprapubic tenderness. Extremities: No edema, Capillary Refill Less than 3 Seconds Skin: Redness, superficial ulcer buttock and coccyx region, stage II, and right elbow stage I. Decubitus ulcer right medial ankle, right lateral foot stage I near right heel. Musculoskeletal: No Tenderness to Palpation of Joints or Extremities. Patient required assistance not moving well. No motivation to walk. Neurological: Cranial nerves II-XII grossly intact, DTR 2+/4. No acute focal neurological deficit. Psych/Mental Status: Flat affect. Cognitive deficit. Inattention Assessment & Plan Assessment/Plan (1) Colitis: PLAN: Plan 68-year-old gentleman was brought to ED by paramedics for a complaint of altered mental status from detention with generalized weakness, not eating or drinking much. Patient also complained of left lower quadrant abdominal pain. No fever or vomiting. 1. Acute distal descending and sigmoid colitis: Patient has left lower quadrant tenderness. Admitted to medical floor.?On IV fluid. IV antibiotic, Cipro and Flagyl. Monitor clinically. 12/24: Continue IV antibiotics and fluid. Soft diet easy to chew. 12/25: Patient still has tenderness and distention. Continue IV antibiotics. Has not moved bowel for 2 days therefore lactulose frequency increased along with adding senna S. 12/26: Patient still has RUQ and RLQ tenderness and distention. Continue IV antibiotics. Add probiotic. 2. Hypertension?continue routine home medications heart rate and blood pressure controlled. 12/24: Blood pressure is controlled. Afebrile. 12/25: Blood pressure on lower side 91/55, 105/50.Patient not on antihypertensive medication but on trazodone. Dose decreased to 100 mg daily. 12/26: Blood pressure 119/72. 3. Hyperlipidemia?continue statin 4. History of cognitive dysfunction secondary to alcohol abuse and alcohol-related weakness/neuropathy?patient is presumably at his baseline but is poor historian at best at this time 12/24: Patient is in assisted living. Needs pre-CERT. 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 I did P2P with Elizabeth Mccullough said that patient is not good for subacute rehab based on not participation in PT, low motivation, chronic mental issues but can call after his colitis or abdominal pain gets better. I think patient does not have motivation to walk or going to rehab or gross cognitive issues. 5. Decubitus ulcer of the coccyx region, right heel: Wound care nurse will is being consulted. Note and wound photos reviewed. Change position. Dressing as per wound nurse. DVT prophylaxis?low molecular weight heparin Chronic comorbidities include history of ventricular tachycardia on amiodarone, Stage I mild COPD and past history of alcoholism, cognitive deficit/ anxiety and depression and failure to thrive. Clinical Impression(s) from Imaging Studies Chest X-Ray 12/22/23 17:57 IMPRESSION: Mildly displaced fractures of the eighth and ninth ribs..Possible tiny left pleural effusion Abdomen/Pelvis CT 12/22/23 18:24 IMPRESSION: Mildly prominent liver and spleen Massive abdominopelvic ascites possibly due to hepatocellular disease. Multifocal thickening of the chandler of the distal descending and sigmoid colon possibly representing colitis however clinical correlation is recommended. There is relatively hypoattenuated appearance to the head of the pancreas possibly representing focal pancreatitis Other findings as above Brain CT 12/22/23 18:24 IMPRESSION: Atrophy and periventricular white matter ischemic change. No acute bleed. If concern for acute infarct MRI recommended. Electronically Signed: Zhao Mcallister MD at 19:00 EST , Charges/Coding Visit Charges Inpatient E&M: 84541 Subs Hosp L2
[2023-12-26] MEDS: Amiodarone 200 MG Tablet PO (10:07)
[2023-12-26] MEDS: Enoxaparin 40 MG/0.4 ML Syringe SC (10:08)
[2023-12-26] MEDS: Metoprolol(XL)Succ 25 MG Tablet 12.5 MG PO (10:10)
[2023-12-26] MEDS: PARoxetine 10 MG Tablet 30 MG PO (10:11)
[2023-12-26] MEDS: Clopidogrel Bisulfate 75 MG Tablet PO (10:12)
[2023-12-26] MEDS: Thiamine Hydrochloride 100 MG Tablet PO (10:12)
[2023-12-26] MEDS: Potassium Chloride Oral Tablet 20 MEQ 40 MEQ PO (10:24)
[2023-12-26] MEDS: Ciprofloxacin 200 MG/100 ML BAG 100 MG IV (10:24)
[2023-12-26] MEDS: Menthol/Lanolin/Calamine/Znox 113 GM Tube 1 APPLIC TOPICAL ×2 (10:25→23:51)
[2023-12-26] MEDS: Nystatin Powder 15gm Bottle 1 APPLIC TOPICAL ×2 (10:33→23:52)
[2023-12-26 11:48] LABS: Absolute Lymphocyte Count 2.25 X10^3/uL (0.83-4.51); Absolute Neutrophil Count 13.9 X10^3/uL (2.0-7.7); Basophil# 0.06 X10^3/uL; Basophil% 0.3 % (0-1); Eosinophil# 0.56 X10^3/uL; Hematocrit 38.2 % (40-54); Hemoglobin 13.1 g/dL (13.0-16.5); Lymphocyte # 2.25 X10^3/ul (0.83-4.51); Lymphocyte % 12.1 % (19-41); Mean Corp Hgb Conc 34.3 g/dL (32-36); Mean Corpuscular Volume 90.3 fL (80-94); Mean Platelet Vol. 10.7 fl (6.2-12.0); Monocyte% 9.1 % (0-10); NRBC Flagged by Analyzer 0 % (0-5); Neutrophil # 13.85 X10^3/uL (2.7-7.7); Neutrophil % 74.4 % (47-70); POSITIVE DIFFERENTIAL YES; Platelet Count 381 K/mm3 (150-450); RBC Distribution Width CV 15.7 % (11.6-14.6); RBC Distribution Width SD 50.5 fl (35.1-43.9); Red Blood Count 4.23 M/mm3 (4.6-6.2); White Blood Count 18.6 K/mm3 (4.4-11.0)
[2023-12-26 11:52] LABS: Differential Indicated SCAN CRITERIA MET
[2023-12-26 12:36] LABS: Anion Gap 5 (5-15); BUN 19 mg/dL (7-18); BUN/Creat Ratio 55.9 RATIO (10-20); Calcium,Total 7.7 mg/dL (8.5-10.1); Chloride 108 mmol/L (98-107); Creatinine, Serum 0.34 mg/dL (0.70-1.30); EST Glomerular Filtration Rate 274 mL/min (>60); Est Glom Filt Rate - Afr Amer 332 mL/min (>60); Estimated Creatinine Clearance 88.72 ml/min; Glucose 122 mg/dL (74-106); Potassium 2.8 mmol/L (3.5-5.1); Sodium Level 138 mmol/L (136-145)
[2023-12-26 13:19] LABS: Pathologist Review Reviewed
[2023-12-26 13:54] LABS: Differential Comment SCANNED
--- NOTE | 2023-12-26 14:16 | CASEMGMT ---
Social Work Physician completed peer to peer and denial upheld. 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 SW attempted to call pt's brother. No answer and VM not set up. SW will continue to attempt to notify of insurance denial. Plan: Return to [facility], when medically ready ALEXEI Solis
[2023-12-26] MEDS: BMX LIQUID 180 ML 20 ML PO (14:33)
[2023-12-26] MEDS: Ondansetron 4 MG/2 ML Vial IV (14:38)
[2023-12-26] MEDS: traZODone 50 MG Tablet 100 MG PO (23:54)
[2023-12-27] MEDS: Ciprofloxacin 200 MG/100 ML BAG 100 MG IV (00:58)
[2023-12-27 06:48] VITALS: BP 126/83; PULSE 87; RESP 20; TEMP 36.6; O2SAT 93
[2023-12-27] MEDS: metroNIDAZOLE 500 MG/100 ML BAG 100 MG IV (06:52)
[2023-12-27 10:44] VITALS: BP 111/65; PULSE 89; RESP 18; TEMP 36.6; O2SAT 93
[2023-12-27] MEDS: Thiamine Hydrochloride 100 MG Tablet PO (10:51)
[2023-12-27] MEDS: BMX LIQUID 180 ML 20 ML PO (10:52)
[2023-12-27] MEDS: Menthol/Lanolin/Calamine/Znox 113 GM Tube 1 APPLIC TOPICAL (10:53)
[2023-12-27] MEDS: Nystatin Powder 15gm Bottle 1 APPLIC TOPICAL (10:57)
[2023-12-27] MEDS: Clopidogrel Bisulfate 75 MG Tablet PO (10:57)
[2023-12-27] MEDS: PARoxetine 10 MG Tablet 30 MG PO (10:58)
--- NOTE | 2023-12-27 11:29 | CASEMGMT ---
Addendum entered by Kate Kerns 12/27/23 13:42: Social Work SW tried pt's brother Donnell once more, he did answer. SW let him know pt going back today to [facility]. SW explained we did try to get him skilled but insurance denied. Pt's brother asked what is going on w/pt medically. SW explained will see if the doctor can call him. SW texted physician and requested he call pt. JORDAN Morataya Addendum entered by Kate Krens 12/27/23 12:34: Social Work SW called pt's brother again, he answered but was speaking w/someone else, SW attempted to speak w/him and he did not respond. SW called him again and got his voicemail again where a message cannot be left. JORDAN Morataya Original Note: Social Work SW did attempt to call pt's brother, however he did not answer and his voicemail is not set up. JORDAN Morataya
--- NOTE | 2023-12-27 12:29 | TREXTCAR_ITS ---
Diet Diet Order/Speech Therapy: 12/24/23 13:41 Diet: Transitional Food consistency:: Soft & Bite Sized Liquid Consistency:: Regular/Thin Type of Dietary Supplement:: Angel w/ B&D Is pt able to select menu?: No Diet Comments: 1998 jenna Routine Orders/Code Status Suppository Type: Dulcolax 10mg Suppository Frequency: Daily PRN Wound(s) coccyx: Wound Type: Pressure Injury rt outer foot: Wound Type: small calloused area she heels: Wound Type: Pressure Injury RT medial ankle: Wound Type: Pressure Injury right buttock: Wound Type: Pressure Injury right elbow: Wound Type: Pressure Injury Dressing Change: applied elbow protector Therapies Weight Bearing: Weight bearing as tolerated Extremity Affected:: Bilateral Lower Physical Therapy: Eval and Treat Occupational Therapy: Eval and Treat Speech Therapy: Eval and Treat Problem/Diagnosis (1) Colitis: Status: Acute Code(s): K52.9 - Noninfective gastroenteritis and colitis, unspecified Plan 68-year-old gentleman was brought to ED by paramedics for a complaint of altered [facility] status [facility] with generalized weakness, not eating or drinking much. Patient also complained of left lower quadrant abdominal pain. No fever or vomiting. 1. Acute distal descending and sigmoid colitis: Patient has left lower quadrant tenderness. Admitted to medical floor.?On IV fluid. IV antibiotic, Cipro and Flagyl. Monitor clinically. 12/24: Continue IV antibiotics and fluid. Soft diet easy to chew. 12/25: Patient still has tenderness and distention. Continue IV antibiotics. Has not moved bowel for 2 days therefore lactulose frequency increased along with adding senna S. 12/26: Patient still has RUQ and RLQ tenderness and distention. Continue IV antibiotics. Add probiotic. 12/27: Patient discharged on antibiotics. 2. Hypertension?continue routine home medications heart rate and blood pressure controlled. 12/24: Blood pressure is controlled. Afebrile. 12/25: Blood pressure on lower side 91/55, 105/50.Patient not on antihypertensive medication but on trazodone. Dose decreased to 100 mg daily. 12/26: Blood pressure 119/72. 3. Hyperlipidemia?continue statin 4. History of cognitive dysfunction secondary to alcohol abuse and alcohol-related weakness/neuropathy?patient is presumably at his baseline but is poor historian at best at this time 12/24: Patient is in assisted living. Needs pre-CERT. 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 I did P2P with Elizabeth Mccullough said that patient is not good for subacute rehab based on not participation in PT, low motivation, chronic mental issues but can call after his colitis or abdominal pain gets better. I think patient does not have motivation to walk or going to rehab or gross cognitive issues. 5. Decubitus ulcer of the coccyx region, right heel: Wound care nurse will is being consulted. Note and wound photos reviewed. Change position. Dressing as per wound nurse. DVT prophylaxis?low molecular weight heparin Chronic comorbidities include history of ventricular tachycardia on amiodarone, Stage I mild COPD and past history of alcoholism, cognitive deficit/ anxiety and depression and failure to thrive. Clinical Impression(s) from Imaging Studies Chest X-Ray 12/22/23 17:57 IMPRESSION: Mildly displaced fractures of the eighth and ninth ribs..Possible tiny left pleural effusion Abdomen/Pelvis CT 12/22/23 18:24 IMPRESSION: Mildly prominent liver and spleen Massive abdominopelvic ascites possibly due to hepatocellular disease. Multifocal thickening of the chandler of the distal descending and sigmoid colon possibly representing colitis however clinical correlation is recommended. There is relatively hypoattenuated appearance to the head of the pancreas possibly representing focal pancreatitis Other findings as above Brain CT 12/22/23 18:24 IMPRESSION: Atrophy and periventricular white matter ischemic change. No acute bleed. If concern for acute infarct MRI recommended. Electronically Signed: Zhao Mcallister MD at 19:00 [facility] Reading Location ID and State: [facility] / [place] Tel , Service support , Allergies/Procedures Done in Hospital Allergies Iodine and Iodide Containing Produc Allergy (Severe, Verified 12/22/23 16:55) Rash ezetimibe [From Zetia] Adverse Reaction (Severe, Verified 12/22/23 16:55) Myalgias Llaenaa-VMF-VvV Reductase Inhibitor [Zxwtiem-Cea-Thk Reductase Inhibitor] Adverse Reaction (Severe, Verified 12/22/23 16:55) Elevated Liver Enzymes duloxetine [From Cymbalta] Adverse Reaction (Verified 12/22/23 16:55) Orthostasis/hyponatremia Type of Care/Length of Stay Estimated LOS: Convalescent Care Less Than 30 days Type of Care Needed: Intermediate Rehab Potential: Fair Prognosis: Fair Additional Orders/Day of Discharge Day of Discharge: 12/27/23 Dietary and Speech Recommendations Dietitian Recommendations/Changes: Recommend advance diet as tolerated to regular, texture/consistency modifications as appropriate (currently soft and bite sized), may need BUSINESS ACCOUNT LEADER involvement. Continue ensure and Angel as ordered given evidence of malnutrition Discharge Plan Admission Admit Date/Time: 12/23/23 14:18 Primary Reason for Your Visit: Infectious colitis. Attending Provider: Sunny Linder Primary Care Provider: Rashard Gandhi Consulting Providers: Gautam Deleon Instructions Additional Instructions / Restrictions: Hold trazodone for 3 days while patient is on antibiotics Cipro and Flagyl to avoid drug drug interaction. Discharge Orders/Prescriptions Prescriptions: New trazodone 50 mg Tablet 100 mg PO QHS Qty: 0 0RF sennosides-docusate sodium [Stool Softener-Stimulant Laxat] 8.6-50 mg Tablet 2 tab PO BID Qty: 0 0RF lidocaine HCl [Lidocaine Viscous] 2 % Solution 20 ml PO Q4H Qty: 0 0RF Rx Instructions: For 7 days. thiamine HCl (vitamin B1) [Vitamin B-1] 100 mg Tablet 100 mg PO BREAKFAST Qty: 0 0RF nystatin [Nyamyc] 100,000 unit/gram Powder 1 applic topical BID Qty: 0 0RF Protocol: *Topical Application Instructions APPLICATION INSTRUCTIONS: groin ciprofloxacin HCl [Cipro] 500 mg tablet 500 mg PO BID 3 Days Qty: 6 0RF metronidazole 500 mg tablet 500 mg PO Q8H 3 Days Qty: 9 0RF Continued amiodarone 200 mg tablet 200 mg PO Q24H clopidogrel 75 mg tablet 75 mg PO DAILY paroxetine HCl 20 mg tablet 30 mg PO QHS metoprolol succinate 25 mg tablet extended release 24 hr 12.5 mg PO DAILY albuterol sulfate 2.5 mg /3 mL (0.083 %) Solution For Nebulization 2.5 mg inhalation Q2H PRN PRN (Reason: Shortness of Breath/Wheezing) Qty: 0 0RF acetaminophen 325 mg tablet 650 mg PO Q4H PRN (Reason: pain) sodium chloride 1,000 mg tablet,soluble 1,000 mg PO DAILY Probiotic 10 billion cell capsule 10,000 mmu cells PO DAILY Qty: 10 0RF furosemide 20 mg tablet 20 mg PO DAILY alum-mag hydroxide-simeth [Alcira-Lanta] 200-200-20 mg/5 mL suspension 15 ml PO Q4H PRN (Reason: indigestion) trolamine salicylate [Pain Relief (trolamine salicy)] 10 % cream 1 applic TOPICAL BID Patient Comments: unknown if taking, not on medication reconcillation promethazine 12.5 mg tablet 12.5 mg PO Q6H PRN (Reason: nausea and vomiting) prevagen 20 mg PO DAILY Changed potassium chloride 20 mEq tablet,ER particles/crystals 40 meq PO DAILY 30 Days Qty: 0 0RF lactulose 10 gram/15 mL solution 15 ml PO 4X/DAY 30 Days Qty: 0 0RF Patient Comments: 30mL orally daily at 1000 Rx Instructions: Goal to have 2-3 soft bowel movements per day Discontinued meloxicam 15 mg tablet 15 mg PO DAILY Patient Comments: TAKE 1 TABLET BY MOUTH DAILY trazodone 100 mg tablet 150 mg PO QHS Patient Comments: Take 1 tablet by mouth at bedtime Referrals / Follow Up: Rashard Gandhi MD [Primary Care Provider] - Disposition Disposition (needs filled in before D/C Order can be placed): NonSkilled NH/Intermed Care
--- NOTE | 2023-12-27 12:40 | PCM.DC.SUM ---
Providers Date of Admission: 12/23/23 Date of Discharge: 12/27/23 Primary Care Physician: Dr. Rashard Gandhi MD Consultations 12/22/23 22:22 Consult: Onc/Wound/sagger preparer Routine Comment: Reason for Consult:: open area on coccyx. pt from [facility] Reason For Visit: ABDOMINAL PAIN, COLITIS Diagnosis Discharge Diagnosis (1) Colitis: Status: Acute Code(s): K52.9 - Noninfective gastroenteritis and colitis, unspecified Plan 68-year-old gentleman was brought to ED by paramedics for a complaint of altered mental status from retirement with generalized weakness, not eating or drinking much. Patient also complained of left lower quadrant abdominal pain. No fever or vomiting. 1. Acute distal descending and sigmoid colitis: Patient has left lower quadrant tenderness. Admitted to medical floor.?On IV fluid. IV antibiotic, Cipro and Flagyl. Monitor clinically. 12/24: Continue IV antibiotics and fluid. Soft diet easy to chew. 12/25: Patient still has tenderness and distention. Continue IV antibiotics. Has not moved bowel for 2 days therefore lactulose frequency increased along with adding senna S. 12/26: Patient still has RUQ and RLQ tenderness and distention. Continue IV antibiotics. Add probiotic. 12/27: Patient discharged on antibiotics. Discharged on 3 more days of Cipro and Flagyl. Advised to hold trazodone while patient is on Cipro and Flagyl to avoid drug drug interaction. 2. Hypertension?continue routine home medications heart rate and blood pressure controlled. 12/24: Blood pressure is controlled. Afebrile. 12/25: Blood pressure on lower side 91/55, 105/50.Patient not on antihypertensive medication but on trazodone. Dose decreased to 100 mg daily. 12/26: Blood pressure 119/72. 3. Hyperlipidemia?continue statin 4. History of cognitive dysfunction secondary to alcohol abuse and alcohol-related weakness/neuropathy?patient is presumably at his baseline but is poor historian at best at this time 12/24: Patient is in assisted living. Needs pre-CERT. 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 I did P2P with Elizabeth Mccullough said that patient is not good for subacute rehab based on not participation in PT, low motivation, chronic mental issues but can call after his colitis or abdominal pain gets better. I think patient does not have motivation to walk or going to rehab or gross cognitive issues. 12/27: Lactulose dose increased, 10 g every 6 hours. Goal to have 2-3 soft bowel movements per day. 5. Decubitus ulcer of the coccyx region, right heel: Wound care nurse will is being consulted. Note and wound photos reviewed. Change position. Dressing as per wound nurse. Recommend changing position and foam bed. DVT prophylaxis?low molecular weight heparin Chronic comorbidities include history of ventricular tachycardia on amiodarone, Stage I mild COPD and past history of alcoholism, cognitive deficit/ anxiety and depression and failure to thrive. I talked to the patient's brother, Mr. Donnell Paulino who is listed as next of kin. Patient is stated that he paid about $30,000 in retirement for his care and wanted subacute rehab. I said I talked to him [employer] insurance doctor as an appeal and advocate for P2P for refusal to subacute rehab but it was denied. Patient does not have initiative to move. Not motivated but just sleeps on the bed. I also informed that if he starts moving around and shows interest, Iit can be appealed and chest to subacute rehab through retirement case supervisor. Discharge medication reconciliation done. Discharge follow-up instructions completed. Discharge process discussed with the patient and all questions were answered to patient's satisfaction. Follow with PCP in 1 to 2 weeks Total time spent, exact 35 minutes on discharge meds reconciliation, examination, coordination of care with nurses and ancillary staff, review of imaging and blood test and discussion with the patient on follow-up instructions. Clinical Impression(s) from Imaging Studies Chest X-Ray 12/22/23 17:57 IMPRESSION: Mildly displaced fractures of the eighth and ninth ribs..Possible tiny left pleural effusion Abdomen/Pelvis CT 12/22/23 18:24 IMPRESSION: Mildly prominent liver and spleen Massive abdominopelvic ascites possibly due to hepatocellular disease. Multifocal thickening of the chandler of the distal descending and sigmoid colon possibly representing colitis however clinical correlation is recommended. There is relatively hypoattenuated appearance to the head of the pancreas possibly representing focal pancreatitis Other findings as above Brain CT 12/22/23 18:24 IMPRESSION: Atrophy and periventricular white matter ischemic change. No acute bleed. If concern for acute infarct MRI recommended. Electronically Signed: Zhao Mcallister MD at 19:00 EST , Medications at Discharge Home Medications amiodarone 200 mg tablet 200 mg PO Q24H HEART RHYTHM 05/25/22 clopidogrel 75 mg tablet 75 mg PO DAILY blood thinner 05/25/22 metoprolol succinate 25 mg tablet,extended release 24 hr 12.5 mg PO DAILY BP 05/25/22 paroxetine HCl 20 mg tablet 30 mg PO QHS depression 05/25/22 albuterol sulfate 2.5 mg/3 mL (0.083 %) solution for nebulization 2.5 mg (3 mL) inhalation Q2H PRN PRN Shortness of Breath/Wheezing #0 mL 06/06/22 Lactobacillus acidophilus 10 billion cell capsule (Probiotic) 10,000 mmu cells PO DAILY stomach #10 caps 10/05/23 acetaminophen 325 mg tablet 650 mg PO Q4H PRN pain 10/05/23 sodium chloride 1,000 mg soluble tablet 1,000 mg PO DAILY mineral 10/05/23 aluminum-mag hydroxide-simethicone 200 mg-200 mg-20 mg/5 mL oral susp (Alcira-Lanta) 15 ml PO Q4H PRN indigestion 12/22/23 furosemide 20 mg tablet 20 mg PO DAILY chf 12/22/23 prevagen 20 mg PO DAILY vitamin deficiency 12/22/23 promethazine 12.5 mg tablet 12.5 mg PO Q6H PRN nausea and vomiting 12/22/23 trolamine salicylate 10 % topical cream (Pain Relief (trolamine salicylate)) 1 applic topical BID pain 12/22/23 ciprofloxacin HCl 500 mg tablet (Cipro) 500 mg PO BID 3 days #6 tabs 12/27/23 lactulose 10 gram/15 mL oral solution 15 ml PO 4X/DAY hypo- osmolaity 30 days #0 mL 12/27/23 lidocaine HCl 2 % mucosal solution (Lidocaine Viscous) 20 ml PO Q4H #0 mL 12/27/23 metronidazole 500 mg tablet 500 mg PO Q8H 3 days #9 tabs 12/27/23 nystatin 100,000 unit/gram topical powder (Nyamyc) 1 applic topical BID #0 grams 12/27/23 potassium chloride 20 mEq tablet,extended release(part/cryst) 40 meq (2 x 20 mEq) PO DAILY mineral 30 days #0 tabs 12/27/23 sennosides 8.6 mg-docusate sodium 50 mg tablet (Stool Softener-Stimulant Laxative) 2 tab PO BID #0 tabs 12/27/23 thiamine HCl (vitamin B1) 100 mg tablet (Vitamin B-1) 100 mg PO BREAKFAST #0 tabs 12/27/23 trazodone 50 mg tablet 100 mg (2 x 50 mg) PO QHS #0 tabs 12/27/23 Physical Exam Narrative Patient had large bowel movement yesterday. Initially patient was sleeping and stated and then I came back to examine him. Complain of abdominal pain over right lower quadrant and right upper quadrant. [place] as described below. Confused intermittently, oriented x 2. Physical exam General: Awake oriented to place and person. Does not remember well. HEENT: Atraumatic, PERRLA, EOMI, Normocephalic Oral: Oral mucosa sore and red probably from dryness. Neck: Supple, No JVD, Negative Carotid Bruits Chest wall/Lungs: Air entry diminished in bilateral lung bases. No crepitation/rhonchi Cardiovascular: Regular rate, Regular Rhythm, Normal S1, Normal S2, No M/G/R Abdomen: Bowel Sounds Present, Soft, tenderness present on right lower and upper quadrants. Mild to moderate distention mainly gas. : No dysuria. No renal angle tenderness. No suprapubic tenderness. Extremities: No edema, Capillary Refill Less than 3 Seconds Skin: Redness, superficial ulcer buttock and coccyx region, stage II, and right elbow stage I. Decubitus ulcer right medial ankle, right lateral foot stage I near right heel. Musculoskeletal: No Tenderness to Palpation of Joints or Extremities. Patient required assistance not moving well. No motivation to walk. Neurological: Cranial nerves II-XII grossly intact, DTR 2+/4. No acute focal neurological deficit. Psych/Mental Status: Flat affect. Cognitive deficit. Anterograde amnesia. Inattention Medical Records Data Medical Nutrition Assessment Dietitian: Malnutrition Criteria Met Start: 12/23/23 12:12 Freq: Status: Active Protocol: Document 12/26/23 11:02 AG (Rec: 12/26/23 11:02 AG Tablet) Nutrition Malnutrition Evidence of Malnutrition Exists Yes Malnutrition (moderate): Acute Illness/Injury Evidenced By Suboptimal Energy Intake ( Moderate),Physical Changes ( Moderate) Clinical Problem Acute Disease or Injury Related Malnutrition Etiology moderate acute on likely chronic malnutrition related to inadequate energy intake Signs/Symptoms as evidenced by estimated PO intake meeting <75% of estimated energy needs > 1 week, moderate muscle wasting/ fat loss noted in orbital, clavicle, acromion, and temporal areas per physical exam Status Active Problem Recommendation Dietitian Recommendations/Changes Recommend advance diet as tolerated to regular, texture/ consistency modifications as appropriate (currently soft and bite sized), may need WATERSHED MANAGER involvement. Continue ensure and Angel as ordered given evidence of malnutrition Weight / BMI Weight Weight: 154 lb 5.177 oz Body Mass Index (BMI) 20.9 ABG / Lab / Microbiology Data 12/26/23 11:23 12/26/23 11:23 Laboratory: Laboratory Results - last 24 hr 12/25/23 10:25: Diff Path Review Reviewed 12/26/23 11:23: Differential Comment SCANNED, Diff Path Review May foll Microbiology: Microbiology 12/22/23 18:10 Mucosa - Nasopharyngeal SARS-CoV-2, Influenza & RSV (PCR) - Final Meaningful Use Info Meaningful Use Diagnoses (Choose all that apply): None applicable Discharge Plan Admission Admit Date/Time: 12/23/23 14:18 Primary Reason for Your Visit: Infectious colitis. Attending Provider: Sunny Linder Primary Care Provider: Rashard Gandhi Consulting Providers: Gautam Deleon Instructions Additional Instructions / Restrictions: Hold trazodone for 3 days while patient is on antibiotics Cipro and Flagyl to avoid drug drug interaction. Discharge Orders/Prescriptions Prescriptions: New trazodone 50 mg Tablet 100 mg PO QHS Qty: 0 0RF sennosides-docusate sodium [Stool Softener-Stimulant Laxat] 8.6-50 mg Tablet 2 tab PO BID Qty: 0 0RF lidocaine HCl [Lidocaine Viscous] 2 % Solution 20 ml PO Q4H Qty: 0 0RF Rx Instructions: For 7 days. thiamine HCl (vitamin B1) [Vitamin B-1] 100 mg Tablet 100 mg PO BREAKFAST Qty: 0 0RF nystatin [Nyamyc] 100,000 unit/gram Powder 1 applic topical BID Qty: 0 0RF Protocol: *Topical Application Instructions APPLICATION INSTRUCTIONS: groin ciprofloxacin HCl [Cipro] 500 mg tablet 500 mg PO BID 3 Days Qty: 6 0RF metronidazole 500 mg tablet 500 mg PO Q8H 3 Days Qty: 9 0RF Continued amiodarone 200 mg tablet 200 mg PO Q24H clopidogrel 75 mg tablet 75 mg PO DAILY paroxetine HCl 20 mg tablet 30 mg PO QHS metoprolol succinate 25 mg tablet extended release 24 hr 12.5 mg PO DAILY albuterol sulfate 2.5 mg /3 mL (0.083 %) Solution For Nebulization 2.5 mg inhalation Q2H PRN PRN (Reason: Shortness of Breath/Wheezing) Qty: 0 0RF acetaminophen 325 mg tablet 650 mg PO Q4H PRN (Reason: pain) sodium chloride 1,000 mg tablet,soluble 1,000 mg PO DAILY Probiotic 10 billion cell capsule 10,000 mmu cells PO DAILY Qty: 10 0RF furosemide 20 mg tablet 20 mg PO DAILY alum-mag hydroxide-simeth [Alcira-Lanta] 200-200-20 mg/5 mL suspension 15 ml PO Q4H PRN (Reason: indigestion) trolamine salicylate [Pain Relief (trolamine salicy)] 10 % cream 1 applic TOPICAL BID Patient Comments: unknown if taking, not on medication reconcillation promethazine 12.5 mg tablet 12.5 mg PO Q6H PRN (Reason: nausea and vomiting) prevagen 20 mg PO DAILY Changed potassium chloride 20 mEq tablet,ER particles/crystals 40 meq PO DAILY 30 Days Qty: 0 0RF lactulose 10 gram/15 mL solution 15 ml PO 4X/DAY 30 Days Qty: 0 0RF Patient Comments: 30mL orally daily at 1000 Rx Instructions: Goal to have 2-3 soft bowel movements per day Discontinued meloxicam 15 mg tablet 15 mg PO DAILY Patient Comments: TAKE 1 TABLET BY MOUTH DAILY trazodone 100 mg tablet 150 mg PO QHS Patient Comments: Take 1 tablet by mouth at bedtime Referrals / Follow Up: Rsahard Gandhi MD [Primary Care Provider] - Disposition Disposition (needs filled in before D/C Order can be placed): NonSkilled NH/Intermed Care Charges/Coding Visit Charges Inpatient E&M: 63991 Disch Hosp >30min
[2023-12-27] MEDS: Potassium Chloride Oral Tablet 20 MEQ 40 MEQ PO (15:16)
[2023-12-27 15:18] VITALS: BP 134/81; PULSE 84; RESP 18; TEMP 36.5; O2SAT 96
[2023-12-29 14:23] LABS: Pathologist Review Reviewed
== END 2023-12-27 16:31 | DRG 392 ==
LOC: ED 21:04 → MS3 21:11
PROVIDERS: Admitting Provider Family Medicine; Emergency Provider Student in an Organized Health Care Education/Training Program; PCP Internal Medicine; Visit Provider Internal Medicine
DX: K52.9 Noninfective gastroenteritis and colitis, unspecified (principal); E44.0 Moderate protein-calorie malnutrition; F10.27 Alcohol dependence with alcohol-induced persisting dementia; I47.20 Ventricular tachycardia, unspecified; L89.152 Pressure ulcer of sacral region, stage 2; L98.419 Non-pressure chronic ulcer of buttock with unspecified severity; I10 Essential (primary) hypertension; E78.5 Hyperlipidemia, unspecified; I25.5 Ischemic cardiomyopathy; I25.10 Atherosclerotic heart disease of native coronary artery without angina pectoris; L89.611 Pressure ulcer of right heel, stage 1; F41.8 Other specified anxiety disorders; F17.200 Nicotine dependence, unspecified, uncomplicated; J44.89 Other specified chronic obstructive pulmonary disease; R29.898 Other symptoms and signs involving the musculoskeletal system; Z95.5 Presence of coronary angioplasty implant and graft; Z79.899 Other long term (current) drug therapy; Z79.02 Long term (current) use of antithrombotics/antiplatelets; Z95.810 Presence of automatic (implantable) cardiac defibrillator; Z68.20 Body mass index [BMI] 20.0-20.9, adult
CPT/HCPCS: 36415; 70450; 71045; 74176; 80048; 80053; 81001; 82140; 83690; 83735; 84100; 84484; 85025; 87426; 87631; 93005; 97162; 97165; 97530; 97802; 97803; 99285; J7030; P9612; A4216; J0744; J2405

== ENCOUNTER → 2023-12-30 | Outpatient (REF) | payer MEDICARE, MEDICAID, SELFPAY ==
[2023-09-01 14:43] VITALS: BMI 29.2
--- OUTSIDE RECORDS SUMMARY | 2023-12-30 04:53 | XMS RPT_ITS | CCD ---
Author Name Unknown Address [address] [place] [address] Organization [facility] Care Team Providers Care Tie Layer Name Role Phone MD Naga, Luis Augustin Unavailable [phone] GONGORA, Simona Marrufo Unavailable Unavailable [...] Hmg-Coa Reductase Inhibitors (Statins) Drug Allergy Unknown [facility] (7 sources) ezetimibe drug allergy 04-23-2017 myalgia's [facility] Work Phone: (12 sources) Hmg-Coa Reductase Inhibitors (Statins) drug allergy 01-13-2014 Elevated Liver Enzymes [facility] Work Phone: (12 sources) iodine drug allergy 05-24-2011 Rash [facility] Work Phone: Medications Current Medications Medication Drug [...] tablet by mouth twice daily AMLODIPINE BESYLATE [id number] Luis Martin MD Problems Active Problems Problem Classification Problem Date Documented Date Episodic/Chronic Cardiac dysrhythmias (20 sources) Ventricular tachycardia; Translations: [Premature beats] Onset: 05-24-2011 05-24-2011 Chronic Coronary atherosclerosis and other heart disease (20 sources) Atherosclerotic heart disease of [place] coronary artery without angina pectoris; Translations: [Coronary [...] 05-24-2011 Episodic Other aftercare (14 sources) 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; Translations: [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] Onset: 05-24-2011 05-24-2011 Episodic Other nutritional; endocrine; and metabolic disorders (12 sources) Body mass index (BMI) 27.0-27.9, adult; Translations: [Body mass index (BMI) 27.0-27.9, adult] Onset: 01-23-2017 01-23-2017 Episodic Results Test Name Value Interpretation Reference Range Facil ity Vital Signs Date Time Vital Sign Value Performing Clinician Facility 05-27-2021 14:37-0400 Diastolic blood pressure 68 mm[Hg] Shay Cebul Other Phone: [facility] 05-27-2021 14:37-0400 Heart rate 73 /min Shay Cebul Other Phone: [facility] 05-27-2021 14:37-0400 Respiratory rate 18 /min Shay Cebul Other Phone: [facility] 05-27-2021 14:37-0400 Systolic blood pressure 124 mm[Hg] Shay Cebul Other Phone: [facility] 05-27-2021 13:30-0400 SaO2% (BldA) [Mass fraction] 97 % Shay Cebul Other Phone: [facility] 05-27-2021 12:08-0400 Body height 187.9 cm Shay Cebul Other Phone: [facility] 05-27-2021 12:08-0400 Body temperature 99.14 [degF] Shay Cebul Other Phone: [facility] 05-27-2021 12:08-0400 Body weight 90.9 kg Shay Cebul Other Phone: [facility] 05-24-2021 05:30-0400 Diastolic blood pressure 78 mm[Hg] Shay Cebul Other Phone: [facility] 05-24-2021 05:30-0400 Heart rate 90 /min Shay Cebul Other Phone: [facility] 05-24-2021 05:30-0400 Respiratory rate 18 /min Shay Cebul Other Phone: [facility] 05-24-2021 05:30-0400 SaO2% (BldA) [Mass fraction] 95 % Shay Cebul Other Phone: [facility] 05-24-2021 05:30-0400 Systolic blood pressure 130 mm[Hg] Shay Cebul Other Phone: [facility] 08-05-2017 15:22-0400 BMI (Body Mass Index) 27.47 kg/m2 [facility] Work Phone: 08-05-2017 15:22-0400 BP Diastolic 70 mm[Hg] [facility] Work Phone: 08-05-2017 15:22-0400 BP Systolic 122 mm[Hg] Angela Hernandez RN [facility] Work Phone: 08-05-2017 15:22-0400 Height 187.96 cm Angela Hernandez RN [facility] Work Phone: 08-05-2017 15:22-0400 Pulse [...] Chart Update Shay Del Rosario Work Phone: [employer] [facility] Work Phone: Start: 02-14-2022 Chart Update Shay Del Rosario Work Phone: [employer] [facility] Work Phone: Start: 05-27-2021 End: 05-27-2021 Emergency department patient visit Cy Watkinstelma [facility] Emergency 16 Start: 05-24-2021 End: 05-24-2021 Emergency department patient visit Tommy Horn [facility] Emergency 16 Start: 11-08-2017 End: [...] End: 08-05-2017 Follow Up Appt 6 months Lusi Martin MD Work Phone: Start: 08-05-2017 End: [...] Ecg routine ecg w/least 12 lds w/i&r uLis Martin MD Work Phone: Start: 01-23-2017 [...] PA-C Work Phone: Start: 09-27-2014 End: 01-04-2015 [place] [facility] Dayanna Mercedes PA-C Work Phone: Start: 09-27-2014 End: 09-27-2014 Prgrmng dev eval implantable in persn 1 ld dfb Dayanna Mercedes PA-C Work Phone: Start: 09-27-2014 End: 01-04-2015 Follow Up Appt 3 months Dayanna fernández PA-C Work Phone: Start: 09-27-2014 End: 09-27-2014 Icd device prog eval, 1 sngl Dayanna Mercedes PA-C Work Phone: Start: 09-27-2014 End: 01-04-2015 [place] [facility] Dayanna Mercedes PA-C Work Phone: Start: 06-01-2014 End: 01-04-2015 Follow Up Appt 3 months Dayanna fernández PA-C Work Phone: Start: 06-01-2014 End: 01-04-2015 [facility] Dayanna Mercedes PA-C Work Phone: Start: [...] End: 01-12-2013 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 dfmanda Ramos MD Start: 01-12-2013 End: [...] End: 04-28-2012 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 dfb Yevgeniy Ramos MD Start: 04-20-2012 [...] 6 months Follow Up Appt 6 months [facility] Work Phone: Start: 08-05-2017 End: 08-05-2017 Follow Up BP Check Follow Up BP Check [facility] Work Phone: Start: 08-05-2017 End: 08-05-2017 Pacer Clinic [facility] Work Phone: Start: 07-28-2017 End: 07-28-2017 Appointment Appointment [facility] Work Phone: Start: 07-28-2017 End: 07-28-2017 Appointment Appointment [facility] Work Phone: Start: 07-08-2017 End: 07-28-2017 *Hepatic Function Panel *Hepatic Function Panel [facility] Work Phone: Start: 07-08-2017 End: 07-28-2017 Lipid 1996 panel *Lipid Profile CC PCP [facility] Work Phone: Start: 07-08-2017 End: 07-28-2017 *Hepatic Function Panel *Hepatic Function Panel [facility] Work Phone: Start: 07-08-2017 End: 07-28-2017 Lipid panel [AGGREGATE] *Lipid Profile CC PCP [facility] Work Phone: Start: 03-10-2017 End: 04-03-2017 *Hepatic Function Panel *Hepatic Function Panel [facility] Work Phone: Start: 03-10-2017 End: 04-03-2017 Lipid 1996 panel *Lipid Profile CC PCP [facility] Work Phone: Start: 03-10-2017 End: 04-03-2017 *Hepatic Function Panel *Hepatic Function Panel [facility] Work Phone: Start: 03-10-2017 End: 04-03-2017 Lipid panel [AGGREGATE] *Lipid Profile CC PCP [facility] Work Phone: Start: 01-23-2017 End: 01-23-2017 GERALD DUARTE [facility] Work Phone: Start: 01-23-2017 End: 01-23-2017 Ecg routine ecg w/least 12 lds w/i&r EKG (In office) [facility] Work Phone: Start: 01-23-2017 End: 01-23-2017 Echocardiography Echocardiogram (complete) [facility] Work Phone: Start: 01-23-2017 End: 03-13-2017 Follow Up Appt 6 months Follow Up Appt 6 months [facility] Work Phone: Start: 01-23-2017 End: 01-23-2017 Follow Up BP Check Follow Up BP Check [facility] Work Phone: Start: 01-23-2017 End: 03-13-2017 Pacer Clinic [facility] Work Phone: Start: 01-23-2017 End: 01-23-2017 GERALD DUARTE [facility] Work Phone: Start: 01-23-2017 End: 03-13-2017 Echocardiography Echocardiogram (complete) [facility] Work Phone: Start: 01-23-2017 End: 01-23-2017 Electrocardiogram, complete EKG (In office) [facility] Work Phone: Start: 01-23-2017 End: 03-13-2017 Follow Up Appt 6 months Follow Up Appt 6 months [facility] Work Phone: Start: 01-23-2017 End: 01-23-2017 Follow Up BP Check Follow Up BP Check [facility] Work Phone: Start: 01-23-2017 End: 03-13-2017 Pacer Clinic Pacer Clinic [facility] Work Phone: Start: 12-16-2016 End: 01-22-2017 *Hepatic Function Panel *Hepatic Function Panel [facility] Work Phone: Start: 12-16-2016 End: 01-22-2017 Lipid 1996 panel *Lipid Profile CC PCP [facility] Work Phone: Start: 12-16-2016 End: 01-22-2017 *Hepatic Function Panel *Hepatic Function Panel [facility] Work Phone: Start: 12-16-2016 End: 01-22-2017 Lipid panel [AGGREGATE] *Lipid Profile CC PCP [facility] Work Phone: Start: 11-27-2015 End: 12-16-2016 *Hepatic Function Panel *Hepatic Function Panel [facility] Work Phone: Start: 11-27-2015 [...] 3 months Follow Up Appt 3 months [facility] Work Phone: Start: 01-09-2015 End: 02-16-2015 Pacer Clinic Pac[facility] Clinic [facility] Work Phone: Start: 01-09-2015 End: 02-16-2015 Follow Up Appt 3 months Follow Up Appt 3 months [facility] Work Phone: Start: 01-09-2015 End: 02-16-2015 Pacer Clinic Pac[facility] Clinic [facility] Work Phone: Start: 09-27-2014 End: 01-04-2015 Follow Up Appt 3 months Follow Up Appt 3 months [facility] Work Phone: Start: 09-27-2014 End: 01-04-2015 Pacer Clinic Pacer Clinic [facility] Work Phone: Start: 09-27-2014 End: 01-04-2015 Follow Up Appt 3 months Follow Up Appt 3 months [facility] Work Phone: Start: 09-27-2014 End: 01-04-2015 Pacer Clinic Pac[facility] Clinic [facility] Work Phone: Start: 06-01-2014 End: 01-04-2015 Follow Up Appt 3 months Follow Up Appt 3 months [facility] Work Phone: Start: 06-01-2014 End: 01-04-2015 Pacer Clinic Pacer Clinic [facility] Work Phone: Start: 06-01-2014 End: 01-04-2015 Follow Up Appt 3 months Follow Up Appt 3 months [facility] Work Phone: Start: 06-01-2014 End: 01-04-2015 Pacer Clinic [facility] Clinic [facility] Work Phone: Start: 01-13-2014 End: 03-07-2014 *Hepatic Function Panel *Hepatic Function Panel [facility] Work Phone: Start: 01-13-2014 End: 01-13-2014 DJN DJN [facility] Work Phone: Start: 01-13-2014 End: 01-13-2014 Follow Up Appt 1 year Follow Up Appt 1 year [facility] Work Phone: Start: 01-13-2014 End: 01-13-2014 Follow Up Appt 3 months Follow Up Appt 3 months [facility] Work Phone: Start: 01-13-2014 End: 03-07-2014 Lipid 1996 panel *Lipid Profile CC PCP [facility] Work Phone: Start: 01-13-2014 End: 01-13-2014 Pacer Clinic Pacer Clinic [facility] Work Phone: Start: 01-13-2014 End: 03-07-2014 *Hepatic Function Panel *Hepatic Function Panel [facility] Work Phone: Start: 01-13-2014 End: 01-13-2014 DJN DJN [facility] Work Phone: Start: 01-13-2014 End: 01-13-2014 Follow Up Appt 1 year Follow Up Appt 1 year [facility] Work Phone: Start: 01-13-2014 End: 01-13-2014 Follow Up Appt 3 months Follow Up Appt 3 months [facility] Work Phone: Start: 01-13-2014 End: 03-07-2014 Lipid panel [AGGREGATE] *Lipid Profile CC PCP [facility] Work Phone: Start: 01-13-2014 End: 01-13-2014 Pacer Clinic Pacer Clinic [facility] Work Phone: Start: 12-02-2013 End: 12-29-2013 *Hepatic Function Panel *Hepatic Function Panel [facility] Work Phone: Start: 12-02-2013 End: 12-29-2013 Lipid 1996 panel *Lipid Profile CC PCP [facility] Work Phone: Start: 12-02-2013 End: 12-29-2013 *Hepatic Function Panel *Hepatic Function Panel [facility] Work Phone: Start: 12-02-2013 [...] Lipid panel [AGGREGATE] *Lipid Profile CC PCP [facility] Work Phone: Start: 05-21-2013 End: 12-29-2013 Follow Up Appt 3 months Follow Up Appt 3 months [facility] Work Phone: Start: 05-21-2013 End: 12-29-2013 Pacer Clinic Pacer Clinic [facility] Work Phone: Start: 05-21-2013 End: [...] 02-17-2013 End: 12-29-2013 Pacer Clinic Pacer Clinic [facility] Work Phone: Start: 02-17-2013 End: 12-29-2013 Follow Up Appt 3 months Follow Up Appt 3 months [facility] Work Phone: Start: 02-17-2013 End: 12-29-2013 Pacer Clinic Pacer Clinic [facility] Work Phone: Start: 10-13-2012 End: 10-13-2012 Follow Up Appt 6 months Follow Up Appt 6 months [facility] Work Phone: Start: 10-13-2012 End: 10-13-2012 Follow Up Appt 6 months Follow Up Appt 6 months [facility] Work Phone: Start: 04-20-2012 End: 04-28-2012 *BMP *BMP [facility] Work Phone: Start: 04-20-2012 End: 04-28-2012 *CBC with Differential *CBC with Differential [facility] Work Phone: Start: 04-20-2012 End: 09-22-2012 *Hepatic Function Panel *Hepatic Function Panel [facility] Work Phone: Start: 04-20-2012 End: 04-20-2012 Follow Up Appt 6 months Follow Up Appt 6 months [facility] Work Phone: Start: 04-20-2012 End: 10-13-2012 Lipid 1996 panel *Lipid Profile [facility] Work Phone: Start: 04-20-2012 End: 10-13-2012 Magnesium mass conc *Magnesium [facility] Work Phone: Start: 04-20-2012 End: 04-28-2012 *BMP *BMP [facility] Work Phone: Start: 04-20-2012 End: [...] End: 10-13-2012 Lipid panel [AGGREGATE] *Lipid Profile [facility] Work Phone: Start: 04-20-2012 End: 10-13-2012 Magnesium *Magnesium [facility] Work Phone: Patient Education HEART%20HEALTHY%20DIET [facility] Work Phone: Payers Date Payer Category Payer Unknown [id number] Unknown Social History Date Type Detail Facility [facility] Tobacco smoking consumption unknown [facility] Clinical Note 04-10-2021 Note Date & Type Note Facility 04-10-2021 Note Patient Outreach (IN [facility]) FRANCIS MORTON ([id number]) 1955 M Date Time Provider Department 04/10/21 [...] tests Date Reviewed: 09/04/2020 Reviewed by: Ngozi ([facility]) AINSLEY Patrick - Fully Assessed Visit Diagnoses:Medication management [Z79.899] Hyperlipidemia LDL goal <100 [E78.5] Order(s):BASIC METABOLIC PNL [SQBMP] Order #: [id number] FUTURE LIPID PANEL BASIC [SQLIPB] Order #: [id number] FUTURE TSH BLD [SQTSH] Order #: [id number] FUTURE CBC [SQCBC] Order #: [id number] FUTURE AST/SGOT BLD [SQAST] Order #: [id number] FUTURE ALT/SGPT [SQALT] Order #: [id number] FUTURE MAGNESIUM BLD [SQMG1] Order #: [id number] FUTURE Prescriptions as of 04/10/2021 Sig: MELOXICAM [...] abuse [F10.10] 10/16/2012 06/23/2013 Alcoholism /alcohol abuse [SNK5082] 06/23/2013 Tobacco abuse [Z72.0] 10/31/2014 Paroxysmal atrial fibrillation (HCC) [I48.0] 11/13/2017 Hyperlipidemia LDL goal <100 [E78.5] 11/13/2017 Physical debility [R53.81] 12/17/2019 Situational depression [F43.21] 12/17/2019 Generalized anxiety disorder with panic attacks*09/04/2020 Dysfunctional grieving [F43.21] 09/04/2020 Encounter Status:Closed by JANNETH CHACON on 04/13/21 [facility] Summary Purpose Family History No Family [...] DATE CREATED AUTHOR AUTHOR'S ORGANIZ ATION 12/18/2021 [facility] DATE CREATED AUTHOR AUTHOR'S ORGANIZ ATION 05/15/2022 [facility] <item><item> Privacy Markings (unrecogniz ed section and content) Section Author: Nancy Torres PROHIBITION ON REDISCLOSURE OF CONFIDENTIAL INFORMATION This notice accompanies a disclosure of information concerning a client made to you with the consent of such client. Section Author: Nacny Torres PROHIBITION ON REDISCLOSURE OF CONFIDENTIAL INFORMATION [...] BE BASED ON THE PRIMARY CLINICAL RECORDS. [facility] [employer] [facility]. provides no warranty or guarantee of the accuracy or completeness of information in this document.
[2023-12-30 08:32] LABS: Absolute Lymphocyte Count 3.36 X10^3/uL (0.83-4.51); Absolute Neutrophil Count 14.8 X10^3/uL (2.0-7.7); Basophil# 0.16 X10^3/uL; Basophil% 0.7 % (0-1); Eosinophil# 0.25 X10^3/uL; Eosinophils% 1.2 % (0-5); Hematocrit 38.7 % (40-54); Hemoglobin 13.3 g/dL (13.0-16.5); Lymphocyte # 3.36 X10^3/ul (0.83-4.51); Lymphocyte % 15.5 % (19-41); Mean Corp Hgb Conc 34.4 g/dL (32-36); Mean Corpuscular Hgb 30.6 pg (27.0-32.0); Mean Platelet Vol. 10.9 fl (6.2-12.0); NRBC Flagged by Analyzer 0 % (0-5); Neutrophil % 68.1 % (47-70); POSITIVE DIFFERENTIAL YES; Platelet Count 392 K/mm3 (150-450); RBC Distribution Width CV 16.3 % (11.6-14.6); RBC Distribution Width SD 50.3 fl (35.1-43.9); Red Blood Count 4.35 M/mm3 (4.6-6.2); White Blood Count 21.7 K/mm3 (4.4-11.0)
[2023-12-30 08:47] LABS: Differential Indicated SCAN CRITERIA MET
[2023-12-30 10:00] LABS: Differential Comment SCANNED
[2023-12-30 10:40] LABS: ALB/GLOB Ratio 0.5 RATIO (0.9-2.4); AST(SGOT) 115 U/L (15-37); Alanine Aminotransfer ALT/SGPT 45 U/L (16-61); Albumin, Serum 1.8 g/dL (3.2-5.0); Alkaline Phosphatase 271 U/L (45-117); Anion Gap 6 (5-15); BUN 19 mg/dL (7-18); BUN/Creat Ratio 40.3 RATIO (10-20); Chloride 110 mmol/L (98-107); Creatinine, Serum 0.47 mg/dL (0.70-1.30); EST Glomerular Filtration Rate 188 mL/min (>60); Est Glom Filt Rate - Afr Amer 228 mL/min (>60); Globulin 3.3 g/dL (2.2-4.2); Glucose 107 mg/dL (74-106); Potassium 3.2 mmol/L (3.5-5.1); Protein, Total 5.1 g/dL (6.4-8.2); Sodium Level 140 mmol/L (136-145)
[2023-12-31 13:41] LABS: Pathologist Review Reviewed
== END ==
LOC: OLS.WHLEAS 05:00
PROVIDERS: PCP Internal Medicine; Visit Provider Internal Medicine
DX: I10 Essential (primary) hypertension (principal); K52.89 Other specified noninfective gastroenteritis and colitis; I47.20 Ventricular tachycardia, unspecified; I25.5 Ischemic cardiomyopathy; R91.1 Solitary pulmonary nodule
CPT/HCPCS: 36415; 80053; 82140; 85025

== ENCOUNTER 2023-12-31 11:57 | Inpatient (IN) | payer MEDICARE, MEDICAID, SELFPAY ==
[2023-09-01 14:43] VITALS: BMI 29.2
[2023-12-31] VITALS (13 sets, daily range): BP systolic 103–139; BP diastolic 68–98; PULSE 91–104; RESP 16–26; TEMP 35.8–36.8; O2SAT 92–100; BMI 23.1; BMI 19.8
--- NOTE | 2023-12-31 | FLU_PTH ---
PATHOLOGY RESULTS PATIENT: FRANCIS MORTON LOC: MS3 U#:[id number] AGE/SX: 68/M ROOM: [facility] RE12/31/[address]: Dr. Farhan Salvador DO : 1955 BED: 1 DIS: 01/10/2024 SPEC #: [id number] RECD: 01/01/24 11:41 STATUS: LOREN REMarquita #: [id number] ANICETO: 12/31/23 00:[address]: Sarah Kathleen DEPT: CYTOLOGY RECD BY: Margoth Sanchez ENTERED: 01/01/24 11:42 SP TYPE: Fluid OTHR DR: MD Dr. Aidan Zhong, DO Tissues: PARACENTESIS FLUID Procedures: Special Stain Group II Surgery Specimen Level IV Cytospin Fluid HEADER OPERATION: Paracentesis right lower quadrant PRE-OP DIAGNOSIS: Ascites TISSUE SUBMITTED: Paracentesis fluid for cytology DIAGNOSIS CYTOLOGY Paracentesis fluid for cytology (cytospin and cell block): Negative for malignant cells. See comment. AM:mary 01/02/2024 COMMENT Immunohistochemistry ([id number]) supports the above diagnosis. CYTOLOGY STUDY Slides are reviewed. CYTOLOGY GROSS Received is 80 ml of dark brownish-red cloudy fluid labeled with the patient's name and and designated per the requisition as paracentesis. Submitted for cytology preparation including cell block. / mary 01/01/2024 TC:5 CPT: 77279, 77778
--- NOTE | 2023-12-31 | IMM_PTH ---
PATHOLOGY RESULTS PATIENT: FRANCIS MORTON LOC: MS3 U#:[id number] AGE/SX: 68/M [place] [facility] [place]: Dr. Farhan Salvador DO : 1955 BED: 1 DIS: 01/10/2024 SPEC #: [id number] RECD: 01/02/24 10:25 STATUS: LOREN REQ #: [id number] ANICETO: 12/31/23 00:[address]: Sarah Kathleen DEPT: IMMUNOHISTOCHEMISTRY RECD BY: Fatoumata Shin ENTERED: 01/02/24 10:27 SP TYPE: IMMUNO OTHR DR: MD Dr. Aidan Zhong DO Tissues: PARACENTESIS FLUID Procedures: Emanuel Ret (add) CK5-6 (add) CK7 (add) CK8 (add) KI-67 (add) P53 (add) Vimentin (add) Pankeratin (initial) P40 (add) CD68 (ADD) PHYSICIAN & [address] [address] SPECIMEN INFORMATION: Tissue Source: Paracentesis fluid Clinical Info: Ascites Specimen Number: [id number] CPT code: 63692, 61240 x9 METHODOLOGY: Deparaffinized sections of prefer/formalin-fixed tissue or PAP/DQ stained slides are incubated with monoclonal/polyclonal antibodies/oligonucleotide probes. Localization is made via biotin free immunoperoxidase method. Appropriate controls are performed and reacted as expected. Results on target cell population are indicated in the following table: RESULTS: ANTIBODY / CLONE RESULT AE1-3 (AE1/AE3/PCK26) positive CK7 (OV-TL12/30) positive CK8 (89wtrmC96) positive Vimentin (V9) positive CD68 (KP-1) positive CALRET (polyclonal) positive CK5-6 (D5 & 1684) positive P40 (BC28) negative P53 (DO-7) negative, null pattern Ki-67 (30-9) positive, rare cells These tests were developed and their performance characteristics determined by [facility]. They may not have been cleared or approved by the U.S. Food and Drug Administration. The FDA has determined that such clearance or approval is not necessary. The above immunohistochemical/dualISH markers are ordered and reviewed by the Pathologist. INTERPRETATION: Paracentesis fluid (cell block): No evidence of malignancy. AM:mary 01/05/2024
--- NOTE | 2023-12-31 12:17 | EKG12_ITS ---
Test Reason : Blood Pressure : / mmHG Vent. Rate : 103 BPM Atrial Rate : 103 BPM P-R Int : 128 ms QRS Dur : 120 ms QT Int : 388 ms P-R-T Axes : 002 026 232 degrees QTc Int : 508 ms Sinus tachycardia Cannot rule out Inferior infarct (cited on or before 22-DEC-2023) Abnormal ECG Confirmed by ELEAZAR JEFFERSON, SHAY ([id number]), technical writer and editor SHERRI BROWN ([id number]) on 01/05/2024 6:58:35 AM Referred By: NALDO/DAMON Confirmed By:KE BUSH MD
--- NOTE | 2023-12-31 12:17 | CT_ITS ---
STUDY: CT BRAIN WITHOUT CONTRAST REASON FOR EXAM: Male, 68 years old. AMS, fall RADIATION DOSAGE (If Supplied By Facility): CTDIvol = ( 44.99 ) mGy, DLP = ( 829.85 ) mGycm TECHNIQUE: Transaxial CT imaging of the brain was performed without administration of intravenous contrast material. Individualized dose optimization techniques were used for this CT. COMPARISON: Head CT dated December 22, 2023 FINDINGS: Normal soft tissue structures. Normal calvarium. No visualized skull fracture. There is moderate cerebral atrophy with widening of the extra-axial spaces and ventricular dilatation. There are areas of decreased attenuation within the white matter tracts of the supratentorial brain, consistent with microvascular disease changes. Normal basal ganglia and thalami. Normal brainstem. Normal cerebellum. No hydrocephalus or midline shift is present. No extra-axial fluid collection is seen. There is no intracranial hemorrhage. There are no findings of an acute ischemic infarction. Normal visualized paranasal sinuses. CT/Brain/Head without Contrast IMPRESSION: Chronic involutional changes of the brain. Electronically Signed: Romero Real MD at 13:53 EST Reading Location ID and State: [facility] / [place] , Service support ,
--- NOTE | 2023-12-31 12:33 | EX.ED.DYSGE1 ---
HPI History of Present Illness Chief Complaint: Mental Status Change Informant: patient Narrative Narrative: Patient is a 68-year-old male with history of chronic respiratory failure on 2 L of oxygen at baseline, coronary artery disease, ischemic cardiomyopathy, hypertension, COPD, alcoholic liver failure presenting with episode of hypoxia as well as intermittent delirium. Patient is nursing from his nursing facility. Per nursing report patient was found to be hypoxic with O2 saturation in the 80s however he taken off his oxygen. He always wears 2 L. He is also been reportedly having increased delirium. Has been seeing things in the room such as a small doctor with only 1 eye. Currently patient is behaving appropriately and just tells me that he thinks something is wrong with himself. He is hard to understand and has a very dry mouth. He has had some abdominal discomfort and swelling. He states that he had an episode of vomiting this morning. Is unclear about when his last bowel movement was. Tells me that he may have had a fall couple days ago but is not sure. Of note patient was seen in our ER on 12/22/2023 (9 days ago) for generalized weakness. I had a chest x-ray that showed several rib fractures including the eighth and ninth ribs, CT of the abdomen pelvis with possible colitis as well as ascites. There is questionable focal pancreatitis. Patient was started on Cipro and Flagyl and discharged back to facility. He did negative CT of his brain at that time. [facility] Medical History Abnormal LFTs Adult failure to thrive Anxiety and depression Atherosclerotic heart disease of redding coronary artery without angina pectoris Benzodiazepine abuse in remission C. 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 Essential hypertension Femoral neck fracture Former tobacco use Frequent falls History of alcoholism Hyperlipidemia Hyponatremia Incontinence of feces Incontinence of urine Ischemic cardiomyopathy Non-pressure chronic ulcer of other part of right foot with fat layer exposed Physical debility Pulmonary nodule Stage 1 mild COPD by GOLD classification Syndrome of inappropriate ADH (SIADH) secretion Tinea unguium Unable to ambulate Ventricular tachycardia Home Medications amiodarone 200 mg tablet 200 mg PO DAILY IRREGULAR HEARTBEAT 05/25/22 [History Last Taken Unknown] clopidogrel 75 mg tablet 75 mg PO DAILY BLOOD THINNER 05/25/22 [History Last Taken Unknown] metoprolol succinate 25 mg tablet,extended release 24 hr 12.5 mg PO DAILY BLOOD PRESSURE 05/25/22 [History Last Taken Unknown] acetaminophen 325 mg tablet 650 mg PO Q4H PRN PAIN 10/05/23 [History Last Taken Unknown] sodium chloride 1,000 mg soluble tablet 1,000 mg PO DAILY SUPPLEMENT 10/05/23 [History Last Taken Unknown] Prevagen Extra Strength 20 mg PO DAILY VITAMIN DEFICIENCY 12/22/23 [History Last Taken Unknown] aluminum-mag hydroxide-simethicone 200 mg-200 mg-20 mg/5 mL oral susp (Alcira-Lanta) 15 ml PO Q4H PRN INDIGESTION 12/22/23 [History Last Taken Unknown] furosemide 20 mg tablet 20 mg PO DAILY EDEMA 12/22/23 [History Last Taken Unknown] promethazine 12.5 mg tablet 12.5 mg PO Q6H PRN NAUSEA/VOMITING 12/22/23 [History Last Taken Unknown] trolamine salicylate 10 % topical cream (Pain Relief (trolamine salicylate)) 1 applic topical BID KNEE PAIN 12/22/23 [History Last Taken Unknown] nystatin 100,000 unit/gram topical powder (Nyamyc) 1 applic topical BID FUNGAL INFECTION #0 grams 12/27/23 [Rx Last Taken Unknown] sennosides 8.6 mg-docusate sodium 50 mg tablet (Stool Softener-Stimulant Laxative) 2 tab PO BID CONSTIPATION #0 tabs 12/27/23 [Rx Last Taken Unknown] thiamine HCl (vitamin B1) 100 mg tablet (Vitamin B-1) 100 mg PO BREAKFAST SUPPLEMENT #0 tabs 12/27/23 [Rx Last Taken Unknown] Lactobacillus rhamnosus GG 15 billion cell sprinkle capsule (Culturelle) 1 cap PO DAILY GUT HEALTH 12/31/23 [History Last Taken Unknown] albuterol sulfate 2.5 mg/3 mL (0.083 %) solution for nebulization 2.5 mg inhalation Q2H PRN SHORTNESS OF BREATH/WHEEZING 12/31/23 [History Last Taken Unknown] arginine 7 gram-glutamine 7 gram-calcium HMB 1.5 gram oral powder pack (Angel) 1 ea PO BID WOUND HEALING 12/31/23 [History Last Taken Unknown] lactulose 10 gram/15 mL (15 mL) oral solution 10 g PO 1000 HYPO-OSMALITY 12/31/23 [History Last Taken Unknown] lactulose 10 gram/15 mL oral solution 15 ml PO 1400,2000 HYPO-OSMALITY 12/31/23 [History Last Taken Unknown] lidocaine HCl 2 % mucosal solution (Lidocaine Viscous) 20 ml PO Q4H SORE THROAT/MOUTH 12/31/23 [History Last Taken Unknown] meloxicam 15 mg tablet 15 mg PO DAILY ARTHRITIS 12/31/23 [History Last Taken Unknown] paroxetine HCl 30 mg tablet 30 mg PO QHS DEPRESSION 12/31/23 [History Last Taken Unknown] potassium chloride 20 mEq tablet,extended release(part/cryst) 20 meq PO DAILY SUPPLEMENT 12/31/23 [History Last Taken Unknown] trazodone 50 mg tablet 150 mg PO QHS SLEEP 12/31/23 [History Last Taken Unknown] Allergy/AdvReac Type Severity Reaction Status Date / Time Iodine and Iodide Containing Allergy Severe Rash Verified 12/22/23 16:55 Produc ezetimibe [From Zetia] AdvReac Severe Myalgias Verified 12/22/23 16:55 Snxydoz-CTN-MtO Reductase AdvReac Severe Elevated Verified 12/22/23 16:55 Inhibitor Liver [Wzpgpey-Say-Lpr Reductase Enzymes Inhibitor] duloxetine [From Cymbalta] AdvReac Orthostasis Verified 12/22/23 16:55 /hyponatrem ia Family History Grandmother Myocardial infarction Grandfather Myocardial infarction Surgical History History of coronary artery stent placement (02/17/19) History of implantable cardiac defibrillator (ICD) (10/31/17) History of left heart catheterization (LHC) (01/21/19) Hx of knee surgery Hx of total hip arthroplasty Social History housing: half-way number of children: 1 current occupational status: unemployed Smoking Status: Light Smoker (<10/day) how long ago did patient quit smoking: Smokes 2.5 packs per week. alcohol intake: former year quit: 2012 details: Sober 13-14 months. substance use type: other details: Has abused RX Ativan in the past, remains clean. well-balanced diet: other details: says that he gets meals on wheels and they pile upin the refrigerator caffeine: No during the past year weight has: other details: decreased 20 lbs since November what type of physical activity do you participate in: none duration: < 15 minutes/day seatbelt use: always do you feel safe at home: Yes ROS ROS ED Constitutional Constitutional ED: Denies chills or fever(s) ENT ENT ED: Denies sore throat Cardiovascular Cardiovascular: Denies chest pain Respiratory/Chest Respiratory/Chest: Denies cough or dyspnea Gastrointestinal Gastrointestinal: Reports abdominal pain, nausea and vomiting Musculoskeletal Musculoskeletal: Denies arthralgias or myalgias Integumentary Denies rash Neurologic Neurologic: Reports weakness; Denies headache(s) EXAM Physical Exam Const Vital Signs: 12/31/23 11:58 12/31/23 11:58 12/31/23 12:58 Temperature 97.6 F L Temperature Source Temporal Pulse Rate 101 H 102 H 99 Respiratory Rate 18 17 25 H Blood Pressure 122/85 H 139/98 H Blood Pressure Mean 97 111 Pulse Ox 95 93 92 Oxygen Delivery Method Nasal Cannula Nasal Cannula Nasal Cannula Oxygen Flow Rate (L/min) 2 2 12/31/23 13:00 12/31/23 14:00 Temperature Temperature Source Pulse Rate 104 H 92 Respiratory Rate 22 H 22 H Blood Pressure 125/77 H 126/73 H Blood Pressure Mean 93 90 Pulse Ox 95 96 Oxygen Delivery Method Nasal Cannula Nasal Cannula Oxygen Flow Rate (L/min) 2 2 Constitutional Narrative: Chronically ill-appearing General Appearance ED: NAD and pallor HEENT Reports dry mucous membranes Mouth ED: Yes dry mucous membranes Mouth: dry mucous membranes Eyes PERRL and EOMs intact bilaterally Neck supple and no JVD Chest Wall inspection of chest normal Resp normal respiratory effort Resp Narrative: Diminished breath sounds throughout Cardio regular rhythm Rate: tachycardic GI GI Narrative: Mild diffuse tenderness. Ascites on exam. Positive fluid wave. Auscultation: normoactive bowel sounds Palpation: soft and tender; Negative for guarding Extremity normal to inspection General Extremety ED: Negative for edema or tenderness General Extremity: Negative for edema Neuro oriented x3 Neuro Narrative: No focal neurologic deficits appreciated. No significant asterixis on exam Sensorium / Orientation: alert Motor Exam: general weakness Psych mental status grossly normal Skin no rashes or lesions noted General Skin Exam: pallor MDM MDM MDM Narrative Medical decision making narrative: Patient evaluated for altered mental status and questionable hypoxia. He is 93% on his baseline 2 L at this time not sure if hypoxia was associated with him taking his oxygen off. Will obtain workup however especially given his significant past medical history. I will give some IV fluids as well. Differential includes acute on chronic hypoxia, hepatic encephalopathy, infection, pneumonia, electrolyte derangement, ERMIAS, decompensated heart failure Workup is significant for a significant leukocytosis of 29.5 which is up trending. Hemoglobin is stable at 13.8. He has a worsening granulocyte percentage. Patient does have an elevated PT likely associated coagulopathy from his liver disease. Lactate is normal at 1.3 and patient does not meet criteria for severe sepsis or septic shock. His BNP is mildly elevated at 113 but this is nonspecific. He does have an elevated lipase of 512 however this is actually downtrending since his last admission. Renal function is normal and he has a mild transaminitis with an AST of 111 and alkaline phosphatase of 301. His ammonia level is normal. Chest x-ray shows significant fluid as well as some suspected underlying infiltrate however it is read as no acute interval change however on review of his prior chest x-ray he has significant increase in infiltrate as well as congestion/fluid. It is possible he has underlying pneumonia. Also could be some type of decompensated heart failure versus decompensated liver disease/cardiorenal syndrome. Case is discussed with EDDIE, Dr. Vazquez, who is agreeable with admission. I also discussed my concern for possible SBP as a source of his leukocytosis. Will obtain diagnostic paracentesis through IR and started on antibiotics in the meantime. Discussed with radiology and they can perform it tomorrow. EDDIE is aware. Patient is admitted to the medicine service. He remains hemodynamic stable. Confirm that he is a CODE STATUS of DNR CCA. After discussion with medicine will place the patient on Zosyn for broader spectrum. CT the brain does not show any acute process. Lab Data Labs: Laboratory Results - last 24 hr 12/31/23 12/31/23 12/31/23 12:35 12:35 13:17 WBC 29.5 H RBC 4.42 L Hgb 13.8 Hct 40.2 MCV 91.0 MCH 31.2 MCHC 34.3 RDW Std Deviation 54.5 H RDW Coeff of Yoli 17.2 H Plt Count 496 H MPV 10.6 Immature Gran % (Auto) 3.000 H Neut % (Auto) 70.3 H Lymph % (Auto) 13.8 L [place] % (Auto) 11.3 H Eos % (Auto) 1.0 Baso % (Auto) 0.6 Absolute Neuts (auto) 20.7 H Absolute Lymphs (auto) 4.07 Nucleated RBC % 0 Differential Comment SCANNED Diff Path Review March PT 18.4 H INR 1.5 APTT 33.7 Sodium 140 Potassium 4.0 Chloride 110 H Carbon Dioxide 27.0 Anion Gap 3 L BUN 26 H Creatinine 0.74 Estim Creat Clear Calc 98.09 Est GFR (MDRD) Af Amer 136 Est GFR (MDRD) Non-Af 112 BUN/Creatinine Ratio 35.3 H Glucose 116 H Lactic Acid 1.3 Calcium 8.3 L Total Bilirubin 0.80 Direct Bilirubin 0.42 H AST 111 H ALT 43 Alkaline Phosphatase 301 H Ammonia < 10.0 L Lactate Dehydrogenase 415 H B-Natriuretic Peptide Cancelled 113.2 H Total Protein 5.6 L Albumin 2.0 L Globulin 3.6 Lipase 512 H Ethyl Alcohol < 3.0 Radiography Chest X-Ray - ED: 1 View, Read by ED Physician, CHF, Right Infiltrate, Left Infiltrate, Right Effusion and Left Effusion Diagnostic Testing: Clinical Impression(s) from Imaging Studies Brain CT 12/31/23 12:17 IMPRESSION: Chronic involutional changes of the brain. Electronically Signed: Romero Real MD at 13:53 EST Reading Location ID and State: [address] [place] [address] , Service support , Chest X-Ray 12/31/23 12:51 IMPRESSION: * No interval change in moderate to severe bilateral common area edema/underlying consolidation * No change in small to moderate-sized bilateral pleural effusions Electronically Signed: Romero Real MD at 13:51 EST Reading Location ID and State: [facility] / [place] , Service support , ADDENDUM: 12/31/23 1526 IMPRESSION: undefined Rhythm Strip Rhythm Strip: Sinus Tach Rate: 103 Ectopy: None EKG Initial EKG: Attestation: I personally reviewed and interpreted this EKG as follows: Interpretation: Sinus Tachycardia Comments: Sinus tachycardia rate 103 bpm Normal axis Normal intervals Normal ST segments Compared to prior EKG on 12/22/2023 patient is now tachycardic Management Discussion w/another healthcare provider: Hospitalist and [employer] Discharge Plan Dx/Rx/DC Orders Clinical Impression: Abdominal ascites, Acute encephalopathy, Leukocytosis, Multifocal pneumonia Disposition Disposition: Acute Care Hospital [facility] Discharge Date/Time: 12/31/23 17:12
[2023-12-31] MEDS: Ondansetron 4 MG/2 ML Vial IV (12:46)
[2023-12-31] MEDS: 0.9% Normal Saline (500mL Bag) 500 ML 1000 ML IV (12:46)
--- NOTE | 2023-12-31 12:51 | RAD_ITS ---
STUDY: X-RAY CHEST REASON FOR EXAM: Male, 68 years old. AMS TECHNIQUE: Single AP portable view of the chest. COMPARISON: December 22, 2023 FINDINGS: 1. No interval change in moderate to severe bilateral common area edema/underlying consolidation 2. No change in small to moderate-sized bilateral pleural effusions 3. Stable left chest cardiac device and leads 4. Mild to moderate cardiomegaly 5. No pneumothorax 6. Stable mediastinum and osseous structures There is no demonstrated abnormality of the visualized soft tissue structures of the upper abdomen. RAD/Chest 1 View (Portable) IMPRESSION: * No interval change in moderate to severe bilateral common area edema/underlying consolidation * No change in small to moderate-sized bilateral pleural effusions Electronically Signed: Romero Real MD at 13:51 EST ,
[2023-12-31 13:02] LABS: Absolute Lymphocyte Count 4.07 X10^3/uL (0.83-4.51); Absolute Neutrophil Count 20.7 X10^3/uL (2.0-7.7); Basophil# 0.19 X10^3/uL; Basophil% 0.6 % (0-1); Eosinophil# 0.29 X10^3/uL; Hematocrit 40.2 % (40-54); Hemoglobin 13.8 g/dL (13.0-16.5); Lymphocyte # 4.07 X10^3/ul (0.83-4.51); Lymphocyte % 13.8 % (19-41); Mean Corp Hgb Conc 34.3 g/dL (32-36); Mean Corpuscular Hgb 31.2 pg (27.0-32.0); Mean Platelet Vol. 10.6 fl (6.2-12.0); Monocyte# 3.32 X10^3/uL; Monocyte% 11.3 % (0-10); NRBC Flagged by Analyzer 0 % (0-5); Neutrophil # 20.69 X10^3/uL (2.7-7.7); Neutrophil % 70.3 % (47-70); POSITIVE DIFFERENTIAL YES; POSITIVE MORPHOLOGY YES; Platelet Count 496 K/mm3 (150-450); RBC Distribution Width CV 17.2 % (11.6-14.6); RBC Distribution Width SD 54.5 fl (35.1-43.9); Red Blood Count 4.42 M/mm3 (4.6-6.2); White Blood Count 29.5 K/mm3 (4.4-11.0)
[2023-12-31 13:03] LABS: Differential Indicated SCAN CRITERIA MET
[2023-12-31 13:15] LABS: Ammonia < 10.0 umol/L (11-32)
[2023-12-31 13:17] LABS: International Normalized Ratio 1.5; Partial Thromboplast Time 33.7 Seconds (24.1-36.2); Prothrombin Time (Protime)PT. 18.4 SECONDS (11.7-14.9)
[2023-12-31 13:23] LABS: AST(SGOT) 111 U/L (15-37); Alanine Aminotransfer ALT/SGPT 43 U/L (16-61); Alkaline Phosphatase 301 U/L (45-117); Anion Gap 3 (5-15); BUN 26 mg/dL (7-18); BUN/Creat Ratio 35.3 RATIO (10-20); Bilirubin, Direct 0.42 mg/dL (0.00-0.30); Calcium,Total 8.3 mg/dL (8.5-10.1); Chloride 110 mmol/L (98-107); Creatinine, Serum 0.74 mg/dL (0.70-1.30); Differential Comment SCANNED; EST Glomerular Filtration Rate 112 mL/min (>60); Est Glom Filt Rate - Afr Amer 136 mL/min (>60); Estimated Creatinine Clearance 98.09 ml/min; Globulin 3.6 g/dL (2.2-4.2); Glucose 116 mg/dL (74-106); Lipase 512 U/L (13-75); Protein, Total 5.6 g/dL (6.4-8.2); Sodium Level 140 mmol/L (136-145)
[2023-12-31 13:34] LABS: BNP,B-Type NATRIURETIC PEPTIDE 113.2 pg/mL (0-100)
[2023-12-31 13:36] LABS: Alcohol, Blood (Medical)-Serum < 3.0 mg/dL
[2023-12-31 13:59] LABS: Lactic Acid 1.3 mmol/L (0.4-1.9)
[2023-12-31] MEDS: Piperacil/Tazobactam 3.375 GM in 0.9% Normal Saline (50mL MB+) 50 ML IV ×2 (15:14→21:18)
--- NOTE | 2023-12-31 15:25 | PCM.HP.STD ---
HPI - General General Date of Admission: 12/31/23 Date of Service: 12/31/23 Chief Complaint: Altered level of consciousness, lethargy HPI Narrative FRANCIS MORTON, is a 68 M who presents to the emergency room at [facility] after being sent in from a local extended care facility at which she was receiving inpatient rehab services due to lethargy and altered mental status. Patient has a history of alcoholic liver cirrhosis and cognitive impairment due to alcoholism, he was discharged from the hospital a few days ago after being treated for colitis. At the time of my examination, patient was not oriented as to exact place, he knew he was in [place], he was oriented as to self but not time. Workup in the emergency room included a CBC which showed an elevated white blood cell count at 29.5, BUN was elevated at 26, AST was elevated at 111, alkaline phosphatase was elevated at 301, and beta nitric peptide was elevated at 113.2. Patient's ammonia level was lower than 10. Lipase was noted to be elevated at 512. Chest x-ray showed bilateral infiltrates along with marked pleural effusions bilaterally. Abdominal CT was not performed. Patient will be admitted to [facility] [place] for bilateral pneumonia and pleural effusions, he will be placed on IV antibiotics, he will undergo a ultrasound-guided paracentesis, he will most probably need a right thoracentesis, I will place him on mild diuresis with Lasix 20 mg IV every 12 hours. Patient will have an echocardiogram repeated due to his history of ischemic cardiomyopathy-patient's last echo was almost 2 years ago and it showed an EF of 35%. Patient is a DNR CC arrest no intubation. 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 Essential hypertension Femoral neck fracture Former tobacco use Frequent falls History of alcoholism Hyperlipidemia Hyponatremia Incontinence of feces Incontinence of urine Ischemic cardiomyopathy Non-pressure chronic ulcer of other part of right foot with fat layer exposed Physical debility Pulmonary nodule Stage 1 mild COPD by GOLD classification Syndrome of inappropriate ADH (SIADH) secretion Tinea unguium Unable to ambulate Ventricular tachycardia Home Medications amiodarone 200 mg tablet 200 mg PO DAILY IRREGULAR HEARTBEAT 05/25/22 [History Last Taken Unknown] clopidogrel 75 mg tablet 75 mg PO DAILY BLOOD THINNER 05/25/22 [History Last Taken Unknown] metoprolol succinate 25 mg tablet,extended release 24 hr 12.5 mg PO DAILY BLOOD PRESSURE 05/25/22 [History Last Taken Unknown] acetaminophen 325 mg tablet 650 mg PO Q4H PRN PAIN 10/05/23 [History Last Taken Unknown] sodium chloride 1,000 mg soluble tablet 1,000 mg PO DAILY SUPPLEMENT 10/05/23 [History Last Taken Unknown] Prevagen Extra Strength 20 mg PO DAILY VITAMIN DEFICIENCY 12/22/23 [History Last Taken Unknown] aluminum-mag hydroxide-simethicone 200 mg-200 mg-20 mg/5 mL oral susp (Alcira-Lanta) 15 ml PO Q4H PRN INDIGESTION 12/22/23 [History Last Taken Unknown] furosemide 20 mg tablet 20 mg PO DAILY EDEMA 12/22/23 [History Last Taken Unknown] promethazine 12.5 mg tablet 12.5 mg PO Q6H PRN NAUSEA/VOMITING 12/22/23 [History Last Taken Unknown] trolamine salicylate 10 % topical cream (Pain Relief (trolamine salicylate)) 1 applic topical BID KNEE PAIN 12/22/23 [History Last Taken Unknown] nystatin 100,000 unit/gram topical powder (Nyamyc) 1 applic topical BID FUNGAL INFECTION #0 grams 12/27/23 [Rx Last Taken Unknown] sennosides 8.6 mg-docusate sodium 50 mg tablet (Stool Softener-Stimulant Laxative) 2 tab PO BID CONSTIPATION #0 tabs 12/27/23 [Rx Last Taken Unknown] thiamine HCl (vitamin B1) 100 mg tablet (Vitamin B-1) 100 mg PO BREAKFAST SUPPLEMENT #0 tabs 12/27/23 [Rx Last Taken Unknown] Lactobacillus rhamnosus GG 15 billion cell sprinkle capsule (Culturelle) 1 cap PO DAILY GUT HEALTH 12/31/23 [History Last Taken Unknown] albuterol sulfate 2.5 mg/3 mL (0.083 %) solution for nebulization 2.5 mg inhalation Q2H PRN SHORTNESS OF BREATH/WHEEZING 12/31/23 [History Last Taken Unknown] arginine 7 gram-glutamine 7 gram-calcium HMB 1.5 gram oral powder pack (Angel) 1 ea PO BID WOUND HEALING 12/31/23 [History Last Taken Unknown] lactulose 10 gram/15 mL (15 mL) oral solution 10 g PO 1000 HYPO-OSMALITY 12/31/23 [History Last Taken Unknown] lactulose 10 gram/15 mL oral solution 15 ml PO 1400,2000 HYPO-OSMALITY 12/31/23 [History Last Taken Unknown] lidocaine HCl 2 % mucosal solution (Lidocaine Viscous) 20 ml PO Q4H SORE THROAT/MOUTH 12/31/23 [History Last Taken Unknown] meloxicam 15 mg tablet 15 mg PO DAILY ARTHRITIS 12/31/23 [History Last Taken Unknown] paroxetine HCl 30 mg tablet 30 mg PO QHS DEPRESSION 12/31/23 [History Last Taken Unknown] potassium chloride 20 mEq tablet,extended release(part/cryst) 20 meq PO DAILY SUPPLEMENT 12/31/23 [History Last Taken Unknown] trazodone 50 mg tablet 150 mg PO QHS SLEEP 12/31/23 [History Last Taken Unknown] Allergy/AdvReac Type Severity Reaction Status Date / Time Iodine and Iodide Containing Allergy Severe Rash Verified 12/22/23 16:55 Produc ezetimibe [From Zetia] AdvReac Severe Myalgias Verified 12/22/23 16:55 Kcbqrsi-VXB-KeE Reductase AdvReac Severe Elevated Verified 12/22/23 16:55 Inhibitor Liver [Mgxxxyx-Iqh-Eqe Reductase Enzymes Inhibitor] duloxetine [From Cymbalta] AdvReac Orthostasis Verified 12/22/23 16:55 /hyponatrem ia Family History Grandmother Myocardial infarction Grandfather Myocardial infarction Surgical History History of coronary artery stent placement (02/17/19) History of implantable cardiac defibrillator (ICD) (10/31/17) History of left heart catheterization (LHC) (01/21/19) Hx of knee surgery Hx of total hip arthroplasty Social History housing: longterm number of children: 1 current occupational status: unemployed Smoking Status: Light Smoker (<10/day) how long ago did patient quit smoking: Smokes 2.5 packs per week. alcohol intake: former year quit: 2012 details: Sober 13-14 months. substance use type: other details: Has abused RX Ativan in the past, remains clean. well-balanced diet: other details: says that he gets meals on wheels and they pile upin the refrigerator caffeine: No during the past year weight has: other details: decreased 20 lbs since November what type of physical activity do you participate in: none duration: < 15 minutes/day seatbelt use: always do you feel safe at home: Yes ROS ROS Narrative Review of systems could not be obtained due to patient's encephalopathy and cognitive impairment. Vital Signs Vital Signs Vital Signs: 12/31/23 11:58 12/31/23 11:58 12/31/23 12:58 Temperature 97.6 F L Temperature Source Temporal Pulse Rate 101 H 102 H 99 Respiratory Rate 18 17 25 H Blood Pressure 122/85 H 139/98 H Blood Pressure Mean 97 111 Pulse Ox 95 93 92 Oxygen Delivery Method Nasal Cannula Nasal Cannula Nasal Cannula Oxygen Flow Rate (L/min) 2 2 12/31/23 13:00 12/31/23 14:00 12/31/23 15:00 Temperature Temperature Source Pulse Rate 104 H 92 94 Respiratory Rate 22 H 22 H 25 H Blood Pressure 125/77 H 126/73 H 122/78 H Blood Pressure Mean 93 90 92 Pulse Ox 95 96 96 Oxygen Delivery Method Nasal Cannula Nasal Cannula Nasal Cannula Oxygen Flow Rate (L/min) 2 2 2 12/31/23 15:02 Temperature 98.3 F Temperature Source Pulse Rate 97 Respiratory Rate 26 H Blood Pressure 122/78 H Blood Pressure Mean 92 Pulse Ox 95 Oxygen Delivery Method Oxygen Flow Rate (L/min) Weight Weight: 77.4 kg Body Mass Index (BMI) 23.1 Physical Exam Const alert and no apparent distress Constitutional Narrative: Patient appears older than his stated age, he appears unwell, he has cognitive impairment General Appearance: cooperative, well kempt and well developed Orientation / Consciousness: awake HEENT normocephalic and head/scalp atraumatic HEENT Narrative: Mucous membranes were dry. Eyes PERRL, EOMs intact bilaterally and conjunctivae normal Neck supple, no JVD, thyroid normal and no carotid bruits General: trachea midline Resp normal respiratory effort, no retractions and no use of accessory muscles Resp Narrative: Breath sounds were diminished bilaterally Auscultation: Negative for rales, rhonchi or wheezes Cardio regular rate, regular rhythm, S1 normal heart sound, S2 normal heart sound, no murmurs, no rub and no gallops GI normal to inspection, nondistended, normoactive bowel sounds, soft to palpation and non-tender GI Narrative: There was noted to be some mild abdominal distention present, abdomen was soft, bowel sounds were present Extremity no clubbing, cyanosis or edema Skin no rashes or lesions noted General Skin Exam: no breakdown Neuro CN's II-XII intact bilaterally Neuro Narrative: Patient is alert but confused Sensorium / Orientation: awake and alert Speech: speech normal Psych Psych Narrative: Patient is alert but confused Results Lab / Micro Data 12/31/23 12:35 12/31/23 12:35 Labs: Laboratory Results - last 24 hr 12/31/23 12:35: WBC 29.5 H, RBC 4.42 L, Hgb 13.8, Hct 40.2, MCV 91.0, MCH 31.2, MCHC 34.3, RDW Std Deviation 54.5 H, RDW Coeff of Yoli 17.2 H, Plt Count 496 H, MPV 10.6, Immature Gran % (Auto) 3.000 H, Neut % (Auto) 70.3 H, Lymph % (Auto) 13.8 L, Mason % (Auto) 11.3 H, Eos % (Auto) 1.0, Baso % (Auto) 0.6, Absolute Neuts (auto) 20.7 H, Absolute Lymphs (auto) 4.07, Nucleated RBC % 0, Differential Comment SCANNED, Diff Path Review March, PT 18.4 H, INR 1.5, APTT 33.7, Sodium 140, Potassium 4.0, Chloride 110 H, Carbon Dioxide 27.0, Anion Gap 3 L, BUN 26 H, Creatinine 0.74, Estim Creat Clear Calc 98.09, Est GFR (MDRD) Af Amer 136, Est GFR (MDRD) Non-Af 112, BUN/Creatinine Ratio 35.3 H, Glucose 116 H, Calcium 8.3 L, Total Bilirubin 0.80, Direct Bilirubin 0.42 H, AST 111 H, ALT 43, Alkaline Phosphatase 301 H, Ammonia < 10.0 L, B-Natriuretic Peptide Cancelled 12/31/23 12:35: B-Natriuretic Peptide 113.2 H, Total Protein 5.6 L, Albumin 2.0 L, Globulin 3.6, Lipase 512 H, Ethyl Alcohol < 3.0 12/31/23 13:17: Lactic Acid 1.3 Micro: Microbiology 12/31/23 13:35 Mucosa - Nose SARS-CoV-2, Influenza & RSV (PCR) - Final Rhythm Strip Rhythm Strip: Sinus Tach Rate: 103 Ectopy: None Imaging Radiology Impression Brain CT 12/31/23 12:17 IMPRESSION: Chronic involutional changes of the brain. Electronically Signed: Romero Real MD at 13:53 EST , Chest X-Ray 12/31/23 12:51 IMPRESSION: * No interval change in moderate to severe bilateral common area edema/underlying consolidation * No change in small to moderate-sized bilateral pleural effusions Electronically Signed: Romero Real MD at 13:51 EST Reading Location ID and State: [facility] / [place] , Service support , Assessment & Plan Assessment/Plan (1) Bilateral pneumonia: PLAN: Plan 1. Bilateral pneumonia-patient will be admitted to [facility] [place] [place], patient will be given IV Zosyn and be placed on aerosol treatments. #2 bilateral pleural effusions-most probably secondary to ascites-although patient may be an concomitant CHF. I will place the patient on low-dose IV Lasix, he may need a right thoracentesis #3 ascites secondary to alcoholic liver disease with cirrhosis-patient will undergo paracentesis tomorrow #4 hypoxia secondary to #1-patient's pulse ox will be monitored, oxygen will be adjusted as needed #5 cognitive impairment secondary to chronic alcoholism-complicates care, medical course, recovery, and prognosis Total clinical time spent by myself addressing the patient's medical issues, reviewing all of his data, and collaborating with patient's care team: 75 minutes Charges/Coding Visit Charges Inpatient E&M: 97570 Init Hosp L3
--- NOTE | 2023-12-31 15:33 | CON.PCM.GI_ITS ---
HPI Consult Data Date of Consult: 12/31/23 HPI Narrative Reason for Consultation: Altered mental status and ascites HPI Narrative: FRANCIS MORTON, is a 68-year-old gentleman was brought to ED by paramedics for a complaint of altered mental status from retirement with generalized weakness, not eating or drinking much. He has a history of chronic respiratory failure on 2 L of oxygen at baseline, coronary artery disease, ischemic cardiomyopathy, hypertension, COPD, alcoholic hepatitis, alcoholic cirrhosis presenting with episode of hypoxia as well as intermittent delirium. Per nursing report patient was found to be hypoxic with O2 saturation in the 80s however he taken off his oxygen. He always wears 2 L. He is also been reportedly having increased delirium. Has been seeing things in the room such as a small doctor with only 1 eye. Currently patient is behaving appropriately and just tells me that he thinks something is wrong with himself. He is hard to understand and has a very dry mouth. He has had some abdominal discomfort and swelling. He states that he had an episode of vomiting this morning. Is unclear about when his last bowel movement was. Tells me that he may have had a fall couple days ago but is not sure. In the ER on 12/22/2023 he was seen for generalized weakness. He had a chest x- ray that showed several rib fractures including the eighth and ninth ribs, CT of the abdomen pelvis with possible colitis as well as ascites. There is questionable focal pancreatitis. Patient was started on Cipro and Flagyl and discharged back to facility. He did negative CT of his brain at that time. He had a CT scan abdomen pelvis that displayed: Mildly prominent liver and spleen Massive abdominopelvic ascites possibly due to hepatocellular disease. Multifocal thickening of the chandler of the distal descending and sigmoid colon possibly representing colitis however clinical correlation is recommended. There is relatively hypoattenuated appearance to the head of the pancreas possibly representing focal pancreatitis [facility] Medical History Abnormal LFTs Adult failure to thrive Anxiety and depression Atherosclerotic heart disease of [place] coronary artery without angina pectoris Benzodiazepine abuse in remission C. 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 Essential hypertension Femoral neck fracture Former tobacco use Frequent falls History of alcoholism Hyperlipidemia Hyponatremia Incontinence of feces Incontinence of urine Ischemic cardiomyopathy Non-pressure chronic ulcer of other part of right foot with fat layer exposed Physical debility Pulmonary nodule Stage 1 mild COPD by GOLD classification Syndrome of inappropriate ADH (SIADH) secretion Tinea unguium Unable to ambulate Ventricular tachycardia Home Medications amiodarone 200 mg tablet 200 mg PO DAILY IRREGULAR HEARTBEAT 05/25/22 [History Last Taken Unknown] clopidogrel 75 mg tablet 75 mg PO DAILY BLOOD THINNER 05/25/22 [History Last Taken Unknown] metoprolol succinate 25 mg tablet,extended release 24 hr 12.5 mg PO DAILY BLOOD PRESSURE 05/25/22 [History Last Taken Unknown] acetaminophen 325 mg tablet 650 mg PO Q4H PRN PAIN 10/05/23 [History Last Taken Unknown] sodium chloride 1,000 mg soluble tablet 1,000 mg PO DAILY SUPPLEMENT 10/05/23 [History Last Taken Unknown] Prevagen Extra Strength 20 mg PO DAILY VITAMIN DEFICIENCY 12/22/23 [History Last Taken Unknown] aluminum-mag hydroxide-simethicone 200 mg-200 mg-20 mg/5 mL oral susp (Alcira- Lanta) 15 ml PO Q4H PRN INDIGESTION 12/22/23 [History Last Taken Unknown] furosemide 20 mg tablet 20 mg PO DAILY EDEMA 12/22/23 [History Last Taken Unknown] promethazine 12.5 mg tablet 12.5 mg PO Q6H PRN NAUSEA/VOMITING 12/22/23 [History Last Taken Unknown] trolamine salicylate 10 % topical cream (Pain Relief (trolamine salicylate)) 1 applic topical BID KNEE PAIN 12/22/23 [History Last Taken Unknown] nystatin 100,000 unit/gram topical powder (Nyamyc) 1 applic topical BID FUNGAL INFECTION #0 grams 12/27/23 [Rx Last Taken Unknown] sennosides 8.6 mg-docusate sodium 50 mg tablet (Stool Softener-Stimulant Laxative) 2 tab PO BID CONSTIPATION #0 tabs 12/27/23 [Rx Last Taken Unknown] thiamine HCl (vitamin B1) 100 mg tablet (Vitamin B-1) 100 mg PO BREAKFAST SUPPLEMENT #0 tabs 12/27/23 [Rx Last Taken Unknown] Lactobacillus rhamnosus GG 15 billion cell sprinkle capsule (Culturelle) 1 cap PO DAILY GUT HEALTH 12/31/23 [History Last Taken Unknown] albuterol sulfate 2.5 mg/3 mL (0.083 %) solution for nebulization 2.5 mg inhalation Q2H PRN SHORTNESS OF BREATH/WHEEZING 12/31/23 [History Last Taken Unknown] arginine 7 gram-glutamine 7 gram-calcium HMB 1.5 gram oral powder pack (Angel) 1 ea PO BID WOUND HEALING 12/31/23 [History Last Taken Unknown] lactulose 10 gram/15 mL (15 mL) oral solution 10 g PO 1000 HYPO-OSMALITY 12/31/23 [History Last Taken Unknown] lactulose 10 gram/15 mL oral solution 15 ml PO 1400,2000 HYPO-OSMALITY 12/31/23 [History Last Taken Unknown] lidocaine HCl 2 % mucosal solution (Lidocaine Viscous) 20 ml PO Q4H SORE THROAT/MOUTH 12/31/23 [History Last Taken Unknown] meloxicam 15 mg tablet 15 mg PO DAILY ARTHRITIS 12/31/23 [History Last Taken Unk nown] paroxetine HCl 30 mg tablet 30 mg PO QHS DEPRESSION 12/31/23 [History Last Taken Unknown] potassium chloride 20 mEq tablet,extended release(part/cryst) 20 meq PO DAILY SUPPLEMENT 12/31/23 [History Last Taken Unknown] trazodone 50 mg tablet 150 mg PO QHS SLEEP 12/31/23 [History Last Taken Unknown] Allergy/AdvReac Type Severity Reaction Status Date / Time Iodine and Iodide Containing Allergy Severe Rash Verified 12/22/23 16:55 Produc ezetimibe [From Zetia] AdvReac Severe Myalgias Verified 12/22/23 16:55 Izvmdhz-PFF-EdM Reductase AdvReac Severe Elevated Verified 12/22/23 16:55 Inhibitor Liver [Vlmcguv-Svm-Rpn Reductase Enzymes Inhibitor] duloxetine [From Cymbalta] AdvReac Orthostasis Verified 12/22/23 16:55 /hyponatrem ia Family History Grandmother Myocardial infarction Grandfather Myocardial infarction Surgical History History of coronary artery stent placement (02/17/19) History of implantable cardiac defibrillator (ICD) (10/31/17) History of left heart catheterization (LHC) (01/21/19) Hx of knee surgery Hx of total hip arthroplasty Social History housing: retirement number of children: 1 current occupational status: unemployed Smoking Status: Light Smoker (<10/day) how long ago did patient quit smoking: Smokes 2.5 packs per week. alcohol intake: former year quit: 2012 details: Sober 13-14 months. substance use type: other details: Has abused RX Ativan in the past, remains clean. well-balanced diet: other details: says that he gets meals on wheels and they pile upin the refrigerator caffeine: No during the past year weight has: other details: decreased 20 lbs since November what type of physical activity do you participate in: none duration: < 15 minutes/day seatbelt use: always do you feel safe at home: Yes ROS ROS Narrative Review of systems could not be obtained due to patient's encephalopathy and cognitive impairment. Physical Exam Const alert and no apparent distress Constitutional Narrative: Patient appears older than his stated age, he appears unwell, he has cognitive impairment General Appearance: cooperative, well kempt and well developed Orientation / Consciousness: awake HEENT normocephalic and head/scalp atraumatic HEENT Narrative: Mucous membranes were dry. Eyes PERRL, EOMs intact bilaterally and conjunctivae normal Neck supple, no JVD, thyroid normal and no carotid bruits General: trachea midline Resp normal respiratory effort, no retractions and no use of accessory muscles Resp Narrative: Breath sounds were diminished bilaterally Auscultation: Negative for rales, rhonchi or wheezes Cardio regular rate, regular rhythm, S1 normal heart sound, S2 normal heart sound, no murmurs, no rub and no gallops GI normal to inspection, nondistended, normoactive bowel sounds, soft to palpation and non-tender GI Narrative: There was noted to be some mild abdominal distention present, abdomen was soft, bowel sounds were present Extremity no clubbing, cyanosis or edema Skin no rashes or lesions noted General Skin Exam: no breakdown Neuro CN's II-XII intact bilaterally Neuro Narrative: Patient is alert but confused Sensorium / Orientation: awake and alert Speech: speech normal Psych Psych Narrative: Patient is alert but confused Lab / Micro Data 12/31/23 12:35 12/31/23 12:35 Labs: Laboratory Results - last 24 hr 12/31/23 12:35: WBC 29.5 H, RBC 4.42 L, Hgb 13.8, Hct 40.2, MCV 91.0, MCH 31.2, MCHC 34.3, RDW Std Deviation 54.5 H, RDW Coeff of [place] 17.2 H, Plt Count 496 H, MPV 10.6, Immature Gran % (Auto) 3.000 H, Neut % (Auto) 70.3 H, Lymph % (Auto) 13.8 L, [place] % (Auto) 11.3 H, Eos % (Auto) 1.0, Baso % (Auto) 0.6, Absolute Neuts (auto) 20.7 H, Absolute Lymphs (auto) 4.07, Nucleated RBC % 0, Differential Comment SCANNED, Diff Path Review March, PT 18.4 H, INR 1.5, APTT 33.7, Sodium 140, Potassium 4.0, Chloride 110 H, Carbon Dioxide 27.0, Anion Gap 3 L, BUN 26 H, Creatinine 0.74, Estim Creat Clear Calc 98.09, Est GFR (MDRD) Af Amer 136, Est GFR (MDRD) Non-Af 112, BUN/Creatinine Ratio 35.3 H, Glucose 116 H, Calcium 8.3 L, Total Bilirubin 0.80, Direct Bilirubin 0.42 H, AST 111 H, ALT 43, Alkaline Phosphatase 301 H, Ammonia < 10.0 L, B-Natriuretic Peptide Cancelled 12/31/23 12:35: B-Natriuretic Peptide 113.2 H, Total Protein 5.6 L, Albumin 2.0 L, Globulin 3.6, Lipase 512 H, Ethyl Alcohol < 3.0 12/31/23 13:17: Lactic Acid 1.3 Micro: Microbiology 12/31/23 13:35 Mucosa - Nose SARS-CoV-2, Influenza & RSV (PCR) - Final Rhythm Strip Rhythm Strip: Sinus Tach Rate: 103 Ectopy: None Imaging Radiology Impression Brain CT 12/31/23 12:17 IMPRESSION: Chronic involutional changes of the brain. Electronically Signed: Romero Real MD at 13:53 EST Reading Location ID and State: [address] [place] [id number] , Service support , Chest X-Ray 12/31/23 12:51 IMPRESSION: * No interval change in moderate to severe bilateral common area edema/underlying consolidation * No change in small to moderate-sized bilateral pleural effusions Electronically Signed: Romero Real MD at 13:51 EST Reading Location ID and State: [facility] / [place] , Service support , ADDENDUM: 12/31/23 1526 IMPRESSION: undefined Assessment & Plan Assessment/Plan (1) Colitis: PLAN: Plan 68-year-old gentleman was brought to ED by paramedics for a complaint of altered mental status from retirement with generalized weakness, not eating or drinking much. 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 Patient also complained of left lower quadrant abdominal pain. Cover for SBP. No fever or vomiting. 1 Acute distal descending and sigmoid colitis: Mild left lower quadrant tenderness. IV antibiotic switched to p.o Cipro and Flagyl. 2. Hypertension?continue routine home medications heart rate and blood pressure controlled. He would likely need to be switched to nadolol. 3. Ascites- with hepatic hydrothorax. He needs paracentesis. Check for SBP. He will likely need a VATS procedure in the future to prevent recurrent hepatic hydrothorax 4. 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 Decubitus ulcer of the coccyx region, right heel: Recommend Wound care nurse consult. 6. 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 Check for chronic hepatitis B chronic hepatitis C, hemochromatosis, autoimmune hepatitis. His current MELD is low at 18. He is a child Becker class C at this time. He is not a candidate for TIPS procedure due to history of recurrent auto mental status. TIPS would make his auto mental status worse. Continue lactulose 30 cc p.o. every 6 hours and started Xifaxan 550 mg p.o. 3 times daily. Check B12, folate, start thiamine 100 mg a day. Clinical Impression(s) from Imaging Studies Chest X-Ray 12/22/23 17:57 IMPRESSION: Mildly displaced fractures of the eighth and ninth ribs..Possible tiny left pleural effusion Abdomen/Pelvis CT 12/22/23 18:24 IMPRESSION: Mildly prominent liver and spleen Massive abdominopelvic ascites possibly due to hepatocellular disease. Multifocal thickening of the chandler of the distal descending and sigmoid colon possibly representing colitis however clinical correlation is recommended. There is relatively hypoattenuated appearance to the head of the pancreas possibly representing focal pancreatitis Other findings as above Brain CT 12/22/23 18:24 IMPRESSION: Atrophy and periventricular white matter ischemic change. No acute bleed. If concern for acute infarct MRI recommended. Electronically Signed: Zhao Mcallister MD at 19:00 EST , Charges/Coding Visit Charges Inpatient E&M: 03796 Subs Hosp L3
[2023-12-31 15:52] LABS: LDH 415 U/L (87-241)
[2023-12-31] MEDS: Furosemide 20 MG/2 ML VIAL IV (18:48)
[2023-12-31] MEDS: Ipratropium/Albuterol Sulfate 3 ML AMPUL.NEB INHALATION (20:40)
[2023-12-31] MEDS: Heparin Injection (Vial) 5,000 UNIT/ML VIAL 5000 UNIT SC (21:18)
[2023-12-31] MEDS: Juven (unflavored) Packet 1 PACKET PO (21:18)
[2023-12-31] MEDS: Lactulose 20 GM/30 ML UDC 10 GM PO (21:19)
[2024-01-01] VITALS (11 sets, daily range): BP systolic 103–121; BP diastolic 67–83; PULSE 65–106; RESP 14–20; TEMP 36–36.6; O2SAT 94–99
--- NOTE | 2024-01-01 05:55 | ECHOCS_ITS ---
Reason For Study: CHF Procedure This was a 2D Doppler, Color Flow transthoracic echocardiogram. The study was technically difficult. Contrast injection was performed. Exam performed portable in patient room. Left Ventricle Normal LV size. The estimated ejection fraction is 20 %. Stage 1 diastolic dysfunction. There is severe global hypokinesis of the left ventricle. Right Ventricle Normal RV size. ICD or pacer leads identified within the right ventricle. Normal systolic function. Atria Normal left atrium. Normal right atrium. ICD or pacer leads identified within the right atrium. No doppler evidence for ASD. Mitral Valve There is no mitral valve stenosis. Trivial mitral valve insufficiency. Tricuspid Valve There is no tricuspid stenosis. Unable to estimate RV systolic pressure due to inadequate jet, pulmonary artery pressure probably normal. Aortic Valve Trisinus/trileaflet aortic valve. There is no aortic stenosis. No aortic valve insufficiency. Pulmonic Valve There is no pulmonic valvular stenosis. No pulmonic valve insufficiency. Great Vessels Normal aortic root. Pericardium/Pleural No pericardial effusion. Moderate size right pleural effusion. Medication Diluted definity 3ml given slow IV push to enhance endocardial definition. MMode/2D Measurements & Calculations LVIDd: 6.0 cm LVPWd: 1.1 cm LA dimension: 3.3 cm LVIDs: 5.4 cm FS: 9.1 % LAV(MOD-sp4): 38.6 ml LVAd ap4: 45.8 cm2 SV(MOD-sp4): 44.8 ml LVLd ap4: 9.3 cm EDV(MOD-sp4): 183.7 ml EDV(sp4-el): 192.4 ml LVAs ap4: 37.8 cm2 LVLs ap4: 8.6 cm ESV(MOD-sp4): 138.9 ml ESV(sp4-el): 141.1 ml EF(MOD-sp4): 24.4 % EF(sp4-el): 26.6 % SV(sp4-el): 51.3 ml LA A4 area: 16.1 cm2 RA A4 area: 14.9 cm2 TAPSE: 2.0 cm Time Measurements MV dec time: 0.10 sec Doppler Measurements & Calculations MV E max mazin: 64.9 cm/sec Lat Peak E' Mazin: 9.8 cm/sec Med Peak E' Mazin: 7.2 cm/sec MV A max mazin: 33.6 cm/sec E/E' lat: 6.6 E/E' med: 9.0 MV E/A: 1.9 MV V2 max: 83.9 cm/sec MV P1/2t max mazin: 83.9 cm/sec Ao V2 max: 67.2 cm/sec MV max P.8 mmHg MV P1/2t: 34.7 msec Ao max P.8 mmHg MV V2 mean: 40.0 cm/sec MV mean P.80 mmHg MV dec slope: 709.1 cm/sec2 MV V2 VTI: 15.5 cm MVA(P1/2t): 6.3 cm2 LV V1 max: 63.6 cm/sec LV V1 max P.6 mmHg LV V1 mean P.78 mmHg LV V1 mean: 39.5 cm/sec LV V1 VTI: 8.5 cm ECHO/Echo Complete W/ Contrast Interpretation Summary The estimated ejection fraction is 20 %. There is severe global hypokinesis of the left ventricle. Stage 1 diastolic dysfunction. Trivial mitral valve insufficiency. Ordering Physician: Aidan Ames Referring Physician: Rashard Gandhi Performed By: Ronnell Casarez RCS
[2024-01-01] MEDS: Piperacil/Tazobactam 3.375 GM in 0.9% Normal Saline (50mL MB+) 50 ML IV ×3 (06:00→22:39)
[2024-01-01] MEDS: Ipratropium/Albuterol Sulfate 3 ML AMPUL.NEB INHALATION ×3 (07:46→19:35)
[2024-01-01 08:51] LABS: Anion Gap 2 (5-15); BUN 32 mg/dL (7-18); Calcium,Total 8.4 mg/dL (8.5-10.1); Chloride 115 mmol/L (98-107); Creatinine, Serum 0.82 mg/dL (0.70-1.30); EST Glomerular Filtration Rate 99 mL/min (>60); Est Glom Filt Rate - Afr Amer 120 mL/min (>60); Estimated Creatinine Clearance 86.55 ml/min; Glucose 107 mg/dL (74-106); Potassium 4.7 mmol/L (3.5-5.1); Sodium Level 141 mmol/L (136-145)
--- NOTE | 2024-01-01 09:44 | CASEMGMT ---
Patient is from [place] [employer]. Patient was recently at [facility] and discharged on Friday-. [place] did try to skill patient, but insurance denied. will follow for return to [place]. Sylvie ROSARIO
[2024-01-01] MEDS: Lidocaine 2% (20 ml mdv) 20 ML Vial INFILT (10:48)
[2024-01-01 11:28] LABS: Body Fluid Mononuclear WBC # 0.523 10^3/uL; Body Fluid Mononuclear WBC % 50.4 %; Body Fluid Polynuclear WBC # 0.515 10^3/uL; Body Fluid Polynuclear WBC % 49.6 %; Body Fluid Total Cells Counted 1.091 10^3/ul; Red Cell Count/Body Fluid 0.008 10^6/ul; White Blood Count/Body Fluid 1.038 10^3/uL
[2024-01-01] MEDS: Juven (unflavored) Packet 1 PACKET PO ×2 (11:49→22:40)
[2024-01-01] MEDS: Furosemide 20 MG/2 ML VIAL IV (11:49)
[2024-01-01] MEDS: Amiodarone 200 MG Tablet PO (11:49)
--- NOTE | 2024-01-01 12:27 | PRO.PCM_ITS ---
Procedure Report Date of Procedure: 01/01/24 Assessment & Plan Assessment/Plan (1) Abdominal ascites: QUALIFIERS: Ascites type: other type Qualified Code(s): R18.8 - Other ascites PLAN: PROCEDURE: Ultrasound guided paracentesis ORDERING PROVIDER: Dr. Ames INDICATION: Male, 68 years old. Abdominal ascites. PROVIDER: TIAGO Phillips TECHNIQUE: The risks, benefits, and alternatives to the procedure were explained to the patient and patient's brother via phone. The specific risks of bleeding, infection, and damage to bowel were detailed and accepted. Witnessed informed consent was obtained from patient's brother via phone. The abdomen was ultrasonographically surveyed. An appropriate pocket of fluid was identified in the left lower quadrant. The skin was prepped with chlorhexidine and sterile field established. 2% lidocaine was used for local anesthetic. Using ultrasound guidance, the peritoneal cavity was accessed with a 5-Kinyarwanda paracentesis needle/catheter system. The trocar was removed. A total of 2900 ml of dark werner colored fluid was removed from the peritoneal cavity. The catheter was removed and a sterile dressing was applied. The procedure was well tolerated. IMPRESSION: Successful ultrasound-guided paracentesis with left lower quadrant access site. Procedures Radiology Radiology US Procedures: 24308 Paracentesis
[2024-01-01 12:32] LABS: Glucose, Body Fluid 112 mg/dL (40-70); LDH,Body Fluid 226 Units/L (Not Establ.); Protein, Body Fluid 1.8 g/dL (Not Establ.)
--- NOTE | 2024-01-01 14:43 | WOUNDNOTE ---
wound photo: right lateral foot
--- NOTE | 2024-01-01 14:44 | WOUNDNOTE ---
wound photo: buttocks
--- NOTE | 2024-01-01 14:46 | WOUNDNOTE ---
wound photo: right back/scapula
--- NOTE | 2024-01-01 14:58 | PN_ITS ---
Subjective Subjective Patient seen and examined. He was alert and tried communicating, but his speech was difficult to understand. He admitted to not feeling well, but couldnt articulate further. Unable to do review of systems Objective Data Objective Data Vital Signs: Vital Signs Temp Pulse Resp BP Pulse Ox O2 Del Method O2 Flow Rate 96.8 F L 85 17 121/67 H 98 Nasal Cannula 2 01/01/24 11:00 01/01/24 13:43 01/01/24 13:43 01/01/24 11:14 01/01/24 11:00 01/01/24 14:00 01/01/24 14:30 Oxygen Flow Rate (L/min) 2 Oxygen Delivery Method Nasal Cannula Weight: 154 lb 5.177 oz Body Mass Index (BMI) 19.8 Intake & Output: Intake and Output for Last 24 Hours 12/30/23 12/31/23 01/01/24 23:59 23:59 23:59 Intake Total 670 / 670 100 / 100 Output Total 6000 / 6000 Balance 670 / 670 -5900 / -5900 Medical Nutrition Assessment Dietitian: Malnutrition Criteria Met Start: 01/01/24 11:38 Freq: Status: Active Protocol: Document 01/01/24 11:38 AG (Rec: 01/01/24 11:38 AG [id number]) Nutrition Malnutrition Evidence of Malnutrition Exists Yes Malnutrition (moderate): Acute Illness/Injury Evidenced By Suboptimal Energy Intake ( Moderate),Physical Changes ( Moderate) Clinical Problem Acute Disease or Injury Related Malnutrition Etiology acute on likely chronic moderate malnutrition related to inadequate energy intake Signs/Symptoms as evidenced by estimated PO intake meeting <75% of estimated energy needs > 1 week, Moderate muscle wasting/ fat loss evident per physical exam in orbital, clavicle, acromion, and temporal areas Status Active Problem Recommendation Dietitian Recommendations/Changes recommend advance diet as tolerated to regular, consider POLE SHAVER evaluation d/t poor dentition, may need modified textures. Angel BID and Ensure Plus High Protein 120mL 4x/ day when diet advanced Lab / Micro Data 12/31/23 12:35 01/01/24 07:20 Labs: Laboratory Results - last 24 hr 12/31/23 12:35: Lactate Dehydrogenase 415 H 01/01/24 07:20: Sodium 141, Potassium 4.7, Chloride 115 H, Carbon Dioxide 24.0, Anion Gap 2 L, BUN 32 H, Creatinine 0.82, Estim Creat Clear Calc 86.55, Est GFR (MDRD) Af Amer 120, Est GFR (MDRD) Non-Af 99, BUN/Creatinine Ratio 39.0 H, Glucose 107 H, Calcium 8.4 L 01/01/24 10:50: Fluid WBC 1.038, Fluid RBC 0.008, Fluid Tot Cell Count 1.091, Fld Polynuclear WBCs # 0.515, Fld Polynuclear WBCs % 49.6, Fluid Mononuclear WBCs 0.523, Fld Mononuclear WBCs % 50.4, Fluid Glucose 112 H, Fluid Total Protein 1.8, Fluid LDH 226 Micro: Microbiology 12/31/23 13:35 Mucosa - Nose SARS-CoV-2, Influenza & RSV (PCR) - Final Radiography Diagnostic Testing: Radiology Impression Chest X-Ray 12/31/23 12:51 IMPRESSION: * No interval change in moderate to severe bilateral common area edema/underlying consolidation * No change in small to moderate-sized bilateral pleural effusions Electronically Signed: Romero Real MD at 13:51 EST Reading Location ID and State: [address] [place] [address] , Service support , ADDENDUM: 12/31/23 1526 IMPRESSION: undefined Echocardiogram 01/01/24 05:55 Interpretation Summary The estimated ejection fraction is 20 %. There is severe global hypokinesis of the left ventricle. Stage 1 diastolic dysfunction. Trivial mitral valve insufficiency. Ordering Physician: Aidan Ames Referring Physician: Rashard Gandhi Performed By: Ronnell Casarez RCS Rhythm Strip Rhythm Strip: Sinus Tach Rate: 103 Ectopy: None Physical Exam Const alert Constitutional Narrative: very difficult to understand his speech General Appearance: cooperative Orientation / Consciousness: confused HEENT normocephalic and head/scalp atraumatic Eyes PERRL and EOMs intact bilaterally Neck no lymphadenopathy and supple Lymph Lymphatic: no lymphadenopathy noted and no lymphedema noted Cardio regular rate, regular rhythm, S1 normal heart sound, S2 normal heart sound and no murmurs GI normal to inspection, nondistended, normoactive bowel sounds, soft to palpation and non-tender Extremity normal capillary refill and no clubbing, cyanosis or edema General Extremity: no tenderness to palpation of joints or extremities Skin General Skin Exam: no breakdown Neuro CN's II-XII intact bilaterally and no focal motor deficits Motor Exam: general weakness Psych Mood & Affect: flat affect Assessment & Plan Assessment/Plan (1) Multifocal pneumonia: (2) Acute encephalopathy: (3) Abdominal ascites: QUALIFIERS: Ascites type: other type Qualified Code(s): R18.8 - Other ascites PLAN: Plan #Acute encephalopathy in the setting of community acquired pneumonia * Admitted from his shelter on account of weakness and lethargy. He was also confused. * Chest x-ray showed bilateral infiltrates along with marked pleural effusions bilaterally. Patient also had ascites in the setting of liver cirrhosis. * WBC was elevated at 29.5. Ammonia level was less than 10. * On IV Zosyn. Breathing treatments of bronchodilators. Titrate oxygen as need ed to maintain saturation above 90%. * #Cirrhosis with ascites, for paracentesis today. On lactulose. Also on furosemide. #CAD: * On Plavix and metoprolol. 2D echo done today showed EF of 20% with severe global hypokinesis of the left ventricle and stage I diastolic dysfunction. * EF from 2021 showed EF of 35% with stage I diastolic dysfunction and global hypokinesis of the left ventricle. * will consider cardiology consult in light of reduced EF. 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 #History of pulmonary nodule: Stable. Follow-up with pulmonology on outpatient basis #History of ventricular tachycardia: On amiodarone DVT prophylaxis: SCDs. Charges/Coding Visit Charges Inpatient E&M: 01116 Subs Hosp L3
[2024-01-01 15:07] LABS: Auto B Fluid Analyzer BKGD Ct COUNTS W/IN LIMITS (W/IN LIMITS); Lymphocytes 12 %; Macrophages 25 %; Mesothelial Cells 1 %; Monocytes 10 %; Neutrophil (Segs) 52 %
[2024-01-01 15:08] LABS: Appearance/Body Fluid SL CLDY; Body Fluid QC Type(s) BF1Q; Color/Body Fluid RED; Source- Body Fluid PERITONEAL FLUID
[2024-01-01] MEDS: Lactulose 20 GM/30 ML UDC 10 GM PO ×2 (15:33→22:40)
[2024-01-01 16:00] LABS: Absolute Lymphocyte Count 3.65 X10^3/uL (0.83-4.51); Absolute Neutrophil Count 21.2 X10^3/uL (2.0-7.7); Basophil# 0.12 X10^3/uL; Basophil% 0.4 % (0-1); Eosinophil# 0.39 X10^3/uL; Eosinophils% 1.3 % (0-5); Hemoglobin 14.3 g/dL (13.0-16.5); Lymphocyte # 3.65 X10^3/ul (0.83-4.51); Lymphocyte % 12.6 % (19-41); Mean Corpuscular Hgb 31.6 pg (27.0-32.0); Mean Corpuscular Volume 92.7 fL (80-94); Mean Platelet Vol. 10.5 fl (6.2-12.0); Monocyte# 3.13 X10^3/uL; Monocyte% 10.8 % (0-10); NRBC Flagged by Analyzer 0.1 % (0-5); Neutrophil # 21.22 X10^3/uL (2.7-7.7); POSITIVE DIFFERENTIAL YES; Platelet Count 499 K/mm3 (150-450); Red Blood Count 4.53 M/mm3 (4.6-6.2); White Blood Count 29.1 K/mm3 (4.4-11.0)
[2024-01-01 16:20] LABS: Differential Indicated SCAN CRITERIA MET
[2024-01-01 16:22] LABS: Anisocytosis RARE; Differential Comment SEE COMMENTS; Macrocytosis RARE; Ovalocyte RARE; Platelet Estimate MOD INC (ADEQ); Red Cell Morphology N CHROM NORMAL (NORM C&C)
[2024-01-01 16:23] LABS: Toxic Granulation 2+
--- NOTE | 2024-01-01 18:44 | EX.PCM.PN.GI ---
Subjective Subjective Patient seems to be out of it and not talking much. He has been getting breathing treatments today but has been very lethargic. Patient had a previous CT scan approximate 10 days ago that displayed: Mildly prominent liver and spleen Massive abdominopelvic ascites possibly due to hepatocellular disease. Multifocal thickening of the chandler of the distal descending and sigmoid colon possibly representing colitis however clinical correlation is recommended. There is relatively hypoattenuated appearance to the head of the pancreas possibly representing focal pancreatitis He had a echo today: The estimated ejection fraction is 20 %. There is severe global hypokinesis of the left ventricle. Stage 1 diastolic dysfunction. Trivial mitral valve insufficiency. Objective Data Objective Data Vital Signs: Vital Signs Temp Pulse Resp BP Pulse Ox O2 Del Method O2 Flow Rate 97.5 F L 105 H 14 109/80 98 Nasal Cannula 2 01/01/24 17:00 01/01/24 17:00 01/01/24 17:00 01/01/24 17:00 01/01/24 17:00 01/01/24 17:00 01/01/24 17:00 Oxygen Flow Rate (L/min) 2 Oxygen Delivery Method Nasal Cannula Weight: 154 lb 5.177 oz Body Mass Index (BMI) 19.8 Intake & Output: Intake and Output for Last 24 Hours 12/30/23 12/31/23 01/01/24 23:59 23:59 23:59 Intake Total 670 / 670 350 / 350 Output Total 9000 / 9000 Balance 670 / 670 -8650 / -8650 Medical Nutrition Assessment Dietitian: Malnutrition Criteria Met Start: 01/01/24 11:38 Freq: Status: Active Protocol: Document 01/01/24 11:38 AG (Rec: 01/01/24 11:38 [id number]) Nutrition Malnutrition Evidence of Malnutrition Exists Yes Malnutrition (moderate): Acute Illness/Injury Evidenced By Suboptimal Energy Intake ( Moderate),Physical Changes ( Moderate) Clinical Problem Acute Disease or Injury Related Malnutrition Etiology acute on likely chronic moderate malnutrition related to inadequate energy intake Signs/Symptoms as evidenced by estimated PO intake meeting <75% of estimated energy needs > 1 week, Moderate muscle wasting/ fat loss evident per physical exam in orbital, clavicle, acromion, and temporal areas Status Active Problem Recommendation Dietitian Recommendations/Changes recommend advance diet as tolerated to regular, consider SETTLEMENT TECHNICIAN evaluation d/t poor dentition, may need modified textures. Angel BID and Ensure Plus High Protein 120mL 4x/ day when diet advanced Lab / Micro Data 01/01/24 15:44 01/01/24 07:20 Labs: Laboratory Results - last 24 hr 01/01/24 07:20: Sodium 141, Potassium 4.7, Chloride 115 H, Carbon Dioxide 24.0, Anion Gap 2 L, BUN 32 H, Creatinine 0.82, Estim Creat Clear Calc 86.55, Est GFR (MDRD) Af Amer 120, Est GFR (MDRD) Non-Af 99, BUN/Creatinine Ratio 39.0 H, Glucose 107 H, Calcium 8.4 L 01/01/24 10:50: Fluid Source PERITONEAL FLUID, Fluid Color RED, Fluid Appearance SL CLDY, Fluid WBC 1.038, Fluid RBC 0.008, Fluid Tot Cell Count 1.091, Fld Polynuclear WBCs # 0.515, Fld Polynuclear WBCs % 49.6, Fluid Mononuclear WBCs 0.523, Fld Mononuclear WBCs % 50.4, Fluid Neutrophils 52, Fluid Lymphocytes 12, Fluid Monocytes 10, Fluid Macrophages 25, Fld Mesothelial Cells 1, Fl Pathologist Comment May follow, Fluid Glucose 112 H, Fluid Total Protein 1.8, Fluid LDH 226, Fluid Comment 2 SEE COMMENT 01/01/24 15:44: WBC 29.1 H, RBC 4.53 L, Hgb 14.3, Hct 42.0, MCV 92.7, MCH 31.6, MCHC 34.0, RDW Std Deviation 56.0 H, RDW Coeff of Yoli 18.0 H, Plt Count 499 H, MPV 10.5, Immature Gran % (Auto) 1.900 H, Neut % (Auto) 73.0 H, Lymph % (Auto) 12.6 L, [place] % (Auto) 10.8 H, Eos % (Auto) 1.3, Baso % (Auto) 0.4, Absolute Neuts (auto) 21.2 H, Absolute Lymphs (auto) 3.65, Nucleated RBC % 0.1, Differential Comment SEE COMMENTS, Diff Path Review March foll, Toxic Granulation 2+, Platelet Estimate MOD INC, RBC Morphology N CHROM, Anisocytosis RARE, Macrocytosis RARE, Ovalocytes RARE Micro: Microbiology 01/01/24 10:50 Fluid - Ascites Gram Stain - Final 12/31/23 13:35 Mucosa - Nose SARS-CoV-2, Influenza & RSV (PCR) - Final Radiography Diagnostic Testing: Radiology Impression Echocardiogram 01/01/24 05:55 Interpretation Summary The estimated ejection fraction is 20 %. There is severe global hypokinesis of the left ventricle. Stage 1 diastolic dysfunction. Trivial mitral valve insufficiency. Ordering Physician: Aidan Ames Referring Physician: Rashard Gandhi Performed By: Ronnell Casarez RCS Rhythm Strip Rhythm Strip: Sinus Tach Rate: 103 Ectopy: None Physical Exam Const alert Constitutional Narrative: very difficult to understand his speech General Appearance: cooperative Orientation / Consciousness: confused HEENT normocephalic and head/scalp atraumatic Eyes PERRL and EOMs intact bilaterally Neck no lymphadenopathy and supple Lymph Lymphatic: no lymphadenopathy noted and no lymphedema noted Cardio regular rate, regular rhythm, S1 normal heart sound, S2 normal heart sound and no murmurs GI normal to inspection, nondistended, normoactive bowel sounds, soft to palpation and non-tender Extremity normal capillary refill and no clubbing, cyanosis or edema General Extremity: no tenderness to palpation of joints or extremities Skin General Skin Exam: no breakdown Neuro CN's II-XII intact bilaterally and no focal motor deficits Motor Exam: general weakness Psych Mood & Affect: flat affect Assessment & Plan Assessment/Plan (1) Multifocal pneumonia: (2) Leukocytosis: (3) Acute encephalopathy: PLAN: Plan 68-year-old gentleman was brought to ED by paramedics for a complaint of altered mental status from longterm with generalized weakness, not eating or drinking much. 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 Patient also complained of left lower quadrant abdominal pain. Cover for SBP. No fever or vomiting. 1 Acute distal descending and sigmoid colitis: Mild left lower quadrant tenderness. IV antibiotic switched to p.o Cipro and Flagyl. 2. Hypertension?continue routine home medications heart rate and blood pressure controlled. He would likely need to be switched to nadolol. 3. Ascites- with hepatic hydrothorax. He needs paracentesis. Check for SBP. He will likely need a VATS procedure in the future to prevent recurrent hepatic hydrothorax 4. 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 Decubitus ulcer of the coccyx region, right heel: Recommend Wound care nurse consult. 6. 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 Check for chronic hepatitis B chronic hepatitis C, hemochromatosis, autoimmune hepatitis. His current MELD is low at 18. He is a child Becker class C at this time. He is not a candidate for TIPS procedure due to history of recurrent auto mental status. TIPS would make his auto mental status worse. Continue lactulose 30 cc p.o. every 6 hours and started Xifaxan 550 mg p.o. 3 times daily. Check B12, folate, start thiamine 100 mg a day. Clinical Impression(s) from Imaging Studies Chest X-Ray 12/22/23 17:57 IMPRESSION: Mildly displaced fractures of the eighth and ninth ribs..Possible tiny left pleural effusion Abdomen/Pelvis CT 12/22/23 18:24 IMPRESSION: Mildly prominent liver and spleen Massive abdominopelvic ascites possibly due to hepatocellular disease. Multifocal thickening of the chandler of the distal descending and sigmoid colon possibly representing colitis however clinical correlation is recommended. There is relatively hypoattenuated appearance to the head of the pancreas possibly representing focal pancreatitis Other findings as above Brain CT 12/22/23 18:24 IMPRESSION: Atrophy and periventricular white matter ischemic change. No acute bleed. If concern for acute infarct MRI recommended. Electronically Signed: Zhao Mcallister MD at 19:00 EST , 01/01/24-patient is still very. I cannot explain why his mental status is awaiting his right now. I am suspecting that recently he had pancreatitis and possibly resulted in ARDS and subsequent renal failure and bilateral pleural effusions. In that setting he may have developed community-acquired pneumonia since being out of the hospital. His platelet count is not consistent with cirrhosis even if it is an acute phase reactant in the setting of an infection from pneumonia. His paracentesis fluid did not look like SBP. 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 Recommend diuresis. Patient continue antibiotics. He should undergo an upper endoscopy to evaluate his upper GI tract to see if he has any signs of varices or portal hypertension. N.p.o. past midnight for possible upper endoscopy tomorrow. Charges/Coding Visit Charges Inpatient E&M: 40034 [facility] L3
[2024-01-01 19:23] LABS: Erythrocyte Sedimentation Rate 6 mm/hr (0-20)
[2024-01-01 20:26] LABS: Amylase 548 U/L (25-115); CPK Total, Creatine Kinase 66 U/L (39-308); LDH 606 U/L (87-241); Lipase 498 U/L (13-75)
[2024-01-01 20:45] LABS: International Normalized Ratio 1.7; Prothrombin Time (Protime)PT. 19.5 SECONDS (11.7-14.9)
[2024-01-01 21:05] LABS: Ammonia < 10.0 umol/L (11-32)
[2024-01-01 21:15] LABS: Lactic Acid 2.3 mmol/L (0.4-1.9)
[2024-01-02] VITALS (12 sets, daily range): BP systolic 110–123; BP diastolic 68–89; PULSE 96–105; RESP 16–20; TEMP 36.1–36.6; O2SAT 91–100
[2024-01-02 00:31] LABS: Reflex Lactate? Y
[2024-01-02 02:08] LABS: Lactic Acid 2.1 mmol/L (0.4-1.9)
[2024-01-02] MEDS: Lactated Ringers 1,000 ML 15 ML IV (06:28)
--- NOTE | 2024-01-02 07:00 | EGD_PTH ---
PATHOLOGY RESULTS PATIENT: FRANCIS MORTON LOC: MS3 U#:[id number] AGE/SX: 68/M ROOM: [facility] [place]: Dr. Farhan Salvador DO : 1955 BED: 1 DIS: 01/10/2024 SPEC #: [id number] RECD: 01/02/24 11:15 STATUS: LOREN REMarquita #: [id number] ANICETO: 01/02/24 07:[address]: Phil Vazquez DEPT: SURGICAL PATHOLOGY RECD BY: Margoth Sanchez ENTERED: 01/02/24 11:15 SP TYPE: EGD BIOPSY OTHR DR: MD Dr. Aidan Zhong DO Dr. Nana Yaa Koram, MD Tissues: Gastric mucous membrane Duodenum, NOS Procedures: Surgery Specimen Level IV Comments: @ Ordering doctor for SHREE edited from to @ by ZION at 01/02/24 1501 @ Submitting doctor edited from to @ by RGOOD at 01/02/24 1501 HEADER OPERATION: EGD PRE-OP DIAGNOSIS: GI bleed TISSUE SUBMITTED: A - Gastric cardia ulcer biopsy, B - Duodenal polyp biopsy MICROSCOPIC DIAGNOSIS A. Gastric cardia ulcer, biopsy: Focal mucosal ulceration with associated early granulation. Chronic gastritis. See comment. B. Duodenal polyp, biopsy: Gastric metaplasia. Mild nonspecific chronic inflammation. AM:mary 01/05/2024 COMMENT A. The results of immunohistochemistry for Helicobacter pylori will be reported separately ([id number]). Case has been reviewed in consultation with Dr. Marte who concurs with the above diagnosis. IDC:[id number] MICROSCOPIC DESCRIPTION Slides are reviewed. GROSS DESCRIPTION A - Received in fixative is one container labeled with the patient's name and designated gastric cardia. The specimen consists of two irregular fragments of light de [place]os soft tissue that in aggregate measure 0.6 x 0.5 x 0.1 cm. The specimen is totally submitted in one cassette. B - Received in fixative is one container labeled with the patient's name and designated duodenal polyp biopsy. The specimen consists of two irregular fragments of light de [place] soft tissue that in aggregate measure 0.6 x 0.5 x 0.1 cm. The specimen is totally submitted in one cassette. / AM:mary 01/02/2024 TC:3 CPT: 36957 x2
--- NOTE | 2024-01-02 07:00 | IMM_PTH ---
PATHOLOGY RESULTS PATIENT: FRANCIS MORTON LOC: MS3 U#:[id number] AGE/SX: 68/M ROOM: [facility] [place] RE12/31/[address]: Dr. Farhan Salvador DO : 1955 BED: 1 DIS: 01/10/2024 SPEC #: [id number] RECD: 01/02/24 13:24 STATUS: LOREN REQ #: [id number] ANICETO: 01/02/24 07:[address]: Phil Vazquez DEPT: IMMUNOHISTOCHEMISTRY RECD BY: Fatoumata Shin ENTERED: 01/02/24 13:25 SP TYPE: IMMUNO OTHR DR: MD Dr. Aidan Zhong DO Dr. Nana Yaa Koram, MD Tissues: Stomach, NOS Procedures: H Pylori (initial) PHYSICIAN & INSTITUTION [place] [id number] SPECIMEN INFORMATION: Tissue Source: A - Gastric cardia ulcer Clinical Info: GI bleed Specimen Number: [id number] CPT code: 82623 METHODOLOGY: Deparaffinized sections of prefer/formalin-fixed tissue or PAP/DQ stained slides are incubated with monoclonal/polyclonal antibodies/oligonucleotide probes. Localization is made via biotin free immunoperoxidase method. Appropriate controls are performed and reacted as expected. Results on target cell population are indicated in the following table: RESULTS: ANTIBODY / CLONE RESULT Block A H Pylori (polyclonal) negative These tests were developed and their performance characteristics determined by [facility]. They may not have been cleared or approved by the U.S. Food and Drug Administration. The FDA has determined that such clearance or approval is not necessary. The above immunohistochemical/dualISH markers are ordered and reviewed by the Pathologist. INTERPRETATION: A. Gastric cardia ulcer, biopsy: Negative for Helicobacter pylori organisms. AM:mary 01/06/2024
--- NOTE | 2024-01-02 07:24 | OP.CCLET_ITS ---
01/02/2024 Rashard Gandhi MD [address] [place] [address] [place] [address] Re : Upper GI endoscopy procedure for Oscar Paulino Dear Dr. Gandhi This procedure was performed on Tuesday, January 02, 2024. My impressions and recommendations are as follows: Impressions : - Normal esophagus. - Acute gastritis. Biopsied. - Oozing gastric ulcers with pigmented material. Treated with a heater probe. - A single duodenal polyp. Incomplete resection. Resected tissue retrieved. Recommendations : - [facility] patient to [facility]. - Resume previous diet. - Use Protonix (pantoprazole) 40 mg PO BID. - Continue present medications. My findings are described in the full procedure note, which is enclosed. If I can be of further assistance, please feel free to contact me at . Sincerely, Phil Vazquez, 01/02/2024 7:24:24 AM This report has been signed electronically.
--- NOTE | 2024-01-02 07:24 | OP.EGD_ITS ---
Patient Name: Oscar Paulino Procedure Date: 01/02/2024 7:04 AM Date of : 1955 Age: 68 Procedure: Upper GI endoscopy Indications: Epigastric abdominal pain, Iron deficiency anemia, Coffee-ground emesis Providers: Phil Vazquez DO Medicines: Monitored Anesthesia Care Patient Profile: This is a 68 year old male. Refer to note in patient chart for documentation of history and physical. Patient has symptoms of acute abdominal distention. Complications: No immediate complications. Procedure: Pre-Anesthesia Assessment: - Prior to the procedure, a History and Physical was performed, and patient medications and allergies were reviewed. The risks and benefits of the procedure and the sedation options and risks were discussed with the patient. All questions were answered and informed consent was obtained. Patient identification and proposed procedure were verified by the physician. Mental Status Examination: normal. Prophylactic Antibiotics: The patient does not require prophylactic antibiotics. Prior Anticoagulants: The patient has taken no anticoagulant or antiplatelet agents. ASA Grade Assessment: III - A patient with severe systemic disease. After reviewing the risks and benefits, the patient was deemed in satisfactory condition to undergo the procedure. The anesthesia plan was to use monitored anesthesia care (MAC). Immediately prior to administration of medications, the patient was re-assessed for adequacy to receive sedatives. The heart rate, respiratory rate, oxygen saturations, blood pressure, adequacy of pulmonary ventilation, and response to care were monitored throughout the procedure. The physical status of the patient was re-assessed after the procedure. After obtaining informed consent, the endoscope was passed under direct vision. Throughout the procedure, the patient's blood pressure, pulse, and oxygen saturations were monitored continuously. The Endoscope was introduced through the mouth, and advanced to the second part of duodenum. The upper GI endoscopy was accomplished without difficulty. The patient tolerated the procedure well. Scope In: 7:14:19 AM Scope Out: 7:20:10 AM Total Procedure Duration Time 0 hours 5 minutes 51 seconds Findings: The examined esophagus was normal. Localized severe inflammation characterized by congestion (edema), erosions and erythema was found in the cardia. Biopsies were taken with a cold forceps for histology. Verification of patient identification for the specimen was done. Biopsies were taken with a cold forceps for Helicobacter pylori testing. Verification of patient identification for the specimen was done. Estimated blood loss was minimal. Few oozing linear gastric ulcers with pigmented material were found in the gastric fundus. The largest lesion was 6 mm in largest dimension. Coagulation for hemostasis using heater probe was successful. Estimated blood loss was minimal. A single 5 mm sessile polyp was found in the duodenal bulb. The polyp was removed with a cold snare. Polyp resection was incomplete. The resected tissue was retrieved. Verification of patient identification for the specimen was done. Estimated blood loss was minimal. Impression: - Normal esophagus. - Acute gastritis. Biopsied. - Oozing gastric ulcers with pigmented material. Treated with a heater probe. - A single duodenal polyp. Incomplete resection. Resected tissue retrieved. Recommendation: - Return patient to [facility] for ongoing care. - Resume previous diet. - Use Protonix (pantoprazole) 40 mg PO BID. - Continue present medications. Procedure Code(s): --- Professional --- 46534, 59, Esophagogastroduodenoscopy, flexible, transoral; with control of bleeding, any method 00298, Esophagogastroduodenoscopy, flexible, transoral; with removal of tumor(s), polyp(s), or other lesion(s) by snare technique 13747, 59,51, Esophagogastroduodenoscopy, flexible, transoral; with biopsy, single or multiple CPT copyright 2021 [employer]. All rights reserved. The codes documented in this report are preliminary and upon entry writer review may be revised to meet current compliance requirements. Phil Vazquez DO 01/02/2024 7:24:24 AM This report has been signed electronically. Number of Addenda: 0 Note Initiated On: 01/02/2024 7:04 AM
[2024-01-02] MEDS: Piperacil/Tazobactam 3.375 GM in 0.9% Normal Saline (50mL MB+) 50 ML IV ×3 (08:37→23:13)
--- NOTE | 2024-01-02 09:04 | CASEMGMT ---
Discharge Planning Updates sent to [facility] via [employer]. Requested wknd report phone/fax. Simona Chandra, Discharge Planning Asst.
--- NOTE | 2024-01-02 09:31 | CASEMGMT ---
Addendum entered by Kate Kerns 01/02/24 15:41: Social Work SW spoke to pt's brother again, let him know what SW learned about pt's insurance. SW educated brother about pt's [employer], and that [employer] will only cover therapy and pt's long term stay if pt is able to participate in therapy and make improvements. SW reviewed pt's therapy w/pt's brother and explained to him that pt is having trouble participating. Pt's brother states understanding. Pt's brother then went on to speak w/SW about the pt's change in condition in recent months, SW offered support. SW asked if he would like to speak w/the doctor, he would. SW asked Dr. Kathleen to call pt's brother, she states will call him tomorrow. Updates were sent earlier, SW sent a note to [facility] via [employer] asking them to call [facility] if they get precert on the weekend. Green sheet and transport form on chart. JORDAN [place] Addendum entered by Kate Kerns 01/02/24 14:19: Social Work D/C construction assistant sent updates to [facility] and asked them to start precert for pt. SW called pt's brother to update him, let him know what SW learned about insurance, call went to voicemail that is not set up. SW will continue to follow. JORDAN [place] Addendum entered by Kate Kerns 01/02/24 11:42: Social Work SW spoke w/Sridevi, she confirmed pt is private pay. She states she is not certain how pt has Medicaid as pt has financial assets. The plan would be then for pt to try to get skilled through his [employer] again, before returning to [facility]. ROLANDO let physician know. Sridevi then called, she states pt had community Medicaid prior to his hospitalizations and SNF stay. He does not have director long term care Medicaid, she states he has $46,000 in assets. JORDAN [place] Original Note: Social Work SW called pt's brother Donnell Paulino in regard to discharge plan. He would like pt to return under his [employer], states pt has been private paying at [facility]. SW inquired why, as it appears pt has Medicaid. Pt's brother states he just gave them a check for $19.000. ROLANDO will call [facility] to inquire what the payor situation. ROLANDO called [facility], message left for Sridevi to call ROLANDO. ROLANDO will continue to follow. JORADN [place]aya
[2024-01-02 10:14] LABS: Pathologist Review Reviewed
[2024-01-02] MEDS: Furosemide 40 MG/4 ML Vial IV (11:54)
[2024-01-02] MEDS: Juven (unflavored) Packet 1 PACKET PO ×2 (11:55→23:13)
[2024-01-02] MEDS: Amiodarone 200 MG Tablet PO (11:55)
[2024-01-02] MEDS: Ipratropium/Albuterol Sulfate 3 ML AMPUL.NEB INHALATION ×2 (12:51→19:17)
--- NOTE | 2024-01-02 13:16 | PCM.PROGNOTE ---
Subjective Subjective Patient seen and examined. He had just come back from his EGD. His speech does remain a bit flat but is more unstable today. He said he had an occasional cough. He denied any chest pain, shortness of breath or any other symptoms. Review of systems otherwise negative. He has remained medically stable. Objective Data Objective Data Vital Signs: Vital Signs Temp Pulse Resp BP Pulse Ox O2 Del Method O2 Flow Rate 97.0 F L 103 H 18 117/79 96 Room Air 2 01/02/24 08:44 01/02/24 08:44 01/02/24 08:44 01/02/24 08:44 01/02/24 08:44 01/02/24 09:00 01/02/24 08:44 Oxygen Flow Rate (L/min) 2 Oxygen Delivery Method Room Air Weight: 154 lb 5.177 oz Body Mass Index (BMI) 19.8 Intake & Output: Intake and Output for Last 24 Hours 12/31/23 01/01/24 01/02/24 23:59 23:59 23:59 Intake Total 670 / 670 350 / 350 135.25 / 135.25 Output Total 9000 / 9000 Balance 670 / 670 -8650 / -8650 135.25 / 135.25 Medical Nutrition Assessment Dietitian: Malnutrition Criteria Met Start: 01/01/24 11:38 Freq: Status: Active Protocol: Document 01/01/24 11:38 AG (Rec: 01/01/24 11:38 [id number]) Nutrition Malnutrition Evidence of Malnutrition Exists Yes Malnutrition (moderate): Acute Illness/Injury Evidenced By Suboptimal Energy Intake ( Moderate),Physical Changes ( Moderate) Clinical Problem Acute Disease or Injury Related Malnutrition Etiology acute on likely chronic moderate malnutrition related to inadequate energy intake Signs/Symptoms as evidenced by estimated PO intake meeting <75% of estimated energy needs > 1 week, Moderate muscle wasting/ fat loss evident per physical exam in orbital, clavicle, acromion, and temporal areas Status Active Problem Recommendation Dietitian Recommendations/Changes recommend advance diet as tolerated to regular, consider FRONT DESK HOST evaluation d/t poor dentition, may need modified textures. Angel BID and Ensure Plus High Protein 120mL 4x/ day when diet advanced Lab / Micro Data 01/01/24 15:44 01/01/24 07:20 Labs: Laboratory Results - last 24 hr 12/31/23 12:35: Diff Path Review Reviewed 01/01/24 07:20: Lactate Dehydrogenase 606 H, Total Creatine Kinase 66, C-React Prot Ext Range 112.00 H, Amylase 548 H, Lipase 498 H 01/01/24 10:50: Fluid Source PERITONEAL FLUID, Fluid Color RED, Fluid Appearance SL CLDY, Fluid WBC 1.038, Fluid RBC 0.008, Fluid Tot Cell Count 1.091, Fld Polynuclear WBCs # 0.515, Fld Polynuclear WBCs % 49.6, Fluid Mononuclear WBCs 0.523, Fld Mononuclear WBCs % 50.4, Fluid Neutrophils 52, Fluid Lymphocytes 12, Fluid Monocytes 10, Fluid Macrophages 25, Fld Mesothelial Cells 1, Fl Pathologist Comment May follow, Fluid Comment 2 SEE COMMENT 01/01/24 15:44: WBC 29.1 H, RBC 4.53 L, Hgb 14.3, Hct 42.0, MCV 92.7, MCH 31.6, MCHC 34.0, RDW Std Deviation 56.0 H, RDW Coeff of Yoli 18.0 H, Plt Count 499 H, MPV 10.5, Immature Gran % (Auto) 1.900 H, Neut % (Auto) 73.0 H, Lymph % (Auto) 12.6 L, [place] % (Auto) 10.8 H, Eos % (Auto) 1.3, Baso % (Auto) 0.4, Absolute Neuts (auto) 21.2 H, Absolute Lymphs (auto) 3.65, Nucleated RBC % 0.1, Differential Comment SEE COMMENTS, Diff Path Review May foll, Toxic Granulation 2+, Platelet Estimate MOD INC, RBC Morphology N CHROM, Anisocytosis RARE, Macrocytosis RARE, Ovalocytes RARE, ESR 6 01/01/24 20:25: PT 19.5 H, INR 1.7, Lactic Acid 2.3 H*, Ammonia < 10.0 L 01/02/24 01:05: Lactic Acid 2.1 H* Micro: Microbiology 12/31/23 13:35 Blood Culture (Wb) - Left Hand Blood Culture - Preliminary No growth in 48 hours. 12/31/23 13:17 Blood Culture (Wb) - Anticubital Right Blood Culture - Preliminary No growth in 48 hours. 01/01/24 10:50 Fluid - Ascites Gram Stain - Final 12/31/23 13:35 Mucosa - Nose SARS-CoV-2, Influenza & RSV (PCR) - Final Rhythm Strip Rhythm Strip: Sinus Tach Rate: 103 Ectopy: None Physical Exam Const alert and no apparent distress Constitutional Narrative: very difficult to understand his speech General Appearance: cooperative, well kempt and well developed Orientation / Consciousness: awake HEENT normocephalic and head/scalp atraumatic Eyes PERRL, EOMs intact bilaterally and conjunctivae normal Neck no lymphadenopathy, supple, no JVD, thyroid normal and no carotid bruits General: trachea midline Lymph Lymphatic: no lymphadenopathy noted and no lymphedema noted Resp normal respiratory effort, no retractions and no use of accessory muscles Resp Narrative: Breath sounds were diminished bilaterally Auscultation: Negative for rales, rhonchi or wheezes Cardio regular rate, regular rhythm, S1 normal heart sound, S2 normal heart sound, no murmurs, no rub and no gallops GI normal to inspection, nondistended, normoactive bowel sounds, soft to palpation and non-tender Extremity normal capillary refill and no clubbing, cyanosis or edema General Extremity: no tenderness to palpation of joints or extremities Skin no rashes or lesions noted General Skin Exam: no breakdown Neuro CN's II-XII intact bilaterally and no focal motor deficits Neuro Narrative: Patient is alert but confused Sensorium / Orientation: awake and alert Speech: speech normal Motor Exam: strength 5/5 throughout and general weakness Psych Psych Narrative: Patient is alert but confused Mood & Affect: flat affect Assessment & Plan Assessment/Plan (1) Multifocal pneumonia: (2) Acute encephalopathy: (3) Abdominal ascites: QUALIFIERS: Ascites type: other type Qualified Code(s): R18.8 - Other ascites PLAN: Plan #Acute encephalopathy in the setting of community acquired pneumonia Admitted from his [facility] on account of weakness and lethargy. He was also confused. Chest x-ray showed bilateral infiltrates along with marked pleural effusions bilaterally. Patient also had ascites in the setting of liver cirrhosis. WBC was elevated at 29.1 today. Ammonia level was less than 10. On IV Zosyn. Breathing treatments of bronchodilators. Titrate oxygen as needed to maintain saturation above 90%. ID consulted in light of persistent leukocytosis. #Cirrhosis with ascites: s/p paracentesis. On lactulose and furosemide. FLuid cultures pending. F Fluid polymorphonuclear cells were 496. Currently on IV Zosyn which should cover SBP. He is not having any abdominal pain. #CAD: On Plavix and metoprolol. 2D echo done today showed EF of 20% with severe global hypokinesis of the left ventricle and stage I diastolic dysfunction. EF from 2021 showed EF of 35% with stage I diastolic dysfunction and global hypokinesis of the left ventricle. discussed with Dr Delgado-patient care associate managing consultant; per discussion, no active intervention for the drop in EF. Continue current medications and patient follow-up with cardiology on outpatient basis. 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 #History of pulmonary nodule: Stable. Follow-up with pulmonology on outpatient basis #History of ventricular tachycardia: On amiodarone DVT prophylaxis: SCDs. Charges/Coding Visit Charges Inpatient E&M: 98516 Subs Hosp L2
--- NOTE | 2024-01-02 14:20 | CON.PCM.ID_ITS ---
Assessment & Plan Assessment/Plan (1) Leukocytosis: PLAN: Paracentesis shows SBP with neutrophil count of 515. Fluid cx pending. Bcx neg so far. Cont zosyn. Will follow, thank you (2) Acute encephalopathy: (3) Abdominal ascites: QUALIFIERS: Ascites type: other type Qualified Code(s): R18.8 - Other ascites HPI Consult Data Date of Consult: 01/02/24 HPI Narrative Reason for Consultation: leukocytosis HPI Narrative: FRANCIS MORTON, is a 68 M with etoh cirrhosis, came to ED from [facility] 12/31/23 after recent admit for colitis, treated with cipro and flagyl. Had acute onset altered mental status, started on zosyn, seen by GI. Paracentesis done . Pt unable to provide history or ROS due to altered mental status. [facility] Medical History Abnormal LFTs Adult failure to thrive Anxiety and depression Atherosclerotic heart disease of [place] coronary artery without angina pectoris Benzodiazepine abuse in remission C. 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 Essential hypertension Femoral neck fracture Former tobacco use Frequent falls History of alcoholism Hyperlipidemia Hyponatremia Incontinence of feces Incontinence of urine Ischemic cardiomyopathy Non-pressure chronic ulcer of other part of right foot with fat layer exposed Physical debility Pulmonary nodule Stage 1 mild COPD by GOLD classification Syndrome of inappropriate ADH (SIADH) secretion Tinea unguium Unable to ambulate Ventricular tachycardia Home Medications amiodarone 200 mg tablet 200 mg PO DAILY IRREGULAR HEARTBEAT 05/25/22 [History Last Taken Unknown] clopidogrel 75 mg tablet 75 mg PO DAILY BLOOD THINNER 05/25/22 [History Last Taken Unknown] metoprolol succinate 25 mg tablet,extended release 24 hr 12.5 mg PO DAILY BLOOD PRESSURE 05/25/22 [History Last Taken Unknown] acetaminophen 325 mg tablet 650 mg PO Q4H PRN PAIN 10/05/23 [History Last Taken Unknown] sodium chloride 1,000 mg soluble tablet 1,000 mg PO DAILY SUPPLEMENT 10/05/23 [History Last Taken Unknown] Prevagen Extra Strength 20 mg PO DAILY VITAMIN DEFICIENCY 12/22/23 [History Last Taken Unknown] aluminum-mag hydroxide-simethicone 200 mg-200 mg-20 mg/5 mL oral susp (Alcira- Lanta) 15 ml PO Q4H PRN INDIGESTION 12/22/23 [History Last Taken Unknown] furosemide 20 mg tablet 20 mg PO DAILY EDEMA 12/22/23 [History Last Taken Unknown] promethazine 12.5 mg tablet 12.5 mg PO Q6H PRN NAUSEA/VOMITING 12/22/23 [History Last Taken Unknown] trolamine salicylate 10 % topical cream (Pain Relief (trolamine salicylate)) 1 applic topical BID KNEE PAIN 12/22/23 [History Last Taken Unknown] nystatin 100,000 unit/gram topical powder (Nyamyc) 1 applic topical BID FUNGAL INFECTION #0 grams 12/27/23 [Rx Last Taken Unknown] sennosides 8.6 mg-docusate sodium 50 mg tablet (Stool Softener-Stimulant Laxative) 2 tab PO BID CONSTIPATION #0 tabs 12/27/23 [Rx Last Taken Unknown] thiamine HCl (vitamin B1) 100 mg tablet (Vitamin B-1) 100 mg PO BREAKFAST SUPPLEMENT #0 tabs 12/27/23 [Rx Last Taken Unknown] Lactobacillus rhamnosus GG 15 billion cell sprinkle capsule (Culturelle) 1 cap PO DAILY GUT HEALTH 12/31/23 [History Last Taken Unknown] albuterol sulfate 2.5 mg/3 mL (0.083 %) solution for nebulization 2.5 mg inhalation Q2H PRN SHORTNESS OF BREATH/WHEEZING 12/31/23 [History Last Taken Unknown] arginine 7 gram-glutamine 7 gram-calcium HMB 1.5 gram oral powder pack (Angel) 1 ea PO BID WOUND HEALING 12/31/23 [History Last Taken Unknown] lactulose 10 gram/15 mL (15 mL) oral solution 10 g PO 1000 HYPO-OSMALITY 12/31/23 [History Last Taken Unknown] lactulose 10 gram/15 mL oral solution 15 ml PO 1400,2000 HYPO-OSMALITY 12/31/23 [History Last Taken Unknown] lidocaine HCl 2 % mucosal solution (Lidocaine Viscous) 20 ml PO Q4H SORE THROAT/MOUTH 12/31/23 [History Last Taken Unknown] meloxicam 15 mg tablet 15 mg PO DAILY ARTHRITIS 12/31/23 [History Last Taken Unknown] paroxetine HCl 30 mg tablet 30 mg PO QHS DEPRESSION 12/31/23 [History Last Taken Unknown] potassium chloride 20 mEq tablet,extended release(part/cryst) 20 meq PO DAILY SUPPLEMENT 12/31/23 [History Last Taken Unknown] trazodone 50 mg tablet 150 mg PO QHS SLEEP 12/31/23 [History Last Taken Unknown] Allergy/AdvReac Type Severity Reaction Status Date / Time Iodine and Iodide Containing Allergy Severe Rash Verified 12/22/23 16:55 Produc ezetimibe [From Zetia] AdvReac Severe Myalgias Verified 12/22/23 16:55 Skpkrmu-MFC-PyH Reductase AdvReac Severe Elevated Verified 12/22/23 16:55 Inhibitor Liver [Ppbapbc-Xfv-Jpa Reductase Enzymes Inhibitor] duloxetine [From Cymbalta] AdvReac Orthostasis Verified 12/22/23 16:55 /hyponatrem ia Family History Grandmother Myocardial infarction Grandfather Myocardial infarction Surgical History History of coronary artery stent placement (02/17/19) History of implantable cardiac defibrillator (ICD) (10/31/17) History of left heart catheterization (LHC) (01/21/19) Hx of knee surgery Hx of total hip arthroplasty Social History housing: long term number of children: 1 current occupational status: unemployed Smoking Status: Light Smoker (<10/day) how long ago did patient quit smoking: Smokes 2.5 packs per week. alcohol intake: former year quit: 2012 details: Sober 13-14 months. substance use type: other details: Has abused RX Ativan in the past, remains clean. well-balanced diet: other details: says that he gets meals on wheels and they pile upin the refrigerator caffeine: No during the past year weight has: other details: decreased 20 lbs since November what type of physical activity do you participate in: none duration: < 15 minutes/day seatbelt use: always do you feel safe at home: Yes Physical Exam Const no apparent distress General Appearance: lethargic HEENT normocephalic and head/scalp atraumatic Eyes PERRL Neck supple and No nodes Resp normal air movement and clear to auscultation bilaterally Cardio regular rate and regular rhythm GI soft to palpation and non-tender GI Narrative: mild distension Extremity General Extremity: Negative for edema Skin no rashes or lesions noted Neuro Neuro Narrative: opens eyes briefly to voice Medical Records Data Medical Nutrition Assessment Dietitian: Malnutrition Criteria Met Start: 01/01/24 11:38 Freq: Status: Active Protocol: Document 01/01/24 11:38 AG (Rec: 01/01/24 11:38 AG [id number]) Nutrition Malnutrition Evidence of Malnutrition Exists Yes Malnutrition (moderate): Acute Illness/Injury Evidenced By Suboptimal Energy Intake ( Moderate),Physical Changes ( Moderate) Clinical Problem Acute Disease or Injury Related Malnutrition Etiology acute on likely chronic moderate malnutrition related to inadequate energy intake Signs/Symptoms as evidenced by estimated PO intake meeting <75% of estimated energy needs > 1 week, Moderate muscle wasting/ fat loss evident per physical exam in orbital, clavicle, acromion, and temporal areas Status Active Problem Recommendation Dietitian Recommendations/Changes recommend advance diet as tolerated to regular, consider COAT REPAIR INSPECTOR evaluation d/t poor dentition, may need modified textures. Angel BID and Ensure Plus High Protein 120mL 4x/ day when diet advanced Lab / Micro Data Attestation: I reviewed the patient's lab results. 01/01/24 15:44 01/01/24 07:20 Labs: Laboratory Results - last 24 hr 12/31/23 12:35: Diff Path Review Reviewed 01/01/24 07:20: Lactate Dehydrogenase 606 H, Total Creatine Kinase 66, C-React Prot Ext Range 112.00 H, Amylase 548 H, Lipase 498 H 01/01/24 10:50: Fluid Source PERITONEAL FLUID, Fluid Color RED, Fluid Appearance SL CLDY, Fluid WBC 1.038, Fluid RBC 0.008, Fluid Tot Cell Count 1.091, Fld Polynuclear WBCs # 0.515, Fld Polynuclear WBCs % 49.6, Fluid Mononuclear WBCs 0.523, Fld Mononuclear WBCs % 50.4, Fluid Neutrophils 52, Fluid Lymphocytes 12, Fluid Monocytes 10, Fluid Macrophages 25, Fld Mesothelial Cells 1, Fl Pathologist Comment May follow, Fluid Comment 2 SEE COMMENT 01/01/24 15:44: WBC 29.1 H, RBC 4.53 L, Hgb 14.3, Hct 42.0, MCV 92.7, MCH 31.6, MCHC 34.0, RDW Std Deviation 56.0 H, RDW Coeff of Yoli 18.0 H, Plt Count 499 H, MPV 10.5, Immature Gran % (Auto) 1.900 H, Neut % (Auto) 73.0 H, Lymph % (Auto) 12.6 L, [place] % (Auto) 10.8 H, Eos % (Auto) 1.3, Baso % (Auto) 0.4, Absolute Neuts (auto) 21.2 H, Absolute Lymphs (auto) 3.65, Nucleated RBC % 0.1, Differential Comment SEE COMMENTS, Diff Path Review May foll, Toxic Granulation 2+, Platelet Estimate MOD INC, RBC Morphology N CHROM, Anisocytosis RARE, Macrocytosis RARE, Ovalocytes RARE, ESR 6 01/01/24 20:25: PT 19.5 H, INR 1.7, Lactic Acid 2.3 H*, Ammonia < 10.0 L 01/02/24 01:05: Lactic Acid 2.1 H* Micro: Microbiology 12/31/23 13:35 Blood Culture (Wb) - Left Hand Blood Culture - Preliminary No growth in 48 hours. 12/31/23 13:17 Blood Culture (Wb) - Anticubital Right Blood Culture - Preliminary No growth in 48 hours. 01/01/24 10:50 Fluid - Ascites Gram Stain - Final Rhythm Strip Rhythm Strip: Sinus Tach Rate: 103 Ectopy: None
[2024-01-02 14:28] LABS: Pathologist Comment/Body Fluid Reviewed
[2024-01-02 14:30] LABS: Pathologist Review Reviewed
[2024-01-02 16:23] LABS: Absolute Lymphocyte Count 3.48 X10^3/uL (0.83-4.51); Basophil# 0.15 X10^3/uL; Basophil% 0.5 % (0-1); Eosinophil# 0.26 X10^3/uL; Eosinophils% 0.8 % (0-5); Hematocrit 38.5 % (40-54); Hemoglobin 12.9 g/dL (13.0-16.5); Lymphocyte # 3.48 X10^3/ul (0.83-4.51); Lymphocyte % 10.7 % (19-41); Mean Corp Hgb Conc 33.5 g/dL (32-36); Mean Corpuscular Hgb 30.9 pg (27.0-32.0); Mean Corpuscular Volume 92.3 fL (80-94); Mean Platelet Vol. 10.7 fl (6.2-12.0); Monocyte# 2.99 X10^3/uL; Monocyte% 9.2 % (0-10); NRBC Flagged by Analyzer 0 % (0-5); Neutrophil # 24.96 X10^3/uL (2.7-7.7); Neutrophil % 76.6 % (47-70); POSITIVE COUNT YES; POSITIVE DIFFERENTIAL YES; Platelet Count 424 K/mm3 (150-450); RBC Distribution Width CV 18.4 % (11.6-14.6); RBC Distribution Width SD 56.3 fl (35.1-43.9); Red Blood Count 4.17 M/mm3 (4.6-6.2)
[2024-01-02 16:26] LABS: Differential Indicated SCAN CRITERIA MET; White Blood Count 32.6 K/mm3 (4.4-11.0)
[2024-01-02 16:58] LABS: ALB/GLOB Ratio 0.5 RATIO (0.9-2.4); AST(SGOT) 107 U/L (15-37); Alanine Aminotransfer ALT/SGPT 41 U/L (16-61); Albumin, Serum 1.8 g/dL (3.2-5.0); Alkaline Phosphatase 316 U/L (45-117); Anion Gap 3 (5-15); BUN 38 mg/dL (7-18); BUN/Creat Ratio 43.9 RATIO (10-20); Calcium,Total 8.3 mg/dL (8.5-10.1); Chloride 116 mmol/L (98-107); Creatinine, Serum 0.86 mg/dL (0.70-1.30); EST Glomerular Filtration Rate 93 mL/min (>60); Est Glom Filt Rate - Afr Amer 113 mL/min (>60); Estimated Creatinine Clearance 82.53 ml/min; Globulin 3.5 g/dL (2.2-4.2); Glucose 116 mg/dL (74-106); Potassium 3.7 mmol/L (3.5-5.1); Protein, Total 5.3 g/dL (6.4-8.2); Sodium Level 143 mmol/L (136-145)
[2024-01-02 17:05] LABS: Differential Comment SCANNED
[2024-01-02] MEDS: Heparin Injection (Vial) 5,000 UNIT/ML VIAL 5000 UNIT SC (23:13)
[2024-01-02] MEDS: Lactulose 20 GM/30 ML UDC 10 GM PO (23:13)
[2024-01-03] VITALS (8 sets, daily range): BP systolic 105–118; BP diastolic 70–86; PULSE 100–115; RESP 15–20; TEMP 36.4–37.1; O2SAT 92–96
[2024-01-03] MEDS: Ipratropium/Albuterol Sulfate 3 ML AMPUL.NEB INHALATION ×4 (00:40→19:13)
[2024-01-03] MEDS: Ondansetron 4 MG/2 ML Vial IV ×3 (02:47→22:53)
[2024-01-03] MEDS: Piperacil/Tazobactam 3.375 GM in 0.9% Normal Saline (50mL MB+) 50 ML IV ×3 (05:47→21:15)
[2024-01-03 07:52] LABS: Absolute Lymphocyte Count 2.79 X10^3/uL (0.83-4.51); Absolute Neutrophil Count 22.6 X10^3/uL (2.0-7.7); Basophil# 0.13 X10^3/uL; Basophil% 0.5 % (0-1); Eosinophil# 0.22 X10^3/uL; Eosinophils% 0.8 % (0-5); Hematocrit 40.2 % (40-54); Hemoglobin 13.4 g/dL (13.0-16.5); Lymphocyte # 2.79 X10^3/ul (0.83-4.51); Lymphocyte % 9.8 % (19-41); Mean Corp Hgb Conc 33.3 g/dL (32-36); Mean Corpuscular Hgb 31.3 pg (27.0-32.0); Mean Corpuscular Volume 93.9 fL (80-94); Mean Platelet Vol. 10.8 fl (6.2-12.0); Monocyte# 2.19 X10^3/uL; Monocyte% 7.7 % (0-10); NRBC Flagged by Analyzer 0 % (0-5); Neutrophil # 22.59 X10^3/uL (2.7-7.7); Neutrophil % 79.2 % (47-70); POSITIVE DIFFERENTIAL YES; Platelet Count 430 K/mm3 (150-450); RBC Distribution Width CV 18.7 % (11.6-14.6); RBC Distribution Width SD 58.9 fl (35.1-43.9); Red Blood Count 4.28 M/mm3 (4.6-6.2); White Blood Count 28.5 K/mm3 (4.4-11.0)
[2024-01-03 07:55] LABS: Differential Indicated SCAN CRITERIA MET
[2024-01-03 08:27] LABS: ALB/GLOB Ratio 0.5 RATIO (0.9-2.4); AST(SGOT) 103 U/L (15-37); Alanine Aminotransfer ALT/SGPT 38 U/L (16-61); Albumin, Serum 1.8 g/dL (3.2-5.0); Alkaline Phosphatase 413 U/L (45-117); Anion Gap 6 (5-15); BUN 40 mg/dL (7-18); BUN/Creat Ratio 45.1 RATIO (10-20); Calcium,Total 8.2 mg/dL (8.5-10.1); Chloride 111 mmol/L (98-107); Creatinine, Serum 0.89 mg/dL (0.70-1.30); EST Glomerular Filtration Rate 91 mL/min (>60); Est Glom Filt Rate - Afr Amer 110 mL/min (>60); Estimated Creatinine Clearance 79.74 ml/min; Globulin 3.6 g/dL (2.2-4.2); Glucose 111 mg/dL (74-106); Potassium 3.7 mmol/L (3.5-5.1); Protein, Total 5.4 g/dL (6.4-8.2); Sodium Level 140 mmol/L (136-145)
[2024-01-03] MEDS: 0.9% Saline Lock 10 ML Syringe IV ×3 (08:57→22:53)
[2024-01-03] MEDS: Heparin Injection (Vial) 5,000 UNIT/ML VIAL 5000 UNIT SC ×2 (08:57→20:32)
[2024-01-03] MEDS: Juven (unflavored) Packet 1 PACKET PO ×2 (08:57→20:32)
[2024-01-03] MEDS: Furosemide 40 MG/4 ML Vial IV (08:58)
[2024-01-03] MEDS: Lactulose 20 GM/30 ML UDC 10 GM PO ×2 (08:58→20:32)
[2024-01-03] MEDS: Amiodarone 200 MG Tablet PO (08:58)
--- NOTE | 2024-01-03 14:11 | PN_ITS ---
Subjective Subjective Patient seen and examined. He was alert and communicative. He had no active complaints. He said he had an uneventful night. Review of systems otherwise negative. He was asking for ice cold water during my review. He has remained hemodynamically stable. Objective Data Objective Data Vital Signs: Vital Signs Temp Pulse Resp BP Pulse Ox O2 Del Method O2 Flow Rate 97.6 F L 100 15 110/86 H 96 Room Air 2 01/03/24 08:56 01/03/24 13:28 01/03/24 13:28 01/03/24 08:56 01/03/24 08:56 01/03/24 14:03 01/02/24 12:51 Oxygen Flow Rate (L/min) 2 Oxygen Delivery Method Room Air Weight: 154 lb 5.177 oz Body Mass Index (BMI) 19.8 Intake & Output: Intake and Output for Last 24 Hours 01/01/24 01/02/24 01/03/24 23:59 23:59 23:59 Intake Total 350 / 350 585.25 / 685.25 520 / 520 Output Total 9000 / 9000 700 / 700 Balance -8650 / -8650 585.25 / 685.25 -180 / -180 Medical Nutrition Assessment Dietitian: Malnutrition Criteria Met Start: 01/01/24 11:38 Freq: Status: Active Protocol: Document 01/01/24 11:38 AG (Rec: 01/01/24 11:38 AG [id number]) Nutrition Malnutrition Evidence of Malnutrition Exists Yes Malnutrition (moderate): Acute Illness/Injury Evidenced By Suboptimal Energy Intake ( Moderate),Physical Changes ( Moderate) Clinical Problem Acute Disease or Injury Related Malnutrition Etiology acute on likely chronic moderate malnutrition related to inadequate energy intake Signs/Symptoms as evidenced by estimated PO intake meeting <75% of estimated energy needs > 1 week, Moderate muscle wasting/ fat loss evident per physical exam in orbital, clavicle, acromion, and temporal areas Status Active Problem Recommendation Dietitian Recommendations/Changes recommend advance diet as tolerated to regular, consider DESKTOP SUPPORT TECHNICIAN evaluation d/t poor dentition, may need modified textures. Angel BID and Ensure Plus High Protein 120mL 4x/ day when diet advanced Lab / Micro Data 01/03/24 06:24 01/03/24 06:24 Labs: Laboratory Results - last 24 hr 01/01/24 10:50: Fl Pathologist Comment Reviewed 01/01/24 15:44: Diff Path Review Reviewed 01/02/24 15:59: WBC 32.6 H*, RBC 4.17 L, Hgb 12.9 L, Hct 38.5 L, MCV 92.3, MCH 30.9, MCHC 33.5, RDW Std Deviation 56.3 H, RDW Coeff of Yoli 18.4 H, Plt Count 424, MPV 10.7, Immature Gran % (Auto) 2.200 H, Neut % (Auto) 76.6 H, Lymph % (Auto) 10.7 L, [place] % (Auto) 9.2, Eos % (Auto) 0.8, Baso % (Auto) 0.5, Absolute Neuts (auto) 25.0 H, Absolute Lymphs (auto) 3.48, Nucleated RBC % 0, Differential Comment SCANNED, Diff Path Review May foll, Sodium 143, Potassium 3.7, Chloride 116 H, Carbon Dioxide 24.0, Anion Gap 3 L, BUN 38 H, Creatinine 0.86, Estim Creat Clear Calc 82.53, Est GFR (MDRD) Af Amer 113, Est GFR (MDRD) Non-Af 93, BUN/Creatinine Ratio 43.9 H, Glucose 116 H, Calcium 8.3 L, Total Bilirubin 0.90, AST 107 H, ALT 41, Alkaline Phosphatase 316 H, Total Protein 5.3 L, Albumin 1.8 L, Globulin 3.5, Albumin/Globulin Ratio 0.5 L 01/03/24 06:24: WBC 28.5 H, RBC 4.28 L, Hgb 13.4, Hct 40.2, MCV 93.9, MCH 31.3, MCHC 33.3, RDW Std Deviation 58.9 H, RDW Coeff of [place] 18.7 H, Plt Count 430, MPV 10.8, Immature Gran % (Auto) 2.000 H, Neut % (Auto) 79.2 H, Lymph % (Auto) 9.8 L , [place] % (Auto) 7.7, Eos % (Auto) 0.8, Baso % (Auto) 0.5, Absolute Neuts (auto) 22.6 H, Absolute Lymphs (auto) 2.79, Nucleated RBC % 0, Diff Path Review May foll, Sodium 140, Potassium 3.7, Chloride 111 H, Carbon Dioxide 23.0, Anion Gap 6, BUN 40 H, Creatinine 0.89, Estim Creat Clear Calc 79.74, Est GFR (MDRD) Af Amer 110, Est GFR (MDRD) Non-Af 91, BUN/Creatinine Ratio 45.1 H, Glucose 111 H, Calcium 8.2 L, Total Bilirubin 0.90, AST 103 H, ALT 38, Alkaline Phosphatase 413 H, Total Protein 5.4 L, Albumin 1.8 L, Globulin 3.6, Albumin/Globulin Ratio 0.5 L Micro: Microbiology 12/31/23 13:35 Blood Culture (Wb) - Left Hand Blood Culture - Preliminary No growth in 48 hours. 12/31/23 13:17 Blood Culture (Wb) - Anticubital Right Blood Culture - Preliminary No growth in 48 hours. 01/01/24 10:50 Fluid - Ascites Gram Stain - Final 12/31/23 13:35 Mucosa - Nose SARS-CoV-2, Influenza & RSV (PCR) - Final Rhythm Strip Rhythm Strip: Sinus Tach Rate: 103 Ectopy: None Physical Exam Const alert, oriented x3 and no apparent distress Constitutional Narrative: has some chronic slurring of his speech. General Appearance: cooperative, well kempt and well developed Orientation / Consciousness: awake HEENT normocephalic and head/scalp atraumatic Eyes PERRL, EOMs intact bilaterally and conjunctivae normal Neck no lymphadenopathy, supple, no JVD, thyroid normal and no carotid bruits General: trachea midline Lymph Lymphatic: no lymphadenopathy noted and no lymphedema noted Resp normal respiratory effort, no retractions and no use of accessory muscles Resp Narrative: Breath sounds were diminished bilaterally Auscultation: Negative for rales, rhonchi or wheezes Cardio regular rate, regular rhythm, S1 normal heart sound, S2 normal heart sound, no murmurs, no rub and no gallops GI soft to palpation and non-tender GI Narrative: There was noted to be some mild abdominal distention present, abdomen was soft, bowel sounds were present. Positive fluid thrill Extremity normal capillary refill and no clubbing, cyanosis or edema General Extremity: no tenderness to palpation of joints or extremities Skin no rashes or lesions noted General Skin Exam: no breakdown Neuro CN's II-XII intact bilaterally and no focal motor deficits Neuro Narrative: Patient is alert, communicative Sensorium / Orientation: awake and alert Speech: speech normal Motor Exam: strength 5/5 throughout and general weakness Psych Psych Narrative: Patient is alert Appearance: appropriate Mood & Affect: flat affect Assessment & Plan Assessment/Plan (1) Multifocal pneumonia: (2) Acute encephalopathy: (3) Abdominal ascites: QUALIFIERS: Ascites type: other type Qualified Code(s): R18.8 - Other ascites PLAN: Plan #Acute encephalopathy in the setting of community acquired pneumonia * Admitted from his custodial on account of weakness and lethargy. * Chest x-ray showed bilateral infiltrates along with marked pleural effusions bilaterally. Patient also had ascites in the setting of liver cirrhosis. * WBC has trended down slightly from 32.6 yesterday to 28.5 today. * On IV Zosyn. Breathing treatments of bronchodilators. Titrate oxygen as needed to maintain saturation above 90%. * ID on board. * #Cirrhosis with ascites: * s/p paracentesis. On lactulose and furosemide. FLuid cultures still pending. * Fluid polymorphonuclear cells were 496. * Currently on IV Zosyn which should cover SBP. * He is having minimal abdominal pain. #CAD: * On Plavix and metoprolol. 2D echo done showed EF of 20% with severe global hypokinesis of the left ventricle and stage I diastolic dysfunction. * EF from 2021 showed EF of 35% with stage I diastolic dysfunction and global hypokinesis of the left ventricle. * discussed with Dr Delgado-foreign languages department chair all source collection manager; per discussion, no active intervention for the drop in EF. Continue current medications and patient follow-up with cardiology on outpatient basis. 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 #History of pulmonary nodule: Stable. Follow-up with pulmonology on outpatient basis #History of ventricular tachycardia: On amiodarone DVT prophylaxis: SCDs. Charges/Coding Visit Charges Inpatient E&M: 00891 Subs Hosp L2
[2024-01-04] VITALS (7 sets, daily range): BP systolic 95–109; BP diastolic 65–80; PULSE 101–113; RESP 18–26; TEMP 36.2–36.7; O2SAT 94–95
[2024-01-04] MEDS: Ipratropium/Albuterol Sulfate 3 ML AMPUL.NEB INHALATION ×3 (01:47→19:07)
[2024-01-04] MEDS: Piperacil/Tazobactam 3.375 GM in 0.9% Normal Saline (50mL MB+) 50 ML IV (05:11)
[2024-01-04 06:34] LABS: Absolute Lymphocyte Count 2.99 X10^3/uL (0.83-4.51); Absolute Neutrophil Count 30.5 X10^3/uL (2.0-7.7); Basophil# 0.18 X10^3/uL; Basophil% 0.5 % (0-1); Eosinophil# 0.09 X10^3/uL; Eosinophils% 0.2 % (0-5); Hematocrit 39.9 % (40-54); Hemoglobin 13.5 g/dL (13.0-16.5); Lymphocyte # 2.99 X10^3/ul (0.83-4.51); Lymphocyte % 8.1 % (19-41); Mean Corp Hgb Conc 33.8 g/dL (32-36); Mean Corpuscular Hgb 31.2 pg (27.0-32.0); Mean Corpuscular Volume 92.1 fL (80-94); Mean Platelet Vol. 11.1 fl (6.2-12.0); Monocyte# 2.38 X10^3/uL; Monocyte% 6.5 % (0-10); NRBC Flagged by Analyzer 0 % (0-5); Neutrophil # 30.52 X10^3/uL (2.7-7.7); Neutrophil % 82.8 % (47-70); POSITIVE COUNT YES; POSITIVE DIFFERENTIAL YES; Platelet Count 495 K/mm3 (150-450); RBC Distribution Width CV 18.6 % (11.6-14.6); Red Blood Count 4.33 M/mm3 (4.6-6.2)
[2024-01-04 07:13] LABS: ALB/GLOB Ratio 0.4 RATIO (0.9-2.4); AST(SGOT) 119 U/L (15-37); Alanine Aminotransfer ALT/SGPT 41 U/L (16-61); Albumin, Serum 1.6 g/dL (3.2-5.0); Alkaline Phosphatase 303 U/L (45-117); Anion Gap 7 (5-15); BUN 45 mg/dL (7-18); BUN/Creat Ratio 45.7 RATIO (10-20); Calcium,Total 8.2 mg/dL (8.5-10.1); Chloride 107 mmol/L (98-107); Creatinine, Serum 0.98 mg/dL (0.70-1.30); EST Glomerular Filtration Rate 81 mL/min (>60); Est Glom Filt Rate - Afr Amer 97 mL/min (>60); Estimated Creatinine Clearance 72.42 ml/min; Glucose 99 mg/dL (74-106); Potassium 4.2 mmol/L (3.5-5.1); Protein, Total 5.6 g/dL (6.4-8.2); Sodium Level 136 mmol/L (136-145)
[2024-01-04 07:27] LABS: White Blood Count 36.9 K/mm3 (4.4-11.0)
[2024-01-04 07:28] LABS: Differential Indicated SCAN CRITERIA MET
[2024-01-04] MEDS: Menthol/Lanolin/Calamine/Znox 113 GM Tube 1 APPLIC TOPICAL ×2 (08:50→20:34)
[2024-01-04] MEDS: Juven (unflavored) Packet 1 PACKET PO ×2 (08:51→20:34)
[2024-01-04] MEDS: Heparin Injection (Vial) 5,000 UNIT/ML VIAL 5000 UNIT SC ×2 (08:51→20:34)
[2024-01-04] MEDS: Amiodarone 200 MG Tablet PO (08:51)
[2024-01-04] MEDS: 0.9% Saline Lock 10 ML Syringe IV ×3 (08:51→20:49)
[2024-01-04] MEDS: Furosemide 40 MG/4 ML Vial IV (08:51)
[2024-01-04 09:20] LABS: Differential Comment SCANNED
--- NOTE | 2024-01-04 11:26 | PN_ITS ---
Subjective Subjective Patient seen and examined. He had no active complaints. Review of systems is otherwise negative. He has remained hemodynamically stable. His wbc is elevated at 36.9 today Objective Data Objective Data Vital Signs: Vital Signs Temp Pulse Resp BP Pulse Ox O2 Del Method O2 Flow Rate 98.0 F 102 H 18 109/73 95 Room Air 2 01/04/24 08:50 01/04/24 08:50 01/04/24 08:50 01/04/24 08:50 01/04/24 08:50 01/04/24 08:50 01/02/24 12:51 Oxygen Flow Rate (L/min) 2 Oxygen Delivery Method Room Air Weight: 154 lb 5.177 oz Body Mass Index (BMI) 19.8 Intake & Output: Intake and Output for Last 24 Hours 01/02/24 01/03/24 01/04/24 23:59 23:59 23:59 Intake Total 585.25 / 685.25 810 / 810 394.17 / 394.17 Output Total 950 / 1000 150 / 150 Balance 585.25 / 685.25 -140 / -190 244.17 / 244.17 Medical Nutrition Assessment Dietitian: Malnutrition Criteria Met Start: 01/01/24 11:38 Freq: Status: Active Protocol: Document 01/01/24 11:38 AG (Rec: 01/01/24 11:38 AG [id number]) Nutrition Malnutrition Evidence of Malnutrition Exists Yes Malnutrition (moderate): Acute Illness/Injury Evidenced By Suboptimal Energy Intake ( Moderate),Physical Changes ( Moderate) Clinical Problem Acute Disease or Injury Related Malnutrition Etiology acute on likely chronic moderate malnutrition related to inadequate energy intake Signs/Symptoms as evidenced by estimated PO intake meeting <75% of estimated energy needs > 1 week, Moderate muscle wasting/ fat loss evident per physical exam in orbital, clavicle, acromion, and temporal areas Status Active Problem Recommendation Dietitian Recommendations/Changes recommend advance diet as tolerated to regular, consider BOX TURNER evaluation d/t poor dentition, may need modified textures. Angel BID and Ensure Plus High Protein 120mL 4x/ day when diet advanced Lab / Micro Data 01/04/24 05:15 01/04/24 05:15 Labs: Laboratory Results - last 24 hr 01/04/24 05:15: WBC 36.9 H*, RBC 4.33 L, Hgb 13.5, Hct 39.9 L, MCV 92.1, MCH 31.2, MCHC 33.8, RDW Std Deviation 58.0 H, RDW Coeff of Yoli 18.6 H, Plt Count 495 H, MPV 11.1, Immature Gran % (Auto) 1.900 H, Neut % (Auto) 82.8 H, Lymph % (Auto) 8.1 L, Boyle % (Auto) 6.5, Eos % (Auto) 0.2, Baso % (Auto) 0.5, Absolute Neuts (auto) 30.5 H, Absolute Lymphs (auto) 2.99, Nucleated RBC % 0, Differential Comment SCANNED, Diff Path Review March, Sodium 136, Potassium 4.2, Chloride 107, Carbon Dioxide 22.0, Anion Gap 7, BUN 45 H, Creatinine 0.98, Estim Creat Clear Calc 72.42, Est GFR (MDRD) Af Amer 97, Est GFR (MDRD) Non-Af 81, BUN/Creatinine Ratio 45.7 H, Glucose 99, Calcium 8.2 L, Total Bilirubin 1.20 H, AST 119 H, ALT 41, Alkaline Phosphatase 303 H, Total Protein 5.6 L, Albumin 1.6 L, Globulin 4.0, Albumin/Globulin Ratio 0.4 L Micro: Microbiology 12/31/23 13:35 Blood Culture (Wb) - Left Hand Blood Culture - Preliminary No growth in 48 hours. 12/31/23 13:17 Blood Culture (Wb) - Anticubital Right Blood Culture - Preliminary No growth in 48 hours. 01/01/24 10:50 Fluid - Ascites Gram Stain - Final 12/31/23 13:35 Mucosa - Nose SARS-CoV-2, Influenza & RSV (PCR) - Final Rhythm Strip Rhythm Strip: Sinus Tach Rate: 103 Ectopy: None Physical Exam Const alert, oriented x3 and no apparent distress Constitutional Narrative: has some chronic slurring of his speech. General Appearance: cooperative and well kempt Orientation / Consciousness: awake and confused HEENT normocephalic and head/scalp atraumatic Eyes PERRL, EOMs intact bilaterally and conjunctivae normal Neck no lymphadenopathy, supple, no JVD, thyroid normal and no carotid bruits General: trachea midline Lymph Lymphatic: no lymphadenopathy noted and no lymphedema noted Resp normal respiratory effort, no retractions and no use of accessory muscles Resp Narrative: Breath sounds were diminished bilaterally Auscultation: Negative for rales, rhonchi or wheezes Cardio regular rate, regular rhythm, S1 normal heart sound, S2 normal heart sound, no murmurs, no rub and no gallops GI normal to inspection, nondistended, normoactive bowel sounds and soft to palpation GI Narrative: There was noted to be some mild abdominal distention present, abdomen was soft, bowel sounds were present. Positive fluid thrill. Moderate epigastric tenderness, no guarding Inspection: abdominal distention Extremity normal capillary refill and no clubbing, cyanosis or edema General Extremity: no tenderness to palpation of joints or extremities Skin no rashes or lesions noted General Skin Exam: no breakdown Neuro CN's II-XII intact bilaterally and no focal motor deficits Neuro Narrative: Patient is alert, communicative Sensorium / Orientation: awake and alert Speech: speech normal Motor Exam: strength 5/5 throughout and general weakness Psych Psych Narrative: Patient is alert Appearance: appropriate Assessment & Plan Assessment/Plan (1) Multifocal pneumonia: (2) Acute encephalopathy: (3) Abdominal ascites: QUALIFIERS: Ascites type: other type Qualified Code(s): R18.8 - Other ascites PLAN: Plan #Acute encephalopathy in the setting of community acquired pneumonia * Chest x-ray showed bilateral infiltrates along with marked pleural effusions bilaterally. Patient also had ascites in the setting of liver cirrhosis. * WBC has trended even further upwards to 36.9 today. He is afebrile and hemody namically stable. * On IV Zosyn. Breathing treatments of bronchodilators. Titrate oxygen as needed to maintain saturation above 90%. * ID on board. * will broaden IV antibiotics to IV meropenem in light of persistently elevated wbc. * will get CT chest, abdomen and pelvis without contrast (due to contrast allergy) to see if there is some underlying reason for the persistently elevated wbc. * #Cirrhosis with ascites: * s/p paracentesis. On lactulose and furosemide. FLuid cultures negative. * Fluid polymorphonuclear cells were 496. * Currently on IV Zosyn which should cover SBP. * will broaden antibiotics to IV meropenem due to persistently elevated wbc * The cirrhosis can also be a cause of persistently elevated white cell count. Had previously had elevated white cell count so does not clear why his white cell count remains persistently elevated. * #CAD: * On Plavix and metoprolol. 2D echo done showed EF of 20% with severe global hypokinesis of the left ventricle and stage I diastolic dysfunction. * EF from 2021 showed EF of 35% with stage I diastolic dysfunction and global hypokinesis of the left ventricle. 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 Continue current medications and patient follow-up with cardiology on outpatient basis. 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 #History of pulmonary nodule: Stable. Follow-up with pulmonology on outpatient basis #History of ventricular tachycardia: On amiodarone DVT prophylaxis: SCDs. Charges/Coding Visit Charges Inpatient E&M: 92126 Subs Hosp L3
--- NOTE | 2024-01-04 11:37 | CT_ITS ---
STUDY: CT CHEST, ABDOMEN T PELVIS WITHOUT CONTRAST REASON FOR EXAM: Male, 68 years old. pleural effusion, abdominal abscess RADIATION DOSAGE (If Supplied By Facility): CTDIvol = ( 13.03 ) mGy, DLP = ( 960.70 ) mGycm TECHNIQUE: Transaxial imaging was performed without the administration of intravenous contrast material. Individualized dose optimization techniques were used for this CT. COMPARISON: CT of abdomen and pelvis dated December 22, 2023. CT of the chest dated May 30, 2022. FINDINGS: CHEST Moderate bilateral lower lobe atelectasis is present. Moderate-sized bilateral pleural effusions are also present. Normal heart and pericardium. Mild groundglass edema is present throughout the bilateral upper lung jacob as well as the right middle lobe and superior segments of the bilateral lower lobes. Interval appearance of a 5.6 mm nodule in the lateral aspect of the right middle lobe seen on image 87/276 where pneumonic consolidation was previously present, and is favored to represent post pneumonic fibrosis. This can be followed up according to Fleischner Society''s criteria. Normal heart size. Coronary artery calcifications are present. Left chest cardiac device and right heart leads are stable. Normal mediastinum. Normal hilar regions. Normal unenhanced pulmonary arteries. There is atherosclerotic calcification of the aortic arch with tortuosity and elongation of the aortic arch and descending thoracic aorta. There are multi-level degenerative changes of the thoracic spine. ABDOMEN Redemonstration of a significant amount of abdominal and pelvic ascites. Diffuse Central abdominal mesenteric root subcentimeter lymphadenopathy redemonstrated. Normal liver. Normal gallbladder and extrahepatic biliary system. Normal spleen. Redemonstration of patchy hypodensity and slight enlargement in the head of the pancreas possibly due to acute pancreatitis. No discrete pancreatic mass is seen, however evaluation of the pancreas is not adequately without intravenous contrast. Correlation with ultrasound can also be performed if indicated. Normal bilateral adrenal glands. Normal right kidney. Normal left kidney. Normal visualized stomach. Interval development of mild diffuse gaseous dilatation of the transverse colon and several of the ileal loops. Mild fluid distention of the mid to distal ileum is also a new finding consistent with mild ileus. Oral contrast can be administered if there is concern for small bowel obstruction. There is non-visualization of the appendix. There is diffuse atherosclerotic calcification of the abdominal aorta, without a demonstrated aneurysm. Normal inferior vena cava. Normal retroperitoneum. Normal abdominal wall. There are diffuse degenerative changes of the visualized lumbar spine. PELVIS The bladder is collapsed around a Rai catheter and balloon. Normal visualized small intestine. Normal visualized colon. There is no pelvic fluid. There is no pelvic lymphadenopathy or mass lesion. There is diffuse atherosclerotic calcification of the pelvic arteries. Normal abdominal wall. There are diffuse degenerative changes of the visualized lumbar spine. CT/CT Chest, Abd, Pelvis WO Cont IMPRESSION: 1. Interval development of mild diffuse gaseous dilatation of the transverse colon and several of the ileal loops. Mild fluid distention of the mid to distal ileum is also a new finding consistent with mild ileus. Oral contrast can be administered if there is concern for small bowel obstruction. 2. Redemonstration of patchy hypodensity and slight enlargement in the head of the pancreas possibly due to acute pancreatitis. No discrete pancreatic mass is seen, however evaluation of the pancreas is not adequately without intravenous contrast. Correlation with ultrasound can also be performed if indicated. 3. Moderate bilateral lower lobe atelectasis is present. Moderate-sized bilateral pleural effusions are also present. Normal heart and pericardium. Mild groundglass edema is present throughout the bilateral upper lung jacob as well as the right middle lobe and superior segments of the bilateral lower lobes. Electronically Signed: Romero Real MD at 14:45 EST ,
[2024-01-04] MEDS: Lactulose 20 GM/30 ML UDC 10 GM PO ×2 (13:05→20:33)
[2024-01-04] MEDS: Ondansetron 4 MG/2 ML Vial IV ×2 (13:05→20:49)
[2024-01-04] MEDS: Meropenem 1 GM in 0.9% Normal Saline (100mL MB+) 100 ML IV ×2 (13:05→21:28)
--- NOTE | 2024-01-04 17:35 | PN.GI_ITS ---
Objective Data Objective Data Vital Signs: Vital Signs Temp Pulse Resp BP Pulse Ox O2 Del Method O2 Flow Rate 97.2 F L 101 H 18 105/65 94 Room Air 2 01/04/24 14:50 01/04/24 14:50 01/04/24 14:50 01/04/24 14:50 01/04/24 14:50 01/04/24 14:50 01/02/24 12:51 Oxygen Flow Rate (L/min) 2 Oxygen Delivery Method Room Air Weight: 154 lb 5.177 oz Body Mass Index (BMI) 19.8 Intake & Output: Intake and Output for Last 24 Hours 01/02/24 01/03/24 01/04/24 23:59 23:59 23:59 Intake Total 585.25 / 685.25 810 / 810 754.17 / 754.17 Output Total 950 / 1000 525 / 525 Balance 585.25 / 685.25 -140 / -190 229.17 / 229.17 Medical Nutrition Assessment Dietitian: Malnutrition Criteria Met Start: 01/01/24 11:3 8 Freq: Status: Active Protocol: Document 01/01/24 11:38 AG (Rec: 01/01/24 11:38 AG [id number]) Nutrition Malnutrition Evidence of Malnutrition Exists Yes Malnutrition (moderate): Acute Illness/Injury Evidenced By Suboptimal Energy Intake ( Moderate),Physical Changes ( Moderate) Clinical Problem Acute Disease or Injury Related Malnutrition Etiology acute on likely chronic moderate malnutrition related to inadequate energy intake Signs/Symptoms as evidenced by estimated PO intake meeting <75% of estimated energy needs > 1 week, Moderate muscle wasting/ fat loss evident per physical exam in orbital, clavicle, acromion, and temporal areas Status Active Problem Recommendation Dietitian Recommendations/Changes recommend advance diet as tolerated to regular, consider DATABASE PROGRAMMER ANALYST evaluation d/t poor dentition, may need modified textures. Angel BID and Ensure Plus High Protein 120mL 4x/ day when diet advanced Lab / Micro Data 01/05/24 06:10 01/05/24 06:10 Labs: Laboratory Results - last 24 hr 01/04/24 05:15: WBC 36.9 H*, RBC 4.33 L, Hgb 13.5, Hct 39.9 L, MCV 92.1, MCH 31.2, MCHC 33.8, RDW Std Deviation 58.0 H, RDW Coeff of Yoli 18.6 H, Plt Count 495 H, MPV 11.1, Immature Gran % (Auto) 1.900 H, Neut % (Auto) 82.8 H, Lymph % (Auto) 8.1 L, Pine % (Auto) 6.5, Eos % (Auto) 0.2, Baso % (Auto) 0.5, Absolute Neuts (auto) 30.5 H, Absolute Lymphs (auto) 2.99, Nucleated RBC % 0, Differential Comment SCANNED, Diff Path Review March, Sodium 136, Potassium 4.2, Chloride 107, Carbon Dioxide 22.0, Anion Gap 7, BUN 45 H, Creatinine 0.98, Estim Creat Clear Calc 72.42, Est GFR (MDRD) Af Amer 97, Est GFR (MDRD) Non-Af 81, BUN/Creatinine Ratio 45.7 H, Glucose 99, Calcium 8.2 L, Total Bilirubin 1.20 H, AST 119 H, ALT 41, Alkaline Phosphatase 303 H, Total Protein 5.6 L, Albumin 1.6 L, Globulin 4.0, Albumin/Globulin Ratio 0.4 L Micro: Microbiology 01/01/24 10:50 Fluid - Ascites Gram Stain - Final 01/01/24 10:50 Fluid - Ascites Body Fluid Culture - Final Culture exhibits no growth. 12/31/23 13:35 Blood Culture (Wb) - Left Hand Blood Culture - Preliminary No growth in 48 hours. 12/31/23 13:17 Blood Culture (Wb) - Anticubital Right Blood Culture - Preliminary No growth in 48 hours. 12/31/23 13:35 Mucosa - Nose SARS-CoV-2, Influenza & RSV (PCR) - Final Radiography Diagnostic Testing: Radiology Impression Chest/Abdomen/Pelvis CT 01/04/24 11:37 IMPRESSION: 1. Interval development of mild diffuse gaseous dilatation of the transverse colon and several of the ileal loops. Mild fluid distention of the mid to distal ileum is also a new finding consistent with mild ileus. Oral contrast can be administered if there is concern for small bowel obstruction. 2. Redemonstration of patchy hypodensity and slight enlargement in the head of the pancreas possibly due to acute pancreatitis. No discrete pancreatic mass is seen, however evaluation of the pancreas is not adequately without intravenous contrast. Correlation with ultrasound can also be performed if indicated. 3. Moderate bilateral lower lobe atelectasis is present. Moderate-sized bilateral pleural effusions are also present. Normal heart and pericardium. Mild groundglass edema is present throughout the bilateral upper lung jacob as well as the right middle lobe and superior segments of the bilateral lower lobes. Electronically Signed: Romero Real MD at 14:45 EST Reading Location ID and State: [facility] / [place] , Service support , Rhythm Strip Rhythm Strip: Sinus Tach Rate: 103 Ectopy: None Assessment & Plan Assessment/Plan (1) Multifocal pneumonia: (2) Leukocytosis: (3) Acute encephalopathy: PLAN: Plan 68-year-old gentleman was brought to ED by paramedics for a complaint of altered mental status from [facility] with generalized weakness, not eating or drinking much. 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 Patient also complained of left lower quadrant abdominal pain. Cover for SBP. No fever or vomiting. 1 Acute distal descending and sigmoid colitis: Mild left lower quadrant tenderness. IV antibiotic switched to p.o Cipro and Flagyl. 2. Hypertension?continue routine home medications heart rate and blood pressure controlled. He would likely need to be switched to nadolol. 3. Ascites- with hepatic hydrothorax. He needs paracentesis. Check for SBP. He will likely need a VATS procedure in the future to prevent recurrent hepatic hydrothorax 4. History of cognitive dysfunction secondary to alcohol abuse and alcohol- related weakness/neuropathy?patient is presumably at his baseline but is poor historian at best at this time 5. Decubitus ulcer of the coccyx region, right heel: Recommend Wound care nurse consult. 6. 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 Check for chronic hepatitis B chronic hepatitis C, hemochromatosis, autoimmune hepatitis. His current MELD is low at 18. He is a child Becker class C at this time. He is not a candidate for TIPS procedure due to history of recurrent auto mental status. TIPS would make his auto mental status worse. Continue lactulose 30 cc p.o. every 6 hours and started Xifaxan 550 mg p.o. 3 times daily. Check B12, folate, start thiamine 100 mg a day. Clinical Impression(s) from Imaging Studies Chest X-Ray 12/22/23 17:57 IMPRESSION: Mildly displaced fractures of the eighth and ninth ribs..Possible tiny left pleural effusion Abdomen/Pelvis CT 12/22/23 18:24 IMPRESSION: Mildly prominent liver and spleen Massive abdominopelvic ascites possibly due to hepatocellular disease. Multifocal thickening of the chandler of the distal descending and sigmoid colon possibly representing colitis however clinical correlation is recommended. There is relatively hypoattenuated appearance to the head of the pancreas possibly representing focal pancreatitis Other findings as above Brain CT 12/22/23 18:24 IMPRESSION: Atrophy and periventricular white matter ischemic change. No acute bleed. If concern for acute infarct MRI recommended. Electronically Signed: Zhao Mcallister MD at 19:00 EST , 01/01/24- I cannot explain why his mental status is awaiting his right now. I am suspecting that recently he had pancreatitis and possibly resulted in ARDS and subsequent renal failure and bilateral pleural effusions. In that setting he may have developed community-acquired pneumonia since being out of the hospital. His platelet count is not consistent with cirrhosis even if it is an acute phase reactant in the setting of an infection from pneumonia. His paracentesis fluid did not look like SBP. 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 Recommend diuresis. Patient continue antibiotics. He should undergo an upper endoscopy to evaluate his upper GI tract to see if he has any signs of varices or portal hypertension. N.p.o. past midnight for possible upper endoscopy tomorrow. 01/04/24- The differential diagnosis for this elevated white blood cell count could be secondary to neutrophilic leukocytosis or leukemoid reaction. This could be because of underlying and nonresolving pancreatitis. The differential diagnosis for the increased fluid in his abdomen could be secondary to underlying nephrotic syndrome, hypoalbuminemia, pancreatitis, malnutrition less likely peritonitis. He would to get repeat paracentesis and his SAG gradient would have to be calculated with also checking a lipase and the fluid, amylase and fluid, protein electrophoresis of the fluid to make sure there is no underlying lymphoma, myeloma or amyloidosis in the fluid. He also has a presence of mild dilation in his colon and his Ileum that is possibly secondary to colonic pseudoobstruction in particular Inez syndrome. The dilation in the colon and the small bowel also can be secondary to small bacterial overgrowth. His imaging says that he does not have cirrhosis. The only way to confirm cirrhosis would be a liver biopsy after paracentesis. Recommendation: -Check IgG4 -Check J CARLOS -Check ANCA antibodies -Check ferritin, iron, TIBC and transferrin -Check LDH -Check CEA, CA 19-9 -Check urine for protein, check SPEP and UPEP -Check cardiac echo to see if the fluid is coming from alcoholic cardiomyopathy with low ejection fraction -Azithromycin 500 mg IV daily for small bowel dilation - Charges/Coding Visit Charges Inpatient E&M: 38677 Subs Hosp L3
[2024-01-04 18:40] LABS: Erythrocyte Sedimentation Rate 1 mm/hr (0-20)
[2024-01-04 18:43] LABS: Ammonia < 10.0 umol/L (11-32)
[2024-01-04 18:50] LABS: LDH 226 U/L (87-241); Thyroid Stim Hormone (TSH) 5.31 uIU/mL (0.358-3.74)
[2024-01-04 18:52] LABS: Lactic Acid 1.5 mmol/L (0.4-1.9)
[2024-01-04 20:34] LABS: International Normalized Ratio 1.6; Prothrombin Time (Protime)PT. 18.9 SECONDS (11.7-14.9)
[2024-01-05] VITALS (8 sets, daily range): BP systolic 105–117; BP diastolic 75–80; PULSE 96–106; RESP 17–20; TEMP 36.3–36.6; O2SAT 94–97
[2024-01-05] MEDS: Ipratropium/Albuterol Sulfate 3 ML AMPUL.NEB INHALATION ×4 (00:50→19:02)
[2024-01-05] MEDS: Meropenem 1 GM in 0.9% Normal Saline (100mL MB+) 100 ML IV ×3 (05:10→21:48)
[2024-01-05] MEDS: 0.9% Normal Saline (250mL Bag) 250 ML 15 ML IV (05:15)
[2024-01-05 06:49] LABS: Absolute Lymphocyte Count 2.47 X10^3/uL (0.83-4.51); Absolute Neutrophil Count 27.7 X10^3/uL (2.0-7.7); Basophil# 0.13 X10^3/uL; Basophil% 0.4 % (0-1); Eosinophil# 0.16 X10^3/uL; Eosinophils% 0.5 % (0-5); Hematocrit 35.8 % (40-54); Hemoglobin 12.3 g/dL (13.0-16.5); Lymphocyte # 2.47 X10^3/ul (0.83-4.51); Lymphocyte % 7.5 % (19-41); Mean Corp Hgb Conc 34.4 g/dL (32-36); Mean Corpuscular Hgb 31.2 pg (27.0-32.0); Mean Corpuscular Volume 90.9 fL (80-94); Monocyte# 2.16 X10^3/uL; Monocyte% 6.5 % (0-10); NRBC Flagged by Analyzer 0 % (0-5); Neutrophil # 27.71 X10^3/uL (2.7-7.7); Neutrophil % 83.7 % (47-70); POSITIVE COUNT YES; POSITIVE DIFFERENTIAL YES; Platelet Count 465 K/mm3 (150-450); RBC Distribution Width CV 18.4 % (11.6-14.6); RBC Distribution Width SD 55.8 fl (35.1-43.9); Red Blood Count 3.94 M/mm3 (4.6-6.2)
[2024-01-05 07:06] LABS: Differential Indicated SCAN CRITERIA MET; White Blood Count 33.1 K/mm3 (4.4-11.0)
[2024-01-05 07:25] LABS: ALB/GLOB Ratio 0.4 RATIO (0.9-2.4); AST(SGOT) 78 U/L (15-37); Alanine Aminotransfer ALT/SGPT 30 U/L (16-61); Albumin, Serum 1.6 g/dL (3.2-5.0); Alkaline Phosphatase 234 U/L (45-117); Anion Gap 7 (5-15); BUN 53 mg/dL (7-18); BUN/Creat Ratio 52.5 RATIO (10-20); Calcium,Total 8.1 mg/dL (8.5-10.1); Chloride 107 mmol/L (98-107); Creatinine, Serum 1.01 mg/dL (0.70-1.30); EST Glomerular Filtration Rate 78 mL/min (>60); Est Glom Filt Rate - Afr Amer 95 mL/min (>60); Estimated Creatinine Clearance 70.27 ml/min; Globulin 3.7 g/dL (2.2-4.2); Glucose 93 mg/dL (74-106); Potassium 3.3 mmol/L (3.5-5.1); Protein, Total 5.3 g/dL (6.4-8.2); Sodium Level 136 mmol/L (136-145)
--- NOTE | 2024-01-05 08:51 | CASEMGMT ---
Discharge Planning Updates sent to [facility]. Simona Chandra, Discharge Planning Asst.
[2024-01-05] MEDS: Furosemide 40 MG/4 ML Vial IV (09:52)
[2024-01-05] MEDS: Juven (unflavored) Packet 1 PACKET PO ×2 (09:52→21:48)
[2024-01-05] MEDS: Amiodarone 200 MG Tablet PO (09:52)
[2024-01-05] MEDS: Heparin Injection (Vial) 5,000 UNIT/ML VIAL 5000 UNIT SC ×2 (09:52→21:53)
[2024-01-05] MEDS: 0.9% Saline Lock 10 ML Syringe IV ×2 (09:54→14:53)
[2024-01-05] MEDS: Menthol/Lanolin/Calamine/Znox 113 GM Tube 1 APPLIC TOPICAL ×2 (09:59→21:48)
[2024-01-05 12:08] LABS: Anti-Centromere B Ab <0.2 AI (0.0-0.9); Anti-Chromatin 0.4 AI (0.0-0.9); Anti-Jo <0.2 AI (0.0-0.9); Anti-Scleroderma-70 AB <0.2 AI (0.0-0.9); Anti-dsDNA Ab 3 IU/mL (0-9); RNP Ab 3.6 AI (0.0-0.9); SJOGREN'S Anti-SS-A test < 0.2 AI (0.0-0.9); SJOGREN'S Anti-SS-B test 0.3 AI (0.0-0.9); Smith Ab <0.2 AI (0.0-0.9)
--- NOTE | 2024-01-05 13:07 | PCM.PN.HOSP ---
Reason for Visit Reason for Visit: Diagnoses Elevated white blood cell count, unspecified (12/31/23) Encephalopathy, unspecified (12/31/23) Pneumonia, unspecified organism (12/31/23) Noninfective gastroenteritis and colitis, unspecified (12/31/23) Other ascites (12/31/23) Subjective Subjective No acute events overnight. Patient seen at bedside this morning. Laying back comfortably in bed, appears mildly fatigued and weak, weak voice and difficult to understand what he is saying, otherwise no acute distress. Patient currently reports mild abdominal pain, similar to yesterday. Denies any other acute pain or discomfort. No other acute concerns morning. Objective Data Objective Data Vital Signs: Vital Signs Temp Pulse Resp BP Pulse Ox O2 Del Method O2 Flow Rate 97.3 F L 101 H 18 114/75 96 Room Air 2 01/05/24 09:40 01/05/24 09:40 01/05/24 09:40 01/05/24 09:40 01/05/24 09:40 01/05/24 09:40 01/02/24 12:51 Oxygen Flow Rate (L/min) 2 Oxygen Delivery Method Room Air Weight: 70 kg Body Mass Index (BMI) 19.8 Intake & Output: Intake and Output for Last 24 Hours 01/03/24 01/04/24 01/05/24 23:59 23:59 23:59 Intake Total 810 / 810 854.17 / 854.17 229.70 / 229.70 Output Total 950 / 1000 675 / 675 150 / 150 Balance -140 / -190 179.17 / 179.17 79.70 / 79.70 Medical Nutrition Assessment Dietitian: Malnutrition Criteria Met Start: 01/01/24 11:38 Freq: Status: Active Protocol: Document 01/05/24 12:31 RMA (Rec: 01/05/24 12:31 RMA [id number]) Nutrition Malnutrition Evidence of Malnutrition Exists Yes Malnutrition (moderate): Acute Illness/Injury Evidenced By Suboptimal Energy Intake ( Moderate),Physical Changes ( Moderate) Clinical Problem Acute Disease or Injury Related Malnutrition Etiology acute on likely chronic moderate malnutrition related to inadequate energy intake Signs/Symptoms as evidenced by estimated PO intake meeting <75% of estimated energy needs > 1 week, Moderate muscle wasting/ fat loss evident per physical exam in orbital, clavicle, acromion, and temporal areas Status Active Problem Recommendation Dietitian Recommendations/Changes Continue liberalized regular diet. Consider MANIFEST/ORDER ORGANIZER PRINT ORDERS evaluation d/t poor dentition, may need modified textures. Will Will continue Angel BID and add Ensure Plus High Protein 120mL 4x/day with medpass. Trend weights as available. Lab / Micro Data 01/05/24 06:10 01/05/24 06:10 Labs: Laboratory Results - last 24 hr 01/01/24 20:25: DORIS-1 Antibody <0.2, SS-A/Ro IgG Antibody < 0.2, SS-B/La IgG Antibody 0.3, Sm (Mcbride) Antibody <0.2, WAREHOUSE COORDINATOR Antibody 3.6 H, Scl-70 Scleroderma Ab <0.2, Double Strand DNA Ab 3, Centromere B Antibody <0.2 01/04/24 17:50: ESR 1, Lactic Acid 1.5, Ammonia < 10.0 L, Lactate Dehydrogenase 226, C-React Prot Ext Range 178.00 H, TSH 5.31 H 01/04/24 19:43: PT 18.9 H, INR 1.6 01/05/24 06:10: WBC 33.1 H*, RBC 3.94 L, Hgb 12.3 L, Hct 35.8 L, MCV 90.9, MCH 31.2, MCHC 34.4, RDW Std Deviation 55.8 H, RDW Coeff of Yoli 18.4 H, Plt Count 465 H, MPV 11.0, Immature Gran % (Auto) 1.400 H, Neut % (Auto) 83.7 H, Lymph % (Auto) 7.5 L, [place] % (Auto) 6.5, Eos % (Auto) 0.5, Baso % (Auto) 0.4, Absolute Neuts (auto) 27.7 H, Absolute Lymphs (auto) 2.47, Nucleated RBC % 0, Diff Path Review March, Sodium 136, Potassium 3.3 L, Chloride 107, Carbon Dioxide 22.0, Anion Gap 7, BUN 53 H, Creatinine 1.01, Estim Creat Clear Calc 70.27, Est GFR (MDRD) Af Amer 95, Est GFR (MDRD) Non-Af 78, BUN/Creatinine Ratio 52.5 H, Glucose 93, Calcium 8.1 L, Total Bilirubin 0.90, AST 78 H, ALT 30, Alkaline Phosphatase 234 H, Total Protein 5.3 L, Albumin 1.6 L, Globulin 3.7, Albumin/Globulin Ratio 0.4 L Micro: Microbiology 01/01/24 10:50 Fluid - Ascites Gram Stain - Final 01/01/24 10:50 Fluid - Ascites Body Fluid Culture - Final Culture exhibits no growth. 12/31/23 13:35 Blood Culture (Wb) - Left Hand Blood Culture - Preliminary No growth in 48 hours. 12/31/23 13:17 Blood Culture (Wb) - Anticubital Right Blood Culture - Preliminary No growth in 48 hours. 12/31/23 13:35 Mucosa - Nose SARS-CoV-2, Influenza & RSV (PCR) - Final Radiography Diagnostic Testing: Radiology Impression Chest/Abdomen/Pelvis CT 01/04/24 11:37 IMPRESSION: 1. Interval development of mild diffuse gaseous dilatation of the transverse colon and several of the ileal loops. Mild fluid distention of the mid to distal ileum is also a new finding consistent with mild ileus. Oral contrast can be administered if there is concern for small bowel obstruction. 2. Redemonstration of patchy hypodensity and slight enlargement in the head of the pancreas possibly due to acute pancreatitis. No discrete pancreatic mass is seen, however evaluation of the pancreas is not adequately without intravenous contrast. Correlation with ultrasound can also be performed if indicated. 3. Moderate bilateral lower lobe atelectasis is present. Moderate-sized bilateral pleural effusions are also present. Normal heart and pericardium. Mild groundglass edema is present throughout the bilateral upper lung jacob as well as the right middle lobe and superior segments of the bilateral lower lobes. Electronically Signed: Romero Real MD at 14:45 EST , Rhythm Strip Rhythm Strip: Sinus Tach Rate: 103 Ectopy: None Physical Exam Const alert, no apparent distress and average body habitus Constitutional Narrative: Elderly male, chronically ill-appearing, fatigued, making appropriate eye contact but has weak voice and is difficult to understand, otherwise laying comfortably in bed and in no acute distress. General Appearance: cooperative and comfortable HEENT normocephalic, head/scalp atraumatic, hearing grossly normal bilaterally and nasal mucous membranes and turbinates normal Eyes PERRL, EOMs intact bilaterally and conjunctivae normal Neck full ROM Chest inspection of chest normal Resp normal respiratory effort, normal air movement, no use of accessory muscles and clear to auscultation bilaterally Cardio regular rate, regular rhythm, no murmurs and peripheral pulses 2+ throughout GI GI Narrative: Mildly distended, mildly tender to palpation diffusely, no guarding noted. Back/Spine normal ROM Extremity normal to inspection, full ROM and no pedal edema Skin no rashes or lesions noted Neuro no focal motor deficits and no sensory deficits noted Assessment & Plan Assessment/Plan (1) Acute encephalopathy: (2) Decompensation of cirrhosis of liver: (3) SBP (spontaneous bacterial peritonitis): (4) Chronic systolic congestive heart failure: PLAN: Plan Patient is a 68-year-old male who presented to [facility] ED on 12/31/2023 with lethargy and altered mental status. 1. Acute metabolic encephalopathy ? Unclear etiology. Has known history of mild cognitive dysfunction suspected secondary to history of alcohol use disorder. Current altered mentation could be secondary to Warnicke's encephalopathy. Could also be secondary to infection as noted below. ? Mildly improved on 01/04. Continue treatment as below. 2. Decompensated alcoholic cirrhosis with ascites, spontaneous bacterial peritonitis, persistent leukocytosis ? GI and ID following. S/p paracentesis on with 2900 mL of dark werner-colored fluid removed. Showed SBP with neutrophil count of 515. Fluid cultures and blood cultures negative thus far. ? Suspect that persistent leukocytosis may be secondary to decompensated alcoholic cirrhosis. ? Planning for repeat paracentesis in next 1 to 2 days. Continue IV Lasix 40 mg daily. Continue lactulose. ? Continue meropenem for now per ID recs. 3. Acute distal descending and sigmoid colitis ? Recent CT abdomen/pelvis on 12/22 showed multifocal thickening of chandler of distal descending and sigmoid colon possibly representing colitis. ? GI following as above. Recommendation per GI was for p.o. Cipro and Flagyl, but will continue meropenem for now as noted above. 4. Gastritis and gastric ulcers ? EGD on 01/01 showed acute gastritis with oozing gastric ulcers that were treated with heater probe. ? Hemoglobin has remained stable between 12-13 since admission. ? Continue p.o. PPI twice daily. 5. Worsening HFrEF, history of CAD ? Known history of HFrEF, last echo in 05/2022 showed EF 35%, stage I diastolic dysfunction, mildly dilated LV. ? Noted to have moderate-sized bilateral pleural effusions on chest imaging on admission. ? Echo showed EF 20%, stage I diastolic dysfunction, severe global hypokinesis of LV. ? Discussed with on-call cardiology, no active intervention recommended for drop in EF. ? Continue home Toprol and Plavix. Continue IV lasix as noted above. 6. Debility ? Presented from [facility] facility. PT/OT/case management following. Likely back to nursing facility on discharge. Chronic medical conditions: ? Hypertension, hyperlipidemia: Continue home metoprolol and statin. ? History of alcohol use disorder with resultant cognitive dysfunction: Continue thiamine. ? History of pulmonary nodule: Stable. Outpatient follow-up with pulmonology. ? History of ventricular tachycardia s/p ICD placement: Continue home amiodarone. DVT prophylaxis: SCDs CODE STATUS: DNR CCA, DNI Expected disposition: TBD Total clinical time spent by myself addressing the patient's medical issues, reviewing all the data, and collaborating with patient's care team: 35 minutes. Charges/Coding Visit Charges Inpatient E&M: 37899 Subs Hosp L2
[2024-01-05 13:09] LABS: Pathologist Review Reviewed
[2024-01-05 13:10] LABS: Pathologist Review Reviewed
[2024-01-05 13:12] LABS: Pathologist Review Reviewed
[2024-01-05] MEDS: Lactulose 20 GM/30 ML UDC 10 GM PO ×2 (14:57→20:05)
[2024-01-05] MEDS: Ensure Plus High Protein 120 ML LIQUID PO ×3 (14:58→21:48)
[2024-01-05 15:08] LABS: AFP, Tumor Marker 3.9 ng/mL (0.0-8.4); Aldolase 1.9 U/L (3.3-10.3); Anti-Smooth Muscle ABS 31 Units (0-19); Cytoplasmic Ab (C-ANCA) <1:20 titer (Neg:<1:20); Perinuclear Ab (P-ANCA) <1:20 titer (Neg:<1:20)
--- NOTE | 2024-01-05 16:36 | PCM.PN.ID ---
Physical Exam Narrative No fever, no events overnight Const no apparent distress Orientation / Consciousness: lethargic Resp normal air movement and clear to auscultation bilaterally Cardio regular rate and regular rhythm GI soft to palpation, non-tender and non-distended Skin no rashes or lesions noted ID ID: Route of nutrition/ use of supplements: [] Nutritional Intake: [] IV Site: [] Rai Catheter: [] Assessment & Plan Assessment/Plan (1) Leukocytosis: PLAN: Paracentesis shows SBP with neutrophil count of 515. Fluid cx neg so far. Repeat tap planned. Bcx neg so far. Cont lui. Will follow (2) Acute encephalopathy: (3) Abdominal ascites: QUALIFIERS: Ascites type: other type Qualified Code(s): R18.8 - Other ascites
[2024-01-05 17:07] LABS: pH, Body Fluid 11254 7.5 (Not Estab.)
--- NOTE | 2024-01-05 18:08 | PN.GI_ITS ---
Objective Data Objective Data Vital Signs: Vital Signs Temp Pulse Resp BP Pulse Ox O2 Del Method O2 Flow Rate 97.9 F 101 H 18 117/77 97 Room Air 2 01/05/24 16:30 01/05/24 16:30 01/05/24 16:30 01/05/24 16:30 01/05/24 16:30 01/05/24 16:30 01/02/24 12:51 Oxygen Flow Rate (L/min) 2 Oxygen Delivery Method Room Air Weight: 154 lb 5.177 oz Body Mass Index (BMI) 19.8 Intake & Output: Intake and Output for Last 24 Hours 01/03/24 01/04/24 01/05/24 23:59 23:59 23:59 Intake Total 810 / 810 854.17 / 854.17 609.70 / 609.70 Output Total 950 / 1000 675 / 675 600 / 600 Balance -140 / -190 179.17 / 179.17 9.70 / 9.70 Medical Nutrition Assessment Dietitian: Malnutrition Criteria Met Start: 01/01/24 11:38 Freq: Status: Active Protocol: Document 01/05/24 12:31 RMA (Rec: 01/05/24 12:31 RMA [id number]) Nutrition Malnutrition Evidence of Malnutrition Exists Yes Malnutrition (moderate): Acute Illness/Injury Evidenced By Suboptimal Energy Intake ( Moderate),Physical Changes ( Moderate) Clinical Problem Acute Disease or Injury Related Malnutrition Etiology acute on likely chronic moderate malnutrition related to inadequate energy intake Signs/Symptoms as evidenced by estimated PO intake meeting <75% of estimated energy needs > 1 week, Moderate muscle wasting/ fat loss evident per physical exam in orbital, clavicle, acromion, and temporal areas Status Active Problem Recommendation Dietitian Recommendations/Changes Continue liberalized regular diet. Consider COMPUTER REPAIR ENGINEER evaluation d/t poor dentition, may need modified textures. Will Will continue Angel BID and add Ensure Plus High Protein 120mL 4x/day with medpass. Trend weights as available. Lab / Micro Data 01/05/24 06:10 01/05/24 06:10 Labs: Laboratory Results - last 24 hr 01/01/24 10:50: Fluid pH 7.5 01/01/24 20:25: Aldolase 1.9 L, Tumor Marker AFP 3.9, c-ANCA Antibody <1:20, Atypical p-ANCA <1:20, p-ANCA Antibody <1:20, DORIS-1 Antibody <0.2, SS-A/Ro IgG Antibody < 0.2, SS-B/La IgG Antibody 0.3, Sm (Mcbride) Antibody <0.2, PUBLIC HEALTH AIDE Antibody 3.6 H, Scl-70 Scleroderma Ab <0.2, Double Strand DNA Ab 3, Centromere B Antibody <0.2, Anti-Smooth Muscle Ab 31 H 01/02/24 15:59: Diff Path Review Reviewed 01/03/24 06:24: Diff Path Review Reviewed 01/04/24 05:15: Diff Path Review Reviewed 01/04/24 17:50: ESR 1, Lactic Acid 1.5, Ammonia < 10.0 L, Lactate Dehydrogenase 226, C-React Prot Ext Range 178.00 H, TSH 5.31 H 01/04/24 19:43: PT 18.9 H, INR 1.6 01/05/24 06:10: WBC 33.1 H*, RBC 3.94 L, Hgb 12.3 L, Hct 35.8 L, MCV 90.9, MCH 31.2, MCHC 34.4, RDW Std Deviation 55.8 H, RDW Coeff of Yoli 18.4 H, Plt Count 465 H, MPV 11.0, Immature Gran % (Auto) 1.400 H, Neut % (Auto) 83.7 H, Lymph % (Auto) 7.5 L, [place] % (Auto) 6.5, Eos % (Auto) 0.5, Baso % (Auto) 0.4, Absolute Neuts (auto) 27.7 H, Absolute Lymphs (auto) 2.47, Nucleated RBC % 0, Diff Path Review March, Sodium 136, Potassium 3.3 L, Chloride 107, Carbon Dioxide 22.0, Anion Gap 7, BUN 53 H, Creatinine 1.01, Estim Creat Clear Calc 70.27, Est GFR (MDRD) Af Amer 95, Est GFR (MDRD) Non-Af 78, BUN/Creatinine Ratio 52.5 H, Glucose 93, Calcium 8.1 L, Total Bilirubin 0.90, AST 78 H, ALT 30, Alkaline Ph osphatase 234 H, Total Protein 5.3 L, Albumin 1.6 L, Globulin 3.7, Albumin/Globulin Ratio 0.4 L Micro: Microbiology 12/31/23 13:35 Blood Culture (Wb) - Left Hand Blood Culture - Final No growth in 5 days. 12/31/23 13:17 Blood Culture (Wb) - Anticubital Right Blood Culture - Final No growth in 5 days. 01/01/24 10:50 Fluid - Ascites Gram Stain - Final 01/01/24 10:50 Fluid - Ascites Body Fluid Culture - Final Culture exhibits no growth. 12/31/23 13:35 Mucosa - Nose SARS-CoV-2, Influenza & RSV (PCR) - Final Rhythm Strip Rhythm Strip: Sinus Tach Rate: 103 Ectopy: None Assessment & Plan Assessment/Plan (1) Multifocal pneumonia: (2) Leukocytosis: (3) Acute encephalopathy: PLAN: Plan 68-year-old gentleman was brought to ED by paramedics for a complaint of altered mental status from residential with generalized weakness, not eating or drinking much. 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 Patient also complained of left lower quadrant abdominal pain. Cover for SBP. No fever or vomiting. 1 Acute distal descending and sigmoid colitis: Mild left lower quadrant tenderness. IV antibiotic switched to p.o Cipro and Flagyl. 2. Hypertension?continue routine home medications heart rate and blood pressure controlled. He would likely need to be switched to nadolol. 3. Ascites- with hepatic hydrothorax. He needs paracentesis. Check for SBP. He will likely need a VATS procedure in the future to prevent recurrent hepatic hydrothorax 4. History of cognitive dysfunction secondary to alcohol abuse and alcohol- related weakness/neuropathy?patient is presumably at his baseline but is poor historian at best at this time 5. Decubitus ulcer of the coccyx region, right heel: Recommend Wound care nurse consult. 6. 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 Check for chronic hepatitis B chronic hepatitis C, hemochromatosis, autoimmune hepatitis. His current MELD is low at 18. He is a child Becker class C at this time. He is not a candidate for TIPS procedure due to history of recurrent auto mental status. TIPS would make his auto mental status worse. Continue lactulose 30 cc p.o. every 6 hours and started Xifaxan 550 mg p.o. 3 times daily. Check B12, folate, start thiamine 100 mg a day. Clinical Impression(s) from Imaging Studies Chest X-Ray 12/22/23 17:57 IMPRESSION: Mildly displaced fractures of the eighth and ninth ribs..Possible tiny left pleural effusion Abdomen/Pelvis CT 12/22/23 18:24 IMPRESSION: Mildly prominent liver and spleen Massive abdominopelvic ascites possibly due to hepatocellular disease. Multifocal thickening of the chandler of the distal descending and sigmoid colon possibly representing colitis however clinical correlation is recommended. There is relatively hypoattenuated appearance to the head of the pancreas possibly representing focal pancreatitis Other findings as above Brain CT 12/22/23 18:24 IMPRESSION: Atrophy and periventricular white matter ischemic change. No acute bleed. If concern for acute infarct MRI recommended. Electronically Signed: Zhao Mcallister MD at 19:00 EST , 01/01/24- I cannot explain why his mental status is awaiting his right now. I am suspecting that recently he had pancreatitis and possibly resulted in ARDS and subsequent renal failure and bilateral pleural effusions. In that setting he may have developed community-acquired pneumonia since being out of the hospital. His platelet count is not consistent with cirrhosis even if it is an acute p hase reactant in the setting of an infection from pneumonia. His paracentesis fluid did not look like SBP. 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 Recommend diuresis. Patient continue antibiotics. He should undergo an upper endoscopy to evaluate his upper GI tract to see if he has any signs of varices or portal hypertension. N.p.o. past midnight for possible upper endoscopy tomorrow. 01/04/24- The differential diagnosis for this elevated white blood cell count could be secondary to neutrophilic leukocytosis or leukemoid reaction. This could be because of underlying and nonresolving pancreatitis. The differential diagnosis for the increased fluid in his abdomen could be secondary to underlying nephrotic syndrome, hypoalbuminemia, pancreatitis, malnutrition less likely peritonitis. He would to get repeat paracentesis and his SAG gradient would have to be calculated with also checking a lipase and the fluid, amylase and fluid, protein electrophoresis of the fluid to make sure there is no und erlying lymphoma, myeloma or amyloidosis in the fluid. 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 The dilation in the colon and the small bowel also can be secondary to small bacterial overgrowth. His imaging says that he does not have cirrhosis. The only way to confirm cirrhosis would be a liver biopsy after paracentesis. Recommendation: -Check IgG4 -Check J CARLOS -Check ANCA antibodies -Check ferritin, iron, TIBC and transferrin -Check LDH -Check CEA, CA 19-9 -Check urine for protein, check SPEP and UPEP -Check cardiac echo to see if the fluid is coming from alcoholic cardiomyopathy with low ejection fraction -Azithromycin 500 mg IV daily for small bowel dilation 01/05/24-Patient's neutrophil count in the ascitic fluid was very high at 515. But the culture has been negative. Appreciate infectious disease help with management of antibiotics. His CRP is still very elevated. I am awaiting further workup to see if he has any signs of autoimmune disease that is driving his inflammatory reaction. Also waiting for protein electrophoresis to see if he is secreting any abnormal protein and may be contributing to his ascites. Awaiting on repeat paracentesis to recalculate his SAG gradient. Patients with culture negative neutrocytic ascites have a mortality rate comparable to spontaneous bacterial peritonitis. aspartate aminotransferase, alanine aminotransferase , acute kidney injury , model for end stage liver disease and septic shock are the independent predictors of 50?days in-hospital mortality in culture negative neutrocytic asc ites. Guarded prognosis Charges/Coding Visit Charges Inpatient E&M: 07063 Subs Hosp L3
[2024-01-06] VITALS (8 sets, daily range): BP systolic 97–120; BP diastolic 57–91; PULSE 56–102; RESP 16–20; TEMP 36.3–36.6; O2SAT 92–96
[2024-01-06] MEDS: Meropenem 1 GM in 0.9% Normal Saline (100mL MB+) 100 ML IV ×3 (05:16→21:26)
[2024-01-06 06:41] LABS: Absolute Neutrophil Count 29.2 X10^3/uL (2.0-7.7); Basophil% 0.3 % (0-1); Eosinophil# 0.07 X10^3/uL; Eosinophils% 0.2 % (0-5); Hematocrit 37.1 % (40-54); Hemoglobin 12.8 g/dL (13.0-16.5); Lymphocyte % 6.5 % (19-41); Mean Corp Hgb Conc 34.5 g/dL (32-36); Mean Corpuscular Hgb 31.4 pg (27.0-32.0); Mean Corpuscular Volume 91.2 fL (80-94); Mean Platelet Vol. 10.7 fl (6.2-12.0); Monocyte# 2.86 X10^3/uL; Monocyte% 8.1 % (0-10); NRBC Flagged by Analyzer 0 % (0-5); Neutrophil % 82.8 % (47-70); POSITIVE COUNT YES; POSITIVE DIFFERENTIAL YES; Platelet Count 432 K/mm3 (150-450); RBC Distribution Width CV 19.1 % (11.6-14.6); RBC Distribution Width SD 58.1 fl (35.1-43.9); Red Blood Count 4.07 M/mm3 (4.6-6.2); White Blood Count 35.3 K/mm3 (4.4-11.0)
[2024-01-06] MEDS: Ipratropium/Albuterol Sulfate 3 ML AMPUL.NEB INHALATION ×3 (06:47→19:21)
[2024-01-06 06:54] LABS: Differential Indicated SCAN CRITERIA MET
[2024-01-06 07:58] LABS: ALB/GLOB Ratio 0.4 RATIO (0.9-2.4); AST(SGOT) 96 U/L (15-37); Alanine Aminotransfer ALT/SGPT 33 U/L (16-61); Albumin, Serum 1.6 g/dL (3.2-5.0); Alkaline Phosphatase 272 U/L (45-117); Anion Gap 5 (5-15); BUN 58 mg/dL (7-18); BUN/Creat Ratio 52.3 RATIO (10-20); Calcium,Total 8.6 mg/dL (8.5-10.1); Chloride 109 mmol/L (98-107); Creatinine, Serum 1.11 mg/dL (0.70-1.30); EST Glomerular Filtration Rate 70 mL/min (>60); Est Glom Filt Rate - Afr Amer 85 mL/min (>60); Estimated Creatinine Clearance 63.94 ml/min; Globulin 4.3 g/dL (2.2-4.2); Glucose 109 mg/dL (74-106); Potassium 3.8 mmol/L (3.5-5.1); Protein, Total 5.9 g/dL (6.4-8.2); Sodium Level 135 mmol/L (136-145)
[2024-01-06] MEDS: Menthol/Lanolin/Calamine/Znox 113 GM Tube 1 APPLIC TOPICAL ×2 (09:41→21:29)
[2024-01-06] MEDS: Amiodarone 200 MG Tablet PO (09:42)
[2024-01-06] MEDS: Ensure Plus High Protein 120 ML LIQUID PO ×4 (09:42→21:27)
[2024-01-06] MEDS: Juven (unflavored) Packet 1 PACKET PO ×2 (09:42→21:27)
--- NOTE | 2024-01-06 10:13 | PCM.PN.HOSP ---
Reason for Visit Reason for Visit: Diagnoses Elevated white blood cell count, unspecified (12/31/23) Encephalopathy, unspecified (12/31/23) Chronic systolic (congestive) heart failure (12/31/23) Pneumonia, unspecified organism (12/31/23) Noninfective gastroenteritis and colitis, unspecified (12/31/23) Spontaneous bacterial peritonitis (12/31/23) Hepatic failure, unspecified without coma (12/31/23) Unspecified cirrhosis of liver (12/31/23) Other ascites (12/31/23) Subjective Subjective No acute events overnight. Patient seen at bedside this morning. Patient laying back in bed, in no acute distress. Is alert but continues to appear fatigued and weak, similar to previous days. Continues to mumble responses with weak voice, difficult to understand him. He denies any acute pain or discomfort this morning, states his abdominal pain is better than yesterday. No other acute concerns at this time. Objective Data Objective Data Vital Signs: Vital Signs Temp Pulse Resp BP Pulse Ox O2 Del Method O2 Flow Rate 97.8 F 99 16 106/57 L 96 Room Air 2 01/06/24 09:32 01/06/24 09:32 01/06/24 09:32 01/06/24 09:32 01/06/24 09:32 01/06/24 09:32 01/02/24 12:51 Oxygen Flow Rate (L/min) 2 Oxygen Delivery Method Room Air Weight: 70 kg Body Mass Index (BMI) 19.8 Intake & Output: Intake and Output for Last 24 Hours 01/04/24 01/05/24 01/06/24 23:59 23:59 23:59 Intake Total 854.17 / 854.17 1089.70 / 1089.70 320 / 320 Output Total 675 / 675 600 / 750 150 / 150 Balance 179.17 / 179.17 489.70 / 339.70 170 / 170 Medical Nutrition Assessment Dietitian: Malnutrition Criteria Met Start: 01/01/24 11:38 Freq: Status: Active Protocol: Document 01/05/24 12:31 RMA (Rec: 01/05/24 12:31 RMA [id number]) Nutrition Malnutrition Evidence of Malnutrition Exists Yes Malnutrition (moderate): Acute Illness/Injury Evidenced By Suboptimal Energy Intake ( Moderate),Physical Changes ( Moderate) Clinical Problem Acute Disease or Injury Related Malnutrition Etiology acute on likely chronic moderate malnutrition related to inadequate energy intake Signs/Symptoms as evidenced by estimated PO intake meeting <75% of estimated energy needs > 1 week, Moderate muscle wasting/ fat loss evident per physical exam in orbital, clavicle, acromion, and temporal areas Status Active Problem Recommendation Dietitian Recommendations/Changes Continue liberalized regular diet. Consider SENIOR FINANCIAL CONSULTANT evaluation d/t poor dentition, may need modified textures. Will Will continue Angel BID and add Ensure Plus High Protein 120mL 4x/day with medpass. Trend weights as available. Lab / Micro Data 01/06/24 06:20 01/06/24 06:20 Labs: Laboratory Results - last 24 hr 01/01/24 10:50: Fluid pH 7.5 01/01/24 20:25: Aldolase 1.9 L, Tumor Marker AFP 3.9, c-ANCA Antibody <1:20, Atypical p-ANCA <1:20, p-ANCA Antibody <1:20, DORIS-1 Antibody <0.2, SS-A/Ro IgG Antibody < 0.2, SS-B/La IgG Antibody 0.3, Sm (Mcbride) Antibody <0.2, SET DESIGNER Antibody 3.6 H, Scl-70 Scleroderma Ab <0.2, Double Strand DNA Ab 3, Centromere B Antibody <0.2, Anti-Smooth Muscle Ab 31 H 01/02/24 15:59: Diff Path Review Reviewed 01/03/24 06:24: Diff Path Review Reviewed 01/04/24 05:15: Diff Path Review Reviewed 01/06/24 06:20: WBC 35.3 H*, RBC 4.07 L, Hgb 12.8 L, Hct 37.1 L, MCV 91.2, MCH 31.4, MCHC 34.5, RDW Std Deviation 58.1 H, RDW Coeff of Yoli 19.1 H, Plt Count 432, MPV 10.7, Immature Gran % (Auto) 2.100 H, Neut % (Auto) 82.8 H, Lymph % (Auto) 6.5 L, [place] % (Auto) 8.1, Eos % (Auto) 0.2, Baso % (Auto) 0.3, Absolute Neuts (auto) 29.2 H, Absolute Lymphs (auto) 2.30, Nucleated RBC % 0, Differential Comment COMMENT, Diff Path Review May foll, Sodium 135 L, Potassium 3.8, Chloride 109 H, Carbon Dioxide 21.0, Anion Gap 5, BUN 58 H, Creatinine 1.11, Estim Creat Clear Calc 63.94, Est GFR (MDRD) Af Amer 85, Est GFR (MDRD) Non-Af 70, BUN/Creatinine Ratio 52.3 H, Glucose 109 H, Calcium 8.6, Total Bilirubin 0.90, AST 96 H, ALT 33, Alkaline Phosphatase 272 H, Total Protein 5.9 L, Albumin 1.6 L, Globulin 4.3 H, Albumin/Globulin Ratio 0.4 L Micro: Microbiology 01/01/24 10:50 Fluid - Ascites Gram Stain - Final 01/01/24 10:50 Fluid - Ascites Body Fluid Culture - Final Culture exhibits no growth. 01/01/24 10:50 Fluid - Ascites Anaerobic Culture - Final No growth in 5 days. 12/31/23 13:35 Blood Culture (Wb) - Left Hand Blood Culture - Final No growth in 5 days. 12/31/23 13:17 Blood Culture (Wb) - Anticubital Right Blood Culture - Final No growth in 5 days. 12/31/23 13:35 Mucosa - Nose SARS-CoV-2, Influenza & RSV (PCR) - Final Rhythm Strip Rhythm Strip: Sinus Tach Rate: 103 Ectopy: None Physical Exam Const alert, no apparent distress and average body habitus Constitutional Narrative: Elderly male, chronically ill-appearing, fatigued, making appropriate eye contact but has weak voice and is difficult to understand, otherwise laying comfortably in bed and in no acute distress. General Appearance: cooperative and comfortable HEENT normocephalic, head/scalp atraumatic, hearing grossly normal bilaterally and nasal mucous membranes and turbinates normal Eyes PERRL, EOMs intact bilaterally and conjunctivae normal Neck full ROM Chest inspection of chest normal Resp normal respiratory effort, normal air movement, no use of accessory muscles and clear to auscultation bilaterally Cardio regular rate, regular rhythm, no murmurs and peripheral pulses 2+ throughout GI GI Narrative: Mildly distended, soft, nontender to palpation. Back/Spine normal ROM Extremity normal to inspection, full ROM and no pedal edema Skin no rashes or lesions noted Neuro no focal motor deficits and no sensory deficits noted Assessment & Plan Assessment/Plan (1) Acute encephalopathy: (2) Decompensation of cirrhosis of liver: (3) SBP (spontaneous bacterial peritonitis): (4) Chronic systolic congestive heart failure: PLAN: Plan Patient is a 68-year-old male who presented to [facility] ED on 12/31/2023 with lethargy and altered mental status. 1. Acute metabolic encephalopathy, improving ? Unclear etiology. Has known history of mild cognitive dysfunction suspected secondary to history of alcohol use disorder. Current altered mentation could be secondary to Warnicke's encephalopathy. Could also be secondary to infection as noted below. ? Mildly improved from admission, stable. Continue treatment as below. 2. Decompensated alcoholic cirrhosis with ascites, spontaneous bacterial peritonitis, persistent leukocytosis ? GI and ID following. S/p paracentesis on with 2900 mL of dark werner-colored fluid removed. Showed SBP with neutrophil count of 515. Fluid cultures and blood cultures negative thus far. ? Suspect that persistent leukocytosis may be secondary to decompensated alcoholic cirrhosis. ? Planning for repeat paracentesis in next 1 to 2 days. ? De-escalated from IV Lasix 40 mg daily to p.o. Lasix 40 mg daily on 01/05 as creatinine was slowly worsening. Continue lactulose. Monitor kidney function daily. ? Continue meropenem for now per ID recs. 3. Acute distal descending and sigmoid colitis ? Recent CT abdomen/pelvis on 12/22 showed multifocal thickening of chandler of distal descending and sigmoid colon possibly representing colitis. ? GI following as above. Recommendation per GI was for p.o. Cipro and Flagyl, but will continue meropenem for now as noted above. 4. Gastritis and gastric ulcers ? EGD on 01/01 showed acute gastritis with oozing gastric ulcers that were treated with heater probe. ? Hemoglobin has remained stable between 12-13 since admission. ? Continue p.o. PPI twice daily. 5. Worsening HFrEF, history of CAD ? Known history of HFrEF, last echo in 05/2022 showed EF 35%, stage I diastolic dysfunction, mildly dilated LV. ? Noted to have moderate-sized bilateral pleural effusions on chest imaging on admission. ? Echo showed EF 20%, stage I diastolic dysfunction, severe global hypokinesis of LV. ? Discussed with on-call cardiology, no active intervention recommended for drop in EF. ? Continue home Toprol and Plavix. Continue p.o. Lasix as noted above. 6. Debility ? Presented from senior living facility. PT/OT/case management following. Likely back to nursing facility on discharge. Chronic medical conditions: ? Hypertension, hyperlipidemia: Continue home metoprolol and statin. ? History of alcohol use disorder with resultant cognitive dysfunction: Continue thiamine. ? History of pulmonary nodule: Stable. Outpatient follow-up with pulmonology. ? History of ventricular tachycardia s/p ICD placement: Continue home amiodarone. DVT prophylaxis: SCDs CODE STATUS: DNR CCA, DNI Expected disposition: TBD Total clinical time spent by myself addressing the patient's medical issues, reviewing all the data, and collaborating with patient's care team: 35 minutes. Charges/Coding Visit Charges Inpatient E&M: 02116 Subs Hosp L2
[2024-01-06 11:09] LABS: Anti-Centromere B Ab <0.2 AI (0.0-0.9); Anti-Chromatin <0.2 AI (0.0-0.9); Anti-Jo <0.2 AI (0.0-0.9); Anti-Scleroderma-70 AB <0.2 AI (0.0-0.9); Anti-dsDNA Ab 1 IU/mL (0-9); RNP Ab 3.3 AI (0.0-0.9); SJOGREN'S Anti-SS-A test < 0.2 AI (0.0-0.9); SJOGREN'S Anti-SS-B test 0.3 AI (0.0-0.9); Smith Ab <0.2 AI (0.0-0.9)
[2024-01-06] MEDS: Furosemide 40 MG/4 ML Vial IV (12:38)
--- NOTE | 2024-01-06 12:41 | PCM.OP.PRO ---
Procedure Report Date of Procedure: 01/06/24 Assessment & Plan Assessment/Plan (1) SBP (spontaneous bacterial peritonitis): Procedures Radiology Radiology Access Procedures: PICC Procedure Time Out Time Out Informed consent given: Yes Consent signed: Yes Time out checklist: patient, procedure, site marked/identified, positioning of patient, supplies available and allergies confirmed Time out verified: Yes Time out date: 01/06/24 Time out time: 11:48 PICC Line Consent Screening tool completed:: Yes Consent obtained:: Yes Consent given by (patient or responsible constitution party):: patient's brother via phone Line successful (if no, document why in comments):: Yes Insertion Reason for Insertion: Penitentiary Medication Date of Insertion: 01/06/24 Ok to use: Yes Type of PICC inserted: Single Power PICC PICC Lot #: [id number] PICC Reference #: [id number] Microintroducer Used: Yes (in kit) Ultrasound/Equipment Used: Probe Cover Kit Trimmed Length (cm): 39 Insertion Length (cm): 39 Exposed Length (cm): 0 Tip Placement: Caval Atrial Junction Placement Confirmation: 3CG Insertion Vein: Right Brachial Insertion Attempts: 1 Local Anesthesia Used: Lidocaine 1% (in kit) Dressing Applied: Statlock and Tegaderm CHG Arm Measurement above site (in cm): 29 Patient Tolerated Procedure: Well Threading Difficulties: No Comments Comment: Patient identity was verified with two patient identifiers. Informed consent was obtained and time-out was completed. Hands were sanitized. The patient was positioned supine with right arm at 90 degrees. The patient's upper arm vasculature was assessed using ultrasound. Patency of the right brachial vein was confirmed and the vein was externally marked. An external measurement was obtained of 39 cm. External leads were applied to the patient's right upper chest and laterally and inferior of the umbilicus on the mid axillary line. Cap, mask, and prep gloves were donned. The underdrape was placed under the patient's arm. The site was prepped with chlorhexidine, and tourniquet was loosely applied. Prep gloves were discarded, and hands were sanitized. The sterile kit was opened with additional supplies dropped in. Sterile gown and gloves were donned, and the patient was draped. The sterile kit was assembled with needle, introducer, needless connector, and catheter lumen flushed with sterile normal saline. The marked site of insertion was anesthetized with 1% lidocaine from the kit. Patient tolerated well. The right brachial vein was then accessed using ultrasound guidance and guidewire was inserted to safety brayan. The tourniquet was released. The access needle was removed while securing the guidewire in place. The site was again anesthetized with 1% lidocaine, prior to insertion of introducer sheath and dilator. Patient tolerated the insertion well. The catheter was trimmed to a length of 39 cm. Using 3C guidance, the catheter was then inserted through the introducer sheath, slowly. There was no resistance on insertion. The catheter followed the expected course of the vessel using 3CG tracking. The introducer sheath was retracted and peeled away, incrementally, while keeping the catheter secured. Maximal p-wave, without deflection, confirming placement in the cavoatrial junction, was obtained at an insertion length of 39 cm, leaving 0 cm external. The stylet was removed. A flushed needleless connector was attached to the lumen. Aspiration of the lumen was performed to remove any air and confirm blood return. Blood return was verified and the lumen was flushed with 10 ml of sterile normal saline in a pulsatile fashion. The lumen was clamped with the last pulsed flush. Total sterile flushes used for the insertion was 6 10 ml syringes, 2 from the kit. Finally, the insertion site was cleaned with chlorhexidine, and the catheter was secured using a StatLock. The site was covered with a Tegaderm CHG Dressing and disinfecting caps were applied. Baseline arm circumference was obtained at the insertion site and measured 29 cm. The patient was provided with a patient education handout on PICC line care and verbalized understanding of infection prevention, heavy lifting restriction, maintaining mobility, and watching for any signs of infection. The primary nurse is aware that the PICC line is ready for use.
--- NOTE | 2024-01-06 13:58 | PCM.PN.ID ---
Physical Exam Narrative Awake, denies abd pain, no fever Const Constitutional Narrative: wakes to voice, some unintelligible speech General Appearance: cooperative Orientation / Consciousness: lethargic Resp normal air movement and clear to auscultation bilaterally Cardio regular rate and regular rhythm GI soft to palpation, non-tender and non-distended Skin no rashes or lesions noted ID ID: Route of nutrition/ use of supplements: [] Nutritional Intake: [] IV Site: [] Rai Catheter: [] Assessment & Plan Assessment/Plan (1) Leukocytosis: PLAN: Paracentesis shows SBP with neutrophil count of 515. Fluid cx neg so far. Repeat tap today. Bcx neg so far. Cont lui. Mental status better today, wbc has increased slightly. Will follow (2) Acute encephalopathy: (3) Abdominal ascites: QUALIFIERS: Ascites type: other type Qualified Code(s): R18.8 - Other ascites
[2024-01-06] MEDS: Lactulose 20 GM/30 ML UDC 10 GM PO ×2 (14:11→21:27)
[2024-01-06] MEDS: 0.9% Saline Lock 10 ML Syringe IV ×2 (14:12→18:05)
[2024-01-06 16:09] LABS: AFP, Tumor Marker 2.8 ng/mL (0.0-8.4); Carbohydrate AG 19-9 94 U/mL (0-35); Cytoplasmic Ab (C-ANCA) <1:20 titer (Neg:<1:20); Deamidated Gliadin IgA 7 units (0-19); Deamidated Gliadin IgG 23 units (0-19); Endomysial Antibody IgA Negative (Negative); IgG, Quant 1475 mg/dL (603-1613); Immunoglobulin A 381 mg/dL (61-437); Immunoglobulin G, Subclass 1 942 mg/dL (248-810); Immunoglobulin G, Subclass 2 253 mg/dL (130-555); Immunoglobulin G, Subclass 3 162 mg/dL (15-102); Immunoglobulin G, Subclass 4 21 mg/dL (2-96); PROEL- A/G Ratio 0.7 (0.7-1.7); PROEL- Alpha-1 Globulin 0.3 g/dL (0.0-0.4); PROEL- Alpha-2 Globulin 0.6 g/dL (0.4-1.0); PROEL- Beta Globulin 0.6 g/dL (0.7-1.3); PROEL- Gamma Globulin 1.5 g/dL (0.4-1.8); PROEL- Globulin, Total 2.9 g/dL (2.2-3.9); PROEL- TOTAL PROTEIN 4.9 g/dL (6.0-8.5); PROEL-M-Spike Not Observed g/dL (Not Observed); Perinuclear Ab (P-ANCA) <1:20 titer (Neg:<1:20); t-Transglutaminase IgA <2 U/mL (0-3)
--- NOTE | 2024-01-06 18:51 | EX.PCM.PN.GI ---
Subjective Subjective He is a lot clearer today. He still very weak and requiring oxygen. He does not know where he is and the year it is. Objective Data Objective Data Vital Signs: Vital Signs Temp Pulse Resp BP Pulse Ox O2 Del Method O2 Flow Rate 97.3 F L 98 16 97/87 H 96 Room Air 2 01/06/24 14:28 01/06/24 14:28 01/06/24 14:28 01/06/24 14:28 01/06/24 14:28 01/06/24 14:28 01/02/24 12:51 Oxygen Flow Rate (L/min) 2 Oxygen Delivery Method Room Air Weight: 154 lb 5.177 oz Body Mass Index (BMI) 19.8 Intake & Output: Intake and Output for Last 24 Hours 01/04/24 01/05/24 01/06/24 23:59 23:59 23:59 Intake Total 854.17 / 854.17 1089.70 / 1089.70 594.10 / 594.10 Output Total 675 / 675 600 / 750 350 / 350 Balance 179.17 / 179.17 489.70 / 339.70 244.10 / 244.10 Medical Nutrition Assessment Dietitian: Malnutrition Criteria Met Start: 01/01/24 11:38 Freq: Status: Active Protocol: Document 01/05/24 12:31 RMA (Rec: 01/05/24 12:31 RMA [id number]) Nutrition Malnutrition Evidence of Malnutrition Exists Yes Malnutrition (moderate): Acute Illness/Injury Evidenced By Suboptimal Energy Intake ( Moderate),Physical Changes ( Moderate) Clinical Problem Acute Disease or Injury Related Malnutrition Etiology acute on likely chronic moderate malnutrition related to inadequate energy intake Signs/Symptoms as evidenced by estimated PO intake meeting <75% of estimated energy needs > 1 week, Moderate muscle wasting/ fat loss evident per physical exam in orbital, clavicle, acromion, and temporal areas Status Active Problem Recommendation Dietitian Recommendations/Changes Continue liberalized regular diet. Consider ACUTE CARE CERTIFIED NURSING ASSISTANT evaluation d/t poor dentition, may need modified textures. Will Will continue Angel BID and add Ensure Plus High Protein 120mL 4x/day with medpass. Trend weights as available. Lab / Micro Data 01/06/24 06:20 01/06/24 06:20 Labs: Laboratory Results - last 24 hr 01/04/24 19:43: Total Protein (PEP) 4.9 L, Albumin (PEP) 2.0 L, Globulin (PEP) 2.9, Albumin/Globulin (PEP) 0.7, Sfygp-8-Ilfhcdods 0.3, Iphcu-1-Bzwdkmpve 0.6, Beta Globulins 0.6 L, Gamma Globulins 1.5, M-Jonathan Not Observed, PEP Note Comment, PEP Interpretation Comment, Tumor Marker AFP 2.8, CA 19-9 Antigen 94 H, IgG Total 1475, IgG1 942 H, IgG2 253, IgG3 162 H, IgG4 21, IgA 381, c-ANCA Antibody <1:20, Atypical p-ANCA <1:20, p-ANCA Antibody <1:20, DORIS-1 Antibody <0.2, SS-A/Ro IgG Antibody < 0.2, SS-B/La IgG Antibody 0.3, Sm (Mcbride) Antibody <0.2, PROJECT ACCOUNT MANAGER Antibody 3.3 H, Scl-70 Scleroderma Ab <0.2, Double Strand DNA Ab 1, Centromere B Antibody <0.2, Endomysial IgA Ab Negative, Tiss Transglutamin IgG 12 H, Tiss Transglutamin IgA <2, Anti-Gliadin IgG Ab 23 H, Anti-Gliadin IgA Ab 7 01/06/24 06:20: WBC 35.3 H*, RBC 4.07 L, Hgb 12.8 L, Hct 37.1 L, MCV 91.2, MCH 31.4, MCHC 34.5, RDW Std Deviation 58.1 H, RDW Coeff of Yoli 19.1 H, Plt Count 432, MPV 10.7, Immature Gran % (Auto) 2.100 H, Neut % (Auto) 82.8 H, Lymph % (Auto) 6.5 L, Bamberg % (Auto) 8.1, Eos % (Auto) 0.2, Baso % (Auto) 0.3, Absolute Neuts (auto) 29.2 H, Absolute Lymphs (auto) 2.30, Nucleated RBC % 0, Differential Comment COMMENT, Diff Path Review March, Sodium 135 L, Potassium 3.8, Chloride 109 H, Carbon Dioxide 21.0, Anion Gap 5, BUN 58 H, Creatinine 1.11, Estim Creat Clear Calc 63.94, Est GFR (MDRD) Af Amer 85, Est GFR (MDRD) Non-Af 70, BUN/Creatinine Ratio 52.3 H, Glucose 109 H, Calcium 8.6, Total Bilirubin 0.90, AST 96 H, ALT 33, Alkaline Phosphatase 272 H, Total Protein 5.9 L, Albumin 1.6 L, Globulin 4.3 H, Albumin/Globulin Ratio 0.4 L Micro: Microbiology 01/01/24 10:50 Fluid - Ascites Gram Stain - Final 01/01/24 10:50 Fluid - Ascites Body Fluid Culture - Final Culture exhibits no growth. 01/01/24 10:50 Fluid - Ascites Anaerobic Culture - Final No growth in 5 days. 12/31/23 13:35 Blood Culture (Wb) - Left Hand Blood Culture - Final No growth in 5 days. 12/31/23 13:17 Blood Culture (Wb) - Anticubital Right Blood Culture - Final No growth in 5 days. 12/31/23 13:35 Mucosa - Nose SARS-CoV-2, Influenza & RSV (PCR) - Final Rhythm Strip Rhythm Strip: Sinus Tach Rate: 103 Ectopy: None Physical Exam Narrative Awake, denies abd pain, no fever Const Constitutional Narrative: wakes to voice, some unintelligible speech General Appearance: cooperative Orientation / Consciousness: lethargic Resp normal air movement and clear to auscultation bilaterally Cardio regular rate and regular rhythm GI soft to palpation, non-tender and non-distended Skin no rashes or lesions noted Assessment & Plan Assessment/Plan (1) Multifocal pneumonia: (2) Leukocytosis: (3) Acute encephalopathy: PLAN: Plan 68-year-old gentleman was brought to ED by paramedics for a complaint of altered mental status from long-term with generalized weakness, not eating or drinking much. 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 Patient also complained of left lower quadrant abdominal pain. Cover for SBP. No fever or vomiting. 1 Acute distal descending and sigmoid colitis: Mild left lower quadrant tenderness. IV antibiotic switched to p.o Cipro and Flagyl. 2. Hypertension?continue routine home medications heart rate and blood pressure controlled. He would likely need to be switched to nadolol. 3. Ascites- with hepatic hydrothorax. He needs paracentesis. Check for SBP. He will likely need a VATS procedure in the future to prevent recurrent hepatic hydrothorax 4. 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 Decubitus ulcer of the coccyx region, right heel: Recommend Wound care nurse consult. 6. 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 Check for chronic hepatitis B chronic hepatitis C, hemochromatosis, autoimmune hepatitis. His current MELD is low at 18. He is a child Becker class C at this time. He is not a candidate for TIPS procedure due to history of recurrent auto mental status. TIPS would make his auto mental status worse. Continue lactulose 30 cc p.o. every 6 hours and started Xifaxan 550 mg p.o. 3 times daily. Check B12, folate, start thiamine 100 mg a day. Clinical Impression(s) from Imaging Studies Chest X-Ray 12/22/23 17:57 IMPRESSION: Mildly displaced fractures of the eighth and ninth ribs..Possible tiny left pleural effusion Abdomen/Pelvis CT 12/22/23 18:24 IMPRESSION: Mildly prominent liver and spleen Massive abdominopelvic ascites possibly due to hepatocellular disease. Multifocal thickening of the chandler of the distal descending and sigmoid colon possibly representing colitis however clinical correlation is recommended. There is relatively hypoattenuated appearance to the head of the pancreas possibly representing focal pancreatitis Other findings as above Brain CT 12/22/23 18:24 IMPRESSION: Atrophy and periventricular white matter ischemic change. No acute bleed. If concern for acute infarct MRI recommended. Electronically Signed: Zhao Mcallister MD at 19:00 EST Reading Location ID and State: [facility] / [place] Tel , Service support , 01/01/24- I cannot explain why his mental status is awaiting his right now. I am suspecting that recently he had pancreatitis and possibly resulted in ARDS and subsequent renal failure and bilateral pleural effusions. In that setting he may have developed community-acquired pneumonia since being out of the hospital. His platelet count is not consistent with cirrhosis even if it is an acute phase reactant in the setting of an infection from pneumonia. His paracentesis fluid did not look like SBP. 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 Recommend diuresis. Patient continue antibiotics. He should undergo an upper endoscopy to evaluate his upper GI tract to see if he has any signs of varices or portal hypertension. N.p.o. past midnight for possible upper endoscopy tomorrow. 01/04/24- The differential diagnosis for this elevated white blood cell count could be secondary to neutrophilic leukocytosis or leukemoid reaction. This could be because of underlying and nonresolving pancreatitis. The differential diagnosis for the increased fluid in his abdomen could be secondary to underlying nephrotic syndrome, hypoalbuminemia, pancreatitis, malnutrition less likely peritonitis. He would to get repeat paracentesis and his SAG gradient would have to be calculated with also checking a lipase and the fluid, amylase and fluid, protein electrophoresis of the fluid to make sure there is no underlying lymphoma, myeloma or amyloidosis in the fluid. 01/06/24-his white blood cell count is still increasing. Top of my differential diagnosis is still neutrophilic leukocytosis in the setting of acute idiopathic pancreatitis. Autoimmune workup for autoimmune pancreatitis is pending. He has a high number of neutrophils in his ascitic fluid. On antibiotic therapy as per ID. Continue conservative therapy. 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 The dilation in the colon and the small bowel also can be secondary to small bacterial overgrowth. His imaging says that he does not have cirrhosis. The only way to confirm cirrhosis would be a liver biopsy after paracentesis. Recommendation: -Check IgG4 -Check J CARLOS -Check ANCA antibodies -Check ferritin, iron, TIBC and transferrin -Check LDH -Check CEA, CA 19-9 -Check urine for protein, check SPEP and UPEP -Check cardiac echo to see if the fluid is coming from alcoholic cardiomyopathy with low ejection fraction -Azithromycin 500 mg IV daily for small bowel dilation 01/05/24-Patient's neutrophil count in the ascitic fluid was very high at 515. But the culture has been negative. Appreciate infectious disease help with management of antibiotics. His CRP is still very elevated. I am awaiting further workup to see if he has any signs of autoimmune disease that is driving his inflammatory reaction. Also waiting for protein electrophoresis to see if he is secreting any abnormal protein and may be contributing to his ascites. Awaiting on repeat paracentesis to recalculate his SAG gradient. Patients with culture negative neutrocytic ascites have a mortality rate comparable to spontaneous bacterial peritonitis. aspartate aminotransferase, alanine aminotransferase , acute kidney injury , model for end stage liver disease and septic shock are the independent predictors of 50?days in-hospital mortality in culture negative neutrocytic ascites. Guarded prognosis Charges/Coding Visit Charges Inpatient E&M: 01853 Subs Hosp L3
--- NOTE | 2024-01-06 19:23 | CPS ---
RA 93%
[2024-01-06] MEDS: Heparin Injection (Vial) 5,000 UNIT/ML VIAL 5000 UNIT SC (21:27)
[2024-01-06] MEDS: Pantoprazole Sodium 40 MG Tablet PO (21:30)
[2024-01-07] VITALS (11 sets, daily range): BP systolic 104–123; BP diastolic 67–77; PULSE 97–106; RESP 16–18; TEMP 36.3–36.7; O2SAT 92–96
[2024-01-07] MEDS: Meropenem 1 GM in 0.9% Normal Saline (100mL MB+) 100 ML IV ×3 (05:44→22:21)
[2024-01-07] MEDS: Ipratropium/Albuterol Sulfate 3 ML AMPUL.NEB INHALATION ×3 (06:53→19:15)
[2024-01-07 08:08] LABS: Absolute Lymphocyte Count 2.63 X10^3/uL (0.83-4.51); Absolute Neutrophil Count 25.5 X10^3/uL (2.0-7.7); Basophil% 0.3 % (0-1); Eosinophil# 0.08 X10^3/uL; Eosinophils% 0.3 % (0-5); Hemoglobin 12.1 g/dL (13.0-16.5); Lymphocyte # 2.63 X10^3/ul (0.83-4.51); Lymphocyte % 8.4 % (19-41); Mean Corp Hgb Conc 34.6 g/dL (32-36); Mean Corpuscular Hgb 31.1 pg (27.0-32.0); Mean Platelet Vol. 10.9 fl (6.2-12.0); Monocyte# 2.47 X10^3/uL; Monocyte% 7.9 % (0-10); NRBC Flagged by Analyzer 0 % (0-5); Neutrophil # 25.54 X10^3/uL (2.7-7.7); Neutrophil % 81.3 % (47-70); POSITIVE COUNT YES; POSITIVE DIFFERENTIAL YES; Platelet Count 471 K/mm3 (150-450); RBC Distribution Width CV 19.4 % (11.6-14.6); Red Blood Count 3.89 M/mm3 (4.6-6.2)
[2024-01-07 09:09] LABS: Differential Indicated SCAN CRITERIA MET; White Blood Count 31.4 K/mm3 (4.4-11.0)
[2024-01-07 09:12] LABS: Pathologist Review Reviewed
[2024-01-07 09:20] LABS: Pathologist Review Reviewed
[2024-01-07 09:36] LABS: ALB/GLOB Ratio 0.4 RATIO (0.9-2.4); AST(SGOT) 108 U/L (15-37); Alanine Aminotransfer ALT/SGPT 32 U/L (16-61); Albumin, Serum 1.6 g/dL (3.2-5.0); Alkaline Phosphatase 266 U/L (45-117); Anion Gap 8 (5-15); BUN 59 mg/dL (7-18); BUN/Creat Ratio 54.6 RATIO (10-20); Calcium,Total 8.6 mg/dL (8.5-10.1); Chloride 108 mmol/L (98-107); Creatinine, Serum 1.08 mg/dL (0.70-1.30); EST Glomerular Filtration Rate 72 mL/min (>60); Est Glom Filt Rate - Afr Amer 88 mL/min (>60); Estimated Creatinine Clearance 65.72 ml/min; Globulin 3.9 g/dL (2.2-4.2); Glucose 110 mg/dL (74-106); Potassium 3.2 mmol/L (3.5-5.1); Protein, Total 5.5 g/dL (6.4-8.2); Sodium Level 138 mmol/L (136-145)
[2024-01-07] MEDS: Furosemide 40 MG Tablet PO (11:06)
[2024-01-07] MEDS: Pantoprazole Sodium 40 MG Tablet PO ×2 (11:07→22:21)
[2024-01-07] MEDS: Amiodarone 200 MG Tablet PO (11:07)
[2024-01-07] MEDS: Ensure Plus High Protein 120 ML LIQUID PO ×3 (11:07→22:23)
[2024-01-07] MEDS: Juven (unflavored) Packet 1 PACKET PO ×2 (11:07→22:21)
[2024-01-07] MEDS: Lidocaine 2% (20 ml mdv) 20 ML Vial INFILT (12:05)
--- NOTE | 2024-01-07 12:10 | FLU_PTH ---
PATHOLOGY RESULTS PATIENT: FRANCIS MORTON LOC: MS3 U#:[id number] AGE/SX: 68/M ROOM: [facility] RE12/31/[address]: Dr. Farhan Salvador DO : 1955 BED: 1 DIS: 01/10/2024 SPEC #: [id number] RECD: 01/07/24 12:24 STATUS: LOREN REQ #: [id number] ANICETO: 01/07/24 12:[address]: Farhan Salvador DEPT: CYTOLOGY RECD BY: Kate Martin ENTERED: 01/07/24 13:35 SP TYPE: Fluid OTHR DR: MD Dr. Aidan Zhong DO Dr. Nana Yaa Koram, MD Dr. Robert Leininger, MD Tissues: PARACENTESIS FLUID Procedures: Special Stain Group II Surgery Specimen Level IV Cytospin Fluid HEADER OPERATION: Ultrasound-guided paracentesis PRE-OP DIAGNOSIS: Ascites, post SBP treatment TISSUE SUBMITTED: Paracentesis fluid for cytology DIAGNOSIS CYTOLOGY Paracentesis fluid for cytology (cytospin and cell block): Negative for malignant cells. Acute inflammation. See comment. GABRIELE:mary 01/08/2024 COMMENT Clinical correlation and appropriate follow up are necessary. CYTOLOGY STUDY Slides are reviewed. CYTOLOGY GROSS Received is 70 ml of dark red cloudy fluid labeled with the patient's name and and designated per the requisition as paracentesis. Submitted for cytology preparation including cell block. / mary 01/07/2024 TC:2 CPT: 94964, 06494
[2024-01-07 12:12] LABS: Vitamin B12 931 pg/mL (211-911)
--- NOTE | 2024-01-07 12:41 | PRO.PCM_ITS ---
Procedure Report Date of Procedure: 01/07/24 Assessment & Plan Assessment/Plan (1) SBP (spontaneous bacterial peritonitis): PLAN: PROCEDURE: Ultrasound guided paracentesis ORDERING PROVIDER: Dr. Salvador INDICATION: Male, 68 years old. Diagnostic post SBP treatment. PROVIDER: TIAGO Phillips TECHNIQUE: The risks, benefits, and alternatives to the procedure were explained to the patient and patient's brother via phone. The specific risks of bleeding, infection, and damage to bowel were detailed and accepted. Witnessed informed consent was obtained via phone from brotherDonnell. The abdomen was ultrasonographically surveyed. An appropriate pocket of fluid was identified in the right lower quadrant. The skin was prepped with chlorhexidine and sterile field established. 2% lidocaine was used for local anesthetic. Using ultrasound guidance, the peritoneal cavity was accessed with a 5-Croatian paracentesis needle/catheter system. The trocar was removed. A total of 2400 ml of dark werner colored fluid was removed from the peritoneal cavity. 100 mL of this fluid was sent to laboratory for analysis. The catheter was removed and a sterile dressing was applied. The procedure was well tolerated. IMPRESSION: Successful ultrasound-guided paracentesis with right lower quadrant access site. Procedures Radiology Radiology US Procedures: [id number] Paracentesis
[2024-01-07 13:10] LABS: Body Fluid Mononuclear WBC % 12.5 %; Body Fluid Polynuclear WBC % 87.5 %; Body Fluid Total Cells Counted 3.222 10^3/ul; Red Cell Count/Body Fluid 0.023 10^6/ul
--- NOTE | 2024-01-07 13:21 | PN.HOSP_ITS ---
Reason for Visit Reason for Visit: Diagnoses Elevated white blood cell count, unspecified (12/31/23) Encephalopathy, unspecified (12/31/23) Chronic systolic (congestive) heart failure (12/31/23) Pneumonia, unspecified organism (12/31/23) Noninfective gastroenteritis and colitis, unspecified (12/31/23) Spontaneous bacterial peritonitis (12/31/23) Hepatic failure, unspecified without coma (12/31/23) Unspecified cirrhosis of liver (12/31/23) Other ascites (12/31/23) Subjective Subjective No acute events overnight. Patient seen at bedside this morning. Was about to work with physical therapy when I saw the patient. Mental status similar to previous days, alert but not fully oriented and generally fatigued and chronically ill-appearing. Denied any acute pain or discomfort today. No other acute concerns. Objective Data Objective Data Vital Signs: Vital Signs Temp Pulse Resp BP Pulse Ox O2 Del Method O2 Flow Rate 98.1 F 97 16 104/69 95 Room Air 2 01/07/24 12:51 01/07/24 13:17 01/07/24 13:17 01/07/24 12:51 01/07/24 12:51 01/07/24 12:51 01/02/24 12:51 Oxygen Flow Rate (L/min) 2 Oxygen Delivery Method Room Air Weight: 70 kg Body Mass Index (BMI) 19.8 Intake & Output: Intake and Output for Last 24 Hours 01/05/24 01/06/24 01/07/24 23:59 23:59 23:59 Intake Total 1089.70 / 1089.70 694.10 / 694.10 290 / 290 Output Total 600 / 750 550 / 550 2520 / 2520 Balance 489.70 / 339.70 144.10 / 144.10 -2230 / -2230 Medical Nutrition Assessment Dietitian: Malnutrition Criteria Met Start: 01/01/24 11:38 Freq: Status: Active Protocol: Document 01/05/24 12:31 RMA (Rec: 01/05/24 12:31 RMA [id number]) Nutrition Malnutrition Evidence of Malnutrition Exists Yes Malnutrition (moderate): Acute Illness/Injury Evidenced By Suboptimal Energy Intake ( Moderate),Physical Changes ( Moderate) Clinical Problem Acute Disease or Injury Related Malnutrition Etiology acute on likely chronic moderate malnutrition related to inadequate energy intake Signs/Symptoms as evidenced by estimated PO intake meeting <75% of estimated energy needs > 1 week, Moderate muscle wasting/ fat loss evident per physical exam in orbital, clavicle, acromion, and temporal areas Status Active Problem Recommendation Dietitian Recommendations/Changes Continue liberalized regular diet. Consider VICE PRESIDENT CORPORATE COMMUNICATIONS evaluation d/t poor dentition, may need modified textures. Will Will continue Angel BID and add Ensure Plus High Protein 120mL 4x/day with medpass. Trend weights as available. Lab / Micro Data 01/07/24 06:55 01/07/24 06:55 Labs: Laboratory Results - last 24 hr 01/04/24 19:43: Total Protein (PEP) 4.9 L, Albumin (PEP) 2.0 L, Globulin (PEP) 2.9, Albumin/Globulin (PEP) 0.7, Mgfrn-0-Pqixvhtlm 0.3, Uoicm-4-Oqipekwev 0.6, Beta Globulins 0.6 L, Gamma Globulins 1.5, M-Jonathan Not Observed, PEP Note Comment, PEP Interpretation Comment, Tumor Marker AFP 2.8, CA 19-9 Antigen 94 H, IgG Total 1475, IgG1 942 H, IgG2 253, IgG3 162 H, IgG4 21, IgA 381, c-ANCA Antibody <1:20, Atypical p-ANCA <1:20, p-ANCA Antibody <1:20, Endomysial IgA Ab Negative, Tiss Transglutamin IgG 12 H, Tiss Transglutamin IgA <2, Anti-Gliadin IgG Ab 23 H, Anti-Gliadin IgA Ab 7 01/05/24 06:10: Diff Path Review Reviewed 01/06/24 06:20: Diff Path Review Reviewed 01/07/24 06:55: WBC 31.4 H*, RBC 3.89 L, Hgb 12.1 L, Hct 35.0 L, MCV 90.0, MCH 31.1, MCHC 34.6, RDW Std Deviation 59.0 H, RDW Coeff of Yoli 19.4 H, Plt Count 471 H, MPV 10.9, Immature Gran % (Auto) 1.800 H, Neut % (Auto) 81.3 H, Lymph % (Auto) 8.4 L, Ness % (Auto) 7.9, Eos % (Auto) 0.3, Baso % (Auto) 0.3, Absolute Neuts (auto) 25.5 H, Absolute Lymphs (auto) 2.63, Nucleated RBC % 0, Diff Path Review March, Sodium 138, Potassium 3.2 L, Chloride 108 H, Carbon Dioxide 22.0, Anion Gap 8, BUN 59 H, Creatinine 1.08, Estim Creat Clear Calc 65.72, Est GFR (MDRD) Af Amer 88, Est GFR (MDRD) Non-Af 72, BUN/Creatinine Ratio 54.6 H, Glucose 110 H, Calcium 8.6, Total Bilirubin 1.00, AST 108 H, ALT 32, Alkaline Phosphatase 266 H, Total Protein 5.5 L, Albumin 1.6 L, Globulin 3.9, Albumin/Globulin Ratio 0.4 L, Folate 2.20 L 01/07/24 11:20: Vitamin B12 931 H 01/07/24 12:10: Fluid WBC 3.210, Fluid RBC 0.023, Fluid Tot Cell Count 3.222, Fld Polynuclear WBCs # 2.810, Fld Polynuclear WBCs % 87.5, Fluid Mononuclear WBCs 0.400, Fld Mononuclear WBCs % 12.5 Micro: Microbiology 01/01/24 10:50 Fluid - Ascites Gram Stain - Final 01/01/24 10:50 Fluid - Ascites Body Fluid Culture - Final Culture exhibits no growth. 01/01/24 10:50 Fluid - Ascites Anaerobic Culture - Final No growth in 5 days. 12/31/23 13:35 Blood Culture (Wb) - Left Hand Blood Culture - Final No growth in 5 days. 12/31/23 13:17 Blood Culture (Wb) - Anticubital Right Blood Culture - Final No growth in 5 days. 12/31/23 13:35 Mucosa - Nose SARS-CoV-2, Influenza & RSV (PCR) - Final Rhythm Strip Rhythm Strip: Sinus Tach Rate: 103 Ectopy: None Physical Exam Const alert, no apparent distress and average body habitus Constitutional Narrative: Elderly male, chronically ill-appearing, fatigued, making appropriate eye contact but has weak voice and is difficult to understand, otherwise laying comfortably in bed and in no acute distress. General Appearance: cooperative and comfortable HEENT normocephalic, head/scalp atraumatic, hearing grossly normal bilaterally and nasal mucous membranes and turbinates normal Eyes PERRL, EOMs intact bilaterally and conjunctivae normal Neck full ROM Chest inspection of chest normal Resp normal respiratory effort, normal air movement, no use of accessory muscles and clear to auscultation bilaterally Cardio regular rate, regular rhythm, no murmurs and peripheral pulses 2+ throughout GI GI Narrative: Mildly distended, soft, nontender to palpation. Back/Spine normal ROM Extremity normal to inspection, full ROM and no pedal edema Skin no rashes or lesions noted Neuro no focal motor deficits and no sensory deficits noted Assessment & Plan Assessment/Plan (1) Acute encephalopathy: (2) Decompensation of cirrhosis of liver: (3) SBP (spontaneous bacterial peritonitis): (4) Chronic systolic congestive heart failure: PLAN: Plan Patient is a 68-year-old male who presented to [facility] ED on 12/31/2023 with lethargy and altered mental status. 1. Acute metabolic encephalopathy, improving ? Unclear etiology. Has known history of mild cognitive dysfunction suspected secondary to history of alcohol use disorder. Current altered mentation could be secondary to Warnicke's encephalopathy. Could also be secondary to infection as noted below. ? Mildly improved from admission, stable. Continue treatment as below. 2. Decompensated alcoholic cirrhosis with ascites, spontaneous bacterial peritonitis, persistent leukocytosis ? GI and ID following. S/p paracentesis on with 2900 mL of dark werner- colored fluid removed. Showed SBP with neutrophil count of 515. Fluid cultures and blood cultures negative thus far. ? Suspect that persistent leukocytosis may be secondary to decompensated alcoholic cirrhosis. ? Repeat paracentesis on 01/06 with radiology, 2400 mL of dark werner-colored fluid removed. Fluid studies pending. ? De-escalated from IV Lasix 40 mg daily to p.o. Lasix 40 mg daily on 01/05 as creatinine was slowly worsening. Continue lactulose. Monitor kidney function daily. ? Continue meropenem for now per ID recs. 3. Acute distal descending and sigmoid colitis ? Recent CT abdomen/pelvis on 12/22 showed multifocal thickening of chandler of distal descending and sigmoid colon possibly representing colitis. ? GI following as above. Recommendation per GI was for p.o. Cipro and Flagyl, but will continue meropenem for now as noted above. 4. Gastritis and gastric ulcers ? EGD on 01/01 showed acute gastritis with oozing gastric ulcers that were treated with heater probe. ? Hemoglobin has remained stable between 12-13 since admission. ? Continue p.o. PPI twice daily. 5. Worsening HFrEF, history of CAD ? Known history of HFrEF, last echo in 05/2022 showed EF 35%, stage I diastolic dysfunction, mildly dilated LV. ? Noted to have moderate-sized bilateral pleural effusions on chest imaging on admission. ? Echo showed EF 20%, stage I diastolic dysfunction, severe global hypokinesis of LV. ? Discussed with on-call cardiology, no active intervention recommended for drop in EF. ? Continue home Toprol and Plavix. Continue p.o. Lasix as noted above. 6. Debility ? Presented from senior care facility. PT/OT/case management following. Likely back to nursing facility on discharge. Chronic medical conditions: ? Hypertension, hyperlipidemia: Continue home metoprolol and statin. ? History of alcohol use disorder with resultant cognitive dysfunction: Continue thiamine. ? History of pulmonary nodule: Stable. Outpatient follow-up with pulmonology. ? History of ventricular tachycardia s/p ICD placement: Continue home amiodarone. DVT prophylaxis: SCDs CODE STATUS: DNR CCA, DNI Expected disposition: TBD Total clinical time spent by myself addressing the patient's medical issues, reviewing all the data, and collaborating with patient's care team: 35 minutes. Charges/Coding Visit Charges Inpatient E&M: 06590 Subs Hosp L2
[2024-01-07 13:26] LABS: Appearance/Body Fluid CLOUDY; Auto B Fluid Analyzer BKGD Ct COUNTS W/IN LIMITS (W/IN LIMITS); Source- Body Fluid ASCITES FLUID
[2024-01-07 13:27] LABS: Color/Body Fluid SLIGHTLY PINK
[2024-01-07 13:47] LABS: Glucose, Body Fluid 97 mg/dL (40-70)
[2024-01-07 14:43] LABS: Lymphocytes 11 %; Monocytes 3 %; Neutrophil (Segs) 78 %; Other Cell Type/BF 8 %
[2024-01-07] MEDS: Menthol/Lanolin/Calamine/Znox 113 GM Tube 1 APPLIC TOPICAL ×2 (15:21→22:22)
[2024-01-07] MEDS: 0.9% Saline Lock 10 ML Syringe IV (15:23)
[2024-01-07] MEDS: Potassium Chloride Oral Tablet 20 MEQ 40 MEQ PO (16:47)
--- NOTE | 2024-01-07 17:24 | PCM.HOSP.N ---
Hospitalist Note Good conversation with patient's brother Donnell over the phone this afternoon. Donnell lives in the area and had been in to see the patient this morning. There was first time he had seen the patient during his hospitalization. Donnell has also intermittently been seeing him while he was at the [facility] prior to this admission. Donnell noted that the patient looked considerably weaker and more confused from his baseline today compared to the last time he saw him about 1 to 2 weeks ago. Donnell noted that the patient had been a beer drinker for many years but then in recent years, he had began drinking hard liquor and increasing quantities. Donnell did note that the patient quit drinking alcohol a few months prior to his cirrhosis diagnosis. However, Donnell noted that the patient was already fairly weak at that time and had lost a considerable amount of weight. I explained to Donnell that we have been treating patient for SBP in the setting of decompensated alcoholic cirrhosis. Patient has now had 2 paracentesis procedures with 2.4 to 2.9 L removed each time. Second paracentesis was done this afternoon to evaluate for resolution of SBP, fluid studies were pending at that time. Told Donnell that we had been treating the patient for SBP with broad-spectrum antibiotics for the last 6 days. Unfortunately, patient has continued to remain fairly confused during that time with minimal improvement. Patient was already very weak and essentially nonambulatory prior to this admission, but he was able to carry on a fairly normal conversation per the brother. Patient has always had a bit of a softer voice with some mumbling and that has continued since the patient is been here. However, Donnell has noticed a significant change in the patient's general functional status and cognition and in general is very concerned about the patient from medical standpoint. Donnell is the patient's official HCPOA. I discussed with Donnell that given the patient's significant medical issues as noted above, we feel that he has a poor prognosis moving forward. Donnell agreed and noted that the patient currently has very poor quality of life and is not at all the same brother that he once knew. Donnell states that the patient was a great athlete in his younger days and was generally in good physical shape for many years. I broached the subject of considering palliative care/hospice services for the patient and Donnell was agreeable to discussing these options for the patient. He particularly was interested in either an inpatient hospice unit or hospice care at nursing facility for the patient if possible. Hospice consult placed.
--- NOTE | 2024-01-07 19:25 | PN.GI_ITS ---
Subjective Subjective His white blood count is still significantly elevated. It is still persistently neutrophilic. He still has clouded auto mental status and is very weak. Objective Data Objective Data Vital Signs: Vital Signs Temp Pulse Resp BP Pulse Ox O2 Del Method O2 Flow Rate 98.1 F 97 16 104/69 95 Room Air 2 01/07/24 12:51 01/07/24 13:17 01/07/24 13:17 01/07/24 12:51 01/07/24 12:51 01/07/24 15:15 01/02/24 12:51 Oxygen Flow Rate (L/min) 2 Oxygen Delivery Method Room Air Weight: 154 lb 5.177 oz Body Mass Index (BMI) 19.8 Intake & Output: Intake and Output for Last 24 Hours 01/05/24 01/06/24 01/07/24 23:59 23:59 23:59 Intake Total 1089.70 / 1089.70 694.10 / 694.10 290 / 290 Output Total 600 / 750 550 / 550 2646 / 2646 Balance 489.70 / 339.70 144.10 / 144.10 -2356 / -2356 Medical Nutrition Assessment Dietitian: Malnutrition Criteria Met Start: 01/01/24 11:38 Freq: Status: Active Protocol: Document 01/05/24 12:31 RMA (Rec: 01/05/24 12:31 RMA [id number]) Nutrition Malnutrition Evidence of Malnutrition Exists Yes Malnutrition (moderate): Acute Illness/Injury Evidenced By Suboptimal Energy Intake ( Moderate),Physical Changes ( Moderate) Clinical Problem Acute Disease or Injury Related Malnutrition Etiology acute on likely chronic moderate malnutrition related to inadequate energy intake Signs/Symptoms as evidenced by estimated PO intake meeting <75% of estimated energy needs > 1 week, Moderate muscle wasting/ fat loss evident per physical exam in orbital, clavicle, acromion, and temporal areas Status Active Problem Recommendation Dietitian Recommendations/Changes Continue liberalized regular diet. 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 Will Will continue Angel BID and add Ensure Plus High Protein 120mL 4x/day with medpass. Trend weights as available. Lab / Micro Data 01/07/24 06:55 01/07/24 06:55 Labs: Laboratory Results - last 24 hr 01/05/24 06:10: Diff Path Review Reviewed 01/06/24 06:20: Diff Path Review Reviewed 01/07/24 06:55: WBC 31.4 H*, RBC 3.89 L, Hgb 12.1 L, Hct 35.0 L, MCV 90.0, MCH 31.1, MCHC 34.6, RDW Std Deviation 59.0 H, RDW Coeff of Yoli 19.4 H, Plt Count 471 H, MPV 10.9, Immature Gran % (Auto) 1.800 H, Neut % (Auto) 81.3 H, Lymph % (Auto) 8.4 L, [place] % (Auto) 7.9, Eos % (Auto) 0.3, Baso % (Auto) 0.3, Absolute Neuts (auto) 25.5 H, Absolute Lymphs (auto) 2.63, Nucleated RBC % 0, Diff Path Review March, Sodium 138, Potassium 3.2 L, Chloride 108 H, Carbon Dioxide 22.0, Anion Gap 8, BUN 59 H, Creatinine 1.08, Estim Creat Clear Calc 65.72, Est GFR (MDRD) Af Amer 88, Est GFR (MDRD) Non-Af 72, BUN/Creatinine Ratio 54.6 H, G lucose 110 H, Calcium 8.6, Total Bilirubin 1.00, AST 108 H, ALT 32, Alkaline Phosphatase 266 H, Total Protein 5.5 L, Albumin 1.6 L, Globulin 3.9, Albumin/Globulin Ratio 0.4 L, Folate 2.20 L 01/07/24 11:20: Vitamin B12 931 H 01/07/24 12:10: Fluid Source ASCITES FLUID, Fluid Color SLIGHTLY PINK, Fluid Appearance CLOUDY, Fluid WBC 3.210, Fluid RBC 0.023, Fluid Tot Cell Count 3.222, Fld Polynuclear WBCs # 2.810, Fld Polynuclear WBCs % 87.5, Fluid Mononuclear WBCs 0.400, Fld Mononuclear WBCs % 12.5, Fluid Neutrophils 78, Fluid Lymphocytes 11, Fluid Monocytes 3, Fluid Other Cells 8, Fl Pathologist Comment May follow, Fluid Glucose 97 H, Fluid Comment 2 SEE COMMENT Micro: Microbiology 01/01/24 10:50 Fluid - Ascites Gram Stain - Final 01/01/24 10:50 Fluid - Ascites Body Fluid Culture - Final Culture exhibits no growth. 01/01/24 10:50 Fluid - Ascites Anaerobic Culture - Final No growth in 5 days. 12/31/23 13:35 Blood Culture (Wb) - Left Hand Blood Culture - Final No growth in 5 days. 12/31/23 13:17 Blood Culture (Wb) - Anticubital Right Blood Culture - Final No growth in 5 days. 12/31/23 13:35 Mucosa - Nose SARS-CoV-2, Influenza & RSV (PCR) - Final Rhythm Strip Rhythm Strip: Sinus Tach Rate: 103 Ectopy: None Physical Exam Narrative Awake, denies abd pain, no fever Const Constitutional Narrative: wakes to voice, some unintelligible speech General Appearance: cooperative Orientation / Consciousness: lethargic Resp normal air movement and clear to auscultation bilaterally Cardio regular rate and regular rhythm GI soft to palpation, non-tender and non-distended Skin no rashes or lesions noted Assessment & Plan Assessment/Plan (1) Multifocal pneumonia: (2) Leukocytosis: (3) Acute encephalopathy: PLAN: Plan 68-year-old gentleman was brought to ED by paramedics for a complaint of altered mental status from shelter with generalized weakness, not eating or drinking much. 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 Patient also complained of left lower quadrant abdominal pain. Cover for SBP. No fever or vomiting. 1 Acute distal descending and sigmoid colitis: Mild left lower quadrant tenderness. IV antibiotic switched to p.o Cipro and Flagyl. 2. Hypertension?continue routine home medications heart rate and blood pressure controlled. He would likely need to be switched to nadolol. 3. Ascites- with hepatic hydrothorax. He needs paracentesis. Check for SBP. He will likely need a VATS procedure in the future to prevent recurrent hepatic hydrothorax 4. History of cognitive dysfunction secondary to alcohol abuse and alcohol-re lated weakness/neuropathy?patient is presumably at his baseline but is poor historian at best at this time 5. Decubitus ulcer of the coccyx region, right heel: Recommend Wound care nurse consult. 6. 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 Check for chronic hepatitis B chronic hepatitis C, hemochromatosis, autoimmune hepatitis. His current MELD is low at 18. He is a child Becker class C at this time. He is not a candidate for TIPS procedure due to history of recurrent auto mental status. TIPS would make his auto mental status worse. Continue lactulose 30 cc p.o. every 6 hours and started Xifaxan 550 mg p.o. 3 times daily. Check B12, folate, start thiamine 100 mg a day. Clinical Impression(s) from Imaging Studies Chest X-Ray 12/22/23 17:57 IMPRESSION: Mildly displaced fractures of the eighth and ninth ribs..Possible tiny left pleural effusion Abdomen/Pelvis CT 12/22/23 18:24 IMPRESSION: Mildly prominent liver and spleen Massive abdominopelvic ascites possibly due to hepatocellular disease. Multifocal thickening of the chandler of the distal descending and sigmoid colon possibly representing colitis however clinical correlation is recommended. There is relatively hypoattenuated appearance to the head of the pancreas possibly representing focal pancreatitis Other findings as above Brain CT 12/22/23 18:24 IMPRESSION: Atrophy and periventricular white matter ischemic change. No acute bleed. If concern for acute infarct MRI recommended. Electronically Signed: Zhao Mcallister MD at 19:00 EST Reading Location ID and State: [facility] / [place] Tel , Service support , 01/01/24- I cannot explain why his mental status is awaiting his right now. I am suspecting that recently he had pancreatitis and possibly resulted in ARDS and subsequent renal failure and bilateral pleural effusions. In that setting he may have developed community-acquired pneumonia since being out of the hospital. His platelet count is not consistent with cirrhosis even if it is an acute phase reactant in the setting of an infection from pneumonia. His paracentesis fluid did not look like SBP. 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 Recommend diuresis. Patient continue antibiotics. He should undergo an upper endoscopy to evaluate his upper GI tract to see if he has any signs of varices or portal hypertension. N.p.o. past midnight for possible upper endoscopy tomorrow. 01/04/24- The differential diagnosis for this elevated white blood cell count could be secondary to neutrophilic leukocytosis or leukemoid reaction. This could be because of underlying and nonresolving pancreatitis. The differential diagnosis for the increased fluid in his abdomen could be secondary to underlying nephrotic syndrome, hypoalbuminemia, pancreatitis, malnutrition less likely peritonitis. He would to get repeat paracentesis and his SAG gradient would have to be calculated with also checking a lipase and the fluid, amylase and fluid, protein electrophoresis of the fluid to make sure there is no underlying lymphoma, myeloma or amyloidosis in the fluid. 01/06/24-his white blood cell count is still increasing. Top of my differential diagnosis is still neutrophilic leukocytosis in the setting of acute idiopathic pancreatitis. Autoimmune workup for autoimmune pancreatitis is pending. He has a high number of neutrophils in his ascitic fluid. On antibiotic therapy as per ID. Continue conservative therapy. 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 The dilation in the colon and the small bowel also can be secondary to small bacterial overgrowth. His imaging says that he does not have cirrhosis. The only way to confirm cirrhosis would be a liver biopsy after paracentesis. Recommendation: -Check IgG4 -Check J CARLOS -Check ANCA antibodies -Check ferritin, iron, TIBC and transferrin -Check LDH -Check CEA, CA 19-9 -Check urine for protein, check SPEP and UPEP -Check cardiac echo to see if the fluid is coming from alcoholic cardiomyopathy with low ejection fraction -Azithromycin 500 mg IV daily for small bowel dilation 01/05/24-Patient's neutrophil count in the ascitic fluid was very high at 515. But the culture has been negative. Appreciate infectious disease help with management of antibiotics. His CRP is still very elevated. I am awaiting further workup to see if he has any signs of autoimmune disease that is driving his inflammatory reaction. Also waiting for protein electrophoresis to see if he is secreting any abnormal protein and may be contributing to his ascites. Awaiting on repeat paracentesis to recalculate his SAG gradient. Patients with culture negative neutrocytic ascites have a mortality rate comparable to spontaneous bacterial peritonitis. aspartate aminotransferase, alanine aminotransferase , acute kidney injury , model for end stage liver disease and septic shock are the independent predictors of 50?days in-hospital mortality in culture negative neutrocytic ascites. Guarded prognosis 01/07/24-patient's elevated white blood cell count in the setting of acute idiopathic pancreatitis and ascites along with hepatosplenomegaly makes me think of possible autoimmune related phenomenon. I would also think about chronic Budd-Chiari syndrome in the setting of ascites. I am hesistant to start him steroids with his neutrophilic leukocytosis. If it is ok with infectious disease we may be able to give him a trial of steroids to see if it improves of his ascites. He has a low SAG gradient ascites with abundant neutrophils. His CA 19-9 is elevated in the setting of acute pancreatitis at 94. There is no clear pancreatic mass that is seen and it would be hard to elicit with an MRI due to his ascites and it would be difficult to assess in the setting of acute pancreatitis. There is a possibility that he may respond to antibiotic therapy but at this time he does not seem to improve with broad-spectrum antibiotics. I will discuss his care with infectious disease and the primary team prior to initiating immunosuppression. Charges/Coding Visit Charges Inpatient E&M: 06655 Subs Hosp L3
[2024-01-07] MEDS: Lactulose 20 GM/30 ML UDC 10 GM PO (22:20)
[2024-01-07] MEDS: Heparin Injection (Vial) 5,000 UNIT/ML VIAL 5000 UNIT SC (22:21)
[2024-01-08 03:00] VITALS: BP 101/71; PULSE 93; RESP 17; TEMP 36.4; O2SAT 93
[2024-01-08] MEDS: Meropenem 1 GM in 0.9% Normal Saline (100mL MB+) 100 ML IV ×3 (05:42→21:53)
[2024-01-08 06:46] LABS: Hematocrit 36.4 % (40-54); Hemoglobin 12.6 g/dL (13.0-16.5); Mean Corp Hgb Conc 34.6 g/dL (32-36); Mean Corpuscular Hgb 32.3 pg (27.0-32.0); Mean Corpuscular Volume 93.3 fL (80-94); Mean Platelet Vol. 10.2 fl (6.2-12.0); POSITIVE MORPHOLOGY YES; Platelet Count 483 K/mm3 (150-450); RBC Distribution Width CV 20.5 % (11.6-14.6); RBC Distribution Width SD 62.3 fl (35.1-43.9); White Blood Count 26.8 K/mm3 (4.4-11.0)
[2024-01-08 07:10] VITALS: PULSE 98; RESP 20
[2024-01-08] MEDS: Ipratropium/Albuterol Sulfate 3 ML AMPUL.NEB INHALATION ×3 (07:10→18:49)
[2024-01-08 07:14] LABS: Scan Indicated on CBC? Y/N YES- FLAGS NOTED
[2024-01-08 07:37] LABS: ALB/GLOB Ratio 0.4 RATIO (0.9-2.4); AST(SGOT) 108 U/L (15-37); Alanine Aminotransfer ALT/SGPT 34 U/L (16-61); Albumin, Serum 1.6 g/dL (3.2-5.0); Alkaline Phosphatase 260 U/L (45-117); Anion Gap 9 (5-15); BUN 59 mg/dL (7-18); BUN/Creat Ratio 57.3 RATIO (10-20); Calcium,Total 8.9 mg/dL (8.5-10.1); Chloride 109 mmol/L (98-107); Creatinine, Serum 1.03 mg/dL (0.70-1.30); EST Glomerular Filtration Rate 76 mL/min (>60); Est Glom Filt Rate - Afr Amer 92 mL/min (>60); Estimated Creatinine Clearance 68.91 ml/min; Globulin 4.1 g/dL (2.2-4.2); Glucose 112 mg/dL (74-106); Potassium 3.8 mmol/L (3.5-5.1); Protein, Total 5.7 g/dL (6.4-8.2); Sodium Level 143 mmol/L (136-145)
[2024-01-08 08:35] VITALS: BP 114/66; PULSE 95; RESP 16; TEMP 37.1; O2SAT 92
[2024-01-08] MEDS: Furosemide 40 MG Tablet PO (08:38)
[2024-01-08] MEDS: Potassium Chloride Oral Tablet 20 MEQ 40 MEQ PO (08:38)
[2024-01-08] MEDS: Amiodarone 200 MG Tablet PO (08:38)
[2024-01-08] MEDS: Pantoprazole Sodium 40 MG Tablet PO ×2 (08:38→21:54)
[2024-01-08] MEDS: Menthol/Lanolin/Calamine/Znox 113 GM Tube 1 APPLIC TOPICAL ×2 (08:40→21:52)
[2024-01-08] MEDS: Juven (unflavored) Packet 1 PACKET PO ×2 (08:40→21:53)
[2024-01-08] MEDS: Ensure Plus High Protein 120 ML LIQUID PO ×3 (08:41→21:53)
[2024-01-08] MEDS: Heparin Injection (Vial) 5,000 UNIT/ML VIAL 5000 UNIT SC ×2 (08:41→21:53)
--- NOTE | 2024-01-08 09:55 | CASEMGMT ---
Physician spoke to patient's brother Donnell about Hospice. Donnell was agreeable to Hospice. SW called Donnell and confirmed he is fine with the local Hospice. ROLANDO told Donnell to expect a phone call from Hospice to set up an appointment. SW called Hospice and made the referral. ROLANDO also faxed information. Sylvie Holm SHIP PROPELLER FINISHERRenaldo ROSARIO
--- NOTE | 2024-01-08 13:09 | CASEMGMT ---
Hospice called ROLANDO and said patient's son requested they meet Friday at 1p. ROLANDO called patient's brother Donnell. Donnell said he is out of town working today and tomorrow he has to go to [place] to get a biopsy. ROLANDO notified physician. Sylvie Holm DIRECTOR OF ADVERTISING SALES MARLENE
[2024-01-08 13:41] VITALS: PULSE 85; RESP 20
--- NOTE | 2024-01-08 13:58 | PCM.PN.ID ---
Physical Exam Narrative Feeling better, no abd pain, more awake, no fever Const no apparent distress General Appearance: cooperative Resp normal air movement and clear to auscultation bilaterally Cardio regular rate and regular rhythm GI soft to palpation and non-tender GI Narrative: mild distension Skin no rashes or lesions noted ID ID: Route of nutrition/ use of supplements: [] Nutritional Intake: [] IV Site: [] Rai Catheter: [] Assessment & Plan Assessment/Plan (1) Leukocytosis: PLAN: Paracentesis shows SBP with neutrophil count of 515. Fluid cx neg so far. Repeat tap 01/06 showed increasing inflammation. Bcx neg so far. Cont lui. Mental status better today, wbc has decreased slightly. Ok to try course of steroids from ID perspective. Will follow (2) Acute encephalopathy: (3) Abdominal ascites: QUALIFIERS: Ascites type: other type Qualified Code(s): R18.8 - Other ascites
[2024-01-08] MEDS: Lactulose 20 GM/30 ML UDC 10 GM PO ×2 (14:55→21:52)
--- NOTE | 2024-01-08 15:02 | PN.HOSP_ITS ---
Reason for Visit Reason for Visit: Diagnoses Elevated white blood cell count, unspecified (12/31/23) Encephalopathy, unspecified (12/31/23) Chronic systolic (congestive) heart failure (12/31/23) Pneumonia, unspecified organism (12/31/23) Noninfective gastroenteritis and colitis, unspecified (12/31/23) Spontaneous bacterial peritonitis (12/31/23) Hepatic failure, unspecified without coma (12/31/23) Unspecified cirrhosis of liver (12/31/23) Other ascites (12/31/23) Subjective Subjective No acute events overnight. Patient seen at bedside this morning. Appears similar to previous days, laying back comfortably in bed but appears very weak. Continues to mumble significantly with conversation, unable to understand him clearly. Does report some abdominal pain this morning especially with palpation. No other acute concerns. See my note from yesterday evening regarding discussion with patient's brother Donnell about hospice care. On further discussion with hospice care over the phone this morning, he was okay with transitioning patient to comfort care status. However, official meeting with hospice will not happen until Tuesday 01/09 due to Donnell's schedule. Changed to DNRCC status today. Objective Data Objective Data Vital Signs: Vital Signs Temp Pulse Resp BP Pulse Ox O2 Del Method O2 Flow Rate 98.7 F 95 16 114/66 92 Room Air 2 01/08/24 08:35 01/08/24 08:35 01/08/24 08:35 01/08/24 08:35 01/08/24 08:35 01/08/24 08:35 01/02/24 12:51 Oxygen Flow Rate (L/min) 2 Oxygen Delivery Method Room Air Weight: 70 kg Body Mass Index (BMI) 19.8 Intake & Output: Intake and Output for Last 24 Hours 01/06/24 01/07/24 01/08/24 23:59 23:59 23:59 Intake Total 694.10 / 694.10 410 / 510 380 / 380 Output Total 550 / 550 2646 / 2746 2851 / 2851 Balance 144.10 / 144.10 -2236 / -2236 -2471 / -2471 Medical Nutrition Assessment Dietitian: Malnutrition Criteria Met Start: 01/01/24 11:38 Freq: Status: Active Protocol: Document 01/05/24 12:31 RMA (Rec: 01/05/24 12:31 RMA [id number]) Nutrition Malnutrition Evidence of Malnutrition Exists Yes Malnutrition (moderate): Acute Illness/Injury Evidenced By Suboptimal Energy Intake ( Moderate),Physical Changes ( Moderate) Clinical Problem Acute Disease or Injury Related Malnutrition Etiology acute on likely chronic moderate malnutrition related to inadequate energy intake Signs/Symptoms as evidenced by estimated PO intake meeting <75% of estimated energy needs > 1 week, Moderate muscle wasting/ fat loss evident per physical exam in orbital, clavicle, acromion, and temporal areas Status Active Problem Recommendation Dietitian Recommendations/Changes Continue liberalized regular diet. Consider CELL EFFICIENCY SUPERVISOR evaluation d/t poor dentition, may need modified textures. Will Will continue Angel BID and add Ensure Plus High Protein 120mL 4x/day with medpass. Trend weights as available. Lab / Micro Data 01/08/24 06:32 01/08/24 06:32 Labs: Laboratory Results - last 24 hr 01/08/24 06:32: WBC 26.8 H, RBC 3.90 L, Hgb 12.6 L, Hct 36.4 L, MCV 93.3, MCH 32.3 H, MCHC 34.6, RDW Std Deviation 62.3 H, RDW Coeff of Yoli 20.5 H, Plt Count 483 H, MPV 10.2, Sodium 143, Potassium 3.8, Chloride 109 H, Carbon Dioxide 25.0, Anion Gap 9, BUN 59 H, Creatinine 1.03, Estim Creat Clear Calc 68.91, Est GFR (MDRD) Af Amer 92, Est GFR (MDRD) Non-Af 76, BUN/Creatinine Ratio 57.3 H, Glucose 112 H, Calcium 8.9, Total Bilirubin 1.00, AST 108 H, ALT 34, Alkaline Phosphatase 260 H, Total Protein 5.7 L, Albumin 1.6 L, Globulin 4.1, Albumin/Globulin Ratio 0.4 L Micro: Microbiology 01/01/24 10:50 Fluid - Ascites Gram Stain - Final 01/01/24 10:50 Fluid - Ascites Body Fluid Culture - Final Culture exhibits no growth. 01/01/24 10:50 Fluid - Ascites Anaerobic Culture - Final No growth in 5 days. 12/31/23 13:35 Blood Culture (Wb) - Left Hand Blood Culture - Final No growth in 5 days. 12/31/23 13:17 Blood Culture (Wb) - Anticubital Right Blood Culture - Final No growth in 5 days. 12/31/23 13:35 Mucosa - Nose SARS-CoV-2, Influenza & RSV (PCR) - Final Rhythm Strip Rhythm Strip: Sinus Tach Rate: 103 Ectopy: None Physical Exam Const alert, no apparent distress and average body habitus Constitutional Narrative: Elderly male, chronically ill-appearing, fatigued, making appropriate eye contact but has weak voice and is difficult to understand, otherwise laying comfortably in bed and in no acute distress. General Appearance: cooperative and comfortable HEENT normocephalic, head/scalp atraumatic, hearing grossly normal bilaterally and nasal mucous membranes and turbinates normal Eyes PERRL, EOMs intact bilaterally and conjunctivae normal Neck full ROM Chest inspection of chest normal Resp normal respiratory effort, normal air movement, no use of accessory muscles and clear to auscultation bilaterally Cardio regular rate, regular rhythm, no murmurs and peripheral pulses 2+ throughout GI GI Narrative: Mildly distended, soft, nontender to palpation. Back/Spine normal ROM Extremity normal to inspection, full ROM and no pedal edema Skin no rashes or lesions noted Neuro no focal motor deficits and no sensory deficits noted Assessment & Plan Assessment/Plan (1) DNR (do not resuscitate): (2) SBP (spontaneous bacterial peritonitis): (3) Decompensation of cirrhosis of liver: PLAN: Plan Patient is a 68-year-old male who presented to [facility] ED on 12/31/2023 with lethargy and altered mental status. 1. DNRCC status ? See my note from 01/06 for more details about conversation with patient's brother Donnell who is official HCPOA for patient. Given patient's poor prognosis due to multiple medical issues as noted below, decision was made on morning of 01/07 to transition patient to DNR CC status. Hospice consulted, will be meeting with Donnell to discuss further details on Tuesday 01/09. Notably, discontinue antibiotics and lab draws for patient but otherwise kept his other medications on as normal. Can consider adding comfort meds as needed. 2. Acute metabolic encephalopathy, improving ? Unclear etiology. Has known history of mild cognitive dysfunction suspected secondary to history of alcohol use disorder. Current altered mentation could be secondary to Warnicke's encephalopathy. Could also be secondary to infection as noted below. ? Mildly improved from admission, stable. 3. Decompensated alcoholic cirrhosis with ascites, spontaneous bacterial peritonitis, persistent leukocytosis ? GI and ID following. S/p paracentesis on with 2900 mL of dark werner- colored fluid removed. Showed SBP with neutrophil count of 515. Fluid cultures and blood cultures negative thus far. ? Suspect that persistent leukocytosis may be secondary to decompensated alcoholic cirrhosis. ? Repeat paracentesis on 01/06 with radiology, 2400 mL of dark werner-colored fluid removed. Fluid studies pending. ? De-escalated from IV Lasix 40 mg daily to p.o. Lasix 40 mg daily on 01/05 as creatinine was slowly worsening. Continue lactulose. Monitor kidney function daily. ? Discontinued meropenem on 01/07. 4. Acute distal descending and sigmoid colitis ? Recent CT abdomen/pelvis on 12/22 showed multifocal thickening of chandler of distal descending and sigmoid colon possibly representing colitis. ? GI following as above. Antibiotics discontinued as noted above. 5. Gastritis and gastric ulcers ? EGD on 01/01 showed acute gastritis with oozing gastric ulcers that were treated with heater probe. ? Hemoglobin has remained stable between 12-13 since admission. ? Continue p.o. PPI twice daily. 6. Worsening HFrEF, history of CAD ? Known history of HFrEF, last echo in 05/2022 showed EF 35%, stage I diastolic dysfunction, mildly dilated LV. ? Noted to have moderate-sized bilateral pleural effusions on chest imaging on admission. ? Echo showed EF 20%, stage I diastolic dysfunction, severe global hypokinesis of LV. ? Discussed with on-call cardiology, no active intervention recommended for drop in EF. ? Continue home Toprol and Plavix. Continue p.o. Lasix as noted above. 7. Debility ? Presented from half-way facility. PT/OT/case management following. Planning for hospice care on discharge. Chronic medical conditions: ? Hypertension, hyperlipidemia: Continue home metoprolol and statin. ? History of alcohol use disorder with resultant cognitive dysfunction: Continue thiamine. ? History of pulmonary nodule: Stable. Outpatient follow-up with pulmonology. ? History of ventricular tachycardia s/p ICD placement: Continue home amiodarone. DVT prophylaxis: SCDs CODE STATUS: DNR CC Expected disposition: Hospice care, likely with inpatient hospice or hospice in half-way facility Total clinical time spent by myself addressing the patient's medical issues, reviewing all the data, and collaborating with patient's care team: 35 minutes. Charges/Coding Visit Charges Inpatient E&M: 05991 Subs Hosp L2
--- NOTE | 2024-01-08 16:59 | EX.PCM.PN.GI ---
Subjective Subjective Patient is still oriented to person and sometimes place. He has a poor diet. Objective Data Objective Data Vital Signs: Vital Signs Temp Pulse Resp BP Pulse Ox O2 Del Method O2 Flow Rate 98.7 F 95 16 114/66 92 Room Air 2 01/08/24 08:35 01/08/24 08:35 01/08/24 08:35 01/08/24 08:35 01/08/24 08:35 01/08/24 08:35 01/02/24 12:51 Oxygen Flow Rate (L/min) 2 Oxygen Delivery Method Room Air Weight: 154 lb 5.177 oz Body Mass Index (BMI) 19.8 Intake & Output: Intake and Output for Last 24 Hours 01/06/24 01/07/24 01/08/24 23:59 23:59 23:59 Intake Total 694.10 / 694.10 410 / 510 380 / 380 Output Total 550 / 550 2646 / 2746 2851 / 2851 Balance 144.10 / 144.10 -2236 / -2236 -2471 / -2471 Medical Nutrition Assessment Dietitian: Malnutrition Criteria Met Start: 01/01/24 11:38 Freq: Status: Active Protocol: Document 01/05/24 12:31 RMA (Rec: 01/05/24 12:31 RMA [id number]) Nutrition Malnutrition Evidence of Malnutrition Exists Yes Malnutrition (moderate): Acute Illness/Injury Evidenced By Suboptimal Energy Intake ( Moderate),Physical Changes ( Moderate) Clinical Problem Acute Disease or Injury Related Malnutrition Etiology acute on likely chronic moderate malnutrition related to inadequate energy intake Signs/Symptoms as evidenced by estimated PO intake meeting <75% of estimated energy needs > 1 week, Moderate muscle wasting/ fat loss evident per physical exam in orbital, clavicle, acromion, and temporal areas Status Active Problem Recommendation Dietitian Recommendations/Changes Continue liberalized regular diet. Consider MACHINE FILLER SERVICER evaluation d/t poor dentition, may need modified textures. Will Will continue Angel BID and add Ensure Plus High Protein 120mL 4x/day with medpass. Trend weights as available. Lab / Micro Data 01/08/24 06:32 01/08/24 06:32 Labs: Laboratory Results - last 24 hr 01/08/24 06:32: WBC 26.8 H, RBC 3.90 L, Hgb 12.6 L, Hct 36.4 L, MCV 93.3, MCH 32.3 H, MCHC 34.6, RDW Std Deviation 62.3 H, RDW Coeff of Yoli 20.5 H, Plt Count 483 H, MPV 10.2, Sodium 143, Potassium 3.8, Chloride 109 H, Carbon Dioxide 25.0, Anion Gap 9, BUN 59 H, Creatinine 1.03, Estim Creat Clear Calc 68.91, Est GFR (MDRD) Af Amer 92, Est GFR (MDRD) Non-Af 76, BUN/Creatinine Ratio 57.3 H, Glucose 112 H, Calcium 8.9, Total Bilirubin 1.00, AST 108 H, ALT 34, Alkaline Phosphatase 260 H, Total Protein 5.7 L, Albumin 1.6 L, Globulin 4.1, Albumin/Globulin Ratio 0.4 L Micro: Microbiology 01/01/24 10:50 Fluid - Ascites Gram Stain - Final 01/01/24 10:50 Fluid - Ascites Body Fluid Culture - Final Culture exhibits no growth. 01/01/24 10:50 Fluid - Ascites Anaerobic Culture - Final No growth in 5 days. 12/31/23 13:35 Blood Culture (Wb) - Left Hand Blood Culture - Final No growth in 5 days. 12/31/23 13:17 Blood Culture (Wb) - Anticubital Right Blood Culture - Final No growth in 5 days. 12/31/23 13:35 Mucosa - Nose SARS-CoV-2, Influenza & RSV (PCR) - Final Rhythm Strip Rhythm Strip: Sinus Tach Rate: 103 Ectopy: None Physical Exam Narrative Feeling better, no abd pain, more awake, no fever Const no apparent distress General Appearance: cooperative Resp normal air movement and clear to auscultation bilaterally Cardio regular rate and regular rhythm GI soft to palpation and non-tender GI Narrative: mild distension Skin no rashes or lesions noted Assessment & Plan Assessment/Plan (1) Multifocal pneumonia: (2) Leukocytosis: (3) Acute encephalopathy: PLAN: Plan 68-year-old gentleman was brought to ED by paramedics for a complaint of altered mental status from snf with generalized weakness, not eating or drinking much. 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 Patient also complained of left lower quadrant abdominal pain. Cover for SBP. No fever or vomiting. 1 Acute distal descending and sigmoid colitis: Mild left lower quadrant tenderness. IV antibiotic switched to p.o Cipro and Flagyl. 2. Hypertension?continue routine home medications heart rate and blood pressure controlled. He would likely need to be switched to nadolol. 3. Ascites- with hepatic hydrothorax. He needs paracentesis. Check for SBP. He will likely need a VATS procedure in the future to prevent recurrent hepatic hydrothorax 4. 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 Decubitus ulcer of the coccyx region, right heel: Recommend Wound care nurse consult. 6. 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 Check for chronic hepatitis B chronic hepatitis C, hemochromatosis, autoimmune hepatitis. His current MELD is low at 18. He is a child Becker class C at this time. He is not a candidate for TIPS procedure due to history of recurrent auto mental status. TIPS would make his auto mental status worse. Continue lactulose 30 cc p.o. every 6 hours and started Xifaxan 550 mg p.o. 3 times daily. Check B12, folate, start thiamine 100 mg a day. Clinical Impression(s) from Imaging Studies Chest X-Ray 12/22/23 17:57 IMPRESSION: Mildly displaced fractures of the eighth and ninth ribs..Possible tiny left pleural effusion Abdomen/Pelvis CT 12/22/23 18:24 IMPRESSION: Mildly prominent liver and spleen Massive abdominopelvic ascites possibly due to hepatocellular disease. Multifocal thickening of the chandler of the distal descending and sigmoid colon possibly representing colitis however clinical correlation is recommended. There is relatively hypoattenuated appearance to the head of the pancreas possibly representing focal pancreatitis Other findings as above Brain CT 12/22/23 18:24 IMPRESSION: Atrophy and periventricular white matter ischemic change. No acute bleed. If concern for acute infarct MRI recommended. Electronically Signed: Zhao Mcallister MD at 19:00 EST , 01/01/24- I cannot explain why his mental status is awaiting his right now. I am suspecting that recently he had pancreatitis and possibly resulted in ARDS and subsequent renal failure and bilateral pleural effusions. In that setting he may have developed community-acquired pneumonia since being out of the hospital. His platelet count is not consistent with cirrhosis even if it is an acute phase reactant in the setting of an infection from pneumonia. His paracentesis fluid did not look like SBP. 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 Recommend diuresis. Patient continue antibiotics. He should undergo an upper endoscopy to evaluate his upper GI tract to see if he has any signs of varices or portal hypertension. N.p.o. past midnight for possible upper endoscopy tomorrow. 01/04/24- The differential diagnosis for this elevated white blood cell count could be secondary to neutrophilic leukocytosis or leukemoid reaction. This could be because of underlying and nonresolving pancreatitis. The differential diagnosis for the increased fluid in his abdomen could be secondary to underlying nephrotic syndrome, hypoalbuminemia, pancreatitis, malnutrition less likely peritonitis. He would to get repeat paracentesis and his SAG gradient would have to be calculated with also checking a lipase and the fluid, amylase and fluid, protein electrophoresis of the fluid to make sure there is no underlying lymphoma, myeloma or amyloidosis in the fluid. 01/06/24-his white blood cell count is still increasing. Top of my differential diagnosis is still neutrophilic leukocytosis in the setting of acute idiopathic pancreatitis. Autoimmune workup for autoimmune pancreatitis is pending. He has a high number of neutrophils in his ascitic fluid. On antibiotic therapy as per ID. Continue conservative therapy. He also has a presence of mild dilation in his colon and his Ileum that is possibly secondary to colonic pseudoobstruction in particular [place] syndrome. The dilation in the colon and the small bowel also can be secondary to small bacterial overgrowth. His imaging says that he does not have cirrhosis. The only way to confirm cirrhosis would be a liver biopsy after paracentesis. Recommendation: -Check IgG4 -Check J CARLOS -Check ANCA antibodies -Check ferritin, iron, TIBC and transferrin -Check LDH -Check CEA, CA 19-9 -Check urine for protein, check SPEP and UPEP -Check cardiac echo to see if the fluid is coming from alcoholic cardiomyopathy with low ejection fraction -Azithromycin 500 mg IV daily for small bowel dilation 01/05/24-Patient's neutrophil count in the ascitic fluid was very high at 515. But the culture has been negative. Appreciate infectious disease help with management of antibiotics. His CRP is still very elevated. I am awaiting further workup to see if he has any signs of autoimmune disease that is driving his inflammatory reaction. Also waiting for protein electrophoresis to see if he is secreting any abnormal protein and may be contributing to his ascites. Awaiting on repeat paracentesis to recalculate his SAG gradient. Patients with culture negative neutrocytic ascites have a mortality rate comparable to spontaneous bacterial peritonitis. aspartate aminotransferase, alanine aminotransferase , acute kidney injury , model for end stage liver disease and septic shock are the independent predictors of 50?days in-hospital mortality in culture negative neutrocytic ascites. Guarded prognosis 01/07/24-patient's elevated white blood cell count in the setting of acute idiopathic pancreatitis and ascites along with hepatosplenomegaly makes me think of possible autoimmune related phenomenon. I would also think about chronic Budd-Chiari syndrome in the setting of ascites. I am hesistant to start him steroids with his neutrophilic leukocytosis. If it is ok with infectious disease we may be able to give him a trial of steroids to see if it improves of his ascites. He has a low SAG gradient ascites with abundant neutrophils. His CA 19-9 is elevated in the setting of acute pancreatitis at 94. There is no clear pancreatic mass that is seen and it would be hard to elicit with an MRI due to his ascites and it would be difficult to assess in the setting of acute pancreatitis. There is a possibility that he may respond to antibiotic therapy but at this time he does not seem to improve with broad-spectrum antibiotics. I will discuss his care with infectious disease and the primary team prior to initiating immunosuppression. 01/08/24-patient's white blood cell count is slightly down today. Due to patient's ongoing poor decline family is considering hospice. If he does not become hospice we can try a gluten-free diet with steroids and repeat his paracentesis to see if his SAG gradient is still less than 1.1 with a low protein and containing abundant neutrophils. 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 's Charges/Coding Visit Charges Inpatient E&M: 83424 Subs Hosp L3
[2024-01-08 18:49] VITALS: PULSE 83; RESP 32
[2024-01-08 22:10] VITALS: BP 118/60; PULSE 68; RESP 20; TEMP 36.4; O2SAT 95
[2024-01-09] VITALS (7 sets, daily range): BP systolic 106–115; BP diastolic 64–74; PULSE 66–99; RESP 14–24; TEMP 35.9–36.6; O2SAT 95–96
[2024-01-09] MEDS: Ipratropium/Albuterol Sulfate 3 ML AMPUL.NEB INHALATION ×4 (01:50→19:02)
[2024-01-09] MEDS: Meropenem 1 GM in 0.9% Normal Saline (100mL MB+) 100 ML IV ×3 (05:29→22:31)
[2024-01-09 06:40] LABS: Hematocrit 36.6 % (40-54); Hemoglobin 12.6 g/dL (13.0-16.5); Mean Corp Hgb Conc 34.4 g/dL (32-36); Mean Corpuscular Hgb 32.5 pg (27.0-32.0); Mean Corpuscular Volume 94.3 fL (80-94); Mean Platelet Vol. 11.3 fl (6.2-12.0); POSITIVE COUNT YES; POSITIVE MORPHOLOGY YES; Platelet Count 427 K/mm3 (150-450); RBC Distribution Width CV 21.2 % (11.6-14.6); RBC Distribution Width SD 68.4 fl (35.1-43.9); Red Blood Count 3.88 M/mm3 (4.6-6.2)
[2024-01-09 06:49] LABS: Scan Indicated on CBC? Y/N YES- FLAGS NOTED; White Blood Count 30.7 K/mm3 (4.4-11.0)
[2024-01-09 07:39] LABS: ALB/GLOB Ratio 0.4 RATIO (0.9-2.4); AST(SGOT) 132 U/L (15-37); Alanine Aminotransfer ALT/SGPT 35 U/L (16-61); Albumin, Serum 1.5 g/dL (3.2-5.0); Alkaline Phosphatase 290 U/L (45-117); Anion Gap 7 (5-15); BUN 60 mg/dL (7-18); BUN/Creat Ratio 65.6 RATIO (10-20); Calcium,Total 8.5 mg/dL (8.5-10.1); Chloride 108 mmol/L (98-107); Creatinine, Serum 0.92 mg/dL (0.70-1.30); EST Glomerular Filtration Rate 88 mL/min (>60); Est Glom Filt Rate - Afr Amer 106 mL/min (>60); Estimated Creatinine Clearance 77.14 ml/min; Globulin 4.1 g/dL (2.2-4.2); Glucose 91 mg/dL (74-106); Potassium 3.9 mmol/L (3.5-5.1); Protein, Total 5.6 g/dL (6.4-8.2); Sodium Level 139 mmol/L (136-145)
[2024-01-09 08:47] LABS: Pathologist Comment/Body Fluid Reviewed
[2024-01-09 08:49] LABS: Pathologist Review Reviewed
[2024-01-09] MEDS: Potassium Chloride Oral Tablet 20 MEQ 40 MEQ PO (09:07)
[2024-01-09] MEDS: Furosemide 40 MG Tablet PO (09:07)
[2024-01-09] MEDS: Ensure Plus High Protein 120 ML LIQUID PO (09:07)
[2024-01-09] MEDS: Heparin Injection (Vial) 5,000 UNIT/ML VIAL 5000 UNIT SC ×2 (09:07→22:35)
[2024-01-09] MEDS: Amiodarone 200 MG Tablet PO (09:07)
[2024-01-09] MEDS: Juven (unflavored) Packet 1 PACKET PO (09:07)
[2024-01-09] MEDS: Pantoprazole Sodium 40 MG Tablet PO ×2 (09:07→22:35)
[2024-01-09] MEDS: Menthol/Lanolin/Calamine/Znox 113 GM Tube 1 APPLIC TOPICAL (09:08)
--- NOTE | 2024-01-09 11:33 | PN.HOSP_ITS ---
Reason for Visit Reason for Visit: Diagnoses Elevated white blood cell count, unspecified (12/31/23) Encephalopathy, unspecified (12/31/23) Chronic systolic (congestive) heart failure (12/31/23) Pneumonia, unspecified organism (12/31/23) Noninfective gastroenteritis and colitis, unspecified (12/31/23) Spontaneous bacterial peritonitis (12/31/23) Hepatic failure, unspecified without coma (12/31/23) Unspecified cirrhosis of liver (12/31/23) Other ascites (12/31/23) Do not resuscitate (12/31/23) Subjective Subjective No acute events overnight. Patient seen at bedside this morning. Sitting up in bed fairly comfortably, no acute distress. Appears similar to previous days. He denies any acute pain or discomfort this morning. No other acute concerns this time. Objective Data Objective Data Vital Signs: Vital Signs Temp Pulse Resp BP Pulse Ox O2 Del Method O2 Flow Rate 97.7 F L 99 18 108/64 96 Room Air 2 01/09/24 09:06 01/09/24 09:06 01/09/24 09:06 01/09/24 09:06 01/09/24 09:06 01/09/24 09:06 01/02/24 12:51 Oxygen Flow Rate (L/min) 2 Oxygen Delivery Method Room Air Weight: 70 kg Body Mass Index (BMI) 19.8 Intake & Output: Intake and Output for Last 24 Hours 01/07/24 01/08/24 01/09/24 23:59 23:59 23:59 Intake Total 410 / 510 520 / 1120 940 / 940 Output Total 2646 / 2746 5402 / 5602 400 / 400 Balance -2236 / -2236 -4882 / -4482 540 / 540 Medical Nutrition Assessment Dietitian: Malnutrition Criteria Met Start: 01/01/24 11:38 Freq: Status: Active Protocol: Document 01/05/24 12:31 RMA (Rec: 01/05/24 12:31 RMA [id number]) Nutrition Malnutrition Evidence of Malnutrition Exists Yes Malnutrition (moderate): Acute Illness/Injury Evidenced By Suboptimal Energy Intake ( Moderate),Physical Changes ( Moderate) Clinical Problem Acute Disease or Injury Related Malnutrition Etiology acute on likely chronic moderate malnutrition related to inadequate energy intake Signs/Symptoms as evidenced by estimated PO intake meeting <75% of estimated energy needs > 1 week, Moderate muscle wasting/ fat loss evident per physical exam in orbital, clavicle, acromion, and temporal areas Status Active Problem Recommendation Dietitian Recommendations/Changes Continue liberalized regular diet. Consider PANTOGRAPH MACHINE OPERATOR evaluation d/t poor dentition, may need modified textures. Will Will continue Angel BID and add Ensure Plus High Protein 120mL 4x/day with medpass. Trend weights as available. Lab / Micro Data 01/09/24 05:13 01/09/24 05:13 Labs: Laboratory Results - last 24 hr 01/07/24 06:55: Diff Path Review Reviewed 01/07/24 12:10: Fl Pathologist Comment Reviewed 01/09/24 05:13: WBC 30.7 H*, RBC 3.88 L, Hgb 12.6 L, Hct 36.6 L, MCV 94.3 H, MCH 32.5 H, MCHC 34.4, RDW Std Deviation 68.4 H, RDW Coeff of Yoli 21.2 H, Plt Count 427, MPV 11.3, Differential Comment , Diff Path Review May foll, Sodium 139, Potassium 3.9, Chloride 108 H, Carbon Dioxide 24.0, Anion Gap 7, BUN 60 H, Creatinine 0.92, Estim Creat Clear Calc 77.14, Est GFR (MDRD) Af Amer 106, Est GFR (MDRD) Non-Af 88, BUN/Creatinine Ratio 65.6 H, Glucose 91, Calcium 8.5, Total Bilirubin 0.90, AST 132 H, ALT 35, Alkaline Phosphatase 290 H, Total Protein 5.6 L, Albumin 1.5 L, Globulin 4.1, Albumin/Globulin Ratio 0.4 L Micro: Microbiology 01/01/24 10:50 Fluid - Ascites Gram Stain - Final 01/01/24 10:50 Fluid - Ascites Body Fluid Culture - Final Culture exhibits no growth. 01/01/24 10:50 Fluid - Ascites Anaerobic Culture - Final No growth in 5 days. 12/31/23 13:35 Blood Culture (Wb) - Left Hand Blood Culture - Final No growth in 5 days. 12/31/23 13:17 Blood Culture (Wb) - Anticubital Right Blood Culture - Final No growth in 5 days. 12/31/23 13:35 Mucosa - Nose SARS-CoV-2, Influenza & RSV (PCR) - Final Rhythm Strip Rhythm Strip: Sinus Tach Rate: 103 Ectopy: None Physical Exam Const alert, no apparent distress and average body habitus Constitutional Narrative: Elderly male, chronically ill-appearing, fatigued, making appropriate eye contac t but has weak voice and is difficult to understand, otherwise laying comfortably in bed and in no acute distress. General Appearance: cooperative and comfortable HEENT normocephalic, head/scalp atraumatic, hearing grossly normal bilaterally and nasal mucous membranes and turbinates normal Eyes PERRL, EOMs intact bilaterally and conjunctivae normal Neck full ROM Chest inspection of chest normal Resp normal respiratory effort, normal air movement, no use of accessory muscles and clear to auscultation bilaterally Cardio regular rate, regular rhythm, no murmurs and peripheral pulses 2+ throughout GI GI Narrative: Mildly distended, soft, nontender to palpation. Back/Spine normal ROM Extremity normal to inspection, full ROM and no pedal edema Skin no rashes or lesions noted Neuro no focal motor deficits and no sensory deficits noted Assessment & Plan Assessment/Plan (1) DNR (do not resuscitate): (2) SBP (spontaneous bacterial peritonitis): (3) Decompensation of cirrhosis of liver: PLAN: Plan Patient is a 68-year-old male who presented to [facility] ED on 12/31/2023 with lethargy and altered mental status. 1. DNRCC status ? See my note from 01/06 for more details about conversation with patient's brother Donnell who is official HCPOA for patient. Given patient's poor prognosis due to multiple medical issues as noted below, decision was made on morning of 01/07 to transition patient to DNR CC status. Hospice consulted, will be meeting with Donnell to discuss further details on Tuesday 01/09. Notably, discontinue antibiotics and lab draws for patient but otherwise kept his other medications on as normal. Can consider adding comfort meds as needed. 2. Acute metabolic encephalopathy, improving ? Unclear etiology. Has known history of mild cognitive dysfunction suspected secondary to history of alcohol use disorder. Current altered mentation could be secondary to Warnicke's encephalopathy. Could also be secondary to infection as noted below. ? Mildly improved from admission, stable. 3. Decompensated alcoholic cirrhosis with ascites, spontaneous bacterial peritonitis, persistent leukocytosis ? S/p paracentesis on with 2900 mL of dark werner-colored fluid removed. Showed SBP with neutrophil count of 515. Fluid cultures and blood cultures negative thus far. ? Suspect that persistent leukocytosis may be secondary to decompensated alcoholic cirrhosis. ? Repeat paracentesis on 01/06 with radiology, 2400 mL of dark werner-colored fluid removed. Fluid studies pending. ? De-escalated from IV Lasix 40 mg daily to p.o. Lasix 40 mg daily on 01/05 as creatinine was slowly worsening. Continue lactulose. Monitor kidney function daily. ? Discontinued meropenem on 01/07. ? GI and infectious disease followed. 4. Acute distal descending and sigmoid colitis ? Recent CT abdomen/pelvis on 12/22 showed multifocal thickening of chandler of distal descending and sigmoid colon possibly representing colitis. ? GI followed as above. Antibiotics discontinued as noted above. 5. Gastritis and gastric ulcers ? EGD on 01/01 showed acute gastritis with oozing gastric ulcers that were treated with heater probe. ? Hemoglobin has remained stable between 12-13 since admission. ? Continue p.o. PPI twice daily. 6. Worsening HFrEF, history of CAD ? Known history of HFrEF, last echo in 05/2022 showed EF 35%, stage I diastolic dysfunction, mildly dilated LV. ? Noted to have moderate-sized bilateral pleural effusions on chest imaging on admission. ? Echo showed EF 20%, stage I diastolic dysfunction, severe global hypokinesis of LV. ? Discussed with on-call cardiology, no active intervention recommended for drop in EF. ? Continue home Toprol and Plavix. Continue p.o. Lasix as noted above. 7. Debility ? Presented from alf facility. PT/OT/case management following. Planning for hospice care on discharge. Chronic medical conditions: ? Hypertension, hyperlipidemia: Continue home metoprolol and statin. ? History of alcohol use disorder with resultant cognitive dysfunction: Continue thiamine. ? History of pulmonary nodule: Stable. Outpatient follow-up with pulmonology. ? History of ventricular tachycardia s/p ICD placement: Continue home amiodarone. DVT prophylaxis: SCDs CODE STATUS: DNR CC Expected disposition: Hospice care, likely with inpatient hospice or hospice in alf facility Total clinical time spent by myself addressing the patient's medical issues, reviewing all the data, and collaborating with patient's care team: 25 minutes. Charges/Coding Visit Charges Inpatient E&M: 86527 [facility] L1
[2024-01-09] MEDS: Lactulose 20 GM/30 ML UDC 10 GM PO ×2 (14:03→22:34)
[2024-01-09 15:08] LABS: PROELU- Albumin, Urine 29.5 % (.); PROELU- Alpha-1-Globulin,Ur 2.5 % (.); PROELU- Alpha-2-Globulin,Ur 12.9 % (.); PROELU- Beta Globulin, Ur 31.6 % (.); PROELU- Gamma Globulin, Ur 23.5 % (.); Total Protein, Ur 63.4 mg/dL (Not Estab.)
--- NOTE | 2024-01-09 20:46 | NURSING ---
Patient's brother jay notified of transfer
[2024-01-09] MEDS: 0.9% Normal Saline (250mL Bag) 250 ML 15 ML IV (22:30)
--- OUTSIDE RECORDS SUMMARY | 2024-01-10 00:41 | XMS RPT_ITS | CCD ---
Author Name Unknown Address [address] [place] [address] Organization [facility] Care Team Providers Care [employer] Name Role Phone MD Naga, Luis Augustin [...] MARTIN Unavailable Unavailable FATEMEH NAJERA Unavailable Unavailable JMI PARHAMMAN Unavailable Unavailable FRANSISCA Hernandez, Angela M [...] Hmg-Coa Reductase Inhibitors (Statins) Drug Allergy Unknown [facility] (7 sources) ezetimibe drug allergy 04-23-2017 myalgia's [facility] Work Phone: (12 sources) Hmg-Coa Reductase Inhibitors (Statins) drug allergy 01-13-2014 Elevated Liver Enzymes [facility] Work Phone: (12 sources) iodine drug allergy 05-24-2011 Rash [facility] Work Phone: Medications Current Medications Medication Drug [...] tablet by mouth twice daily AMLODIPINE BESYLATE [id number] Luis Martin MD Problems Active Problems Problem Classification Problem Date Documented Date Episodic/Chronic Cardiac dysrhythmias (20 sources) Ventricular tachycardia; Translations: [Premature beats] Onset: 05-24-2011 05-24-2011 Chronic Coronary atherosclerosis and other heart disease (20 sources) Atherosclerotic heart disease of [place] coronary artery without angina pectoris; Translations: [Coronary [...] 05-24-2011 Episodic Other aftercare (14 sources) Other long-term (current) drug therapy; Translations: [Other intermediate teacher [...] pressure 68 mm[Hg] Shay Cebul Other Phone: [facility] 05-27-2021 14:37-0400 Heart rate 73 /min Shay Cebul Other Phone: [facility] 05-27-2021 14:37-0400 Respiratory rate 18 /min Shay Cebul Other Phone: [facility] 05-27-2021 14:37-0400 Systolic blood pressure 124 mm[Hg] Shay Cebul Other Phone: [facility] 05-27-2021 13:30-0400 SaO2% (BldA) [Mass fraction] 97 % Shay Cebul Other Phone: [facility] 05-27-2021 12:08-0400 Body height 187.9 cm Shay Cebul Other Phone: [facility] 05-27-2021 12:08-0400 Body temperature 99.14 [degF] Shay Cebul Other Phone: [facility] 05-27-2021 12:08-0400 Body weight 90.9 kg Shay Cebul Other Phone: [facility] 05-24-2021 05:30-0400 Diastolic blood pressure 78 mm[Hg] Shay Cebul Other Phone: [facility] 05-24-2021 05:30-0400 Heart rate 90 /min Shay Cebul Other Phone: [facility] 05-24-2021 05:30-0400 Respiratory rate 18 /min Shay Cebul Other Phone: [facility] 05-24-2021 05:30-0400 SaO2% (BldA) [Mass fraction] 95 % Shay Cebul Other Phone: [facility] 05-24-2021 05:30-0400 Systolic blood pressure 130 mm[Hg] Shay Cebul Other Phone: [facility] 08-05-2017 15:22-0400 BMI (Body Mass Index) 27.47 kg/m2 FRANSISCA [facility] Work Phone: 08-05-2017 15:22-0400 BP Diastolic 70 mm[Hg] FRANSICSA [facility] Work Phone: 08-05-2017 15:22-0400 BP Systolic 122 mm[Hg] Angela Hernandez RN [facility] Work Phone: 08-05-2017 15:22-0400 Height 187.96 cm Angela Hernandez RN [facility] Work Phone: 08-05-2017 15:22-0400 Pulse (Heart Rate) 68 /min FRANSISCA [facility] Work Phone: 08-05-2017 15:22-0400 Respiratory Rate 18 /min FRANSISCA [facility] Work Phone: 08-05-2017 15:22-0400 Weight 97.07 kg Angela Hernandez RN [facility] Work Phone: 01-23-2017 14:36-0400 Heart rate 107 /min Harumi Faribais [facility] Work Phone: 01-23-2017 14:07-0400 BMI [...] Chart Update Shay Del Rosario Work Phone: [employer] [facility] Work Phone: Start: 02-14-2022 Chart Update Shay Del Rosario Work Phone: [employer] [facility] Work Phone: Start: 05-27-2021 End: 05-27-2021 Emergency department patient visit Cy Watkinstelma [facility] Emergency 16 Start: 05-24-2021 End: 05-24-2021 Emergency department patient visit Tommy Horn [facility] Emergency 16 Start: 11-08-2017 End: [...] PA-C Work Phone: Start: 09-27-2014 End: 01-04-2015 [facility] Dayanna Mercedes PA-C Work Phone: Start: 09-27-2014 End: 09-27-2014 Prgrmng dev eval implantable in persn 1 ld dfb Dayanna Mercedes PA-C Work Phone: Start: 09-27-2014 End: 01-04-2015 Follow Up Appt 3 months Dayanna fernández PA-C Work Phone: Start: 09-27-2014 End: 09-27-2014 Icd device prog eval, 1 sngl Dayanna Mercedes PA-C Work Phone: Start: 09-27-2014 End: 01-04-2015 [facility] Dayanna Mercedes PA-C Work Phone: Start: 06-01-2014 End: 01-04-2015 Follow Up Appt 3 months Dayanna fernández PA-C Work Phone: Start: 06-01-2014 End: 01-04-2015 [facility] Dayanna Mercedes PA-C Work Phone: Start: [...] End: 01-12-2013 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 eval remote 90 d 1/2/inside sales agent ld dfmanda Ramos MD Start: 01-12-2013 End: [...] End: 04-28-2012 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 eval remote 90 d 1/2/inside sales agent ld dfb Yevgeniy Ramos MD Start: 04-20-2012 [...] Author Start: 02-12-2018 End: 02-12-2018 Appointment Appointment [facility] Work Phone: Start: 09-16-2017 End: 08-05-2017 *Hepatic Function Panel *Hepatic Function Panel [facility] Work Phone: Start: 09-16-2017 End: 08-05-2017 Lipid 1996 panel *Lipid Profile CC PCP [facility] Work Phone: Start: 08-26-2017 End: 08-26-2017 Appointment Appointment [facility] Work Phone: Start: 08-05-2017 End: 08-05-2017 Appointment Appointment [facility] Work Phone: Start: 08-05-2017 End: 08-05-2017 GERALD DUARTE [facility] Work Phone: Start: 08-05-2017 End: 08-05-2017 Follow Up Appt 6 months Follow Up Appt 6 months [facility] Work Phone: Start: 08-05-2017 End: 08-05-2017 Follow Up BP Check Follow Up BP Check [facility] Work Phone: Start: 08-05-2017 End: 08-05-2017 Pacer Clinic Pac[facility] Work Phone: Start: 07-28-2017 End: 07-28-2017 Appointment Appointment [facility] Work Phone: Start: 07-28-2017 End: 07-28-2017 Appointment Appointment [facility] Work Phone: Start: 07-08-2017 End: 07-28-2017 *Hepatic Function Panel *Hepatic Function Panel [facility] Work Phone: Start: 07-08-2017 End: 07-28-2017 Lipid 1996 panel *Lipid Profile CC PCP [facility] Work Phone: Start: 07-08-2017 End: 07-28-2017 *Hepatic Function Panel *Hepatic Function Panel [facility] Work Phone: Start: 07-08-2017 End: 07-28-2017 Lipid panel [AGGREGATE] *Lipid Profile CC PCP [facility] Work Phone: Start: 03-10-2017 End: 04-03-2017 *Hepatic Function Panel *Hepatic Function Panel [facility] Work Phone: Start: 03-10-2017 End: 04-03-2017 Lipid 1996 panel *Lipid Profile CC PCP [facility] Work Phone: Start: 03-10-2017 End: 04-03-2017 *Hepatic Function Panel *Hepatic Function Panel [facility] Work Phone: Start: 03-10-2017 End: 04-03-2017 Lipid panel [AGGREGATE] *Lipid Profile CC PCP [facility] Work Phone: Start: 01-23-2017 End: 01-23-2017 GERALD DUARTE [facility] Work Phone: Start: 01-23-2017 End: 01-23-2017 Ecg routine ecg w/least 12 lds w/i&r EKG (In office) [facility] Work Phone: Start: 01-23-2017 End: 01-23-2017 Echocardiography Echocardiogram (complete) [facility] Work Phone: Start: 01-23-2017 End: 03-13-2017 Follow Up Appt 6 months Follow Up Appt 6 months [facility] Work Phone: Start: 01-23-2017 End: 01-23-2017 Follow Up BP Check Follow Up BP Check [facility] Work Phone: Start: 01-23-2017 End: 03-13-2017 Pacer Clinic Pacer Clinic [facility] Work Phone: Start: 01-23-2017 End: 01-23-2017 GERALD DUARTE [facility] Work Phone: Start: 01-23-2017 End: 03-13-2017 Echocardiography Echocardiogram (complete) [facility] Work Phone: Start: 01-23-2017 End: 01-23-2017 Electrocardiogram, complete EKG (In office) [facility] Work Phone: Start: 01-23-2017 End: 03-13-2017 Follow Up Appt 6 months Follow Up Appt 6 months [facility] Work Phone: Start: 01-23-2017 End: 01-23-2017 Follow Up BP Check Follow Up BP Check [facility] Work Phone: Start: 01-23-2017 End: 03-13-2017 Pacer Clinic Pacer Clinic [facility] Work Phone: Start: 12-16-2016 End: 01-22-2017 *Hepatic Function Panel *Hepatic Function Panel [facility] Work Phone: Start: 12-16-2016 End: 01-22-2017 Lipid 1996 panel *Lipid Profile CC PCP [facility] Work Phone: Start: 12-16-2016 End: 01-22-2017 *Hepatic Function Panel *Hepatic Function Panel [facility] Work Phone: Start: 12-16-2016 End: 01-22-2017 Lipid panel [AGGREGATE] *Lipid Profile CC PCP [facility] Work Phone: Start: 11-27-2015 End: 12-16-2016 *Hepatic Function Panel *Hepatic Function Panel [facility] Work Phone: Start: 11-27-2015 End: 12-16-2016 Lipid 1996 panel *Lipid Profile CC PCP [facility] Work Phone: Start: 11-27-2015 End: 12-16-2016 *Hepatic Function Panel *Hepatic Function Panel [facility] Work Phone: Start: 11-27-2015 End: 12-16-2016 Lipid panel [AGGREGATE] *Lipid Profile CC PCP [facility] Work Phone: Start: 01-09-2015 End: 02-16-2015 Follow Up Appt 3 months Follow Up Appt 3 months [facility] Work Phone: Start: 01-09-2015 [...] 06-01-2014 End: 01-04-2015 Pacer Clinic Pacer Clinic [facility] Work Phone: Start: 06-01-2014 End: 01-04-2015 Follow Up Appt 3 months Follow Up Appt 3 months [facility] Work Phone: Start: 06-01-2014 End: 01-04-2015 Pacer Clinic Pacer Clinic [facility] Work Phone: Start: 01-13-2014 End: 03-07-2014 *Hepatic Function Panel *Hepatic Function Panel [facility] Work Phone: Start: 01-13-2014 End: 01-13-2014 DJN DJN [facility] Work Phone: Start: 01-13-2014 End: 01-13-2014 Follow Up Appt 1 year Follow Up Appt 1 year [facility] Work Phone: Start: 01-13-2014 End: 01-13-2014 Follow Up Appt 3 months Follow Up Appt 3 months [facility] Work Phone: Start: 01-13-2014 End: 03-07-2014 Lipid 1996 panel *Lipid Profile CC PCP [facility] Work Phone: Start: 01-13-2014 End: 01-13-2014 Pacer Clinic Pacer Clinic [facility] Work Phone: Start: 01-13-2014 End: 03-07-2014 *Hepatic Function Panel *Hepatic Function Panel [facility] Work Phone: Start: 01-13-2014 End: 01-13-2014 DJN DJN [facility] Work Phone: Start: 01-13-2014 End: 01-13-2014 Follow Up Appt 1 year Follow Up Appt 1 year [facility] Work Phone: Start: 01-13-2014 End: 01-13-2014 Follow Up Appt 3 months Follow Up Appt 3 months [facility] Work Phone: Start: 01-13-2014 End: 03-07-2014 Lipid panel [AGGREGATE] *Lipid Profile CC PCP [facility] Work Phone: Start: 01-13-2014 End: [...] Lipid 1996 panel *Lipid Profile CC PCP [facility] Work Phone: Start: 07-16-2013 End: 12-29-2013 *Hepatic Function Panel *Hepatic Function Panel [facility] Work Phone: Start: 07-16-2013 End: 12-29-2013 Lipid panel [AGGREGATE] *Lipid Profile CC PCP [facility] Work Phone: Start: 05-21-2013 End: 12-29-2013 Follow Up Appt 3 months Follow Up Appt 3 months [facility] Work Phone: Start: 05-21-2013 [...] 3 months Follow Up Appt 3 months [facility] Work Phone: Start: 02-17-2013 End: 12-29-2013 Pacer Clinic Pacer Clinic [facility] Work Phone: Start: 02-17-2013 End: 12-29-2013 Follow Up Appt 3 months Follow Up Appt 3 months [facility] Work Phone: Start: 02-17-2013 End: 12-29-2013 Pacer Clinic Pacer Clinic [facility] Work Phone: Start: 10-13-2012 End: 10-13-2012 Follow Up Appt 6 months Follow Up Appt 6 months [facility] Work Phone: Start: 10-13-2012 End: 10-13-2012 Follow Up Appt 6 months Follow Up Appt 6 months [facility] Work Phone: Start: 04-20-2012 End: 04-28-2012 *BMP *BMP [facility] Work Phone: Start: 04-20-2012 End: 04-28-2012 *CBC with Differential *CBC with Differential [facility] Work Phone: Start: 04-20-2012 End: 09-22-2012 *Hepatic Function Panel *Hepatic Function Panel [facility] Work Phone: Start: 04-20-2012 End: 04-20-2012 Follow Up Appt 6 months Follow Up Appt 6 months [facility] Work Phone: Start: 04-20-2012 End: 10-13-2012 Lipid 1996 panel *Lipid Profile [facility] Work Phone: Start: 04-20-2012 End: 10-13-2012 Magnesium mass conc *Magnesium [facility] Work Phone: Start: 04-20-2012 End: 04-28-2012 *BMP *BMP [facility] Work Phone: Start: 04-20-2012 End: 04-28-2012 *CBC with Differential *CBC with Differential [facility] Work Phone: Start: 04-20-2012 End: 09-22-2012 *Hepatic Function Panel *Hepatic Function Panel [facility] Work Phone: Start: 04-20-2012 End: 04-20-2012 Follow Up Appt 6 months Follow Up Appt 6 months [facility] Work Phone: Start: 04-20-2012 End: 10-13-2012 Lipid panel [AGGREGATE] *Lipid Profile [facility] Work Phone: Start: 04-20-2012 End: 10-13-2012 Magnesium *Magnesium [facility] Work Phone: Patient Education HEART%20HEALTHY%20DIET [facility] Work Phone: Payers Date Payer Category Payer Unknown [id number] Unknown Social History Date Type Detail Facility [facility] Tobacco smoking consumption unknown [facility] Clinical Note 04-10-2021 Note Date & Type Note Facility 04-10-2021 Note Patient Outreach ([place] [facility]) FRANCIS MORTON ([id number]) 1955 M Date Time Provider Department 04/10/21 [...] tests Date Reviewed: 09/04/2020 Reviewed by: Ngozi ([facility]) AINSLEY Patrick - Fully Assessed Visit Diagnoses:Medication management [Z79.899] Hyperlipidemia LDL goal <100 [E78.5] Order(s):BASIC METABOLIC PNL [SQBMP] Order #: [id number] FUTURE LIPID PANEL BASIC [SQLIPB] Order #: [id number] FUTURE TSH BLD [SQTSH] Order #: [id number] FUTURE CBC [SQCBC] Order #: [id number] FUTURE AST/SGOT BLD [SQAST] Order #: [id number] FUTURE ALT/SGPT [SQALT] Order #: [id number] FUTURE MAGNESIUM BLD [SQMG1] Order #: [id number] FUTURE Prescriptions as of 04/10/2021 Sig: MELOXICAM [...] abuse [F10.10] 10/16/2012 06/23/2013 Alcoholism /alcohol abuse [CIB1048] 06/23/2013 Tobacco abuse [Z72.0] 10/31/2014 Paroxysmal atrial fibrillation (HCC) [I48.0] 11/13/2017 Hyperlipidemia LDL goal <100 [E78.5] 11/13/2017 Physical debility [R53.81] 12/17/2019 Situational depression [F43.21] 12/17/2019 Generalized anxiety disorder with panic attacks*09/04/2020 Dysfunctional grieving [F43.21] 09/04/2020 Encounter Status:Closed by JANNETH CHACON on 04/13/21 [facility] Summary Purpose Family History No Family History [...] DATE CREATED AUTHOR AUTHOR'S ORGANIZ ATION 12/18/2021 [facility] DATE CREATED AUTHOR AUTHOR'S ORGANIZ ATION 05/15/2022 [facility] <item><item> Privacy Markings (unrecogniz ed section and [...] BE BASED ON THE PRIMARY CLINICAL RECORDS. [facility] [employer] [facility]. provides no warranty or guarantee of the accuracy or completeness of information in this document.
[2024-01-10 01:51] VITALS: PULSE 74; RESP 18
[2024-01-10] MEDS: Ipratropium/Albuterol Sulfate 3 ML AMPUL.NEB INHALATION ×3 (01:51→13:58)
[2024-01-10] MEDS: Meropenem 1 GM in 0.9% Normal Saline (100mL MB+) 100 ML IV ×2 (04:54→13:33)
[2024-01-10] MEDS: Menthol/Lanolin/Calamine/Znox 113 GM Tube 1 APPLIC TOPICAL (04:54)
[2024-01-10 04:56] VITALS: BP 111/63; PULSE 91; RESP 18; TEMP 36.6; O2SAT 93
[2024-01-10 07:18] VITALS: PULSE 76; RESP 18
[2024-01-10] MEDS: Potassium Chloride Oral Tablet 20 MEQ 40 MEQ PO (08:35)
[2024-01-10] MEDS: Amiodarone 200 MG Tablet PO (08:36)
[2024-01-10] MEDS: Pantoprazole Sodium 40 MG Tablet PO (08:36)
[2024-01-10] MEDS: Furosemide 40 MG Tablet PO (08:36)
[2024-01-10] MEDS: Heparin Injection (Vial) 5,000 UNIT/ML VIAL 5000 UNIT SC (08:37)
[2024-01-10 09:03] VITALS: BP 126/71; PULSE 96; RESP 16; TEMP 36.6; O2SAT 94
[2024-01-10 11:16] VITALS: BP 106/74; PULSE 109; RESP 16; TEMP 36.5; O2SAT 98
[2024-01-10] MEDS: Lactulose 20 GM/30 ML UDC 10 GM PO (13:26)
[2024-01-10] MEDS: Ensure Plus High Protein 120 ML LIQUID PO (13:30)
[2024-01-10 13:58] VITALS: PULSE 77; RESP 19
--- NOTE | 2024-01-10 14:26 | PCM.DC ---
Discharge Instructions Diet Discharge Diet: No restrictions Activity Discharge Activity: No Restrictions Weight Bearing Status: Full weight bearing Follow Up Care Test Results: Test results from this visit will be discussed in further detail at your follow-up appointment, if applicable. Discharge Plan Admission Admit Date/Time: 12/31/23 14:57 Primary Reason for Your Visit: lethargy and altered mental status Attending Provider: Farhan Salvador Primary Care Provider: Rashard Gandhi Consulting Providers: Aidan Ames; Adrian Melo; Sarah Kathleen; Rodrigo Shelton; Avani Hudson; Elidia Chua; Yoko Fontana PACKAGING LINE OPERATOR Discharge Orders/Prescriptions Prescriptions: New furosemide 40 mg Tablet 40 mg PO DAILY Qty: 0 0RF pantoprazole 40 mg Tablet,Delayed Release (Dr/Ec) 40 mg PO BID Qty: 0 0RF Continued amiodarone 200 mg tablet 200 mg PO DAILY clopidogrel 75 mg tablet 75 mg PO DAILY acetaminophen 325 mg tablet 650 mg PO Q4H PRN (Reason: PAIN ) sodium chloride 1,000 mg tablet,soluble 1,000 mg PO DAILY meloxicam 15 mg tablet 15 mg PO DAILY paroxetine HCl 30 mg tablet 30 mg PO QHS albuterol sulfate 2.5 mg /3 mL (0.083 %) Solution For Nebulization 2.5 mg inhalation Q2H PRN (Reason: SHORTNESS OF BREATH/WHEEZING ) lidocaine HCl [Lidocaine Viscous] 2 % Solution 20 ml PO Q4H Rx Instructions: TAKE 20MLS BY MOUTH EVERY 4 HOURS FOR 7 DAYS. Culturelle 15 billion cell capsule, sprinkle 1 cap PO DAILY lactulose 10 gram/15 mL (15 mL) solution 10 g PO 1000 trazodone 50 mg Tablet 150 mg PO QHS lactulose 10 gram/15 mL solution 15 ml PO 1400,2000 Rx Instructions: Goal to have 2-3 soft bowel movements per day Angel 7-7-1.5 gram powder in packet 1 ea PO BID alum-mag hydroxide-simeth [Alcira-Lanta] 200-200-20 mg/5 mL suspension 15 ml PO Q4H PRN (Reason: INDIGESTION ) trolamine salicylate [Pain Relief (trolamine salicy)] 10 % cream 1 applic TOPICAL BID Rx Instructions: APPLY ONE APPLICATION TOPICALLY TO BOTH KNEES TWICE DAILY FOR PAIN promethazine 12.5 mg tablet 12.5 mg PO Q6H PRN (Reason: NAUSEA/VOMITING ) Prevagen Extra Strength 20 mg tablet 20 mg PO DAILY sennosides-docusate sodium [Stool Softener-Stimulant Laxat] 8.6-50 mg Tablet 2 tab PO BID Qty: 0 0RF thiamine HCl (vitamin B1) [Vitamin B-1] 100 mg Tablet 100 mg PO BREAKFAST Qty: 0 0RF nystatin [Nyamyc] 100,000 unit/gram Powder 1 applic topical BID Qty: 0 0RF Protocol: *Topical Application Instructions APPLICATION INSTRUCTIONS: groin Discontinued metoprolol succinate 25 mg tablet extended release 24 hr 12.5 mg PO DAILY potassium chloride 20 mEq tablet,ER particles/crystals 20 meq PO DAILY furosemide 20 mg tablet 20 mg PO DAILY Referrals / Follow Up: Rashard Gandhi MD [Primary Care Provider] - Disposition Disposition (needs filled in before D/C Order can be placed): Hospice in Medical Facility
--- NOTE | 2024-01-10 14:43 | PCM.DC.SUM ---
Providers Date of Admission: 12/31/23 Date of Discharge: 01/10/24 Primary Care Physician: Dr. Rashard Gandhi MD Consultations 12/31/23 19:38 Consult: Gastroenterology Routine Consulting Provider: [facility] Reason for Consult: ascites EMERGENT Consult: No Notified: Yes Date Notified: 12/31/23 Time Notified: 14:00 Method of Notification: Verbal 01/01/24 08:14 Consult: Onc/Wound/dealer compliance representative Routine Comment: Reason for Consult:: decubitus ulcer coccyx, right heel 01/02/24 13:37 Consult: Infectious Disease Routine Consulting Provider: Adrian Melo Reason for Consult: leucocytosis, pneumonia EMERGENT Consult: No Notified: Yes Date Notified: 01/02/24 Time Notified: 13:37 Method of Notification: Verbal 01/07/24 17:19 Consult: Hospice / Palliative Care Routine Consulting Provider: [facility] Reason for Consult: decomp cirrhosis, adult FTT, hospice consult EMERGENT Consult: No Notified: Yes Date Notified: 01/07/24 Time Notified: 17:20 Method of Notification: Answering Service Reason For Visit: PNEUMONIA, PLEURAL EFFUSIONS Diagnosis Discharge Diagnosis (1) DNR (do not resuscitate): Status: Acute Code(s): Z66 - Do not resuscitate (2) SBP (spontaneous bacterial peritonitis): Status: Acute Code(s): K65.2 - Spontaneous bacterial peritonitis (3) Decompensation of cirrhosis of liver: Status: Acute Code(s): K72.90 - Hepatic failure, unspecified without coma; K74.60 - Unspecified cirrhosis of liver Medications at Discharge Home Medications amiodarone 200 mg tablet 200 mg PO DAILY IRREGULAR HEARTBEAT 05/25/22 clopidogrel 75 mg tablet 75 mg PO DAILY BLOOD THINNER 05/25/22 acetaminophen 325 mg tablet 650 mg PO Q4H PRN PAIN 10/05/23 sodium chloride 1,000 mg soluble tablet 1,000 mg PO DAILY SUPPLEMENT 10/05/23 Prevagen Extra Strength 20 mg PO DAILY VITAMIN DEFICIENCY 12/22/23 aluminum-mag hydroxide-simethicone 200 mg-200 mg-20 mg/5 mL oral susp (Alcira-Lanta) 15 ml PO Q4H PRN INDIGESTION 12/22/23 promethazine 12.5 mg tablet 12.5 mg PO Q6H PRN NAUSEA/VOMITING 12/22/23 trolamine salicylate 10 % topical cream (Pain Relief (trolamine salicylate)) 1 applic topical BID KNEE PAIN 12/22/23 nystatin 100,000 unit/gram topical powder (Nyamyc) 1 applic topical BID FUNGAL INFECTION #0 grams 12/27/23 sennosides 8.6 mg-docusate sodium 50 mg tablet (Stool Softener-Stimulant Laxative) 2 tab PO BID CONSTIPATION #0 tabs 12/27/23 thiamine HCl (vitamin B1) 100 mg tablet (Vitamin B-1) 100 mg PO BREAKFAST SUPPLEMENT #0 tabs 12/27/23 Lactobacillus rhamnosus GG 15 billion cell sprinkle capsule (Culturelle) 1 cap PO DAILY GUT HEALTH 12/31/23 albuterol sulfate 2.5 mg/3 mL (0.083 %) solution for nebulization 2.5 mg inhalation Q2H PRN SHORTNESS OF BREATH/WHEEZING 12/31/23 arginine 7 gram-glutamine 7 gram-calcium HMB 1.5 gram oral powder pack (Angel) 1 ea PO BID WOUND HEALING 12/31/23 lactulose 10 gram/15 mL (15 mL) oral solution 10 g PO 1000 HYPO-OSMALITY 12/31/23 lactulose 10 gram/15 mL oral solution 15 ml PO 1400,2000 HYPO-OSMALITY 12/31/23 lidocaine HCl 2 % mucosal solution (Lidocaine Viscous) 20 ml PO Q4H SORE THROAT/MOUTH 12/31/23 meloxicam 15 mg tablet 15 mg PO DAILY ARTHRITIS 12/31/23 paroxetine HCl 30 mg tablet 30 mg PO QHS DEPRESSION 12/31/23 trazodone 50 mg tablet 150 mg PO QHS SLEEP 12/31/23 furosemide 40 mg tablet 40 mg PO DAILY #0 tabs 01/10/24 pantoprazole 40 mg tablet,delayed release 40 mg PO BID #0 tabs 01/10/24 Hospital Course Operations None Procedures EKG, Paracentesis, Transthoracic echo and - (CT brain without contrast, chest x-ray, CT chest abdomen pelvis with IV contrast) Summary of Care Provided Minutes Spent on Discharge: 35 Hospital Course: Patient is a 68-year-old male who presented to [facility] ED on 12/31/2023 with lethargy and altered mental status. Hospital course as noted below. Patient was ultimately transitioned to [facility] status on 01/07. Discharged to inpatient hospice unit on 01/09. 1. DNRCC status ? See my note from 01/06 for more details about conversation with patient's brother Donnell who is official HCPOA for patient. Given patient's poor prognosis due to multiple medical issues as noted below, decision was made on morning of 01/07 to transition patient to DNR CC status. Hospice consulted. Patient discharged to inpatient hospice unit on 01/09. 2. Acute metabolic encephalopathy, improving ? Unclear etiology. Has known history of mild cognitive dysfunction suspected secondary to history of alcohol use disorder. Current altered mentation could be secondary to Warnicke's encephalopathy. Could also be secondary to infection as noted below. ? Mildly improved from admission, stable. 3. Decompensated alcoholic cirrhosis with ascites, spontaneous bacterial peritonitis, persistent leukocytosis ? S/p paracentesis on with 2900 mL of dark werner-colored fluid removed. Showed SBP with neutrophil count of 515. Fluid cultures and blood cultures negative thus far. ? Suspect that persistent leukocytosis may be secondary to decompensated alcoholic cirrhosis. ? Repeat paracentesis on 01/06 with radiology, 2400 mL of dark werner-colored fluid removed. Fluid studies pending. ? De-escalated from IV Lasix 40 mg daily to p.o. Lasix 40 mg daily on 01/05 as creatinine was slowly worsening. Continue lactulose. Monitor kidney function daily. ? Discontinued meropenem on 01/07. ? GI and infectious disease followed. 4. Acute distal descending and sigmoid colitis ? Recent CT abdomen/pelvis on 12/22 showed multifocal thickening of chandler of distal descending and sigmoid colon possibly representing colitis. ? GI followed as above. Antibiotics discontinued as noted above. 5. Gastritis and gastric ulcers ? EGD on 01/01 showed acute gastritis with oozing gastric ulcers that were treated with heater probe. ? Hemoglobin has remained stable between 12-13 since admission. ? Continue p.o. PPI twice daily. 6. Worsening HFrEF, history of CAD ? Known history of HFrEF, last echo in 05/2022 showed EF 35%, stage I diastolic dysfunction, mildly dilated LV. ? Noted to have moderate-sized bilateral pleural effusions on chest imaging on admission. ? Echo showed EF 20%, stage I diastolic dysfunction, severe global hypokinesis of LV. ? Discussed with on-call cardiology, no active intervention recommended for drop in EF. ? Continue home Toprol and Plavix. Continue p.o. Lasix as noted above. 7. Debility ? Presented from care home facility. PT/OT/case management followed. Hospice on discharge. Chronic medical conditions: ? Hypertension, hyperlipidemia: Continue home metoprolol and statin. ? History of alcohol use disorder with resultant cognitive dysfunction: Continue thiamine. ? History of pulmonary nodule: Stable. Outpatient follow-up with pulmonology. ? History of ventricular tachycardia s/p ICD placement: Continue home amiodarone. Total clinical time spent by myself addressing the patient's medical issues, reviewing all the data, and collaborating with patient's care team: 35 minutes. Physical Exam Const alert, no apparent distress and average body habitus Constitutional Narrative: Elderly male, chronically ill-appearing, fatigued, making appropriate eye contact but has weak voice and is difficult to understand, otherwise laying comfortably in bed and in no acute distress. General Appearance: cooperative and comfortable HEENT normocephalic, head/scalp atraumatic, hearing grossly normal bilaterally and nasal mucous membranes and turbinates normal Eyes PERRL, EOMs intact bilaterally and conjunctivae normal Neck full ROM Chest inspection of chest normal Resp normal respiratory effort, normal air movement, no use of accessory muscles and clear to auscultation bilaterally Cardio regular rate, regular rhythm, no murmurs and peripheral pulses 2+ throughout GI GI Narrative: Mildly distended, soft, nontender to palpation. Back/Spine normal ROM Extremity normal to inspection, full ROM and no pedal edema Skin no rashes or lesions noted Neuro no focal motor deficits and no sensory deficits noted Medical Records Data Medical Nutrition Assessment Dietitian: Malnutrition Criteria Met Start: 01/01/24 11:38 Freq: Status: Active Protocol: Document 01/10/24 12:22 RMA (Rec: 01/10/24 12:23 RMA [id number]) Nutrition Malnutrition Evidence of Malnutrition Exists Yes Malnutrition (moderate): Acute Illness/Injury Evidenced By Suboptimal Energy Intake ( Moderate),Physical Changes ( Moderate) Clinical Problem Acute Disease or Injury Related Malnutrition Etiology acute on likely chronic moderate malnutrition related to inadequate energy intake Signs/Symptoms as evidenced by estimated PO intake meeting <75% of estimated energy needs > 1 week, Moderate muscle wasting/ fat loss evident per physical exam in orbital, clavicle, acromion, and temporal areas Status Active Problem Recommendation Dietitian Recommendations/Changes Continue liberalized regular diet with consistency/texture as per CARDIOPULMONARY TECHNOLOGIST; pt is a total feed at meals. Will continue Angel BID and Ensure Plus High Protein 120mL 4x/day with medpass as tolerated. Hospice referral noted. Weight / BMI Weight Weight: 70 kg Body Mass Index (BMI) 19.8 ABG / Lab / Microbiology Data 01/09/24 05:13 01/09/24 05:13 Laboratory: Laboratory Results - last 24 hr 01/05/24 16:30: Urine Total Protein 63.4, Urine Albumin 29.5, U [id number] 2.5, U [id number] 12.9, U Beta Globulin 31.6, U Gamma Globulin 23.5, Ur Immunofix PEP Note Comment Microbiology: Microbiology 01/01/24 10:50 Fluid - Ascites Gram Stain - Final 01/01/24 10:50 Fluid - Ascites Body Fluid Culture - Final Culture exhibits no growth. 01/01/24 10:50 Fluid - Ascites Anaerobic Culture - Final No growth in 5 days. 12/31/23 13:35 Blood Culture (Wb) - Left Hand Blood Culture - Final No growth in 5 days. 12/31/23 13:17 Blood Culture (Wb) - Anticubital Right Blood Culture - Final No growth in 5 days. 12/31/23 13:35 Mucosa - Nose SARS-CoV-2, Influenza & RSV (PCR) - Final D/C Instructions Discharge Diet: No restrictions Weight Bearing Status: Full weight bearing Meaningful Use Info Meaningful Use Diagnoses (Choose all that apply): None applicable Discharge Plan Admission Admit Date/Time: 12/31/23 14:57 Primary Reason for Your Visit: lethargy and altered mental status Attending Provider: Farhan Salvador Primary Care Provider: Rashard Gandhi Consulting Providers: Aidan Ames; Adrian Melo; Sarah Kathleen; Rodrigo Shelton; Avani Hudson; Elidia Chua; Yoko Fontana DIRECTOR OF INTERCOLLEGIATE ATHLETICS Discharge Orders/Prescriptions Prescriptions: New furosemide 40 mg Tablet 40 mg PO DAILY Qty: 0 0RF pantoprazole 40 mg Tablet,Delayed Release (Dr/Ec) 40 mg PO BID Qty: 0 0RF Continued amiodarone 200 mg tablet 200 mg PO DAILY clopidogrel 75 mg tablet 75 mg PO DAILY acetaminophen 325 mg tablet 650 mg PO Q4H PRN (Reason: PAIN ) sodium chloride 1,000 mg tablet,soluble 1,000 mg PO DAILY meloxicam 15 mg tablet 15 mg PO DAILY paroxetine HCl 30 mg tablet 30 mg PO QHS albuterol sulfate 2.5 mg /3 mL (0.083 %) Solution For Nebulization 2.5 mg inhalation Q2H PRN (Reason: SHORTNESS OF BREATH/WHEEZING ) lidocaine HCl [Lidocaine Viscous] 2 % Solution 20 ml PO Q4H Rx Instructions: TAKE 20MLS BY MOUTH EVERY 4 HOURS FOR 7 DAYS. Culturelle 15 billion cell capsule, sprinkle 1 cap PO DAILY lactulose 10 gram/15 mL (15 mL) solution 10 g PO 1000 trazodone 50 mg Tablet 150 mg PO QHS lactulose 10 gram/15 mL solution 15 ml PO 1400,2000 Rx Instructions: Goal to have 2-3 soft bowel movements per day Angel 7-7-1.5 gram powder in packet 1 ea PO BID alum-mag hydroxide-simeth [Alcira-Lanta] 200-200-20 mg/5 mL suspension 15 ml PO Q4H PRN (Reason: INDIGESTION ) trolamine salicylate [Pain Relief (trolamine salicy)] 10 % cream 1 applic TOPICAL BID Rx Instructions: APPLY ONE APPLICATION TOPICALLY TO BOTH KNEES TWICE DAILY FOR PAIN promethazine 12.5 mg tablet 12.5 mg PO Q6H PRN (Reason: NAUSEA/VOMITING ) Prevagen Extra Strength 20 mg tablet 20 mg PO DAILY sennosides-docusate sodium [Stool Softener-Stimulant Laxat] 8.6-50 mg Tablet 2 tab PO BID Qty: 0 0RF thiamine HCl (vitamin B1) [Vitamin B-1] 100 mg Tablet 100 mg PO BREAKFAST Qty: 0 0RF nystatin [Nyamyc] 100,000 unit/gram Powder 1 applic topical BID Qty: 0 0RF Protocol: *Topical Application Instructions APPLICATION INSTRUCTIONS: groin Discontinued metoprolol succinate 25 mg tablet extended release 24 hr 12.5 mg PO DAILY potassium chloride 20 mEq tablet,ER particles/crystals 20 meq PO DAILY furosemide 20 mg tablet 20 mg PO DAILY Referrals / Follow Up: Rashard Gandhi MD [Primary Care Provider] - Disposition Disposition (needs filled in before D/C Order can be placed): Hospice in Medical Facility Charges/Coding Visit Charges Inpatient E&M: 27104 Disch Hosp >30min
--- NOTE | 2024-01-10 15:29 | CASEMGMT ---
Social Work Pt will go to the in hospice unit today. SW sent update to [place] in [facility]. JORDAN Morataya
--- NOTE | 2024-01-10 16:21 | NURSING ---
ambulance taking pt to hospice
[2024-01-13 07:45] LABS: Pathologist Review Reviewed
== END 2024-01-10 16:15 | disposition hospice, inpatient (51) | DRG 193 ==
LOC: ED 12:37 → PCU 17:12 → MS3 01-10 00:35 → PCU 01-10 00:35
PROVIDERS: Internal Medicine Gastroenterology; Student in an Organized Health Care Education/Training Program; Admitting Provider Internal Medicine; Emergency Provider Emergency Medicine; PCP Internal Medicine; Visit Provider Hospitalist
PROC: 0DJ08ZZ Inspection of Upper Intestinal Tract, Via Natural or Artificial Opening Endoscopic (ICD-10-PCS; CPT 43235; principal; 2024-01-02 06:55)
DX: J18.9 Pneumonia, unspecified organism (principal); K65.2 Spontaneous bacterial peritonitis; I50.23 Acute on chronic systolic (congestive) heart failure; G93.41 Metabolic encephalopathy; K25.4 Chronic or unspecified gastric ulcer with hemorrhage; E44.0 Moderate protein-calorie malnutrition; D68.9 Coagulation defect, unspecified; J44.0 Chronic obstructive pulmonary disease with (acute) lower respiratory infection; J96.11 Chronic respiratory failure with hypoxia; J94.8 Other specified pleural conditions; J90 Pleural effusion, not elsewhere classified; Z68.1 Body mass index [BMI] 19.9 or less, adult; L89.139 Pressure ulcer of right lower back, unspecified stage; I11.0 Hypertensive heart disease with heart failure; K72.90 Hepatic failure, unspecified without coma; K70.31 Alcoholic cirrhosis of liver with ascites; D50.9 Iron deficiency anemia, unspecified; L89.619 Pressure ulcer of right heel, unspecified stage; I25.10 Atherosclerotic heart disease of native coronary artery without angina pectoris; E78.5 Hyperlipidemia, unspecified; I25.5 Ischemic cardiomyopathy; K31.7 Polyp of stomach and duodenum; K52.9 Noninfective gastroenteritis and colitis, unspecified; Z95.5 Presence of coronary angioplasty implant and graft; Z87.891 Personal history of nicotine dependence; Z66 Do not resuscitate; R53.81 Other malaise; Z79.02 Long term (current) use of antithrombotics/antiplatelets; Z51.5 Encounter for palliative care
CPT/HCPCS: 36415; 36569; 49083; 70450; 71045; 71250; 74176; 80048; 80053; 80076; 80320; 82085; 82105; 82140; 82150; 82550; 82607; 82746; 82784; 82787; 82945; 83516; 83605; 83615; 83690; 83880; 83986; 84157; 84165; 84166; 84443; 85025; 85027; 85610; 85652; 85730; 86140; 86225; 86235; 86255; 86256; 86301; 87040; 87070; 87075; 87205; 87631; 88108; 88305; 88313; 88341; 88342; 89050; 92526; 92610; 93005; 93306; 94640; 97110; 97162; 97166; 97530; 97802; 97803; 99285; 99406; J2185; J7040; J7050; J7120; Q9957; A4216; C8929; G0480; J1940; J2405